=== PATIENT | female | born 1950 | race Caucasian/White ===

== ENCOUNTER 2016-10-21 10:50 | Inpatient (IN) | payer MEDICARE, BC ==
[~2016-10-21] VITALS: Ht 162.6 cm; Wt 80.3 kg
[2016-10-21] VITALS (8 sets, daily range): BP systolic 123–164; BP diastolic 47–72
[~2016-10-21 10:50] MED LIST: ACET-704 PO; ACET1TAB33 PO; ACET500T33 PO; AMLO25PO MC; AMLO5TAB2 PO; ASPI-482 PO; CALC667T PO; CRAN200C2 PO; CRESTOR5 MG PO; DIPH25TA64 PO; FURO40TA4 PO; GABA-586 PO; HYDR-2758 PO; INSU100V8 SQ; LISI40TA PO; METO2.5T PO; POTA20TA12 PO
[2016-10-21] MEDS ORDERED: ASPIRIN CHEWABLE 81 MG TABLET. PO ONE (11:00)
--- NOTE | 2016-10-21 11:13 | EKG ---
[facility] [address] [place] [address] Test Date: 2016-10-21 Test Time: 10:55:26 Pat Name: IDANE CARLSON Department: Room: Gender: F Reuse Technician: SHANTA : 1950 Requested By: SCOTT DEJESUS Order Number: [id number] Reading MD: Lalit Gillis Measurements Intervals [place] Rate: 84 P: 25 ID: [id number] QRS: 14 QRSD: 106 T: 154 QT: 374 QTc: 445 Interpretive Statements SINUS RHYTHM LOW LIMB LEAD VOLTAGE QRS(T) CONTOUR ABNORMALITY CONSISTENT WITH ANTEROSEPTAL INFARCT PROBABLY OLD ST & T ABNORMALITY, CONSIDER HIGH LATERAL ISCHEMIA OR LEFT VENTRICULAR STRAIN INFERIOR ISCHEMIA OR LEFT VENTRICULAR STRAIN ABNORMAL ECG RI6.01 Compared to ECG 08/18/2013 13:59:22 Left-axis deviation no longer present Electronically Signed On 10-21-2016 17:19:23 CDT by Lalit Gillis
--- NOTE | 2016-10-21 11:29 | RAD ---
AP chest radiograph 10/21/2016 Clinical indication: Chest pain. Comparison: 07/03/2010 chest radiograph Findings: Development of moderate bilateral pleural effusions and adjacent patchy opacities, likely atelectasis. No pneumothorax. Partial visualization of lower ACDF hardware. Heart size is obscured by the effusions. Left upper extremity vascular stent. Impression: Development of moderate bilateral pleural effusions and adjacent patchy opacities, likely atelectasis.
[2016-10-21 11:51] LABS: BASO # 0.1 x10^3/uL (0.0-0.2); BASO % 1 % (0-3); EOS % 3 % (0-3); LYMPH # 1.8 x10^3/uL (1.0-4.8); LYMPH % 20 % (24-48); MEAN CORPUSCULAR HEMOGLOBIN 30 pg (25-35); MEAN CORPUSCULAR HGB CONC 33 g/dL (31-37); MEAN CORPUSCULAR VOLUME 92 fL (79-100); MONO % 6 % (0-9); NEUT % 70 % (31-73); PLATELET COUNT 242 x10^3/uL (140-400); RED BLOOD COUNT 2.13 x10^6/uL (3.50-5.40); RED CELL DISTRIBUTION WIDTH 15.3 % (11.5-14.5); WHITE BLOOD COUNT 9.3 x10^3/uL (4.0-11.0)
[2016-10-21 11:58] LABS: HEMATOCRIT 19.6 % (36.0-47.0); HEMOGLOBIN 6.4 g/dL (12.0-15.5)
[2016-10-21 12:04] LABS: CALCIUM 8.8 mg/dL (8.5-10.1); CREATININE 6.7 mg/dL (0.6-1.0); GFR 6.2; POTASSIUM 5.3 mmol/L (3.5-5.1)
[2016-10-21 12:09] LABS: DIRECT BILIRUBIN 0.1 mg/dL (0.0-0.2); TOTAL BILIRUBIN 0.2 mg/dL (0.2-1.0); TOTAL PROTEIN 5.6 g/dL (6.4-8.2)
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
--- NOTE | 2016-10-21 13:19 | ACF ---
Admit Criteria Forms Admit Criteria Forms Admit Criteria Forms CHEST PAIN Clinical Indications for Admission to Inpatient Care (Place 'X' for any and all applicable criteria): Admission is indicated for chest pain and ANY ONE of the following(1)(2)(3)(4)(5 ): [ ]I. Angina with acute coronary syndrome (Also use Myocardial Infarction or Angina guideline) [ ]II. Hemodynamic instability [ ]III. Angina needing acute intervention as indicated by ALL of the following( 11)(12): [ ]a) Unstable angina is present as indicated by angina that is ANY ONE of the following: [ ]i) New onset [ ]ii) Nocturnal [ ]iii) Prolonged at rest [ ]iv) Progressive [ ]b) Angina warrants acute intervention as indicated by ANY ONE of the following: [ ]i) Recurrent angina (e.g, not responding as previously to treatment) [ ]ii) Angina at rest or with low-level activities despite initial medical therapy [ ]iii) New or presumably new ST-segment depression on ECG [ ]iv) Signs or symptoms of heart failure (eg, dyspnea, pulmonary edema) [ ]v) New or worsening mitral regurgitation [ ]vi) Hemodynamic instability [ ]vii) Dangerous arrhythmia (eg, sustained ventricular tachycardia) [ ]viii) History of percutaneous coronary intervention within 6 months [ ]ix) History of coronary artery bypass graft surgery [ ]x) SCOTT risk score of 2 or greater[A] [ ]xi) History of Diabetes(14) [ ]xii) High-risk cardiac ischemia findings on noninvasive testing (e.g, echocardiogram, treadmill testing, nuclear scan) [ ]xiii) Chronic renal insufficiency (ie, estimated GFR less than 60 mL/min/1.732m) [ ]xiv) Left ventricular ejection fraction less than 40% [ X]IV. Evidence of IL (eg, cardiac biomarkers positive, ST-segment elevation on ECG) also use Myocardial Infarction Criteria Form. [ ]V. Pulmonary edema [ ]. Respiratory distress [ ]VII. Chest pain indicative of serious diagnosis other than coronary artery disease (eg, aortic dissection) [ ]VIII. Contraindications and/or Inappropriate clinical situations for Observational Care in patients with Chest Pain, when ANY ONE of the following is required: [ ]a) Patient with risk factor for pulmonary embolism, acute coronary syndrome and myocardial infarction (18) [ ]b) Patient with Pulmonary embolism require an average LOS of 4.3 days, therefore emergency department observation management is inappropriate 18,23 [ ]c) Painful condition/s in the elderly, have the highest rate of recidivism after emergency department observation management (10.8%) 20,21,22 [ ]d) Elevated cardiac biomarker requires intensive and exhaustive care (19) [ ]IX. General contraindications and/or Inappropriate clinical situations for Observational Care in patients with Chest Pain, when ANY ONE of the following is required: [ ]a) Prediction of prolongation of LOS based on ANY ONE of the following may be considered as a contraindication for observational care 2, 3, 4, 5, 6, 7, 8, 9, 10, 11 [ ]i) Age > 65 yrs. [ ]ii) Patient arriving by ambulance [ ]iii) Patient with high acuity [ ]iv) Patient requiring vital sign monitoring [ ]v) Patient on IV medication [ ]b) Systolic blood pressures 180mmHg 3,12 [ ]c) Patient with altered mental status including delirium and other alteration of consciousness, (3) [ ]d) Patient whose discharge disposition will be to a detention home or rehabilitation home should not be managed in Emergency Department Observation Unit. CMS rule requires 3 days hospital stay before such placement. 3,13 [ ]e) Patient with failure to thrive due to broad array of etiologies 3,16,17 [ ]f) Inability to ambulate 3,14 Extended stay beyond goal length of stay may be needed for (1)(28): [ ]a) Specific condition diagnosed after evaluation (eg, pulmonary embolism, aortic dissection) [ ]b) Unstable angina [ ]c) Continued suspicion of acute coronary syndrome with inability to complete needed cardiac evaluation (eg, patient clinically unable to undergo stress testing) [ ]d) Myocardial infarction (Contents from ANGINA and CHEST PAIN clinical indications for admission to inpatient care have been integrated in this form) The original [employer] content created by [employer] has been revised. The portions of the content which have been revised are identified through the use of italic text or in bold, and [email or web address] has neither reviewed nor approved the modified material. All other unmodified content is copyright [employer]. Please see references footnoted in the original [email or web address] edition 2016 WALKER MOTLEY Oct 21, 2016 13:19
[2016-10-21 13:20] LABS: CHOLESTEROL/HDL RATIO 3.7
[2016-10-21 13:28] LABS: INR 1.1 (0.8-1.1); PROTHROMBIN TIME PATIENT 13.7 SEC (11.7-14.0)
[2016-10-21 13:31] LABS: BILIRUBIN,URINE NEGATIVE (NEG); GLUCOSE,URINE 250 mg/dL (NEG); NITRITE,URINE NEGATIVE (NEG); PROTEIN,URINE >=300 mg/dL (NEG-TRACE); UROBILINOGEN,URINE 0.2 mg/dL (0.2 mg/dL)
[2016-10-21 13:51] LABS: BACTERIA,URINE MOD /HPF (0-FEW); RBC,URINE 0 /HPF (0-2); SQUAMOUS EPITHELIAL CELL,UR MOD /LPF; WBC,URINE OCC /HPF (0-4)
[2016-10-21] MEDS ORDERED: hydrALAZINE 20 MG/ML VIAL. IVP PRN ×2 (14:30→14:45)
[2016-10-21] MEDS ORDERED: DOCUSATE SODIUM 100 MG CAPSULE. PO PRN (14:45)
[2016-10-21] MEDS ORDERED: ACETAMINOPHEN 325 MG TABLET. PO PRN (14:45)
[2016-10-21] MEDS ORDERED: ONDANSETRON PF 4 MG/2 ML VIAL. IV PRN ×2 (14:45)
--- NOTE | 2016-10-21 14:55 | PDOC1 ---
History and Physical Date of Admission Date of Admission 10/21/16 Identification/Chief Complaint Chief Complaint sob, chest tightness Problems: Source Source: Chart review, Patient History of Present Illness History of Present Illness 66yo F, with h/o dm but not on meds any more, ESRD on HD TTSat, came to ER FOR SOB and chest pain. She missed her HD last thursday since mother in law , and today. She started to feel sob for 1 week, when she lies down and exertional walking from one room to another room. Current smoker 1ppd, NO HOME o2, with mild cough, not severe. Also feels chest tightness, not really pain, no diaphoresis, no N/V, no radiation. noticed bl leg edema worse recently. said seen card recently got echo, and was told stable but no details. no fever, chills, diarrhea. known anemia, but never know hb was low to todays number 6.4. Past Medical History Cardiovascular: HTN, Valve insufficiency, Other (Carotid artery disease) Pulmonary: No pertinent hx CENTRAL NERVOUS SYSTEM: Other (No pertinent history) GI: No pertinent hx Heme/Onc: Anemia NOS Hepatobiliary: No pertinent hx Psych: Depression Rheumatologic: No pertinent hx Infectious disease: No pertinent hx ENT: Allergic Rhinitis Renal/: Chronic renal failure Endocrine: Diabetes (2) Dermatology: No pertinent hx Past Surgical History Past Surgical History: Arthroscopy (right RTC repair), Cholecystectomy, Tonsillectomy, Hysterectomy, Other (anterior cervical fusion; lumbar decompression; LAV dialysis fistula 06/2015; 06/2016 left subclavian artery [employer] [facility] [facility]/ stent) Family History Family History: Diabetes Social History Smoke: 1 pack per day (>40 pk yr) ALCOHOL: none Drugs: None Current Medications Current Medications Current Medications Medications (Trade) Dose Ordered Sig/Liza Start Time Stop Time Status Last Admin Dose Admin Aspirin (Children'S Aspirin) 324 mg 1X ONCE 10/21/16 11:00 10/21/16 11:01 DC 10/21/16 11:49 324 MG Hydralazine HCl (Apresoline) 10 mg PRN Q4HRS PRN 10/21/16 14:30 Allergies Allergies Allergies Coded Allergies Type Severity Reaction Last Updated Verified ciprofloxacin Allergy Intermediate Rash 01/25/15 Yes morphine Adverse Reaction Severe makes her skin crawl 01/25/15 Yes oxycodone Adverse Reaction Severe makes her skin crawl 01/25/15 Yes adhesive Adverse Reaction Intermediate blisters 01/25/15 Yes ROS Review of System CONSTITUTIONAL: No fever or chills EYES: No recent changes SKIN: No rash or itching CARDIOVASCULAR: No chest pain, syncope, palpitations, or edema RESPIRATORY: No SOB or cough GASTROINTESTINAL: No nausea, vomiting or abdominal pain NEUROLOGICAL: No headaches or weakness ENDOCRINE: No cold or heat intolerance GENITOURINARY: No urgency or frequency of urination MUSCULOSKELETAL: No back pain or joint pain LYMPHATICS: No enlarged lymph nodes PSYCHIATRIC: No anxiety or depression Physical Exam Physical Exam GEN.: No apparent distress. Alert and oriented. HEENT: Head is normocephalic, atraumatic NECK: Supple. LUNGS: bl decreased bs HEART: RRR, S1, S2 present. Peripheral pulses intact ABDOMEN: Soft, nontender. Positive bowel sounds. EXTREMITIES: Without any cyanosis. bl leg 1+ pitting edema NEUROLOGIC: Normal speech, normal tone PSYCHIATRIC: Normal affect, normal mood. SKIN: No ulcerations Vitals Vitals Vital Signs Date Time Temp Pulse Resp B/P (MAP) Pulse Ox O2 Delivery O2 Flow Rate FiO2 10/21/16 13:28 72 20 135/64 (87) 94 Room Air 10/21/16 11:08 98.0 98.0 Labs Labs Laboratory Tests Test 10/21/16 11:40 10/21/16 13:22 White Blood Count 9.3 x10^3/uL (4.0-11.0) Red Blood Count 2.13 x10^6/uL (3.50-5.40) Hemoglobin 6.4 g/dL (12.0-15.5) Hematocrit 19.6 % (36.0-47.0) Mean Corpuscular Volume 92 fL (79-100) Mean Corpuscular Hemoglobin 30 pg (25-35) Mean Corpuscular Hemoglobin Concent 33 g/dL (31-37) Red Cell Distribution Width 15.3 % (11.5-14.5) Platelet Count 242 x10^3/uL (140-400) Neutrophils (%) (Auto) 70 % (31-73) Lymphocytes (%) (Auto) 20 % (24-48) Monocytes (%) (Auto) 6 % (0-9) Eosinophils (%) (Auto) 3 % (0-3) Basophils (%) (Auto) 1 % (0-3) Neutrophils # (Auto) 6.4 x10^3uL (1.8-7.7) Lymphocytes # (Auto) 1.8 x10^3/uL (1.0-4.8) Monocytes # (Auto) 0.6 x10^3/uL (0.0-1.1) Eosinophils # (Auto) 0.3 x10^3/uL (0.0-0.7) Basophils # (Auto) 0.1 x10^3/uL (0.0-0.2) Prothrombin Time 13.7 SEC (11.7-14.0) Prothromb Time International Ratio 1.1 (0.8-1.1) Sodium Level 139 mmol/L (136-145) Potassium Level 5.3 mmol/L (3.5-5.1) Chloride Level 107 mmol/L (98-107) Carbon Dioxide Level 25 mmol/L (21-32) Anion Gap 7 (6-14) Blood Urea Nitrogen 60 mg/dL (7-20) Creatinine 6.7 mg/dL (0.6-1.0) Estimated GFR (Cockcroft-Gault) 6.2 Glucose Level 167 mg/dL (70-99) Calcium Level 8.8 mg/dL (8.5-10.1) Magnesium Level 2.0 mg/dL (1.8-2.4) Total Bilirubin 0.2 mg/dL (0.2-1.0) Direct Bilirubin 0.1 mg/dL (0.0-0.2) Aspartate Amino Transf (AST/SGOT) 11 U/L (15-37) Alanine Aminotransferase (ALT/SGPT) 15 U/L (14-59) Alkaline Phosphatase 123 U/L (46-116) Troponin I Quantitative 0.928 ng/mL (0.000-0.055) NP-Axm-V-Type Natriuretic Peptide 76189 pg/mL (0-124) Total Protein 5.6 g/dL (6.4-8.2) Albumin 2.0 g/dL (3.4-5.0) Triglycerides Level 115 mg/dL (0-150) Cholesterol Level 136 mg/dL (0-200) LDL Cholesterol, Calculated 76 mg/dL (0-100) VLDL Cholesterol, Calculated 23 mg/dL (0-40) Non-HDL Cholesterol Calculated 99 mg/dL (0-129) HDL Cholesterol 37 mg/dL (40-60) Cholesterol/HDL Ratio 3.7 Lipase 114 U/L (73-393) Urine Collection Type Unknown Urine Color Yellow Urine Clarity Hazy Urine pH 7.0 Urine Specific [place] 1.015 Urine Protein >=300 mg/dL (NEG-TRACE) Urine Glucose (UA) 250 mg/dL (NEG) Urine Ketones (Stick) Negative mg/dL (NEG) Urine Blood Trace (NEG) Urine Nitrite Negative (NEG) Urine Bilirubin Negative (NEG) Urine Urobilinogen Dipstick 0.2 mg/dL (0.2 mg/dL) Urine Leukocyte Esterase Negative (NEG) Urine RBC 0 /HPF (0-2) Urine WBC Occ /HPF (0-4) Urine Squamous Epithelial Cells Mod /LPF Urine Bacteria Mod /HPF (0-FEW) Laboratory Tests Test 10/21/16 11:40 10/21/16 13:22 White Blood Count 9.3 x10^3/uL (4.0-11.0) Red Blood Count 2.13 x10^6/uL (3.50-5.40) Hemoglobin 6.4 g/dL (12.0-15.5) Hematocrit 19.6 % (36.0-47.0) Mean Corpuscular Volume 92 fL (79-100) Mean Corpuscular Hemoglobin 30 pg (25-35) Mean Corpuscular Hemoglobin Concent 33 g/dL (31-37) Red Cell Distribution Width 15.3 % (11.5-14.5) Platelet Count 242 x10^3/uL (140-400) Neutrophils (%) (Auto) 70 % (31-73) Lymphocytes (%) (Auto) 20 % (24-48) Monocytes (%) (Auto) 6 % (0-9) Eosinophils (%) (Auto) 3 % (0-3) Basophils (%) (Auto) 1 % (0-3) Neutrophils # (Auto) 6.4 x10^3uL (1.8-7.7) Lymphocytes # (Auto) 1.8 x10^3/uL (1.0-4.8) Monocytes # (Auto) 0.6 x10^3/uL (0.0-1.1) Eosinophils # (Auto) 0.3 x10^3/uL (0.0-0.7) Basophils # (Auto) 0.1 x10^3/uL (0.0-0.2) Prothrombin Time 13.7 SEC (11.7-14.0) Prothromb Time International Ratio 1.1 (0.8-1.1) Sodium Level 139 mmol/L (136-145) Potassium Level 5.3 mmol/L (3.5-5.1) Chloride Level 107 mmol/L (98-107) Carbon Dioxide Level 25 mmol/L (21-32) Anion Gap 7 (6-14) Blood Urea Nitrogen 60 mg/dL (7-20) Creatinine 6.7 mg/dL (0.6-1.0) Estimated GFR (Cockcroft-Gault) 6.2 Glucose Level 167 mg/dL (70-99) Calcium Level 8.8 mg/dL (8.5-10.1) Magnesium Level 2.0 mg/dL (1.8-2.4) Total Bilirubin 0.2 mg/dL (0.2-1.0) Direct Bilirubin 0.1 mg/dL (0.0-0.2) Aspartate Amino Transf (AST/SGOT) 11 U/L (15-37) Alanine Aminotransferase (ALT/SGPT) 15 U/L (14-59) Alkaline Phosphatase 123 U/L (46-116) Troponin I Quantitative 0.928 ng/mL (0.000-0.055) VO-Kym-X-Type Natriuretic Peptide 50297 pg/mL (0-124) Total Protein 5.6 g/dL (6.4-8.2) Albumin 2.0 g/dL (3.4-5.0) Triglycerides Level 115 mg/dL (0-150) Cholesterol Level 136 mg/dL (0-200) LDL Cholesterol, Calculated 76 mg/dL (0-100) VLDL Cholesterol, Calculated 23 mg/dL (0-40) Non-HDL Cholesterol Calculated 99 mg/dL (0-129) HDL Cholesterol 37 mg/dL (40-60) Cholesterol/HDL Ratio 3.7 Lipase 114 U/L (73-393) Urine Collection Type Unknown Urine Color Yellow Urine Clarity Hazy Urine pH 7.0 Urine Specific [place] 1.015 Urine Protein >=300 mg/dL (NEG-TRACE) Urine Glucose (UA) 250 mg/dL (NEG) Urine Ketones (Stick) Negative mg/dL (NEG) Urine Blood Trace (NEG) Urine Nitrite Negative (NEG) Urine Bilirubin Negative (NEG) Urine Urobilinogen Dipstick 0.2 mg/dL (0.2 mg/dL) Urine Leukocyte Esterase Negative (NEG) Urine RBC 0 /HPF (0-2) Urine WBC Occ /HPF (0-4) Urine Squamous Epithelial Cells Mod /LPF Urine Bacteria Mod /HPF (0-FEW) VTE Prophylaxis Ordered VTE Prophylaxis Devices: Yes VTE Pharmacological Prophylaxi: Yes Assessment/Plan Assessment/Plan dyspnea, likely 2/2 acute CHF exacerbation, possible diastolic, also missed HD with possible pulmanory edema normocytic anemia, esrd chest tightness, with pulmanory edema likely elevated troponin with chf, esrd ESRD on hd tts hyperkalemia mild malnutrition dm2, not on meds hld Hx of recent [employer] [facility]/stent to lef subclavian artery tobaccoism plan; card, renal consult will do 2u prbc transfusion today, need hd HD tts cont home meds ssi anemia work up dvt ppx cycle CE TTE per card, need old card records admit >2nights labs tmr SAVANNAH LOPEZ MD Oct 21, 2016 14:55
[2016-10-21 15:00] LABS: % SAT IRON 23 % (15-34); IRON,SERUM 50 ug/dL (50-170)
[2016-10-21] MEDS ORDERED: DEXTROSE 50% 25 GM / 50ML DISP.SYRIN. IV PRN (15:00)
[2016-10-21] MEDS: ASPIRIN ENTERIC COATED 81 MG TABLET.DR. PO SCH (15:00)
[2016-10-21] MEDS ORDERED: POTASSIUM CHLORIDE 20 MEQ TABLET.ER. PO PRN (15:00)
[2016-10-21] MEDS ORDERED: metOLazone 2.5 MG TABLET PO PRN (15:00)
[2016-10-21] MEDS ORDERED: CLOP75TA57 PO (15:24)
[2016-10-21] MEDS: HEPARIN PF for SUB-Q USE 5,000 UNIT/0.5 ML VIAL. SQ SCH ×2 (16:00→22:00)
[2016-10-21] MEDS: INSULIN ASPART 300 UNITS/3 ML INSULN.PEN SQ SCH (17:00)
[2016-10-21] MEDS: CALCIUM ACETATE 667 MG CAPSULE PO SCH (17:00)
--- NOTE | 2016-10-21 17:44 | PHYS DOC ---
Past Medical History Past Medical History: Diabetes-Type II, Hypertension, Renal Failure Alcohol Use: None Drug Use: None Adult General Chief Complaint Chief Complaint: CHEST PAIN HPI HPI 66-year-old female presenting to the emergency department today with chest pain and shortness of breath started this weekend. She reports missing dialysis on Thursday. She has a history of end-stage renal disease. The pain is a dull sensation that is approximately 3 or 4 out of 10. It is nonradiating mild and intermittent. Shortness of breath is worse with exertion and improved with rest. Review of systems is negative for abdominal pain nausea vomiting diaphoresis fevers or chills. All other review of systems is negative unless otherwise noted in history of present illness. ED course: 66-year-old female presenting to the emergency department today with chest pain. Afebrile saturating 92% on room air. Hypertension present which is chronic. EKG obtained which shows sinus rhythm with a regular rate. Mild repolarization in the anterior leads. ST segment with upwards concavity. Does not meet STEMI criteria. Troponin came back as positive at 0.9. I discussed the case with the CABLE [employer]ER for our cardiology group who came to evaluate the patient. The patient received aspirin in the emergency room. I called and discussed the case with Dr. Mora who stated the patient was going to receive dialysis. CBC shows significant anemia. Transfusion ordered. Patient will likely need fecal occult blood testing deferred to admitting provider. Otherwise the patient was then admitted to the cardiovascular care unit for further evaluation workup and care. Review of Systems Review of Systems SEE ABOVE. Current Medications Current Medications Current Medications Medications (Trade) Dose Ordered Sig/Liza Start Time Stop Time Status Last Admin Dose Admin Aspirin (Children'S Aspirin) 324 mg 1X ONCE 10/21/16 11:00 10/21/16 11:01 DC 10/21/16 11:49 324 MG Allergies Allergies Allergies Coded Allergies Type Severity Reaction Last Updated Verified ciprofloxacin Allergy Intermediate Rash 01/25/15 Yes morphine Adverse Reaction Severe makes her skin crawl 01/25/15 Yes oxycodone Adverse Reaction Severe makes her skin crawl 01/25/15 Yes adhesive Adverse Reaction Intermediate blisters 01/25/15 Yes Physical Exam Physical Exam SEE ABOVE Constitutional: Well developed, well nourished, no acute distress, non-toxic appearance. [] HENT: Normocephalic, atraumatic, bilateral external ears normal, oropharynx moist, no oral exudates, nose normal. [] Eyes: PERRLA, EOMI, conjunctiva normal, no discharge. [] Neck: Normal range of motion, no tenderness, supple, no stridor. [] Cardiovascular:Heart rate regular rhythm, no murmur [] Lungs & Thorax: Mild crackles on pulmonary exam. Abdomen: Bowel sounds normal, soft, no tenderness, no masses, no pulsatile masses. [] Skin: Warm, dry, no erythema, no rash. [] Back: No tenderness, no CVA tenderness. [] Extremities: No tenderness, no cyanosis, no clubbing, ROM intact, no edema. [] Neurologic: Alert and oriented X 3, normal motor function, normal sensory function, no focal deficits noted. [] Psychologic: Affect normal, judgement normal, mood normal. [] Current Patient Data Vital Signs Vital Signs Date Time Temp Pulse Resp B/P (MAP) Pulse Ox O2 Delivery O2 Flow Rate FiO2 10/21/16 12:30 72 20 146/63 (90) 93 Room Air 10/21/16 11:08 98.0 98.0 Lab Values Laboratory Tests Test 10/21/16 11:40 White Blood Count 9.3 x10^3/uL (4.0-11.0) Red Blood Count 2.13 x10^6/uL (3.50-5.40) L Hemoglobin 6.4 g/dL (12.0-15.5) *L Hematocrit 19.6 % (36.0-47.0) *L Mean Corpuscular Volume 92 fL (79-100) Mean Corpuscular Hemoglobin 30 pg (25-35) Mean Corpuscular Hemoglobin Concent 33 g/dL (31-37) Red Cell Distribution Width 15.3 % (11.5-14.5) H Platelet Count 242 x10^3/uL (140-400) Neutrophils (%) (Auto) 70 % (31-73) Lymphocytes (%) (Auto) 20 % (24-48) L Monocytes (%) (Auto) 6 % (0-9) Eosinophils (%) (Auto) 3 % (0-3) Basophils (%) (Auto) 1 % (0-3) Neutrophils # (Auto) 6.4 x10^3uL (1.8-7.7) Lymphocytes # (Auto) 1.8 x10^3/uL (1.0-4.8) Monocytes # (Auto) 0.6 x10^3/uL (0.0-1.1) Eosinophils # (Auto) 0.3 x10^3/uL (0.0-0.7) Basophils # (Auto) 0.1 x10^3/uL (0.0-0.2) Prothrombin Time 13.7 SEC (11.7-14.0) Prothrombin Time INR 1.1 (0.8-1.1) Sodium Level 139 mmol/L (136-145) Potassium Level 5.3 mmol/L (3.5-5.1) H Chloride Level 107 mmol/L (98-107) Carbon Dioxide Level 25 mmol/L (21-32) Anion Gap 7 (6-14) Blood Urea Nitrogen 60 mg/dL (7-20) H Creatinine 6.7 mg/dL (0.6-1.0) H Estimated GFR (Cockcroft-Gault) 6.2 Glucose Level 167 mg/dL (70-99) H Calcium Level 8.8 mg/dL (8.5-10.1) Magnesium Level 2.0 mg/dL (1.8-2.4) Iron Level 50 ug/dL (50-170) Total Iron Binding Capacity 218 ug/dL (250-450) L Iron Saturation 23 % (15-34) Total Bilirubin 0.2 mg/dL (0.2-1.0) Direct Bilirubin 0.1 mg/dL (0.0-0.2) Aspartate Amino Transferase (AST) 11 U/L (15-37) L Alanine Aminotransferase (ALT) 15 U/L (14-59) Alkaline Phosphatase 123 U/L (46-116) H Troponin I Quantitative 0.928 ng/mL (0.000-0.055) GH-Spz-T-Type Natriuretic Peptide 79884 pg/mL (0-124) H Total Protein 5.6 g/dL (6.4-8.2) L Albumin 2.0 g/dL (3.4-5.0) L Triglycerides Level 115 mg/dL (0-150) Cholesterol Level 136 mg/dL (0-200) LDL Cholesterol, Calculated 76 mg/dL (0-100) VLDL Cholesterol, Calculated 23 mg/dL (0-40) Non-HDL Cholesterol Calculated 99 mg/dL (0-129) HDL Cholesterol 37 mg/dL (40-60) L Cholesterol/HDL Ratio 3.7 Lipase 114 U/L (73-393) Laboratory Tests 10/21/16 11:40 Laboratory Tests 10/21/16 11:40 EKG EKG [] Radiology/Procedures Radiology/Procedures [] Course & Med Decision Making Course & Med Decision Making Pertinent Labs and Imaging studies reviewed. (See chart for details) [] Dragon Disclaimer Dragon Disclaimer This electronic medical record was generated, in whole or in part, using a voice recognition dictation system. Departure Departure Impression: Primary Impression: Chest pain Additional Impressions: Non-STEMI (non-ST elevated myocardial infarction) CHF exacerbation Volume overload Disposition: 09 ADMITTED INPATIENT Admitting Physician: Daksha Mcmahon Condition: STABLE Referrals: ALESIA ZVAALA NP (PCP) Problem Qualifiers SCOTT DEJESUS MD Oct 21, 2016 17:44
[2016-10-21] MEDS ORDERED: NON FORMULARY ITEM (Cranberry Extract (Cranberry) 200 MG) PO SCH (21:00)
[2016-10-21] MEDS ORDERED: LISINOPRIL 20 MG TABLET PO SCH (21:00)
[2016-10-21] MEDS ORDERED: IV NORMAL SALINE 1000ML BAG 1,000 ML IV PRN ×2 (21:57)
[2016-10-21] MEDS ORDERED: DIALYSIS PATIENT. MC PRN ×2 (22:00)
[2016-10-22] VITALS (7 sets, daily range): BP systolic 124–156; BP diastolic 46–67
[2016-10-22] MEDS: LISINOPRIL 40 MG TABLET. PO SCH (00:21)
[2016-10-22] MEDS: ATORVASTATIN CALCIUM 20 MG TABLET PO SCH ×2 (00:21→21:22)
[2016-10-22 01:21] LABS: BASO # 0.1 x10^3/uL (0.0-0.2); BASO % 1 % (0-3); EOS % 3 % (0-3); HEMATOCRIT 25.9 % (36.0-47.0); HEMOGLOBIN 8.8 g/dL (12.0-15.5); LYMPH # 2.1 x10^3/uL (1.0-4.8); LYMPH % 24 % (24-48); MEAN CORPUSCULAR HEMOGLOBIN 30 pg (25-35); MEAN CORPUSCULAR HGB CONC 34 g/dL (31-37); MEAN CORPUSCULAR VOLUME 88 fL (79-100); MONO % 8 % (0-9); NEUT % 64 % (31-73); PLATELET COUNT 221 x10^3/uL (140-400); RED BLOOD COUNT 2.95 x10^6/uL (3.50-5.40); RED CELL DISTRIBUTION WIDTH 15.7 % (11.5-14.5); WHITE BLOOD COUNT 8.7 x10^3/uL (4.0-11.0)
[2016-10-22 01:33] LABS: CALCIUM 8.3 mg/dL (8.5-10.1); CREATININE 3.8 mg/dL (0.6-1.0); GFR 11.9; POTASSIUM 3.9 mmol/L (3.5-5.1)
[2016-10-22 01:46] LABS: INR 1.1 (0.8-1.1); PROTHROMBIN TIME PATIENT 13.4 SEC (11.7-14.0)
--- NOTE | 2016-10-22 05:06 | EKG ---
[facility] [address] [place] [id number] Test Date: 2016-10-22 Test Time: 04:56:53 Pat Name: DIANE CARLSON Department: Room: 210 1 Gender: F Signals Collection Technician: MAKAYLA : 1950 Requested By: PATRICE HA Order Number: [id number] Reading MD: Lalit Gillis Measurements Intervals [place] Rate: 66 P: 48 IN: 162 QRS: 31 QRSD: 106 T: 159 QT: 414 QTc: 436 Interpretive Statements SINUS RHYTHM LOW LIMB LEAD VOLTAGE QRS(T) CONTOUR ABNORMALITY CONSISTENT WITH ANTEROSEPTAL INFARCT PROBABLY OLD ST & T ABNORMALITY, CONSIDER ANTEROLATERAL ISCHEMIA OR LEFT VENTRICULAR STRAIN INFEROLATERAL ISCHEMIA OR LEFT VENTRICULAR STRAIN ABNORMAL ECG RI6.01 Compared to ECG 10/21/2016 10:55:26 No significant changes Electronically Signed On 10-23-2016 15:41:14 CDT by Lalit Gillis
[2016-10-22] MEDS: HEPARIN PF for SUB-Q USE 5,000 UNIT/0.5 ML VIAL. SQ SCH ×3 (06:00→21:26)
[2016-10-22] MEDS: INSULIN ASPART 300 UNITS/3 ML INSULN.PEN SQ SCH ×3 (08:00→17:00)
[2016-10-22] MEDS: GABAPENTIN 300 MG CAPSULE. PO SCH (10:11)
[2016-10-22] MEDS: ASPIRIN ENTERIC COATED 81 MG TABLET.DR. PO SCH (10:11)
[2016-10-22] MEDS: CLOPIDOGREL BISULFATE 75 MG TABLET PO SCH (10:11)
[2016-10-22] MEDS: CALCIUM ACETATE 667 MG CAPSULE PO SCH ×2 (10:11→17:48)
--- NOTE | 2016-10-22 11:05 | PDOC ---
PROGRESS NOTES Chief Complaint Chief Complaint NSTEMI, demand, dyspnea, likely 2/2 acute CHF exacerbation, possible diastolic, also missed HD with possible pulmanory edema normocytic anemia, esrd anemia of CKD chest tightness, pain elevated troponin with chf, esrd ESRD on hd tts hyperkalemia mild malnutrition dm2, not on meds hld Hx of recent [employer]/stent to lef subclavian artery tobaccoism History of Present Illness History of Present Illness MPI pending, had hot tea this morning on accident, try tomorrow trop 1.4 s/p 2u prbc transfusion, hgb better, goals explained to pt, HD tts per renal cont home meds dvt ppx TTE per card, need old card records Vitals Vitals Vital Signs Date Time Temp Pulse Resp B/P (MAP) Pulse Ox O2 Delivery O2 Flow Rate FiO2 10/22/16 11:00 98.0 64 18 156/57 (90) 97 Room Air 98.0 Physical Exam General: Alert, Oriented X3, Cooperative, mild distress Heart: Regular rate (SR), Normal S1, Normal S2, Other (S4; MARCY/erbs loudest 4/ 6 systolic murmur) Lungs: Clear Abdomen: Soft Extremities: No cyanosis, Other (2-3+ bilateral LE pitting edema) Skin: No breakdown, No significant lesion Labs LABS Laboratory Tests Test 10/21/16 11:40 10/21/16 13:22 10/21/16 17:02 10/21/16 17:50 White Blood Count 9.3 x10^3/uL (4.0-11.0) Red Blood Count 2.13 x10^6/uL (3.50-5.40) Hemoglobin 6.4 g/dL (12.0-15.5) Hematocrit 19.6 % (36.0-47.0) Mean Corpuscular Volume 92 fL (79-100) Mean Corpuscular Hemoglobin 30 pg (25-35) Mean Corpuscular Hemoglobin Concent 33 g/dL (31-37) Red Cell Distribution Width 15.3 % (11.5-14.5) Platelet Count 242 x10^3/uL (140-400) Neutrophils (%) (Auto) 70 % (31-73) Lymphocytes (%) (Auto) 20 % (24-48) Monocytes (%) (Auto) 6 % (0-9) Eosinophils (%) (Auto) 3 % (0-3) Basophils (%) (Auto) 1 % (0-3) Neutrophils # (Auto) 6.4 x10^3uL (1.8-7.7) Lymphocytes # (Auto) 1.8 x10^3/uL (1.0-4.8) Monocytes # (Auto) 0.6 x10^3/uL (0.0-1.1) Eosinophils # (Auto) 0.3 x10^3/uL (0.0-0.7) Basophils # (Auto) 0.1 x10^3/uL (0.0-0.2) Prothrombin Time 13.7 SEC (11.7-14.0) Prothromb Time International Ratio 1.1 (0.8-1.1) Sodium Level 139 mmol/L (136-145) Potassium Level 5.3 mmol/L (3.5-5.1) Chloride Level 107 mmol/L (98-107) Carbon Dioxide Level 25 mmol/L (21-32) Anion Gap 7 (6-14) Blood Urea Nitrogen 60 mg/dL (7-20) Creatinine 6.7 mg/dL (0.6-1.0) Estimated GFR (Cockcroft-Gault) 6.2 Glucose Level 167 mg/dL (70-99) Calcium Level 8.8 mg/dL (8.5-10.1) Magnesium Level 2.0 mg/dL (1.8-2.4) Iron Level 50 ug/dL (50-170) Total Iron Binding Capacity 218 ug/dL (250-450) Iron Saturation 23 % (15-34) Total Bilirubin 0.2 mg/dL (0.2-1.0) Direct Bilirubin 0.1 mg/dL (0.0-0.2) Aspartate Amino Transf (AST/SGOT) 11 U/L (15-37) Alanine Aminotransferase (ALT/SGPT) 15 U/L (14-59) Alkaline Phosphatase 123 U/L (46-116) Troponin I Quantitative 0.928 ng/mL (0.000-0.055) 0.989 ng/mL (0.000-0.055) BK-Aoh-U-Type Natriuretic Peptide 16584 pg/mL (0-124) Total Protein 5.6 g/dL (6.4-8.2) Albumin 2.0 g/dL (3.4-5.0) Triglycerides Level 115 mg/dL (0-150) Cholesterol Level 136 mg/dL (0-200) LDL Cholesterol, Calculated 76 mg/dL (0-100) VLDL Cholesterol, Calculated 23 mg/dL (0-40) Non-HDL Cholesterol Calculated 99 mg/dL (0-129) HDL Cholesterol 37 mg/dL (40-60) Cholesterol/HDL Ratio 3.7 Lipase 114 U/L (73-393) Urine Collection Type Unknown Urine Color Yellow Urine Clarity Hazy Urine pH 7.0 Urine Specific [place] 1.015 Urine Protein >=300 mg/dL (NEG-TRACE) Urine Glucose (UA) 250 mg/dL (NEG) Urine Ketones (Stick) Negative mg/dL (NEG) Urine Blood Trace (NEG) Urine Nitrite Negative (NEG) Urine Bilirubin Negative (NEG) Urine Urobilinogen Dipstick 0.2 mg/dL (0.2 mg/dL) Urine Leukocyte Esterase Negative (NEG) Urine RBC 0 /HPF (0-2) Urine WBC Occ /HPF (0-4) Urine Squamous Epithelial Cells Mod /LPF Urine Bacteria Mod /HPF (0-FEW) Glucose (Fingerstick) 177 mg/dL (70-99) Test 10/22/16 01:10 White Blood Count 8.7 x10^3/uL (4.0-11.0) Red Blood Count 2.95 x10^6/uL (3.50-5.40) Hemoglobin 8.8 g/dL (12.0-15.5) Hematocrit 25.9 % (36.0-47.0) Mean Corpuscular Volume 88 fL (79-100) Mean Corpuscular Hemoglobin 30 pg (25-35) Mean Corpuscular Hemoglobin Concent 34 g/dL (31-37) Red Cell Distribution Width 15.7 % (11.5-14.5) Platelet Count 221 x10^3/uL (140-400) Neutrophils (%) (Auto) 64 % (31-73) Lymphocytes (%) (Auto) 24 % (24-48) Monocytes (%) (Auto) 8 % (0-9) Eosinophils (%) (Auto) 3 % (0-3) Basophils (%) (Auto) 1 % (0-3) Neutrophils # (Auto) 5.6 x10^3uL (1.8-7.7) Lymphocytes # (Auto) 2.1 x10^3/uL (1.0-4.8) Monocytes # (Auto) 0.7 x10^3/uL (0.0-1.1) Eosinophils # (Auto) 0.2 x10^3/uL (0.0-0.7) Basophils # (Auto) 0.1 x10^3/uL (0.0-0.2) Prothrombin Time 13.4 SEC (11.7-14.0) Prothromb Time International Ratio 1.1 (0.8-1.1) Activated Partial Thromboplast Time 35 SEC (24-38) Sodium Level 139 mmol/L (136-145) Potassium Level 3.9 mmol/L (3.5-5.1) Chloride Level 103 mmol/L (98-107) Carbon Dioxide Level 32 mmol/L (21-32) Anion Gap 4 (6-14) Blood Urea Nitrogen 29 mg/dL (7-20) Creatinine 3.8 mg/dL (0.6-1.0) Estimated GFR (Cockcroft-Gault) 11.9 Glucose Level 249 mg/dL (70-99) Calcium Level 8.3 mg/dL (8.5-10.1) Ferritin 272 ng/mL (8-252) Troponin I Quantitative 1.440 ng/mL (0.000-0.055) Review of Systems Review of Systems no n,vd.' Assessment and Plan Assessmemt and Plan Problems Medical Problems: (1) Chest pain Status: Acute (2) CHF exacerbation Status: Acute (3) Non-STEMI (non-ST elevated myocardial infarction) Status: Acute (4) Volume overload Status: Acute Problems: Comment Review of Relevant I have reviewed the following items ashley (where applicable) has been applied. Labs Laboratory Tests Test 10/21/16 11:40 10/21/16 13:22 10/21/16 17:02 10/21/16 17:50 White Blood Count 9.3 x10^3/uL (4.0-11.0) Red Blood Count 2.13 x10^6/uL (3.50-5.40) Hemoglobin 6.4 g/dL (12.0-15.5) Hematocrit 19.6 % (36.0-47.0) Mean Corpuscular Volume 92 fL (79-100) Mean Corpuscular Hemoglobin 30 pg (25-35) Mean Corpuscular Hemoglobin Concent 33 g/dL (31-37) Red Cell Distribution Width 15.3 % (11.5-14.5) Platelet Count 242 x10^3/uL (140-400) Neutrophils (%) (Auto) 70 % (31-73) Lymphocytes (%) (Auto) 20 % (24-48) Monocytes (%) (Auto) 6 % (0-9) Eosinophils (%) (Auto) 3 % (0-3) Basophils (%) (Auto) 1 % (0-3) Neutrophils # (Auto) 6.4 x10^3uL (1.8-7.7) Lymphocytes # (Auto) 1.8 x10^3/uL (1.0-4.8) Monocytes # (Auto) 0.6 x10^3/uL (0.0-1.1) Eosinophils # (Auto) 0.3 x10^3/uL (0.0-0.7) Basophils # (Auto) 0.1 x10^3/uL (0.0-0.2) Prothrombin Time 13.7 SEC (11.7-14.0) Prothromb Time International Ratio 1.1 (0.8-1.1) Sodium Level 139 mmol/L (136-145) Potassium Level 5.3 mmol/L (3.5-5.1) Chloride Level 107 mmol/L (98-107) Carbon Dioxide Level 25 mmol/L (21-32) Anion Gap 7 (6-14) Blood Urea Nitrogen 60 mg/dL (7-20) Creatinine 6.7 mg/dL (0.6-1.0) Estimated GFR (Cockcroft-Gault) 6.2 Glucose Level 167 mg/dL (70-99) Calcium Level 8.8 mg/dL (8.5-10.1) Magnesium Level 2.0 mg/dL (1.8-2.4) Iron Level 50 ug/dL (50-170) Total Iron Binding Capacity 218 ug/dL (250-450) Iron Saturation 23 % (15-34) Total Bilirubin 0.2 mg/dL (0.2-1.0) Direct Bilirubin 0.1 mg/dL (0.0-0.2) Aspartate Amino Transf (AST/SGOT) 11 U/L (15-37) Alanine Aminotransferase (ALT/SGPT) 15 U/L (14-59) Alkaline Phosphatase 123 U/L (46-116) Troponin I Quantitative 0.928 ng/mL (0.000-0.055) 0.989 ng/mL (0.000-0.055) NF-Qrv-T-Type Natriuretic Peptide 13380 pg/mL (0-124) Total Protein 5.6 g/dL (6.4-8.2) Albumin 2.0 g/dL (3.4-5.0) Triglycerides Level 115 mg/dL (0-150) Cholesterol Level 136 mg/dL (0-200) LDL Cholesterol, Calculated 76 mg/dL (0-100) VLDL Cholesterol, Calculated 23 mg/dL (0-40) Non-HDL Cholesterol Calculated 99 mg/dL (0-129) HDL Cholesterol 37 mg/dL (40-60) Cholesterol/HDL Ratio 3.7 Lipase 114 U/L (73-393) Urine Collection Type Unknown Urine Color Yellow Urine Clarity Hazy Urine pH 7.0 Urine Specific [place] 1.015 Urine Protein >=300 mg/dL (NEG-TRACE) Urine Glucose (UA) 250 mg/dL (NEG) Urine Ketones (Stick) Negative mg/dL (NEG) Urine Blood Trace (NEG) Urine Nitrite Negative (NEG) Urine Bilirubin Negative (NEG) Urine Urobilinogen Dipstick 0.2 mg/dL (0.2 mg/dL) Urine Leukocyte Esterase Negative (NEG) Urine RBC 0 /HPF (0-2) Urine WBC Occ /HPF (0-4) Urine Squamous Epithelial Cells Mod /LPF Urine Bacteria Mod /HPF (0-FEW) Glucose (Fingerstick) 177 mg/dL (70-99) Test 10/22/16 01:10 White Blood Count 8.7 x10^3/uL (4.0-11.0) Red Blood Count 2.95 x10^6/uL (3.50-5.40) Hemoglobin 8.8 g/dL (12.0-15.5) Hematocrit 25.9 % (36.0-47.0) Mean Corpuscular Volume 88 fL (79-100) Mean Corpuscular Hemoglobin 30 pg (25-35) Mean Corpuscular Hemoglobin Concent 34 g/dL (31-37) Red Cell Distribution Width 15.7 % (11.5-14.5) Platelet Count 221 x10^3/uL (140-400) Neutrophils (%) (Auto) 64 % (31-73) Lymphocytes (%) (Auto) 24 % (24-48) Monocytes (%) (Auto) 8 % (0-9) Eosinophils (%) (Auto) 3 % (0-3) Basophils (%) (Auto) 1 % (0-3) Neutrophils # (Auto) 5.6 x10^3uL (1.8-7.7) Lymphocytes # (Auto) 2.1 x10^3/uL (1.0-4.8) Monocytes # (Auto) 0.7 x10^3/uL (0.0-1.1) Eosinophils # (Auto) 0.2 x10^3/uL (0.0-0.7) Basophils # (Auto) 0.1 x10^3/uL (0.0-0.2) Prothrombin Time 13.4 SEC (11.7-14.0) Prothromb Time International Ratio 1.1 (0.8-1.1) Activated Partial Thromboplast Time 35 SEC (24-38) Sodium Level 139 mmol/L (136-145) Potassium Level 3.9 mmol/L (3.5-5.1) Chloride Level 103 mmol/L (98-107) Carbon Dioxide Level 32 mmol/L (21-32) Anion Gap 4 (6-14) Blood Urea Nitrogen 29 mg/dL (7-20) Creatinine 3.8 mg/dL (0.6-1.0) Estimated GFR (Cockcroft-Gault) 11.9 Glucose Level 249 mg/dL (70-99) Calcium Level 8.3 mg/dL (8.5-10.1) Ferritin 272 ng/mL (8-252) Troponin I Quantitative 1.440 ng/mL (0.000-0.055) Laboratory Tests Test 10/21/16 11:40 10/21/16 13:22 10/21/16 17:02 10/21/16 17:50 White Blood Count 9.3 x10^3/uL (4.0-11.0) Red Blood Count 2.13 x10^6/uL (3.50-5.40) Hemoglobin 6.4 g/dL (12.0-15.5) Hematocrit 19.6 % (36.0-47.0) Mean Corpuscular Volume 92 fL (79-100) Mean Corpuscular Hemoglobin 30 pg (25-35) Mean Corpuscular Hemoglobin Concent 33 g/dL (31-37) Red Cell Distribution Width 15.3 % (11.5-14.5) Platelet Count 242 x10^3/uL (140-400) Neutrophils (%) (Auto) 70 % (31-73) Lymphocytes (%) (Auto) 20 % (24-48) Monocytes (%) (Auto) 6 % (0-9) Eosinophils (%) (Auto) 3 % (0-3) Basophils (%) (Auto) 1 % (0-3) Neutrophils # (Auto) 6.4 x10^3uL (1.8-7.7) Lymphocytes # (Auto) 1.8 x10^3/uL (1.0-4.8) Monocytes # (Auto) 0.6 x10^3/uL (0.0-1.1) Eosinophils # (Auto) 0.3 x10^3/uL (0.0-0.7) Basophils # (Auto) 0.1 x10^3/uL (0.0-0.2) Prothrombin Time 13.7 SEC (11.7-14.0) Prothromb Time International Ratio 1.1 (0.8-1.1) Sodium Level 139 mmol/L (136-145) Potassium Level 5.3 mmol/L (3.5-5.1) Chloride Level 107 mmol/L (98-107) Carbon Dioxide Level 25 mmol/L (21-32) Anion Gap 7 (6-14) Blood Urea Nitrogen 60 mg/dL (7-20) Creatinine 6.7 mg/dL (0.6-1.0) Estimated GFR (Cockcroft-Gault) 6.2 Glucose Level 167 mg/dL (70-99) Calcium Level 8.8 mg/dL (8.5-10.1) Magnesium Level 2.0 mg/dL (1.8-2.4) Iron Level 50 ug/dL (50-170) Total Iron Binding Capacity 218 ug/dL (250-450) Iron Saturation 23 % (15-34) Total Bilirubin 0.2 mg/dL (0.2-1.0) Direct Bilirubin 0.1 mg/dL (0.0-0.2) Aspartate Amino Transf (AST/SGOT) 11 U/L (15-37) Alanine Aminotransferase (ALT/SGPT) 15 U/L (14-59) Alkaline Phosphatase 123 U/L (46-116) Troponin I Quantitative 0.928 ng/mL (0.000-0.055) 0.989 ng/mL (0.000-0.055) YN-Ucv-K-Type Natriuretic Peptide 32278 pg/mL (0-124) Total Protein 5.6 g/dL (6.4-8.2) Albumin 2.0 g/dL (3.4-5.0) Triglycerides Level 115 mg/dL (0-150) Cholesterol Level 136 mg/dL (0-200) LDL Cholesterol, Calculated 76 mg/dL (0-100) VLDL Cholesterol, Calculated 23 mg/dL (0-40) Non-HDL Cholesterol Calculated 99 mg/dL (0-129) HDL Cholesterol 37 mg/dL (40-60) Cholesterol/HDL Ratio 3.7 Lipase 114 U/L (73-393) Urine Collection Type Unknown Urine Color Yellow Urine Clarity Hazy Urine pH 7.0 Urine Specific [place] 1.015 Urine Protein >=300 mg/dL (NEG-TRACE) Urine Glucose (UA) 250 mg/dL (NEG) Urine Ketones (Stick) Negative mg/dL (NEG) Urine Blood Trace (NEG) Urine Nitrite Negative (NEG) Urine Bilirubin Negative (NEG) Urine Urobilinogen Dipstick 0.2 mg/dL (0.2 mg/dL) Urine Leukocyte Esterase Negative (NEG) Urine RBC 0 /HPF (0-2) Urine WBC Occ /HPF (0-4) Urine Squamous Epithelial Cells Mod /LPF Urine Bacteria Mod /HPF (0-FEW) Glucose (Fingerstick) 177 mg/dL (70-99) Test 10/22/16 01:10 White Blood Count 8.7 x10^3/uL (4.0-11.0) Red Blood Count 2.95 x10^6/uL (3.50-5.40) Hemoglobin 8.8 g/dL (12.0-15.5) Hematocrit 25.9 % (36.0-47.0) Mean Corpuscular Volume 88 fL (79-100) Mean Corpuscular Hemoglobin 30 pg (25-35) Mean Corpuscular Hemoglobin Concent 34 g/dL (31-37) Red Cell Distribution Width 15.7 % (11.5-14.5) Platelet Count 221 x10^3/uL (140-400) Neutrophils (%) (Auto) 64 % (31-73) Lymphocytes (%) (Auto) 24 % (24-48) Monocytes (%) (Auto) 8 % (0-9) Eosinophils (%) (Auto) 3 % (0-3) Basophils (%) (Auto) 1 % (0-3) Neutrophils # (Auto) 5.6 x10^3uL (1.8-7.7) Lymphocytes # (Auto) 2.1 x10^3/uL (1.0-4.8) Monocytes # (Auto) 0.7 x10^3/uL (0.0-1.1) Eosinophils # (Auto) 0.2 x10^3/uL (0.0-0.7) Basophils # (Auto) 0.1 x10^3/uL (0.0-0.2) Prothrombin Time 13.4 SEC (11.7-14.0) Prothromb Time International Ratio 1.1 (0.8-1.1) Activated Partial Thromboplast Time 35 SEC (24-38) Sodium Level 139 mmol/L (136-145) Potassium Level 3.9 mmol/L (3.5-5.1) Chloride Level 103 mmol/L (98-107) Carbon Dioxide Level 32 mmol/L (21-32) Anion Gap 4 (6-14) Blood Urea Nitrogen 29 mg/dL (7-20) Creatinine 3.8 mg/dL (0.6-1.0) Estimated GFR (Cockcroft-Gault) 11.9 Glucose Level 249 mg/dL (70-99) Calcium Level 8.3 mg/dL (8.5-10.1) Ferritin 272 ng/mL (8-252) Troponin I Quantitative 1.440 ng/mL (0.000-0.055) Medications Current Medications Aspirin (Children'S Aspirin) 324 mg 1X ONCE PO Last administered on 10/21/16 11:49; Start 10/21/16 at 11:00; Stop 10/21/16 at 11:01; Status DC Hydralazine HCl (Apresoline) 10 mg PRN Q4HRS PRN IVP ELEVATED BP, SEE COMMENTS ; Start 10/21/16 at 14:30 Ondansetron HCl (Zofran) 4 mg PRN Q8HRS PRN IV NAUSEA/VOMITING; Start 10/21/16 at 14:45; Stop 10/22/16 at 14:44 Acetaminophen (Tylenol) 650 mg PRN Q6HRS PRN PO FEVER; Start 10/21/16 at 14:45 Ondansetron HCl (Zofran) 4 mg PRN Q6HRS PRN IV NAUSEA/VOMITING; Start 10/21/16 at 14:45 Hydralazine HCl (Apresoline) 10 mg PRN Q4HRS PRN IVP ELEVATED BP, SEE COMMENTS ; Start 10/21/16 at 14:45; Stop 10/21/16 at 14:54; Status DC Docusate Sodium (Colace) 100 mg PRN DAILY PRN PO CONSTIPATION; Start 10/21/16 at 14:45 Aspirin (Ecotrin) 81 mg DAILY PO Last administered on 10/22/16 10:11; Start 10/21/16 at 15:00 Lisinopril (Prinivil) 60 mg HS PO ; Start 10/21/16 at 21:00; Status Cancel Metolazone (Zaroxolyn) 2.5 mg WEEKLY PRN PO SEE COMMENTS; Start 10/21/16 at 15: 00 Potassium Chloride (Klor-Con) 20 meq WEEKLY PRN PO SEE COMMENTS; Start 10/21/16 at 15:00 Calcium Acetate (Phoslo) 667 mg BIDWMEALS PO Last administered on 10/22/16 10: 11; Start 10/21/16 at 17:00 Non-Formulary Medication 200 mg HS PO ; Start 10/21/16 at 21:00; Status UNV Gabapentin (Neurontin) 300 mg DAILY PO Last administered on 10/22/16 10:11; Start 10/22/16 at 09:00 Atorvastatin Calcium (Lipitor) 20 mg QHS PO Last administered on 10/22/16 00:21 ; Start 10/21/16 at 21:00 Insulin Aspart (NovoLOG) 0-9 UNITS TIDWMEALS SQ ; Start 10/21/16 at 17:00 Dextrose (Dextrose 50%-Water Syringe) 12.5 gm PRN Q15MIN PRN IV SEE COMMENTS; Start 10/21/16 at 15:00 Heparin Sodium (Porcine) (Heparin Sq) 5,000 unit Q8HRS SQ ; Start 10/21/16 at 16: 00 Clopidogrel Bisulfate (Plavix) 75 mg DAILY PO Last administered on 10/22/16t 10: 11; Start 10/22/16 at 09:00 Lisinopril (Prinivil) 40 mg QTUTHSASU PO Last administered on 10/22/16 00:21; Start 10/21/16 at 16:00 Sodium Chloride 1,000 ml @ 1,000 mls/hr Q1H PRN IV hypotension; Start 10/21/16 at 21:57; Stop 10/22/16 at 03:56; Status DC Sodium Chloride 1,000 ml @ 400 mls/hr Q2H30M PRN IV PATENCY; Start 10/21/16 at 21:57; Stop 10/22/16 at 09:56; Status DC Info (PHARMACY MONITORING -- do not chart) 1 each PRN DAILY PRN MC SEE COMMENTS ; Start 10/21/16 at 22:00 Info (PHARMACY MONITORING -- do not chart) 1 each PRN DAILY PRN MC SEE COMMENTS ; Start 10/21/16 at 22:00 Active Scripts Active Reported Plavix (Clopidogrel Bisulfate) 75 Mg Tablet 75 Mg PO DAILY Calcium Acetate 667 Mg Tablet 667 Mg PO BIDWMEALS last dose was this am next dose is wiith supper Tylenol Extra Strength (Acetaminophen) 500 Mg Tablet 500 Mg PO PRN Q12HRS PRN not given in hospital may resume when needed Metolazone 2.5 Mg Tablet 2.5 Mg PO WEEKLY PRN was not given in the hospital Furosemide 40 Mg Tablet 60 Mg PO PRN PRN not given in hospital may take as instructed by provider Potassium Chloride 20 Meq Tab.er.prt 20 Meq PO WEEKLY PRN was not given in hospital Gabapentin 300 Mg Capsule 300 Mg PO DAILY Cranberry (Cranberry Extract) 200 Mg Capsule 200 Mg PO HS not given in hospital may resume when needed Crestor (Rosuvastatin Calcium) 5 Mg Tablet 5 Mg PO HS was not given in the hospital as requested will resume at home Lisinopril 40 Mg Tablet 60 Mg PO HS last dose was last evening Lantus (Insulin Glargine,Hum.rec.anlog) 100 Unit/1 Ml Vial 50 Unit SQ HS refused to take last night stated she would take her own at home Benadryl Allergy (Diphenhydramine Hcl) 25 Mg Tablet 25 Mg PO PRN not given in the hospital Aspir 81 (Aspirin) 81 Mg Tablet.dr 81 Mg PO DAILY last dose was this am resume in am Vitals/I & O Vital Sign - Last 24 Hours 10/21/16 10/21/16 10/21/16 10/21/16 11:08 11:30 12:00 12:30 Temp 98.0 98.0 Pulse 76 72 70 72 Resp 21 20 20 20 B/P (MAP) 162/70 (100) 154/69 (97) 149/65 (93) 146/63 (90) Pulse Ox 92 94 94 93 O2 Delivery Room Air Room Air Room Air Room Air 10/21/16 10/21/16 10/21/16 10/21/16 13:00 13:26 13:28 14:26 Pulse 68 82 72 72 Resp 20 20 19 B/P (MAP) 158/67 (97) 138/62 (87) 135/64 (87) 158/69 (98) Pulse Ox 94 94 95 O2 Delivery Room Air Room Air Room Air 10/21/16 10/21/16 10/21/16 10/21/16 15:00 15:00 16:16 19:20 Temp 97.9 97.9 98.0 97.9 97.9 98.0 Pulse 69 69 70 Resp 18 18 18 B/P (MAP) 143/47 (79) 143/47 (79) 128/49 (75) Pulse Ox 96 96 95 O2 Delivery Room Air Room Air Room Air Room Air 10/21/16 10/21/16 10/21/16 10/21/16 20:00 20:52 21:06 21:20 Temp 98.0 97.9 98.0 98.0 97.9 98.0 Pulse 70 66 62 Resp 18 16 16 B/P (MAP) 128/49 144/66 123/48 O2 Delivery Room Air 10/21/16 10/21/16 10/21/16 10/22/16 21:25 21:41 21:51 00:00 Temp 98.0 98.0 98.0 98.1 98.0 98.0 98.0 98.1 Pulse 67 62 65 63 Resp 16 18 18 18 B/P (MAP) 130/72 161/62 164/70 124/46 (72) Pulse Ox 96 O2 Delivery Room Air 10/22/16 10/22/16 10/22/16 10/22/16 00:21 02:50 07:00 07:42 Temp 98.2 98.2 98.2 98.2 Pulse 63 72 65 Resp 18 18 B/P (MAP) 124/46 133/49 (77) 151/53 (85) Pulse Ox 96 95 O2 Delivery Room Air Room Air Room Air 10/22/16 11:00 Temp 98.0 98.0 Pulse 64 Resp 18 B/P (MAP) 156/57 (90) Pulse Ox 97 O2 Delivery Room Air Intake and Output 10/21/16 10/21/16 10/22/16 15:00 23:00 07:00 Intake Total 200 ml 660 ml Output Total 0 ml 150 ml Balance 200 ml 510 ml JARED BYRNES MD Oct 22, 2016 11:05
[2016-10-22 11:18] LABS: FOLATE 4.02 ng/ml (3.2-20.0)
--- NOTE | 2016-10-22 13:35 | PDOC ---
CARDIO Progress Notes Date and Time Date of Service 10/22/2016 Time of Evaluation 1030 Subjective Subjective: No Chest Pain, No Palpitations, No Dizziness, Other (still has some mild [place]) Vitals Vitals Vital Signs Date Time Temp Pulse Resp B/P (MAP) Pulse Ox O2 Delivery O2 Flow Rate FiO2 10/22/16 11:00 98.0 64 18 156/57 (90) 97 Room Air 98.0 Weight Weight [ ] Input and Output Intake and Output Intake and Output 10/22/16 07:00 Intake Total 860 ml Output Total 150 ml Balance 710 ml Intake Oral 660 ml Blood Product IV Normal Saline Flush 200 ml Output Urine Total 150 ml Laboratory Labs Laboratory Tests Test 10/21/16 17:02 10/21/16 17:50 10/22/16 01:10 Glucose (Fingerstick) 177 mg/dL (70-99) Troponin I Quantitative 0.989 ng/mL (0.000-0.055) 1.440 ng/mL (0.000-0.055) White Blood Count 8.7 x10^3/uL (4.0-11.0) Red Blood Count 2.95 x10^6/uL (3.50-5.40) Hemoglobin 8.8 g/dL (12.0-15.5) Hematocrit 25.9 % (36.0-47.0) Mean Corpuscular Volume 88 fL (79-100) Mean Corpuscular Hemoglobin 30 pg (25-35) Mean Corpuscular Hemoglobin Concent 34 g/dL (31-37) Red Cell Distribution Width 15.7 % (11.5-14.5) Platelet Count 221 x10^3/uL (140-400) Neutrophils (%) (Auto) 64 % (31-73) Lymphocytes (%) (Auto) 24 % (24-48) Monocytes (%) (Auto) 8 % (0-9) Eosinophils (%) (Auto) 3 % (0-3) Basophils (%) (Auto) 1 % (0-3) Neutrophils # (Auto) 5.6 x10^3uL (1.8-7.7) Lymphocytes # (Auto) 2.1 x10^3/uL (1.0-4.8) Monocytes # (Auto) 0.7 x10^3/uL (0.0-1.1) Eosinophils # (Auto) 0.2 x10^3/uL (0.0-0.7) Basophils # (Auto) 0.1 x10^3/uL (0.0-0.2) Prothrombin Time 13.4 SEC (11.7-14.0) Prothromb Time International Ratio 1.1 (0.8-1.1) Activated Partial Thromboplast Time 35 SEC (24-38) Sodium Level 139 mmol/L (136-145) Potassium Level 3.9 mmol/L (3.5-5.1) Chloride Level 103 mmol/L (98-107) Carbon Dioxide Level 32 mmol/L (21-32) Anion Gap 4 (6-14) Blood Urea Nitrogen 29 mg/dL (7-20) Creatinine 3.8 mg/dL (0.6-1.0) Estimated GFR (Cockcroft-Gault) 11.9 Glucose Level 249 mg/dL (70-99) Calcium Level 8.3 mg/dL (8.5-10.1) Ferritin 272 ng/mL (8-252) Vitamin B12 Level 395 pg/mL (247-911) Serum Folate 4.02 ng/ml (3.2-20.0) Physical Exam HEENT: Neck Supple W Full Motion Chest: Symmetric LUNGS: Other (basilar crackles) Heart: S1S2, RRR (SR), murmurs (4/6 systolic murmur loudest at erbs point) Abdomen: Soft N/T Extremities: No Calf Tenderness, Other (2+ bilateral LE pitting edema) Neurology: alert, oriented, follow commands Assessment Assessment 1. Acute diastolic CHF: likely due to anemia and missed HD 2. Normocytic Anemia: Hgb 6.4. S/P 2 U PRBC now Hgb at 8.8 3. Chest pain: described as nonradiating tightness. Likely from #1 and 2. CP free overnight 3. NSTEMI: Peaked at 1.4, EKG SR no significant changes by comparison. . EF 55% . Likely type 2 4. ESRD 5. HTN: controlled 6. DM2/HLP: diet controlled per pt 7. Valvular insufficiency: mod to severe MR 8. Hx of recent [employer]ICE/stent to lef subclavian artery: thus DAPT. 9. Tobaccoism with likely COPD: >40 pk yr Recommendations 1. Fluid off loading per HD 2. Awaiting records from Dr. Agee with full echo. 3. Continue with secondary prevention 4. Pt had caffeine this am and refusing SL. Discussed with pt and will establish SL in AM and will proceed with MPI 5. Smoking cessation PATRICE HA APRN Oct 22, 2016 13:35
--- NOTE | 2016-10-22 14:03 | PDOC2 ---
CONSULT Date of Consult Date of Consult DATE: 10/22/16 TIME: 14:01 Reason for Consult Reason for Consult: ESRD Referring Physician Referring Physician: DR BYRNES Identification/Chief Complaint Chief Complaint SOB Problems: Source Source: Chart review, Patient History of Present Illness Reason for Visit: as dictated Past Medical History Cardiovascular: HTN, Valve insufficiency, Other (Carotid artery disease) Pulmonary: No pertinent hx CENTRAL NERVOUS SYSTEM: Other (No pertinent history) GI: No pertinent hx Heme/Onc: Anemia NOS Hepatobiliary: No pertinent hx Psych: Depression Musculoskeletal: low back pain, Osteoarthritis, Other (cervical radiculopathy) Rheumatologic: No pertinent hx Infectious disease: No pertinent hx ENT: Allergic Rhinitis Renal/: Chronic renal failure Endocrine: Diabetes (2) Dermatology: No pertinent hx Past Surgical History Past Surgical History: Arthroscopy (right RTC repair), Cholecystectomy, Tonsillectomy, Hysterectomy, Other (anterior cervical fusion; lumbar decompression; LAV dialysis fistula 06/2015; 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) Family History Family History: Diabetes Social History 1 pack per day (>40 pk yr) ALCOHOL: none Drugs: None Lives: with Family Current Problem List Problem List Problems Medical Problems: (1) Chest pain Status: Acute (2) CHF exacerbation Status: Acute (3) Non-STEMI (non-ST elevated myocardial infarction) Status: Acute (4) Volume overload Status: Acute Current Medications Current Medications Current Medications Aspirin (Children'S Aspirin) 324 mg 1X ONCE PO Last administered on 10/21/16t 11:49; Start 10/21/16 at 11:00; Stop 10/21/16 at 11:01; Status DC Hydralazine HCl (Apresoline) 10 mg PRN Q4HRS PRN IVP ELEVATED BP, SEE COMMENTS ; Start 10/21/16 at 14:30 Ondansetron HCl (Zofran) 4 mg PRN Q8HRS PRN IV NAUSEA/VOMITING; Start 10/21/16 at 14:45; Stop 10/22/16 at 14:44 Acetaminophen (Tylenol) 650 mg PRN Q6HRS PRN PO FEVER; Start 10/21/16 at 14:45 Ondansetron HCl (Zofran) 4 mg PRN Q6HRS PRN IV NAUSEA/VOMITING; Start 10/21/16 at 14:45 Hydralazine HCl (Apresoline) 10 mg PRN Q4HRS PRN IVP ELEVATED BP, SEE COMMENTS ; Start 10/21/16 at 14:45; Stop 10/21/16 at 14:54; Status DC Docusate Sodium (Colace) 100 mg PRN DAILY PRN PO CONSTIPATION; Start 10/21/16 at 14:45 Aspirin (Ecotrin) 81 mg DAILY PO Last administered on 10/22/16 10:11; Start 10/21/16 at 15:00 Lisinopril (Prinivil) 60 mg HS PO ; Start 10/21/16 at 21:00; Status Cancel Metolazone (Zaroxolyn) 2.5 mg WEEKLY PRN PO SEE COMMENTS; Start 10/21/16 at 15: 00 Potassium Chloride (Klor-Con) 20 meq WEEKLY PRN PO SEE COMMENTS; Start 10/21/16 at 15:00 Calcium Acetate (Phoslo) 667 mg BIDWMEALS PO Last administered on 10/22/16 10: 11; Start 10/21/16 at 17:00 Non-Formulary Medication 200 mg HS PO ; Start 10/21/16 at 21:00; Status UNV Gabapentin (Neurontin) 300 mg DAILY PO Last administered on 10/22/16 10:11; Start 10/22/16 at 09:00 Atorvastatin Calcium (Lipitor) 20 mg QHS PO Last administered on 10/22/16 00:21 ; Start 10/21/16 at 21:00 Insulin Aspart (NovoLOG) 0-9 UNITS TIDWMEALS SQ ; Start 10/21/16 at 17:00 Dextrose (Dextrose 50%-Water Syringe) 12.5 gm PRN Q15MIN PRN IV SEE COMMENTS; Start 10/21/16 at 15:00 Heparin Sodium (Porcine) (Heparin Sq) 5,000 unit Q8HRS SQ ; Start 10/21/16 at 16: 00 Clopidogrel Bisulfate (Plavix) 75 mg DAILY PO Last administered on 10/22/16 10: 11; Start 10/22/16 at 09:00 Lisinopril (Prinivil) 40 mg QTUTHSASU PO Last administered on 10/22/16 00:21; Start 10/21/16 at 16:00 Sodium Chloride 1,000 ml @ 1,000 mls/hr Q1H PRN IV hypotension; Start 10/21/16 at 21:57; Stop 10/22/16 at 03:56; Status DC Sodium Chloride 1,000 ml @ 400 mls/hr Q2H30M PRN IV PATENCY; Start 10/21/16 at 21:57; Stop 10/22/16 at 09:56; Status DC Info (PHARMACY MONITORING -- do not chart) 1 each PRN DAILY PRN MC SEE COMMENTS ; Start 10/21/16 at 22:00 Info (PHARMACY MONITORING -- do not chart) 1 each PRN DAILY PRN MC SEE COMMENTS ; Start 10/21/16 at 22:00; Stop 10/22/16 at 12:26; Status DC Active Scripts Active Reported Plavix (Clopidogrel Bisulfate) 75 Mg Tablet 75 Mg PO DAILY Calcium Acetate 667 Mg Tablet 667 Mg PO BIDWMEALS last dose was this am next dose is wiith supper Tylenol Extra Strength (Acetaminophen) 500 Mg Tablet 500 Mg PO PRN Q12HRS PRN not given in hospital may resume when needed Metolazone 2.5 Mg Tablet 2.5 Mg PO WEEKLY PRN was not given in the hospital Furosemide 40 Mg Tablet 60 Mg PO PRN PRN not given in hospital may take as instructed by provider Potassium Chloride 20 Meq Tab.er.prt 20 Meq PO WEEKLY PRN was not given in hospital Gabapentin 300 Mg Capsule 300 Mg PO DAILY Cranberry (Cranberry Extract) 200 Mg Capsule 200 Mg PO HS not given in hospital may resume when needed Crestor (Rosuvastatin Calcium) 5 Mg Tablet 5 Mg PO HS was not given in the hospital as requested will resume at home Lisinopril 40 Mg Tablet 60 Mg PO HS last dose was last evening Lantus (Insulin Glargine,Hum.rec.anlog) 100 Unit/1 Ml Vial 50 Unit SQ HS refused to take last night stated she would take her own at home Benadryl Allergy (Diphenhydramine Hcl) 25 Mg Tablet 25 Mg PO PRN not given in the hospital Aspir 81 (Aspirin) 81 Mg Tablet. 81 Mg PO DAILY last dose was this am resume in am Allergies Allergies: Coded Allergies: ciprofloxacin (Verified Allergy, Intermediate, Rash, 01/25/15) morphine (Verified Adverse Reaction, Severe, makes her skin crawl, 01/25/15 ) oxycodone (Verified Adverse Reaction, Severe, makes her skin crawl, ) adhesive (Verified Adverse Reaction, Intermediate, blisters, 01/25/15) "use paper tape" ROS Review of System GEN: no Fevers no Chills EYES: no new Visual Complaints ENT: no EN Drainage no Hearing deficiets CVS: + Orthopnea + CPressure RESP: + SOB + MENDOZA GI: no Nausea no Vomiting : no Dysuria no Urgency HEME: no easy bruising no Palp Ly Nodes NEURO no Focal Weakness no Sz PSYCH: no Suicidal Ideation no Depression SKIN: no Rashes ENDO: no Polyuria or Polydipsia no Hot/Cold Intolerance MU SK: no Arthraigia no Myalgia Physical Exam Physical Exam General Appearance: Awake Alert Oriented x 3 In no Distress Eyes: VIsion Unchanged Conjunctiva Normal EN: No EN Drainage Mucous Memb. moist Neck: no JVD min JVP Supple no Thyromegaly CVS: S1 S2 soft Murmur No Gallop No Rub no Edema Resp: few bsal Rales no Rhonchi no Acc. Muscle use GI: BAS +ve NO Bruit Non Tender Non Distended : no CVA tenderness; no Suprapubic Tenderness SKIN: no Rashes Breast Exam deferred Mu.Sk: Adequate ROM no Muscle Atrophy Heme: Unable to palpate Obvious LAD no Splenomegaly NEURO: Good Strength and Tone Cranial Nerves II - XII grossly intact Psych: no Depressed no Active hallucination Vital Signs Vital Signs Date Time Temp Pulse Resp B/P (MAP) Pulse Ox O2 Delivery O2 Flow Rate FiO2 10/22/16 11:00 98.0 64 18 156/57 (90) 97 Room Air 98.0 Assessment & Plan ESRD: Current FLuid and E-lyte status does not necessitate emergent need for Dialysis. Will re-evaluate for Dialysis in am and continue on TTSat schedule. Fl Overload - Uf with HD; IV lasix as ordered ^K - resolved with HD yest Anemia: Epogen as ordered; Transfuse as needed.? some of this may be dilutional too HTN: Current BP meds reviewed. See orders for changes. NSTEMI - await Cardiology plans. - would consider LHC soon Bone & Mineral: follow phos and alter binder regimen prn ? Non-compliance with HD orderes - pt restricts Uf on OP HD and does not allow to be brought down to pre-assigned Dry weight. Discussed Plan of Care and prognosis etc. at length with family. Labs Labs Laboratory Tests Test 10/21/16 11:40 10/21/16 13:22 10/21/16 17:02 10/21/16 17:50 White Blood Count 9.3 x10^3/uL (4.0-11.0) Red Blood Count 2.13 x10^6/uL (3.50-5.40) Hemoglobin 6.4 g/dL (12.0-15.5) Hematocrit 19.6 % (36.0-47.0) Mean Corpuscular Volume 92 fL (79-100) Mean Corpuscular Hemoglobin 30 pg (25-35) Mean Corpuscular Hemoglobin Concent 33 g/dL (31-37) Red Cell Distribution Width 15.3 % (11.5-14.5) Platelet Count 242 x10^3/uL (140-400) Neutrophils (%) (Auto) 70 % (31-73) Lymphocytes (%) (Auto) 20 % (24-48) Monocytes (%) (Auto) 6 % (0-9) Eosinophils (%) (Auto) 3 % (0-3) Basophils (%) (Auto) 1 % (0-3) Neutrophils # (Auto) 6.4 x10^3uL (1.8-7.7) Lymphocytes # (Auto) 1.8 x10^3/uL (1.0-4.8) Monocytes # (Auto) 0.6 x10^3/uL (0.0-1.1) Eosinophils # (Auto) 0.3 x10^3/uL (0.0-0.7) Basophils # (Auto) 0.1 x10^3/uL (0.0-0.2) Prothrombin Time 13.7 SEC (11.7-14.0) Prothromb Time International Ratio 1.1 (0.8-1.1) Sodium Level 139 mmol/L (136-145) Potassium Level 5.3 mmol/L (3.5-5.1) Chloride Level 107 mmol/L (98-107) Carbon Dioxide Level 25 mmol/L (21-32) Anion Gap 7 (6-14) Blood Urea Nitrogen 60 mg/dL (7-20) Creatinine 6.7 mg/dL (0.6-1.0) Estimated GFR (Cockcroft-Gault) 6.2 Glucose Level 167 mg/dL (70-99) Calcium Level 8.8 mg/dL (8.5-10.1) Magnesium Level 2.0 mg/dL (1.8-2.4) Iron Level 50 ug/dL (50-170) Total Iron Binding Capacity 218 ug/dL (250-450) Iron Saturation 23 % (15-34) Total Bilirubin 0.2 mg/dL (0.2-1.0) Direct Bilirubin 0.1 mg/dL (0.0-0.2) Aspartate Amino Transf (AST/SGOT) 11 U/L (15-37) Alanine Aminotransferase (ALT/SGPT) 15 U/L (14-59) Alkaline Phosphatase 123 U/L (46-116) Troponin I Quantitative 0.928 ng/mL (0.000-0.055) 0.989 ng/mL (0.000-0.055) OA-Gmw-P-Type Natriuretic Peptide 07772 pg/mL (0-124) Total Protein 5.6 g/dL (6.4-8.2) Albumin 2.0 g/dL (3.4-5.0) Triglycerides Level 115 mg/dL (0-150) Cholesterol Level 136 mg/dL (0-200) LDL Cholesterol, Calculated 76 mg/dL (0-100) VLDL Cholesterol, Calculated 23 mg/dL (0-40) Non-HDL Cholesterol Calculated 99 mg/dL (0-129) HDL Cholesterol 37 mg/dL (40-60) Cholesterol/HDL Ratio 3.7 Lipase 114 U/L (73-393) Urine Collection Type Unknown Urine Color Yellow Urine Clarity Hazy Urine pH 7.0 Urine Specific [place] 1.015 Urine Protein >=300 mg/dL (NEG-TRACE) Urine Glucose (UA) 250 mg/dL (NEG) Urine Ketones (Stick) Negative mg/dL (NEG) Urine Blood Trace (NEG) Urine Nitrite Negative (NEG) Urine Bilirubin Negative (NEG) Urine Urobilinogen Dipstick 0.2 mg/dL (0.2 mg/dL) Urine Leukocyte Esterase Negative (NEG) Urine RBC 0 /HPF (0-2) Urine WBC Occ /HPF (0-4) Urine Squamous Epithelial Cells Mod /LPF Urine Bacteria Mod /HPF (0-FEW) Glucose (Fingerstick) 177 mg/dL (70-99) Test 10/22/16 01:10 White Blood Count 8.7 x10^3/uL (4.0-11.0) Red Blood Count 2.95 x10^6/uL (3.50-5.40) Hemoglobin 8.8 g/dL (12.0-15.5) Hematocrit 25.9 % (36.0-47.0) Mean Corpuscular Volume 88 fL (79-100) Mean Corpuscular Hemoglobin 30 pg (25-35) Mean Corpuscular Hemoglobin Concent 34 g/dL (31-37) Red Cell Distribution Width 15.7 % (11.5-14.5) Platelet Count 221 x10^3/uL (140-400) Neutrophils (%) (Auto) 64 % (31-73) Lymphocytes (%) (Auto) 24 % (24-48) Monocytes (%) (Auto) 8 % (0-9) Eosinophils (%) (Auto) 3 % (0-3) Basophils (%) (Auto) 1 % (0-3) Neutrophils # (Auto) 5.6 x10^3uL (1.8-7.7) Lymphocytes # (Auto) 2.1 x10^3/uL (1.0-4.8) Monocytes # (Auto) 0.7 x10^3/uL (0.0-1.1) Eosinophils # (Auto) 0.2 x10^3/uL (0.0-0.7) Basophils # (Auto) 0.1 x10^3/uL (0.0-0.2) Prothrombin Time 13.4 SEC (11.7-14.0) Prothromb Time International Ratio 1.1 (0.8-1.1) Activated Partial Thromboplast Time 35 SEC (24-38) Sodium Level 139 mmol/L (136-145) Potassium Level 3.9 mmol/L (3.5-5.1) Chloride Level 103 mmol/L (98-107) Carbon Dioxide Level 32 mmol/L (21-32) Anion Gap 4 (6-14) Blood Urea Nitrogen 29 mg/dL (7-20) Creatinine 3.8 mg/dL (0.6-1.0) Estimated GFR (Cockcroft-Gault) 11.9 Glucose Level 249 mg/dL (70-99) Calcium Level 8.3 mg/dL (8.5-10.1) Ferritin 272 ng/mL (8-252) Troponin I Quantitative 1.440 ng/mL (0.000-0.055) Vitamin B12 Level 395 pg/mL (247-911) Serum Folate 4.02 ng/ml (3.2-20.0) Laboratory Tests Test 10/21/16 17:02 10/21/16 17:50 10/22/16 01:10 Glucose (Fingerstick) 177 mg/dL (70-99) Troponin I Quantitative 0.989 ng/mL (0.000-0.055) 1.440 ng/mL (0.000-0.055) White Blood Count 8.7 x10^3/uL (4.0-11.0) Red Blood Count 2.95 x10^6/uL (3.50-5.40) Hemoglobin 8.8 g/dL (12.0-15.5) Hematocrit 25.9 % (36.0-47.0) Mean Corpuscular Volume 88 fL (79-100) Mean Corpuscular Hemoglobin 30 pg (25-35) Mean Corpuscular Hemoglobin Concent 34 g/dL (31-37) Red Cell Distribution Width 15.7 % (11.5-14.5) Platelet Count 221 x10^3/uL (140-400) Neutrophils (%) (Auto) 64 % (31-73) Lymphocytes (%) (Auto) 24 % (24-48) Monocytes (%) (Auto) 8 % (0-9) Eosinophils (%) (Auto) 3 % (0-3) Basophils (%) (Auto) 1 % (0-3) Neutrophils # (Auto) 5.6 x10^3uL (1.8-7.7) Lymphocytes # (Auto) 2.1 x10^3/uL (1.0-4.8) Monocytes # (Auto) 0.7 x10^3/uL (0.0-1.1) Eosinophils # (Auto) 0.2 x10^3/uL (0.0-0.7) Basophils # (Auto) 0.1 x10^3/uL (0.0-0.2) Prothrombin Time 13.4 SEC (11.7-14.0) Prothromb Time International Ratio 1.1 (0.8-1.1) Activated Partial Thromboplast Time 35 SEC (24-38) Sodium Level 139 mmol/L (136-145) Potassium Level 3.9 mmol/L (3.5-5.1) Chloride Level 103 mmol/L (98-107) Carbon Dioxide Level 32 mmol/L (21-32) Anion Gap 4 (6-14) Blood Urea Nitrogen 29 mg/dL (7-20) Creatinine 3.8 mg/dL (0.6-1.0) Estimated GFR (Cockcroft-Gault) 11.9 Glucose Level 249 mg/dL (70-99) Calcium Level 8.3 mg/dL (8.5-10.1) Ferritin 272 ng/mL (8-252) Vitamin B12 Level 395 pg/mL (247-911) Serum Folate 4.02 ng/ml (3.2-20.0) AMENA QUARLES MD Oct 22, 2016 14:03
--- NOTE | 2016-10-23 00:33 | CONS ---
DATE OF CONSULTATION: PRIMARY PHYSICIAN: Dr. Mcmahon. REASON FOR CONSULTATION: ESRD, dialysis. HISTORY OF PRESENT ILLNESS: The patient is a 66-year-old female followed by Dr. Mitchell following her ESRD needs. She presented to the ER after missing dialysis on Thursday. She said she has had increasing shortness of breath and some chest tightness. She is known to be diabetic. She missed Thursday since her ifwcid-dg-ofs . She presented to the ER yesterday with potassium of 5.3 and complaints of increasing shortness of breath and chest pain. She was not found to have EKG changes and chest x-ray showed fluid overload and moderate bilateral pleural effusions. In this setting, we proceeded to some emergent dialysis last night. The patient is noted to be very directive in her fluid management. She claims that her dry weight is 74 kilos, but of late, she has been leaving at 77 and 78 kilos because she would only let them remove 0.8 kilos. She does not allow for increased UF because she is afraid of cramping, etc. In this setting, she appears to have gained significant amount of fluid weight and presented to the ER as mentioned above. For rest of the details, please see electronic records. AMENA QUARLES MD DR: SHAWN/williams JOB#: [id number] / [id number]
[2016-10-23 02:40] VITALS: BP 146/61
[2016-10-23] MEDS: HEPARIN PF for SUB-Q USE 5,000 UNIT/0.5 ML VIAL. SQ SCH ×3 (06:00→21:13)
[2016-10-23 07:00] VITALS: BP 151/51
[2016-10-23] MEDS: INSULIN ASPART 300 UNITS/3 ML INSULN.PEN SQ SCH ×3 (08:00→17:00)
[2016-10-23] MEDS ORDERED: REGADENOSON 0.4 MG/5 ML DISP.SYRIN. IV ONE (08:45)
[2016-10-23] MEDS ORDERED: IV NORMAL SALINE 1000ML BAG 1,000 ML IV PRN (09:01)
[2016-10-23] MEDS ORDERED: diphenhydrAMINE 50 MG/ML VIAL IV PRN ×2 (09:15)
[2016-10-23] MEDS ORDERED: DIALYSIS PATIENT. MC PRN (09:15)
[2016-10-23] MEDS: GABAPENTIN 300 MG CAPSULE. PO SCH (10:07)
[2016-10-23] MEDS: ASPIRIN ENTERIC COATED 81 MG TABLET.DR. PO SCH (10:08)
[2016-10-23] MEDS: CALCIUM ACETATE 667 MG CAPSULE PO SCH ×2 (10:08→18:51)
[2016-10-23] MEDS: CLOPIDOGREL BISULFATE 75 MG TABLET PO SCH (10:08)
--- NOTE | 2016-10-23 11:12 | RAD ---
APPROVED REPORT Test Type: Pharmacological Stress Nurse/Tech: Shaina Butler RN Test Indications: chest pain, elevated trop Cardiac History: see ehr Medications: see ehr Medical History: see ehr Resting ECG: SB, BBB Resting Heart Rate: 59 bpm Resting Blood Pressure: 161/57mmHg Pretest Chest Pain: None Nurse/Tech Notes Lungs CTA, S1, S2 Consent: The procedure was explained to the patient in lay terms. Informed consent was witnessed. Oswaldo eout was entered into [employer]. History and Stress Test performed by [facility] Mart[facility]ier[facility]. Details Pharmacologic stress testing was performed using 0.4mg per 5ml of regadenoson given intravenously ove r 7-10 seconds. Stress Symptoms No chest pain or symptoms. POST EXERCISE Reason for Termination: Infusion complete Max HR: 88 bpm Max Blood Pressure: 143/55mmHg Blood Pressure response to exercise: Normal blood pressure response during stress. Chest Pain: No. Arrhythmia: No. ST Change: No. INTERPRETATION Stress EKG Conclusion: Baseline EKG showed sinus rhythm with inferolateral ST depressions. Nondiagnos tic changes at peak stress. No arrhythmias. Imaging Protocol IMAGE PROTOCOL: Rest Tc-99m/stress Tc-99m 1 day Rest: Stress: Viability: Radiopharm.Tc99m [id number] Sestamibi Dose11.3mCi 32mCi Img Date 10/23/2016 10/23/2016 Inj-Img [id number]. 60min. Rest Admin Site:IV - Right ForearmAdministrator:TRI Valdivia, ARRT (R)(N) Stress Admin Site: IV - Right ForearmAdministrator: FLOR Brito STRESS DATA End Diast. Vol.169.0mlAv. Heart Rate71.0bpm End Syst. Vol.80.0mlCO Index BSA0.0L/min Myocardial Xmni807.0gEject. Hzglpjmk14.0% Stress Rates Pk. Fill Rate2.18EDV/secLVtime Pk. Fill 130.19msec Pk. Empty Rate2.63ESV/secLVtime Pk. Xwlmw740.38msec 03/25 Pk. Fill1.29EDV/sec Stress Scores Regional WT1.00Summed WT17.00 Regional WM0.00Summed WM11.00 LV Perfusion Scintigraphic images showed small to moderate reversible defect involving the base to mid inferolater al wall consistent with ischemia. This is associated with transient ischemic dilatation. Wall Motion Normal left ventricle systolic function with ejection fraction calculated at 53%. LV Perf. Quant 17 Seg. SSS6.00 17 Seg. SRS1.00 17 Seg. SDS5.00 Stress Defect Extent (% LAD)0.00Rest Defect Extent (% LAD)0.00Rev. Defect Extent (% LAD)0.00 Stress Defect Extent (% LCX) 23.80Rest Defect Extent (% LCX)0.00Rev. Defect Extent (% LCX)17.50 Stress Defect Extent (% RCA)12.20Rest Defect Extent (% RCA)0.00Rev. Defect Extent (% RCA)8.90 Stress Defect Extent (% EDGAR)11.30Rest Defect Extent (% EDGAR)0.00Rev. Defect Extent (% EDGAR)9.30 Conclusion 1. Regadenoson cardioisotope stress test showed xtqar-dv-eqfztldu amount of inferolateral wall ischem ia associated with transient ischemic dilatation. 2. Normal left ventricular systolic function with ejection fraction calculated at 53%. 3. Consider coronary angiography.
[2016-10-23] MEDS ORDERED: MAGNESIUM SULFATE 2GM 50 ML IV PRN (12:15)
--- NOTE | 2016-10-23 12:16 | PDOC ---
SUBJECTIVE ROS ESRD on her way to Stress test CVS: no Orthopnea, no CP RESP: no SOB, min MENDOZA GI: no Nausea, no Vomiting : no Dysuria, no Urgency OBJECTIVE Vital Signs Vital Signs Date Time Temp Pulse Resp B/P (MAP) Pulse Ox O2 Delivery O2 Flow Rate FiO2 10/23/16 07:00 97.6 66 18 151/51 (84) 92 Room Air 97.6 I & 0 Intake and Output 10/23/16 07:00 Intake Total 1130 ml Balance 1130 ml Intake Oral 1130 ml PHYSICAL EXAM Physical Exam General Appearance: Awake Alert Oriented x 3 In no Distress Eyes: VIsion Unchanged Conjunctiva Normal EN: No EN Drainage Mucous Memb. moist Neck: no JVD min JVP Supple no Thyromegaly CVS: S1 S2 soft Murmur No Gallop No Rub no Edema Resp: few bsal Rales no Rhonchi no Acc. Muscle use GI: BAS +ve NO Bruit Non Tender Non Distended : no CVA tenderness; no Suprapubic Tenderness Assessment & Plan ESRD: Dialysis as below F 180 NR 3.5 Hrs 3 K 2.5 Ca 140 Na 35HC03 Qb 350 + Qd 500+ Heparin 0 Units Uf to dry weight as tolerated May give 25-50 gms of 25% Albumin if needed to maintain Hemodynamic stability Treatment plan reviewed and discussed with night clerk Fl Overload - Uf with HD; IV lasix as ordered; not much UO recorded ^K - resolved with HD - no labs today Anemia: Epogen as ordered; Transfuse as needed.? some of this may be dilutional too HTN: Current BP meds reviewed. See orders for changes. NSTEMI - await stress test results - would consider LHC sooner rather than later Bone & Mineral: follow phos and alter binder regimen prn ? Non-compliance with HD orderes - pt restricts Uf on OP HD and does not allow to be brought down to pre-assigned Dry weight. Discussed Plan of Care and prognosis etc. at length with family. COMMENT/RELEVANT DATA Meds Current Medications Medications (Trade) Dose Ordered Sig/Liza Start Time Stop Time Status Last Admin Dose Admin Acetaminophen (Tylenol) 650 mg PRN Q6HRS PRN 10/21/16 14:45 Aspirin (Children'S Aspirin) 324 mg 1X ONCE 10/21/16 11:00 10/21/16 11:01 DC 10/21/16 11:49 324 MG Aspirin (Ecotrin) 81 mg DAILY 10/21/16 15:00 10/23/16 10:08 81 MG Atorvastatin Calcium (Lipitor) 20 mg QHS 10/21/16 21:00 10/22/16 21:22 20 MG Calcium Acetate (Phoslo) 667 mg BIDWMEALS 10/21/16 17:00 10/23/16 10:08 667 MG Clopidogrel Bisulfate (Plavix) 75 mg DAILY 10/22/16 09:00 10/23/16 10:08 75 MG Dextrose (Dextrose 50%-Water Syringe) 12.5 gm PRN Q15MIN PRN 10/21/16 15:00 Diphenhydramine HCl (Benadryl) 25 mg 1X PRN PRN 10/23/16 09:15 10/24/16 09:14 Docusate Sodium (Colace) 100 mg PRN DAILY PRN 10/21/16 14:45 Gabapentin (Neurontin) 300 mg DAILY 10/22/16 09:00 10/23/16 10:07 300 MG Heparin Sodium (Porcine) (Heparin Sq) 5,000 unit Q8HRS 10/21/16 16:00 10/22/16 21:26 5,000 UNIT Hydralazine HCl (Apresoline) 10 mg PRN Q4HRS PRN 10/21/16 14:45 10/21/16 14:54 DC Info (PHARMACY MONITORING -- do not chart) 1 each PRN DAILY PRN 10/23/16 09:15 Insulin Aspart (NovoLOG) 0-9 UNITS TIDWMEALS 10/21/16 17:00 Lisinopril (Prinivil) 40 mg QTUTHSASU 10/21/16 16:00 10/22/16 00:21 40 MG Metolazone (Zaroxolyn) 2.5 mg WEEKLY PRN 10/21/16 15:00 Non-Formulary Medication 200 mg HS 10/21/16 21:00 UNV Ondansetron HCl (Zofran) 4 mg PRN Q6HRS PRN 10/21/16 14:45 Potassium Chloride (Klor-Con) 20 meq WEEKLY PRN 10/21/16 15:00 10/22/16 15:45 DC Regadenoson (Lexiscan) 0.4 mg 1X ONCE 10/23/16 08:45 10/23/16 08:48 DC 10/23/16 09:35 0.4 MG Sodium Chloride 1,000 ml @ 1,000 mls/hr Q1H PRN 10/23/16 09:01 10/23/16 15:00 Lab Laboratory Tests Test 10/22/16 21:11 10/23/16 08:02 Glucose (Fingerstick) 190 mg/dL (70-99) 122 mg/dL (70-99) AMENA QUARLES MD Oct 23, 2016 12:16
--- NOTE | 2016-10-23 14:34 | PDOC ---
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 tobaccoism History of Present Illness History of Present Illness MPI pending, trop 1.4 s/p 2u prbc transfusion, hgb better, goals explained to pt, HD tts per renal cont home meds stress test concerning, cardiac cath Vitals Vitals Vital Signs Date Time Temp Pulse Resp B/P (MAP) Pulse Ox O2 Delivery O2 Flow Rate FiO2 10/23/16 07:00 97.6 66 18 151/51 (84) 92 Room Air 97.6 Physical Exam General: Alert, Oriented X3, Cooperative, No acute distress Heart: Regular rate (SR), Normal S1, Normal S2, Other (S4; MARCY/erbs loudest 4/ 6 systolic murmur) Lungs: Clear Abdomen: Soft Extremities: No cyanosis, Other (2-3+ bilateral LE pitting edema) Skin: No breakdown, No significant lesion Labs LABS Laboratory Tests Test 10/22/16 21:11 10/23/16 08:02 10/23/16 12:43 Glucose (Fingerstick) 190 mg/dL (70-99) 122 mg/dL (70-99) 182 mg/dL (70-99) Review of Systems Review of Systems no n.v.d feels well Assessment and Plan Assessmemt and Plan CV plans cardiac cath tomorrow HD today, renal following Problems Medical Problems: (1) Chest pain Status: Acute (2) CHF exacerbation Status: Acute (3) Non-STEMI (non-ST elevated myocardial infarction) Status: Acute (4) Volume overload Status: Acute Problems: Comment Review of Relevant I have reviewed the following items ashley (where applicable) has been applied. Labs Laboratory Tests Test 10/21/16 17:02 10/21/16 17:50 10/22/16 01:10 10/22/16 07:16 Glucose (Fingerstick) 177 mg/dL (70-99) 131 mg/dL (70-99) Troponin I Quantitative 0.989 ng/mL (0.000-0.055) 1.440 ng/mL (0.000-0.055) White Blood Count 8.7 x10^3/uL (4.0-11.0) Red Blood Count 2.95 x10^6/uL (3.50-5.40) Hemoglobin 8.8 g/dL (12.0-15.5) Hematocrit 25.9 % (36.0-47.0) Mean Corpuscular Volume 88 fL (79-100) Mean Corpuscular Hemoglobin 30 pg (25-35) Mean Corpuscular Hemoglobin Concent 34 g/dL (31-37) Red Cell Distribution Width 15.7 % (11.5-14.5) Platelet Count 221 x10^3/uL (140-400) Neutrophils (%) (Auto) 64 % (31-73) Lymphocytes (%) (Auto) 24 % (24-48) Monocytes (%) (Auto) 8 % (0-9) Eosinophils (%) (Auto) 3 % (0-3) Basophils (%) (Auto) 1 % (0-3) Neutrophils # (Auto) 5.6 x10^3uL (1.8-7.7) Lymphocytes # (Auto) 2.1 x10^3/uL (1.0-4.8) Monocytes # (Auto) 0.7 x10^3/uL (0.0-1.1) Eosinophils # (Auto) 0.2 x10^3/uL (0.0-0.7) Basophils # (Auto) 0.1 x10^3/uL (0.0-0.2) Prothrombin Time 13.4 SEC (11.7-14.0) Prothromb Time International Ratio 1.1 (0.8-1.1) Activated Partial Thromboplast Time 35 SEC (24-38) Sodium Level 139 mmol/L (136-145) Potassium Level 3.9 mmol/L (3.5-5.1) Chloride Level 103 mmol/L (98-107) Carbon Dioxide Level 32 mmol/L (21-32) Anion Gap 4 (6-14) Blood Urea Nitrogen 29 mg/dL (7-20) Creatinine 3.8 mg/dL (0.6-1.0) Estimated GFR (Cockcroft-Gault) 11.9 Glucose Level 249 mg/dL (70-99) Calcium Level 8.3 mg/dL (8.5-10.1) Ferritin 272 ng/mL (8-252) Vitamin B12 Level 395 pg/mL (247-911) Serum Folate 4.02 ng/ml (3.2-20.0) Test 10/22/16 11:33 10/22/16 21:11 10/23/16 08:02 10/23/16 12:43 Glucose (Fingerstick) 153 mg/dL (70-99) 190 mg/dL (70-99) 122 mg/dL (70-99) 182 mg/dL (70-99) Laboratory Tests Test 10/22/16 21:11 10/23/16 08:02 10/23/16 12:43 Glucose (Fingerstick) 190 mg/dL (70-99) 122 mg/dL (70-99) 182 mg/dL (70-99) Medications Current Medications Aspirin (Children'S Aspirin) 324 mg 1X ONCE PO Last administered on 10/21/16 11:49; Start 10/21/16 at 11:00; Stop 10/21/16 at 11:01; Status DC Hydralazine HCl (Apresoline) 10 mg PRN Q4HRS PRN IVP ELEVATED BP, SEE COMMENTS ; Start 10/21/16 at 14:30 Ondansetron HCl (Zofran) 4 mg PRN Q8HRS PRN IV NAUSEA/VOMITING; Start 10/21/16 at 14:45; Stop 10/22/16 at 14:44; Status DC Acetaminophen (Tylenol) 650 mg PRN Q6HRS PRN PO FEVER; Start 10/21/16 at 14:45 Ondansetron HCl (Zofran) 4 mg PRN Q6HRS PRN IV NAUSEA/VOMITING; Start 10/21/16 at 14:45 Hydralazine HCl (Apresoline) 10 mg PRN Q4HRS PRN IVP ELEVATED BP, SEE COMMENTS ; Start 10/21/16 at 14:45; Stop 10/21/16 at 14:54; Status DC Docusate Sodium (Colace) 100 mg PRN DAILY PRN PO CONSTIPATION; Start 10/21/16 at 14:45 Aspirin (Ecotrin) 81 mg DAILY PO Last administered on 10/23/16 10:08; Start 10/21/16 at 15:00 Lisinopril (Prinivil) 60 mg HS PO ; Start 10/21/16 at 21:00; Status Cancel Metolazone (Zaroxolyn) 2.5 mg WEEKLY PRN PO SEE COMMENTS; Start 10/21/16 at 15: 00 Potassium Chloride (Klor-Con) 20 meq WEEKLY PRN PO SEE COMMENTS; Start 10/21/16 at 15:00; Stop 10/22/16 at 15:45; Status DC Calcium Acetate (Phoslo) 667 mg BIDWMEALS PO Last administered on 10/23/16 10: 08; Start 10/21/16 at 17:00 Non-Formulary Medication 200 mg HS PO ; Start 10/21/16 at 21:00; Status UNV Gabapentin (Neurontin) 300 mg DAILY PO Last administered on 10/23/16 10:07; Start 10/22/16 at 09:00 Atorvastatin Calcium (Lipitor) 20 mg QHS PO Last administered on 10/22/16 21:22 ; Start 10/21/16 at 21:00 Insulin Aspart (NovoLOG) 0-9 UNITS TIDWMEALS SQ ; Start 10/21/16 at 17:00 Dextrose (Dextrose 50%-Water Syringe) 12.5 gm PRN Q15MIN PRN IV SEE COMMENTS; Start 10/21/16 at 15:00 Heparin Sodium (Porcine) (Heparin Sq) 5,000 unit Q8HRS SQ Last administered on 10/22/16 21:26; Start 10/21/16 at 16:00 Clopidogrel Bisulfate (Plavix) 75 mg DAILY PO Last administered on 10/23/16 10: 08; Start 10/22/16 at 09:00 Lisinopril (Prinivil) 40 mg QTUTHSASU PO Last administered on 10/22/16 00:21; Start 10/21/16 at 16:00 Sodium Chloride 1,000 ml @ 1,000 mls/hr Q1H PRN IV hypotension; Start 10/21/16 at 21:57; Stop 10/22/16 at 03:56; Status DC Sodium Chloride 1,000 ml @ 400 mls/hr Q2H30M PRN IV PATENCY; Start 10/21/16 at 21:57; Stop 10/22/16 at 09:56; Status DC Info (PHARMACY MONITORING -- do not chart) 1 each PRN DAILY PRN MC SEE COMMENTS ; Start 10/21/16 at 22:00; Stop 10/23/16 at 09:10; Status DC Info (PHARMACY MONITORING -- do not chart) 1 each PRN DAILY PRN MC SEE COMMENTS ; Start 10/21/16 at 22:00; Stop 10/22/16 at 12:26; Status DC Regadenoson (Lexiscan) 0.4 mg 1X ONCE IV Last administered on 10/23/16t 09:35; Start 10/23/16 at 08:45; Stop 10/23/16 at 08:48; Status DC Sodium Chloride 1,000 ml @ 1,000 mls/hr Q1H PRN IV hypotension; Start 10/23/16 at 09:01; Stop 10/23/16 at 15:00 Diphenhydramine HCl (Benadryl) 25 mg 1X PRN PRN IV ITCHING; Start 10/23/16 at 09 :15; Stop 10/24/16 at 09:14 Diphenhydramine HCl (Benadryl) 25 mg 1X PRN PRN IV ITCHING; Start 10/23/16 at 09 :15; Stop 10/24/16 at 09:14 Info (PHARMACY MONITORING -- do not chart) 1 each PRN DAILY PRN MC SEE COMMENTS ; Start 10/23/16 at 09:15 Magnesium Sulfate/ Dextrose 50 ml @ 25 mls/hr PRN DAILY PRN IV for Mag < 1.7 on am labs; Start 10/23/16 at 12:15 Active Scripts Active Reported Plavix (Clopidogrel Bisulfate) 75 Mg Tablet 75 Mg PO DAILY Calcium Acetate 667 Mg Tablet 667 Mg PO BIDWMEALS last dose was this am next dose is wiith supper Tylenol Extra Strength (Acetaminophen) 500 Mg Tablet 500 Mg PO PRN Q12HRS PRN not given in hospital may resume when needed Metolazone 2.5 Mg Tablet 2.5 Mg PO WEEKLY PRN was not given in the hospital Furosemide 40 Mg Tablet 60 Mg PO PRN PRN not given in hospital may take as instructed by provider Potassium Chloride 20 Meq Tab.er.prt 20 Meq PO WEEKLY PRN was not given in hospital Gabapentin 300 Mg Capsule 300 Mg PO DAILY Cranberry (Cranberry Extract) 200 Mg Capsule 200 Mg PO HS not given in hospital may resume when needed Crestor (Rosuvastatin Calcium) 5 Mg Tablet 5 Mg PO HS was not given in the hospital as requested will resume at home Lisinopril 40 Mg Tablet 60 Mg PO HS last dose was last evening Lantus (Insulin Glargine,Hum.rec.anlog) 100 Unit/1 Ml Vial 50 Unit SQ HS refused to take last night stated she would take her own at home Benadryl Allergy (Diphenhydramine Hcl) 25 Mg Tablet 25 Mg PO PRN not given in the hospital Aspir 81 (Aspirin) 81 Mg Tablet.dr 81 Mg PO DAILY last dose was this am resume in am Vitals/I & O Vital Sign - Last 24 Hours 10/22/16 10/22/16 10/22/16 10/22/16 15:00 19:31 20:00 22:19 Temp 98.1 98.0 98.1 98.1 98.0 98.1 Pulse 70 71 61 Resp 18 20 20 B/P (MAP) 155/48 (83) 151/67 (95) 146/60 (88) Pulse Ox 95 94 94 O2 Delivery Room Air Room Air Room Air Room Air 10/23/16 10/23/16 02:40 07:00 Temp 98.1 97.6 98.1 97.6 Pulse 67 66 Resp 20 18 B/P (MAP) 146/61 (89) 151/51 (84) Pulse Ox 93 92 O2 Delivery Room Air Room Air Intake and Output 10/22/16 10/22/16 10/23/16 15:00 23:00 07:00 Intake Total 240 ml 240 ml 650 ml Balance 240 ml 240 ml 650 ml JARED BYRNES MD Oct 23, 2016 14:34
--- NOTE | 2016-10-23 15:02 | PDOC ---
PATRICE HA SHEETING PULLER 10/23/16 1502: CARDIO Progress Notes Date and Time Date of Service 10/23/2016 Time of Evaluation 1410 Subjective Subjective: No Chest Pain, No shortness of breath, No Palpitations, No Dizziness Vitals Vitals Vital Signs Date Time Temp Pulse Resp B/P (MAP) Pulse Ox O2 Delivery O2 Flow Rate FiO2 10/23/16 07:00 97.6 66 18 151/51 (84) 92 Room Air 97.6 Weight Weight [ ] Input and Output Intake and Output Intake and Output 10/23/16 07:00 Intake Total 1130 ml Balance 1130 ml Intake Oral 1130 ml Laboratory Labs Laboratory Tests Test 10/22/16 21:11 10/23/16 08:02 10/23/16 12:43 Glucose (Fingerstick) 190 mg/dL (70-99) 122 mg/dL (70-99) 182 mg/dL (70-99) Physical Exam HEENT: Neck Supple W Full Motion Chest: Symmetric LUNGS: Other (basilar crackles) Heart: S1S2, RRR (SR), murmurs (4/6 systolic murmur loudest at erbs point) Abdomen: Soft N/T Extremities: No Calf Tenderness, Other (2+ bilateral LE pitting edema) Neurology: alert, oriented, follow commands Assessment Assessment 1. Acute diastolic CHF 2. Normocytic Anemia: post transfusion, Hgb stable. 3. Chest pain: multifactorial with contributing ischemia 4. NSTEMI: EF 55%. Abnormal stress test today 5. ESRD 6. HTN: labile 7. DM2/HLP: diet controlled per pt 8. Valvular insufficiency: mod to severe MR 9. 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 10. Tobaccoism with likely COPD: >40 pk yr Recommendations 1. Fluid off loading per HD 2. LHC tomorrow, risks and benefits discussed and agreeable. 3. Continue with secondary prevention. Add low dose coreg. 4. Smoking cessation 5. CBC in AM CARRIE STINSON MD 10/23/16 1628: CARDIO Progress Notes Assessment Assessment Patient seen and examined. Agree with AUTOMATIC BLOCKER's assessment and plan. Continue fluid removal with hemodialysis per nephrology team for acute on chronic diastolic heart failure. Lexiscan nuclear stress test showed inferolateral wall ischemia with transient ischemic dilatation. Plan for left heart catheterization and possible angioplasty tomorrow. PATRICE HA APRN Oct 23, 2016 15:02 CARRIE STINSON MD Oct 23, 2016 16:28
[2016-10-23] MEDS: LISINOPRIL 40 MG TABLET. PO SCH (18:57)
[2016-10-23] MEDS: CARVEDILOL 3.125 MG TABLET. PO SCH (18:57)
[2016-10-23 19:29] VITALS: BP 137/55
[2016-10-23] MEDS: ATORVASTATIN CALCIUM 20 MG TABLET PO SCH (21:09)
[2016-10-23 23:09] VITALS: BP 139/59
[2016-10-24] VITALS (11 sets, daily range): BP systolic 125–180; BP diastolic 52–73
[2016-10-24 04:38] LABS: BASO % 1 % (0-3); EOS % 3 % (0-3); HEMOGLOBIN 8.3 g/dL (12.0-15.5); LYMPH # 2.4 x10^3/uL (1.0-4.8); LYMPH % 28 % (24-48); MEAN CORPUSCULAR HEMOGLOBIN 29 pg (25-35); MEAN CORPUSCULAR HGB CONC 33 g/dL (31-37); MEAN CORPUSCULAR VOLUME 88 fL (79-100); MONO % 9 % (0-9); NEUT % 59 % (31-73); PLATELET COUNT 200 x10^3/uL (140-400); RED BLOOD COUNT 2.83 x10^6/uL (3.50-5.40); RED CELL DISTRIBUTION WIDTH 15.3 % (11.5-14.5); WHITE BLOOD COUNT 8.7 x10^3/uL (4.0-11.0)
[2016-10-24 05:02] LABS: ALBUMIN 1.9 g/dL (3.4-5.0); CREATININE 3.4 mg/dL (0.6-1.0); GFR 13.6; PHOSPHORUS 3.3 mg/dL (2.6-4.7); POTASSIUM 3.8 mmol/L (3.5-5.1)
[2016-10-24] MEDS: HEPARIN PF for SUB-Q USE 5,000 UNIT/0.5 ML VIAL. SQ SCH ×3 (06:00→21:31)
[2016-10-24] MEDS: INSULIN ASPART 300 UNITS/3 ML INSULN.PEN SQ SCH ×3 (08:00→17:00)
[2016-10-24] MEDS: CALCIUM ACETATE 667 MG CAPSULE PO SCH ×2 (08:00→17:54)
[2016-10-24] MEDS: CARVEDILOL 3.125 MG TABLET. PO SCH ×2 (08:48→17:55)
[2016-10-24] MEDS: CLOPIDOGREL BISULFATE 75 MG TABLET PO SCH (09:00)
[2016-10-24] MEDS: GABAPENTIN 300 MG CAPSULE. PO SCH (10:51)
[2016-10-24] MEDS ORDERED: IOHEXOL 300 MG/ML 100ML VIAL. ONE (10:57)
[2016-10-24] MEDS ORDERED: LIDOCAINE 2% 20 ML VIAL. ONE (10:58)
--- NOTE | 2016-10-24 12:33 | PDOC ---
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 tobaccoism, cessation discussed again History of Present Illness History of Present Illness MPI showed concern for reversible ischemia cardiac cath today, she is very focused on going home trop 1.4 s/p 2u prbc transfusion, HD tts per renal cont home meds stress test concerning, cardiac cath Vitals Vitals Vital Signs Date Time Temp Pulse Resp B/P (MAP) Pulse Ox O2 Delivery O2 Flow Rate FiO2 10/24/16 11:00 97.4 55 19 125/54 (77) 92 Room Air 97.4 Physical Exam General: Alert, Oriented X3, Cooperative, No acute distress Heart: Regular rate (SR), Normal S1, Normal S2, Other (S4; MARCY/erbs loudest 4/ 6 systolic murmur) Lungs: Clear Abdomen: Soft Extremities: No cyanosis, Other (2-3+ bilateral LE pitting edema) Skin: No breakdown, No significant lesion Labs LABS Laboratory Tests Test 10/23/16 12:43 10/23/16 18:50 10/24/16 04:00 10/24/16 08:08 Glucose (Fingerstick) 182 mg/dL (70-99) 121 mg/dL (70-99) 120 mg/dL (70-99) White Blood Count 8.7 x10^3/uL (4.0-11.0) Red Blood Count 2.83 x10^6/uL (3.50-5.40) Hemoglobin 8.3 g/dL (12.0-15.5) Hematocrit 25.0 % (36.0-47.0) Mean Corpuscular Volume 88 fL (79-100) Mean Corpuscular Hemoglobin 29 pg (25-35) Mean Corpuscular Hemoglobin Concent 33 g/dL (31-37) Red Cell Distribution Width 15.3 % (11.5-14.5) Platelet Count 200 x10^3/uL (140-400) Neutrophils (%) (Auto) 59 % (31-73) Lymphocytes (%) (Auto) 28 % (24-48) Monocytes (%) (Auto) 9 % (0-9) Eosinophils (%) (Auto) 3 % (0-3) Basophils (%) (Auto) 1 % (0-3) Neutrophils # (Auto) 5.1 x10^3uL (1.8-7.7) Lymphocytes # (Auto) 2.4 x10^3/uL (1.0-4.8) Monocytes # (Auto) 0.8 x10^3/uL (0.0-1.1) Eosinophils # (Auto) 0.3 x10^3/uL (0.0-0.7) Basophils # (Auto) 0.0 x10^3/uL (0.0-0.2) Sodium Level 141 mmol/L (136-145) Potassium Level 3.8 mmol/L (3.5-5.1) Chloride Level 104 mmol/L (98-107) Carbon Dioxide Level 29 mmol/L (21-32) Anion Gap 8 (6-14) Blood Urea Nitrogen 27 mg/dL (7-20) Creatinine 3.4 mg/dL (0.6-1.0) Estimated GFR (Cockcroft-Gault) 13.6 Glucose Level 130 mg/dL (70-99) Calcium Level 9.0 mg/dL (8.5-10.1) Phosphorus Level 3.3 mg/dL (2.6-4.7) Magnesium Level 1.9 mg/dL (1.8-2.4) Albumin 1.9 g/dL (3.4-5.0) Test 10/24/16 11:37 Glucose (Fingerstick) 122 mg/dL (70-99) Assessment and Plan Assessmemt and Plan Problems Medical Problems: (1) Chest pain Status: Acute (2) CHF exacerbation Status: Acute (3) Non-STEMI (non-ST elevated myocardial infarction) Status: Acute (4) Volume overload Status: Acute Problems: Comment Review of Relevant I have reviewed the following items ashley (where applicable) has been applied. Labs Laboratory Tests Test 10/22/16 21:11 10/23/16 08:02 10/23/16 12:43 10/23/16 18:50 Glucose (Fingerstick) 190 mg/dL (70-99) 122 mg/dL (70-99) 182 mg/dL (70-99) 121 mg/dL (70-99) Test 10/24/16 04:00 10/24/16 08:08 10/24/16 11:37 White Blood Count 8.7 x10^3/uL (4.0-11.0) Red Blood Count 2.83 x10^6/uL (3.50-5.40) Hemoglobin 8.3 g/dL (12.0-15.5) Hematocrit 25.0 % (36.0-47.0) Mean Corpuscular Volume 88 fL (79-100) Mean Corpuscular Hemoglobin 29 pg (25-35) Mean Corpuscular Hemoglobin Concent 33 g/dL (31-37) Red Cell Distribution Width 15.3 % (11.5-14.5) Platelet Count 200 x10^3/uL (140-400) Neutrophils (%) (Auto) 59 % (31-73) Lymphocytes (%) (Auto) 28 % (24-48) Monocytes (%) (Auto) 9 % (0-9) Eosinophils (%) (Auto) 3 % (0-3) Basophils (%) (Auto) 1 % (0-3) Neutrophils # (Auto) 5.1 x10^3uL (1.8-7.7) Lymphocytes # (Auto) 2.4 x10^3/uL (1.0-4.8) Monocytes # (Auto) 0.8 x10^3/uL (0.0-1.1) Eosinophils # (Auto) 0.3 x10^3/uL (0.0-0.7) Basophils # (Auto) 0.0 x10^3/uL (0.0-0.2) Sodium Level 141 mmol/L (136-145) Potassium Level 3.8 mmol/L (3.5-5.1) Chloride Level 104 mmol/L (98-107) Carbon Dioxide Level 29 mmol/L (21-32) Anion Gap 8 (6-14) Blood Urea Nitrogen 27 mg/dL (7-20) Creatinine 3.4 mg/dL (0.6-1.0) Estimated GFR (Cockcroft-Gault) 13.6 Glucose Level 130 mg/dL (70-99) Calcium Level 9.0 mg/dL (8.5-10.1) Phosphorus Level 3.3 mg/dL (2.6-4.7) Magnesium Level 1.9 mg/dL (1.8-2.4) Albumin 1.9 g/dL (3.4-5.0) Glucose (Fingerstick) 120 mg/dL (70-99) 122 mg/dL (70-99) Laboratory Tests Test 10/23/16 12:43 10/23/16 18:50 10/24/16 04:00 10/24/16 08:08 Glucose (Fingerstick) 182 mg/dL (70-99) 121 mg/dL (70-99) 120 mg/dL (70-99) White Blood Count 8.7 x10^3/uL (4.0-11.0) Red Blood Count 2.83 x10^6/uL (3.50-5.40) Hemoglobin 8.3 g/dL (12.0-15.5) Hematocrit 25.0 % (36.0-47.0) Mean Corpuscular Volume 88 fL (79-100) Mean Corpuscular Hemoglobin 29 pg (25-35) Mean Corpuscular Hemoglobin Concent 33 g/dL (31-37) Red Cell Distribution Width 15.3 % (11.5-14.5) Platelet Count 200 x10^3/uL (140-400) Neutrophils (%) (Auto) 59 % (31-73) Lymphocytes (%) (Auto) 28 % (24-48) Monocytes (%) (Auto) 9 % (0-9) Eosinophils (%) (Auto) 3 % (0-3) Basophils (%) (Auto) 1 % (0-3) Neutrophils # (Auto) 5.1 x10^3uL (1.8-7.7) Lymphocytes # (Auto) 2.4 x10^3/uL (1.0-4.8) Monocytes # (Auto) 0.8 x10^3/uL (0.0-1.1) Eosinophils # (Auto) 0.3 x10^3/uL (0.0-0.7) Basophils # (Auto) 0.0 x10^3/uL (0.0-0.2) Sodium Level 141 mmol/L (136-145) Potassium Level 3.8 mmol/L (3.5-5.1) Chloride Level 104 mmol/L (98-107) Carbon Dioxide Level 29 mmol/L (21-32) Anion Gap 8 (6-14) Blood Urea Nitrogen 27 mg/dL (7-20) Creatinine 3.4 mg/dL (0.6-1.0) Estimated GFR (Cockcroft-Gault) 13.6 Glucose Level 130 mg/dL (70-99) Calcium Level 9.0 mg/dL (8.5-10.1) Phosphorus Level 3.3 mg/dL (2.6-4.7) Magnesium Level 1.9 mg/dL (1.8-2.4) Albumin 1.9 g/dL (3.4-5.0) Test 10/24/16 11:37 Glucose (Fingerstick) 122 mg/dL (70-99) Medications Current Medications Aspirin (Children'S Aspirin) 324 mg 1X ONCE PO Last administered on 10/21/16 11:49; Start 10/21/16 at 11:00; Stop 10/21/16 at 11:01; Status DC Hydralazine HCl (Apresoline) 10 mg PRN Q4HRS PRN IVP ELEVATED BP, SEE COMMENTS ; Start 10/21/16 at 14:30 Ondansetron HCl (Zofran) 4 mg PRN Q8HRS PRN IV NAUSEA/VOMITING; Start 10/21/16 at 14:45; Stop 10/22/16 at 14:44; Status DC Acetaminophen (Tylenol) 650 mg PRN Q6HRS PRN PO FEVER; Start 10/21/16 at 14:45 Ondansetron HCl (Zofran) 4 mg PRN Q6HRS PRN IV NAUSEA/VOMITING; Start 10/21/16 at 14:45 Hydralazine HCl (Apresoline) 10 mg PRN Q4HRS PRN IVP ELEVATED BP, SEE COMMENTS ; Start 10/21/16 at 14:45; Stop 10/21/16 at 14:54; Status DC Docusate Sodium (Colace) 100 mg PRN DAILY PRN PO CONSTIPATION; Start 10/21/16 at 14:45 Aspirin (Ecotrin) 81 mg DAILY PO Last administered on 10/23/16 10:08; Start 10/21/16 at 15:00 Lisinopril (Prinivil) 60 mg HS PO ; Start 10/21/16 at 21:00; Status Cancel Metolazone (Zaroxolyn) 2.5 mg WEEKLY PRN PO SEE COMMENTS; Start 10/21/16 at 15: 00 Potassium Chloride (Klor-Con) 20 meq WEEKLY PRN PO SEE COMMENTS; Start 10/21/16 at 15:00; Stop 10/22/16 at 15:45; Status DC Calcium Acetate (Phoslo) 667 mg BIDWMEALS PO Last administered on 10/23/16 18: 51; Start 10/21/16 at 17:00 Non-Formulary Medication 200 mg HS PO ; Start 10/21/16 at 21:00; Status UNV Gabapentin (Neurontin) 300 mg DAILY PO Last administered on 10/24/16 10:51; Start 10/22/16 at 09:00 Atorvastatin Calcium (Lipitor) 20 mg QHS PO Last administered on 10/23/16 21:09 ; Start 10/21/16 at 21:00 Insulin Aspart (NovoLOG) 0-9 UNITS TIDWMEALS SQ ; Start 10/21/16 at 17:00 Dextrose (Dextrose 50%-Water Syringe) 12.5 gm PRN Q15MIN PRN IV SEE COMMENTS; Start 10/21/16 at 15:00 Heparin Sodium (Porcine) (Heparin Sq) 5,000 unit Q8HRS SQ Last administered on 10/23/16 21:13; Start 10/21/16 at 16:00 Clopidogrel Bisulfate (Plavix) 75 mg DAILY PO Last administered on 10/23/16 10: 08; Start 10/22/16 at 09:00 Lisinopril (Prinivil) 40 mg QTUTHSASU PO Last administered on 10/23/16 18:57; Start 10/21/16 at 16:00 Sodium Chloride 1,000 ml @ 1,000 mls/hr Q1H PRN IV hypotension; Start 10/21/16 at 21:57; Stop 10/22/16 at 03:56; Status DC Sodium Chloride 1,000 ml @ 400 mls/hr Q2H30M PRN IV PATENCY; Start 10/21/16 at 21:57; Stop 10/22/16 at 09:56; Status DC Info (PHARMACY MONITORING -- do not chart) 1 each PRN DAILY PRN MC SEE COMMENTS ; Start 10/21/16 at 22:00; Stop 10/23/16 at 09:10; Status DC Info (PHARMACY MONITORING -- do not chart) 1 each PRN DAILY PRN MC SEE COMMENTS ; Start 10/21/16 at 22:00; Stop 10/22/16 at 12:26; Status DC Regadenoson (Lexiscan) 0.4 mg 1X ONCE IV Last administered on 10/23/16 09:35; Start 10/23/16 at 08:45; Stop 10/23/16 at 08:48; Status DC Sodium Chloride 1,000 ml @ 1,000 mls/hr Q1H PRN IV hypotension; Start 10/23/16 at 09:01; Stop 10/23/16 at 15:00; Status DC Diphenhydramine HCl (Benadryl) 25 mg 1X PRN PRN IV ITCHING; Start 10/23/16 at 09 :15; Stop 10/24/16 at 09:14; Status DC Diphenhydramine HCl (Benadryl) 25 mg 1X PRN PRN IV ITCHING; Start 10/23/16 at 09 :15; Stop 10/24/16 at 09:14; Status DC Info (PHARMACY MONITORING -- do not chart) 1 each PRN DAILY PRN MC SEE COMMENTS ; Start 10/23/16 at 09:15 Magnesium Sulfate/ Dextrose 50 ml @ 25 mls/hr PRN DAILY PRN IV for Mag < 1.7 on am labs; Start 10/23/16 at 12:15 Carvedilol (Coreg) 3.125 mg BIDWMEALS PO Last administered on 10/24/16 08:48; Start 10/23/16 at 17:00 Iohexol (Omnipaque 300 Mg/ml) 100 ml STK-MED ONCE .ROUTE ; Start 10/24/16 at 10: 57; Stop 10/24/16 at 10:58; Status DC Heparin Sodium/ Sodium Chloride 1,000 ml @ As Directed STK-MED ONCE .ROUTE ; Start 10/24/16 at 10:57; Stop 10/24/16 at 10:58; Status DC Lidocaine HCl 20 ml STK-MED ONCE .ROUTE ; Start 10/24/16 at 10:58; Stop 10/24/16 at 10:59; Status DC Active Scripts Active Reported Plavix (Clopidogrel Bisulfate) 75 Mg Tablet 75 Mg PO DAILY Calcium Acetate 667 Mg Tablet 667 Mg PO BIDWMEALS last dose was this am next dose is wiith supper Tylenol Extra Strength (Acetaminophen) 500 Mg Tablet 500 Mg PO PRN Q12HRS PRN not given in hospital may resume when needed Metolazone 2.5 Mg Tablet 2.5 Mg PO WEEKLY PRN was not given in the hospital Furosemide 40 Mg Tablet 60 Mg PO PRN PRN not given in hospital may take as instructed by provider Potassium Chloride 20 Meq Tab.er.prt 20 Meq PO WEEKLY PRN was not given in hospital Gabapentin 300 Mg Capsule 300 Mg PO DAILY Cranberry (Cranberry Extract) 200 Mg Capsule 200 Mg PO HS not given in hospital may resume when needed Crestor (Rosuvastatin Calcium) 5 Mg Tablet 5 Mg PO HS was not given in the hospital as requested will resume at home Lisinopril 40 Mg Tablet 60 Mg PO HS last dose was last evening Lantus (Insulin Glargine,Hum.rec.anlog) 100 Unit/1 Ml Vial 50 Unit SQ HS refused to take last night stated she would take her own at home Benadryl Allergy (Diphenhydramine Hcl) 25 Mg Tablet 25 Mg PO PRN not given in the hospital Aspir 81 (Aspirin) 81 Mg Tablet.dr 81 Mg PO DAILY last dose was this am resume in am Vitals/I & O Vital Sign - Last 24 Hours 10/23/16 10/23/16 10/23/16 10/23/16 18:57 18:57 19:29 20:00 Temp 98.1 98.1 Pulse 75 75 63 Resp 18 B/P (MAP) 152/66 152/66 137/55 (82) Pulse Ox 95 O2 Delivery Room Air Room Air 10/23/16 10/24/16 10/24/16 10/24/16 23:09 02:55 07:00 08:00 Temp 98.2 98.3 97.9 98.2 98.3 97.9 Pulse 73 57 56 Resp 18 18 19 B/P (MAP) 139/59 (85) 143/58 (86) 139/58 (85) Pulse Ox 94 95 93 O2 Delivery Room Air Room Air Room Air Room Air 10/24/16 10/24/16 08:48 11:00 Temp 97.4 97.4 Pulse 56 55 Resp 19 B/P (MAP) 139/58 125/54 (77) Pulse Ox 92 O2 Delivery Room Air Intake and Output 10/23/16 10/23/16 10/24/16 15:00 23:00 07:00 Intake Total 250 ml 200 ml Output Total 400 ml Balance 250 ml -200 ml JARED BYRNES MD Oct 24, 2016 12:33
[2016-10-24] MEDS ORDERED: MIDAZOLAM HCL/PF 2 MG/2 ML VIAL. ONE ×2 (16:01→16:17)
[2016-10-24] MEDS ORDERED: fentaNYL PF VIAL 100 MCG/2 ML VIAL ONE ×2 (16:01→16:17)
[2016-10-24] MEDS ORDERED: BIVALIRUDIN 250 MG VIAL. IV ONE ×2 (16:26→16:45)
[2016-10-24] MEDS ORDERED: fentaNYL PF VIAL 100 MCG/2 ML VIAL IV ONE (16:30)
[2016-10-24] MEDS ORDERED: IOHEXOL 300 MG/ML 100ML VIAL. IART ONE (16:30)
[2016-10-24] MEDS ORDERED: LIDOCAINE 2% 20 ML VIAL. IJ ONE (16:30)
[2016-10-24] MEDS ORDERED: MIDAZOLAM HCL/PF 2 MG/2 ML VIAL. IV ONE (16:30)
[2016-10-24] MEDS ORDERED: CONTRAST GIVEN MC PRN (16:30)
[2016-10-24] MEDS ORDERED: CLOPIDOGREL BISULFATE 75 MG TABLET PO ONE (17:00)
--- NOTE | 2016-10-24 17:08 | CARD ---
APPROVED REPORT Procedure(s) performed: 1. Left heart catheterization, selective coronary angiography 2. Successful PCI/bare metal stent placement to the left anterior descending artery INDICATION The indication(s) include : Non-stemi and positive stress test. PROCEDURE NARRATIVE After explaining the risks, benefits and alternative options, informed consent was obtained from meggan ent. Patient was brought to the cardiac Cathode Ray Tube Assembler and her right groin was prepped and draped in the us ual fashion. 20 mL of 2% lidocaine was infiltrated into the skin and subcutaneous tissues for local a nesthesia. Arterial access was obtained in the right common femoral artery and a 6 Jordanian sheath was inserted. 6 Jordanian JL4 and 6 Jordanian JR4 catheters placed to perform selective angiography of the left and right coronary arteries. The following findings were noted. FINDINGS 1. The left main coronary artery arose from the left sinus of Valsalva, gave rise to the left anteri or descending and left circumflex arteries and did not show any significant stenosis. 2. The left anterior descending artery showed a calcified 80% stenosis in the midsegment. The diagon al branch which is a small to medium caliber vessel showed 70% stenosis the proximal segment, 50% phuong nosis in the midsegment and moderate diffuse disease distally. 3. The left circumflex artery showed long 40% stenosis in the proximal segment of the obtuse margina l branch. 4. The right coronary artery was a dominant vessel arising from the right sinus of Valsalva that oscar wed a long 40% stenosis involving the mid and mid to distal segments without any critical discrete le norbert. INTERVENTION The left main coronary artery was engaged with a 6 Jordanian XB 3.5 guide catheter and the stenosis in t he midsegment of the left anterior descending artery was crossed with a 0.014 inch [employer] Management[employer] mónica dewire. This was predilated with a 2.5 x 15 mm trek balloon, treated successfully with a 3.0 x 28 mm MultiLink vision stent and postdilated with a 3.0 x 15 mm noncompliant NC trek balloon. Follow-up ang iography showed resolution of the stenosis with SCOTT-3 distal flow. Due to diffuse distal disease in the diagonal branch, we decided to manage lesions in this vessel medically. Patient tolerated the pro cedure well. Hemostasis was achieved using mync closure device. There were no immediate complications . Conclusion 1. Severe single-vessel coronary artery disease involving left anterior descending artery with moder ate stenoses in other vessels 2. Successful PCI/stent placement to the left anterior descending artery Recommendations 1. Aspirin 325 mg daily for 2-4 weeks and then 81 mg daily 2. Plavix 75 mg daily for atleast four weeks and preferably one year 3. Cardiovascular risk factor modification
[2016-10-24] MEDS: ASPIRIN ENTERIC COATED 81 MG TABLET.DR. PO SCH (17:56)
[2016-10-24] MEDS: ATORVASTATIN CALCIUM 20 MG TABLET PO SCH (21:32)
[2016-10-25 03:00] VITALS: BP 173/75
[2016-10-25] MEDS: HEPARIN PF for SUB-Q USE 5,000 UNIT/0.5 ML VIAL. SQ SCH ×2 (06:00→14:00)
[2016-10-25 07:00] VITALS: BP 152/93
[2016-10-25] MEDS: CARVEDILOL 3.125 MG TABLET. PO SCH (08:00)
[2016-10-25] MEDS: INSULIN ASPART 300 UNITS/3 ML INSULN.PEN SQ SCH ×2 (08:00→12:00)
[2016-10-25] MEDS: CALCIUM ACETATE 667 MG CAPSULE PO SCH (08:00)
[2016-10-25 10:11] LABS: ALBUMIN 1.9 g/dL (3.4-5.0); CALCIUM 8.4 mg/dL (8.5-10.1); CREATININE 4.5 mg/dL (0.6-1.0); GFR 9.8; PHOSPHORUS 4.8 mg/dL (2.6-4.7); POTASSIUM 4.7 mmol/L (3.5-5.1)
[2016-10-25 11:00] VITALS: BP 104/55
--- NOTE | 2016-10-25 11:04 | PDOC ---
CARDIO Progress Notes Date and Time Date of Service 10/25/16 Time of Evaluation 1100 Subjective Subjective: No Chest Pain, No shortness of breath, No Palpitations, No Dizziness Vitals Vitals Vital Signs Date Time Temp Pulse Resp B/P (MAP) Pulse Ox O2 Delivery O2 Flow Rate FiO2 10/25/16 07:00 97.9 91 152/93 (112) 95 Room Air 97.9 10/25/16 03:00 20 10/24/16 16:30 2.0 Weight Weight [ ] Input and Output Intake and Output Intake and Output 10/25/16 07:00 Intake Total 1440 ml Output Total 1425 ml Balance 15 ml Intake Oral 1440 ml Output Urine Total 1425 ml Laboratory Labs Laboratory Tests Test 10/24/16 11:37 10/24/16 20:48 10/25/16 07:37 10/25/16 09:45 Glucose (Fingerstick) 122 mg/dL (70-99) 299 mg/dL (70-99) 129 mg/dL (70-99) Sodium Level 137 mmol/L (136-145) Potassium Level 4.7 mmol/L (3.5-5.1) Chloride Level 102 mmol/L (98-107) Carbon Dioxide Level 30 mmol/L (21-32) Anion Gap 5 (6-14) Blood Urea Nitrogen 34 mg/dL (7-20) Creatinine 4.5 mg/dL (0.6-1.0) Estimated GFR (Cockcroft-Gault) 9.8 Glucose Level 189 mg/dL (70-99) Calcium Level 8.4 mg/dL (8.5-10.1) Phosphorus Level 4.8 mg/dL (2.6-4.7) Magnesium Level 1.9 mg/dL (1.8-2.4) Albumin 1.9 g/dL (3.4-5.0) Physical Exam HEENT: Neck Supple W Full Motion Chest: Symmetric LUNGS: Clear to Auscultation, Other Heart: S1S2, RRR (SR), murmurs (3/6 systolic murmur ) Abdomen: Soft N/T Extremities: No Calf Tenderness, Other (right femorial arteriotomy site soft, clean, and dry. No erythema, ecchymosis, or hematoma present. Neurovascular status intact. ) Neurology: alert, oriented, follow commands Assessment Assessment 1. Acute diastolic CHF; LVEF 55%. now compensated. Continue fluid offloading/ balance via HD as per nephrology. 2. Normocytic Anemia: post transfusion, Hgb stable. 3. CAD; s/p BMS to LAD. No acute events overnight. 4. ESRD on HD 5. HTN: better controlled 6. DM2/HLP: 7. Valvular insufficiency: mod to severe MR. continue medical management 8. Tobaccoism with likely COPD: >40 pk yr Recommendations Continue secondary prevention measures including DAPT with ASA and Plavix. Risk stratification modification Cardiac rehab referral May discharge from a CV standpoint and f/u with primary sweater operator, Dr. Agee in 4 weeks. ESTEPHANIA JACOBO APRN Oct 25, 2016 11:04
[2016-10-25] MEDS ORDERED: IV NORMAL SALINE 1000ML BAG 1,000 ML IV PRN ×2 (11:27)
[2016-10-25] MEDS ORDERED: DIALYSIS PATIENT. MC PRN ×2 (11:30)
[2016-10-25] MEDS ORDERED: LISI40TA PO (14:48)
[2016-10-25] MEDS ORDERED: CARV3.122 PO (14:48)
--- NOTE | 2016-10-25 15:21 | PDOC3 ---
Discharge Summary Visit Information Date of Admission: Oct 21, 2016 Date of Discharge: Oct 25, 2016 Admitting Diagnosis: angina in CAD Final Diagnosis unstable angina, concern for new CAD dyspnea, acute diastolic CHF exacerbation due to missed HD normocytic anemia, esrd anemia of CKD chest tightness, pain elevated troponin with chf, esrd ESRD on hd t,th,s hyperkalemia mild malnutrition, has worsened since admit, dm2, not on meds hld Hx of recent [employer]AND[employer] MAN/stent to lef subclavian artery tobaccoism, Problems Medical Problems: (1) Chest pain Status: Acute (2) CHF exacerbation Status: Acute (3) Non-STEMI (non-ST elevated myocardial infarction) Status: Acute (4) Volume overload Status: Acute Brief Hospital Course Allergies Allergies Coded Allergies Type Severity Reaction Last Updated Verified ciprofloxacin Allergy Intermediate Rash 01/25/15 Yes morphine Adverse Reaction Severe makes her skin crawl 01/25/15 Yes oxycodone Adverse Reaction Severe makes her skin crawl 01/25/15 Yes adhesive Adverse Reaction Intermediate blisters 01/25/15 Yes Vital Signs Vital Signs Date Time Temp Pulse Resp B/P (MAP) Pulse Ox O2 Delivery O2 Flow Rate FiO2 10/25/16 11:00 98.1 90 16 104/55 (71) 92 Nasal Cannula 2.0 98.1 Lab Results Laboratory Tests Test 10/23/16 18:50 10/24/16 04:00 10/24/16 08:08 10/24/16 11:37 Glucose (Fingerstick) 121 mg/dL (70-99) 120 mg/dL (70-99) 122 mg/dL (70-99) White Blood Count 8.7 x10^3/uL (4.0-11.0) Red Blood Count 2.83 x10^6/uL (3.50-5.40) Hemoglobin 8.3 g/dL (12.0-15.5) Hematocrit 25.0 % (36.0-47.0) Mean Corpuscular Volume 88 fL (79-100) Mean Corpuscular Hemoglobin 29 pg (25-35) Mean Corpuscular Hemoglobin Concent 33 g/dL (31-37) Red Cell Distribution Width 15.3 % (11.5-14.5) Platelet Count 200 x10^3/uL (140-400) Neutrophils (%) (Auto) 59 % (31-73) Lymphocytes (%) (Auto) 28 % (24-48) Monocytes (%) (Auto) 9 % (0-9) Eosinophils (%) (Auto) 3 % (0-3) Basophils (%) (Auto) 1 % (0-3) Neutrophils # (Auto) 5.1 x10^3uL (1.8-7.7) Lymphocytes # (Auto) 2.4 x10^3/uL (1.0-4.8) Monocytes # (Auto) 0.8 x10^3/uL (0.0-1.1) Eosinophils # (Auto) 0.3 x10^3/uL (0.0-0.7) Basophils # (Auto) 0.0 x10^3/uL (0.0-0.2) Sodium Level 141 mmol/L (136-145) Potassium Level 3.8 mmol/L (3.5-5.1) Chloride Level 104 mmol/L (98-107) Carbon Dioxide Level 29 mmol/L (21-32) Anion Gap 8 (6-14) Blood Urea Nitrogen 27 mg/dL (7-20) Creatinine 3.4 mg/dL (0.6-1.0) Estimated GFR (Cockcroft-Gault) 13.6 Glucose Level 130 mg/dL (70-99) Calcium Level 9.0 mg/dL (8.5-10.1) Phosphorus Level 3.3 mg/dL (2.6-4.7) Magnesium Level 1.9 mg/dL (1.8-2.4) Albumin 1.9 g/dL (3.4-5.0) Test 10/24/16 20:48 10/25/16 07:37 10/25/16 09:45 Glucose (Fingerstick) 299 mg/dL (70-99) 129 mg/dL (70-99) Sodium Level 137 mmol/L (136-145) Potassium Level 4.7 mmol/L (3.5-5.1) Chloride Level 102 mmol/L (98-107) Carbon Dioxide Level 30 mmol/L (21-32) Anion Gap 5 (6-14) Blood Urea Nitrogen 34 mg/dL (7-20) Creatinine 4.5 mg/dL (0.6-1.0) Estimated GFR (Cockcroft-Gault) 9.8 Glucose Level 189 mg/dL (70-99) Calcium Level 8.4 mg/dL (8.5-10.1) Phosphorus Level 4.8 mg/dL (2.6-4.7) Magnesium Level 1.9 mg/dL (1.8-2.4) Albumin 1.9 g/dL (3.4-5.0) Laboratory Tests Test 10/24/16 20:48 10/25/16 07:37 10/25/16 09:45 Glucose (Fingerstick) 299 mg/dL (70-99) 129 mg/dL (70-99) Sodium Level 137 mmol/L (136-145) Potassium Level 4.7 mmol/L (3.5-5.1) Chloride Level 102 mmol/L (98-107) Carbon Dioxide Level 30 mmol/L (21-32) Anion Gap 5 (6-14) Blood Urea Nitrogen 34 mg/dL (7-20) Creatinine 4.5 mg/dL (0.6-1.0) Estimated GFR (Cockcroft-Gault) 9.8 Glucose Level 189 mg/dL (70-99) Calcium Level 8.4 mg/dL (8.5-10.1) Phosphorus Level 4.8 mg/dL (2.6-4.7) Magnesium Level 1.9 mg/dL (1.8-2.4) Albumin 1.9 g/dL (3.4-5.0) Brief Hospital Course Ms. Glover is a 66 old female admitted for complains of chest pain and SOA. missed dialysis X1, and was due on arrival chest pain, aginal, stress test showed concern for revesrible, CArdiac cath Conclusion from 8.4 1. Severe single-vessel coronary artery disease involving left anterior descending artery with moderate stenoses in other vessels 2. Successful PCI/stent placement to the left anterior descending artery Discharge Information Condition at Discharge: Improved Follow Up: Weeks Disposition/Orders: D/C to Home Scheduled Aspirin (Aspir 81), 81 MG PO DAILY, (Reported) Calcium Acetate (Calcium Acetate), 667 MG PO BIDWMEALS, (Reported) Carvedilol (Carvedilol), 3.125 MG PO BIDWMEALS Clopidogrel Bisulfate (Plavix), 75 MG PO DAILY, (Reported) Cranberry Extract (Cranberry), 200 MG PO HS, (Reported) Gabapentin (Gabapentin), 300 MG PO DAILY, (Reported) Insulin Glargine,Hum.rec.anlog (Lantus), 50 UNIT SQ HS, (Reported) Lisinopril (Lisinopril), 40 MG PO QTUTHSASU Rosuvastatin Calcium (Crestor), 5 MG PO HS, (Reported) Scheduled PRN Acetaminophen (Tylenol Extra Strength), 500 MG PO PRN Q12HRS PRN for PAIN, ( Reported) Diphenhydramine Hcl (Benadryl Allergy), 25 MG PO for ALLERGIES, (Reported) Furosemide (Furosemide), 60 MG PO PRN PRN for SEE COMMENTS, (Reported) Metolazone (Metolazone), 2.5 MG PO WEEKLY PRN for SEE COMMENTS, (Reported) Potassium Chloride (Potassium Chloride), 20 MEQ PO WEEKLY PRN for SEE COMMENTS, (Reported) Discontinued Medications Lisinopril (Lisinopril), 60 MG PO HS, (Reported) Patient Instructions Patient Instructions new medicine coreg, Lisinopril dose changed to 40 mg after HD time < 30min JARED BYRNES MD Oct 25, 2016 15:21
== END 2016-10-25 16:31 | disposition home or self-care (01) | DRG 248 ==
LOC: ER 10:50 → 2 NORTH 12:48
PROVIDERS: ADMIT Internal Medicine; ATTEND Internal Medicine
PROC: 30233N1 Transfusion of Nonautologous Red Blood Cells into Peripheral Vein, Percutaneous Approach (ICD-10-PCS; 2016-10-21)
PROC: 5A1D00Z (ICD-10-PCS; 2016-10-21)
PROC: 02703DZ Dilation of Coronary Artery, One Artery with Intraluminal Device, Percutaneous Approach (ICD-10-PCS; principal; 2016-10-24)
PROC: B2111ZZ Fluoroscopy of Multiple Coronary Arteries using Low Osmolar Contrast (ICD-10-PCS; 2016-10-24)
DX: I21.4 Non-ST elevation (NSTEMI) myocardial infarction (principal); N18.6 End stage renal disease; I50.33 Acute on chronic diastolic (congestive) heart failure; I13.2 Hypertensive heart and chronic kidney disease with heart failure and with stage 5 chronic kidney disease, or end stage renal disease; E44.1 Mild protein-calorie malnutrition; I25.110 Atherosclerotic heart disease of native coronary artery with unstable angina pectoris; E11.22 Type 2 diabetes mellitus with diabetic chronic kidney disease; F17.210 Nicotine dependence, cigarettes, uncomplicated; F32.9 Major depressive disorder, single episode, unspecified; E87.5 Hyperkalemia; D63.1 Anemia in chronic kidney disease; E78.5 Hyperlipidemia, unspecified; I25.10 Atherosclerotic heart disease of native coronary artery without angina pectoris; M19.90 Unspecified osteoarthritis, unspecified site; J44.9 Chronic obstructive pulmonary disease, unspecified; I34.0 Nonrheumatic mitral (valve) insufficiency; Z90.49 Acquired absence of other specified parts of digestive tract; Z83.3 Family history of diabetes mellitus; Z90.710 Acquired absence of both cervix and uterus; Z88.8 Allergy status to other drugs, medicaments and biological substances; Z88.6 Allergy status to analgesic agent; Z95.5 Presence of coronary angioplasty implant and graft; Z99.2 Dependence on renal dialysis; Z71.6 Tobacco abuse counseling; Z91.15 Patient's noncompliance with renal dialysis; Z91.048 Other nonmedicinal substance allergy status
CPT/HCPCS: 36415; 71010; 78452; 80048; 80061; 80069; 80076; 81001; 82607; 82728; 82746; 82962; 83540; 83550; 83690; 83735; 83880; 84484; 85027; 85610; 85730; 86850; 86900; 86901; 86920; 92928; 93005; 93017; 93306; 93454; 96374; 96375; 96376; 99285; 99406; A9500; C1725; C1769; C1771; C1877; C1892; G0269; J0583; J1644; J1815; J2001; J2250; J2785; J3010; P9016; Q9967

== ENCOUNTER 2016-11-11 11:25 | Inpatient (IN) | payer MEDICARE, BC ==
[~2016-11-11] VITALS: Ht 162.6 cm; Wt 78.1 kg
[~2016-11-11 11:25] MED LIST changes: +CARV3.122 PO; +CLOP75TA57 PO
[2016-11-11] MEDS ORDERED: IV NORMAL SALINE 1000ML BAG 1,000 ML IV SCH ×2 (11:40→13:49)
[2016-11-11 11:50] LABS: PCO2 ABG 41 mmHg (35-46); PH ABG 7.28 (7.35-7.45)
[2016-11-11 11:51] LABS: BODY TEMP ABG 97.8 DEG; FIO2 ABG 80; HCO3 ABG 19 mmol/L (21-28); PO2 ABG 156 mmHg (65-108); SAT O2 ABG 98 % (92-99)
[2016-11-11 11:53] LABS: ALLEN TEST positive
[2016-11-11 11:57] LABS: POTASSIUM ISTAT 4.4 mmol/L (3.5-5.0)
[2016-11-11 12:05] LABS: BASO # 0.3 x10^3/uL (0.0-0.2); BASO % 1 % (0-3); EOS % 2 % (0-3); HEMATOCRIT 29.2 % (36.0-47.0); HEMOGLOBIN 9.1 g/dL (12.0-15.5); LYMPH # 4.2 x10^3/uL (1.0-4.8); LYMPH % 19 % (24-48); MEAN CORPUSCULAR HEMOGLOBIN 29 pg (25-35); MEAN CORPUSCULAR HGB CONC 31 g/dL (31-37); MEAN CORPUSCULAR VOLUME 94 fL (79-100); MONO % 6 % (0-9); NEUT % 71 % (31-73); PLATELET COUNT 284 x10^3/uL (140-400); RED BLOOD COUNT 3.11 x10^6/uL (3.50-5.40); RED CELL DISTRIBUTION WIDTH 16.7 % (11.5-14.5); WHITE BLOOD COUNT 22.1 x10^3/uL (4.0-11.0)
[2016-11-11 12:12] LABS: CALCIUM 8.2 mg/dL (8.5-10.1); CREATININE 7.1 mg/dL (0.6-1.0); GFR 5.8; POTASSIUM 4.4 mmol/L (3.5-5.1)
[2016-11-11 12:19] LABS: ALBUMIN 2.4 g/dL (3.4-5.0); ALBUMIN/GLOBULIN RATIO 0.6 (1.0-1.7); TOTAL BILIRUBIN 0.3 mg/dL (0.2-1.0); TOTAL PROTEIN 6.4 g/dL (6.4-8.2)
[2016-11-11] MEDS ORDERED: SERT50TA8 PO (12:30)
[2016-11-11] MEDS ORDERED: CINA30TA2 PO (12:30)
[2016-11-11] MEDS ORDERED: FERR210T PO (12:30)
[2016-11-11] MEDS ORDERED: VIT1TABL71 PO (12:30)
[2016-11-11] MEDS ORDERED: ATOR10TA PO (12:30)
[2016-11-11] MEDS ORDERED: CRAN1CAP11 PO (12:30)
[2016-11-11] MEDS ORDERED: ALPR0.254 PO (12:30)
[2016-11-11] MEDS ORDERED: ACET1TAB30 PO (12:30)
--- NOTE | 2016-11-11 12:30 | RAD ---
Chest x-ray Indication: Shortness of breath, denies chest pain. Technique: Portable AP upright chest film Comparison: Study from 10/21/2016 Findings: Heart is mild enlarged in size. Focal opacities seen within the left lower lung zone. Linear opacity seen within right lower lung zone. Mild prominence of pulmonary vasculature. Previously seen bilateral pleural effusions have significantly decreased in size, currently only trace left pleural effusion remains. No pneumothorax. Left axillary stent graft. Impression: 1. Bibasilar patchy opacities may represent atelectasis or pneumonia. 2. Interval decrease in the size of previously seen bilateral pleural effusions. Currently only trace left pleural effusion remains.
--- NOTE | 2016-11-11 12:34 | PDOC2 ---
PATRICE HA COPPER PLATER 11/11/16 1234: CARDIAC CONSULT DATE OF CONSULT Date of Consult DATE: 11/11/16 TIME: 12:22 REASON FOR CONSULT Reason for Consult: Abnormal EKG REFERRING PHYSICIAN Referring Physician: Kadie SOURCE Source: Chart review, Patient HISTORY OF PRESENT ILLNESS HISTORY OF PRESENT ILLNESS This is a pleasant 66 yo female admitted for SOA and is feeling a little better while on bipap. Apparently she had a mechanical fall on Thursday but no significant injury was noted. Because of that she did missed her dialysis. She is significant for peripheral vascular disease and actually had a stent placed to her LAD on 10/24/2016. Verbalized that she has been taking her BP meds and her plavix and ASA regularly. Unfortunately she continues to smoke tobacco and she has been suspected with COPD with 40 pk yr smoking. She was finally in dialysis today and 30 minutes in the process she became significantly SOA prompting stoppage of HD and admitted in ED with respiratory failure. Denies any CP, palpitations. She has not had any SOA issues till today. Upon admission her BP was noted to be high. PAST MEDICAL HISTORY Past Medical History Cardiovascular: HTN, Valve insufficiency, CAD, Other (Carotid artery disease) Pulmonary: No pertinent hx CENTRAL NERVOUS SYSTEM: Other (No pertinent history) GI: No pertinent hx Heme/Onc: Anemia NOS Hepatobiliary: No pertinent hx Psych: Depression Musculoskeletal: low back pain, Osteoarthritis, Other (cervical radiculopathy) Rheumatologic: No pertinent hx Infectious disease: No pertinent hx ENT: Allergic Rhinitis Renal/: Chronic renal failure (ESRD) Endocrine: Diabetes (2) Dermatology: No pertinent hx PAST SURGICAL HISTORY Past Surgical History Arthroscopy (right RTC repair), Cholecystectomy, Tonsillectomy, Hysterectomy, Other (anterior cervical fusion; lumbar decompression; LAV dialysis fistula 2015; 06/2016 left subclavian artery GAS LEAK INSPECTOR/stent), PCI/BMS/LAD FAMILY HISTORY Family History: Diabetes SOCIAL HISTORY Social History Smoke: 1 pack per day (>40 pk yr) ALCOHOL: none Drugs: None Lives: with Family CURRENT MEDICATIONS CURRENT MEDICATIONS Current Medications Medications (Trade) Dose Ordered Sig/Liza Route PRN Reason Start Time Stop Time Status Last Admin Dose Admin Sodium Chloride 1,000 ml @ 100 mls/hr Q10H IV 11/11/16 11:40 11/11/16 21:39 11/11/16 12:04 ALLERGIES ALLERGIES: Coded Allergies: ciprofloxacin (Verified Allergy, Intermediate, Rash, 01/25/15) morphine (Verified Adverse Reaction, Severe, makes her skin crawl, 01/25/15 ) oxycodone (Verified Adverse Reaction, Severe, makes her skin crawl, ) adhesive (Verified Adverse Reaction, Intermediate, blisters, 01/25/15) "use paper tape" PHYSICAL EXAM General: Alert, Oriented X3, Cooperative, mild distress HEENT: Atraumatic, Mucous membr. moist/pink Lungs: Other (basilar crackles) Heart: Regular rate (SR), Other (4/6 systolic murmur to apex) Extremities: No cyanosis, Other (1+ bilateral LE pitting edema) Skin: No breakdown, No significant lesion Neuro: Normal speech, Sensation intact Psych/Mental Status: Mental status NL, Mood NL MUSCULOSKELETAL: Osteoarthritic changes both hands VITALS VITALS Vital Signs Date Time Temp Pulse Resp B/P (MAP) Pulse Ox O2 Delivery O2 Flow Rate FiO2 11/11/16 12:05 79 20 158/69 (98) 100 BiPAP/CPAP 11/11/16 11:33 97.6 97.6 LABS Lab: Laboratory Tests Test 11/11/16 11:28 11/11/16 11:40 11/11/16 11:45 11/11/16 11:48 White Blood Count 22.1 x10^3/uL (4.0-11.0) Red Blood Count 3.11 x10^6/uL (3.50-5.40) Hemoglobin 9.1 g/dL (12.0-15.5) Hematocrit 29.2 % (36.0-47.0) Mean Corpuscular Volume 94 fL (79-100) Mean Corpuscular Hemoglobin 29 pg (25-35) Mean Corpuscular Hemoglobin Concent 31 g/dL (31-37) Red Cell Distribution Width 16.7 % (11.5-14.5) Platelet Count 284 x10^3/uL (140-400) Neutrophils (%) (Auto) 71 % (31-73) Lymphocytes (%) (Auto) 19 % (24-48) Monocytes (%) (Auto) 6 % (0-9) Eosinophils (%) (Auto) 2 % (0-3) Basophils (%) (Auto) 1 % (0-3) Neutrophils # (Auto) 15.7 x10^3uL (1.8-7.7) Lymphocytes # (Auto) 4.2 x10^3/uL (1.0-4.8) Monocytes # (Auto) 1.4 x10^3/uL (0.0-1.1) Eosinophils # (Auto) 0.5 x10^3/uL (0.0-0.7) Basophils # (Auto) 0.3 x10^3/uL (0.0-0.2) Sodium Level 136 mmol/L (136-145) Potassium Level 4.4 mmol/L (3.5-5.1) Chloride Level 102 mmol/L (98-107) Carbon Dioxide Level 25 mmol/L (21-32) Anion Gap 9 (6-14) 15 mmol/L (6-14) Blood Urea Nitrogen 56 mg/dL (7-20) Creatinine 7.1 mg/dL (0.6-1.0) Estimated GFR (Cockcroft-Gault) 5.8 BUN/Creatinine Ratio 8 (6-20) Glucose Level 228 mg/dL (70-99) 217 mg/dL (70-99) Calcium Level 8.2 mg/dL (8.5-10.1) Total Bilirubin 0.3 mg/dL (0.2-1.0) Aspartate Amino Transf (AST/SGOT) 14 U/L (15-37) Alanine Aminotransferase (ALT/SGPT) 15 U/L (14-59) Alkaline Phosphatase 165 U/L (46-116) Troponin I Quantitative 0.077 ng/mL (0.000-0.055) Total Protein 6.4 g/dL (6.4-8.2) Albumin 2.4 g/dL (3.4-5.0) Albumin/Globulin Ratio 0.6 (1.0-1.7) O2 Saturation 98 % (92-99) Arterial Blood pH 7.28 (7.35-7.45) Arterial Blood pCO2 at Patient Temp 41 mmHg (35-46) Arterial Blood pO2 at Patient Temp 156 mmHg (65-108) Arterial Blood HCO3 19 mmol/L (21-28) Arterial Blood Base Excess -7 mmol/L (-3-3) FiO2 80 Bedside Troponin I 0.11 ng/ml (<0.08) Bedside Hemoglobin 9.2 g/dL (12-15) Bedside Hematocrit 27 % (36-40) Bedside Sodium 136 mmol/L (135-145) Bedside Potassium 4.4 mmol/L (3.5-5.0) Bedside Chloride 103 mmol/L (98-110) Bedside Total CO2 23 mmol/L (23-32) Bedside Blood Urea Nitrogen 55 mg/dL (8-26) Bedside Creatinine 7.6 mg/dL (0.5-1.4) Bedside Ionized Calcium (Jay) 1.04 mmol/L (1.13-1.32) STRESS TEST STRESS TEST Conclusion 1. Regadenoson cardioisotope stress test showed [id number] amount of inferolateral wall ischemia associated with transient ischemic dilatation. 2. Normal left ventricular systolic function with ejection fraction calculated at 53%. 3. Consider coronary angiography. DATE: 10/23/16 1112 HEART CATH HEART CATH Conclusion 1. Severe single-vessel coronary artery disease involving left anterior descending artery with moderate stenoses in other vessels 2. Successful PCI/stent placement to the left anterior descending artery Recommendations 1. Aspirin 325 mg daily for 2-4 weeks and then 81 mg daily 2. Plavix 75 mg daily for at least four weeks and preferably one year 3. Cardiovascular risk factor modification DATE: 10/24/16 1708 ASSESSMENT/PLAN ASSESSMENT/PLAN 1. Acute on chronic diastolic CHF: missed dialysis Sat. Multifactorial as noted below 2. Acute respiratory failure with likely underlying AECOPD and continued tobaccoism: no routine inhalers at home. 3. Possible pneumonia 4. Abnormal EKG: notable peaked symmetrical T wave peaking to septal leads otherwise isoenzymes are normal. doubt ACS. CP free. 5. ESRD: per nephrology 6. Accelerated HTN 7. DM2/HLP: 8. Valvular insufficiency: mod to severe MR. 9. CAD: PCI/BMS to LAD 10/24/2016 Recommendations 1. Bipap 2. Fluid off loading per HD 3. Consult pulmonary 4. Continue secondary prevention measures including DAPT with ASA and Plavix. 5. Pt sees [facility] cardiology and will need f/u with Dr. Agee when discharge. 6. Limited TTE today. 7. Notable for The diagonal branch lesion from previous [facility], Will discuss with primary spinner frame. Problems: CARRIE STINSON MD 11/12/16 1026: CARDIAC CONSULT ALLERGIES ALLERGIES: Coded Allergies: ciprofloxacin (Verified Allergy, Intermediate, Rash, 01/25/15) morphine (Verified Adverse Reaction, Severe, makes her skin crawl, 01/25/15 ) oxycodone (Verified Adverse Reaction, Severe, makes her skin crawl, ) adhesive (Verified Adverse Reaction, Intermediate, blisters, 01/25/15) "use paper tape" ASSESSMENT/PLAN ASSESSMENT/PLAN Patient seen and examined 11/12/16. Agree with GAS LEAK INSPECTOR's assessment and plan. Acute resp failure secondary to combination of acute on chronic diastolic heart failure and acute COPD exacerbation. Continue fluid removal with HD per nephrology team. CAD status appears stable clinically. Continue DAPT. Thank you for your consultation. Problems: PATRICE HA APRN Nov 11, 2016 12:34 CARRIE STINSON MD Nov 12, 2016 10:26
[2016-11-11] MEDS ORDERED: IOHEXOL 300 MG/ML 75 ML VIAL IV ONE (12:45)
--- NOTE | 2016-11-11 12:45 | EKG ---
[facility] [address] [place] [address] Test Date: 2016-11-11 Test Time: 11:29:54 Pat Name: DIANE CARLSON Department: Room: Gender: F Vp Software: : [id number] Requested By: ELLY MALONE Order Number: [id number] Reading MD: Christian Morrison Measurements Intervals [place] Rate: 98 P: 36 WI: 162 QRS: 30 QRSD: 108 T: 156 QT: 332 QTc: 426 Interpretive Statements SINUS RHYTHM IVCD ANTERIOR INFARCT - OLD Electronically Signed On 11-17-2016 14:17:10 CDT by Christian Morrison
[2016-11-11] MEDS ORDERED: CONTRAST GIVEN MC PRN (13:00)
[2016-11-11] MEDS ORDERED: fentaNYL PF VIAL 100 MCG/2 ML VIAL IV PRN (13:30)
[2016-11-11] MEDS ORDERED: MAG HYDROX/ALUMINUM HYD/SIMETH 30 ML ORAL.SUSP PO PRN (13:30)
[2016-11-11] MEDS ORDERED: PROCHLORPERAZINE 25 MG SUPP.RECT. PR PRN (13:30)
[2016-11-11] MEDS ORDERED: NICOTINE 21MG PATCH. TD PRN (13:30)
[2016-11-11] MEDS ORDERED: ACETAMINOPHEN 325 MG TABLET. PO PRN (13:30)
[2016-11-11] MEDS ORDERED: PROCHLORPERAZINE 10 MG/2 ML VIAL. IV PRN (13:30)
[2016-11-11] MEDS ORDERED: HYDROcodone/APAP 5/325MG 1 TAB TABLET PO PRN (13:30)
[2016-11-11] MEDS ORDERED: guaiFENesin DM 200MG/20MG 10 ML SYRUP PO PRN (13:30)
--- NOTE | 2016-11-11 13:37 | PDOC1 ---
History and Physical Date of Admission Date of Admission DATE: 11/11/16 TIME: 13:24 Identification/Chief Complaint Chief Complaint soa, weak Problems: Source Source: Caregiver, Chart review, Patient History of Present Illness History of Present Illness 66 y.o female who has a lot of co morbods, ESRD on HD TTHSAT, CHF, cardiomyiopathy? CAD, AOCD, Rtype 2 DM, cont to smoke, a readmissionafter sepnding 5 days here recently this month for the ff dx: Date of Admission: Oct 21, 2016 Date of Discharge: Oct 25, 2016 Admitting Diagnosis: angina in CAD Final Diagnosis unstable angina, concern for new CAD dyspnea, acute diastolic CHF exacerbation due to missed HD normocytic anemia, esrd anemia of CKD chest tightness, pain elevated troponin with chf, esrd ESRD on hd t,,s hyperkalemia mild malnutrition, has worsened since admit, dm2, not on meds hld Hx of recent [employer]/stent to lef subclavian artery tobaccoism, COmes in bec of SOA, gen weakness and essentially FTT sxs. LAbs show creat 7 but normal K and bicarb, admits to missing HD thursday bec of diarrhea. Looking at last admit, no diarrhea mentioned, Weak, on BIPAP, ABG pH 7.21, Co2 40s, feels much better on bipap, first time ever been on bipap. VS ok, but admitted to ICU with renal, cards and pulmo. Cont to smoke, is ok with SNU - might need some encouraging on pt's part., She lives at home with , walker at times,. CXR no fluid overload, no PNA, WBC 22 (recent steroids? for admission for COPD). EKG unchanged from last one, CXR actually better than last one in the last admit Official read": Impression: 1. Bibasilar patchy opacities may represent atelectasis or pneumonia. 2. Interval decrease in the size of previously seen bilateral pleural effusions. Currently only trace left pleural effusion remains. Mention of some hypoxia on arrival,. did discuss with ER if need to rule out PE given over all clinical picture Past Medical History Cardiovascular: HTN, Valve insufficiency, Other Pulmonary: No pertinent hx CENTRAL NERVOUS SYSTEM: Other GI: No pertinent hx Heme/Onc: Anemia NOS Hepatobiliary: No pertinent hx Psych: Depression Musculoskeletal: low back pain, Osteoarthritis, Other Rheumatologic: No pertinent hx Infectious disease: No pertinent hx Renal/: Chronic renal failure Endocrine: Diabetes Past Surgical History Past Surgical History: Arthroscopy, Cholecystectomy, Tonsillectomy, Hysterectomy, Other Family History Family History: Diabetes Social History Smoke: 1 pack per day ALCOHOL: none Drugs: None Current Medications Current Medications Current Medications Sodium Chloride 1,000 ml @ 100 mls/hr Q10H IV Last administered on 11/11/16t 12:04; Start 11/11/16 at 11:40; Stop 11/11/16 at 21:39 Iohexol (Omnipaque 300 Mg/ml) 75 ml 1X ONCE IV ; Start 11/11/16 at 12:45; Stop 11/11/16 at 12:46; Status DC Info (Do NOT chart on this entry -- for MONITORING) 1 each PRN DAILY PRN MC SEE COMMENTS; Start 11/11/16 at 13:00; Stop 11/13/16 at 12:59 Active Scripts Active Lisinopril 40 Mg Tablet 40 Mg PO QTUTHSASU Carvedilol 3.125 Mg Tablet 3.125 Mg PO BIDWMEALS Reported Sertraline Hcl 50 Mg Tablet 50 Mg PO QHS Sensipar (Cinacalcet Hcl) 30 Mg Tablet 1 Tab PO QHS Alayna-Oneil Rx Tablet (Vit B Cmplx 3/Fa/Vit C/Biotin) 1 Each Tablet 1 Each PO DAILY Cranberry Plus Vitamin C Sftgl (Cranberry Conc/Ascorbic Acid) 1 Each Capsule 1 Each PO DAILY Lipitor (Atorvastatin Calcium) 10 Mg Tablet 1 Tab PO DAILY Coricidin Hbp Tablet (Acetaminophen/Chlorpheniramine) 1 Each Tablet 1 Each PO PRN Ferric Citrate 210 Mg Tablet 210 Mg PO TIDWMEALS Alprazolam 0.25 Mg Tablet 1 Tab PO DAILY PRN Plavix (Clopidogrel Bisulfate) 75 Mg Tablet 75 Mg PO DAILY Calcium Acetate 667 Mg Tablet 2 Tab PO TIDWMEALS last dose was this am next dose is wiith supper Tylenol Extra Strength (Acetaminophen) 500 Mg Tablet 500 Mg PO PRN Q12HRS PRN not given in hospital may resume when needed Metolazone 2.5 Mg Tablet 2.5 Mg PO 3X/WEEK Furosemide 40 Mg Tablet 60 Mg PO PRN PRN not given in hospital may take as instructed by provider Potassium Chloride 20 Meq Tab.er.prt 20 Meq PO WEEKLY PRN was not given in hospital Gabapentin 300 Mg Capsule 300 Mg PO DAILY Crestor (Rosuvastatin Calcium) 5 Mg Tablet 5 Mg PO HS was not given in the hospital as requested will resume at home Lantus (Insulin Glargine,Hum.rec.anlog) 100 Unit/1 Ml Vial 50 Unit SQ HS refused to take last night stated she would take her own at home Benadryl Allergy (Diphenhydramine Hcl) 25 Mg Tablet 25 Mg PO PRN not given in the hospital Aspir 81 (Aspirin) 81 Mg Tablet.dr 81 Mg PO DAILY last dose was this am resume in am Allergies Allergies: Coded Allergies: ciprofloxacin (Verified Allergy, Intermediate, Rash, 01/25/15) morphine (Verified Adverse Reaction, Severe, makes her skin crawl, 01/25/15 ) oxycodone (Verified Adverse Reaction, Severe, makes her skin crawl, ) adhesive (Verified Adverse Reaction, Intermediate, blisters, 01/25/15) "use paper tape" ROS Review of System weak, soa, - essentially too weak to get full ROS Physical Exam General: Alert, Oriented X3, Cooperative, No acute distress HEENT: Atraumatic, PERRLA Lungs: Normal air movement, Other (dec BS, no wheezes, transmitted BS from BIPAP) Heart: S1S2, RRR, no thrills, no rubs, no gallops, no murmurs Cardiovascular: S1, S2 Breasts: Normal, Rt breast nml w/o mass, Lt breast nml w/o mass, Nipples normal Abdomen: Normal bowel sounds, Soft, No tenderness, No hepatosplenomegaly, No masses Rectal Exam: not examined PELVIC: Nml ext genitalia Extremities: No clubbing, No cyanosis, No edema, Normal pulses, No tenderness/ swelling Skin: No rashes, No breakdown, No significant lesion Neuro: Normal gait, Normal speech, Strength at 5/5 X4 ext, Normal tone, Sensation intact, Cranial nerves 3-12 NL, Reflexes 2+ Psych/Mental Status: Mental status NL, Mood NL Vitals Vitals Vital Signs Date Time Temp Pulse Resp B/P (MAP) Pulse Ox O2 Delivery O2 Flow Rate FiO2 11/11/16 12:05 79 20 158/69 (98) 100 BiPAP/CPAP 11/11/16 11:33 97.6 97.6 Labs Labs Laboratory Tests Test 11/11/16 11:28 11/11/16 11:40 11/11/16 11:45 11/11/16 11:48 White Blood Count 22.1 x10^3/uL (4.0-11.0) Red Blood Count 3.11 x10^6/uL (3.50-5.40) Hemoglobin 9.1 g/dL (12.0-15.5) Hematocrit 29.2 % (36.0-47.0) Mean Corpuscular Volume 94 fL (79-100) Mean Corpuscular Hemoglobin 29 pg (25-35) Mean Corpuscular Hemoglobin Concent 31 g/dL (31-37) Red Cell Distribution Width 16.7 % (11.5-14.5) Platelet Count 284 x10^3/uL (140-400) Neutrophils (%) (Auto) 71 % (31-73) Lymphocytes (%) (Auto) 19 % (24-48) Monocytes (%) (Auto) 6 % (0-9) Eosinophils (%) (Auto) 2 % (0-3) Basophils (%) (Auto) 1 % (0-3) Neutrophils # (Auto) 15.7 x10^3uL (1.8-7.7) Lymphocytes # (Auto) 4.2 x10^3/uL (1.0-4.8) Monocytes # (Auto) 1.4 x10^3/uL (0.0-1.1) Eosinophils # (Auto) 0.5 x10^3/uL (0.0-0.7) Basophils # (Auto) 0.3 x10^3/uL (0.0-0.2) Sodium Level 136 mmol/L (136-145) Potassium Level 4.4 mmol/L (3.5-5.1) Chloride Level 102 mmol/L (98-107) Carbon Dioxide Level 25 mmol/L (21-32) Anion Gap 9 (6-14) 15 mmol/L (6-14) Blood Urea Nitrogen 56 mg/dL (7-20) Creatinine 7.1 mg/dL (0.6-1.0) Estimated GFR (Cockcroft-Gault) 5.8 BUN/Creatinine Ratio 8 (6-20) Glucose Level 228 mg/dL (70-99) 217 mg/dL (70-99) Lactic Acid Level 2.2 mmol/L (0.4-2.0) Calcium Level 8.2 mg/dL (8.5-10.1) Total Bilirubin 0.3 mg/dL (0.2-1.0) Aspartate Amino Transf (AST/SGOT) 14 U/L (15-37) Alanine Aminotransferase (ALT/SGPT) 15 U/L (14-59) Alkaline Phosphatase 165 U/L (46-116) Troponin I Quantitative 0.077 ng/mL (0.000-0.055) HE-Fej-W-Type Natriuretic Peptide > 46244 pg/mL (0-124) Total Protein 6.4 g/dL (6.4-8.2) Albumin 2.4 g/dL (3.4-5.0) Albumin/Globulin Ratio 0.6 (1.0-1.7) O2 Saturation 98 % (92-99) Arterial Blood pH 7.28 (7.35-7.45) Arterial Blood pCO2 at Patient Temp 41 mmHg (35-46) Arterial Blood pO2 at Patient Temp 156 mmHg (65-108) Arterial Blood HCO3 19 mmol/L (21-28) Arterial Blood Base Excess -7 mmol/L (-3-3) FiO2 80 Bedside Troponin I 0.11 ng/ml (<0.08) Bedside Hemoglobin 9.2 g/dL (12-15) Bedside Hematocrit 27 % (36-40) Bedside Sodium 136 mmol/L (135-145) Bedside Potassium 4.4 mmol/L (3.5-5.0) Bedside Chloride 103 mmol/L (98-110) Bedside Total CO2 23 mmol/L (23-32) Bedside Blood Urea Nitrogen 55 mg/dL (8-26) Bedside Creatinine 7.6 mg/dL (0.5-1.4) Bedside Ionized Calcium (Jay) 1.04 mmol/L (1.13-1.32) Laboratory Tests Test 11/11/16 11:28 11/11/16 11:40 11/11/16 11:45 11/11/16 11:48 White Blood Count 22.1 x10^3/uL (4.0-11.0) Red Blood Count 3.11 x10^6/uL (3.50-5.40) Hemoglobin 9.1 g/dL (12.0-15.5) Hematocrit 29.2 % (36.0-47.0) Mean Corpuscular Volume 94 fL (79-100) Mean Corpuscular Hemoglobin 29 pg (25-35) Mean Corpuscular Hemoglobin Concent 31 g/dL (31-37) Red Cell Distribution Width 16.7 % (11.5-14.5) Platelet Count 284 x10^3/uL (140-400) Neutrophils (%) (Auto) 71 % (31-73) Lymphocytes (%) (Auto) 19 % (24-48) Monocytes (%) (Auto) 6 % (0-9) Eosinophils (%) (Auto) 2 % (0-3) Basophils (%) (Auto) 1 % (0-3) Neutrophils # (Auto) 15.7 x10^3uL (1.8-7.7) Lymphocytes # (Auto) 4.2 x10^3/uL (1.0-4.8) Monocytes # (Auto) 1.4 x10^3/uL (0.0-1.1) Eosinophils # (Auto) 0.5 x10^3/uL (0.0-0.7) Basophils # (Auto) 0.3 x10^3/uL (0.0-0.2) Sodium Level 136 mmol/L (136-145) Potassium Level 4.4 mmol/L (3.5-5.1) Chloride Level 102 mmol/L (98-107) Carbon Dioxide Level 25 mmol/L (21-32) Anion Gap 9 (6-14) 15 mmol/L (6-14) Blood Urea Nitrogen 56 mg/dL (7-20) Creatinine 7.1 mg/dL (0.6-1.0) Estimated GFR (Cockcroft-Gault) 5.8 BUN/Creatinine Ratio 8 (6-20) Glucose Level 228 mg/dL (70-99) 217 mg/dL (70-99) Lactic Acid Level 2.2 mmol/L (0.4-2.0) Calcium Level 8.2 mg/dL (8.5-10.1) Total Bilirubin 0.3 mg/dL (0.2-1.0) Aspartate Amino Transf (AST/SGOT) 14 U/L (15-37) Alanine Aminotransferase (ALT/SGPT) 15 U/L (14-59) Alkaline Phosphatase 165 U/L (46-116) Troponin I Quantitative 0.077 ng/mL (0.000-0.055) TF-Oce-A-Type Natriuretic Peptide > 55274 pg/mL (0-124) Total Protein 6.4 g/dL (6.4-8.2) Albumin 2.4 g/dL (3.4-5.0) Albumin/Globulin Ratio 0.6 (1.0-1.7) O2 Saturation 98 % (92-99) Arterial Blood pH 7.28 (7.35-7.45) Arterial Blood pCO2 at Patient Temp 41 mmHg (35-46) Arterial Blood pO2 at Patient Temp 156 mmHg (65-108) Arterial Blood HCO3 19 mmol/L (21-28) Arterial Blood Base Excess -7 mmol/L (-3-3) FiO2 80 Bedside Troponin I 0.11 ng/ml (<0.08) Bedside Hemoglobin 9.2 g/dL (12-15) Bedside Hematocrit 27 % (36-40) Bedside Sodium 136 mmol/L (135-145) Bedside Potassium 4.4 mmol/L (3.5-5.0) Bedside Chloride 103 mmol/L (98-110) Bedside Total CO2 23 mmol/L (23-32) Bedside Blood Urea Nitrogen 55 mg/dL (8-26) Bedside Creatinine 7.6 mg/dL (0.5-1.4) Bedside Ionized Calcium (Jay) 1.04 mmol/L (1.13-1.32) VTE Prophylaxis Ordered VTE Prophylaxis Devices: Yes VTE Pharmacological Prophylaxi: Yes Assessment/Plan Assessment/Plan A/P dyspnea, acute diastolic CHF exacerbation due to missed HD normocytic anemia, esrd anemia of CKD chest tightness, pain elevated troponin with chf, esrd ESRD on hd t,th,s hyperkalemia mild malnutrition, has worsened since admit, dm2, not on meds hld Hx of recent [employer]/stent to lef subclavian artery tobaccoism, PLAN: Admit 2 mN Resume home emds Duonebs Cough med SSI high dose ABG evelyn BIPAP prn Consults renal, cards and pulmo Supprtoive care\\ SW for SNU screen - might be agreeable this time, profoundly weak Seen at ER 1 Dw MICHELLE Fine MD Nov 11, 2016 13:37
[2016-11-11] MEDS ORDERED: POTASSIUM CHLORIDE 20 MEQ TABLET.ER. PO PRN (13:45)
[2016-11-11] MEDS ORDERED: ALPRAZolam 0.25 MG TABLET PO PRN (13:45)
[2016-11-11] MEDS ORDERED: ACETAMINOPHEN 500 MG TABLET PO PRN (13:45)
[2016-11-11] MEDS ORDERED: IPRATRPIUM/ALBUTEROL 0.5/2.5MG 3 ML NEBU. NEB ONE (14:00)
[2016-11-11 14:05] LABS: PLT ESTIMATE ADEQUATE (ADEQUATE); POLYCHROMASIA SLIGHT; TOXIC GRANULATION SLIGHT
[2016-11-11 14:13] LABS: CKMB MASS 1.1 ng/mL (0.0-3.6)
--- NOTE | 2016-11-11 14:23 | RAD ---
Exam performed: CT pulmonary radiograph. History: Hypoxia today. Date of service: 11/11/16. Comparison: One view chest from earlier today. Technique: Contiguous helical acquisitions are obtained through the chest during intravenous administration of 75 cc of Omnipaque 300. Sagittal and coronal MIP images are obtained and reviewed. Findings: There is adequate opacification of pulmonary arteries. No filling defects to suggest pulmonary embolism is seen. The remainder intrathoracic great vessels are normal in course and caliber, diffuse atheromatous aortic and coronary calcification seen. The heart size is within limits of normal without pericardial effusion. No dominant mediastinal or hilar adenopathy seen. The central airways patent without endoluminal lesions. Interrogation of lungs demonstrates linear bibasal opacities and small bilateral pleural effusions. Limited evaluation of the upper abdominal structures is unremarkable. Impression: 1. No convincing evidence of pulmonary embolism seen. 2. Linear bibasal opacities likely infiltrates or atelectasis with small bilateral pleural effusions. PQRS Compliance Statement: One or more of the following individualized dose reduction techniques were utilized for this examination: 1. Automated exposure control 2. Adjustment of the mA and/or kV according to patient size 3. Use of iterative reconstruction technique
[2016-11-11] MEDS ORDERED: VANCOMYCIN 1.5 GM in IV NORMAL SALINE 500ML BAG 500 ML IV ONE (14:30)
[2016-11-11] MEDS ORDERED: methylPREDNISolone SOD SUCC PF 125 MG/2 ML VIAL. IV ONE (14:30)
[2016-11-11] MEDS ORDERED: VANCOMYCIN 2 GM in IV NORMAL SALINE 500ML BAG 500 ML IV ONE (14:30)
--- NOTE | 2016-11-11 14:33 | CARD ---
APPROVED REPORT EXAM: LIMITED Two-dimensional echocardiogram. Other Information Quality : Average Rhythm : NSR INDICATION LV Function:Systolic 2D DIMENSIONS Left Atrium(2D)4.0 (1.6-4.0cm)IVSd1.4 (0.7-1.1cm) Aortic Root(2D)2.5 (2.0-3.7cm)LVDd5.1 (3.9-5.9cm) LVOT Diameter2.0 (1.8-2.4cm)PWd1.4 (0.7-1.1cm) LVDs4.1 (2.5-4.0cm)FS (%) 19.7 % SV49.7 mlLVEF(%)40.2 (>50%) LEFT VENTRICLE The left ventricle is normal size. There is normal left ventricular wall thickness. Left ventricle sy stolic function is low normal The Ejection Fraction is 50%. RIGHT VENTRICLE The right ventricle is normal size. The right ventricular systolic function is normal. ATRIA The left atrium size is normal. The right atrium size is normal. GREAT VESSELS The aortic root is normal in size. PERICARDIAL EFFUSION There is no evidence of significant pericardial effusion. Critical Notification Date: 11/11/2016 Time: 13:36 Other Discipline : Giovani iVck APRN Critical Value: Yes <Conclusion> Limited echo to assess LV function. Color flow and doppler not performed. Left ventricle systolic function is low normal The Ejection Fraction is 50%. There is no evidence of significant pericardial effusion.
[2016-11-11] MEDS ORDERED: CEFEPIME HCL 1 GM in IV NORMAL SALINE 50ML 50 ML IV ONE (14:45)
--- NOTE | 2016-11-11 14:45 | ACF ---
Admit Criteria Forms Admit Criteria Forms Admit Criteria Forms RESPIRATORY FAILURE GRG ( Place 'X' for any and all applicable criteria): Hospital admission is needed for appropriate care of the patient because of acute respiratory failure or insufficiency as indicated by 1 or more of the following (1)(2)(3)(4)(5)(6)(7)(8 ): [ X]I. Mechanical ventilation needed (acute invasive or noninvasive) [ ]II. Severe ventilation deficit as indicated by 1 or more of the following ( 9) [ ]a) Uncompensated Respiratory acidosis (pH < 7.35 and PaCO2 > 40 mmHg (5.3 kPa)) [ ]b) Airflow measurements < 25% of predicted (eg, PEFR < 100 L/min) [ ]c) FVC < 15 mL/kg of ideal body weight, or 50% decrease in vital capacity from baseline [ ]III. Noncardiac pulmonary edema not resolving with rapid emergency treatment (8) [ ]IV. Severe respiratory distress as indicated by 1 or more of the following: [ ]a) Severe tachypnea (respiratory rate greater than 30, greater than 45 for 6-month-old, greater than 60 for ) [ ]b) Severe hypoxemia (partial pressure of oxygen less than 50 mm Hg ( 6.7 kPa) on greater than 50% oxygen or partial pressure of oxygen to FIO2 ratio less than 200) [ ]c) Mental status deterioration from respiratory disease [ ]V. Airway obstruction or inadequate protection [A](10)(11) The original [employer] content created by [employer] has been revised. The portions of the content which have been revised are identified through the use of italic text, and [employer] has neither reviewed nor approved the modified material. All other unmodified content is copyright [employer]. Please see references footnoted in the original [employer] edition 2014 WALKER MOTLEY Nov 11, 2016 14:45
[2016-11-11 15:45] VITALS: BP 119/63
[2016-11-11 16:00] VITALS: BP 122/52
--- NOTE | 2016-11-11 16:27 | PHYS DOC ---
Past Medical History Past Medical History: Anemia, Diabetes-Type II, Hypertension, Renal Failure Past Surgical History: Cholecystectomy, Hysterectomy, Tonsillectomy, Other Additional Past Surgical Histo: cardiac cath 10/2016-w/stent placement, back surgery,rotator cuff Additional Information: 1 ppd Alcohol Use: None Drug Use: None Adult General Chief Complaint Chief Complaint: DYSPNEA/RESPIRATOY DISTRESS HPI HPI 66-year-old female with a history of tobacco abuse with COPD, type 2 diabetes, end-stage renal disease on hemodialysis with which she is variably compliant, hemodialysis Thursday and patient skipped this past Thursday, now sent to the emergency department for evaluation of increased shortness of breath and hypoxia which evolved at dialysis. They were unable to do her treatment and she was referred to the emergency department via ambulance for evaluation. Dr. Blancas is patient's terminologist. She had a stent placed in her LAD approximately a month ago by . Patient denies recent fevers or productive cough. Prior to the gradual onset of shortness of breath at dialysis she describes no prodromal illness. Patient denies chest pain. No pleuritic pain. Ears chills sweats or shaking chills Review of Systems Review of Systems Constitutional: Denies fever or chills [] Eyes: Denies change in visual acuity, redness, or eye pain [] HENT: Denies nasal congestion or sore throat [] Respiratory: Denies cough or shortness of breath [] Cardiovascular: No additional information not addressed in HPI [] GI: Denies abdominal pain, nausea, vomiting, bloody stools or diarrhea [] : Denies dysuria or hematuria [] Musculoskeletal: Denies back pain or joint pain [] Integument: Denies rash or skin lesions [] Neurologic: Denies headache, focal weakness or sensory changes [] Endocrine: Denies polyuria or polydipsia [] Current Medications Current Medications Current Medications Medications (Trade) Dose Ordered Sig/Liza Start Time Stop Time Status Last Admin Dose Admin Acetaminophen (Tylenol) 500 mg PRN Q12HRS PRN 11/11/16 13:45 Acetaminophen/ Hydrocodone Bitart (Lortab 5/325) 1 tab PRN Q4HRS PRN 11/11/16 13:30 Al Hydroxide/Mg Hydroxide (Mylanta Plus Xs) 30 ml PRN Q3HRS PRN 11/11/16 13:30 Albuterol/ Ipratropium (Duoneb) 3 ml 1X ONCE 11/11/16 14:00 11/11/16 14:31 DC 11/11/16 14:56 3 ML Alprazolam (Xanax) 0.25 mg DAILY PRN 11/11/16 13:45 Calcium Carbonate/ Glycine (Tums) 500 mg PRN Q3HRS PRN 11/11/16 13:30 Dextrose (Dextrose 50%-Water Syringe) 12.5 gm PRN Q15MIN PRN 11/11/16 13:45 Fentanyl Citrate (Fentanyl 2ml Vial) 50 mcg PRN Q2HR PRN 11/11/16 13:30 Furosemide (Lasix) 60 mg DAILY PRN 11/11/16 13:45 Guaifenesin (Robitussin Dm) 10 ml PRN Q6HRS PRN 11/11/16 13:30 Info (Do NOT chart on this entry -- for MONITORING) 1 each PRN DAILY PRN 11/11/16 13:00 11/13/16 12:59 Iohexol (Omnipaque 300 Mg/ml) 75 ml 1X ONCE 11/11/16 12:45 11/11/16 12:46 DC 11/11/16 12:45 75 ML Nicotine (Nicoderm Cq 21mg) 1 patch PRN DAILY PRN 11/11/16 13:30 Ondansetron HCl (Zofran) 4 mg PRN Q6HRS PRN 11/11/16 13:30 Potassium Chloride (Klor-Con) 20 meq WEEKLY PRN 11/11/16 13:45 Prochlorperazine (Compazine) 25 mg PRN Q12HR PRN 11/11/16 13:30 Prochlorperazine Edisylate (Compazine) 10 mg PRN Q6HRS PRN 11/11/16 13:30 Sodium Chloride 1,000 ml @ 100 mls/hr Q10H 11/11/16 13:49 11/11/16 23:48 Allergies Allergies Allergies Coded Allergies Type Severity Reaction Last Updated Verified ciprofloxacin Allergy Intermediate Rash 01/25/15 Yes morphine Adverse Reaction Severe makes her skin crawl 01/25/15 Yes oxycodone Adverse Reaction Severe makes her skin crawl 11/5/15 Yes adhesive Adverse Reaction Intermediate blisters 01/25/15 Yes Physical Exam Physical Exam Constitutional: Chronically ill and generally weak appearing 66-year-old female in moderate rest for distress on arrival with BiPAP in place HENT: Normocephalic, atraumatic, bilateral external ears normal, oropharynx moist, no oral exudates, nose normal. [] Eyes: PERRLA, EOMI, conjunctiva normal, no discharge. [] Neck: Normal range of motion, no tenderness, supple, no stridor. [] Cardiovascular:Heart rate regular rhythm, no murmur [] Lungs & Thorax: Bilateral breath sounds decreased bilateral lung bases with occasional rhonchi no asymmetry Abdomen: Bowel sounds normal, soft, no tenderness, no masses, no pulsatile masses. [] Skin: Warm, dry, no erythema, no rash. [] Back: No tenderness, no CVA tenderness. [] Extremities: No tenderness, no cyanosis, no clubbing, ROM intact Neurologic: Alert and oriented X 3, normal motor function, normal sensory function, no focal deficits noted. [] Psychologic: Affect normal, judgement normal, only anxious] Current Patient Data Vital Signs Vital Signs Date Time Temp Pulse Resp B/P (MAP) Pulse Ox O2 Delivery O2 Flow Rate FiO2 11/11/16 14:10 98 Nasal Cannula 2.0 11/11/16 14:06 68 20 120/58 (78) 11/11/16 11:33 97.6 97.6 Lab Values Laboratory Tests Test 11/11/16 11:28 11/11/16 11:40 11/11/16 11:45 11/11/16 11:48 White Blood Count 22.1 x10^3/uL (4.0-11.0) H Red Blood Count 3.11 x10^6/uL (3.50-5.40) L Hemoglobin 9.1 g/dL (12.0-15.5) L Hematocrit 29.2 % (36.0-47.0) L Mean Corpuscular Volume 94 fL (79-100) Mean Corpuscular Hemoglobin 29 pg (25-35) Mean Corpuscular Hemoglobin Concent 31 g/dL (31-37) Red Cell Distribution Width 16.7 % (11.5-14.5) H Platelet Count 284 x10^3/uL (140-400) Neutrophils (%) (Auto) 71 % (31-73) Lymphocytes (%) (Auto) 19 % (24-48) L Monocytes (%) (Auto) 6 % (0-9) Eosinophils (%) (Auto) 2 % (0-3) Basophils (%) (Auto) 1 % (0-3) Neutrophils # (Auto) 15.7 x10^3uL (1.8-7.7) H Lymphocytes # (Auto) 4.2 x10^3/uL (1.0-4.8) Monocytes # (Auto) 1.4 x10^3/uL (0.0-1.1) H Eosinophils # (Auto) 0.5 x10^3/uL (0.0-0.7) Basophils # (Auto) 0.3 x10^3/uL (0.0-0.2) H Segmented Neutrophils % 66 % (35-66) Band Neutrophils % 3 % (0-9) Lymphocytes % 25 % (24-48) Monocytes % 5 % (0-10) Myelocytes % 1 % (0-0) H Toxic Granulation Slight Platelet Estimate Adequate (ADEQUATE) Polychromasia Slight Sodium Level 136 mmol/L (136-145) Potassium Level 4.4 mmol/L (3.5-5.1) Chloride Level 102 mmol/L (98-107) Carbon Dioxide Level 25 mmol/L (21-32) Anion Gap 9 (6-14) 15 mmol/L (6-14) H Blood Urea Nitrogen 56 mg/dL (7-20) H Creatinine 7.1 mg/dL (0.6-1.0) H Estimated GFR (Cockcroft-Gault) 5.8 BUN/Creatinine Ratio 8 (6-20) Glucose Level 228 mg/dL (70-99) H 217 mg/dL (70-99) H Lactic Acid Level 2.2 mmol/L (0.4-2.0) H Calcium Level 8.2 mg/dL (8.5-10.1) L Total Bilirubin 0.3 mg/dL (0.2-1.0) Aspartate Amino Transferase (AST) 14 U/L (15-37) L Alanine Aminotransferase (ALT) 15 U/L (14-59) Alkaline Phosphatase 165 U/L (46-116) H Creatine Kinase 57 U/L (26-192) Creatine Kinase MB (Mass) 1.1 ng/mL (0.0-3.6) Creatine Kinase MB Relative Index 1.9 % (0-4) Troponin I Quantitative 0.077 ng/mL (0.000-0.055) XZ-Azg-U-Type Natriuretic Peptide > 57842 pg/mL (0-124) H Total Protein 6.4 g/dL (6.4-8.2) Albumin 2.4 g/dL (3.4-5.0) L Albumin/Globulin Ratio 0.6 (1.0-1.7) L Thyroid Stimulating Hormone (TSH) 7.641 uIU/mL (0.358-3.74) H O2 Saturation 98 % (92-99) Arterial Blood pH 7.28 (7.35-7.45) L Arterial Blood pCO2 at Patient Temp 41 mmHg (35-46) Arterial Blood pO2 at Patient Temp 156 mmHg (65-108) H Arterial Blood HCO3 19 mmol/L (21-28) L Arterial Blood Base Excess -7 mmol/L (-3-3) L FiO2 80 POC Troponin I 0.11 ng/ml (<0.08) POC Hemoglobin 9.2 g/dL (12-15) L POC Hematocrit 27 % (36-40) L POC Sodium 136 mmol/L (135-145) POC Potassium 4.4 mmol/L (3.5-5.0) POC Chloride 103 mmol/L (98-110) POC Total CO2 23 mmol/L (23-32) POC Blood Urea Nitrogen 55 mg/dL (8-26) H POC Creatinine 7.6 mg/dL (0.5-1.4) H POC Ionized Calcium (Jay) 1.04 mmol/L (1.13-1.32) L Laboratory Tests 11/11/16 11:28 Laboratory Tests 11/11/16 11:28 11/11/16 11:48 EKG EKG EKG with normal sinus rhythm at 98 normal axis no STEMI. Q waves anterior nonspecific ST and T-wave findings and repolarization abnormality no sick change prior study [] Radiology/Procedures Radiology/Procedures [] Chest x-ray with chronic changes cephalization congestive changes cannot rule out early infiltrate interpreted by me report reviewed Course & Med Decision Making Course & Med Decision Making Pertinent Labs and Imaging studies reviewed. (See chart for details) Signs and symptoms consistent with suspected fluid overload in a noncompliant dialysis patient who missed her last dialysis session. BiPAP applied with clinical improvement and improved oxygen saturations. Chest x-ray cannot rule out infiltrate. Elevated white blood cell count. Blood cultures drawn and Anaprox initiated for pneumonia coverage. Case discussed with Dr. Blancas patient' s terminologist is aware of her history and will provide stat dialysis in the ICU setting. Case discussed with cardiology service regarding consultation. Patient guarded condition but clinically improving in the emergency department on BiPAP. As unable to rule out PE CT of the chest done. Negative for PE. Case discussed with the hospitalist who is aware of history and findings and agrees with inpatient admission to the ICU for further workup and treatment as needed. Critical care 75 minutes [] Dragon Disclaimer Dragon Disclaimer This electronic medical record was generated, in whole or in part, using a voice recognition dictation system. Departure Departure Impression: Primary Impression: Fluid overload Additional Impressions: Hypoxia SIRS (systemic inflammatory response syndrome) Pneumonia Disposition: 09 ADMITTED INPATIENT Condition: GUARDED Referrals: ALESIA ZAVALA NP (PCP) Problem Qualifiers ELLY MALONE MD Nov 11, 2016 16:27
[2016-11-11 17:00] VITALS: BP 109/54
[2016-11-11] MEDS: INSULIN ASPART 300 UNITS/3 ML INSULN.PEN SQ SCH (17:00)
[2016-11-11] MEDS ORDERED: NON FORMULARY ITEM (Ferric Citrate 210 MG) PO SCH (17:00)
[2016-11-11 18:00] VITALS: BP 96/53
[2016-11-11 18:23] LABS: CALCIUM 8.4 mg/dL (8.5-10.1); CREATININE 3.3 mg/dL (0.6-1.0); POTASSIUM 4.1 mmol/L (3.5-5.1)
[2016-11-11 20:00] VITALS: BP 121/49
[2016-11-11] MEDS: IPRATRPIUM/ALBUTEROL 0.5/2.5MG 3 ML NEBU. NEB SCH (20:00)
[2016-11-11] MEDS: CALCIUM ACETATE 667 MG CAPSULE PO SCH (20:32)
[2016-11-11] MEDS: ATORVASTATIN CALCIUM 10 MG TABLET. PO SCH (20:32)
[2016-11-11] MEDS: SERTRALINE 50 MG TABLET. PO SCH (20:33)
[2016-11-11] MEDS ORDERED: NON FORMULARY ITEM (Rosuvastatin Calcium (Crestor) 5 MG) PO SCH (21:00)
[2016-11-11] MEDS ORDERED: HEPARIN PF for SUB-Q USE 5,000 UNIT/0.5 ML VIAL. SQ SCH (22:00)
[2016-11-11] MEDS: INSULIN DETEMIR 300 UNITS/3 ML INSULN.PEN. SQ SCH (22:04)
[2016-11-11] MEDS: LISINOPRIL 40 MG TABLET. PO SCH (22:06)
[2016-11-11] MEDS: CINACALCET HCL 30 MG TABLET PO SCH (22:06)
[2016-11-11] MEDS: CARVEDILOL 3.125 MG TABLET. PO SCH (22:06)
[2016-11-12] VITALS (29 sets, daily range): BP systolic 82–233; BP diastolic 42–101
[2016-11-12] MEDS ORDERED: ETOMIDATE 20 MG/10 ML VIAL. IV ONE ×2 (01:03→01:15)
[2016-11-12] MEDS ORDERED: ROCURONIUM 100 MG/10 ML VIAL. IV ONE (01:15)
[2016-11-12 01:17] LABS: BASO % 1 % (0-3); EOS % 0 % (0-3); HEMATOCRIT 26.6 % (36.0-47.0); HEMOGLOBIN 8.7 g/dL (12.0-15.5); LYMPH # 1.3 x10^3/uL (1.0-4.8); LYMPH % 12 % (24-48); MEAN CORPUSCULAR HEMOGLOBIN 30 pg (25-35); MEAN CORPUSCULAR HGB CONC 33 g/dL (31-37); MEAN CORPUSCULAR VOLUME 91 fL (79-100); MONO % 2 % (0-9); NEUT % 86 % (31-73); PLATELET COUNT 184 x10^3/uL (140-400); RED BLOOD COUNT 2.91 x10^6/uL (3.50-5.40); RED CELL DISTRIBUTION WIDTH 16.1 % (11.5-14.5); WHITE BLOOD COUNT 10.6 x10^3/uL (4.0-11.0)
[2016-11-12] MEDS ORDERED: PROPOFOL 100 ML IV ONE (01:17)
[2016-11-12] MEDS ORDERED: AMIODARONE 150 MG in IV DEXTROSE 5% 100 ML IV ONE (01:30)
[2016-11-12] MEDS ORDERED: PROPOFOL 100 ML IV PRN (01:30)
[2016-11-12] MEDS ORDERED: MIDAZOLAM PREMIX 100 ML IV PRN (01:30)
[2016-11-12] MEDS ORDERED: ROCURONIUM 50 MG/5 ML VIAL. ONE (01:33)
[2016-11-12] MEDS ORDERED: AMIODARONE 900 MG in IV DEXTROSE 5% 500 ML IV PRN ×5 (01:45→10:30)
[2016-11-12] MEDS ORDERED: HEPARIN for IV BOLUS 10,000 UNIT/10 ML VIAL. IV PRN (01:45)
[2016-11-12] MEDS ORDERED: HEPARIN for IV BOLUS 10,000 UNIT/10 ML VIAL. IV ONE (02:00)
--- NOTE | 2016-11-12 02:12 | RAD ---
EXAM: PORTABLE CHEST 1V HISTORY: et placement; ng placement COMPARISON: None available TECHNIQUE: Portable upright AP view of the chest is obtained. FINDINGS: The distal tip of an ET tube is visualized approximately 3.5 cm above the penny. A nasogastric tube is visualized with the distal tip terminating over the left upper quadrant, presumed in the gastric body. Opacities present within the left lower lung in the region of the lingula. Right lung appears clear. No pleural effusion or pneumothorax is seen. Cardiomediastinal silhouette appears within normal limits of size. Visualized osseous structures and overlying soft tissues demonstrate no acute finding. Vascular stent seen in the left axillary region. IMPRESSION: 1. Distal tip of ET tube 3.5 cm above the penny. Distal tip of NG tube presumed in the gastric body. 2. Left lower lung opacity, may represent infiltrate. Electronically signed by: Yvonne Taylor MD (11/12/2016 2:09 AM) [facility]
[2016-11-12 02:19] LABS: ALBUMIN 2.1 g/dL (3.4-5.0); ALBUMIN/GLOBULIN RATIO 0.6 (1.0-1.7); CALCIUM 8.3 mg/dL (8.5-10.1); GFR 8.7; PHOSPHORUS 4.4 mg/dL (2.6-4.7); POTASSIUM 4.4 mmol/L (3.5-5.1); TOTAL BILIRUBIN 0.3 mg/dL (0.2-1.0); TOTAL PROTEIN 5.7 g/dL (6.4-8.2)
[2016-11-12] MEDS: ANTI-COAG MONITOR BY PHARMACY. MC PRN ×3 (02:33→14:13)
[2016-11-12] MEDS: HEPARIN 25,000UTS/500ML PREMIX 500 ML IV PRN (03:04)
[2016-11-12 03:30] LABS: HCO3 ABG 25 mmol/L (21-28); PCO2 ABG 30 mmHg (35-46); PO2 ABG 101 mmHg (65-108); SAT O2 ABG 98 % (92-99)
[2016-11-12 03:31] LABS: FIO2 ABG 40; PH ABG 7.53 (7.35-7.45)
[2016-11-12 05:16] LABS: BASO % 1 % (0-3); EOS % 0 % (0-3); HEMATOCRIT 21.2 % (36.0-47.0); HEMOGLOBIN 7.1 g/dL (12.0-15.5); LYMPH # 0.9 x10^3/uL (1.0-4.8); LYMPH % 10 % (24-48); MEAN CORPUSCULAR HEMOGLOBIN 30 pg (25-35); MEAN CORPUSCULAR HGB CONC 34 g/dL (31-37); MEAN CORPUSCULAR VOLUME 90 fL (79-100); MONO % 8 % (0-9); NEUT % 81 % (31-73); PLATELET COUNT 144 x10^3/uL (140-400); RED BLOOD COUNT 2.35 x10^6/uL (3.50-5.40); RED CELL DISTRIBUTION WIDTH 15.7 % (11.5-14.5); WHITE BLOOD COUNT 8.7 x10^3/uL (4.0-11.0)
[2016-11-12 05:29] LABS: INR 1.3 (0.8-1.1); PROTHROMBIN TIME PATIENT 15.6 SEC (11.7-14.0)
[2016-11-12 05:57] LABS: CALCIUM 8.4 mg/dL (8.5-10.1); GFR 8.7; POTASSIUM 4.1 mmol/L (3.5-5.1)
--- NOTE | 2016-11-12 06:41 | VNOTE ---
CALL BACK NOTE CALL BACK Responded to overhead CODE BLUE. I [place] physician [place] [facility] [place] to an overhead CODE BLUE in the ICU. Upon entering the room, the patient is alert, and coherent and tachycardic on monitor. Apparently the patient had witnessed cardiac arrest and was in V. fib V. tach and was pulseless for approximately 2 minutes. She received one round of chest compressions per ICU nursing staff. Patient was able to convert to spontaneous circulation without any medications or attempted cardioversions. Initial telemetry strip reviewed which is consistent with torsades. IV amiodarone and magnesium ordered. Patient is more alert and denies chest pain and shortness of breath preceding cardiac arrest. Patient is a dialysis patient and underwent dialysis earlier in the day. Most recent labs reviewed potassium noted to be normal. Patient does have significant history of coronary artery disease with stent placed the past 2 -3 months. Reviewing the patient's chart, the patient had the v fib with which only responded to cardioversion. Patient and was subsequently intubated for stabilization. Case reviewed with Dr. De La Torre. Recommendations are for continued amiodarone and heparinization and to see in the morning. I attempted to contact, Dr Domingo to update the patient of patient's change in status and condition. However, I was unable to get a hold of Chayo and had to return to the emergency department duties to take care of patients. CHARISSA VINCENT DO Nov 12, 2016 06:41
[2016-11-12] MEDS: INSULIN ASPART 300 UNITS/3 ML INSULN.PEN SQ SCH ×3 (08:00→16:20)
[2016-11-12] MEDS: CARVEDILOL 3.125 MG TABLET. PO SCH (08:00)
[2016-11-12] MEDS: IPRATRPIUM/ALBUTEROL 0.5/2.5MG 3 ML NEBU. NEB SCH ×4 (08:05→19:37)
[2016-11-12 08:27] LABS: HCO3 ABG 26 mmol/L (21-28); PCO2 ABG 37 mmHg (35-46); PH ABG 7.46 (7.35-7.45); PO2 ABG 71 mmHg (65-108); SAT O2 ABG 94 % (92-99)
[2016-11-12] MEDS: metOLazone 2.5 MG TABLET PO SCH (08:42)
[2016-11-12 08:57] LABS: FIO2 ABG 40
[2016-11-12] MEDS ORDERED: ASCORBIC ACID PO SCH (09:00)
[2016-11-12] MEDS ORDERED: [UNRECOGNIZED DRUG - OTHER] PO SCH (09:00)
[2016-11-12] MEDS ORDERED: CRANBERRY PO SCH (09:00)
--- NOTE | 2016-11-12 09:14 | PDOC ---
Provider Note Provider Note [id number] acute resp fail abnl cxr ae copd vtach arrest chf see orders. will do sbt if ok w cardiology. VICKEY FLOR MD Nov 12, 2016 09:14
[2016-11-12] MEDS: FOLIC/VIT B COMP W-C (RENAL) TABLET. PO SCH (09:33)
[2016-11-12] MEDS: CALCIUM ACETATE 667 MG CAPSULE PO SCH ×3 (09:34→16:20)
[2016-11-12] MEDS: FUROSEMIDE 40 MG TABLET. PO PRN (09:34)
[2016-11-12] MEDS: ASPIRIN ENTERIC COATED 81 MG TABLET.DR. PO SCH (09:34)
[2016-11-12] MEDS: GABAPENTIN 300 MG CAPSULE. PO SCH (09:34)
[2016-11-12] MEDS: CLOPIDOGREL BISULFATE 75 MG TABLET PO SCH (09:34)
[2016-11-12] MEDS: PANTOPRAZOLE 40 MG TABLET.DR. PO SCH (09:35)
--- NOTE | 2016-11-12 09:50 | PDOC ---
PATRICE [facility] [employer] 11/12/16 0950: CARDIO Progress Notes Date and Time Date of Service 11/12/2016 Time of Evaluation 0940 Subjective Subjective: Other (intubated and sedated) Vitals Vitals Vital Signs Date Time Temp Pulse Resp B/P (MAP) Pulse Ox O2 Delivery O2 Flow Rate FiO2 11/12/16 09:00 43 11 103/47 (65) 100 Ventilator 11/12/16 08:00 98.6 98.6 11/12/16 01:00 2.0 Weight Weight [ ] Input and Output Intake and Output Intake and Output 11/12/16 07:00 Intake Total 20 ml Output Total 550 ml Balance -530 ml Intake Oral 20 ml Output Urine Total 550 ml Laboratory Labs Laboratory Tests Test 11/11/16 11:28 11/11/16 11:40 11/11/16 11:45 11/11/16 11:48 White Blood Count 22.1 x10^3/uL (4.0-11.0) Red Blood Count 3.11 x10^6/uL (3.50-5.40) Hemoglobin 9.1 g/dL (12.0-15.5) Hematocrit 29.2 % (36.0-47.0) Mean Corpuscular Volume 94 fL (79-100) Mean Corpuscular Hemoglobin 29 pg (25-35) Mean Corpuscular Hemoglobin Concent 31 g/dL (31-37) Red Cell Distribution Width 16.7 % (11.5-14.5) Platelet Count 284 x10^3/uL (140-400) Neutrophils (%) (Auto) 71 % (31-73) Lymphocytes (%) (Auto) 19 % (24-48) Monocytes (%) (Auto) 6 % (0-9) Eosinophils (%) (Auto) 2 % (0-3) Basophils (%) (Auto) 1 % (0-3) Neutrophils # (Auto) 15.7 x10^3uL (1.8-7.7) Lymphocytes # (Auto) 4.2 x10^3/uL (1.0-4.8) Monocytes # (Auto) 1.4 x10^3/uL (0.0-1.1) Eosinophils # (Auto) 0.5 x10^3/uL (0.0-0.7) Basophils # (Auto) 0.3 x10^3/uL (0.0-0.2) Segmented Neutrophils % 66 % (35-66) Band Neutrophils % 3 % (0-9) Lymphocytes % 25 % (24-48) Monocytes % 5 % (0-10) Myelocytes % 1 % (0-0) Toxic Granulation Slight Platelet Estimate Adequate (ADEQUATE) Polychromasia Slight Sodium Level 136 mmol/L (136-145) Potassium Level 4.4 mmol/L (3.5-5.1) Chloride Level 102 mmol/L (98-107) Carbon Dioxide Level 25 mmol/L (21-32) Anion Gap 9 (6-14) 15 mmol/L (6-14) Blood Urea Nitrogen 56 mg/dL (7-20) Creatinine 7.1 mg/dL (0.6-1.0) Estimated GFR (Cockcroft-Gault) 5.8 BUN/Creatinine Ratio 8 (6-20) Glucose Level 228 mg/dL (70-99) 217 mg/dL (70-99) Lactic Acid Level 2.2 mmol/L (0.4-2.0) Calcium Level 8.2 mg/dL (8.5-10.1) Total Bilirubin 0.3 mg/dL (0.2-1.0) Aspartate Amino Transf (AST/SGOT) 14 U/L (15-37) Alanine Aminotransferase (ALT/SGPT) 15 U/L (14-59) Alkaline Phosphatase 165 U/L (46-116) Creatine Kinase 57 U/L (26-192) Creatine Kinase MB (Mass) 1.1 ng/mL (0.0-3.6) Creatine Kinase MB Relative Index 1.9 % (0-4) Troponin I Quantitative 0.077 ng/mL (0.000-0.055) TR-Rdw-P-Type Natriuretic Peptide > 75421 pg/mL (0-124) Total Protein 6.4 g/dL (6.4-8.2) Albumin 2.4 g/dL (3.4-5.0) Albumin/Globulin Ratio 0.6 (1.0-1.7) Thyroid Stimulating Hormone (TSH) 7.641 uIU/mL (0.358-3.74) O2 Saturation 98 % (92-99) Arterial Blood pH 7.28 (7.35-7.45) Arterial Blood pCO2 at Patient Temp 41 mmHg (35-46) Arterial Blood pO2 at Patient Temp 156 mmHg (65-108) Arterial Blood HCO3 19 mmol/L (21-28) Arterial Blood Base Excess -7 mmol/L (-3-3) FiO2 80 Bedside Troponin I 0.11 ng/ml (<0.08) Bedside Hemoglobin 9.2 g/dL (12-15) Bedside Hematocrit 27 % (36-40) Bedside Sodium 136 mmol/L (135-145) Bedside Potassium 4.4 mmol/L (3.5-5.0) Bedside Chloride 103 mmol/L (98-110) Bedside Total CO2 23 mmol/L (23-32) Bedside Blood Urea Nitrogen 55 mg/dL (8-26) Bedside Creatinine 7.6 mg/dL (0.5-1.4) Bedside Ionized Calcium (Jay) 1.04 mmol/L (1.13-1.32) Test 11/11/16 16:00 11/11/16 17:49 11/11/16 17:50 11/11/16 22:02 Nasal Screen MRSA (PCR) Negative (Negative) Glucose (Fingerstick) 147 mg/dL (70-99) 296 mg/dL (70-99) Sodium Level 137 mmol/L (136-145) Potassium Level 4.1 mmol/L (3.5-5.1) Chloride Level 99 mmol/L (98-107) Carbon Dioxide Level 29 mmol/L (21-32) Anion Gap 9 (6-14) Blood Urea Nitrogen 25 mg/dL (7-20) Creatinine 3.3 mg/dL (0.6-1.0) Estimated GFR (Cockcroft-Gault) 14.0 Glucose Level 160 mg/dL (70-99) Calcium Level 8.4 mg/dL (8.5-10.1) Test 11/12/16 00:55 11/12/16 00:59 11/12/16 03:04 11/12/16 04:50 Glucose (Fingerstick) 284 mg/dL (70-99) White Blood Count 10.6 x10^3/uL (4.0-11.0) 8.7 x10^3/uL (4.0-11.0) Red Blood Count 2.91 x10^6/uL (3.50-5.40) 2.35 x10^6/uL (3.50-5.40) Hemoglobin 8.7 g/dL (12.0-15.5) 7.1 g/dL (12.0-15.5) Hematocrit 26.6 % (36.0-47.0) 21.2 % (36.0-47.0) Mean Corpuscular Volume 91 fL (79-100) 90 fL (79-100) Mean Corpuscular Hemoglobin 30 pg (25-35) 30 pg (25-35) Mean Corpuscular Hemoglobin Concent 33 g/dL (31-37) 34 g/dL (31-37) Red Cell Distribution Width 16.1 % (11.5-14.5) 15.7 % (11.5-14.5) Platelet Count 184 x10^3/uL (140-400) 144 x10^3/uL (140-400) Neutrophils (%) (Auto) 86 % (31-73) 81 % (31-73) Lymphocytes (%) (Auto) 12 % (24-48) 10 % (24-48) Monocytes (%) (Auto) 2 % (0-9) 8 % (0-9) Eosinophils (%) (Auto) 0 % (0-3) 0 % (0-3) Basophils (%) (Auto) 1 % (0-3) 1 % (0-3) Neutrophils # (Auto) 9.1 x10^3uL (1.8-7.7) 7.1 x10^3uL (1.8-7.7) Lymphocytes # (Auto) 1.3 x10^3/uL (1.0-4.8) 0.9 x10^3/uL (1.0-4.8) Monocytes # (Auto) 0.2 x10^3/uL (0.0-1.1) 0.7 x10^3/uL (0.0-1.1) Eosinophils # (Auto) 0.0 x10^3/uL (0.0-0.7) 0.0 x10^3/uL (0.0-0.7) Basophils # (Auto) 0.0 x10^3/uL (0.0-0.2) 0.0 x10^3/uL (0.0-0.2) Sodium Level 136 mmol/L (136-145) 138 mmol/L (136-145) Potassium Level 4.4 mmol/L (3.5-5.1) 4.1 mmol/L (3.5-5.1) Chloride Level 100 mmol/L (98-107) 102 mmol/L (98-107) Carbon Dioxide Level 27 mmol/L (21-32) 28 mmol/L (21-32) Anion Gap 9 (6-14) 8 (6-14) Blood Urea Nitrogen 33 mg/dL (7-20) 36 mg/dL (7-20) Creatinine 5.0 mg/dL (0.6-1.0) 5.0 mg/dL (0.6-1.0) Estimated GFR (Cockcroft-Gault) 8.7 8.7 BUN/Creatinine Ratio 7 (6-20) Glucose Level 293 mg/dL (70-99) 223 mg/dL (70-99) Calcium Level 8.3 mg/dL (8.5-10.1) 8.4 mg/dL (8.5-10.1) Phosphorus Level 4.4 mg/dL (2.6-4.7) Magnesium Level 2.0 mg/dL (1.8-2.4) Total Bilirubin 0.3 mg/dL (0.2-1.0) Aspartate Amino Transf (AST/SGOT) 16 U/L (15-37) Alanine Aminotransferase (ALT/SGPT) 18 U/L (14-59) Alkaline Phosphatase 140 U/L (46-116) Total Protein 5.7 g/dL (6.4-8.2) Albumin 2.1 g/dL (3.4-5.0) Albumin/Globulin Ratio 0.6 (1.0-1.7) O2 Saturation 98 % (92-99) Arterial Blood pH 7.53 (7.35-7.45) Arterial Blood pCO2 at Patient Temp 30 mmHg (35-46) Arterial Blood pO2 at Patient Temp 101 mmHg (65-108) Arterial Blood HCO3 25 mmol/L (21-28) Arterial Blood Base Excess 2 mmol/L (-3-3) FiO2 40 Prothrombin Time 15.6 SEC (11.7-14.0) Prothromb Time International Ratio 1.3 (0.8-1.1) Lactic Acid Level 2.0 mmol/L (0.4-2.0) Troponin I Quantitative 0.127 ng/mL (0.000-0.055) Test 11/12/16 08:00 11/12/16 08:38 11/12/16 09:05 O2 Saturation 94 % (92-99) Arterial Blood pH 7.46 (7.35-7.45) Arterial Blood pCO2 at Patient Temp 37 mmHg (35-46) Arterial Blood pO2 at Patient Temp 71 mmHg (65-108) Arterial Blood HCO3 26 mmol/L (21-28) Arterial Blood Base Excess 2 mmol/L (-3-3) FiO2 40 Glucose (Fingerstick) 117 mg/dL (70-99) Heparin Anti-Xa Act, Unfractionated 0.24 IU/mL (0.30-0.70) Physical Exam HEENT: Neck Supple W Full Motion Chest: Symmetric LUNGS: Other (basilar crackles; intubated with mechanical ventilation) Heart: S1S2, RRR (SB with PVCs), no rubs Abdomen: Other (soft, OG in place) Extremities: Other (trace LE edema) Neurology: other (sedated) Assessment Assessment 1. S/P cardiac arrest: as an inpt. Per staff no notable symptoms prior to it but noted with cardiac arrest with pulseless Vtach. Approximate to ROSC <2 minutes, amiodarone given, then sinus tach. Pt awake afterwards and then few minutes later converted to polymorphic Vtach appearing to be torsades then cardioverted and amiodarone/Mg given. Mg, K were normal at that time. Amiodarone was then stopped later due to bradycardia. Heparin is infusing and pt is intubated with mechanical ventilator. CTA no PE 2. Sinus bradycardia: 40s with PVC. Presently with sedation 3. HTN: BP stable 4. Acute respiratory failure with likely underlying AECOPD and continued tobaccoism: Hypoxia better with bipap prior to arrest. Now intubated with vent. Per pulmonary 5. CAD: PCI/BMS to LAD 10/24/2016. No evidence of any CP. Isoenzymes were normal upon check with f/u EF of 50% with low normal LV function. 6. ESRD: HD per nephrology 7. Acute on chronic diastolic CHF: previous missed dialysis on Sat. 8. Anemia of chronic disease: No obvious bleed. Hgb 7.1, transfusion pending 9. Valvular insufficiency: mod to severe MR. 10. DM2/HLP Recommendations 1. Continue with heparin drip 2. Recheck EKG and will note QTc. If ok then will start on Amiodarone drip per protocol. 3. Presently troponin at 0.127. Repeat isoenzymes 4. Follow pulmonary recommendations 5. So far no obvious etiology for ventricular arrhythmias, Continue current regimen. Hold BB and will plan for LHC today or tomorrow 6. Will discuss with primary awning maker and installer. Continue with DAPT. 7. If LHC is unremarkable for culprit ischemia then will entertain the possibility of AICD CARRIE STINSON MD 11/12/16 1638: CARDIO Progress Notes Assessment Assessment Patient seen and examined. Agree with DOCTOR OF PHARMACY's assessment and plan. Events overnight relating to cardiac arrest/VT noted Plan for left heart cath once extubated If no ischemia causing lesions, patient will need AICD for secondary prevention PATRICE HA APRN Nov 12, 2016 09:50 CARRIE STINSON MD Nov 12, 2016 16:38
--- NOTE | 2016-11-12 09:56 | CONS ---
DATE OF CONSULTATION: 11/12/2016 I was asked to see this 66-year-old lady for acute respiratory failure. HISTORY OF PRESENT ILLNESS: The patient is currently on the ventilator and is sedated. All of the information was obtained from the chart and nursing staff. She has end-stage renal disease and is on hemodialysis. She had a fall on Thursday and missed her dialysis. She presented with shortness of breath. She was on BiPAP and she felt better. She was monitored in the ICU. Around midnight, she went to V-tach and had cardioversion and was intubated. She is currently intubated and is on the ventilator. She had a stent placed to her LAD on 10/24/2016. PAST MEDICAL HISTORY: COPD, coronary artery disease, carotid artery disease, cholecystectomy, anemia, diabetes mellitus, hypertension, and end-stage renal disease, on hemodialysis. ALLERGIES: ADHESIVE, CIPRO, MORPHINE, OXYCODONE. MEDICATIONS: Currently, she is on cefepime, multivitamin, Neurontin. Zaroxolyn, Plavix, aspirin, Versed drip, insulin, Zoloft, Lipitor, calcium, DuoNeb, lisinopril, Coreg. SOCIAL HISTORY: She continues to smoke. Details are not known. FAMILY HISTORY: Diabetes mellitus. REVIEW OF SYSTEMS: As mentioned as above. I have discussed the patient with RN. Other systems are otherwise negative. PHYSICAL EXAMINATION: GENERAL: This is an overweight lady. VITAL SIGNS: Her O2 saturation is 100%, respiratory rate 12, heart rate 46, blood pressure 104/46, temperature 98.6. HEENT: Normocephalic, atraumatic. Pupils equal, round, reactive to light. She is orally intubated. Nose is clear. NECK: There is no JVD, lymphadenopathy or thyromegaly. CARDIOVASCULAR: Regular rate and rhythm, bradycardic. PMI is nondisplaced. CHEST: Inspection is normal. LUNGS: There are bibasilar crackles, dullness at the bases. ABDOMEN: Soft. Bowel sounds are good. There is no mass. EXTREMITIES: There is no edema. LYMPHATICS: There is no lymphadenopathy. NEUROLOGIC: She is sedated. SKIN: Warm. LABORATORY DATA: I reviewed the following lab data: Chest x-ray shows ET tube is in good position. There is bibasilar infiltrates/atelectasis. ABG: pH 7.46, pCO2 of 37, pO2 of 71, on assist control rate of 12, tidal volume 500, PEEP of 5, FiO2 of 40%. Sodium 138, potassium 4.1, chloride 102, CO2 of 28, glucose 223, BUN 36, creatinine 5. Troponin 0.127. WBC 8.7, hemoglobin 7.1, platelets 144. IMPRESSION: 1. Acute hypoxemic respiratory failure, multifactorial in etiology including acute diastolic congestive heart failure, volume overload, acute exacerbation of chronic obstructive pulmonary disease, ventricular tachycardic versus others. 2. Abnormal chest x-ray. 3. Infiltrates/atelectasis. 4. Acute exacerbation of chronic obstructive pulmonary disease. 5. Acute diastolic congestive heart failure and volume overload. 6. Ventricular tachycardia, questionable etiology. 7. Coronary artery disease status post stent on 10/24/2016. 8. Tobacco habituation. 9. End-stage renal disease, on hemodialysis. 10. Diabetes mellitus. 11. Hypertension. 12. Overweight, ? obstructive sleep apnea-hypopnea syndrome. PLAN AND RECOMMENDATIONS: 1. Titrate FiO2 to keep O2 saturation 94%. 2. Bronchodilator. 3. Add inhaled corticosteroid. 4. Continue ventilatory support. Ventilator setting was reviewed. I will discuss with Cardiology. If it is okay with them, I will do spontaneous breathing trial. 5. Cardiology to address her arrhythmias. 6. Start Protonix for stress ulcer prophylaxis. 7. SCDs for DVT prophylaxis. She has anemia, hold on Lovenox for now. 8. Elevate head of bed. 9. Monitor respiratory status very closely. 10. Hemodialysis per Nephrology. 11. The findings and recommendations were discussed with RN and RT. 12. Sleep study as an outpatient. Thank you very much for allowing me to participate in care of this very nice lady. VICKEY FLOR M.D. : KASSIDY/williams JOB#: [id number] / [id number] PAUL
--- NOTE | 2016-11-12 09:58 | PDOC ---
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 tobaccoism, History of Present Illness History of Present Illness Code blue last night, 3 short runs, never lost consciousness., NOw intubated Labs actually better than on admit Sedated on versed gtt HEparin gtt running per cards PUlmo and cards consulted from the get-go HGb 7,1 - on heparin gtt PLAN: Transfuse 1 pRBC Heparin gtt per cards Follow cards and pulmo recs VEnt bundle SCDs MOnitor the anemia CC 30 Vitals Vitals Vital Signs Date Time Temp Pulse Resp B/P (MAP) Pulse Ox O2 Delivery O2 Flow Rate FiO2 11/12/16 09:00 43 11 103/47 (65) 100 Ventilator 11/12/16 08:00 98.6 98.6 11/12/16 01:00 2.0 Physical Exam General: Alert, Oriented X3, Cooperative, mild distress Heart: Regular rate (SR), Other (4/6 systolic murmur to apex) Lungs: Clear Abdomen: Normal bowel sounds, Soft, No tenderness, No hepatosplenomegaly, No masses Extremities: No cyanosis, Other (1+ bilateral LE pitting edema) Skin: No breakdown, No significant lesion Labs LABS Laboratory Tests Test 11/11/16 11:28 11/11/16 11:40 11/11/16 11:45 11/11/16 11:48 White Blood Count 22.1 x10^3/uL (4.0-11.0) Red Blood Count 3.11 x10^6/uL (3.50-5.40) Hemoglobin 9.1 g/dL (12.0-15.5) Hematocrit 29.2 % (36.0-47.0) Mean Corpuscular Volume 94 fL (79-100) Mean Corpuscular Hemoglobin 29 pg (25-35) Mean Corpuscular Hemoglobin Concent 31 g/dL (31-37) Red Cell Distribution Width 16.7 % (11.5-14.5) Platelet Count 284 x10^3/uL (140-400) Neutrophils (%) (Auto) 71 % (31-73) Lymphocytes (%) (Auto) 19 % (24-48) Monocytes (%) (Auto) 6 % (0-9) Eosinophils (%) (Auto) 2 % (0-3) Basophils (%) (Auto) 1 % (0-3) Neutrophils # (Auto) 15.7 x10^3uL (1.8-7.7) Lymphocytes # (Auto) 4.2 x10^3/uL (1.0-4.8) Monocytes # (Auto) 1.4 x10^3/uL (0.0-1.1) Eosinophils # (Auto) 0.5 x10^3/uL (0.0-0.7) Basophils # (Auto) 0.3 x10^3/uL (0.0-0.2) Segmented Neutrophils % 66 % (35-66) Band Neutrophils % 3 % (0-9) Lymphocytes % 25 % (24-48) Monocytes % 5 % (0-10) Myelocytes % 1 % (0-0) Toxic Granulation Slight Platelet Estimate Adequate (ADEQUATE) Polychromasia Slight Sodium Level 136 mmol/L (136-145) Potassium Level 4.4 mmol/L (3.5-5.1) Chloride Level 102 mmol/L (98-107) Carbon Dioxide Level 25 mmol/L (21-32) Anion Gap 9 (6-14) 15 mmol/L (6-14) Blood Urea Nitrogen 56 mg/dL (7-20) Creatinine 7.1 mg/dL (0.6-1.0) Estimated GFR (Cockcroft-Gault) 5.8 BUN/Creatinine Ratio 8 (6-20) Glucose Level 228 mg/dL (70-99) 217 mg/dL (70-99) Lactic Acid Level 2.2 mmol/L (0.4-2.0) Calcium Level 8.2 mg/dL (8.5-10.1) Total Bilirubin 0.3 mg/dL (0.2-1.0) Aspartate Amino Transf (AST/SGOT) 14 U/L (15-37) Alanine Aminotransferase (ALT/SGPT) 15 U/L (14-59) Alkaline Phosphatase 165 U/L (46-116) Creatine Kinase 57 U/L (26-192) Creatine Kinase MB (Mass) 1.1 ng/mL (0.0-3.6) Creatine Kinase MB Relative Index 1.9 % (0-4) Troponin I Quantitative 0.077 ng/mL (0.000-0.055) LC-Cde-W-Type Natriuretic Peptide > 77999 pg/mL (0-124) Total Protein 6.4 g/dL (6.4-8.2) Albumin 2.4 g/dL (3.4-5.0) Albumin/Globulin Ratio 0.6 (1.0-1.7) Thyroid Stimulating Hormone (TSH) 7.641 uIU/mL (0.358-3.74) O2 Saturation 98 % (92-99) Arterial Blood pH 7.28 (7.35-7.45) Arterial Blood pCO2 at Patient Temp 41 mmHg (35-46) Arterial Blood pO2 at Patient Temp 156 mmHg (65-108) Arterial Blood HCO3 19 mmol/L (21-28) Arterial Blood Base Excess -7 mmol/L (-3-3) FiO2 80 Bedside Troponin I 0.11 ng/ml (<0.08) Bedside Hemoglobin 9.2 g/dL (12-15) Bedside Hematocrit 27 % (36-40) Bedside Sodium 136 mmol/L (135-145) Bedside Potassium 4.4 mmol/L (3.5-5.0) Bedside Chloride 103 mmol/L (98-110) Bedside Total CO2 23 mmol/L (23-32) Bedside Blood Urea Nitrogen 55 mg/dL (8-26) Bedside Creatinine 7.6 mg/dL (0.5-1.4) Bedside Ionized Calcium (Jay) 1.04 mmol/L (1.13-1.32) Test 11/11/16 16:00 11/11/16 17:49 11/11/16 17:50 11/11/16 22:02 Nasal Screen MRSA (PCR) Negative (Negative) Glucose (Fingerstick) 147 mg/dL (70-99) 296 mg/dL (70-99) Sodium Level 137 mmol/L (136-145) Potassium Level 4.1 mmol/L (3.5-5.1) Chloride Level 99 mmol/L (98-107) Carbon Dioxide Level 29 mmol/L (21-32) Anion Gap 9 (6-14) Blood Urea Nitrogen 25 mg/dL (7-20) Creatinine 3.3 mg/dL (0.6-1.0) Estimated GFR (Cockcroft-Gault) 14.0 Glucose Level 160 mg/dL (70-99) Calcium Level 8.4 mg/dL (8.5-10.1) Test 11/12/16 00:55 11/12/16 00:59 11/12/16 03:04 11/12/16 04:50 Glucose (Fingerstick) 284 mg/dL (70-99) White Blood Count 10.6 x10^3/uL (4.0-11.0) 8.7 x10^3/uL (4.0-11.0) Red Blood Count 2.91 x10^6/uL (3.50-5.40) 2.35 x10^6/uL (3.50-5.40) Hemoglobin 8.7 g/dL (12.0-15.5) 7.1 g/dL (12.0-15.5) Hematocrit 26.6 % (36.0-47.0) 21.2 % (36.0-47.0) Mean Corpuscular Volume 91 fL (79-100) 90 fL (79-100) Mean Corpuscular Hemoglobin 30 pg (25-35) 30 pg (25-35) Mean Corpuscular Hemoglobin Concent 33 g/dL (31-37) 34 g/dL (31-37) Red Cell Distribution Width 16.1 % (11.5-14.5) 15.7 % (11.5-14.5) Platelet Count 184 x10^3/uL (140-400) 144 x10^3/uL (140-400) Neutrophils (%) (Auto) 86 % (31-73) 81 % (31-73) Lymphocytes (%) (Auto) 12 % (24-48) 10 % (24-48) Monocytes (%) (Auto) 2 % (0-9) 8 % (0-9) Eosinophils (%) (Auto) 0 % (0-3) 0 % (0-3) Basophils (%) (Auto) 1 % (0-3) 1 % (0-3) Neutrophils # (Auto) 9.1 x10^3uL (1.8-7.7) 7.1 x10^3uL (1.8-7.7) Lymphocytes # (Auto) 1.3 x10^3/uL (1.0-4.8) 0.9 x10^3/uL (1.0-4.8) Monocytes # (Auto) 0.2 x10^3/uL (0.0-1.1) 0.7 x10^3/uL (0.0-1.1) Eosinophils # (Auto) 0.0 x10^3/uL (0.0-0.7) 0.0 x10^3/uL (0.0-0.7) Basophils # (Auto) 0.0 x10^3/uL (0.0-0.2) 0.0 x10^3/uL (0.0-0.2) Sodium Level 136 mmol/L (136-145) 138 mmol/L (136-145) Potassium Level 4.4 mmol/L (3.5-5.1) 4.1 mmol/L (3.5-5.1) Chloride Level 100 mmol/L (98-107) 102 mmol/L (98-107) Carbon Dioxide Level 27 mmol/L (21-32) 28 mmol/L (21-32) Anion Gap 9 (6-14) 8 (6-14) Blood Urea Nitrogen 33 mg/dL (7-20) 36 mg/dL (7-20) Creatinine 5.0 mg/dL (0.6-1.0) 5.0 mg/dL (0.6-1.0) Estimated GFR (Cockcroft-Gault) 8.7 8.7 BUN/Creatinine Ratio 7 (6-20) Glucose Level 293 mg/dL (70-99) 223 mg/dL (70-99) Calcium Level 8.3 mg/dL (8.5-10.1) 8.4 mg/dL (8.5-10.1) Phosphorus Level 4.4 mg/dL (2.6-4.7) Magnesium Level 2.0 mg/dL (1.8-2.4) Total Bilirubin 0.3 mg/dL (0.2-1.0) Aspartate Amino Transf (AST/SGOT) 16 U/L (15-37) Alanine Aminotransferase (ALT/SGPT) 18 U/L (14-59) Alkaline Phosphatase 140 U/L (46-116) Total Protein 5.7 g/dL (6.4-8.2) Albumin 2.1 g/dL (3.4-5.0) Albumin/Globulin Ratio 0.6 (1.0-1.7) O2 Saturation 98 % (92-99) Arterial Blood pH 7.53 (7.35-7.45) Arterial Blood pCO2 at Patient Temp 30 mmHg (35-46) Arterial Blood pO2 at Patient Temp 101 mmHg (65-108) Arterial Blood HCO3 25 mmol/L (21-28) Arterial Blood Base Excess 2 mmol/L (-3-3) FiO2 40 Prothrombin Time 15.6 SEC (11.7-14.0) Prothromb Time International Ratio 1.3 (0.8-1.1) Lactic Acid Level 2.0 mmol/L (0.4-2.0) Troponin I Quantitative 0.127 ng/mL (0.000-0.055) Test 11/12/16 08:00 11/12/16 08:38 11/12/16 09:05 O2 Saturation 94 % (92-99) Arterial Blood pH 7.46 (7.35-7.45) Arterial Blood pCO2 at Patient Temp 37 mmHg (35-46) Arterial Blood pO2 at Patient Temp 71 mmHg (65-108) Arterial Blood HCO3 26 mmol/L (21-28) Arterial Blood Base Excess 2 mmol/L (-3-3) FiO2 40 Glucose (Fingerstick) 117 mg/dL (70-99) Heparin Anti-Xa Act, Unfractionated 0.24 IU/mL (0.30-0.70) Review of Systems Review of Systems intubated, sedated Assessment and Plan Assessmemt and Plan Problems Medical Problems: (1) Fluid overload Status: Acute (2) Hypoxia Status: Acute (3) Pneumonia Status: Acute (4) SIRS (systemic inflammatory response syndrome) Status: Acute Problems: Comment Review of Relevant I have reviewed the following items ashley (where applicable) has been applied. Labs Laboratory Tests Test 11/11/16 11:28 11/11/16 11:40 11/11/16 11:45 11/11/16 11:48 White Blood Count 22.1 x10^3/uL (4.0-11.0) Red Blood Count 3.11 x10^6/uL (3.50-5.40) Hemoglobin 9.1 g/dL (12.0-15.5) Hematocrit 29.2 % (36.0-47.0) Mean Corpuscular Volume 94 fL (79-100) Mean Corpuscular Hemoglobin 29 pg (25-35) Mean Corpuscular Hemoglobin Concent 31 g/dL (31-37) Red Cell Distribution Width 16.7 % (11.5-14.5) Platelet Count 284 x10^3/uL (140-400) Neutrophils (%) (Auto) 71 % (31-73) Lymphocytes (%) (Auto) 19 % (24-48) Monocytes (%) (Auto) 6 % (0-9) Eosinophils (%) (Auto) 2 % (0-3) Basophils (%) (Auto) 1 % (0-3) Neutrophils # (Auto) 15.7 x10^3uL (1.8-7.7) Lymphocytes # (Auto) 4.2 x10^3/uL (1.0-4.8) Monocytes # (Auto) 1.4 x10^3/uL (0.0-1.1) Eosinophils # (Auto) 0.5 x10^3/uL (0.0-0.7) Basophils # (Auto) 0.3 x10^3/uL (0.0-0.2) Segmented Neutrophils % 66 % (35-66) Band Neutrophils % 3 % (0-9) Lymphocytes % 25 % (24-48) Monocytes % 5 % (0-10) Myelocytes % 1 % (0-0) Toxic Granulation Slight Platelet Estimate Adequate (ADEQUATE) Polychromasia Slight Sodium Level 136 mmol/L (136-145) Potassium Level 4.4 mmol/L (3.5-5.1) Chloride Level 102 mmol/L (98-107) Carbon Dioxide Level 25 mmol/L (21-32) Anion Gap 9 (6-14) 15 mmol/L (6-14) Blood Urea Nitrogen 56 mg/dL (7-20) Creatinine 7.1 mg/dL (0.6-1.0) Estimated GFR (Cockcroft-Gault) 5.8 BUN/Creatinine Ratio 8 (6-20) Glucose Level 228 mg/dL (70-99) 217 mg/dL (70-99) Lactic Acid Level 2.2 mmol/L (0.4-2.0) Calcium Level 8.2 mg/dL (8.5-10.1) Total Bilirubin 0.3 mg/dL (0.2-1.0) Aspartate Amino Transf (AST/SGOT) 14 U/L (15-37) Alanine Aminotransferase (ALT/SGPT) 15 U/L (14-59) Alkaline Phosphatase 165 U/L (46-116) Creatine Kinase 57 U/L (26-192) Creatine Kinase MB (Mass) 1.1 ng/mL (0.0-3.6) Creatine Kinase MB Relative Index 1.9 % (0-4) Troponin I Quantitative 0.077 ng/mL (0.000-0.055) PS-Cis-C-Type Natriuretic Peptide > 82741 pg/mL (0-124) Total Protein 6.4 g/dL (6.4-8.2) Albumin 2.4 g/dL (3.4-5.0) Albumin/Globulin Ratio 0.6 (1.0-1.7) Thyroid Stimulating Hormone (TSH) 7.641 uIU/mL (0.358-3.74) O2 Saturation 98 % (92-99) Arterial Blood pH 7.28 (7.35-7.45) Arterial Blood pCO2 at Patient Temp 41 mmHg (35-46) Arterial Blood pO2 at Patient Temp 156 mmHg (65-108) Arterial Blood HCO3 19 mmol/L (21-28) Arterial Blood Base Excess -7 mmol/L (-3-3) FiO2 80 Bedside Troponin I 0.11 ng/ml (<0.08) Bedside Hemoglobin 9.2 g/dL (12-15) Bedside Hematocrit 27 % (36-40) Bedside Sodium 136 mmol/L (135-145) Bedside Potassium 4.4 mmol/L (3.5-5.0) Bedside Chloride 103 mmol/L (98-110) Bedside Total CO2 23 mmol/L (23-32) Bedside Blood Urea Nitrogen 55 mg/dL (8-26) Bedside Creatinine 7.6 mg/dL (0.5-1.4) Bedside Ionized Calcium (Jay) 1.04 mmol/L (1.13-1.32) Test 8/22/17 16:00 11/11/16 17:49 11/11/16 17:50 11/11/16 22:02 Nasal Screen MRSA (PCR) Negative (Negative) Glucose (Fingerstick) 147 mg/dL (70-99) 296 mg/dL (70-99) Sodium Level 137 mmol/L (136-145) Potassium Level 4.1 mmol/L (3.5-5.1) Chloride Level 99 mmol/L (98-107) Carbon Dioxide Level 29 mmol/L (21-32) Anion Gap 9 (6-14) Blood Urea Nitrogen 25 mg/dL (7-20) Creatinine 3.3 mg/dL (0.6-1.0) Estimated GFR (Cockcroft-Gault) 14.0 Glucose Level 160 mg/dL (70-99) Calcium Level 8.4 mg/dL (8.5-10.1) Test 11/12/16 00:55 11/12/16 00:59 11/12/16 03:04 11/12/16 04:50 Glucose (Fingerstick) 284 mg/dL (70-99) White Blood Count 10.6 x10^3/uL (4.0-11.0) 8.7 x10^3/uL (4.0-11.0) Red Blood Count 2.91 x10^6/uL (3.50-5.40) 2.35 x10^6/uL (3.50-5.40) Hemoglobin 8.7 g/dL (12.0-15.5) 7.1 g/dL (12.0-15.5) Hematocrit 26.6 % (36.0-47.0) 21.2 % (36.0-47.0) Mean Corpuscular Volume 91 fL (79-100) 90 fL (79-100) Mean Corpuscular Hemoglobin 30 pg (25-35) 30 pg (25-35) Mean Corpuscular Hemoglobin Concent 33 g/dL (31-37) 34 g/dL (31-37) Red Cell Distribution Width 16.1 % (11.5-14.5) 15.7 % (11.5-14.5) Platelet Count 184 x10^3/uL (140-400) 144 x10^3/uL (140-400) Neutrophils (%) (Auto) 86 % (31-73) 81 % (31-73) Lymphocytes (%) (Auto) 12 % (24-48) 10 % (24-48) Monocytes (%) (Auto) 2 % (0-9) 8 % (0-9) Eosinophils (%) (Auto) 0 % (0-3) 0 % (0-3) Basophils (%) (Auto) 1 % (0-3) 1 % (0-3) Neutrophils # (Auto) 9.1 x10^3uL (1.8-7.7) 7.1 x10^3uL (1.8-7.7) Lymphocytes # (Auto) 1.3 x10^3/uL (1.0-4.8) 0.9 x10^3/uL (1.0-4.8) Monocytes # (Auto) 0.2 x10^3/uL (0.0-1.1) 0.7 x10^3/uL (0.0-1.1) Eosinophils # (Auto) 0.0 x10^3/uL (0.0-0.7) 0.0 x10^3/uL (0.0-0.7) Basophils # (Auto) 0.0 x10^3/uL (0.0-0.2) 0.0 x10^3/uL (0.0-0.2) Sodium Level 136 mmol/L (136-145) 138 mmol/L (136-145) Potassium Level 4.4 mmol/L (3.5-5.1) 4.1 mmol/L (3.5-5.1) Chloride Level 100 mmol/L (98-107) 102 mmol/L (98-107) Carbon Dioxide Level 27 mmol/L (21-32) 28 mmol/L (21-32) Anion Gap 9 (6-14) 8 (6-14) Blood Urea Nitrogen 33 mg/dL (7-20) 36 mg/dL (7-20) Creatinine 5.0 mg/dL (0.6-1.0) 5.0 mg/dL (0.6-1.0) Estimated GFR (Cockcroft-Gault) 8.7 8.7 BUN/Creatinine Ratio 7 (6-20) Glucose Level 293 mg/dL (70-99) 223 mg/dL (70-99) Calcium Level 8.3 mg/dL (8.5-10.1) 8.4 mg/dL (8.5-10.1) Phosphorus Level 4.4 mg/dL (2.6-4.7) Magnesium Level 2.0 mg/dL (1.8-2.4) Total Bilirubin 0.3 mg/dL (0.2-1.0) Aspartate Amino Transf (AST/SGOT) 16 U/L (15-37) Alanine Aminotransferase (ALT/SGPT) 18 U/L (14-59) Alkaline Phosphatase 140 U/L (46-116) Total Protein 5.7 g/dL (6.4-8.2) Albumin 2.1 g/dL (3.4-5.0) Albumin/Globulin Ratio 0.6 (1.0-1.7) O2 Saturation 98 % (92-99) Arterial Blood pH 7.53 (7.35-7.45) Arterial Blood pCO2 at Patient Temp 30 mmHg (35-46) Arterial Blood pO2 at Patient Temp 101 mmHg (65-108) Arterial Blood HCO3 25 mmol/L (21-28) Arterial Blood Base Excess 2 mmol/L (-3-3) FiO2 40 Prothrombin Time 15.6 SEC (11.7-14.0) Prothromb Time International Ratio 1.3 (0.8-1.1) Lactic Acid Level 2.0 mmol/L (0.4-2.0) Troponin I Quantitative 0.127 ng/mL (0.000-0.055) Test 11/12/16 08:00 11/12/16 08:38 11/12/16 09:05 O2 Saturation 94 % (92-99) Arterial Blood pH 7.46 (7.35-7.45) Arterial Blood pCO2 at Patient Temp 37 mmHg (35-46) Arterial Blood pO2 at Patient Temp 71 mmHg (65-108) Arterial Blood HCO3 26 mmol/L (21-28) Arterial Blood Base Excess 2 mmol/L (-3-3) FiO2 40 Glucose (Fingerstick) 117 mg/dL (70-99) Heparin Anti-Xa Act, Unfractionated 0.24 IU/mL (0.30-0.70) Laboratory Tests Test 11/11/16 11:28 11/11/16 11:40 11/11/16 11:45 11/11/16 11:48 White Blood Count 22.1 x10^3/uL (4.0-11.0) Red Blood Count 3.11 x10^6/uL (3.50-5.40) Hemoglobin 9.1 g/dL (12.0-15.5) Hematocrit 29.2 % (36.0-47.0) Mean Corpuscular Volume 94 fL (79-100) Mean Corpuscular Hemoglobin 29 pg (25-35) Mean Corpuscular Hemoglobin Concent 31 g/dL (31-37) Red Cell Distribution Width 16.7 % (11.5-14.5) Platelet Count 284 x10^3/uL (140-400) Neutrophils (%) (Auto) 71 % (31-73) Lymphocytes (%) (Auto) 19 % (24-48) Monocytes (%) (Auto) 6 % (0-9) Eosinophils (%) (Auto) 2 % (0-3) Basophils (%) (Auto) 1 % (0-3) Neutrophils # (Auto) 15.7 x10^3uL (1.8-7.7) Lymphocytes # (Auto) 4.2 x10^3/uL (1.0-4.8) Monocytes # (Auto) 1.4 x10^3/uL (0.0-1.1) Eosinophils # (Auto) 0.5 x10^3/uL (0.0-0.7) Basophils # (Auto) 0.3 x10^3/uL (0.0-0.2) Segmented Neutrophils % 66 % (35-66) Band Neutrophils % 3 % (0-9) Lymphocytes % 25 % (24-48) Monocytes % 5 % (0-10) Myelocytes % 1 % (0-0) Toxic Granulation Slight Platelet Estimate Adequate (ADEQUATE) Polychromasia Slight Sodium Level 136 mmol/L (136-145) Potassium Level 4.4 mmol/L (3.5-5.1) Chloride Level 102 mmol/L (98-107) Carbon Dioxide Level 25 mmol/L (21-32) Anion Gap 9 (6-14) 15 mmol/L (6-14) Blood Urea Nitrogen 56 mg/dL (7-20) Creatinine 7.1 mg/dL (0.6-1.0) Estimated GFR (Cockcroft-Gault) 5.8 BUN/Creatinine Ratio 8 (6-20) Glucose Level 228 mg/dL (70-99) 217 mg/dL (70-99) Lactic Acid Level 2.2 mmol/L (0.4-2.0) Calcium Level 8.2 mg/dL (8.5-10.1) Total Bilirubin 0.3 mg/dL (0.2-1.0) Aspartate Amino Transf (AST/SGOT) 14 U/L (15-37) Alanine Aminotransferase (ALT/SGPT) 15 U/L (14-59) Alkaline Phosphatase 165 U/L (46-116) Creatine Kinase 57 U/L (26-192) Creatine Kinase MB (Mass) 1.1 ng/mL (0.0-3.6) Creatine Kinase MB Relative Index 1.9 % (0-4) Troponin I Quantitative 0.077 ng/mL (0.000-0.055) XK-Qax-U-Type Natriuretic Peptide > 61095 pg/mL (0-124) Total Protein 6.4 g/dL (6.4-8.2) Albumin 2.4 g/dL (3.4-5.0) Albumin/Globulin Ratio 0.6 (1.0-1.7) Thyroid Stimulating Hormone (TSH) 7.641 uIU/mL (0.358-3.74) O2 Saturation 98 % (92-99) Arterial Blood pH 7.28 (7.35-7.45) Arterial Blood pCO2 at Patient Temp 41 mmHg (35-46) Arterial Blood pO2 at Patient Temp 156 mmHg (65-108) Arterial Blood HCO3 19 mmol/L (21-28) Arterial Blood Base Excess -7 mmol/L (-3-3) FiO2 80 Bedside Troponin I 0.11 ng/ml (<0.08) Bedside Hemoglobin 9.2 g/dL (12-15) Bedside Hematocrit 27 % (36-40) Bedside Sodium 136 mmol/L (135-145) Bedside Potassium 4.4 mmol/L (3.5-5.0) Bedside Chloride 103 mmol/L (98-110) Bedside Total CO2 23 mmol/L (23-32) Bedside Blood Urea Nitrogen 55 mg/dL (8-26) Bedside Creatinine 7.6 mg/dL (0.5-1.4) Bedside Ionized Calcium (Jay) 1.04 mmol/L (1.13-1.32) Test 11/11/16 16:00 11/11/16 17:49 11/11/16 17:50 11/11/16 22:02 Nasal Screen MRSA (PCR) Negative (Negative) Glucose (Fingerstick) 147 mg/dL (70-99) 296 mg/dL (70-99) Sodium Level 137 mmol/L (136-145) Potassium Level 4.1 mmol/L (3.5-5.1) Chloride Level 99 mmol/L (98-107) Carbon Dioxide Level 29 mmol/L (21-32) Anion Gap 9 (6-14) Blood Urea Nitrogen 25 mg/dL (7-20) Creatinine 3.3 mg/dL (0.6-1.0) Estimated GFR (Cockcroft-Gault) 14.0 Glucose Level 160 mg/dL (70-99) Calcium Level 8.4 mg/dL (8.5-10.1) Test 11/12/16 00:55 11/12/16 00:59 11/12/16 03:04 11/12/16 04:50 Glucose (Fingerstick) 284 mg/dL (70-99) White Blood Count 10.6 x10^3/uL (4.0-11.0) 8.7 x10^3/uL (4.0-11.0) Red Blood Count 2.91 x10^6/uL (3.50-5.40) 2.35 x10^6/uL (3.50-5.40) Hemoglobin 8.7 g/dL (12.0-15.5) 7.1 g/dL (12.0-15.5) Hematocrit 26.6 % (36.0-47.0) 21.2 % (36.0-47.0) Mean Corpuscular Volume 91 fL (79-100) 90 fL (79-100) Mean Corpuscular Hemoglobin 30 pg (25-35) 30 pg (25-35) Mean Corpuscular Hemoglobin Concent 33 g/dL (31-37) 34 g/dL (31-37) Red Cell Distribution Width 16.1 % (11.5-14.5) 15.7 % (11.5-14.5) Platelet Count 184 x10^3/uL (140-400) 144 x10^3/uL (140-400) Neutrophils (%) (Auto) 86 % (31-73) 81 % (31-73) Lymphocytes (%) (Auto) 12 % (24-48) 10 % (24-48) Monocytes (%) (Auto) 2 % (0-9) 8 % (0-9) Eosinophils (%) (Auto) 0 % (0-3) 0 % (0-3) Basophils (%) (Auto) 1 % (0-3) 1 % (0-3) Neutrophils # (Auto) 9.1 x10^3uL (1.8-7.7) 7.1 x10^3uL (1.8-7.7) Lymphocytes # (Auto) 1.3 x10^3/uL (1.0-4.8) 0.9 x10^3/uL (1.0-4.8) Monocytes # (Auto) 0.2 x10^3/uL (0.0-1.1) 0.7 x10^3/uL (0.0-1.1) Eosinophils # (Auto) 0.0 x10^3/uL (0.0-0.7) 0.0 x10^3/uL (0.0-0.7) Basophils # (Auto) 0.0 x10^3/uL (0.0-0.2) 0.0 x10^3/uL (0.0-0.2) Sodium Level 136 mmol/L (136-145) 138 mmol/L (136-145) Potassium Level 4.4 mmol/L (3.5-5.1) 4.1 mmol/L (3.5-5.1) Chloride Level 100 mmol/L (98-107) 102 mmol/L (98-107) Carbon Dioxide Level 27 mmol/L (21-32) 28 mmol/L (21-32) Anion Gap 9 (6-14) 8 (6-14) Blood Urea Nitrogen 33 mg/dL (7-20) 36 mg/dL (7-20) Creatinine 5.0 mg/dL (0.6-1.0) 5.0 mg/dL (0.6-1.0) Estimated GFR (Cockcroft-Gault) 8.7 8.7 BUN/Creatinine Ratio 7 (6-20) Glucose Level 293 mg/dL (70-99) 223 mg/dL (70-99) Calcium Level 8.3 mg/dL (8.5-10.1) 8.4 mg/dL (8.5-10.1) Phosphorus Level 4.4 mg/dL (2.6-4.7) Magnesium Level 2.0 mg/dL (1.8-2.4) Total Bilirubin 0.3 mg/dL (0.2-1.0) Aspartate Amino Transf (AST/SGOT) 16 U/L (15-37) Alanine Aminotransferase (ALT/SGPT) 18 U/L (14-59) Alkaline Phosphatase 140 U/L (46-116) Total Protein 5.7 g/dL (6.4-8.2) Albumin 2.1 g/dL (3.4-5.0) Albumin/Globulin Ratio 0.6 (1.0-1.7) O2 Saturation 98 % (92-99) Arterial Blood pH 7.53 (7.35-7.45) Arterial Blood pCO2 at Patient Temp 30 mmHg (35-46) Arterial Blood pO2 at Patient Temp 101 mmHg (65-108) Arterial Blood HCO3 25 mmol/L (21-28) Arterial Blood Base Excess 2 mmol/L (-3-3) FiO2 40 Prothrombin Time 15.6 SEC (11.7-14.0) Prothromb Time International Ratio 1.3 (0.8-1.1) Lactic Acid Level 2.0 mmol/L (0.4-2.0) Troponin I Quantitative 0.127 ng/mL (0.000-0.055) Test 11/12/16 08:00 11/12/16 08:38 11/12/16 09:05 O2 Saturation 94 % (92-99) Arterial Blood pH 7.46 (7.35-7.45) Arterial Blood pCO2 at Patient Temp 37 mmHg (35-46) Arterial Blood pO2 at Patient Temp 71 mmHg (65-108) Arterial Blood HCO3 26 mmol/L (21-28) Arterial Blood Base Excess 2 mmol/L (-3-3) FiO2 40 Glucose (Fingerstick) 117 mg/dL (70-99) Heparin Anti-Xa Act, Unfractionated 0.24 IU/mL (0.30-0.70) Medications Current Medications Sodium Chloride 1,000 ml @ 100 mls/hr Q10H IV Last administered on 11/11/16 12:04; Start 11/11/16 at 11:40; Stop 11/11/16 at 21:39; Status DC Iohexol (Omnipaque 300 Mg/ml) 75 ml 1X ONCE IV Last administered on 11/11/16 12:45; Start 11/11/16 at 12:45; Stop 11/11/16 at 12:46; Status DC Info (Do NOT chart on this entry -- for MONITORING) 1 each PRN DAILY PRN MC SEE COMMENTS; Start 11/11/16 at 13:00; Stop 11/13/16 at 12:59 Ondansetron HCl (Zofran) 4 mg PRN Q6HRS PRN IV NAUSEA/VOMITING; Start 11/11/16 at 13:30 Prochlorperazine Edisylate (Compazine) 10 mg PRN Q6HRS PRN IV NAUSEA/VOMITING, 2nd choice; Start 11/11/16 at 13:30 Prochlorperazine (Compazine) 25 mg PRN Q12HR PRN [place] NAUSEA/VOMITING; Start at 13:30 Al Hydroxide/Mg Hydroxide (Mylanta Plus Xs) 30 ml PRN Q3HRS PRN PO HEARTBURN / GAS; Start 11/11/16 at 13:30; Status Cancel Calcium Carbonate/ Glycine (Tums) 500 mg PRN Q3HRS PRN PO UPSET STOMACH; Start 11/11/16 at 13:30 Acetaminophen/ Hydrocodone Bitart (Lortab 5/325) 1 tab PRN Q4HRS PRN PO MILD PAIN; Start 11/11/16 at 13:30 Acetaminophen (Tylenol) 650 mg PRN Q6HRS PRN PO Headaches, Temp > 101.5F; Start 11/11/16 at 13:30 Heparin Sodium (Porcine) (Heparin Sq) 5,000 unit Q8HRS SQ Last administered on 11/11/16 22:05; Start 11/11/16 at 22:00; Stop 11/12/16 at 01:51; Status DC Fentanyl Citrate (Fentanyl 2ml Vial) 50 mcg PRN Q2HR PRN IV pain; Start at 13:30 Albuterol/ Ipratropium (Duoneb) 3 ml RTQID NEB Last administered on 11/12/16 08:05; Start 11/11/16 at 16:00 Nicotine (Nicoderm Cq 21mg) 1 patch PRN DAILY PRN TD SMOKING CESSATION; Start 11/11/16 at 13:30 Guaifenesin (Robitussin Dm) 10 ml PRN Q6HRS PRN PO COUGH; Start 11/11/16 at 13: 30 Acetaminophen (Tylenol) 500 mg PRN Q12HRS PRN PO MILD PAIN, 1st choice; Start 11/11/16 at 13:45 Alprazolam (Xanax) 0.25 mg DAILY PRN PO ANXIETY / AGITATION; Start 11/11/16 at 13:45 Aspirin (Ecotrin) 81 mg DAILYWBKFT PO Last administered on 11/12/16 09:34; Start 11/12/16 at 08:00 Atorvastatin Calcium (Lipitor) 10 mg QHS PO Last administered on 11/11/16 20: 32; Start 11/11/16 at 21:00 Carvedilol (Coreg) 3.125 mg BIDWMEALS PO Last administered on 11/11/16 22:06; Start 11/11/16 at 17:00 Cinacalcet (Sensipar) 30 mg QHS PO Last administered on 11/11/16 22:06; Start 11/11/16 at 21:00 Clopidogrel Bisulfate (Plavix) 75 mg DAILYWBKFT PO Last administered on 09:34; Start 11/12/16 at 08:00 Furosemide (Lasix) 60 mg DAILY PRN PO SEE COMMENTS Last administered on 09:34; Start 11/11/16 at 13:45 Lisinopril (Prinivil) 40 mg QTUTHSASU PO Last administered on 11/11/16 22:06; Start 11/11/16 at 16:00 Metolazone (Zaroxolyn) 2.5 mg 3X/WEEK PO ; Start 11/12/16 at 09:00 Potassium Chloride (Klor-Con) 20 meq WEEKLY PRN PO SEE COMMENTS; Start at 13:45 Sertraline HCl (Zoloft) 50 mg QHS PO Last administered on 11/11/16 20:33; Start 11/11/16 at 21:00 Calcium Acetate (Phoslo) 1,334 mg TIDWMEALS PO Last administered on 11/12/16 09:34; Start 11/11/16 at 17:00 Non-Formulary Medication 1 each DAILY PO ; Start 11/12/16 at 09:00; Status UNV Non-Formulary Medication 210 mg TIDWMEALS PO ; Start 11/11/16 at 17:00; Status UNV Gabapentin (Neurontin) 300 mg DAILY PO Last administered on 11/12/16 09:34; Start 11/12/16 at 09:00 Insulin Detemir (Levemir) 50 units QHS SQ Last administered on 11/11/16 22:04 ; Start 11/11/16 at 21:00 Non-Formulary Medication 5 mg HS PO ; Start 11/11/16 at 21:00; Status UNV Vitamin B Complex/ Vitamin C (Alayna-Oneil) 1 tab DAILY PO Last administered on 09:33; Start 11/12/16 at 09:00 Insulin Aspart (NovoLOG) 0-9 UNITS TIDWMEALS SQ ; Start 11/11/16 at 17:00 Dextrose (Dextrose 50%-Water Syringe) 12.5 gm PRN Q15MIN PRN IV SEE COMMENTS; Start 11/11/16 at 13:45 Sodium Chloride 1,000 ml @ 100 mls/hr Q10H IV Last administered on 11/12/16 06:05; Start 11/11/16 at 13:49; Stop 11/11/16 at 23:48; Status DC Albuterol/ Ipratropium (Duoneb) 3 ml 1X ONCE NEB Last administered on 14:56; Start 11/11/16 at 14:00; Stop 11/11/16 at 14:31; Status DC Methylprednisolone Sodium Succinate (SOLU-Medrol 125MG VIAL) 125 mg 1X ONCE IV Last administered on 11/11/16 14:58; Start 11/11/16 at 14:30; Stop 11/11/16 at 14:32; Status DC Cefepime HCl 1 gm/ Sodium Chloride 50 ml @ 100 mls/hr Q24H IV ; Start 11/12/16 at 14:00 Vancomycin HCl 1.5 gm/Sodium Chloride 500 ml @ 250 mls/hr 1X ONCE IV ; Start 11/11/16 at 14:30; Stop 11/11/16 at 16:29; Status UNV Vancomycin HCl 2 gm/Sodium Chloride 500 ml @ 250 mls/hr ONCE ONCE IV Last administered on 11/11/16t 20:30; Start 11/11/16 at 14:30; Stop 11/11/16 at 16:29 ; Status DC Cefepime HCl 1 gm/ Sodium Chloride 50 ml @ 100 mls/hr ONCE ONCE IV Last administered on 11/11/16 15:01; Start 11/11/16 at 14:45; Stop 11/11/16 at 15:14 ; Status DC Amiodarone HCl 150 mg/Dextrose 103 ml @ 618 mls/hr 1X ONCE IV ; Start at 01:30; Stop 11/12/16 at 01:39; Status DC Amiodarone HCl 900 mg/Dextrose 518 ml @ 0 mls/hr CONT PRN IV SEE I/O RECORD Last administered on 11/12/16 06:07; Start 11/12/16 at 01:45; Stop 11/12/16 at 06:07; Status DC Etomidate (Amidate) 20 mg 1X ONCE IV ; Start 11/12/16 at 01:15; Stop 11/12/16 at 01:16; Status DC Rocuronium [place] (Zemuron) 100 mg 1X ONCE IV ; Start 11/12/16 at 01:15; Stop 11/12/16 at 01:16; Status DC Etomidate (Amidate) 20 mg STK-MED ONCE IV ; Start 11/12/16 at 01:03; Stop at 01:04; Status DC Propofol 100 ml @ As Directed STK-MED ONCE IV ; Start 11/12/16 at 01:17; Stop 11/12/16 at 01:18; Status DC Propofol 100 ml @ 0 mls/hr CONT PRN IV SEE I/O RECORD; Start 11/12/16 at 01:30 Rocuronium [place] (Zemuron) 50 mg STK-MED ONCE .ROUTE ; Start 11/12/16 at 01:33 ; Stop 11/12/16 at 01:34; Status DC Heparin Sodium (Porcine) (Heparin Sodium) 4,000 unit 1X ONCE IV Last administered on 11/12/16 02:56; Start 11/12/16 at 02:00; Stop 11/12/16 at 02:01 ; Status DC Heparin Sodium/ Dextrose 500 ml @ 0 mls/hr CONT PRN IV SEE I/O RECORD Last administered on 11/12/16 03:04; Start 11/12/16 at 01:45 Heparin Sodium (Porcine) (Heparin Sodium) 1,750 unit PRN Q6HRS PRN IV FOR UFH LEVEL LESS THAN 0.2; Start 11/12/16 at 01:45 Info (Anti-Coagulation Monitoring By Pharmacy) 1 each PRN DAILY PRN MC SEE COMMENTS Last administered on 11/12/16 09:22; Start 11/12/16 at 02:00 Pantoprazole Sodium (Protonix) 40 mg DAILYAC PO Last administered on 11/12/16 09:35; Start 11/12/16 at 10:30 Budesonide (Pulmicort) 0.5 mg RTBID NEB ; Start 11/12/16 at 10:30 Active Scripts Active Lisinopril 40 Mg Tablet 40 Mg PO [id number] Carvedilol 3.125 Mg Tablet 3.125 Mg PO BIDWMEALS Reported Sertraline Hcl 50 Mg Tablet 50 Mg PO QHS Sensipar (Cinacalcet Hcl) 30 Mg Tablet 1 Tab PO QHS Alayna-Oneil Rx Tablet (Vit B Cmplx 3/Fa/Vit C/Biotin) 1 Each Tablet 1 Each PO DAILY Cranberry Plus Vitamin C Sftgl (Cranberry Conc/Ascorbic Acid) 1 Each Capsule 1 Each PO DAILY Lipitor (Atorvastatin Calcium) 10 Mg Tablet 1 Tab PO DAILY Coricidin Hbp Tablet (Acetaminophen/Chlorpheniramine) 1 Each Tablet 1 Each PO PRN Ferric Citrate 210 Mg Tablet 210 Mg PO TIDWMEALS Alprazolam 0.25 Mg Tablet 1 Tab PO DAILY PRN Plavix (Clopidogrel Bisulfate) 75 Mg Tablet 75 Mg PO DAILY Calcium Acetate 667 Mg Tablet 2 Tab PO TIDWMEALS last dose was this am next dose is wiith supper Tylenol Extra Strength (Acetaminophen) 500 Mg Tablet 500 Mg PO PRN Q12HRS PRN not given in hospital may resume when needed Metolazone 2.5 Mg Tablet 2.5 Mg PO 3X/WEEK Furosemide 40 Mg Tablet 60 Mg PO PRN PRN not given in hospital may take as instructed by provider Potassium Chloride 20 Meq Tab.er.prt 20 Meq PO WEEKLY PRN was not given in hospital Gabapentin 300 Mg Capsule 300 Mg PO DAILY Crestor (Rosuvastatin Calcium) 5 Mg Tablet 5 Mg PO HS was not given in the hospital as requested will resume at home Lantus (Insulin Glargine,Hum.rec.anlog) 100 Unit/1 Ml Vial 50 Unit SQ HS refused to take last night stated she would take her own at home Benadryl Allergy (Diphenhydramine Hcl) 25 Mg Tablet 25 Mg PO PRN not given in the hospital Aspir 81 (Aspirin) 81 Mg Tablet. 81 Mg PO DAILY last dose was this am resume in am Vitals/I & O Vital Sign - Last 24 Hours 11/11/16 11/11/16 11/11/16 11/11/16 11:33 11:40 11:56 12:05 Temp 97.6 97.6 Pulse 92 79 Resp 28 20 B/P (MAP) 218/95 (136) 158/69 (98) Pulse Ox 100 100 99 100 O2 Delivery BiPAP/CPAP BiPAP/CPAP BiPAP/CPAP BiPAP/CPAP 11/11/16 11/11/16 11/11/16 11/11/16 13:03 13:33 14:06 14:10 Pulse 66 64 68 Resp 20 20 20 B/P (MAP) 122/56 (78) 119/57 (77) 120/58 (78) Pulse Ox 100 100 98 98 O2 Delivery BiPAP/CPAP BiPAP/CPAP Nasal Cannula Nasal Cannula O2 Flow Rate 2.0 2.0 11/11/16 11/11/16 11/11/16 11/11/16 15:01 15:03 15:45 15:45 Temp 98.4 98.4 Pulse 64 64 Resp 20 15 B/P (MAP) 119/58 (78) 119/63 (81) Pulse Ox 97 97 98 O2 Delivery Nasal Cannula Nasal Cannula Nasal Cannula O2 Flow Rate 2.0 2.0 2.0 2.0 11/11/16 11/11/16 11/11/16 11/11/16 16:00 17:00 18:00 20:00 Temp 98.4 99.0 98.4 99.0 Pulse 64 60 63 71 Resp 15 18 20 19 B/P (MAP) 122/52 (75) 109/54 (72) 96/53 (67) 121/49 (73) Pulse Ox 98 94 94 98 O2 Delivery Nasal Cannula Nasal Cannula Nasal Cannula Nasal Cannula O2 Flow Rate 2.0 2.0 2.0 2.0 11/11/16 11/11/16 11/11/16 11/12/16 20:00 22:06 22:06 00:00 Temp 97.9 97.9 Pulse 66 66 62 Resp 19 B/P (MAP) 131/54 131/54 102/49 (66) Pulse Ox 98 O2 Delivery Nasal Cannula Nasal Cannula O2 Flow Rate 2.0 2.0 11/12/16 11/12/16 11/12/16 11/12/16 00:50 01:00 01:25 02:00 Pulse 56 86 50 Resp 15 15 12 B/P (MAP) 156/75 (102) 233/101 (145) 106/50 (68) Pulse Ox 98 96 100 96 O2 Delivery Nasal Cannula Nasal Cannula Ventilator Ventilator O2 Flow Rate 2.0 2.0 11/12/16 11/12/16 11/12/16 11/12/16 02:45 03:00 04:00 04:00 Temp 97.1 97.1 Pulse 48 48 Resp 12 12 B/P (MAP) 101/64 (76) 82/43 (56) Pulse Ox 100 96 96 O2 Delivery Ventilator Ventilator Ventilator Mechanical Ventilator 11/12/16 11/12/16 11/12/16 11/12/16 05:00 05:06 06:00 07:00 Pulse 45 45 43 Resp 12 12 12 B/P (MAP) 101/53 (69) 91/42 (58) 104/48 (66) Pulse Ox 96 100 96 100 O2 Delivery Ventilator Ventilator Ventilator Ventilator 11/12/16 11/12/16 11/12/16 11/12/16 08:00 08:00 08:05 09:00 Temp 98.6 98.6 Pulse 46 43 Resp 12 11 B/P (MAP) 104/46 (65) 103/47 (65) Pulse Ox 100 100 100 O2 Delivery Ventilator Mechanical Ventilator Ventilator Ventilator Intake and Output 11/11/16 11/11/16 11/12/16 15:00 23:00 07:00 Intake Total 20 ml Output Total 0 ml 550 ml Balance 20 ml -550 ml MICHELLE DOWD MD Nov 12, 2016 09:58
--- NOTE | 2016-11-12 10:19 | EKG ---
[facility] [address] [place] [address] Test Date: 2016-11-12 Test Time: 01:02:34 Pat Name: DIANE CARLSON Department: Room: 105 1 Gender: F [employer]: : 1950 Requested By: KAILA VALDOVINOS Order Number: [id number] Reading MD: Christian Morrison Measurements Intervals [place] Rate: 80 P: 49 TX: 158 QRS: 52 QRSD: 112 T: 128 QT: 382 QTc: 444 Interpretive Statements SINUS RHYTHM VENTRICULAR PREMATURE COMPLEX(ES) ATRIAL PREMATURE COMPLEX(ES) IVCD Electronically Signed On 11-17-2016 14:25:02 CDT by Christian Morrison
--- NOTE | 2016-11-12 11:14 | PDOC2 ---
CONSULT Date of Consult Date of Consult DATE: 11/12/16 TIME: 11:10 Reason for Consult Reason for Consult: ESRD AND SOB Referring Physician Referring Physician: NOEMÍ Identification/Chief Complaint Chief Complaint SOB Problems: Source Source: Chart review History of Present Illness Reason for Visit: THIS IS A 66 YR OLD ADMITTED WITH SOB. SHE HAS ESRD AND IS ON OP HD ON TTS. WENT TO HD YESTERDAY AND ABOUT 20 MINUTES IN HAD SEVERE SOB. SHE WAS TAKEN OFF AND BROUGHT HERE. PLACED ON BIBAP FOR VOLUME OVERLOAD AND AECOPD. SHE HAD EMERGENT HD LAST NIGHT BUT STILL HAD RESP ARREST AND IN NOW INTUBATED. CURRENTLY UNDERGOING CARDIOLOGY EVAL. HX NOTABLE FOR NON COMPLIANCE WITH HD AND SHE DID SKIP ON THURSDAY. LABS ARE C/W ESRD Past Medical History Cardiovascular: HTN, Valve insufficiency, Other Pulmonary: No pertinent hx CENTRAL NERVOUS SYSTEM: Other GI: No pertinent hx Heme/Onc: Anemia NOS Hepatobiliary: No pertinent hx Psych: Depression Musculoskeletal: low back pain, Osteoarthritis, Other Rheumatologic: No pertinent hx Infectious disease: No pertinent hx Renal/: Chronic renal failure Endocrine: Diabetes, Hyperparathyroidism Past Surgical History Past Surgical History: Arthroscopy, Cholecystectomy, Tonsillectomy, Hysterectomy, Other Family History Family History: Diabetes Social History 1 pack per day ALCOHOL: none Drugs: None Lives: with Family Current Problem List Problem List Problems Medical Problems: (1) Fluid overload Status: Acute (2) Hypoxia Status: Acute (3) Pneumonia Status: Acute (4) SIRS (systemic inflammatory response syndrome) Status: Acute Current Medications Current Medications Current Medications Sodium Chloride 1,000 ml @ 100 mls/hr Q10H IV Last administered on 11/11/16 12:04; Start 11/11/16 at 11:40; Stop 11/11/16 at 21:39; Status DC Iohexol (Omnipaque 300 Mg/ml) 75 ml 1X ONCE IV Last administered on 11/11/16 12:45; Start 11/11/16 at 12:45; Stop 11/11/16 at 12:46; Status DC Info (Do NOT chart on this entry -- for MONITORING) 1 each PRN DAILY PRN MC SEE COMMENTS; Start 11/11/16 at 13:00; Stop 11/13/16 at 12:59 Ondansetron HCl (Zofran) 4 mg PRN Q6HRS PRN IV NAUSEA/VOMITING; Start 11/11/16 at 13:30 Prochlorperazine Edisylate (Compazine) 10 mg PRN Q6HRS PRN IV NAUSEA/VOMITING, 2nd choice; Start 11/11/16 at 13:30 Prochlorperazine (Compazine) 25 mg PRN Q12HR PRN [place] NAUSEA/VOMITING; Start at 13:30 Al Hydroxide/Mg Hydroxide (Mylanta Plus Xs) 30 ml PRN Q3HRS PRN PO HEARTBURN / GAS; Start 11/11/16 at 13:30; Status Cancel Calcium Carbonate/ Glycine (Tums) 500 mg PRN Q3HRS PRN PO UPSET STOMACH; Start 11/11/16 at 13:30 Acetaminophen/ Hydrocodone Bitart (Lortab 5/325) 1 tab PRN Q4HRS PRN PO MILD PAIN; Start 11/11/16 at 13:30 Acetaminophen (Tylenol) 650 mg PRN Q6HRS PRN PO Headaches, Temp > 101.5F; Start 11/11/16 at 13:30 Heparin Sodium (Porcine) (Heparin Sq) 5,000 unit Q8HRS SQ Last administered on 11/11/16 22:05; Start 11/11/16 at 22:00; Stop 11/12/16 at 01:51; Status DC Fentanyl Citrate (Fentanyl 2ml Vial) 50 mcg PRN Q2HR PRN IV pain; Start at 13:30 Albuterol/ Ipratropium (Duoneb) 3 ml RTQID NEB Last administered on 11/12/16 08:05; Start 11/11/16 at 16:00 Nicotine (Nicoderm Cq 21mg) 1 patch PRN DAILY PRN TD SMOKING CESSATION; Start 11/11/16 at 13:30 Guaifenesin (Robitussin Dm) 10 ml PRN Q6HRS PRN PO COUGH; Start 11/11/16 at 13: 30 Acetaminophen (Tylenol) 500 mg PRN Q12HRS PRN PO MILD PAIN, 1st choice; Start 11/11/16 at 13:45 Alprazolam (Xanax) 0.25 mg DAILY PRN PO ANXIETY / AGITATION; Start 11/11/16 at 13:45 Aspirin (Ecotrin) 81 mg DAILYWBKFT PO Last administered on 11/12/16 09:34; Start 11/12/16 at 08:00 Atorvastatin Calcium (Lipitor) 10 mg QHS PO Last administered on 11/11/16 20: 32; Start 11/11/16 at 21:00 Carvedilol (Coreg) 3.125 mg BIDWMEALS PO Last administered on 11/11/16 22:06; Start 11/11/16 at 17:00; Stop 11/12/16 at 10:41; Status DC Cinacalcet (Sensipar) 30 mg QHS PO Last administered on 11/11/16 22:06; Start 11/11/16 at 21:00 Clopidogrel Bisulfate (Plavix) 75 mg DAILYWBKFT PO Last administered on 09:34; Start 11/12/16 at 08:00 Furosemide (Lasix) 60 mg DAILY PRN PO SEE COMMENTS Last administered on 09:34; Start 11/11/16 at 13:45 Lisinopril (Prinivil) 40 mg QTUTHSASU PO Last administered on 11/11/16 22:06; Start 11/11/16 at 16:00 Metolazone (Zaroxolyn) 2.5 mg 3X/WEEK PO ; Start 11/12/16 at 09:00 Potassium Chloride (Klor-Con) 20 meq WEEKLY PRN PO SEE COMMENTS; Start at 13:45 Sertraline HCl (Zoloft) 50 mg QHS PO Last administered on 11/11/16 20:33; Start 11/11/16 at 21:00 Calcium Acetate (Phoslo) 1,334 mg TIDWMEALS PO Last administered on 11/12/16 09:34; Start 11/11/16 at 17:00 Non-Formulary Medication 1 each DAILY PO ; Start 11/12/16 at 09:00; Status UNV Non-Formulary Medication 210 mg TIDWMEALS PO ; Start 11/11/16 at 17:00; Status UNV Gabapentin (Neurontin) 300 mg DAILY PO Last administered on 11/12/16 09:34; Start 11/12/16 at 09:00 Insulin Detemir (Levemir) 50 units QHS SQ Last administered on 8/22/17at 22:04 ; Start 11/11/16 at 21:00 Non-Formulary Medication 5 mg HS PO ; Start 11/11/16 at 21:00; Status UNV Vitamin B Complex/ Vitamin C (Alayna-Oneil) 1 tab DAILY PO Last administered on 09:33; Start 11/12/16 at 09:00 Insulin Aspart (NovoLOG) 0-9 UNITS TIDWMEALS SQ ; Start 11/11/16 at 17:00 Dextrose (Dextrose 50%-Water Syringe) 12.5 gm PRN Q15MIN PRN IV SEE COMMENTS; Start 11/11/16 at 13:45 Sodium Chloride 1,000 ml @ 100 mls/hr Q10H IV Last administered on 11/12/16 06:05; Start 11/11/16 at 13:49; Stop 11/11/16 at 23:48; Status DC Albuterol/ Ipratropium (Duoneb) 3 ml 1X ONCE NEB Last administered on 14:56; Start 11/11/16 at 14:00; Stop 11/11/16 at 14:31; Status DC Methylprednisolone Sodium Succinate (SOLU-Medrol 125MG VIAL) 125 mg 1X ONCE IV Last administered on 11/11/16 14:58; Start 11/11/16 at 14:30; Stop 11/11/16 at 14:32; Status DC Cefepime HCl 1 gm/ Sodium Chloride 50 ml @ 100 mls/hr Q24H IV ; Start 11/12/16 at 14:00 Vancomycin HCl 1.5 gm/Sodium Chloride 500 ml @ 250 mls/hr 1X ONCE IV ; Start 11/11/16 at 14:30; Stop 11/11/16 at 16:29; Status UNV Vancomycin HCl 2 gm/Sodium Chloride 500 ml @ 250 mls/hr ONCE ONCE IV Last administered on 11/11/16 20:30; Start 11/11/16 at 14:30; Stop 11/11/16 at 16:29 ; Status DC Cefepime HCl 1 gm/ Sodium Chloride 50 ml @ 100 mls/hr ONCE ONCE IV Last administered on 11/11/16 15:01; Start 11/11/16 at 14:45; Stop 11/11/16 at 15:14 ; Status DC Amiodarone HCl 150 mg/Dextrose 103 ml @ 618 mls/hr 1X ONCE IV ; Start at 01:30; Stop 11/12/16 at 01:39; Status DC Amiodarone HCl 900 mg/Dextrose 518 ml @ 0 mls/hr CONT PRN IV SEE I/O RECORD Last administered on 11/12/16 06:07; Start 11/12/16 at 01:45; Stop 11/12/16 at 06:07; Status DC Etomidate (Amidate) 20 mg 1X ONCE IV ; Start 11/12/16 at 01:15; Stop 11/12/16 at 01:16; Status DC Rocuronium [place] (Zemuron) 100 mg 1X ONCE IV ; Start 11/12/16 at 01:15; Stop 11/12/16 at 01:16; Status DC Etomidate (Amidate) 20 mg STK-MED ONCE IV ; Start 11/12/16 at 01:03; Stop at 01:04; Status DC Propofol 100 ml @ As Directed STK-MED ONCE IV ; Start 11/12/16 at 01:17; Stop 11/12/16 at 01:18; Status DC Propofol 100 ml @ 0 mls/hr CONT PRN IV SEE I/O RECORD; Start 11/12/16 at 01:30 Rocuronium [place] (Zemuron) 50 mg STK-MED ONCE .ROUTE ; Start 11/12/16 at 01:33 ; Stop 11/12/16 at 01:34; Status DC Heparin Sodium (Porcine) (Heparin Sodium) 4,000 unit 1X ONCE IV Last administered on 11/12/16 02:56; Start 11/12/16 at 02:00; Stop 11/12/16 at 02:01 ; Status DC Heparin Sodium/ Dextrose 500 ml @ 0 mls/hr CONT PRN IV SEE I/O RECORD Last administered on 11/12/16 03:04; Start 11/12/16 at 01:45 Heparin Sodium (Porcine) (Heparin Sodium) 1,750 unit PRN Q6HRS PRN IV FOR UFH LEVEL LESS THAN 0.2; Start 11/12/16 at 01:45 Info (Anti-Coagulation Monitoring By Pharmacy) 1 each PRN DAILY PRN MC SEE COMMENTS Last administered on 11/12/16 09:22; Start 11/12/16 at 02:00 Pantoprazole Sodium (Protonix) 40 mg DAILYAC PO Last administered on 11/12/16t 09:35; Start 11/12/16 at 10:30 Budesonide (Pulmicort) 0.5 mg RTBID NEB ; Start 11/12/16 at 10:30 Amiodarone HCl 900 mg/Dextrose 518 ml @ 33.33 mls/ hr CONT PRN IV SEE I/O RECORD; Start 11/12/16 at 10:30; Stop 11/12/16 at 16:29 Amiodarone HCl 900 mg/Dextrose 518 ml @ 16.67 mls/ hr CONT PRN IV SEE I/O RECORD; Start 11/12/16 at 10:30; Stop 11/13/16 at 04:29; Status UNV Active Scripts Active Lisinopril 40 Mg Tablet 40 Mg PO QTUTHSASU Carvedilol 3.125 Mg Tablet 3.125 Mg PO BIDWMEALS Reported Sertraline Hcl 50 Mg Tablet 50 Mg PO QHS Sensipar (Cinacalcet Hcl) 30 Mg Tablet 1 Tab PO QHS Alayna-Oneil Rx Tablet (Vit B Cmplx 3/Fa/Vit C/Biotin) 1 Each Tablet 1 Each PO DAILY Cranberry Plus Vitamin C Sftgl (Cranberry Conc/Ascorbic Acid) 1 Each Capsule 1 Each PO DAILY Lipitor (Atorvastatin Calcium) 10 Mg Tablet 1 Tab PO DAILY Coricidin Hbp Tablet (Acetaminophen/Chlorpheniramine) 1 Each Tablet 1 Each PO PRN Ferric Citrate 210 Mg Tablet 210 Mg PO TIDWMEALS Alprazolam 0.25 Mg Tablet 1 Tab PO DAILY PRN Plavix (Clopidogrel Bisulfate) 75 Mg Tablet 75 Mg PO DAILY Calcium Acetate 667 Mg Tablet 2 Tab PO TIDWMEALS last dose was this am next dose is wiith supper Tylenol Extra Strength (Acetaminophen) 500 Mg Tablet 500 Mg PO PRN Q12HRS PRN not given in hospital may resume when needed Metolazone 2.5 Mg Tablet 2.5 Mg PO 3X/WEEK Furosemide 40 Mg Tablet 60 Mg PO PRN PRN not given in hospital may take as instructed by provider Potassium Chloride 20 Meq Tab.er.prt 20 Meq PO WEEKLY PRN was not given in hospital Gabapentin 300 Mg Capsule 300 Mg PO DAILY Crestor (Rosuvastatin Calcium) 5 Mg Tablet 5 Mg PO HS was not given in the hospital as requested will resume at home Lantus (Insulin Glargine,Hum.rec.anlog) 100 Unit/1 Ml Vial 50 Unit SQ HS refused to take last night stated she would take her own at home Benadryl Allergy (Diphenhydramine Hcl) 25 Mg Tablet 25 Mg PO PRN not given in the hospital Aspir 81 (Aspirin) 81 Mg Tablet. 81 Mg PO DAILY last dose was this am resume in am Allergies Allergies: Coded Allergies: ciprofloxacin (Verified Allergy, Intermediate, Rash, 01/25/15) morphine (Verified Adverse Reaction, Severe, makes her skin crawl, 01/25/15 ) oxycodone (Verified Adverse Reaction, Severe, makes her skin crawl, ) adhesive (Verified Adverse Reaction, Intermediate, blisters, 01/25/15) "use paper tape" ROS Review of System UNABLE TO OBTAIN Physical Exam General: No acute distress HEENT: Atraumatic, Mucous membr. moist/pink Lungs: Clear to auscultation Heart: Regular rate Abdomen: Normal bowel sounds, Soft, No tenderness Skin: No breakdown Neuro: Other (SEDATED) Psych/Mental Status: Other (SEDATED) MUSCULOSKELETAL: No deformity, No swelling Vitals VITALS Vital Signs Date Time Temp Pulse Resp B/P (MAP) Pulse Ox O2 Delivery O2 Flow Rate FiO2 11/12/16 11:00 43 11 108/48 (68) 100 Ventilator 11/12/16 08:00 98.6 98.6 11/12/16 01:00 2.0 Labs Labs Laboratory Tests Test 11/11/16 11:28 11/11/16 11:40 11/11/16 11:45 11/11/16 11:48 White Blood Count 22.1 x10^3/uL (4.0-11.0) Red Blood Count 3.11 x10^6/uL (3.50-5.40) Hemoglobin 9.1 g/dL (12.0-15.5) Hematocrit 29.2 % (36.0-47.0) Mean Corpuscular Volume 94 fL (79-100) Mean Corpuscular Hemoglobin 29 pg (25-35) Mean Corpuscular Hemoglobin Concent 31 g/dL (31-37) Red Cell Distribution Width 16.7 % (11.5-14.5) Platelet Count 284 x10^3/uL (140-400) Neutrophils (%) (Auto) 71 % (31-73) Lymphocytes (%) (Auto) 19 % (24-48) Monocytes (%) (Auto) 6 % (0-9) Eosinophils (%) (Auto) 2 % (0-3) Basophils (%) (Auto) 1 % (0-3) Neutrophils # (Auto) 15.7 x10^3uL (1.8-7.7) Lymphocytes # (Auto) 4.2 x10^3/uL (1.0-4.8) Monocytes # (Auto) 1.4 x10^3/uL (0.0-1.1) Eosinophils # (Auto) 0.5 x10^3/uL (0.0-0.7) Basophils # (Auto) 0.3 x10^3/uL (0.0-0.2) Segmented Neutrophils % 66 % (35-66) Band Neutrophils % 3 % (0-9) Lymphocytes % 25 % (24-48) Monocytes % 5 % (0-10) Myelocytes % 1 % (0-0) Toxic Granulation Slight Platelet Estimate Adequate (ADEQUATE) Polychromasia Slight Sodium Level 136 mmol/L (136-145) Potassium Level 4.4 mmol/L (3.5-5.1) Chloride Level 102 mmol/L (98-107) Carbon Dioxide Level 25 mmol/L (21-32) Anion Gap 9 (6-14) 15 mmol/L (6-14) Blood Urea Nitrogen 56 mg/dL (7-20) Creatinine 7.1 mg/dL (0.6-1.0) Estimated GFR (Cockcroft-Gault) 5.8 BUN/Creatinine Ratio 8 (6-20) Glucose Level 228 mg/dL (70-99) 217 mg/dL (70-99) Lactic Acid Level 2.2 mmol/L (0.4-2.0) Calcium Level 8.2 mg/dL (8.5-10.1) Total Bilirubin 0.3 mg/dL (0.2-1.0) Aspartate Amino Transf (AST/SGOT) 14 U/L (15-37) Alanine Aminotransferase (ALT/SGPT) 15 U/L (14-59) Alkaline Phosphatase 165 U/L (46-116) Creatine Kinase 57 U/L (26-192) Creatine Kinase MB (Mass) 1.1 ng/mL (0.0-3.6) Creatine Kinase MB Relative Index 1.9 % (0-4) Troponin I Quantitative 0.077 ng/mL (0.000-0.055) ZG-Fbg-A-Type Natriuretic Peptide > 69352 pg/mL (0-124) Total Protein 6.4 g/dL (6.4-8.2) Albumin 2.4 g/dL (3.4-5.0) Albumin/Globulin Ratio 0.6 (1.0-1.7) Thyroid Stimulating Hormone (TSH) 7.641 uIU/mL (0.358-3.74) O2 Saturation 98 % (92-99) Arterial Blood pH 7.28 (7.35-7.45) Arterial Blood pCO2 at Patient Temp 41 mmHg (35-46) Arterial Blood pO2 at Patient Temp 156 mmHg (65-108) Arterial Blood HCO3 19 mmol/L (21-28) Arterial Blood Base Excess -7 mmol/L (-3-3) FiO2 80 Bedside Troponin I 0.11 ng/ml (<0.08) Bedside Hemoglobin 9.2 g/dL (12-15) Bedside Hematocrit 27 % (36-40) Bedside Sodium 136 mmol/L (135-145) Bedside Potassium 4.4 mmol/L (3.5-5.0) Bedside Chloride 103 mmol/L (98-110) Bedside Total CO2 23 mmol/L (23-32) Bedside Blood Urea Nitrogen 55 mg/dL (8-26) Bedside Creatinine 7.6 mg/dL (0.5-1.4) Bedside Ionized Calcium (Jay) 1.04 mmol/L (1.13-1.32) Test 11/11/16 16:00 11/11/16 17:49 11/11/16 17:50 11/11/16 22:02 Nasal Screen MRSA (PCR) Negative (Negative) Glucose (Fingerstick) 147 mg/dL (70-99) 296 mg/dL (70-99) Sodium Level 137 mmol/L (136-145) Potassium Level 4.1 mmol/L (3.5-5.1) Chloride Level 99 mmol/L (98-107) Carbon Dioxide Level 29 mmol/L (21-32) Anion Gap 9 (6-14) Blood Urea Nitrogen 25 mg/dL (7-20) Creatinine 3.3 mg/dL (0.6-1.0) Estimated GFR (Cockcroft-Gault) 14.0 Glucose Level 160 mg/dL (70-99) Calcium Level 8.4 mg/dL (8.5-10.1) Test 11/12/16 00:55 11/12/16 00:59 11/12/16 03:04 11/12/16 04:50 Glucose (Fingerstick) 284 mg/dL (70-99) White Blood Count 10.6 x10^3/uL (4.0-11.0) 8.7 x10^3/uL (4.0-11.0) Red Blood Count 2.91 x10^6/uL (3.50-5.40) 2.35 x10^6/uL (3.50-5.40) Hemoglobin 8.7 g/dL (12.0-15.5) 7.1 g/dL (12.0-15.5) Hematocrit 26.6 % (36.0-47.0) 21.2 % (36.0-47.0) Mean Corpuscular Volume 91 fL (79-100) 90 fL (79-100) Mean Corpuscular Hemoglobin 30 pg (25-35) 30 pg (25-35) Mean Corpuscular Hemoglobin Concent 33 g/dL (31-37) 34 g/dL (31-37) Red Cell Distribution Width 16.1 % (11.5-14.5) 15.7 % (11.5-14.5) Platelet Count 184 x10^3/uL (140-400) 144 x10^3/uL (140-400) Neutrophils (%) (Auto) 86 % (31-73) 81 % (31-73) Lymphocytes (%) (Auto) 12 % (24-48) 10 % (24-48) Monocytes (%) (Auto) 2 % (0-9) 8 % (0-9) Eosinophils (%) (Auto) 0 % (0-3) 0 % (0-3) Basophils (%) (Auto) 1 % (0-3) 1 % (0-3) Neutrophils # (Auto) 9.1 x10^3uL (1.8-7.7) 7.1 x10^3uL (1.8-7.7) Lymphocytes # (Auto) 1.3 x10^3/uL (1.0-4.8) 0.9 x10^3/uL (1.0-4.8) Monocytes # (Auto) 0.2 x10^3/uL (0.0-1.1) 0.7 x10^3/uL (0.0-1.1) Eosinophils # (Auto) 0.0 x10^3/uL (0.0-0.7) 0.0 x10^3/uL (0.0-0.7) Basophils # (Auto) 0.0 x10^3/uL (0.0-0.2) 0.0 x10^3/uL (0.0-0.2) Sodium Level 136 mmol/L (136-145) 138 mmol/L (136-145) Potassium Level 4.4 mmol/L (3.5-5.1) 4.1 mmol/L (3.5-5.1) Chloride Level 100 mmol/L (98-107) 102 mmol/L (98-107) Carbon Dioxide Level 27 mmol/L (21-32) 28 mmol/L (21-32) Anion Gap 9 (6-14) 8 (6-14) Blood Urea Nitrogen 33 mg/dL (7-20) 36 mg/dL (7-20) Creatinine 5.0 mg/dL (0.6-1.0) 5.0 mg/dL (0.6-1.0) Estimated GFR (Cockcroft-Gault) 8.7 8.7 BUN/Creatinine Ratio 7 (6-20) Glucose Level 293 mg/dL (70-99) 223 mg/dL (70-99) Calcium Level 8.3 mg/dL (8.5-10.1) 8.4 mg/dL (8.5-10.1) Phosphorus Level 4.4 mg/dL (2.6-4.7) Magnesium Level 2.0 mg/dL (1.8-2.4) Total Bilirubin 0.3 mg/dL (0.2-1.0) Aspartate Amino Transf (AST/SGOT) 16 U/L (15-37) Alanine Aminotransferase (ALT/SGPT) 18 U/L (14-59) Alkaline Phosphatase 140 U/L (46-116) Total Protein 5.7 g/dL (6.4-8.2) Albumin 2.1 g/dL (3.4-5.0) Albumin/Globulin Ratio 0.6 (1.0-1.7) O2 Saturation 98 % (92-99) Arterial Blood pH 7.53 (7.35-7.45) Arterial Blood pCO2 at Patient Temp 30 mmHg (35-46) Arterial Blood pO2 at Patient Temp 101 mmHg (65-108) Arterial Blood HCO3 25 mmol/L (21-28) Arterial Blood Base Excess 2 mmol/L (-3-3) FiO2 40 Prothrombin Time 15.6 SEC (11.7-14.0) Prothromb Time International Ratio 1.3 (0.8-1.1) Lactic Acid Level 2.0 mmol/L (0.4-2.0) Troponin I Quantitative 0.127 ng/mL (0.000-0.055) Test 11/12/16 08:00 11/12/16 08:38 11/12/16 09:05 O2 Saturation 94 % (92-99) Arterial Blood pH 7.46 (7.35-7.45) Arterial Blood pCO2 at Patient Temp 37 mmHg (35-46) Arterial Blood pO2 at Patient Temp 71 mmHg (65-108) Arterial Blood HCO3 26 mmol/L (21-28) Arterial Blood Base Excess 2 mmol/L (-3-3) FiO2 40 Glucose (Fingerstick) 117 mg/dL (70-99) Heparin Anti-Xa Act, Unfractionated 0.24 IU/mL (0.30-0.70) Laboratory Tests Test 11/11/16 11:28 11/11/16 11:40 11/11/16 11:45 11/11/16 11:48 White Blood Count 22.1 x10^3/uL (4.0-11.0) Red Blood Count 3.11 x10^6/uL (3.50-5.40) Hemoglobin 9.1 g/dL (12.0-15.5) Hematocrit 29.2 % (36.0-47.0) Mean Corpuscular Volume 94 fL (79-100) Mean Corpuscular Hemoglobin 29 pg (25-35) Mean Corpuscular Hemoglobin Concent 31 g/dL (31-37) Red Cell Distribution Width 16.7 % (11.5-14.5) Platelet Count 284 x10^3/uL (140-400) Neutrophils (%) (Auto) 71 % (31-73) Lymphocytes (%) (Auto) 19 % (24-48) Monocytes (%) (Auto) 6 % (0-9) Eosinophils (%) (Auto) 2 % (0-3) Basophils (%) (Auto) 1 % (0-3) Neutrophils # (Auto) 15.7 x10^3uL (1.8-7.7) Lymphocytes # (Auto) 4.2 x10^3/uL (1.0-4.8) Monocytes # (Auto) 1.4 x10^3/uL (0.0-1.1) Eosinophils # (Auto) 0.5 x10^3/uL (0.0-0.7) Basophils # (Auto) 0.3 x10^3/uL (0.0-0.2) Segmented Neutrophils % 66 % (35-66) Band Neutrophils % 3 % (0-9) Lymphocytes % 25 % (24-48) Monocytes % 5 % (0-10) Myelocytes % 1 % (0-0) Toxic Granulation Slight Platelet Estimate Adequate (ADEQUATE) Polychromasia Slight Sodium Level 136 mmol/L (136-145) Potassium Level 4.4 mmol/L (3.5-5.1) Chloride Level 102 mmol/L (98-107) Carbon Dioxide Level 25 mmol/L (21-32) Anion Gap 9 (6-14) 15 mmol/L (6-14) Blood Urea Nitrogen 56 mg/dL (7-20) Creatinine 7.1 mg/dL (0.6-1.0) Estimated GFR (Cockcroft-Gault) 5.8 BUN/Creatinine Ratio 8 (6-20) Glucose Level 228 mg/dL (70-99) 217 mg/dL (70-99) Lactic Acid Level 2.2 mmol/L (0.4-2.0) Calcium Level 8.2 mg/dL (8.5-10.1) Total Bilirubin 0.3 mg/dL (0.2-1.0) Aspartate Amino Transf (AST/SGOT) 14 U/L (15-37) Alanine Aminotransferase (ALT/SGPT) 15 U/L (14-59) Alkaline Phosphatase 165 U/L (46-116) Creatine Kinase 57 U/L (26-192) Creatine Kinase MB (Mass) 1.1 ng/mL (0.0-3.6) Creatine Kinase MB Relative Index 1.9 % (0-4) Troponin I Quantitative 0.077 ng/mL (0.000-0.055) WW-Hfd-P-Type Natriuretic Peptide > 39547 pg/mL (0-124) Total Protein 6.4 g/dL (6.4-8.2) Albumin 2.4 g/dL (3.4-5.0) Albumin/Globulin Ratio 0.6 (1.0-1.7) Thyroid Stimulating Hormone (TSH) 7.641 uIU/mL (0.358-3.74) O2 Saturation 98 % (92-99) Arterial Blood pH 7.28 (7.35-7.45) Arterial Blood pCO2 at Patient Temp 41 mmHg (35-46) Arterial Blood pO2 at Patient Temp 156 mmHg (65-108) Arterial Blood HCO3 19 mmol/L (21-28) Arterial Blood Base Excess -7 mmol/L (-3-3) FiO2 80 Bedside Troponin I 0.11 ng/ml (<0.08) Bedside Hemoglobin 9.2 g/dL (12-15) Bedside Hematocrit 27 % (36-40) Bedside Sodium 136 mmol/L (135-145) Bedside Potassium 4.4 mmol/L (3.5-5.0) Bedside Chloride 103 mmol/L (98-110) Bedside Total CO2 23 mmol/L (23-32) Bedside Blood Urea Nitrogen 55 mg/dL (8-26) Bedside Creatinine 7.6 mg/dL (0.5-1.4) Bedside Ionized Calcium (Jay) 1.04 mmol/L (1.13-1.32) Test 11/11/16 16:00 11/11/16 17:49 11/11/16 17:50 11/11/16 22:02 Nasal Screen MRSA (PCR) Negative (Negative) Glucose (Fingerstick) 147 mg/dL (70-99) 296 mg/dL (70-99) Sodium Level 137 mmol/L (136-145) Potassium Level 4.1 mmol/L (3.5-5.1) Chloride Level 99 mmol/L (98-107) Carbon Dioxide Level 29 mmol/L (21-32) Anion Gap 9 (6-14) Blood Urea Nitrogen 25 mg/dL (7-20) Creatinine 3.3 mg/dL (0.6-1.0) Estimated GFR (Cockcroft-Gault) 14.0 Glucose Level 160 mg/dL (70-99) Calcium Level 8.4 mg/dL (8.5-10.1) Test 11/12/16 00:55 11/12/16 00:59 11/12/16 03:04 11/12/16 04:50 Glucose (Fingerstick) 284 mg/dL (70-99) White Blood Count 10.6 x10^3/uL (4.0-11.0) 8.7 x10^3/uL (4.0-11.0) Red Blood Count 2.91 x10^6/uL (3.50-5.40) 2.35 x10^6/uL (3.50-5.40) Hemoglobin 8.7 g/dL (12.0-15.5) 7.1 g/dL (12.0-15.5) Hematocrit 26.6 % (36.0-47.0) 21.2 % (36.0-47.0) Mean Corpuscular Volume 91 fL (79-100) 90 fL (79-100) Mean Corpuscular Hemoglobin 30 pg (25-35) 30 pg (25-35) Mean Corpuscular Hemoglobin Concent 33 g/dL (31-37) 34 g/dL (31-37) Red Cell Distribution Width 16.1 % (11.5-14.5) 15.7 % (11.5-14.5) Platelet Count 184 x10^3/uL (140-400) 144 x10^3/uL (140-400) Neutrophils (%) (Auto) 86 % (31-73) 81 % (31-73) Lymphocytes (%) (Auto) 12 % (24-48) 10 % (24-48) Monocytes (%) (Auto) 2 % (0-9) 8 % (0-9) Eosinophils (%) (Auto) 0 % (0-3) 0 % (0-3) Basophils (%) (Auto) 1 % (0-3) 1 % (0-3) Neutrophils # (Auto) 9.1 x10^3uL (1.8-7.7) 7.1 x10^3uL (1.8-7.7) Lymphocytes # (Auto) 1.3 x10^3/uL (1.0-4.8) 0.9 x10^3/uL (1.0-4.8) Monocytes # (Auto) 0.2 x10^3/uL (0.0-1.1) 0.7 x10^3/uL (0.0-1.1) Eosinophils # (Auto) 0.0 x10^3/uL (0.0-0.7) 0.0 x10^3/uL (0.0-0.7) Basophils # (Auto) 0.0 x10^3/uL (0.0-0.2) 0.0 x10^3/uL (0.0-0.2) Sodium Level 136 mmol/L (136-145) 138 mmol/L (136-145) Potassium Level 4.4 mmol/L (3.5-5.1) 4.1 mmol/L (3.5-5.1) Chloride Level 100 mmol/L (98-107) 102 mmol/L (98-107) Carbon Dioxide Level 27 mmol/L (21-32) 28 mmol/L (21-32) Anion Gap 9 (6-14) 8 (6-14) Blood Urea Nitrogen 33 mg/dL (7-20) 36 mg/dL (7-20) Creatinine 5.0 mg/dL (0.6-1.0) 5.0 mg/dL (0.6-1.0) Estimated GFR (Cockcroft-Gault) 8.7 8.7 BUN/Creatinine Ratio 7 (6-20) Glucose Level 293 mg/dL (70-99) 223 mg/dL (70-99) Calcium Level 8.3 mg/dL (8.5-10.1) 8.4 mg/dL (8.5-10.1) Phosphorus Level 4.4 mg/dL (2.6-4.7) Magnesium Level 2.0 mg/dL (1.8-2.4) Total Bilirubin 0.3 mg/dL (0.2-1.0) Aspartate Amino Transf (AST/SGOT) 16 U/L (15-37) Alanine Aminotransferase (ALT/SGPT) 18 U/L (14-59) Alkaline Phosphatase 140 U/L (46-116) Total Protein 5.7 g/dL (6.4-8.2) Albumin 2.1 g/dL (3.4-5.0) Albumin/Globulin Ratio 0.6 (1.0-1.7) O2 Saturation 98 % (92-99) Arterial Blood pH 7.53 (7.35-7.45) Arterial Blood pCO2 at Patient Temp 30 mmHg (35-46) Arterial Blood pO2 at Patient Temp 101 mmHg (65-108) Arterial Blood HCO3 25 mmol/L (21-28) Arterial Blood Base Excess 2 mmol/L (-3-3) FiO2 40 Prothrombin Time 15.6 SEC (11.7-14.0) Prothromb Time International Ratio 1.3 (0.8-1.1) Lactic Acid Level 2.0 mmol/L (0.4-2.0) Troponin I Quantitative 0.127 ng/mL (0.000-0.055) Test 11/12/16 08:00 11/12/16 08:38 11/12/16 09:05 O2 Saturation 94 % (92-99) Arterial Blood pH 7.46 (7.35-7.45) Arterial Blood pCO2 at Patient Temp 37 mmHg (35-46) Arterial Blood pO2 at Patient Temp 71 mmHg (65-108) Arterial Blood HCO3 26 mmol/L (21-28) Arterial Blood Base Excess 2 mmol/L (-3-3) FiO2 40 Glucose (Fingerstick) 117 mg/dL (70-99) Heparin Anti-Xa Act, Unfractionated 0.24 IU/mL (0.30-0.70) Assessment/Plan Assessment/Plan IMP ANEMIA ESRD RESP FAILURE AECOPD HTN DM II NON COMPLIANCE WITH HD TOBACCOISM PLAN HD EMERGENTLY YESTERDAY PULM TX PRBC ARANESP NEXT HD TOMORROW CARDIOLOGY EVAL START SUZY GRIMALDO MD Nov 12, 2016 11:14
[2016-11-12 11:43] LABS: CKMB MASS 1.3 ng/mL (0.0-3.6)
[2016-11-12] MEDS: BUDESONIDE 0.5 MG/2 ML NEBU. NEB SCH ×2 (11:44→19:37)
--- NOTE | 2016-11-12 12:47 | EKG ---
[facility] [address] [place] [id number] Test Date: 2016-11-12 Test Time: 05:40:13 Pat Name: DIANE CARLSON Department: Room: 105 1 Gender: F Stock Checker: MAKAYLA : 1950 Requested By: MICHELLE DOWD Order Number: [id number] Reading MD: Christian Morrison Measurements Intervals [place] Rate: 44 P: 90 [place]: 176 QRS: 48 QRSD: 108 T: 27 QT: 584 QTc: 499 Interpretive Statements SINUS BRADYCARDIA QRS(T) CONTOUR ABNORMALITY CONSISTENT WITH ANTEROSEPTAL INFARCT Electronically Signed On 11-17-2016 14:26:05 CDT by Christian Morrison
[2016-11-12] MEDS ORDERED: hydrALAZINE 20 MG/ML VIAL. IVP PRN (13:15)
[2016-11-12] MEDS: CEFEPIME HCL 1 GM in IV NORMAL SALINE 50ML 50 ML IV SCH (13:45)
[2016-11-12 16:11] LABS: HCO3 ABG 27 mmol/L (21-28); PCO2 ABG 47 mmHg (35-46); PH ABG 7.38 (7.35-7.45); PO2 ABG 160 mmHg (65-108); SAT O2 ABG 99 % (92-99)
[2016-11-12 16:13] LABS: FIO2 ABG 40
[2016-11-12] MEDS ORDERED: DARBEPOETIN ALFA 60 MCG/0.3 ML DISP.SYRIN. SQ SCH (21:00)
[2016-11-12] MEDS: INSULIN DETEMIR 300 UNITS/3 ML INSULN.PEN. SQ SCH (21:00)
[2016-11-12] MEDS: CINACALCET HCL 30 MG TABLET PO SCH (22:13)
[2016-11-12] MEDS: ATORVASTATIN CALCIUM 10 MG TABLET. PO SCH (22:13)
[2016-11-12] MEDS: SERTRALINE 50 MG TABLET. PO SCH (22:14)
[2016-11-13] VITALS (18 sets, daily range): BP systolic 84–138; BP diastolic 39–81
[2016-11-13 01:52] LABS: HEMATOCRIT 28.2 % (36.0-47.0); HEMOGLOBIN 9.2 g/dL (12.0-15.5); RED BLOOD COUNT 3.11 x10^6/uL (3.50-5.40); RED CELL DISTRIBUTION WIDTH 16.4 % (11.5-14.5); WHITE BLOOD COUNT 10.5 x10^3/uL (4.0-11.0)
[2016-11-13] MEDS: HEPARIN 25,000UTS/500ML PREMIX 500 ML IV PRN (04:00)
[2016-11-13 06:17] LABS: BASO # 0.1 x10^3/uL (0.0-0.2); BASO % 1 % (0-3); EOS % 1 % (0-3); HEMATOCRIT 26.5 % (36.0-47.0); HEMOGLOBIN 8.8 g/dL (12.0-15.5); LYMPH # 2.6 x10^3/uL (1.0-4.8); LYMPH % 25 % (24-48); MEAN CORPUSCULAR HEMOGLOBIN 30 pg (25-35); MEAN CORPUSCULAR HGB CONC 33 g/dL (31-37); MEAN CORPUSCULAR VOLUME 90 fL (79-100); MONO % 9 % (0-9); NEUT % 64 % (31-73); PLATELET COUNT 149 x10^3/uL (140-400); RED BLOOD COUNT 2.95 x10^6/uL (3.50-5.40); RED CELL DISTRIBUTION WIDTH 16.6 % (11.5-14.5); WHITE BLOOD COUNT 10.4 x10^3/uL (4.0-11.0)
[2016-11-13 06:34] LABS: CREATININE 5.5 mg/dL (0.6-1.0); GFR 7.8; POTASSIUM 4.4 mmol/L (3.5-5.1)
[2016-11-13] MEDS: IPRATRPIUM/ALBUTEROL 0.5/2.5MG 3 ML NEBU. NEB SCH ×4 (07:55→20:12)
[2016-11-13] MEDS: BUDESONIDE 0.5 MG/2 ML NEBU. NEB SCH ×2 (07:55→20:12)
[2016-11-13] MEDS: INSULIN ASPART 300 UNITS/3 ML INSULN.PEN SQ SCH ×3 (08:00→17:00)
[2016-11-13] MEDS: ANTI-COAG MONITOR BY PHARMACY. MC PRN (08:04)
--- NOTE | 2016-11-13 09:09 | PDOC ---
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 tobaccoism, History of Present Illness History of Present Illness Extubated after 1 day intubation only Looks very good SOme wheezing on inhaled CS - PUlmo on board VS ok BUt trop spike, recent LHC 2 weeks ago Denies CP SBP 120, HR 70s NO choking on liquids HEparin gtt running PLAN: OK to t.o ICU Follow cards and pulmo recs 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 Vitals Vitals Vital Signs Date Time Temp Pulse Resp B/P (MAP) Pulse Ox O2 Delivery O2 Flow Rate FiO2 11/13/16 07:55 99 Nasal Cannula 1.0 11/13/16 07:00 54 15 112/47 (68) 11/13/16 04:00 98.6 98.6 Physical Exam General: No acute distress Heart: Regular rate Lungs: Clear Abdomen: Normal bowel sounds, Soft, No tenderness Extremities: No cyanosis, Other (1+ bilateral LE pitting edema) Skin: No breakdown Labs LABS Laboratory Tests Test 11/12/16 12:13 11/12/16 14:53 11/12/16 16:05 11/12/16 16:17 Glucose (Fingerstick) 104 mg/dL (70-99) 95 mg/dL (70-99) Heparin Anti-Xa Act, Unfractionated 0.22 IU/mL (0.30-0.70) O2 Saturation 99 % (92-99) Arterial Blood pH 7.38 (7.35-7.45) Arterial Blood pCO2 at Patient Temp 47 mmHg (35-46) Arterial Blood pO2 at Patient Temp 160 mmHg (65-108) Arterial Blood HCO3 27 mmol/L (21-28) Arterial Blood Base Excess 1 mmol/L (-3-3) FiO2 40 Test 11/12/16 22:16 11/13/16 01:10 11/13/16 06:05 Glucose (Fingerstick) 79 mg/dL (70-99) White Blood Count 10.5 x10^3/uL (4.0-11.0) 10.4 x10^3/uL (4.0-11.0) Red Blood Count 3.11 x10^6/uL (3.50-5.40) 2.95 x10^6/uL (3.50-5.40) Hemoglobin 9.2 g/dL (12.0-15.5) 8.8 g/dL (12.0-15.5) Hematocrit 28.2 % (36.0-47.0) 26.5 % (36.0-47.0) Mean Corpuscular Volume 91 fL (79-100) 90 fL (79-100) Mean Corpuscular Hemoglobin 30 pg (25-35) 30 pg (25-35) Mean Corpuscular Hemoglobin Concent 33 g/dL (31-37) 33 g/dL (31-37) Red Cell Distribution Width 16.4 % (11.5-14.5) 16.6 % (11.5-14.5) Platelet Count 155 x10^3/uL (140-400) 149 x10^3/uL (140-400) Heparin Anti-Xa Act, Unfractionated 0.18 IU/mL (0.30-0.70) Neutrophils (%) (Auto) 64 % (31-73) Lymphocytes (%) (Auto) 25 % (24-48) Monocytes (%) (Auto) 9 % (0-9) Eosinophils (%) (Auto) 1 % (0-3) Basophils (%) (Auto) 1 % (0-3) Neutrophils # (Auto) 6.7 x10^3uL (1.8-7.7) Lymphocytes # (Auto) 2.6 x10^3/uL (1.0-4.8) Monocytes # (Auto) 0.9 x10^3/uL (0.0-1.1) Eosinophils # (Auto) 0.1 x10^3/uL (0.0-0.7) Basophils # (Auto) 0.1 x10^3/uL (0.0-0.2) Sodium Level 136 mmol/L (136-145) Potassium Level 4.4 mmol/L (3.5-5.1) Chloride Level 100 mmol/L (98-107) Carbon Dioxide Level 25 mmol/L (21-32) Anion Gap 11 (6-14) Blood Urea Nitrogen 41 mg/dL (7-20) Creatinine 5.5 mg/dL (0.6-1.0) Estimated GFR (Cockcroft-Gault) 7.8 Glucose Level 81 mg/dL (70-99) Calcium Level 8.0 mg/dL (8.5-10.1) Review of Systems Review of Systems some coughing but none worse, all else is neg Assessment and Plan Assessmemt and Plan Problems Medical Problems: (1) Fluid overload Status: Acute (2) Hypoxia Status: Acute (3) Pneumonia Status: Acute (4) SIRS (systemic inflammatory response syndrome) Status: Acute Problems: Comment Review of Relevant I have reviewed the following items ashley (where applicable) has been applied. Labs Laboratory Tests Test 11/11/16 11:28 11/11/16 11:40 11/11/16 11:45 11/11/16 11:48 White Blood Count 22.1 x10^3/uL (4.0-11.0) Red Blood Count 3.11 x10^6/uL (3.50-5.40) Hemoglobin 9.1 g/dL (12.0-15.5) Hematocrit 29.2 % (36.0-47.0) Mean Corpuscular Volume 94 fL (79-100) Mean Corpuscular Hemoglobin 29 pg (25-35) Mean Corpuscular Hemoglobin Concent 31 g/dL (31-37) Red Cell Distribution Width 16.7 % (11.5-14.5) Platelet Count 284 x10^3/uL (140-400) Neutrophils (%) (Auto) 71 % (31-73) Lymphocytes (%) (Auto) 19 % (24-48) Monocytes (%) (Auto) 6 % (0-9) Eosinophils (%) (Auto) 2 % (0-3) Basophils (%) (Auto) 1 % (0-3) Neutrophils # (Auto) 15.7 x10^3uL (1.8-7.7) Lymphocytes # (Auto) 4.2 x10^3/uL (1.0-4.8) Monocytes # (Auto) 1.4 x10^3/uL (0.0-1.1) Eosinophils # (Auto) 0.5 x10^3/uL (0.0-0.7) Basophils # (Auto) 0.3 x10^3/uL (0.0-0.2) Segmented Neutrophils % 66 % (35-66) Band Neutrophils % 3 % (0-9) Lymphocytes % 25 % (24-48) Monocytes % 5 % (0-10) Myelocytes % 1 % (0-0) Toxic Granulation Slight Platelet Estimate Adequate (ADEQUATE) Polychromasia Slight Sodium Level 136 mmol/L (136-145) Potassium Level 4.4 mmol/L (3.5-5.1) Chloride Level 102 mmol/L (98-107) Carbon Dioxide Level 25 mmol/L (21-32) Anion Gap 9 (6-14) 15 mmol/L (6-14) Blood Urea Nitrogen 56 mg/dL (7-20) Creatinine 7.1 mg/dL (0.6-1.0) Estimated GFR (Cockcroft-Gault) 5.8 BUN/Creatinine Ratio 8 (6-20) Glucose Level 228 mg/dL (70-99) 217 mg/dL (70-99) Lactic Acid Level 2.2 mmol/L (0.4-2.0) Calcium Level 8.2 mg/dL (8.5-10.1) Total Bilirubin 0.3 mg/dL (0.2-1.0) Aspartate Amino Transf (AST/SGOT) 14 U/L (15-37) Alanine Aminotransferase (ALT/SGPT) 15 U/L (14-59) Alkaline Phosphatase 165 U/L (46-116) Creatine Kinase 57 U/L (26-192) Creatine Kinase MB (Mass) 1.1 ng/mL (0.0-3.6) Creatine Kinase MB Relative Index 1.9 % (0-4) Troponin I Quantitative 0.077 ng/mL (0.000-0.055) RZ-Hzb-X-Type Natriuretic Peptide > 21032 pg/mL (0-124) Total Protein 6.4 g/dL (6.4-8.2) Albumin 2.4 g/dL (3.4-5.0) Albumin/Globulin Ratio 0.6 (1.0-1.7) Thyroid Stimulating Hormone (TSH) 7.641 uIU/mL (0.358-3.74) O2 Saturation 98 % (92-99) Arterial Blood pH 7.28 (7.35-7.45) Arterial Blood pCO2 at Patient Temp 41 mmHg (35-46) Arterial Blood pO2 at Patient Temp 156 mmHg (65-108) Arterial Blood HCO3 19 mmol/L (21-28) Arterial Blood Base Excess -7 mmol/L (-3-3) FiO2 80 Bedside Troponin I 0.11 ng/ml (<0.08) Bedside Hemoglobin 9.2 g/dL (12-15) Bedside Hematocrit 27 % (36-40) Bedside Sodium 136 mmol/L (135-145) Bedside Potassium 4.4 mmol/L (3.5-5.0) Bedside Chloride 103 mmol/L (98-110) Bedside Total CO2 23 mmol/L (23-32) Bedside Blood Urea Nitrogen 55 mg/dL (8-26) Bedside Creatinine 7.6 mg/dL (0.5-1.4) Bedside Ionized Calcium (Jay) 1.04 mmol/L (1.13-1.32) Test 11/11/16 16:00 11/11/16 17:49 11/11/16 17:50 11/11/16 22:02 Nasal Screen MRSA (PCR) Negative (Negative) Glucose (Fingerstick) 147 mg/dL (70-99) 296 mg/dL (70-99) Sodium Level 137 mmol/L (136-145) Potassium Level 4.1 mmol/L (3.5-5.1) Chloride Level 99 mmol/L (98-107) Carbon Dioxide Level 29 mmol/L (21-32) Anion Gap 9 (6-14) Blood Urea Nitrogen 25 mg/dL (7-20) Creatinine 3.3 mg/dL (0.6-1.0) Estimated GFR (Cockcroft-Gault) 14.0 Glucose Level 160 mg/dL (70-99) Calcium Level 8.4 mg/dL (8.5-10.1) Test 11/12/16 00:55 11/12/16 00:59 11/12/16 03:04 11/12/16 04:50 Glucose (Fingerstick) 284 mg/dL (70-99) White Blood Count 10.6 x10^3/uL (4.0-11.0) 8.7 x10^3/uL (4.0-11.0) Red Blood Count 2.91 x10^6/uL (3.50-5.40) 2.35 x10^6/uL (3.50-5.40) Hemoglobin 8.7 g/dL (12.0-15.5) 7.1 g/dL (12.0-15.5) Hematocrit 26.6 % (36.0-47.0) 21.2 % (36.0-47.0) Mean Corpuscular Volume 91 fL (79-100) 90 fL (79-100) Mean Corpuscular Hemoglobin 30 pg (25-35) 30 pg (25-35) Mean Corpuscular Hemoglobin Concent 33 g/dL (31-37) 34 g/dL (31-37) Red Cell Distribution Width 16.1 % (11.5-14.5) 15.7 % (11.5-14.5) Platelet Count 184 x10^3/uL (140-400) 144 x10^3/uL (140-400) Neutrophils (%) (Auto) 86 % (31-73) 81 % (31-73) Lymphocytes (%) (Auto) 12 % (24-48) 10 % (24-48) Monocytes (%) (Auto) 2 % (0-9) 8 % (0-9) Eosinophils (%) (Auto) 0 % (0-3) 0 % (0-3) Basophils (%) (Auto) 1 % (0-3) 1 % (0-3) Neutrophils # (Auto) 9.1 x10^3uL (1.8-7.7) 7.1 x10^3uL (1.8-7.7) Lymphocytes # (Auto) 1.3 x10^3/uL (1.0-4.8) 0.9 x10^3/uL (1.0-4.8) Monocytes # (Auto) 0.2 x10^3/uL (0.0-1.1) 0.7 x10^3/uL (0.0-1.1) Eosinophils # (Auto) 0.0 x10^3/uL (0.0-0.7) 0.0 x10^3/uL (0.0-0.7) Basophils # (Auto) 0.0 x10^3/uL (0.0-0.2) 0.0 x10^3/uL (0.0-0.2) Sodium Level 136 mmol/L (136-145) 138 mmol/L (136-145) Potassium Level 4.4 mmol/L (3.5-5.1) 4.1 mmol/L (3.5-5.1) Chloride Level 100 mmol/L (98-107) 102 mmol/L (98-107) Carbon Dioxide Level 27 mmol/L (21-32) 28 mmol/L (21-32) Anion Gap 9 (6-14) 8 (6-14) Blood Urea Nitrogen 33 mg/dL (7-20) 36 mg/dL (7-20) Creatinine 5.0 mg/dL (0.6-1.0) 5.0 mg/dL (0.6-1.0) Estimated GFR (Cockcroft-Gault) 8.7 8.7 BUN/Creatinine Ratio 7 (6-20) Glucose Level 293 mg/dL (70-99) 223 mg/dL (70-99) Calcium Level 8.3 mg/dL (8.5-10.1) 8.4 mg/dL (8.5-10.1) Phosphorus Level 4.4 mg/dL (2.6-4.7) Magnesium Level 2.0 mg/dL (1.8-2.4) Total Bilirubin 0.3 mg/dL (0.2-1.0) Aspartate Amino Transf (AST/SGOT) 16 U/L (15-37) Alanine Aminotransferase (ALT/SGPT) 18 U/L (14-59) Alkaline Phosphatase 140 U/L (46-116) Total Protein 5.7 g/dL (6.4-8.2) Albumin 2.1 g/dL (3.4-5.0) Albumin/Globulin Ratio 0.6 (1.0-1.7) O2 Saturation 98 % (92-99) Arterial Blood pH 7.53 (7.35-7.45) Arterial Blood pCO2 at Patient Temp 30 mmHg (35-46) Arterial Blood pO2 at Patient Temp 101 mmHg (65-108) Arterial Blood HCO3 25 mmol/L (21-28) Arterial Blood Base Excess 2 mmol/L (-3-3) FiO2 40 Prothrombin Time 15.6 SEC (11.7-14.0) Prothromb Time International Ratio 1.3 (0.8-1.1) Lactic Acid Level 2.0 mmol/L (0.4-2.0) Troponin I Quantitative 0.127 ng/mL (0.000-0.055) Test 11/12/16 08:00 11/12/16 08:38 11/12/16 09:05 11/12/16 12:13 O2 Saturation 94 % (92-99) Arterial Blood pH 7.46 (7.35-7.45) Arterial Blood pCO2 at Patient Temp 37 mmHg (35-46) Arterial Blood pO2 at Patient Temp 71 mmHg (65-108) Arterial Blood HCO3 26 mmol/L (21-28) Arterial Blood Base Excess 2 mmol/L (-3-3) FiO2 40 Glucose (Fingerstick) 117 mg/dL (70-99) 104 mg/dL (70-99) Heparin Anti-Xa Act, Unfractionated 0.24 IU/mL (0.30-0.70) Creatine Kinase 87 U/L (26-192) Creatine Kinase MB (Mass) 1.3 ng/mL (0.0-3.6) Creatine Kinase MB Relative Index 1.5 % (0-4) Troponin I Quantitative 0.117 ng/mL (0.000-0.055) Test 11/12/16 14:53 11/12/16 16:05 11/12/16 16:17 11/12/16 22:16 Heparin Anti-Xa Act, Unfractionated 0.22 IU/mL (0.30-0.70) O2 Saturation 99 % (92-99) Arterial Blood pH 7.38 (7.35-7.45) Arterial Blood pCO2 at Patient Temp 47 mmHg (35-46) Arterial Blood pO2 at Patient Temp 160 mmHg (65-108) Arterial Blood HCO3 27 mmol/L (21-28) Arterial Blood Base Excess 1 mmol/L (-3-3) FiO2 40 Glucose (Fingerstick) 95 mg/dL (70-99) 79 mg/dL (70-99) Test 11/13/16 01:10 11/13/16 06:05 White Blood Count 10.5 x10^3/uL (4.0-11.0) 10.4 x10^3/uL (4.0-11.0) Red Blood Count 3.11 x10^6/uL (3.50-5.40) 2.95 x10^6/uL (3.50-5.40) Hemoglobin 9.2 g/dL (12.0-15.5) 8.8 g/dL (12.0-15.5) Hematocrit 28.2 % (36.0-47.0) 26.5 % (36.0-47.0) Mean Corpuscular Volume 91 fL (79-100) 90 fL (79-100) Mean Corpuscular Hemoglobin 30 pg (25-35) 30 pg (25-35) Mean Corpuscular Hemoglobin Concent 33 g/dL (31-37) 33 g/dL (31-37) Red Cell Distribution Width 16.4 % (11.5-14.5) 16.6 % (11.5-14.5) Platelet Count 155 x10^3/uL (140-400) 149 x10^3/uL (140-400) Heparin Anti-Xa Act, Unfractionated 0.18 IU/mL (0.30-0.70) Neutrophils (%) (Auto) 64 % (31-73) Lymphocytes (%) (Auto) 25 % (24-48) Monocytes (%) (Auto) 9 % (0-9) Eosinophils (%) (Auto) 1 % (0-3) Basophils (%) (Auto) 1 % (0-3) Neutrophils # (Auto) 6.7 x10^3uL (1.8-7.7) Lymphocytes # (Auto) 2.6 x10^3/uL (1.0-4.8) Monocytes # (Auto) 0.9 x10^3/uL (0.0-1.1) Eosinophils # (Auto) 0.1 x10^3/uL (0.0-0.7) Basophils # (Auto) 0.1 x10^3/uL (0.0-0.2) Sodium Level 136 mmol/L (136-145) Potassium Level 4.4 mmol/L (3.5-5.1) Chloride Level 100 mmol/L (98-107) Carbon Dioxide Level 25 mmol/L (21-32) Anion Gap 11 (6-14) Blood Urea Nitrogen 41 mg/dL (7-20) Creatinine 5.5 mg/dL (0.6-1.0) Estimated GFR (Cockcroft-Gault) 7.8 Glucose Level 81 mg/dL (70-99) Calcium Level 8.0 mg/dL (8.5-10.1) Laboratory Tests Test 11/12/16 12:13 11/12/16 14:53 11/12/16 16:05 11/12/16 16:17 Glucose (Fingerstick) 104 mg/dL (70-99) 95 mg/dL (70-99) Heparin Anti-Xa Act, Unfractionated 0.22 IU/mL (0.30-0.70) O2 Saturation 99 % (92-99) Arterial Blood pH 7.38 (7.35-7.45) Arterial Blood pCO2 at Patient Temp 47 mmHg (35-46) Arterial Blood pO2 at Patient Temp 160 mmHg (65-108) Arterial Blood HCO3 27 mmol/L (21-28) Arterial Blood Base Excess 1 mmol/L (-3-3) FiO2 40 Test 11/12/16 22:16 11/13/16 01:10 11/13/16 06:05 Glucose (Fingerstick) 79 mg/dL (70-99) White Blood Count 10.5 x10^3/uL (4.0-11.0) 10.4 x10^3/uL (4.0-11.0) Red Blood Count 3.11 x10^6/uL (3.50-5.40) 2.95 x10^6/uL (3.50-5.40) Hemoglobin 9.2 g/dL (12.0-15.5) 8.8 g/dL (12.0-15.5) Hematocrit 28.2 % (36.0-47.0) 26.5 % (36.0-47.0) Mean Corpuscular Volume 91 fL (79-100) 90 fL (79-100) Mean Corpuscular Hemoglobin 30 pg (25-35) 30 pg (25-35) Mean Corpuscular Hemoglobin Concent 33 g/dL (31-37) 33 g/dL (31-37) Red Cell Distribution Width 16.4 % (11.5-14.5) 16.6 % (11.5-14.5) Platelet Count 155 x10^3/uL (140-400) 149 x10^3/uL (140-400) Heparin Anti-Xa Act, Unfractionated 0.18 IU/mL (0.30-0.70) Neutrophils (%) (Auto) 64 % (31-73) Lymphocytes (%) (Auto) 25 % (24-48) Monocytes (%) (Auto) 9 % (0-9) Eosinophils (%) (Auto) 1 % (0-3) Basophils (%) (Auto) 1 % (0-3) Neutrophils # (Auto) 6.7 x10^3uL (1.8-7.7) Lymphocytes # (Auto) 2.6 x10^3/uL (1.0-4.8) Monocytes # (Auto) 0.9 x10^3/uL (0.0-1.1) Eosinophils # (Auto) 0.1 x10^3/uL (0.0-0.7) Basophils # (Auto) 0.1 x10^3/uL (0.0-0.2) Sodium Level 136 mmol/L (136-145) Potassium Level 4.4 mmol/L (3.5-5.1) Chloride Level 100 mmol/L (98-107) Carbon Dioxide Level 25 mmol/L (21-32) Anion Gap 11 (6-14) Blood Urea Nitrogen 41 mg/dL (7-20) Creatinine 5.5 mg/dL (0.6-1.0) Estimated GFR (Cockcroft-Gault) 7.8 Glucose Level 81 mg/dL (70-99) Calcium Level 8.0 mg/dL (8.5-10.1) Microbiology 11/11/16 Blood Culture - Preliminary, Resulted NO GROWTH AFTER 1 DAY Medications Current Medications Sodium Chloride 1,000 ml @ 100 mls/hr Q10H IV Last administered on 11/11/16 12:04; Start 11/11/16 at 11:40; Stop 11/11/16 at 21:39; Status DC Iohexol (Omnipaque 300 Mg/ml) 75 ml 1X ONCE IV Last administered on 11/11/16 12:45; Start 11/11/16 at 12:45; Stop 11/11/16 at 12:46; Status DC Info (Do NOT chart on this entry -- for MONITORING) 1 each PRN DAILY PRN MC SEE COMMENTS; Start 11/11/16 at 13:00; Stop 11/13/16 at 12:59 Ondansetron HCl (Zofran) 4 mg PRN Q6HRS PRN IV NAUSEA/VOMITING; Start 11/11/16 at 13:30 Prochlorperazine Edisylate (Compazine) 10 mg PRN Q6HRS PRN IV NAUSEA/VOMITING, 2nd choice; Start 11/11/16 at 13:30 Prochlorperazine (Compazine) 25 mg PRN Q12HR PRN IN NAUSEA/VOMITING; Start at 13:30 Al Hydroxide/Mg Hydroxide (Mylanta Plus Xs) 30 ml PRN Q3HRS PRN PO HEARTBURN / GAS; Start 11/11/16 at 13:30; Status Cancel Calcium Carbonate/ Glycine (Tums) 500 mg PRN Q3HRS PRN PO UPSET STOMACH; Start 11/11/16 at 13:30 Acetaminophen/ Hydrocodone Bitart (Lortab 5/325) 1 tab PRN Q4HRS PRN PO MILD PAIN; Start 11/11/16 at 13:30 Acetaminophen (Tylenol) 650 mg PRN Q6HRS PRN PO Headaches, Temp > 101.5F; Start 11/11/16 at 13:30 Heparin Sodium (Porcine) (Heparin Sq) 5,000 unit Q8HRS SQ Last administered on 11/11/16t 22:05; Start 11/11/16 at 22:00; Stop 11/12/16 at 01:51; Status DC Fentanyl Citrate (Fentanyl 2ml Vial) 50 mcg PRN Q2HR PRN IV pain; Start at 13:30 Albuterol/ Ipratropium (Duoneb) 3 ml RTQID NEB Last administered on 11/13/16 07:55; Start 11/11/16 at 16:00 Nicotine (Nicoderm Cq 21mg) 1 patch PRN DAILY PRN TD SMOKING CESSATION; Start 11/11/16 at 13:30 Guaifenesin (Robitussin Dm) 10 ml PRN Q6HRS PRN PO COUGH; Start 11/11/16 at 13: 30 Acetaminophen (Tylenol) 500 mg PRN Q12HRS PRN PO MILD PAIN, 1st choice; Start 11/11/16 at 13:45 Alprazolam (Xanax) 0.25 mg DAILY PRN PO ANXIETY / AGITATION; Start 11/11/16 at 13:45 Aspirin (Ecotrin) 81 mg DAILYWBKFT PO Last administered on 11/12/16 09:34; Start 11/12/16 at 08:00 Atorvastatin Calcium (Lipitor) 10 mg QHS PO Last administered on 11/12/16 22: 13; Start 11/11/16 at 21:00 Carvedilol (Coreg) 3.125 mg BIDWMEALS PO Last administered on 11/11/16 22:06; Start 11/11/16 at 17:00; Stop 11/12/16 at 10:41; Status DC Cinacalcet (Sensipar) 30 mg QHS PO Last administered on 11/12/16 22:13; Start 11/11/16 at 21:00 Clopidogrel Bisulfate (Plavix) 75 mg DAILYWBKFT PO Last administered on 09:34; Start 11/12/16 at 08:00 Furosemide (Lasix) 60 mg DAILY PRN PO SEE COMMENTS Last administered on 09:34; Start 11/11/16 at 13:45 Lisinopril (Prinivil) 40 mg QTUTHSASU PO Last administered on 11/11/16 22:06; Start 11/11/16 at 16:00 Metolazone (Zaroxolyn) 2.5 mg 3X/WEEK PO ; Start 11/12/16 at 09:00 Potassium Chloride (Klor-Con) 20 meq WEEKLY PRN PO SEE COMMENTS; Start at 13:45 Sertraline HCl (Zoloft) 50 mg QHS PO Last administered on 11/12/16 22:14; Start 11/11/16 at 21:00 Calcium Acetate (Phoslo) 1,334 mg TIDWMEALS PO Last administered on 11/12/16 12:15; Start 11/11/16 at 17:00 Non-Formulary Medication 1 each DAILY PO ; Start 11/12/16 at 09:00; Status UNV Non-Formulary Medication 210 mg TIDWMEALS PO ; Start 11/11/16 at 17:00; Status UNV Gabapentin (Neurontin) 300 mg DAILY PO Last administered on 11/12/16 09:34; Start 11/12/16 at 09:00 Insulin Detemir (Levemir) 50 units QHS SQ Last administered on 11/11/16 22:04 ; Start 11/11/16 at 21:00 Non-Formulary Medication 5 mg HS PO ; Start 11/11/16 at 21:00; Status UNV Vitamin B Complex/ Vitamin C (Alayna-Oneil) 1 tab DAILY PO Last administered on 09:33; Start 11/12/16 at 09:00 Insulin Aspart (NovoLOG) 0-9 UNITS TIDWMEALS SQ ; Start 11/11/16 at 17:00 Dextrose (Dextrose 50%-Water Syringe) 12.5 gm PRN Q15MIN PRN IV SEE COMMENTS; Start 11/11/16 at 13:45 Sodium Chloride 1,000 ml @ 100 mls/hr Q10H IV Last administered on 11/12/16 06:05; Start 11/11/16 at 13:49; Stop 11/11/16 at 23:48; Status DC Albuterol/ Ipratropium (Duoneb) 3 ml 1X ONCE NEB Last administered on 14:56; Start 11/11/16 at 14:00; Stop 11/11/16 at 14:31; Status DC Methylprednisolone Sodium Succinate (SOLU-Medrol 125MG VIAL) 125 mg 1X ONCE IV Last administered on 11/11/16 14:58; Start 11/11/16 at 14:30; Stop 11/11/16 at 14:32; Status DC Cefepime HCl 1 gm/ Sodium Chloride 50 ml @ 100 mls/hr Q24H IV Last administered on 11/12/16 13:45; Start 11/12/16 at 14:00 Vancomycin HCl 1.5 gm/Sodium Chloride 500 ml @ 250 mls/hr 1X ONCE IV ; Start 11/11/16 at 14:30; Stop 11/11/16 at 16:29; Status UNV Vancomycin HCl 2 gm/Sodium Chloride 500 ml @ 250 mls/hr ONCE ONCE IV Last administered on 11/11/16 20:30; Start 11/11/16 at 14:30; Stop 11/11/16 at 16:29 ; Status DC Cefepime HCl 1 gm/ Sodium Chloride 50 ml @ 100 mls/hr ONCE ONCE IV Last administered on 11/11/16 15:01; Start 11/11/16 at 14:45; Stop 11/11/16 at 15:14 ; Status DC Amiodarone HCl 150 mg/Dextrose 103 ml @ 618 mls/hr 1X ONCE IV ; Start at 01:30; Stop 11/12/16 at 01:39; Status DC Amiodarone HCl 900 mg/Dextrose 518 ml @ 0 mls/hr CONT PRN IV SEE I/O RECORD Last administered on 11/12/16 06:07; Start 11/12/16 at 01:45; Stop 11/12/16 at 06:07; Status DC Etomidate (Amidate) 20 mg 1X ONCE IV ; Start 11/12/16 at 01:15; Stop 11/12/16 at 01:16; Status DC Rocuronium [place] (Zemuron) 100 mg 1X ONCE IV ; Start 11/12/16 at 01:15; Stop 11/12/16 at 01:16; Status DC Etomidate (Amidate) 20 mg STK-MED ONCE IV ; Start 11/12/16 at 01:03; Stop at 01:04; Status DC Propofol 100 ml @ As Directed STK-MED ONCE IV ; Start 11/12/16 at 01:17; Stop 11/12/16 at 01:18; Status DC Propofol 100 ml @ 0 mls/hr CONT PRN IV SEE I/O RECORD; Start 11/12/16 at 01:30 Rocuronium [place] (Zemuron) 50 mg STK-MED ONCE .ROUTE ; Start 11/12/16 at 01:33 ; Stop 11/12/16 at 01:34; Status DC Heparin Sodium (Porcine) (Heparin Sodium) 4,000 unit 1X ONCE IV Last administered on 11/12/16 02:56; Start 11/12/16 at 02:00; Stop 11/12/16 at 02:01 ; Status DC Heparin Sodium/ Dextrose 500 ml @ 0 mls/hr CONT PRN IV SEE I/O RECORD Last administered on 11/13/16 04:00; Start 11/12/16 at 01:45 Heparin Sodium (Porcine) (Heparin Sodium) 1,750 unit PRN Q6HRS PRN IV FOR UFH LEVEL LESS THAN 0.2 Last administered on 11/13/16 03:17; Start 11/12/16 at 01: 45 Info (Anti-Coagulation Monitoring By Pharmacy) 1 each PRN DAILY PRN MC SEE COMMENTS Last administered on 11/13/16 08:04; Start 11/12/16 at 02:00 Pantoprazole Sodium (Protonix) 40 mg DAILYAC PO Last administered on 11/12/16 09:35; Start 11/12/16 at 10:30 Budesonide (Pulmicort) 0.5 mg RTBID NEB Last administered on 11/13/16 07:55; Start 11/12/16 at 10:30 Amiodarone HCl 900 mg/Dextrose 518 ml @ 33.33 mls/ hr CONT PRN IV SEE I/O RECORD Last administered on 11/12/16 13:45; Start 11/12/16 at 10:30; Stop 11/12 at 16:29; Status DC Amiodarone HCl 900 mg/Dextrose 518 ml @ 16.67 mls/ hr CONT PRN IV SEE I/O RECORD; Start 11/12/16 at 10:30; Stop 11/13/16 at 04:29; Status UNV Darbepoetin [place] (Aranesp) 60 mcg WEEKLYHS SQ Last administered on 11/12/16 22 :14; Start 11/12/16 at 21:00 Hydralazine HCl (Apresoline) 10 mg PRN Q4HRS PRN IVP ELEVATED BP, SEE COMMENTS ; Start 11/12/16 at 13:15 Amiodarone HCl (Cordarone) 150 mg STK-MED ONCE .ROUTE ; Start 11/13/16 at 21:00 ; Stop 11/13/16 at 21:01; Status DC Magnesium Sulfate/ Dextrose (Magnesium Sulfate PREMIX 1GM) 1 gm STK-MED ONCE IV ; Start 11/13/16 at 21:00; Stop 11/13/16 at 21:01; Status DC Active Scripts Active Lisinopril 40 Mg Tablet 40 Mg PO [id number] Carvedilol 3.125 Mg Tablet 3.125 Mg PO BIDWMEALS Reported Sertraline Hcl 50 Mg Tablet 50 Mg PO QHS Sensipar (Cinacalcet Hcl) 30 Mg Tablet 1 Tab PO QHS Alayna-Oneil Rx Tablet (Vit B Cmplx 3/Fa/Vit C/Biotin) 1 Each Tablet 1 Each PO DAILY Cranberry Plus Vitamin C Sftgl (Cranberry Conc/Ascorbic Acid) 1 Each Capsule 1 Each PO DAILY Lipitor (Atorvastatin Calcium) 10 Mg Tablet 1 Tab PO DAILY Coricidin Hbp Tablet (Acetaminophen/Chlorpheniramine) 1 Each Tablet 1 Each PO PRN Ferric Citrate 210 Mg Tablet 210 Mg PO TIDWMEALS Alprazolam 0.25 Mg Tablet 1 Tab PO DAILY PRN Plavix (Clopidogrel Bisulfate) 75 Mg Tablet 75 Mg PO DAILY Calcium Acetate 667 Mg Tablet 2 Tab PO TIDWMEALS last dose was this am next dose is wiith supper Tylenol Extra Strength (Acetaminophen) 500 Mg Tablet 500 Mg PO PRN Q12HRS PRN not given in hospital may resume when needed Metolazone 2.5 Mg Tablet 2.5 Mg PO 3X/WEEK Furosemide 40 Mg Tablet 60 Mg PO PRN PRN not given in hospital may take as instructed by provider Potassium Chloride 20 Meq Tab.er.prt 20 Meq PO WEEKLY PRN was not given in hospital Gabapentin 300 Mg Capsule 300 Mg PO DAILY Crestor (Rosuvastatin Calcium) 5 Mg Tablet 5 Mg PO HS was not given in the hospital as requested will resume at home Lantus (Insulin Glargine,Hum.rec.anlog) 100 Unit/1 Ml Vial 50 Unit SQ HS refused to take last night stated she would take her own at home Benadryl Allergy (Diphenhydramine Hcl) 25 Mg Tablet 25 Mg PO PRN not given in the hospital Aspir 81 (Aspirin) 81 Mg Tablet. 81 Mg PO DAILY last dose was this am resume in am Vitals/I & O Vital Sign - Last 24 Hours 11/12/16 11/12/16 11/12/16 11/12/16 10:00 10:10 11:00 11:39 Temp 98.9 98.9 Pulse 43 43 44 Resp 12 11 11 B/P (MAP) 108/46 (66) 108/48 (68) 120/58 Pulse Ox 100 100 100 O2 Delivery Ventilator Ventilator Ventilator 11/12/16 11/12/16 11/12/16 11/12/16 11:45 11:56 12:00 12:00 Temp 97.8 97.8 97.8 97.8 Pulse 48 43 Resp 12 12 B/P (MAP) 109/48 120/58 (78) Pulse Ox 100 100 O2 Delivery Ventilator Ventilator Mechanical Ventilator 11/12/16 11/12/16 11/12/16 11/12/16 12:15 12:30 13:00 13:50 Temp 97.6 97.6 97.6 97.6 Pulse 43 42 47 Resp 11 12 12 B/P (MAP) 120/57 112/59 121/57 (78) Pulse Ox 100 100 O2 Delivery Ventilator Ventilator 11/12/16 11/12/16 11/12/16 11/12/16 14:00 15:00 15:27 15:35 Pulse 42 51 Resp 12 11 B/P (MAP) 119/48 (71) 153/70 (97) Pulse Ox 100 100 100 O2 Delivery Ventilator Ventilator Ventilator Ventilator 11/12/16 11/12/16 11/12/16 11/12/16 16:00 16:00 17:00 18:00 Temp 98.5 98.5 Pulse 54 50 50 Resp 16 10 16 B/P (MAP) 150/80 (103) 132/50 (77) 113/50 (71) Pulse Ox 100 100 100 O2 Delivery Ventilator Mechanical Ventilator Nasal Cannula Nasal Cannula O2 Flow Rate 1.0 1.0 11/12/16 11/12/16 11/12/16 11/12/16 19:00 19:37 19:39 20:00 Pulse 50 Resp 16 B/P (MAP) 113/50 (71) Pulse Ox 100 99 99 O2 Delivery Nasal Cannula Nasal Cannula Nasal Cannula O2 Flow Rate 1.0 2.0 1.0 1.0 11/12/16 11/12/16 11/12/16 11/12/16 20:00 21:00 22:00 23:00 Temp 97.9 97.9 Pulse 50 49 51 53 Resp 15 14 8 16 B/P (MAP) 116/47 (70) 120/50 (73) 135/54 (81) 133/57 (82) Pulse Ox 100 100 100 100 O2 Delivery Nasal Cannula Nasal Cannula Nasal Cannula Nasal Cannula O2 Flow Rate 1.0 1.0 1.0 1.0 11/13/16 11/13/16 11/13/16 8/24/17 00:00 00:00 01:00 02:00 Temp 98.2 98.2 Pulse 53 50 50 Resp 16 19 12 B/P (MAP) 109/47 (67) 122/49 (73) 107/63 (78) Pulse Ox 98 100 100 O2 Delivery Nasal Cannula Nasal Cannula Nasal Cannula Nasal Cannula O2 Flow Rate 1.0 1.0 1.0 1.0 11/13/16 11/13/16 11/13/16 11/13/16 03:00 04:00 04:00 05:00 Temp 98.6 98.6 Pulse 50 65 64 Resp 12 13 13 B/P (MAP) 97/45 (62) 84/39 (54) 106/42 (63) Pulse Ox 100 100 100 O2 Delivery Nasal Cannula Nasal Cannula Nasal Cannula Nasal Cannula O2 Flow Rate 1.0 1.0 1.0 1.0 11/13/16 11/13/16 11/13/16 06:00 07:00 07:55 Pulse 56 54 Resp 15 15 B/P (MAP) 115/53 (73) 112/47 (68) Pulse Ox 100 97 99 O2 Delivery Nasal Cannula Nasal Cannula Nasal Cannula O2 Flow Rate 1.0 1.0 1.0 Intake and Output 11/12/16 11/12/16 11/13/16 15:00 23:00 07:00 Intake Total 650 ml 600 ml 339 ml Output Total 118 ml 320 ml 150 ml Balance 532 ml 280 ml 189 ml MICHELLE DOWD MD Nov 13, 2016 09:09
[2016-11-13] MEDS: ASPIRIN ENTERIC COATED 81 MG TABLET.DR. PO SCH (09:22)
[2016-11-13] MEDS: CLOPIDOGREL BISULFATE 75 MG TABLET PO SCH (09:22)
[2016-11-13] MEDS: GABAPENTIN 300 MG CAPSULE. PO SCH (09:22)
[2016-11-13] MEDS: FOLIC/VIT B COMP W-C (RENAL) TABLET. PO SCH (09:22)
[2016-11-13] MEDS: CALCIUM ACETATE 667 MG CAPSULE PO SCH ×3 (09:22→21:20)
[2016-11-13] MEDS: PANTOPRAZOLE 40 MG TABLET.DR. PO SCH (09:22)
--- NOTE | 2016-11-13 09:48 | PDOC ---
Provider Note Provider Note 11/13/2016 0910 Pt is doing well, extubated and passed swallow study. Denies any significant discomfort no SOA. Discussed events with pt and treatment plan. C to rue out any ischemic etiology of her cardiac arrest and ventricular arrhythmias. C explained, risks and benefits, and agreeable to proceed. Will now convert amiodarone to PO. [facility] scheduled around 11 AM. PATRICE HA APRN Nov 13, 2016 09:48
[2016-11-13] MEDS: DEXTROSE 50% 25 GM / 50ML DISP.SYRIN. IV PRN (10:28)
--- NOTE | 2016-11-13 10:29 | PDOC ---
PULMONARY PROGRESS NOTES Subjective extubated, 11/12, has chest wall pain, has cough, sputum, no sob Vitals Vital Signs Date Time Temp Pulse Resp B/P (MAP) Pulse Ox O2 Delivery O2 Flow Rate FiO2 11/13/16 07:55 99 Nasal Cannula 1.0 11/13/16 07:00 54 15 112/47 (68) 11/13/16 04:00 98.6 98.6 Comments ros as mentioned as above other sys otherwise neg ROS: No Nausea, No Abdominal Pain General: Alert, Oriented X4 HEENT: Other (nc at perrl. shallow oropharynx. nose clear. neck, no lap, no thyromegaly) Lungs: Crackles Cardiovascular: S1, S2 Abdomen: Soft, Non-tender Neuro Exam: Alert, Oriented Extremities: No Edema Skin: Warm Labs Laboratory Tests Test 11/11/16 11:28 11/11/16 11:40 11/11/16 11:45 11/11/16 11:48 White Blood Count 22.1 x10^3/uL (4.0-11.0) Red Blood Count 3.11 x10^6/uL (3.50-5.40) Hemoglobin 9.1 g/dL (12.0-15.5) Hematocrit 29.2 % (36.0-47.0) Mean Corpuscular Volume 94 fL (79-100) Mean Corpuscular Hemoglobin 29 pg (25-35) Mean Corpuscular Hemoglobin Concent 31 g/dL (31-37) Red Cell Distribution Width 16.7 % (11.5-14.5) Platelet Count 284 x10^3/uL (140-400) Neutrophils (%) (Auto) 71 % (31-73) Lymphocytes (%) (Auto) 19 % (24-48) Monocytes (%) (Auto) 6 % (0-9) Eosinophils (%) (Auto) 2 % (0-3) Basophils (%) (Auto) 1 % (0-3) Neutrophils # (Auto) 15.7 x10^3uL (1.8-7.7) Lymphocytes # (Auto) 4.2 x10^3/uL (1.0-4.8) Monocytes # (Auto) 1.4 x10^3/uL (0.0-1.1) Eosinophils # (Auto) 0.5 x10^3/uL (0.0-0.7) Basophils # (Auto) 0.3 x10^3/uL (0.0-0.2) Segmented Neutrophils % 66 % (35-66) Band Neutrophils % 3 % (0-9) Lymphocytes % 25 % (24-48) Monocytes % 5 % (0-10) Myelocytes % 1 % (0-0) Toxic Granulation Slight Platelet Estimate Adequate (ADEQUATE) Polychromasia Slight Sodium Level 136 mmol/L (136-145) Potassium Level 4.4 mmol/L (3.5-5.1) Chloride Level 102 mmol/L (98-107) Carbon Dioxide Level 25 mmol/L (21-32) Anion Gap 9 (6-14) 15 mmol/L (6-14) Blood Urea Nitrogen 56 mg/dL (7-20) Creatinine 7.1 mg/dL (0.6-1.0) Estimated GFR (Cockcroft-Gault) 5.8 BUN/Creatinine Ratio 8 (6-20) Glucose Level 228 mg/dL (70-99) 217 mg/dL (70-99) Lactic Acid Level 2.2 mmol/L (0.4-2.0) Calcium Level 8.2 mg/dL (8.5-10.1) Total Bilirubin 0.3 mg/dL (0.2-1.0) Aspartate Amino Transf (AST/SGOT) 14 U/L (15-37) Alanine Aminotransferase (ALT/SGPT) 15 U/L (14-59) Alkaline Phosphatase 165 U/L (46-116) Creatine Kinase 57 U/L (26-192) Creatine Kinase MB (Mass) 1.1 ng/mL (0.0-3.6) Creatine Kinase MB Relative Index 1.9 % (0-4) Troponin I Quantitative 0.077 ng/mL (0.000-0.055) GJ-Bac-R-Type Natriuretic Peptide > 79564 pg/mL (0-124) Total Protein 6.4 g/dL (6.4-8.2) Albumin 2.4 g/dL (3.4-5.0) Albumin/Globulin Ratio 0.6 (1.0-1.7) Thyroid Stimulating Hormone (TSH) 7.641 uIU/mL (0.358-3.74) O2 Saturation 98 % (92-99) Arterial Blood pH 7.28 (7.35-7.45) Arterial Blood pCO2 at Patient Temp 41 mmHg (35-46) Arterial Blood pO2 at Patient Temp 156 mmHg (65-108) Arterial Blood HCO3 19 mmol/L (21-28) Arterial Blood Base Excess -7 mmol/L (-3-3) FiO2 80 Bedside Troponin I 0.11 ng/ml (<0.08) Bedside Hemoglobin 9.2 g/dL (12-15) Bedside Hematocrit 27 % (36-40) Bedside Sodium 136 mmol/L (135-145) Bedside Potassium 4.4 mmol/L (3.5-5.0) Bedside Chloride 103 mmol/L (98-110) Bedside Total CO2 23 mmol/L (23-32) Bedside Blood Urea Nitrogen 55 mg/dL (8-26) Bedside Creatinine 7.6 mg/dL (0.5-1.4) Bedside Ionized Calcium (Jay) 1.04 mmol/L (1.13-1.32) Test 11/11/16 16:00 11/11/16 17:49 11/11/16 17:50 11/11/16 22:02 Nasal Screen MRSA (PCR) Negative (Negative) Glucose (Fingerstick) 147 mg/dL (70-99) 296 mg/dL (70-99) Sodium Level 137 mmol/L (136-145) Potassium Level 4.1 mmol/L (3.5-5.1) Chloride Level 99 mmol/L (98-107) Carbon Dioxide Level 29 mmol/L (21-32) Anion Gap 9 (6-14) Blood Urea Nitrogen 25 mg/dL (7-20) Creatinine 3.3 mg/dL (0.6-1.0) Estimated GFR (Cockcroft-Gault) 14.0 Glucose Level 160 mg/dL (70-99) Calcium Level 8.4 mg/dL (8.5-10.1) Test 11/12/16 00:55 11/12/16 00:59 11/12/16 03:04 11/12/16 04:50 Glucose (Fingerstick) 284 mg/dL (70-99) White Blood Count 10.6 x10^3/uL (4.0-11.0) 8.7 x10^3/uL (4.0-11.0) Red Blood Count 2.91 x10^6/uL (3.50-5.40) 2.35 x10^6/uL (3.50-5.40) Hemoglobin 8.7 g/dL (12.0-15.5) 7.1 g/dL (12.0-15.5) Hematocrit 26.6 % (36.0-47.0) 21.2 % (36.0-47.0) Mean Corpuscular Volume 91 fL (79-100) 90 fL (79-100) Mean Corpuscular Hemoglobin 30 pg (25-35) 30 pg (25-35) Mean Corpuscular Hemoglobin Concent 33 g/dL (31-37) 34 g/dL (31-37) Red Cell Distribution Width 16.1 % (11.5-14.5) 15.7 % (11.5-14.5) Platelet Count 184 x10^3/uL (140-400) 144 x10^3/uL (140-400) Neutrophils (%) (Auto) 86 % (31-73) 81 % (31-73) Lymphocytes (%) (Auto) 12 % (24-48) 10 % (24-48) Monocytes (%) (Auto) 2 % (0-9) 8 % (0-9) Eosinophils (%) (Auto) 0 % (0-3) 0 % (0-3) Basophils (%) (Auto) 1 % (0-3) 1 % (0-3) Neutrophils # (Auto) 9.1 x10^3uL (1.8-7.7) 7.1 x10^3uL (1.8-7.7) Lymphocytes # (Auto) 1.3 x10^3/uL (1.0-4.8) 0.9 x10^3/uL (1.0-4.8) Monocytes # (Auto) 0.2 x10^3/uL (0.0-1.1) 0.7 x10^3/uL (0.0-1.1) Eosinophils # (Auto) 0.0 x10^3/uL (0.0-0.7) 0.0 x10^3/uL (0.0-0.7) Basophils # (Auto) 0.0 x10^3/uL (0.0-0.2) 0.0 x10^3/uL (0.0-0.2) Sodium Level 136 mmol/L (136-145) 138 mmol/L (136-145) Potassium Level 4.4 mmol/L (3.5-5.1) 4.1 mmol/L (3.5-5.1) Chloride Level 100 mmol/L (98-107) 102 mmol/L (98-107) Carbon Dioxide Level 27 mmol/L (21-32) 28 mmol/L (21-32) Anion Gap 9 (6-14) 8 (6-14) Blood Urea Nitrogen 33 mg/dL (7-20) 36 mg/dL (7-20) Creatinine 5.0 mg/dL (0.6-1.0) 5.0 mg/dL (0.6-1.0) Estimated GFR (Cockcroft-Gault) 8.7 8.7 BUN/Creatinine Ratio 7 (6-20) Glucose Level 293 mg/dL (70-99) 223 mg/dL (70-99) Calcium Level 8.3 mg/dL (8.5-10.1) 8.4 mg/dL (8.5-10.1) Phosphorus Level 4.4 mg/dL (2.6-4.7) Magnesium Level 2.0 mg/dL (1.8-2.4) Total Bilirubin 0.3 mg/dL (0.2-1.0) Aspartate Amino Transf (AST/SGOT) 16 U/L (15-37) Alanine Aminotransferase (ALT/SGPT) 18 U/L (14-59) Alkaline Phosphatase 140 U/L (46-116) Total Protein 5.7 g/dL (6.4-8.2) Albumin 2.1 g/dL (3.4-5.0) Albumin/Globulin Ratio 0.6 (1.0-1.7) O2 Saturation 98 % (92-99) Arterial Blood pH 7.53 (7.35-7.45) Arterial Blood pCO2 at Patient Temp 30 mmHg (35-46) Arterial Blood pO2 at Patient Temp 101 mmHg (65-108) Arterial Blood HCO3 25 mmol/L (21-28) Arterial Blood Base Excess 2 mmol/L (-3-3) FiO2 40 Prothrombin Time 15.6 SEC (11.7-14.0) Prothromb Time International Ratio 1.3 (0.8-1.1) Lactic Acid Level 2.0 mmol/L (0.4-2.0) Troponin I Quantitative 0.127 ng/mL (0.000-0.055) Test 11/12/16 08:00 11/12/16 08:38 11/12/16 09:05 11/12/16 12:13 O2 Saturation 94 % (92-99) Arterial Blood pH 7.46 (7.35-7.45) Arterial Blood pCO2 at Patient Temp 37 mmHg (35-46) Arterial Blood pO2 at Patient Temp 71 mmHg (65-108) Arterial Blood HCO3 26 mmol/L (21-28) Arterial Blood Base Excess 2 mmol/L (-3-3) FiO2 40 Glucose (Fingerstick) 117 mg/dL (70-99) 104 mg/dL (70-99) Heparin Anti-Xa Act, Unfractionated 0.24 IU/mL (0.30-0.70) Creatine Kinase 87 U/L (26-192) Creatine Kinase MB (Mass) 1.3 ng/mL (0.0-3.6) Creatine Kinase MB Relative Index 1.5 % (0-4) Troponin I Quantitative 0.117 ng/mL (0.000-0.055) Test 11/12/16 14:53 11/12/16 16:05 11/12/16 16:17 11/12/16 22:16 Heparin Anti-Xa Act, Unfractionated 0.22 IU/mL (0.30-0.70) O2 Saturation 99 % (92-99) Arterial Blood pH 7.38 (7.35-7.45) Arterial Blood pCO2 at Patient Temp 47 mmHg (35-46) Arterial Blood pO2 at Patient Temp 160 mmHg (65-108) Arterial Blood HCO3 27 mmol/L (21-28) Arterial Blood Base Excess 1 mmol/L (-3-3) FiO2 40 Glucose (Fingerstick) 95 mg/dL (70-99) 79 mg/dL (70-99) Test 11/13/16 01:10 11/13/16 06:05 11/13/16 09:10 White Blood Count 10.5 x10^3/uL (4.0-11.0) 10.4 x10^3/uL (4.0-11.0) Red Blood Count 3.11 x10^6/uL (3.50-5.40) 2.95 x10^6/uL (3.50-5.40) Hemoglobin 9.2 g/dL (12.0-15.5) 8.8 g/dL (12.0-15.5) Hematocrit 28.2 % (36.0-47.0) 26.5 % (36.0-47.0) Mean Corpuscular Volume 91 fL (79-100) 90 fL (79-100) Mean Corpuscular Hemoglobin 30 pg (25-35) 30 pg (25-35) Mean Corpuscular Hemoglobin Concent 33 g/dL (31-37) 33 g/dL (31-37) Red Cell Distribution Width 16.4 % (11.5-14.5) 16.6 % (11.5-14.5) Platelet Count 155 x10^3/uL (140-400) 149 x10^3/uL (140-400) Heparin Anti-Xa Act, Unfractionated 0.18 IU/mL (0.30-0.70) 0.52 IU/mL (0.30-0.70) Neutrophils (%) (Auto) 64 % (31-73) Lymphocytes (%) (Auto) 25 % (24-48) Monocytes (%) (Auto) 9 % (0-9) Eosinophils (%) (Auto) 1 % (0-3) Basophils (%) (Auto) 1 % (0-3) Neutrophils # (Auto) 6.7 x10^3uL (1.8-7.7) Lymphocytes # (Auto) 2.6 x10^3/uL (1.0-4.8) Monocytes # (Auto) 0.9 x10^3/uL (0.0-1.1) Eosinophils # (Auto) 0.1 x10^3/uL (0.0-0.7) Basophils # (Auto) 0.1 x10^3/uL (0.0-0.2) Sodium Level 136 mmol/L (136-145) Potassium Level 4.4 mmol/L (3.5-5.1) Chloride Level 100 mmol/L (98-107) Carbon Dioxide Level 25 mmol/L (21-32) Anion Gap 11 (6-14) Blood Urea Nitrogen 41 mg/dL (7-20) Creatinine 5.5 mg/dL (0.6-1.0) Estimated GFR (Cockcroft-Gault) 7.8 Glucose Level 81 mg/dL (70-99) Calcium Level 8.0 mg/dL (8.5-10.1) Laboratory Tests Test 11/12/16 12:13 11/12/16 14:53 11/12/16 16:05 11/12/16 16:17 Glucose (Fingerstick) 104 mg/dL (70-99) 95 mg/dL (70-99) Heparin Anti-Xa Act, Unfractionated 0.22 IU/mL (0.30-0.70) O2 Saturation 99 % (92-99) Arterial Blood pH 7.38 (7.35-7.45) Arterial Blood pCO2 at Patient Temp 47 mmHg (35-46) Arterial Blood pO2 at Patient Temp 160 mmHg (65-108) Arterial Blood HCO3 27 mmol/L (21-28) Arterial Blood Base Excess 1 mmol/L (-3-3) FiO2 40 Test 11/12/16 22:16 11/13/16 01:10 11/13/16 06:05 11/13/16 09:10 Glucose (Fingerstick) 79 mg/dL (70-99) White Blood Count 10.5 x10^3/uL (4.0-11.0) 10.4 x10^3/uL (4.0-11.0) Red Blood Count 3.11 x10^6/uL (3.50-5.40) 2.95 x10^6/uL (3.50-5.40) Hemoglobin 9.2 g/dL (12.0-15.5) 8.8 g/dL (12.0-15.5) Hematocrit 28.2 % (36.0-47.0) 26.5 % (36.0-47.0) Mean Corpuscular Volume 91 fL (79-100) 90 fL (79-100) Mean Corpuscular Hemoglobin 30 pg (25-35) 30 pg (25-35) Mean Corpuscular Hemoglobin Concent 33 g/dL (31-37) 33 g/dL (31-37) Red Cell Distribution Width 16.4 % (11.5-14.5) 16.6 % (11.5-14.5) Platelet Count 155 x10^3/uL (140-400) 149 x10^3/uL (140-400) Heparin Anti-Xa Act, Unfractionated 0.18 IU/mL (0.30-0.70) 0.52 IU/mL (0.30-0.70) Neutrophils (%) (Auto) 64 % (31-73) Lymphocytes (%) (Auto) 25 % (24-48) Monocytes (%) (Auto) 9 % (0-9) Eosinophils (%) (Auto) 1 % (0-3) Basophils (%) (Auto) 1 % (0-3) Neutrophils # (Auto) 6.7 x10^3uL (1.8-7.7) Lymphocytes # (Auto) 2.6 x10^3/uL (1.0-4.8) Monocytes # (Auto) 0.9 x10^3/uL (0.0-1.1) Eosinophils # (Auto) 0.1 x10^3/uL (0.0-0.7) Basophils # (Auto) 0.1 x10^3/uL (0.0-0.2) Sodium Level 136 mmol/L (136-145) Potassium Level 4.4 mmol/L (3.5-5.1) Chloride Level 100 mmol/L (98-107) Carbon Dioxide Level 25 mmol/L (21-32) Anion Gap 11 (6-14) Blood Urea Nitrogen 41 mg/dL (7-20) Creatinine 5.5 mg/dL (0.6-1.0) Estimated GFR (Cockcroft-Gault) 7.8 Glucose Level 81 mg/dL (70-99) Calcium Level 8.0 mg/dL (8.5-10.1) Medications Active Scripts Medications Dose Route/Sig Max Daily Dose Days Date Category Dose Instructions Sertraline Hcl 50 Mg Tablet 50 Mg PO QHS 11/11/16 Reported Sensipar (Cinacalcet Hcl) 30 Mg Tablet 1 Tab PO QHS 11/11/16 Reported Alayna-Oneil Rx Tablet (Vit B Cmplx 3/Fa/Vit C/Biotin) 1 Each Tablet 1 Each PO DAILY 11/11/16 Reported Cranberry Plus Vitamin C Sftgl (Cranberry Conc/Ascorbic Acid) 1 Each Capsule 1 Each PO DAILY 11/11/16 Reported Lipitor (Atorvastatin Calcium) 10 Mg Tablet 1 Tab PO DAILY 11/11/16 Reported Coricidin Hbp Tablet (Acetaminophen/Chlorpheniramine) 1 Each Tablet 1 Each PO PRN 11/11/16 Reported Ferric Citrate 210 Mg Tablet 210 Mg PO TIDWMEALS 11/11/16 Reported Alprazolam 0.25 Mg Tablet 1 Tab PO DAILY PRN 11/11/16 Reported Lisinopril 40 Mg Tablet 40 Mg PO QTUTHSASU 10/25/16 Rx Carvedilol 3.125 Mg Tablet 3.125 Mg PO BIDWMEALS 10/25/16 Rx Plavix (Clopidogrel Bisulfate) 75 Mg Tablet 75 Mg PO DAILY 10/21/16 Reported Calcium Acetate 667 Mg Tablet 2 Tab PO TIDWMEALS 02/22/15 Reported last dose was this am next dose is wiith supper Tylenol Extra Strength (Acetaminophen) 500 Mg Tablet 500 Mg PO PRN Q12HRS PRN 02/22/15 Reported not given in hospital may resume when needed Metolazone 2.5 Mg Tablet 2.5 Mg PO 3X/WEEK 10/02/14 Reported Furosemide 40 Mg Tablet 60 Mg PO PRN PRN 10/02/14 Reported not given in hospital may take as instructed by provider Potassium Chloride 20 Meq Tab.er.prt 20 Meq PO WEEKLY PRN 10/02/14 Reported was not given in hospital Gabapentin 300 Mg Capsule 300 Mg PO DAILY 10/02/14 Reported Crestor (Rosuvastatin Calcium) 5 Mg Tablet 5 Mg PO HS 08/18/13 Reported was not given in the hospital as requested will resume at home Lantus (Insulin Glargine,Hum.rec.anlog) 100 Unit/1 Ml Vial 50 Unit SQ HS 05/31/13 Reported refused to take last night stated she would take her own at home Benadryl Allergy (Diphenhydramine Hcl) 25 Mg Tablet 25 Mg PO PRN 05/31/13 Reported not given in the hospital Aspir 81 (Aspirin) 81 Mg Tablet. 81 Mg PO DAILY 05/31/13 Reported last dose was this am resume in am Comments cxr reviewed, l atelectasis ? infilt Impression . IMPRESSION: 1. Acute hypoxemic respiratory failure, multifactorial in etiology including acute diastolic congestive heart failure, volume overload, acute exacerbation of chronic obstructive pulmonary disease, ventricular tachycardic versus others. 2. Abnormal chest x-ray. 3. Infiltrates/atelectasis. 4. Acute exacerbation of chronic obstructive pulmonary disease. 5. Acute diastolic congestive heart failure and volume overload. 6. Ventricular tachycardia, questionable etiology. 7. Coronary artery disease status post stent on 10/24/2016. 8. Tobacco habituation. 9. End-stage renal disease, on hemodialysis. 10. Diabetes mellitus. 11. Hypertension. 12. Overweight, questionable obstructive sleep apnea-hypopnea syndrome. 13. snoring, eds, obesity, ? alejandro Plan . PLAN AND RECOMMENDATIONS: 1. Titrate FiO2 to keep O2 saturation 94%. 2. Bronchodilator. 3. inhaled corticosteroid. 4. c today 5. amio 6. Protonix for stress ulcer prophylaxis. 7. SCDs for DVT prophylaxis. She has anemia, hold on Lovenox for now. 8. Elevate head of bed. 9. Monitor respiratory status very closely. 10. Hemodialysis per Nephrology. 11. The findings and recommendations were discussed with RN and RT. 12. Sleep study as an outpatient. discussed w rn pt VICKEY FLOR MD Nov 13, 2016 10:29
--- NOTE | 2016-11-13 10:48 | PDOC ---
Renal-Progress Notes Subjective Notes Notes NONE, FEELING BETTER History of Present Illness Hx of present illness STABLE Vitals Vitals Vital Signs Date Time Temp Pulse Resp B/P (MAP) Pulse Ox O2 Delivery O2 Flow Rate FiO2 11/13/16 07:55 99 Nasal Cannula 1.0 11/13/16 07:00 54 15 112/47 (68) 11/13/16 04:00 98.6 98.6 Weight Weight [ ] I.O. Intake and Output Intake and Output 11/13/16 07:00 Intake Total 1589 ml Output Total 588 ml Balance 1001 ml IV Total 389 ml Blood Product 550 ml Blood Product IV Normal Saline Flush 650 ml Other 0 ml Output Urine Total 588 ml Labs Labs Laboratory Tests Test 11/12/16 12:13 11/12/16 14:53 11/12/16 16:05 11/12/16 16:17 Glucose (Fingerstick) 104 mg/dL (70-99) 95 mg/dL (70-99) Heparin Anti-Xa Act, Unfractionated 0.22 IU/mL (0.30-0.70) O2 Saturation 99 % (92-99) Arterial Blood pH 7.38 (7.35-7.45) Arterial Blood pCO2 at Patient Temp 47 mmHg (35-46) Arterial Blood pO2 at Patient Temp 160 mmHg (65-108) Arterial Blood HCO3 27 mmol/L (21-28) Arterial Blood Base Excess 1 mmol/L (-3-3) FiO2 40 Test 11/12/16 22:16 11/13/16 01:10 11/13/16 06:05 11/13/16 09:10 Glucose (Fingerstick) 79 mg/dL (70-99) White Blood Count 10.5 x10^3/uL (4.0-11.0) 10.4 x10^3/uL (4.0-11.0) Red Blood Count 3.11 x10^6/uL (3.50-5.40) 2.95 x10^6/uL (3.50-5.40) Hemoglobin 9.2 g/dL (12.0-15.5) 8.8 g/dL (12.0-15.5) Hematocrit 28.2 % (36.0-47.0) 26.5 % (36.0-47.0) Mean Corpuscular Volume 91 fL (79-100) 90 fL (79-100) Mean Corpuscular Hemoglobin 30 pg (25-35) 30 pg (25-35) Mean Corpuscular Hemoglobin Concent 33 g/dL (31-37) 33 g/dL (31-37) Red Cell Distribution Width 16.4 % (11.5-14.5) 16.6 % (11.5-14.5) Platelet Count 155 x10^3/uL (140-400) 149 x10^3/uL (140-400) Heparin Anti-Xa Act, Unfractionated 0.18 IU/mL (0.30-0.70) 0.52 IU/mL (0.30-0.70) Neutrophils (%) (Auto) 64 % (31-73) Lymphocytes (%) (Auto) 25 % (24-48) Monocytes (%) (Auto) 9 % (0-9) Eosinophils (%) (Auto) 1 % (0-3) Basophils (%) (Auto) 1 % (0-3) Neutrophils # (Auto) 6.7 x10^3uL (1.8-7.7) Lymphocytes # (Auto) 2.6 x10^3/uL (1.0-4.8) Monocytes # (Auto) 0.9 x10^3/uL (0.0-1.1) Eosinophils # (Auto) 0.1 x10^3/uL (0.0-0.7) Basophils # (Auto) 0.1 x10^3/uL (0.0-0.2) Sodium Level 136 mmol/L (136-145) Potassium Level 4.4 mmol/L (3.5-5.1) Chloride Level 100 mmol/L (98-107) Carbon Dioxide Level 25 mmol/L (21-32) Anion Gap 11 (6-14) Blood Urea Nitrogen 41 mg/dL (7-20) Creatinine 5.5 mg/dL (0.6-1.0) Estimated GFR (Cockcroft-Gault) 7.8 Glucose Level 81 mg/dL (70-99) Calcium Level 8.0 mg/dL (8.5-10.1) Test 11/13/16 09:27 11/13/16 10:24 Glucose (Fingerstick) 74 mg/dL (70-99) 78 mg/dL (70-99) Micro Micro Microbiology 11/11/16 Blood Culture - Preliminary, Resulted NO GROWTH AFTER 1 DAY Review of Systems Constitutional: yes: weakness, alert, oriented Ears/Nose/Throat: Yes: no symptom reported Pulmonary: Yes no symptom reported Gastrointestional: Yes: no symptom reported Musculoskeletal: Yes: no symptom reported Psychiatric/Neurological: Yes: no symptom reported Physical Exam General Appearance: no apparent distress Skin: warm Respiratory: bilateral CTA Heart: S1S2 Abdomen: soft, bowel sounds present Genitourinary: bladder flat Neurology: alert, oriented, other (sedated) Musculoskeletal: low back pain, Other Assessment Assessment IMP RESP FAILURE S/P EXTUBATION ANEMIA ESRD CAD PLAN LHC TODAY HD TODAY UF TO SUZY JOHNSON MD Nov 13, 2016 10:48
[2016-11-13] MEDS ORDERED: IOHEXOL 300 MG/ML 100ML VIAL. ONE (10:55)
[2016-11-13] MEDS ORDERED: LIDOCAINE 2% 20 ML VIAL. ONE (10:55)
--- NOTE | 2016-11-13 11:14 | PDOC ---
MODERATE SEDATION ASSESSMENT RISKS/ALTERNATIVES Risks/Alternatives Risks and alternatives of this type of sedation and procedure discussed with: RISK/ALTERNATIVES: Patient H & P ON CHART H & P H & P on chart and reviewed for co-morbid conditions and appropriate labs. H&P ON CHART: Yes STATUS PREG STATUS ASSESSED: N/A MEDS/ALLERGIES REVIEWED Meds/Allergies Reviewed Medications and Allergies including time and route of recently administered narcotics and sedatives. MEDS/ALLERGIES REVIEWED: Yes ASA RATING ASA RATING: III AIRWAY ASSESSMENT Airway Assessment Airway patency, oral function limitations, presence of caps, crowns, dentures, partials, and ability to extend neck assessed. AIRWAY ASSESSMENT: Yes MALLAMPATI SCORE MALLAMPATI SCORE: II PRE-SEDATION ASSESSMENT PRE-SEDATION ASSESSMENT: Yes MARIAM HILL MD Nov 13, 2016 11:14
[2016-11-13] MEDS ORDERED: fentaNYL PF VIAL 100 MCG/2 ML VIAL ONE (11:17)
[2016-11-13] MEDS ORDERED: MIDAZOLAM HCL/PF 2 MG/2 ML VIAL. ONE ×2 (11:17→11:29)
[2016-11-13] MEDS ORDERED: fentaNYL PF VIAL 100 MCG/2 ML VIAL IV ONE (11:30)
[2016-11-13] MEDS ORDERED: LIDOCAINE 2% 20 ML VIAL. IJ ONE (11:30)
[2016-11-13] MEDS ORDERED: IOHEXOL 300 MG/ML 100ML VIAL. IART ONE (11:30)
[2016-11-13] MEDS ORDERED: MIDAZOLAM HCL/PF 2 MG/2 ML VIAL. IV ONE (11:30)
[2016-11-13] MEDS: CEFEPIME HCL 1 GM in IV NORMAL SALINE 50ML 50 ML IV SCH (12:58)
[2016-11-13] MEDS: AMIODARONE HCL 200 MG TABLET. PO SCH (12:58)
--- NOTE | 2016-11-13 13:10 | CARD ---
APPROVED REPORT Procedure(s) performed: Left Heart Catheterization, Coronary angiography 40Minutes of Moderate Sedation HISTORY The patient is a 66 year-old female with a history of : previous CHF, previous PCI (The PCI date was ). INDICATION The indication(s) include : arrhythmia. CASE TECHNIQUE During this case, Fluoroscopy and low osmolar contrast were used for imaging. PROCEDURE NARRATIVE The patient was brought electively to the cardiac catheterization lab. A timeout was performed confi rming the patient's name, date of , procedure, and site of procedure. All necessary personnel w ere wearing the appropriate protective equipment and radiation monitor devices. After explaining the risks and benefits of the procedure and alternatives, informed consent was obtained. (See nursing no eliezer for medications administered). The right groin was sterilely prepped and draped in the usual fas hion. The right groin was infiltrated with 10 mL of 2% lidocaine for subcutaneous anesthesia. A 6F sheath was inserted into the right femoral artery with minor difficulty due to calcification and sergey re PAD. Right and left coronary angiography was performed using a 6Fr JR4 and JL4 catheter. Left ve ntricular end diastolic pressure was obtained with a pigtail catheter and pullback was performed. Al l catheter exchanges and advancements were performed over a guidewire. At case completion the right femoral sheath was removed hemostasis was achieved with manual compression. HEMODYNAMICS: LVEDP 26 mm Hg No gradient on LV to aortic pullback. CORONARY ANGIOGRAPHY: LM is a large caliber vessel with normal angiographic appearance. LAD is a large caliber vessel with a proximal 30% stenosis, patent stent, followed by mild diffuse ir regularities of up to 30%. D1 is a small caliber vessel jailed by previous LAD stent with an ostial/proximal 80% stenosis. LCx is a small caliber non-dominant vessel with mild diffuse disease of up to 50%. OM1 is a small caliber vessel with proximal to mid 70% stenosis. RCA is a small caliber dominant vessel with heavy calcification, ostial 50% stenosis, mid 50% stenosi s and diffuse irregularities of up to 30% elsewhere. *Overall, no significant changes from prior catheterization. Conclusion 1. Three vessel coronary artery disease with patent LAD stent. 2. No significant changes compared to prior cath 2 weeks ago. Recommendations ICD tomorrow for secondary prevention of SCD. Consider evaluation in the future for PAD based on significant disease in the RCFA on limited imaging today.
[2016-11-13] MEDS ORDERED: IV NORMAL SALINE 1000ML BAG 1,000 ML IV PRN (15:38)
[2016-11-13] MEDS ORDERED: DIALYSIS PATIENT. MC PRN ×2 (15:45)
[2016-11-13] MEDS: LISINOPRIL 40 MG TABLET. PO SCH (16:00)
[2016-11-13] MEDS ORDERED: AMIODARONE 150 MG/3 ML VIAL ONE (21:00)
[2016-11-13] MEDS ORDERED: MAGNESIUM SULFATE PREMIX 1 GM/100 ML BAG. IV ONE (21:00)
[2016-11-13] MEDS: ATORVASTATIN CALCIUM 10 MG TABLET. PO SCH (21:20)
[2016-11-13] MEDS: SERTRALINE 50 MG TABLET. PO SCH (21:20)
[2016-11-13] MEDS: CINACALCET HCL 30 MG TABLET PO SCH (21:20)
[2016-11-13] MEDS: INSULIN DETEMIR 300 UNITS/3 ML INSULN.PEN. SQ SCH (21:21)
[2016-11-14] VITALS (8 sets, daily range): BP systolic 115–160; BP diastolic 46–66
[2016-11-14 03:31] LABS: HEMATOCRIT 25.2 % (36.0-47.0); HEMOGLOBIN 8.3 g/dL (12.0-15.5); RED BLOOD COUNT 2.82 x10^6/uL (3.50-5.40); RED CELL DISTRIBUTION WIDTH 16.6 % (11.5-14.5); WHITE BLOOD COUNT 7.6 x10^3/uL (4.0-11.0)
[2016-11-14 03:42] LABS: CALCIUM 8.3 mg/dL (8.5-10.1); CREATININE 3.7 mg/dL (0.6-1.0); GFR 12.3; POTASSIUM 4.4 mmol/L (3.5-5.1)
[2016-11-14] MEDS ORDERED: ONDANSETRON PF 4 MG/2 ML VIAL. IV PRN (07:00)
[2016-11-14] MEDS ORDERED: IV RINGERS,LACTATED 1000ML 1,000 ML IV SCH (07:00)
[2016-11-14] MEDS ORDERED: LIDOCAINE 1% 1 ML SYRINGE. ID PRN (07:00)
[2016-11-14] MEDS ORDERED: fentaNYL PF VIAL 100 MCG/2 ML VIAL IV PRN ×2 (07:00)
[2016-11-14] MEDS ORDERED: PROCHLORPERAZINE 10 MG/2 ML VIAL. IV PRN (07:00)
[2016-11-14] MEDS: BUDESONIDE 0.5 MG/2 ML NEBU. NEB SCH ×2 (07:54→19:52)
[2016-11-14] MEDS: IPRATRPIUM/ALBUTEROL 0.5/2.5MG 3 ML NEBU. NEB SCH ×4 (07:54→19:52)
[2016-11-14] MEDS: CALCIUM ACETATE 667 MG CAPSULE PO SCH ×3 (08:00→19:30)
[2016-11-14] MEDS: INSULIN ASPART 300 UNITS/3 ML INSULN.PEN SQ SCH ×3 (08:00→17:00)
[2016-11-14] MEDS: metOLazone 2.5 MG TABLET PO SCH (09:00)
--- NOTE | 2016-11-14 09:02 | PDOC ---
PULMONARY PROGRESS NOTES Subjective extubated on 11/12, has chest wall pain, better, has cough, sputum, no sob, has had nsvtach Vitals Vital Signs Date Time Temp Pulse Resp B/P (MAP) Pulse Ox O2 Delivery O2 Flow Rate FiO2 11/14/16 07:55 98 Room Air 11/14/16 05:35 64 15 132/52 (78) 2.0 11/14/16 04:00 98.7 98.7 Comments ros as mentioned as above other sys otherwise neg ROS: No Nausea, No Abdominal Pain General: Alert, Oriented X4 HEENT: Other (nc at perrl. shallow oropharynx. nose clear. neck, no lap, no thyromegaly) Lungs: Clear Cardiovascular: S1, S2 Abdomen: Soft, Non-tender Neuro Exam: Alert, Oriented Extremities: No Edema Skin: Warm Labs Laboratory Tests Test 11/12/16 09:05 11/12/16 12:13 11/12/16 14:53 11/12/16 16:05 Heparin Anti-Xa Act, Unfractionated 0.24 IU/mL (0.30-0.70) 0.22 IU/mL (0.30-0.70) Creatine Kinase 87 U/L (26-192) Creatine Kinase MB (Mass) 1.3 ng/mL (0.0-3.6) Creatine Kinase MB Relative Index 1.5 % (0-4) Troponin I Quantitative 0.117 ng/mL (0.000-0.055) Glucose (Fingerstick) 104 mg/dL (70-99) O2 Saturation 99 % (92-99) Arterial Blood pH 7.38 (7.35-7.45) Arterial Blood pCO2 at Patient Temp 47 mmHg (35-46) Arterial Blood pO2 at Patient Temp 160 mmHg (65-108) Arterial Blood HCO3 27 mmol/L (21-28) Arterial Blood Base Excess 1 mmol/L (-3-3) FiO2 40 Test 11/12/16 16:17 11/12/16 22:16 11/13/16 01:10 11/13/16 06:05 Glucose (Fingerstick) 95 mg/dL (70-99) 79 mg/dL (70-99) White Blood Count 10.5 x10^3/uL (4.0-11.0) 10.4 x10^3/uL (4.0-11.0) Red Blood Count 3.11 x10^6/uL (3.50-5.40) 2.95 x10^6/uL (3.50-5.40) Hemoglobin 9.2 g/dL (12.0-15.5) 8.8 g/dL (12.0-15.5) Hematocrit 28.2 % (36.0-47.0) 26.5 % (36.0-47.0) Mean Corpuscular Volume 91 fL (79-100) 90 fL (79-100) Mean Corpuscular Hemoglobin 30 pg (25-35) 30 pg (25-35) Mean Corpuscular Hemoglobin Concent 33 g/dL (31-37) 33 g/dL (31-37) Red Cell Distribution Width 16.4 % (11.5-14.5) 16.6 % (11.5-14.5) Platelet Count 155 x10^3/uL (140-400) 149 x10^3/uL (140-400) Heparin Anti-Xa Act, Unfractionated 0.18 IU/mL (0.30-0.70) Neutrophils (%) (Auto) 64 % (31-73) Lymphocytes (%) (Auto) 25 % (24-48) Monocytes (%) (Auto) 9 % (0-9) Eosinophils (%) (Auto) 1 % (0-3) Basophils (%) (Auto) 1 % (0-3) Neutrophils # (Auto) 6.7 x10^3uL (1.8-7.7) Lymphocytes # (Auto) 2.6 x10^3/uL (1.0-4.8) Monocytes # (Auto) 0.9 x10^3/uL (0.0-1.1) Eosinophils # (Auto) 0.1 x10^3/uL (0.0-0.7) Basophils # (Auto) 0.1 x10^3/uL (0.0-0.2) Sodium Level 136 mmol/L (136-145) Potassium Level 4.4 mmol/L (3.5-5.1) Chloride Level 100 mmol/L (98-107) Carbon Dioxide Level 25 mmol/L (21-32) Anion Gap 11 (6-14) Blood Urea Nitrogen 41 mg/dL (7-20) Creatinine 5.5 mg/dL (0.6-1.0) Estimated GFR (Cockcroft-Gault) 7.8 Glucose Level 81 mg/dL (70-99) Calcium Level 8.0 mg/dL (8.5-10.1) Test 11/13/16 09:10 11/13/16 09:27 11/13/16 10:24 11/13/16 10:59 Heparin Anti-Xa Act, Unfractionated 0.52 IU/mL (0.30-0.70) Glucose (Fingerstick) 74 mg/dL (70-99) 78 mg/dL (70-99) 124 mg/dL (70-99) Test 11/13/16 17:34 11/13/16 21:07 11/14/16 03:10 Glucose (Fingerstick) 127 mg/dL (70-99) 196 mg/dL (70-99) White Blood Count 7.6 x10^3/uL (4.0-11.0) Red Blood Count 2.82 x10^6/uL (3.50-5.40) Hemoglobin 8.3 g/dL (12.0-15.5) Hematocrit 25.2 % (36.0-47.0) Mean Corpuscular Volume 89 fL (79-100) Mean Corpuscular Hemoglobin 29 pg (25-35) Mean Corpuscular Hemoglobin Concent 33 g/dL (31-37) Red Cell Distribution Width 16.6 % (11.5-14.5) Platelet Count 142 x10^3/uL (140-400) Sodium Level 139 mmol/L (136-145) Potassium Level 4.4 mmol/L (3.5-5.1) Chloride Level 102 mmol/L (98-107) Carbon Dioxide Level 30 mmol/L (21-32) Anion Gap 7 (6-14) Blood Urea Nitrogen 23 mg/dL (7-20) Creatinine 3.7 mg/dL (0.6-1.0) Estimated GFR (Cockcroft-Gault) 12.3 Glucose Level 166 mg/dL (70-99) Calcium Level 8.3 mg/dL (8.5-10.1) Magnesium Level 2.0 mg/dL (1.8-2.4) Laboratory Tests Test 11/13/16 09:10 11/13/16 09:27 11/13/16 10:24 11/13/16 10:59 Heparin Anti-Xa Act, Unfractionated 0.52 IU/mL (0.30-0.70) Glucose (Fingerstick) 74 mg/dL (70-99) 78 mg/dL (70-99) 124 mg/dL (70-99) Test 11/13/16 17:34 11/13/16 21:07 11/14/16 03:10 Glucose (Fingerstick) 127 mg/dL (70-99) 196 mg/dL (70-99) White Blood Count 7.6 x10^3/uL (4.0-11.0) Red Blood Count 2.82 x10^6/uL (3.50-5.40) Hemoglobin 8.3 g/dL (12.0-15.5) Hematocrit 25.2 % (36.0-47.0) Mean Corpuscular Volume 89 fL (79-100) Mean Corpuscular Hemoglobin 29 pg (25-35) Mean Corpuscular Hemoglobin Concent 33 g/dL (31-37) Red Cell Distribution Width 16.6 % (11.5-14.5) Platelet Count 142 x10^3/uL (140-400) Sodium Level 139 mmol/L (136-145) Potassium Level 4.4 mmol/L (3.5-5.1) Chloride Level 102 mmol/L (98-107) Carbon Dioxide Level 30 mmol/L (21-32) Anion Gap 7 (6-14) Blood Urea Nitrogen 23 mg/dL (7-20) Creatinine 3.7 mg/dL (0.6-1.0) Estimated GFR (Cockcroft-Gault) 12.3 Glucose Level 166 mg/dL (70-99) Calcium Level 8.3 mg/dL (8.5-10.1) Magnesium Level 2.0 mg/dL (1.8-2.4) Medications Active Scripts Medications Dose Route/Sig Max Daily Dose Days Date Category Dose Instructions Sertraline Hcl 50 Mg Tablet 50 Mg PO QHS 11/11/16 Reported Sensipar (Cinacalcet Hcl) 30 Mg Tablet 1 Tab PO QHS 11/11/16 Reported Alayna-Oneil Rx Tablet (Vit B Cmplx 3/Fa/Vit C/Biotin) 1 Each Tablet 1 Each PO DAILY 11/11/16 Reported Cranberry Plus Vitamin C Sftgl (Cranberry Conc/Ascorbic Acid) 1 Each Capsule 1 Each PO DAILY 11/11/16 Reported Lipitor (Atorvastatin Calcium) 10 Mg Tablet 1 Tab PO DAILY 11/11/16 Reported Coricidin Hbp Tablet (Acetaminophen/Chlorpheniramine) 1 Each Tablet 1 Each PO PRN 11/11/16 Reported Ferric Citrate 210 Mg Tablet 210 Mg PO TIDWMEALS 11/11/16 Reported Alprazolam 0.25 Mg Tablet 1 Tab PO DAILY PRN 11/11/16 Reported Lisinopril 40 Mg Tablet 40 Mg PO QTUTHSASU 10/25/16 Rx Carvedilol 3.125 Mg Tablet 3.125 Mg PO BIDWMEALS 10/25/16 Rx Plavix (Clopidogrel Bisulfate) 75 Mg Tablet 75 Mg PO DAILY 10/21/16 Reported Calcium Acetate 667 Mg Tablet 2 Tab PO TIDWMEALS 02/22/15 Reported last dose was this am next dose is wiith supper Tylenol Extra Strength (Acetaminophen) 500 Mg Tablet 500 Mg PO PRN Q12HRS PRN 02/22/15 Reported not given in hospital may resume when needed Metolazone 2.5 Mg Tablet 2.5 Mg PO 3X/WEEK 10/02/14 Reported Furosemide 40 Mg Tablet 60 Mg PO PRN PRN 10/02/14 Reported not given in hospital may take as instructed by provider Potassium Chloride 20 Meq Tab.er.prt 20 Meq PO WEEKLY PRN 10/02/14 Reported was not given in hospital Gabapentin 300 Mg Capsule 300 Mg PO DAILY 10/02/14 Reported Crestor (Rosuvastatin Calcium) 5 Mg Tablet 5 Mg PO HS 08/18/13 Reported was not given in the hospital as requested will resume at home Lantus (Insulin Glargine,Hum.rec.anlog) 100 Unit/1 Ml Vial 50 Unit SQ HS 05/31/13 Reported refused to take last night stated she would take her own at home Benadryl Allergy (Diphenhydramine Hcl) 25 Mg Tablet 25 Mg PO PRN 05/31/13 Reported not given in the hospital Aspir 81 (Aspirin) 81 Mg Tablet.dr 81 Mg PO DAILY 05/31/13 Reported last dose was this am resume in am Comments cxr reviewed, l atelectasis ? infilt Impression . IMPRESSION: 1. Acute hypoxemic respiratory failure, multifactorial in etiology including acute diastolic congestive heart failure, volume overload, acute exacerbation of chronic obstructive pulmonary disease, ventricular tachycardic versus others. 2. Abnormal chest x-ray. 3. Infiltrates/atelectasis. 4. Acute exacerbation of chronic obstructive pulmonary disease. 5. Acute diastolic congestive heart failure and volume overload. 6. Ventricular tachycardia, questionable etiology. 7. Coronary artery disease status post stent on 10/24/2016. 8. Tobacco habituation. 9. End-stage renal disease, on hemodialysis. 10. Diabetes mellitus. 11. Hypertension. 12. Overweight, questionable obstructive sleep apnea-hypopnea syndrome. 13. snoring, eds, obesity, ? alejandro 14. nsvtach,, aicd today Plan . PLAN AND RECOMMENDATIONS: 1. Titrate FiO2 to keep O2 saturation 94%. 2. Bronchodilator. 3. inhaled corticosteroid. 4. aicd today 5. amio 6. Protonix for stress ulcer prophylaxis. 7. SCDs for DVT prophylaxis. start Lovenox when ok w cardiology. 8. Elevate head of bed. 9. Monitor respiratory status very closely. 10. Hemodialysis per Nephrology. 11. The findings and recommendations were discussed with RN and RT. 12. Sleep study as an outpatient. alejandro the importance of diagnosis and tx were discussed discussed w tal pt VICKEY FLOR MD Nov 14, 2016 09:02
--- NOTE | 2016-11-14 09:03 | PDOC ---
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 tobaccoism, NON SUSTAINED VTACH History of Present Illness History of Present Illness HAd another episode of non sustained vtach yesterday She feels lightheaded prior to the event and almost loses consciousness Low EF, now planned for AICD today\ Seen in ICU today, no sxs VS so far ok PLAn: AICD later REst CPM HD per renal (creat 3.7) Vitals Vitals Vital Signs Date Time Temp Pulse Resp B/P (MAP) Pulse Ox O2 Delivery O2 Flow Rate FiO2 11/14/16 07:55 98 Room Air 11/14/16 05:35 64 15 132/52 (78) 2.0 11/14/16 04:00 98.7 98.7 Physical Exam General: Alert, Oriented X3, Cooperative, No acute distress Heart: Regular rate Lungs: Crackles Abdomen: Normal bowel sounds, Soft, No tenderness Extremities: No cyanosis, Other (1+ bilateral LE pitting edema) Skin: No breakdown Labs LABS Laboratory Tests Test 11/13/16 09:10 11/13/16 09:27 11/13/16 10:24 11/13/16 10:59 Heparin Anti-Xa Act, Unfractionated 0.52 IU/mL (0.30-0.70) Glucose (Fingerstick) 74 mg/dL (70-99) 78 mg/dL (70-99) 124 mg/dL (70-99) Test 11/13/16 17:34 11/13/16 21:07 11/14/16 03:10 Glucose (Fingerstick) 127 mg/dL (70-99) 196 mg/dL (70-99) White Blood Count 7.6 x10^3/uL (4.0-11.0) Red Blood Count 2.82 x10^6/uL (3.50-5.40) Hemoglobin 8.3 g/dL (12.0-15.5) Hematocrit 25.2 % (36.0-47.0) Mean Corpuscular Volume 89 fL (79-100) Mean Corpuscular Hemoglobin 29 pg (25-35) Mean Corpuscular Hemoglobin Concent 33 g/dL (31-37) Red Cell Distribution Width 16.6 % (11.5-14.5) Platelet Count 142 x10^3/uL (140-400) Sodium Level 139 mmol/L (136-145) Potassium Level 4.4 mmol/L (3.5-5.1) Chloride Level 102 mmol/L (98-107) Carbon Dioxide Level 30 mmol/L (21-32) Anion Gap 7 (6-14) Blood Urea Nitrogen 23 mg/dL (7-20) Creatinine 3.7 mg/dL (0.6-1.0) Estimated GFR (Cockcroft-Gault) 12.3 Glucose Level 166 mg/dL (70-99) Calcium Level 8.3 mg/dL (8.5-10.1) Magnesium Level 2.0 mg/dL (1.8-2.4) Review of Systems Review of Systems denies 14 pt currently Assessment and Plan Assessmemt and Plan Problems Medical Problems: (1) Fluid overload Status: Acute (2) Hypoxia Status: Acute (3) Pneumonia Status: Acute (4) SIRS (systemic inflammatory response syndrome) Status: Acute Problems: Comment Review of Relevant I have reviewed the following items ashley (where applicable) has been applied. Labs Laboratory Tests Test 11/12/16 09:05 11/12/16 12:13 11/12/16 14:53 11/12/16 16:05 Heparin Anti-Xa Act, Unfractionated 0.24 IU/mL (0.30-0.70) 0.22 IU/mL (0.30-0.70) Creatine Kinase 87 U/L (26-192) Creatine Kinase MB (Mass) 1.3 ng/mL (0.0-3.6) Creatine Kinase MB Relative Index 1.5 % (0-4) Troponin I Quantitative 0.117 ng/mL (0.000-0.055) Glucose (Fingerstick) 104 mg/dL (70-99) O2 Saturation 99 % (92-99) Arterial Blood pH 7.38 (7.35-7.45) Arterial Blood pCO2 at Patient Temp 47 mmHg (35-46) Arterial Blood pO2 at Patient Temp 160 mmHg (65-108) Arterial Blood HCO3 27 mmol/L (21-28) Arterial Blood Base Excess 1 mmol/L (-3-3) FiO2 40 Test 11/12/16 16:17 11/12/16 22:16 11/13/16 01:10 11/13/16 06:05 Glucose (Fingerstick) 95 mg/dL (70-99) 79 mg/dL (70-99) White Blood Count 10.5 x10^3/uL (4.0-11.0) 10.4 x10^3/uL (4.0-11.0) Red Blood Count 3.11 x10^6/uL (3.50-5.40) 2.95 x10^6/uL (3.50-5.40) Hemoglobin 9.2 g/dL (12.0-15.5) 8.8 g/dL (12.0-15.5) Hematocrit 28.2 % (36.0-47.0) 26.5 % (36.0-47.0) Mean Corpuscular Volume 91 fL (79-100) 90 fL (79-100) Mean Corpuscular Hemoglobin 30 pg (25-35) 30 pg (25-35) Mean Corpuscular Hemoglobin Concent 33 g/dL (31-37) 33 g/dL (31-37) Red Cell Distribution Width 16.4 % (11.5-14.5) 16.6 % (11.5-14.5) Platelet Count 155 x10^3/uL (140-400) 149 x10^3/uL (140-400) Heparin Anti-Xa Act, Unfractionated 0.18 IU/mL (0.30-0.70) Neutrophils (%) (Auto) 64 % (31-73) Lymphocytes (%) (Auto) 25 % (24-48) Monocytes (%) (Auto) 9 % (0-9) Eosinophils (%) (Auto) 1 % (0-3) Basophils (%) (Auto) 1 % (0-3) Neutrophils # (Auto) 6.7 x10^3uL (1.8-7.7) Lymphocytes # (Auto) 2.6 x10^3/uL (1.0-4.8) Monocytes # (Auto) 0.9 x10^3/uL (0.0-1.1) Eosinophils # (Auto) 0.1 x10^3/uL (0.0-0.7) Basophils # (Auto) 0.1 x10^3/uL (0.0-0.2) Sodium Level 136 mmol/L (136-145) Potassium Level 4.4 mmol/L (3.5-5.1) Chloride Level 100 mmol/L (98-107) Carbon Dioxide Level 25 mmol/L (21-32) Anion Gap 11 (6-14) Blood Urea Nitrogen 41 mg/dL (7-20) Creatinine 5.5 mg/dL (0.6-1.0) Estimated GFR (Cockcroft-Gault) 7.8 Glucose Level 81 mg/dL (70-99) Calcium Level 8.0 mg/dL (8.5-10.1) Test 11/13/16 09:10 11/13/16 09:27 11/13/16 10:24 11/13/16 10:59 Heparin Anti-Xa Act, Unfractionated 0.52 IU/mL (0.30-0.70) Glucose (Fingerstick) 74 mg/dL (70-99) 78 mg/dL (70-99) 124 mg/dL (70-99) Test 11/13/16 17:34 11/13/16 21:07 11/14/16 03:10 Glucose (Fingerstick) 127 mg/dL (70-99) 196 mg/dL (70-99) White Blood Count 7.6 x10^3/uL (4.0-11.0) Red Blood Count 2.82 x10^6/uL (3.50-5.40) Hemoglobin 8.3 g/dL (12.0-15.5) Hematocrit 25.2 % (36.0-47.0) Mean Corpuscular Volume 89 fL (79-100) Mean Corpuscular Hemoglobin 29 pg (25-35) Mean Corpuscular Hemoglobin Concent 33 g/dL (31-37) Red Cell Distribution Width 16.6 % (11.5-14.5) Platelet Count 142 x10^3/uL (140-400) Sodium Level 139 mmol/L (136-145) Potassium Level 4.4 mmol/L (3.5-5.1) Chloride Level 102 mmol/L (98-107) Carbon Dioxide Level 30 mmol/L (21-32) Anion Gap 7 (6-14) Blood Urea Nitrogen 23 mg/dL (7-20) Creatinine 3.7 mg/dL (0.6-1.0) Estimated GFR (Cockcroft-Gault) 12.3 Glucose Level 166 mg/dL (70-99) Calcium Level 8.3 mg/dL (8.5-10.1) Magnesium Level 2.0 mg/dL (1.8-2.4) Laboratory Tests Test 11/13/16 09:10 11/13/16 09:27 11/13/16 10:24 11/13/16 10:59 Heparin Anti-Xa Act, Unfractionated 0.52 IU/mL (0.30-0.70) Glucose (Fingerstick) 74 mg/dL (70-99) 78 mg/dL (70-99) 124 mg/dL (70-99) Test 11/13/16 17:34 11/13/16 21:07 11/14/16 03:10 Glucose (Fingerstick) 127 mg/dL (70-99) 196 mg/dL (70-99) White Blood Count 7.6 x10^3/uL (4.0-11.0) Red Blood Count 2.82 x10^6/uL (3.50-5.40) Hemoglobin 8.3 g/dL (12.0-15.5) Hematocrit 25.2 % (36.0-47.0) Mean Corpuscular Volume 89 fL (79-100) Mean Corpuscular Hemoglobin 29 pg (25-35) Mean Corpuscular Hemoglobin Concent 33 g/dL (31-37) Red Cell Distribution Width 16.6 % (11.5-14.5) Platelet Count 142 x10^3/uL (140-400) Sodium Level 139 mmol/L (136-145) Potassium Level 4.4 mmol/L (3.5-5.1) Chloride Level 102 mmol/L (98-107) Carbon Dioxide Level 30 mmol/L (21-32) Anion Gap 7 (6-14) Blood Urea Nitrogen 23 mg/dL (7-20) Creatinine 3.7 mg/dL (0.6-1.0) Estimated GFR (Cockcroft-Gault) 12.3 Glucose Level 166 mg/dL (70-99) Calcium Level 8.3 mg/dL (8.5-10.1) Magnesium Level 2.0 mg/dL (1.8-2.4) Microbiology 11/11/16 Blood Culture - Preliminary, Resulted NO GROWTH AFTER 2 DAYS Medications Current Medications Sodium Chloride 1,000 ml @ 100 mls/hr Q10H IV Last administered on 11/11/16 12:04; Start 11/11/16 at 11:40; Stop 11/11/16 at 21:39; Status DC Iohexol (Omnipaque 300 Mg/ml) 75 ml 1X ONCE IV Last administered on 11/11/16 12:45; Start 11/11/16 at 12:45; Stop 11/11/16 at 12:46; Status DC Info (Do NOT chart on this entry -- for MONITORING) 1 each PRN DAILY PRN MC SEE COMMENTS; Start 11/11/16 at 13:00; Stop 11/13/16 at 12:59; Status DC Ondansetron HCl (Zofran) 4 mg PRN Q6HRS PRN IV NAUSEA/VOMITING; Start 11/11/16 at 13:30 Prochlorperazine Edisylate (Compazine) 10 mg PRN Q6HRS PRN IV NAUSEA/VOMITING, 2nd choice; Start 11/11/16 at 13:30 Prochlorperazine (Compazine) 25 mg PRN Q12HR PRN TN NAUSEA/VOMITING; Start at 13:30 Al Hydroxide/Mg Hydroxide (Mylanta Plus Xs) 30 ml PRN Q3HRS PRN PO HEARTBURN / GAS; Start 11/11/16 at 13:30; Status Cancel Calcium Carbonate/ Glycine (Tums) 500 mg PRN Q3HRS PRN PO UPSET STOMACH; Start 11/11/16 at 13:30 Acetaminophen/ Hydrocodone Bitart (Lortab 5/325) 1 tab PRN Q4HRS PRN PO MILD PAIN; Start 11/11/16 at 13:30 Acetaminophen (Tylenol) 650 mg PRN Q6HRS PRN PO Headaches, Temp > 101.5F; Start 11/11/16 at 13:30 Heparin Sodium (Porcine) (Heparin Sq) 5,000 unit Q8HRS SQ Last administered on 11/11/16 22:05; Start 11/11/16 at 22:00; Stop 11/12/16 at 01:51; Status DC Fentanyl Citrate (Fentanyl 2ml Vial) 50 mcg PRN Q2HR PRN IV pain; Start at 13:30 Albuterol/ Ipratropium (Duoneb) 3 ml RTQID NEB Last administered on 11/14/16 07:54; Start 11/11/16 at 16:00 Nicotine (Nicoderm Cq 21mg) 1 patch PRN DAILY PRN TD SMOKING CESSATION; Start 11/11/16 at 13:30 Guaifenesin (Robitussin Dm) 10 ml PRN Q6HRS PRN PO COUGH; Start 11/11/16 at 13: 30 Acetaminophen (Tylenol) 500 mg PRN Q12HRS PRN PO MILD PAIN, 1st choice; Start 11/11/16 at 13:45 Alprazolam (Xanax) 0.25 mg DAILY PRN PO ANXIETY / AGITATION; Start 11/11/16 at 13:45 Aspirin (Ecotrin) 81 mg DAILYWBKFT PO Last administered on 11/13/16 09:22; Start 11/12/16 at 08:00 Atorvastatin Calcium (Lipitor) 10 mg QHS PO Last administered on 11/13/16 21: 20; Start 11/11/16 at 21:00 Carvedilol (Coreg) 3.125 mg BIDWMEALS PO Last administered on 11/11/16 22:06; Start 11/11/16 at 17:00; Stop 11/12/16 at 10:41; Status DC Cinacalcet (Sensipar) 30 mg QHS PO Last administered on 11/13/16 21:20; Start 11/11/16 at 21:00 Clopidogrel Bisulfate (Plavix) 75 mg DAILYWBKFT PO Last administered on 09:22; Start 11/12/16 at 08:00 Furosemide (Lasix) 60 mg DAILY PRN PO SEE COMMENTS Last administered on 09:34; Start 11/11/16 at 13:45 Lisinopril (Prinivil) 40 mg QTUTHSASU PO Last administered on 11/11/16 22:06; Start 11/11/16 at 16:00 Metolazone (Zaroxolyn) 2.5 mg 3X/WEEK PO ; Start 11/12/16 at 09:00 Potassium Chloride (Klor-Con) 20 meq WEEKLY PRN PO SEE COMMENTS; Start at 13:45 Sertraline HCl (Zoloft) 50 mg QHS PO Last administered on 11/13/16 21:20; Start 11/11/16 at 21:00 Calcium Acetate (Phoslo) 1,334 mg TIDWMEALS PO Last administered on 11/13/16 21:20; Start 11/11/16 at 17:00 Non-Formulary Medication 1 each DAILY PO ; Start 11/12/16 at 09:00; Status UNV Non-Formulary Medication 210 mg TIDWMEALS PO ; Start 11/11/16 at 17:00; Status UNV Gabapentin (Neurontin) 300 mg DAILY PO Last administered on 11/13/16 09:22; Start 11/12/16 at 09:00 Insulin Detemir (Levemir) 50 units QHS SQ Last administered on 11/13/16 21:21 ; Start 11/11/16 at 21:00 Non-Formulary Medication 5 mg HS PO ; Start 11/11/16 at 21:00; Status UNV Vitamin B Complex/ Vitamin C (Alayna-Oneil) 1 tab DAILY PO Last administered on 09:22; Start 11/12/16 at 09:00 Insulin Aspart (NovoLOG) 0-9 UNITS TIDWMEALS SQ ; Start 11/11/16 at 17:00 Dextrose (Dextrose 50%-Water Syringe) 12.5 gm PRN Q15MIN PRN IV SEE COMMENTS Last administered on 11/13/16 10:28; Start 11/11/16 at 13:45 Sodium Chloride 1,000 ml @ 100 mls/hr Q10H IV Last administered on 11/12/16 06:05; Start 11/11/16 at 13:49; Stop 11/11/16 at 23:48; Status DC Albuterol/ Ipratropium (Duoneb) 3 ml 1X ONCE NEB Last administered on 14:56; Start 11/11/16 at 14:00; Stop 11/11/16 at 14:31; Status DC Methylprednisolone Sodium Succinate (SOLU-Medrol 125MG VIAL) 125 mg 1X ONCE IV Last administered on 11/11/16 14:58; Start 11/11/16 at 14:30; Stop 11/11/16 at 14:32; Status DC Cefepime HCl 1 gm/ Sodium Chloride 50 ml @ 100 mls/hr Q24H IV Last administered on 11/13/16 12:58; Start 11/12/16 at 14:00 Vancomycin HCl 1.5 gm/Sodium Chloride 500 ml @ 250 mls/hr 1X ONCE IV ; Start 11/11/16 at 14:30; Stop 11/11/16 at 16:29; Status UNV Vancomycin HCl 2 gm/Sodium Chloride 500 ml @ 250 mls/hr ONCE ONCE IV Last administered on 11/11/16 20:30; Start 11/11/16 at 14:30; Stop 11/11/16 at 16:29 ; Status DC Cefepime HCl 1 gm/ Sodium Chloride 50 ml @ 100 mls/hr ONCE ONCE IV Last administered on 11/11/16 15:01; Start 11/11/16 at 14:45; Stop 11/11/16 at 15:14 ; Status DC Amiodarone HCl 150 mg/Dextrose 103 ml @ 618 mls/hr 1X ONCE IV ; Start at 01:30; Stop 11/12/16 at 01:39; Status DC Amiodarone HCl 900 mg/Dextrose 518 ml @ 0 mls/hr CONT PRN IV SEE I/O RECORD Last administered on 11/12/16 06:07; Start 11/12/16 at 01:45; Stop 11/12/16 at 06:07; Status DC Etomidate (Amidate) 20 mg 1X ONCE IV ; Start 11/12/16 at 01:15; Stop 11/12/16 at 01:16; Status DC Rocuronium Worden (Zemuron) 100 mg 1X ONCE IV ; Start 11/12/16 at 01:15; Stop 11/12/16 at 01:16; Status DC Etomidate (Amidate) 20 mg STK-MED ONCE IV ; Start 11/12/16 at 01:03; Stop at 01:04; Status DC Propofol 100 ml @ As Directed STK-MED ONCE IV ; Start 11/12/16 at 01:17; Stop 11/12/16 at 01:18; Status DC Propofol 100 ml @ 0 mls/hr CONT PRN IV SEE I/O RECORD; Start 11/12/16 at 01:30 ; Stop 11/13/16 at 09:06; Status DC Rocuronium Worden (Zemuron) 50 mg STK-MED ONCE .ROUTE ; Start 11/12/16 at 01:33 ; Stop 11/12/16 at 01:34; Status DC Heparin Sodium (Porcine) (Heparin Sodium) 4,000 unit 1X ONCE IV Last administered on 11/12/16 02:56; Start 11/12/16 at 02:00; Stop 11/12/16 at 02:01 ; Status DC Heparin Sodium/ Dextrose 500 ml @ 0 mls/hr CONT PRN IV SEE I/O RECORD Last administered on 11/13/16 04:00; Start 11/12/16 at 01:45 Heparin Sodium (Porcine) (Heparin Sodium) 1,750 unit PRN Q6HRS PRN IV FOR UFH LEVEL LESS THAN 0.2 Last administered on 11/13/16 03:17; Start 11/12/16 at 01: 45 Info (Anti-Coagulation Monitoring By Pharmacy) 1 each PRN DAILY PRN MC SEE COMMENTS Last administered on 11/13/16 08:04; Start 11/12/16 at 02:00 Pantoprazole Sodium (Protonix) 40 mg DAILYAC PO Last administered on 11/13/16 09:22; Start 11/12/16 at 10:30 Budesonide (Pulmicort) 0.5 mg RTBID NEB Last administered on 11/14/16 07:54; Start 11/12/16 at 10:30 Amiodarone HCl 900 mg/Dextrose 518 ml @ 33.33 mls/ hr CONT PRN IV SEE I/O RECORD Last administered on 11/12/16 13:45; Start 11/12/16 at 10:30; Stop 11/12 at 16:29; Status DC Amiodarone HCl 900 mg/Dextrose 518 ml @ 16.67 mls/ hr CONT PRN IV SEE I/O RECORD; Start 11/12/16 at 10:30; Stop 11/13/16 at 04:29; Status UNV Darbepoetin Jaskaran (Aranesp) 60 mcg WEEKLYHS SQ Last administered on 11/12/16 22 :14; Start 11/12/16 at 21:00 Hydralazine HCl (Apresoline) 10 mg PRN Q4HRS PRN IVP ELEVATED BP, SEE COMMENTS ; Start 11/12/16 at 13:15 Amiodarone HCl (Cordarone) 150 mg STK-MED ONCE .ROUTE ; Start 11/13/16 at 21:00 ; Stop 11/13/16 at 21:01; Status DC Magnesium Sulfate/ Dextrose (Magnesium Sulfate PREMIX 1GM) 1 gm STK-MED ONCE IV ; Start 11/13/16 at 21:00; Stop 11/13/16 at 21:01; Status DC Amiodarone HCl (Cordarone) 200 mg DAILY PO Last administered on 11/13/16 12:58 ; Start 11/13/16 at 10:00 Iohexol (Omnipaque 300 Mg/ml) 100 ml STK-MED ONCE .ROUTE ; Start 11/13/16 at 10: 55; Stop 11/13/16 at 10:56; Status DC Heparin Sodium/ Sodium Chloride 1,000 ml @ As Directed STK-MED ONCE .ROUTE ; Start 11/13/16 at 10:55; Stop 11/13/16 at 10:56; Status DC Lidocaine HCl 20 ml STK-MED ONCE .ROUTE ; Start 11/13/16 at 10:55; Stop at 10:56; Status DC Fentanyl Citrate (Fentanyl 2ml Vial) 100 mcg STK-MED ONCE .ROUTE ; Start at 11:17; Stop 11/13/16 at 11:18; Status DC Midazolam HCl (Versed) 2 mg STK-MED ONCE .ROUTE ; Start 11/13/16 at 11:17; Stop 11/13/16 at 11:18; Status DC Heparin Sodium/ Sodium Chloride 1,000 unit 1X ONCE IART Last administered on 11:59; Start 11/13/16 at 11:30; Stop 11/13/16 at 11:31; Status DC Midazolam HCl (Versed) 2 mg 1X ONCE IV Last administered on 11/13/16 11:59; Start 11/13/16 at 11:30; Stop 11/13/16 at 11:31; Status DC Fentanyl Citrate (Fentanyl 2ml Vial) 100 mcg 1X ONCE IV Last administered on 12:00; Start 11/13/16 at 11:30; Stop 11/13/16 at 11:31; Status DC Iohexol (Omnipaque 300 Mg/ml) 100 ml 1X ONCE IART Last administered on 12:00; Start 11/13/16 at 11:30; Stop 11/13/16 at 11:31; Status DC Lidocaine HCl 20 ml 1X ONCE IJ Last administered on 11/13/16 11:58; Start at 11:30; Stop 11/13/16 at 11:31; Status DC Midazolam HCl (Versed) 2 mg STK-MED ONCE .ROUTE ; Start 11/13/16 at 11:29; Stop 11/13/16 at 11:30; Status DC Ondansetron HCl (Zofran) 4 mg PRN Q6HRS PRN IV NAUSEA/VOMITING; Start 11/14/16 at 07:00; Stop 11/15/16 at 06:59 Fentanyl Citrate (Fentanyl 2ml Vial) 25 mcg PRN Q5MIN PRN IV MILD PAIN; Start 11/14/16 at 07:00; Stop 11/15/16 at 06:59 Fentanyl Citrate (Fentanyl 2ml Vial) 50 mcg PRN Q5MIN PRN IV MODERATE PAIN; Start 11/14/16 at 07:00; Stop 11/15/16 at 06:59 Ringer's Solution 1,000 ml @ 30 mls/hr Q24H IV ; Start 11/14/16 at 07:00; Stop 11/14/16 at 18:59 Lidocaine HCl 2 ml PRN 1X PRN ID PRIOR TO IV START; Start 11/14/16 at 07:00; Stop 11/15/16 at 06:59 Prochlorperazine Edisylate (Compazine) 5 mg PACU PRN PRN IV NAUSEA, MRX1; Start 11/14/16 at 07:00; Stop 11/15/16 at 06:59 Sodium Chloride 1,000 ml @ 1,000 mls/hr Q1H PRN IV hypotension; Start 11/13/16 at 15:38; Stop 11/13/16 at 21:37; Status DC Info (PHARMACY MONITORING -- do not chart) 1 each PRN DAILY PRN MC SEE COMMENTS ; Start 11/13/16 at 15:45 Info (PHARMACY MONITORING -- do not chart) 1 each PRN DAILY PRN MC SEE COMMENTS ; Start 11/13/16 at 15:45; Status UNV Cefazolin Sodium 1 gm/Sodium Chloride 50 ml @ 100 mls/hr 1X ONCE IV ; Start at 06:00; Stop 11/14/16 at 06:29; Status DC Metoprolol Tartrate (Lopressor) 25 mg BID PO ; Start 11/14/16 at 09:30 Active Scripts Active Lisinopril 40 Mg Tablet 40 Mg PO QTUTHSASU Carvedilol 3.125 Mg Tablet 3.125 Mg PO BIDWMEALS Reported Sertraline Hcl 50 Mg Tablet 50 Mg PO QHS Sensipar (Cinacalcet Hcl) 30 Mg Tablet 1 Tab PO QHS Alayna-Oneil Rx Tablet (Vit B Cmplx 3/Fa/Vit C/Biotin) 1 Each Tablet 1 Each PO DAILY Cranberry Plus Vitamin C Sftgl (Cranberry Conc/Ascorbic Acid) 1 Each Capsule 1 Each PO DAILY Lipitor (Atorvastatin Calcium) 10 Mg Tablet 1 Tab PO DAILY Coricidin Hbp Tablet (Acetaminophen/Chlorpheniramine) 1 Each Tablet 1 Each PO PRN Ferric Citrate 210 Mg Tablet 210 Mg PO TIDWMEALS Alprazolam 0.25 Mg Tablet 1 Tab PO DAILY PRN Plavix (Clopidogrel Bisulfate) 75 Mg Tablet 75 Mg PO DAILY Calcium Acetate 667 Mg Tablet 2 Tab PO TIDWMEALS last dose was this am next dose is wiith supper Tylenol Extra Strength (Acetaminophen) 500 Mg Tablet 500 Mg PO PRN Q12HRS PRN not given in hospital may resume when needed Metolazone 2.5 Mg Tablet 2.5 Mg PO 3X/WEEK Furosemide 40 Mg Tablet 60 Mg PO PRN PRN not given in hospital may take as instructed by provider Potassium Chloride 20 Meq Tab.er.prt 20 Meq PO WEEKLY PRN was not given in hospital Gabapentin 300 Mg Capsule 300 Mg PO DAILY Crestor (Rosuvastatin Calcium) 5 Mg Tablet 5 Mg PO HS was not given in the hospital as requested will resume at home Lantus (Insulin Glargine,Hum.rec.anlog) 100 Unit/1 Ml Vial 50 Unit SQ HS refused to take last night stated she would take her own at home Benadryl Allergy (Diphenhydramine Hcl) 25 Mg Tablet 25 Mg PO PRN not given in the hospital Aspir 81 (Aspirin) 81 Mg Tablet.dr 81 Mg PO DAILY last dose was this am resume in am Vitals/I & O Vital Sign - Last 24 Hours 11/13/16 11/13/16 11/13/16 11/13/16 10:00 11:00 12:00 12:00 Pulse 51 52 Resp 12 16 14 B/P (MAP) 112/47 (68) Pulse Ox 97 97 92 O2 Delivery Nasal Cannula Nasal Cannula Room Air Nasal Cannula O2 Flow Rate 1.0 1.0 1.0 11/13/16 11/13/16 11/13/16 11/13/16 12:20 12:58 13:00 14:00 Temp 98.2 98.2 Pulse 57 60 55 Resp 18 14 B/P (MAP) 127/57 118/81 (93) 99/43 (61) Pulse Ox 96 98 98 O2 Delivery Nasal Cannula Nasal Cannula Nasal Cannula O2 Flow Rate 2.0 1.0 1.0 11/13/16 11/13/16 11/13/16 11/13/16 15:00 15:50 16:00 16:00 Pulse 59 59 Resp 13 B/P (MAP) 98/44 (62) 93/44 Pulse Ox 99 99 O2 Delivery Nasal Cannula Nasal Cannula Nasal Cannula O2 Flow Rate 1.0 2.0 1.0 11/13/16 11/13/16 11/13/16 11/13/16 16:00 17:00 18:00 20:00 Temp 98.6 98.6 Pulse 59 56 58 59 Resp 20 18 18 15 B/P (MAP) 93/44 (60) 116/56 (76) 129/55 (79) 138/64 (88) Pulse Ox 100 100 100 100 O2 Delivery Nasal Cannula Nasal Cannula Nasal Cannula Room Air O2 Flow Rate 1.0 1.0 1.0 11/13/16 11/13/16 11/13/16 11/14/16 20:00 20:13 20:13 00:00 Temp 99.3 99.3 Pulse 65 Resp 15 B/P (MAP) 133/46 (75) Pulse Ox 100 O2 Delivery Nasal Cannula Room Air Room Air Room Air O2 Flow Rate 1.0 11/14/16 11/14/16 11/14/16 11/14/16 02:00 02:20 04:00 05:35 Temp 98.7 98.7 Pulse 64 64 64 64 Resp 15 15 15 B/P (MAP) 115/46 (69) 132/52 (78) Pulse Ox 85 98 98 98 O2 Delivery Room Air Nasal Cannula Nasal Cannula Nasal Cannula O2 Flow Rate 2.0 2.0 2.0 11/14/16 07:55 Pulse Ox 98 O2 Delivery Room Air Intake and Output 11/13/16 11/13/16 11/14/16 15:00 23:00 07:00 Intake Total 450 ml 100 ml 300 ml Output Total 370 ml 65 ml 225 ml Balance 80 ml 35 ml 75 ml MICHELLE DOWD MD Nov 14, 2016 09:03
[2016-11-14] MEDS: FOLIC/VIT B COMP W-C (RENAL) TABLET. PO SCH (09:17)
[2016-11-14] MEDS: CLOPIDOGREL BISULFATE 75 MG TABLET PO SCH (09:18)
[2016-11-14] MEDS: GABAPENTIN 300 MG CAPSULE. PO SCH (09:18)
[2016-11-14] MEDS: PANTOPRAZOLE 40 MG TABLET.DR. PO SCH (09:18)
[2016-11-14] MEDS: ASPIRIN ENTERIC COATED 81 MG TABLET.DR. PO SCH (09:18)
[2016-11-14] MEDS: AMIODARONE HCL 200 MG TABLET. PO SCH (09:18)
[2016-11-14] MEDS: DEXTROSE 50% 25 GM / 50ML DISP.SYRIN. IV PRN (09:25)
[2016-11-14] MEDS: METOPROLOL TART IMMED RELEASE 25 MG TABLET. PO SCH ×2 (09:44→21:19)
[2016-11-14] MEDS: ANTI-COAG MONITOR BY PHARMACY. MC PRN ×2 (11:05→11:07)
--- NOTE | 2016-11-14 11:29 | PDOC ---
Renal-Progress Notes Subjective Notes Notes FEELING BETTER History of Present Illness Hx of present illness STABLE Vitals Vitals Vital Signs Date Time Temp Pulse Resp B/P (MAP) Pulse Ox O2 Delivery O2 Flow Rate FiO2 11/14/16 09:44 62 128/53 11/14/16 08:00 Nasal Cannula 1.0 11/14/16 08:00 99.0 15 99 99.0 Weight Weight [ ] I.O. Intake and Output Intake and Output 11/14/16 07:00 Intake Total 850 ml Output Total 660 ml Balance 190 ml Intake Oral 500 ml IV Total 50 ml Other 300 ml Output Urine Total 660 ml # Voids 1 Labs Labs Laboratory Tests Test 11/13/16 17:34 11/13/16 21:07 11/14/16 03:10 Glucose (Fingerstick) 127 mg/dL (70-99) 196 mg/dL (70-99) White Blood Count 7.6 x10^3/uL (4.0-11.0) Red Blood Count 2.82 x10^6/uL (3.50-5.40) Hemoglobin 8.3 g/dL (12.0-15.5) Hematocrit 25.2 % (36.0-47.0) Mean Corpuscular Volume 89 fL (79-100) Mean Corpuscular Hemoglobin 29 pg (25-35) Mean Corpuscular Hemoglobin Concent 33 g/dL (31-37) Red Cell Distribution Width 16.6 % (11.5-14.5) Platelet Count 142 x10^3/uL (140-400) Sodium Level 139 mmol/L (136-145) Potassium Level 4.4 mmol/L (3.5-5.1) Chloride Level 102 mmol/L (98-107) Carbon Dioxide Level 30 mmol/L (21-32) Anion Gap 7 (6-14) Blood Urea Nitrogen 23 mg/dL (7-20) Creatinine 3.7 mg/dL (0.6-1.0) Estimated GFR (Cockcroft-Gault) 12.3 Glucose Level 166 mg/dL (70-99) Calcium Level 8.3 mg/dL (8.5-10.1) Magnesium Level 2.0 mg/dL (1.8-2.4) Micro Micro Microbiology 11/11/16 Blood Culture - Preliminary, Resulted NO GROWTH AFTER 2 DAYS Review of Systems Constitutional: yes: weakness, alert, oriented Ears/Nose/Throat: Yes: no symptom reported Pulmonary: Yes no symptom reported Gastrointestional: Yes: no symptom reported Musculoskeletal: Yes: no symptom reported Psychiatric/Neurological: Yes: no symptom reported Physical Exam General Appearance: no apparent distress Skin: warm Respiratory: bilateral CTA Heart: S1S2 Abdomen: soft, bowel sounds present Genitourinary: bladder flat Neurology: alert, oriented, other (sedated) Musculoskeletal: low back pain, Other Assessment Assessment IMP RESP FAILURE S/P EXTUBATION ANEMIA ESRD CAD TACHYARRHYTHMIAS PLAN HD TOMORROW AICD PENDING SUZY HOWARD MD Nov 14, 2016 11:29
[2016-11-14] MEDS: CEFEPIME HCL 1 GM in IV NORMAL SALINE 50ML 50 ML IV SCH (14:00)
[2016-11-14] MEDS ORDERED: LIDOCAINE 1% Multi-Dose 20 ML VIAL. ONE (14:54)
[2016-11-14] MEDS ORDERED: fentaNYL PF VIAL 250 MCG/5 ML VIAL ONE (14:55)
[2016-11-14] MEDS ORDERED: MIDAZOLAM HCL/PF 5 MG/5 ML VIAL. ONE (14:55)
[2016-11-14] MEDS ORDERED: LIDOCAINE 2% 20 ML VIAL. ONE (14:57)
[2016-11-14] MEDS ORDERED: BACITRACIN 50,000 UNIT in IV NORMAL SALINE 250ML 250 ML IRR ONE (15:00)
[2016-11-14] MEDS ORDERED: LIDOCAINE 2% 20 ML VIAL. IJ ONE (15:30)
[2016-11-14] MEDS ORDERED: MIDAZOLAM HCL/PF 5 MG/5 ML VIAL. IV ONE (15:30)
[2016-11-14] MEDS ORDERED: fentaNYL PF VIAL 100 MCG/2 ML VIAL IV ONE (15:30)
--- NOTE | 2016-11-14 16:04 | PDOC ---
MODERATE SEDATION ASSESSMENT RISKS/ALTERNATIVES Risks/Alternatives Risks and alternatives of this type of sedation and procedure discussed with: RISK/ALTERNATIVES: Patient H & P ON CHART H & P H & P on chart and reviewed for co-morbid conditions and appropriate labs. H&P ON CHART: Yes STATUS PREG STATUS ASSESSED: N/A MEDS/ALLERGIES REVIEWED Meds/Allergies Reviewed Medications and Allergies including time and route of recently administered narcotics and sedatives. MEDS/ALLERGIES REVIEWED: Yes ASA RATING ASA RATING: II AIRWAY ASSESSMENT Airway Assessment Airway patency, oral function limitations, presence of caps, crowns, dentures, partials, and ability to extend neck assessed. AIRWAY ASSESSMENT: Yes MALLAMPATI SCORE MALLAMPATI SCORE: II PRE-SEDATION ASSESSMENT PRE-SEDATION ASSESSMENT: Yes CARRIE STINSON MD Nov 14, 2016 16:04
--- NOTE | 2016-11-14 16:21 | CARD ---
APPROVED REPORT EXAM Successful implantation of Biotronik dual-chamber automatic implantable cardioverter defibrillator [facility] defibrillation threshold measurement of the time of implantation INDICATIONS Secondary prevention of sudden cardiac in a patient with ventricular tachycardia and cardiac ar rest PROCEDURE After explaining the risks, benefits, and alternative options, informed consent was obtained from the patient. The patient was brought to the cardiac catheterization lab and the left chest and shoulder were prepp ed and draped in the usual fashion. 30 mL of 2% lidocaine was infiltrated into the skin and subcutaneous tissues for local anesthesia. An incision was made over the left infraclavicular fossa and using blunt dissection and cautery a pocke t was created. Venous access was obtained in the left subclavian vein and 10.5 and 7 Azeri sheaths w ere inserted. A Biotronik bipolar active fixation right ventricular lead model Protego, serial #[id number] was advanc ed under fluoroscopy guidance and the tip was positioned in the right ventricular apex. Following thi s, a Biotronik bipolar active fixation right atrial lead model Solia, serial #[id number] was positioned in the right atrial appendage under fluoroscopy guidance. The leads were secured into place and yaz ched to a Biotronik dual-chamber AICD generator model Iperia 7 DR-T DF4 Pro MRI, serial #[id number]. This was placed in the pocket was subsequently closed in 3 layers. Hemostasis was secured. Ventricular fibrillation was then induced to check the defibrillation threshold. Patient successfully converted to sinus rhythm with 15 J shock therapy. At the end of procedure, the right ventricular le ad showed a sensing amplitude of 11.7 mV, impedance of 506 ohms and threshold of 0.9 V. The right atr ial lead showed a sensing amplitude of 2.1 mV, impedance of 436 ohms and a threshold of 1.2 v. Patien t tolerated the procedure well. There were no immediate complications. CONCLUSION Successful implantation of Biotronik dual-chamber automatic implantable cardioverter defibrillator f or secondary prevention of sudden cardiac in a patient with ventricular tachycardia/fibrillatio n and Cardec arrest. Defibrillation thresholds were measured at the time of implantation.
--- NOTE | 2016-11-14 17:30 | RAD ---
Chest x-ray Indication: Post pacemaker placement Technique: Portable AP upright chest Comparison: Previous study from 11/12/2016 Findings: Interval placement of left chest wall pacemaker with its leads projecting over the heart. Small bilateral pleural effusions noted with passive atelectasis of the adjacent lung parenchyma. No pneumothorax. Visualized bony thorax within normal limits. Impression: Small bilateral pleural effusions with passive atelectasis of the adjacent lung parenchyma. No pneumothorax.
[2016-11-14] MEDS: INSULIN DETEMIR 300 UNITS/3 ML INSULN.PEN. SQ SCH (21:00)
[2016-11-14] MEDS: SERTRALINE 50 MG TABLET. PO SCH (21:19)
[2016-11-14] MEDS: ATORVASTATIN CALCIUM 10 MG TABLET. PO SCH (21:19)
[2016-11-14] MEDS: CINACALCET HCL 30 MG TABLET PO SCH (21:19)
[2016-11-14] MEDS ORDERED: MAGNESIUM SULFATE 2GM 50 ML IV ONE (22:30)
[2016-11-15] VITALS: BP 133/56
[2016-11-15] MEDS ORDERED: AMIODARONE 150 MG in IV DEXTROSE 5% 100 ML IV ONE (01:00)
[2016-11-15] MEDS ORDERED: AMIODARONE 900 MG in IV DEXTROSE 5% 500 ML IV PRN (01:15)
[2016-11-15 03:29] LABS: CALCIUM 8.3 mg/dL (8.5-10.1); CREATININE 4.6 mg/dL (0.6-1.0); GFR 9.6; POTASSIUM 4.7 mmol/L (3.5-5.1)
[2016-11-15 04:00] VITALS: BP 132/82
[2016-11-15 08:00] VITALS: BP 122/48
[2016-11-15] MEDS: IPRATRPIUM/ALBUTEROL 0.5/2.5MG 3 ML NEBU. NEB SCH ×4 (08:00→19:40)
[2016-11-15] MEDS: BUDESONIDE 0.5 MG/2 ML NEBU. NEB SCH ×2 (08:00→19:40)
[2016-11-15] MEDS: CLOPIDOGREL BISULFATE 75 MG TABLET PO SCH (08:27)
[2016-11-15] MEDS: GABAPENTIN 300 MG CAPSULE. PO SCH (08:27)
[2016-11-15] MEDS: CALCIUM ACETATE 667 MG CAPSULE PO SCH ×3 (08:27→16:24)
[2016-11-15] MEDS: METOPROLOL TART IMMED RELEASE 25 MG TABLET. PO SCH ×2 (08:28→21:22)
[2016-11-15] MEDS: PANTOPRAZOLE 40 MG TABLET.DR. PO SCH (08:28)
[2016-11-15] MEDS: FOLIC/VIT B COMP W-C (RENAL) TABLET. PO SCH (08:28)
[2016-11-15] MEDS ORDERED: DEXTROSE 50% 25 GM / 50ML DISP.SYRIN. IV PRN (08:30)
[2016-11-15] MEDS: ASPIRIN ENTERIC COATED 81 MG TABLET.DR. PO SCH (08:31)
--- NOTE | 2016-11-15 08:47 | RAD ---
Single view chest History:post pacemaker An AP view of the chest is submitted. Comparison: 11/14/2016. Findings: There is again dual lead left electronic cardiac device. There are persistent small bilateral pleural effusions with adjacent airspace opacity, not significantly changed. No pneumothorax is identified. Pericardial cardiac silhouette is stable. There is again fusion hardware of the inferior cervical spine. There is widening of the right acromioclavicular joint. Impression: Findings are unchanged, small bilateral pleural effusions with adjacent airspace opacity.
[2016-11-15] MEDS ORDERED: IV NORMAL SALINE 1000ML BAG 1,000 ML IV PRN (08:59)
[2016-11-15] MEDS: AMIODARONE HCL 200 MG TABLET. PO SCH (09:00)
[2016-11-15] MEDS ORDERED: DIALYSIS PATIENT. MC PRN ×2 (09:00)
--- NOTE | 2016-11-15 09:37 | PDOC ---
PROGRESS NOTES Chief Complaint Chief Complaint Acute respiratory failure s/p non sustained Vtach now on IPPV (11/11/16) s/p EXTUBATION (11/12) - dyspnea, acute diastolic CHF exacerbation due to missed HD normocytic anemia, esrd anemia of CKD chest tightness, pain elevated troponin with chf, esrd ESRD on hd t,,s hyperkalemia mild malnutrition, has worsened since admit, dm2, not on meds hld Hx of recent [employer]/stent to lef subclavian artery tobaccoism, NON SUSTAINED VTACH/[facility] (11/14) History of Present Illness History of Present Illness s/p AICD (11/14) Went to [place] last night Needed mag IV - mag this AM is 2.7 Amio gtt running Seen in [facility] left shoulder site of pacer Hypoglycemic 2x past few days - claims not taking levemir 50 x 3 yrs now PLAN: Dw cards AMio gtt ,per cards LOcal pain control site AICD HD per renal Looking good otherwise dc levemir 50 qhs Hgba1c is < 5 Vitals Vitals Vital Signs Date Time Temp Pulse Resp B/P (MAP) Pulse Ox O2 Delivery O2 Flow Rate FiO2 11/15/16 08:28 60 122/48 11/15/16 08:01 Room Air 11/15/16 04:00 98.6 15 100 98.6 11/14/16 20:00 2.0 Physical Exam General: Alert, Oriented X3, Cooperative, No acute distress Heart: Regular rate Lungs: Clear Abdomen: Normal bowel sounds, Soft, No tenderness Extremities: No cyanosis, Other (1+ bilateral LE pitting edema) Skin: No breakdown Labs LABS Laboratory Tests Test 11/14/16 09:46 11/14/16 18:46 11/14/16 19:32 11/14/16 19:49 Glucose (Fingerstick) 157 mg/dL (70-99) 52 mg/dL (70-99) 60 mg/dL (70-99) 60 mg/dL (70-99) Test 11/14/16 20:15 11/15/16 03:00 11/15/16 08:24 Glucose (Fingerstick) 83 mg/dL (70-99) 195 mg/dL (70-99) Sodium Level 139 mmol/L (136-145) Potassium Level 4.7 mmol/L (3.5-5.1) Chloride Level 103 mmol/L (98-107) Carbon Dioxide Level 29 mmol/L (21-32) Anion Gap 7 (6-14) Blood Urea Nitrogen 30 mg/dL (7-20) Creatinine 4.6 mg/dL (0.6-1.0) Estimated GFR (Cockcroft-Gault) 9.6 Glucose Level 205 mg/dL (70-99) Calcium Level 8.3 mg/dL (8.5-10.1) Magnesium Level 2.7 mg/dL (1.8-2.4) Review of Systems Review of Systems left shoulder pain, all else is neg Assessment and Plan Assessmemt and Plan Problems Medical Problems: (1) Fluid overload Status: Acute (2) Hypoxia Status: Acute (3) Pneumonia Status: Acute (4) SIRS (systemic inflammatory response syndrome) Status: Acute Problems: Comment Review of Relevant I have reviewed the following items ashley (where applicable) has been applied. Labs Laboratory Tests Test 11/13/16 10:24 11/13/16 10:59 11/13/16 17:34 11/13/16 21:07 Glucose (Fingerstick) 78 mg/dL (70-99) 124 mg/dL (70-99) 127 mg/dL (70-99) 196 mg/dL (70-99) Test 11/14/16 03:10 11/14/16 09:22 11/14/16 09:46 11/14/16 18:46 White Blood Count 7.6 x10^3/uL (4.0-11.0) Red Blood Count 2.82 x10^6/uL (3.50-5.40) Hemoglobin 8.3 g/dL (12.0-15.5) Hematocrit 25.2 % (36.0-47.0) Mean Corpuscular Volume 89 fL (79-100) Mean Corpuscular Hemoglobin 29 pg (25-35) Mean Corpuscular Hemoglobin Concent 33 g/dL (31-37) Red Cell Distribution Width 16.6 % (11.5-14.5) Platelet Count 142 x10^3/uL (140-400) Sodium Level 139 mmol/L (136-145) Potassium Level 4.4 mmol/L (3.5-5.1) Chloride Level 102 mmol/L (98-107) Carbon Dioxide Level 30 mmol/L (21-32) Anion Gap 7 (6-14) Blood Urea Nitrogen 23 mg/dL (7-20) Creatinine 3.7 mg/dL (0.6-1.0) Estimated GFR (Cockcroft-Gault) 12.3 Glucose Level 166 mg/dL (70-99) Calcium Level 8.3 mg/dL (8.5-10.1) Magnesium Level 2.0 mg/dL (1.8-2.4) Glucose (Fingerstick) 56 mg/dL (70-99) 157 mg/dL (70-99) 52 mg/dL (70-99) Test 11/14/16 19:32 11/14/16 19:49 11/14/16 20:15 11/15/16 03:00 Glucose (Fingerstick) 60 mg/dL (70-99) 60 mg/dL (70-99) 83 mg/dL (70-99) Sodium Level 139 mmol/L (136-145) Potassium Level 4.7 mmol/L (3.5-5.1) Chloride Level 103 mmol/L (98-107) Carbon Dioxide Level 29 mmol/L (21-32) Anion Gap 7 (6-14) Blood Urea Nitrogen 30 mg/dL (7-20) Creatinine 4.6 mg/dL (0.6-1.0) Estimated GFR (Cockcroft-Gault) 9.6 Glucose Level 205 mg/dL (70-99) Calcium Level 8.3 mg/dL (8.5-10.1) Magnesium Level 2.7 mg/dL (1.8-2.4) Test 11/15/16 08:24 Glucose (Fingerstick) 195 mg/dL (70-99) Laboratory Tests Test 11/14/16 09:46 11/14/16 18:46 11/14/16 19:32 11/14/16 19:49 Glucose (Fingerstick) 157 mg/dL (70-99) 52 mg/dL (70-99) 60 mg/dL (70-99) 60 mg/dL (70-99) Test 11/14/16 20:15 11/15/16 03:00 11/15/16 08:24 Glucose (Fingerstick) 83 mg/dL (70-99) 195 mg/dL (70-99) Sodium Level 139 mmol/L (136-145) Potassium Level 4.7 mmol/L (3.5-5.1) Chloride Level 103 mmol/L (98-107) Carbon Dioxide Level 29 mmol/L (21-32) Anion Gap 7 (6-14) Blood Urea Nitrogen 30 mg/dL (7-20) Creatinine 4.6 mg/dL (0.6-1.0) Estimated GFR (Cockcroft-Gault) 9.6 Glucose Level 205 mg/dL (70-99) Calcium Level 8.3 mg/dL (8.5-10.1) Magnesium Level 2.7 mg/dL (1.8-2.4) Microbiology 11/11/16 Blood Culture - Preliminary, Resulted NO GROWTH AFTER 3 DAYS Medications Current Medications Sodium Chloride 1,000 ml @ 100 mls/hr Q10H IV Last administered on 11/11/16 12:04; Start 11/11/16 at 11:40; Stop 11/11/16 at 21:39; Status DC Iohexol (Omnipaque 300 Mg/ml) 75 ml 1X ONCE IV Last administered on 11/11/16 12:45; Start 11/11/16 at 12:45; Stop 11/11/16 at 12:46; Status DC Info (Do NOT chart on this entry -- for MONITORING) 1 each PRN DAILY PRN MC SEE COMMENTS; Start 11/11/16 at 13:00; Stop 11/13/16 at 12:59; Status DC Ondansetron HCl (Zofran) 4 mg PRN Q6HRS PRN IV NAUSEA/VOMITING; Start 11/11/16 at 13:30 Prochlorperazine Edisylate (Compazine) 10 mg PRN Q6HRS PRN IV NAUSEA/VOMITING, 2nd choice; Start 11/11/16 at 13:30 Prochlorperazine (Compazine) 25 mg PRN Q12HR PRN GA NAUSEA/VOMITING; Start at 13:30 Al Hydroxide/Mg Hydroxide (Mylanta Plus Xs) 30 ml PRN Q3HRS PRN PO HEARTBURN / GAS; Start 11/11/16 at 13:30; Status Cancel Calcium Carbonate/ Glycine (Tums) 500 mg PRN Q3HRS PRN PO UPSET STOMACH; Start 11/11/16 at 13:30 Acetaminophen/ Hydrocodone Bitart (Lortab 5/325) 1 tab PRN Q4HRS PRN PO MILD PAIN; Start 11/11/16 at 13:30 Acetaminophen (Tylenol) 650 mg PRN Q6HRS PRN PO Headaches, Temp > 101.5F; Start 11/11/16 at 13:30 Heparin Sodium (Porcine) (Heparin Sq) 5,000 unit Q8HRS SQ Last administered on 11/11/16 22:05; Start 11/11/16 at 22:00; Stop 11/12/16 at 01:51; Status DC Fentanyl Citrate (Fentanyl 2ml Vial) 50 mcg PRN Q2HR PRN IV pain; Start at 13:30 Albuterol/ Ipratropium (Duoneb) 3 ml RTQID NEB Last administered on 11/15/16 08:00; Start 11/11/16 at 16:00 Nicotine (Nicoderm Cq 21mg) 1 patch PRN DAILY PRN TD SMOKING CESSATION; Start 11/11/16 at 13:30 Guaifenesin (Robitussin Dm) 10 ml PRN Q6HRS PRN PO COUGH; Start 11/11/16 at 13: 30 Acetaminophen (Tylenol) 500 mg PRN Q12HRS PRN PO MILD PAIN, 1st choice; Start 11/11/16 at 13:45 Alprazolam (Xanax) 0.25 mg DAILY PRN PO ANXIETY / AGITATION; Start 11/11/16 at 13:45 Aspirin (Ecotrin) 81 mg DAILYWBKFT PO Last administered on 11/15/16 08:31; Start 11/12/16 at 08:00 Atorvastatin Calcium (Lipitor) 10 mg QHS PO Last administered on 11/14/16 21: 19; Start 11/11/16 at 21:00 Carvedilol (Coreg) 3.125 mg BIDWMEALS PO Last administered on 11/11/16 22:06; Start 11/11/16 at 17:00; Stop 11/12/16 at 10:41; Status DC Cinacalcet (Sensipar) 30 mg QHS PO Last administered on 11/14/16 21:19; Start 11/11/16 at 21:00 Clopidogrel Bisulfate (Plavix) 75 mg DAILYWBKFT PO Last administered on 08:27; Start 11/12/16 at 08:00 Furosemide (Lasix) 60 mg DAILY PRN PO SEE COMMENTS Last administered on 09:34; Start 11/11/16 at 13:45 Lisinopril (Prinivil) 40 mg QTUTHSASU PO Last administered on 11/11/16 22:06; Start 11/11/16 at 16:00 Metolazone (Zaroxolyn) 2.5 mg 3X/WEEK PO ; Start 11/12/16 at 09:00 Potassium Chloride (Klor-Con) 20 meq WEEKLY PRN PO SEE COMMENTS; Start at 13:45 Sertraline HCl (Zoloft) 50 mg QHS PO Last administered on 11/14/16 21:19; Start 11/11/16 at 21:00 Calcium Acetate (Phoslo) 1,334 mg TIDWMEALS PO Last administered on 11/15/16 08:27; Start 11/11/16 at 17:00 Non-Formulary Medication 1 each DAILY PO ; Start 11/12/16 at 09:00; Status UNV Non-Formulary Medication 210 mg TIDWMEALS PO ; Start 11/11/16 at 17:00; Status UNV Gabapentin (Neurontin) 300 mg DAILY PO Last administered on 11/15/16 08:27; Start 11/12/16 at 09:00 Insulin Detemir (Levemir) 50 units QHS SQ Last administered on 11/13/16 21:21 ; Start 11/11/16 at 21:00; Stop 11/15/16 at 08:30; Status DC Non-Formulary Medication 5 mg HS PO ; Start 11/11/16 at 21:00; Status UNV Vitamin B Complex/ Vitamin C (Alayna-Oneil) 1 tab DAILY PO Last administered on 08:28; Start 11/12/16 at 09:00 Insulin Aspart (NovoLOG) 0-9 UNITS TIDWMEALS SQ ; Start 11/11/16 at 17:00; Stop 11/15/16 at 08:30; Status DC Dextrose (Dextrose 50%-Water Syringe) 12.5 gm PRN Q15MIN PRN IV SEE COMMENTS Last administered on 11/14/16 09:25; Start 11/11/16 at 13:45 Sodium Chloride 1,000 ml @ 100 mls/hr Q10H IV Last administered on 11/12/16 06:05; Start 11/11/16 at 13:49; Stop 11/11/16 at 23:48; Status DC Albuterol/ Ipratropium (Duoneb) 3 ml 1X ONCE NEB Last administered on 14:56; Start 11/11/16 at 14:00; Stop 11/11/16 at 14:31; Status DC Methylprednisolone Sodium Succinate (SOLU-Medrol 125MG VIAL) 125 mg 1X ONCE IV Last administered on 11/11/16 14:58; Start 11/11/16 at 14:30; Stop 11/11/16 at 14:32; Status DC Cefepime HCl 1 gm/ Sodium Chloride 50 ml @ 100 mls/hr Q24H IV Last administered on 11/13/16 12:58; Start 11/12/16 at 14:00 Vancomycin HCl 1.5 gm/Sodium Chloride 500 ml @ 250 mls/hr 1X ONCE IV ; Start 11/11/16 at 14:30; Stop 11/11/16 at 16:29; Status UNV Vancomycin HCl 2 gm/Sodium Chloride 500 ml @ 250 mls/hr ONCE ONCE IV Last administered on 11/11/16 20:30; Start 11/11/16 at 14:30; Stop 11/11/16 at 16:29 ; Status DC Cefepime HCl 1 gm/ Sodium Chloride 50 ml @ 100 mls/hr ONCE ONCE IV Last administered on 11/11/16 15:01; Start 11/11/16 at 14:45; Stop 11/11/16 at 15:14 ; Status DC Amiodarone HCl 150 mg/Dextrose 103 ml @ 618 mls/hr 1X ONCE IV ; Start at 01:30; Stop 11/12/16 at 01:39; Status DC Amiodarone HCl 900 mg/Dextrose 518 ml @ 0 mls/hr CONT PRN IV SEE I/O RECORD Last administered on 11/12/16 06:07; Start 11/12/16 at 01:45; Stop 11/12/16 at 06:07; Status DC Etomidate (Amidate) 20 mg 1X ONCE IV ; Start 11/12/16 at 01:15; Stop 11/12/16 at 01:16; Status DC Rocuronium Denison (Zemuron) 100 mg 1X ONCE IV ; Start 11/12/16 at 01:15; Stop 11/12/16 at 01:16; Status DC Etomidate (Amidate) 20 mg STK-MED ONCE IV ; Start 11/12/16 at 01:03; Stop at 01:04; Status DC Propofol 100 ml @ As Directed STK-MED ONCE IV ; Start 11/12/16 at 01:17; Stop 11/12/16 at 01:18; Status DC Propofol 100 ml @ 0 mls/hr CONT PRN IV SEE I/O RECORD; Start 11/12/16 at 01:30 ; Stop 11/13/16 at 09:06; Status DC Rocuronium Denison (Zemuron) 50 mg STK-MED ONCE .ROUTE ; Start 11/12/16 at 01:33 ; Stop 11/12/16 at 01:34; Status DC Heparin Sodium (Porcine) (Heparin Sodium) 4,000 unit 1X ONCE IV Last administered on 11/12/16 02:56; Start 11/12/16 at 02:00; Stop 11/12/16 at 02:01 ; Status DC Heparin Sodium/ Dextrose 500 ml @ 0 mls/hr CONT PRN IV SEE I/O RECORD Last administered on 11/13/16 04:00; Start 11/12/16 at 01:45 Heparin Sodium (Porcine) (Heparin Sodium) 1,750 unit PRN Q6HRS PRN IV FOR UFH LEVEL LESS THAN 0.2 Last administered on 11/13/16 03:17; Start 11/12/16 at 01: 45 Info (Anti-Coagulation Monitoring By Pharmacy) 1 each PRN DAILY PRN MC SEE COMMENTS Last administered on 11/14/16 11:07; Start 11/12/16 at 02:00 Pantoprazole Sodium (Protonix) 40 mg DAILYAC PO Last administered on 11/15/16 08:28; Start 11/12/16 at 10:30 Budesonide (Pulmicort) 0.5 mg RTBID NEB Last administered on 11/15/16 08:00; Start 11/12/16 at 10:30 Amiodarone HCl 900 mg/Dextrose 518 ml @ 33.33 mls/ hr CONT PRN IV SEE I/O RECORD Last administered on 11/12/16 13:45; Start 11/12/16 at 10:30; Stop 11/12 at 16:29; Status DC Amiodarone HCl 900 mg/Dextrose 518 ml @ 16.67 mls/ hr CONT PRN IV SEE I/O RECORD; Start 11/12/16 at 10:30; Stop 11/13/16 at 04:29; Status UNV Darbepoetin Jaskaran (Aranesp) 60 mcg WEEKLYHS SQ Last administered on 11/12/16 22 :14; Start 11/12/16 at 21:00 Hydralazine HCl (Apresoline) 10 mg PRN Q4HRS PRN IVP ELEVATED BP, SEE COMMENTS ; Start 11/12/16 at 13:15 Amiodarone HCl (Cordarone) 150 mg STK-MED ONCE .ROUTE ; Start 11/13/16 at 21:00 ; Stop 11/13/16 at 21:01; Status DC Magnesium Sulfate/ Dextrose (Magnesium Sulfate PREMIX 1GM) 1 gm STK-MED ONCE IV ; Start 11/13/16 at 21:00; Stop 11/13/16 at 21:01; Status DC Amiodarone HCl (Cordarone) 200 mg DAILY PO Last administered on 11/14/16 09:18 ; Start 11/13/16 at 10:00 Iohexol (Omnipaque 300 Mg/ml) 100 ml STK-MED ONCE .ROUTE ; Start 11/13/16 at 10: 55; Stop 11/13/16 at 10:56; Status DC Heparin Sodium/ Sodium Chloride 1,000 ml @ As Directed STK-MED ONCE .ROUTE ; Start 11/13/16 at 10:55; Stop 11/13/16 at 10:56; Status DC Lidocaine HCl 20 ml STK-MED ONCE .ROUTE ; Start 11/13/16 at 10:55; Stop at 10:56; Status DC Fentanyl Citrate (Fentanyl 2ml Vial) 100 mcg STK-MED ONCE .ROUTE ; Start at 11:17; Stop 11/13/16 at 11:18; Status DC Midazolam HCl (Versed) 2 mg STK-MED ONCE .ROUTE ; Start 11/13/16 at 11:17; Stop 11/13/16 at 11:18; Status DC Heparin Sodium/ Sodium Chloride 1,000 unit 1X ONCE IART Last administered on 11:59; Start 11/13/16 at 11:30; Stop 11/13/16 at 11:31; Status DC Midazolam HCl (Versed) 2 mg 1X ONCE IV Last administered on 11/13/16 11:59; Start 11/13/16 at 11:30; Stop 11/13/16 at 11:31; Status DC Fentanyl Citrate (Fentanyl 2ml Vial) 100 mcg 1X ONCE IV Last administered on 12:00; Start 11/13/16 at 11:30; Stop 11/13/16 at 11:31; Status DC Iohexol (Omnipaque 300 Mg/ml) 100 ml 1X ONCE IART Last administered on 12:00; Start 11/13/16 at 11:30; Stop 11/13/16 at 11:31; Status DC Lidocaine HCl 20 ml 1X ONCE IJ Last administered on 11/13/16 11:58; Start at 11:30; Stop 11/13/16 at 11:31; Status DC Midazolam HCl (Versed) 2 mg STK-MED ONCE .ROUTE ; Start 11/13/16 at 11:29; Stop 11/13/16 at 11:30; Status DC Ondansetron HCl (Zofran) 4 mg PRN Q6HRS PRN IV NAUSEA/VOMITING; Start 11/14/16 at 07:00; Stop 11/15/16 at 06:59; Status DC Fentanyl Citrate (Fentanyl 2ml Vial) 25 mcg PRN Q5MIN PRN IV MILD PAIN; Start 11/14/16 at 07:00; Stop 11/15/16 at 06:59; Status DC Fentanyl Citrate (Fentanyl 2ml Vial) 50 mcg PRN Q5MIN PRN IV MODERATE PAIN; Start 11/14/16 at 07:00; Stop 11/15/16 at 06:59; Status DC Ringer's Solution 1,000 ml @ 30 mls/hr Q24H IV ; Start 11/14/16 at 07:00; Stop 11/14/16 at 18:59; Status DC Lidocaine HCl 2 ml PRN 1X PRN ID PRIOR TO IV START; Start 11/14/16 at 07:00; Stop 11/15/16 at 06:59; Status DC Prochlorperazine Edisylate (Compazine) 5 mg PACU PRN PRN IV NAUSEA, MRX1; Start 11/14/16 at 07:00; Stop 11/15/16 at 06:59; Status DC Sodium Chloride 1,000 ml @ 1,000 mls/hr Q1H PRN IV hypotension; Start 11/13/16 at 15:38; Stop 11/13/16 at 21:37; Status DC Info (PHARMACY MONITORING -- do not chart) 1 each PRN DAILY PRN MC SEE COMMENTS ; Start 11/13/16 at 15:45 Info (PHARMACY MONITORING -- do not chart) 1 each PRN DAILY PRN MC SEE COMMENTS ; Start 11/13/16 at 15:45; Status UNV Cefazolin Sodium 1 gm/Sodium Chloride 50 ml @ 100 mls/hr 1X ONCE IV Last administered on 11/14/16 15:56; Start 11/14/16 at 06:00; Stop 11/14/16 at 06:29 ; Status DC Metoprolol Tartrate (Lopressor) 25 mg BID PO Last administered on 11/15/16 08: 28; Start 11/14/16 at 09:30 Bacitracin 02158 unit/Sodium Chloride 250 ml @ 250 mls/hr 1X ONCE IRR Last administered on 11/14/16 15:40; Start 11/14/16 at 15:00; Stop 11/14/16 at 15:59 ; Status DC Lidocaine HCl 20 ml STK-MED ONCE .ROUTE ; Start 11/14/16 at 14:54; Stop at 14:55; Status DC Fentanyl Citrate (Fentanyl 5ml Vial) 250 mcg STK-MED ONCE .ROUTE ; Start at 14:55; Stop 11/14/16 at 14:56; Status DC Midazolam HCl (Versed) 5 mg STK-MED ONCE .ROUTE ; Start 11/14/16 at 14:55; Stop 11/14/16 at 14:56; Status DC Lidocaine HCl 20 ml STK-MED ONCE .ROUTE ; Start 11/14/16 at 14:57; Stop at 14:58; Status DC Midazolam HCl (Versed) 5 mg 1X ONCE IV Last administered on 11/14/16 15:59; Start 11/14/16 at 15:30; Stop 11/14/16 at 15:31; Status DC Fentanyl Citrate (Fentanyl 2ml Vial) 100 mcg 1X ONCE IV Last administered on 15:30; Start 11/14/16 at 15:30; Stop 11/14/16 at 15:31; Status DC Lidocaine HCl 20 ml 1X ONCE IJ Last administered on 11/14/16 15:58; Start at 15:30; Stop 11/14/16 at 15:31; Status DC Cefazolin Sodium 1 gm/Sodium Chloride 50 ml @ 100 mls/hr 1X ONCE IV ; Start at 16:15; Stop 11/14/16 at 16:44; Status UNV Magnesium Sulfate/ Dextrose 50 ml @ 25 mls/hr 1X ONCE IV Last administered on 11/14/16 22:30; Start 11/14/16 at 22:30; Stop 11/15/16 at 00:29; Status DC Amiodarone HCl 150 mg/Dextrose 103 ml @ 618 mls/hr 1X ONCE IV Last administered on 11/15/16 01:13; Start 11/15/16 at 01:00; Stop 11/15/16 at 01:09 ; Status DC Amiodarone HCl 900 mg/Dextrose 518 ml @ 0 mls/hr CONT PRN IV SEE I/O RECORD Last administered on 11/15/16 01:20; Start 11/15/16 at 01:15; Stop 11/15/16 at 01:20; Status DC Insulin Aspart (NovoLOG) 0-7 UNITS TIDWMEALS SQ ; Start 11/15/16 at 12:00 Dextrose (Dextrose 50%-Water Syringe) 12.5 gm PRN Q15MIN PRN IV SEE COMMENTS; Start 11/15/16 at 08:30 Sodium Chloride 1,000 ml @ 1,000 mls/hr Q1H PRN IV hypotension; Start 11/15/16 at 08:59; Stop 11/15/16 at 14:58 Info (PHARMACY MONITORING -- do not chart) 1 each PRN DAILY PRN MC SEE COMMENTS ; Start 11/15/16 at 09:00; Status UNV Info (PHARMACY MONITORING -- do not chart) 1 each PRN DAILY PRN MC SEE COMMENTS ; Start 11/15/16 at 09:00; Status UNV Active Scripts Active Lisinopril 40 Mg Tablet 40 Mg PO QTUTHSASU Carvedilol 3.125 Mg Tablet 3.125 Mg PO BIDWMEALS Reported Sertraline Hcl 50 Mg Tablet 50 Mg PO QHS Sensipar (Cinacalcet Hcl) 30 Mg Tablet 1 Tab PO QHS Alayna-Oneil Rx Tablet (Vit B Cmplx 3/Fa/Vit C/Biotin) 1 Each Tablet 1 Each PO DAILY Cranberry Plus Vitamin C Sftgl (Cranberry Conc/Ascorbic Acid) 1 Each Capsule 1 Each PO DAILY Lipitor (Atorvastatin Calcium) 10 Mg Tablet 1 Tab PO DAILY Coricidin Hbp Tablet (Acetaminophen/Chlorpheniramine) 1 Each Tablet 1 Each PO PRN Ferric Citrate 210 Mg Tablet 210 Mg PO TIDWMEALS Alprazolam 0.25 Mg Tablet 1 Tab PO DAILY PRN Plavix (Clopidogrel Bisulfate) 75 Mg Tablet 75 Mg PO DAILY Calcium Acetate 667 Mg Tablet 2 Tab PO TIDWMEALS last dose was this am next dose is wiith supper Tylenol Extra Strength (Acetaminophen) 500 Mg Tablet 500 Mg PO PRN Q12HRS PRN not given in hospital may resume when needed Metolazone 2.5 Mg Tablet 2.5 Mg PO 3X/WEEK Furosemide 40 Mg Tablet 60 Mg PO PRN PRN not given in hospital may take as instructed by provider Potassium Chloride 20 Meq Tab.er.prt 20 Meq PO WEEKLY PRN was not given in hospital Gabapentin 300 Mg Capsule 300 Mg PO DAILY Crestor (Rosuvastatin Calcium) 5 Mg Tablet 5 Mg PO HS was not given in the hospital as requested will resume at home Lantus (Insulin Glargine,Hum.rec.anlog) 100 Unit/1 Ml Vial 50 Unit SQ HS refused to take last night stated she would take her own at home Benadryl Allergy (Diphenhydramine Hcl) 25 Mg Tablet 25 Mg PO PRN not given in the hospital Aspir 81 (Aspirin) 81 Mg Tablet. 81 Mg PO DAILY last dose was this am resume in am Vitals/I & O Vital Sign - Last 24 Hours 8/11/14/16 11/14/16 11/14/16 09:44 11:53 12:00 15:30 Temp 98.9 98.9 Pulse 62 54 Resp 17 B/P (MAP) 128/53 141/66 (91) Pulse Ox 100 100 95 O2 Delivery Room Air Nasal Cannula Room Air O2 Flow Rate 1.0 3.0 11/14/16 11/14/16 11/14/16 11/14/16 16:00 16:04 19:32 20:00 Temp 98.9 98.3 98.9 98.3 Pulse 62 60 60 Resp 22 14 14 B/P (MAP) 131/62 (85) 139/55 (83) Pulse Ox 100 97 93 100 O2 Delivery Room Air Nasal Cannula Nasal Cannula Room Air O2 Flow Rate 3.0 3.0 11/14/16 11/14/16 11/15/16 11/15/16 20:00 21:19 00:00 01:13 Pulse 60 60 60 Resp 13 B/P (MAP) 128/56 133/56 (81) 118/44 Pulse Ox 100 O2 Delivery Nasal Cannula Room Air O2 Flow Rate 2.0 11/15/16 11/15/16 11/15/16 04:00 08:01 08:28 Temp 98.6 98.6 Pulse 64 60 Resp 15 B/P (MAP) 132/82 (99) 122/48 Pulse Ox 100 O2 Delivery Room Air Room Air Intake and Output 11/14/16 11/14/16 11/15/16 15:00 23:00 07:00 Intake Total 900 ml Output Total 0 ml Balance 0 ml 900 ml MICHELLE DOWD MD Nov 15, 2016 09:37
--- NOTE | 2016-11-15 11:16 | PDOC ---
PROGRESS NOTES Subjective Subjective The patient is alert. Objective Objective Vital Signs Date Time Temp Pulse Resp B/P (MAP) Pulse Ox O2 Delivery O2 Flow Rate FiO2 11/15/16 08:28 60 122/48 11/15/16 08:01 Room Air 11/15/16 08:00 2.0 11/15/16 04:00 98.6 15 100 98.6 Intake and Output 11/15/16 07:00 Intake Total 900 ml Output Total 0 ml Balance 900 ml Intake Oral 900 ml Output Urine Total 0 ml # Voids 1 Physical Exam Abdomen: Normal bowel sounds Heart: Regular rate General: mild distress Lungs: Clear to auscultation Assessment Assessment Problems Medical Problems: (1) Fluid overload Status: Acute (2) Hypoxia Status: Acute (3) Pneumonia Status: Acute (4) SIRS (systemic inflammatory response syndrome) Status: Acute 1. S/P cardiac arrest: as an inpt. AICD placed yesterday. Six episodes of VT, VF overnight. Mg given. Continue amiodarone. Add mexilitine 2. Sinus bradycardia: AICD 3. HTN: BP stable 4. 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 Followed by pulmonary. 5. CAD: PCI/BMS to LAD 10/24/2016. No evidence of any CP. Isoenzymes were normal upon check with f/u EF of 50% with low normal LV function.Recheck of cath as above. 6. ESRD: HD per nephrology 7. Acute on chronic diastolic CHF: improved. 8. Anemia of chronic disease: No obvious bleed. Hgb 7.1, transfusion pending 9. Valvular insufficiency: mod to severe MR. 10. DM2/HLP Comment Review of Relevant I have reviewed the following items ashley (where applicable) has been applied. Labs Laboratory Tests Test 11/13/16 17:34 11/13/16 21:07 11/14/16 03:10 11/14/16 09:22 Glucose (Fingerstick) 127 mg/dL (70-99) 196 mg/dL (70-99) 56 mg/dL (70-99) White Blood Count 7.6 x10^3/uL (4.0-11.0) Red Blood Count 2.82 x10^6/uL (3.50-5.40) Hemoglobin 8.3 g/dL (12.0-15.5) Hematocrit 25.2 % (36.0-47.0) Mean Corpuscular Volume 89 fL (79-100) Mean Corpuscular Hemoglobin 29 pg (25-35) Mean Corpuscular Hemoglobin Concent 33 g/dL (31-37) Red Cell Distribution Width 16.6 % (11.5-14.5) Platelet Count 142 x10^3/uL (140-400) Sodium Level 139 mmol/L (136-145) Potassium Level 4.4 mmol/L (3.5-5.1) Chloride Level 102 mmol/L (98-107) Carbon Dioxide Level 30 mmol/L (21-32) Anion Gap 7 (6-14) Blood Urea Nitrogen 23 mg/dL (7-20) Creatinine 3.7 mg/dL (0.6-1.0) Estimated GFR (Cockcroft-Gault) 12.3 Glucose Level 166 mg/dL (70-99) Calcium Level 8.3 mg/dL (8.5-10.1) Magnesium Level 2.0 mg/dL (1.8-2.4) Test 11/14/16 09:46 11/14/16 18:46 11/14/16 19:32 11/14/16 19:49 Glucose (Fingerstick) 157 mg/dL (70-99) 52 mg/dL (70-99) 60 mg/dL (70-99) 60 mg/dL (70-99) Test 11/14/16 20:15 11/15/16 03:00 11/15/16 08:24 Glucose (Fingerstick) 83 mg/dL (70-99) 195 mg/dL (70-99) Sodium Level 139 mmol/L (136-145) Potassium Level 4.7 mmol/L (3.5-5.1) Chloride Level 103 mmol/L (98-107) Carbon Dioxide Level 29 mmol/L (21-32) Anion Gap 7 (6-14) Blood Urea Nitrogen 30 mg/dL (7-20) Creatinine 4.6 mg/dL (0.6-1.0) Estimated GFR (Cockcroft-Gault) 9.6 Glucose Level 205 mg/dL (70-99) Calcium Level 8.3 mg/dL (8.5-10.1) Magnesium Level 2.7 mg/dL (1.8-2.4) Laboratory Tests Test 11/14/16 18:46 11/14/16 19:32 11/14/16 19:49 11/14/16 20:15 Glucose (Fingerstick) 52 mg/dL (70-99) 60 mg/dL (70-99) 60 mg/dL (70-99) 83 mg/dL (70-99) Test 11/15/16 03:00 11/15/16 08:24 Sodium Level 139 mmol/L (136-145) Potassium Level 4.7 mmol/L (3.5-5.1) Chloride Level 103 mmol/L (98-107) Carbon Dioxide Level 29 mmol/L (21-32) Anion Gap 7 (6-14) Blood Urea Nitrogen 30 mg/dL (7-20) Creatinine 4.6 mg/dL (0.6-1.0) Estimated GFR (Cockcroft-Gault) 9.6 Glucose Level 205 mg/dL (70-99) Calcium Level 8.3 mg/dL (8.5-10.1) Magnesium Level 2.7 mg/dL (1.8-2.4) Glucose (Fingerstick) 195 mg/dL (70-99) Microbiology 11/11/16 Blood Culture - Preliminary, Resulted NO GROWTH AFTER 3 DAYS Medications Current Medications Sodium Chloride 1,000 ml @ 100 mls/hr Q10H IV Last administered on 11/11/16 12:04; Start 11/11/16 at 11:40; Stop 11/11/16 at 21:39; Status DC Iohexol (Omnipaque 300 Mg/ml) 75 ml 1X ONCE IV Last administered on 11/11/16 12:45; Start 11/11/16 at 12:45; Stop 11/11/16 at 12:46; Status DC Info (Do NOT chart on this entry -- for MONITORING) 1 each PRN DAILY PRN MC SEE COMMENTS; Start 11/11/16 at 13:00; Stop 11/13/16 at 12:59; Status DC Ondansetron HCl (Zofran) 4 mg PRN Q6HRS PRN IV NAUSEA/VOMITING; Start 11/11/16 at 13:30 Prochlorperazine Edisylate (Compazine) 10 mg PRN Q6HRS PRN IV NAUSEA/VOMITING, 2nd choice; Start 11/11/16 at 13:30 Prochlorperazine (Compazine) 25 mg PRN Q12HR PRN HI NAUSEA/VOMITING; Start at 13:30 Al Hydroxide/Mg Hydroxide (Mylanta Plus Xs) 30 ml PRN Q3HRS PRN PO HEARTBURN / GAS; Start 11/11/16 at 13:30; Status Cancel Calcium Carbonate/ Glycine (Tums) 500 mg PRN Q3HRS PRN PO UPSET STOMACH; Start 11/11/16 at 13:30 Acetaminophen/ Hydrocodone Bitart (Lortab 5/325) 1 tab PRN Q4HRS PRN PO MILD PAIN; Start 11/11/16 at 13:30 Acetaminophen (Tylenol) 650 mg PRN Q6HRS PRN PO Headaches, Temp > 101.5F; Start 11/11/16 at 13:30 Heparin Sodium (Porcine) (Heparin Sq) 5,000 unit Q8HRS SQ Last administered on 11/11/16 22:05; Start 11/11/16 at 22:00; Stop 11/12/16 at 01:51; Status DC Fentanyl Citrate (Fentanyl 2ml Vial) 50 mcg PRN Q2HR PRN IV pain; Start at 13:30 Albuterol/ Ipratropium (Duoneb) 3 ml RTQID NEB Last administered on 11/15/16 08:00; Start 11/11/16 at 16:00 Nicotine (Nicoderm Cq 21mg) 1 patch PRN DAILY PRN TD SMOKING CESSATION; Start 11/11/16 at 13:30 Guaifenesin (Robitussin Dm) 10 ml PRN Q6HRS PRN PO COUGH; Start 11/11/16 at 13: 30 Acetaminophen (Tylenol) 500 mg PRN Q12HRS PRN PO MILD PAIN, 1st choice; Start 11/11/16 at 13:45 Alprazolam (Xanax) 0.25 mg DAILY PRN PO ANXIETY / AGITATION; Start 11/11/16 at 13:45 Aspirin (Ecotrin) 81 mg DAILYWBKFT PO Last administered on 11/15/16 08:31; Start 11/12/16 at 08:00 Atorvastatin Calcium (Lipitor) 10 mg QHS PO Last administered on 11/14/16 21: 19; Start 11/11/16 at 21:00 Carvedilol (Coreg) 3.125 mg BIDWMEALS PO Last administered on 11/11/16 22:06; Start 11/11/16 at 17:00; Stop 11/12/16 at 10:41; Status DC Cinacalcet (Sensipar) 30 mg QHS PO Last administered on 11/14/16 21:19; Start 11/11/16 at 21:00 Clopidogrel Bisulfate (Plavix) 75 mg DAILYWBKFT PO Last administered on 08:27; Start 11/12/16 at 08:00 Furosemide (Lasix) 60 mg DAILY PRN PO SEE COMMENTS Last administered on 09:34; Start 11/11/16 at 13:45 Lisinopril (Prinivil) 40 mg QTUTHSASU PO Last administered on 11/11/16 22:06; Start 11/11/16 at 16:00 Metolazone (Zaroxolyn) 2.5 mg 3X/WEEK PO ; Start 11/12/16 at 09:00 Potassium Chloride (Klor-Con) 20 meq WEEKLY PRN PO SEE COMMENTS; Start at 13:45 Sertraline HCl (Zoloft) 50 mg QHS PO Last administered on 11/14/16 21:19; Start 11/11/16 at 21:00 Calcium Acetate (Phoslo) 1,334 mg TIDWMEALS PO Last administered on 11/15/16 08:27; Start 11/11/16 at 17:00 Non-Formulary Medication 1 each DAILY PO ; Start 11/12/16 at 09:00; Status UNV Non-Formulary Medication 210 mg TIDWMEALS PO ; Start 11/11/16 at 17:00; Status UNV Gabapentin (Neurontin) 300 mg DAILY PO Last administered on 11/15/16 08:27; Start 11/12/16 at 09:00 Insulin Detemir (Levemir) 50 units QHS SQ Last administered on 11/13/16 21:21 ; Start 11/11/16 at 21:00; Stop 11/15/16 at 08:30; Status DC Non-Formulary Medication 5 mg HS PO ; Start 11/11/16 at 21:00; Status UNV Vitamin B Complex/ Vitamin C (Alayna-Oneil) 1 tab DAILY PO Last administered on 08:28; Start 11/12/16 at 09:00 Insulin Aspart (NovoLOG) 0-9 UNITS TIDWMEALS SQ ; Start 11/11/16 at 17:00; Stop 11/15/16 at 08:30; Status DC Dextrose (Dextrose 50%-Water Syringe) 12.5 gm PRN Q15MIN PRN IV SEE COMMENTS Last administered on 11/14/16 09:25; Start 11/11/16 at 13:45; Stop 11/15/16 at 09:54; Status DC Sodium Chloride 1,000 ml @ 100 mls/hr Q10H IV Last administered on 11/12/16 06:05; Start 11/11/16 at 13:49; Stop 11/11/16 at 23:48; Status DC Albuterol/ Ipratropium (Duoneb) 3 ml 1X ONCE NEB Last administered on 14:56; Start 11/11/16 at 14:00; Stop 11/11/16 at 14:31; Status DC Methylprednisolone Sodium Succinate (SOLU-Medrol 125MG VIAL) 125 mg 1X ONCE IV Last administered on 11/11/16 14:58; Start 11/11/16 at 14:30; Stop 11/11/16 at 14:32; Status DC Cefepime HCl 1 gm/ Sodium Chloride 50 ml @ 100 mls/hr Q24H IV Last administered on 11/13/16 12:58; Start 11/12/16 at 14:00 Vancomycin HCl 1.5 gm/Sodium Chloride 500 ml @ 250 mls/hr 1X ONCE IV ; Start 11/11/16 at 14:30; Stop 11/11/16 at 16:29; Status UNV Vancomycin HCl 2 gm/Sodium Chloride 500 ml @ 250 mls/hr ONCE ONCE IV Last administered on 11/11/16 20:30; Start 11/11/16 at 14:30; Stop 11/11/16 at 16:29 ; Status DC Cefepime HCl 1 gm/ Sodium Chloride 50 ml @ 100 mls/hr ONCE ONCE IV Last administered on 11/11/16 15:01; Start 11/11/16 at 14:45; Stop 11/11/16 at 15:14 ; Status DC Amiodarone HCl 150 mg/Dextrose 103 ml @ 618 mls/hr 1X ONCE IV ; Start at 01:30; Stop 11/12/16 at 01:39; Status DC Amiodarone HCl 900 mg/Dextrose 518 ml @ 0 mls/hr CONT PRN IV SEE I/O RECORD Last administered on 11/12/16 06:07; Start 11/12/16 at 01:45; Stop 11/12/16 at 06:07; Status DC Etomidate (Amidate) 20 mg 1X ONCE IV ; Start 11/12/16 at 01:15; Stop 11/12/16 at 01:16; Status DC Rocuronium [place] (Zemuron) 100 mg 1X ONCE IV ; Start 11/12/16 at 01:15; Stop 11/12/16 at 01:16; Status DC Etomidate (Amidate) 20 mg STK-MED ONCE IV ; Start 11/12/16 at 01:03; Stop at 01:04; Status DC Propofol 100 ml @ As Directed STK-MED ONCE IV ; Start 11/12/16 at 01:17; Stop 11/12/16 at 01:18; Status DC Propofol 100 ml @ 0 mls/hr CONT PRN IV SEE I/O RECORD; Start 11/12/16 at 01:30 ; Stop 11/13/16 at 09:06; Status DC Rocuronium [place] (Zemuron) 50 mg STK-MED ONCE .ROUTE ; Start 11/12/16 at 01:33 ; Stop 11/12/16 at 01:34; Status DC Heparin Sodium (Porcine) (Heparin Sodium) 4,000 unit 1X ONCE IV Last administered on 11/12/16 02:56; Start 11/12/16 at 02:00; Stop 11/12/16 at 02:01 ; Status DC Heparin Sodium/ Dextrose 500 ml @ 0 mls/hr CONT PRN IV SEE I/O RECORD Last administered on 11/13/16 04:00; Start 11/12/16 at 01:45; Stop 11/15/16 at 09:59 ; Status DC Heparin Sodium (Porcine) (Heparin Sodium) 1,750 unit PRN Q6HRS PRN IV FOR UFH LEVEL LESS THAN 0.2 Last administered on 11/13/16 03:17; Start 11/12/16 at 01: 45; Stop 11/15/16 at 09:59; Status DC Info (Anti-Coagulation Monitoring By Pharmacy) 1 each PRN DAILY PRN MC SEE COMMENTS Last administered on 11/14/16 11:07; Start 11/12/16 at 02:00; Stop at 10:03; Status DC Pantoprazole Sodium (Protonix) 40 mg DAILYAC PO Last administered on 11/15/16 08:28; Start 11/12/16 at 10:30 Budesonide (Pulmicort) 0.5 mg RTBID NEB Last administered on 11/15/16 08:00; Start 11/12/16 at 10:30 Amiodarone HCl 900 mg/Dextrose 518 ml @ 33.33 mls/ hr CONT PRN IV SEE I/O RECORD Last administered on 11/12/16 13:45; Start 11/12/16 at 10:30; Stop 11/12 at 16:29; Status DC Amiodarone HCl 900 mg/Dextrose 518 ml @ 16.67 mls/ hr CONT PRN IV SEE I/O RECORD; Start 11/12/16 at 10:30; Stop 11/13/16 at 04:29; Status UNV Darbepoetin [place] (Aranesp) 60 mcg WEEKLYHS SQ Last administered on 11/12/16 22 :14; Start 11/12/16 at 21:00 Hydralazine HCl (Apresoline) 10 mg PRN Q4HRS PRN IVP ELEVATED BP, SEE COMMENTS ; Start 11/12/16 at 13:15 Amiodarone HCl (Cordarone) 150 mg STK-MED ONCE .ROUTE ; Start 11/13/16 at 21:00 ; Stop 11/13/16 at 21:01; Status DC Magnesium Sulfate/ Dextrose (Magnesium Sulfate PREMIX 1GM) 1 gm STK-MED ONCE IV ; Start 11/13/16 at 21:00; Stop 11/13/16 at 21:01; Status DC Amiodarone HCl (Cordarone) 200 mg DAILY PO Last administered on 11/14/16 09:18 ; Start 11/13/16 at 10:00 Iohexol (Omnipaque 300 Mg/ml) 100 ml STK-MED ONCE .ROUTE ; Start 11/13/16 at 10: 55; Stop 11/13/16 at 10:56; Status DC Heparin Sodium/ Sodium Chloride 1,000 ml @ As Directed STK-MED ONCE .ROUTE ; Start 11/13/16 at 10:55; Stop 11/13/16 at 10:56; Status DC Lidocaine HCl 20 ml STK-MED ONCE .ROUTE ; Start 11/13/16 at 10:55; Stop at 10:56; Status DC Fentanyl Citrate (Fentanyl 2ml Vial) 100 mcg STK-MED ONCE .ROUTE ; Start at 11:17; Stop 11/13/16 at 11:18; Status DC Midazolam HCl (Versed) 2 mg STK-MED ONCE .ROUTE ; Start 11/13/16 at 11:17; Stop 11/13/16 at 11:18; Status DC Heparin Sodium/ Sodium Chloride 1,000 unit 1X ONCE IART Last administered on 11:59; Start 11/13/16 at 11:30; Stop 11/13/16 at 11:31; Status DC Midazolam HCl (Versed) 2 mg 1X ONCE IV Last administered on 11/13/16 11:59; Start 11/13/16 at 11:30; Stop 11/13/16 at 11:31; Status DC Fentanyl Citrate (Fentanyl 2ml Vial) 100 mcg 1X ONCE IV Last administered on 12:00; Start 11/13/16 at 11:30; Stop 11/13/16 at 11:31; Status DC Iohexol (Omnipaque 300 Mg/ml) 100 ml 1X ONCE IART Last administered on 12:00; Start 11/13/16 at 11:30; Stop 11/13/16 at 11:31; Status DC Lidocaine HCl 20 ml 1X ONCE IJ Last administered on 11/13/16 11:58; Start at 11:30; Stop 11/13/16 at 11:31; Status DC Midazolam HCl (Versed) 2 mg STK-MED ONCE .ROUTE ; Start 11/13/16 at 11:29; Stop 11/13/16 at 11:30; Status DC Ondansetron HCl (Zofran) 4 mg PRN Q6HRS PRN IV NAUSEA/VOMITING; Start 11/14/16 at 07:00; Stop 11/15/16 at 06:59; Status DC Fentanyl Citrate (Fentanyl 2ml Vial) 25 mcg PRN Q5MIN PRN IV MILD PAIN; Start 11/14/16 at 07:00; Stop 11/15/16 at 06:59; Status DC Fentanyl Citrate (Fentanyl 2ml Vial) 50 mcg PRN Q5MIN PRN IV MODERATE PAIN; Start 11/14/16 at 07:00; Stop 11/15/16 at 06:59; Status DC Ringer's Solution 1,000 ml @ 30 mls/hr Q24H IV ; Start 11/14/16 at 07:00; Stop 11/14/16 at 18:59; Status DC Lidocaine HCl 2 ml PRN 1X PRN ID PRIOR TO IV START; Start 11/14/16 at 07:00; Stop 11/15/16 at 06:59; Status DC Prochlorperazine Edisylate (Compazine) 5 mg PACU PRN PRN IV NAUSEA, MRX1; Start 11/14/16 at 07:00; Stop 11/15/16 at 06:59; Status DC Sodium Chloride 1,000 ml @ 1,000 mls/hr Q1H PRN IV hypotension; Start 11/13/16 at 15:38; Stop 11/13/16 at 21:37; Status DC Info (PHARMACY MONITORING -- do not chart) 1 each PRN DAILY PRN MC SEE COMMENTS ; Start 11/13/16 at 15:45 Info (PHARMACY MONITORING -- do not chart) 1 each PRN DAILY PRN MC SEE COMMENTS ; Start 11/13/16 at 15:45; Status UNV Cefazolin Sodium 1 gm/Sodium Chloride 50 ml @ 100 mls/hr 1X ONCE IV Last administered on 11/14/16 15:56; Start 11/14/16 at 06:00; Stop 11/14/16 at 06:29 ; Status DC Metoprolol Tartrate (Lopressor) 25 mg BID PO Last administered on 11/15/16 08: 28; Start 11/14/16 at 09:30 Bacitracin 13926 unit/Sodium Chloride 250 ml @ 250 mls/hr 1X ONCE IRR Last administered on 11/14/16 15:40; Start 11/14/16 at 15:00; Stop 11/14/16 at 15:59 ; Status DC Lidocaine HCl 20 ml STK-MED ONCE .ROUTE ; Start 11/14/16 at 14:54; Stop at 14:55; Status DC Fentanyl Citrate (Fentanyl 5ml Vial) 250 mcg STK-MED ONCE .ROUTE ; Start at 14:55; Stop 11/14/16 at 14:56; Status DC Midazolam HCl (Versed) 5 mg STK-MED ONCE .ROUTE ; Start 11/14/16 at 14:55; Stop 11/14/16 at 14:56; Status DC Lidocaine HCl 20 ml STK-MED ONCE .ROUTE ; Start 11/14/16 at 14:57; Stop at 14:58; Status DC Midazolam HCl (Versed) 5 mg 1X ONCE IV Last administered on 11/14/16 15:59; Start 11/14/16 at 15:30; Stop 11/14/16 at 15:31; Status DC Fentanyl Citrate (Fentanyl 2ml Vial) 100 mcg 1X ONCE IV Last administered on 15:30; Start 11/14/16 at 15:30; Stop 11/14/16 at 15:31; Status DC Lidocaine HCl 20 ml 1X ONCE IJ Last administered on 11/14/16 15:58; Start at 15:30; Stop 11/14/16 at 15:31; Status DC Cefazolin Sodium 1 gm/Sodium Chloride 50 ml @ 100 mls/hr 1X ONCE IV ; Start at 16:15; Stop 11/14/16 at 16:44; Status UNV Magnesium Sulfate/ Dextrose 50 ml @ 25 mls/hr 1X ONCE IV Last administered on 11/14/16 22:30; Start 11/14/16 at 22:30; Stop 11/15/16 at 00:29; Status DC Amiodarone HCl 150 mg/Dextrose 103 ml @ 618 mls/hr 1X ONCE IV Last administered on 11/15/16 01:13; Start 11/15/16 at 01:00; Stop 11/15/16 at 01:09 ; Status DC Amiodarone HCl 900 mg/Dextrose 518 ml @ 0 mls/hr CONT PRN IV SEE I/O RECORD Last administered on 11/15/16t 01:20; Start 11/15/16 at 01:15; Stop 11/15/16 at 01:20; Status DC Insulin Aspart (NovoLOG) 0-7 UNITS TIDWMEALS SQ ; Start 11/15/16 at 12:00 Dextrose (Dextrose 50%-Water Syringe) 12.5 gm PRN Q15MIN PRN IV SEE COMMENTS; Start 11/15/16 at 08:30 Sodium Chloride 1,000 ml @ 1,000 mls/hr Q1H PRN IV hypotension; Start 11/15/16 at 08:59; Stop 11/15/16 at 14:58 Info (PHARMACY MONITORING -- do not chart) 1 each PRN DAILY PRN MC SEE COMMENTS ; Start 11/15/16 at 09:00; Status UNV Info (PHARMACY MONITORING -- do not chart) 1 each PRN DAILY PRN MC SEE COMMENTS ; Start 11/15/16 at 09:00; Status UNV Heparin Sodium (Porcine) (Heparin Sq) 5,000 unit Q8HRS SQ ; Start 11/15/16 at 14 :00 Active Scripts Active Lisinopril 40 Mg Tablet 40 Mg PO QTUTHSASU Carvedilol 3.125 Mg Tablet 3.125 Mg PO BIDWMEALS Reported Sertraline Hcl 50 Mg Tablet 50 Mg PO QHS Sensipar (Cinacalcet Hcl) 30 Mg Tablet 1 Tab PO QHS Alayna-Oneil Rx Tablet (Vit B Cmplx 3/Fa/Vit C/Biotin) 1 Each Tablet 1 Each PO DAILY Cranberry Plus Vitamin C Sftgl (Cranberry Conc/Ascorbic Acid) 1 Each Capsule 1 Each PO DAILY Lipitor (Atorvastatin Calcium) 10 Mg Tablet 1 Tab PO DAILY Coricidin Hbp Tablet (Acetaminophen/Chlorpheniramine) 1 Each Tablet 1 Each PO PRN Ferric Citrate 210 Mg Tablet 210 Mg PO TIDWMEALS Alprazolam 0.25 Mg Tablet 1 Tab PO DAILY PRN Plavix (Clopidogrel Bisulfate) 75 Mg Tablet 75 Mg PO DAILY Calcium Acetate 667 Mg Tablet 2 Tab PO TIDWMEALS last dose was this am next dose is wiith supper Tylenol Extra Strength (Acetaminophen) 500 Mg Tablet 500 Mg PO PRN Q12HRS PRN not given in hospital may resume when needed Metolazone 2.5 Mg Tablet 2.5 Mg PO 3X/WEEK Furosemide 40 Mg Tablet 60 Mg PO PRN PRN not given in hospital may take as instructed by provider Potassium Chloride 20 Meq Tab.er.prt 20 Meq PO WEEKLY PRN was not given in hospital Gabapentin 300 Mg Capsule 300 Mg PO DAILY Crestor (Rosuvastatin Calcium) 5 Mg Tablet 5 Mg PO HS was not given in the hospital as requested will resume at home Lantus (Insulin Glargine,Hum.rec.anlog) 100 Unit/1 Ml Vial 50 Unit SQ HS refused to take last night stated she would take her own at home Benadryl Allergy (Diphenhydramine Hcl) 25 Mg Tablet 25 Mg PO PRN not given in the hospital Aspir 81 (Aspirin) 81 Mg Tablet.dr 81 Mg PO DAILY last dose was this am resume in am Vitals/I & O Vital Sign - Last 24 Hours 11/14/16 11/14/16 11/14/16 11/14/16 11:53 12:00 15:30 16:00 Temp 98.9 98.9 98.9 98.9 Pulse 54 62 Resp 22 17 22 B/P (MAP) 141/66 (91) 131/62 (85) Pulse Ox 100 100 95 100 O2 Delivery Room Air Nasal Cannula Room Air Room Air O2 Flow Rate 1.0 3.0 11/14/16 11/14/16 11/14/16 11/14/16 16:04 19:32 20:00 20:00 Temp 98.3 98.3 Pulse 60 60 Resp 14 14 B/P (MAP) 139/55 (83) Pulse Ox 97 93 100 O2 Delivery Nasal Cannula Nasal Cannula Room Air Nasal Cannula O2 Flow Rate 3.0 3.0 2.0 11/14/16 11/15/16 11/15/16 11/15/16 21:19 00:00 01:13 04:00 Temp 98.6 98.6 Pulse 60 60 60 64 Resp 13 15 B/P (MAP) 128/56 133/56 (81) 118/44 132/82 (99) Pulse Ox 100 100 O2 Delivery Room Air Room Air 11/15/16 11/15/16 11/15/16 08:00 08:01 08:28 Pulse 60 B/P (MAP) 122/48 O2 Delivery Nasal Cannula Room Air O2 Flow Rate 2.0 Intake and Output 11/14/16 11/14/16 11/15/16 15:00 23:00 07:00 Intake Total 900 ml Output Total 0 ml Balance 0 ml 900 ml KAILA VALDOVINOS MD Nov 15, 2016 11:16
--- NOTE | 2016-11-15 11:33 | PDOC ---
PULMONARY PROGRESS NOTES Subjective on hd, extubated on 11/12, aicd, 08/14, has had nsvtach, aicd fired mutiple times , on amio iv now. has chest wall pain, better, has cough, sputum, no sob, is tired Vitals Vital Signs Date Time Temp Pulse Resp B/P (MAP) Pulse Ox O2 Delivery O2 Flow Rate FiO2 11/15/16 08:28 60 122/48 11/15/16 08:01 Room Air 11/15/16 08:00 2.0 11/15/16 04:00 98.6 15 100 98.6 Comments ros as mentioned as above other sys otherwise neg ROS: No Nausea, No Abdominal Pain General: Alert, Oriented X4 HEENT: Other (nc at perrl. shallow oropharynx. nose clear. neck, no lap, no thyromegaly) Lungs: Clear Cardiovascular: S1, S2 Abdomen: Soft, Non-tender Neuro Exam: Alert, Oriented Extremities: No Edema Skin: Warm Labs Laboratory Tests Test 11/13/16 17:34 11/13/16 21:07 11/14/16 03:10 11/14/16 09:22 Glucose (Fingerstick) 127 mg/dL (70-99) 196 mg/dL (70-99) 56 mg/dL (70-99) White Blood Count 7.6 x10^3/uL (4.0-11.0) Red Blood Count 2.82 x10^6/uL (3.50-5.40) Hemoglobin 8.3 g/dL (12.0-15.5) Hematocrit 25.2 % (36.0-47.0) Mean Corpuscular Volume 89 fL (79-100) Mean Corpuscular Hemoglobin 29 pg (25-35) Mean Corpuscular Hemoglobin Concent 33 g/dL (31-37) Red Cell Distribution Width 16.6 % (11.5-14.5) Platelet Count 142 x10^3/uL (140-400) Sodium Level 139 mmol/L (136-145) Potassium Level 4.4 mmol/L (3.5-5.1) Chloride Level 102 mmol/L (98-107) Carbon Dioxide Level 30 mmol/L (21-32) Anion Gap 7 (6-14) Blood Urea Nitrogen 23 mg/dL (7-20) Creatinine 3.7 mg/dL (0.6-1.0) Estimated GFR (Cockcroft-Gault) 12.3 Glucose Level 166 mg/dL (70-99) Calcium Level 8.3 mg/dL (8.5-10.1) Magnesium Level 2.0 mg/dL (1.8-2.4) Test 11/14/16 09:46 11/14/16 18:46 11/14/16 19:32 11/14/16 19:49 Glucose (Fingerstick) 157 mg/dL (70-99) 52 mg/dL (70-99) 60 mg/dL (70-99) 60 mg/dL (70-99) Test 11/14/16 20:15 11/15/16 03:00 11/15/16 08:24 Glucose (Fingerstick) 83 mg/dL (70-99) 195 mg/dL (70-99) Sodium Level 139 mmol/L (136-145) Potassium Level 4.7 mmol/L (3.5-5.1) Chloride Level 103 mmol/L (98-107) Carbon Dioxide Level 29 mmol/L (21-32) Anion Gap 7 (6-14) Blood Urea Nitrogen 30 mg/dL (7-20) Creatinine 4.6 mg/dL (0.6-1.0) Estimated GFR (Cockcroft-Gault) 9.6 Glucose Level 205 mg/dL (70-99) Calcium Level 8.3 mg/dL (8.5-10.1) Magnesium Level 2.7 mg/dL (1.8-2.4) Laboratory Tests Test 11/14/16 18:46 11/14/16 19:32 11/14/16 19:49 11/14/16 20:15 Glucose (Fingerstick) 52 mg/dL (70-99) 60 mg/dL (70-99) 60 mg/dL (70-99) 83 mg/dL (70-99) Test 11/15/16 03:00 11/15/16 08:24 Sodium Level 139 mmol/L (136-145) Potassium Level 4.7 mmol/L (3.5-5.1) Chloride Level 103 mmol/L (98-107) Carbon Dioxide Level 29 mmol/L (21-32) Anion Gap 7 (6-14) Blood Urea Nitrogen 30 mg/dL (7-20) Creatinine 4.6 mg/dL (0.6-1.0) Estimated GFR (Cockcroft-Gault) 9.6 Glucose Level 205 mg/dL (70-99) Calcium Level 8.3 mg/dL (8.5-10.1) Magnesium Level 2.7 mg/dL (1.8-2.4) Glucose (Fingerstick) 195 mg/dL (70-99) Medications Active Scripts Medications Dose Route/Sig Max Daily Dose Days Date Category Dose Instructions Sertraline Hcl 50 Mg Tablet 50 Mg PO QHS 11/11/16 Reported Sensipar (Cinacalcet Hcl) 30 Mg Tablet 1 Tab PO QHS 11/11/16 Reported Alayna-Oneil Rx Tablet (Vit B Cmplx 3/Fa/Vit C/Biotin) 1 Each Tablet 1 Each PO DAILY 11/11/16 Reported Cranberry Plus Vitamin C Sftgl (Cranberry Conc/Ascorbic Acid) 1 Each Capsule 1 Each PO DAILY 11/11/16 Reported Lipitor (Atorvastatin Calcium) 10 Mg Tablet 1 Tab PO DAILY 11/11/16 Reported Coricidin Hbp Tablet (Acetaminophen/Chlorpheniramine) 1 Each Tablet 1 Each PO PRN 11/11/16 Reported Ferric Citrate 210 Mg Tablet 210 Mg PO TIDWMEALS 11/11/16 Reported Alprazolam 0.25 Mg Tablet 1 Tab PO DAILY PRN 11/11/16 Reported Lisinopril 40 Mg Tablet 40 Mg PO QTUTHSASU 10/25/16 Rx Carvedilol 3.125 Mg Tablet 3.125 Mg PO BIDWMEALS 10/25/16 Rx Plavix (Clopidogrel Bisulfate) 75 Mg Tablet 75 Mg PO DAILY 10/21/16 Reported Calcium Acetate 667 Mg Tablet 2 Tab PO TIDWMEALS 02/22/15 Reported last dose was this am next dose is wiith supper Tylenol Extra Strength (Acetaminophen) 500 Mg Tablet 500 Mg PO PRN Q12HRS PRN 02/22/15 Reported not given in hospital may resume when needed Metolazone 2.5 Mg Tablet 2.5 Mg PO 3X/WEEK 10/02/14 Reported Furosemide 40 Mg Tablet 60 Mg PO PRN PRN 10/02/14 Reported not given in hospital may take as instructed by provider Potassium Chloride 20 Meq Tab.er.prt 20 Meq PO WEEKLY PRN 7/13/15 Reported was not given in hospital Gabapentin 300 Mg Capsule 300 Mg PO DAILY 10/02/14 Reported Crestor (Rosuvastatin Calcium) 5 Mg Tablet 5 Mg PO HS 08/18/13 Reported was not given in the hospital as requested will resume at home Lantus (Insulin Glargine,Hum.rec.anlog) 100 Unit/1 Ml Vial 50 Unit SQ HS 05/31/13 Reported refused to take last night stated she would take her own at home Benadryl Allergy (Diphenhydramine Hcl) 25 Mg Tablet 25 Mg PO PRN 05/31/13 Reported not given in the hospital Aspir 81 (Aspirin) 81 Mg Tablet.dr 81 Mg PO DAILY 05/31/13 Reported last dose was this am resume in am Comments cxr reviewed, Findings are unchanged, small bilateral pleural effusions with adjacent airspace opacity. Impression . IMPRESSION: 1. Acute hypoxemic respiratory failure, multifactorial in etiology including acute diastolic congestive heart failure, volume overload, acute exacerbation of chronic obstructive pulmonary disease, ventricular tachycardic versus others. 2. Abnormal chest x-ray. 3. Infiltrates/atelectasis. 4. Acute exacerbation of chronic obstructive pulmonary disease. 5. Acute diastolic congestive heart failure and volume overload. 6. Ventricular tachycardia, questionable etiology. 7. Coronary artery disease status post stent on 10/24/2016. 8. Tobacco habituation. 9. End-stage renal disease, on hemodialysis. 10. Diabetes mellitus. 11. Hypertension. 12. Overweight, questionable obstructive sleep apnea-hypopnea syndrome. 13. snoring, eds, obesity, ? alejandro 14. nsvtach,, aicd Plan . PLAN AND RECOMMENDATIONS: 1. Titrate FiO2 to keep O2 saturation 94%. 2. Bronchodilator. 3. inhaled corticosteroid. 4. aicd, on iv amio 5. amio 6. Protonix for stress ulcer prophylaxis. 7. SCDs for DVT prophylaxis. start Lovenox when ok w cardiology. 8. Elevate head of bed. 9. Monitor respiratory status very closely. 10. Hemodialysis per Nephrology. 11. The findings and recommendations were discussed with RN and RT. 12. Sleep study as an outpatient. alejandro the importance of diagnosis and tx were discussed 13. quit smoking for ever discussed w rn pt VICKEY FLOR MD Nov 15, 2016 11:33
[2016-11-15 12:00] VITALS: BP 135/54
[2016-11-15] MEDS: INSULIN ASPART 300 UNITS/3 ML INSULN.PEN SQ SCH ×2 (12:00→16:31)
[2016-11-15] MEDS: CEFEPIME HCL 1 GM in IV NORMAL SALINE 50ML 50 ML IV SCH (13:53)
[2016-11-15] MEDS ORDERED: MEXILETINE 150 MG CAPSULE PO SCH (14:00)
[2016-11-15] MEDS: LISINOPRIL 40 MG TABLET. PO SCH (15:43)
[2016-11-15] MEDS: HEPARIN PF for SUB-Q USE 5,000 UNIT/0.5 ML VIAL. SQ SCH ×2 (15:44→21:23)
[2016-11-15 16:00] VITALS: BP 115/46
[2016-11-15] MEDS: MEXILETINE HCL 200 MG CAPSULE PO SCH ×2 (16:22→21:22)
[2016-11-15] MEDS: CALCIUM CARBONATE 500 MG TAB.CHEW PO PRN ×2 (16:37→19:51)
[2016-11-15] MEDS ORDERED: AMIODARONE 450 MG in IV DEXTROSE 5% 250 ML IV PRN (19:45)
[2016-11-15 20:00] VITALS: BP 154/53
[2016-11-15] MEDS: ATORVASTATIN CALCIUM 10 MG TABLET. PO SCH (21:21)
[2016-11-15] MEDS: CINACALCET HCL 30 MG TABLET PO SCH (21:22)
[2016-11-15] MEDS: SERTRALINE 50 MG TABLET. PO SCH (21:24)
[2016-11-15] MEDS: ONDANSETRON PF 4 MG/2 ML VIAL. IV PRN (22:13)
[2016-11-15] MEDS: HYDROcodone/APAP 10/325 1 TAB TABLET PO PRN (23:05)
[2016-11-16] VITALS (7 sets, daily range): BP systolic 101–164; BP diastolic 55–69
[2016-11-16] MEDS: HEPARIN PF for SUB-Q USE 5,000 UNIT/0.5 ML VIAL. SQ SCH ×3 (06:13→21:16)
[2016-11-16] MEDS: MEXILETINE HCL 200 MG CAPSULE PO SCH ×3 (06:13→20:58)
[2016-11-16] MEDS: CALCIUM CARBONATE 500 MG TAB.CHEW PO PRN ×2 (06:16→10:48)
[2016-11-16 06:17] LABS: CALCIUM 8.8 mg/dL (8.5-10.1); GFR 11.2; MAGNESIUM 2.4 mg/dL (1.8-2.4)
[2016-11-16] MEDS: CLOPIDOGREL BISULFATE 75 MG TABLET PO SCH (07:48)
[2016-11-16] MEDS: ASPIRIN ENTERIC COATED 81 MG TABLET.DR. PO SCH (07:48)
[2016-11-16] MEDS: PANTOPRAZOLE 40 MG TABLET.DR. PO SCH (07:49)
[2016-11-16] MEDS: HYDROcodone/APAP 10/325 1 TAB TABLET PO PRN ×3 (07:49→21:00)
[2016-11-16] MEDS: IPRATRPIUM/ALBUTEROL 0.5/2.5MG 3 ML NEBU. NEB SCH (08:07)
[2016-11-16] MEDS: BUDESONIDE 0.5 MG/2 ML NEBU. NEB SCH ×2 (08:07→19:22)
[2016-11-16] MEDS: GABAPENTIN 300 MG CAPSULE. PO SCH (09:18)
[2016-11-16] MEDS: METOPROLOL TART IMMED RELEASE 25 MG TABLET. PO SCH ×2 (09:19→20:59)
[2016-11-16] MEDS: CALCIUM ACETATE 667 MG CAPSULE PO SCH ×3 (09:19→17:00)
[2016-11-16] MEDS: FOLIC/VIT B COMP W-C (RENAL) TABLET. PO SCH (09:19)
--- NOTE | 2016-11-16 10:16 | PDOC ---
PROGRESS NOTES Chief Complaint Chief Complaint Acute respiratory failure s/p non sustained Vtach now on IPPV (11/11/16) s/p EXTUBATION (11/12) - dyspnea, acute diastolic CHF exacerbation due to missed HD normocytic anemia, esrd anemia of CKD chest tightness, pain elevated troponin with chf, esrd ESRD on hd t,,s hyperkalemia mild malnutrition, has worsened since admit, dm2, not on meds hld Hx of recent [employer]/stent to lef subclavian artery tobaccoism, NON SUSTAINED [facility] (11/14) History of Present Illness History of Present Illness s/p AICD (11/14) Went to [facility] Thursday Had AICD firing again thursday night AICD to be checked again second time today (thursday) AICd did fire thursday - woke her up from sleep On amio gtt OTherwsie, breathing ok, eating well, doing very well. BAck to SNU on dc PLAN: Dw cards AMio gtt ,per cards LOcal pain control site AICD HD per renal Looking good otherwise AICD to be check again today seen in ICU Vitals Vitals Vital Signs Date Time Temp Pulse Resp B/P (MAP) Pulse Ox O2 Delivery O2 Flow Rate FiO2 11/16/16 09:19 60 158/68 11/16/16 08:09 89 Room Air 11/16/16 07:49 18 11/16/16 04:00 98.1 2.0 98.1 Physical Exam General: mild distress Heart: Regular rate Lungs: Clear Abdomen: Normal bowel sounds Extremities: No cyanosis, Other (1+ bilateral LE pitting edema) Skin: No breakdown Labs LABS Laboratory Tests Test 11/15/16 12:00 11/15/16 16:28 11/16/16 04:00 Glucose (Fingerstick) 154 mg/dL (70-99) 253 mg/dL (70-99) Sodium Level 136 mmol/L (136-145) Potassium Level 5.0 mmol/L (3.5-5.1) Chloride Level 101 mmol/L (98-107) Carbon Dioxide Level 33 mmol/L (21-32) Anion Gap 2 (6-14) Blood Urea Nitrogen 21 mg/dL (7-20) Creatinine 4.0 mg/dL (0.6-1.0) Estimated GFR (Cockcroft-Gault) 11.2 Glucose Level 182 mg/dL (70-99) Calcium Level 8.8 mg/dL (8.5-10.1) Magnesium Level 2.4 mg/dL (1.8-2.4) Review of Systems Review of Systems denies 14 pt, pain when aicd fires Assessment and Plan Assessmemt and Plan Problems Medical Problems: (1) Fluid overload Status: Acute (2) Hypoxia Status: Acute (3) Pneumonia Status: Acute (4) SIRS (systemic inflammatory response syndrome) Status: Acute Problems: Comment Review of Relevant I have reviewed the following items ashley (where applicable) has been applied. Labs Laboratory Tests Test 11/14/16 18:46 11/14/16 19:32 11/14/16 19:49 11/14/16 20:15 Glucose (Fingerstick) 52 mg/dL (70-99) 60 mg/dL (70-99) 60 mg/dL (70-99) 83 mg/dL (70-99) Test 11/15/16 03:00 11/15/16 08:24 11/15/16 12:00 11/15/16 16:28 Sodium Level 139 mmol/L (136-145) Potassium Level 4.7 mmol/L (3.5-5.1) Chloride Level 103 mmol/L (98-107) Carbon Dioxide Level 29 mmol/L (21-32) Anion Gap 7 (6-14) Blood Urea Nitrogen 30 mg/dL (7-20) Creatinine 4.6 mg/dL (0.6-1.0) Estimated GFR (Cockcroft-Gault) 9.6 Glucose Level 205 mg/dL (70-99) Calcium Level 8.3 mg/dL (8.5-10.1) Magnesium Level 2.7 mg/dL (1.8-2.4) Glucose (Fingerstick) 195 mg/dL (70-99) 154 mg/dL (70-99) 253 mg/dL (70-99) Test 11/16/16 04:00 Sodium Level 136 mmol/L (136-145) Potassium Level 5.0 mmol/L (3.5-5.1) Chloride Level 101 mmol/L (98-107) Carbon Dioxide Level 33 mmol/L (21-32) Anion Gap 2 (6-14) Blood Urea Nitrogen 21 mg/dL (7-20) Creatinine 4.0 mg/dL (0.6-1.0) Estimated GFR (Cockcroft-Gault) 11.2 Glucose Level 182 mg/dL (70-99) Calcium Level 8.8 mg/dL (8.5-10.1) Magnesium Level 2.4 mg/dL (1.8-2.4) Laboratory Tests Test 11/15/16 12:00 11/15/16 16:28 11/16/16 04:00 Glucose (Fingerstick) 154 mg/dL (70-99) 253 mg/dL (70-99) Sodium Level 136 mmol/L (136-145) Potassium Level 5.0 mmol/L (3.5-5.1) Chloride Level 101 mmol/L (98-107) Carbon Dioxide Level 33 mmol/L (21-32) Anion Gap 2 (6-14) Blood Urea Nitrogen 21 mg/dL (7-20) Creatinine 4.0 mg/dL (0.6-1.0) Estimated GFR (Cockcroft-Gault) 11.2 Glucose Level 182 mg/dL (70-99) Calcium Level 8.8 mg/dL (8.5-10.1) Magnesium Level 2.4 mg/dL (1.8-2.4) Microbiology 11/11/16 Blood Culture - Preliminary, Resulted NO GROWTH AFTER 4 DAYS Medications Current Medications Sodium Chloride 1,000 ml @ 100 mls/hr Q10H IV Last administered on 11/11/16 12:04; Start 11/11/16 at 11:40; Stop 11/11/16 at 21:39; Status DC Iohexol (Omnipaque 300 Mg/ml) 75 ml 1X ONCE IV Last administered on 11/11/16 12:45; Start 11/11/16 at 12:45; Stop 11/11/16 at 12:46; Status DC Info (Do NOT chart on this entry -- for MONITORING) 1 each PRN DAILY PRN MC SEE COMMENTS; Start 11/11/16 at 13:00; Stop 11/13/16 at 12:59; Status DC Ondansetron HCl (Zofran) 4 mg PRN Q6HRS PRN IV NAUSEA/VOMITING Last administered on 11/15/16 22:13; Start 11/11/16 at 13:30 Prochlorperazine Edisylate (Compazine) 10 mg PRN Q6HRS PRN IV NAUSEA/VOMITING, 2nd choice; Start 11/11/16 at 13:30 Prochlorperazine (Compazine) 25 mg PRN Q12HR PRN SD NAUSEA/VOMITING; Start at 13:30 Al Hydroxide/Mg Hydroxide (Mylanta Plus Xs) 30 ml PRN Q3HRS PRN PO HEARTBURN / GAS; Start 11/11/16 at 13:30; Status Cancel Calcium Carbonate/ Glycine (Tums) 500 mg PRN Q3HRS PRN PO UPSET STOMACH Last administered on 11/16/16 06:16; Start 11/11/16 at 13:30 Acetaminophen/ Hydrocodone Bitart (Lortab 5/325) 1 tab PRN Q4HRS PRN PO MILD PAIN Last administered on 11/15/16 13:59; Start 11/11/16 at 13:30; Stop at 19:10; Status DC Acetaminophen (Tylenol) 650 mg PRN Q6HRS PRN PO Headaches, Temp > 101.5F; Start 11/11/16 at 13:30 Heparin Sodium (Porcine) (Heparin Sq) 5,000 unit Q8HRS SQ Last administered on 11/11/16 22:05; Start 11/11/16 at 22:00; Stop 11/12/16 at 01:51; Status DC Fentanyl Citrate (Fentanyl 2ml Vial) 50 mcg PRN Q2HR PRN IV pain; Start at 13:30 Albuterol/ Ipratropium (Duoneb) 3 ml RTQID NEB Last administered on 11/16/16 08:07; Start 11/11/16 at 16:00 Nicotine (Nicoderm Cq 21mg) 1 patch PRN DAILY PRN TD SMOKING CESSATION; Start 11/11/16 at 13:30 Guaifenesin (Robitussin Dm) 10 ml PRN Q6HRS PRN PO COUGH; Start 11/11/16 at 13: 30 Acetaminophen (Tylenol) 500 mg PRN Q12HRS PRN PO MILD PAIN, 1st choice; Start 11/11/16 at 13:45 Alprazolam (Xanax) 0.25 mg DAILY PRN PO ANXIETY / AGITATION Last administered on 11/15/16 13:58; Start 11/11/16 at 13:45 Aspirin (Ecotrin) 81 mg DAILYWBKFT PO Last administered on 11/16/16 07:48; Start 11/12/16 at 08:00 Atorvastatin Calcium (Lipitor) 10 mg QHS PO Last administered on 11/15/16 21: 21; Start 11/11/16 at 21:00 Carvedilol (Coreg) 3.125 mg BIDWMEALS PO Last administered on 11/11/16 22:06; Start 11/11/16 at 17:00; Stop 11/12/16 at 10:41; Status DC Cinacalcet (Sensipar) 30 mg QHS PO Last administered on 11/15/16 21:22; Start 11/11/16 at 21:00 Clopidogrel Bisulfate (Plavix) 75 mg DAILYWBKFT PO Last administered on 07:48; Start 11/12/16 at 08:00 Furosemide (Lasix) 60 mg DAILY PRN PO SEE COMMENTS Last administered on 09:34; Start 11/11/16 at 13:45 Lisinopril (Prinivil) 40 mg QTUTHSASU PO Last administered on 11/15/16 15:43; Start 11/11/16 at 16:00 Metolazone (Zaroxolyn) 2.5 mg 3X/WEEK PO ; Start 11/12/16 at 09:00 Potassium Chloride (Klor-Con) 20 meq WEEKLY PRN PO SEE COMMENTS; Start at 13:45 Sertraline HCl (Zoloft) 50 mg QHS PO Last administered on 11/15/16 21:24; Start 11/11/16 at 21:00 Calcium Acetate (Phoslo) 1,334 mg TIDWMEALS PO Last administered on 11/16/16 09:19; Start 11/11/16 at 17:00 Non-Formulary Medication 1 each DAILY PO ; Start 11/12/16 at 09:00; Status UNV Non-Formulary Medication 210 mg TIDWMEALS PO ; Start 11/11/16 at 17:00; Status UNV Gabapentin (Neurontin) 300 mg DAILY PO Last administered on 11/16/16 09:18; Start 11/12/16 at 09:00 Insulin Detemir (Levemir) 50 units QHS SQ Last administered on 11/13/16 21:21 ; Start 11/11/16 at 21:00; Stop 11/15/16 at 08:30; Status DC Non-Formulary Medication 5 mg HS PO ; Start 11/11/16 at 21:00; Status UNV Vitamin B Complex/ Vitamin C (Alayna-Oneil) 1 tab DAILY PO Last administered on 09:19; Start 11/12/16 at 09:00 Insulin Aspart (NovoLOG) 0-9 UNITS TIDWMEALS SQ ; Start 11/11/16 at 17:00; Stop 11/15/16 at 08:30; Status DC Dextrose (Dextrose 50%-Water Syringe) 12.5 gm PRN Q15MIN PRN IV SEE COMMENTS Last administered on 11/14/16 09:25; Start 11/11/16 at 13:45; Stop 11/15/16 at 09:54; Status DC Sodium Chloride 1,000 ml @ 100 mls/hr Q10H IV Last administered on 11/12/16 06:05; Start 11/11/16 at 13:49; Stop 11/11/16 at 23:48; Status DC Albuterol/ Ipratropium (Duoneb) 3 ml 1X ONCE NEB Last administered on 14:56; Start 11/11/16 at 14:00; Stop 11/11/16 at 14:31; Status DC Methylprednisolone Sodium Succinate (SOLU-Medrol 125MG VIAL) 125 mg 1X ONCE IV Last administered on 11/11/16 14:58; Start 11/11/16 at 14:30; Stop 11/11/16 at 14:32; Status DC Cefepime HCl 1 gm/ Sodium Chloride 50 ml @ 100 mls/hr Q24H IV Last administered on 11/15/16 13:53; Start 11/12/16 at 14:00 Vancomycin HCl 1.5 gm/Sodium Chloride 500 ml @ 250 mls/hr 1X ONCE IV ; Start 11/11/16 at 14:30; Stop 11/11/16 at 16:29; Status UNV Vancomycin HCl 2 gm/Sodium Chloride 500 ml @ 250 mls/hr ONCE ONCE IV Last administered on 11/11/16 20:30; Start 11/11/16 at 14:30; Stop 11/11/16 at 16:29 ; Status DC Cefepime HCl 1 gm/ Sodium Chloride 50 ml @ 100 mls/hr ONCE ONCE IV Last administered on 11/11/16 15:01; Start 11/11/16 at 14:45; Stop 11/11/16 at 15:14 ; Status DC Amiodarone HCl 150 mg/Dextrose 103 ml @ 618 mls/hr 1X ONCE IV ; Start at 01:30; Stop 11/12/16 at 01:39; Status DC Amiodarone HCl 900 mg/Dextrose 518 ml @ 0 mls/hr CONT PRN IV SEE I/O RECORD Last administered on 11/12/16 06:07; Start 11/12/16 at 01:45; Stop 11/12/16 at 06:07; Status DC Etomidate (Amidate) 20 mg 1X ONCE IV ; Start 11/12/16 at 01:15; Stop 11/12/16 at 01:16; Status DC Rocuronium Beccaria (Zemuron) 100 mg 1X ONCE IV ; Start 11/12/16 at 01:15; Stop 11/12/16 at 01:16; Status DC Etomidate (Amidate) 20 mg STK-MED ONCE IV ; Start 11/12/16 at 01:03; Stop at 01:04; Status DC Propofol 100 ml @ As Directed STK-MED ONCE IV ; Start 11/12/16 at 01:17; Stop 11/12/16 at 01:18; Status DC Propofol 100 ml @ 0 mls/hr CONT PRN IV SEE I/O RECORD; Start 11/12/16 at 01:30 ; Stop 11/13/16 at 09:06; Status DC Rocuronium Beccaria (Zemuron) 50 mg STK-MED ONCE .ROUTE ; Start 11/12/16 at 01:33 ; Stop 11/12/16 at 01:34; Status DC Heparin Sodium (Porcine) (Heparin Sodium) 4,000 unit 1X ONCE IV Last administered on 11/12/16 02:56; Start 11/12/16 at 02:00; Stop 11/12/16 at 02:01 ; Status DC Heparin Sodium/ Dextrose 500 ml @ 0 mls/hr CONT PRN IV SEE I/O RECORD Last administered on 11/13/16 04:00; Start 11/12/16 at 01:45; Stop 11/15/16 at 09:59 ; Status DC Heparin Sodium (Porcine) (Heparin Sodium) 1,750 unit PRN Q6HRS PRN IV FOR UFH LEVEL LESS THAN 0.2 Last administered on 11/13/16 03:17; Start 11/12/16 at 01: 45; Stop 11/15/16 at 09:59; Status DC Info (Anti-Coagulation Monitoring By Pharmacy) 1 each PRN DAILY PRN MC SEE COMMENTS Last administered on 11/14/16 11:07; Start 11/12/16 at 02:00; Stop at 10:03; Status DC Pantoprazole Sodium (Protonix) 40 mg DAILYAC PO Last administered on 11/16/16 07:49; Start 11/12/16 at 10:30 Budesonide (Pulmicort) 0.5 mg RTBID NEB Last administered on 11/16/16 08:07; Start 11/12/16 at 10:30 Amiodarone HCl 900 mg/Dextrose 518 ml @ 33.33 mls/ hr CONT PRN IV SEE I/O RECORD Last administered on 11/12/16 13:45; Start 11/12/16 at 10:30; Stop 11/12 at 16:29; Status DC Amiodarone HCl 900 mg/Dextrose 518 ml @ 16.67 mls/ hr CONT PRN IV SEE I/O RECORD; Start 11/12/16 at 10:30; Stop 11/13/16 at 04:29; Status UNV Darbepoetin Jaskaran (Aranesp) 60 mcg WEEKLYHS SQ Last administered on 11/12/16 22 :14; Start 11/12/16 at 21:00 Hydralazine HCl (Apresoline) 10 mg PRN Q4HRS PRN IVP ELEVATED BP, SEE COMMENTS ; Start 11/12/16 at 13:15 Amiodarone HCl (Cordarone) 150 mg STK-MED ONCE .ROUTE ; Start 11/13/16 at 21:00 ; Stop 11/13/16 at 21:01; Status DC Magnesium Sulfate/ Dextrose (Magnesium Sulfate PREMIX 1GM) 1 gm STK-MED ONCE IV ; Start 11/13/16 at 21:00; Stop 11/13/16 at 21:01; Status DC Amiodarone HCl (Cordarone) 200 mg DAILY PO Last administered on 11/14/16 09:18 ; Start 11/13/16 at 10:00 Iohexol (Omnipaque 300 Mg/ml) 100 ml STK-MED ONCE .ROUTE ; Start 11/13/16 at 10: 55; Stop 11/13/16 at 10:56; Status DC Heparin Sodium/ Sodium Chloride 1,000 ml @ As Directed STK-MED ONCE .ROUTE ; Start 11/13/16 at 10:55; Stop 11/13/16 at 10:56; Status DC Lidocaine HCl 20 ml STK-MED ONCE .ROUTE ; Start 11/13/16 at 10:55; Stop at 10:56; Status DC Fentanyl Citrate (Fentanyl 2ml Vial) 100 mcg STK-MED ONCE .ROUTE ; Start at 11:17; Stop 11/13/16 at 11:18; Status DC Midazolam HCl (Versed) 2 mg STK-MED ONCE .ROUTE ; Start 11/13/16 at 11:17; Stop 11/13/16 at 11:18; Status DC Heparin Sodium/ Sodium Chloride 1,000 unit 1X ONCE IART Last administered on 11:59; Start 11/13/16 at 11:30; Stop 11/13/16 at 11:31; Status DC Midazolam HCl (Versed) 2 mg 1X ONCE IV Last administered on 11/13/16 11:59; Start 11/13/16 at 11:30; Stop 11/13/16 at 11:31; Status DC Fentanyl Citrate (Fentanyl 2ml Vial) 100 mcg 1X ONCE IV Last administered on 12:00; Start 11/13/16 at 11:30; Stop 11/13/16 at 11:31; Status DC Iohexol (Omnipaque 300 Mg/ml) 100 ml 1X ONCE IART Last administered on 12:00; Start 11/13/16 at 11:30; Stop 11/13/16 at 11:31; Status DC Lidocaine HCl 20 ml 1X ONCE IJ Last administered on 8/24/17at 11:58; Start at 11:30; Stop 11/13/16 at 11:31; Status DC Midazolam HCl (Versed) 2 mg STK-MED ONCE .ROUTE ; Start 11/13/16 at 11:29; Stop 11/13/16 at 11:30; Status DC Ondansetron HCl (Zofran) 4 mg PRN Q6HRS PRN IV NAUSEA/VOMITING; Start 11/14/16 at 07:00; Stop 11/15/16 at 06:59; Status DC Fentanyl Citrate (Fentanyl 2ml Vial) 25 mcg PRN Q5MIN PRN IV MILD PAIN; Start 11/14/16 at 07:00; Stop 11/15/16 at 06:59; Status DC Fentanyl Citrate (Fentanyl 2ml Vial) 50 mcg PRN Q5MIN PRN IV MODERATE PAIN; Start 11/14/16 at 07:00; Stop 11/15/16 at 06:59; Status DC Ringer's Solution 1,000 ml @ 30 mls/hr Q24H IV ; Start 11/14/16 at 07:00; Stop 11/14/16 at 18:59; Status DC Lidocaine HCl 2 ml PRN 1X PRN ID PRIOR TO IV START; Start 11/14/16 at 07:00; Stop 11/15/16 at 06:59; Status DC Prochlorperazine Edisylate (Compazine) 5 mg PACU PRN PRN IV NAUSEA, MRX1; Start 11/14/16 at 07:00; Stop 11/15/16 at 06:59; Status DC Sodium Chloride 1,000 ml @ 1,000 mls/hr Q1H PRN IV hypotension; Start 11/13/16 at 15:38; Stop 11/13/16 at 21:37; Status DC Info (PHARMACY MONITORING -- do not chart) 1 each PRN DAILY PRN MC SEE COMMENTS ; Start 11/13/16 at 15:45 Info (PHARMACY MONITORING -- do not chart) 1 each PRN DAILY PRN MC SEE COMMENTS ; Start 11/13/16 at 15:45; Status UNV Cefazolin Sodium 1 gm/Sodium Chloride 50 ml @ 100 mls/hr 1X ONCE IV Last administered on 11/14/16t 15:56; Start 11/14/16 at 06:00; Stop 11/14/16 at 06:29 ; Status DC Metoprolol Tartrate (Lopressor) 25 mg BID PO Last administered on 11/16/16 09: 19; Start 11/14/16 at 09:30 Bacitracin 90892 unit/Sodium Chloride 250 ml @ 250 mls/hr 1X ONCE IRR Last administered on 11/14/16 15:40; Start 11/14/16 at 15:00; Stop 11/14/16 at 15:59 ; Status DC Lidocaine HCl 20 ml STK-MED ONCE .ROUTE ; Start 11/14/16 at 14:54; Stop at 14:55; Status DC Fentanyl Citrate (Fentanyl 5ml Vial) 250 mcg STK-MED ONCE .ROUTE ; Start at 14:55; Stop 11/14/16 at 14:56; Status DC Midazolam HCl (Versed) 5 mg STK-MED ONCE .ROUTE ; Start 11/14/16 at 14:55; Stop 11/14/16 at 14:56; Status DC Lidocaine HCl 20 ml STK-MED ONCE .ROUTE ; Start 11/14/16 at 14:57; Stop at 14:58; Status DC Midazolam HCl (Versed) 5 mg 1X ONCE IV Last administered on 11/14/16 15:59; Start 11/14/16 at 15:30; Stop 11/14/16 at 15:31; Status DC Fentanyl Citrate (Fentanyl 2ml Vial) 100 mcg 1X ONCE IV Last administered on 15:30; Start 11/14/16 at 15:30; Stop 11/14/16 at 15:31; Status DC Lidocaine HCl 20 ml 1X ONCE IJ Last administered on 11/14/16 15:58; Start at 15:30; Stop 11/14/16 at 15:31; Status DC Cefazolin Sodium 1 gm/Sodium Chloride 50 ml @ 100 mls/hr 1X ONCE IV ; Start at 16:15; Stop 11/14/16 at 16:44; Status UNV Magnesium Sulfate/ Dextrose 50 ml @ 25 mls/hr 1X ONCE IV Last administered on 11/14/16 22:30; Start 11/14/16 at 22:30; Stop 11/15/16 at 00:29; Status DC Amiodarone HCl 150 mg/Dextrose 103 ml @ 618 mls/hr 1X ONCE IV Last administered on 11/15/16 01:13; Start 11/15/16 at 01:00; Stop 11/15/16 at 01:09 ; Status DC Amiodarone HCl 900 mg/Dextrose 518 ml @ 0 mls/hr CONT PRN IV SEE I/O RECORD Last administered on 11/15/16 01:20; Start 11/15/16 at 01:15; Stop 11/15/16 at 01:20; Status DC Insulin Aspart (NovoLOG) 0-7 UNITS TIDWMEALS SQ Last administered on 11/15/16 16:31; Start 11/15/16 at 12:00 Dextrose (Dextrose 50%-Water Syringe) 12.5 gm PRN Q15MIN PRN IV SEE COMMENTS; Start 11/15/16 at 08:30 Sodium Chloride 1,000 ml @ 1,000 mls/hr Q1H PRN IV hypotension; Start 11/15/16 at 08:59; Stop 11/15/16 at 14:58; Status DC Info (PHARMACY MONITORING -- do not chart) 1 each PRN DAILY PRN MC SEE COMMENTS ; Start 11/15/16 at 09:00; Status UNV Info (PHARMACY MONITORING -- do not chart) 1 each PRN DAILY PRN MC SEE COMMENTS ; Start 11/15/16 at 09:00; Status UNV Heparin Sodium (Porcine) (Heparin Sq) 5,000 unit Q8HRS SQ Last administered on 11/16/16 06:13; Start 11/15/16 at 14:00 Mexiletine HCl (Mexitil) 150 mg Q8HRS PO ; Start 11/15/16 at 14:00; Stop at 15:59; Status DC Mexiletine HCl (Mexitil) 200 mg Q8HRS PO Last administered on 11/16/16 06:13; Start 11/15/16 at 16:00 Acetaminophen/ Hydrocodone Bitart (Lortab 10/325) 1 tab PRN Q4HRS PRN PO PAIN Last administered on 11/16/16 07:49; Start 11/15/16 at 19:15 Amiodarone HCl 450 mg/Dextrose 259 ml @ 17.26 mls/ hr CONT PRN IV SEE I/O RECORD Last administered on 11/16/16t 01:04; Start 11/15/16 at 19:45 Active Scripts Active Lisinopril 40 Mg Tablet 40 Mg PO [id number] Carvedilol 3.125 Mg Tablet 3.125 Mg PO BIDWMEALS Reported Sertraline Hcl 50 Mg Tablet 50 Mg PO QHS Sensipar (Cinacalcet Hcl) 30 Mg Tablet 1 Tab PO QHS Alayna-Oneil Rx Tablet (Vit B Cmplx 3/Fa/Vit C/Biotin) 1 Each Tablet 1 Each PO DAILY Cranberry Plus Vitamin C Sftgl (Cranberry Conc/Ascorbic Acid) 1 Each Capsule 1 Each PO DAILY Coricidin Hbp Tablet (Acetaminophen/Chlorpheniramine) 1 Each Tablet 1 Each PO PRN Alprazolam 0.25 Mg Tablet 1 Tab PO DAILY PRN Plavix (Clopidogrel Bisulfate) 75 Mg Tablet 75 Mg PO DAILY Calcium Acetate 667 Mg Tablet 2 Tab PO TIDWMEALS last dose was this am next dose is wiith supper Tylenol Extra Strength (Acetaminophen) 500 Mg Tablet 500 Mg PO PRN Q12HRS PRN not given in hospital may resume when needed Metolazone 2.5 Mg Tablet 2.5 Mg PO 3X/WEEK PRN Furosemide 40 Mg Tablet 60 Mg PO PRN PRN not given in hospital may take as instructed by provider Gabapentin 300 Mg Capsule 300 Mg PO DAILY Benadryl Allergy (Diphenhydramine Hcl) 25 Mg Tablet 25 Mg PO PRN not given in the hospital Aspir 81 (Aspirin) 81 Mg Tablet.dr 81 Mg PO DAILY last dose was this am resume in am Vitals/I & O Vital Sign - Last 24 Hours 11/15/16 11/15/16 11/15/16 11/15/16 11:40 12:00 15:43 16:00 Temp 98.9 98.8 98.9 98.8 Pulse 60 60 60 Resp 18 20 B/P (MAP) 135/54 (81) 115/46 115/46 (69) Pulse Ox 95 O2 Delivery Room Air Room Air Room Air 11/15/16 11/15/16 11/15/16 11/15/16 19:43 20:00 20:00 21:22 Temp 98.7 98.7 Pulse 60 60 Resp 12 B/P (MAP) 154/53 (86) 154/53 Pulse Ox 98 98 O2 Delivery Room Air Nasal Cannula Nasal Cannula O2 Flow Rate 2.0 2.0 11/15/16 11/16/16 11/16/16 11/16/16 23:05 00:00 00:05 04:00 Temp 98.6 98.1 98.6 98.1 Pulse 60 60 Resp 11 14 15 12 B/P (MAP) 164/69 (100) 134/55 (81) Pulse Ox 99 99 98 O2 Delivery Nasal Cannula Nasal Cannula Nasal Cannula Nasal Cannula O2 Flow Rate 2.0 2.0 2.0 2.0 11/16/16 11/16/16 11/16/16 07:49 08:09 09:19 Pulse 60 Resp 18 B/P (MAP) 158/68 Pulse Ox 89 O2 Delivery Room Air Room Air Intake and Output 11/15/16 11/15/16 11/16/16 15:00 23:00 07:00 Intake Total 750 ml 530 ml Output Total 150 ml 350 ml Balance 600 ml 180 ml MICHLELE DOWD MD Nov 16, 2016 10:16
[2016-11-16] MEDS: ONDANSETRON PF 4 MG/2 ML VIAL. IV PRN ×2 (10:31→17:48)
--- NOTE | 2016-11-16 11:24 | PDOC ---
PULMONARY PROGRESS NOTES Subjective extubated on 11/12, aicd, 08/14, has had nsvtach, aicd fired at 3 ma, on amio. has chest wall pain, better, has cough, sputum, no sob, is tired Vitals Vital Signs Date Time Temp Pulse Resp B/P (MAP) Pulse Ox O2 Delivery O2 Flow Rate FiO2 11/16/16 09:19 60 158/68 11/16/16 08:09 89 Room Air 11/16/16 08:00 18 11/16/16 08:00 98.3 98.3 11/16/16 04:00 2.0 Comments ros as mentioned as above other sys otherwise neg ROS: No Nausea, No Abdominal Pain General: Alert, Oriented X4 HEENT: Other (nc at perrl. shallow oropharynx. nose clear. neck, no lap, no thyromegaly) Lungs: Clear Cardiovascular: S1, S2 Abdomen: Soft, Non-tender Neuro Exam: Alert, Oriented Extremities: No Edema Skin: Warm Labs Laboratory Tests Test 11/14/16 18:46 11/14/16 19:32 11/14/16 19:49 11/14/16 20:15 Glucose (Fingerstick) 52 mg/dL (70-99) 60 mg/dL (70-99) 60 mg/dL (70-99) 83 mg/dL (70-99) Test 11/15/16 03:00 11/15/16 08:24 11/15/16 12:00 11/15/16 16:28 Sodium Level 139 mmol/L (136-145) Potassium Level 4.7 mmol/L (3.5-5.1) Chloride Level 103 mmol/L (98-107) Carbon Dioxide Level 29 mmol/L (21-32) Anion Gap 7 (6-14) Blood Urea Nitrogen 30 mg/dL (7-20) Creatinine 4.6 mg/dL (0.6-1.0) Estimated GFR (Cockcroft-Gault) 9.6 Glucose Level 205 mg/dL (70-99) Calcium Level 8.3 mg/dL (8.5-10.1) Magnesium Level 2.7 mg/dL (1.8-2.4) Glucose (Fingerstick) 195 mg/dL (70-99) 154 mg/dL (70-99) 253 mg/dL (70-99) Test 11/16/16 04:00 Sodium Level 136 mmol/L (136-145) Potassium Level 5.0 mmol/L (3.5-5.1) Chloride Level 101 mmol/L (98-107) Carbon Dioxide Level 33 mmol/L (21-32) Anion Gap 2 (6-14) Blood Urea Nitrogen 21 mg/dL (7-20) Creatinine 4.0 mg/dL (0.6-1.0) Estimated GFR (Cockcroft-Gault) 11.2 Glucose Level 182 mg/dL (70-99) Calcium Level 8.8 mg/dL (8.5-10.1) Magnesium Level 2.4 mg/dL (1.8-2.4) Laboratory Tests Test 11/15/16 12:00 11/15/16 16:28 11/16/16 04:00 Glucose (Fingerstick) 154 mg/dL (70-99) 253 mg/dL (70-99) Sodium Level 136 mmol/L (136-145) Potassium Level 5.0 mmol/L (3.5-5.1) Chloride Level 101 mmol/L (98-107) Carbon Dioxide Level 33 mmol/L (21-32) Anion Gap 2 (6-14) Blood Urea Nitrogen 21 mg/dL (7-20) Creatinine 4.0 mg/dL (0.6-1.0) Estimated GFR (Cockcroft-Gault) 11.2 Glucose Level 182 mg/dL (70-99) Calcium Level 8.8 mg/dL (8.5-10.1) Magnesium Level 2.4 mg/dL (1.8-2.4) Medications Active Scripts Medications Dose Route/Sig Max Daily Dose Days Date Category Dose Instructions Sertraline Hcl 50 Mg Tablet 50 Mg PO QHS 11/11/16 Reported Sensipar (Cinacalcet Hcl) 30 Mg Tablet 1 Tab PO QHS 11/11/16 Reported Alayna-Oneil Rx Tablet (Vit B Cmplx 3/Fa/Vit C/Biotin) 1 Each Tablet 1 Each PO DAILY 11/11/16 Reported Cranberry Plus Vitamin C Sftgl (Cranberry Conc/Ascorbic Acid) 1 Each Capsule 1 Each PO DAILY 11/11/16 Reported Lipitor (Atorvastatin Calcium) 10 Mg Tablet 1 Tab PO DAILY 11/11/16 Reported Coricidin Hbp Tablet (Acetaminophen/Chlorpheniramine) 1 Each Tablet 1 Each PO PRN 11/11/16 Reported Ferric Citrate 210 Mg Tablet 210 Mg PO TIDWMEALS 11/11/16 Reported Alprazolam 0.25 Mg Tablet 1 Tab PO DAILY PRN 11/11/16 Reported Lisinopril 40 Mg Tablet 40 Mg PO QTUTHSASU 10/25/16 Rx Carvedilol 3.125 Mg Tablet 3.125 Mg PO BIDWMEALS 10/25/16 Rx Plavix (Clopidogrel Bisulfate) 75 Mg Tablet 75 Mg PO DAILY 10/21/16 Reported Calcium Acetate 667 Mg Tablet 2 Tab PO TIDWMEALS 02/22/15 Reported last dose was this am next dose is wiith supper Tylenol Extra Strength (Acetaminophen) 500 Mg Tablet 500 Mg PO PRN Q12HRS PRN 02/22/15 Reported not given in hospital may resume when needed Metolazone 2.5 Mg Tablet 2.5 Mg PO 3X/WEEK 10/02/14 Reported Furosemide 40 Mg Tablet 60 Mg PO PRN PRN 10/02/14 Reported not given in hospital may take as instructed by provider Potassium Chloride 20 Meq Tab.er.prt 20 Meq PO WEEKLY PRN 10/02/14 Reported was not given in hospital Gabapentin 300 Mg Capsule 300 Mg PO DAILY 10/02/14 Reported Crestor (Rosuvastatin Calcium) 5 Mg Tablet 5 Mg PO HS 08/18/13 Reported was not given in the hospital as requested will resume at home Lantus (Insulin Glargine,Hum.rec.anlog) 100 Unit/1 Ml Vial 50 Unit SQ HS 05/31/13 Reported refused to take last night stated she would take her own at home Benadryl Allergy (Diphenhydramine Hcl) 25 Mg Tablet 25 Mg PO PRN 05/31/13 Reported not given in the hospital Aspir 81 (Aspirin) 81 Mg Tablet.dr 81 Mg PO DAILY 05/31/13 Reported last dose was this am resume in am Comments cxr reviewed, Findings are unchanged, small bilateral pleural effusions with adjacent airspace opacity. Impression . IMPRESSION: 1. Acute hypoxemic respiratory failure, multifactorial in etiology including acute diastolic congestive heart failure, volume overload, acute exacerbation of chronic obstructive pulmonary disease, ventricular tachycardic versus others. 2. Abnormal chest x-ray. 3. Infiltrates/atelectasis. 4. Acute exacerbation of chronic obstructive pulmonary disease. 5. Acute diastolic congestive heart failure and volume overload. 6. Ventricular tachycardia, questionable etiology. 7. Coronary artery disease status post stent on 10/24/2016. 8. Tobacco habituation. 9. End-stage renal disease, on hemodialysis. 10. Diabetes mellitus. 11. Hypertension. 12. Overweight, questionable obstructive sleep apnea-hypopnea syndrome. 13. snoring, eds, obesity, ? alejandro 14. nsvtach,, aicd Plan . PLAN AND RECOMMENDATIONS: 1. Titrate FiO2 to keep O2 saturation 94%. 2. Bronchodilator will change to atrovent only, avoid alb. 3. inhaled corticosteroid. 4. aicd, on iv amio 5. amio 6. Protonix for stress ulcer prophylaxis. 7. SCDs for DVT prophylaxis. start Lovenox when ok w cardiology. 8. Elevate head of bed. 9. Monitor respiratory status very closely. 10. Hemodialysis per Nephrology. 11. The findings and recommendations were discussed with RN and RT. 12. Sleep study as an outpatient. alejandro the importance of diagnosis and tx were discussed 13. quit smoking for ever discussed w rn pt VICKEY FLOR MD Nov 16, 2016 11:24
[2016-11-16] MEDS: INSULIN ASPART 300 UNITS/3 ML INSULN.PEN SQ SCH ×3 (12:00→17:54)
[2016-11-16] MEDS: IPRATROPIUM BROMIDE 0.5 MG/2.5 ML NEBU. NEB SCH ×3 (12:09→19:22)
--- NOTE | 2016-11-16 13:37 | PDOC ---
PROGRESS NOTES Subjective Subjective The patient is feeling better. Objective Objective Vital Signs Date Time Temp Pulse Resp B/P (MAP) Pulse Ox O2 Delivery O2 Flow Rate FiO2 11/16/16 12:11 Room Air 11/16/16 09:19 60 158/68 11/16/16 08:09 89 11/16/16 08:00 18 11/16/16 08:00 98.3 98.3 11/16/16 04:00 2.0 Intake and Output 11/16/16 07:00 Intake Total 1280 ml Output Total 500 ml Balance 780 ml Intake Oral 1080 ml IV Total 200 ml Output Urine Total 500 ml Physical Exam Abdomen: Normal bowel sounds Heart: Regular rate General: mild distress Lungs: Clear to auscultation Assessment Assessment Problems Medical Problems: (1) Fluid overload Status: Acute (2) Hypoxia Status: Acute (3) Pneumonia Status: Acute (4) SIRS (systemic inflammatory response syndrome) Status: Acute 1. S/P cardiac arrest: as an inpt. AICD placed. On amio and mexiletine started yesterday. Rhythm improved. Continue present treatment. 2. Sinus bradycardia: AICD 3. HTN: BP stable 4. 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 Followed by pulmonary. 5. CAD: PCI/BMS to LAD 10/24/2016. No evidence of any CP. Isoenzymes were normal upon check with f/u EF of 50% with low normal LV function.Recheck of cath as above. 6. ESRD: HD per nephrology 7. Acute on chronic diastolic CHF: improved. 8. Anemia of chronic disease: No obvious bleed. 9. Valvular insufficiency: mod to severe MR. 10. DM2/HLP Comment Review of Relevant I have reviewed the following items ashley (where applicable) has been applied. Labs Laboratory Tests Test 11/14/16 18:46 11/14/16 19:32 11/14/16 19:49 11/14/16 20:15 Glucose (Fingerstick) 52 mg/dL (70-99) 60 mg/dL (70-99) 60 mg/dL (70-99) 83 mg/dL (70-99) Test 11/15/16 03:00 11/15/16 08:24 11/15/16 12:00 11/15/16 16:28 Sodium Level 139 mmol/L (136-145) Potassium Level 4.7 mmol/L (3.5-5.1) Chloride Level 103 mmol/L (98-107) Carbon Dioxide Level 29 mmol/L (21-32) Anion Gap 7 (6-14) Blood Urea Nitrogen 30 mg/dL (7-20) Creatinine 4.6 mg/dL (0.6-1.0) Estimated GFR (Cockcroft-Gault) 9.6 Glucose Level 205 mg/dL (70-99) Calcium Level 8.3 mg/dL (8.5-10.1) Magnesium Level 2.7 mg/dL (1.8-2.4) Glucose (Fingerstick) 195 mg/dL (70-99) 154 mg/dL (70-99) 253 mg/dL (70-99) Test 11/16/16 04:00 Sodium Level 136 mmol/L (136-145) Potassium Level 5.0 mmol/L (3.5-5.1) Chloride Level 101 mmol/L (98-107) Carbon Dioxide Level 33 mmol/L (21-32) Anion Gap 2 (6-14) Blood Urea Nitrogen 21 mg/dL (7-20) Creatinine 4.0 mg/dL (0.6-1.0) Estimated GFR (Cockcroft-Gault) 11.2 Glucose Level 182 mg/dL (70-99) Calcium Level 8.8 mg/dL (8.5-10.1) Magnesium Level 2.4 mg/dL (1.8-2.4) Laboratory Tests Test 11/15/16 16:28 11/16/16 04:00 Glucose (Fingerstick) 253 mg/dL (70-99) Sodium Level 136 mmol/L (136-145) Potassium Level 5.0 mmol/L (3.5-5.1) Chloride Level 101 mmol/L (98-107) Carbon Dioxide Level 33 mmol/L (21-32) Anion Gap 2 (6-14) Blood Urea Nitrogen 21 mg/dL (7-20) Creatinine 4.0 mg/dL (0.6-1.0) Estimated GFR (Cockcroft-Gault) 11.2 Glucose Level 182 mg/dL (70-99) Calcium Level 8.8 mg/dL (8.5-10.1) Magnesium Level 2.4 mg/dL (1.8-2.4) Microbiology 11/11/16 Blood Culture - Preliminary, Resulted NO GROWTH AFTER 4 DAYS Medications Current Medications Sodium Chloride 1,000 ml @ 100 mls/hr Q10H IV Last administered on 11/11/16 12:04; Start 11/11/16 at 11:40; Stop 11/11/16 at 21:39; Status DC Iohexol (Omnipaque 300 Mg/ml) 75 ml 1X ONCE IV Last administered on 11/11/16 12:45; Start 11/11/16 at 12:45; Stop 11/11/16 at 12:46; Status DC Info (Do NOT chart on this entry -- for MONITORING) 1 each PRN DAILY PRN MC SEE COMMENTS; Start 11/11/16 at 13:00; Stop 11/13/16 at 12:59; Status DC Ondansetron HCl (Zofran) 4 mg PRN Q6HRS PRN IV NAUSEA/VOMITING Last administered on 11/16/16 10:31; Start 11/11/16 at 13:30 Prochlorperazine Edisylate (Compazine) 10 mg PRN Q6HRS PRN IV NAUSEA/VOMITING, 2nd choice; Start 11/11/16 at 13:30 Prochlorperazine (Compazine) 25 mg PRN Q12HR PRN [place] NAUSEA/VOMITING; Start at 13:30 Al Hydroxide/Mg Hydroxide (Mylanta Plus Xs) 30 ml PRN Q3HRS PRN PO HEARTBURN / GAS; Start 11/11/16 at 13:30; Status Cancel Calcium Carbonate/ Glycine (Tums) 500 mg PRN Q3HRS PRN PO UPSET STOMACH Last administered on 11/16/16 10:48; Start 11/11/16 at 13:30 Acetaminophen/ Hydrocodone Bitart (Lortab 5/325) 1 tab PRN Q4HRS PRN PO MILD PAIN Last administered on 11/15/16 13:59; Start 11/11/16 at 13:30; Stop at 19:10; Status DC Acetaminophen (Tylenol) 650 mg PRN Q6HRS PRN PO Headaches, Temp > 101.5F; Start 11/11/16 at 13:30 Heparin Sodium (Porcine) (Heparin Sq) 5,000 unit Q8HRS SQ Last administered on 11/11/16 22:05; Start 11/11/16 at 22:00; Stop 11/12/16 at 01:51; Status DC Fentanyl Citrate (Fentanyl 2ml Vial) 50 mcg PRN Q2HR PRN IV pain; Start at 13:30 Albuterol/ Ipratropium (Duoneb) 3 ml RTQID NEB Last administered on 11/16/16 08:07; Start 11/11/16 at 16:00; Stop 11/16/16 at 11:25; Status DC Nicotine (Nicoderm Cq 21mg) 1 patch PRN DAILY PRN TD SMOKING CESSATION; Start 11/11/16 at 13:30 Guaifenesin (Robitussin Dm) 10 ml PRN Q6HRS PRN PO COUGH; Start 11/11/16 at 13: 30 Acetaminophen (Tylenol) 500 mg PRN Q12HRS PRN PO MILD PAIN, 1st choice; Start 11/11/16 at 13:45 Alprazolam (Xanax) 0.25 mg DAILY PRN PO ANXIETY / AGITATION Last administered on 11/15/16 13:58; Start 11/11/16 at 13:45 Aspirin (Ecotrin) 81 mg DAILYWBKFT PO Last administered on 11/16/16 07:48; Start 11/12/16 at 08:00 Atorvastatin Calcium (Lipitor) 10 mg QHS PO Last administered on 11/15/16 21: 21; Start 11/11/16 at 21:00 Carvedilol (Coreg) 3.125 mg BIDWMEALS PO Last administered on 11/11/16 22:06; Start 11/11/16 at 17:00; Stop 11/12/16 at 10:41; Status DC Cinacalcet (Sensipar) 30 mg QHS PO Last administered on 11/15/16 21:22; Start 11/11/16 at 21:00 Clopidogrel Bisulfate (Plavix) 75 mg DAILYWBKFT PO Last administered on 07:48; Start 11/12/16 at 08:00 Furosemide (Lasix) 60 mg DAILY PRN PO SEE COMMENTS Last administered on 09:34; Start 11/11/16 at 13:45 Lisinopril (Prinivil) 40 mg QTUTHSASU PO Last administered on 11/15/16 15:43; Start 11/11/16 at 16:00 Metolazone (Zaroxolyn) 2.5 mg 3X/WEEK PO ; Start 11/12/16 at 09:00 Potassium Chloride (Klor-Con) 20 meq WEEKLY PRN PO SEE COMMENTS; Start at 13:45 Sertraline HCl (Zoloft) 50 mg QHS PO Last administered on 11/15/16 21:24; Start 11/11/16 at 21:00 Calcium Acetate (Phoslo) 1,334 mg TIDWMEALS PO Last administered on 11/16/16 13:07; Start 11/11/16 at 17:00 Non-Formulary Medication 1 each DAILY PO ; Start 11/12/16 at 09:00; Status UNV Non-Formulary Medication 210 mg TIDWMEALS PO ; Start 11/11/16 at 17:00; Status UNV Gabapentin (Neurontin) 300 mg DAILY PO Last administered on 11/16/16 09:18; Start 11/12/16 at 09:00 Insulin Detemir (Levemir) 50 units QHS SQ Last administered on 11/13/16 21:21 ; Start 11/11/16 at 21:00; Stop 11/15/16 at 08:30; Status DC Non-Formulary Medication 5 mg HS PO ; Start 11/11/16 at 21:00; Status UNV Vitamin B Complex/ Vitamin C (Alayna-Oneil) 1 tab DAILY PO Last administered on 09:19; Start 11/12/16 at 09:00 Insulin Aspart (NovoLOG) 0-9 UNITS TIDWMEALS SQ ; Start 11/11/16 at 17:00; Stop 11/15/16 at 08:30; Status DC Dextrose (Dextrose 50%-Water Syringe) 12.5 gm PRN Q15MIN PRN IV SEE COMMENTS Last administered on 11/14/16 09:25; Start 11/11/16 at 13:45; Stop 11/15/16 at 09:54; Status DC Sodium Chloride 1,000 ml @ 100 mls/hr Q10H IV Last administered on 11/12/16 06:05; Start 11/11/16 at 13:49; Stop 11/11/16 at 23:48; Status DC Albuterol/ Ipratropium (Duoneb) 3 ml 1X ONCE NEB Last administered on 14:56; Start 11/11/16 at 14:00; Stop 11/11/16 at 14:31; Status DC Methylprednisolone Sodium Succinate (SOLU-Medrol 125MG VIAL) 125 mg 1X ONCE IV Last administered on 11/11/16 14:58; Start 11/11/16 at 14:30; Stop 11/11/16 at 14:32; Status DC Cefepime HCl 1 gm/ Sodium Chloride 50 ml @ 100 mls/hr Q24H IV Last administered on 11/15/16 13:53; Start 11/12/16 at 14:00 Vancomycin HCl 1.5 gm/Sodium Chloride 500 ml @ 250 mls/hr 1X ONCE IV ; Start 11/11/16 at 14:30; Stop 11/11/16 at 16:29; Status UNV Vancomycin HCl 2 gm/Sodium Chloride 500 ml @ 250 mls/hr ONCE ONCE IV Last administered on 11/11/16 20:30; Start 11/11/16 at 14:30; Stop 11/11/16 at 16:29 ; Status DC Cefepime HCl 1 gm/ Sodium Chloride 50 ml @ 100 mls/hr ONCE ONCE IV Last administered on 11/11/16 15:01; Start 11/11/16 at 14:45; Stop 11/11/16 at 15:14 ; Status DC Amiodarone HCl 150 mg/Dextrose 103 ml @ 618 mls/hr 1X ONCE IV ; Start at 01:30; Stop 11/12/16 at 01:39; Status DC Amiodarone HCl 900 mg/Dextrose 518 ml @ 0 mls/hr CONT PRN IV SEE I/O RECORD Last administered on 11/12/16 06:07; Start 11/12/16 at 01:45; Stop 11/12/16 at 06:07; Status DC Etomidate (Amidate) 20 mg 1X ONCE IV ; Start 11/12/16 at 01:15; Stop 11/12/16 at 01:16; Status DC Rocuronium [place] (Zemuron) 100 mg 1X ONCE IV ; Start 11/12/16 at 01:15; Stop 11/12/16 at 01:16; Status DC Etomidate (Amidate) 20 mg STK-MED ONCE IV ; Start 11/12/16 at 01:03; Stop at 01:04; Status DC Propofol 100 ml @ As Directed STK-MED ONCE IV ; Start 11/12/16 at 01:17; Stop 11/12/16 at 01:18; Status DC Propofol 100 ml @ 0 mls/hr CONT PRN IV SEE I/O RECORD; Start 11/12/16 at 01:30 ; Stop 11/13/16 at 09:06; Status DC Rocuronium [place] (Zemuron) 50 mg STK-MED ONCE .ROUTE ; Start 11/12/16 at 01:33 ; Stop 11/12/16 at 01:34; Status DC Heparin Sodium (Porcine) (Heparin Sodium) 4,000 unit 1X ONCE IV Last administered on 11/12/16 02:56; Start 11/12/16 at 02:00; Stop 11/12/16 at 02:01 ; Status DC Heparin Sodium/ Dextrose 500 ml @ 0 mls/hr CONT PRN IV SEE I/O RECORD Last administered on 11/13/16 04:00; Start 11/12/16 at 01:45; Stop 11/15/16 at 09:59 ; Status DC Heparin Sodium (Porcine) (Heparin Sodium) 1,750 unit PRN Q6HRS PRN IV FOR UFH LEVEL LESS THAN 0.2 Last administered on 11/13/16 03:17; Start 11/12/16 at 01: 45; Stop 11/15/16 at 09:59; Status DC Info (Anti-Coagulation Monitoring By Pharmacy) 1 each PRN DAILY PRN MC SEE COMMENTS Last administered on 11/14/16 11:07; Start 11/12/16 at 02:00; Stop at 10:03; Status DC Pantoprazole Sodium (Protonix) 40 mg DAILYAC PO Last administered on 11/16/16 07:49; Start 11/12/16 at 10:30 Budesonide (Pulmicort) 0.5 mg RTBID NEB Last administered on 11/16/16 08:07; Start 11/12/16 at 10:30 Amiodarone HCl 900 mg/Dextrose 518 ml @ 33.33 mls/ hr CONT PRN IV SEE I/O RECORD Last administered on 11/12/16 13:45; Start 11/12/16 at 10:30; Stop 11/12 at 16:29; Status DC Amiodarone HCl 900 mg/Dextrose 518 ml @ 16.67 mls/ hr CONT PRN IV SEE I/O RECORD; Start 11/12/16 at 10:30; Stop 11/13/16 at 04:29; Status UNV Darbepoetin [place] (Aranesp) 60 mcg WEEKLYHS SQ Last administered on 11/12/16 22 :14; Start 11/12/16 at 21:00 Hydralazine HCl (Apresoline) 10 mg PRN Q4HRS PRN IVP ELEVATED BP, SEE COMMENTS ; Start 11/12/16 at 13:15 Amiodarone HCl (Cordarone) 150 mg STK-MED ONCE .ROUTE ; Start 11/13/16 at 21:00 ; Stop 11/13/16 at 21:01; Status DC Magnesium Sulfate/ Dextrose (Magnesium Sulfate PREMIX 1GM) 1 gm STK-MED ONCE IV ; Start 11/13/16 at 21:00; Stop 11/13/16 at 21:01; Status DC Amiodarone HCl (Cordarone) 200 mg DAILY PO Last administered on 11/14/16 09:18 ; Start 11/13/16 at 10:00 Iohexol (Omnipaque 300 Mg/ml) 100 ml STK-MED ONCE .ROUTE ; Start 11/13/16 at 10: 55; Stop 11/13/16 at 10:56; Status DC Heparin Sodium/ Sodium Chloride 1,000 ml @ As Directed STK-MED ONCE .ROUTE ; Start 11/13/16 at 10:55; Stop 11/13/16 at 10:56; Status DC Lidocaine HCl 20 ml STK-MED ONCE .ROUTE ; Start 11/13/16 at 10:55; Stop at 10:56; Status DC Fentanyl Citrate (Fentanyl 2ml Vial) 100 mcg STK-MED ONCE .ROUTE ; Start at 11:17; Stop 11/13/16 at 11:18; Status DC Midazolam HCl (Versed) 2 mg STK-MED ONCE .ROUTE ; Start 11/13/16 at 11:17; Stop 11/13/16 at 11:18; Status DC Heparin Sodium/ Sodium Chloride 1,000 unit 1X ONCE IART Last administered on 11:59; Start 11/13/16 at 11:30; Stop 11/13/16 at 11:31; Status DC Midazolam HCl (Versed) 2 mg 1X ONCE IV Last administered on 11/13/16 11:59; Start 11/13/16 at 11:30; Stop 11/13/16 at 11:31; Status DC Fentanyl Citrate (Fentanyl 2ml Vial) 100 mcg 1X ONCE IV Last administered on 12:00; Start 11/13/16 at 11:30; Stop 11/13/16 at 11:31; Status DC Iohexol (Omnipaque 300 Mg/ml) 100 ml 1X ONCE IART Last administered on 12:00; Start 11/13/16 at 11:30; Stop 11/13/16 at 11:31; Status DC Lidocaine HCl 20 ml 1X ONCE IJ Last administered on 11/13/16 11:58; Start at 11:30; Stop 11/13/16 at 11:31; Status DC Midazolam HCl (Versed) 2 mg STK-MED ONCE .ROUTE ; Start 11/13/16 at 11:29; Stop 11/13/16 at 11:30; Status DC Ondansetron HCl (Zofran) 4 mg PRN Q6HRS PRN IV NAUSEA/VOMITING; Start 11/14/16 at 07:00; Stop 11/15/16 at 06:59; Status DC Fentanyl Citrate (Fentanyl 2ml Vial) 25 mcg PRN Q5MIN PRN IV MILD PAIN; Start 11/14/16 at 07:00; Stop 11/15/16 at 06:59; Status DC Fentanyl Citrate (Fentanyl 2ml Vial) 50 mcg PRN Q5MIN PRN IV MODERATE PAIN; Start 11/14/16 at 07:00; Stop 11/15/16 at 06:59; Status DC Ringer's Solution 1,000 ml @ 30 mls/hr Q24H IV ; Start 11/14/16 at 07:00; Stop 11/14/16 at 18:59; Status DC Lidocaine HCl 2 ml PRN 1X PRN ID PRIOR TO IV START; Start 11/14/16 at 07:00; Stop 11/15/16 at 06:59; Status DC Prochlorperazine Edisylate (Compazine) 5 mg PACU PRN PRN IV NAUSEA, MRX1; Start 11/14/16 at 07:00; Stop 11/15/16 at 06:59; Status DC Sodium Chloride 1,000 ml @ 1,000 mls/hr Q1H PRN IV hypotension; Start 11/13/16 at 15:38; Stop 11/13/16 at 21:37; Status DC Info (PHARMACY MONITORING -- do not chart) 1 each PRN DAILY PRN MC SEE COMMENTS ; Start 11/13/16 at 15:45 Info (PHARMACY MONITORING -- do not chart) 1 each PRN DAILY PRN MC SEE COMMENTS ; Start 11/13/16 at 15:45; Status UNV Cefazolin Sodium 1 gm/Sodium Chloride 50 ml @ 100 mls/hr 1X ONCE IV Last administered on 11/14/16 15:56; Start 11/14/16 at 06:00; Stop 11/14/16 at 06:29 ; Status DC Metoprolol Tartrate (Lopressor) 25 mg BID PO Last administered on 11/16/16 09: 19; Start 11/14/16 at 09:30 Bacitracin 43155 unit/Sodium Chloride 250 ml @ 250 mls/hr 1X ONCE IRR Last administered on 11/14/16 15:40; Start 11/14/16 at 15:00; Stop 11/14/16 at 15:59 ; Status DC Lidocaine HCl 20 ml STK-MED ONCE .ROUTE ; Start 11/14/16 at 14:54; Stop at 14:55; Status DC Fentanyl Citrate (Fentanyl 5ml Vial) 250 mcg STK-MED ONCE .ROUTE ; Start at 14:55; Stop 11/14/16 at 14:56; Status DC Midazolam HCl (Versed) 5 mg STK-MED ONCE .ROUTE ; Start 11/14/16 at 14:55; Stop 11/14/16 at 14:56; Status DC Lidocaine HCl 20 ml STK-MED ONCE .ROUTE ; Start 11/14/16 at 14:57; Stop at 14:58; Status DC Midazolam HCl (Versed) 5 mg 1X ONCE IV Last administered on 11/14/16 15:59; Start 11/14/16 at 15:30; Stop 11/14/16 at 15:31; Status DC Fentanyl Citrate (Fentanyl 2ml Vial) 100 mcg 1X ONCE IV Last administered on 15:30; Start 11/14/16 at 15:30; Stop 11/14/16 at 15:31; Status DC Lidocaine HCl 20 ml 1X ONCE IJ Last administered on 11/14/16 15:58; Start at 15:30; Stop 11/14/16 at 15:31; Status DC Cefazolin Sodium 1 gm/Sodium Chloride 50 ml @ 100 mls/hr 1X ONCE IV ; Start at 16:15; Stop 11/14/16 at 16:44; Status UNV Magnesium Sulfate/ Dextrose 50 ml @ 25 mls/hr 1X ONCE IV Last administered on 11/14/16 22:30; Start 11/14/16 at 22:30; Stop 11/15/16 at 00:29; Status DC Amiodarone HCl 150 mg/Dextrose 103 ml @ 618 mls/hr 1X ONCE IV Last administered on 11/15/16 01:13; Start 11/15/16 at 01:00; Stop 11/15/16 at 01:09 ; Status DC Amiodarone HCl 900 mg/Dextrose 518 ml @ 0 mls/hr CONT PRN IV SEE I/O RECORD Last administered on 11/15/16 01:20; Start 11/15/16 at 01:15; Stop 11/15/16 at 01:20; Status DC Insulin Aspart (NovoLOG) 0-7 UNITS TIDWMEALS SQ Last administered on 11/16/16 12:00; Start 11/15/16 at 12:00 Dextrose (Dextrose 50%-Water Syringe) 12.5 gm PRN Q15MIN PRN IV SEE COMMENTS; Start 11/15/16 at 08:30 Sodium Chloride 1,000 ml @ 1,000 mls/hr Q1H PRN IV hypotension; Start 11/15/16 at 08:59; Stop 11/15/16 at 14:58; Status DC Info (PHARMACY MONITORING -- do not chart) 1 each PRN DAILY PRN MC SEE COMMENTS ; Start 11/15/16 at 09:00; Status UNV Info (PHARMACY MONITORING -- do not chart) 1 each PRN DAILY PRN MC SEE COMMENTS ; Start 11/15/16 at 09:00; Status UNV Heparin Sodium (Porcine) (Heparin Sq) 5,000 unit Q8HRS SQ Last administered on 11/16/16 06:13; Start 11/15/16 at 14:00 Mexiletine HCl (Mexitil) 150 mg Q8HRS PO ; Start 11/15/16 at 14:00; Stop at 15:59; Status DC Mexiletine HCl (Mexitil) 200 mg Q8HRS PO Last administered on 11/16/16 06:13; Start 11/15/16 at 16:00 Acetaminophen/ Hydrocodone Bitart (Lortab 10/325) 1 tab PRN Q4HRS PRN PO PAIN Last administered on 11/16/16 07:49; Start 11/15/16 at 19:15 Amiodarone HCl 450 mg/Dextrose 259 ml @ 17.26 mls/ hr CONT PRN IV SEE I/O RECORD Last administered on 11/16/16 01:04; Start 11/15/16 at 19:45 Ipratropium [place] (Atrovent) 0.5 mg RTQID NEB Last administered on 11/16/16 12:09; Start 11/16/16 at 12:00 Active Scripts Active Lisinopril 40 Mg Tablet 40 Mg PO QTUTHSASU Carvedilol 3.125 Mg Tablet 3.125 Mg PO BIDWMEALS Reported Sertraline Hcl 50 Mg Tablet 50 Mg PO QHS Sensipar (Cinacalcet Hcl) 30 Mg Tablet 1 Tab PO QHS Alayna-Oneil Rx Tablet (Vit B Cmplx 3/Fa/Vit C/Biotin) 1 Each Tablet 1 Each PO DAILY Cranberry Plus Vitamin C Sftgl (Cranberry Conc/Ascorbic Acid) 1 Each Capsule 1 Each PO DAILY Coricidin Hbp Tablet (Acetaminophen/Chlorpheniramine) 1 Each Tablet 1 Each PO PRN Alprazolam 0.25 Mg Tablet 1 Tab PO DAILY PRN Plavix (Clopidogrel Bisulfate) 75 Mg Tablet 75 Mg PO DAILY Calcium Acetate 667 Mg Tablet 2 Tab PO TIDWMEALS last dose was this am next dose is wiith supper Tylenol Extra Strength (Acetaminophen) 500 Mg Tablet 500 Mg PO PRN Q12HRS PRN not given in hospital may resume when needed Metolazone 2.5 Mg Tablet 2.5 Mg PO 3X/WEEK PRN Furosemide 40 Mg Tablet 60 Mg PO PRN PRN not given in hospital may take as instructed by provider Gabapentin 300 Mg Capsule 300 Mg PO DAILY Benadryl Allergy (Diphenhydramine Hcl) 25 Mg Tablet 25 Mg PO PRN not given in the hospital Aspir 81 (Aspirin) 81 Mg Tablet.dr 81 Mg PO DAILY last dose was this am resume in am Vitals/I & O Vital Sign - Last 24 Hours 11/15/16 11/15/16 11/15/16 11/15/16 15:43 16:00 19:43 20:00 Temp 98.8 98.7 98.8 98.7 Pulse 60 60 60 Resp 20 12 B/P (MAP) 115/46 115/46 (69) 154/53 (86) Pulse Ox 95 98 98 O2 Delivery Room Air Room Air Nasal Cannula O2 Flow Rate 2.0 11/15/16 11/15/16 11/15/16 11/16/16 20:00 21:22 23:05 00:00 Temp 98.6 98.6 Pulse 60 60 Resp 11 14 B/P (MAP) 154/53 164/69 (100) Pulse Ox 99 99 O2 Delivery Nasal Cannula Nasal Cannula Nasal Cannula O2 Flow Rate 2.0 2.0 2.0 11/16/16 11/16/16 11/16/16 11/16/16 00:05 04:00 07:49 08:00 Temp 98.1 98.3 98.1 98.3 Pulse 60 Resp 15 12 18 B/P (MAP) 134/55 (81) Pulse Ox 98 O2 Delivery Nasal Cannula Nasal Cannula Room Air O2 Flow Rate 2.0 2.0 11/16/16 11/16/16 11/16/16 11/16/16 08:00 08:09 09:19 12:11 Pulse 60 60 Resp 18 B/P (MAP) 158/68 (98) 158/68 Pulse Ox 93 89 O2 Delivery Room Air Room Air Room Air Intake and Output 11/15/16 11/15/16 11/16/16 15:00 23:00 07:00 Intake Total 750 ml 530 ml Output Total 150 ml 350 ml Balance 600 ml 180 ml KAILA VALDOVINOS MD Nov 16, 2016 13:36
[2016-11-16] MEDS: LISINOPRIL 40 MG TABLET. PO SCH (16:00)
[2016-11-16] MEDS: AMIODARONE HCL 200 MG TABLET. PO SCH (16:53)
[2016-11-16] MEDS: CEFEPIME HCL 1 GM in IV NORMAL SALINE 50ML 50 ML IV SCH (16:54)
[2016-11-16] MEDS: CINACALCET HCL 30 MG TABLET PO SCH (20:58)
[2016-11-16] MEDS: ATORVASTATIN CALCIUM 10 MG TABLET. PO SCH (20:58)
[2016-11-16] MEDS: SERTRALINE 50 MG TABLET. PO SCH (20:58)
--- NOTE | 2016-11-16 23:46 | PDOC4 ---
PROCEDURE Procedure RENAL DIALYSIS/ BERNIE DOS : 11/15/16 HD done UF 1-2 kg F 180/ HCO3 3K QB 450 Qd 600 Well tolerated. AMARIS GIBBS MD Nov 16, 2016 23:46
--- NOTE | 2016-11-16 23:47 | PDOC ---
Provider Note Provider Note RENAL F/U : BERNIE S : Doing OK No new issues. O : VSS Afberile BP low stable Alert No distress Neck : Supple Lungs : Non labored CVS : RRR Abd : Soft, no masses Ext : Trace edema Labs and meds reviewed. A/P: ESRD HYPOTENSION PVD ARRHYTHMIAS s/p PPM and AICD Labs stable BP better HD Thursday AMARIS GIBBS MD Nov 16, 2016 23:47
[2016-11-17] MEDS: MEXILETINE HCL 200 MG CAPSULE PO SCH ×3 (05:21→22:19)
[2016-11-17] MEDS: HEPARIN PF for SUB-Q USE 5,000 UNIT/0.5 ML VIAL. SQ SCH ×3 (05:25→22:27)
[2016-11-17 05:28] VITALS: BP 141/57
[2016-11-17 06:31] LABS: BASO # 0.1 x10^3/uL (0.0-0.2); BASO % 1 % (0-3); EOS % 4 % (0-3); HEMATOCRIT 27.3 % (36.0-47.0); HEMOGLOBIN 8.8 g/dL (12.0-15.5); LYMPH # 2.2 x10^3/uL (1.0-4.8); LYMPH % 22 % (24-48); MEAN CORPUSCULAR HEMOGLOBIN 30 pg (25-35); MEAN CORPUSCULAR HGB CONC 32 g/dL (31-37); MEAN CORPUSCULAR VOLUME 92 fL (79-100); MONO % 9 % (0-9); NEUT % 64 % (31-73); PLATELET COUNT 154 x10^3/uL (140-400); RED BLOOD COUNT 2.98 x10^6/uL (3.50-5.40); RED CELL DISTRIBUTION WIDTH 16.3 % (11.5-14.5); WHITE BLOOD COUNT 9.8 x10^3/uL (4.0-11.0)
[2016-11-17 06:44] LABS: CREATININE 5.1 mg/dL (0.6-1.0); GFR 8.5; MAGNESIUM 2.4 mg/dL (1.8-2.4); POTASSIUM 5.4 mmol/L (3.5-5.1)
[2016-11-17] MEDS: IPRATROPIUM BROMIDE 0.5 MG/2.5 ML NEBU. NEB SCH ×4 (07:19→19:35)
[2016-11-17] MEDS: BUDESONIDE 0.5 MG/2 ML NEBU. NEB SCH ×2 (07:19→19:35)
[2016-11-17 07:53] VITALS: BP 119/52
[2016-11-17] MEDS: ONDANSETRON PF 4 MG/2 ML VIAL. IV PRN (08:24)
--- NOTE | 2016-11-17 09:07 | PDOC ---
PULMONARY PROGRESS NOTES Subjective extubated on 11/12, no increase soa Vitals Vital Signs Date Time Temp Pulse Resp B/P (MAP) Pulse Ox O2 Delivery O2 Flow Rate FiO2 11/17/16 08:00 Nasal Cannula 1.0 11/17/16 07:53 98.1 63 18 119/52 (74) 96 98.1 ROS: No Nausea, No Chest Pain, No Abdominal Pain, No Increase Cough General: Alert HEENT: Other (nc at perrl. shallow oropharynx. nose clear. neck, no lap, no thyromegaly) Lungs: Clear Cardiovascular: S1, S2 Abdomen: Soft, Non-tender Neuro Exam: Alert, Oriented Extremities: No Edema Skin: Warm Labs Laboratory Tests Test 11/15/16 12:00 11/15/16 16:28 11/16/16 04:00 11/16/16 13:05 Glucose (Fingerstick) 154 mg/dL (70-99) 253 mg/dL (70-99) 165 mg/dL (70-99) Sodium Level 136 mmol/L (136-145) Potassium Level 5.0 mmol/L (3.5-5.1) Chloride Level 101 mmol/L (98-107) Carbon Dioxide Level 33 mmol/L (21-32) Anion Gap 2 (6-14) Blood Urea Nitrogen 21 mg/dL (7-20) Creatinine 4.0 mg/dL (0.6-1.0) Estimated GFR (Cockcroft-Gault) 11.2 Glucose Level 182 mg/dL (70-99) Calcium Level 8.8 mg/dL (8.5-10.1) Magnesium Level 2.4 mg/dL (1.8-2.4) Test 11/16/16 16:49 11/17/16 06:20 11/17/16 07:33 Glucose (Fingerstick) 187 mg/dL (70-99) 164 mg/dL (70-99) White Blood Count 9.8 x10^3/uL (4.0-11.0) Red Blood Count 2.98 x10^6/uL (3.50-5.40) Hemoglobin 8.8 g/dL (12.0-15.5) Hematocrit 27.3 % (36.0-47.0) Mean Corpuscular Volume 92 fL (79-100) Mean Corpuscular Hemoglobin 30 pg (25-35) Mean Corpuscular Hemoglobin Concent 32 g/dL (31-37) Red Cell Distribution Width 16.3 % (11.5-14.5) Platelet Count 154 x10^3/uL (140-400) Neutrophils (%) (Auto) 64 % (31-73) Lymphocytes (%) (Auto) 22 % (24-48) Monocytes (%) (Auto) 9 % (0-9) Eosinophils (%) (Auto) 4 % (0-3) Basophils (%) (Auto) 1 % (0-3) Neutrophils # (Auto) 6.2 x10^3uL (1.8-7.7) Lymphocytes # (Auto) 2.2 x10^3/uL (1.0-4.8) Monocytes # (Auto) 0.8 x10^3/uL (0.0-1.1) Eosinophils # (Auto) 0.4 x10^3/uL (0.0-0.7) Basophils # (Auto) 0.1 x10^3/uL (0.0-0.2) Sodium Level 138 mmol/L (136-145) Potassium Level 5.4 mmol/L (3.5-5.1) Chloride Level 103 mmol/L (98-107) Carbon Dioxide Level 31 mmol/L (21-32) Anion Gap 4 (6-14) Blood Urea Nitrogen 28 mg/dL (7-20) Creatinine 5.1 mg/dL (0.6-1.0) Estimated GFR (Cockcroft-Gault) 8.5 Glucose Level 137 mg/dL (70-99) Calcium Level 9.0 mg/dL (8.5-10.1) Magnesium Level 2.4 mg/dL (1.8-2.4) Laboratory Tests Test 11/16/16 13:05 11/16/16 16:49 11/17/16 06:20 11/17/16 07:33 Glucose (Fingerstick) 165 mg/dL (70-99) 187 mg/dL (70-99) 164 mg/dL (70-99) White Blood Count 9.8 x10^3/uL (4.0-11.0) Red Blood Count 2.98 x10^6/uL (3.50-5.40) Hemoglobin 8.8 g/dL (12.0-15.5) Hematocrit 27.3 % (36.0-47.0) Mean Corpuscular Volume 92 fL (79-100) Mean Corpuscular Hemoglobin 30 pg (25-35) Mean Corpuscular Hemoglobin Concent 32 g/dL (31-37) Red Cell Distribution Width 16.3 % (11.5-14.5) Platelet Count 154 x10^3/uL (140-400) Neutrophils (%) (Auto) 64 % (31-73) Lymphocytes (%) (Auto) 22 % (24-48) Monocytes (%) (Auto) 9 % (0-9) Eosinophils (%) (Auto) 4 % (0-3) Basophils (%) (Auto) 1 % (0-3) Neutrophils # (Auto) 6.2 x10^3uL (1.8-7.7) Lymphocytes # (Auto) 2.2 x10^3/uL (1.0-4.8) Monocytes # (Auto) 0.8 x10^3/uL (0.0-1.1) Eosinophils # (Auto) 0.4 x10^3/uL (0.0-0.7) Basophils # (Auto) 0.1 x10^3/uL (0.0-0.2) Sodium Level 138 mmol/L (136-145) Potassium Level 5.4 mmol/L (3.5-5.1) Chloride Level 103 mmol/L (98-107) Carbon Dioxide Level 31 mmol/L (21-32) Anion Gap 4 (6-14) Blood Urea Nitrogen 28 mg/dL (7-20) Creatinine 5.1 mg/dL (0.6-1.0) Estimated GFR (Cockcroft-Gault) 8.5 Glucose Level 137 mg/dL (70-99) Calcium Level 9.0 mg/dL (8.5-10.1) Magnesium Level 2.4 mg/dL (1.8-2.4) Medications Active Scripts Medications Dose Route/Sig Max Daily Dose Days Date Category Dose Instructions Sertraline Hcl 50 Mg Tablet 50 Mg PO QHS 11/11/16 Reported Sensipar (Cinacalcet Hcl) 30 Mg Tablet 1 Tab PO QHS 11/11/16 Reported Alayna-Oneil Rx Tablet (Vit B Cmplx 3/Fa/Vit C/Biotin) 1 Each Tablet 1 Each PO DAILY 11/11/16 Reported Cranberry Plus Vitamin C Sftgl (Cranberry Conc/Ascorbic Acid) 1 Each Capsule 1 Each PO DAILY 11/11/16 Reported Lipitor (Atorvastatin Calcium) 10 Mg Tablet 1 Tab PO DAILY 11/11/16 Reported Coricidin Hbp Tablet (Acetaminophen/Chlorpheniramine) 1 Each Tablet 1 Each PO PRN 11/11/16 Reported Ferric Citrate 210 Mg Tablet 210 Mg PO TIDWMEALS 11/11/16 Reported Alprazolam 0.25 Mg Tablet 1 Tab PO DAILY PRN 11/11/16 Reported Lisinopril 40 Mg Tablet 40 Mg PO QTUTHSASU 10/25/16 Rx Carvedilol 3.125 Mg Tablet 3.125 Mg PO BIDWMEALS 10/25/16 Rx Plavix (Clopidogrel Bisulfate) 75 Mg Tablet 75 Mg PO DAILY 10/21/16 Reported Calcium Acetate 667 Mg Tablet 2 Tab PO TIDWMEALS 02/22/15 Reported last dose was this am next dose is wiith supper Tylenol Extra Strength (Acetaminophen) 500 Mg Tablet 500 Mg PO PRN Q12HRS PRN 02/22/15 Reported not given in hospital may resume when needed Metolazone 2.5 Mg Tablet 2.5 Mg PO 3X/WEEK 10/02/14 Reported Furosemide 40 Mg Tablet 60 Mg PO PRN PRN 10/02/14 Reported not given in hospital may take as instructed by provider Potassium Chloride 20 Meq Tab.er.prt 20 Meq PO WEEKLY PRN 10/02/14 Reported was not given in hospital Gabapentin 300 Mg Capsule 300 Mg PO DAILY 10/02/14 Reported Crestor (Rosuvastatin Calcium) 5 Mg Tablet 5 Mg PO HS 08/18/13 Reported was not given in the hospital as requested will resume at home Lantus (Insulin Glargine,Hum.rec.anlog) 100 Unit/1 Ml Vial 50 Unit SQ HS 05/31/13 Reported refused to take last night stated she would take her own at home Benadryl Allergy (Diphenhydramine Hcl) 25 Mg Tablet 25 Mg PO PRN 05/31/13 Reported not given in the hospital Aspir 81 (Aspirin) 81 Mg Tablet.dr 81 Mg PO DAILY 05/31/13 Reported last dose was this am resume in am Comments cxr reviewed, Findings are unchanged, small bilateral pleural effusions with adjacent airspace opacity. Impression . IMPRESSION: 1. Acute hypoxemic respiratory failure, multifactorial 2. Abnormal chest x-ray, acute CHF 3. Infiltrates/atelectasis. 4. Acute exacerbation of chronic obstructive pulmonary disease. 5. Acute diastolic congestive heart failure and volume overload. 6. Ventricular tachycardia, 7. Coronary artery disease status post stent on 10/24/2016. 8. Tobacco habituation. 9. End-stage renal disease, on hemodialysis. 10. Diabetes mellitus. 11. Hypertension. 12. Overweight, questionable obstructive sleep apnea-hypopnea syndrome. 13. snoring, eds, obesity, ? alejandro 14. NSVT S/P AICD Plan . 6 min walk home soon d/c smoking d/w SHEELA Arias MD Nov 17, 2016 09:07
[2016-11-17] MEDS: PANTOPRAZOLE 40 MG TABLET.DR. PO SCH (09:36)
[2016-11-17] MEDS: CALCIUM ACETATE 667 MG CAPSULE PO SCH ×3 (09:37→17:48)
[2016-11-17] MEDS: FOLIC/VIT B COMP W-C (RENAL) TABLET. PO SCH (09:37)
[2016-11-17] MEDS: AMIODARONE HCL 200 MG TABLET. PO SCH (09:38)
[2016-11-17] MEDS: HYDROcodone/APAP 10/325 1 TAB TABLET PO PRN (09:38)
[2016-11-17] MEDS: CLOPIDOGREL BISULFATE 75 MG TABLET PO SCH (09:39)
[2016-11-17] MEDS: ASPIRIN ENTERIC COATED 81 MG TABLET.DR. PO SCH (09:39)
[2016-11-17] MEDS: GABAPENTIN 300 MG CAPSULE. PO SCH (09:39)
[2016-11-17] MEDS: metOLazone 2.5 MG TABLET PO SCH (09:39)
[2016-11-17] MEDS: METOPROLOL TART IMMED RELEASE 25 MG TABLET. PO SCH ×2 (09:40→20:30)
[2016-11-17] MEDS: INSULIN ASPART 300 UNITS/3 ML INSULN.PEN SQ SCH ×3 (09:41→17:20)
[2016-11-17 10:42] VITALS: BP 95/55
--- NOTE | 2016-11-17 11:06 | PDOC ---
PATRICE HA METALLURGICAL TECHNICIAN 11/17/16 1106: CARDIO Progress Notes Date and Time Date of Service 11/17/2016 Time of Evaluation 1040 Subjective Subjective: No Chest Pain, No shortness of breath, No Palpitations Vitals Vitals Vital Signs Date Time Temp Pulse Resp B/P (MAP) Pulse Ox O2 Delivery O2 Flow Rate FiO2 11/17/16 10:43 Room Air 11/17/16 10:42 97.7 65 20 95/55 (68) 94 97.7 11/17/16 08:00 1.0 Weight Weight [ ] Input and Output Intake and Output Intake and Output 11/17/16 07:00 Intake Total 450 ml Output Total 400 ml Balance 50 ml Intake Oral 450 ml Output Urine Total 400 ml Laboratory Labs Laboratory Tests Test 11/16/16 13:05 11/16/16 16:49 11/17/16 06:20 11/17/16 07:33 Glucose (Fingerstick) 165 mg/dL (70-99) 187 mg/dL (70-99) 164 mg/dL (70-99) White Blood Count 9.8 x10^3/uL (4.0-11.0) Red Blood Count 2.98 x10^6/uL (3.50-5.40) Hemoglobin 8.8 g/dL (12.0-15.5) Hematocrit 27.3 % (36.0-47.0) Mean Corpuscular Volume 92 fL (79-100) Mean Corpuscular Hemoglobin 30 pg (25-35) Mean Corpuscular Hemoglobin Concent 32 g/dL (31-37) Red Cell Distribution Width 16.3 % (11.5-14.5) Platelet Count 154 x10^3/uL (140-400) Neutrophils (%) (Auto) 64 % (31-73) Lymphocytes (%) (Auto) 22 % (24-48) Monocytes (%) (Auto) 9 % (0-9) Eosinophils (%) (Auto) 4 % (0-3) Basophils (%) (Auto) 1 % (0-3) Neutrophils # (Auto) 6.2 x10^3uL (1.8-7.7) Lymphocytes # (Auto) 2.2 x10^3/uL (1.0-4.8) Monocytes # (Auto) 0.8 x10^3/uL (0.0-1.1) Eosinophils # (Auto) 0.4 x10^3/uL (0.0-0.7) Basophils # (Auto) 0.1 x10^3/uL (0.0-0.2) Sodium Level 138 mmol/L (136-145) Potassium Level 5.4 mmol/L (3.5-5.1) Chloride Level 103 mmol/L (98-107) Carbon Dioxide Level 31 mmol/L (21-32) Anion Gap 4 (6-14) Blood Urea Nitrogen 28 mg/dL (7-20) Creatinine 5.1 mg/dL (0.6-1.0) Estimated GFR (Cockcroft-Gault) 8.5 Glucose Level 137 mg/dL (70-99) Calcium Level 9.0 mg/dL (8.5-10.1) Magnesium Level 2.4 mg/dL (1.8-2.4) Microbiology Micro Microbiology 11/11/16 Blood Culture - Final, Complete NO GROWTH AFTER 5 DAYS Review of Systems Constitutional: yes: weakness, alert, oriented Ears/Nose/Throat: Yes: no symptom reported Pulmonary: Yes no symptom reported Gastrointestional: Yes: no symptom reported Musculoskeletal: Yes: no symptom reported Psychiatric/Neurological: Yes: no symptom reported Physical Exam HEENT: Neck Supple W Full Motion Chest: Symmetric LUNGS: Clear to Auscultation Heart: S1S2, RRR (Intermittent atrial pacing and V pacing. ), no rubs Abdomen: Soft N/T Extremities: Other (trace LE edema) Neurology: alert, oriented, follow commands Other Exams left chest incision site D/I with steristrips Assessment Assessment 1. S/P cardiac arrest: V-fib/Vtach, no ischemic culprit per [facility], S/P AICD for SCD prevention. Persistent NSVT 2. HTN: controlled 4. Acute on chronic respiratory failure/DOPE: compensated 5. CAD: PCI/BMS to LAD 10/24/2016. prior EF of 50% with low normal LV function 6. ESRD: HD per nephrology 7. Acute on chronic diastolic CHF: compensated 8. Anemia of chronic disease 9. Valvular insufficiency: mod to severe MR. 10. DM2/HLP Recommendations 1. Mexiletine, amiodarone, metoprolol. K 5.4 Mg 2.4 Repeat EKG. 2. Continue with DAPT and secondary prevention measures. 3. Fluid off loading per HD 4. Closely monitor LFTs 5. Discussed with [employer] rep, multiple treatment delivery Thursday, interrogated and programming adjustment made. Will arrange for EP appointment 6. Will continue to monitor device remotely. Follow up in office in 2 weeks CARRIE STINSON MD 11/18/16 0925: CARDIO Progress Notes Assessment Assessment Patient seen and examined 11/17/16. Agree with MANAGER POWER's assessment and plan. Telemetry showed few episodes of nonsustained ventricular tachycardia - improve since mexiletine was started. CAD status stable. Continue current medical regimen. Follow-up with our office in 2-4 weeks. We will consider EP referral for possible VT ablation as an outpatient. PATRICE HA APRN Nov 17, 2016 11:06 CARRIE STINSON MD Nov 18, 2016 09:25
--- NOTE | 2016-11-17 11:07 | EKG ---
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
--- NOTE | 2016-11-17 11:16 | EKG ---
[facility] [address] [place] [address] Test Date: 2016-11-17 Test Time: 10:58:53 Pat Name: DIANE CARLSON Department: Room: 201 1 Gender: F Senior Product Designer: CATHY : 1950 Requested By: PATRICE HA Order Number: [id number] Reading MD: Christian Morrison Measurements Intervals [place] Rate: 62 P: ID: QRS: -61 QRSD: 196 T: 78 QT: 514 QTc: 524 Interpretive Statements V-PACED Electronically Signed On 11-17-2016 12:07:10 CDT by Christian Morrison
--- NOTE | 2016-11-17 12:00 | PDOC ---
PROGRESS NOTES Chief Complaint Chief Complaint Acute hypoxic respiratory failure ASSESSMENT AND PLAN: 1. CHF: acute diastolic. extubated 11/12 2. Vtach: nonsustained, recurrent with Torsades: on IPPV (11/11/16), s/p AICID 11/14. off amio gtt. on mexitil. recurrent Vtach episodes, incl today. await cardiology input 3. ESRD: fluid overload 2/2 noncompliance. on HD // 4. Elevated troponin: 2/2 CHF, ESRD. no acute CAD 5. Hyperkalemia: remains borderline. renal diet. monitor 6. Anemia: 2/2 ESRD. on EPO, iron as per nephrology 7. Bronchitis: remains on cefepime. switch to levaquin 250 post HD in AM. cont mucolytics, nebs 7. DM2: well controlled on current regimen 8. HLD: 9. PVD: recent SENIOR ABAP DEVELOPER/stent to L subclavian artery 10. Hypoalbuminemia: multifactorial, with acute worsening 2/2 acute inflammation; also ESRD 11. Dispo: TO [facility] in AM (post HD) History of Present Illness History of Present Illness "wet" cough, occas productive. no F/C, no pain Vitals Vitals Vital Signs Date Time Temp Pulse Resp B/P (MAP) Pulse Ox O2 Delivery O2 Flow Rate FiO2 11/17/16 11:12 84 Room Air 11/17/16 10:42 97.7 65 20 95/55 (68) 97.7 11/17/16 08:00 1.0 Physical Exam General: Alert, Oriented X3, Cooperative, No acute distress Heart: Regular rate Lungs: Clear, Wheezing Abdomen: Normal bowel sounds Extremities: No cyanosis, Other (1+ bilateral LE pitting edema) Skin: No breakdown Labs LABS Laboratory Tests Test 11/16/16 13:05 11/16/16 16:49 11/17/16 06:20 11/17/16 07:33 Glucose (Fingerstick) 165 mg/dL (70-99) 187 mg/dL (70-99) 164 mg/dL (70-99) White Blood Count 9.8 x10^3/uL (4.0-11.0) Red Blood Count 2.98 x10^6/uL (3.50-5.40) Hemoglobin 8.8 g/dL (12.0-15.5) Hematocrit 27.3 % (36.0-47.0) Mean Corpuscular Volume 92 fL (79-100) Mean Corpuscular Hemoglobin 30 pg (25-35) Mean Corpuscular Hemoglobin Concent 32 g/dL (31-37) Red Cell Distribution Width 16.3 % (11.5-14.5) Platelet Count 154 x10^3/uL (140-400) Neutrophils (%) (Auto) 64 % (31-73) Lymphocytes (%) (Auto) 22 % (24-48) Monocytes (%) (Auto) 9 % (0-9) Eosinophils (%) (Auto) 4 % (0-3) Basophils (%) (Auto) 1 % (0-3) Neutrophils # (Auto) 6.2 x10^3uL (1.8-7.7) Lymphocytes # (Auto) 2.2 x10^3/uL (1.0-4.8) Monocytes # (Auto) 0.8 x10^3/uL (0.0-1.1) Eosinophils # (Auto) 0.4 x10^3/uL (0.0-0.7) Basophils # (Auto) 0.1 x10^3/uL (0.0-0.2) Sodium Level 138 mmol/L (136-145) Potassium Level 5.4 mmol/L (3.5-5.1) Chloride Level 103 mmol/L (98-107) Carbon Dioxide Level 31 mmol/L (21-32) Anion Gap 4 (6-14) Blood Urea Nitrogen 28 mg/dL (7-20) Creatinine 5.1 mg/dL (0.6-1.0) Estimated GFR (Cockcroft-Gault) 8.5 Glucose Level 137 mg/dL (70-99) Calcium Level 9.0 mg/dL (8.5-10.1) Magnesium Level 2.4 mg/dL (1.8-2.4) LEONILA SEPULVEDA MD Nov 17, 2016 12:00
[2016-11-17 12:45] LABS: DIRECT BILIRUBIN 0.1 mg/dL (0.0-0.2); TOTAL BILIRUBIN 0.2 mg/dL (0.2-1.0); TOTAL PROTEIN 5.5 g/dL (6.4-8.2)
[2016-11-17] MEDS ORDERED: MAGNESIUM SULFATE 2GM 50 ML IV PRN (13:45)
[2016-11-17] MEDS: CEFEPIME HCL 1 GM in IV NORMAL SALINE 50ML 50 ML IV SCH (13:53)
--- NOTE | 2016-11-17 13:55 | PDOC ---
SUBJECTIVE ROS ESRD DOing much better now. Declined HD for ^ed K CVS: no Orthopnea, no CP RESP: no SOB, no MENDOZA - Wet Cough GI: no Nausea, no Vomiting : no Dysuria, no Urgency OBJECTIVE Vital Signs Vital Signs Date Time Temp Pulse Resp B/P (MAP) Pulse Ox O2 Delivery O2 Flow Rate FiO2 11/17/16 11:12 84 Room Air 11/17/16 10:42 97.7 65 20 95/55 (68) 97.7 11/17/16 08:00 1.0 I & 0 Intake and Output 11/17/16 07:00 Intake Total 450 ml Output Total 400 ml Balance 50 ml Intake Oral 450 ml Output Urine Total 400 ml PHYSICAL EXAM Physical Exam GEN: Awake, Oriented x 2-3 , In no distress EYES: Vision Unchanged, Conjunctiva Normal EN: No EN Drainage, Mucous Membranes moist NECK: no JVD, m in JVP, Supple, no Thyromegaly CVS: S1S2, + Murmur, No Gallop, No Rub,no Edema RESP: no Rales, no Rhonchi,no Acc. Muscle Use GI: BS + ve, NO Bruit, Non Tender, Non Distended : no CVA tenderness, no Suprapubic Tenderness DIAGNOSIS/ASSESSMENT Assessment & Plan ESRD: ^ed K noted - offerred Pt HD " I Dont like dialysis" and declined ^ed K - pt declined X-tra Hd today non-compliance with HD - discussed with pt if she wishes to stop and go with Hospice instead; she refused that. Compliance with HD and diet re-emphasized NSVT - cardiology aware, pt not aware or symptomatic ANEMIA; Aranap as ordered, Transfuse with next HD as needed HTN: Current BP meds as reviewed. See orders for changes. BONE & MINERAL: follow hpos and alter binder regimen as needed Low Alb - check Pre-alb fluid overload - suspect due to non-compliance with HD - now resolved Discussed Plan of Care with pt at bedside at length Problems: COMMENT/RELEVANT DATA Meds Current Medications Medications (Trade) Dose Ordered Sig/Liza Start Time Stop Time Status Last Admin Dose Admin Acetaminophen (Tylenol) 500 mg PRN Q12HRS PRN 11/11/16 13:45 Acetaminophen/ Hydrocodone Bitart (Lortab 10/325) 1 tab PRN Q4HRS PRN 11/15/16 19:15 11/17/16 09:38 1 TAB Acetaminophen/ Hydrocodone Bitart (Lortab 5/325) 1 tab PRN Q4HRS PRN 11/11/16 13:30 11/15/16 19:10 DC 11/15/16 13:59 1 TAB Al Hydroxide/Mg Hydroxide (Mylanta Plus Xs) 30 ml PRN Q3HRS PRN 11/11/16 13:30 Cancel Albuterol/ Ipratropium (Duoneb) 3 ml 1X ONCE 11/11/16 14:00 11/11/16 14:31 DC 11/11/16 14:56 3 ML Alprazolam (Xanax) 0.25 mg DAILY PRN 11/11/16 13:45 11/15/16 13:58 0.25 MG Amiodarone HCl (Cordarone) 200 mg DAILY 11/13/16 10:00 11/17/16 09:38 200 MG Amiodarone HCl 150 mg/Dextrose 103 ml @ 618 mls/hr 1X ONCE 11/15/16 01:00 11/15/16 01:09 DC 11/15/16 01:13 618 MLS/HR Amiodarone HCl 450 mg/Dextrose 259 ml @ 17.26 mls/ hr CONT PRN 11/15/16 19:45 11/16/16 01:04 17.26 MLS/HR Amiodarone HCl 900 mg/Dextrose 518 ml @ 0 mls/hr CONT PRN 11/15/16 01:15 11/15/16 01:20 DC 11/15/16 01:20 34.53 MLS/HR Aspirin (Ecotrin) 81 mg DAILYWBKFT 11/12/16 08:00 11/17/16 09:39 81 MG Atorvastatin Calcium (Lipitor) 10 mg QHS 11/11/16 21:00 11/16/16 20:58 10 MG Bacitracin 02150 unit/Sodium Chloride 250 ml @ 250 mls/hr 1X ONCE 11/14/16 15:00 11/14/16 15:59 DC 11/14/16 15:40 250 MLS/HR Budesonide (Pulmicort) 0.5 mg RTBID 11/12/16 10:30 11/17/16 07:19 0.5 MG Calcium Acetate (Phoslo) 1,334 mg TIDWMEALS 11/11/16 17:00 11/16/16 17:00 1,334 MG Calcium Carbonate/ Glycine (Tums) 500 mg PRN Q3HRS PRN 11/11/16 13:30 11/16/16 10:48 500 MG Carvedilol (Coreg) 3.125 mg BIDWMEALS 11/11/16 17:00 11/12/16 10:41 DC 11/11/16 22:06 3.125 MG Cefazolin Sodium 1 gm/Sodium Chloride 50 ml @ 100 mls/hr 1X ONCE 11/14/16 16:15 11/14/16 16:44 UNV Cefepime HCl 1 gm/ Sodium Chloride 50 ml @ 100 mls/hr ONCE ONCE 11/11/16 14:45 11/11/16 15:14 DC 11/11/16 15:01 100 MLS/HR Cinacalcet (Sensipar) 30 mg QHS 11/11/16 21:00 11/16/16 20:58 30 MG Clopidogrel Bisulfate (Plavix) 75 mg DAILYWBKFT 11/12/16 08:00 11/17/16 09:39 75 MG Darbepoetin Jaskaran (Aranesp) 60 mcg WEEKLYHS 11/12/16 21:00 11/12/16 22:14 60 MCG Dextrose (Dextrose 50%-Water Syringe) 12.5 gm PRN Q15MIN PRN 11/15/16 08:30 Etomidate (Amidate) 20 mg STK-MED ONCE 11/12/16 01:03 11/12/16 01:04 DC Fentanyl Citrate (Fentanyl 2ml Vial) 100 mcg 1X ONCE 11/14/16 15:30 11/14/16 15:31 DC 11/14/16 15:30 100 MCG Fentanyl Citrate (Fentanyl 5ml Vial) 250 mcg STK-MED ONCE 11/14/16 14:55 11/14/16 14:56 DC Furosemide (Lasix) 60 mg DAILY PRN 11/11/16 13:45 11/12/16 09:34 60 MG Gabapentin (Neurontin) 300 mg DAILY 11/12/16 09:00 11/17/16 09:39 300 MG Guaifenesin (Robitussin Dm) 10 ml PRN Q6HRS PRN 11/11/16 13:30 Heparin Sodium (Porcine) (Heparin Sodium) 1,750 unit PRN Q6HRS PRN 11/12/16 01:45 11/15/16 09:59 DC 11/13/16 03:17 1,750 UNIT Heparin Sodium (Porcine) (Heparin Sq) 5,000 unit Q8HRS 11/15/16 14:00 11/17/16 05:25 5,000 UNIT Heparin Sodium/ Dextrose 500 ml @ 0 mls/hr CONT PRN 11/12/16 01:45 11/15/16 09:59 DC 11/13/16 04:00 26.889 MLS/HR Heparin Sodium/ Sodium Chloride 1,000 unit 1X ONCE 11/13/16 11:30 11/13/16 11:31 DC 11/13/16 11:59 1,000 UNIT Hydralazine HCl (Apresoline) 10 mg PRN Q4HRS PRN 11/12/16 13:15 Info (Anti-Coagulation Monitoring By Pharmacy) 1 each PRN DAILY PRN 11/12/16 02:00 11/15/16 10:03 DC 11/14/16 11:07 1 EACH Info (Do NOT chart on this entry -- for MONITORING) 1 each PRN DAILY PRN 11/11/16 13:00 11/13/16 12:59 DC Info (PHARMACY MONITORING -- do not chart) 1 each PRN DAILY PRN 11/15/16 09:00 UNV Insulin Aspart (NovoLOG) 0-7 UNITS TIDWMEALS 11/15/16 12:00 11/16/16 17:54 3 UNITS Insulin Detemir (Levemir) 50 units QHS 11/11/16 21:00 11/15/16 08:30 DC 11/13/16 21:21 50 UNITS Iohexol (Omnipaque 300 Mg/ml) 100 ml 1X ONCE 11/13/16 11:30 11/13/16 11:31 DC 11/13/16 12:00 92 ML Ipratropium [place] (Atrovent) 0.5 mg RTQID 11/16/16 12:00 11/17/16 11:11 0.5 MG Lidocaine HCl 20 ml 1X ONCE 11/14/16 15:30 11/14/16 15:31 DC 11/14/16 15:58 30 ML Lisinopril (Prinivil) 40 mg QTUTHSASU 11/11/16 16:00 11/15/16 15:43 40 MG Magnesium Sulfate/ Dextrose 50 ml @ 25 mls/hr 1X ONCE 11/14/16 22:30 11/15/16 00:29 DC 11/14/16 22:30 25 MLS/HR Magnesium Sulfate/ Dextrose (Magnesium Sulfate PREMIX 1GM) 1 gm STK-MED ONCE 11/13/16 21:00 11/13/16 21:01 DC Methylprednisolone Sodium Succinate (SOLU-Medrol 125MG VIAL) 125 mg 1X ONCE 11/11/16 14:30 11/11/16 14:32 DC 11/11/16 14:58 125 MG Metolazone (Zaroxolyn) 2.5 mg 3X/WEEK 11/12/16 09:00 11/17/16 09:39 2.5 MG Metoprolol Tartrate (Lopressor) 25 mg BID 11/14/16 09:30 11/17/16 09:40 25 MG Mexiletine HCl (Mexitil) 200 mg Q8HRS 11/15/16 16:00 11/17/16 05:21 200 MG Midazolam HCl (Versed) 5 mg 1X ONCE 11/14/16 15:30 11/14/16 15:31 DC 11/14/16 15:59 3 MG Nicotine (Nicoderm Cq 21mg) 1 patch PRN DAILY PRN 11/11/16 13:30 Non-Formulary Medication 5 mg HS 11/11/16 21:00 UNV Ondansetron HCl (Zofran) 4 mg PRN Q6HRS PRN 11/14/16 07:00 11/15/16 06:59 DC Pantoprazole Sodium (Protonix) 40 mg DAILYAC 11/12/16 10:30 11/17/16 09:36 40 MG Potassium Chloride (Klor-Con) 20 meq WEEKLY PRN 11/11/16 13:45 Prochlorperazine (Compazine) 25 mg PRN Q12HR PRN 11/11/16 13:30 Prochlorperazine Edisylate (Compazine) 5 mg PACU PRN PRN 11/14/16 07:00 11/15/16 06:59 DC Propofol 100 ml @ 0 mls/hr CONT PRN 11/12/16 01:30 11/13/16 09:06 DC Ringer's Solution 1,000 ml @ 30 mls/hr Q24H 11/14/16 07:00 11/14/16 18:59 DC Rocuronium [place] (Zemuron) 50 mg STK-MED ONCE 11/12/16 01:33 11/12/16 01:34 DC Sertraline HCl (Zoloft) 50 mg QHS 11/11/16 21:00 11/16/16 20:58 50 MG Sodium Chloride 1,000 ml @ 1,000 mls/hr Q1H PRN 11/15/16 08:59 11/15/16 14:58 DC Vancomycin HCl 1.5 gm/Sodium Chloride 500 ml @ 250 mls/hr 1X ONCE 11/11/16 14:30 11/11/16 16:29 UNV Vancomycin HCl 2 gm/Sodium Chloride 500 ml @ 250 mls/hr ONCE ONCE 11/11/16 14:30 11/11/16 16:29 DC 11/11/16 20:30 250 MLS/HR Vitamin B Complex/ Vitamin C (Alayna-Oneil) 1 tab DAILY 11/12/16 09:00 11/17/16 09:37 1 TAB Lab Laboratory Tests Test 11/16/16 16:49 11/17/16 06:20 11/17/16 07:33 11/17/16 11:35 Glucose (Fingerstick) 187 mg/dL (70-99) 164 mg/dL (70-99) 158 mg/dL (70-99) White Blood Count 9.8 x10^3/uL (4.0-11.0) Red Blood Count 2.98 x10^6/uL (3.50-5.40) Hemoglobin 8.8 g/dL (12.0-15.5) Hematocrit 27.3 % (36.0-47.0) Mean Corpuscular Volume 92 fL (79-100) Mean Corpuscular Hemoglobin 30 pg (25-35) Mean Corpuscular Hemoglobin Concent 32 g/dL (31-37) Red Cell Distribution Width 16.3 % (11.5-14.5) Platelet Count 154 x10^3/uL (140-400) Neutrophils (%) (Auto) 64 % (31-73) Lymphocytes (%) (Auto) 22 % (24-48) Monocytes (%) (Auto) 9 % (0-9) Eosinophils (%) (Auto) 4 % (0-3) Basophils (%) (Auto) 1 % (0-3) Neutrophils # (Auto) 6.2 x10^3uL (1.8-7.7) Lymphocytes # (Auto) 2.2 x10^3/uL (1.0-4.8) Monocytes # (Auto) 0.8 x10^3/uL (0.0-1.1) Eosinophils # (Auto) 0.4 x10^3/uL (0.0-0.7) Basophils # (Auto) 0.1 x10^3/uL (0.0-0.2) Sodium Level 138 mmol/L (136-145) Potassium Level 5.4 mmol/L (3.5-5.1) Chloride Level 103 mmol/L (98-107) Carbon Dioxide Level 31 mmol/L (21-32) Anion Gap 4 (6-14) Blood Urea Nitrogen 28 mg/dL (7-20) Creatinine 5.1 mg/dL (0.6-1.0) Estimated GFR (Cockcroft-Gault) 8.5 Glucose Level 137 mg/dL (70-99) Calcium Level 9.0 mg/dL (8.5-10.1) Magnesium Level 2.4 mg/dL (1.8-2.4) Total Bilirubin 0.2 mg/dL (0.2-1.0) Direct Bilirubin 0.1 mg/dL (0.0-0.2) Aspartate Amino Transf (AST/SGOT) 14 U/L (15-37) Alanine Aminotransferase (ALT/SGPT) 13 U/L (14-59) Alkaline Phosphatase 107 U/L (46-116) Total Protein 5.5 g/dL (6.4-8.2) Albumin 2.0 g/dL (3.4-5.0) AMENA QUARLES MD Nov 17, 2016 13:54
[2016-11-17] MEDS ORDERED: SODIUM POLYSTYRENE SULFONATE 15 GM/60 ML ORAL.SUSP. PO ONE (14:30)
[2016-11-17] MEDS ORDERED: IV NORMAL SALINE 500ML BAG 500 ML IV ONE (14:30)
[2016-11-17 14:40] VITALS: BP 84/42
[2016-11-17 19:10] VITALS: BP 86/38
[2016-11-17] MEDS: ATORVASTATIN CALCIUM 10 MG TABLET. PO SCH (20:28)
[2016-11-17] MEDS: CINACALCET HCL 30 MG TABLET PO SCH (20:29)
[2016-11-17] MEDS: SERTRALINE 50 MG TABLET. PO SCH (20:29)
[2016-11-17 23:00] VITALS: BP 86/56
[2016-11-18 03:15] VITALS: BP 81/44
[2016-11-18 03:57] LABS: BASO # 0.1 x10^3/uL (0.0-0.2); BASO % 1 % (0-3); EOS % 3 % (0-3); HEMATOCRIT 25.6 % (36.0-47.0); HEMOGLOBIN 8.2 g/dL (12.0-15.5); LYMPH # 1.4 x10^3/uL (1.0-4.8); LYMPH % 16 % (24-48); MEAN CORPUSCULAR HEMOGLOBIN 29 pg (25-35); MEAN CORPUSCULAR HGB CONC 32 g/dL (31-37); MEAN CORPUSCULAR VOLUME 91 fL (79-100); MONO % 10 % (0-9); NEUT % 71 % (31-73); PLATELET COUNT 161 x10^3/uL (140-400); RED BLOOD COUNT 2.81 x10^6/uL (3.50-5.40); WHITE BLOOD COUNT 9.1 x10^3/uL (4.0-11.0)
[2016-11-18 04:13] LABS: ALBUMIN 1.9 g/dL (3.4-5.0); CALCIUM 7.8 mg/dL (8.5-10.1); CREATININE 5.9 mg/dL (0.6-1.0); GFR 7.2; MAGNESIUM 2.4 mg/dL (1.8-2.4); PHOSPHORUS 4.1 mg/dL (2.6-4.7); POTASSIUM 5.3 mmol/L (3.5-5.1)
[2016-11-18] MEDS: HEPARIN PF for SUB-Q USE 5,000 UNIT/0.5 ML VIAL. SQ SCH ×3 (04:47→22:37)
[2016-11-18] MEDS: MEXILETINE HCL 200 MG CAPSULE PO SCH ×3 (04:48→22:34)
[2016-11-18 07:00] VITALS: BP 103/44
[2016-11-18] MEDS: IPRATROPIUM BROMIDE 0.5 MG/2.5 ML NEBU. NEB SCH ×4 (07:20→19:43)
[2016-11-18] MEDS: BUDESONIDE 0.5 MG/2 ML NEBU. NEB SCH ×2 (07:25→19:43)
[2016-11-18] MEDS: INSULIN ASPART 300 UNITS/3 ML INSULN.PEN SQ SCH ×3 (08:00→17:00)
[2016-11-18] MEDS: CALCIUM ACETATE 667 MG CAPSULE PO SCH ×3 (08:00→17:00)
[2016-11-18] MEDS: LISINOPRIL 10 MG TABLET PO SCH (09:00)
[2016-11-18] MEDS: METOPROLOL TART IMMED RELEASE 25 MG TABLET. PO SCH ×2 (09:00→20:12)
--- NOTE | 2016-11-18 09:57 | PDOC ---
PULMONARY PROGRESS NOTES Subjective extubated on 11/12, no increase soa Vitals Vital Signs Date Time Temp Pulse Resp B/P (MAP) Pulse Ox O2 Delivery O2 Flow Rate FiO2 11/18/16 08:00 Nasal Cannula 1.0 11/18/16 07:20 98 11/18/16 07:00 57 18 103/44 (63) 11/18/16 03:15 98.3 98.3 ROS: No Nausea, No Chest Pain, No Abdominal Pain, No Increase Cough General: Alert HEENT: Other (nc at perrl. shallow oropharynx. nose clear. neck, no lap, no thyromegaly) Lungs: Clear, Wheezing Cardiovascular: S1, S2 Abdomen: Soft, Non-tender Neuro Exam: Alert, Oriented Extremities: No Edema Skin: Warm Labs Laboratory Tests Test 11/16/16 13:05 11/16/16 16:49 11/17/16 06:20 11/17/16 07:33 Glucose (Fingerstick) 165 mg/dL (70-99) 187 mg/dL (70-99) 164 mg/dL (70-99) White Blood Count 9.8 x10^3/uL (4.0-11.0) Red Blood Count 2.98 x10^6/uL (3.50-5.40) Hemoglobin 8.8 g/dL (12.0-15.5) Hematocrit 27.3 % (36.0-47.0) Mean Corpuscular Volume 92 fL (79-100) Mean Corpuscular Hemoglobin 30 pg (25-35) Mean Corpuscular Hemoglobin Concent 32 g/dL (31-37) Red Cell Distribution Width 16.3 % (11.5-14.5) Platelet Count 154 x10^3/uL (140-400) Neutrophils (%) (Auto) 64 % (31-73) Lymphocytes (%) (Auto) 22 % (24-48) Monocytes (%) (Auto) 9 % (0-9) Eosinophils (%) (Auto) 4 % (0-3) Basophils (%) (Auto) 1 % (0-3) Neutrophils # (Auto) 6.2 x10^3uL (1.8-7.7) Lymphocytes # (Auto) 2.2 x10^3/uL (1.0-4.8) Monocytes # (Auto) 0.8 x10^3/uL (0.0-1.1) Eosinophils # (Auto) 0.4 x10^3/uL (0.0-0.7) Basophils # (Auto) 0.1 x10^3/uL (0.0-0.2) Sodium Level 138 mmol/L (136-145) Potassium Level 5.4 mmol/L (3.5-5.1) Chloride Level 103 mmol/L (98-107) Carbon Dioxide Level 31 mmol/L (21-32) Anion Gap 4 (6-14) Blood Urea Nitrogen 28 mg/dL (7-20) Creatinine 5.1 mg/dL (0.6-1.0) Estimated GFR (Cockcroft-Gault) 8.5 Glucose Level 137 mg/dL (70-99) Calcium Level 9.0 mg/dL (8.5-10.1) Magnesium Level 2.4 mg/dL (1.8-2.4) Total Bilirubin 0.2 mg/dL (0.2-1.0) Direct Bilirubin 0.1 mg/dL (0.0-0.2) Aspartate Amino Transf (AST/SGOT) 14 U/L (15-37) Alanine Aminotransferase (ALT/SGPT) 13 U/L (14-59) Alkaline Phosphatase 107 U/L (46-116) Total Protein 5.5 g/dL (6.4-8.2) Albumin 2.0 g/dL (3.4-5.0) Test 11/17/16 11:35 11/17/16 17:06 11/17/16 20:26 11/18/16 03:14 Glucose (Fingerstick) 158 mg/dL (70-99) 148 mg/dL (70-99) 215 mg/dL (70-99) White Blood Count 9.1 x10^3/uL (4.0-11.0) Red Blood Count 2.81 x10^6/uL (3.50-5.40) Hemoglobin 8.2 g/dL (12.0-15.5) Hematocrit 25.6 % (36.0-47.0) Mean Corpuscular Volume 91 fL (79-100) Mean Corpuscular Hemoglobin 29 pg (25-35) Mean Corpuscular Hemoglobin Concent 32 g/dL (31-37) Red Cell Distribution Width 16.0 % (11.5-14.5) Platelet Count 161 x10^3/uL (140-400) Neutrophils (%) (Auto) 71 % (31-73) Lymphocytes (%) (Auto) 16 % (24-48) Monocytes (%) (Auto) 10 % (0-9) Eosinophils (%) (Auto) 3 % (0-3) Basophils (%) (Auto) 1 % (0-3) Neutrophils # (Auto) 6.4 x10^3uL (1.8-7.7) Lymphocytes # (Auto) 1.4 x10^3/uL (1.0-4.8) Monocytes # (Auto) 0.9 x10^3/uL (0.0-1.1) Eosinophils # (Auto) 0.3 x10^3/uL (0.0-0.7) Basophils # (Auto) 0.1 x10^3/uL (0.0-0.2) Sodium Level 135 mmol/L (136-145) Potassium Level 5.3 mmol/L (3.5-5.1) Chloride Level 101 mmol/L (98-107) Carbon Dioxide Level 31 mmol/L (21-32) Anion Gap 3 (6-14) Blood Urea Nitrogen 33 mg/dL (7-20) Creatinine 5.9 mg/dL (0.6-1.0) Estimated GFR (Cockcroft-Gault) 7.2 Glucose Level 138 mg/dL (70-99) Calcium Level 7.8 mg/dL (8.5-10.1) Phosphorus Level 4.1 mg/dL (2.6-4.7) Magnesium Level 2.4 mg/dL (1.8-2.4) Albumin 1.9 g/dL (3.4-5.0) Test 11/18/16 07:53 Glucose (Fingerstick) 143 mg/dL (70-99) Laboratory Tests Test 11/17/16 11:35 11/17/16 17:06 11/17/16 20:26 11/18/16 03:14 Glucose (Fingerstick) 158 mg/dL (70-99) 148 mg/dL (70-99) 215 mg/dL (70-99) White Blood Count 9.1 x10^3/uL (4.0-11.0) Red Blood Count 2.81 x10^6/uL (3.50-5.40) Hemoglobin 8.2 g/dL (12.0-15.5) Hematocrit 25.6 % (36.0-47.0) Mean Corpuscular Volume 91 fL (79-100) Mean Corpuscular Hemoglobin 29 pg (25-35) Mean Corpuscular Hemoglobin Concent 32 g/dL (31-37) Red Cell Distribution Width 16.0 % (11.5-14.5) Platelet Count 161 x10^3/uL (140-400) Neutrophils (%) (Auto) 71 % (31-73) Lymphocytes (%) (Auto) 16 % (24-48) Monocytes (%) (Auto) 10 % (0-9) Eosinophils (%) (Auto) 3 % (0-3) Basophils (%) (Auto) 1 % (0-3) Neutrophils # (Auto) 6.4 x10^3uL (1.8-7.7) Lymphocytes # (Auto) 1.4 x10^3/uL (1.0-4.8) Monocytes # (Auto) 0.9 x10^3/uL (0.0-1.1) Eosinophils # (Auto) 0.3 x10^3/uL (0.0-0.7) Basophils # (Auto) 0.1 x10^3/uL (0.0-0.2) Sodium Level 135 mmol/L (136-145) Potassium Level 5.3 mmol/L (3.5-5.1) Chloride Level 101 mmol/L (98-107) Carbon Dioxide Level 31 mmol/L (21-32) Anion Gap 3 (6-14) Blood Urea Nitrogen 33 mg/dL (7-20) Creatinine 5.9 mg/dL (0.6-1.0) Estimated GFR (Cockcroft-Gault) 7.2 Glucose Level 138 mg/dL (70-99) Calcium Level 7.8 mg/dL (8.5-10.1) Phosphorus Level 4.1 mg/dL (2.6-4.7) Magnesium Level 2.4 mg/dL (1.8-2.4) Albumin 1.9 g/dL (3.4-5.0) Test 11/18/16 07:53 Glucose (Fingerstick) 143 mg/dL (70-99) Medications Active Scripts Medications Dose Route/Sig Max Daily Dose Days Date Category Dose Instructions Sertraline Hcl 50 Mg Tablet 50 Mg PO QHS 11/11/16 Reported Sensipar (Cinacalcet Hcl) 30 Mg Tablet 1 Tab PO QHS 11/11/16 Reported Alayna-Oneil Rx Tablet (Vit B Cmplx 3/Fa/Vit C/Biotin) 1 Each Tablet 1 Each PO DAILY 11/11/16 Reported Cranberry Plus Vitamin C Sftgl (Cranberry Conc/Ascorbic Acid) 1 Each Capsule 1 Each PO DAILY 11/11/16 Reported Lipitor (Atorvastatin Calcium) 10 Mg Tablet 1 Tab PO DAILY 11/11/16 Reported Coricidin Hbp Tablet (Acetaminophen/Chlorpheniramine) 1 Each Tablet 1 Each PO PRN 11/11/16 Reported Ferric Citrate 210 Mg Tablet 210 Mg PO TIDWMEALS 11/11/16 Reported Alprazolam 0.25 Mg Tablet 1 Tab PO DAILY PRN 11/11/16 Reported Lisinopril 40 Mg Tablet 40 Mg PO QTUTHSASU 10/25/16 Rx Carvedilol 3.125 Mg Tablet 3.125 Mg PO BIDWMEALS 10/25/16 Rx Plavix (Clopidogrel Bisulfate) 75 Mg Tablet 75 Mg PO DAILY 10/21/16 Reported Calcium Acetate 667 Mg Tablet 2 Tab PO TIDWMEALS 02/22/15 Reported last dose was this am next dose is wiith supper Tylenol Extra Strength (Acetaminophen) 500 Mg Tablet 500 Mg PO PRN Q12HRS PRN 02/22/15 Reported not given in hospital may resume when needed Metolazone 2.5 Mg Tablet 2.5 Mg PO 3X/WEEK 10/02/14 Reported Furosemide 40 Mg Tablet 60 Mg PO PRN PRN 10/02/14 Reported not given in hospital may take as instructed by provider Potassium Chloride 20 Meq Tab.er.prt 20 Meq PO WEEKLY PRN 10/02/14 Reported was not given in hospital Gabapentin 300 Mg Capsule 300 Mg PO DAILY 10/02/14 Reported Crestor (Rosuvastatin Calcium) 5 Mg Tablet 5 Mg PO HS 08/18/13 Reported was not given in the hospital as requested will resume at home Lantus (Insulin Glargine,Hum.rec.anlog) 100 Unit/1 Ml Vial 50 Unit SQ HS 05/31/13 Reported refused to take last night stated she would take her own at home Benadryl Allergy (Diphenhydramine Hcl) 25 Mg Tablet 25 Mg PO PRN 05/31/13 Reported not given in the hospital Aspir 81 (Aspirin) 81 Mg Tablet.dr 81 Mg PO DAILY 05/31/13 Reported last dose was this am resume in am Comments cxr reviewed, Findings are unchanged, small bilateral pleural effusions with adjacent airspace opacity. Impression . IMPRESSION: 1. Acute hypoxemic respiratory failure, multifactorial 2. Abnormal chest x-ray, acute CHF 3. Infiltrates/atelectasis. 4. Acute exacerbation of chronic obstructive pulmonary disease. 5. Acute diastolic congestive heart failure and volume overload. 6. Ventricular tachycardia, 7. Coronary artery disease status post stent on 10/24/2016. 8. Tobacco habituation. 9. End-stage renal disease, on hemodialysis. 10. Diabetes mellitus. 11. Hypertension. 12. Overweight, questionable obstructive sleep apnea-hypopnea syndrome. 13. snoring, eds, obesity, ? alejandro 14. NSVT S/P AICD Plan . 6 min [address] Transfer of d/c ok by [facility] d/c smoking follow up in office SHEELA GÓMEZ MD Nov 18, 2016 09:57
[2016-11-18 11:00] VITALS: BP 143/112
[2016-11-18] MEDS: ASPIRIN ENTERIC COATED 81 MG TABLET.DR. PO SCH (12:59)
[2016-11-18] MEDS: FOLIC/VIT B COMP W-C (RENAL) TABLET. PO SCH (12:59)
[2016-11-18] MEDS: GABAPENTIN 300 MG CAPSULE. PO SCH (12:59)
[2016-11-18] MEDS: CLOPIDOGREL BISULFATE 75 MG TABLET PO SCH (12:59)
[2016-11-18] MEDS: AMIODARONE HCL 200 MG TABLET. PO SCH (12:59)
[2016-11-18] MEDS: PANTOPRAZOLE 40 MG TABLET.DR. PO SCH (12:59)
--- NOTE | 2016-11-18 15:24 | PDOC ---
PROGRESS NOTES Chief Complaint Chief Complaint Acute hypoxic respiratory failure ASSESSMENT AND PLAN: 1. CHF: acute diastolic. extubated 11/12 2. Vtach: nonsustained, recurrent with Torsades: on IPPV (11/11/16), s/p AICID 11/14. off amio gtt. on mexitil, amio PO. ok to d/c home per cards 3. ESRD: fluid overload 2/2 noncompliance. on HD //; receiving HD today 4. Elevated troponin: 2/2 CHF, ESRD. no acute CAD 5. Hyperkalemia: remains borderline. renal diet. monitor 6. Anemia: 2/2 ESRD. on EPO, iron as per nephrology 7. Bronchitis: remains on cefepime. switch to levaquin 250 post HD in AM. cont mucolytics, nebs 7. DM2: well controlled on current regimen 8. HLD: on statin 9. PVD: recent DATA QUALITY CONSULT[employer]/stent to L subclavian artery 10. Hypoalbuminemia: multifactorial, with acute worsening 2/2 acute inflammation; also ESRD 11. Dispo: TO SNU in AM History of Present Illness History of Present Illness sleeping, difficult to wake. no c/o Vitals Vitals Vital Signs Date Time Temp Pulse Resp B/P (MAP) Pulse Ox O2 Delivery O2 Flow Rate FiO2 11/18/16 12:59 62 110/55 11/18/16 12:33 96 Room Air 11/18/16 11:00 98.9 18 98.9 11/18/16 08:00 1.0 Physical Exam General: No acute distress, Other (sleeping) Heart: Regular rate Lungs: Clear, Wheezing Abdomen: Normal bowel sounds, Soft Extremities: Other (1+ bilateral LE pitting edema) Skin: No rashes Labs LABS Laboratory Tests Test 11/17/16 17:06 11/17/16 20:26 11/18/16 03:14 11/18/16 07:53 Glucose (Fingerstick) 148 mg/dL (70-99) 215 mg/dL (70-99) 143 mg/dL (70-99) White Blood Count 9.1 x10^3/uL (4.0-11.0) Red Blood Count 2.81 x10^6/uL (3.50-5.40) Hemoglobin 8.2 g/dL (12.0-15.5) Hematocrit 25.6 % (36.0-47.0) Mean Corpuscular Volume 91 fL (79-100) Mean Corpuscular Hemoglobin 29 pg (25-35) Mean Corpuscular Hemoglobin Concent 32 g/dL (31-37) Red Cell Distribution Width 16.0 % (11.5-14.5) Platelet Count 161 x10^3/uL (140-400) Neutrophils (%) (Auto) 71 % (31-73) Lymphocytes (%) (Auto) 16 % (24-48) Monocytes (%) (Auto) 10 % (0-9) Eosinophils (%) (Auto) 3 % (0-3) Basophils (%) (Auto) 1 % (0-3) Neutrophils # (Auto) 6.4 x10^3uL (1.8-7.7) Lymphocytes # (Auto) 1.4 x10^3/uL (1.0-4.8) Monocytes # (Auto) 0.9 x10^3/uL (0.0-1.1) Eosinophils # (Auto) 0.3 x10^3/uL (0.0-0.7) Basophils # (Auto) 0.1 x10^3/uL (0.0-0.2) Sodium Level 135 mmol/L (136-145) Potassium Level 5.3 mmol/L (3.5-5.1) Chloride Level 101 mmol/L (98-107) Carbon Dioxide Level 31 mmol/L (21-32) Anion Gap 3 (6-14) Blood Urea Nitrogen 33 mg/dL (7-20) Creatinine 5.9 mg/dL (0.6-1.0) Estimated GFR (Cockcroft-Gault) 7.2 Glucose Level 138 mg/dL (70-99) Calcium Level 7.8 mg/dL (8.5-10.1) Phosphorus Level 4.1 mg/dL (2.6-4.7) Magnesium Level 2.4 mg/dL (1.8-2.4) Albumin 1.9 g/dL (3.4-5.0) Test 11/18/16 11:52 Glucose (Fingerstick) 146 mg/dL (70-99) LEONILA SEPULVEDA MD Nov 18, 2016 15:24
--- NOTE | 2016-11-18 15:35 | PDOC ---
Dialysis Progress Note Dialysis Note Dialysis Note Seen on Hemodialysis, tolerating treatment Okay for now Vitals on Hemodialysis: 174/139 60 afeb General Appearance: Awake: Alert Oriented x 3 Neck: No JVD or JVP Chest: CTA [place] Heart: S1 S2 Abdomen - Soft NTND Extremities - No Edema ESRD : Dialysis as below F 180 NR 3.5 Hrs 2 K 2.5 Ca 140 Na 35 HC03 Qb 350 + Qd 500+ Heparin 0 Units Uf 3-4 Kgs or to dry weight as tolerated May give 25-50 gms of 25% Albumin if needed to maintain Hemodynamic stability Treatment plan reviewed and discussed with sanitation inspector Vitals Vital Signs Vital Signs Date Time Temp Pulse Resp B/P (MAP) Pulse Ox O2 Delivery O2 Flow Rate FiO2 11/18/16 12:59 62 110/55 11/18/16 12:33 96 Room Air 11/18/16 11:00 98.9 18 98.9 11/18/16 08:00 1.0 Labs Last Labs Laboratory Tests Test 11/16/16 16:49 11/17/16 06:20 11/17/16 07:33 11/17/16 11:35 Glucose (Fingerstick) 187 mg/dL (70-99) 164 mg/dL (70-99) 158 mg/dL (70-99) White Blood Count 9.8 x10^3/uL (4.0-11.0) Red Blood Count 2.98 x10^6/uL (3.50-5.40) Hemoglobin 8.8 g/dL (12.0-15.5) Hematocrit 27.3 % (36.0-47.0) Mean Corpuscular Volume 92 fL (79-100) Mean Corpuscular Hemoglobin 30 pg (25-35) Mean Corpuscular Hemoglobin Concent 32 g/dL (31-37) Red Cell Distribution Width 16.3 % (11.5-14.5) Platelet Count 154 x10^3/uL (140-400) Neutrophils (%) (Auto) 64 % (31-73) Lymphocytes (%) (Auto) 22 % (24-48) Monocytes (%) (Auto) 9 % (0-9) Eosinophils (%) (Auto) 4 % (0-3) Basophils (%) (Auto) 1 % (0-3) Neutrophils # (Auto) 6.2 x10^3uL (1.8-7.7) Lymphocytes # (Auto) 2.2 x10^3/uL (1.0-4.8) Monocytes # (Auto) 0.8 x10^3/uL (0.0-1.1) Eosinophils # (Auto) 0.4 x10^3/uL (0.0-0.7) Basophils # (Auto) 0.1 x10^3/uL (0.0-0.2) Sodium Level 138 mmol/L (136-145) Potassium Level 5.4 mmol/L (3.5-5.1) Chloride Level 103 mmol/L (98-107) Carbon Dioxide Level 31 mmol/L (21-32) Anion Gap 4 (6-14) Blood Urea Nitrogen 28 mg/dL (7-20) Creatinine 5.1 mg/dL (0.6-1.0) Estimated GFR (Cockcroft-Gault) 8.5 Glucose Level 137 mg/dL (70-99) Calcium Level 9.0 mg/dL (8.5-10.1) Magnesium Level 2.4 mg/dL (1.8-2.4) Total Bilirubin 0.2 mg/dL (0.2-1.0) Direct Bilirubin 0.1 mg/dL (0.0-0.2) Aspartate Amino Transf (AST/SGOT) 14 U/L (15-37) Alanine Aminotransferase (ALT/SGPT) 13 U/L (14-59) Alkaline Phosphatase 107 U/L (46-116) Total Protein 5.5 g/dL (6.4-8.2) Albumin 2.0 g/dL (3.4-5.0) Test 11/17/16 17:06 11/17/16 20:26 11/18/16 03:14 11/18/16 07:53 Glucose (Fingerstick) 148 mg/dL (70-99) 215 mg/dL (70-99) 143 mg/dL (70-99) White Blood Count 9.1 x10^3/uL (4.0-11.0) Red Blood Count 2.81 x10^6/uL (3.50-5.40) Hemoglobin 8.2 g/dL (12.0-15.5) Hematocrit 25.6 % (36.0-47.0) Mean Corpuscular Volume 91 fL (79-100) Mean Corpuscular Hemoglobin 29 pg (25-35) Mean Corpuscular Hemoglobin Concent 32 g/dL (31-37) Red Cell Distribution Width 16.0 % (11.5-14.5) Platelet Count 161 x10^3/uL (140-400) Neutrophils (%) (Auto) 71 % (31-73) Lymphocytes (%) (Auto) 16 % (24-48) Monocytes (%) (Auto) 10 % (0-9) Eosinophils (%) (Auto) 3 % (0-3) Basophils (%) (Auto) 1 % (0-3) Neutrophils # (Auto) 6.4 x10^3uL (1.8-7.7) Lymphocytes # (Auto) 1.4 x10^3/uL (1.0-4.8) Monocytes # (Auto) 0.9 x10^3/uL (0.0-1.1) Eosinophils # (Auto) 0.3 x10^3/uL (0.0-0.7) Basophils # (Auto) 0.1 x10^3/uL (0.0-0.2) Sodium Level 135 mmol/L (136-145) Potassium Level 5.3 mmol/L (3.5-5.1) Chloride Level 101 mmol/L (98-107) Carbon Dioxide Level 31 mmol/L (21-32) Anion Gap 3 (6-14) Blood Urea Nitrogen 33 mg/dL (7-20) Creatinine 5.9 mg/dL (0.6-1.0) Estimated GFR (Cockcroft-Gault) 7.2 Glucose Level 138 mg/dL (70-99) Calcium Level 7.8 mg/dL (8.5-10.1) Phosphorus Level 4.1 mg/dL (2.6-4.7) Magnesium Level 2.4 mg/dL (1.8-2.4) Albumin 1.9 g/dL (3.4-5.0) Test 11/18/16 11:52 Glucose (Fingerstick) 146 mg/dL (70-99) Laboratory Tests Test 11/17/16 17:06 11/17/16 20:26 11/18/16 03:14 11/18/16 07:53 Glucose (Fingerstick) 148 mg/dL (70-99) 215 mg/dL (70-99) 143 mg/dL (70-99) White Blood Count 9.1 x10^3/uL (4.0-11.0) Red Blood Count 2.81 x10^6/uL (3.50-5.40) Hemoglobin 8.2 g/dL (12.0-15.5) Hematocrit 25.6 % (36.0-47.0) Mean Corpuscular Volume 91 fL (79-100) Mean Corpuscular Hemoglobin 29 pg (25-35) Mean Corpuscular Hemoglobin Concent 32 g/dL (31-37) Red Cell Distribution Width 16.0 % (11.5-14.5) Platelet Count 161 x10^3/uL (140-400) Neutrophils (%) (Auto) 71 % (31-73) Lymphocytes (%) (Auto) 16 % (24-48) Monocytes (%) (Auto) 10 % (0-9) Eosinophils (%) (Auto) 3 % (0-3) Basophils (%) (Auto) 1 % (0-3) Neutrophils # (Auto) 6.4 x10^3uL (1.8-7.7) Lymphocytes # (Auto) 1.4 x10^3/uL (1.0-4.8) Monocytes # (Auto) 0.9 x10^3/uL (0.0-1.1) Eosinophils # (Auto) 0.3 x10^3/uL (0.0-0.7) Basophils # (Auto) 0.1 x10^3/uL (0.0-0.2) Sodium Level 135 mmol/L (136-145) Potassium Level 5.3 mmol/L (3.5-5.1) Chloride Level 101 mmol/L (98-107) Carbon Dioxide Level 31 mmol/L (21-32) Anion Gap 3 (6-14) Blood Urea Nitrogen 33 mg/dL (7-20) Creatinine 5.9 mg/dL (0.6-1.0) Estimated GFR (Cockcroft-Gault) 7.2 Glucose Level 138 mg/dL (70-99) Calcium Level 7.8 mg/dL (8.5-10.1) Phosphorus Level 4.1 mg/dL (2.6-4.7) Magnesium Level 2.4 mg/dL (1.8-2.4) Albumin 1.9 g/dL (3.4-5.0) Test 11/18/16 11:52 Glucose (Fingerstick) 146 mg/dL (70-99) Assessment Assessment Problems Medical Problems: (1) Fluid overload Status: Acute (2) Hypoxia Status: Acute (3) Pneumonia Status: Acute (4) SIRS (systemic inflammatory response syndrome) Status: Acute Problems: Plan Plan of Care Problems Medical Problems: (1) Fluid overload Status: Acute (2) Hypoxia Status: Acute (3) Pneumonia Status: Acute (4) SIRS (systemic inflammatory response syndrome) Status: Acute AMENA QUARLES MD Nov 18, 2016 15:35
[2016-11-18] MEDS ORDERED: IV NORMAL SALINE 1000ML BAG 1,000 ML IV PRN ×2 (16:36)
[2016-11-18] MEDS ORDERED: DIALYSIS PATIENT. MC PRN ×2 (16:45)
[2016-11-18 19:30] VITALS: BP 155/59
[2016-11-18] MEDS: CEFEPIME HCL 1 GM in IV NORMAL SALINE 50ML 50 ML IV SCH (20:11)
[2016-11-18] MEDS: CINACALCET HCL 30 MG TABLET PO SCH (20:12)
[2016-11-18] MEDS: SERTRALINE 50 MG TABLET. PO SCH (20:12)
[2016-11-18] MEDS: ATORVASTATIN CALCIUM 10 MG TABLET. PO SCH (20:12)
[2016-11-18 22:40] VITALS: BP 143/58
[2016-11-19] MEDS: HEPARIN PF for SUB-Q USE 5,000 UNIT/0.5 ML VIAL. SQ SCH (06:14)
[2016-11-19] MEDS: MEXILETINE HCL 200 MG CAPSULE PO SCH (06:15)
[2016-11-19 07:00] VITALS: BP 157/67
[2016-11-19 07:14] LABS: ALBUMIN 1.9 g/dL (3.4-5.0); CREATININE 4.1 mg/dL (0.6-1.0); GFR 10.9; PHOSPHORUS 2.9 mg/dL (2.6-4.7); POTASSIUM 4.3 mmol/L (3.5-5.1)
[2016-11-19] MEDS: IPRATROPIUM BROMIDE 0.5 MG/2.5 ML NEBU. NEB SCH ×2 (07:23→11:24)
[2016-11-19] MEDS: BUDESONIDE 0.5 MG/2 ML NEBU. NEB SCH (07:23)
[2016-11-19] MEDS: INSULIN ASPART 300 UNITS/3 ML INSULN.PEN SQ SCH ×2 (08:00→12:00)
--- NOTE | 2016-11-19 08:57 | PDOC ---
PULMONARY PROGRESS NOTES Subjective extubated on 11/12, no increase soa Vitals Vital Signs Date Time Temp Pulse Resp B/P (MAP) Pulse Ox O2 Delivery O2 Flow Rate FiO2 11/19/16 07:41 Nasal Cannula 1.0 11/19/16 07:23 94 11/19/16 07:00 98.1 61 17 157/67 (97) 98.1 ROS: No Nausea, No Chest Pain, No Abdominal Pain, No Increase Cough General: Alert HEENT: Other (nc at perrl. shallow oropharynx. nose clear. neck, no lap, no thyromegaly) Lungs: Clear, Wheezing Cardiovascular: S1, S2 Abdomen: Soft, Non-tender Neuro Exam: Alert, Oriented Extremities: No Edema Skin: Warm Labs Laboratory Tests Test 11/17/16 11:35 11/17/16 17:06 11/17/16 20:26 11/18/16 03:14 Glucose (Fingerstick) 158 mg/dL (70-99) 148 mg/dL (70-99) 215 mg/dL (70-99) White Blood Count 9.1 x10^3/uL (4.0-11.0) Red Blood Count 2.81 x10^6/uL (3.50-5.40) Hemoglobin 8.2 g/dL (12.0-15.5) Hematocrit 25.6 % (36.0-47.0) Mean Corpuscular Volume 91 fL (79-100) Mean Corpuscular Hemoglobin 29 pg (25-35) Mean Corpuscular Hemoglobin Concent 32 g/dL (31-37) Red Cell Distribution Width 16.0 % (11.5-14.5) Platelet Count 161 x10^3/uL (140-400) Neutrophils (%) (Auto) 71 % (31-73) Lymphocytes (%) (Auto) 16 % (24-48) Monocytes (%) (Auto) 10 % (0-9) Eosinophils (%) (Auto) 3 % (0-3) Basophils (%) (Auto) 1 % (0-3) Neutrophils # (Auto) 6.4 x10^3uL (1.8-7.7) Lymphocytes # (Auto) 1.4 x10^3/uL (1.0-4.8) Monocytes # (Auto) 0.9 x10^3/uL (0.0-1.1) Eosinophils # (Auto) 0.3 x10^3/uL (0.0-0.7) Basophils # (Auto) 0.1 x10^3/uL (0.0-0.2) Sodium Level 135 mmol/L (136-145) Potassium Level 5.3 mmol/L (3.5-5.1) Chloride Level 101 mmol/L (98-107) Carbon Dioxide Level 31 mmol/L (21-32) Anion Gap 3 (6-14) Blood Urea Nitrogen 33 mg/dL (7-20) Creatinine 5.9 mg/dL (0.6-1.0) Estimated GFR (Cockcroft-Gault) 7.2 Glucose Level 138 mg/dL (70-99) Calcium Level 7.8 mg/dL (8.5-10.1) Phosphorus Level 4.1 mg/dL (2.6-4.7) Magnesium Level 2.4 mg/dL (1.8-2.4) Albumin 1.9 g/dL (3.4-5.0) Test 11/18/16 07:53 11/18/16 11:52 11/18/16 20:58 11/19/16 05:15 Glucose (Fingerstick) 143 mg/dL (70-99) 146 mg/dL (70-99) 121 mg/dL (70-99) Sodium Level 139 mmol/L (136-145) Potassium Level 4.3 mmol/L (3.5-5.1) Chloride Level 101 mmol/L (98-107) Carbon Dioxide Level 33 mmol/L (21-32) Anion Gap 5 (6-14) Blood Urea Nitrogen 18 mg/dL (7-20) Creatinine 4.1 mg/dL (0.6-1.0) Estimated GFR (Cockcroft-Gault) 10.9 Glucose Level 105 mg/dL (70-99) Calcium Level 8.0 mg/dL (8.5-10.1) Phosphorus Level 2.9 mg/dL (2.6-4.7) Magnesium Level 2.1 mg/dL (1.8-2.4) Albumin 1.9 g/dL (3.4-5.0) Test 11/19/16 07:17 Glucose (Fingerstick) 121 mg/dL (70-99) Laboratory Tests Test 11/18/16 11:52 11/18/16 20:58 11/19/16 05:15 11/19/16 07:17 Glucose (Fingerstick) 146 mg/dL (70-99) 121 mg/dL (70-99) 121 mg/dL (70-99) Sodium Level 139 mmol/L (136-145) Potassium Level 4.3 mmol/L (3.5-5.1) Chloride Level 101 mmol/L (98-107) Carbon Dioxide Level 33 mmol/L (21-32) Anion Gap 5 (6-14) Blood Urea Nitrogen 18 mg/dL (7-20) Creatinine 4.1 mg/dL (0.6-1.0) Estimated GFR (Cockcroft-Gault) 10.9 Glucose Level 105 mg/dL (70-99) Calcium Level 8.0 mg/dL (8.5-10.1) Phosphorus Level 2.9 mg/dL (2.6-4.7) Magnesium Level 2.1 mg/dL (1.8-2.4) Albumin 1.9 g/dL (3.4-5.0) Medications Active Scripts Medications Dose Route/Sig Max Daily Dose Days Date Category Dose Instructions Sertraline Hcl 50 Mg Tablet 50 Mg PO QHS 11/11/16 Reported Sensipar (Cinacalcet Hcl) 30 Mg Tablet 1 Tab PO QHS 11/11/16 Reported Alayna-Oneil Rx Tablet (Vit B Cmplx 3/Fa/Vit C/Biotin) 1 Each Tablet 1 Each PO DAILY 11/11/16 Reported Cranberry Plus Vitamin C Sftgl (Cranberry Conc/Ascorbic Acid) 1 Each Capsule 1 Each PO DAILY 11/11/16 Reported Lipitor (Atorvastatin Calcium) 10 Mg Tablet 1 Tab PO DAILY 11/11/16 Reported Coricidin Hbp Tablet (Acetaminophen/Chlorpheniramine) 1 Each Tablet 1 Each PO PRN 11/11/16 Reported Ferric Citrate 210 Mg Tablet 210 Mg PO TIDWMEALS 11/11/16 Reported Alprazolam 0.25 Mg Tablet 1 Tab PO DAILY PRN 11/11/16 Reported Lisinopril 40 Mg Tablet 40 Mg PO QTUTHSASU 10/25/16 Rx Carvedilol 3.125 Mg Tablet 3.125 Mg PO BIDWMEALS 10/25/16 Rx Plavix (Clopidogrel Bisulfate) 75 Mg Tablet 75 Mg PO DAILY 10/21/16 Reported Calcium Acetate 667 Mg Tablet 2 Tab PO TIDWMEALS 02/22/15 Reported last dose was this am next dose is wiith supper Tylenol Extra Strength (Acetaminophen) 500 Mg Tablet 500 Mg PO PRN Q12HRS PRN 02/22/15 Reported not given in hospital may resume when needed Metolazone 2.5 Mg Tablet 2.5 Mg PO 3X/WEEK 10/02/14 Reported Furosemide 40 Mg Tablet 60 Mg PO PRN PRN 10/02/14 Reported not given in hospital may take as instructed by provider Potassium Chloride 20 Meq Tab.er.prt 20 Meq PO WEEKLY PRN 10/02/14 Reported was not given in hospital Gabapentin 300 Mg Capsule 300 Mg PO DAILY 10/02/14 Reported Crestor (Rosuvastatin Calcium) 5 Mg Tablet 5 Mg PO HS 08/18/13 Reported was not given in the hospital as requested will resume at home Lantus (Insulin Glargine,Hum.rec.anlog) 100 Unit/1 Ml Vial 50 Unit SQ HS 05/31/13 Reported refused to take last night stated she would take her own at home Benadryl Allergy (Diphenhydramine Hcl) 25 Mg Tablet 25 Mg PO PRN 05/31/13 Reported not given in the hospital Aspir 81 (Aspirin) 81 Mg Tablet.dr 81 Mg PO DAILY 05/31/13 Reported last dose was this am resume in am Comments cxr reviewed, Findings are unchanged, small bilateral pleural effusions with adjacent airspace opacity. Impression . IMPRESSION: 1. Acute hypoxemic respiratory failure, multifactorial 2. Abnormal chest x-ray, acute CHF 3. Infiltrates/atelectasis. 4. Acute exacerbation of chronic obstructive pulmonary disease. 5. Acute diastolic congestive heart failure and volume overload. 6. Ventricular tachycardia, 7. Coronary artery disease status post stent on 10/24/2016. 8. Tobacco habituation. 9. End-stage renal disease, on hemodialysis. 10. Diabetes mellitus. 11. Hypertension. 12. Overweight, questionable obstructive sleep apnea-hypopnea syndrome. 13. snoring, eds, obesity, ? alejandro 14. NSVT S/P AICD Plan . 6 min walk Transfer of d/c ok by ok d/c smoking follow up in office SHEELA GÓMEZ MD Nov 19, 2016 08:57
[2016-11-19] MEDS: metOLazone 2.5 MG TABLET PO SCH (09:00)
[2016-11-19] MEDS: GABAPENTIN 300 MG CAPSULE. PO SCH (09:48)
[2016-11-19] MEDS: PANTOPRAZOLE 40 MG TABLET.DR. PO SCH (09:48)
[2016-11-19] MEDS: CALCIUM ACETATE 667 MG CAPSULE PO SCH ×2 (09:48→12:00)
[2016-11-19] MEDS: FOLIC/VIT B COMP W-C (RENAL) TABLET. PO SCH (09:48)
[2016-11-19] MEDS: FUROSEMIDE 40 MG TABLET. PO PRN (09:48)
[2016-11-19] MEDS: ASPIRIN ENTERIC COATED 81 MG TABLET.DR. PO SCH (09:48)
[2016-11-19] MEDS: CLOPIDOGREL BISULFATE 75 MG TABLET PO SCH (09:48)
[2016-11-19] MEDS: AMIODARONE HCL 200 MG TABLET. PO SCH (09:49)
[2016-11-19] MEDS: METOPROLOL TART IMMED RELEASE 25 MG TABLET. PO SCH (09:49)
[2016-11-19] MEDS: LISINOPRIL 10 MG TABLET PO SCH (09:50)
[2016-11-19 11:00] VITALS: BP 157/67
--- NOTE | 2016-11-20 22:45 | DS ---
DATE OF DISCHARGE: 11/19/2016 CHIEF COMPLAINT: Acute hypoxic respiratory failure. HOSPITAL COURSE: The patient is a 66-year-old woman with past medical history of end-stage renal disease, cardiomyopathy, CAD, who presented to the Emergency Room with shortness of breath and generalized weakness. She actually was admitted and required intubation due to severe shortness of breath. She was found to be in acute diastolic heart failure for which she received additional hemodialysis with ultrafiltrations. She was able to be extubated the following day after admit. For V tach, which was thought to be nonsustained, however, with torsades, an AICD was placed on 11/14/2016. She was initially kept on IV amiodarone, which later was changed to p.o. as well as Mexitil. Both medications were continued after discharge. She did have mild troponin leak, which was attributed to CHF as well as end-stage renal disease without an acute component of CAD. Breathing issues were also attributed to acute bronchitis for which she initially was started on cefepime, which was later switched to Levaquin p.o. Mucolytic and nebulizers were continued as well with good improvement in her respiratory function. Because of generalized weakness and failure to thrive at home, she was deemed appropriate by OT and PT for SNF placement. PHYSICAL EXAMINATION: VITAL SIGNS: Show blood pressure of 110/55, heart rate of 62, respiratory rate at 18. She is afebrile. GENERAL: This is an ill-appearing 66-year-old woman, alert and oriented, in no acute distress. LUNGS: Fairly clear. HEART: Regular rate and rhythm. ABDOMEN: Has positive bowel sounds, soft, nontender. EXTREMITIES: Show 1+ pitting edema in bilateral lower extremity. DISCHARGE DISPOSITION: To SNF. DISCHARGE CONDITION: Improved. DISCHARGE MEDICATIONS: Please refer to MAR. DISCHARGE INSTRUCTIONS: The patient will receive OT and PT at rehab. She will return to her primary care physician after discharge to home. LEONILA SEPULVEDA MD DR: SIENA/nts JOB#: [id number] / [id number] [facility] Pina [facility]
== END 2016-11-19 13:50 | DRG 242 ==
LOC: ER 11:25 → 1 WEST ICU 14:24 → 2 NORTH 11-16 15:26
PROVIDERS: ADMIT Internal Medicine; ATTEND Internal Medicine
PROC: 5A1D60Z (ICD-10-PCS; 2016-11-12)
PROC: 30233N1 Transfusion of Nonautologous Red Blood Cells into Peripheral Vein, Percutaneous Approach (ICD-10-PCS; 2016-11-12)
PROC: 5A1935Z Respiratory Ventilation, Less than 24 Consecutive Hours (ICD-10-PCS; principal; 2016-11-13)
PROC: 0BH17EZ Insertion of Endotracheal Airway into Trachea, Via Natural or Artificial Opening (ICD-10-PCS; 2016-11-13)
PROC: 4A023N7 Measurement of Cardiac Sampling and Pressure, Left Heart, Percutaneous Approach (ICD-10-PCS; 2016-11-13)
PROC: B2111ZZ Fluoroscopy of Multiple Coronary Arteries using Low Osmolar Contrast (ICD-10-PCS; 2016-11-13)
PROC: 0JH606Z Insertion of Pacemaker, Dual Chamber into Chest Subcutaneous Tissue and Fascia, Open Approach (ICD-10-PCS; 2016-11-14)
PROC: 02HK3JZ Insertion of Pacemaker Lead into Right Ventricle, Percutaneous Approach (ICD-10-PCS; 2016-11-14)
PROC: 02H63JZ Insertion of Pacemaker Lead into Right Atrium, Percutaneous Approach (ICD-10-PCS; 2016-11-14)
PROC: 5A2204Z Restoration of Cardiac Rhythm, Single (ICD-10-PCS; 2016-11-14)
DX: I50.33 Acute on chronic diastolic (congestive) heart failure (principal); J96.01 Acute respiratory failure with hypoxia; I49.01 Ventricular fibrillation; N18.6 End stage renal disease; I95.9 Hypotension, unspecified; I47.2 Ventricular tachycardia; J44.0 Chronic obstructive pulmonary disease with (acute) lower respiratory infection; I42.9 Cardiomyopathy, unspecified; R65.10 Systemic inflammatory response syndrome (SIRS) of non-infectious origin without acute organ dysfunction; I46.9 Cardiac arrest, cause unspecified; J96.21 Acute and chronic respiratory failure with hypoxia; I13.2 Hypertensive heart and chronic kidney disease with heart failure and with stage 5 chronic kidney disease, or end stage renal disease; J44.1 Chronic obstructive pulmonary disease with (acute) exacerbation; E44.1 Mild protein-calorie malnutrition; I25.110 Atherosclerotic heart disease of native coronary artery with unstable angina pectoris; E11.22 Type 2 diabetes mellitus with diabetic chronic kidney disease; W18.30XA Fall on same level, unspecified, initial encounter; D63.1 Anemia in chronic kidney disease; E66.3 Overweight; E78.5 Hyperlipidemia, unspecified; Z91.048 Other nonmedicinal substance allergy status; E87.5 Hyperkalemia; F17.210 Nicotine dependence, cigarettes, uncomplicated; I49.3 Ventricular premature depolarization; I73.9 Peripheral vascular disease, unspecified; F32.9 Major depressive disorder, single episode, unspecified; J30.9 Allergic rhinitis, unspecified; M54.12 Radiculopathy, cervical region; M54.5 Low back pain; J20.9 Acute bronchitis, unspecified; R62.7 Adult failure to thrive; R74.8 Abnormal levels of other serum enzymes; Z83.3 Family history of diabetes mellitus; Z90.710 Acquired absence of both cervix and uterus; Z91.15 Patient's noncompliance with renal dialysis; Z91.19 Patient's noncompliance with other medical treatment and regimen; Z95.5 Presence of coronary angioplasty implant and graft; Z95.810 Presence of automatic (implantable) cardiac defibrillator; Z99.2 Dependence on renal dialysis; Z90.49 Acquired absence of other specified parts of digestive tract; Z88.8 Allergy status to other drugs, medicaments and biological substances; Z71.6 Tobacco abuse counseling
CPT/HCPCS: 33230; 36415; 36600; 71010; 71275; 80047; 80048; 80053; 80069; 80076; 82553; 82805; 82962; 83605; 83735; 83880; 84100; 84443; 84484; 85007; 85025; 85027; 85520; 85610; 86850; 86900; 86901; 86920; 87040; 87641; 93005; 93308; 93458; 93641; 94002; 94003; 94250; 94620; 94640; 94660; 94760; 94799; 96361; 96365; 96375; 99152; 99153; C1721; C1769; C1892; C1895; C1898; J0282; J0690; J0692; J0881; J1644; J1815; J2250; J2405; J2930; J3010; J3370; J3475; J3490; J7030; J7040; J7042; J7050; J7060; J7620; J7626; J7644; P9016; Q9967; 97116; 97530; 97535; 99285-25; J2001

== ENCOUNTER 2016-12-11 03:25 | Inpatient (IN) | payer MEDICARE, BC ==
[2016-12-11] VITALS (13 sets, daily range): BP systolic 103–179; BP diastolic 38–79
[~2016-12-11] VITALS: Ht 162.6 cm; Wt 71.4 kg
[~2016-12-11 03:25] MED LIST changes: +ACET1TAB30 PO; +ALPR0.254 PO; +ATOR10TA PO; +CINA30TA2 PO; +CRAN1CAP11 PO; +FERR210T PO; +SERT50TA8 PO; +VIT1TABL71 PO
[2016-12-11 03:42] LABS: BASO # 0.2 x10^3/uL (0.0-0.2); BASO % 1 % (0-3); EOS % 2 % (0-3); HEMATOCRIT 30.4 % (36.0-47.0); HEMOGLOBIN 9.6 g/dL (12.0-15.5); LYMPH # 3.4 x10^3/uL (1.0-4.8); LYMPH % 25 % (24-48); MEAN CORPUSCULAR HEMOGLOBIN 29 pg (25-35); MEAN CORPUSCULAR HGB CONC 32 g/dL (31-37); MEAN CORPUSCULAR VOLUME 93 fL (79-100); MONO % 6 % (0-9); NEUT % 66 % (31-73); PLATELET COUNT 306 x10^3/uL (140-400); RED BLOOD COUNT 3.28 x10^6/uL (3.50-5.40); RED CELL DISTRIBUTION WIDTH 17.2 % (11.5-14.5); WHITE BLOOD COUNT 13.4 x10^3/uL (4.0-11.0)
[2016-12-11] MEDS ORDERED: IPRATRPIUM/ALBUTEROL 0.5/2.5MG 3 ML NEBU. NEB ONE (03:45)
[2016-12-11 03:46] LABS: POTASSIUM ISTAT 3.6 mmol/L (3.5-5.0)
--- NOTE | 2016-12-11 03:53 | PHYS DOC ---
Past Medical History Past Medical History: Anemia, Diabetes-Type II, Hypertension, Renal Failure Additional Past Medical Histor: dialysis Past Surgical History: Cholecystectomy, Hysterectomy, Tonsillectomy, Other Additional Past Surgical Histo: cardiac cath 10/2016-w/stent placement, back surgery,rotator cuff Alcohol Use: None Drug Use: None Adult General Chief Complaint Chief Complaint: SHORTNESS OF BREATH HPI HPI 66-year-old female with a history of end-stage renal disease and CHF presenting to the emergency Department with hypoxia and respiratory distress. She presents by EMS today after having worsening shortness of breath. Patient is placed on facemask. Location lungs. Duration intermittent. Improved with oxygen administration. Review of systems is negative for abdominal pain nausea vomiting. Positive for chest pain and shortness of breath. All other review of systems is negative unless otherwise noted in history of present illness. ED course: 66-year-old female presenting with chest pain shortness of breath and acute respiratory distress. Triage vital signs show the patient to be hypoxic on room air. She is placed on BiPAP upon presentation. DuoNeb ordered. Chest x-ray blood work and EKG obtained. EKG shows left bundle branch block pattern. Modified [place] within the reference range of normal repolarization. Chest x-ray reviewed. Patient was then admitted to our ICU for further evaluation workup and care. Cardiology and pulmonology placed. I discussed the case with Dr. Mora. Patient's symptomatology improved significantly after positive pressure ventilation initiated. I did order 40 mg Lasix IV because the patient does still make urine. Elmore placed for strict I&O monitoring. Review of Systems Review of Systems SEE ABOVE. Current Medications Current Medications Current Medications Medications (Trade) Dose Ordered Sig/Liza Start Time Stop Time Status Last Admin Dose Admin Albuterol/ Ipratropium (Duoneb) 3 ml 1X ONCE 12/11/16 03:45 12/11/16 03:46 DC 12/11/16 03:40 3 ML Furosemide (Lasix) 40 mg 1X ONCE 12/11/16 04:00 12/11/16 04:02 DC 12/11/16 04:01 40 MG Ondansetron HCl (Zofran) 4 mg PRN Q8HRS PRN 12/11/16 04:00 12/12/16 03:59 Allergies Allergies Allergies Coded Allergies Type Severity Reaction Last Updated Verified ciprofloxacin Allergy Intermediate Rash 01/25/15 Yes morphine Adverse Reaction Severe makes her skin crawl 01/25/15 Yes oxycodone Adverse Reaction Severe makes her skin crawl 01/25/15 Yes adhesive Adverse Reaction Intermediate blisters 01/25/15 Yes Physical Exam Physical Exam SEE ABOVE Constitutional: Well developed, well nourished, pt in resp distress. HENT: Normocephalic, atraumatic, bilateral external ears normal, oropharynx moist, no oral exudates, nose normal. Eyes: PERRLA, EOMI, conjunctiva normal, no discharge. [] Neck: Normal range of motion, no tenderness, supple, no stridor. [] Cardiovascular:Heart rate regular rhythm, no murmur Lungs & Thorax: crackles bilaterally. Abdomen: Bowel sounds normal, soft, no tenderness, no masses, no pulsatile masses. [] Skin: Warm, dry, no erythema, no rash. Back: No tenderness, no CVA tenderness. [] Extremities: No tenderness, no cyanosis, no clubbing, ROM intact, no edema. Neurologic: Alert and oriented X 3, normal motor function, normal sensory function, no focal deficits noted. Psychologic: Affect normal, judgement normal, mood normal. [] Current Patient Data Vital Signs Vital Signs Date Time Temp Pulse Resp B/P (MAP) Pulse Ox O2 Delivery O2 Flow Rate FiO2 12/11/16 04:03 97 12/11/16 03:50 BiPAP/CPAP 12/11/16 03:33 97.4 113 36 226/111 (149) 6.0 97.4 Lab Values Laboratory Tests Test 12/11/16 03:33 12/11/16 03:38 12/11/16 03:41 White Blood Count 13.4 x10^3/uL (4.0-11.0) H Red Blood Count 3.28 x10^6/uL (3.50-5.40) L Hemoglobin 9.6 g/dL (12.0-15.5) L Hematocrit 30.4 % (36.0-47.0) L Mean Corpuscular Volume 93 fL (79-100) Mean Corpuscular Hemoglobin 29 pg (25-35) Mean Corpuscular Hemoglobin Concent 32 g/dL (31-37) Red Cell Distribution Width 17.2 % (11.5-14.5) H Platelet Count 306 x10^3/uL (140-400) Neutrophils (%) (Auto) 66 % (31-73) Lymphocytes (%) (Auto) 25 % (24-48) Monocytes (%) (Auto) 6 % (0-9) Eosinophils (%) (Auto) 2 % (0-3) Basophils (%) (Auto) 1 % (0-3) Neutrophils # (Auto) 8.8 x10^3uL (1.8-7.7) H Lymphocytes # (Auto) 3.4 x10^3/uL (1.0-4.8) Monocytes # (Auto) 0.8 x10^3/uL (0.0-1.1) Eosinophils # (Auto) 0.2 x10^3/uL (0.0-0.7) Basophils # (Auto) 0.2 x10^3/uL (0.0-0.2) Sodium Level 144 mmol/L (136-145) Potassium Level 3.6 mmol/L (3.5-5.1) Chloride Level 104 mmol/L (98-107) Carbon Dioxide Level 28 mmol/L (21-32) Anion Gap 12 (6-14) 16 mmol/L (6-14) H Blood Urea Nitrogen 34 mg/dL (7-20) H Creatinine 5.7 mg/dL (0.6-1.0) H Estimated GFR (Cockcroft-Gault) 7.5 Glucose Level 255 mg/dL (70-99) H 241 mg/dL (70-99) H Lactic Acid Level 2.9 mmol/L (0.4-2.0) H Calcium Level 9.1 mg/dL (8.5-10.1) Total Bilirubin 0.2 mg/dL (0.2-1.0) Direct Bilirubin 0.1 mg/dL (0.0-0.2) Aspartate Amino Transferase (AST) 19 U/L (15-37) Alanine Aminotransferase (ALT) 19 U/L (14-59) Alkaline Phosphatase 207 U/L (46-116) H Troponin I Quantitative 0.187 ng/mL (0.000-0.055) HY-Flk-D-Type Natriuretic Peptide > 40388 pg/mL (0-124) H Total Protein 7.1 g/dL (6.4-8.2) Albumin 3.1 g/dL (3.4-5.0) L Lipase 153 U/L (73-393) POC Troponin I 0.11 ng/ml (<0.08) POC Hemoglobin 10.2 g/dL (12-15) L POC Hematocrit 30 % (36-40) L POC Sodium 141 mmol/L (135-145) POC Potassium 3.6 mmol/L (3.5-5.0) POC Chloride 104 mmol/L (98-110) POC Total CO2 25 mmol/L (23-32) POC Blood Urea Nitrogen 30 mg/dL (8-26) H POC Creatinine 5.5 mg/dL (0.5-1.4) H POC Ionized Calcium (Jay) 1.10 mmol/L (1.13-1.32) L Laboratory Tests 12/11/16 03:33 Laboratory Tests 12/11/16 03:33 12/11/16 03:41 EKG EKG [] Radiology/Procedures Radiology/Procedures [] Course & Med Decision Making Course & Med Decision Making Pertinent Labs and Imaging studies reviewed. (See chart for details) [] Dragon Disclaimer Dragon Disclaimer This electronic medical record was generated, in whole or in part, using a voice recognition dictation system. Departure Departure Impression: Primary Impression: Acute respiratory failure with hypoxia Additional Impressions: Pulmonary edema, acute Volume overload Disposition: ADMITTED INPATIENT Admitting Physician: Vera Ruiz Condition: IMPROVED Referrals: ALESIA ZAVALA DOBIE MAN (PCP) Critical Care Time Critical care time was [34] minutes exclusive of procedures. Time was spent evaluating the patient, ordering the administration of ventilation of oxygen., Discussing with the admitting provider and consulting provider, reviewing EKG, reviewing chest x-ray, and documenting. Problem Qualifiers SCOTT DEJESUS MD Dec 11, 2016 03:53
[2016-12-11] MEDS ORDERED: ONDANSETRON PF 4 MG/2 ML VIAL. IV PRN (04:00)
[2016-12-11] MEDS ORDERED: FUROSEMIDE 40 MG/4 ML VIAL. IVP ONE (04:00)
[2016-12-11 04:03] LABS: ALBUMIN 3.1 g/dL (3.4-5.0); CALCIUM 9.1 mg/dL (8.5-10.1); CREATININE 5.7 mg/dL (0.6-1.0); DIRECT BILIRUBIN 0.1 mg/dL (0.0-0.2); GFR 7.5; POTASSIUM 3.6 mmol/L (3.5-5.1); TOTAL BILIRUBIN 0.2 mg/dL (0.2-1.0); TOTAL PROTEIN 7.1 g/dL (6.4-8.2)
--- NOTE | 2016-12-11 06:17 | EKG ---
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
--- NOTE | 2016-12-11 07:33 | RAD ---
Indication shortness of air. A single view of the chest was obtained. Comparison is made to an examination 11/15/2016. Heart size is unchanged. There are bilateral patchy pulmonary infiltrates suggesting congestive heart failure. There are probable small pleural effusions. A definite consolidated pneumonia is not seen. There is no pneumothorax. Defibrillating and bipolar cardiac pacing device is noted. IMPRESSION: Pulmonary infiltrates suggesting congestive heart failure. Small bilateral pleural effusions
--- NOTE | 2016-12-11 09:18 | PDOC2 ---
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 Pt was at [facility] till Thursday when she left AMA due to "It feels like I'm in nursing home". She was seen in our office on 12/03/2016 before she left AMA. Apparently when she left the senior care some of her medications did not get restarted and per her description the mexilitine, amiodarone, and metoprolol as well as lisinopril were included to the medications she did not get restarted. She had dialysis Thursday in which she told me that her BP was ok at that time. Last night she developed progressive SOA and noted that her legs were more swollen. Denies any wheezing. She was also noted with COPD from her last admission with likely JOSE ALFREDO but she does not have any inhaler coverage. Repeatedly denies restarting tobacco. Denies any palpitations or sensation that she has been shocked by her AICD and no CP. Upon admission to ED she was noted to be hypoxic and improved significant after bipap and presently on O2 via NC with SOA much better while having dialysis. Her BP was significantly uncontrolled as well which also has improved. PAST MEDICAL HISTORY Past Medical History Cardiovascular: HTN, Valve insufficiency, CAD, Carotid artery disease, cardiac arrest/Vtach, CHF, subclavian artery stenosis, moderate to severe MR Pulmonary: Respiratory failure, COPD CENTRAL NERVOUS SYSTEM: Other (No pertinent history) GI: No pertinent hx Heme/Onc: Anemia NOS Hepatobiliary: No pertinent hx Psych: Depression Musculoskeletal: low back pain, Osteoarthritis, Other (cervical radiculopathy) Rheumatologic: No pertinent hx Infectious disease: No pertinent hx ENT: Allergic Rhinitis Renal/: Chronic renal failure (ESRD) Endocrine: Diabetes (2) Dermatology: No pertinent hx PAST SURGICAL HISTORY Past Surgical History AICD, Arthroscopy (right RTC repair), Cholecystectomy, Tonsillectomy, Hysterectomy, Other (anterior cervical fusion; lumbar decompression; LAV dialysis fistula 06/2015; 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), PCI/BMS to LAD 10/24/2016 and repeat LHC 11/13/2016, FAMILY HISTORY Family History: Diabetes SOCIAL HISTORY Social History Smoke: 1 pack per day (>40 pk yr) quit a month ago ALCOHOL: none Drugs: None Lives: with Family CURRENT MEDICATIONS CURRENT MEDICATIONS Current Medications Medications (Trade) Dose Ordered Sig/Liza Route PRN Reason Start Time Stop Time Status Last Admin Dose Admin Albuterol/ Ipratropium (Duoneb) 3 ml 1X ONCE NEB 12/11/16 03:45 12/11/16 03:46 DC 12/11/16 03:40 Furosemide (Lasix) 40 mg 1X ONCE IVP 12/11/16 04:00 12/11/16 04:02 DC 12/11/16 04:01 ALLERGIES ALLERGIES: Coded Allergies: ciprofloxacin (Verified Allergy, Intermediate, Rash, 01/25/15) morphine (Verified Adverse Reaction, Severe, makes her skin crawl, 01/25/15 ) oxycodone (Verified Adverse Reaction, Severe, makes her skin crawl, ) adhesive (Verified Adverse Reaction, Intermediate, blisters, 01/25/15) "use paper tape" ROS Review of System 14 point ROS evaluated with pertinent positives noted per HPI PHYSICAL EXAM General: Alert, Oriented X3, Cooperative, No acute distress HEENT: Atraumatic, Mucous membr. moist/pink Lungs: Other (basilar crackles) Heart: Regular rate (SR), Normal S1, Normal S2, Other (4/6 systolic murmur to LLS border; S4) Extremities: No cyanosis, Other (2-3+ bilateral LE pitting edema) Skin: No breakdown, No significant lesion Neuro: Normal speech, Sensation intact Psych/Mental Status: Mood NL MUSCULOSKELETAL: Osteoarthritic changes both hands VITALS VITALS Vital Signs Date Time Temp Pulse Resp B/P (MAP) Pulse Ox O2 Delivery O2 Flow Rate FiO2 12/11/16 08:00 98.7 74 19 151/70 (97) 93 Nasal Cannula 2.0 98.7 LABS Lab: Laboratory Tests Test 12/11/16 03:33 12/11/16 03:38 12/11/16 03:41 12/11/16 07:25 White Blood Count 13.4 x10^3/uL (4.0-11.0) Red Blood Count 3.28 x10^6/uL (3.50-5.40) Hemoglobin 9.6 g/dL (12.0-15.5) Hematocrit 30.4 % (36.0-47.0) Mean Corpuscular Volume 93 fL (79-100) Mean Corpuscular Hemoglobin 29 pg (25-35) Mean Corpuscular Hemoglobin Concent 32 g/dL (31-37) Red Cell Distribution Width 17.2 % (11.5-14.5) Platelet Count 306 x10^3/uL (140-400) Neutrophils (%) (Auto) 66 % (31-73) Lymphocytes (%) (Auto) 25 % (24-48) Monocytes (%) (Auto) 6 % (0-9) Eosinophils (%) (Auto) 2 % (0-3) Basophils (%) (Auto) 1 % (0-3) Neutrophils # (Auto) 8.8 x10^3uL (1.8-7.7) Lymphocytes # (Auto) 3.4 x10^3/uL (1.0-4.8) Monocytes # (Auto) 0.8 x10^3/uL (0.0-1.1) Eosinophils # (Auto) 0.2 x10^3/uL (0.0-0.7) Basophils # (Auto) 0.2 x10^3/uL (0.0-0.2) Sodium Level 144 mmol/L (136-145) Potassium Level 3.6 mmol/L (3.5-5.1) Chloride Level 104 mmol/L (98-107) Carbon Dioxide Level 28 mmol/L (21-32) Anion Gap 12 (6-14) 16 mmol/L (6-14) Blood Urea Nitrogen 34 mg/dL (7-20) Creatinine 5.7 mg/dL (0.6-1.0) Estimated GFR (Cockcroft-Gault) 7.5 Glucose Level 255 mg/dL (70-99) 241 mg/dL (70-99) Lactic Acid Level 2.9 mmol/L (0.4-2.0) 1.8 mmol/L (0.4-2.0) Calcium Level 9.1 mg/dL (8.5-10.1) Total Bilirubin 0.2 mg/dL (0.2-1.0) Direct Bilirubin 0.1 mg/dL (0.0-0.2) Aspartate Amino Transf (AST/SGOT) 19 U/L (15-37) Alanine Aminotransferase (ALT/SGPT) 19 U/L (14-59) Alkaline Phosphatase 207 U/L (46-116) Troponin I Quantitative 0.187 ng/mL (0.000-0.055) AL-Vdz-C-Type Natriuretic Peptide > 49385 pg/mL (0-124) Total Protein 7.1 g/dL (6.4-8.2) Albumin 3.1 g/dL (3.4-5.0) Lipase 153 U/L (73-393) Bedside Troponin I 0.11 ng/ml (<0.08) Bedside Hemoglobin 10.2 g/dL (12-15) Bedside Hematocrit 30 % (36-40) Bedside Sodium 141 mmol/L (135-145) Bedside Potassium 3.6 mmol/L (3.5-5.0) Bedside Chloride 104 mmol/L (98-110) Bedside Total CO2 25 mmol/L (23-32) Bedside Blood Urea Nitrogen 30 mg/dL (8-26) Bedside Creatinine 5.5 mg/dL (0.5-1.4) Bedside Ionized Calcium (Jay) 1.10 mmol/L (1.13-1.32) ECHOCARDIOGRAM ECHOCARDIOGRAM <Conclusion> Limited echo to assess LV function. Color flow and doppler not performed. Left ventricle systolic function is low normal The Ejection Fraction is 50%. There is no evidence of significant pericardial effusion. DATE: 11/11/16 1432 HEART CATH HEART CATH CONCLUSION Successful implantation of Biotronik dual-chamber automatic implantable cardioverter defibrillator for secondary prevention of sudden cardiac in a patient with ventricular tachycardia/fibrillation and Cardec arrest. Defibrillation thresholds were measured at the time of implantation. DATE: 11/14/16 1621 Conclusion 1. Three vessel coronary artery disease with patent LAD stent. 2. No significant changes compared to prior cath 2 weeks ago. Recommendations ICD tomorrow for secondary prevention of SCD. Consider evaluation in the future for PAD based on significant disease in the RCFA on limited imaging today. DATE: 11/13/16 1309 Conclusion 1. Severe single-vessel coronary artery disease involving left anterior descending artery with moderate stenoses in other vessels 2. Successful PCI/stent placement to the left anterior descending artery Recommendations 1. Aspirin 325 mg daily for 2-4 weeks and then 81 mg daily 2. Plavix 75 mg daily for atleast four weeks and preferably one year 3. Cardiovascular risk factor modification DATE: 10/24/16 1708 ASSESSMENT/PLAN ASSESSMENT/PLAN 1. Acute on chronic systolic/diastolic CHF: Improving. Suspect mainly due to uncontrolled HTN with missed meds 2. Acute respiratory failure with underlying COPD and possible JOSE ALFREDO: improved with bipap now on NC. 3. ESRD 4. Malignant HTN: labile 5. Hx of recent cardiac arrest/Vtach: prompting AICD (biotronik). 6. CAD: S/P PCI/BMS to LAD: 10/24 with subsequent LHC on 11/13/2016 with patent stent and no other further significant lesions. Stable 7. Elevated troponin: minimal, demand mediated with culprits above, CP free. No significant changes to EKG 7. DM2/HLP 8. Mod to severe MR: last noted 10/21/2016. ISREAL would be considered at a later date for further evaluation. 9. PAD: RCFA stenosis with no claudication symptoms. w/u at a later date. 10. Noncompliance: left AMA last Thursday at [facility] and some meds did not get restarted. Recommendations 1. Bipap per pulmonary. Fluid off loading per HD 2. No changes to AICD. Device interrogation revealed no significant arrhythmias since 11/21/2016 and thoracic impedance has not shown any significant fluctuations. 3. Continue secondary prevention measures including DAPT with 81 mg ECASA and Plavix. Defer ACEi or ARB to nephrology. 4. QTc 449, continue amiodarone and mexiletine 5. Optimize BP control 6. Discussed treatment compliance Problems: CARRIE STINSON MD 12/12/16 0742: CARDIAC CONSULT ALLERGIES ALLERGIES: Coded Allergies: ciprofloxacin (Verified Allergy, Intermediate, Rash, 01/25/15) morphine (Verified Adverse Reaction, Severe, makes her skin crawl, 01/25/15 ) oxycodone (Verified Adverse Reaction, Severe, makes her skin crawl, ) adhesive (Verified Adverse Reaction, Intermediate, blisters, 01/25/15) "use paper tape" ASSESSMENT/PLAN ASSESSMENT/PLAN Patient seen and examined 12/11/16. Agree with JANITOR HELPER's assessment and plan. Acute on chronic diastolic heart failure precipitated by malignant hypertension that is most probably secondary to noncompliance. Continue fluid removal with hemodialysis per nephrology team. Blood pressure better controlled since admission. No further ICD shock therapies. CAD status clinically stable. Continue current medications including amiodarone and mexiletine. Plan for outpatient referral to EP for possible VT/VF ablation. Thank you for your consultation. Problems: PATRICE HA APRN Dec 11, 2016 09:18 CARRIE STINSON MD Dec 12, 2016 07:42
--- NOTE | 2016-12-11 09:39 | PDOC2 ---
CONSULT Date of Consult Date of Consult DATE: 12/11/16 TIME: 09:29 Reason for Consult Reason for Consult: ESRD, Hypoxia and Fl Overload Referring Physician Referring Physician: Dr valenzuela Identification/Chief Complaint Chief Complaint SOB Problems: Source Source: Chart review, Patient History of Present Illness Reason for Visit: as dictated Past Medical History Cardiovascular: HTN, Valve insufficiency, Other Pulmonary: No pertinent hx CENTRAL NERVOUS SYSTEM: Other GI: No pertinent hx Heme/Onc: Anemia NOS Hepatobiliary: No pertinent hx Psych: Depression Musculoskeletal: low back pain, Other Rheumatologic: No pertinent hx Infectious disease: No pertinent hx Renal/: Chronic renal failure Endocrine: Diabetes, Hyperparathyroidism Past Surgical History Past Surgical History: Arthroscopy, Cholecystectomy, Tonsillectomy, Hysterectomy, Other Family History Family History: Diabetes Social History Quit ALCOHOL: none Drugs: None Lives: with Family Current Problem List Problem List Problems Medical Problems: (1) Pulmonary edema, acute Status: Acute (2) Volume overload Status: Acute Current Medications Current Medications Current Medications Albuterol/ Ipratropium (Duoneb) 3 ml 1X ONCE NEB Last administered on 03:40; Start 12/11/16 at 03:45; Stop 12/11/16 at 03:46; Status DC Furosemide (Lasix) 40 mg 1X ONCE IVP Last administered on 12/11/16 04:01; Start 12/11/16 at 04:00; Stop 12/11/16 at 04:02; Status DC Ondansetron HCl (Zofran) 4 mg PRN Q8HRS PRN IV NAUSEA/VOMITING; Start 12/11/16 at 04:00; Stop 12/12/16 at 03:59 Active Scripts Active Lisinopril 40 Mg Tablet 40 Mg PO QTUTHSASU Carvedilol 3.125 Mg Tablet 3.125 Mg PO BIDWMEALS Reported Sertraline Hcl 50 Mg Tablet 50 Mg PO QHS Sensipar (Cinacalcet Hcl) 30 Mg Tablet 1 Tab PO QHS Alayna-Oneil Rx Tablet (Vit B Cmplx 3/Fa/Vit C/Biotin) 1 Each Tablet 1 Each PO DAILY Cranberry Plus Vitamin C Sftgl (Cranberry Conc/Ascorbic Acid) 1 Each Capsule 1 Each PO DAILY Coricidin Hbp Tablet (Acetaminophen/Chlorpheniramine) 1 Each Tablet 1 Each PO PRN Alprazolam 0.25 Mg Tablet 1 Tab PO DAILY PRN Plavix (Clopidogrel Bisulfate) 75 Mg Tablet 75 Mg PO DAILY Calcium Acetate 667 Mg Tablet 2 Tab PO TIDWMEALS last dose was this am next dose is wiith supper Tylenol Extra Strength (Acetaminophen) 500 Mg Tablet 500 Mg PO PRN Q12HRS PRN not given in hospital may resume when needed Metolazone 2.5 Mg Tablet 2.5 Mg PO 3X/WEEK PRN Furosemide 40 Mg Tablet 60 Mg PO PRN PRN not given in hospital may take as instructed by provider Gabapentin 300 Mg Capsule 300 Mg PO DAILY Benadryl Allergy (Diphenhydramine Hcl) 25 Mg Tablet 25 Mg PO PRN not given in the hospital Aspir 81 (Aspirin) 81 Mg Tablet.dr 81 Mg PO DAILY last dose was this am resume in am Allergies Allergies: Coded Allergies: ciprofloxacin (Verified Allergy, Intermediate, Rash, 01/25/15) morphine (Verified Adverse Reaction, Severe, makes her skin crawl, 01/25/15 ) oxycodone (Verified Adverse Reaction, Severe, makes her skin crawl, ) adhesive (Verified Adverse Reaction, Intermediate, blisters, 01/25/15) "use paper tape" ROS Review of System GEN: no Fevers no Chills EYES: no new Visual Complaints ENT: no EN Drainage no Hearing deficiets CVS: + Orthopnea ? CP RESP: + SOB + MENDOZA GI: no Nausea no Vomiting : no Dysuria no Urgency HEME: no easy bruising no Palp Ly Nodes NEURO no Focal Weakness no Sz PSYCH: no Suicidal Ideation no Depression SKIN: no Rashes ENDO: no Polyuria or Polydipsia no Hot/Cold Intolerance MU SK: occ Arthraigia no Myalgia Physical Exam Physical Exam General Appearance: Awake Alert Oriented x 3 In min resp Distress (was on BiPAP) Eyes: VIsion Unchanged Conjunctiva Normal EN: No EN Drainage Mucous Memb. moist Neck: no JVD min JVP Supple no Thyromegaly CVS: S1 S2 + Murmur No Gallop No Rub +2 Edema Resp: few bsal kirk Rales no Rhonchi no Acc. Muscle use GI: BS +ve NO Bruit Non Tender Non Distended : no CVA tenderness; no Suprapubic Tenderness SKIN: no Rashes Breast Exam deferred Mu.Sk: Adequate ROM no Muscle Atrophy Heme: Unable to palpate Obvious LAD no Splenomegaly NEURO: Good Strength and Tone Cranial Nerves II - XII grossly intact Psych: no Depressed no Active hallucination Vital Signs Vital Signs Date Time Temp Pulse Resp B/P (MAP) Pulse Ox O2 Delivery O2 Flow Rate FiO2 12/11/16 08:00 98.7 74 19 151/70 (97) 93 Nasal Cannula 2.0 98.7 Assessment & Plan ESRD.Seen onHD: [facility] well: Vitals ON HD: 156/74 65 afeb Dialysis as below F 180 NR 3.0 Hrs 4 K 2.5 Ca 140 Na 35 HC03 Qb 350 + Qd 500+ Heparin 0 Units Uf 3-4 Kgs or to dry weight as tolerated May give 25-50 gms of 25% Albumin if needed to maintain Hemodynamic stability Treatment plan reviewed and discussed with test engineer Fluid overload - Suspect due to VHDz as outlined in Cardio building operator note; Non- compliance with PO fluids may be playing arole too. Pt has been educated re same. Resp Distress POA - now off of BiPAP and on NCO2 even priro to starting HD. Anemia: Epogen as ordered. Transfuse with next HD as needed. HTN: Current BP meds reviewed. See orders for changes. Bone & Mineral: follow phos and alter binder regimen basedon Trend and PO intkae VHDz - await Cardiology plan for same. Discussed Plan of Care and prognosis etc. at length with pt Labs Labs Laboratory Tests Test 12/11/16 03:33 12/11/16 03:38 12/11/16 03:41 12/11/16 07:25 White Blood Count 13.4 x10^3/uL (4.0-11.0) Red Blood Count 3.28 x10^6/uL (3.50-5.40) Hemoglobin 9.6 g/dL (12.0-15.5) Hematocrit 30.4 % (36.0-47.0) Mean Corpuscular Volume 93 fL (79-100) Mean Corpuscular Hemoglobin 29 pg (25-35) Mean Corpuscular Hemoglobin Concent 32 g/dL (31-37) Red Cell Distribution Width 17.2 % (11.5-14.5) Platelet Count 306 x10^3/uL (140-400) Neutrophils (%) (Auto) 66 % (31-73) Lymphocytes (%) (Auto) 25 % (24-48) Monocytes (%) (Auto) 6 % (0-9) Eosinophils (%) (Auto) 2 % (0-3) Basophils (%) (Auto) 1 % (0-3) Neutrophils # (Auto) 8.8 x10^3uL (1.8-7.7) Lymphocytes # (Auto) 3.4 x10^3/uL (1.0-4.8) Monocytes # (Auto) 0.8 x10^3/uL (0.0-1.1) Eosinophils # (Auto) 0.2 x10^3/uL (0.0-0.7) Basophils # (Auto) 0.2 x10^3/uL (0.0-0.2) Sodium Level 144 mmol/L (136-145) Potassium Level 3.6 mmol/L (3.5-5.1) Chloride Level 104 mmol/L (98-107) Carbon Dioxide Level 28 mmol/L (21-32) Anion Gap 12 (6-14) 16 mmol/L (6-14) Blood Urea Nitrogen 34 mg/dL (7-20) Creatinine 5.7 mg/dL (0.6-1.0) Estimated GFR (Cockcroft-Gault) 7.5 Glucose Level 255 mg/dL (70-99) 241 mg/dL (70-99) Lactic Acid Level 2.9 mmol/L (0.4-2.0) 1.8 mmol/L (0.4-2.0) Calcium Level 9.1 mg/dL (8.5-10.1) Total Bilirubin 0.2 mg/dL (0.2-1.0) Direct Bilirubin 0.1 mg/dL (0.0-0.2) Aspartate Amino Transf (AST/SGOT) 19 U/L (15-37) Alanine Aminotransferase (ALT/SGPT) 19 U/L (14-59) Alkaline Phosphatase 207 U/L (46-116) Troponin I Quantitative 0.187 ng/mL (0.000-0.055) UW-Ual-D-Type Natriuretic Peptide > 37422 pg/mL (0-124) Total Protein 7.1 g/dL (6.4-8.2) Albumin 3.1 g/dL (3.4-5.0) Lipase 153 U/L (73-393) Bedside Troponin I 0.11 ng/ml (<0.08) Bedside Hemoglobin 10.2 g/dL (12-15) Bedside Hematocrit 30 % (36-40) Bedside Sodium 141 mmol/L (135-145) Bedside Potassium 3.6 mmol/L (3.5-5.0) Bedside Chloride 104 mmol/L (98-110) Bedside Total CO2 25 mmol/L (23-32) Bedside Blood Urea Nitrogen 30 mg/dL (8-26) Bedside Creatinine 5.5 mg/dL (0.5-1.4) Bedside Ionized Calcium (Jay) 1.10 mmol/L (1.13-1.32) Laboratory Tests Test 12/11/16 03:33 12/11/16 03:38 12/11/16 03:41 12/11/16 07:25 White Blood Count 13.4 x10^3/uL (4.0-11.0) Red Blood Count 3.28 x10^6/uL (3.50-5.40) Hemoglobin 9.6 g/dL (12.0-15.5) Hematocrit 30.4 % (36.0-47.0) Mean Corpuscular Volume 93 fL (79-100) Mean Corpuscular Hemoglobin 29 pg (25-35) Mean Corpuscular Hemoglobin Concent 32 g/dL (31-37) Red Cell Distribution Width 17.2 % (11.5-14.5) Platelet Count 306 x10^3/uL (140-400) Neutrophils (%) (Auto) 66 % (31-73) Lymphocytes (%) (Auto) 25 % (24-48) Monocytes (%) (Auto) 6 % (0-9) Eosinophils (%) (Auto) 2 % (0-3) Basophils (%) (Auto) 1 % (0-3) Neutrophils # (Auto) 8.8 x10^3uL (1.8-7.7) Lymphocytes # (Auto) 3.4 x10^3/uL (1.0-4.8) Monocytes # (Auto) 0.8 x10^3/uL (0.0-1.1) Eosinophils # (Auto) 0.2 x10^3/uL (0.0-0.7) Basophils # (Auto) 0.2 x10^3/uL (0.0-0.2) Sodium Level 144 mmol/L (136-145) Potassium Level 3.6 mmol/L (3.5-5.1) Chloride Level 104 mmol/L (98-107) Carbon Dioxide Level 28 mmol/L (21-32) Anion Gap 12 (6-14) 16 mmol/L (6-14) Blood Urea Nitrogen 34 mg/dL (7-20) Creatinine 5.7 mg/dL (0.6-1.0) Estimated GFR (Cockcroft-Gault) 7.5 Glucose Level 255 mg/dL (70-99) 241 mg/dL (70-99) Lactic Acid Level 2.9 mmol/L (0.4-2.0) 1.8 mmol/L (0.4-2.0) Calcium Level 9.1 mg/dL (8.5-10.1) Total Bilirubin 0.2 mg/dL (0.2-1.0) Direct Bilirubin 0.1 mg/dL (0.0-0.2) Aspartate Amino Transf (AST/SGOT) 19 U/L (15-37) Alanine Aminotransferase (ALT/SGPT) 19 U/L (14-59) Alkaline Phosphatase 207 U/L (46-116) Troponin I Quantitative 0.187 ng/mL (0.000-0.055) QN-Agv-I-Type Natriuretic Peptide > 00841 pg/mL (0-124) Total Protein 7.1 g/dL (6.4-8.2) Albumin 3.1 g/dL (3.4-5.0) Lipase 153 U/L (73-393) Bedside Troponin I 0.11 ng/ml (<0.08) Bedside Hemoglobin 10.2 g/dL (12-15) Bedside Hematocrit 30 % (36-40) Bedside Sodium 141 mmol/L (135-145) Bedside Potassium 3.6 mmol/L (3.5-5.0) Bedside Chloride 104 mmol/L (98-110) Bedside Total CO2 25 mmol/L (23-32) Bedside Blood Urea Nitrogen 30 mg/dL (8-26) Bedside Creatinine 5.5 mg/dL (0.5-1.4) Bedside Ionized Calcium (Jay) 1.10 mmol/L (1.13-1.32) AMENA QUARLES MD Dec 11, 2016 09:39
[2016-12-11] MEDS ORDERED: ACETAMINOPHEN 500 MG TABLET PO PRN (09:45)
[2016-12-11] MEDS ORDERED: ALPRAZolam 0.25 MG TABLET PO PRN (09:45)
--- NOTE | 2016-12-11 10:27 | CONS ---
DATE OF CONSULTATION: 12/11/2016 PRIMARY PHYSICIAN: Dr. Ruiz. REASON FOR CONSULTATION: Fluid overload. CONSULTING PHYSICIAN: Also includes Dr. Jones in the ER. HISTORY OF PRESENT ILLNESS: The patient is a pleasant 66-year-old female with known history of ESRD. She recently had an AICD placed for V-tach cardiac arrest. She is under the care of Dr. Knight at this time. She was here previously a fluid overload also. She is now fluid status optimized, however, was transferred to [facility] and left AMA. She does remain on some amount of oral Lasix. She has become more compliant with fluid removal on dialysis; however, her p.o. intake still remains somewhat of a challenge. In this setting, she presented to the ER with significant shortness of breath and chest x-ray revealed significant pulmonary edema. She was brought via EMS. She was placed on BiPAP upon presentation. I was called by Dr. Jones for urgent dialysis. She was much better after BiPAP and was felt to require ICU stay, though. Her blood pressures were 226/111 and those have been better controlled now at 151/70. For rest of the details, please see electronic records. The patient was set up for urgent dialysis and is currently on. AMENA QUARLES MD DR: SHAWN/williams JOB#: [id number] / [id number]
[2016-12-11] MEDS ORDERED: DEXTROSE 50% 25 GM / 50ML DISP.SYRIN. IV PRN ×2 (10:30)
[2016-12-11] MEDS ORDERED: hydrALAZINE 10 MG TABLET PO PRN (10:30)
[2016-12-11] MEDS ORDERED: DIALYSIS PATIENT. MC PRN (10:45)
[2016-12-11] MEDS ORDERED: 0.9 % SODIUM CHLORIDE 10 ML DISP.SYRIN. IV PRN ×2 (10:45)
[2016-12-11] MEDS ORDERED: IV NORMAL SALINE 1000ML BAG 1,000 ML IV PRN ×2 (10:45)
[2016-12-11] MEDS ORDERED: LABETALOL 20 MG/4 ML DISP.SYRIN. IVP PRN (10:45)
[2016-12-11] MEDS: METOPROLOL TART IMMED RELEASE 25 MG TABLET. PO SCH ×2 (11:00→21:39)
[2016-12-11] MEDS: INSULIN ASPART 300 UNITS/3 ML INSULN.PEN SQ SCH ×2 (12:00→17:00)
[2016-12-11] MEDS: IPRATRPIUM/ALBUTEROL 0.5/2.5MG 3 ML NEBU. NEB SCH ×2 (12:02→15:27)
--- NOTE | 2016-12-11 12:50 | CONS ---
DATE OF CONSULTATION: 12/11/2016 ATTENDING PHYSICIAN: Dr. Ruiz. REASON FOR CONSULTATION: Hypoxic respiratory failure, abnormal chest x-ray, congestive heart failure. HISTORY OF PRESENT ILLNESS: The patient is a 66-year-old female who has been a smoker for 40 years. She is now on home oxygen. The patient was at [facility] till Thursday and then she left [place]. The patient was seen in the office in November 2012 by Cardiology and the patient missed out on some of the medication, which was supposed to be started post-discharge from [facility]. They included mexiletine, amiodarone and metoprolol as well as lisinopril. The patient states that she has been having regular dialysis and has not missed any dialysis sessions and blood pressure was stable. Last night, she developed progressive shortness of breath. She also has been having progressive lower extremity edema. There was no significant cough or purulent sputum production. No wheezing, no chest pain. She did smoke for 40 years before quitting a month ago. She states she does not have any history of sleep apnea. The patient's chest x-ray was consistent with diffuse interstitial infiltrates and pleural effusion compatible with congestive heart failure. This was a worsening chest x-ray compared to October film. The patient is currently being dialyzed and 4 kilo weight has been planned to be taken off. She was initially placed on BiPAP last night and has been now able to tolerate cannula. I have been asked to see her for further evaluation. No ABGs were drawn on admission; however, she was initially placed on 6 liters of nasal cannula with 93% saturations. Now, she is, is down to 2 liters with 98% saturation. PAST MEDICAL HISTORY: Significant for history of hypertension, history of cardiac catheterization in October with 3-vessel disease and a patent LAD stent. History of cardiac arrest, history of V-tach, CHF, probably diastolic, last EF was more than 55%, history of subclavian artery stenosis and moderate to severe MR. History of osteoarthritis. History of COPD, unknown FEV1, history of end-stage renal disease, on hemodialysis. PAST SURGICAL HISTORY: Including AICD, arthroscopy, cholecystectomy, tonsillectomy, hysterectomy and many others as listed in the H and P. FAMILY HISTORY: Diabetes. SOCIAL HISTORY: Smoker 1 pack per day for 40 years, quit a month ago. No history of alcohol use. ALLERGIES: CIPRO, MORPHINE AND OXYCODONE. MEDICATIONS: All reviewed as listed in the MRAD. REVIEW OF SYSTEMS: Twelve-point systems obtained, pertinent positives discussed in history of present illness, otherwise noncontributory. All systems that were negative were reviewed as well. PHYSICAL EXAMINATION: GENERAL: She is awake, following command. No obvious respiratory distress. VITAL SIGNS: Blood pressure is now better 145 systolic, pulse ox 98% on 2 liters, afebrile. HEENT: Sclerae nonicteric. NECK: Supple. LUNGS: With diminished breath sounds at both the bases. No wheezes. CARDIOVASCULAR: Regular rate. ABDOMEN: Soft, nontender. EXTREMITIES: With bilateral 2+ pitting edema. LABORATORY DATA: Reviewed. Her sodium 144, BUN 34, creatinine 5.7. ProBNP is more than 35,000. Albumin 3.1. White cell count 13.4, hemoglobin 9.6 and platelets are 306. IMPRESSION: 1. Acute hypoxic respiratory failure due to acute congestive heart failure. 2. Abnormal chest x-ray with diffuse interstitial infiltrates and pleural effusion consistent with congestive heart failure. 3. Hypertensive urgency contributing to acute diastolic congestive heart failure. The patient also has [id number] mitral regurgitation, another risk factor for recurrent congestive heart failure. 4. Underlying chronic obstructive pulmonary disease with 40 years of tobacco use. 5. No significant history of obstructive sleep apnea. 6. Lower extremity edema secondary to congestive heart failure. RECOMMENDATIONS: 1. Continue with present dialysis with ultrafiltration. 2. Follow chest x-ray post dialysis. 3. Continue oxygen via nasal cannula and use BiPAP p.r.n. 4. Bronchodilators as scheduled. 5. Smoking cessation counseling provided and she plans to stay away from cigarettes. 6. Improve nutritional status. 7. Follow cardiology recommendations regarding the severity of mitral regurgitation and also optimization of blood pressure in future. 8. Discussed with RN and dialysis staff. We will follow along with you. Critical care time 35 minutes. SINAN JOHNSON MD DR: NASH/williams JOB#: [id number] / [id number]
[2016-12-11] MEDS ORDERED: ALBUMIN HUMAN 25% 200 ML IV ONE (13:00)
[2016-12-11] MEDS: FOLIC/VIT B COMP W-C (RENAL) TABLET. PO SCH (13:33)
[2016-12-11] MEDS: ASPIRIN ENTERIC COATED 81 MG TABLET.DR. PO SCH (13:33)
[2016-12-11] MEDS: CALCIUM ACETATE 667 MG CAPSULE PO SCH ×2 (13:34→17:32)
[2016-12-11] MEDS: GABAPENTIN 300 MG CAPSULE. PO SCH (13:34)
[2016-12-11] MEDS: CLOPIDOGREL BISULFATE 75 MG TABLET PO SCH (13:34)
[2016-12-11] MEDS ORDERED: FUROSEMIDE 40 MG TABLET. PO SCH (14:00)
--- NOTE | 2016-12-11 14:49 | HP ---
ADMIT DATE: 12/11/2016 CHIEF COMPLAINT: Shortness of breath. HISTORY OF PRESENT ILLNESS: The patient is a pleasant 66-year-old female well known to our service. We just discharged her a week or 2 ago. She has multiple comorbidities. She is actually on dialysis for end-stage renal disease among other things. Basically, she presented with shortness of breath. While in the ER, she is noted to have hypertensive emergency with pressures in the 200s. She also has severe vascular congestion on her chest x-ray and possible pneumonia. She also has COPD. Basically, there remained the patient with multifactorial issues. Please see below. We are going to be consulting several specials. PAST MEDICAL HISTORY: COPD, diabetes, hypertension and renal failure, she is on dialysis. PAST SURGICAL HISTORY: Cholecystectomy, hysterectomy, tonsillectomy, cardiac catheterization, cardiac stents, back surgery, rotator cuff surgery. ALLERGIES: CIPRO, ADHESIVE, MORPHINE and OXYCODONE. FAMILY HISTORY: Coronary artery disease. SOCIAL HISTORY: She quit smoking, no drinking or drugs. MEDICATIONS: Reviewed. REVIEW OF SYSTEMS: GENERAL: No history of weight change, weakness or fevers. SKIN: No bruising, hair changes or rashes. EYES: No blurred, double or loss of vision. NOSE AND THROAT: No history of nosebleeds, hoarseness or sore throat. HEART: No history of palpitations, chest pain or shortness of breath on exertion. LUNGS: She complains of shortness of breath. GASTROINTESTINAL: Denies changes in appetite, nausea, vomiting, diarrhea or constipation. GENITOURINARY: No history of frequency, urgency, hesitancy or nocturia. NEUROLOGIC: Denies history of numbness, tingling, tremor or weakness. PSYCHIATRIC: No history of panic, anxiety or depression. ENDOCRINE: No history of heat or cold intolerance, polyuria or polydipsia. EXTREMITIES: Denies muscle weakness, joint pain, pain on walking or stiffness. PHYSICAL EXAMINATION: VITAL SIGNS: Temperature afebrile, pulse 80, respirations 14, blood pressure has been ranging from 226/90 to down as low as 103/52. GENERAL: She is alert, cooperative, on dialysis in the ICU. HEART: Normal S1, S2. LUNGS: Slight crackles, diminished on the right. ABDOMEN: Positive bowel sounds. EXTREMITIES: 1+ edema. SKIN: No rashes. PSYCHIATRIC: She is stable. VASCULAR: Good capillary refill. ENDOCRINE: No thyromegaly. LYMPHATICS: No cervical nodes. HEMATOPOIETIC: No bruising. LABORATORY DATA: White count 13, hemoglobin 9, platelets 306. Electrolytes: Sodium 141, potassium 3.6, chloride 104, bicarbonate 25, BUN 30, creatinine 5.5, glucose 241. Troponin is high at 3.65, but I suspect that is from her renal disease. BNP is greater than 35,000. ASSESSMENT AND PLAN: Volume overload with acute on chronic systolic and diastolic heart failure, hypertensive emergency, chronic renal failure, leukocytosis, anemia, anion gap metabolic acidosis and elevated troponin. The patient has been admitted to the ICU. We will consult Cardiology, Nephrology, and Pulmonary. She is going to be dialyzed today. She is currently on dialysis. Frequent labs, continue home medicines, DuoNebs, oxygen. We will consider antibiotics if necessary. PIPELINE SYSTEMS OPERATOR PROGNOSIS: Guarded. DAVID BARLOW DO DR: CHUCK/williams JOB#: [id number] / [id number]
[2016-12-11] MEDS ORDERED: HEPARIN 25,000UTS/500ML PREMIX 500 ML IV PRN (17:45)
[2016-12-11] MEDS: HEPARIN for IV BOLUS 10,000 UNIT/10 ML VIAL. IV PRN (17:55)
[2016-12-11] MEDS ORDERED: SERTRALINE 50 MG TABLET. PO SCH (21:00)
[2016-12-11] MEDS ORDERED: ATORVASTATIN CALCIUM 10 MG TABLET. PO SCH (21:00)
[2016-12-12] MEDS: HEPARIN for IV BOLUS 10,000 UNIT/10 ML VIAL. IV PRN (01:27)
[2016-12-12 03:45] VITALS: BP 133/58
[2016-12-12] MEDS ORDERED: ALBUTEROL SULFATE 2.5 MG/3 ML NEBU. NEB PRN (07:00)
[2016-12-12 07:26] VITALS: BP 147/72
[2016-12-12 07:57] LABS: BASO # 0.1 x10^3/uL (0.0-0.2); BASO % 1 % (0-3); EOS % 3 % (0-3); HEMATOCRIT 22.3 % (36.0-47.0); HEMOGLOBIN 7.3 g/dL (12.0-15.5); LYMPH # 1.9 x10^3/uL (1.0-4.8); LYMPH % 26 % (24-48); MEAN CORPUSCULAR HEMOGLOBIN 30 pg (25-35); MEAN CORPUSCULAR HGB CONC 33 g/dL (31-37); MEAN CORPUSCULAR VOLUME 92 fL (79-100); MONO % 8 % (0-9); NEUT % 62 % (31-73); PLATELET COUNT 182 x10^3/uL (140-400); RED BLOOD COUNT 2.42 x10^6/uL (3.50-5.40); RED CELL DISTRIBUTION WIDTH 16.9 % (11.5-14.5); WHITE BLOOD COUNT 7.5 x10^3/uL (4.0-11.0)
[2016-12-12] MEDS: CALCIUM ACETATE 667 MG CAPSULE PO SCH ×2 (08:00→12:38)
[2016-12-12] MEDS: INSULIN ASPART 300 UNITS/3 ML INSULN.PEN SQ SCH ×2 (08:00→12:00)
[2016-12-12 08:11] LABS: CALCIUM 8.4 mg/dL (8.5-10.1); CREATININE 4.2 mg/dL (0.6-1.0); GFR 10.6; POTASSIUM 3.9 mmol/L (3.5-5.1)
[2016-12-12] MEDS ORDERED: ASCORBIC ACID PO SCH (09:00)
[2016-12-12] MEDS ORDERED: CRANBERRY PO SCH (09:00)
[2016-12-12] MEDS ORDERED: AMIODARONE HCL 200 MG TABLET. PO SCH (09:00)
[2016-12-12] MEDS ORDERED: ANTI-COAG MONITOR BY PHARMACY. MC PRN (09:00)
[2016-12-12] MEDS ORDERED: [UNRECOGNIZED DRUG - OTHER] PO SCH (09:00)
--- NOTE | 2016-12-12 09:17 | EKG ---
[facility] [address] [place] [address] Test Date: 2016-12-12 Test Time: 09:14:53 Pat Name: DIANE CARLSON Department: Room: 252 1 Gender: F Tele Marketing Executive: JH : 1950 Requested By: PATRICE HA Order Number: [id number] Reading MD: Measurements Intervals [place] Rate: 60 P: 0 RI: 140 QRS: 7 QRSD: 108 T: 174 QT: 430 QTc: 434 Interpretive Statements SINUS RHYTHM QRS(T) CONTOUR ABNORMALITY CONSISTENT WITH ANTEROSEPTAL INFARCT AGE UNDETERMINED ST & T ABNORMALITY, CONSIDER ANTEROLATERAL ISCHEMIA OR LEFT VENTRICULAR STRAIN T ABNORMALITY IN INFEROLATERAL LEADS ABNORMAL ECG RI6.01 Compared to ECG 11/17/2016 10:58:53 Myocardial infarct finding now present Possible ischemia now present T-wave abnormality now present Ventricular-paced complex(es) or rhythm no longer present
--- NOTE | 2016-12-12 09:30 | PDOC ---
PATRICE HA [employer] 12/12/16 0930: CARDIO Progress Notes Date and Time Date of Service 12/12/2016 Time of Evaluation 0900 Subjective Subjective: No Chest Pain, No shortness of breath, No Palpitations, No Dizziness Vitals Vitals Vital Signs Date Time Temp Pulse Resp B/P (MAP) Pulse Ox O2 Delivery O2 Flow Rate FiO2 12/12/16 08:04 Room Air 12/12/16 07:26 98.4 60 20 147/72 (97) 97 2.0 98.4 Weight Weight [ ] Input and Output Intake and Output Intake and Output 12/13/16 07:00 Intake Total 0 ml Balance 0 ml Intake Oral 0 ml Laboratory Labs Laboratory Tests Test 12/11/16 09:50 12/11/16 11:59 12/11/16 15:50 12/11/16 16:55 Troponin I Quantitative 3.656 ng/mL (0.000-0.055) 5.236 ng/mL (0.000-0.055) Glucose (Fingerstick) 101 mg/dL (70-99) 155 mg/dL (70-99) Test 12/11/16 20:43 12/12/16 00:30 12/12/16 07:29 12/12/16 07:45 Glucose (Fingerstick) 199 mg/dL (70-99) 121 mg/dL (70-99) Heparin Anti-Xa Act, Unfractionated 0.13 IU/mL (0.30-0.70) 0.27 IU/mL (0.30-0.70) White Blood Count 7.5 x10^3/uL (4.0-11.0) Red Blood Count 2.42 x10^6/uL (3.50-5.40) Hemoglobin 7.3 g/dL (12.0-15.5) Hematocrit 22.3 % (36.0-47.0) Mean Corpuscular Volume 92 fL (79-100) Mean Corpuscular Hemoglobin 30 pg (25-35) Mean Corpuscular Hemoglobin Concent 33 g/dL (31-37) Red Cell Distribution Width 16.9 % (11.5-14.5) Platelet Count 182 x10^3/uL (140-400) Neutrophils (%) (Auto) 62 % (31-73) Lymphocytes (%) (Auto) 26 % (24-48) Monocytes (%) (Auto) 8 % (0-9) Eosinophils (%) (Auto) 3 % (0-3) Basophils (%) (Auto) 1 % (0-3) Neutrophils # (Auto) 4.7 x10^3uL (1.8-7.7) Lymphocytes # (Auto) 1.9 x10^3/uL (1.0-4.8) Monocytes # (Auto) 0.6 x10^3/uL (0.0-1.1) Eosinophils # (Auto) 0.2 x10^3/uL (0.0-0.7) Basophils # (Auto) 0.1 x10^3/uL (0.0-0.2) Sodium Level 142 mmol/L (136-145) Potassium Level 3.9 mmol/L (3.5-5.1) Chloride Level 105 mmol/L (98-107) Carbon Dioxide Level 31 mmol/L (21-32) Anion Gap 6 (6-14) Blood Urea Nitrogen 21 mg/dL (7-20) Creatinine 4.2 mg/dL (0.6-1.0) Estimated GFR (Cockcroft-Gault) 10.6 Glucose Level 126 mg/dL (70-99) Calcium Level 8.4 mg/dL (8.5-10.1) Physical Exam HEENT: Neck Supple W Full Motion Chest: Symmetric LUNGS: Other (faint basilar crackles) Heart: S1S2, RRR (SR with no significant ectopeis overnight), murmurs (4-5/6 systolic apical murmur ) Abdomen: Soft N/T Extremities: No Calf Tenderness, Other (1+ RLE pitting edema and trace to LLE) Neurology: alert, oriented, follow commands Assessment Assessment 1. Acute on chronic systolic/diastolic CHF: mainly due to uncontrolled HTN. compensated 2. Acute respiratory failure with underlying COPD and possible JOSE ALFREDO: better. Pulmonary following 3. Anemia: Hgb from 9.6 to 7.3 post HD and with heparin start. Previous hospitalization with Hgb 6.4 with blood transfusion, No GI eval at that time. 4. ESRD 5. Malignant HTN: improved 6. NSTEMI: Type 2 with multiple culprits above with diffuse coronary disease. No cardiac symptoms Troponin peaked at 5 7. Hx of recent cardiac arrest/Vtach: S/P AICD (biotronik). No significant arrhythmia and device setting and function WNL. 8. CAD: S/P PCI/BMS to LAD: 10/24 with subsequent LHC on 11/13/2016 with patent stent and no other further significant lesions. 9. DM2/HLP 10. Mod to severe MR: last noted 10/21/2016. 11. PAD: RCFA stenosis with no claudication symptoms. w/u at a later date. 12. Noncompliance: left AMA last Thursday at [facility] and some meds did not get restarted. Recommendations 1. Discussed with primary blogs manager. Stop heparin. No obvious bleed. GI consult today. Repeat EKG and troponin and check isoenzymes. 2. Continue secondary prevention measures including DAPT with 81 mg ECASA and Plavix. Will await GI for any temporary changes to antiplatelets. 4. Continue amiodarone and mexiletine and metoprolol. Defer ACEi or ARB to nephrology. 5. Optimize BP control 6. Reinforced treatment compliance 7. ISREAL would be considered at a later date for further evaluation. 8. Fluid off loading per HD CARRIE STINSON MD 12/12/16 1648: CARDIO Progress Notes Assessment Assessment Patient seen and examined. Agree with MDS NURSE's assessment and plan. No episodes of VT/VF and telemetry Patient presented the chest pain-free Blood pressure better controlled Continue current medications including amiodarone and mexiletine Agree with GI consultation for anemia We will plan for outpatient ISREAL for further evaluating mitral regurgitation Plan for outpatient EP referral for possible ablation therapy PATRICE HA APRN Dec 12, 2016 09:30 CARRIE STINSON MD Dec 12, 2016 16:48
[2016-12-12] MEDS: GABAPENTIN 300 MG CAPSULE. PO SCH (09:53)
[2016-12-12] MEDS: FOLIC/VIT B COMP W-C (RENAL) TABLET. PO SCH (09:53)
[2016-12-12] MEDS: ASPIRIN ENTERIC COATED 81 MG TABLET.DR. PO SCH (09:54)
[2016-12-12] MEDS: CLOPIDOGREL BISULFATE 75 MG TABLET PO SCH (09:54)
[2016-12-12] MEDS: METOPROLOL TART IMMED RELEASE 25 MG TABLET. PO SCH (09:54)
--- NOTE | 2016-12-12 09:56 | PDOC ---
SUBJECTIVE ROS ESRD Doing much better this am CVS: no Orthopnea, no CP RESP: no SOB, ? MENDOZA (not ambulated yet) GI: no Nausea, no Vomiting : no Dysuria, no Urgency OBJECTIVE Vital Signs Vital Signs Date Time Temp Pulse Resp B/P (MAP) Pulse Ox O2 Delivery O2 Flow Rate FiO2 12/12/16 08:04 Room Air 12/12/16 07:26 98.4 60 20 147/72 (97) 97 2.0 98.4 I & 0 Intake and Output 12/13/16 07:00 Intake Total 0 ml Balance 0 ml Intake Oral 0 ml PHYSICAL EXAM Physical Exam General Appearance: Awake Alert Oriented x 3 In min resp Distress (was on BiPAP) Eyes: VIsion Unchanged Conjunctiva Normal EN: No EN Drainage Mucous Memb. moist Neck: no JVD min JVP Supple no Thyromegaly CVS: S1 S2 + Murmur No Gallop No Rub +2 Edema Resp: few bsal LL Rales no Rhonchi no Acc. Muscle use GI: BS +ve NO Bruit Non Tender Non Distended : no CVA tenderness; no Suprapubic Tenderness DIAGNOSIS/ASSESSMENT Assessment & Plan ESRD: Current fluid and E-lyte status does not necessitate emergent need for dialysis. Will re-evaluate for dialysis in the am and continue on TSTAt schedule. Fluid overload - Suspect due to VHDz as outlined in Cardio director market intelligence note; Non- compliance with PO fluids may be playing a role too. Pt has been educated re same. Resp Distress - resolved and remains on RA currently Anemia: Epogen as ordered. Transfuse with next HD as needed. Unclear etio of drop. May need eval for blood loss while on Heparin - D/w Cardiology HTN: Current BP meds reviewed. See orders for changes. restart Home regimen Bone & Mineral: follow phos and alter binder regimen basedon Trend and PO intkae VHDz - await Cardiology plan for same. OK to restart RAAS BLockade per cardiology Discussed Plan of Care and prognosis etc. at length with pt - offerred her extra HD today for Uf - she would rather go tomorrow so will increase PO lasix. Problems: COMMENT/RELEVANT DATA Meds Current Medications Medications (Trade) Dose Ordered Sig/Liza Start Time Stop Time Status Last Admin Dose Admin Acetaminophen (Tylenol) 500 mg PRN Q12HRS PRN 12/11/16 09:45 Albumin Human 200 ml @ 200 mls/hr 1X ONCE 12/11/16 13:00 12/11/16 13:59 DC 12/11/16 13:34 200 MLS/HR Albuterol Sulfate (Ventolin Neb Soln) 2.5 mg PRN QID PRN 12/12/16 07:00 Albuterol/ Ipratropium (Duoneb) 3 ml RTQID 12/11/16 12:30 12/11/16 16:21 DC 12/11/16 15:27 3 ML Alprazolam (Xanax) 0.25 mg PRN DAILY PRN 12/11/16 09:45 Amiodarone HCl (Cordarone) 200 mg DAILY 12/12/16 09:00 Aspirin (Ecotrin) 81 mg DAILY 12/11/16 11:00 12/11/16 13:33 81 MG Atorvastatin Calcium (Lipitor) 10 mg QHS 12/11/16 21:00 12/11/16 21:39 10 MG Calcium Acetate (Phoslo) 1,334 mg TIDWMEALS 12/11/16 12:00 12/11/16 17:32 1,334 MG Clopidogrel Bisulfate (Plavix) 75 mg DAILY 12/11/16 11:00 12/11/16 13:34 75 MG Dextrose (Dextrose 50%-Water Syringe) 12.5 gm PRN Q15MIN PRN 12/11/16 10:30 UNV Furosemide (Lasix) 80 mg BID92 12/11/16 14:00 12/11/16 13:34 80 MG Gabapentin (Neurontin) 300 mg DAILY 12/11/16 11:00 12/11/16 13:34 300 MG Heparin Sodium (Porcine) (Heparin Sodium) 900 unit PRN Q6HRS PRN 12/11/16 17:45 12/12/16 09:01 DC 12/12/16 01:27 900 UNIT Heparin Sodium/ Dextrose 500 ml @ 0 mls/hr CONT PRN 12/11/16 17:45 12/12/16 09:01 DC 12/11/16 17:56 0 MLS/HR Hydralazine HCl (Apresoline) 10 mg PRN Q4HRS PRN 12/11/16 10:30 Info (Anti-Coagulation Monitoring By Pharmacy) 1 each PRN DAILY PRN 12/12/16 09:00 12/12/16 08:55 1 EACH Info (PHARMACY MONITORING -- do not chart) 1 each PRN DAILY PRN 12/11/16 10:45 Insulin Aspart (NovoLOG) 0-5 UNITS TIDWMEALS 12/11/16 12:00 Labetalol HCl (Normodyne) 20 mg PRN Q2HR PRN 12/11/16 10:45 Metoprolol Tartrate (Lopressor) 25 mg BID 12/11/16 11:00 12/11/16 21:39 25 MG Mexiletine HCl (Mexitil) 200 mg Q8HRS 12/12/16 14:00 Non-Formulary Medication 1 each DAILY 12/12/16 09:00 UNV Ondansetron HCl (Zofran) 4 mg PRN Q8HRS PRN 12/11/16 04:00 12/12/16 03:59 DC Sertraline HCl (Zoloft) 50 mg QHS 12/11/16 21:00 12/11/16 21:40 50 MG Sodium Chloride 1,000 ml @ 400 mls/hr Q2H30M PRN 12/11/16 10:45 12/11/16 22:44 DC Sodium Chloride (Normal Saline Flush) 10 ml 1X PRN PRN 12/11/16 10:45 12/12/16 10:44 Vitamin B Complex/ Vitamin C (Alayna-Oneil) 1 tab DAILY 12/11/16 11:00 12/11/16 13:33 1 TAB Lab Laboratory Tests Test 12/11/16 09:50 12/11/16 11:59 12/11/16 15:50 12/11/16 16:55 Troponin I Quantitative 3.656 ng/mL (0.000-0.055) 5.236 ng/mL (0.000-0.055) Glucose (Fingerstick) 101 mg/dL (70-99) 155 mg/dL (70-99) Test 12/11/16 20:43 12/12/16 00:30 12/12/16 07:29 12/12/16 07:45 Glucose (Fingerstick) 199 mg/dL (70-99) 121 mg/dL (70-99) Heparin Anti-Xa Act, Unfractionated 0.13 IU/mL (0.30-0.70) 0.27 IU/mL (0.30-0.70) White Blood Count 7.5 x10^3/uL (4.0-11.0) Red Blood Count 2.42 x10^6/uL (3.50-5.40) Hemoglobin 7.3 g/dL (12.0-15.5) Hematocrit 22.3 % (36.0-47.0) Mean Corpuscular Volume 92 fL (79-100) Mean Corpuscular Hemoglobin 30 pg (25-35) Mean Corpuscular Hemoglobin Concent 33 g/dL (31-37) Red Cell Distribution Width 16.9 % (11.5-14.5) Platelet Count 182 x10^3/uL (140-400) Neutrophils (%) (Auto) 62 % (31-73) Lymphocytes (%) (Auto) 26 % (24-48) Monocytes (%) (Auto) 8 % (0-9) Eosinophils (%) (Auto) 3 % (0-3) Basophils (%) (Auto) 1 % (0-3) Neutrophils # (Auto) 4.7 x10^3uL (1.8-7.7) Lymphocytes # (Auto) 1.9 x10^3/uL (1.0-4.8) Monocytes # (Auto) 0.6 x10^3/uL (0.0-1.1) Eosinophils # (Auto) 0.2 x10^3/uL (0.0-0.7) Basophils # (Auto) 0.1 x10^3/uL (0.0-0.2) Sodium Level 142 mmol/L (136-145) Potassium Level 3.9 mmol/L (3.5-5.1) Chloride Level 105 mmol/L (98-107) Carbon Dioxide Level 31 mmol/L (21-32) Anion Gap 6 (6-14) Blood Urea Nitrogen 21 mg/dL (7-20) Creatinine 4.2 mg/dL (0.6-1.0) Estimated GFR (Cockcroft-Gault) 10.6 Glucose Level 126 mg/dL (70-99) Calcium Level 8.4 mg/dL (8.5-10.1) Troponin I Quantitative 3.543 ng/mL (0.000-0.055) AMENA QUARLES MD Dec 12, 2016 09:56
[2016-12-12 10:22] LABS: CKMB MASS 2.2 ng/mL (0.0-3.6)
--- NOTE | 2016-12-12 10:53 | PDOC ---
PULMONARY PROGRESS NOTES Subjective feels much better Vitals Vital Signs Date Time Temp Pulse Resp B/P (MAP) Pulse Ox O2 Delivery O2 Flow Rate FiO2 12/12/16 09:55 60 147/72 12/12/16 08:04 Room Air 12/12/16 07:26 98.4 20 97 2.0 98.4 General: Alert, No acute distress HEENT: Other Lungs: Other (decrease bs) Cardiovascular: S1, S2 Abdomen: Soft, Non-tender Neuro Exam: Alert Extremities: Other (trace edema) Labs Laboratory Tests Test 12/11/16 03:33 12/11/16 03:38 12/11/16 03:41 12/11/16 05:00 White Blood Count 13.4 x10^3/uL (4.0-11.0) Red Blood Count 3.28 x10^6/uL (3.50-5.40) Hemoglobin 9.6 g/dL (12.0-15.5) Hematocrit 30.4 % (36.0-47.0) Mean Corpuscular Volume 93 fL (79-100) Mean Corpuscular Hemoglobin 29 pg (25-35) Mean Corpuscular Hemoglobin Concent 32 g/dL (31-37) Red Cell Distribution Width 17.2 % (11.5-14.5) Platelet Count 306 x10^3/uL (140-400) Neutrophils (%) (Auto) 66 % (31-73) Lymphocytes (%) (Auto) 25 % (24-48) Monocytes (%) (Auto) 6 % (0-9) Eosinophils (%) (Auto) 2 % (0-3) Basophils (%) (Auto) 1 % (0-3) Neutrophils # (Auto) 8.8 x10^3uL (1.8-7.7) Lymphocytes # (Auto) 3.4 x10^3/uL (1.0-4.8) Monocytes # (Auto) 0.8 x10^3/uL (0.0-1.1) Eosinophils # (Auto) 0.2 x10^3/uL (0.0-0.7) Basophils # (Auto) 0.2 x10^3/uL (0.0-0.2) Sodium Level 144 mmol/L (136-145) Potassium Level 3.6 mmol/L (3.5-5.1) Chloride Level 104 mmol/L (98-107) Carbon Dioxide Level 28 mmol/L (21-32) Anion Gap 12 (6-14) 16 mmol/L (6-14) Blood Urea Nitrogen 34 mg/dL (7-20) Creatinine 5.7 mg/dL (0.6-1.0) Estimated GFR (Cockcroft-Gault) 7.5 Glucose Level 255 mg/dL (70-99) 241 mg/dL (70-99) Lactic Acid Level 2.9 mmol/L (0.4-2.0) Calcium Level 9.1 mg/dL (8.5-10.1) Total Bilirubin 0.2 mg/dL (0.2-1.0) Direct Bilirubin 0.1 mg/dL (0.0-0.2) Aspartate Amino Transf (AST/SGOT) 19 U/L (15-37) Alanine Aminotransferase (ALT/SGPT) 19 U/L (14-59) Alkaline Phosphatase 207 U/L (46-116) Troponin I Quantitative 0.187 ng/mL (0.000-0.055) FD-Tbl-S-Type Natriuretic Peptide > 29615 pg/mL (0-124) Total Protein 7.1 g/dL (6.4-8.2) Albumin 3.1 g/dL (3.4-5.0) Lipase 153 U/L (73-393) Bedside Troponin I 0.11 ng/ml (<0.08) Bedside Hemoglobin 10.2 g/dL (12-15) Bedside Hematocrit 30 % (36-40) Bedside Sodium 141 mmol/L (135-145) Bedside Potassium 3.6 mmol/L (3.5-5.0) Bedside Chloride 104 mmol/L (98-110) Bedside Total CO2 25 mmol/L (23-32) Bedside Blood Urea Nitrogen 30 mg/dL (8-26) Bedside Creatinine 5.5 mg/dL (0.5-1.4) Bedside Ionized Calcium (Jay) 1.10 mmol/L (1.13-1.32) Nasal Screen MRSA (PCR) Negative (Negative) Test 12/11/16 07:25 12/11/16 09:50 12/11/16 11:59 12/11/16 15:50 Lactic Acid Level 1.8 mmol/L (0.4-2.0) Troponin I Quantitative 3.656 ng/mL (0.000-0.055) 5.236 ng/mL (0.000-0.055) Glucose (Fingerstick) 101 mg/dL (70-99) Test 12/11/16 16:55 12/11/16 20:43 12/12/16 00:30 12/12/16 07:29 Glucose (Fingerstick) 155 mg/dL (70-99) 199 mg/dL (70-99) 121 mg/dL (70-99) Heparin Anti-Xa Act, Unfractionated 0.13 IU/mL (0.30-0.70) Test 12/12/16 07:45 White Blood Count 7.5 x10^3/uL (4.0-11.0) Red Blood Count 2.42 x10^6/uL (3.50-5.40) Hemoglobin 7.3 g/dL (12.0-15.5) Hematocrit 22.3 % (36.0-47.0) Mean Corpuscular Volume 92 fL (79-100) Mean Corpuscular Hemoglobin 30 pg (25-35) Mean Corpuscular Hemoglobin Concent 33 g/dL (31-37) Red Cell Distribution Width 16.9 % (11.5-14.5) Platelet Count 182 x10^3/uL (140-400) Neutrophils (%) (Auto) 62 % (31-73) Lymphocytes (%) (Auto) 26 % (24-48) Monocytes (%) (Auto) 8 % (0-9) Eosinophils (%) (Auto) 3 % (0-3) Basophils (%) (Auto) 1 % (0-3) Neutrophils # (Auto) 4.7 x10^3uL (1.8-7.7) Lymphocytes # (Auto) 1.9 x10^3/uL (1.0-4.8) Monocytes # (Auto) 0.6 x10^3/uL (0.0-1.1) Eosinophils # (Auto) 0.2 x10^3/uL (0.0-0.7) Basophils # (Auto) 0.1 x10^3/uL (0.0-0.2) Heparin Anti-Xa Act, Unfractionated 0.27 IU/mL (0.30-0.70) Sodium Level 142 mmol/L (136-145) Potassium Level 3.9 mmol/L (3.5-5.1) Chloride Level 105 mmol/L (98-107) Carbon Dioxide Level 31 mmol/L (21-32) Anion Gap 6 (6-14) Blood Urea Nitrogen 21 mg/dL (7-20) Creatinine 4.2 mg/dL (0.6-1.0) Estimated GFR (Cockcroft-Gault) 10.6 Glucose Level 126 mg/dL (70-99) Calcium Level 8.4 mg/dL (8.5-10.1) Creatine Kinase 82 U/L (26-192) Creatine Kinase MB (Mass) 2.2 ng/mL (0.0-3.6) Creatine Kinase MB Relative Index 2.7 % (0-4) Troponin I Quantitative 3.543 ng/mL (0.000-0.055) Laboratory Tests Test 12/11/16 11:59 12/11/16 15:50 12/11/16 16:55 12/11/16 20:43 Glucose (Fingerstick) 101 mg/dL (70-99) 155 mg/dL (70-99) 199 mg/dL (70-99) Troponin I Quantitative 5.236 ng/mL (0.000-0.055) Test 12/12/16 00:30 12/12/16 07:29 12/12/16 07:45 Heparin Anti-Xa Act, Unfractionated 0.13 IU/mL (0.30-0.70) 0.27 IU/mL (0.30-0.70) Glucose (Fingerstick) 121 mg/dL (70-99) White Blood Count 7.5 x10^3/uL (4.0-11.0) Red Blood Count 2.42 x10^6/uL (3.50-5.40) Hemoglobin 7.3 g/dL (12.0-15.5) Hematocrit 22.3 % (36.0-47.0) Mean Corpuscular Volume 92 fL (79-100) Mean Corpuscular Hemoglobin 30 pg (25-35) Mean Corpuscular Hemoglobin Concent 33 g/dL (31-37) Red Cell Distribution Width 16.9 % (11.5-14.5) Platelet Count 182 x10^3/uL (140-400) Neutrophils (%) (Auto) 62 % (31-73) Lymphocytes (%) (Auto) 26 % (24-48) Monocytes (%) (Auto) 8 % (0-9) Eosinophils (%) (Auto) 3 % (0-3) Basophils (%) (Auto) 1 % (0-3) Neutrophils # (Auto) 4.7 x10^3uL (1.8-7.7) Lymphocytes # (Auto) 1.9 x10^3/uL (1.0-4.8) Monocytes # (Auto) 0.6 x10^3/uL (0.0-1.1) Eosinophils # (Auto) 0.2 x10^3/uL (0.0-0.7) Basophils # (Auto) 0.1 x10^3/uL (0.0-0.2) Sodium Level 142 mmol/L (136-145) Potassium Level 3.9 mmol/L (3.5-5.1) Chloride Level 105 mmol/L (98-107) Carbon Dioxide Level 31 mmol/L (21-32) Anion Gap 6 (6-14) Blood Urea Nitrogen 21 mg/dL (7-20) Creatinine 4.2 mg/dL (0.6-1.0) Estimated GFR (Cockcroft-Gault) 10.6 Glucose Level 126 mg/dL (70-99) Calcium Level 8.4 mg/dL (8.5-10.1) Creatine Kinase 82 U/L (26-192) Creatine Kinase MB (Mass) 2.2 ng/mL (0.0-3.6) Creatine Kinase MB Relative Index 2.7 % (0-4) Troponin I Quantitative 3.543 ng/mL (0.000-0.055) Medications Active Scripts Medications Dose Route/Sig Max Daily Dose Days Date Category Dose Instructions Sertraline Hcl 50 Mg Tablet 50 Mg PO QHS 11/11/16 Reported Sensipar (Cinacalcet Hcl) 30 Mg Tablet 1 Tab PO QHS 11/11/16 Reported Alayna-Oneil Rx Tablet (Vit B Cmplx 3/Fa/Vit C/Biotin) 1 Each Tablet 1 Each PO DAILY 11/11/16 Reported Cranberry Plus Vitamin C Sftgl (Cranberry Conc/Ascorbic Acid) 1 Each Capsule 1 Each PO DAILY 11/11/16 Reported Coricidin Hbp Tablet (Acetaminophen/Chlorpheniramine) 1 Each Tablet 1 Each PO PRN 11/11/16 Reported Alprazolam 0.25 Mg Tablet 1 Tab PO DAILY PRN 11/11/16 Reported Lisinopril 40 Mg Tablet 40 Mg PO [id number] 10/25/16 Rx Carvedilol 3.125 Mg Tablet 3.125 Mg PO BIDWMEALS 10/25/16 Rx Plavix (Clopidogrel Bisulfate) 75 Mg Tablet 75 Mg PO DAILY 10/21/16 Reported Calcium Acetate 667 Mg Tablet 2 Tab PO TIDWMEALS 02/22/15 Reported last dose was this am next dose is wiith supper Tylenol Extra Strength (Acetaminophen) 500 Mg Tablet 500 Mg PO PRN Q12HRS PRN 02/22/15 Reported not given in hospital may resume when needed Metolazone 2.5 Mg Tablet 2.5 Mg PO 3X/WEEK PRN 10/02/14 Reported Furosemide 40 Mg Tablet 60 Mg PO PRN PRN 10/02/14 Reported not given in hospital may take as instructed by provider Gabapentin 300 Mg Capsule 300 Mg PO DAILY 10/02/14 Reported Benadryl Allergy (Diphenhydramine Hcl) 25 Mg Tablet 25 Mg PO PRN 05/31/13 Reported not given in the hospital Aspir 81 (Aspirin) 81 Mg Tablet.dr 81 Mg PO DAILY 05/31/13 Reported last dose was this am resume in am Impression . 1. Acute hypoxic respiratory failure due to acute congestive heart failure. 2. Abnormal chest x-ray with diffuse interstitial infiltrates and pleural effusion consistent with congestive heart failure. 3. Hypertensive urgency contributing to acute diastolic congestive heart failure. The patient also has [id number] mitral regurgitation, another risk factor for recurrent congestive heart failure. 4. Underlying chronic obstructive pulmonary disease with 40 years of tobacco use. 5. No significant history of obstructive sleep apnea. 6. Lower extremity edema secondary to congestive heart failure. Plan . 1. Continue with present dialysis with ultrafiltration. 2. Follow chest x-ray post dialysis. 3. Continue oxygen via nasal cannula 4. Bronchodilators as scheduled. 5. Smoking cessation counseling provided and she plans to stay away from cigarettes. 6. Improve nutritional status. 7. Follow cardiology recommendations regarding the severity of mitral regurgitation and also optimization of blood pressure in future. 8. Discussed with SINAN MCCLENDON MD Dec 12, 2016 10:53
--- NOTE | 2016-12-12 11:11 | PDOC2 ---
GI CONSULT Reason For Consult: Anemia HPI: HPI: 66 y/o female who we were asked to see for anemia. Admitted w/ CHF and elevated troponin, well-known to cardiology w/ ongoing workup. Extensive PMH as below, significant for subclavian and LAD stents placed this summer (August and October respectively). She has been on Plavix and ASA since 08/2016. Additional h/o ESRD on HD w/ anemia "for at least 6 months and maybe longer," receives weekly iron infusions at dialysis. Was transfused once last admission , Hgb seemed to average in the 8s then. Yesterday when readmitted, Hgb was 9.6 , then dropped to 7.3 after dialysis. Today, BUN is 21 w/ Cr 4.2. Iron/sat were WNL in 10/2016 w/ elevated TIBC. B12 and folate levels were also normal. Was on Heparin yesterday which has been stopped. Denies obvious bleeding including hematochezia and melena. Has no GI complaints. Did have heartburn upon starting a new medication last admission, improved w/ Pepcid at PP which she did not continue after leaving AMA; heartburn has not recurred. No dysphagia/odynophagia. No n/v or abd pain. Lifelong h/o irregular bowel habits (one stool weekly followed by a day of diarrhea, also sometimes has regularly formed stools); this is unchanged. Since started dialysis in 05/2015 has lost a significant amount of weight. Generally eats once daily at home which is not a new habit. Tolerates all meals here. No NSAID use, no previous liver or pancreatic issues. S/p cholecystectomy. No previous EGD or colonoscopy; she's not really interested in any GI workup because she feels it' s not necessary. PMH: PMH: HTN, CAD, cardiac arrest, CHF, subclavian artery stenosis, mitral regurg, COPD, anemia, depression, cervical radiculopathy, OA, allergic rhinitis, ESRD on HD, DM (last A1c reportedly 5.8), AICD, right rotator cuff repair, cholecystectomy, tonsillectomy, partial hysterectomy, cervical fusion, lumbar decompression, left AV dialysis fistula, left subclavian artery stent, LAD stent, renal biopsy FH: Family History: No pertinent hx (denies GI cancers and liver disease) Social History: Smoke: Quit ALCOHOL: rare Drugs: None ROS: GEN: Denies fevers, chills, sweats HEENT: Denies blurred vision, sore throat CV: Denies chest pain RESP: +SOA - better GI: Per HPI : Denies hematuria, dysuria ENDO: +weight loss NEURO: Denies confusion, dizziness MSK: Denies weakness, joint pain/swelling SKIN: Denies jaundice, pruritus Vitals: Vitals: Vital Signs Date Time Temp Pulse Resp B/P (MAP) Pulse Ox O2 Delivery O2 Flow Rate FiO2 12/12/16 09:55 60 147/72 12/12/16 08:04 Room Air 12/12/16 07:26 98.4 20 97 2.0 98.4 Labs: Labs: Laboratory Tests Test 12/11/16 11:59 12/11/16 15:50 12/11/16 16:55 12/11/16 20:43 Glucose (Fingerstick) 101 mg/dL (70-99) 155 mg/dL (70-99) 199 mg/dL (70-99) Troponin I Quantitative 5.236 ng/mL (0.000-0.055) Test 12/12/16 00:30 12/12/16 07:29 12/12/16 07:45 Heparin Anti-Xa Act, Unfractionated 0.13 IU/mL (0.30-0.70) 0.27 IU/mL (0.30-0.70) Glucose (Fingerstick) 121 mg/dL (70-99) White Blood Count 7.5 x10^3/uL (4.0-11.0) Red Blood Count 2.42 x10^6/uL (3.50-5.40) Hemoglobin 7.3 g/dL (12.0-15.5) Hematocrit 22.3 % (36.0-47.0) Mean Corpuscular Volume 92 fL (79-100) Mean Corpuscular Hemoglobin 30 pg (25-35) Mean Corpuscular Hemoglobin Concent 33 g/dL (31-37) Red Cell Distribution Width 16.9 % (11.5-14.5) Platelet Count 182 x10^3/uL (140-400) Neutrophils (%) (Auto) 62 % (31-73) Lymphocytes (%) (Auto) 26 % (24-48) Monocytes (%) (Auto) 8 % (0-9) Eosinophils (%) (Auto) 3 % (0-3) Basophils (%) (Auto) 1 % (0-3) Neutrophils # (Auto) 4.7 x10^3uL (1.8-7.7) Lymphocytes # (Auto) 1.9 x10^3/uL (1.0-4.8) Monocytes # (Auto) 0.6 x10^3/uL (0.0-1.1) Eosinophils # (Auto) 0.2 x10^3/uL (0.0-0.7) Basophils # (Auto) 0.1 x10^3/uL (0.0-0.2) Sodium Level 142 mmol/L (136-145) Potassium Level 3.9 mmol/L (3.5-5.1) Chloride Level 105 mmol/L (98-107) Carbon Dioxide Level 31 mmol/L (21-32) Anion Gap 6 (6-14) Blood Urea Nitrogen 21 mg/dL (7-20) Creatinine 4.2 mg/dL (0.6-1.0) Estimated GFR (Cockcroft-Gault) 10.6 Glucose Level 126 mg/dL (70-99) Calcium Level 8.4 mg/dL (8.5-10.1) Creatine Kinase 82 U/L (26-192) Creatine Kinase MB (Mass) 2.2 ng/mL (0.0-3.6) Creatine Kinase MB Relative Index 2.7 % (0-4) Troponin I Quantitative 3.543 ng/mL (0.000-0.055) Allergies: Coded Allergies: ciprofloxacin (Verified Allergy, Intermediate, Rash, 01/25/15) morphine (Verified Adverse Reaction, Severe, makes her skin crawl, 01/25/15 ) oxycodone (Verified Adverse Reaction, Severe, makes her skin crawl, ) adhesive (Verified Adverse Reaction, Intermediate, blisters, 01/25/15) "use paper tape" Medications: Current Medications Medications (Trade) Dose Ordered Sig/Liza Route PRN Reason Start Time Stop Time Status Last Admin Dose Admin Aspirin (Ecotrin) 81 mg DAILY PO 12/11/16 11:00 12/12/16 09:54 Clopidogrel Bisulfate (Plavix) 75 mg DAILY PO 12/11/16 11:00 12/12/16 09:54 Furosemide (Lasix) 80 mg BID92 PO 12/11/16 14:00 12/12/16 09:52 DC 12/11/16 13:34 Sertraline HCl (Zoloft) 50 mg QHS PO 12/11/16 21:00 12/11/16 21:40 Calcium Acetate (Phoslo) 1,334 mg TIDWMEALS PO 12/11/16 12:00 12/11/16 17:32 Gabapentin (Neurontin) 300 mg DAILY PO 12/11/16 11:00 12/12/16 09:53 Vitamin B Complex/ Vitamin C (Alayna-Noeil) 1 tab DAILY PO 12/11/16 11:00 12/12/16 09:53 Atorvastatin Calcium (Lipitor) 10 mg QHS PO 12/11/16 21:00 12/11/16 21:39 Metoprolol Tartrate (Lopressor) 25 mg BID PO 12/11/16 11:00 12/12/16 09:54 Albumin Human 200 ml @ 200 mls/hr 1X ONCE IV 12/11/16 13:00 12/11/16 13:59 DC 12/11/16 13:34 Albuterol/ Ipratropium (Duoneb) 3 ml RTQID NEB 12/11/16 12:30 12/11/16 16:21 DC 12/11/16 15:27 Heparin Sodium/ Dextrose 500 ml @ 0 mls/hr CONT PRN IV SEE I/O RECORD 12/11/16 17:45 12/12/16 09:01 DC 12/11/16 17:56 Heparin Sodium (Porcine) (Heparin Sodium) 900 unit PRN Q6HRS PRN IV FOR UFH LEVEL LESS THAN 0.2 12/11/16 17:45 12/12/16 09:01 DC 12/12/16 01:27 Info (Anti-Coagulation Monitoring By Pharmacy) 1 each PRN DAILY PRN MC SEE COMMENTS 12/12/16 09:00 12/12/16 08:55 Amiodarone HCl (Cordarone) 200 mg DAILY PO 12/12/16 09:00 12/12/16 09:55 Imaging: Imaging: CXR 12/11/16 IMPRESSION: Pulmonary infiltrates suggesting congestive heart failure. Small bilateral pleural effusions. MPI 10/23/16 Conclusion 1. Regadenoson cardioisotope stress test showed [id number] amount of inferolateral wall ischemia associated with transient ischemic dilatation. 2. Normal left ventricular systolic function with ejection fraction calculated at 53%. 3. Consider coronary angiography. Coronary Arteriogram 10/24/16 Conclusion 1. Severe single-vessel coronary artery disease involving left anterior descending artery with moderate stenoses in other vessels. 2. Successful PCI/stent placement to the left anterior descending artery. Recommendations 1. Aspirin 325 mg daily for 2-4 weeks and then 81 mg daily. 2. Plavix 75 mg daily for at least four weeks and preferably one year. 3. Cardiovascular risk factor modification. PE: GEN: NAD, sitting up in bed HEENT: Atraumatic, PERRL LUNGS: clear anteriorly HEART: +murmur, RRR ABD: NABS, S/ND/NT EXTREMITY: No edema SKIN: No rashes, no jaundice NEURO/PSYCH: A & O 3 A/P: A/P: Anemia -history of this during the past year, received iron infusions weekly during HD -denies overt bleeding -Hgb from 9.6 to 7.3 after dialysis CHF, CAD, MR, elevated troponin -stents to subclavian and LAD, on Plavix and ASA since 08/2016, holding Heparin ESRD on HD Heartburn - resolved -was on Pepcid briefly last month Irregular bowel habits -lifelong history, unchanged Weight loss -since starting HD in 05/2016 CRC screen -no previous colonoscopy -- Will review w/ Dr. Clark; however, she's not interested in GI workup at this time. ?stop Plavix w/ stent placed >4 weeks ago THOMAS DANG Dec 12, 2016 11:11
[2016-12-12 11:39] VITALS: BP 132/60
[2016-12-12] MEDS ORDERED: ATOR10TA60 PO (12:13)
[2016-12-12] MEDS ORDERED: AMIO200T2 PO (12:13)
--- NOTE | 2016-12-12 12:17 | PDOC3 ---
Discharge Summary [facility] Date of Admission: Dec 11, 2016 Discharge Date: Dec 12, 2016 Admitting Diagnosis 1. Acute on chronic systolic/diastolic CHF, with uncontrolled HTN, pulmanory edema 2. Acute respiratory failure with underlying COPD and possible JOSE ALFREDO 3. Anemia, chronic likely, cannot rule out GIB tho 4. ESRD on HD ttsat 5. Malignant HTN 6. elevated to troponin wo chest pain, 2/2 CHF, esrd LIKELY 7. Hx of recent cardiac arrest/Vtach: S/P AICD (biotronik). 8. CAD: S/P PCI/BMS to LAD: 10/24 with subsequent LHC on 11/13/2016 with patent stent 9. DM2/HLP 10. Mod to severe MR: last noted 10/21/2016. 11. PAD: RCFA stenosis with no claudication symptoms. w/u at a later date. 12. Noncompliance: Problems: Final Diagnosis CONSULTS renal gi pulm card Brief Hospital Course Ms. Glover is a 66 old F, with multiple commobidities including stystolic and diastolic CHF, AICD, ESRD on HD tts, LEFT AMA last week at , came for sob. was admitted in ICU overnight with 1 h bipap. sob better with HD. lasix added as tid pt was found high troponin, ckmb ok tho, on heparin overnight, no chest pain, recent Cath in 10/2016 with 1 bare metal stent at LAD , on asa and plavix. however, also was found Hb 7.3 from 9 after HD, no active bleeding. refused to work with GI now. pt insist to go home today. Sob much better, leg edema better. dc home, recommend go to see gi, and PCP next week to repeat CBC and may need anemia work up. dc time 35min. GENERAL: She is alert, cooperative, on dialysis in the ICU. HEART: Normal S1, S2. LUNGS: bl lungs basilar crackles ABDOMEN: Positive bowel sounds. EXTREMITIES: bl leg 1+ edema. SKIN: No rashes. PSYCHIATRIC: She is stable. VASCULAR: Good capillary refill. ENDOCRINE: No thyromegaly. LYMPHATICS: No cervical nodes. HEMATOPOIETIC: No bruising. Patient History: Patient reports no known family medical history. Problems: Disposition home CONDITION AT DISCHARGE: Improved Diet cardiac, renal Scheduled Amiodarone Hcl (Amiodarone Hcl), 200 MG PO DAILY Aspirin (Aspir 81), 81 MG PO DAILY, (Reported) Atorvastatin Calcium (Atorvastatin Calcium), 10 MG PO QHS Calcium Acetate (Calcium Acetate), 2 TAB PO TIDWMEALS, (Reported) Carvedilol (Carvedilol), 3.125 MG PO BIDWMEALS Cinacalcet Hcl (Sensipar), 1 TAB PO QHS, (Reported) Clopidogrel Bisulfate (Plavix), 75 MG PO DAILY, (Reported) Cranberry Conc/Ascorbic Acid (Cranberry Plus Vitamin C Sftgl), 1 EACH PO DAILY, (Reported) Gabapentin (Gabapentin), 300 MG PO DAILY, (Reported) Sertraline Hcl (Sertraline Hcl), 50 MG PO QHS, (Reported) Vit B Cmplx 3/Fa/Vit C/Biotin (Alayna-Oneil Rx Tablet), 1 EACH PO DAILY, (Reported) Scheduled PRN Acetaminophen (Tylenol Extra Strength), 500 MG PO PRN Q12HRS PRN for PAIN, ( Reported) Acetaminophen/Chlorpheniramine (Coricidin Hbp Tablet), 1 EACH PO for CONGESTION, (Reported) Alprazolam (Alprazolam), 1 TAB PO DAILY PRN for ANXIETY / AGITATION, (Reported) Diphenhydramine Hcl (Benadryl Allergy), 25 MG PO for ALLERGIES, (Reported) Discontinued Medications Furosemide (Furosemide), 60 MG PO PRN PRN for SEE COMMENTS, (Reported) Lisinopril (Lisinopril), 40 MG PO QTUTHSASU Metolazone (Metolazone), 2.5 MG PO 3X/WEEK PRN for edema, (Reported) Follow Up card next week SAVANNAH LOPEZ MD Dec 12, 2016 12:17
[2016-12-12] MEDS ORDERED: MEXILETINE HCL 200 MG CAPSULE PO SCH (14:00)
[2016-12-12] MEDS ORDERED: FUROSEMIDE 40 MG TABLET. PO SCH (14:00)
[2016-12-12] MEDS ORDERED: MEXI200C PO (14:16)
[2016-12-12] MEDS ORDERED: DARBEPOETIN ALFA 60 MCG/0.3 ML DISP.SYRIN. SQ SCH (21:00)
== END 2016-12-12 14:45 | disposition home or self-care (01) | DRG 280 ==
LOC: ER 03:25 → 1 WEST ICU 03:47 → 2 SOUTH 14:27
PROVIDERS: ADMIT Internal Medicine; ATTEND Internal Medicine
PROC: 5A09357 Assistance with Respiratory Ventilation, Less than 24 Consecutive Hours, Continuous Positive Airway Pressure (ICD-10-PCS; principal; 2016-12-11)
PROC: 4B02XTZ Measurement of Cardiac Defibrillator, External Approach (ICD-10-PCS; 2016-12-11)
DX: I13.2 Hypertensive heart and chronic kidney disease with heart failure and with stage 5 chronic kidney disease, or end stage renal disease (principal); J96.01 Acute respiratory failure with hypoxia; I21.4 Non-ST elevation (NSTEMI) myocardial infarction; I47.2 Ventricular tachycardia; N18.6 End stage renal disease; I50.43 Acute on chronic combined systolic (congestive) and diastolic (congestive) heart failure; I16.1 Hypertensive emergency; D64.9 Anemia, unspecified; E11.22 Type 2 diabetes mellitus with diabetic chronic kidney disease; D72.829 Elevated white blood cell count, unspecified; E78.5 Hyperlipidemia, unspecified; F17.210 Nicotine dependence, cigarettes, uncomplicated; F32.9 Major depressive disorder, single episode, unspecified; I16.0 Hypertensive urgency; I25.10 Atherosclerotic heart disease of native coronary artery without angina pectoris; J44.9 Chronic obstructive pulmonary disease, unspecified; M54.12 Radiculopathy, cervical region; Z82.49 Family history of ischemic heart disease and other diseases of the circulatory system; Z83.3 Family history of diabetes mellitus; Z90.49 Acquired absence of other specified parts of digestive tract; Z90.710 Acquired absence of both cervix and uterus; Z91.19 Patient's noncompliance with other medical treatment and regimen; Z95.5 Presence of coronary angioplasty implant and graft; Z95.810 Presence of automatic (implantable) cardiac defibrillator; Z99.2 Dependence on renal dialysis; Z99.81 Dependence on supplemental oxygen; E21.3 Hyperparathyroidism, unspecified; M19.90 Unspecified osteoarthritis, unspecified site; Z88.1 Allergy status to other antibiotic agents; Z88.5 Allergy status to narcotic agent; Z88.8 Allergy status to other drugs, medicaments and biological substances; Z91.041 Radiographic dye allergy status; E11.51 Type 2 diabetes mellitus with diabetic peripheral angiopathy without gangrene; I70.201 Unspecified atherosclerosis of native arteries of extremities, right leg
CPT/HCPCS: 36415; 71010; 80047; 80048; 80076; 82553; 82962; 83605; 83690; 83880; 84484; 85025; 85520; 87641; 93005; 94250; 94640; 94660; 94760; J1644; J1815; J1940; J7620; P9046; 99291-25

== ENCOUNTER 2016-12-14 12:44 | Inpatient (IN) | payer MEDICARE, BC ==
[2016-12-14] VITALS (8 sets, daily range): BP systolic 133–167; BP diastolic 58–77
[~2016-12-14] VITALS: Ht 162.6 cm; Wt 71.8 kg
[~2016-12-14 12:44] MED LIST changes: +AMIO200T2 PO; +ATOR10TA60 PO; +MEXI200C PO
--- NOTE | 2016-12-14 13:20 | EKG ---
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
[2016-12-14] MEDS ORDERED: AMIODARONE 150 MG/3 ML VIAL ONE (13:22)
[2016-12-14] MEDS ORDERED: AMIODARONE 900 MG in IV DEXTROSE 5% 500 ML IV PRN (13:30)
[2016-12-14] MEDS ORDERED: AMIODARONE 150 MG in IV DEXTROSE 5% 100 ML IV ONE (13:30)
[2016-12-14 13:31] LABS: BASO % 1 % (0-3); EOS % 4 % (0-3); HEMATOCRIT 23.1 % (36.0-47.0); HEMOGLOBIN 7.3 g/dL (12.0-15.5); LYMPH # 1.4 x10^3/uL (1.0-4.8); LYMPH % 24 % (24-48); MEAN CORPUSCULAR HEMOGLOBIN 30 pg (25-35); MEAN CORPUSCULAR HGB CONC 32 g/dL (31-37); MEAN CORPUSCULAR VOLUME 95 fL (79-100); MONO % 8 % (0-9); NEUT % 64 % (31-73); PLATELET COUNT 166 x10^3/uL (140-400); RED BLOOD COUNT 2.43 x10^6/uL (3.50-5.40); RED CELL DISTRIBUTION WIDTH 17.5 % (11.5-14.5); WHITE BLOOD COUNT 5.9 x10^3/uL (4.0-11.0)
[2016-12-14 13:36] LABS: ANION GAP 12 (6-14); BLOOD UREA NITROGEN 24 mg/dL (7-20); CARBON DIOXIDE 27 mmol/L (21-32); CHLORIDE 104 mmol/L (98-107); CREATININE 4.1 mg/dL (0.6-1.0); GFR 10.9; GLUCOSE 225 mg/dL (70-99); POTASSIUM 4.2 mmol/L (3.5-5.1); SODIUM 143 mmol/L (136-145)
[2016-12-14 13:42] LABS: ALBUMIN 2.6 g/dL (3.4-5.0); ALK PHOS 126 U/L (46-116); ALT (SGPT) 16 U/L (14-59); AST (SGOT) 17 U/L (15-37); DIRECT BILIRUBIN < 0.1 mg/dL (0.0-0.2); MAGNESIUM 1.8 mg/dL (1.8-2.4); TOTAL BILIRUBIN 0.2 mg/dL (0.2-1.0); TOTAL PROTEIN 5.4 g/dL (6.4-8.2)
[2016-12-14 13:50] LABS: CKMB MASS 1.3 ng/mL (0.0-3.6)
--- NOTE | 2016-12-14 14:31 | PHYS DOC ---
Past Medical History Past Medical History: Anemia, Diabetes-Type II, Hypertension, Renal Failure Additional Past Medical Histor: dialysis Past Surgical History: Cholecystectomy, Hysterectomy, Tonsillectomy, Other Additional Past Surgical Histo: cardiac cath 10/2016-w/stent placement, back surgery,rotator cuff Alcohol Use: None Drug Use: None Adult General Chief Complaint Chief Complaint: AICD FIRED OR SHOCKED HPI HPI Patient is a 66 year old female brought from home by EMS because her implanted defibrillator fired. Patient states she got her defibrillator about a month or 2 ago after she coded. It has not fired until today. She was having some episodes of dizzy/lightheadedness prior to the defibrillator firing. Patient denies chest pain. Patient had not been taking her amiodarone as prescribed, she had been out of it for a while, but then took a dose last night and another dose this morning. She was hospitalized just about 3 days ago for fluid overload, she had dialysis and was discharged. Patient is a dialysis patient. 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 Review of Systems Review of Systems Constitutional: Denies fever or chills [] Eyes: Denies change in visual acuity, redness, or eye pain [] HENT: Denies nasal congestion or sore throat [] Respiratory: Denies cough or shortness of breath [] Cardiovascular: Denies chest pain GI: Denies abdominal pain, nausea, vomiting : Denies dysuria or hematuria [] Musculoskeletal: Denies back pain or joint pain [] Integument: Denies rash or skin lesions [] Neurologic: Denies headache, focal weakness or sensory changes [] Current Medications Current Medications Current Medications Medications (Trade) Dose Ordered Sig/Liza Start Time Stop Time Status Last Admin Dose Admin Amiodarone HCl (Cordarone) 150 mg STK-MED ONCE 12/14/16 13:22 12/14/16 13:23 DC Amiodarone HCl 150 mg/Dextrose 103 ml @ 618 mls/hr 1X ONCE 12/14/16 13:30 12/14/16 13:39 DC 12/14/16 13:35 618 MLS/HR Amiodarone HCl 900 mg/Dextrose 518 ml @ 0 mls/hr CONT PRN 12/14/16 13:30 12/14/16 13:52 DC 12/14/16 13:50 16.5 MLS/HR Allergies Allergies Allergies Coded Allergies Type Severity Reaction Last Updated Verified ciprofloxacin Allergy Intermediate Rash 01/25/15 Yes morphine Adverse Reaction Severe makes her skin crawl 01/25/15 Yes oxycodone Adverse Reaction Severe makes her skin crawl 01/25/15 Yes adhesive Adverse Reaction Intermediate blisters 01/25/15 Yes Physical Exam Physical Exam Constitutional: Well developed, well nourished, no acute distress, non-toxic appearance. Alert, mentating normally, warm and dry. HENT: Normocephalic, atraumatic, bilateral external ears normal, nose normal. [] Eyes: conjunctiva normal, no discharge. [] Neck: Normal range of motion, no stridor. [] Cardiovascular:Heart rate regular rhythm, no murmur [] Lungs & Thorax: Bilateral breath sounds clear to auscultation [] Skin: Warm, dry, no erythema, no rash. [] Extremities: No tenderness, no cyanosis, no clubbing, ROM intact, no edema. [] Neurologic: Alert and oriented X 3, normal motor function, normal sensory function, no focal deficits noted. [] Current Patient Data Vital Signs Vital Signs Date Time Temp Pulse Resp B/P (MAP) Pulse Ox O2 Delivery O2 Flow Rate FiO2 12/14/16 14:00 60 17 149/65 (93) 97 Room Air 12/14/16 12:49 98.5 98.5 Lab Values Laboratory Tests Test 12/14/16 12:58 White Blood Count 5.9 x10^3/uL (4.0-11.0) Red Blood Count 2.43 x10^6/uL (3.50-5.40) L Hemoglobin 7.3 g/dL (12.0-15.5) L Hematocrit 23.1 % (36.0-47.0) L Mean Corpuscular Volume 95 fL (79-100) Mean Corpuscular Hemoglobin 30 pg (25-35) Mean Corpuscular Hemoglobin Concent 32 g/dL (31-37) Red Cell Distribution Width 17.5 % (11.5-14.5) H Platelet Count 166 x10^3/uL (140-400) Neutrophils (%) (Auto) 64 % (31-73) Lymphocytes (%) (Auto) 24 % (24-48) Monocytes (%) (Auto) 8 % (0-9) Eosinophils (%) (Auto) 4 % (0-3) H Basophils (%) (Auto) 1 % (0-3) Neutrophils # (Auto) 3.8 x10^3uL (1.8-7.7) Lymphocytes # (Auto) 1.4 x10^3/uL (1.0-4.8) Monocytes # (Auto) 0.5 x10^3/uL (0.0-1.1) Eosinophils # (Auto) 0.2 x10^3/uL (0.0-0.7) Basophils # (Auto) 0.0 x10^3/uL (0.0-0.2) Sodium Level 143 mmol/L (136-145) Potassium Level 4.2 mmol/L (3.5-5.1) Chloride Level 104 mmol/L (98-107) Carbon Dioxide Level 27 mmol/L (21-32) Anion Gap 12 (6-14) Blood Urea Nitrogen 24 mg/dL (7-20) H Creatinine 4.1 mg/dL (0.6-1.0) H Estimated GFR (Cockcroft-Gault) 10.9 Glucose Level 225 mg/dL (70-99) H Calcium Level 8.0 mg/dL (8.5-10.1) L Magnesium Level 1.8 mg/dL (1.8-2.4) Total Bilirubin 0.2 mg/dL (0.2-1.0) Direct Bilirubin < 0.1 mg/dL (0.0-0.2) Aspartate Amino Transferase (AST) 17 U/L (15-37) Alanine Aminotransferase (ALT) 16 U/L (14-59) Alkaline Phosphatase 126 U/L (46-116) H Creatine Kinase 82 U/L (26-192) Creatine Kinase MB (Mass) 1.3 ng/mL (0.0-3.6) Creatine Kinase MB Relative Index 1.6 % (0-4) Troponin I Quantitative 0.864 ng/mL (0.000-0.055) Total Protein 5.4 g/dL (6.4-8.2) L Albumin 2.6 g/dL (3.4-5.0) L Laboratory Tests 12/14/16 12:58 Laboratory Tests 12/14/16 12:58 EKG EKG 12-lead EKG read by me. Sinus rhythm. Heart rate 60. Widened QRS. There are minimal ST and T wave changes laterally that may be ischemic. No ST elevation. No STEMI. 1248[] Radiology/Procedures Radiology/Procedures [] Course & Med Decision Making Course & Med Decision Making Pertinent Labs and Imaging studies reviewed. (See chart for details) 66-year-old female with a history of V. tach and coding, got a defibrillator recently, presents after her defibrillator fired. The patient was placed on a restaurant host and was noted to have short and medium length runs of V. tach which were symptomatic but the patient remained alert and without chest pain. Her V. tach episodes were self-limited and she did not have her defibrillator fire. After I obtained the history that she recently has not been taking her amiodarone as prescribed, I ordered an amiodarone bolus and infusion. Patient remained stable in the emergency department but did continue to have episodes of nonsustained V. tach. She reported one time that she felt her defibrillator fire, however, looking at the rhythm strip we did not see any V. tach prior to that time frame. No ED staff were in the room when that happened. I discussed the case with Dr. Knight who is familiar with the patient. The defibrillator interrogation person came in and interrogated the device and discussed the results with him as well. He agreed with the amiodarone bolus and infusion and also asked me to make sure that the patient is ordered to have her mexiletine, which I did. I discussed the case with Dr. Mcmahon, [facility] medicine. She will admit the patient. I wrote bridge orders. We will send the patient to the ICU because she is on an amiodarone drip and having recurrent episodes of nonsustained V. tach. Critical care time 60 minutes including bedside evaluation and multiple re- evaluations, interpretation of rhythm strips and multiple episodes of V. tach, writing orders for amiodarone bolus and infusion, discussion with admitting doctor and spike machine heater, documentation. [] Dragon Disclaimer Dragon Disclaimer This electronic medical record was generated, in whole or in part, using a voice recognition dictation system. Departure Departure Impression: Primary Impression: Ventricular tachycardia Disposition: 09 ADMITTED INPATIENT Admitting Physician: Daksha Mcmahon Condition: GUARDED Referrals: ALESIA ZAVALA SEO ASSISTANT (PCP) MICHAEL CUNNINGHAM MD Dec 14, 2016 14:31
[2016-12-14] MEDS ORDERED: MEXILETINE HCL 200 MG CAPSULE PO SCH (15:00)
[2016-12-14] MEDS ORDERED: hydrALAZINE 20 MG/ML VIAL. IVP PRN (16:00)
[2016-12-14] MEDS ORDERED: DOCUSATE SODIUM 100 MG CAPSULE. PO PRN (16:00)
[2016-12-14] MEDS ORDERED: ACETAMINOPHEN 325 MG TABLET. PO PRN (16:00)
[2016-12-14] MEDS ORDERED: ALPRAZolam 0.25 MG TABLET PO PRN (16:00)
[2016-12-14] MEDS ORDERED: DEXTROSE 50% 25 GM / 50ML DISP.SYRIN. IV PRN (16:15)
[2016-12-14] MEDS: HEPARIN PF for SUB-Q USE 5,000 UNIT/0.5 ML VIAL. SQ SCH ×2 (16:15→20:48)
--- NOTE | 2016-12-14 16:15 | PDOC1 ---
History and Physical Date of Admission Date of Admission 12/14/16 Identification/Chief Complaint Chief Complaint ICD spikes, lightheaded Problems: Source Source: Chart review, Patient History of Present Illness History of Present Illness Ms. Glover is a 66 old F, with multiple commobidities including stystolic and diastolic CHF, AICD, ESRD on HD tts, LEFT AMA last week at , was just dced here 2 days ago for sob on 1h bipap only, came to ER toDAY for ICD spikes. during last admission, pt was added lasix tid, recent Cath in 10/2016 with 1 bare metal stent at LAD , on asa and plavix, was found Hb 7.3 from 9 after HD, no active bleeding. refused to work with GI now. She is supposed to take amiodarone bid, mexiletine tid since Thursday dced home, didnot take them till Sat night. She felt some lightheaded since Sat night, no chest pain. Today, she felt ICD spikes, which usually caused headache feels like"someone hit the back of the head" , no chest pain, no sob, 2 times for her today about 11 am and 12pm and then came to ER. in ER, ICD/PPM integregated and was told find but had 3 times shock 1am, 11am and noon time. When i was talking to her in at about 4pm, she felt it again, and i noticed tele has 4-5 VT, then back to sinus at 60s HR. otherwise feels ok, no fever, chills, N/V. got HD on Sat. Past Medical History Cardiovascular: HTN, Valve insufficiency, Other Pulmonary: No pertinent hx CENTRAL NERVOUS SYSTEM: Other GI: No pertinent hx Heme/Onc: Anemia NOS Hepatobiliary: No pertinent hx Psych: Depression Rheumatologic: No pertinent hx Infectious disease: No pertinent hx Renal/: Chronic renal failure Endocrine: Diabetes, Hyperparathyroidism Past Surgical History Past Surgical History: Arthroscopy, Cholecystectomy, Tonsillectomy, Hysterectomy, Other Family History Family History: Diabetes Social History Smoke: <1 pack per day ALCOHOL: rare Drugs: None Current Problem List Problem List Problems Medical Problems: (1) Ventricular tachycardia Status: Acute Current Medications Current Medications Current Medications Medications (Trade) Dose Ordered Sig/Liza Start Time Stop Time Status Last Admin Dose Admin Amiodarone HCl (Cordarone) 150 mg STK-MED ONCE 12/14/16 13:22 12/14/16 13:23 DC Amiodarone HCl 150 mg/Dextrose 103 ml @ 618 mls/hr 1X ONCE 12/14/16 13:30 12/14/16 13:39 DC 12/14/16 13:35 618 MLS/HR Amiodarone HCl 900 mg/Dextrose 518 ml @ 0 mls/hr CONT PRN 12/14/16 13:30 12/14/16 13:52 DC 12/14/16 13:50 16.5 MLS/HR Mexiletine HCl (Mexitil) 200 mg Q8HRS 12/14/16 15:00 Allergies Allergies Allergies Coded Allergies Type Severity Reaction Last Updated Verified ciprofloxacin Allergy Intermediate Rash 01/25/15 Yes morphine Adverse Reaction Severe makes her skin crawl 01/25/15 Yes oxycodone Adverse Reaction Severe makes her skin crawl 01/25/15 Yes adhesive Adverse Reaction Intermediate blisters 01/25/15 Yes ROS Review of System CONSTITUTIONAL: No fever or chills EYES: No recent changes SKIN: No rash or itching CARDIOVASCULAR: No chest pain, syncope, palpitations, or edema RESPIRATORY: No SOB or cough GASTROINTESTINAL: No nausea, vomiting or abdominal pain NEUROLOGICAL: No headaches or weakness ENDOCRINE: No cold or heat intolerance GENITOURINARY: No urgency or frequency of urination MUSCULOSKELETAL: No back pain or joint pain LYMPHATICS: No enlarged lymph nodes PSYCHIATRIC: No anxiety or depression Physical Exam Physical Exam GEN.: No apparent distress. Alert and oriented. HEENT: Head is normocephalic, atraumatic NECK: Supple. LUNGS: Clear to auscultation. HEART: RRR, S1, S2 present. Peripheral pulses intact ABDOMEN: Soft, nontender. Positive bowel sounds. EXTREMITIES: Without any cyanosis. bl leg 1+edema NEUROLOGIC: Normal speech, normal tone PSYCHIATRIC: Normal affect, normal mood. SKIN: No ulcerations Vitals Vitals Vital Signs Date Time Temp Pulse Resp B/P (MAP) Pulse Ox O2 Delivery O2 Flow Rate FiO2 12/14/16 13:35 63 146/66 12/14/16 12:49 98.5 18 99 Room Air 98.5 Labs Labs Laboratory Tests Test 12/14/16 12:58 White Blood Count 5.9 x10^3/uL (4.0-11.0) Red Blood Count 2.43 x10^6/uL (3.50-5.40) Hemoglobin 7.3 g/dL (12.0-15.5) Hematocrit 23.1 % (36.0-47.0) Mean Corpuscular Volume 95 fL (79-100) Mean Corpuscular Hemoglobin 30 pg (25-35) Mean Corpuscular Hemoglobin Concent 32 g/dL (31-37) Red Cell Distribution Width 17.5 % (11.5-14.5) Platelet Count 166 x10^3/uL (140-400) Neutrophils (%) (Auto) 64 % (31-73) Lymphocytes (%) (Auto) 24 % (24-48) Monocytes (%) (Auto) 8 % (0-9) Eosinophils (%) (Auto) 4 % (0-3) Basophils (%) (Auto) 1 % (0-3) Neutrophils # (Auto) 3.8 x10^3uL (1.8-7.7) Lymphocytes # (Auto) 1.4 x10^3/uL (1.0-4.8) Monocytes # (Auto) 0.5 x10^3/uL (0.0-1.1) Eosinophils # (Auto) 0.2 x10^3/uL (0.0-0.7) Basophils # (Auto) 0.0 x10^3/uL (0.0-0.2) Sodium Level 143 mmol/L (136-145) Potassium Level 4.2 mmol/L (3.5-5.1) Chloride Level 104 mmol/L (98-107) Carbon Dioxide Level 27 mmol/L (21-32) Anion Gap 12 (6-14) Blood Urea Nitrogen 24 mg/dL (7-20) Creatinine 4.1 mg/dL (0.6-1.0) Estimated GFR (Cockcroft-Gault) 10.9 Glucose Level 225 mg/dL (70-99) Calcium Level 8.0 mg/dL (8.5-10.1) Magnesium Level 1.8 mg/dL (1.8-2.4) Total Bilirubin 0.2 mg/dL (0.2-1.0) Direct Bilirubin < 0.1 mg/dL (0.0-0.2) Aspartate Amino Transf (AST/SGOT) 17 U/L (15-37) Alanine Aminotransferase (ALT/SGPT) 16 U/L (14-59) Alkaline Phosphatase 126 U/L (46-116) Creatine Kinase 82 U/L (26-192) Creatine Kinase MB (Mass) 1.3 ng/mL (0.0-3.6) Creatine Kinase MB Relative Index 1.6 % (0-4) Troponin I Quantitative 0.864 ng/mL (0.000-0.055) Total Protein 5.4 g/dL (6.4-8.2) Albumin 2.6 g/dL (3.4-5.0) Laboratory Tests Test 12/14/16 12:58 White Blood Count 5.9 x10^3/uL (4.0-11.0) Red Blood Count 2.43 x10^6/uL (3.50-5.40) Hemoglobin 7.3 g/dL (12.0-15.5) Hematocrit 23.1 % (36.0-47.0) Mean Corpuscular Volume 95 fL (79-100) Mean Corpuscular Hemoglobin 30 pg (25-35) Mean Corpuscular Hemoglobin Concent 32 g/dL (31-37) Red Cell Distribution Width 17.5 % (11.5-14.5) Platelet Count 166 x10^3/uL (140-400) Neutrophils (%) (Auto) 64 % (31-73) Lymphocytes (%) (Auto) 24 % (24-48) Monocytes (%) (Auto) 8 % (0-9) Eosinophils (%) (Auto) 4 % (0-3) Basophils (%) (Auto) 1 % (0-3) Neutrophils # (Auto) 3.8 x10^3uL (1.8-7.7) Lymphocytes # (Auto) 1.4 x10^3/uL (1.0-4.8) Monocytes # (Auto) 0.5 x10^3/uL (0.0-1.1) Eosinophils # (Auto) 0.2 x10^3/uL (0.0-0.7) Basophils # (Auto) 0.0 x10^3/uL (0.0-0.2) Sodium Level 143 mmol/L (136-145) Potassium Level 4.2 mmol/L (3.5-5.1) Chloride Level 104 mmol/L (98-107) Carbon Dioxide Level 27 mmol/L (21-32) Anion Gap 12 (6-14) Blood Urea Nitrogen 24 mg/dL (7-20) Creatinine 4.1 mg/dL (0.6-1.0) Estimated GFR (Cockcroft-Gault) 10.9 Glucose Level 225 mg/dL (70-99) Calcium Level 8.0 mg/dL (8.5-10.1) Magnesium Level 1.8 mg/dL (1.8-2.4) Total Bilirubin 0.2 mg/dL (0.2-1.0) Direct Bilirubin < 0.1 mg/dL (0.0-0.2) Aspartate Amino Transf (AST/SGOT) 17 U/L (15-37) Alanine Aminotransferase (ALT/SGPT) 16 U/L (14-59) Alkaline Phosphatase 126 U/L (46-116) Creatine Kinase 82 U/L (26-192) Creatine Kinase MB (Mass) 1.3 ng/mL (0.0-3.6) Creatine Kinase MB Relative Index 1.6 % (0-4) Troponin I Quantitative 0.864 ng/mL (0.000-0.055) Total Protein 5.4 g/dL (6.4-8.2) Albumin 2.6 g/dL (3.4-5.0) VTE Prophylaxis Ordered VTE Prophylaxis Devices: Yes VTE Pharmacological Prophylaxi: Yes Assessment/Plan Assessment/Plan ICD spikes with VT, non sustained chronic systolic/diastolic CHF, with uncontrolled HTN, pulmanory edema recent Acute respiratory failure with underlying COPD and possible JOSE ALFREDO normacytic Anemia, chronic likely, ESRD, CHF, cannot rule out GIB tho ESRD on HD ttsat HTN Hx of recent cardiac arrest/Vtach: S/P AICD/PPM (biotronik). h/o CAD: S/P PCI/BMS to LAD: 10/24 with subsequent LHC on 11/13/2016 with patent stent DM2/HLP Mod to severe MR: last noted 10/21/2016. PAD: RCFA stenosis with no claudication symptoms. w/u at a later date. Noncompliance, signed AMA from PP recently elevated troponin with ESRD mild malnutrition, low albumin with ESRD plan: card consult on amiodarone drip in ER, hold po cont mexitil tid cont other home meds cont HD, renal consult ICU care check hba1c, SSI anemia work up, pt not want GI at this time point labs daily dvt ppx SAVANNAH LOPEZ MD Dec 14, 2016 16:15
[2016-12-14] MEDS: MEXILETINE HCL 200 MG CAPSULE PO SCH ×2 (16:30→20:48)
[2016-12-14] MEDS ORDERED: MAGNESIUM SULFATE 2GM 50 ML IV ONE (17:00)
[2016-12-14] MEDS: CARVEDILOL 3.125 MG TABLET. PO SCH (17:10)
[2016-12-14] MEDS: CALCIUM ACETATE 667 MG CAPSULE PO SCH (17:11)
[2016-12-14] MEDS: INSULIN ASPART 300 UNITS/3 ML INSULN.PEN SQ SCH (17:48)
[2016-12-14] MEDS: ATORVASTATIN CALCIUM 10 MG TABLET. PO SCH (20:47)
[2016-12-14] MEDS: CINACALCET HCL 30 MG TABLET PO SCH (20:48)
[2016-12-14] MEDS: SERTRALINE 50 MG TABLET. PO SCH (20:48)
[2016-12-14] MEDS: GABAPENTIN 300 MG CAPSULE. PO SCH (21:00)
[2016-12-14 23:03] LABS: HEMATOCRIT 21.9 % (36.0-47.0); HEMOGLOBIN 7.1 g/dL (12.0-15.5); RED BLOOD COUNT 2.38 x10^6/uL (3.50-5.40); RED CELL DISTRIBUTION WIDTH 16.6 % (11.5-14.5); WHITE BLOOD COUNT 6.9 x10^3/uL (4.0-11.0)
[2016-12-14 23:17] LABS: CALCIUM 8.4 mg/dL (8.5-10.1); CREATININE 4.2 mg/dL (0.6-1.0); GFR 10.6; POTASSIUM 3.7 mmol/L (3.5-5.1)
[2016-12-14 23:23] LABS: ALBUMIN 2.5 g/dL (3.4-5.0); ALBUMIN/GLOBULIN RATIO 0.8 (1.0-1.7); MAGNESIUM 2.2 mg/dL (1.8-2.4); TOTAL BILIRUBIN 0.2 mg/dL (0.2-1.0); TOTAL PROTEIN 5.6 g/dL (6.4-8.2)
[2016-12-15] VITALS (30 sets, daily range): BP systolic 108–169; BP diastolic 49–81
[2016-12-15] MEDS: METOPROLOL TARTRATE 5 MG/5 ML VIAL. IVP SCH ×4 (00:17→18:40)
[2016-12-15] MEDS: ONDANSETRON PF 4 MG/2 ML VIAL. IV PRN ×3 (03:49→15:02)
[2016-12-15] MEDS ORDERED: LIDOCAINE 2GM/500ML PREMIX 500 ML IV PRN (04:15)
[2016-12-15] MEDS ORDERED: fentaNYL PF VIAL 100 MCG/2 ML VIAL IV PRN ×2 (04:30→04:45)
[2016-12-15 04:31] LABS: BASO # 0.1 x10^3/uL (0.0-0.2); BASO % 2 % (0-3); EOS % 4 % (0-3); HEMOGLOBIN 7.4 g/dL (12.0-15.5); LYMPH % 27 % (24-48); MEAN CORPUSCULAR HEMOGLOBIN 30 pg (25-35); MEAN CORPUSCULAR HGB CONC 32 g/dL (31-37); MEAN CORPUSCULAR VOLUME 93 fL (79-100); MONO % 8 % (0-9); NEUT % 59 % (31-73); PLATELET COUNT 198 x10^3/uL (140-400); RED BLOOD COUNT 2.48 x10^6/uL (3.50-5.40); RED CELL DISTRIBUTION WIDTH 16.9 % (11.5-14.5); WHITE BLOOD COUNT 7.3 x10^3/uL (4.0-11.0)
[2016-12-15 04:49] LABS: CALCIUM 8.2 mg/dL (8.5-10.1); CREATININE 4.5 mg/dL (0.6-1.0); GFR 9.8; POTASSIUM 4.1 mmol/L (3.5-5.1)
[2016-12-15 04:51] LABS: % SAT IRON 21 % (15-34); IRON,SERUM 55 ug/dL (50-170)
[2016-12-15] MEDS: MEXILETINE HCL 200 MG CAPSULE PO SCH ×3 (05:12→21:51)
[2016-12-15] MEDS: HEPARIN PF for SUB-Q USE 5,000 UNIT/0.5 ML VIAL. SQ SCH ×3 (05:13→22:00)
[2016-12-15] MEDS ORDERED: HYDROcodone/APAP 10/325 1 TAB TABLET PO PRN (05:30)
--- NOTE | 2016-12-15 07:44 | PDOC ---
PROGRESS NOTES Chief Complaint Chief Complaint ICD spikes with VT, non sustained chronic severe diastolic CHF, EF 55%, with uncontrolled HTN, pulmanory edema recent Acute respiratory failure with underlying COPD and possible JOSE ALFREDO normacytic Anemia, chronic likely, ESRD, CHF, cannot rule out GIB tho ESRD on HD ttsat HTN Hx of recent cardiac arrest/Vtach: S/P AICD/PPM (biotronik). h/o CAD: S/P PCI/BMS to LAD: 10/24 with subsequent LHC on 11/13/2016 with patent stent DM2/HLP Mod to severe MR: last noted 10/21/2016. PAD: RCFA stenosis with no claudication symptoms. w/u at a later date. Noncompliance, signed AMA from PP recently elevated troponin with ESRD mild malnutrition, low albumin with ESRD severe MR plan: card consulted on amiodarone drip in ER, hold po. lidocaine drip added cont mexitil tid cont other home meds cont HD, renal consult ICU care check hba1c, SSI anemia work up, pt not want GI at this time point Hb low at 7s , stable , no active bleeding, will get 1u PRBC transfusion today labs daily dvt ppx allergy to morphine, but ok to take lortab History of Present Illness History of Present Illness ROS: no fever, chills, sob or chest pain multiple times of VT last night, sustained, lidocaine drip added with lightheaded and nausea Vitals Vitals Vital Signs Date Time Temp Pulse Resp B/P (MAP) Pulse Ox O2 Delivery O2 Flow Rate FiO2 12/15/16 06:42 18 100 Nasal Cannula 2.0 12/15/16 06:00 60 133/63 (86) 12/15/16 04:00 98.6 98.6 Physical Exam General: Alert, Oriented X3, Cooperative Heart: Regular rate, Normal S1, Normal S2 Lungs: Clear, Other Abdomen: Normal bowel sounds, Soft Extremities: No clubbing, No cyanosis, Other (bl leg 1+ edema) Skin: No rashes Labs LABS Laboratory Tests Test 12/14/16 12:58 12/14/16 16:10 12/14/16 16:31 12/14/16 19:10 White Blood Count 5.9 x10^3/uL (4.0-11.0) Red Blood Count 2.43 x10^6/uL (3.50-5.40) Hemoglobin 7.3 g/dL (12.0-15.5) Hematocrit 23.1 % (36.0-47.0) Mean Corpuscular Volume 95 fL (79-100) Mean Corpuscular Hemoglobin 30 pg (25-35) Mean Corpuscular Hemoglobin Concent 32 g/dL (31-37) Red Cell Distribution Width 17.5 % (11.5-14.5) Platelet Count 166 x10^3/uL (140-400) Neutrophils (%) (Auto) 64 % (31-73) Lymphocytes (%) (Auto) 24 % (24-48) Monocytes (%) (Auto) 8 % (0-9) Eosinophils (%) (Auto) 4 % (0-3) Basophils (%) (Auto) 1 % (0-3) Neutrophils # (Auto) 3.8 x10^3uL (1.8-7.7) Lymphocytes # (Auto) 1.4 x10^3/uL (1.0-4.8) Monocytes # (Auto) 0.5 x10^3/uL (0.0-1.1) Eosinophils # (Auto) 0.2 x10^3/uL (0.0-0.7) Basophils # (Auto) 0.0 x10^3/uL (0.0-0.2) Sodium Level 143 mmol/L (136-145) Potassium Level 4.2 mmol/L (3.5-5.1) Chloride Level 104 mmol/L (98-107) Carbon Dioxide Level 27 mmol/L (21-32) Anion Gap 12 (6-14) Blood Urea Nitrogen 24 mg/dL (7-20) Creatinine 4.1 mg/dL (0.6-1.0) Estimated GFR (Cockcroft-Gault) 10.9 Glucose Level 225 mg/dL (70-99) Calcium Level 8.0 mg/dL (8.5-10.1) Magnesium Level 1.8 mg/dL (1.8-2.4) Total Bilirubin 0.2 mg/dL (0.2-1.0) Direct Bilirubin < 0.1 mg/dL (0.0-0.2) Aspartate Amino Transf (AST/SGOT) 17 U/L (15-37) Alanine Aminotransferase (ALT/SGPT) 16 U/L (14-59) Alkaline Phosphatase 126 U/L (46-116) Creatine Kinase 82 U/L (26-192) Creatine Kinase MB (Mass) 1.3 ng/mL (0.0-3.6) Creatine Kinase MB Relative Index 1.6 % (0-4) Troponin I Quantitative 0.864 ng/mL (0.000-0.055) 0.955 ng/mL (0.000-0.055) 0.960 ng/mL (0.000-0.055) Total Protein 5.4 g/dL (6.4-8.2) Albumin 2.6 g/dL (3.4-5.0) Glucose (Fingerstick) 160 mg/dL (70-99) Test 12/14/16 22:55 12/15/16 04:10 White Blood Count 6.9 x10^3/uL (4.0-11.0) 7.3 x10^3/uL (4.0-11.0) Red Blood Count 2.38 x10^6/uL (3.50-5.40) 2.48 x10^6/uL (3.50-5.40) Hemoglobin 7.1 g/dL (12.0-15.5) 7.4 g/dL (12.0-15.5) Hematocrit 21.9 % (36.0-47.0) 23.0 % (36.0-47.0) Mean Corpuscular Volume 92 fL (79-100) 93 fL (79-100) Mean Corpuscular Hemoglobin 30 pg (25-35) 30 pg (25-35) Mean Corpuscular Hemoglobin Concent 33 g/dL (31-37) 32 g/dL (31-37) Red Cell Distribution Width 16.6 % (11.5-14.5) 16.9 % (11.5-14.5) Platelet Count 172 x10^3/uL (140-400) 198 x10^3/uL (140-400) Sodium Level 142 mmol/L (136-145) 141 mmol/L (136-145) Potassium Level 3.7 mmol/L (3.5-5.1) 4.1 mmol/L (3.5-5.1) Chloride Level 106 mmol/L (98-107) 105 mmol/L (98-107) Carbon Dioxide Level 29 mmol/L (21-32) 28 mmol/L (21-32) Anion Gap 7 (6-14) 8 (6-14) Blood Urea Nitrogen 27 mg/dL (7-20) 27 mg/dL (7-20) Creatinine 4.2 mg/dL (0.6-1.0) 4.5 mg/dL (0.6-1.0) Estimated GFR (Cockcroft-Gault) 10.6 9.8 BUN/Creatinine Ratio 6 (6-20) Glucose Level 119 mg/dL (70-99) 160 mg/dL (70-99) Calcium Level 8.4 mg/dL (8.5-10.1) 8.2 mg/dL (8.5-10.1) Magnesium Level 2.2 mg/dL (1.8-2.4) Total Bilirubin 0.2 mg/dL (0.2-1.0) Aspartate Amino Transf (AST/SGOT) 17 U/L (15-37) Alanine Aminotransferase (ALT/SGPT) 15 U/L (14-59) Alkaline Phosphatase 114 U/L (46-116) Total Protein 5.6 g/dL (6.4-8.2) Albumin 2.5 g/dL (3.4-5.0) Albumin/Globulin Ratio 0.8 (1.0-1.7) Neutrophils (%) (Auto) 59 % (31-73) Lymphocytes (%) (Auto) 27 % (24-48) Monocytes (%) (Auto) 8 % (0-9) Eosinophils (%) (Auto) 4 % (0-3) Basophils (%) (Auto) 2 % (0-3) Neutrophils # (Auto) 4.3 x10^3uL (1.8-7.7) Lymphocytes # (Auto) 2.0 x10^3/uL (1.0-4.8) Monocytes # (Auto) 0.6 x10^3/uL (0.0-1.1) Eosinophils # (Auto) 0.3 x10^3/uL (0.0-0.7) Basophils # (Auto) 0.1 x10^3/uL (0.0-0.2) Iron Level 55 ug/dL (50-170) Total Iron Binding Capacity 264 ug/dL (250-450) Iron Saturation 21 % (15-34) Ferritin 194 ng/mL (8-252) Assessment and Plan Assessmemt and Plan Problems Medical Problems: (1) Ventricular tachycardia Status: Acute Problems: Comment Review of Relevant I have reviewed the following items ashley (where applicable) has been applied. Labs Laboratory Tests Test 12/14/16 12:58 12/14/16 16:10 12/14/16 16:31 12/14/16 19:10 White Blood Count 5.9 x10^3/uL (4.0-11.0) Red Blood Count 2.43 x10^6/uL (3.50-5.40) Hemoglobin 7.3 g/dL (12.0-15.5) Hematocrit 23.1 % (36.0-47.0) Mean Corpuscular Volume 95 fL (79-100) Mean Corpuscular Hemoglobin 30 pg (25-35) Mean Corpuscular Hemoglobin Concent 32 g/dL (31-37) Red Cell Distribution Width 17.5 % (11.5-14.5) Platelet Count 166 x10^3/uL (140-400) Neutrophils (%) (Auto) 64 % (31-73) Lymphocytes (%) (Auto) 24 % (24-48) Monocytes (%) (Auto) 8 % (0-9) Eosinophils (%) (Auto) 4 % (0-3) Basophils (%) (Auto) 1 % (0-3) Neutrophils # (Auto) 3.8 x10^3uL (1.8-7.7) Lymphocytes # (Auto) 1.4 x10^3/uL (1.0-4.8) Monocytes # (Auto) 0.5 x10^3/uL (0.0-1.1) Eosinophils # (Auto) 0.2 x10^3/uL (0.0-0.7) Basophils # (Auto) 0.0 x10^3/uL (0.0-0.2) Sodium Level 143 mmol/L (136-145) Potassium Level 4.2 mmol/L (3.5-5.1) Chloride Level 104 mmol/L (98-107) Carbon Dioxide Level 27 mmol/L (21-32) Anion Gap 12 (6-14) Blood Urea Nitrogen 24 mg/dL (7-20) Creatinine 4.1 mg/dL (0.6-1.0) Estimated GFR (Cockcroft-Gault) 10.9 Glucose Level 225 mg/dL (70-99) Calcium Level 8.0 mg/dL (8.5-10.1) Magnesium Level 1.8 mg/dL (1.8-2.4) Total Bilirubin 0.2 mg/dL (0.2-1.0) Direct Bilirubin < 0.1 mg/dL (0.0-0.2) Aspartate Amino Transf (AST/SGOT) 17 U/L (15-37) Alanine Aminotransferase (ALT/SGPT) 16 U/L (14-59) Alkaline Phosphatase 126 U/L (46-116) Creatine Kinase 82 U/L (26-192) Creatine Kinase MB (Mass) 1.3 ng/mL (0.0-3.6) Creatine Kinase MB Relative Index 1.6 % (0-4) Troponin I Quantitative 0.864 ng/mL (0.000-0.055) 0.955 ng/mL (0.000-0.055) 0.960 ng/mL (0.000-0.055) Total Protein 5.4 g/dL (6.4-8.2) Albumin 2.6 g/dL (3.4-5.0) Glucose (Fingerstick) 160 mg/dL (70-99) Test 12/14/16 22:55 12/15/16 04:10 White Blood Count 6.9 x10^3/uL (4.0-11.0) 7.3 x10^3/uL (4.0-11.0) Red Blood Count 2.38 x10^6/uL (3.50-5.40) 2.48 x10^6/uL (3.50-5.40) Hemoglobin 7.1 g/dL (12.0-15.5) 7.4 g/dL (12.0-15.5) Hematocrit 21.9 % (36.0-47.0) 23.0 % (36.0-47.0) Mean Corpuscular Volume 92 fL (79-100) 93 fL (79-100) Mean Corpuscular Hemoglobin 30 pg (25-35) 30 pg (25-35) Mean Corpuscular Hemoglobin Concent 33 g/dL (31-37) 32 g/dL (31-37) Red Cell Distribution Width 16.6 % (11.5-14.5) 16.9 % (11.5-14.5) Platelet Count 172 x10^3/uL (140-400) 198 x10^3/uL (140-400) Sodium Level 142 mmol/L (136-145) 141 mmol/L (136-145) Potassium Level 3.7 mmol/L (3.5-5.1) 4.1 mmol/L (3.5-5.1) Chloride Level 106 mmol/L (98-107) 105 mmol/L (98-107) Carbon Dioxide Level 29 mmol/L (21-32) 28 mmol/L (21-32) Anion Gap 7 (6-14) 8 (6-14) Blood Urea Nitrogen 27 mg/dL (7-20) 27 mg/dL (7-20) Creatinine 4.2 mg/dL (0.6-1.0) 4.5 mg/dL (0.6-1.0) Estimated GFR (Cockcroft-Gault) 10.6 9.8 BUN/Creatinine Ratio 6 (6-20) Glucose Level 119 mg/dL (70-99) 160 mg/dL (70-99) Calcium Level 8.4 mg/dL (8.5-10.1) 8.2 mg/dL (8.5-10.1) Magnesium Level 2.2 mg/dL (1.8-2.4) Total Bilirubin 0.2 mg/dL (0.2-1.0) Aspartate Amino Transf (AST/SGOT) 17 U/L (15-37) Alanine Aminotransferase (ALT/SGPT) 15 U/L (14-59) Alkaline Phosphatase 114 U/L (46-116) Total Protein 5.6 g/dL (6.4-8.2) Albumin 2.5 g/dL (3.4-5.0) Albumin/Globulin Ratio 0.8 (1.0-1.7) Neutrophils (%) (Auto) 59 % (31-73) Lymphocytes (%) (Auto) 27 % (24-48) Monocytes (%) (Auto) 8 % (0-9) Eosinophils (%) (Auto) 4 % (0-3) Basophils (%) (Auto) 2 % (0-3) Neutrophils # (Auto) 4.3 x10^3uL (1.8-7.7) Lymphocytes # (Auto) 2.0 x10^3/uL (1.0-4.8) Monocytes # (Auto) 0.6 x10^3/uL (0.0-1.1) Eosinophils # (Auto) 0.3 x10^3/uL (0.0-0.7) Basophils # (Auto) 0.1 x10^3/uL (0.0-0.2) Iron Level 55 ug/dL (50-170) Total Iron Binding Capacity 264 ug/dL (250-450) Iron Saturation 21 % (15-34) Ferritin 194 ng/mL (8-252) Laboratory Tests Test 12/14/16 12:58 12/14/16 16:10 12/14/16 16:31 12/14/16 19:10 White Blood Count 5.9 x10^3/uL (4.0-11.0) Red Blood Count 2.43 x10^6/uL (3.50-5.40) Hemoglobin 7.3 g/dL (12.0-15.5) Hematocrit 23.1 % (36.0-47.0) Mean Corpuscular Volume 95 fL (79-100) Mean Corpuscular Hemoglobin 30 pg (25-35) Mean Corpuscular Hemoglobin Concent 32 g/dL (31-37) Red Cell Distribution Width 17.5 % (11.5-14.5) Platelet Count 166 x10^3/uL (140-400) Neutrophils (%) (Auto) 64 % (31-73) Lymphocytes (%) (Auto) 24 % (24-48) Monocytes (%) (Auto) 8 % (0-9) Eosinophils (%) (Auto) 4 % (0-3) Basophils (%) (Auto) 1 % (0-3) Neutrophils # (Auto) 3.8 x10^3uL (1.8-7.7) Lymphocytes # (Auto) 1.4 x10^3/uL (1.0-4.8) Monocytes # (Auto) 0.5 x10^3/uL (0.0-1.1) Eosinophils # (Auto) 0.2 x10^3/uL (0.0-0.7) Basophils # (Auto) 0.0 x10^3/uL (0.0-0.2) Sodium Level 143 mmol/L (136-145) Potassium Level 4.2 mmol/L (3.5-5.1) Chloride Level 104 mmol/L (98-107) Carbon Dioxide Level 27 mmol/L (21-32) Anion Gap 12 (6-14) Blood Urea Nitrogen 24 mg/dL (7-20) Creatinine 4.1 mg/dL (0.6-1.0) Estimated GFR (Cockcroft-Gault) 10.9 Glucose Level 225 mg/dL (70-99) Calcium Level 8.0 mg/dL (8.5-10.1) Magnesium Level 1.8 mg/dL (1.8-2.4) Total Bilirubin 0.2 mg/dL (0.2-1.0) Direct Bilirubin < 0.1 mg/dL (0.0-0.2) Aspartate Amino Transf (AST/SGOT) 17 U/L (15-37) Alanine Aminotransferase (ALT/SGPT) 16 U/L (14-59) Alkaline Phosphatase 126 U/L (46-116) Creatine Kinase 82 U/L (26-192) Creatine Kinase MB (Mass) 1.3 ng/mL (0.0-3.6) Creatine Kinase MB Relative Index 1.6 % (0-4) Troponin I Quantitative 0.864 ng/mL (0.000-0.055) 0.955 ng/mL (0.000-0.055) 0.960 ng/mL (0.000-0.055) Total Protein 5.4 g/dL (6.4-8.2) Albumin 2.6 g/dL (3.4-5.0) Glucose (Fingerstick) 160 mg/dL (70-99) Test 12/14/16 22:55 12/15/16 04:10 White Blood Count 6.9 x10^3/uL (4.0-11.0) 7.3 x10^3/uL (4.0-11.0) Red Blood Count 2.38 x10^6/uL (3.50-5.40) 2.48 x10^6/uL (3.50-5.40) Hemoglobin 7.1 g/dL (12.0-15.5) 7.4 g/dL (12.0-15.5) Hematocrit 21.9 % (36.0-47.0) 23.0 % (36.0-47.0) Mean Corpuscular Volume 92 fL (79-100) 93 fL (79-100) Mean Corpuscular Hemoglobin 30 pg (25-35) 30 pg (25-35) Mean Corpuscular Hemoglobin Concent 33 g/dL (31-37) 32 g/dL (31-37) Red Cell Distribution Width 16.6 % (11.5-14.5) 16.9 % (11.5-14.5) Platelet Count 172 x10^3/uL (140-400) 198 x10^3/uL (140-400) Sodium Level 142 mmol/L (136-145) 141 mmol/L (136-145) Potassium Level 3.7 mmol/L (3.5-5.1) 4.1 mmol/L (3.5-5.1) Chloride Level 106 mmol/L (98-107) 105 mmol/L (98-107) Carbon Dioxide Level 29 mmol/L (21-32) 28 mmol/L (21-32) Anion Gap 7 (6-14) 8 (6-14) Blood Urea Nitrogen 27 mg/dL (7-20) 27 mg/dL (7-20) Creatinine 4.2 mg/dL (0.6-1.0) 4.5 mg/dL (0.6-1.0) Estimated GFR (Cockcroft-Gault) 10.6 9.8 BUN/Creatinine Ratio 6 (6-20) Glucose Level 119 mg/dL (70-99) 160 mg/dL (70-99) Calcium Level 8.4 mg/dL (8.5-10.1) 8.2 mg/dL (8.5-10.1) Magnesium Level 2.2 mg/dL (1.8-2.4) Total Bilirubin 0.2 mg/dL (0.2-1.0) Aspartate Amino Transf (AST/SGOT) 17 U/L (15-37) Alanine Aminotransferase (ALT/SGPT) 15 U/L (14-59) Alkaline Phosphatase 114 U/L (46-116) Total Protein 5.6 g/dL (6.4-8.2) Albumin 2.5 g/dL (3.4-5.0) Albumin/Globulin Ratio 0.8 (1.0-1.7) Neutrophils (%) (Auto) 59 % (31-73) Lymphocytes (%) (Auto) 27 % (24-48) Monocytes (%) (Auto) 8 % (0-9) Eosinophils (%) (Auto) 4 % (0-3) Basophils (%) (Auto) 2 % (0-3) Neutrophils # (Auto) 4.3 x10^3uL (1.8-7.7) Lymphocytes # (Auto) 2.0 x10^3/uL (1.0-4.8) Monocytes # (Auto) 0.6 x10^3/uL (0.0-1.1) Eosinophils # (Auto) 0.3 x10^3/uL (0.0-0.7) Basophils # (Auto) 0.1 x10^3/uL (0.0-0.2) Iron Level 55 ug/dL (50-170) Total Iron Binding Capacity 264 ug/dL (250-450) Iron Saturation 21 % (15-34) Ferritin 194 ng/mL (8-252) Medications Current Medications Amiodarone HCl 150 mg/Dextrose 103 ml @ 618 mls/hr 1X ONCE IV Last administered on 12/14/16 13:35; Start 12/14/16 at 13:30; Stop 12/14/16 at 13:39 ; Status DC Amiodarone HCl 900 mg/Dextrose 518 ml @ 0 mls/hr CONT PRN IV SEE I/O RECORD Last administered on 12/14/16 13:50; Start 12/14/16 at 13:30; Stop 12/14/16 at 13:52; Status DC Amiodarone HCl (Cordarone) 150 mg STK-MED ONCE .ROUTE ; Start 12/14/16 at 13:22 ; Stop 12/14/16 at 13:23; Status DC Mexiletine HCl (Mexitil) 200 mg Q8HRS PO ; Start 12/14/16 at 15:00; Status Cancel Magnesium Sulfate/ Dextrose 50 ml @ 25 mls/hr 1X ONCE IV Last administered on 12/14/16 17:15; Start 12/14/16 at 17:00; Stop 12/14/16 at 18:59; Status DC Alprazolam (Xanax) 0.25 mg PRN DAILY PRN PO ANXIETY / AGITATION Last administered on 12/14/16 20:48; Start 12/14/16 at 16:00 Aspirin (Ecotrin) 81 mg DAILY PO ; Start 12/15/16 at 09:00 Atorvastatin Calcium (Lipitor) 10 mg QHS PO Last administered on 12/14/16 20: 47; Start 12/14/16 at 21:00 Carvedilol (Coreg) 3.125 mg BIDWMEALS PO Last administered on 12/14/16 17:10; Start 12/14/16 at 17:00 Cinacalcet (Sensipar) 30 mg QHS PO Last administered on 12/14/16 20:48; Start 12/14/16 at 21:00 Clopidogrel Bisulfate (Plavix) 75 mg DAILY PO ; Start 12/15/16 at 09:00 Mexiletine HCl (Mexitil) 200 mg Q8HRS PO Last administered on 12/15/16 05:12; Start 12/14/16 at 16:30 Sertraline HCl (Zoloft) 50 mg QHS PO Last administered on 12/14/16 20:48; Start 12/14/16 at 21:00 Calcium Acetate (Phoslo) 1,334 mg TIDWMEALS PO Last administered on 12/14/16 17:11; Start 12/14/16 at 17:00 Gabapentin (Neurontin) 300 mg DAILY PO ; Start 12/15/16 at 09:00; Stop 12/15/16 at 09:00; Status DC Vitamin B Complex/ Vitamin C (Alayna-Oneil) 1 tab DAILY PO ; Start 12/15/16 at 09: 00 Acetaminophen (Tylenol) 650 mg PRN Q6HRS PRN PO FEVER; Start 12/14/16 at 16:00 Ondansetron HCl (Zofran) 4 mg PRN Q6HRS PRN IV NAUSEA/VOMITING Last administered on 12/15/16 03:49; Start 9/24/17 at 16:00 Hydralazine HCl (Apresoline) 10 mg PRN Q4HRS PRN IVP ELEVATED BP, SEE COMMENTS ; Start 12/14/16 at 16:00 Docusate Sodium (Colace) 100 mg PRN DAILY PRN PO CONSTIPATION; Start 12/14/16 at 16:00 Heparin Sodium (Porcine) (Heparin Sq) 5,000 unit Q8HRS SQ Last administered on 12/15/16 05:13; Start 12/14/16 at 16:15 Insulin Aspart (NovoLOG) 0-9 UNITS TIDWMEALS SQ Last administered on 12/14/16 17:48; Start 12/14/16 at 17:00 Dextrose (Dextrose 50%-Water Syringe) 12.5 gm PRN Q15MIN PRN IV SEE COMMENTS; Start 12/14/16 at 16:15 Gabapentin (Neurontin) 300 mg QHS PO Last administered on 12/14/16 21:00; Start 12/14/16 at 21:00 Metoprolol Tartrate (Lopressor) 10 mg Q6HRS IVP Last administered on 12/15/16 05:11; Start 12/15/16 at 00:15 Lidocaine HCl/ Dextrose 500 ml @ 0 mls/hr CONT PRN IV SEE I/O RECORD Last administered on 12/15/16 04:09; Start 12/15/16 at 04:15 Lorazepam (Ativan) Give to reduce excitibi... PRN Q4HRS PRN IV ANXIETY / AGITATION; Start 12/15/16 at 04:30 Fentanyl Citrate (Fentanyl 2ml Vial) 25 mcg PRN Q2HR PRN IV PAIN; Start at 04:30 Fentanyl Citrate (Fentanyl 2ml Vial) 50 mcg PRN Q2HR PRN IV PAIN; Start at 04:45 Acetaminophen/ Hydrocodone Bitart (Lortab 10/325) 1 tab PRN Q6HRS PRN PO PAIN Last administered on 12/15/16 05:42; Start 12/15/16 at 05:30 Active Scripts Active Mexiletine Hcl 200 Mg Capsule 200 Mg PO Q8HRS 30 Days Atorvastatin Calcium 10 Mg Tablet 10 Mg PO QHS 30 Days Amiodarone Hcl 200 Mg Tablet 200 Mg PO DAILY 30 Days Carvedilol 3.125 Mg Tablet 3.125 Mg PO BIDWMEALS Reported Sertraline Hcl 50 Mg Tablet 50 Mg PO QHS Sensipar (Cinacalcet Hcl) 30 Mg Tablet 1 Tab PO QHS Alayna-Oneil Rx Tablet (Vit B Cmplx 3/Fa/Vit C/Biotin) 1 Each Tablet 1 Each PO DAILY Cranberry Plus Vitamin C Sftgl (Cranberry Conc/Ascorbic Acid) 1 Each Capsule 1 Each PO DAILY Coricidin Hbp Tablet (Acetaminophen/Chlorpheniramine) 1 Each Tablet 1 Each PO PRN Alprazolam 0.25 Mg Tablet 1 Tab PO DAILY PRN Plavix (Clopidogrel Bisulfate) 75 Mg Tablet 75 Mg PO DAILY Calcium Acetate 667 Mg Tablet 2 Tab PO TIDWMEALS last dose was this am next dose is wiith supper Tylenol Extra Strength (Acetaminophen) 500 Mg Tablet 500 Mg PO PRN Q12HRS PRN not given in hospital may resume when needed Gabapentin 300 Mg Capsule 300 Mg PO DAILY Benadryl Allergy (Diphenhydramine Hcl) 25 Mg Tablet 25 Mg PO PRN not given in the hospital Aspir 81 (Aspirin) 81 Mg Tablet.dr 81 Mg PO DAILY last dose was this am resume in am Vitals/I & O Vital Sign - Last 24 Hours 12/14/16 12/14/16 12/14/16 12/14/16 12:49 13:00 13:30 13:35 Temp 98.5 98.5 Pulse 61 61 64 63 Resp 18 10 B/P (MAP) 188/77 (114) 196/68 (110) 159/74 (102) 146/66 Pulse Ox 99 O2 Delivery Room Air Room Air Room Air 12/14/16 12/14/16 12/14/16 12/14/16 14:00 14:30 15:00 15:30 Pulse 60 60 60 62 Resp 17 9 13 11 B/P (MAP) 149/65 (93) 128/59 (82) 162/72 (102) 165/70 (101) Pulse Ox 97 98 92 94 O2 Delivery Room Air Room Air Room Air Room Air 12/14/16 12/14/16 12/14/16 12/14/16 16:00 16:30 17:00 17:10 Temp 98.6 98.6 Pulse 60 60 60 61 Resp 20 15 14 B/P (MAP) 135/62 (86) 141/63 (89) 167/69 (101) 141/63 Pulse Ox 96 96 97 O2 Delivery Room Air Room Air Room Air 12/14/16 12/14/16 12/14/16 12/14/16 18:00 20:00 20:00 21:00 Temp 98.9 98.9 Pulse 60 Resp 17 18 18 B/P (MAP) 167/77 (107) 142/59 (86) 133/77 (95) Pulse Ox 100 95 96 O2 Delivery Room Air Room Air Room Air Room Air 12/14/16 12/14/16 12/14/16 12/15/16 22:00 23:00 23:59 00:00 Temp 98.2 98.2 Pulse 60 60 Resp 16 16 16 B/P (MAP) 140/58 (85) 150/71 (97) 143/70 (94) Pulse Ox 99 99 95 O2 Delivery Room Air Room Air Room Air Room Air 12/15/16 12/15/16 12/15/16 12/15/16 00:17 01:00 02:00 03:00 Pulse 63 60 65 60 Resp 16 16 16 B/P (MAP) 143/61 153/68 (96) 148/61 (90) 151/60 (90) Pulse Ox 97 100 100 O2 Delivery Room Air Nasal Cannula Nasal Cannula O2 Flow Rate 2.0 2.0 12/15/16 12/15/16 12/15/16 12/15/16 04:00 04:00 05:00 05:11 Temp 98.6 98.6 Pulse 66 60 66 Resp 18 18 B/P (MAP) 162/80 (107) 149/74 (99) 162/80 Pulse Ox 100 100 O2 Delivery Room Air Nasal Cannula Nasal Cannula O2 Flow Rate 2.0 2.0 12/15/16 12/15/16 12/15/16 05:42 06:00 06:42 Pulse 60 Resp 16 18 18 B/P (MAP) 133/63 (86) Pulse Ox 100 100 100 O2 Delivery Nasal Cannula Nasal Cannula Nasal Cannula O2 Flow Rate 2.0 2.0 2.0 SAVANNAH LOPEZ MD Dec 15, 2016 07:44
[2016-12-15] MEDS: FERROUS SULFATE 325 MG TABLET. PO SCH (08:00)
[2016-12-15] MEDS: INSULIN ASPART 300 UNITS/3 ML INSULN.PEN SQ SCH ×3 (08:00→17:00)
[2016-12-15] MEDS: CALCIUM ACETATE 667 MG CAPSULE PO SCH ×3 (08:00→17:00)
[2016-12-15 08:41] LABS: FOLATE 18.19 ng/ml (3.2-20.0)
[2016-12-15] MEDS: CARVEDILOL 3.125 MG TABLET. PO SCH ×2 (08:52→18:41)
[2016-12-15] MEDS: CLOPIDOGREL BISULFATE 75 MG TABLET PO SCH (08:52)
[2016-12-15] MEDS: ASPIRIN ENTERIC COATED 81 MG TABLET.DR. PO SCH (08:53)
[2016-12-15] MEDS: FOLIC/VIT B COMP W-C (RENAL) TABLET. PO SCH (08:53)
[2016-12-15] MEDS ORDERED: GABAPENTIN 300 MG CAPSULE. PO SCH (09:00)
--- NOTE | 2016-12-15 11:25 | PDOC2 ---
CONSULT Date of Consult Date of Consult DATE: 12/15/16 TIME: 11:19 Reason for Consult Reason for Consult: ESRD Referring Physician Referring Physician: JOHN Identification/Chief Complaint Chief Complaint THIS IS A 66 YR OLD WHOSE AICD FIRED. SHE IS UNDERGOING CARDIOLOGY EVALUATION NOW. SHE HAS ESRD AND IS ON TTS SCHEDULE. SHE WENT TO HER [place] ON SAT AND IT WAS UNEVENTFUL. SHE IS USUALLY NON COMPLIANT. SHE WAS RECENTLY DISCHARGED FROM THE HOSPITAL AND WAS SENT TO AND SHE LEFT THERE AMA A FEW DAYS AGO. SHE DID NOT TAKE HER NEW MEDS FOR HER ARRHYTHMIA AFTER LEAVING AMA. SHE IS NOTED TO HAVE V TACH AND NOW IN THE ICU. SHE IS ANEMIC AND LABS ARE OTHERWISE C/W ESRD Problems: Source Source: Chart review, Patient History of Present Illness Reason for Visit: ABOVE Past Medical History Cardiovascular: HTN, Valve insufficiency, Other Pulmonary: COPD CENTRAL NERVOUS SYSTEM: Other GI: No pertinent hx Heme/Onc: Anemia NOS Hepatobiliary: No pertinent hx Psych: Depression Musculoskeletal: low back pain, Other Rheumatologic: No pertinent hx Infectious disease: No pertinent hx Renal/: Chronic renal failure Endocrine: Diabetes, Hyperparathyroidism Past Surgical History Past Surgical History: Arthroscopy, Cholecystectomy, Tonsillectomy, Hysterectomy, Other Family History Family History: Diabetes Social History <1 pack per day ALCOHOL: rare Drugs: None Lives: with Family Current Problem List Problem List Problems Medical Problems: (1) Ventricular tachycardia Status: Acute Current Medications Current Medications Current Medications Amiodarone HCl 150 mg/Dextrose 103 ml @ 618 mls/hr 1X ONCE IV Last administered on 12/14/16t 13:35; Start 12/14/16 at 13:30; Stop 12/14/16 at 13:39 ; Status DC Amiodarone HCl 900 mg/Dextrose 518 ml @ 0 mls/hr CONT PRN IV SEE I/O RECORD Last administered on 12/14/16t 13:50; Start 12/14/16 at 13:30; Stop 12/14/16 at 13:52; Status DC Amiodarone HCl (Cordarone) 150 mg STK-MED ONCE .ROUTE ; Start 12/14/16 at 13:22 ; Stop 12/14/16 at 13:23; Status DC Mexiletine HCl (Mexitil) 200 mg Q8HRS PO ; Start 12/14/16 at 15:00; Status Cancel Magnesium Sulfate/ Dextrose 50 ml @ 25 mls/hr 1X ONCE IV Last administered on 12/14/16 17:15; Start 12/14/16 at 17:00; Stop 12/14/16 at 18:59; Status DC Alprazolam (Xanax) 0.25 mg PRN DAILY PRN PO ANXIETY / AGITATION Last administered on 12/14/16 20:48; Start 12/14/16 at 16:00 Aspirin (Ecotrin) 81 mg DAILY PO Last administered on 12/15/16 08:53; Start at 09:00 Atorvastatin Calcium (Lipitor) 10 mg QHS PO Last administered on 12/14/16 20: 47; Start 12/14/16 at 21:00 Carvedilol (Coreg) 3.125 mg BIDWMEALS PO Last administered on 12/15/16 08:52; Start 12/14/16 at 17:00 Cinacalcet (Sensipar) 30 mg QHS PO Last administered on 12/14/16 20:48; Start 12/14/16 at 21:00 Clopidogrel Bisulfate (Plavix) 75 mg DAILY PO Last administered on 12/15/16 08 :52; Start 12/15/16 at 09:00 Mexiletine HCl (Mexitil) 200 mg Q8HRS PO Last administered on 12/15/16 05:12; Start 12/14/16 at 16:30 Sertraline HCl (Zoloft) 50 mg QHS PO Last administered on 12/14/16 20:48; Start 12/14/16 at 21:00 Calcium Acetate (Phoslo) 1,334 mg TIDWMEALS PO Last administered on 12/14/16 17:11; Start 12/14/16 at 17:00 Gabapentin (Neurontin) 300 mg DAILY PO ; Start 12/15/16 at 09:00; Stop 12/15/16 at 09:00; Status DC Vitamin B Complex/ Vitamin C (Alayna-Oneil) 1 tab DAILY PO ; Start 12/15/16 at 09: 00 Acetaminophen (Tylenol) 650 mg PRN Q6HRS PRN PO FEVER; Start 12/14/16 at 16:00 Ondansetron HCl (Zofran) 4 mg PRN Q6HRS PRN IV NAUSEA/VOMITING Last administered on 12/15/16 08:53; Start 12/14/16 at 16:00 Hydralazine HCl (Apresoline) 10 mg PRN Q4HRS PRN IVP ELEVATED BP, SEE COMMENTS ; Start 12/14/16 at 16:00 Docusate Sodium (Colace) 100 mg PRN DAILY PRN PO CONSTIPATION; Start 12/14/16 at 16:00 Heparin Sodium (Porcine) (Heparin Sq) 5,000 unit Q8HRS SQ Last administered on 12/15/16 05:13; Start 12/14/16 at 16:15 Insulin Aspart (NovoLOG) 0-9 UNITS TIDWMEALS SQ Last administered on 12/14/16 17:48; Start 12/14/16 at 17:00 Dextrose (Dextrose 50%-Water Syringe) 12.5 gm PRN Q15MIN PRN IV SEE COMMENTS; Start 12/14/16 at 16:15 Gabapentin (Neurontin) 300 mg QHS PO Last administered on 12/14/16 21:00; Start 12/14/16 at 21:00 Metoprolol Tartrate (Lopressor) 10 mg Q6HRS IVP Last administered on 12/15/16 05:11; Start 12/15/16 at 00:15 Lidocaine HCl/ Dextrose 500 ml @ 0 mls/hr CONT PRN IV SEE I/O RECORD Last administered on 12/15/16 04:09; Start 12/15/16 at 04:15 Lorazepam (Ativan) Give to reduce excitibi... PRN Q4HRS PRN IV ANXIETY / AGITATION; Start 12/15/16 at 04:30 Fentanyl Citrate (Fentanyl 2ml Vial) 25 mcg PRN Q2HR PRN IV PAIN; Start at 04:30 Fentanyl Citrate (Fentanyl 2ml Vial) 50 mcg PRN Q2HR PRN IV PAIN; Start at 04:45 Acetaminophen/ Hydrocodone Bitart (Lortab 10/325) 1 tab PRN Q6HRS PRN PO PAIN Last administered on 12/15/16 05:42; Start 12/15/16 at 05:30 Ferrous Sulfate (Feosol) 325 mg DAILYWBKFT PO ; Start 12/15/16 at 08:00 Active Scripts Active Mexiletine Hcl 200 Mg Capsule 200 Mg PO Q8HRS 30 Days Atorvastatin Calcium 10 Mg Tablet 10 Mg PO QHS 30 Days Amiodarone Hcl 200 Mg Tablet 200 Mg PO DAILY 30 Days Carvedilol 3.125 Mg Tablet 3.125 Mg PO BIDWMEALS Reported Sertraline Hcl 50 Mg Tablet 50 Mg PO QHS Sensipar (Cinacalcet Hcl) 30 Mg Tablet 1 Tab PO QHS Alayna-Oneil Rx Tablet (Vit B Cmplx 3/Fa/Vit C/Biotin) 1 Each Tablet 1 Each PO DAILY Cranberry Plus Vitamin C Sftgl (Cranberry Conc/Ascorbic Acid) 1 Each Capsule 1 Each PO DAILY Coricidin Hbp Tablet (Acetaminophen/Chlorpheniramine) 1 Each Tablet 1 Each PO PRN Alprazolam 0.25 Mg Tablet 1 Tab PO DAILY PRN Plavix (Clopidogrel Bisulfate) 75 Mg Tablet 75 Mg PO DAILY Calcium Acetate 667 Mg Tablet 2 Tab PO TIDWMEALS last dose was this am next dose is wiith supper Tylenol Extra Strength (Acetaminophen) 500 Mg Tablet 500 Mg PO PRN Q12HRS PRN not given in hospital may resume when needed Gabapentin 300 Mg Capsule 300 Mg PO DAILY Benadryl Allergy (Diphenhydramine Hcl) 25 Mg Tablet 25 Mg PO PRN not given in the hospital Aspir 81 (Aspirin) 81 Mg Tablet.dr 81 Mg PO DAILY last dose was this am resume in am Allergies Allergies: Coded Allergies: ciprofloxacin (Verified Allergy, Intermediate, Rash, 01/25/15) morphine (Verified Adverse Reaction, Severe, makes her skin crawl, 01/25/15 ) oxycodone (Verified Adverse Reaction, Severe, makes her skin crawl, ) adhesive (Verified Adverse Reaction, Intermediate, blisters, 01/25/15) "use paper tape" ROS General: YES: Fatigue, Malaise PSYCHOLOGICAL ROS: YES: Anxiety Eyes: Yes Decreased vision HEENT: YES: [place]acaches Respiratory: YES: Cough, SOB with excertion Gastrointestinal: Yes Constipation Genitourinary: YES Other (ANURIA) Musculoskeletal: Yes Muscular Weakness Neurological: Yes Weakness Skin: Yes Dry Skin Physical Exam General: Alert, Oriented X3, Cooperative, No acute distress HEENT: Atraumatic, PERRLA Lungs: Clear to auscultation Heart: Regular rate Abdomen: Normal bowel sounds, Soft, No tenderness Extremities: No clubbing, Other (AV ACCESS WITH A GOOD THRILL AND BRUIT.) Neuro: Normal speech, Cranial nerves 3-12 NL Psych/Mental Status: Mental status NL, Mood NL MUSCULOSKELETAL: No deformity, No swelling Vitals VITALS Vital Signs Date Time Temp Pulse Resp B/P (MAP) Pulse Ox O2 Delivery O2 Flow Rate FiO2 12/15/16 11:00 60 12 109/59 (76) 100 Nasal Cannula 2.0 12/15/16 09:36 98.0 98.0 Labs Labs Laboratory Tests Test 12/14/16 12:58 12/14/16 16:10 12/14/16 16:31 12/14/16 19:10 White Blood Count 5.9 x10^3/uL (4.0-11.0) Red Blood Count 2.43 x10^6/uL (3.50-5.40) Hemoglobin 7.3 g/dL (12.0-15.5) Hematocrit 23.1 % (36.0-47.0) Mean Corpuscular Volume 95 fL (79-100) Mean Corpuscular Hemoglobin 30 pg (25-35) Mean Corpuscular Hemoglobin Concent 32 g/dL (31-37) Red Cell Distribution Width 17.5 % (11.5-14.5) Platelet Count 166 x10^3/uL (140-400) Neutrophils (%) (Auto) 64 % (31-73) Lymphocytes (%) (Auto) 24 % (24-48) Monocytes (%) (Auto) 8 % (0-9) Eosinophils (%) (Auto) 4 % (0-3) Basophils (%) (Auto) 1 % (0-3) Neutrophils # (Auto) 3.8 x10^3uL (1.8-7.7) Lymphocytes # (Auto) 1.4 x10^3/uL (1.0-4.8) Monocytes # (Auto) 0.5 x10^3/uL (0.0-1.1) Eosinophils # (Auto) 0.2 x10^3/uL (0.0-0.7) Basophils # (Auto) 0.0 x10^3/uL (0.0-0.2) Sodium Level 143 mmol/L (136-145) Potassium Level 4.2 mmol/L (3.5-5.1) Chloride Level 104 mmol/L (98-107) Carbon Dioxide Level 27 mmol/L (21-32) Anion Gap 12 (6-14) Blood Urea Nitrogen 24 mg/dL (7-20) Creatinine 4.1 mg/dL (0.6-1.0) Estimated GFR (Cockcroft-Gault) 10.9 Glucose Level 225 mg/dL (70-99) Calcium Level 8.0 mg/dL (8.5-10.1) Magnesium Level 1.8 mg/dL (1.8-2.4) Total Bilirubin 0.2 mg/dL (0.2-1.0) Direct Bilirubin < 0.1 mg/dL (0.0-0.2) Aspartate Amino Transf (AST/SGOT) 17 U/L (15-37) Alanine Aminotransferase (ALT/SGPT) 16 U/L (14-59) Alkaline Phosphatase 126 U/L (46-116) Creatine Kinase 82 U/L (26-192) Creatine Kinase MB (Mass) 1.3 ng/mL (0.0-3.6) Creatine Kinase MB Relative Index 1.6 % (0-4) Troponin I Quantitative 0.864 ng/mL (0.000-0.055) 0.955 ng/mL (0.000-0.055) 0.960 ng/mL (0.000-0.055) Total Protein 5.4 g/dL (6.4-8.2) Albumin 2.6 g/dL (3.4-5.0) Glucose (Fingerstick) 160 mg/dL (70-99) Test 12/14/16 22:55 12/15/16 04:10 White Blood Count 6.9 x10^3/uL (4.0-11.0) 7.3 x10^3/uL (4.0-11.0) Red Blood Count 2.38 x10^6/uL (3.50-5.40) 2.48 x10^6/uL (3.50-5.40) Hemoglobin 7.1 g/dL (12.0-15.5) 7.4 g/dL (12.0-15.5) Hematocrit 21.9 % (36.0-47.0) 23.0 % (36.0-47.0) Mean Corpuscular Volume 92 fL (79-100) 93 fL (79-100) Mean Corpuscular Hemoglobin 30 pg (25-35) 30 pg (25-35) Mean Corpuscular Hemoglobin Concent 33 g/dL (31-37) 32 g/dL (31-37) Red Cell Distribution Width 16.6 % (11.5-14.5) 16.9 % (11.5-14.5) Platelet Count 172 x10^3/uL (140-400) 198 x10^3/uL (140-400) Sodium Level 142 mmol/L (136-145) 141 mmol/L (136-145) Potassium Level 3.7 mmol/L (3.5-5.1) 4.1 mmol/L (3.5-5.1) Chloride Level 106 mmol/L (98-107) 105 mmol/L (98-107) Carbon Dioxide Level 29 mmol/L (21-32) 28 mmol/L (21-32) Anion Gap 7 (6-14) 8 (6-14) Blood Urea Nitrogen 27 mg/dL (7-20) 27 mg/dL (7-20) Creatinine 4.2 mg/dL (0.6-1.0) 4.5 mg/dL (0.6-1.0) Estimated GFR (Cockcroft-Gault) 10.6 9.8 BUN/Creatinine Ratio 6 (6-20) Glucose Level 119 mg/dL (70-99) 160 mg/dL (70-99) Calcium Level 8.4 mg/dL (8.5-10.1) 8.2 mg/dL (8.5-10.1) Magnesium Level 2.2 mg/dL (1.8-2.4) Total Bilirubin 0.2 mg/dL (0.2-1.0) Aspartate Amino Transf (AST/SGOT) 17 U/L (15-37) Alanine Aminotransferase (ALT/SGPT) 15 U/L (14-59) Alkaline Phosphatase 114 U/L (46-116) Total Protein 5.6 g/dL (6.4-8.2) Albumin 2.5 g/dL (3.4-5.0) Albumin/Globulin Ratio 0.8 (1.0-1.7) Neutrophils (%) (Auto) 59 % (31-73) Lymphocytes (%) (Auto) 27 % (24-48) Monocytes (%) (Auto) 8 % (0-9) Eosinophils (%) (Auto) 4 % (0-3) Basophils (%) (Auto) 2 % (0-3) Neutrophils # (Auto) 4.3 x10^3uL (1.8-7.7) Lymphocytes # (Auto) 2.0 x10^3/uL (1.0-4.8) Monocytes # (Auto) 0.6 x10^3/uL (0.0-1.1) Eosinophils # (Auto) 0.3 x10^3/uL (0.0-0.7) Basophils # (Auto) 0.1 x10^3/uL (0.0-0.2) Iron Level 55 ug/dL (50-170) Total Iron Binding Capacity 264 ug/dL (250-450) Iron Saturation 21 % (15-34) Ferritin 194 ng/mL (8-252) Vitamin B12 Level 455 pg/mL (247-911) Serum Folate 18.19 ng/ml (3.2-20.0) Laboratory Tests Test 12/14/16 12:58 12/14/16 16:10 12/14/16 16:31 12/14/16 19:10 White Blood Count 5.9 x10^3/uL (4.0-11.0) Red Blood Count 2.43 x10^6/uL (3.50-5.40) Hemoglobin 7.3 g/dL (12.0-15.5) Hematocrit 23.1 % (36.0-47.0) Mean Corpuscular Volume 95 fL (79-100) Mean Corpuscular Hemoglobin 30 pg (25-35) Mean Corpuscular Hemoglobin Concent 32 g/dL (31-37) Red Cell Distribution Width 17.5 % (11.5-14.5) Platelet Count 166 x10^3/uL (140-400) Neutrophils (%) (Auto) 64 % (31-73) Lymphocytes (%) (Auto) 24 % (24-48) Monocytes (%) (Auto) 8 % (0-9) Eosinophils (%) (Auto) 4 % (0-3) Basophils (%) (Auto) 1 % (0-3) Neutrophils # (Auto) 3.8 x10^3uL (1.8-7.7) Lymphocytes # (Auto) 1.4 x10^3/uL (1.0-4.8) Monocytes # (Auto) 0.5 x10^3/uL (0.0-1.1) Eosinophils # (Auto) 0.2 x10^3/uL (0.0-0.7) Basophils # (Auto) 0.0 x10^3/uL (0.0-0.2) Sodium Level 143 mmol/L (136-145) Potassium Level 4.2 mmol/L (3.5-5.1) Chloride Level 104 mmol/L (98-107) Carbon Dioxide Level 27 mmol/L (21-32) Anion Gap 12 (6-14) Blood Urea Nitrogen 24 mg/dL (7-20) Creatinine 4.1 mg/dL (0.6-1.0) Estimated GFR (Cockcroft-Gault) 10.9 Glucose Level 225 mg/dL (70-99) Calcium Level 8.0 mg/dL (8.5-10.1) Magnesium Level 1.8 mg/dL (1.8-2.4) Total Bilirubin 0.2 mg/dL (0.2-1.0) Direct Bilirubin < 0.1 mg/dL (0.0-0.2) Aspartate Amino Transf (AST/SGOT) 17 U/L (15-37) Alanine Aminotransferase (ALT/SGPT) 16 U/L (14-59) Alkaline Phosphatase 126 U/L (46-116) Creatine Kinase 82 U/L (26-192) Creatine Kinase MB (Mass) 1.3 ng/mL (0.0-3.6) Creatine Kinase MB Relative Index 1.6 % (0-4) Troponin I Quantitative 0.864 ng/mL (0.000-0.055) 0.955 ng/mL (0.000-0.055) 0.960 ng/mL (0.000-0.055) Total Protein 5.4 g/dL (6.4-8.2) Albumin 2.6 g/dL (3.4-5.0) Glucose (Fingerstick) 160 mg/dL (70-99) Test 12/14/16 22:55 12/15/16 04:10 White Blood Count 6.9 x10^3/uL (4.0-11.0) 7.3 x10^3/uL (4.0-11.0) Red Blood Count 2.38 x10^6/uL (3.50-5.40) 2.48 x10^6/uL (3.50-5.40) Hemoglobin 7.1 g/dL (12.0-15.5) 7.4 g/dL (12.0-15.5) Hematocrit 21.9 % (36.0-47.0) 23.0 % (36.0-47.0) Mean Corpuscular Volume 92 fL (79-100) 93 fL (79-100) Mean Corpuscular Hemoglobin 30 pg (25-35) 30 pg (25-35) Mean Corpuscular Hemoglobin Concent 33 g/dL (31-37) 32 g/dL (31-37) Red Cell Distribution Width 16.6 % (11.5-14.5) 16.9 % (11.5-14.5) Platelet Count 172 x10^3/uL (140-400) 198 x10^3/uL (140-400) Sodium Level 142 mmol/L (136-145) 141 mmol/L (136-145) Potassium Level 3.7 mmol/L (3.5-5.1) 4.1 mmol/L (3.5-5.1) Chloride Level 106 mmol/L (98-107) 105 mmol/L (98-107) Carbon Dioxide Level 29 mmol/L (21-32) 28 mmol/L (21-32) Anion Gap 7 (6-14) 8 (6-14) Blood Urea Nitrogen 27 mg/dL (7-20) 27 mg/dL (7-20) Creatinine 4.2 mg/dL (0.6-1.0) 4.5 mg/dL (0.6-1.0) Estimated GFR (Cockcroft-Gault) 10.6 9.8 BUN/Creatinine Ratio 6 (6-20) Glucose Level 119 mg/dL (70-99) 160 mg/dL (70-99) Calcium Level 8.4 mg/dL (8.5-10.1) 8.2 mg/dL (8.5-10.1) Magnesium Level 2.2 mg/dL (1.8-2.4) Total Bilirubin 0.2 mg/dL (0.2-1.0) Aspartate Amino Transf (AST/SGOT) 17 U/L (15-37) Alanine Aminotransferase (ALT/SGPT) 15 U/L (14-59) Alkaline Phosphatase 114 U/L (46-116) Total Protein 5.6 g/dL (6.4-8.2) Albumin 2.5 g/dL (3.4-5.0) Albumin/Globulin Ratio 0.8 (1.0-1.7) Neutrophils (%) (Auto) 59 % (31-73) Lymphocytes (%) (Auto) 27 % (24-48) Monocytes (%) (Auto) 8 % (0-9) Eosinophils (%) (Auto) 4 % (0-3) Basophils (%) (Auto) 2 % (0-3) Neutrophils # (Auto) 4.3 x10^3uL (1.8-7.7) Lymphocytes # (Auto) 2.0 x10^3/uL (1.0-4.8) Monocytes # (Auto) 0.6 x10^3/uL (0.0-1.1) Eosinophils # (Auto) 0.3 x10^3/uL (0.0-0.7) Basophils # (Auto) 0.1 x10^3/uL (0.0-0.2) Iron Level 55 ug/dL (50-170) Total Iron Binding Capacity 264 ug/dL (250-450) Iron Saturation 21 % (15-34) Ferritin 194 ng/mL (8-252) Vitamin B12 Level 455 pg/mL (247-911) Serum Folate 18.19 ng/ml (3.2-20.0) Assessment/Plan Assessment/Plan IMP V TACH ANEMIA ESRD COPD HTN PAD CHRONIC CHF NON COMPLIANCE PLAN HD [facility] EV[facility] HEART CATH ENC COMPLIANCE SUZY HOWARD MD Dec 15, 2016 11:24
[2016-12-15] MEDS ORDERED: LIDOCAINE 2% 20 ML VIAL. ONE (15:28)
[2016-12-15] MEDS ORDERED: IODIXANOL 320 MG/ML 100 ML VIAL. ONE (15:29)
[2016-12-15] MEDS ORDERED: PROCHLORPERAZINE 10 MG/2 ML VIAL. IV PRN (15:30)
[2016-12-15] MEDS ORDERED: PROCHLORPERAZINE 10 MG/2 ML VIAL. ONE (15:31)
[2016-12-15] MEDS ORDERED: MIDAZOLAM HCL/PF 2 MG/2 ML VIAL. ONE (15:53)
[2016-12-15] MEDS ORDERED: fentaNYL PF VIAL 250 MCG/5 ML VIAL ONE (15:54)
--- NOTE | 2016-12-15 15:57 | PDOC ---
MODERATE SEDATION ASSESSMENT RISKS/ALTERNATIVES Risks/Alternatives Risks and alternatives of this type of sedation and procedure discussed with: RISK/ALTERNATIVES: Patient H & P ON CHART H & P H & P on chart and reviewed for co-morbid conditions and appropriate labs. H&P ON CHART: Yes STATUS PREG STATUS ASSESSED: N/A MEDS/ALLERGIES REVIEWED Meds/Allergies Reviewed Medications and Allergies including time and route of recently administered narcotics and sedatives. MEDS/ALLERGIES REVIEWED: Yes ASA RATING ASA RATING: II AIRWAY ASSESSMENT Airway Assessment Airway patency, oral function limitations, presence of caps, crowns, dentures, partials, and ability to extend neck assessed. AIRWAY ASSESSMENT: Yes MALLAMPATI SCORE MALLAMPATI SCORE: II PRE-SEDATION ASSESSMENT PRE-SEDATION ASSESSMENT: Yes CARRIE STINSON MD Dec 15, 2016 15:57
[2016-12-15] MEDS ORDERED: BIVALIRUDIN 250 MG VIAL. IV ONE ×2 (16:22→16:45)
[2016-12-15] MEDS ORDERED: MIDAZOLAM HCL/PF 2 MG/2 ML VIAL. IV ONE (16:45)
[2016-12-15] MEDS ORDERED: LIDOCAINE 2% 20 ML VIAL. IJ ONE (16:45)
[2016-12-15] MEDS ORDERED: fentaNYL PF VIAL 250 MCG/5 ML VIAL IV ONE (16:45)
[2016-12-15] MEDS ORDERED: IODIXANOL 320 MG/ML 100 ML VIAL. IART ONE (16:45)
[2016-12-15] MEDS ORDERED: CONTRAST GIVEN MC PRN (16:45)
[2016-12-15] MEDS ORDERED: NITROGLYCERIN 200 MCG/2 ML SYRINGE FOR CATH/VASC LAB. ONE (17:00)
[2016-12-15] MEDS ORDERED: NITROGLYCERIN 200 MCG/2 ML SYRINGE FOR CATH/VASC LAB. IART ONE (17:30)
[2016-12-15] MEDS ORDERED: AMIODARONE 150 MG in IV DEXTROSE 5% 100 ML IV PRN (17:45)
[2016-12-15] MEDS ORDERED: ACETAMINOPHEN 325 MG TABLET. PO PRN (17:45)
[2016-12-15] MEDS ORDERED: NITROGLYCERIN SUBLINGUAL 0.4 MG BOTTLE OF 25. SL PRN (17:45)
--- NOTE | 2016-12-15 18:08 | CARD ---
APPROVED REPORT Procedure(s) performed: 1. Left heart catheterization and selective coronary angiography 2. Instant wave free ratio (IFR) to left anterior desceindng artery 3. Successful complex PCI/stents placement to the right coronary artery 4. Successful PCI/stent placement to the left anterior descending artery Moderate sedation: 121 minutes INDICATION The indication(s) include : Unstable angina, ventricular tachycardia, cardiac arrest. PROCEDURE NARRATIVE After explaining the risks, benefits and alternative options, informed consent was obtained from meggan ent. Patient was brought to the cardiac Iridologist and her left groin was prepped and draped in the usu al fashion. 20 mL of 2% lidocaine was infiltrated into the skin and subcutaneous tissues for local an esthesia. Arterial access was obtained in the left common femoral artery and a 6 Burmese sheath was in serted. 6 Burmese JL4 diagnostic catheter and 6 Burmese JR4 guide catheter with side holes were used to perform selective angiography of the left and right coronary arteries. LVEDP and transaortic gradien ts were measured. Left ventriculography was not performed due to renal insufficiency and contrast eri d used for intervention. Since patient was found to have angiographically borderline significant sten osis involving the left anterior descending artery, a decision was made to perform Instant wave free ratio (IFR) to assess the physiologic significance. The left main coronary artery was engaged with a 6 Burmese a.l. 0.75 guide catheter and the stenoses in the proximal and mid segments were crossed wit h a [place] Verrata PressureWire. IFR measurement was made that came back physiologically significant at 0.79. FINDINGS 1. Hemodynamics: Left ventricular end-diastolic pressure 24 mmHg. No pullback gradient across the a ortic valve. 2. Coronary angiography: a. The left main coronary artery arose from the left sinus of Valsalva, gave rise to the left anteri or descending and left circumflex arteries and did not show any significant stenosis. b. The left anterior descending artery showed 60-70% stenosis in the proximal segment and 70% in-phuong nt restenosis in the midsegment. These lesions were found to be physiologically significant based on IFR measurement of 0.79. c. The left circumflex artery showed 40-50% stenosis in the proximal segment of obtuse marginal bran ch. d. The right coronary artery was a dominant vessel arising from the right sinus of Valsalva that oscar wed a long and heavily calcified 70% stenosis involving the ostial, proximal, mid and mid to distal s egments. INTERVENTION The right coronary artery was engaged with a 6 Burmese JR4 guide catheter with sideholes. The long les ion in the ostial, proximal, mid and mid to distal segments was crossed with a 0.[address] guidewire. These lesions were predilated with a 2.5 x 30 mm trek balloon. Initial attempts to adv ance stents was unsuccessful secondary to heavy calcification. A 6 Burmese guide liner inner catheter was then advanced to the midsegment of the right coronary artery for extra backup support. Subsequent ly, these lesions were treated with overlapping 2.5 x 28 mm, 2.5 x 28 mm, 2.75 x 23 mm, 3.0 x 28 mm a nd 3.0 x 12 mm MultiLink vision stent. Follow-up angiography showed resolution of the stenoses to 0% with SCOTT-3 distal flow. Following this, the left main cornea artery was engaged with a 6 Burmese AL 0.75 guide catheter and IF R measurement was made as stated above using [place] Verrata PressureWire on the left anterior descen ding artery stenoses. These were found to be physiologically significant at 0.79. The in-stent resten osis in the left anterior descending artery was dilated with a 3.25 x 15 mm noncompliant NC trek ball oon. The proximal segment stenosis was treated successfully with a 3.0 x 12 mm MultiLink vision stent . Follow-up angiography showed resolution of both these stenoses to 0% with significant improvement i n IFR as well. Patient tolerated the procedure well. Hemostasis in the left groin was achieved using mynx closure device. There were no immediate complications. Conclusion 1. Two-vessel coronary artery disease as described above 2. Successful complex PCI/stents placement to the right coronary artery and successful PCI/stents pl acement to the left anterior descending artery Recommendations 1. Aspirin 325 mg daily 2. Plavix 75 mg daily 3. If patient continues to have ventricular tachycardia episodes despite the revascularization, cons ider referral to EP services for ablation therapy.
[2016-12-15] MEDS: AMIODARONE HCL 200 MG TABLET. PO SCH (18:40)
[2016-12-15] MEDS ORDERED: DARBEPOETIN ALFA 60 MCG/0.3 ML DISP.SYRIN. SQ SCH (21:00)
[2016-12-15] MEDS: CINACALCET HCL 30 MG TABLET PO SCH (21:50)
[2016-12-15] MEDS: ATORVASTATIN CALCIUM 10 MG TABLET. PO SCH (21:51)
[2016-12-15] MEDS: GABAPENTIN 300 MG CAPSULE. PO SCH (21:51)
[2016-12-15] MEDS: SERTRALINE 50 MG TABLET. PO SCH (21:51)
[2016-12-16] VITALS (14 sets, daily range): BP systolic 96–158; BP diastolic 52–73
[2016-12-16] MEDS: METOPROLOL TARTRATE 5 MG/5 ML VIAL. IVP SCH ×3 (00:16→12:00)
[2016-12-16] MEDS: MEXILETINE HCL 200 MG CAPSULE PO SCH (05:18)
[2016-12-16] MEDS: HEPARIN PF for SUB-Q USE 5,000 UNIT/0.5 ML VIAL. SQ SCH ×3 (05:19→21:22)
[2016-12-16 05:59] LABS: BASO # 0.1 x10^3/uL (0.0-0.2); BASO % 2 % (0-3); EOS % 2 % (0-3); HEMATOCRIT 25.4 % (36.0-47.0); HEMOGLOBIN 8.5 g/dL (12.0-15.5); LYMPH # 1.3 x10^3/uL (1.0-4.8); LYMPH % 17 % (24-48); MEAN CORPUSCULAR HEMOGLOBIN 31 pg (25-35); MEAN CORPUSCULAR HGB CONC 34 g/dL (31-37); MEAN CORPUSCULAR VOLUME 91 fL (79-100); MONO % 8 % (0-9); NEUT % 72 % (31-73); PLATELET COUNT 166 x10^3/uL (140-400); RED CELL DISTRIBUTION WIDTH 16.5 % (11.5-14.5); WHITE BLOOD COUNT 7.5 x10^3/uL (4.0-11.0)
[2016-12-16 06:13] LABS: CALCIUM 7.6 mg/dL (8.5-10.1); CREATININE 5.3 mg/dL (0.6-1.0); GFR 8.1; POTASSIUM 4.6 mmol/L (3.5-5.1)
[2016-12-16] MEDS: INSULIN ASPART 300 UNITS/3 ML INSULN.PEN SQ SCH ×3 (08:00→17:00)
[2016-12-16] MEDS: CALCIUM ACETATE 667 MG CAPSULE PO SCH ×3 (08:07→17:24)
[2016-12-16] MEDS: FOLIC/VIT B COMP W-C (RENAL) TABLET. PO SCH (08:07)
[2016-12-16] MEDS: CLOPIDOGREL BISULFATE 75 MG TABLET PO SCH (08:07)
[2016-12-16] MEDS: ASPIRIN ENTERIC COATED 81 MG TABLET.DR. PO SCH (08:07)
[2016-12-16] MEDS: CARVEDILOL 3.125 MG TABLET. PO SCH ×2 (08:08→17:24)
[2016-12-16] MEDS: FERROUS SULFATE 325 MG TABLET. PO SCH (08:08)
[2016-12-16] MEDS: AMIODARONE HCL 200 MG TABLET. PO SCH (08:09)
--- NOTE | 2016-12-16 11:34 | PDOC ---
PROGRESS NOTES Chief Complaint Chief Complaint ICD spikes with VT, non sustained chronic severe diastolic CHF, EF 55%, with uncontrolled HTN, pulmonary edema recent Acute respiratory failure with underlying COPD and possible JOSE ALFREDO normacytic Anemia, chronic likely, ESRD, CHF, cannot rule out GIB tho ESRD on HD ttsat HTN Hx of recent cardiac arrest/Vtach: S/P AICD/PPM (biotronik). h/o CAD: S/P PCI/BMS to LAD: 10/24 with subsequent LHC on 11/13/2016 with patent stent DM2/HLP Mod to severe MR: last noted 10/21/2016. PAD: RCFA stenosis with no claudication symptoms. w/u at a later date. Noncompliance, signed AMA from recently elevated troponin with ESRD mild malnutrition, low albumin with ESRD severe MR CAD with PCI 6 stents via [facility] (12/15) plan: card consulted on amiodarone drip in ER, hold po. lidocaine drip added cont mexitil tid cont other home meds cont HD, renal consult ICU care check hba1c, SSI anemia work up, pt not want GI at this time point Hb low at 7s , stable , no active bleeding, will get 1u PRBC transfusion today labs daily dvt ppx allergy to morphine, but ok to take lortab History of Present Illness History of Present Illness Asleep, did not awaken HAd 6 stents placed yesterday via C yesterday Went A[place] from [place] and did not take her cardiac meds x 2 days Known non compliance Wants reg diet when she has known cardiac and renal issues PALN: Ok to t/o CVC CPM Vitals Vitals Vital Signs Date Time Temp Pulse Resp B/P (MAP) Pulse Ox O2 Delivery O2 Flow Rate FiO2 12/16/16 11:00 60 10 119/58 (78) 98 Nasal Cannula 2.0 12/16/16 08:00 98.1 98.1 Physical Exam General: Alert, Oriented X3, Cooperative, No acute distress Heart: Regular rate Lungs: Clear, Other Abdomen: Normal bowel sounds, Soft, No tenderness Extremities: No clubbing, Other (AV ACCESS WITH A GOOD THRILL AND BRUIT.) Skin: No rashes Labs LABS Laboratory Tests Test 12/15/16 11:36 12/16/16 05:15 12/16/16 05:25 12/16/16 08:06 Glucose (Fingerstick) 166 mg/dL (70-99) 122 mg/dL (70-99) Sodium Level 139 mmol/L (136-145) Potassium Level 4.6 mmol/L (3.5-5.1) Chloride Level 103 mmol/L (98-107) Carbon Dioxide Level 28 mmol/L (21-32) Anion Gap 8 (6-14) Blood Urea Nitrogen 32 mg/dL (7-20) Creatinine 5.3 mg/dL (0.6-1.0) Estimated GFR (Cockcroft-Gault) 8.1 Glucose Level 112 mg/dL (70-99) Calcium Level 7.6 mg/dL (8.5-10.1) White Blood Count 7.5 x10^3/uL (4.0-11.0) Red Blood Count 2.80 x10^6/uL (3.50-5.40) Hemoglobin 8.5 g/dL (12.0-15.5) Hematocrit 25.4 % (36.0-47.0) Mean Corpuscular Volume 91 fL (79-100) Mean Corpuscular Hemoglobin 31 pg (25-35) Mean Corpuscular Hemoglobin Concent 34 g/dL (31-37) Red Cell Distribution Width 16.5 % (11.5-14.5) Platelet Count 166 x10^3/uL (140-400) Neutrophils (%) (Auto) 72 % (31-73) Lymphocytes (%) (Auto) 17 % (24-48) Monocytes (%) (Auto) 8 % (0-9) Eosinophils (%) (Auto) 2 % (0-3) Basophils (%) (Auto) 2 % (0-3) Neutrophils # (Auto) 5.4 x10^3uL (1.8-7.7) Lymphocytes # (Auto) 1.3 x10^3/uL (1.0-4.8) Monocytes # (Auto) 0.6 x10^3/uL (0.0-1.1) Eosinophils # (Auto) 0.1 x10^3/uL (0.0-0.7) Basophils # (Auto) 0.1 x10^3/uL (0.0-0.2) Review of Systems Review of Systems asleep Assessment and Plan Assessmemt and Plan Problems Medical Problems: (1) Ventricular tachycardia Status: Acute Problems: Comment Review of Relevant I have reviewed the following items ashley (where applicable) has been applied. Labs Laboratory Tests Test 12/14/16 12:58 12/14/16 16:10 12/14/16 16:31 12/14/16 19:10 White Blood Count 5.9 x10^3/uL (4.0-11.0) Red Blood Count 2.43 x10^6/uL (3.50-5.40) Hemoglobin 7.3 g/dL (12.0-15.5) Hematocrit 23.1 % (36.0-47.0) Mean Corpuscular Volume 95 fL (79-100) Mean Corpuscular Hemoglobin 30 pg (25-35) Mean Corpuscular Hemoglobin Concent 32 g/dL (31-37) Red Cell Distribution Width 17.5 % (11.5-14.5) Platelet Count 166 x10^3/uL (140-400) Neutrophils (%) (Auto) 64 % (31-73) Lymphocytes (%) (Auto) 24 % (24-48) Monocytes (%) (Auto) 8 % (0-9) Eosinophils (%) (Auto) 4 % (0-3) Basophils (%) (Auto) 1 % (0-3) Neutrophils # (Auto) 3.8 x10^3uL (1.8-7.7) Lymphocytes # (Auto) 1.4 x10^3/uL (1.0-4.8) Monocytes # (Auto) 0.5 x10^3/uL (0.0-1.1) Eosinophils # (Auto) 0.2 x10^3/uL (0.0-0.7) Basophils # (Auto) 0.0 x10^3/uL (0.0-0.2) Sodium Level 143 mmol/L (136-145) Potassium Level 4.2 mmol/L (3.5-5.1) Chloride Level 104 mmol/L (98-107) Carbon Dioxide Level 27 mmol/L (21-32) Anion Gap 12 (6-14) Blood Urea Nitrogen 24 mg/dL (7-20) Creatinine 4.1 mg/dL (0.6-1.0) Estimated GFR (Cockcroft-Gault) 10.9 Glucose Level 225 mg/dL (70-99) Calcium Level 8.0 mg/dL (8.5-10.1) Magnesium Level 1.8 mg/dL (1.8-2.4) Total Bilirubin 0.2 mg/dL (0.2-1.0) Direct Bilirubin < 0.1 mg/dL (0.0-0.2) Aspartate Amino Transf (AST/SGOT) 17 U/L (15-37) Alanine Aminotransferase (ALT/SGPT) 16 U/L (14-59) Alkaline Phosphatase 126 U/L (46-116) Creatine Kinase 82 U/L (26-192) Creatine Kinase MB (Mass) 1.3 ng/mL (0.0-3.6) Creatine Kinase MB Relative Index 1.6 % (0-4) Troponin I Quantitative 0.864 ng/mL (0.000-0.055) 0.955 ng/mL (0.000-0.055) 0.960 ng/mL (0.000-0.055) Total Protein 5.4 g/dL (6.4-8.2) Albumin 2.6 g/dL (3.4-5.0) Glucose (Fingerstick) 160 mg/dL (70-99) Test 12/14/16 22:55 12/15/16 04:10 12/15/16 11:36 12/16/16 05:15 White Blood Count 6.9 x10^3/uL (4.0-11.0) 7.3 x10^3/uL (4.0-11.0) Red Blood Count 2.38 x10^6/uL (3.50-5.40) 2.48 x10^6/uL (3.50-5.40) Hemoglobin 7.1 g/dL (12.0-15.5) 7.4 g/dL (12.0-15.5) Hematocrit 21.9 % (36.0-47.0) 23.0 % (36.0-47.0) Mean Corpuscular Volume 92 fL (79-100) 93 fL (79-100) Mean Corpuscular Hemoglobin 30 pg (25-35) 30 pg (25-35) Mean Corpuscular Hemoglobin Concent 33 g/dL (31-37) 32 g/dL (31-37) Red Cell Distribution Width 16.6 % (11.5-14.5) 16.9 % (11.5-14.5) Platelet Count 172 x10^3/uL (140-400) 198 x10^3/uL (140-400) Sodium Level 142 mmol/L (136-145) 141 mmol/L (136-145) 139 mmol/L (136-145) Potassium Level 3.7 mmol/L (3.5-5.1) 4.1 mmol/L (3.5-5.1) 4.6 mmol/L (3.5-5.1) Chloride Level 106 mmol/L (98-107) 105 mmol/L (98-107) 103 mmol/L (98-107) Carbon Dioxide Level 29 mmol/L (21-32) 28 mmol/L (21-32) 28 mmol/L (21-32) Anion Gap 7 (6-14) 8 (6-14) 8 (6-14) Blood Urea Nitrogen 27 mg/dL (7-20) 27 mg/dL (7-20) 32 mg/dL (7-20) Creatinine 4.2 mg/dL (0.6-1.0) 4.5 mg/dL (0.6-1.0) 5.3 mg/dL (0.6-1.0) Estimated GFR (Cockcroft-Gault) 10.6 9.8 8.1 BUN/Creatinine Ratio 6 (6-20) Glucose Level 119 mg/dL (70-99) 160 mg/dL (70-99) 112 mg/dL (70-99) Calcium Level 8.4 mg/dL (8.5-10.1) 8.2 mg/dL (8.5-10.1) 7.6 mg/dL (8.5-10.1) Magnesium Level 2.2 mg/dL (1.8-2.4) Total Bilirubin 0.2 mg/dL (0.2-1.0) Aspartate Amino Transf (AST/SGOT) 17 U/L (15-37) Alanine Aminotransferase (ALT/SGPT) 15 U/L (14-59) Alkaline Phosphatase 114 U/L (46-116) Total Protein 5.6 g/dL (6.4-8.2) Albumin 2.5 g/dL (3.4-5.0) Albumin/Globulin Ratio 0.8 (1.0-1.7) Neutrophils (%) (Auto) 59 % (31-73) Lymphocytes (%) (Auto) 27 % (24-48) Monocytes (%) (Auto) 8 % (0-9) Eosinophils (%) (Auto) 4 % (0-3) Basophils (%) (Auto) 2 % (0-3) Neutrophils # (Auto) 4.3 x10^3uL (1.8-7.7) Lymphocytes # (Auto) 2.0 x10^3/uL (1.0-4.8) Monocytes # (Auto) 0.6 x10^3/uL (0.0-1.1) Eosinophils # (Auto) 0.3 x10^3/uL (0.0-0.7) Basophils # (Auto) 0.1 x10^3/uL (0.0-0.2) Hemoglobin A1c 5.3 % (4.8-5.6) Iron Level 55 ug/dL (50-170) Total Iron Binding Capacity 264 ug/dL (250-450) Iron Saturation 21 % (15-34) Ferritin 194 ng/mL (8-252) Vitamin B12 Level 455 pg/mL (247-911) Serum Folate 18.19 ng/ml (3.2-20.0) Glucose (Fingerstick) 166 mg/dL (70-99) Test 12/16/16 05:25 12/16/16 08:06 White Blood Count 7.5 x10^3/uL (4.0-11.0) Red Blood Count 2.80 x10^6/uL (3.50-5.40) Hemoglobin 8.5 g/dL (12.0-15.5) Hematocrit 25.4 % (36.0-47.0) Mean Corpuscular Volume 91 fL (79-100) Mean Corpuscular Hemoglobin 31 pg (25-35) Mean Corpuscular Hemoglobin Concent 34 g/dL (31-37) Red Cell Distribution Width 16.5 % (11.5-14.5) Platelet Count 166 x10^3/uL (140-400) Neutrophils (%) (Auto) 72 % (31-73) Lymphocytes (%) (Auto) 17 % (24-48) Monocytes (%) (Auto) 8 % (0-9) Eosinophils (%) (Auto) 2 % (0-3) Basophils (%) (Auto) 2 % (0-3) Neutrophils # (Auto) 5.4 x10^3uL (1.8-7.7) Lymphocytes # (Auto) 1.3 x10^3/uL (1.0-4.8) Monocytes # (Auto) 0.6 x10^3/uL (0.0-1.1) Eosinophils # (Auto) 0.1 x10^3/uL (0.0-0.7) Basophils # (Auto) 0.1 x10^3/uL (0.0-0.2) Glucose (Fingerstick) 122 mg/dL (70-99) Laboratory Tests Test 12/15/16 11:36 12/16/16 05:15 12/16/16 05:25 12/16/16 08:06 Glucose (Fingerstick) 166 mg/dL (70-99) 122 mg/dL (70-99) Sodium Level 139 mmol/L (136-145) Potassium Level 4.6 mmol/L (3.5-5.1) Chloride Level 103 mmol/L (98-107) Carbon Dioxide Level 28 mmol/L (21-32) Anion Gap 8 (6-14) Blood Urea Nitrogen 32 mg/dL (7-20) Creatinine 5.3 mg/dL (0.6-1.0) Estimated GFR (Cockcroft-Gault) 8.1 Glucose Level 112 mg/dL (70-99) Calcium Level 7.6 mg/dL (8.5-10.1) White Blood Count 7.5 x10^3/uL (4.0-11.0) Red Blood Count 2.80 x10^6/uL (3.50-5.40) Hemoglobin 8.5 g/dL (12.0-15.5) Hematocrit 25.4 % (36.0-47.0) Mean Corpuscular Volume 91 fL (79-100) Mean Corpuscular Hemoglobin 31 pg (25-35) Mean Corpuscular Hemoglobin Concent 34 g/dL (31-37) Red Cell Distribution Width 16.5 % (11.5-14.5) Platelet Count 166 x10^3/uL (140-400) Neutrophils (%) (Auto) 72 % (31-73) Lymphocytes (%) (Auto) 17 % (24-48) Monocytes (%) (Auto) 8 % (0-9) Eosinophils (%) (Auto) 2 % (0-3) Basophils (%) (Auto) 2 % (0-3) Neutrophils # (Auto) 5.4 x10^3uL (1.8-7.7) Lymphocytes # (Auto) 1.3 x10^3/uL (1.0-4.8) Monocytes # (Auto) 0.6 x10^3/uL (0.0-1.1) Eosinophils # (Auto) 0.1 x10^3/uL (0.0-0.7) Basophils # (Auto) 0.1 x10^3/uL (0.0-0.2) Medications Current Medications Amiodarone HCl 150 mg/Dextrose 103 ml @ 618 mls/hr 1X ONCE IV Last administered on 12/14/16 13:35; Start 12/14/16 at 13:30; Stop 12/14/16 at 13:39 ; Status DC Amiodarone HCl 900 mg/Dextrose 518 ml @ 0 mls/hr CONT PRN IV SEE I/O RECORD Last administered on 12/14/16 13:50; Start 12/14/16 at 13:30; Stop 12/14/16 at 13:52; Status DC Amiodarone HCl (Cordarone) 150 mg STK-MED ONCE .ROUTE ; Start 12/14/16 at 13:22 ; Stop 12/14/16 at 13:23; Status DC Mexiletine HCl (Mexitil) 200 mg Q8HRS PO ; Start 12/14/16 at 15:00; Status Cancel Magnesium Sulfate/ Dextrose 50 ml @ 25 mls/hr 1X ONCE IV Last administered on 12/14/16 17:15; Start 12/14/16 at 17:00; Stop 12/14/16 at 18:59; Status DC Alprazolam (Xanax) 0.25 mg PRN DAILY PRN PO ANXIETY / AGITATION Last administered on 12/14/16 20:48; Start 12/14/16 at 16:00 Aspirin (Ecotrin) 81 mg DAILY PO Last administered on 12/16/16 08:07; Start at 09:00 Atorvastatin Calcium (Lipitor) 10 mg QHS PO Last administered on 12/15/16 21: 51; Start 12/14/16 at 21:00 Carvedilol (Coreg) 3.125 mg BIDWMEALS PO Last administered on 12/16/16 08:08; Start 12/14/16 at 17:00 Cinacalcet (Sensipar) 30 mg QHS PO Last administered on 12/15/16 21:50; Start 12/14/16 at 21:00 Clopidogrel Bisulfate (Plavix) 75 mg DAILY PO Last administered on 12/16/16 08 :07; Start 12/15/16 at 09:00 Mexiletine HCl (Mexitil) 200 mg Q8HRS PO Last administered on 12/16/16 05:18; Start 12/14/16 at 16:30; Stop 12/16/16 at 08:00; Status DC Sertraline HCl (Zoloft) 50 mg QHS PO Last administered on 12/15/16 21:51; Start 12/14/16 at 21:00 Calcium Acetate (Phoslo) 1,334 mg TIDWMEALS PO Last administered on 12/16/16 08:07; Start 12/14/16 at 17:00 Gabapentin (Neurontin) 300 mg DAILY PO ; Start 12/15/16 at 09:00; Stop 12/15/16 at 09:00; Status DC Vitamin B Complex/ Vitamin C (Alayna-Oneil) 1 tab DAILY PO Last administered on 08:07; Start 12/15/16 at 09:00 Acetaminophen (Tylenol) 650 mg PRN Q6HRS PRN PO FEVER; Start 12/14/16 at 16:00 Ondansetron HCl (Zofran) 4 mg PRN Q6HRS PRN IV NAUSEA/VOMITING Last administered on 12/15/16 15:02; Start 12/14/16 at 16:00 Hydralazine HCl (Apresoline) 10 mg PRN Q4HRS PRN IVP ELEVATED BP, SEE COMMENTS ; Start 12/14/16 at 16:00 Docusate Sodium (Colace) 100 mg PRN DAILY PRN PO CONSTIPATION; Start 12/14/16 at 16:00 Heparin Sodium (Porcine) (Heparin Sq) 5,000 unit Q8HRS SQ Last administered on 12/16/16 05:19; Start 12/14/16 at 16:15 Insulin Aspart (NovoLOG) 0-9 UNITS TIDWMEALS SQ Last administered on 12/14/16 17:48; Start 12/14/16 at 17:00 Dextrose (Dextrose 50%-Water Syringe) 12.5 gm PRN Q15MIN PRN IV SEE COMMENTS; Start 12/14/16 at 16:15 Gabapentin (Neurontin) 300 mg QHS PO Last administered on 12/15/16 21:51; Start 12/14/16 at 21:00 Metoprolol Tartrate (Lopressor) 10 mg Q6HRS IVP Last administered on 12/16/16 05:18; Start 12/15/16 at 00:15 Lidocaine HCl/ Dextrose 500 ml @ 0 mls/hr CONT PRN IV SEE I/O RECORD Last administered on 12/15/16 04:09; Start 12/15/16 at 04:15; Stop 12/15/16 at 17:49 ; Status DC Lorazepam (Ativan) Give to reduce excitibi... PRN Q4HRS PRN IV ANXIETY / AGITATION; Start 12/15/16 at 04:30 Fentanyl Citrate (Fentanyl 2ml Vial) 25 mcg PRN Q2HR PRN IV PAIN; Start at 04:30 Fentanyl Citrate (Fentanyl 2ml Vial) 50 mcg PRN Q2HR PRN IV PAIN; Start at 04:45 Acetaminophen/ Hydrocodone Bitart (Lortab 10/325) 1 tab PRN Q6HRS PRN PO PAIN Last administered on 12/15/16 05:42; Start 12/15/16 at 05:30 Ferrous Sulfate (Feosol) 325 mg DAILYWBKFT PO Last administered on 12/16/16 08 :08; Start 12/15/16 at 08:00 Darbepoetin Jaskaran (Aranesp) 60 mcg WEEKLYHS SQ Last administered on 12/15/16 21 :51; Start 12/15/16 at 21:00 Lidocaine HCl 20 ml STK-MED ONCE .ROUTE ; Start 12/15/16 at 15:28; Stop at 15:29; Status DC Heparin Sodium/ Sodium Chloride 500 ml @ As Directed STK-MED ONCE .ROUTE ; Start 12/15/16 at 15:29; Stop 12/15/16 at 15:30; Status DC Iodixanol (Visipaque 320) 100 ml STK-MED ONCE .ROUTE ; Start 12/15/16 at 15:29; Stop 12/15/16 at 15:30; Status DC Prochlorperazine Edisylate (Compazine) 10 mg PRN Q6HRS PRN IV NAUSEA/VOMITING; Start 12/15/16 at 15:30 Prochlorperazine Edisylate (Compazine) 10 mg STK-MED ONCE .ROUTE ; Start at 15:31; Stop 12/15/16 at 15:32; Status DC Midazolam HCl (Versed) 2 mg STK-MED ONCE .ROUTE ; Start 12/15/16 at 15:53; Stop 12/15/16 at 15:54; Status DC Fentanyl Citrate (Fentanyl 5ml Vial) 250 mcg STK-MED ONCE .ROUTE ; Start at 15:54; Stop 12/15/16 at 15:55; Status DC Bivalirudin (Angiomax) 250 mg STK-MED ONCE IV ; Start 12/15/16 at 16:22; Stop at 16:23; Status DC Heparin Sodium/ Sodium Chloride 1,000 unit 1X ONCE IART Last administered on 17:35; Start 12/15/16 at 16:45; Stop 12/15/16 at 16:46; Status DC Midazolam HCl (Versed) 2 mg 1X ONCE IV Last administered on 12/15/16 17:36; Start 12/15/16 at 16:45; Stop 12/15/16 at 16:46; Status DC Fentanyl Citrate (Fentanyl 5ml Vial) 50 mcg 1X ONCE IV Last administered on 17:36; Start 12/15/16 at 16:45; Stop 12/15/16 at 16:46; Status DC Iodixanol (Visipaque 320) 100 ml 1X ONCE IART Last administered on 12/15/16 17:34; Start 12/15/16 at 16:45; Stop 12/15/16 at 16:46; Status DC Bivalirudin (Angiomax) 250 mg 1X ONCE IV Last administered on 12/15/16 17:35 ; Start 12/15/16 at 16:45; Stop 12/15/16 at 16:46; Status DC Lidocaine HCl 18 ml 1X ONCE IJ Last administered on 12/15/16 17:35; Start at 16:45; Stop 12/15/16 at 16:46; Status DC Info (Do NOT chart on this entry -- for MONITORING) 1 each PRN DAILY PRN MC SEE COMMENTS; Start 12/15/16 at 16:45; Stop 12/17/16 at 16:44 Nitroglycerin (Nitroglycerin) 200 mcg STK-MED ONCE .ROUTE ; Start 12/15/16 at 17 :00; Stop 12/15/16 at 17:01; Status DC Nitroglycerin (Nitroglycerin) 200 mcg 1X ONCE IART Last administered on 17:35; Start 12/15/16 at 17:30; Stop 12/15/16 at 17:31; Status DC Acetaminophen (Tylenol) 650 mg PRN Q6HRS PRN PO MILD PAIN / TEMP; Start at 17:45; Status UNV Nitroglycerin (Nitrostat) 0.4 mg PRN Q5MIN PRN SL CHEST PAIN; Start 12/15/16 at 17:45 Amiodarone HCl 150 mg/Dextrose 103 ml @ 10 mls/min 1X PRN PRN IV FOR VENTRICULAR TACHYCARDIA; Start 12/15/16 at 17:45 Amiodarone HCl (Cordarone) 200 mg DAILY PO Last administered on 12/16/16 08:09 ; Start 12/15/16 at 18:00 Active Scripts Active Mexiletine Hcl 200 Mg Capsule 200 Mg PO Q8HRS 30 Days Atorvastatin Calcium 10 Mg Tablet 10 Mg PO QHS 30 Days Amiodarone Hcl 200 Mg Tablet 200 Mg PO DAILY 30 Days Carvedilol 3.125 Mg Tablet 3.125 Mg PO BIDWMEALS Reported Sertraline Hcl 50 Mg Tablet 50 Mg PO QHS Sensipar (Cinacalcet Hcl) 30 Mg Tablet 1 Tab PO QHS Alayna-Oneil Rx Tablet (Vit B Cmplx 3/Fa/Vit C/Biotin) 1 Each Tablet 1 Each PO DAILY Cranberry Plus Vitamin C Sftgl (Cranberry Conc/Ascorbic Acid) 1 Each Capsule 1 Each PO DAILY Coricidin Hbp Tablet (Acetaminophen/Chlorpheniramine) 1 Each Tablet 1 Each PO PRN Alprazolam 0.25 Mg Tablet 1 Tab PO DAILY PRN Plavix (Clopidogrel Bisulfate) 75 Mg Tablet 75 Mg PO DAILY Calcium Acetate 667 Mg Tablet 2 Tab PO TIDWMEALS last dose was this am next dose is wiith supper Tylenol Extra Strength (Acetaminophen) 500 Mg Tablet 500 Mg PO PRN Q12HRS PRN not given in hospital may resume when needed Gabapentin 300 Mg Capsule 300 Mg PO DAILY Benadryl Allergy (Diphenhydramine Hcl) 25 Mg Tablet 25 Mg PO PRN not given in the hospital Aspir 81 (Aspirin) 81 Mg Tablet.dr 81 Mg PO DAILY last dose was this am resume in am Vitals/I & O Vital Sign - Last 24 Hours 12/15/16 12/15/16 12/15/16 12/15/16 12:00 12:00 12:25 13:00 Temp 98.0 98.0 Pulse 60 60 60 Resp 16 8 B/P (MAP) 150/68 (95) 157/69 153/70 (97) Pulse Ox 98 100 O2 Delivery Nasal Cannula Nasal Cannula Nasal Cannula O2 Flow Rate 2.0 2.0 2.0 12/15/16 12/15/16 12/15/16 12/15/16 14:00 15:00 17:36 17:59 Pulse 60 60 60 Resp 17 16 12 14 B/P (MAP) 138/61 (86) 147/71 (96) Pulse Ox 93 94 99 99 O2 Delivery Nasal Cannula Nasal Cannula Nasal Cannula Nasal Cannula O2 Flow Rate 2.0 2.0 3.0 3.0 12/15/16 12/15/16 12/15/16 12/15/16 18:00 18:15 18:30 18:40 Temp 97.7 97.7 Pulse 60 60 60 60 Resp 14 16 18 B/P (MAP) 121/70 (87) 163/81 (108) 131/49 (76) 131/49 Pulse Ox 98 99 98 O2 Delivery Nasal Cannula Nasal Cannula Nasal Cannula O2 Flow Rate 2.0 2.0 2.0 12/15/16 12/15/16 12/15/16 12/15/16 18:40 18:41 19:00 20:00 Temp 98.0 98.0 Pulse 60 60 60 60 Resp 12 13 B/P (MAP) 131/49 131/49 157/73 (101) 144/62 (89) Pulse Ox 100 100 O2 Delivery Nasal Cannula Nasal Cannula O2 Flow Rate 2.0 2.0 12/15/16 12/15/16 12/15/16 12/15/16 20:00 21:00 22:00 23:00 Pulse 60 60 70 Resp 12 15 14 B/P (MAP) 134/60 (84) 162/70 (100) 141/68 (92) Pulse Ox 100 100 100 O2 Delivery Nasal Cannula Nasal Cannula Nasal Cannula Nasal Cannula O2 Flow Rate 2.0 2.0 2.0 2.0 12/15/16 12/16/16 12/16/16 12/16/16 23:59 00:00 00:16 01:00 Temp 97.8 97.8 Pulse 60 60 60 Resp 10 15 B/P (MAP) 140/66 (90) 140/67 141/63 (89) Pulse Ox 100 98 O2 Delivery Nasal Cannula Nasal Cannula Nasal Cannula O2 Flow Rate 2.0 2.0 2.0 12/16/16 12/16/16 12/16/16 12/16/16 02:00 03:00 03:59 04:00 Temp 98.0 98.0 Pulse 60 60 60 Resp 10 13 13 B/P (MAP) 136/69 (91) 119/66 (83) 130/61 (84) Pulse Ox 99 100 100 O2 Delivery Nasal Cannula Nasal Cannula Nasal Cannula Nasal Cannula O2 Flow Rate 2.0 2.0 2.0 2.0 12/16/16 12/16/16 12/16/16 12/16/16 05:00 05:18 06:00 07:00 Pulse 60 60 63 60 Resp 15 12 6 B/P (MAP) 127/61 (83) 127/61 142/60 (87) 144/61 (88) Pulse Ox 96 100 100 O2 Delivery Nasal Cannula Nasal Cannula Nasal Cannula O2 Flow Rate 2.0 2.0 2.0 12/16/16 12/16/16 12/16/16 12/16/16 08:00 08:00 08:08 08:09 Temp 98.1 98.1 Pulse 60 60 60 Resp 8 B/P (MAP) 129/61 (83) 144/61 144/61 Pulse Ox 97 O2 Delivery Nasal Cannula Nasal Cannula O2 Flow Rate 2.0 2.0 12/16/16 12/16/16 12/16/16 09:00 10:00 11:00 Pulse 60 60 60 Resp 9 7 10 B/P (MAP) 139/67 (91) 96/52 (67) 119/58 (78) Pulse Ox 96 97 98 O2 Delivery Nasal Cannula Nasal Cannula Nasal Cannula O2 Flow Rate 2.0 2.0 2.0 Intake and Output 12/16/16 12/16/16 12/17/16 15:00 23:00 07:00 Intake Total 250 ml Balance 250 ml MICHELLE DOWD MD Dec 16, 2016 11:34
--- NOTE | 2016-12-16 12:02 | PDOC ---
Renal-Progress Notes Subjective Notes Notes FEELING BETTER History of Present Illness Hx of present illness STABLE Vitals Vitals Vital Signs Date Time Temp Pulse Resp B/P (MAP) Pulse Ox O2 Delivery O2 Flow Rate FiO2 12/16/16 11:00 60 10 119/58 (78) 98 Nasal Cannula 2.0 12/16/16 08:00 98.1 98.1 Weight Weight [ ] I.O. Intake and Output Intake and Output 12/17/16 07:00 Intake Total 250 ml Balance 250 ml Intake Oral 250 ml Labs Labs Laboratory Tests Test 12/16/16 05:15 12/16/16 05:25 12/16/16 08:06 Sodium Level 139 mmol/L (136-145) Potassium Level 4.6 mmol/L (3.5-5.1) Chloride Level 103 mmol/L (98-107) Carbon Dioxide Level 28 mmol/L (21-32) Anion Gap 8 (6-14) Blood Urea Nitrogen 32 mg/dL (7-20) Creatinine 5.3 mg/dL (0.6-1.0) Estimated GFR (Cockcroft-Gault) 8.1 Glucose Level 112 mg/dL (70-99) Calcium Level 7.6 mg/dL (8.5-10.1) White Blood Count 7.5 x10^3/uL (4.0-11.0) Red Blood Count 2.80 x10^6/uL (3.50-5.40) Hemoglobin 8.5 g/dL (12.0-15.5) Hematocrit 25.4 % (36.0-47.0) Mean Corpuscular Volume 91 fL (79-100) Mean Corpuscular Hemoglobin 31 pg (25-35) Mean Corpuscular Hemoglobin Concent 34 g/dL (31-37) Red Cell Distribution Width 16.5 % (11.5-14.5) Platelet Count 166 x10^3/uL (140-400) Neutrophils (%) (Auto) 72 % (31-73) Lymphocytes (%) (Auto) 17 % (24-48) Monocytes (%) (Auto) 8 % (0-9) Eosinophils (%) (Auto) 2 % (0-3) Basophils (%) (Auto) 2 % (0-3) Neutrophils # (Auto) 5.4 x10^3uL (1.8-7.7) Lymphocytes # (Auto) 1.3 x10^3/uL (1.0-4.8) Monocytes # (Auto) 0.6 x10^3/uL (0.0-1.1) Eosinophils # (Auto) 0.1 x10^3/uL (0.0-0.7) Basophils # (Auto) 0.1 x10^3/uL (0.0-0.2) Glucose (Fingerstick) 122 mg/dL (70-99) Review of Systems Constitutional: yes: weakness, alert, oriented Ears/Nose/Throat: Yes: no symptom reported Eyes: Yes: no symptom reported Cardiovascular: Yes no symptom reported, Yes palpitations Genitourinary: Yes: no symptom reported Musculoskeletal: Yes: no symptom reported Skin: Yes no symptom reported Psychiatric/Neurological: Yes: no symptom reported Endocrine: Yes: no symptom reported Physical Exam General Appearance: no apparent distress Skin: warm Respiratory: bilateral CTA Heart: S1S2, RRR Abdomen: soft Genitourinary: bladder flat Extremities: pulses present Neurology: alert, oriented Musculoskeletal: Other Assessment Assessment IMP CAD S/P PTCA AND STENT ANEMIA ESRD NON COMPLIANCE V TACH HTN PLAN HD TODAY UF TO DW ENC COMPLIANCE SUZY HOWARD MD Dec 16, 2016 12:02
[2016-12-16] MEDS ORDERED: IV NORMAL SALINE 1000ML BAG 1,000 ML IV PRN (14:40)
[2016-12-16] MEDS ORDERED: DIALYSIS PATIENT. MC PRN ×2 (14:45)
--- NOTE | 2016-12-16 16:42 | PDOC ---
ESTEPHANIA JACOBO [employer] 12/16/16 1642: CARDIO Progress Notes Date and Time Date of Service 12/16/16 Time of Evaluation 1015 Subjective Subjective: No Chest Pain, No shortness of breath, No Palpitations Vitals Vitals Vital Signs Date Time Temp Pulse Resp B/P (MAP) Pulse Ox O2 Delivery O2 Flow Rate FiO2 12/16/16 15:00 98.5 60 6 145/59 (87) 98 Nasal Cannula 2.0 98.5 Weight Weight [ ] Input and Output Intake and Output Intake and Output 12/17/16 07:00 Intake Total 550 ml Balance 550 ml Intake Oral 550 ml Laboratory Labs Laboratory Tests Test 12/16/16 05:15 12/16/16 05:25 12/16/16 08:06 12/16/16 12:21 Sodium Level 139 mmol/L (136-145) Potassium Level 4.6 mmol/L (3.5-5.1) Chloride Level 103 mmol/L (98-107) Carbon Dioxide Level 28 mmol/L (21-32) Anion Gap 8 (6-14) Blood Urea Nitrogen 32 mg/dL (7-20) Creatinine 5.3 mg/dL (0.6-1.0) Estimated GFR (Cockcroft-Gault) 8.1 Glucose Level 112 mg/dL (70-99) Calcium Level 7.6 mg/dL (8.5-10.1) White Blood Count 7.5 x10^3/uL (4.0-11.0) Red Blood Count 2.80 x10^6/uL (3.50-5.40) Hemoglobin 8.5 g/dL (12.0-15.5) Hematocrit 25.4 % (36.0-47.0) Mean Corpuscular Volume 91 fL (79-100) Mean Corpuscular Hemoglobin 31 pg (25-35) Mean Corpuscular Hemoglobin Concent 34 g/dL (31-37) Red Cell Distribution Width 16.5 % (11.5-14.5) Platelet Count 166 x10^3/uL (140-400) Neutrophils (%) (Auto) 72 % (31-73) Lymphocytes (%) (Auto) 17 % (24-48) Monocytes (%) (Auto) 8 % (0-9) Eosinophils (%) (Auto) 2 % (0-3) Basophils (%) (Auto) 2 % (0-3) Neutrophils # (Auto) 5.4 x10^3uL (1.8-7.7) Lymphocytes # (Auto) 1.3 x10^3/uL (1.0-4.8) Monocytes # (Auto) 0.6 x10^3/uL (0.0-1.1) Eosinophils # (Auto) 0.1 x10^3/uL (0.0-0.7) Basophils # (Auto) 0.1 x10^3/uL (0.0-0.2) Glucose (Fingerstick) 122 mg/dL (70-99) 156 mg/dL (70-99) Review of Systems Constitutional: yes: weakness, alert, oriented Ears/Nose/Throat: Yes: no symptom reported Eyes: Yes: no symptom reported Cardiovascular: Yes no symptom reported, Yes palpitations Genitourinary: Yes: no symptom reported Musculoskeletal: Yes: no symptom reported Skin: Yes no symptom reported Psychiatric/Neurological: Yes: no symptom reported Endocrine: Yes: no symptom reported Physical Exam HEENT: Neck Supple W Full Motion Chest: Symmetric LUNGS: Clear to Auscultation Heart: S1S2, RRR, murmurs (3/6 systolic murmur ) Abdomen: Soft N/T Extremities: No Edema, Other (right femoral arteriotomy site soft, clean, and dry. No erythema, ecchymosis, or hematoma present. Neurovascular status intact. ) Neurology: alert, oriented, follow commands Assessment Assessment 1. NSTEMI; troponin peak 0.966 2. CAD; S/p previous PCI/BMS to LAD. Cardiac cath yesterday revealed two- vessel disease. S/p successful PCI/stents to the RCA and LAD. 3. Chronic diastolic HF; LVEF 50%. compensated. Continue fluid offloading/ management via HD as per nephrology 4. ESRD on HD. 5. Hypertension; well-controlled 6. Hx of recent cardiac arrest/Vtach: S/P AICD (Biotronik). recent interrogation with normal device function 7. Hyperlipidemia; statin therapy 8. Diabetes; as per IMHLP Recommendations Continue secondary prevention measures including DAPT with ASA and Plavix Cardiac rehab referral Discontinue Mexiletine as patient has not had any further significant arrhythmias. continue Amiodarone. Consider EP referral if recurrent VT despite revascularization. Supportive care. CARRIE STINSON MD 12/16/16 1728: CARDIO Progress Notes Assessment Assessment Patient seen and examined. Agree with ACCESS CONTROL OFFICER's assessment and plan. s/p PCI/stents to RCA and LAD, stable Telemetry showed one episode of nonsustained ventricular tachycardia Off lidocaine and mexiletine. Continue amiodarone. If she has further episodes of VT/VF, we will consider EP referral for outpatient therapy. ESTEPHANIA JACOBO APRN Dec 16, 2016 16:42 CARRIE STINSON MD Dec 16, 2016 17:28
[2016-12-16] MEDS ORDERED: MAGNESIUM SULFATE 2GM 50 ML IV ONE (17:30)
[2016-12-16] MEDS ORDERED: AMIODARONE 900 MG in IV DEXTROSE 5% 500 ML IV PRN (19:15)
[2016-12-16] MEDS ORDERED: AMIODARONE 75 MG in IV DEXTROSE 5% 100 ML IV ONE (19:30)
[2016-12-16] MEDS: GABAPENTIN 300 MG CAPSULE. PO SCH (21:21)
[2016-12-16] MEDS: ATORVASTATIN CALCIUM 10 MG TABLET. PO SCH (21:21)
[2016-12-16] MEDS: SERTRALINE 50 MG TABLET. PO SCH (21:21)
[2016-12-16] MEDS: CINACALCET HCL 30 MG TABLET PO SCH (21:21)
[2016-12-17] VITALS: BP 157/68
[2016-12-17 04:00] VITALS: BP 123/52
[2016-12-17] MEDS: HEPARIN PF for SUB-Q USE 5,000 UNIT/0.5 ML VIAL. SQ SCH ×3 (05:48→22:25)
[2016-12-17 08:00] VITALS: BP 103/73
[2016-12-17] MEDS: INSULIN ASPART 300 UNITS/3 ML INSULN.PEN SQ SCH ×3 (08:00→17:01)
[2016-12-17 08:38] LABS: BASO # 0.1 x10^3/uL (0.0-0.2); BASO % 1 % (0-3); EOS % 2 % (0-3); HEMATOCRIT 23.7 % (36.0-47.0); HEMOGLOBIN 7.8 g/dL (12.0-15.5); LYMPH # 1.4 x10^3/uL (1.0-4.8); LYMPH % 21 % (24-48); MEAN CORPUSCULAR HEMOGLOBIN 30 pg (25-35); MEAN CORPUSCULAR HGB CONC 33 g/dL (31-37); MEAN CORPUSCULAR VOLUME 92 fL (79-100); MONO % 10 % (0-9); NEUT % 67 % (31-73); PLATELET COUNT 144 x10^3/uL (140-400); RED BLOOD COUNT 2.58 x10^6/uL (3.50-5.40); RED CELL DISTRIBUTION WIDTH 16.3 % (11.5-14.5); WHITE BLOOD COUNT 6.6 x10^3/uL (4.0-11.0)
[2016-12-17] MEDS: FERROUS SULFATE 325 MG TABLET. PO SCH (08:43)
[2016-12-17] MEDS: ASPIRIN ENTERIC COATED 81 MG TABLET.DR. PO SCH (08:43)
[2016-12-17] MEDS: CALCIUM ACETATE 667 MG CAPSULE PO SCH ×3 (08:43→17:03)
[2016-12-17] MEDS: CARVEDILOL 3.125 MG TABLET. PO SCH ×2 (08:43→17:04)
[2016-12-17] MEDS: CLOPIDOGREL BISULFATE 75 MG TABLET PO SCH (08:43)
[2016-12-17] MEDS: AMIODARONE HCL 200 MG TABLET. PO SCH (08:44)
[2016-12-17] MEDS: FOLIC/VIT B COMP W-C (RENAL) TABLET. PO SCH (08:47)
[2016-12-17 08:57] LABS: ALBUMIN 2.3 g/dL (3.4-5.0); ALBUMIN/GLOBULIN RATIO 0.8 (1.0-1.7); CALCIUM 7.6 mg/dL (8.5-10.1); CREATININE 3.8 mg/dL (0.6-1.0); GFR 11.9; MAGNESIUM 2.5 mg/dL (1.8-2.4); POTASSIUM 4.1 mmol/L (3.5-5.1); TOTAL BILIRUBIN 0.2 mg/dL (0.2-1.0); TOTAL PROTEIN 5.3 g/dL (6.4-8.2)
--- NOTE | 2016-12-17 09:30 | PDOC ---
PROGRESS NOTES Chief Complaint Chief Complaint ICD spikes with VT, non sustained chronic severe diastolic CHF, EF 55%, with uncontrolled HTN, pulmonary edema recent Acute respiratory failure with underlying COPD and possible JOSE ALFREDO normacytic Anemia, chronic likely, ESRD, CHF, cannot rule out GIB tho ESRD on HD ttsat HTN Hx of recent cardiac arrest/Vtach: S/P AICD/PPM (biotronik). h/o CAD: S/P PCI/BMS to LAD: 10/24 with subsequent LHC on 11/13/2016 with patent stent DM2/HLP Mod to severe MR: last noted 10/21/2016. PAD: RCFA stenosis with no claudication symptoms. w/u at a later date. Noncompliance, signed AMA from PP recently elevated troponin with ESRD mild malnutrition, low albumin with ESRD severe MR CAD with PCI 6 stents via C (12/15) plan: card consulted on amiodarone drip in ER, hold po. lidocaine drip added cont mexitil tid cont other home meds cont HD, renal consult ICU care check hba1c, SSI anemia work up, pt not want GI at this time point Hb low at 7s , stable , no active bleeding, will get 1u PRBC transfusion today labs daily dvt ppx allergy to morphine, but ok to take lortab History of Present Illness History of Present Illness wENT INTO VTACH AGAIN LAST NIGHT, SYMPTOMATIC, lightheaded Needed to start amio gtt again in ICU Cards now thinking of transfer to higher level of care with EP capabilities Plan AMio gtt Per cards Dw CArds, GEOSPATIAL SYSTEMS INTEGRATOR Alon and pt herself Discussed also re compliance, She wont go back to any SNU - (home with if no transfer) Vitals Vitals Vital Signs Date Time Temp Pulse Resp B/P (MAP) Pulse Ox O2 Delivery O2 Flow Rate FiO2 12/17/16 08:43 60 163/73 12/17/16 04:00 98.6 6 100 Nasal Cannula 2.0 98.6 Physical Exam General: Alert, Oriented X3, Cooperative, No acute distress Heart: Regular rate Lungs: Clear, Other Abdomen: Normal bowel sounds, Soft, No tenderness Extremities: No clubbing, Other (AV ACCESS WITH A GOOD THRILL AND BRUIT.) Skin: No rashes Labs LABS Laboratory Tests Test 12/16/16 12:21 12/16/16 16:30 12/16/16 17:22 12/17/16 07:45 Glucose (Fingerstick) 156 mg/dL (70-99) 100 mg/dL (70-99) Magnesium Level 1.9 mg/dL (1.8-2.4) 2.5 mg/dL (1.8-2.4) White Blood Count 6.6 x10^3/uL (4.0-11.0) Red Blood Count 2.58 x10^6/uL (3.50-5.40) Hemoglobin 7.8 g/dL (12.0-15.5) Hematocrit 23.7 % (36.0-47.0) Mean Corpuscular Volume 92 fL (79-100) Mean Corpuscular Hemoglobin 30 pg (25-35) Mean Corpuscular Hemoglobin Concent 33 g/dL (31-37) Red Cell Distribution Width 16.3 % (11.5-14.5) Platelet Count 144 x10^3/uL (140-400) Neutrophils (%) (Auto) 67 % (31-73) Lymphocytes (%) (Auto) 21 % (24-48) Monocytes (%) (Auto) 10 % (0-9) Eosinophils (%) (Auto) 2 % (0-3) Basophils (%) (Auto) 1 % (0-3) Neutrophils # (Auto) 4.4 x10^3uL (1.8-7.7) Lymphocytes # (Auto) 1.4 x10^3/uL (1.0-4.8) Monocytes # (Auto) 0.6 x10^3/uL (0.0-1.1) Eosinophils # (Auto) 0.2 x10^3/uL (0.0-0.7) Basophils # (Auto) 0.1 x10^3/uL (0.0-0.2) Sodium Level 137 mmol/L (136-145) Potassium Level 4.1 mmol/L (3.5-5.1) Chloride Level 100 mmol/L (98-107) Carbon Dioxide Level 31 mmol/L (21-32) Anion Gap 6 (6-14) Blood Urea Nitrogen 18 mg/dL (7-20) Creatinine 3.8 mg/dL (0.6-1.0) Estimated GFR (Cockcroft-Gault) 11.9 BUN/Creatinine Ratio 5 (6-20) Glucose Level 118 mg/dL (70-99) Calcium Level 7.6 mg/dL (8.5-10.1) Total Bilirubin 0.2 mg/dL (0.2-1.0) Aspartate Amino Transf (AST/SGOT) 21 U/L (15-37) Alanine Aminotransferase (ALT/SGPT) 18 U/L (14-59) Alkaline Phosphatase 118 U/L (46-116) Total Protein 5.3 g/dL (6.4-8.2) Albumin 2.3 g/dL (3.4-5.0) Albumin/Globulin Ratio 0.8 (1.0-1.7) Test 12/17/16 08:41 Glucose (Fingerstick) 112 mg/dL (70-99) Review of Systems Review of Systems currently denies anything - lighheaded when vtach happens Assessment and Plan Assessmemt and Plan Problems Medical Problems: (1) Ventricular tachycardia Status: Acute Problems: Comment Review of Relevant I have reviewed the following items ashley (where applicable) has been applied. Labs Laboratory Tests Test 12/15/16 11:36 12/16/16 05:15 12/16/16 05:25 12/16/16 08:06 Glucose (Fingerstick) 166 mg/dL (70-99) 122 mg/dL (70-99) Sodium Level 139 mmol/L (136-145) Potassium Level 4.6 mmol/L (3.5-5.1) Chloride Level 103 mmol/L (98-107) Carbon Dioxide Level 28 mmol/L (21-32) Anion Gap 8 (6-14) Blood Urea Nitrogen 32 mg/dL (7-20) Creatinine 5.3 mg/dL (0.6-1.0) Estimated GFR (Cockcroft-Gault) 8.1 Glucose Level 112 mg/dL (70-99) Calcium Level 7.6 mg/dL (8.5-10.1) White Blood Count 7.5 x10^3/uL (4.0-11.0) Red Blood Count 2.80 x10^6/uL (3.50-5.40) Hemoglobin 8.5 g/dL (12.0-15.5) Hematocrit 25.4 % (36.0-47.0) Mean Corpuscular Volume 91 fL (79-100) Mean Corpuscular Hemoglobin 31 pg (25-35) Mean Corpuscular Hemoglobin Concent 34 g/dL (31-37) Red Cell Distribution Width 16.5 % (11.5-14.5) Platelet Count 166 x10^3/uL (140-400) Neutrophils (%) (Auto) 72 % (31-73) Lymphocytes (%) (Auto) 17 % (24-48) Monocytes (%) (Auto) 8 % (0-9) Eosinophils (%) (Auto) 2 % (0-3) Basophils (%) (Auto) 2 % (0-3) Neutrophils # (Auto) 5.4 x10^3uL (1.8-7.7) Lymphocytes # (Auto) 1.3 x10^3/uL (1.0-4.8) Monocytes # (Auto) 0.6 x10^3/uL (0.0-1.1) Eosinophils # (Auto) 0.1 x10^3/uL (0.0-0.7) Basophils # (Auto) 0.1 x10^3/uL (0.0-0.2) Test 12/16/16 12:21 12/16/16 16:30 12/16/16 17:22 12/17/16 07:45 Glucose (Fingerstick) 156 mg/dL (70-99) 100 mg/dL (70-99) Magnesium Level 1.9 mg/dL (1.8-2.4) 2.5 mg/dL (1.8-2.4) White Blood Count 6.6 x10^3/uL (4.0-11.0) Red Blood Count 2.58 x10^6/uL (3.50-5.40) Hemoglobin 7.8 g/dL (12.0-15.5) Hematocrit 23.7 % (36.0-47.0) Mean Corpuscular Volume 92 fL (79-100) Mean Corpuscular Hemoglobin 30 pg (25-35) Mean Corpuscular Hemoglobin Concent 33 g/dL (31-37) Red Cell Distribution Width 16.3 % (11.5-14.5) Platelet Count 144 x10^3/uL (140-400) Neutrophils (%) (Auto) 67 % (31-73) Lymphocytes (%) (Auto) 21 % (24-48) Monocytes (%) (Auto) 10 % (0-9) Eosinophils (%) (Auto) 2 % (0-3) Basophils (%) (Auto) 1 % (0-3) Neutrophils # (Auto) 4.4 x10^3uL (1.8-7.7) Lymphocytes # (Auto) 1.4 x10^3/uL (1.0-4.8) Monocytes # (Auto) 0.6 x10^3/uL (0.0-1.1) Eosinophils # (Auto) 0.2 x10^3/uL (0.0-0.7) Basophils # (Auto) 0.1 x10^3/uL (0.0-0.2) Sodium Level 137 mmol/L (136-145) Potassium Level 4.1 mmol/L (3.5-5.1) Chloride Level 100 mmol/L (98-107) Carbon Dioxide Level 31 mmol/L (21-32) Anion Gap 6 (6-14) Blood Urea Nitrogen 18 mg/dL (7-20) Creatinine 3.8 mg/dL (0.6-1.0) Estimated GFR (Cockcroft-Gault) 11.9 BUN/Creatinine Ratio 5 (6-20) Glucose Level 118 mg/dL (70-99) Calcium Level 7.6 mg/dL (8.5-10.1) Total Bilirubin 0.2 mg/dL (0.2-1.0) Aspartate Amino Transf (AST/SGOT) 21 U/L (15-37) Alanine Aminotransferase (ALT/SGPT) 18 U/L (14-59) Alkaline Phosphatase 118 U/L (46-116) Total Protein 5.3 g/dL (6.4-8.2) Albumin 2.3 g/dL (3.4-5.0) Albumin/Globulin Ratio 0.8 (1.0-1.7) Test 12/17/16 08:41 Glucose (Fingerstick) 112 mg/dL (70-99) Laboratory Tests Test 12/16/16 12:21 12/16/16 16:30 12/16/16 17:22 12/17/16 07:45 Glucose (Fingerstick) 156 mg/dL (70-99) 100 mg/dL (70-99) Magnesium Level 1.9 mg/dL (1.8-2.4) 2.5 mg/dL (1.8-2.4) White Blood Count 6.6 x10^3/uL (4.0-11.0) Red Blood Count 2.58 x10^6/uL (3.50-5.40) Hemoglobin 7.8 g/dL (12.0-15.5) Hematocrit 23.7 % (36.0-47.0) Mean Corpuscular Volume 92 fL (79-100) Mean Corpuscular Hemoglobin 30 pg (25-35) Mean Corpuscular Hemoglobin Concent 33 g/dL (31-37) Red Cell Distribution Width 16.3 % (11.5-14.5) Platelet Count 144 x10^3/uL (140-400) Neutrophils (%) (Auto) 67 % (31-73) Lymphocytes (%) (Auto) 21 % (24-48) Monocytes (%) (Auto) 10 % (0-9) Eosinophils (%) (Auto) 2 % (0-3) Basophils (%) (Auto) 1 % (0-3) Neutrophils # (Auto) 4.4 x10^3uL (1.8-7.7) Lymphocytes # (Auto) 1.4 x10^3/uL (1.0-4.8) Monocytes # (Auto) 0.6 x10^3/uL (0.0-1.1) Eosinophils # (Auto) 0.2 x10^3/uL (0.0-0.7) Basophils # (Auto) 0.1 x10^3/uL (0.0-0.2) Sodium Level 137 mmol/L (136-145) Potassium Level 4.1 mmol/L (3.5-5.1) Chloride Level 100 mmol/L (98-107) Carbon Dioxide Level 31 mmol/L (21-32) Anion Gap 6 (6-14) Blood Urea Nitrogen 18 mg/dL (7-20) Creatinine 3.8 mg/dL (0.6-1.0) Estimated GFR (Cockcroft-Gault) 11.9 BUN/Creatinine Ratio 5 (6-20) Glucose Level 118 mg/dL (70-99) Calcium Level 7.6 mg/dL (8.5-10.1) Total Bilirubin 0.2 mg/dL (0.2-1.0) Aspartate Amino Transf (AST/SGOT) 21 U/L (15-37) Alanine Aminotransferase (ALT/SGPT) 18 U/L (14-59) Alkaline Phosphatase 118 U/L (46-116) Total Protein 5.3 g/dL (6.4-8.2) Albumin 2.3 g/dL (3.4-5.0) Albumin/Globulin Ratio 0.8 (1.0-1.7) Test 12/17/16 08:41 Glucose (Fingerstick) 112 mg/dL (70-99) Medications Current Medications Amiodarone HCl 150 mg/Dextrose 103 ml @ 618 mls/hr 1X ONCE IV Last administered on 12/14/16 13:35; Start 12/14/16 at 13:30; Stop 12/14/16 at 13:39 ; Status DC Amiodarone HCl 900 mg/Dextrose 518 ml @ 0 mls/hr CONT PRN IV SEE I/O RECORD Last administered on 12/14/16 13:50; Start 12/14/16 at 13:30; Stop 12/14/16 at 13:52; Status DC Amiodarone HCl (Cordarone) 150 mg STK-MED ONCE .ROUTE ; Start 12/14/16 at 13:22 ; Stop 12/14/16 at 13:23; Status DC Mexiletine HCl (Mexitil) 200 mg Q8HRS PO ; Start 12/14/16 at 15:00; Status Cancel Magnesium Sulfate/ Dextrose 50 ml @ 25 mls/hr 1X ONCE IV Last administered on 12/14/16 17:15; Start 12/14/16 at 17:00; Stop 12/14/16 at 18:59; Status DC Alprazolam (Xanax) 0.25 mg PRN DAILY PRN PO ANXIETY / AGITATION Last administered on 12/14/16 20:48; Start 12/14/16 at 16:00 Aspirin (Ecotrin) 81 mg DAILY PO Last administered on 12/17/16 08:43; Start at 09:00 Atorvastatin Calcium (Lipitor) 10 mg QHS PO Last administered on 12/16/16 21: 21; Start 12/14/16 at 21:00 Carvedilol (Coreg) 3.125 mg BIDWMEALS PO Last administered on 12/17/16 08:43; Start 12/14/16 at 17:00 Cinacalcet (Sensipar) 30 mg QHS PO Last administered on 12/16/16 21:21; Start 12/14/16 at 21:00 Clopidogrel Bisulfate (Plavix) 75 mg DAILY PO Last administered on 12/17/16 08 :43; Start 12/15/16 at 09:00 Mexiletine HCl (Mexitil) 200 mg Q8HRS PO Last administered on 12/16/16 05:18; Start 12/14/16 at 16:30; Stop 12/16/16 at 08:00; Status DC Sertraline HCl (Zoloft) 50 mg QHS PO Last administered on 12/16/16 21:21; Start 12/14/16 at 21:00 Calcium Acetate (Phoslo) 1,334 mg TIDWMEALS PO Last administered on 12/17/16 08:43; Start 12/14/16 at 17:00 Gabapentin (Neurontin) 300 mg DAILY PO ; Start 12/15/16 at 09:00; Stop 12/15/16 at 09:00; Status DC Vitamin B Complex/ Vitamin C (Alayna-Oneil) 1 tab DAILY PO Last administered on 08:47; Start 12/15/16 at 09:00 Acetaminophen (Tylenol) 650 mg PRN Q6HRS PRN PO FEVER; Start 12/14/16 at 16:00 Ondansetron HCl (Zofran) 4 mg PRN Q6HRS PRN IV NAUSEA/VOMITING Last administered on 12/15/16 15:02; Start 12/14/16 at 16:00 Hydralazine HCl (Apresoline) 10 mg PRN Q4HRS PRN IVP ELEVATED BP, SEE COMMENTS ; Start 12/14/16 at 16:00 Docusate Sodium (Colace) 100 mg PRN DAILY PRN PO CONSTIPATION; Start 12/14/16 at 16:00 Heparin Sodium (Porcine) (Heparin Sq) 5,000 unit Q8HRS SQ Last administered on 12/17/16 05:48; Start 12/14/16 at 16:15 Insulin Aspart (NovoLOG) 0-9 UNITS TIDWMEALS SQ Last administered on 12/16/16 12:23; Start 12/14/16 at 17:00 Dextrose (Dextrose 50%-Water Syringe) 12.5 gm PRN Q15MIN PRN IV SEE COMMENTS; Start 12/14/16 at 16:15 Gabapentin (Neurontin) 300 mg QHS PO Last administered on 12/16/16 21:21; Start 12/14/16 at 21:00 Metoprolol Tartrate (Lopressor) 10 mg Q6HRS IVP Last administered on 12/16/16 05:18; Start 12/15/16 at 00:15; Stop 12/16/16 at 16:41; Status DC Lidocaine HCl/ Dextrose 500 ml @ 0 mls/hr CONT PRN IV SEE I/O RECORD Last administered on 12/15/16 04:09; Start 12/15/16 at 04:15; Stop 12/15/16 at 17:49 ; Status DC Lorazepam (Ativan) Give to reduce excitibi... PRN Q4HRS PRN IV ANXIETY / AGITATION; Start 12/15/16 at 04:30 Fentanyl Citrate (Fentanyl 2ml Vial) 25 mcg PRN Q2HR PRN IV PAIN; Start at 04:30 Fentanyl Citrate (Fentanyl 2ml Vial) 50 mcg PRN Q2HR PRN IV PAIN; Start at 04:45 Acetaminophen/ Hydrocodone Bitart (Lortab 10/325) 1 tab PRN Q6HRS PRN PO PAIN Last administered on 12/15/16 05:42; Start 12/15/16 at 05:30 Ferrous Sulfate (Feosol) 325 mg DAILYWBKFT PO Last administered on 12/17/16 08 :43; Start 12/15/16 at 08:00 Darbepoetin Jaskaran (Aranesp) 60 mcg WEEKLYHS SQ Last administered on 12/15/16 21 :51; Start 12/15/16 at 21:00 Lidocaine HCl 20 ml STK-MED ONCE .ROUTE ; Start 12/15/16 at 15:28; Stop at 15:29; Status DC Heparin Sodium/ Sodium Chloride 500 ml @ As Directed STK-MED ONCE .ROUTE ; Start 12/15/16 at 15:29; Stop 12/15/16 at 15:30; Status DC Iodixanol (Visipaque 320) 100 ml STK-MED ONCE .ROUTE ; Start 12/15/16 at 15:29; Stop 12/15/16 at 15:30; Status DC Prochlorperazine Edisylate (Compazine) 10 mg PRN Q6HRS PRN IV NAUSEA/VOMITING; Start 12/15/16 at 15:30 Prochlorperazine Edisylate (Compazine) 10 mg STK-MED ONCE .ROUTE ; Start at 15:31; Stop 12/15/16 at 15:32; Status DC Midazolam HCl (Versed) 2 mg STK-MED ONCE .ROUTE ; Start 12/15/16 at 15:53; Stop 12/15/16 at 15:54; Status DC Fentanyl Citrate (Fentanyl 5ml Vial) 250 mcg STK-MED ONCE .ROUTE ; Start at 15:54; Stop 12/15/16 at 15:55; Status DC Bivalirudin (Angiomax) 250 mg STK-MED ONCE IV ; Start 12/15/16 at 16:22; Stop at 16:23; Status DC Heparin Sodium/ Sodium Chloride 1,000 unit 1X ONCE IART Last administered on 17:35; Start 12/15/16 at 16:45; Stop 12/15/16 at 16:46; Status DC Midazolam HCl (Versed) 2 mg 1X ONCE IV Last administered on 12/15/16 17:36; Start 12/15/16 at 16:45; Stop 12/15/16 at 16:46; Status DC Fentanyl Citrate (Fentanyl 5ml Vial) 50 mcg 1X ONCE IV Last administered on 17:36; Start 12/15/16 at 16:45; Stop 12/15/16 at 16:46; Status DC Iodixanol (Visipaque 320) 100 ml 1X ONCE IART Last administered on 12/15/16 17:34; Start 12/15/16 at 16:45; Stop 12/15/16 at 16:46; Status DC Bivalirudin (Angiomax) 250 mg 1X ONCE IV Last administered on 12/15/16 17:35 ; Start 12/15/16 at 16:45; Stop 12/15/16 at 16:46; Status DC Lidocaine HCl 18 ml 1X ONCE IJ Last administered on 12/15/16 17:35; Start at 16:45; Stop 12/15/16 at 16:46; Status DC Info (Do NOT chart on this entry -- for MONITORING) 1 each PRN DAILY PRN MC SEE COMMENTS; Start 12/15/16 at 16:45; Stop 12/17/16 at 16:44 Nitroglycerin (Nitroglycerin) 200 mcg STK-MED ONCE .ROUTE ; Start 12/15/16 at 17 :00; Stop 12/15/16 at 17:01; Status DC Nitroglycerin (Nitroglycerin) 200 mcg 1X ONCE IART Last administered on 17:35; Start 12/15/16 at 17:30; Stop 12/15/16 at 17:31; Status DC Acetaminophen (Tylenol) 650 mg PRN Q6HRS PRN PO MILD PAIN / TEMP; Start at 17:45; Status UNV Nitroglycerin (Nitrostat) 0.4 mg PRN Q5MIN PRN SL CHEST PAIN; Start 12/15/16 at 17:45 Amiodarone HCl 150 mg/Dextrose 103 ml @ 10 mls/min 1X PRN PRN IV FOR VENTRICULAR TACHYCARDIA; Start 12/15/16 at 17:45 Amiodarone HCl (Cordarone) 200 mg DAILY PO Last administered on 12/16/16 08:09 ; Start 12/15/16 at 18:00 Sodium Chloride 1,000 ml @ 1,000 mls/hr Q1H PRN IV hypotension; Start 12/16/16 at 14:40; Stop 12/16/16 at 20:39; Status DC Info (PHARMACY MONITORING -- do not chart) 1 each PRN DAILY PRN MC SEE COMMENTS ; Start 12/16/16 at 14:45; Status UNV Info (PHARMACY MONITORING -- do not chart) 1 each PRN DAILY PRN MC SEE COMMENTS ; Start 12/16/16 at 14:45 Magnesium Sulfate/ Dextrose 50 ml @ 25 mls/hr 1X ONCE IV Last administered on 12/16/16 17:29; Start 12/16/16 at 17:30; Stop 12/16/16 at 19:29; Status DC Amiodarone HCl 75 mg/Dextrose 101.5 ml @ 618 mls/hr 1X ONCE IV Last administered on 12/16/16 19:35; Start 12/16/16 at 19:30; Stop 12/16/16 at 19:39 ; Status DC Amiodarone HCl 900 mg/Dextrose 518 ml @ 0 mls/hr CONT PRN IV SEE I/O RECORD Last administered on 12/16/16 19:45; Start 12/16/16 at 19:15; Stop 12/16/16 at 23:00; Status DC Active Scripts Active Mexiletine Hcl 200 Mg Capsule 200 Mg PO Q8HRS 30 Days Atorvastatin Calcium 10 Mg Tablet 10 Mg PO QHS 30 Days Amiodarone Hcl 200 Mg Tablet 200 Mg PO DAILY 30 Days Carvedilol 3.125 Mg Tablet 3.125 Mg PO BIDWMEALS Reported Sertraline Hcl 50 Mg Tablet 50 Mg PO QHS Sensipar (Cinacalcet Hcl) 30 Mg Tablet 1 Tab PO QHS Alayna-Oneil Rx Tablet (Vit B Cmplx 3/Fa/Vit C/Biotin) 1 Each Tablet 1 Each PO DAILY Cranberry Plus Vitamin C Sftgl (Cranberry Conc/Ascorbic Acid) 1 Each Capsule 1 Each PO DAILY Coricidin Hbp Tablet (Acetaminophen/Chlorpheniramine) 1 Each Tablet 1 Each PO PRN Alprazolam 0.25 Mg Tablet 1 Tab PO DAILY PRN Plavix (Clopidogrel Bisulfate) 75 Mg Tablet 75 Mg PO DAILY Calcium Acetate 667 Mg Tablet 2 Tab PO TIDWMEALS last dose was this am next dose is wiith supper Tylenol Extra Strength (Acetaminophen) 500 Mg Tablet 500 Mg PO PRN Q12HRS PRN not given in hospital may resume when needed Gabapentin 300 Mg Capsule 300 Mg PO DAILY Benadryl Allergy (Diphenhydramine Hcl) 25 Mg Tablet 25 Mg PO PRN not given in the hospital Aspir 81 (Aspirin) 81 Mg Tablet.dr 81 Mg PO DAILY last dose was this am resume in am Vitals/I & O Vital Sign - Last 24 Hours 12/16/16 12/16/16 12/16/16 12/16/16 10:00 11:00 15:00 17:24 Temp 98.5 98.5 Pulse 60 60 60 60 Resp 7 10 6 B/P (MAP) 96/52 (67) 119/58 (78) 145/59 (87) 177/64 Pulse Ox 97 98 98 O2 Delivery Nasal Cannula Nasal Cannula Nasal Cannula O2 Flow Rate 2.0 2.0 2.0 12/16/16 12/16/16 12/16/16 12/17/16 19:35 20:00 20:00 00:00 Temp 98.6 98.4 98.6 98.4 Pulse 60 60 60 Resp 14 14 B/P (MAP) 158/73 158/73 (101) 157/68 (97) Pulse Ox 100 100 O2 Delivery Nasal Cannula Nasal Cannula Nasal Cannula O2 Flow Rate 2.0 2.0 2.0 12/17/16 12/17/16 04:00 08:43 Temp 98.6 98.6 Pulse 60 60 Resp 6 B/P (MAP) 123/52 (75) 163/73 Pulse Ox 100 O2 Delivery Nasal Cannula O2 Flow Rate 2.0 MICHELLE DOWD MD Dec 17, 2016 09:30
[2016-12-17 12:00] VITALS: BP 132/57
--- NOTE | 2016-12-17 12:06 | PDOC ---
Renal-Progress Notes Subjective Notes Notes FEELS WELL History of Present Illness Hx of present illness MORE VTACH OVER NIGHT Vitals Vitals Vital Signs Date Time Temp Pulse Resp B/P (MAP) Pulse Ox O2 Delivery O2 Flow Rate FiO2 12/17/16 08:43 60 163/73 12/17/16 08:00 98.2 9 99 Nasal Cannula 2.0 98.2 Weight Weight [ ] I.O. Intake and Output Intake and Output 12/18/16 07:00 Intake Total 220 ml Balance 220 ml Intake Oral 220 ml Labs Labs Laboratory Tests Test 12/16/16 12:21 12/16/16 16:30 12/16/16 17:22 12/17/16 07:45 Glucose (Fingerstick) 156 mg/dL (70-99) 100 mg/dL (70-99) Magnesium Level 1.9 mg/dL (1.8-2.4) 2.5 mg/dL (1.8-2.4) White Blood Count 6.6 x10^3/uL (4.0-11.0) Red Blood Count 2.58 x10^6/uL (3.50-5.40) Hemoglobin 7.8 g/dL (12.0-15.5) Hematocrit 23.7 % (36.0-47.0) Mean Corpuscular Volume 92 fL (79-100) Mean Corpuscular Hemoglobin 30 pg (25-35) Mean Corpuscular Hemoglobin Concent 33 g/dL (31-37) Red Cell Distribution Width 16.3 % (11.5-14.5) Platelet Count 144 x10^3/uL (140-400) Neutrophils (%) (Auto) 67 % (31-73) Lymphocytes (%) (Auto) 21 % (24-48) Monocytes (%) (Auto) 10 % (0-9) Eosinophils (%) (Auto) 2 % (0-3) Basophils (%) (Auto) 1 % (0-3) Neutrophils # (Auto) 4.4 x10^3uL (1.8-7.7) Lymphocytes # (Auto) 1.4 x10^3/uL (1.0-4.8) Monocytes # (Auto) 0.6 x10^3/uL (0.0-1.1) Eosinophils # (Auto) 0.2 x10^3/uL (0.0-0.7) Basophils # (Auto) 0.1 x10^3/uL (0.0-0.2) Sodium Level 137 mmol/L (136-145) Potassium Level 4.1 mmol/L (3.5-5.1) Chloride Level 100 mmol/L (98-107) Carbon Dioxide Level 31 mmol/L (21-32) Anion Gap 6 (6-14) Blood Urea Nitrogen 18 mg/dL (7-20) Creatinine 3.8 mg/dL (0.6-1.0) Estimated GFR (Cockcroft-Gault) 11.9 BUN/Creatinine Ratio 5 (6-20) Glucose Level 118 mg/dL (70-99) Calcium Level 7.6 mg/dL (8.5-10.1) Total Bilirubin 0.2 mg/dL (0.2-1.0) Aspartate Amino Transf (AST/SGOT) 21 U/L (15-37) Alanine Aminotransferase (ALT/SGPT) 18 U/L (14-59) Alkaline Phosphatase 118 U/L (46-116) Total Protein 5.3 g/dL (6.4-8.2) Albumin 2.3 g/dL (3.4-5.0) Albumin/Globulin Ratio 0.8 (1.0-1.7) Test 12/17/16 08:41 Glucose (Fingerstick) 112 mg/dL (70-99) Review of Systems Constitutional: yes: weakness, alert, oriented Ears/Nose/Throat: Yes: no symptom reported Eyes: Yes: no symptom reported Cardiovascular: Yes no symptom reported, Yes palpitations Genitourinary: Yes: no symptom reported Musculoskeletal: Yes: no symptom reported Skin: Yes no symptom reported Psychiatric/Neurological: Yes: no symptom reported Endocrine: Yes: no symptom reported Physical Exam General Appearance: no apparent distress Skin: warm Respiratory: bilateral CTA Heart: S1S2, RRR Abdomen: soft Genitourinary: bladder flat Extremities: pulses present Neurology: alert, oriented, follow commands Musculoskeletal: Other Assessment Assessment IMP CAD S/P PTCA AND STENT ANEMIA ESRD NON COMPLIANCE V TACH HTN PLAN HD TOMORROW ON AMIODARONE GTT NOW ENC COMPLIANCE SUZY HOWARD MD Dec 17, 2016 12:06
--- NOTE | 2016-12-17 14:18 | PDOC ---
CARDIO Progress Notes Date and Time Date of Service 12/17/16 Time of Evaluation 1050 Subjective Subjective: No Chest Pain, No shortness of breath, No Palpitations, Other ( device shocked yesterday evening) Vitals Vitals Vital Signs Date Time Temp Pulse Resp B/P (MAP) Pulse Ox O2 Delivery O2 Flow Rate FiO2 12/17/16 12:00 98.2 60 22 132/57 (82) 98 Room Air 98.2 12/17/16 08:00 2.0 Weight Weight [ ] Input and Output Intake and Output Intake and Output 12/18/16 07:00 Intake Total 320 ml Balance 320 ml Intake Oral 320 ml Laboratory Labs Laboratory Tests Test 12/16/16 16:30 12/16/16 17:22 12/17/16 07:45 12/17/16 08:41 Magnesium Level 1.9 mg/dL (1.8-2.4) 2.5 mg/dL (1.8-2.4) Glucose (Fingerstick) 100 mg/dL (70-99) 112 mg/dL (70-99) White Blood Count 6.6 x10^3/uL (4.0-11.0) Red Blood Count 2.58 x10^6/uL (3.50-5.40) Hemoglobin 7.8 g/dL (12.0-15.5) Hematocrit 23.7 % (36.0-47.0) Mean Corpuscular Volume 92 fL (79-100) Mean Corpuscular Hemoglobin 30 pg (25-35) Mean Corpuscular Hemoglobin Concent 33 g/dL (31-37) Red Cell Distribution Width 16.3 % (11.5-14.5) Platelet Count 144 x10^3/uL (140-400) Neutrophils (%) (Auto) 67 % (31-73) Lymphocytes (%) (Auto) 21 % (24-48) Monocytes (%) (Auto) 10 % (0-9) Eosinophils (%) (Auto) 2 % (0-3) Basophils (%) (Auto) 1 % (0-3) Neutrophils # (Auto) 4.4 x10^3uL (1.8-7.7) Lymphocytes # (Auto) 1.4 x10^3/uL (1.0-4.8) Monocytes # (Auto) 0.6 x10^3/uL (0.0-1.1) Eosinophils # (Auto) 0.2 x10^3/uL (0.0-0.7) Basophils # (Auto) 0.1 x10^3/uL (0.0-0.2) Sodium Level 137 mmol/L (136-145) Potassium Level 4.1 mmol/L (3.5-5.1) Chloride Level 100 mmol/L (98-107) Carbon Dioxide Level 31 mmol/L (21-32) Anion Gap 6 (6-14) Blood Urea Nitrogen 18 mg/dL (7-20) Creatinine 3.8 mg/dL (0.6-1.0) Estimated GFR (Cockcroft-Gault) 11.9 BUN/Creatinine Ratio 5 (6-20) Glucose Level 118 mg/dL (70-99) Calcium Level 7.6 mg/dL (8.5-10.1) Total Bilirubin 0.2 mg/dL (0.2-1.0) Aspartate Amino Transf (AST/SGOT) 21 U/L (15-37) Alanine Aminotransferase (ALT/SGPT) 18 U/L (14-59) Alkaline Phosphatase 118 U/L (46-116) Total Protein 5.3 g/dL (6.4-8.2) Albumin 2.3 g/dL (3.4-5.0) Albumin/Globulin Ratio 0.8 (1.0-1.7) Test 12/17/16 12:02 Glucose (Fingerstick) 161 mg/dL (70-99) Review of Systems Constitutional: yes: weakness, alert, oriented Ears/Nose/Throat: Yes: no symptom reported Eyes: Yes: no symptom reported Cardiovascular: Yes no symptom reported, Yes palpitations Genitourinary: Yes: no symptom reported Musculoskeletal: Yes: no symptom reported Skin: Yes no symptom reported Psychiatric/Neurological: Yes: no symptom reported Endocrine: Yes: no symptom reported Physical Exam HEENT: Neck Supple W Full Motion Chest: Symmetric LUNGS: Clear to Auscultation Heart: S1S2, RRR, murmurs (3/6 systolic murmur ) Abdomen: Soft N/T Extremities: No Edema, Other Neurology: alert, oriented, follow commands Assessment Assessment 1. Hx of recent cardiac arrest/VT s/p AICD (Biotronik); patient continue to have multiple episode of v-tach despite revascularization. Device interrogated; since cardiac cath Thursday, patient has had 5 recorded episodes of VT with 1 therapeutic shock, and 2 ATP. Shock was delivered at 1853 yesterday evening. IV Amiodarone initiated- continue overnight. Convert to 400mg BID orally tomorrow. Will resume Mexiletine and refer patient to EP. If patient continues to have episodes of VT despite aggressive medical therapy, could consider transfer to for expedited EP evaluation. Will continue to monitor. 2. CAD; S/p previous PCI/BMS to LAD. Cardiac cath yesterday revealed two- vessel disease. S/p successful PCI/stents to the RCA and LAD. Continue secondary prevention measures including DAPT with ASA and Plavix 3. Chronic diastolic HF; LVEF 50%. compensated. Continue fluid offloading/ management via HD as per nephrology 4. ESRD on HD. 5. Hypertension; well-controlled 6. Hyperlipidemia; statin therapy 7. Diabetes; as per [facility] ESTEPHANIA JACOBO APRN Dec 17, 2016 14:18
[2016-12-17] MEDS: AMIODARONE 450 MG in IV DEXTROSE 5% 250 ML IV PRN (14:29)
[2016-12-17] MEDS: MEXILETINE HCL 200 MG CAPSULE PO SCH ×2 (14:29→21:07)
[2016-12-17 16:00] VITALS: BP 171/85
[2016-12-17] MEDS ORDERED: diphenhydrAMINE HCL 25 MG CAPSULE PO PRN (17:15)
[2016-12-17 20:00] VITALS: BP 167/83
[2016-12-17] MEDS ORDERED: FAMOTIDINE 20 MG TABLET. PO SCH (21:00)
[2016-12-17] MEDS: CINACALCET HCL 30 MG TABLET PO SCH (21:07)
[2016-12-17] MEDS: SERTRALINE 50 MG TABLET. PO SCH (21:07)
[2016-12-17] MEDS: ATORVASTATIN CALCIUM 10 MG TABLET. PO SCH (21:08)
[2016-12-17] MEDS: GABAPENTIN 300 MG CAPSULE. PO SCH (21:08)
[2016-12-18] VITALS: BP 141/65
[2016-12-18 04:00] VITALS: BP 160/72
[2016-12-18] MEDS: ONDANSETRON PF 4 MG/2 ML VIAL. IV PRN (04:28)
[2016-12-18] MEDS: HEPARIN PF for SUB-Q USE 5,000 UNIT/0.5 ML VIAL. SQ SCH ×2 (06:26→15:11)
[2016-12-18] MEDS: MEXILETINE HCL 200 MG CAPSULE PO SCH ×2 (06:26→15:09)
[2016-12-18 07:49] LABS: HEMATOCRIT 23.2 % (36.0-47.0); HEMOGLOBIN 7.8 g/dL (12.0-15.5); RED BLOOD COUNT 2.56 x10^6/uL (3.50-5.40); RED CELL DISTRIBUTION WIDTH 16.1 % (11.5-14.5); WHITE BLOOD COUNT 6.2 x10^3/uL (4.0-11.0)
[2016-12-18 07:54] LABS: CALCIUM 7.8 mg/dL (8.5-10.1); CREATININE 4.6 mg/dL (0.6-1.0); GFR 9.6; POTASSIUM 4.4 mmol/L (3.5-5.1)
[2016-12-18 08:00] VITALS: BP 173/86
[2016-12-18] MEDS: INSULIN ASPART 300 UNITS/3 ML INSULN.PEN SQ SCH ×2 (08:00→12:00)
[2016-12-18] MEDS: ASPIRIN ENTERIC COATED 81 MG TABLET.DR. PO SCH (08:14)
[2016-12-18] MEDS: CALCIUM ACETATE 667 MG CAPSULE PO SCH ×2 (08:14→12:25)
[2016-12-18] MEDS: FOLIC/VIT B COMP W-C (RENAL) TABLET. PO SCH (08:14)
[2016-12-18] MEDS: FERROUS SULFATE 325 MG TABLET. PO SCH (08:14)
[2016-12-18] MEDS: CLOPIDOGREL BISULFATE 75 MG TABLET PO SCH (08:14)
[2016-12-18] MEDS: AMIODARONE HCL 200 MG TABLET. PO SCH (08:15)
[2016-12-18] MEDS: CARVEDILOL 3.125 MG TABLET. PO SCH (08:15)
--- NOTE | 2016-12-18 08:56 | PDOC ---
PROGRESS NOTES Chief Complaint Chief Complaint ICD spikes with VT, non sustained chronic severe diastolic CHF, EF 55%, with uncontrolled HTN, pulmonary edema recent Acute respiratory failure with underlying COPD and possible JOSE ALFREDO normacytic Anemia, chronic likely, ESRD, CHF, cannot rule out GIB tho ESRD on HD ttsat HTN Hx of recent cardiac arrest/Vtach: S/P AICD/PPM (biotronik). h/o CAD: S/P PCI/BMS to LAD: 10/24 with subsequent LHC on 11/13/2016 with patent stent DM2/HLP Mod to severe MR: last noted 10/21/2016. PAD: RCFA stenosis with no claudication symptoms. w/u at a later date. Noncompliance, signed AMA from PP recently elevated troponin with ESRD mild malnutrition, low albumin with ESRD severe MR CAD with PCI 6 stents via LHC (12/15) History of Present Illness History of Present Illness Arrhythmias persist I was told a good 30 sec pause WITH LOC tHIS TIME, before her defibrillar shocked her last night NOW this am, hesitant to have hD YESTERDAY ENTRY: wENT INTO VTACH AGAIN LAST NIGHT, SYMPTOMATIC, lightheaded Needed to start amio gtt again in ICU Cards now thinking of transfer to higher level of care with EP capabilities Plan Needs to be transferred to higher level with EP and ablation capabilities, I have readied the dc MED list since yesterday PLs let me know if this proceeds today, will await cards rounds Discussed also re compliance, She wont go back to any SNU - (home with if no transfer) Vitals Vitals Vital Signs Date Time Temp Pulse Resp B/P (MAP) Pulse Ox O2 Delivery O2 Flow Rate FiO2 12/18/16 08:15 60 170/77 12/18/16 04:00 98.2 13 100 Room Air 98.2 12/17/16 08:00 2.0 Physical Exam General: Alert, Oriented X3, Cooperative, No acute distress Heart: Regular rate Lungs: Clear, Other Abdomen: Normal bowel sounds, Soft, No tenderness Extremities: No clubbing, Other (AV ACCESS WITH A GOOD THRILL AND BRUIT.) Skin: No rashes Labs LABS Laboratory Tests Test 12/17/16 12:02 12/17/16 16:59 12/18/16 07:35 Glucose (Fingerstick) 161 mg/dL (70-99) 217 mg/dL (70-99) White Blood Count 6.2 x10^3/uL (4.0-11.0) Red Blood Count 2.56 x10^6/uL (3.50-5.40) Hemoglobin 7.8 g/dL (12.0-15.5) Hematocrit 23.2 % (36.0-47.0) Mean Corpuscular Volume 91 fL (79-100) Mean Corpuscular Hemoglobin 31 pg (25-35) Mean Corpuscular Hemoglobin Concent 34 g/dL (31-37) Red Cell Distribution Width 16.1 % (11.5-14.5) Platelet Count 146 x10^3/uL (140-400) Sodium Level 136 mmol/L (136-145) Potassium Level 4.4 mmol/L (3.5-5.1) Chloride Level 99 mmol/L (98-107) Carbon Dioxide Level 31 mmol/L (21-32) Anion Gap 6 (6-14) Blood Urea Nitrogen 24 mg/dL (7-20) Creatinine 4.6 mg/dL (0.6-1.0) Estimated GFR (Cockcroft-Gault) 9.6 Glucose Level 142 mg/dL (70-99) Calcium Level 7.8 mg/dL (8.5-10.1) Review of Systems Review of Systems none this AM Assessment and Plan Assessmemt and Plan Problems Medical Problems: (1) Ventricular tachycardia Status: Acute Problems: Comment Review of Relevant I have reviewed the following items ashley (where applicable) has been applied. Labs Laboratory Tests Test 12/16/16 12:21 12/16/16 16:30 12/16/16 17:22 12/17/16 07:45 Glucose (Fingerstick) 156 mg/dL (70-99) 100 mg/dL (70-99) Magnesium Level 1.9 mg/dL (1.8-2.4) 2.5 mg/dL (1.8-2.4) White Blood Count 6.6 x10^3/uL (4.0-11.0) Red Blood Count 2.58 x10^6/uL (3.50-5.40) Hemoglobin 7.8 g/dL (12.0-15.5) Hematocrit 23.7 % (36.0-47.0) Mean Corpuscular Volume 92 fL (79-100) Mean Corpuscular Hemoglobin 30 pg (25-35) Mean Corpuscular Hemoglobin Concent 33 g/dL (31-37) Red Cell Distribution Width 16.3 % (11.5-14.5) Platelet Count 144 x10^3/uL (140-400) Neutrophils (%) (Auto) 67 % (31-73) Lymphocytes (%) (Auto) 21 % (24-48) Monocytes (%) (Auto) 10 % (0-9) Eosinophils (%) (Auto) 2 % (0-3) Basophils (%) (Auto) 1 % (0-3) Neutrophils # (Auto) 4.4 x10^3uL (1.8-7.7) Lymphocytes # (Auto) 1.4 x10^3/uL (1.0-4.8) Monocytes # (Auto) 0.6 x10^3/uL (0.0-1.1) Eosinophils # (Auto) 0.2 x10^3/uL (0.0-0.7) Basophils # (Auto) 0.1 x10^3/uL (0.0-0.2) Sodium Level 137 mmol/L (136-145) Potassium Level 4.1 mmol/L (3.5-5.1) Chloride Level 100 mmol/L (98-107) Carbon Dioxide Level 31 mmol/L (21-32) Anion Gap 6 (6-14) Blood Urea Nitrogen 18 mg/dL (7-20) Creatinine 3.8 mg/dL (0.6-1.0) Estimated GFR (Cockcroft-Gault) 11.9 BUN/Creatinine Ratio 5 (6-20) Glucose Level 118 mg/dL (70-99) Calcium Level 7.6 mg/dL (8.5-10.1) Total Bilirubin 0.2 mg/dL (0.2-1.0) Aspartate Amino Transf (AST/SGOT) 21 U/L (15-37) Alanine Aminotransferase (ALT/SGPT) 18 U/L (14-59) Alkaline Phosphatase 118 U/L (46-116) Total Protein 5.3 g/dL (6.4-8.2) Albumin 2.3 g/dL (3.4-5.0) Albumin/Globulin Ratio 0.8 (1.0-1.7) Test 9/27/17 08:41 12/17/16 12:02 12/17/16 16:59 12/18/16 07:35 Glucose (Fingerstick) 112 mg/dL (70-99) 161 mg/dL (70-99) 217 mg/dL (70-99) White Blood Count 6.2 x10^3/uL (4.0-11.0) Red Blood Count 2.56 x10^6/uL (3.50-5.40) Hemoglobin 7.8 g/dL (12.0-15.5) Hematocrit 23.2 % (36.0-47.0) Mean Corpuscular Volume 91 fL (79-100) Mean Corpuscular Hemoglobin 31 pg (25-35) Mean Corpuscular Hemoglobin Concent 34 g/dL (31-37) Red Cell Distribution Width 16.1 % (11.5-14.5) Platelet Count 146 x10^3/uL (140-400) Sodium Level 136 mmol/L (136-145) Potassium Level 4.4 mmol/L (3.5-5.1) Chloride Level 99 mmol/L (98-107) Carbon Dioxide Level 31 mmol/L (21-32) Anion Gap 6 (6-14) Blood Urea Nitrogen 24 mg/dL (7-20) Creatinine 4.6 mg/dL (0.6-1.0) Estimated GFR (Cockcroft-Gault) 9.6 Glucose Level 142 mg/dL (70-99) Calcium Level 7.8 mg/dL (8.5-10.1) Laboratory Tests Test 12/17/16 12:02 12/17/16 16:59 12/18/16 07:35 Glucose (Fingerstick) 161 mg/dL (70-99) 217 mg/dL (70-99) White Blood Count 6.2 x10^3/uL (4.0-11.0) Red Blood Count 2.56 x10^6/uL (3.50-5.40) Hemoglobin 7.8 g/dL (12.0-15.5) Hematocrit 23.2 % (36.0-47.0) Mean Corpuscular Volume 91 fL (79-100) Mean Corpuscular Hemoglobin 31 pg (25-35) Mean Corpuscular Hemoglobin Concent 34 g/dL (31-37) Red Cell Distribution Width 16.1 % (11.5-14.5) Platelet Count 146 x10^3/uL (140-400) Sodium Level 136 mmol/L (136-145) Potassium Level 4.4 mmol/L (3.5-5.1) Chloride Level 99 mmol/L (98-107) Carbon Dioxide Level 31 mmol/L (21-32) Anion Gap 6 (6-14) Blood Urea Nitrogen 24 mg/dL (7-20) Creatinine 4.6 mg/dL (0.6-1.0) Estimated GFR (Cockcroft-Gault) 9.6 Glucose Level 142 mg/dL (70-99) Calcium Level 7.8 mg/dL (8.5-10.1) Medications Current Medications Amiodarone HCl 150 mg/Dextrose 103 ml @ 618 mls/hr 1X ONCE IV Last administered on 12/14/16 13:35; Start 12/14/16 at 13:30; Stop 12/14/16 at 13:39 ; Status DC Amiodarone HCl 900 mg/Dextrose 518 ml @ 0 mls/hr CONT PRN IV SEE I/O RECORD Last administered on 12/14/16 13:50; Start 12/14/16 at 13:30; Stop 12/14/16 at 13:52; Status DC Amiodarone HCl (Cordarone) 150 mg STK-MED ONCE .ROUTE ; Start 12/14/16 at 13:22 ; Stop 12/14/16 at 13:23; Status DC Mexiletine HCl (Mexitil) 200 mg Q8HRS PO ; Start 12/14/16 at 15:00; Status Cancel Magnesium Sulfate/ Dextrose 50 ml @ 25 mls/hr 1X ONCE IV Last administered on 12/14/16 17:15; Start 12/14/16 at 17:00; Stop 12/14/16 at 18:59; Status DC Alprazolam (Xanax) 0.25 mg PRN DAILY PRN PO ANXIETY / AGITATION Last administered on 12/14/16 20:48; Start 12/14/16 at 16:00 Aspirin (Ecotrin) 81 mg DAILY PO Last administered on 12/18/16 08:14; Start at 09:00 Atorvastatin Calcium (Lipitor) 10 mg QHS PO Last administered on 12/17/16 21: 08; Start 12/14/16 at 21:00 Carvedilol (Coreg) 3.125 mg BIDWMEALS PO Last administered on 12/18/16 08:15; Start 12/14/16 at 17:00 Cinacalcet (Sensipar) 30 mg QHS PO Last administered on 12/17/16 21:07; Start 12/14/16 at 21:00 Clopidogrel Bisulfate (Plavix) 75 mg DAILY PO Last administered on 12/18/16 08 :14; Start 12/15/16 at 09:00 Mexiletine HCl (Mexitil) 200 mg Q8HRS PO Last administered on 12/16/16 05:18; Start 12/14/16 at 16:30; Stop 12/16/16 at 08:00; Status DC Sertraline HCl (Zoloft) 50 mg QHS PO Last administered on 12/17/16 21:07; Start 12/14/16 at 21:00 Calcium Acetate (Phoslo) 1,334 mg TIDWMEALS PO Last administered on 12/18/16 08:14; Start 12/14/16 at 17:00 Gabapentin (Neurontin) 300 mg DAILY PO ; Start 12/15/16 at 09:00; Stop 12/15/16 at 09:00; Status DC Vitamin B Complex/ Vitamin C (Alayna-Oneil) 1 tab DAILY PO Last administered on 08:14; Start 12/15/16 at 09:00 Acetaminophen (Tylenol) 650 mg PRN Q6HRS PRN PO FEVER; Start 12/14/16 at 16:00 Ondansetron HCl (Zofran) 4 mg PRN Q6HRS PRN IV NAUSEA/VOMITING Last administered on 12/18/16 04:28; Start 12/14/16 at 16:00 Hydralazine HCl (Apresoline) 10 mg PRN Q4HRS PRN IVP ELEVATED BP, SEE COMMENTS ; Start 12/14/16 at 16:00 Docusate Sodium (Colace) 100 mg PRN DAILY PRN PO CONSTIPATION; Start 12/14/16 at 16:00 Heparin Sodium (Porcine) (Heparin Sq) 5,000 unit Q8HRS SQ Last administered on 12/18/16 06:26; Start 12/14/16 at 16:15 Insulin Aspart (NovoLOG) 0-9 UNITS TIDWMEALS SQ Last administered on 12/17/16 17:01; Start 12/14/16 at 17:00 Dextrose (Dextrose 50%-Water Syringe) 12.5 gm PRN Q15MIN PRN IV SEE COMMENTS; Start 12/14/16 at 16:15 Gabapentin (Neurontin) 300 mg QHS PO Last administered on 12/17/16 21:08; Start 12/14/16 at 21:00 Metoprolol Tartrate (Lopressor) 10 mg Q6HRS IVP Last administered on 12/16/16 05:18; Start 12/15/16 at 00:15; Stop 12/16/16 at 16:41; Status DC Lidocaine HCl/ Dextrose 500 ml @ 0 mls/hr CONT PRN IV SEE I/O RECORD Last administered on 12/15/16 04:09; Start 12/15/16 at 04:15; Stop 12/15/16 at 17:49 ; Status DC Lorazepam (Ativan) Give to reduce excitibi... PRN Q4HRS PRN IV ANXIETY / AGITATION; Start 12/15/16 at 04:30 Fentanyl Citrate (Fentanyl 2ml Vial) 25 mcg PRN Q2HR PRN IV PAIN; Start at 04:30 Fentanyl Citrate (Fentanyl 2ml Vial) 50 mcg PRN Q2HR PRN IV PAIN; Start at 04:45 Acetaminophen/ Hydrocodone Bitart (Lortab 10/325) 1 tab PRN Q6HRS PRN PO PAIN Last administered on 12/15/16 05:42; Start 12/15/16 at 05:30 Ferrous Sulfate (Feosol) 325 mg DAILYWBKFT PO Last administered on 12/18/16 08 :14; Start 12/15/16 at 08:00 Darbepoetin Jaskaran (Aranesp) 60 mcg WEEKLYHS SQ Last administered on 12/15/16 21 :51; Start 12/15/16 at 21:00 Lidocaine HCl 20 ml STK-MED ONCE .ROUTE ; Start 12/15/16 at 15:28; Stop at 15:29; Status DC Heparin Sodium/ Sodium Chloride 500 ml @ As Directed STK-MED ONCE .ROUTE ; Start 12/15/16 at 15:29; Stop 12/15/16 at 15:30; Status DC Iodixanol (Visipaque 320) 100 ml STK-MED ONCE .ROUTE ; Start 12/15/16 at 15:29; Stop 12/15/16 at 15:30; Status DC Prochlorperazine Edisylate (Compazine) 10 mg PRN Q6HRS PRN IV NAUSEA/VOMITING; Start 12/15/16 at 15:30 Prochlorperazine Edisylate (Compazine) 10 mg STK-MED ONCE .ROUTE ; Start at 15:31; Stop 12/15/16 at 15:32; Status DC Midazolam HCl (Versed) 2 mg STK-MED ONCE .ROUTE ; Start 12/15/16 at 15:53; Stop 12/15/16 at 15:54; Status DC Fentanyl Citrate (Fentanyl 5ml Vial) 250 mcg STK-MED ONCE .ROUTE ; Start at 15:54; Stop 12/15/16 at 15:55; Status DC Bivalirudin (Angiomax) 250 mg STK-MED ONCE IV ; Start 12/15/16 at 16:22; Stop at 16:23; Status DC Heparin Sodium/ Sodium Chloride 1,000 unit 1X ONCE IART Last administered on 17:35; Start 12/15/16 at 16:45; Stop 12/15/16 at 16:46; Status DC Midazolam HCl (Versed) 2 mg 1X ONCE IV Last administered on 12/15/16 17:36; Start 12/15/16 at 16:45; Stop 12/15/16 at 16:46; Status DC Fentanyl Citrate (Fentanyl 5ml Vial) 50 mcg 1X ONCE IV Last administered on 17:36; Start 12/15/16 at 16:45; Stop 12/15/16 at 16:46; Status DC Iodixanol (Visipaque 320) 100 ml 1X ONCE IART Last administered on 12/15/16 17:34; Start 12/15/16 at 16:45; Stop 12/15/16 at 16:46; Status DC Bivalirudin (Angiomax) 250 mg 1X ONCE IV Last administered on 12/15/16 17:35 ; Start 12/15/16 at 16:45; Stop 12/15/16 at 16:46; Status DC Lidocaine HCl 18 ml 1X ONCE IJ Last administered on 12/15/16 17:35; Start at 16:45; Stop 12/15/16 at 16:46; Status DC Info (Do NOT chart on this entry -- for MONITORING) 1 each PRN DAILY PRN MC SEE COMMENTS; Start 12/15/16 at 16:45; Stop 12/17/16 at 16:44; Status DC Nitroglycerin (Nitroglycerin) 200 mcg STK-MED ONCE .ROUTE ; Start 12/15/16 at 17 :00; Stop 12/15/16 at 17:01; Status DC Nitroglycerin (Nitroglycerin) 200 mcg 1X ONCE IART Last administered on 17:35; Start 12/15/16 at 17:30; Stop 12/15/16 at 17:31; Status DC Acetaminophen (Tylenol) 650 mg PRN Q6HRS PRN PO MILD PAIN / TEMP; Start at 17:45; Status UNV Nitroglycerin (Nitrostat) 0.4 mg PRN Q5MIN PRN SL CHEST PAIN; Start 12/15/16 at 17:45 Amiodarone HCl 150 mg/Dextrose 103 ml @ 10 mls/min 1X PRN PRN IV FOR VENTRICULAR TACHYCARDIA; Start 12/15/16 at 17:45 Amiodarone HCl (Cordarone) 200 mg DAILY PO Last administered on 12/18/16 08:15 ; Start 12/15/16 at 18:00 Sodium Chloride 1,000 ml @ 1,000 mls/hr Q1H PRN IV hypotension; Start 12/16/16 at 14:40; Stop 12/16/16 at 20:39; Status DC Info (PHARMACY MONITORING -- do not chart) 1 each PRN DAILY PRN MC SEE COMMENTS ; Start 12/16/16 at 14:45; Status UNV Info (PHARMACY MONITORING -- do not chart) 1 each PRN DAILY PRN MC SEE COMMENTS ; Start 12/16/16 at 14:45 Magnesium Sulfate/ Dextrose 50 ml @ 25 mls/hr 1X ONCE IV Last administered on 12/16/16 17:29; Start 12/16/16 at 17:30; Stop 12/16/16 at 19:29; Status DC Amiodarone HCl 75 mg/Dextrose 101.5 ml @ 618 mls/hr 1X ONCE IV Last administered on 12/16/16 19:35; Start 12/16/16 at 19:30; Stop 12/16/16 at 19:39 ; Status DC Amiodarone HCl 900 mg/Dextrose 518 ml @ 0 mls/hr CONT PRN IV SEE I/O RECORD Last administered on 12/16/16 19:45; Start 12/16/16 at 19:15; Stop 12/16/16 at 23:00; Status DC Amiodarone HCl 450 mg/Dextrose 259 ml @ 17.26 mls/ hr CONT PRN IV SEE I/O RECORD Last administered on 12/17/16 14:29; Start 12/17/16 at 11:00 Mexiletine HCl (Mexitil) 200 mg Q8HRS PO Last administered on 12/18/16 06:26; Start 12/17/16 at 15:00 Famotidine (Pepcid) 20 mg QHS PO Last administered on 12/17/16 21:07; Start at 21:00 Diphenhydramine HCl (Benadryl) 25 mg PRN Q6HRS PRN PO ITCHING Last administered on 12/17/16 21:07; Start 12/17/16 at 17:15 Active Scripts Active Mexiletine Hcl 200 Mg Capsule 200 Mg PO Q8HRS 30 Days Atorvastatin Calcium 10 Mg Tablet 10 Mg PO QHS 30 Days Amiodarone Hcl 200 Mg Tablet 200 Mg PO DAILY 30 Days Carvedilol 3.125 Mg Tablet 3.125 Mg PO BIDWMEALS Reported Sertraline Hcl 50 Mg Tablet 50 Mg PO QHS Sensipar (Cinacalcet Hcl) 30 Mg Tablet 1 Tab PO QHS Alayna-Oneil Rx Tablet (Vit B Cmplx 3/Fa/Vit C/Biotin) 1 Each Tablet 1 Each PO DAILY Cranberry Plus Vitamin C Sftgl (Cranberry Conc/Ascorbic Acid) 1 Each Capsule 1 Each PO DAILY Coricidin Hbp Tablet (Acetaminophen/Chlorpheniramine) 1 Each Tablet 1 Each PO PRN Alprazolam 0.25 Mg Tablet 1 Tab PO DAILY PRN Plavix (Clopidogrel Bisulfate) 75 Mg Tablet 75 Mg PO DAILY Calcium Acetate 667 Mg Tablet 2 Tab PO TIDWMEALS last dose was this am next dose is wiith supper Tylenol Extra Strength (Acetaminophen) 500 Mg Tablet 500 Mg PO PRN Q12HRS PRN not given in hospital may resume when needed Gabapentin 300 Mg Capsule 300 Mg PO DAILY Benadryl Allergy (Diphenhydramine Hcl) 25 Mg Tablet 25 Mg PO PRN not given in the hospital Aspir 81 (Aspirin) 81 Mg Tablet.dr 81 Mg PO DAILY last dose was this am resume in am Vitals/I & O Vital Sign - Last 24 Hours 12/17/16 12/17/16 12/17/16 12/17/16 12:00 16:00 17:04 20:00 Temp 98.2 98.2 97.8 98.2 98.2 97.8 Pulse 60 60 60 60 Resp 22 20 11 B/P (MAP) 132/57 (82) 171/85 (113) 171/85 167/83 (111) Pulse Ox 98 98 98 O2 Delivery Room Air Room Air Room Air 12/17/16 12/18/16 12/18/16 12/18/16 20:00 00:00 04:00 08:15 Temp 98.0 98.2 98.0 98.2 Pulse 60 60 60 Resp 15 13 B/P (MAP) 141/65 (90) 160/72 (101) 170/77 Pulse Ox 98 100 O2 Delivery Room Air Room Air Room Air 12/18/16 08:15 Pulse 60 B/P (MAP) 170/77 MICHELLE DOWD MD Dec 18, 2016 08:56
[2016-12-18] MEDS ORDERED: IV NORMAL SALINE 1000ML BAG 1,000 ML IV PRN ×2 (10:26)
[2016-12-18] MEDS ORDERED: DIALYSIS PATIENT. MC PRN (10:30)
[2016-12-18] MEDS ORDERED: diphenhydrAMINE 50 MG/ML VIAL IV PRN ×2 (10:30)
[2016-12-18] MEDS ORDERED: LABETALOL 20 MG/4 ML DISP.SYRIN. IVP PRN (10:30)
--- NOTE | 2016-12-18 11:25 | PDOC ---
Renal-Progress Notes Subjective Notes Notes NO NEW COMPLAINTS History of Present Illness Hx of present illness STABLE Vitals Vitals Vital Signs Date Time Temp Pulse Resp B/P (MAP) Pulse Ox O2 Delivery O2 Flow Rate FiO2 12/18/16 08:15 60 170/77 12/18/16 04:00 98.2 13 100 Room Air 98.2 12/17/16 08:00 2.0 Weight Weight [ ] Labs Labs Laboratory Tests Test 12/17/16 12:02 12/17/16 16:59 12/18/16 07:35 Glucose (Fingerstick) 161 mg/dL (70-99) 217 mg/dL (70-99) White Blood Count 6.2 x10^3/uL (4.0-11.0) Red Blood Count 2.56 x10^6/uL (3.50-5.40) Hemoglobin 7.8 g/dL (12.0-15.5) Hematocrit 23.2 % (36.0-47.0) Mean Corpuscular Volume 91 fL (79-100) Mean Corpuscular Hemoglobin 31 pg (25-35) Mean Corpuscular Hemoglobin Concent 34 g/dL (31-37) Red Cell Distribution Width 16.1 % (11.5-14.5) Platelet Count 146 x10^3/uL (140-400) Sodium Level 136 mmol/L (136-145) Potassium Level 4.4 mmol/L (3.5-5.1) Chloride Level 99 mmol/L (98-107) Carbon Dioxide Level 31 mmol/L (21-32) Anion Gap 6 (6-14) Blood Urea Nitrogen 24 mg/dL (7-20) Creatinine 4.6 mg/dL (0.6-1.0) Estimated GFR (Cockcroft-Gault) 9.6 Glucose Level 142 mg/dL (70-99) Calcium Level 7.8 mg/dL (8.5-10.1) Review of Systems Constitutional: yes: weakness, alert, oriented Ears/Nose/Throat: Yes: no symptom reported Eyes: Yes: no symptom reported Cardiovascular: Yes no symptom reported, Yes palpitations Genitourinary: Yes: no symptom reported Musculoskeletal: Yes: no symptom reported Skin: Yes no symptom reported Psychiatric/Neurological: Yes: no symptom reported Endocrine: Yes: no symptom reported Physical Exam General Appearance: no apparent distress Skin: warm Respiratory: bilateral CTA Heart: S1S2, RRR Abdomen: soft Genitourinary: bladder flat Extremities: pulses present Neurology: alert, oriented, follow commands Musculoskeletal: Other Assessment Assessment IMP CAD S/P PTCA AND STENT ANEMIA ESRD NON COMPLIANCE V TACH HTN-POORLY CONTROLLED PLAN HD TODAY INCREASE COREG ENC COMPLIANCE SUZY HOWARD MD Dec 18, 2016 11:25
[2016-12-18 12:00] VITALS: BP 154/66
[2016-12-18] MEDS: AMIODARONE 450 MG in IV DEXTROSE 5% 250 ML IV PRN (12:17)
--- NOTE | 2016-12-18 14:24 | PDOC ---
CARDIO Progress Notes Date and Time Date of Service 12/18/16 Time of Evaluation 1020 Subjective Subjective: No Chest Pain, No shortness of breath, No Palpitations, Other (had episode of sustained v-tach this morning with therapeutic shock) Vitals Vitals Vital Signs Date Time Temp Pulse Resp B/P (MAP) Pulse Ox O2 Delivery O2 Flow Rate FiO2 12/18/16 12:00 99.1 60 18 154/66 (95) 100 Room Air 99.1 12/17/16 08:00 2.0 Weight Weight [ ] Input and Output Intake and Output Intake and Output 12/19/16 07:00 Output Total 300 ml Balance -300 ml Output Urine Total 300 ml Laboratory Labs Laboratory Tests Test 12/17/16 16:59 12/18/16 07:35 12/18/16 12:22 Glucose (Fingerstick) 217 mg/dL (70-99) 130 mg/dL (70-99) White Blood Count 6.2 x10^3/uL (4.0-11.0) Red Blood Count 2.56 x10^6/uL (3.50-5.40) Hemoglobin 7.8 g/dL (12.0-15.5) Hematocrit 23.2 % (36.0-47.0) Mean Corpuscular Volume 91 fL (79-100) Mean Corpuscular Hemoglobin 31 pg (25-35) Mean Corpuscular Hemoglobin Concent 34 g/dL (31-37) Red Cell Distribution Width 16.1 % (11.5-14.5) Platelet Count 146 x10^3/uL (140-400) Sodium Level 136 mmol/L (136-145) Potassium Level 4.4 mmol/L (3.5-5.1) Chloride Level 99 mmol/L (98-107) Carbon Dioxide Level 31 mmol/L (21-32) Anion Gap 6 (6-14) Blood Urea Nitrogen 24 mg/dL (7-20) Creatinine 4.6 mg/dL (0.6-1.0) Estimated GFR (Cockcroft-Gault) 9.6 Glucose Level 142 mg/dL (70-99) Calcium Level 7.8 mg/dL (8.5-10.1) Review of Systems Constitutional: yes: weakness, alert, oriented Ears/Nose/Throat: Yes: no symptom reported Eyes: Yes: no symptom reported Cardiovascular: Yes no symptom reported, Yes palpitations Genitourinary: Yes: no symptom reported Musculoskeletal: Yes: no symptom reported Skin: Yes no symptom reported Psychiatric/Neurological: Yes: no symptom reported Endocrine: Yes: no symptom reported Physical Exam HEENT: Neck Supple W Full Motion Chest: Symmetric LUNGS: Clear to Auscultation Heart: S1S2, RRR, murmurs (3/6 systolic murmur ) Abdomen: Soft N/T Extremities: No Edema, Other Neurology: alert, oriented, follow commands Assessment Assessment 1. Hx of recent cardiac arrest/VT s/p AICD (Biotronik); patient continue to have multiple episode of v-tach despite revascularization. Early this morning, had episode of sustained VT; became unresponsive with therapeutic shock was delivered, which converted her to a normal sinus rhythm. Given that patient continues to have significant arrhythmias/VT despite resumption of Mexiletine and IV Amiodarone, will arrange transfer to for expedited EP evaluation. 2. CAD; S/p previous PCI/BMS to LAD. Cardiac cath yesterday revealed two- vessel disease. S/p successful PCI/stents to the RCA and LAD. Continue secondary prevention measures including DAPT with ASA and Plavix 3. Chronic diastolic HF; LVEF 50%. compensated. Continue fluid offloading/ management via HD as per nephrology 4. ESRD on HD. 5. Hypertension; well-controlled 6. Hyperlipidemia; statin therapy 7. Diabetes; as per ESTEPHANIA KNIGHT APRN Dec 18, 2016 14:24
[2016-12-18 16:00] VITALS: BP 163/71
[2016-12-18] MEDS ORDERED: CARVEDILOL 12.5 MG TABLET. PO SCH (17:00)
--- NOTE | 2016-12-19 17:56 | PDOC3 ---
Discharge Summary Visit Information Date of Admission: Dec 14, 2016 Date of Discharge: Dec 18, 2016 Admitting Diagnosis Comment: Chief Complaint ICD spikes with VT, non sustained chronic severe diastolic CHF, EF 55%, with uncontrolled HTN, pulmonary edema recent Acute respiratory failure with underlying COPD and possible JOSE ALFREDO normacytic Anemia, chronic likely, ESRD, CHF, cannot rule out GIB tho ESRD on HD ttsat HTN Hx of recent cardiac arrest/Vtach: S/P AICD/PPM (biotronik). h/o CAD: S/P PCI/BMS to LAD: 10/24 with subsequent LHC on 11/13/2016 with patent stent DM2/HLP Mod to severe MR: last noted 10/21/2016. PAD: RCFA stenosis with no claudication symptoms. w/u at a later date. Noncompliance, signed AMA from PP recently elevated troponin with ESRD mild malnutrition, low albumin with ESRD severe MR CAD with PCI 6 stents via LHC (12/15) Final Diagnosis Problems Medical Problems: (1) Ventricular tachycardia Status: Acute Brief Hospital Course Allergies Allergies Coded Allergies Type Severity Reaction Last Updated Verified ciprofloxacin Allergy Intermediate Rash 01/25/15 Yes morphine Adverse Reaction Severe makes her skin crawl 01/25/15 Yes oxycodone Adverse Reaction Severe makes her skin crawl 01/25/15 Yes adhesive Adverse Reaction Intermediate blisters 01/25/15 Yes Vital Signs Vital Signs Date Time Temp Pulse Resp B/P (MAP) Pulse Ox O2 Delivery O2 Flow Rate FiO2 12/18/16 16:00 98.9 60 20 163/71 (101) 98 Room Air 98.9 Lab Results Laboratory Tests Test 12/18/16 07:35 12/18/16 12:22 White Blood Count 6.2 x10^3/uL (4.0-11.0) Red Blood Count 2.56 x10^6/uL (3.50-5.40) Hemoglobin 7.8 g/dL (12.0-15.5) Hematocrit 23.2 % (36.0-47.0) Mean Corpuscular Volume 91 fL (79-100) Mean Corpuscular Hemoglobin 31 pg (25-35) Mean Corpuscular Hemoglobin Concent 34 g/dL (31-37) Red Cell Distribution Width 16.1 % (11.5-14.5) Platelet Count 146 x10^3/uL (140-400) Sodium Level 136 mmol/L (136-145) Potassium Level 4.4 mmol/L (3.5-5.1) Chloride Level 99 mmol/L (98-107) Carbon Dioxide Level 31 mmol/L (21-32) Anion Gap 6 (6-14) Blood Urea Nitrogen 24 mg/dL (7-20) Creatinine 4.6 mg/dL (0.6-1.0) Estimated GFR (Cockcroft-Gault) 9.6 Glucose Level 142 mg/dL (70-99) Calcium Level 7.8 mg/dL (8.5-10.1) Glucose (Fingerstick) 130 mg/dL (70-99) Brief Hospital Course Ms. Glover is a 66 old female who was a readmission, BAsically she was here in [facility] ICU for arrhthymia, quite a prolonged stay bec of hard to control rate, persistent needing amio gtt etc, She also has ESRD on HD, She was dcd to [facility] as she was weak, BUt she only stayed there few days and went AMA and says she did not get any RX, So she went home with no RX for rate control agents and in 2 days back in hospital in ICU with several runs of vtach that she gets shocked by her indwelling AICd/pacer that cards placed last admit bec of persistent arrhthymia. Despite gtts and conservative mx she would syncopize at ICU (with her defibrillator going off), hence transferred to with EP capabilities. Seen and examined,. 2 notes. Paperwork done, [facility] arranged for transfer Discharge Information Condition at Discharge: Stable Disposition/Orders: D/C to Another Facility Scheduled Amiodarone Hcl (Amiodarone Hcl), 200 MG PO DAILY Aspirin (Aspir 81), 81 MG PO DAILY, (Reported) Atorvastatin Calcium (Atorvastatin Calcium), 10 MG PO QHS Calcium Acetate (Calcium Acetate), 2 TAB PO TIDWMEALS, (Reported) Carvedilol (Carvedilol), 3.125 MG PO BIDWMEALS Cinacalcet Hcl (Sensipar), 1 TAB PO QHS, (Reported) Clopidogrel Bisulfate (Plavix), 75 MG PO DAILY, (Reported) Cranberry Conc/Ascorbic Acid (Cranberry Plus Vitamin C Sftgl), 1 EACH PO DAILY, (Reported) Gabapentin (Gabapentin), 300 MG PO DAILY, (Reported) Mexiletine Hcl (Mexiletine Hcl), 200 MG PO Q8HRS Sertraline Hcl (Sertraline Hcl), 50 MG PO QHS, (Reported) Vit B Cmplx 3/Fa/Vit C/Biotin (Alayna-Oneil Rx Tablet), 1 EACH PO DAILY, (Reported) Scheduled PRN Acetaminophen (Tylenol Extra Strength), 500 MG PO PRN Q12HRS PRN for PAIN, ( Reported) Acetaminophen/Chlorpheniramine (Coricidin Hbp Tablet), 1 EACH PO for CONGESTION, (Reported) Alprazolam (Alprazolam), 1 TAB PO DAILY PRN for ANXIETY / AGITATION, (Reported) Diphenhydramine Hcl (Benadryl Allergy), 25 MG PO for ALLERGIES, (Reported) Discontinued Medications Furosemide (Furosemide), 60 MG PO PRN PRN for SEE COMMENTS, (Reported) Lisinopril (Lisinopril), 40 MG PO QTUTHSASU Metolazone (Metolazone), 2.5 MG PO 3X/WEEK PRN for edema, (Reported) MICHELLE DOWD MD Dec 19, 2016 17:56
== END 2016-12-18 16:35 | disposition short-term general hospital (02) | DRG 248 ==
LOC: ER 12:44 → 1 WEST ICU 14:20
PROVIDERS: ADMIT Internal Medicine; ATTEND Internal Medicine
PROC: 5A1D60Z (ICD-10-PCS; 2016-12-14)
PROC: 02713GZ Dilation of Coronary Artery, Two Arteries with Four or More Intraluminal Devices, Percutaneous Approach (ICD-10-PCS; principal; 2016-12-15)
PROC: 4A023N7 Measurement of Cardiac Sampling and Pressure, Left Heart, Percutaneous Approach (ICD-10-PCS; 2016-12-15)
PROC: B2111ZZ Fluoroscopy of Multiple Coronary Arteries using Low Osmolar Contrast (ICD-10-PCS; 2016-12-15)
PROC: 4A033BC Measurement of Arterial Pressure, Coronary, Percutaneous Approach (ICD-10-PCS; 2016-12-15)
PROC: 30233N1 Transfusion of Nonautologous Red Blood Cells into Peripheral Vein, Percutaneous Approach (ICD-10-PCS; 2016-12-15)
DX: T82.855A Stenosis of coronary artery stent, initial encounter (principal); I21.4 Non-ST elevation (NSTEMI) myocardial infarction; I47.2 Ventricular tachycardia; I13.2 Hypertensive heart and chronic kidney disease with heart failure and with stage 5 chronic kidney disease, or end stage renal disease; N18.6 End stage renal disease; I50.42 Chronic combined systolic (congestive) and diastolic (congestive) heart failure; E44.1 Mild protein-calorie malnutrition; J44.9 Chronic obstructive pulmonary disease, unspecified; D64.9 Anemia, unspecified; I25.10 Atherosclerotic heart disease of native coronary artery without angina pectoris; E78.5 Hyperlipidemia, unspecified; I34.0 Nonrheumatic mitral (valve) insufficiency; E11.22 Type 2 diabetes mellitus with diabetic chronic kidney disease; E11.51 Type 2 diabetes mellitus with diabetic peripheral angiopathy without gangrene; F17.210 Nicotine dependence, cigarettes, uncomplicated; Y83.8 Other surgical procedures as the cause of abnormal reaction of the patient, or of later complication, without mention of misadventure at the time of the procedure; I70.201 Unspecified atherosclerosis of native arteries of extremities, right leg; F32.9 Major depressive disorder, single episode, unspecified; E21.3 Hyperparathyroidism, unspecified; Z83.3 Family history of diabetes mellitus; Z86.74 Personal history of sudden cardiac arrest; Z91.19 Patient's noncompliance with other medical treatment and regimen; Z68.27 Body mass index [BMI] 27.0-27.9, adult; Z90.710 Acquired absence of both cervix and uterus; Z99.2 Dependence on renal dialysis; Z90.49 Acquired absence of other specified parts of digestive tract
CPT/HCPCS: 36415; 80048; 80053; 80076; 82553; 82607; 82728; 82746; 82962; 83036; 83540; 83550; 83735; 84484; 85025; 85027; 86850; 86900; 86901; 86920; 92928; 93005; 93458; 93571; 99152; 99153; C1725; C1769; C1771; C1877; C1887; C1892; G0269; J0282; J0583; J0881; J1644; J1815; J2250; J2405; J3010; J3490; J7060; P9016; Q0163; 99291-25; J2001

== ENCOUNTER 2017-01-06 08:42 | Inpatient (IN) | payer MEDICARE, BC ==
[~2017-01-06] VITALS: Ht 162.6 cm; Wt 77.1 kg
[2017-01-06] MEDS ORDERED: IV NORMAL SALINE 1000ML BAG 1,000 ML IV SCH (08:55)
[2017-01-06] MEDS ORDERED: fentaNYL PF VIAL 100 MCG/2 ML VIAL IV PRN ×2 (09:00→09:30)
[2017-01-06] MEDS ORDERED: methylPREDNISolone SOD SUCC PF 125 MG/2 ML VIAL. IV ONE (09:00)
[2017-01-06] MEDS ORDERED: ASPIRIN CHEWABLE 81 MG TABLET. PO ONE (09:00)
[2017-01-06] MEDS ORDERED: 0.9 % SODIUM CHLORIDE 10 ML DISP.SYRIN. IV PRN (09:00)
[2017-01-06] MEDS ORDERED: IPRATRPIUM/ALBUTEROL 0.5/2.5MG 3 ML NEBU. NEB ONE (09:00)
--- NOTE | 2017-01-06 09:14 | PHYS DOC ---
Past Medical History Past Medical History: Anemia, Diabetes-Type II, Hypertension, Renal Failure Additional Past Medical Histor: dialysis Past Surgical History: Cholecystectomy, Hysterectomy, Tonsillectomy, Other Additional Past Surgical Histo: cardiac cath 10/2016-w/stent placement, back surgery,rotator cuff Alcohol Use: None Drug Use: None Adult General Chief Complaint Chief Complaint: SHORTNESS OF BREATH HPI HPI This patient is a pleasant 66-year-old female with a history of hypertension, anemia, diabetes type 2, end-stage renal disease requiring dialysis Thursday who presents with increasing shortness of breath. There is a question was to have COPD and congestive heart or in the past with her fluid overload's last month she was seen in our emergency department for respiratory distress and was eventually diagnosed with ventricular tachycardia requiring direct intervention in the placement of an AICD. Patient was seen and stabilized in her hospital system and then transferred to for other further studies. Since that time she's been home resting comfortably on Thursday she began experiencing UTI symptoms and followed up with her local urgent care family practice doctor and was placed on 250 mg of amoxicillin twice daily for the last 3 days. She has noted earlier this morning increasing shortness of breath with exertion difficulty laying down flat. She's had a mild nonproductive cough without fevers, chills or abdominal pain. She's had no nausea, vomiting, diarrhea but has had mild chest discomfort lasting a few moments with exertion. The pain does not radiate to her jaw, back or arms. She denies any trauma other than what she sustained while undergoing studies at [facility]. She denies any swelling in her lower legs since new but it is chronic. Her dry weight after dialysis is 79.2 kg. Patient's medications include Plavix and aspirin. She denies any major changes to her medications other than the addition of amoxicillin 3 days ago. Review of Systems Review of Systems Constitutional: Denies fever or chills [] Eyes: Denies change in visual acuity, redness, or eye pain [] HENT: Patient has had some mild nasal congestion without sore throat. Respiratory: Patient does have a nonproductive cough with increasing shortness breath Cardiovascular: No additional information not addressed in HPI [] GI: Denies abdominal pain, nausea, vomiting, bloody stools or diarrhea [] : Patient did have some dysuria urgency and frequency several days ago. Musculoskeletal: Denies back pain or joint pain [] Integument: Denies rash or skin lesions [] Neurologic: Denies headache, focal weakness or sensory changes [] Current Medications Current Medications Current Medications Medications (Trade) Dose Ordered Sig/Liza Start Time Stop Time Status Last Admin Dose Admin Albuterol/ Ipratropium (Duoneb) 3 ml 1X ONCE 01/06/17 09:00 01/06/17 09:03 DC 01/06/17 09:16 3 ML Aspirin (Children'S Aspirin) 324 mg 1X ONCE 01/06/17 09:00 01/06/17 09:03 DC 01/06/17 09:17 324 MG Calcium Gluconate (Calcium Gluconate) 1,000 mg 1X ONCE 01/06/17 09:30 01/06/17 09:31 DC 01/06/17 09:21 1,000 MG Dextrose 500 ml @ 0 mls/hr 1X ONCE 01/06/17 09:30 01/06/17 09:31 DC 01/06/17 10:24 500 MLS/HR Fentanyl Citrate (Fentanyl 2ml Vial) 50 mcg PRN Q2HR PRN 01/06/17 09:30 01/07/17 09:29 Furosemide (Lasix) 80 mg 1X ONCE 01/06/17 09:30 01/06/17 09:31 DC 01/06/17 10:10 80 MG Insulin Human Regular (NovoLIN R VIAL) 10 unit 1X ONCE 01/06/17 09:30 01/06/17 09:31 DC 01/06/17 10:20 10 UNIT Lorazepam (Ativan) 1 mg 1X ONCE 01/06/17 09:00 01/06/17 09:03 DC 01/06/17 09:20 1 MG Methylprednisolone Sodium Succinate (SOLU-Medrol 125MG VIAL) 125 mg 1X ONCE 01/06/17 09:00 01/06/17 09:03 DC 01/06/17 09:19 125 MG Ondansetron HCl (Zofran) 4 mg PRN Q8HRS PRN 01/06/17 09:30 01/07/17 09:29 Sodium Chloride (Normal Saline Flush) 10 ml QSHIFT PRN 01/06/17 09:00 Allergies Allergies Allergies Coded Allergies Type Severity Reaction Last Updated Verified ciprofloxacin Allergy Intermediate Rash 01/25/15 Yes morphine Adverse Reaction Severe makes her skin crawl 01/25/15 Yes oxycodone Adverse Reaction Severe makes her skin crawl 01/25/15 Yes adhesive Adverse Reaction Intermediate blisters 01/25/15 Yes Physical Exam Physical Exam Vital signs recorded on the chart upon arrival patient noted to be mildly tachypnea not hypoxic not febrile but very hypertensive. Constitutional: Well developed, well nourished, patient is in some respiratory distress with no obvious retractions or accessory muscle use. HENT: Normocephalic, atraumatic, bilateral external ears normal, oropharynx very dry no oral exudates, nose normal. [] Eyes: PERRLA, EOMI, conjunctiva normal, no discharge. [] Neck: Normal range of motion, no tenderness, supple, no stridor. [] Cardiovascular: Irregularly irregular rhythm with no gallops or rubs. Patient has marked chest wall ecchymoses and bruising from prior procedures. She is a well-healing AICD pacemaker placed in the left upper chest wall Lungs & Thorax: Decreased breath sounds bilaterally with slight wheeze throughout all lung gómez no rhonchi crackles or rales the bases. Abdomen: Bowel sounds normal, soft, no tenderness, no masses, no pulsatile masses. [] Skin: Warm, dry, no erythema, no rash. [] Back: No tenderness, no CVA tenderness. [] Extremities: No tenderness, no cyanosis, CLUBBING noted of the fingertips. ROM intact, she has marked edema of the lower extremities +2 pitting edema Neurologic: Alert and oriented X 3, normal motor function, normal sensory function, no focal deficits noted. [] Psychologic: Affect normal, judgement normal, mood normal. [] Current Patient Data Vital Signs Vital Signs Date Time Temp Pulse Resp B/P (MAP) Pulse Ox O2 Delivery O2 Flow Rate FiO2 01/06/17 09:21 95 Room Air 01/06/17 09:20 16 01/06/17 09:19 82 197/84 (121) 01/06/17 08:51 98.6 98.6 Lab Values Laboratory Tests Test 01/06/17 09:00 01/06/17 09:17 White Blood Count 8.5 x10^3/uL (4.0-11.0) Red Blood Count 2.75 x10^6/uL (3.50-5.40) L Hemoglobin 8.5 g/dL (12.0-15.5) L Hematocrit 26.3 % (36.0-47.0) L Mean Corpuscular Volume 96 fL (79-100) Mean Corpuscular Hemoglobin 31 pg (25-35) Mean Corpuscular Hemoglobin Concent 32 g/dL (31-37) Red Cell Distribution Width 16.7 % (11.5-14.5) H Platelet Count 175 x10^3/uL (140-400) Neutrophils (%) (Auto) 76 % (31-73) H Lymphocytes (%) (Auto) 15 % (24-48) L Monocytes (%) (Auto) 6 % (0-9) Eosinophils (%) (Auto) 2 % (0-3) Basophils (%) (Auto) 1 % (0-3) Neutrophils # (Auto) 6.4 x10^3uL (1.8-7.7) Lymphocytes # (Auto) 1.3 x10^3/uL (1.0-4.8) Monocytes # (Auto) 0.5 x10^3/uL (0.0-1.1) Eosinophils # (Auto) 0.2 x10^3/uL (0.0-0.7) Basophils # (Auto) 0.1 x10^3/uL (0.0-0.2) Sodium Level 138 mmol/L (136-145) Potassium Level 7.1 mmol/L (3.5-5.1) *H Chloride Level 104 mmol/L (98-107) Carbon Dioxide Level 25 mmol/L (21-32) Anion Gap 9 (6-14) 18 mmol/L (6-14) H Blood Urea Nitrogen 68 mg/dL (7-20) H Creatinine 7.9 mg/dL (0.6-1.0) H Estimated GFR (Cockcroft-Gault) 5.1 BUN/Creatinine Ratio 9 (6-20) Glucose Level 213 mg/dL (70-99) H 201 mg/dL (70-99) H Lactic Acid Level 1.6 mmol/L (0.4-2.0) Calcium Level 7.9 mg/dL (8.5-10.1) L Magnesium Level 2.3 mg/dL (1.8-2.4) Total Bilirubin 0.3 mg/dL (0.2-1.0) Aspartate Amino Transferase (AST) 29 U/L (15-37) Alanine Aminotransferase (ALT) 26 U/L (14-59) Alkaline Phosphatase 134 U/L (46-116) H Creatine Kinase 73 U/L (26-192) Creatine Kinase MB (Mass) 0.7 ng/mL (0.0-3.6) Creatine Kinase MB Relative Index % (0-4) Troponin I Quantitative 0.017 ng/mL (0.000-0.055) GY-Hsj-C-Type Natriuretic Peptide > 87979 pg/mL (0-124) H Total Protein 6.5 g/dL (6.4-8.2) Albumin 2.9 g/dL (3.4-5.0) L Albumin/Globulin Ratio 0.8 (1.0-1.7) L Lipase 170 U/L (73-393) Thyroid Stimulating Hormone (TSH) 5.647 uIU/mL (0.358-3.74) H POC Hemoglobin 9.2 g/dL (12-15) L POC Hematocrit 27 % (36-40) L POC Sodium 137 mmol/L (135-145) POC Potassium 7.0 mmol/L (3.5-5.0) H POC Chloride 105 mmol/L (98-110) POC Total CO2 22 mmol/L (23-32) L POC Blood Urea Nitrogen 71 mg/dL (8-26) H POC Creatinine 8.0 mg/dL (0.5-1.4) H POC Ionized Calcium (Jay) 1.02 mmol/L (1.13-1.32) L Laboratory Tests 01/06/17 09:00 Laboratory Tests 01/06/17 09:00 01/06/17 09:17 EKG EKG []Recent EKG timed 8:55 AM 01/06/2017 demonstrates irregularly irregular rhythm with no obvious pacer spikes that is captured patient is a very wide almost sinusoidal QRS complexes with flattened P waves and very weak T waves very concerning for possible severe hyperkalemia. Patient's QRS width is 238. EKG read by me there is marked significant increase in QRS width in comparison with prior EKG from 12/14/2016 Radiology/Procedures Radiology/Procedures [] Course & Med Decision Making Course & Med Decision Making Pertinent Labs and Imaging studies reviewed. (See chart for details) On arrival patient being evaluated for shortness of breath. At approximately 8: 55 AM patient's EKG demonstrated a concerning widening QRS complex given her recent history of dialysis requiring I also sent Thursday and Thursday it is been recognized or suspected that this QRS width is likely secondary to hyperkalemia. Patient was immediately given a bolus of fluids and calcium gluconate IV thousand milligrams over 3-5 minutes in order to treat this hyperkalemia. We'll verify my suspicions with an i-STAT at the bedside. Patient will have other therapy is initiated for hyperkalemia to include albuterol, insulin and glucose, more calcium gluconate if necessary and fluids and Lasix. I'm is now 9:05 AM []Patient tells me that their symptoms given during CC are improved. I discussed the elevated potassium level of 7.0 to start on i-STAT upon return at approximately 9:17 AM Time is now 9:20 AM I have initiated and additional treatments for continued to include 10 it's of regular insulin, 500 mL's of 10% dextrose, she is already receiving and getting albuterol and Atrovent nebs she is getting a liter of fluids and she is gotten calcium gluconate ready. I repeated an EKG in 15 minutes to ensure that the QRS is narrowing. Engineer Process note: Internal medicine service 9:20 AM Engineer Process called at of the service 9:24 am Consult called back at Discussed the case I presented and they agreed with admission. Time of acceptance 9:25 am Engineer Process note: Nephrology building services coordinator called at of the service: Initially at 9:22 AM Consult called back at 9:24 AM: Dr. Mora Discussed the case I presented and they agreed with admission. I asked specifically to arrange emergent dialysis Differential diagnosis: Acute myocardial ischemia, heart failure, cardiac tamponade, bronchospasm, pulmonary embolism, pneumothorax, pulmonary infection i.e. bronchitis or pneumonia, upper airway obstruction, anaphylaxis, aspiration , psychogenic, pulmonary contusion, toxidrome, pneumomediastinum, noncardiogenic pulmonary edema or ARDS, COPD, tuberculosis, cystic fibrosis, asthma, high altitude pulmonary edema, valvular dysfunction, cardiac dysrhythmia , stroke, neuromuscular diseases like myasthenia gravis gravis, ALS, Guillain- Smith syndrome, metabolic acidosis to include diabetic ketoacidosis, sepsis, and obstructive disorders like massive obesity was considered upon arrival but immediately recognize an EKG is abnormal and her history of COPD fluid overload CHF and possible pneumonia I aggressively treated her with appropriate medication to remove and reduce her potassium levels. Her recent history of ventricular tachycardia patient is potentially very sick to be admitted to the ICU. Critical Care: The high probability of sudden, clinically significant deterioration in the patient's condition required the highest level of my preparedness to intervene urgently. The services I provided to this patient were to treat and/or prevent clinically significant deterioration. Services included the following: chart data review, reviewing nursing notes and/or old charts, documentation time, audit consultant collaboration regarding findings and treatment options, medication orders and management, direct patient care, vital sign assessments and ordering, interpreting and reviewing diagnostic studies/ lab tests. Aggregate critical care time includes only time during which I was engaged in work directly related to the patient's care, as described above, whether at the bedside or elsewhere in the Emergency Department. It did not include time spent performing other reported procedures or the services of nurses or physician assistants. Critical Care Time: 45 minutes Dragon Disclaimer Dragon Disclaimer This electronic medical record was generated, in whole or in part, using a voice recognition dictation system. Departure Departure Impression: Primary Impression: Hyperkalemia Additional Impressions: Abnormal EKG Dyspnea Hypertension Chronic renal failure Disposition: ADMITTED INPATIENT Admitting Physician: Vera Ruiz Condition: GUARDED Referrals: ALESIA ZAVALA YARN EXAMINER SKEINS (PCP) Problem Qualifiers MARY WOLF MD Jan 06, 2017 09:14
[2017-01-06 09:22] LABS: BASO # 0.1 x10^3/uL (0.0-0.2); BASO % 1 % (0-3); EOS % 2 % (0-3); HEMATOCRIT 26.3 % (36.0-47.0); HEMOGLOBIN 8.5 g/dL (12.0-15.5); LYMPH # 1.3 x10^3/uL (1.0-4.8); LYMPH % 15 % (24-48); MEAN CORPUSCULAR HEMOGLOBIN 31 pg (25-35); MEAN CORPUSCULAR HGB CONC 32 g/dL (31-37); MEAN CORPUSCULAR VOLUME 96 fL (79-100); MONO % 6 % (0-9); NEUT % 76 % (31-73); PLATELET COUNT 175 x10^3/uL (140-400); RED BLOOD COUNT 2.75 x10^6/uL (3.50-5.40); RED CELL DISTRIBUTION WIDTH 16.7 % (11.5-14.5); WHITE BLOOD COUNT 8.5 x10^3/uL (4.0-11.0)
[2017-01-06] MEDS ORDERED: IV DEXTROSE 10% 500 ML IV ONE (09:30)
[2017-01-06] MEDS ORDERED: INSULIN REGULAR 100 UNIT/ML 10ML VIAL. IV ONE (09:30)
[2017-01-06] MEDS ORDERED: ONDANSETRON PF 4 MG/2 ML VIAL. IV PRN (09:30)
[2017-01-06] MEDS ORDERED: CALCIUM GLUCONATE 100 MG/ML VIAL for DOSE IN MG. IV ONE (09:30)
[2017-01-06] MEDS ORDERED: FUROSEMIDE 40 MG/4 ML VIAL. IVP ONE (09:30)
[2017-01-06 09:39] LABS: MAGNESIUM 2.3 mg/dL (1.8-2.4)
[2017-01-06 09:55] LABS: ALBUMIN 2.9 g/dL (3.4-5.0); ALBUMIN/GLOBULIN RATIO 0.8 (1.0-1.7); CALCIUM 7.9 mg/dL (8.5-10.1); CREATININE 7.9 mg/dL (0.6-1.0); GFR 5.1; TOTAL BILIRUBIN 0.3 mg/dL (0.2-1.0); TOTAL PROTEIN 6.5 g/dL (6.4-8.2)
--- NOTE | 2017-01-06 09:56 | RAD ---
Indication shortness of breath. A single view of the chest was obtained and is compared to an examination 12/11/2016. Heart size is unchanged. There are patchy pulmonary infiltrates suggesting moderate pulmonary vascular congestion. The degree of failure is not as pronounced however as on the previous exam. There may be tiny pleural effusions. There is no consolidated pneumonia. Defibrillating and cardiac pacing device is noted. IMPRESSION: Patchy infiltrates suggesting mild congestive heart failure not as pronounced as on the previous exam
[2017-01-06 09:57] LABS: CKMB MASS 0.7 ng/mL (0.0-3.6); CREATINE KINASE 73 U/L (26-192)
[2017-01-06 09:58] LABS: POTASSIUM 7.1 mmol/L (3.5-5.1)
--- NOTE | 2017-01-06 10:24 | EKG ---
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
[2017-01-06 10:53] LABS: BILIRUBIN,URINE NEGATIVE (NEG); GLUCOSE,URINE 250 mg/dL (NEG); NITRITE,URINE NEGATIVE (NEG); PROTEIN,URINE >=300 mg/dL (NEG-TRACE); UROBILINOGEN,URINE 0.2 mg/dL (0.2 mg/dL)
[2017-01-06 11:01] LABS: BACTERIA,URINE FEW /HPF (0-FEW); SQUAMOUS EPITHELIAL CELL,UR MOD /LPF
[2017-01-06 11:29] VITALS: BP 137/62
--- NOTE | 2017-01-06 11:31 | PDOC2 ---
CONSULT Date of Consult Date of Consult DATE: 01/06/17 TIME: 11:22 Reason for Consult Reason for Consult: ESRD, SOB and ^ed K Referring Physician Referring Physician: OVIDIO Identification/Chief Complaint Chief Complaint SOB Problems: Source Source: Chart review, Patient History of Present Illness Reason for Visit: as dictated Past Medical History Cardiovascular: HTN, Valve insufficiency, Other Pulmonary: COPD CENTRAL NERVOUS SYSTEM: Other GI: No pertinent hx Heme/Onc: Anemia NOS Hepatobiliary: No pertinent hx Psych: Depression Musculoskeletal: Other Rheumatologic: No pertinent hx Infectious disease: No pertinent hx Renal/: Chronic renal failure Endocrine: Diabetes, Hyperparathyroidism Past Surgical History Past Surgical History: Arthroscopy, Cholecystectomy, Tonsillectomy, Hysterectomy, Other Family History Family History: Diabetes Social History ALCOHOL: rare Drugs: None Lives: with Family Current Problem List Problem List Problems Medical Problems: (1) Abnormal EKG Status: Acute (2) Chronic renal failure Status: Acute (3) Dyspnea Status: Acute (4) Hyperkalemia Status: Acute (5) Hypertension Status: Acute Current Medications Current Medications Current Medications Aspirin (Children'S Aspirin) 324 mg 1X ONCE PO Last administered on 09:17; Start 01/06/17 at 09:00; Stop 01/06/17 at 09:03; Status DC Fentanyl Citrate (Fentanyl 2ml Vial) 50 mcg PRN Q15MIN PRN IV PAIN GREATER THAN 3/10 Last administered on 01/06/17 09:20; Start 01/06/17 at 09:00; Stop 01/07/17 at 08:59 Sodium Chloride 1,000 ml @ 1,000 mls/hr Q1H IV Last administered on 09:18; Start 01/06/17 at 08:55; Stop 01/06/17 at 09:54; Status DC Sodium Chloride (Normal Saline Flush) 10 ml QSHIFT PRN IV AFTER MEDS AND BLOOD DRAWS; Start 01/06/17 at 09:00 Albuterol/ Ipratropium (Duoneb) 3 ml 1X ONCE NEB Last administered on 09:16; Start 01/06/17 at 09:00; Stop 01/06/17 at 09:03; Status DC Lorazepam (Ativan) 1 mg 1X ONCE IV Last administered on 01/06/17 09:20; Start 01/06/17 at 09:00; Stop 01/06/17 at 09:03; Status DC Methylprednisolone Sodium Succinate (SOLU-Medrol 125MG VIAL) 125 mg 1X ONCE IV Last administered on 01/06/17 09:19; Start 01/06/17 at 09:00; Stop at 09:03; Status DC Calcium Gluconate (Calcium Gluconate) 1,000 mg 1X ONCE IV Last administered on 01/06/17 09:21; Start 01/06/17 at 09:30; Stop 01/06/17 at 09:31; Status DC Furosemide (Lasix) 80 mg 1X ONCE IVP Last administered on 01/06/17 10:10; Start 01/06/17 at 09:30; Stop 01/06/17 at 09:31; Status DC Insulin Human Regular (NovoLIN R VIAL) 10 unit 1X ONCE IV Last administered on 01/06/17 10:20; Start 01/06/17 at 09:30; Stop 01/06/17 at 09:31; Status DC Dextrose 500 ml @ 0 mls/hr 1X ONCE IV Last administered on 01/06/17 10:24; Start 01/06/17 at 09:30; Stop 01/06/17 at 09:31; Status DC Ondansetron HCl (Zofran) 4 mg PRN Q8HRS PRN IV NAUSEA/VOMITING; Start at 09:30; Stop 01/07/17 at 09:29 Fentanyl Citrate (Fentanyl 2ml Vial) 50 mcg PRN Q2HR PRN IV PAIN; Start at 09:30; Stop 01/07/17 at 09:29 Albuterol/ Ipratropium (Duoneb) 3 ml RTQID NEB ; Start 01/06/17 at 12:00; Stop 01/07/17 at 11:59 Active Scripts Active Mexiletine Hcl 200 Mg Capsule 200 Mg PO Q8HRS 30 Days Atorvastatin Calcium 10 Mg Tablet 10 Mg PO QHS 30 Days Amiodarone Hcl 200 Mg Tablet 200 Mg PO DAILY 30 Days Carvedilol 3.125 Mg Tablet 3.125 Mg PO BIDWMEALS Reported Sertraline Hcl 50 Mg Tablet 50 Mg PO QHS Sensipar (Cinacalcet Hcl) 30 Mg Tablet 1 Tab PO QHS Alayna-Oneil Rx Tablet (Vit B Cmplx 3/Fa/Vit C/Biotin) 1 Each Tablet 1 Each PO DAILY Cranberry Plus Vitamin C Sftgl (Cranberry Conc/Ascorbic Acid) 1 Each Capsule 1 Each PO DAILY Coricidin Hbp Tablet (Acetaminophen/Chlorpheniramine) 1 Each Tablet 1 Each PO PRN Alprazolam 0.25 Mg Tablet 1 Tab PO DAILY PRN Plavix (Clopidogrel Bisulfate) 75 Mg Tablet 75 Mg PO DAILY Calcium Acetate 667 Mg Tablet 2 Tab PO TIDWMEALS last dose was this am next dose is wiith supper Tylenol Extra Strength (Acetaminophen) 500 Mg Tablet 500 Mg PO PRN Q12HRS PRN not given in hospital may resume when needed Gabapentin 300 Mg Capsule 300 Mg PO DAILY Benadryl Allergy (Diphenhydramine Hcl) 25 Mg Tablet 25 Mg PO PRN not given in the hospital Aspir 81 (Aspirin) 81 Mg Tablet.dr 81 Mg PO DAILY last dose was this am resume in am Allergies Allergies: Coded Allergies: ciprofloxacin (Verified Allergy, Intermediate, Rash, 01/25/15) morphine (Verified Adverse Reaction, Severe, makes her skin crawl, 01/25/15 ) oxycodone (Verified Adverse Reaction, Severe, makes her skin crawl, ) adhesive (Verified Adverse Reaction, Intermediate, blisters, 01/25/15) "use paper tape" ROS Review of System GEN: no Fevers no Chills EYES: no Visual Complaints ENT: no EN Drainage no Hearing deficiets CVS: min Orthopnea no CP RESP: + SOB + MENDOZA GI: no Nausea no Vomiting : no Dysuria no Urgency HEME: no easy bruising no Palp Ly Nodes NEURO no Focal Weakness no Sz PSYCH: no Suicidal Ideation no Depression SKIN: n Rashes ENDO: elva Polyuria or Polydipsia no Hot/Cold Intolerance MU SK: no Arthraigia no Myalgia Physical Exam Physical Exam General Appearance: Awake Alert Oriented x 3 In min resp Distress Eyes: VIsion Unchanged Conjunctiva Normal EN: No EN Drainage Mucous Memb. mnoist Neck: no JVD min JVP Supple no Thyromegaly CVS: S1 S2 + Murmur No Gallop No Rub +1 Edema Resp: rare basal Rales no Rhonchi min Acc. Muscle use GI: BAS +ve NO Bruit Non Tender Non Distended : no CVA tenderness; no Suprapubic Tenderness SKIN: no visible Rashes Breast Exam deferred Mu.Sk: Adequate ROM no Muscle Atrophy Heme: Unable to palpate Obvious LAD no palp Splenomegaly NEURO: Good Strength and Tone Cranial Nerves II - XII grossly intact Psych: min Depressed no Active hallucination Vital Signs Vital Signs Date Time Temp Pulse Resp B/P (MAP) Pulse Ox O2 Delivery O2 Flow Rate FiO2 01/06/17 10:53 64 20 137/65 (89) 96 Nasal Cannula 2.0 01/06/17 08:51 98.6 98.6 Assessment & Plan ESRD: Emergent HD as ordered; Dialysis as below F 180 NR 3.5 Hrs 1 K for 1 hr then 2K for rest 2.5 Ca 140 Na 40 HC03 Qb 350 + Qd 500+ Heparin 0 Units Uf 2-3 Kgs or to dry weight as tolerated May give 25-50 gms of 25% Albumin if needed to maintain Hemodynamic stability Treatment plan reviewed and 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 Restart Epogen; Transfuse with next HD as needed. HTN: Current BP meds reviewed. See orders for changes. Bone & Mineral: follow Phos and alter binder regimen as needed Discussed Plan of Care and prognosis etc. at length with family. Labs Labs Laboratory Tests Test 01/06/17 09:00 01/06/17 09:17 01/06/17 10:41 White Blood Count 8.5 x10^3/uL (4.0-11.0) Red Blood Count 2.75 x10^6/uL (3.50-5.40) Hemoglobin 8.5 g/dL (12.0-15.5) Hematocrit 26.3 % (36.0-47.0) Mean Corpuscular Volume 96 fL (79-100) Mean Corpuscular Hemoglobin 31 pg (25-35) Mean Corpuscular Hemoglobin Concent 32 g/dL (31-37) Red Cell Distribution Width 16.7 % (11.5-14.5) Platelet Count 175 x10^3/uL (140-400) Neutrophils (%) (Auto) 76 % (31-73) Lymphocytes (%) (Auto) 15 % (24-48) Monocytes (%) (Auto) 6 % (0-9) Eosinophils (%) (Auto) 2 % (0-3) Basophils (%) (Auto) 1 % (0-3) Neutrophils # (Auto) 6.4 x10^3uL (1.8-7.7) Lymphocytes # (Auto) 1.3 x10^3/uL (1.0-4.8) Monocytes # (Auto) 0.5 x10^3/uL (0.0-1.1) Eosinophils # (Auto) 0.2 x10^3/uL (0.0-0.7) Basophils # (Auto) 0.1 x10^3/uL (0.0-0.2) Sodium Level 138 mmol/L (136-145) Potassium Level 7.1 mmol/L (3.5-5.1) Chloride Level 104 mmol/L (98-107) Carbon Dioxide Level 25 mmol/L (21-32) Anion Gap 9 (6-14) 18 mmol/L (6-14) Blood Urea Nitrogen 68 mg/dL (7-20) Creatinine 7.9 mg/dL (0.6-1.0) Estimated GFR (Cockcroft-Gault) 5.1 BUN/Creatinine Ratio 9 (6-20) Glucose Level 213 mg/dL (70-99) 201 mg/dL (70-99) Lactic Acid Level 1.6 mmol/L (0.4-2.0) Calcium Level 7.9 mg/dL (8.5-10.1) Magnesium Level 2.3 mg/dL (1.8-2.4) Total Bilirubin 0.3 mg/dL (0.2-1.0) Aspartate Amino Transf (AST/SGOT) 29 U/L (15-37) Alanine Aminotransferase (ALT/SGPT) 26 U/L (14-59) Alkaline Phosphatase 134 U/L (46-116) Creatine Kinase 73 U/L (26-192) Creatine Kinase MB (Mass) 0.7 ng/mL (0.0-3.6) Creatine Kinase MB Relative Index % (0-4) Troponin I Quantitative 0.017 ng/mL (0.000-0.055) OD-Wyr-A-Type Natriuretic Peptide > 18655 pg/mL (0-124) Total Protein 6.5 g/dL (6.4-8.2) Albumin 2.9 g/dL (3.4-5.0) Albumin/Globulin Ratio 0.8 (1.0-1.7) Lipase 170 U/L (73-393) Thyroid Stimulating Hormone (TSH) 5.647 uIU/mL (0.358-3.74) Bedside Hemoglobin 9.2 g/dL (12-15) Bedside Hematocrit 27 % (36-40) Bedside Sodium 137 mmol/L (135-145) Bedside Potassium 7.0 mmol/L (3.5-5.0) Bedside Chloride 105 mmol/L (98-110) Bedside Total CO2 22 mmol/L (23-32) Bedside Blood Urea Nitrogen 71 mg/dL (8-26) Bedside Creatinine 8.0 mg/dL (0.5-1.4) Bedside Ionized Calcium (Jay) 1.02 mmol/L (1.13-1.32) Urine Collection Type Void Urine Color Yellow Urine Clarity Clear Urine pH 7.0 Urine Specific [place] 1.015 Urine Protein >=300 mg/dL (NEG-TRACE) Urine Glucose (UA) 250 mg/dL (NEG) Urine Ketones (Stick) Negative mg/dL (NEG) Urine Blood Trace (NEG) Urine Nitrite Negative (NEG) Urine Bilirubin Negative (NEG) Urine Urobilinogen Dipstick 0.2 mg/dL (0.2 mg/dL) Urine Leukocyte Esterase Negative (NEG) Urine RBC 1-2 /HPF (0-2) Urine WBC 1-4 /HPF (0-4) Urine Squamous Epithelial Cells Mod /LPF Urine Bacteria Few /HPF (0-FEW) Laboratory Tests Test 01/06/17 09:00 01/06/17 09:17 01/06/17 10:41 White Blood Count 8.5 x10^3/uL (4.0-11.0) Red Blood Count 2.75 x10^6/uL (3.50-5.40) Hemoglobin 8.5 g/dL (12.0-15.5) Hematocrit 26.3 % (36.0-47.0) Mean Corpuscular Volume 96 fL (79-100) Mean Corpuscular Hemoglobin 31 pg (25-35) Mean Corpuscular Hemoglobin Concent 32 g/dL (31-37) Red Cell Distribution Width 16.7 % (11.5-14.5) Platelet Count 175 x10^3/uL (140-400) Neutrophils (%) (Auto) 76 % (31-73) Lymphocytes (%) (Auto) 15 % (24-48) Monocytes (%) (Auto) 6 % (0-9) Eosinophils (%) (Auto) 2 % (0-3) Basophils (%) (Auto) 1 % (0-3) Neutrophils # (Auto) 6.4 x10^3uL (1.8-7.7) Lymphocytes # (Auto) 1.3 x10^3/uL (1.0-4.8) Monocytes # (Auto) 0.5 x10^3/uL (0.0-1.1) Eosinophils # (Auto) 0.2 x10^3/uL (0.0-0.7) Basophils # (Auto) 0.1 x10^3/uL (0.0-0.2) Sodium Level 138 mmol/L (136-145) Potassium Level 7.1 mmol/L (3.5-5.1) Chloride Level 104 mmol/L (98-107) Carbon Dioxide Level 25 mmol/L (21-32) Anion Gap 9 (6-14) 18 mmol/L (6-14) Blood Urea Nitrogen 68 mg/dL (7-20) Creatinine 7.9 mg/dL (0.6-1.0) Estimated GFR (Cockcroft-Gault) 5.1 BUN/Creatinine Ratio 9 (6-20) Glucose Level 213 mg/dL (70-99) 201 mg/dL (70-99) Lactic Acid Level 1.6 mmol/L (0.4-2.0) Calcium Level 7.9 mg/dL (8.5-10.1) Magnesium Level 2.3 mg/dL (1.8-2.4) Total Bilirubin 0.3 mg/dL (0.2-1.0) Aspartate Amino Transf (AST/SGOT) 29 U/L (15-37) Alanine Aminotransferase (ALT/SGPT) 26 U/L (14-59) Alkaline Phosphatase 134 U/L (46-116) Creatine Kinase 73 U/L (26-192) Creatine Kinase MB (Mass) 0.7 ng/mL (0.0-3.6) Creatine Kinase MB Relative Index % (0-4) Troponin I Quantitative 0.017 ng/mL (0.000-0.055) CI-Maf-P-Type Natriuretic Peptide > 93112 pg/mL (0-124) Total Protein 6.5 g/dL (6.4-8.2) Albumin 2.9 g/dL (3.4-5.0) Albumin/Globulin Ratio 0.8 (1.0-1.7) Lipase 170 U/L (73-393) Thyroid Stimulating Hormone (TSH) 5.647 uIU/mL (0.358-3.74) Bedside Hemoglobin 9.2 g/dL (12-15) Bedside Hematocrit 27 % (36-40) Bedside Sodium 137 mmol/L (135-145) Bedside Potassium 7.0 mmol/L (3.5-5.0) Bedside Chloride 105 mmol/L (98-110) Bedside Total CO2 22 mmol/L (23-32) Bedside Blood Urea Nitrogen 71 mg/dL (8-26) Bedside Creatinine 8.0 mg/dL (0.5-1.4) Bedside Ionized Calcium (Jay) 1.02 mmol/L (1.13-1.32) Urine Collection Type Void Urine Color Yellow Urine Clarity Clear Urine pH 7.0 Urine Specific [place] 1.015 Urine Protein >=300 mg/dL (NEG-TRACE) Urine Glucose (UA) 250 mg/dL (NEG) Urine Ketones (Stick) Negative mg/dL (NEG) Urine Blood Trace (NEG) Urine Nitrite Negative (NEG) Urine Bilirubin Negative (NEG) Urine Urobilinogen Dipstick 0.2 mg/dL (0.2 mg/dL) Urine Leukocyte Esterase Negative (NEG) Urine RBC 1-2 /HPF (0-2) Urine WBC 1-4 /HPF (0-4) Urine Squamous Epithelial Cells Mod /LPF Urine Bacteria Few /HPF (0-FEW) Images Images ECHo from 10/2016: The left ventricular systolic function is normal. The Ejection Fraction is 55%. Moderate to severe mitral regurgitation. Mild tricuspid regurgitation. There is no evidence of significant pericardial effusion. AMENA QUARLES MD Jan 06, 2017 11:31
[2017-01-06] MEDS ORDERED: IV NORMAL SALINE 1000ML BAG 1,000 ML IV PRN ×2 (12:06)
[2017-01-06] MEDS ORDERED: DIALYSIS PATIENT. MC PRN ×2 (12:15)
[2017-01-06] MEDS ORDERED: ALBUMIN HUMAN 25% 200 ML IV PRN (12:15)
[2017-01-06] MEDS: IPRATRPIUM/ALBUTEROL 0.5/2.5MG 3 ML NEBU. NEB SCH ×3 (12:34→19:44)
--- NOTE | 2017-01-06 12:49 | EKG ---
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
--- NOTE | 2017-01-06 13:26 | CONS ---
DATE OF CONSULTATION: REASON FOR CONSULTATION: Hyperkalemia and ESRD, shortness of breath. HISTORY OF PRESENT ILLNESS: The patient is a 66-year-old female with history of hypertension, type 2 diabetes, ESRD, on dialysis. She was noted to have issues with moderately severe mitral regurg, frequent pulmonary edema in the past. She presented here with increasing shortness of breath. She usually dialyzes Tuesdays, , Saturdays and did not go to dialysis for this reason. She apparently recently was admitted to the hospital and required AICD placement for VTs. She does not know why her potassium is still high. She denies dietary indiscretion at this time. She does have somewhat of a cough. She thinks she cannot lay flat, but is lying flat with supplemental oxygen. Her sats in the ER were 95% on room air. She claims she is not able to ambulate well. I was called by the ER physician for potassium of 7.1. She is currently getting a dextrose drip and has received temporizing measures as reviewed in the electronic records and as discussed with us. We were called for emergent dialysis, and this has been arranged. She is noted to have bicarb of 22 and a gap of 18. Lactic acid was 1.6. For rest of details, see electronic records. AMENA QUARLES MD DR: SHAWN/williams JOB#: [id number] / [id number]
--- NOTE | 2017-01-06 15:42 | HP ---
ADMIT DATE: 01/06/2017 CHIEF COMPLAINT: Mental status change and weakness. HISTORY OF PRESENT ILLNESS: The patient is a pleasant elderly female, well known to our service. She is on dialysis. She is not supposed to be taking any potassium containing products but apparently her potassium is elevated today, quite high at 7.5. She got severe EKG changes. Her states she has been eating a lot of bananas lately. I suspect that might be playing a role . I have discussed the case with ER physician. We are going to admit the patient with emergent dialysis. PAST MEDICAL HISTORY: End-stage renal disease, on dialysis; diabetes; hypertension. ALLERGIES: None. FAMILY HISTORY: Diabetes. SOCIAL HISTORY: She does not drink, smoke or take drugs. She is . MEDICATIONS: Reviewed. REVIEW OF SYSTEMS: GENERAL: No history of weight change, weakness or fevers. SKIN: No bruising, hair changes or rashes. EYES: No blurred, double or loss of vision. NOSE AND THROAT: No history of nosebleeds, hoarseness or sore throat. HEART: No history of palpitations, chest pain or shortness of breath on exertion. LUNGS: Denies cough, hemoptysis, wheezing or shortness of breath. GASTROINTESTINAL: Denies changes in appetite, nausea, vomiting, diarrhea or constipation. GENITOURINARY: No history of frequency, urgency, hesitancy or nocturia. NEUROLOGIC: Denies history of numbness, tingling, tremor. She complains of weakness. PSYCHIATRIC: No history of panic, anxiety or depression. ENDOCRINE: No history of heat or cold intolerance, polyuria or polydipsia. EXTREMITIES: Denies muscle weakness, joint pain, pain on walking or stiffness. PHYSICAL EXAMINATION: VITAL SIGNS: Temperature afebrile, pulse 92, respirations 18, blood pressure 202/130. GENERAL: She is very weak. She is awake and will say hi, but then falls back to sleep. She appears to be slightly jaundiced. HEART: Normal S1, S2. LUNGS: Clear. ABDOMEN: Soft. EXTREMITIES: 1+ edema. SKIN: Seems a little jaundiced. ENDOCRINE: No thyromegaly. LYMPHATICS: No cervical nodes. HEMATOPOIETIC: No bruising. ASSESSMENT AND PLAN: Critical hyperkalemia with EKG changes. We have given the patient IV calcium, a DuoNeb treatment, IV insulin, given her IV Lasix. Admitted to the ICU, consult Nephrology. She should get emergent dialysis. PROGNOSIS: Guarded. Total time 32 minutes. DAVID BARLOW DO DR: CHUCK/williams JOB#: [id number] / [id number]
[2017-01-06 19:00] VITALS: BP 117/43
[2017-01-06 23:05] VITALS: BP 123/56
[2017-01-07 03:05] VITALS: BP 171/54
[2017-01-07 07:00] VITALS: BP 147/53
[2017-01-07] MEDS: IPRATRPIUM/ALBUTEROL 0.5/2.5MG 3 ML NEBU. NEB SCH ×2 (07:41→11:13)
[2017-01-07 07:52] LABS: ALBUMIN 2.7 g/dL (3.4-5.0); ALBUMIN/GLOBULIN RATIO 0.8 (1.0-1.7); CALCIUM 8.2 mg/dL (8.5-10.1); CREATININE 4.8 mg/dL (0.6-1.0); GFR 9.1; POTASSIUM 5.2 mmol/L (3.5-5.1); TOTAL BILIRUBIN 0.3 mg/dL (0.2-1.0)
[2017-01-07 11:00] VITALS: BP 149/39
--- NOTE | 2017-01-07 12:08 | PDOC ---
SUBJECTIVE ROS ESRD Doign and feeling much better CVS: no Orthopnea, no CP RESP: no SOB, no MENDOZA - still coughing GI: no Nausea, no Vomiting : no Dysuria, no Urgency OBJECTIVE Vital Signs Vital Signs Date Time Temp Pulse Resp B/P (MAP) Pulse Ox O2 Delivery O2 Flow Rate FiO2 01/07/17 11:14 Room Air 01/07/17 11:00 98.6 61 16 149/39 (75) 98 98.6 01/06/17 23:05 2.0 PHYSICAL EXAM Physical Exam General Appearance: Awake Alert Oriented x 3 In min resp Distress Eyes: VIsion Unchanged Conjunctiva Normal EN: No EN Drainage Mucous Memb. mnoist Neck: no JVD min JVP Supple no Thyromegaly CVS: S1 S2 + Murmur No Gallop No Rub +1 Edema Resp: rare basal Rales no Rhonchi min Acc. Muscle use GI: BAS +ve NO Bruit Non Tender Non Distended : no CVA tenderness; no Suprapubic Tenderness DIAGNOSIS/ASSESSMENT Assessment & Plan ESRD: Current fluid and E-lyte status does not necessitate emergent need for dialysis. Will re-evaluate for dialysis in the am and continue on TTSat schedule. Pt now admits that she missed Sat HD due to visiting Urgent Care for ? UTI ^ed K - better after HD Yest. She missed Sat HD and ate banana/ potato with Roast over the weekend. she does not want to do xtra HD today so will use Kayexalate SOB -CHF on CXR - pt is known to have mod to Sev MR on ECHO - this does not leave her much room for error law when BPs go up. We discussed BP management, timing of pills, home BP monitoring and Fluid restrtiction - she voiced understanding of same. Cardiology to see today Anemia: somewhat better after hemoconcentration. Restarted Epogen; Transfuse with next HD as needed. HypoAlbuminemia - Encourage PO Protine - frequent Hospitalization may have contributed HTN: Current BP meds reviewed. See orders for changes. Pt tells me that her Concession Worker at would like her to be on FRANCA-i Bone & Mineral: follow Phos and alter binder regimen as needed Compliance with HD was re-emphsized Discussed Plan of Care and prognosis etc. at length with family. Problems: COMMENT/RELEVANT DATA Meds Current Medications Medications (Trade) Dose Ordered Sig/Liza Start Time Stop Time Status Last Admin Dose Admin Albumin Human 200 ml @ 200 mls/hr 1X PRN PRN 01/06/17 12:15 01/06/17 18:14 DC Albuterol/ Ipratropium (Duoneb) 3 ml RTQID 01/06/17 12:00 01/07/17 11:59 01/07/17 11:13 3 ML Aspirin (Children'S Aspirin) 324 mg 1X ONCE 01/06/17 09:00 01/06/17 09:03 DC 01/06/17 09:17 324 MG Calcium Gluconate (Calcium Gluconate) 1,000 mg 1X ONCE 01/06/17 09:30 01/06/17 09:31 DC 01/06/17 09:21 1,000 MG Dextrose 500 ml @ 0 mls/hr 1X ONCE 01/06/17 09:30 01/06/17 09:31 DC 01/06/17 10:24 500 MLS/HR Fentanyl Citrate (Fentanyl 2ml Vial) 50 mcg PRN Q2HR PRN 01/06/17 09:30 01/07/17 09:29 DC Furosemide (Lasix) 80 mg 1X ONCE 01/06/17 09:30 01/06/17 09:31 DC 01/06/17 10:10 80 MG Info (PHARMACY MONITORING -- do not chart) 1 each PRN DAILY PRN 01/06/17 12:15 Cancel Insulin Human Regular (NovoLIN R VIAL) 10 unit 1X ONCE 01/06/17 09:30 01/06/17 09:31 DC 01/06/17 10:20 10 UNIT Lorazepam (Ativan) 1 mg 1X ONCE 01/06/17 09:00 01/06/17 09:03 DC 01/06/17 09:20 1 MG Methylprednisolone Sodium Succinate (SOLU-Medrol 125MG VIAL) 125 mg 1X ONCE 01/06/17 09:00 01/06/17 09:03 DC 01/06/17 09:19 125 MG Ondansetron HCl (Zofran) 4 mg PRN Q8HRS PRN 01/06/17 09:30 01/07/17 09:29 DC Sodium Chloride 1,000 ml @ 400 mls/hr Q2H30M PRN 01/06/17 12:06 01/07/17 00:05 DC Sodium Chloride (Normal Saline Flush) 10 ml QSHIFT PRN 01/06/17 09:00 Lab Laboratory Tests Test 01/07/17 06:40 Sodium Level 139 mmol/L (136-145) Potassium Level 5.2 mmol/L (3.5-5.1) Chloride Level 101 mmol/L (98-107) Carbon Dioxide Level 28 mmol/L (21-32) Anion Gap 10 (6-14) Blood Urea Nitrogen 45 mg/dL (7-20) Creatinine 4.8 mg/dL (0.6-1.0) Estimated GFR (Cockcroft-Gault) 9.1 BUN/Creatinine Ratio 9 (6-20) Glucose Level 246 mg/dL (70-99) Calcium Level 8.2 mg/dL (8.5-10.1) Total Bilirubin 0.3 mg/dL (0.2-1.0) Aspartate Amino Transf (AST/SGOT) 17 U/L (15-37) Alanine Aminotransferase (ALT/SGPT) 20 U/L (14-59) Alkaline Phosphatase 123 U/L (46-116) Total Protein 6.0 g/dL (6.4-8.2) Albumin 2.7 g/dL (3.4-5.0) Albumin/Globulin Ratio 0.8 (1.0-1.7) AMENA QUARLES MD Jan 07, 2017 12:08
[2017-01-07] MEDS ORDERED: SODIUM POLYSTYRENE SULFONATE 15 GM/60 ML ORAL.SUSP. PO ONE (12:30)
--- NOTE | 2017-01-07 12:41 | EKG ---
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
--- NOTE | 2017-01-07 13:31 | PDOC3 ---
Discharge Summary Visit Information Date of Admission: Jan 06, 2017 Date of Discharge: Jan 07, 2017 Admitting Diagnosis: hyperkalemia Final Diagnosis Critical hyperkalemia with EKG changes. dyspnea htn, poor control w./ chronic diastolic CHF moderate malnutrition was POA Problems Medical Problems: (1) Abnormal EKG Status: Acute (2) Chronic renal failure Status: Acute (3) Dyspnea Status: Acute (4) Hyperkalemia Status: Acute (5) Hypertension Status: Acute Brief Hospital Course Allergies Allergies Coded Allergies Type Severity Reaction Last Updated Verified ciprofloxacin Allergy Intermediate Rash 01/25/15 Yes morphine Adverse Reaction Severe makes her skin crawl 01/25/15 Yes oxycodone Adverse Reaction Severe makes her skin crawl 01/25/15 Yes adhesive Adverse Reaction Intermediate blisters 01/25/15 Yes Vital Signs Vital Signs Date Time Temp Pulse Resp B/P (MAP) Pulse Ox O2 Delivery O2 Flow Rate FiO2 01/07/17 11:14 Room Air 01/07/17 11:00 98.6 61 16 149/39 (75) 98 98.6 01/06/17 23:05 2.0 Lab Results Laboratory Tests Test 01/06/17 09:00 01/06/17 09:17 01/06/17 10:41 01/07/17 06:40 White Blood Count 8.5 x10^3/uL (4.0-11.0) Red Blood Count 2.75 x10^6/uL (3.50-5.40) Hemoglobin 8.5 g/dL (12.0-15.5) Hematocrit 26.3 % (36.0-47.0) Mean Corpuscular Volume 96 fL (79-100) Mean Corpuscular Hemoglobin 31 pg (25-35) Mean Corpuscular Hemoglobin Concent 32 g/dL (31-37) Red Cell Distribution Width 16.7 % (11.5-14.5) Platelet Count 175 x10^3/uL (140-400) Neutrophils (%) (Auto) 76 % (31-73) Lymphocytes (%) (Auto) 15 % (24-48) Monocytes (%) (Auto) 6 % (0-9) Eosinophils (%) (Auto) 2 % (0-3) Basophils (%) (Auto) 1 % (0-3) Neutrophils # (Auto) 6.4 x10^3uL (1.8-7.7) Lymphocytes # (Auto) 1.3 x10^3/uL (1.0-4.8) Monocytes # (Auto) 0.5 x10^3/uL (0.0-1.1) Eosinophils # (Auto) 0.2 x10^3/uL (0.0-0.7) Basophils # (Auto) 0.1 x10^3/uL (0.0-0.2) Sodium Level 138 mmol/L (136-145) 139 mmol/L (136-145) Potassium Level 7.1 mmol/L (3.5-5.1) 5.2 mmol/L (3.5-5.1) Chloride Level 104 mmol/L (98-107) 101 mmol/L (98-107) Carbon Dioxide Level 25 mmol/L (21-32) 28 mmol/L (21-32) Anion Gap 9 (6-14) 18 mmol/L (6-14) 10 (6-14) Blood Urea Nitrogen 68 mg/dL (7-20) 45 mg/dL (7-20) Creatinine 7.9 mg/dL (0.6-1.0) 4.8 mg/dL (0.6-1.0) Estimated GFR (Cockcroft-Gault) 5.1 9.1 BUN/Creatinine Ratio 9 (6-20) 9 (6-20) Glucose Level 213 mg/dL (70-99) 201 mg/dL (70-99) 246 mg/dL (70-99) Lactic Acid Level 1.6 mmol/L (0.4-2.0) Calcium Level 7.9 mg/dL (8.5-10.1) 8.2 mg/dL (8.5-10.1) Magnesium Level 2.3 mg/dL (1.8-2.4) Total Bilirubin 0.3 mg/dL (0.2-1.0) 0.3 mg/dL (0.2-1.0) Aspartate Amino Transf (AST/SGOT) 29 U/L (15-37) 17 U/L (15-37) Alanine Aminotransferase (ALT/SGPT) 26 U/L (14-59) 20 U/L (14-59) Alkaline Phosphatase 134 U/L (46-116) 123 U/L (46-116) Creatine Kinase 73 U/L (26-192) Creatine Kinase MB (Mass) 0.7 ng/mL (0.0-3.6) Creatine Kinase MB Relative Index % (0-4) Troponin I Quantitative 0.017 ng/mL (0.000-0.055) QI-Ghi-Y-Type Natriuretic Peptide > 64691 pg/mL (0-124) Total Protein 6.5 g/dL (6.4-8.2) 6.0 g/dL (6.4-8.2) Albumin 2.9 g/dL (3.4-5.0) 2.7 g/dL (3.4-5.0) Albumin/Globulin Ratio 0.8 (1.0-1.7) 0.8 (1.0-1.7) Lipase 170 U/L (73-393) Thyroid Stimulating Hormone (TSH) 5.647 uIU/mL (0.358-3.74) Bedside Hemoglobin 9.2 g/dL (12-15) Bedside Hematocrit 27 % (36-40) Bedside Sodium 137 mmol/L (135-145) Bedside Potassium 7.0 mmol/L (3.5-5.0) Bedside Chloride 105 mmol/L (98-110) Bedside Total CO2 22 mmol/L (23-32) Bedside Blood Urea Nitrogen 71 mg/dL (8-26) Bedside Creatinine 8.0 mg/dL (0.5-1.4) Bedside Ionized Calcium (Jay) 1.02 mmol/L (1.13-1.32) Urine Collection Type Void Urine Color Yellow Urine Clarity Clear Urine pH 7.0 Urine Specific [place] 1.015 Urine Protein >=300 mg/dL (NEG-TRACE) Urine Glucose (UA) 250 mg/dL (NEG) Urine Ketones (Stick) Negative mg/dL (NEG) Urine Blood Trace (NEG) Urine Nitrite Negative (NEG) Urine Bilirubin Negative (NEG) Urine Urobilinogen Dipstick 0.2 mg/dL (0.2 mg/dL) Urine Leukocyte Esterase Negative (NEG) Urine RBC 1-2 /HPF (0-2) Urine WBC 1-4 /HPF (0-4) Urine Squamous Epithelial Cells Mod /LPF Urine Bacteria Few /HPF (0-FEW) Laboratory Tests Test 01/07/17 06:40 Sodium Level 139 mmol/L (136-145) Potassium Level 5.2 mmol/L (3.5-5.1) Chloride Level 101 mmol/L (98-107) Carbon Dioxide Level 28 mmol/L (21-32) Anion Gap 10 (6-14) Blood Urea Nitrogen 45 mg/dL (7-20) Creatinine 4.8 mg/dL (0.6-1.0) Estimated GFR (Cockcroft-Gault) 9.1 BUN/Creatinine Ratio 9 (6-20) Glucose Level 246 mg/dL (70-99) Calcium Level 8.2 mg/dL (8.5-10.1) Total Bilirubin 0.3 mg/dL (0.2-1.0) Aspartate Amino Transf (AST/SGOT) 17 U/L (15-37) Alanine Aminotransferase (ALT/SGPT) 20 U/L (14-59) Alkaline Phosphatase 123 U/L (46-116) Total Protein 6.0 g/dL (6.4-8.2) Albumin 2.7 g/dL (3.4-5.0) Albumin/Globulin Ratio 0.8 (1.0-1.7) Brief Hospital Course Ms. Glover is a 66 old female, ESRD, admit with hyperkalemia, EKG change, weakness, We have given the patient IV calcium, a DuoNeb treatment, IV insulin, and IV Lasix. HD on 01/07, potassium from 7.1 to 5.2, then PO kayexalate, will f.u at HD tomorrow. . Discharge Information Condition at Discharge: Improved Follow Up: Weeks Disposition/Orders: D/C to Home Scheduled Amiodarone Hcl (Amiodarone Hcl), 200 MG PO DAILY Aspirin (Aspir 81), 81 MG PO DAILY, (Reported) Atorvastatin Calcium (Atorvastatin Calcium), 10 MG PO QHS Calcium Acetate (Calcium Acetate), 2 TAB PO TIDWMEALS, (Reported) Carvedilol (Carvedilol), 3.125 MG PO BIDWMEALS Cinacalcet Hcl (Sensipar), 1 TAB PO QHS, (Reported) Clopidogrel Bisulfate (Plavix), 75 MG PO DAILY, (Reported) Cranberry Conc/Ascorbic Acid (Cranberry Plus Vitamin C Sftgl), 1 EACH PO DAILY, (Reported) Gabapentin (Gabapentin), 300 MG PO DAILY, (Reported) Mexiletine Hcl (Mexiletine Hcl), 200 MG PO Q8HRS Sertraline Hcl (Sertraline Hcl), 50 MG PO QHS, (Reported) Vit B Cmplx 3/Fa/Vit C/Biotin (Alayna-Oneil Rx Tablet), 1 EACH PO DAILY, (Reported) Scheduled PRN Acetaminophen (Tylenol Extra Strength), 500 MG PO PRN Q12HRS PRN for PAIN, ( Reported) Acetaminophen/Chlorpheniramine (Coricidin Hbp Tablet), 1 EACH PO for CONGESTION, (Reported) Alprazolam (Alprazolam), 1 TAB PO DAILY PRN for ANXIETY / AGITATION, (Reported) Diphenhydramine Hcl (Benadryl Allergy), 25 MG PO for ALLERGIES, (Reported) Patient Instructions Patient Instructions > 30 min face to face JARED BYRNES MD Jan 07, 2017 13:31
[2017-01-07] MEDS ORDERED: LISI-338 PO (13:33)
== END 2017-01-07 14:47 | disposition home or self-care (01) | DRG 640 ==
LOC: ER 08:42 → 6 SOUTH 09:36
PROVIDERS: ADMIT Internal Medicine; ATTEND Internal Medicine
DX: E87.5 Hyperkalemia (principal); N18.6 End stage renal disease; I13.2 Hypertensive heart and chronic kidney disease with heart failure and with stage 5 chronic kidney disease, or end stage renal disease; I47.2 Ventricular tachycardia; E44.0 Moderate protein-calorie malnutrition; I50.32 Chronic diastolic (congestive) heart failure; E11.22 Type 2 diabetes mellitus with diabetic chronic kidney disease; Z68.29 Body mass index [BMI] 29.0-29.9, adult; J44.9 Chronic obstructive pulmonary disease, unspecified; Z83.3 Family history of diabetes mellitus; Z90.710 Acquired absence of both cervix and uterus; Z95.810 Presence of automatic (implantable) cardiac defibrillator; Z99.2 Dependence on renal dialysis; E21.3 Hyperparathyroidism, unspecified; F32.9 Major depressive disorder, single episode, unspecified; Z90.49 Acquired absence of other specified parts of digestive tract; Z88.1 Allergy status to other antibiotic agents; Z88.5 Allergy status to narcotic agent; Z88.8 Allergy status to other drugs, medicaments and biological substances; D64.9 Anemia, unspecified; E88.09 Other disorders of plasma-protein metabolism, not elsewhere classified
CPT/HCPCS: 36415; 71010; 80047; 80053; 81001; 82553; 83605; 83690; 83735; 83880; 84443; 84484; 85025; 87040; 93005; 94250; 94640; 94760; 96361; 96374; 96375; J0610; J1815; J1940; J2060; J2930; J3010; J7030; J7620; 99291-25

== ENCOUNTER 2017-05-07 09:53 | Emergency (ER) | payer MEDICARE, BC ==
[2017-05-07 12:02] LABS: ADD MAN DIFF? NO
[2017-05-07 12:06] LABS: BASO # 0.1 x10^3/uL (0.0-0.2); BASO % 2 % (0-3); EOS # 0.8 x10^3/uL (0.0-0.7); EOS % 10 % (0-3); HEMATOCRIT 34.2 % (36.0-47.0); HEMOGLOBIN 11.3 g/dL (12.0-15.5); LYMPH # 1.5 x10^3/uL (1.0-4.8); LYMPH % 19 % (24-48); MEAN CORPUSCULAR HEMOGLOBIN 30 pg (25-35); MEAN CORPUSCULAR HGB CONC 33 g/dL (31-37); MEAN CORPUSCULAR VOLUME 91 fL (79-100); MONO # 0.7 x10^3/uL (0.0-1.1); MONO % 9 % (0-9); NEUT # 4.8 x10^3uL (1.8-7.7); NEUT % 60 % (31-73); PLATELET COUNT 176 x10^3/uL (140-400); RED BLOOD COUNT 3.75 x10^6/uL (3.50-5.40)
[2017-05-07 12:21] LABS: ANION GAP 16 (6-14); BLOOD UREA NITROGEN 80 mg/dL (7-20); CALCIUM 7.9 mg/dL (8.5-10.1); CARBON DIOXIDE 18 mmol/L (21-32); CHLORIDE 109 mmol/L (98-107); CREATININE 10.5 mg/dL (0.6-1.0); GFR 3.7; GLUCOSE 96 mg/dL (70-99); POTASSIUM 5.3 mmol/L (3.5-5.1); SODIUM 143 mmol/L (136-145)
[2017-05-07 12:26] LABS: ALBUMIN 2.5 g/dL (3.4-5.0); ALK PHOS 113 U/L (46-116); ALT (SGPT) 10 U/L (14-59); AST (SGOT) 15 U/L (15-37); DIRECT BILIRUBIN 0.1 mg/dL (0.0-0.2); MAGNESIUM 2.2 mg/dL (1.8-2.4); TOTAL BILIRUBIN 0.3 mg/dL (0.2-1.0); TOTAL PROTEIN 5.8 g/dL (6.4-8.2)
[2017-05-07 12:31] LABS: TROPONINI 0.349 ng/mL (0.000-0.055)
[2017-05-07 12:33] LABS: THYROID STIM HORMONE (TSH) 8.336 uIU/mL (0.358-3.74)
[2017-05-07 12:49] LABS: CKMB INDEX 4.1 % (0-4); CKMB MASS 4.1 ng/mL (0.0-3.6); CREATINE KINASE 99 U/L (26-192)
[2017-05-07 12:50] LABS: NT-PRO BNP > 35000 pg/mL (0-124)
== END 2017-05-07 14:10 | disposition left against medical advice (07) ==
LOC: ER 09:53
DX: I12.0 Hypertensive chronic kidney disease with stage 5 chronic kidney disease or end stage renal disease (principal); N18.6 End stage renal disease; E87.2 Acidosis; E11.22 Type 2 diabetes mellitus with diabetic chronic kidney disease; R79.89 Other specified abnormal findings of blood chemistry; Z99.2 Dependence on renal dialysis; Z90.710 Acquired absence of both cervix and uterus; Z90.49 Acquired absence of other specified parts of digestive tract; Z88.5 Allergy status to narcotic agent; Z88.1 Allergy status to other antibiotic agents; Z88.8 Allergy status to other drugs, medicaments and biological substances
CPT/HCPCS: 36415; 80048; 80076; 82553; 83735; 83880; 84443; 84484; 85025; 93005; 99285-25

== ENCOUNTER 2017-05-08 09:24 | Day surgery (SDC) | payer MEDICARE, BC ==
[2017-05-08] MEDS: IV NORMAL SALINE 1000ML BAG 1,000 ML IV ×2 (10:00)
[2017-05-08 10:19] LABS: POC GLUCOSE 117 mg/dL (70-99)
[2017-05-08] MEDS ORDERED: LIDOCAINE 1% PF 2 ML VIAL. ×2 (10:24)
[2017-05-08] MEDS ORDERED: LIDOCAINE 2% TOPICAL JELLY 5GM TUBE. TP ×2 (10:24)
[2017-05-08] MEDS ORDERED: LIDOCAINE 2% VISCOUS 15 ML SOLUTION. ×2 (10:24)
[2017-05-08] MEDS ORDERED: BENZOCAINE ONE 20% MUCOSAL SPRAY. ×2 (10:25)
[2017-05-08] MEDS ORDERED: LIDOCAINE 2% PF Vial for OR 5 ML VIAL. ×2 (11:06)
[2017-05-08] MEDS ORDERED: PROPOFOL 20 ML IV ×2 (11:06)
[2017-05-08] MEDS: LIDOCAINE 2% TOPICAL JELLY 5GM TUBE. TP ×2 (11:12)
[2017-05-08] MEDS: BENZOCAINE ONE 20% MUCOSAL SPRAY. MM ×2 (11:12)
[2017-05-08] MEDS: LIDOCAINE 2% VISCOUS 15 ML SOLUTION. SWSW ×2 (11:13)
== END 2017-05-08 12:27 | disposition home or self-care (01) ==
LOC: SURG 09:24
DX: I08.1 Rheumatic disorders of both mitral and tricuspid valves (principal); Z79.899 Other long term (current) drug therapy; Z88.6 Allergy status to analgesic agent; Z88.1 Allergy status to other antibiotic agents; Z91.048 Other nonmedicinal substance allergy status
CPT/HCPCS: 82962; 93312; 93320; 93325; 99152; 99153; J2704

== ENCOUNTER 2017-06-08 15:12 | Emergency (ER) | payer MEDICARE, BC ==
[2017-06-08 16:12] LABS: ADD MAN DIFF? NO
[2017-06-08] MEDS: ONDANSETRON PF 4 MG/2 ML VIAL. IV (16:12)
[2017-06-08 16:13] LABS: BASO # 0.2 x10^3/uL (0.0-0.2); BASO % 2 % (0-3); EOS # 0.1 x10^3/uL (0.0-0.7); EOS % 1 % (0-3); HEMATOCRIT 28.3 % (36.0-47.0); HEMOGLOBIN 9.1 g/dL (12.0-15.5); LYMPH # 1.6 x10^3/uL (1.0-4.8); LYMPH % 15 % (24-48); MEAN CORPUSCULAR HEMOGLOBIN 29 pg (25-35); MEAN CORPUSCULAR HGB CONC 32 g/dL (31-37); MEAN CORPUSCULAR VOLUME 90 fL (79-100); MONO # 0.6 x10^3/uL (0.0-1.1); MONO % 6 % (0-9); NEUT # 7.8 x10^3uL (1.8-7.7); NEUT % 76 % (31-73); PLATELET COUNT 243 x10^3/uL (140-400); RED BLOOD COUNT 3.13 x10^6/uL (3.50-5.40); RED CELL DISTRIBUTION WIDTH 18.2 % (11.5-14.5); WHITE BLOOD COUNT 10.3 x10^3/uL (4.0-11.0)
[2017-06-08] MEDS: IV NORMAL SALINE 1000ML BAG 1,000 ML IV (16:13)
[2017-06-08] MEDS: fentaNYL PF VIAL 100 MCG/2 ML VIAL IV ×2 (16:13→18:07)
[2017-06-08 17:47] LABS: ANION GAP 12 (6-14); BLOOD UREA NITROGEN 47 mg/dL (7-20); BUN/CREATININE RATIO 7 (6-20); CALCIUM 8.6 mg/dL (8.5-10.1); CARBON DIOXIDE 24 mmol/L (21-32); CHLORIDE 104 mmol/L (98-107); CREATININE 6.9 mg/dL (0.6-1.0); GLUCOSE 145 mg/dL (70-99); POTASSIUM 5.2 mmol/L (3.5-5.1); SODIUM 140 mmol/L (136-145)
[2017-06-08 17:54] LABS: ALBUMIN 2.1 g/dL (3.4-5.0); ALBUMIN/GLOBULIN RATIO 0.5 (1.0-1.7); ALK PHOS 114 U/L (46-116); ALT (SGPT) 25 U/L (14-59); AST (SGOT) 35 U/L (15-37); TOTAL BILIRUBIN 0.4 mg/dL (0.2-1.0); TOTAL PROTEIN 6.1 g/dL (6.4-8.2)
[2017-06-08 17:55] LABS: TROPONINI < 0.017 ng/mL (0.000-0.055)
[2017-06-08 18:00] LABS: CKMB INDEX 4.8 % (0-4); CKMB MASS 1.5 ng/mL (0.0-3.6); CREATINE KINASE 31 U/L (26-192)
[2017-06-08 18:31] LABS: NT-PRO BNP > 35000 pg/mL (0-124)
== END 2017-06-08 19:20 | disposition home or self-care (01) ==
LOC: ER 15:12
DX: R07.89 Other chest pain (principal); E11.22 Type 2 diabetes mellitus with diabetic chronic kidney disease; I12.0 Hypertensive chronic kidney disease with stage 5 chronic kidney disease or end stage renal disease; N18.6 End stage renal disease; Z99.2 Dependence on renal dialysis; Z95.0 Presence of cardiac pacemaker; Z90.710 Acquired absence of both cervix and uterus; Z90.49 Acquired absence of other specified parts of digestive tract; Z95.5 Presence of coronary angioplasty implant and graft; Z88.1 Allergy status to other antibiotic agents; Z88.5 Allergy status to narcotic agent; Z88.8 Allergy status to other drugs, medicaments and biological substances
CPT/HCPCS: 36415; 71045; 80053; 82553; 83735; 83880; 84484; 85025; 93005; 96361; 96374; 96375; 96376; 99285-25; J2405; J3010; J7030

== ENCOUNTER 2018-01-11 14:43 | Emergency (ER) | payer MEDICARE, BC ==
[~2018-01-11] VITALS: Ht 162.6 cm; Wt 76.2 kg
[~2018-01-11 14:43] MED LIST changes: -AMIO200T2 PO; +AMIO200T4 PO; -AMLO5TAB2 PO; +AMLO5TAB7 PO; +BACI28.43 TP; +FENT1PAT15 TD; +HYDR-971 PO; +LISI-130 PO; +LISI-338 PO; -LISI40TA PO
--- NOTE | 2018-01-11 15:42 | PHYS DOC ---
Past Medical History Past Medical History: Anemia, Diabetes-Type II, Hypertension, Pneumonia, Renal Failure, Other Additional Past Medical Histor: dialysis Past Surgical History: Cholecystectomy, Hysterectomy, Pacemaker, Tonsillectomy , Other Additional Past Surgical Histo: cardiac cath 10/2016-w/stent placement, back surgery,rotator cuff Alcohol Use: None Drug Use: None Adult General Chief Complaint Chief Complaint: MECHANICAL FALL HPI HPI 67-year-old female presents for evaluation of coccygeal pain. She reports on of last week, she slipped on the wood floors at home and fell onto her buttocks. She was released the day before from rehabilitation for a wound on her lower right leg. She denies hitting her head or loss of consciousness. She has hydrocodone 10 mg at home but has not taken it for 2 days. This was prescribed to her for the pain in her leg wound. Review of Systems Review of Systems Constitutional: Denies fever or chills [] Eyes: Denies change in visual acuity, redness, or eye pain [] Respiratory: Denies cough or shortness of breath [] Cardiovascular: No additional information not addressed in HPI [] GI: Denies abdominal pain, nausea, vomiting, bloody stools or diarrhea [] : Denies dysuria or hematuria [] Neurologic: Denies headache, focal weakness or sensory changes [] All other systems were reviewed and found to be within normal limits, except as documented in this note. Current Medications Current Medications Current Medications Medications (Trade) Dose Ordered Sig/Liza Start Time Stop Time Status Last Admin Dose Admin Acetaminophen/ Hydrocodone Bitart (Lortab 10/325) 1 tab 1X ONCE 01/11/18 15:45 01/11/18 15:46 DC 01/11/18 15:57 1 TAB Allergies Allergies Allergies Coded Allergies Type Severity Reaction Last Updated Verified ciprofloxacin Allergy Intermediate Rash 05/08/17 Yes morphine Adverse Reaction Severe makes her skin crawl 05/08/17 Yes oxycodone Adverse Reaction Severe makes her skin crawl 05/08/17 Yes adhesive Adverse Reaction Intermediate blisters 05/08/17 Yes Physical Exam Physical Exam Constitutional: Well developed, well nourished, no acute distress, non-toxic appearance. [] HENT: Normocephalic, atraumatic, bilateral external ears normal, oropharynx moist, no oral exudates, nose normal. [] Eyes: PERRLA, EOMI, conjunctiva normal, no discharge. [] Neck: Normal range of motion, no tenderness, supple, no stridor. [] Cardiovascular:Heart rate regular rhythm, no murmur [] Lungs & Thorax: Bilateral breath sounds clear to auscultation [] Abdomen: Bowel sounds normal, soft, no tenderness, no masses, no pulsatile masses. [] Skin: Warm, dry, no erythema, no rash. [] Back: No tenderness, no CVA tenderness. [] Extremities: No tenderness, no cyanosis, no clubbing, ROM intact, no edema. [] Neurologic: Alert and oriented X 3, normal motor function, normal sensory function, no focal deficits noted. [] Psychologic: Affect normal, judgement normal, mood normal. [] Current Patient Data Vital Signs Vital Signs Date Time Temp Pulse Resp B/P (MAP) Pulse Ox O2 Delivery O2 Flow Rate FiO2 01/11/18 17:00 60 14 94 01/11/18 15:00 98.6 191/83 (119) Room Air 98.6 EKG EKG [] Radiology/Procedures Radiology/Procedures [PROCEDURE: SACRUM & COCCYX 3V Sacrococcygeal spine, 3 views, 01/11/2018: HISTORY: Fall, pain The bony structures are demineralized. No fracture is identified. The presacral soft tissues are unremarkable. Extensive arterial calcifications are noted. IMPRESSION: 1. Demineralization. 2. No acute bony abnormality is detected. Electronically signed by: Glen Amaya MD (01/11/2018 4:05 PM) [facility]] Course & Med Decision Making Course & Med Decision Making Pertinent Labs and Imaging studies reviewed. (See chart for details) [] Dragon Disclaimer Dragon Disclaimer This electronic medical record was generated, in whole or in part, using a voice recognition dictation system. Departure Departure Impression: Primary Impression: Coccygeal contusion Disposition: 01 HOME, SELF-CARE Condition: STABLE Referrals: ALESIA ZAVALA FUR MIXER (PCP) Patient Instructions: Tailbone Injury, Socy-ae-Ipdx Additional Instructions: Continue taking the prescription for hydrocodone you have at home for pain control. You may need to use pillows to sit on or you may buy a doughnut to sit on for your tailbone pain. This can be bought at most pharmacy locations. RUTHANN BROWNING APRN Jan 11, 2018 15:42
[2018-01-11] MEDS ORDERED: HYDROcodone/APAP 10/325 1 TAB TABLET PO ONE (15:45)
--- NOTE | 2018-01-11 16:08 | RAD ---
Sacrococcygeal spine, 3 views, 01/11/2018: HISTORY: Fall, pain The bony structures are demineralized. No fracture is identified. The presacral soft tissues are unremarkable. Extensive arterial calcifications are noted. IMPRESSION: 1. Demineralization. 2. No acute bony abnormality is detected. Electronically signed by: Glen Amaya MD (01/11/2018 4:05 PM) [facility]
[2018-01-11 17:00] VITALS: BP 178/74
== END 2018-01-11 17:47 | disposition home or self-care (01) ==
LOC: ER 14:43
DX: S30.0XXA Contusion of lower back and pelvis, initial encounter (principal); I12.9 Hypertensive chronic kidney disease with stage 1 through stage 4 chronic kidney disease, or unspecified chronic kidney disease; E11.22 Type 2 diabetes mellitus with diabetic chronic kidney disease; N18.9 Chronic kidney disease, unspecified; Z90.49 Acquired absence of other specified parts of digestive tract; Z90.710 Acquired absence of both cervix and uterus; Z95.0 Presence of cardiac pacemaker; Z90.89 Acquired absence of other organs; Z88.1 Allergy status to other antibiotic agents; Z88.5 Allergy status to narcotic agent; Z91.048 Other nonmedicinal substance allergy status; W01.0XXA Fall on same level from slipping, tripping and stumbling without subsequent striking against object, initial encounter; Y93.89 Activity, other specified; Y92.89 Other specified places as the place of occurrence of the external cause; Y99.8 Other external cause status
CPT/HCPCS: 72220; 99284

== ENCOUNTER 2018-01-15 11:39 | Inpatient (IN) | payer MEDICARE, BC ==
[~2018-01-15] VITALS: Ht 162.6 cm; Wt 71.7 kg
--- NOTE | 2018-01-15 13:13 | EKG ---
[facility] [address] [place] [address] Test Date: 2018-01-15 Test Time: 12:57:21 Pat Name: DIANE CARLSON Department: Room: Gender: F [employer]cher Aircraft: : [id number] Requested By: SCOTT DEJESUS Order Number: [id number] Reading MD: Christian Morrison MD Measurements Intervals [place] Rate: 71 P: 39 [place]: 186 QRS: 27 QRSD: 118 T: 149 QT: 402 QTc: 442 Interpretive Statements SINUS RHYTHM LOW LIMB LEAD VOLTAGE QRS(T) CONTOUR ABNORMALITY CONSISTENT WITH ANTEROSEPTAL INFARCT PROBABLY OLD ST & T ABNORMALITY, CONSIDER ANTEROLATERAL ISCHEMIA OR LEFT VENTRICULAR STRAIN T ABNORMALITY IN INFEROLATERAL LEADS ABNORMAL ECG Electronically Signed On 01-18-2018 11:25:50 CDT by Christian Morrison MD
--- NOTE | 2018-01-15 13:30 | PHYS DOC ---
Past Medical History Past Medical History: Anemia, Diabetes-Type II, Hypertension, Pneumonia, Renal Failure, Other Additional Past Medical Histor: dialysis Past Surgical History: Cholecystectomy, Hysterectomy, Pacemaker, Tonsillectomy , Other Additional Past Surgical Histo: cardiac cath 10/2016-w/stent placement, back surgery,rotator cuff Alcohol Use: None Drug Use: None Adult General Chief Complaint Chief Complaint: WEAKNESS/GENERALIZED HPI HPI 67-year-old female presenting to the emergency department today with generalized weakness over the past 2-3 weeks. She has been struggling to deal with a right lower extremity wound for many months. She was recently discharged from [facility] the [facility] about 2 weeks ago and since then has been unable to function at home because of generalized weakness. She is having difficulty standing up from the sitting position. Her is trying to help her but has difficulty helping her. She has pain in her sacrum from a fall which had neck strain a few days ago which was negative. Otherwise she denies any pain. She is supposed to get dialysis 3 times a week. Last dialysis was at least 2 weeks ago. Review of systems is negative for chest pain shortness of breath cough fevers chills. All other review of systems is negative unless otherwise noted in history of present illness. ED course: 67-year-old female presenting with generalized weakness. She is afebrile with a normal heart rate on arrival. She is well-appearing breathing comfortably with elevated blood pressure here in the emergency department. On examination her lungs are clear bilaterally. Her abdomen is soft and nontender. She is nontoxic. EKG obtained and reviewed by myself shows sinus rhythm area QRS is mildly prolonged. Mild ST depression in V4 V5 and V6. Repolarization abnormality . Blood work shows elevated potassium. CO2 mildly low. Creatinine elevated. Troponin mildly elevated. Urine is not suggestive of infection though contaminated with squamous epithelial cells. CBC shows normal white blood cell count. Hemoglobin mildly low. The patient was given treatment for hyperkalemia in the emergency department. I spoke with nephrology Dr. Blancas who agrees to dialyze the patient. The patient was then admitted to Dr. Engle for further evaluation treatment and care. Review of Systems Review of Systems SEE ABOVE. Current Medications Current Medications Current Medications Medications (Trade) Dose Ordered Sig/Liza Start Time Stop Time Status Last Admin Dose Admin Albuterol Sulfate (Ventolin Neb Soln) 10 mg 1X ONCE 01/15/18 14:15 01/15/18 14:16 DC 01/15/18 14:15 10 MG Calcium Gluconate (Calcium Gluconate) 1,000 mg 1X ONCE 01/15/18 14:15 01/15/18 14:16 DC 01/15/18 14:17 1,000 MG Dextrose (Dextrose 50%-Water Syringe) 25 gm 1X ONCE 01/15/18 14:15 01/15/18 14:16 DC 01/15/18 14:19 25 GM Insulin Human Regular (HumuLIN R VIAL) 10 unit 1X ONCE 01/15/18 14:15 01/15/18 14:16 DC 01/15/18 14:18 10 UNIT Sodium Bicarbonate (Sodium Bicarb Adult 8.4% Syr) 50 meq 1X ONCE 01/15/18 14:15 01/15/18 14:16 DC 01/15/18 14:17 50 MEQ Allergies Allergies Allergies Coded Allergies Type Severity Reaction Last Updated Verified ciprofloxacin Allergy Intermediate Rash 05/08/17 Yes morphine Adverse Reaction Severe makes her skin crawl 05/08/17 Yes oxycodone Adverse Reaction Severe makes her skin crawl 05/08/17 Yes adhesive Adverse Reaction Intermediate blisters 05/08/17 Yes Physical Exam Physical Exam SEE ABOVE Constitutional: Well developed, well nourished, no acute distress, non-toxic appearance. HENT: Normocephalic, atraumatic, bilateral external ears normal, oropharynx moist, no oral exudates, nose normal. [] Eyes: PERRLA, EOMI, conjunctiva normal, no discharge. Neck: Normal range of motion, no tenderness, supple, no stridor. [] Cardiovascular:Heart rate regular rhythm, no murmur Lungs & Thorax: Bilateral breath sounds clear to auscultation [] Abdomen: Bowel sounds normal, soft, no tenderness, no masses, no pulsatile masses. Skin: Warm, dry, no erythema, no rash. [] Back: No tenderness, no CVA tenderness. Extremities: Pt has a chronic wound on the left lower leg. otherwise, no tenderness, no cyanosis, no clubbing, ROM intact, no edema Neurologic: Alert and oriented X 3, normal motor function, normal sensory function, no focal deficits noted. Psychologic: Affect normal, judgement normal, mood normal. [] Current Patient Data Vital Signs Vital Signs Date Time Temp Pulse Resp B/P (MAP) Pulse Ox O2 Delivery O2 Flow Rate FiO2 01/15/18 14:30 77 10 96 01/15/18 11:52 98.1 192/93 (126) Room Air 98.1 Lab Values Laboratory Tests Test 01/15/18 13:28 White Blood Count 6.8 x10^3/uL (4.0-11.0) Red Blood Count 3.82 x10^6/uL (3.50-5.40) Hemoglobin 11.2 g/dL (12.0-15.5) L Hematocrit 34.2 % (36.0-47.0) L Mean Corpuscular Volume 90 fL (79-100) Mean Corpuscular Hemoglobin 29 pg (25-35) Mean Corpuscular Hemoglobin Concent 33 g/dL (31-37) Red Cell Distribution Width 16.7 % (11.5-14.5) H Platelet Count 234 x10^3/uL (140-400) Neutrophils (%) (Auto) 87 % (31-73) H Lymphocytes (%) (Auto) 7 % (24-48) L Monocytes (%) (Auto) 5 % (0-9) Eosinophils (%) (Auto) 0 % (0-3) Basophils (%) (Auto) 0 % (0-3) Neutrophils # (Auto) 6.0 x10^3uL (1.8-7.7) Lymphocytes # (Auto) 0.5 x10^3/uL (1.0-4.8) L Monocytes # (Auto) 0.3 x10^3/uL (0.0-1.1) Eosinophils # (Auto) 0.0 x10^3/uL (0.0-0.7) Basophils # (Auto) 0.0 x10^3/uL (0.0-0.2) Segmented Neutrophils % 91 % (35-66) H Lymphocytes % 5 % (24-48) L Monocytes % 4 % (0-10) Platelet Estimate Adequate (ADEQUATE) Erythrocyte Sedimentation Rate 14 (0-25) Sodium Level 138 mmol/L (136-145) Potassium Level 7.4 mmol/L (3.5-5.1) *H Chloride Level 102 mmol/L (98-107) Carbon Dioxide Level 18 mmol/L (21-32) L Anion Gap 18 (6-14) H Blood Urea Nitrogen 122 mg/dL (7-20) H Creatinine 11.1 mg/dL (0.6-1.0) H Estimated GFR (Cockcroft-Gault) 3.4 Glucose Level 279 mg/dL (70-99) H Calcium Level 9.4 mg/dL (8.5-10.1) Total Bilirubin 0.4 mg/dL (0.2-1.0) Direct Bilirubin 0.2 mg/dL (0.0-0.2) Aspartate Amino Transferase (AST) 31 U/L (15-37) Alanine Aminotransferase (ALT) 40 U/L (14-59) Alkaline Phosphatase 147 U/L (46-116) H Troponin I Quantitative 0.118 ng/mL (0.000-0.055) Total Protein 6.2 g/dL (6.4-8.2) L Albumin 2.8 g/dL (3.4-5.0) L Lipase 88 U/L (73-393) Laboratory Tests 01/15/18 13:28 Laboratory Tests 01/15/18 13:28 EKG EKG [] Radiology/Procedures Radiology/Procedures [] Course & Med Decision Making Course & Med Decision Making Pertinent Labs and Imaging studies reviewed. (See chart for details) [] Dragon Disclaimer Dragon Disclaimer This electronic medical record was generated, in whole or in part, using a voice recognition dictation system. Departure Departure Impression: Primary Impression: Hyperkalemia Additional Impression: End stage renal disease Disposition: ADMITTED INPATIENT Admitting Physician: Thais Engle Condition: STABLE Referrals: ALESIA ZAVALA TRICHOLOGIST (PCP) Problem Qualifiers SCOTT DEJESUS MD Jan 15, 2018 13:30
[2018-01-15 13:39] LABS: BASO % 0 % (0-3); EOS % 0 % (0-3); HEMATOCRIT 34.2 % (36.0-47.0); HEMOGLOBIN 11.2 g/dL (12.0-15.5); LYMPH # 0.5 x10^3/uL (1.0-4.8); LYMPH % 7 % (24-48); MEAN CORPUSCULAR HEMOGLOBIN 29 pg (25-35); MEAN CORPUSCULAR HGB CONC 33 g/dL (31-37); MEAN CORPUSCULAR VOLUME 90 fL (79-100); MONO # 0.3 x10^3/uL (0.0-1.1); MONO % 5 % (0-9); NEUT % 87 % (31-73); PLATELET COUNT 234 x10^3/uL (140-400); RED BLOOD COUNT 3.82 x10^6/uL (3.50-5.40); RED CELL DISTRIBUTION WIDTH 16.7 % (11.5-14.5); WHITE BLOOD COUNT 6.8 x10^3/uL (4.0-11.0)
[2018-01-15 13:53] LABS: ALBUMIN 2.8 g/dL (3.4-5.0); CALCIUM 9.4 mg/dL (8.5-10.1); CREATININE 11.1 mg/dL (0.6-1.0); DIRECT BILIRUBIN 0.2 mg/dL (0.0-0.2); GFR 3.4; TOTAL BILIRUBIN 0.4 mg/dL (0.2-1.0); TOTAL PROTEIN 6.2 g/dL (6.4-8.2)
[2018-01-15] MEDS ORDERED: DEXTROSE 50% 25 GM / 50ML DISP.SYRIN. IV ONE (14:15)
[2018-01-15] MEDS ORDERED: SODIUM BICARB ADULT 8.4% 50 MEQ/50 ML DISP.SYRIN. IV ONE (14:15)
[2018-01-15] MEDS ORDERED: INSULIN REGULAR 100 UNIT/ML 3ML VIAL. IV ONE (14:15)
[2018-01-15] MEDS ORDERED: CALCIUM GLUCONATE 1,000 MG/10 ML VIAL. IVP ONE (14:15)
[2018-01-15] MEDS ORDERED: ALBUTEROL SULFATE 2.5 MG/3 ML NEBU. CONT NEB ONE (14:15)
[2018-01-15 14:26] LABS: % LYMPHS 5 % (24-48); % MONOS 4 % (0-10); % SEGS 91 % (35-66); PLT ESTIMATE ADEQUATE (ADEQUATE)
[2018-01-15] MEDS ORDERED: CALCIUM CARBONATE 500 MG TAB.CHEW PO PRN (14:45)
[2018-01-15] MEDS ORDERED: MAGNESIUM HYDROXIDE 2,400 MG/30 ML ORAL.SUSP. PO PRN (14:45)
[2018-01-15] MEDS ORDERED: diphenhydrAMINE HCL 25 MG CAPSULE PO PRN (14:45)
[2018-01-15] MEDS ORDERED: fentaNYL PF VIAL 100 MCG/2 ML VIAL IV PRN (14:45)
[2018-01-15] MEDS ORDERED: ALPRAZolam 0.25 MG TABLET PO PRN (14:45)
[2018-01-15] MEDS ORDERED: PROCHLORPERAZINE 10 MG/2 ML VIAL. IV PRN (14:45)
[2018-01-15] MEDS ORDERED: SODIUM POLYSTYRENE SULFONATE 15 GM/60 ML ORAL.SUSP. PO ONE (14:45)
[2018-01-15] MEDS ORDERED: BISACODYL 10 MG SUPP.RECT. PR PRN (14:45)
[2018-01-15] MEDS ORDERED: ONDANSETRON PF 4 MG/2 ML VIAL. IV PRN (14:45)
[2018-01-15] MEDS ORDERED: ACETAMINOPHEN 325 MG TABLET. PO PRN (14:45)
[2018-01-15] MEDS ORDERED: PROCHLORPERAZINE 25 MG SUPP.RECT. PR PRN (14:45)
--- NOTE | 2018-01-15 14:59 | PDOC1 ---
History and Physical Date of Admission Date of Admission DATE: 01/15/18 TIME: 14:48 Identification/Chief Complaint Chief Complaint feeling weak and unwell after missing HD x 3 weeks Source Source: Caregiver, Chart review, Patient History of Present Illness History of Present Illness Patient is known to me from past admissions related to the heart essentially arrhythmia, needing frequency ablation from [facility], defibrillator pacer etc. After her heart issues she ended up needing to be on dialysis and has been on dialysis for only just a few months this year. She has noncompliance issues. Looking at her, she has lost a significant amount of weight since I last saw her. She comes in because of the above chief complaint after missing dialysis for 3 weeks. She has no particular reason as to why she missed dialysis. She is very weak and takes at least 2 people including myself to boost her up in her bed. She has acute on chronic right heel wound which was recently I and D by vascular surgery Dr. Darling at [facility]. She tries to take care of her wound, there is some pus and whitish drainage coming out of it. It is circular and appears to have been recently I and D/d. Her usually takes care of her and drives her to dialysis if they can. She is supposed to be on medications which I'm unsure if she is taking. Labs are remarkable for a creatinine of 11 and a potassium of 7.4 with no EKG changes. Hemoglobin 11. Vital signs reviewed, blood pressure on the high side. SHe is currently getting temporizing measures for the hyperkalemia. We'll admit to telemetry, address the hyperkalemia, will need stat dialysis or at least renal to be called about this. I also will consult wound care, she wishes to follow with our [facility] wound clinic. Hemoglobin or WBC is normal with no sedimentation rate. I held off antibiotics for now or will consider pending ESR and wound care eval. Would not hurt to give some abx I guess Seen at ER, discussed with PIE [employer]KER MACHINE at bedside Patient is a full code. I think her overall poor medical issues is taking a toll on her and causes her to be depressed and not to be compliant with some things, ie dialysis sessions. Past Medical History Cardiovascular: CAD, HTN, Valve insufficiency, Other Pulmonary: COPD CENTRAL NERVOUS SYSTEM: Other Heme/Onc: Anemia NOS Psych: Depression Musculoskeletal: Other Renal/: Chronic renal failure, Other Endocrine: Diabetes, Hyperparathyroidism Past Surgical History Past Surgical History: Arthroscopy, Cholecystectomy, Tonsillectomy, Hysterectomy, Other Family History Family History: Diabetes, Hypertension Social History Smoke: No ALCOHOL: rare Drugs: None Current Medications Current Medications Current Medications Sodium Bicarbonate (Sodium Bicarb Adult 8.4% Syr) 50 meq 1X ONCE IV Last administered on 01/15/18at 14:17; Start 01/15/18 at 14:15; Stop 01/15/18 at 14 :16; Status DC Calcium Gluconate (Calcium Gluconate) 1,000 mg 1X ONCE IVP Last administered on 01/15/18at 14:17; Start 01/15/18 at 14:15; Stop 01/15/18 at 14:16; Status DC Albuterol Sulfate (Ventolin Neb Soln) 10 mg 1X ONCE CONT NEB ; Start 01/15/18 at 14:15; Stop 01/15/18 at 14:16; Status DC Insulin Human Regular (HumuLIN R VIAL) 10 unit 1X ONCE IV Last administered on 01/15/18at 14:18; Start 01/15/18 at 14:15; Stop 01/15/18 at 14:16; Status DC Dextrose (Dextrose 50%-Water Syringe) 25 gm 1X ONCE IV Last administered on at 14:19; Start 01/15/18 at 14:15; Stop 01/15/18 at 14:16; Status DC Ondansetron HCl (Zofran) 4 mg PRN Q6HRS PRN IV NAUSEA/VOMITING; Start at 14:45; Status UNV Prochlorperazine Edisylate (Compazine) 10 mg PRN Q6HRS PRN IV NAUSEA/VOMITING; Start 01/15/18 at 14:45; Status UNV Prochlorperazine (Compazine) 25 mg PRN Q12HR PRN NM NAUSEA/VOMITING; Start at 14:45; Status UNV Calcium Carbonate/ Glycine (Tums) 500 mg PRN Q3HRS PRN PO UPSET STOMACH; Start 01/15/18 at 14:45; Status UNV Acetaminophen (Tylenol) 650 mg PRN Q6HRS PRN PO Headaches, Temp > 101.5F; Start 01/15/18 at 14:45; Status UNV Magnesium Hydroxide (Milk Of Magnesia) 2,400 mg PRN Q12HR PRN PO CONSTIPATION; Start 01/15/18 at 14:45; Status UNV Bisacodyl (Dulcolax Supp) 10 mg PRN DAILY PRN NM CONSTIPATION; Start 01/15/18 at 14:45; Status UNV Enoxaparin Sodium (Lovenox 40mg Syringe) 40 mg Q24H SQ ; Start 01/15/18 at 14: 45; Status UNV Fentanyl Citrate (Fentanyl 2ml Vial) 50 mcg PRN Q2HR PRN IV PAIN; Start at 14:45; Status UNV Tramadol HCl (Ultram) 50 mg PRN Q6HRS PRN PO PAIN; Start 01/15/18 at 14:45; Status UNV Sodium Polystyrene Sulfonate (Kayexalate) 15 gm 1X ONCE PO ; Start 01/15/18 at 14:45; Stop 01/15/18 at 14:46; Status UNV Ondansetron HCl (Zofran) 4 mg PRN Q8HRS PRN IV NAUSEA/VOMITING; Start at 14:45; Stop 01/16/18 at 14:44; Status UNV Alprazolam (Xanax) 0.25 mg DAILY PRN PO ANXIETY / AGITATION; Start 01/15/18 at 14:45; Status UNV Aspirin (Ecotrin) 81 mg QHS PO ; Start 01/15/18 at 21:00; Status UNV Atorvastatin Calcium (Lipitor) 10 mg QHS PO ; Start 01/15/18 at 21:00; Status UNV Carvedilol (Coreg) 3.125 mg BIDWMEALS PO ; Start 01/15/18 at 17:00; Status UNV Cinacalcet (Sensipar) 30 mg QHS PO ; Start 01/15/18 at 21:00; Status UNV Clopidogrel Bisulfate (Plavix) 75 mg QHS PO ; Start 01/15/18 at 21:00; Status UNV Fentanyl (Duragesic 25mcg/ Hr Patch) 1 patch Q3DAYS TD ; Start 01/18/18 at 09: 00; Status UNV Acetaminophen/ Hydrocodone Bitart (Lortab 5/325) 1 tab QID PRN PO PAIN; Start 01/15/18 at 14:45; Status UNV Sertraline HCl (Zoloft) 50 mg QHS PO ; Start 01/15/18 at 21:00; Status UNV Non-Formulary Medication (Bacitracin ) 1 patricio BID TP ; Start 01/15/18 at 21:00; Status UNV Non-Formulary Medication (Calcium Acetate ) 2 tab TIDWMEALS PO ; Start at 17:00; Status UNV Non-Formulary Medication (Cranberry Conc/ Ascorbic Acid (Cranberry Plus Vitamin C Sftgl)) 1 each QHS PO ; Start 01/15/18 at 21:00; Status UNV Non-Formulary Medication (Gabapentin ) 300 mg QHS PO ; Start 01/15/18 at 21:00 ; Status UNV Non-Formulary Medication (Vit B Cmplx 3/ Fa/Vit C/Biotin (Alayna-Oneil Rx Tablet)) 1 each DAILY PO ; Start 01/16/18 at 09:00; Status UNV Diphenhydramine HCl (Benadryl) 25 mg PRN Q6HRS PRN PO ITCHING; Start 01/15/18 at 14:45; Status UNV Active Scripts Active Bacitracin 28.4 Gm Oint...g. 1 Patricio TP BID 14 Days FENTANYL 25mcg/hr (Fentanyl) 1 Each Patch.td72 1 Patch TD Q3DAYS 30 Days Hydrocodone-Apap 5-325 (Hydrocodone Bit/Acetaminophen) 1 Each Tablet 1 Tab PO PRN Q4-6HRS PRN Atorvastatin Calcium 10 Mg Tablet 10 Mg PO QHS 30 Days Carvedilol 3.125 Mg Tablet 3.125 Mg PO BIDWMEALS Reported Sertraline Hcl 50 Mg Tablet 50 Mg PO QHS Sensipar (Cinacalcet Hcl) 30 Mg Tablet 1 Tab PO QHS Alayna-Oneil Rx Tablet (Vit B Cmplx 3/Fa/Vit C/Biotin) 1 Each Tablet 1 Each PO DAILY Cranberry Plus Vitamin C Sftgl (Cranberry Conc/Ascorbic Acid) 1 Each Capsule 1 Each PO QHS Coricidin Hbp Tablet (Acetaminophen/Chlorpheniramine) 1 Each Tablet 1 Each PO PRN Alprazolam 0.25 Mg Tablet 1 Tab PO DAILY PRN Plavix (Clopidogrel Bisulfate) 75 Mg Tablet 75 Mg PO QHS Calcium Acetate 667 Mg Tablet 2 Tab PO TIDWMEALS Tylenol Extra Strength (Acetaminophen) 500 Mg Tablet 500 Mg PO PRN Q12HRS PRN Gabapentin 300 Mg Capsule 300 Mg PO QHS Benadryl Allergy (Diphenhydramine Hcl) 25 Mg Tablet 25 Mg PO PRN not given in the hospital Aspir 81 (Aspirin) 81 Mg Tablet.dr 81 Mg PO QHS Allergies Allergies: Coded Allergies: ciprofloxacin (Verified Allergy, Intermediate, Rash, 05/08/17) morphine (Verified Adverse Reaction, Severe, makes her skin crawl, 05/08/17 ) oxycodone (Verified Adverse Reaction, Severe, makes her skin crawl, ) adhesive (Verified Adverse Reaction, Intermediate, blisters, 05/08/17) "use paper tape" ROS Review of System POS for: depressed, right leg pain from the wound, chronic back pain, SOA, weak , fatigability, no CP, no abd issues Weak appetite, poor PO< weight loss Physical Exam General: Oriented X3, Cooperative, No acute distress, Other (very weak and cachectic looking/ill-looking) HEENT: Atraumatic, PERRLA Lungs: Clear to auscultation, Normal air movement, Other (diminished, no crackles or wheezing-has a pacer/defibrillator on the left chest) Heart: S1S2, RRR, no thrills, no rubs, no gallops, no murmurs, murmurs, no jug vein distention Breasts: Normal, Rt breast nml w/o mass, Lt breast nml w/o mass, Nipples normal Abdomen: Normal bowel sounds, Soft, No tenderness, No hepatosplenomegaly, No masses Rectal Exam: not examined PELVIC: Nml ext genitalia Extremities: Other (left AV fistula with good bruit and palpable pulses distally) Skin: Other (senile skin turgor, minimal subcutaneous tissue, multiple bruising from being on OAC or antiplatelets) Neuro: Normal gait, Normal speech, Strength at 5/5 X4 ext, Normal tone, Sensation intact, Cranial nerves 3-12 NL, Reflexes 2+ Psych/Mental Status: Mental status NL, Mood NL Vitals Vitals Vital Signs Date Time Temp Pulse Resp B/P (MAP) Pulse Ox O2 Delivery O2 Flow Rate FiO2 01/15/18 11:52 98.1 70 14 192/93 (126) 98 Room Air 98.1 Labs Labs Laboratory Tests Test 01/15/18 13:28 White Blood Count 6.8 x10^3/uL (4.0-11.0) Red Blood Count 3.82 x10^6/uL (3.50-5.40) Hemoglobin 11.2 g/dL (12.0-15.5) Hematocrit 34.2 % (36.0-47.0) Mean Corpuscular Volume 90 fL (79-100) Mean Corpuscular Hemoglobin 29 pg (25-35) Mean Corpuscular Hemoglobin Concent 33 g/dL (31-37) Red Cell Distribution Width 16.7 % (11.5-14.5) Platelet Count 234 x10^3/uL (140-400) Neutrophils (%) (Auto) 87 % (31-73) Lymphocytes (%) (Auto) 7 % (24-48) Monocytes (%) (Auto) 5 % (0-9) Eosinophils (%) (Auto) 0 % (0-3) Basophils (%) (Auto) 0 % (0-3) Neutrophils # (Auto) 6.0 x10^3uL (1.8-7.7) Lymphocytes # (Auto) 0.5 x10^3/uL (1.0-4.8) Monocytes # (Auto) 0.3 x10^3/uL (0.0-1.1) Eosinophils # (Auto) 0.0 x10^3/uL (0.0-0.7) Basophils # (Auto) 0.0 x10^3/uL (0.0-0.2) Segmented Neutrophils % 91 % (35-66) Lymphocytes % 5 % (24-48) Monocytes % 4 % (0-10) Platelet Estimate Adequate (ADEQUATE) Sodium Level 138 mmol/L (136-145) Potassium Level 7.4 mmol/L (3.5-5.1) Chloride Level 102 mmol/L (98-107) Carbon Dioxide Level 18 mmol/L (21-32) Anion Gap 18 (6-14) Blood Urea Nitrogen 122 mg/dL (7-20) Creatinine 11.1 mg/dL (0.6-1.0) Estimated GFR (Cockcroft-Gault) 3.4 Glucose Level 279 mg/dL (70-99) Calcium Level 9.4 mg/dL (8.5-10.1) Total Bilirubin 0.4 mg/dL (0.2-1.0) Direct Bilirubin 0.2 mg/dL (0.0-0.2) Aspartate Amino Transf (AST/SGOT) 31 U/L (15-37) Alanine Aminotransferase (ALT/SGPT) 40 U/L (14-59) Alkaline Phosphatase 147 U/L (46-116) Troponin I Quantitative 0.118 ng/mL (0.000-0.055) Total Protein 6.2 g/dL (6.4-8.2) Albumin 2.8 g/dL (3.4-5.0) Lipase 88 U/L (73-393) Laboratory Tests Test 01/15/18 13:28 White Blood Count 6.8 x10^3/uL (4.0-11.0) Red Blood Count 3.82 x10^6/uL (3.50-5.40) Hemoglobin 11.2 g/dL (12.0-15.5) Hematocrit 34.2 % (36.0-47.0) Mean Corpuscular Volume 90 fL (79-100) Mean Corpuscular Hemoglobin 29 pg (25-35) Mean Corpuscular Hemoglobin Concent 33 g/dL (31-37) Red Cell Distribution Width 16.7 % (11.5-14.5) Platelet Count 234 x10^3/uL (140-400) Neutrophils (%) (Auto) 87 % (31-73) Lymphocytes (%) (Auto) 7 % (24-48) Monocytes (%) (Auto) 5 % (0-9) Eosinophils (%) (Auto) 0 % (0-3) Basophils (%) (Auto) 0 % (0-3) Neutrophils # (Auto) 6.0 x10^3uL (1.8-7.7) Lymphocytes # (Auto) 0.5 x10^3/uL (1.0-4.8) Monocytes # (Auto) 0.3 x10^3/uL (0.0-1.1) Eosinophils # (Auto) 0.0 x10^3/uL (0.0-0.7) Basophils # (Auto) 0.0 x10^3/uL (0.0-0.2) Segmented Neutrophils % 91 % (35-66) Lymphocytes % 5 % (24-48) Monocytes % 4 % (0-10) Platelet Estimate Adequate (ADEQUATE) Sodium Level 138 mmol/L (136-145) Potassium Level 7.4 mmol/L (3.5-5.1) Chloride Level 102 mmol/L (98-107) Carbon Dioxide Level 18 mmol/L (21-32) Anion Gap 18 (6-14) Blood Urea Nitrogen 122 mg/dL (7-20) Creatinine 11.1 mg/dL (0.6-1.0) Estimated GFR (Cockcroft-Gault) 3.4 Glucose Level 279 mg/dL (70-99) Calcium Level 9.4 mg/dL (8.5-10.1) Total Bilirubin 0.4 mg/dL (0.2-1.0) Direct Bilirubin 0.2 mg/dL (0.0-0.2) Aspartate Amino Transf (AST/SGOT) 31 U/L (15-37) Alanine Aminotransferase (ALT/SGPT) 40 U/L (14-59) Alkaline Phosphatase 147 U/L (46-116) Troponin I Quantitative 0.118 ng/mL (0.000-0.055) Total Protein 6.2 g/dL (6.4-8.2) Albumin 2.8 g/dL (3.4-5.0) Lipase 88 U/L (73-393) VTE Prophylaxis Ordered VTE Prophylaxis Devices: Yes VTE Pharmacological Prophylaxi: Yes Assessment/Plan Assessment/Plan 1. HYPERKALEMIA, critical, ESRD on HD MWF - missed three weeks worth sec to multiple factors namely, noncompliance, generalized weakness, difficulty ambulation, and all likelihood depression. 2. chronic diastolic CHF: 3. COPD with continued tobaccoism 4. Left leg cellulitis recent I and D by kieran leos at [facility] 5. Hx of VT/cardiac arrest: s/p VT ablation 11/2016. 6. CAD: multiple stents in 2017 7. AICD insitu: 8. Known PAD: 9. DM2/HLP 10. HTN: mild labile PLAN: Admit 2 midnights Hook to telemetry Stat temporizing measures for hyperkalemia Add Kayexalate 15 g 1 PO Repeat potassium sometime in the afternoon Urgent call to renal Continue home meds DVT prophylaxis with SCDs if able - above the wound and also Lovenox 30 SQ qD Nutrition consult Start trial of Megace to increase appetite Would recommend nutritional supplements Wound care consult Silver sulfadiazine etc. to the wound Check a sedimentation rate I did start empiric Zosyn Check blood cultures before Zosyn I did hold off infectious disease but did consult vas surgery as follow-up- recent I and D at [facility] by Dr Darling So far not smoking anymore Social work for SNU/rehabilitation she just got out of healthcare resort, she is very weak, 2 person maximum assist , with minimal resources at home Prognosis is guarded to poor. We'll consider trial of SSRI actually, she is depressed for multiple medical reasons Seen in emergency room, discussed with ER staff MICHELLE DOWD MD Jan 15, 2018 14:59
[2018-01-15] MEDS ORDERED: LABETALOL 20 MG/4 ML DISP.SYRIN. IVP PRN (15:00)
[2018-01-15] MEDS ORDERED: ENOXAPARIN 40 MG/0.4 ML SYRINGE. SQ SCH (15:00)
[2018-01-15] MEDS ORDERED: PIP/TAZO PER PHARMACY MC PRN (15:00)
[2018-01-15] MEDS ORDERED: silver sulfADIAZINE 1% CREAM 25GM TUBE. TP ONE (15:00)
[2018-01-15] MEDS ORDERED: IV NORMAL SALINE 1000ML BAG 1,000 ML IV PRN ×2 (15:32)
[2018-01-15] MEDS: HYDROcodone/APAP 5/325MG 1 TAB TABLET PO PRN (15:34)
[2018-01-15] MEDS ORDERED: DIALYSIS PATIENT. MC PRN (15:45)
[2018-01-15] MEDS ORDERED: ALBUMIN HUMAN 25% 200 ML IV PRN (15:45)
[2018-01-15 16:10] LABS: BILIRUBIN,URINE NEGATIVE (NEG); CLARITY,URINE CLEAR; COLOR,URINE YELLOW; NITRITE,URINE NEGATIVE (NEG); PH,URINE 5.5; PROTEIN,URINE >=300 mg/dL (NEG-TRACE); UROBILINOGEN,URINE 0.2 mg/dL (0.2 mg/dL)
[2018-01-15 16:15] LABS: BACTERIA,URINE MANY /HPF (0-FEW); RBC,URINE OCC /HPF (0-2); SQUAMOUS EPITHELIAL CELL,UR MANY /LPF
[2018-01-15 16:16] LABS: YEAST,URINE PRESENT /HPF
[2018-01-15] MEDS ORDERED: PIPERACILLIN/TAZOBACTAM 2.25 GM in IV NORMAL SALINE 50ML 50 ML IV ONE (17:00)
[2018-01-15] MEDS: CALCIUM ACETATE 667 MG CAPSULE PO SCH (17:00)
[2018-01-15] MEDS ORDERED: [UNRECOGNIZED DRUG - OTHER] PO SCH (21:00)
[2018-01-15] MEDS ORDERED: ASCORBIC ACID PO SCH (21:00)
[2018-01-15] MEDS ORDERED: CRANBERRY PO SCH (21:00)
[2018-01-15] MEDS: PIPERACILLIN/TAZOBACTAM 2.25 GM in IV NORMAL SALINE 50ML 50 ML IV SCH (22:13)
[2018-01-15] MEDS: fentaNYL 25MCG/HR PATCH 1 PATCH PATCH.TD72 TD SCH (22:30)
[2018-01-15] MEDS: MEGESTROL 20 MG TABLET. PO SCH (22:35)
[2018-01-15] MEDS: CARVEDILOL 3.125 MG TABLET. PO SCH (22:35)
[2018-01-15] MEDS: CINACALCET HCL 30 MG TABLET PO SCH (22:36)
[2018-01-15] MEDS: ASPIRIN ENTERIC COATED 81 MG TABLET.DR. PO SCH (22:36)
[2018-01-15] MEDS: ATORVASTATIN CALCIUM 10 MG TABLET. PO SCH (22:36)
[2018-01-15] MEDS: GABAPENTIN 300 MG CAPSULE. PO SCH (22:36)
[2018-01-15] MEDS: SERTRALINE 50 MG TABLET. PO SCH (22:36)
[2018-01-15] MEDS: CLOPIDOGREL BISULFATE 75 MG TABLET PO SCH (22:36)
[2018-01-15] MEDS: BACITRACIN TOPICAL OINT 14GM TUBE. TP SCH (22:40)
[2018-01-15] MEDS: HEPARIN for SUB-Q USE 5,000 UNIT/ML VIAL. SQ SCH (22:40)
[2018-01-15 23:00] VITALS: BP 117/76
[2018-01-16 03:00] VITALS: BP 152/68
[2018-01-16] MEDS: ONDANSETRON PF 4 MG/2 ML VIAL. IV PRN (05:45)
[2018-01-16] MEDS: HYDROcodone/APAP 5/325MG 1 TAB TABLET PO PRN ×2 (05:46→17:36)
[2018-01-16] MEDS: PIPERACILLIN/TAZOBACTAM 2.25 GM in IV NORMAL SALINE 50ML 50 ML IV SCH ×3 (05:54→22:00)
[2018-01-16] MEDS: HEPARIN for SUB-Q USE 5,000 UNIT/ML VIAL. SQ SCH ×3 (05:57→22:00)
[2018-01-16 07:00] VITALS: BP 147/63
[2018-01-16] MEDS ORDERED: IV NORMAL SALINE 1000ML BAG 1,000 ML IV PRN ×2 (07:23)
[2018-01-16 07:29] LABS: BASO % 0 % (0-3); EOS # 0.1 x10^3/uL (0.0-0.7); EOS % 1 % (0-3); HEMATOCRIT 29.6 % (36.0-47.0); LYMPH # 1.3 x10^3/uL (1.0-4.8); LYMPH % 15 % (24-48); MEAN CORPUSCULAR HEMOGLOBIN 30 pg (25-35); MEAN CORPUSCULAR HGB CONC 34 g/dL (31-37); MEAN CORPUSCULAR VOLUME 88 fL (79-100); MONO # 0.6 x10^3/uL (0.0-1.1); MONO % 7 % (0-9); NEUT # 6.8 x10^3uL (1.8-7.7); NEUT % 77 % (31-73); PLATELET COUNT 174 x10^3/uL (140-400); RED BLOOD COUNT 3.35 x10^6/uL (3.50-5.40); RED CELL DISTRIBUTION WIDTH 16.7 % (11.5-14.5); WHITE BLOOD COUNT 8.8 x10^3/uL (4.0-11.0)
[2018-01-16] MEDS ORDERED: DIALYSIS PATIENT. MC PRN ×2 (07:30)
[2018-01-16] MEDS ORDERED: LIDOCAINE 1% PF 2 ML VIAL. INJ ONE (07:30)
[2018-01-16] MEDS ORDERED: 0.9 % SODIUM CHLORIDE 10 ML DISP.SYRIN. IV PRN ×2 (07:30)
[2018-01-16] MEDS ORDERED: ALBUMIN HUMAN 25% 200 ML IV PRN (07:30)
[2018-01-16 07:43] LABS: CALCIUM 8.7 mg/dL (8.5-10.1); CREATININE 7.5 mg/dL (0.6-1.0); GFR 5.4; POTASSIUM 4.9 mmol/L (3.5-5.1)
[2018-01-16] MEDS: CARVEDILOL 3.125 MG TABLET. PO SCH ×2 (08:00→17:37)
[2018-01-16] MEDS: CALCIUM ACETATE 667 MG CAPSULE PO SCH ×3 (08:00→17:37)
[2018-01-16] MEDS: BACITRACIN TOPICAL OINT 14GM TUBE. TP SCH ×2 (09:00→21:00)
[2018-01-16] MEDS: FOLIC/VIT B COMP W-C (RENAL) TABLET. PO SCH (09:00)
[2018-01-16] MEDS: MEGESTROL 20 MG TABLET. PO SCH (09:00)
--- NOTE | 2018-01-16 10:20 | PDOC2 ---
CONSULT Date of Consult Date of Consult DATE: 01/16/18 TIME: 10:08 Reason for Consult Reason for Consult: ESRD Source Source: Chart review, Patient History of Present Illness Reason for Visit: Patient is 67 yo female with multiple hospitalizations - related to arrhythmias , needing frequency ablation from [facility], defibrillator pacer etc. After her heart issues she ended up needing to be on dialysis and has been on dialysis for only just a few months this year. She has noncompliance issues. She has lost significant amount of weight . She is hospitalized as she missed dialysis for 3 weeks. She has no particular reason as to why she missed dialysis. She is very weak .. She has acute on chronic right heel wound which was recently I and D by vascular surgery Dr. Darling at [facility]. She tries to take care of her wound, there is some pus and whitish drainage coming out of it. Her usually takes care of her and drives her to dialysis if they can. Not sure if complaint with medications. She was Hospitalized last night with potassium of 7.4 with no EKG changes. She was Dialyzed last night . Past Medical History Cardiovascular: CAD, HTN, Valve insufficiency, Other Pulmonary: COPD CENTRAL NERVOUS SYSTEM: Other Heme/Onc: Anemia NOS Psych: Depression Musculoskeletal: Other Renal/: Chronic renal failure, Other Endocrine: Diabetes, Hyperparathyroidism Past Surgical History Past Surgical History: Arthroscopy, Cholecystectomy, Tonsillectomy, Hysterectomy, Other Family History Family History: Diabetes, Hypertension Social History No ALCOHOL: rare Drugs: None Lives: with Family Current Problem List Problem List Problems Medical Problems: (1) End stage renal disease Status: Acute (2) Hyperkalemia Status: Acute Current Medications Current Medications Current Medications Sodium Bicarbonate (Sodium Bicarb Adult 8.4% Syr) 50 meq 1X ONCE IV Last administered on 01/15/18at 14:17; Start 01/15/18 at 14:15; Stop 01/15/18 at 14 :16; Status DC Calcium Gluconate (Calcium Gluconate) 1,000 mg 1X ONCE IVP Last administered on 01/15/18at 14:17; Start 01/15/18 at 14:15; Stop 01/15/18 at 14:16; Status DC Albuterol Sulfate (Ventolin Neb Soln) 10 mg 1X ONCE CONT NEB Last administered on 01/15/18at 14:15; Start 01/15/18 at 14:15; Stop 01/15/18 at 14 :16; Status DC Insulin Human Regular (HumuLIN R VIAL) 10 unit 1X ONCE IV Last administered on 01/15/18at 14:18; Start 01/15/18 at 14:15; Stop 01/15/18 at 14:16; Status DC Dextrose (Dextrose 50%-Water Syringe) 25 gm 1X ONCE IV Last administered on at 14:19; Start 01/15/18 at 14:15; Stop 01/15/18 at 14:16; Status DC Ondansetron HCl (Zofran) 4 mg PRN Q6HRS PRN IV NAUSEA/VOMITING Last administered on 01/16/18at 05:45; Start 01/15/18 at 14:45 Prochlorperazine Edisylate (Compazine) 10 mg PRN Q6HRS PRN IV NAUSEA/VOMITING; Start 01/15/18 at 14:45 Prochlorperazine (Compazine) 25 mg PRN Q12HR PRN TX NAUSEA/VOMITING; Start at 14:45 Calcium Carbonate/ Glycine (Tums) 500 mg PRN Q3HRS PRN PO UPSET STOMACH; Start 01/15/18 at 14:45 Acetaminophen (Tylenol) 650 mg PRN Q6HRS PRN PO Headaches, Temp > 101.5F; Start 01/15/18 at 14:45 Magnesium Hydroxide (Milk Of Magnesia) 2,400 mg PRN Q12HR PRN PO CONSTIPATION; Start 01/15/18 at 14:45 Bisacodyl (Dulcolax Supp) 10 mg PRN DAILY PRN TX CONSTIPATION; Start 01/15/18 at 14:45 Enoxaparin Sodium (Lovenox 40mg Syringe) 40 mg Q24H SQ ; Start 01/15/18 at 15: 00; Status UNV Fentanyl Citrate (Fentanyl 2ml Vial) 50 mcg PRN Q2HR PRN IV PAIN Last administered on 01/16/18at 09:03; Start 01/15/18 at 14:45 Tramadol HCl (Ultram) 50 mg PRN Q6HRS PRN PO MILD PAIN; Start 01/15/18 at 14: 45 Sodium Polystyrene Sulfonate (Kayexalate) 15 gm 1X ONCE PO ; Start 01/15/18 at 14:45; Stop 01/15/18 at 15:05; Status DC Ondansetron HCl (Zofran) 4 mg PRN Q8HRS PRN IV NAUSEA/VOMITING; Start at 14:45; Stop 01/16/18 at 14:44 Alprazolam (Xanax) 0.25 mg PRN DAILY PRN PO ANXIETY / AGITATION; Start at 14:45 Aspirin (Ecotrin) 81 mg QHS PO Last administered on 01/15/18at 22:36; Start at 21:00 Atorvastatin Calcium (Lipitor) 10 mg QHS PO Last administered on 01/15/18at 22: 36; Start 01/15/18 at 21:00 Carvedilol (Coreg) 3.125 mg BIDWMEALS PO Last administered on 01/15/18at 22:35 ; Start 01/15/18 at 17:00 Cinacalcet (Sensipar) 30 mg QHS PO Last administered on 01/15/18at 22:36; Start 01/15/18 at 21:00 Clopidogrel Bisulfate (Plavix) 75 mg QHS PO Last administered on 01/15/18at 22: 36; Start 01/15/18 at 21:00 Fentanyl (Duragesic 25mcg/ Hr Patch) 1 patch Q3DAYS TD Last administered on at 22:30; Start 01/15/18 at 15:00 Acetaminophen/ Hydrocodone Bitart (Lortab 5/325) 1 tab PRN QID PRN PO MODERATE PAIN Last administered on 01/16/18at 05:46; Start 01/15/18 at 14:45 Sertraline HCl (Zoloft) 50 mg QHS PO Last administered on 01/15/18at 22:36; Start 01/15/18 at 21:00 Bacitracin 1 patricio BID TP ; Start 01/15/18 at 21:00 Calcium Acetate (Phoslo) 1,334 mg TIDWMEALS PO ; Start 01/15/18 at 17:00 Non-Formulary Medication (Cranberry Conc/ Ascorbic Acid (Cranberry Plus Vitamin C Sftgl)) 1 each QHS PO ; Start 01/15/18 at 21:00; Stop 01/15/18 at 21:00; Status DC Gabapentin (Neurontin) 300 mg QHS PO Last administered on 01/15/18at 22:36; Start 01/15/18 at 21:00 Vitamin B Complex/ Vitamin C (Alayna-Oneil) 1 tab DAILY PO ; Start 01/16/18 at 09: 00 Diphenhydramine HCl (Benadryl) 25 mg PRN Q6HRS PRN PO ITCHING; Start 01/15/18 at 14:45 Piperacillin Sod/ Tazobactam Sod (Zosyn Per Pharmacy) 1 each PRN DAILY PRN MC SEE COMMENTS; Start 01/15/18 at 15:00 Megestrol Acetate (Megace) 20 mg DAILY PO Last administered on 01/15/18at 22:35 ; Start 01/15/18 at 17:00 Silver Sulfadiazine (Silvadene) 1 patricio 1X ONCE TP ; Start 01/15/18 at 15:00; Stop 01/15/18 at 15:13; Status DC Labetalol HCl (Normodyne Iv Push) 10 mg PRN Q2HR PRN IVP HYPERTENSION, SEE COMMENTS; Start 01/15/18 at 15:00 Sodium Chloride 1,000 ml @ 1,000 mls/hr Q1H PRN IV hypotension; Start at 15:32; Stop 01/15/18 at 21:31; Status DC Albumin Human 200 ml @ 200 mls/hr 1X PRN PRN IV Hypotension; Start 01/15/18 at 15:45; Stop 01/15/18 at 21:44; Status DC Sodium Chloride 1,000 ml @ 400 mls/hr Q2H30M PRN IV PATENCY; Start 01/15/18 at 15:32; Stop 01/16/18 at 03:31; Status DC Info (PHARMACY MONITORING -- do not chart) 1 each PRN DAILY PRN MC SEE COMMENTS ; Start 01/15/18 at 15:45; Stop 01/16/18 at 07:35; Status DC Piperacillin Sod/ Tazobactam Sod 2.25 gm/Sodium Chloride 50 ml @ 100 mls/hr Q8HRS IV Last administered on 01/16/18at 05:54; Start 01/15/18 at 22:00 Heparin Sodium (Porcine) (Heparin Sodium) 5,000 unit Q8HRS SQ ; Start 01/15/18 at 22:00 Piperacillin Sod/ Tazobactam Sod 2.25 gm/Sodium Chloride 50 ml @ 100 mls/hr 1X ONCE IV ; Start 01/15/18 at 17:00; Stop 01/15/18 at 17:29; Status DC Sodium Chloride 1,000 ml @ 1,000 mls/hr Q1H PRN IV hypotension; Start at 07:23; Stop 01/16/18 at 13:22 Albumin Human 200 ml @ 200 mls/hr 1X PRN PRN IV Hypotension; Start 01/16/18 at 07:30; Stop 01/16/18 at 13:29 Sodium Chloride (Normal Saline Flush) 10 ml 1X PRN PRN IV AP catheter pack; Start 01/16/18 at 07:30; Stop 01/17/18 at 07:29 Sodium Chloride (Normal Saline Flush) 10 ml 1X PRN PRN IV [employer] catheter pack; Start 01/16/18 at 07:30; Stop 01/17/18 at 07:29 Sodium Chloride 1,000 ml @ 400 mls/hr Q2H30M PRN IV PATENCY; Start 01/16/18 at 07:23; Stop 01/16/18 at 19:22 Info (PHARMACY MONITORING -- do not chart) 1 each PRN DAILY PRN MC SEE COMMENTS ; Start 01/16/18 at 07:30 Info (PHARMACY MONITORING -- do not chart) 1 each PRN DAILY PRN MC SEE COMMENTS ; Start 01/16/18 at 07:30; Status UNV Lidocaine HCl (Xylocaine-Mpf 1% 2ml Vial) 2 ml 1X ONCE INJ ; Start 01/16/18 at 07:30; Stop 01/16/18 at 07:35; Status DC Active Scripts Active Bacitracin 28.4 Gm Oint...g. 1 Patricio TP BID 14 Days FENTANYL 25mcg/hr (Fentanyl) 1 Each Patch.td72 1 Patch TD Q3DAYS 30 Days Hydrocodone-Apap 5-325 (Hydrocodone Bit/Acetaminophen) 1 Each Tablet 1 Tab PO PRN Q4-6HRS PRN Atorvastatin Calcium 10 Mg Tablet 10 Mg PO QHS 30 Days Carvedilol 3.125 Mg Tablet 3.125 Mg PO BIDWMEALS Reported Sertraline Hcl 50 Mg Tablet 50 Mg PO QHS Sensipar (Cinacalcet Hcl) 30 Mg Tablet 1 Tab PO QHS Alayna-Oneil Rx Tablet (Vit B Cmplx 3/Fa/Vit C/Biotin) 1 Each Tablet 1 Each PO DAILY Cranberry Plus Vitamin C Sftgl (Cranberry Conc/Ascorbic Acid) 1 Each Capsule 1 Each PO QHS Coricidin Hbp Tablet (Acetaminophen/Chlorpheniramine) 1 Each Tablet 1 Each PO PRN Alprazolam 0.25 Mg Tablet 1 Tab PO DAILY PRN Plavix (Clopidogrel Bisulfate) 75 Mg Tablet 75 Mg PO QHS Calcium Acetate 667 Mg Tablet 2 Tab PO TIDWMEALS Tylenol Extra Strength (Acetaminophen) 500 Mg Tablet 500 Mg PO PRN Q12HRS PRN Gabapentin 300 Mg Capsule 300 Mg PO QHS Benadryl Allergy (Diphenhydramine Hcl) 25 Mg Tablet 25 Mg PO PRN not given in the hospital Aspir 81 (Aspirin) 81 Mg Tablet.dr 81 Mg PO QHS Allergies Allergies: Coded Allergies: ciprofloxacin (Verified Allergy, Intermediate, Rash, 05/08/17) morphine (Verified Adverse Reaction, Severe, makes her skin crawl, 05/08/17 ) oxycodone (Verified Adverse Reaction, Severe, makes her skin crawl, ) adhesive (Verified Adverse Reaction, Intermediate, blisters, 05/08/17) "use paper tape" ROS Review of System As per HPI Physical Exam Physical Exam General: No acute distress, cachectic HEENT: OM moist Neck No JVD Lungs: Clear to auscultation, Non labored breathing Heart: S1S2, RRR,has a pacer/defibrillator on the left chest Abdomen: Normal bowel sounds, Soft, Extremities: left AV fistula with good bruit and thrill , No LE edema Skin: multiple bruising Neuro: grossly Normal - No [place], No C VA or SP tenderness Vital Signs Vital Signs Date Time Temp Pulse Resp B/P (MAP) Pulse Ox O2 Delivery O2 Flow Rate FiO2 01/16/18 09:03 Room Air 01/16/18 07:00 98.0 60 16 147/63 (91) 90 98.0 Assessment & Plan ESRD- Non complaint with HD Last dialysis prior to hospitalization for 3 weeks back Dialyzed last night for Hyperkalemia Dialysis again today as Ordered , JERARDO change attendant Hyperkalemia- K of 7.9 last night Dialyzed last night K normal today Hx of VT/cardiac arrest: s/p VT ablation 11/2016. CAD: multiple stents in 2017 AICD insitu: Multiple hospitalization at various Hospitals, including [facility] Left leg cellulitis recent I and D by vasc sx at [facility] On Abx as per primary Anemia- Aranaesp as per protocol Discussed with soap tender Labs Labs Laboratory Tests Test 01/15/18 13:28 01/15/18 15:50 01/16/18 06:25 01/16/18 06:35 White Blood Count 6.8 x10^3/uL (4.0-11.0) 8.8 x10^3/uL (4.0-11.0) Red Blood Count 3.82 x10^6/uL (3.50-5.40) 3.35 x10^6/uL (3.50-5.40) Hemoglobin 11.2 g/dL (12.0-15.5) 10.0 g/dL (12.0-15.5) Hematocrit 34.2 % (36.0-47.0) 29.6 % (36.0-47.0) Mean Corpuscular Volume 90 fL (79-100) 88 fL (79-100) Mean Corpuscular Hemoglobin 29 pg (25-35) 30 pg (25-35) Mean Corpuscular Hemoglobin Concent 33 g/dL (31-37) 34 g/dL (31-37) Red Cell Distribution Width 16.7 % (11.5-14.5) 16.7 % (11.5-14.5) Platelet Count 234 x10^3/uL (140-400) 174 x10^3/uL (140-400) Neutrophils (%) (Auto) 87 % (31-73) 77 % (31-73) Lymphocytes (%) (Auto) 7 % (24-48) 15 % (24-48) Monocytes (%) (Auto) 5 % (0-9) 7 % (0-9) Eosinophils (%) (Auto) 0 % (0-3) 1 % (0-3) Basophils (%) (Auto) 0 % (0-3) 0 % (0-3) Neutrophils # (Auto) 6.0 x10^3uL (1.8-7.7) 6.8 x10^3uL (1.8-7.7) Lymphocytes # (Auto) 0.5 x10^3/uL (1.0-4.8) 1.3 x10^3/uL (1.0-4.8) Monocytes # (Auto) 0.3 x10^3/uL (0.0-1.1) 0.6 x10^3/uL (0.0-1.1) Eosinophils # (Auto) 0.0 x10^3/uL (0.0-0.7) 0.1 x10^3/uL (0.0-0.7) Basophils # (Auto) 0.0 x10^3/uL (0.0-0.2) 0.0 x10^3/uL (0.0-0.2) Segmented Neutrophils % 91 % (35-66) Lymphocytes % 5 % (24-48) Monocytes % 4 % (0-10) Platelet Estimate Adequate (ADEQUATE) Erythrocyte Sedimentation Rate 14 (0-25) Sodium Level 138 mmol/L (136-145) 139 mmol/L (136-145) Potassium Level 7.4 mmol/L (3.5-5.1) 4.9 mmol/L (3.5-5.1) Chloride Level 102 mmol/L (98-107) 99 mmol/L (98-107) Carbon Dioxide Level 18 mmol/L (21-32) 27 mmol/L (21-32) Anion Gap 18 (6-14) 13 (6-14) Blood Urea Nitrogen 122 mg/dL (7-20) 70 mg/dL (7-20) Creatinine 11.1 mg/dL (0.6-1.0) 7.5 mg/dL (0.6-1.0) Estimated GFR (Cockcroft-Gault) 3.4 5.4 Glucose Level 279 mg/dL (70-99) 110 mg/dL (70-99) Calcium Level 9.4 mg/dL (8.5-10.1) 8.7 mg/dL (8.5-10.1) Total Bilirubin 0.4 mg/dL (0.2-1.0) Direct Bilirubin 0.2 mg/dL (0.0-0.2) Aspartate Amino Transf (AST/SGOT) 31 U/L (15-37) Alanine Aminotransferase (ALT/SGPT) 40 U/L (14-59) Alkaline Phosphatase 147 U/L (46-116) Troponin I Quantitative 0.118 ng/mL (0.000-0.055) Total Protein 6.2 g/dL (6.4-8.2) Albumin 2.8 g/dL (3.4-5.0) Lipase 88 U/L (73-393) Urine Collection Type Unknown Urine Color Yellow Urine Clarity Clear Urine pH 5.5 Urine Specific [place] 1.025 Urine Protein >=300 mg/dL (NEG-TRACE) Urine Glucose (UA) 500 mg/dL (NEG) Urine Ketones (Stick) Negative mg/dL (NEG) Urine Blood Trace (NEG) Urine Nitrite Negative (NEG) Urine Bilirubin Negative (NEG) Urine Urobilinogen Dipstick 0.2 mg/dL (0.2 mg/dL) Urine Leukocyte Esterase Negative (NEG) Urine RBC Occ /HPF (0-2) Urine WBC 5-10 /HPF (0-4) Urine Squamous Epithelial Cells Many /LPF Urine Bacteria Many /HPF (0-FEW) Urine Yeast Present /HPF Laboratory Tests Test 01/15/18 13:28 01/15/18 15:50 01/16/18 06:25 01/16/18 06:35 White Blood Count 6.8 x10^3/uL (4.0-11.0) 8.8 x10^3/uL (4.0-11.0) Red Blood Count 3.82 x10^6/uL (3.50-5.40) 3.35 x10^6/uL (3.50-5.40) Hemoglobin 11.2 g/dL (12.0-15.5) 10.0 g/dL (12.0-15.5) Hematocrit 34.2 % (36.0-47.0) 29.6 % (36.0-47.0) Mean Corpuscular Volume 90 fL (79-100) 88 fL (79-100) Mean Corpuscular Hemoglobin 29 pg (25-35) 30 pg (25-35) Mean Corpuscular Hemoglobin Concent 33 g/dL (31-37) 34 g/dL (31-37) Red Cell Distribution Width 16.7 % (11.5-14.5) 16.7 % (11.5-14.5) Platelet Count 234 x10^3/uL (140-400) 174 x10^3/uL (140-400) Neutrophils (%) (Auto) 87 % (31-73) 77 % (31-73) Lymphocytes (%) (Auto) 7 % (24-48) 15 % (24-48) Monocytes (%) (Auto) 5 % (0-9) 7 % (0-9) Eosinophils (%) (Auto) 0 % (0-3) 1 % (0-3) Basophils (%) (Auto) 0 % (0-3) 0 % (0-3) Neutrophils # (Auto) 6.0 x10^3uL (1.8-7.7) 6.8 x10^3uL (1.8-7.7) Lymphocytes # (Auto) 0.5 x10^3/uL (1.0-4.8) 1.3 x10^3/uL (1.0-4.8) Monocytes # (Auto) 0.3 x10^3/uL (0.0-1.1) 0.6 x10^3/uL (0.0-1.1) Eosinophils # (Auto) 0.0 x10^3/uL (0.0-0.7) 0.1 x10^3/uL (0.0-0.7) Basophils # (Auto) 0.0 x10^3/uL (0.0-0.2) 0.0 x10^3/uL (0.0-0.2) Segmented Neutrophils % 91 % (35-66) Lymphocytes % 5 % (24-48) Monocytes % 4 % (0-10) Platelet Estimate Adequate (ADEQUATE) Erythrocyte Sedimentation Rate 14 (0-25) Sodium Level 138 mmol/L (136-145) 139 mmol/L (136-145) Potassium Level 7.4 mmol/L (3.5-5.1) 4.9 mmol/L (3.5-5.1) Chloride Level 102 mmol/L (98-107) 99 mmol/L (98-107) Carbon Dioxide Level 18 mmol/L (21-32) 27 mmol/L (21-32) Anion Gap 18 (6-14) 13 (6-14) Blood Urea Nitrogen 122 mg/dL (7-20) 70 mg/dL (7-20) Creatinine 11.1 mg/dL (0.6-1.0) 7.5 mg/dL (0.6-1.0) Estimated GFR (Cockcroft-Gault) 3.4 5.4 Glucose Level 279 mg/dL (70-99) 110 mg/dL (70-99) Calcium Level 9.4 mg/dL (8.5-10.1) 8.7 mg/dL (8.5-10.1) Total Bilirubin 0.4 mg/dL (0.2-1.0) Direct Bilirubin 0.2 mg/dL (0.0-0.2) Aspartate Amino Transf (AST/SGOT) 31 U/L (15-37) Alanine Aminotransferase (ALT/SGPT) 40 U/L (14-59) Alkaline Phosphatase 147 U/L (46-116) Troponin I Quantitative 0.118 ng/mL (0.000-0.055) Total Protein 6.2 g/dL (6.4-8.2) Albumin 2.8 g/dL (3.4-5.0) Lipase 88 U/L (73-393) Urine Collection Type Unknown Urine Color Yellow Urine Clarity Clear Urine pH 5.5 Urine Specific [place] 1.025 Urine Protein >=300 mg/dL (NEG-TRACE) Urine Glucose (UA) 500 mg/dL (NEG) Urine Ketones (Stick) Negative mg/dL (NEG) Urine Blood Trace (NEG) Urine Nitrite Negative (NEG) Urine Bilirubin Negative (NEG) Urine Urobilinogen Dipstick 0.2 mg/dL (0.2 mg/dL) Urine Leukocyte Esterase Negative (NEG) Urine RBC Occ /HPF (0-2) Urine WBC 5-10 /HPF (0-4) Urine Squamous Epithelial Cells Many /LPF Urine Bacteria Many /HPF (0-FEW) Urine Yeast Present /HPF Review All relevant outside records, renal labs, imaging studies, telemetry/EKG's were reviewed. JULIET DAVEY MD Jan 16, 2018 10:20
--- NOTE | 2018-01-16 11:34 | PDOC ---
PROGRESS NOTES Chief Complaint Chief Complaint 1. HYPERKALEMIA, critical, ESRD on HD MWF - missed three weeks worth sec to multiple factors namely, noncompliance, generalized weakness, difficulty ambulation, and all likelihood depression. 2. chronic diastolic CHF: 3. COPD with continued tobaccoism 4. Left leg cellulitis recent I and D by vasc sx at [facility] 5. Hx of VT/cardiac arrest: s/p VT ablation 11/2016. 6. CAD: multiple stents in 2017 7. AICD insitu: 8. Known PAD: 9. DM2/HLP 10. HTN: mild labile History of Present Illness History of Present Illness She is seen in dialysis Looks and feels better Had stat dialysis last night and now undergoing dialysis again Creatinine down to 7.5 from 11 She thinks her baseline creatinine is around 4 to 5 Potassium better 4.9 from 7 She is already on antidepressants Plan: Dialysis per renal PT OT Wound care for that right heel wound Vasc surgery consulted-known to them, recent I&D at [facility] We'll be here over the weekend Has an indwelling pacer/defibrillator for severe cardiomyopathy with history of arrhythmia status post radiofrequency ablation at [facility] FULL CODE VEry weak Vitals Vitals Vital Signs Date Time Temp Pulse Resp B/P (MAP) Pulse Ox O2 Delivery O2 Flow Rate FiO2 01/16/18 09:33 Room Air 01/16/18 07:00 98.0 60 16 147/63 (91) 90 98.0 Physical Exam General: Alert, Oriented X3, Cooperative, No acute distress, Other (very weak and cachectic looking/ill-looking) Heart: Regular rate, Normal S1, No murmurs Lungs: Clear, Other Abdomen: Normal bowel sounds, Soft, No tenderness, No hepatosplenomegaly, No masses Extremities: No clubbing, No cyanosis, No edema, Other (left AV fistula with good bruit and palpable pulses distally) Skin: No rashes, No breakdown, No significant lesion, Other (senile skin turgor , minimal subcutaneous tissue, multiple bruising from being on OAC or antiplatelets) Labs LABS Laboratory Tests Test 01/15/18 13:28 01/15/18 15:50 01/16/18 06:25 01/16/18 06:35 White Blood Count 6.8 x10^3/uL (4.0-11.0) 8.8 x10^3/uL (4.0-11.0) Red Blood Count 3.82 x10^6/uL (3.50-5.40) 3.35 x10^6/uL (3.50-5.40) Hemoglobin 11.2 g/dL (12.0-15.5) 10.0 g/dL (12.0-15.5) Hematocrit 34.2 % (36.0-47.0) 29.6 % (36.0-47.0) Mean Corpuscular Volume 90 fL (79-100) 88 fL (79-100) Mean Corpuscular Hemoglobin 29 pg (25-35) 30 pg (25-35) Mean Corpuscular Hemoglobin Concent 33 g/dL (31-37) 34 g/dL (31-37) Red Cell Distribution Width 16.7 % (11.5-14.5) 16.7 % (11.5-14.5) Platelet Count 234 x10^3/uL (140-400) 174 x10^3/uL (140-400) Neutrophils (%) (Auto) 87 % (31-73) 77 % (31-73) Lymphocytes (%) (Auto) 7 % (24-48) 15 % (24-48) Monocytes (%) (Auto) 5 % (0-9) 7 % (0-9) Eosinophils (%) (Auto) 0 % (0-3) 1 % (0-3) Basophils (%) (Auto) 0 % (0-3) 0 % (0-3) Neutrophils # (Auto) 6.0 x10^3uL (1.8-7.7) 6.8 x10^3uL (1.8-7.7) Lymphocytes # (Auto) 0.5 x10^3/uL (1.0-4.8) 1.3 x10^3/uL (1.0-4.8) Monocytes # (Auto) 0.3 x10^3/uL (0.0-1.1) 0.6 x10^3/uL (0.0-1.1) Eosinophils # (Auto) 0.0 x10^3/uL (0.0-0.7) 0.1 x10^3/uL (0.0-0.7) Basophils # (Auto) 0.0 x10^3/uL (0.0-0.2) 0.0 x10^3/uL (0.0-0.2) Segmented Neutrophils % 91 % (35-66) Lymphocytes % 5 % (24-48) Monocytes % 4 % (0-10) Platelet Estimate Adequate (ADEQUATE) Erythrocyte Sedimentation Rate 14 (0-25) Sodium Level 138 mmol/L (136-145) 139 mmol/L (136-145) Potassium Level 7.4 mmol/L (3.5-5.1) 4.9 mmol/L (3.5-5.1) Chloride Level 102 mmol/L (98-107) 99 mmol/L (98-107) Carbon Dioxide Level 18 mmol/L (21-32) 27 mmol/L (21-32) Anion Gap 18 (6-14) 13 (6-14) Blood Urea Nitrogen 122 mg/dL (7-20) 70 mg/dL (7-20) Creatinine 11.1 mg/dL (0.6-1.0) 7.5 mg/dL (0.6-1.0) Estimated GFR (Cockcroft-Gault) 3.4 5.4 Glucose Level 279 mg/dL (70-99) 110 mg/dL (70-99) Calcium Level 9.4 mg/dL (8.5-10.1) 8.7 mg/dL (8.5-10.1) Total Bilirubin 0.4 mg/dL (0.2-1.0) Direct Bilirubin 0.2 mg/dL (0.0-0.2) Aspartate Amino Transf (AST/SGOT) 31 U/L (15-37) Alanine Aminotransferase (ALT/SGPT) 40 U/L (14-59) Alkaline Phosphatase 147 U/L (46-116) Troponin I Quantitative 0.118 ng/mL (0.000-0.055) Total Protein 6.2 g/dL (6.4-8.2) Albumin 2.8 g/dL (3.4-5.0) Lipase 88 U/L (73-393) Urine Collection Type Unknown Urine Color Yellow Urine Clarity Clear Urine pH 5.5 Urine Specific [place] 1.025 Urine Protein >=300 mg/dL (NEG-TRACE) Urine Glucose (UA) 500 mg/dL (NEG) Urine Ketones (Stick) Negative mg/dL (NEG) Urine Blood Trace (NEG) Urine Nitrite Negative (NEG) Urine Bilirubin Negative (NEG) Urine Urobilinogen Dipstick 0.2 mg/dL (0.2 mg/dL) Urine Leukocyte Esterase Negative (NEG) Urine RBC Occ /HPF (0-2) Urine WBC 5-10 /HPF (0-4) Urine Squamous Epithelial Cells Many /LPF Urine Bacteria Many /HPF (0-FEW) Urine Yeast Present /HPF Review of Systems Review of Systems A 14 point ROS was completed with the following noted as positive: Other systems reviewed and negative. \CONSTITUTIONAL: No fever or chills EYES: No recent changes SKIN: No rash or itching CARDIOVASCULAR: No chest pain, syncope, palpitations, or edema RESPIRATORY: No SOB or cough GASTROINTESTINAL: No nausea, vomiting or abdominal pain NEUROLOGICAL: No headaches or weakness ENDOCRINE: No cold or heat intolerance GENITOURINARY: No urgency or frequency of urination MUSCULOSKELETAL: No back pain or joint pain LYMPHATICS: No enlarged lymph nodes PSYCHIATRIC: No anxiety or depression Assessment and Plan Assessmemt and Plan Problems Medical Problems: (1) End stage renal disease Status: Acute (2) Hyperkalemia Status: Acute Comment Review of Relevant I have reviewed the following items ashley (where applicable) has been applied. Labs Laboratory Tests Test 01/15/18 13:28 01/15/18 15:50 01/16/18 06:25 01/16/18 06:35 White Blood Count 6.8 x10^3/uL (4.0-11.0) 8.8 x10^3/uL (4.0-11.0) Red Blood Count 3.82 x10^6/uL (3.50-5.40) 3.35 x10^6/uL (3.50-5.40) Hemoglobin 11.2 g/dL (12.0-15.5) 10.0 g/dL (12.0-15.5) Hematocrit 34.2 % (36.0-47.0) 29.6 % (36.0-47.0) Mean Corpuscular Volume 90 fL (79-100) 88 fL (79-100) Mean Corpuscular Hemoglobin 29 pg (25-35) 30 pg (25-35) Mean Corpuscular Hemoglobin Concent 33 g/dL (31-37) 34 g/dL (31-37) Red Cell Distribution Width 16.7 % (11.5-14.5) 16.7 % (11.5-14.5) Platelet Count 234 x10^3/uL (140-400) 174 x10^3/uL (140-400) Neutrophils (%) (Auto) 87 % (31-73) 77 % (31-73) Lymphocytes (%) (Auto) 7 % (24-48) 15 % (24-48) Monocytes (%) (Auto) 5 % (0-9) 7 % (0-9) Eosinophils (%) (Auto) 0 % (0-3) 1 % (0-3) Basophils (%) (Auto) 0 % (0-3) 0 % (0-3) Neutrophils # (Auto) 6.0 x10^3uL (1.8-7.7) 6.8 x10^3uL (1.8-7.7) Lymphocytes # (Auto) 0.5 x10^3/uL (1.0-4.8) 1.3 x10^3/uL (1.0-4.8) Monocytes # (Auto) 0.3 x10^3/uL (0.0-1.1) 0.6 x10^3/uL (0.0-1.1) Eosinophils # (Auto) 0.0 x10^3/uL (0.0-0.7) 0.1 x10^3/uL (0.0-0.7) Basophils # (Auto) 0.0 x10^3/uL (0.0-0.2) 0.0 x10^3/uL (0.0-0.2) Segmented Neutrophils % 91 % (35-66) Lymphocytes % 5 % (24-48) Monocytes % 4 % (0-10) Platelet Estimate Adequate (ADEQUATE) Erythrocyte Sedimentation Rate 14 (0-25) Sodium Level 138 mmol/L (136-145) 139 mmol/L (136-145) Potassium Level 7.4 mmol/L (3.5-5.1) 4.9 mmol/L (3.5-5.1) Chloride Level 102 mmol/L (98-107) 99 mmol/L (98-107) Carbon Dioxide Level 18 mmol/L (21-32) 27 mmol/L (21-32) Anion Gap 18 (6-14) 13 (6-14) Blood Urea Nitrogen 122 mg/dL (7-20) 70 mg/dL (7-20) Creatinine 11.1 mg/dL (0.6-1.0) 7.5 mg/dL (0.6-1.0) Estimated GFR (Cockcroft-Gault) 3.4 5.4 Glucose Level 279 mg/dL (70-99) 110 mg/dL (70-99) Calcium Level 9.4 mg/dL (8.5-10.1) 8.7 mg/dL (8.5-10.1) Total Bilirubin 0.4 mg/dL (0.2-1.0) Direct Bilirubin 0.2 mg/dL (0.0-0.2) Aspartate Amino Transf (AST/SGOT) 31 U/L (15-37) Alanine Aminotransferase (ALT/SGPT) 40 U/L (14-59) Alkaline Phosphatase 147 U/L (46-116) Troponin I Quantitative 0.118 ng/mL (0.000-0.055) Total Protein 6.2 g/dL (6.4-8.2) Albumin 2.8 g/dL (3.4-5.0) Lipase 88 U/L (73-393) Urine Collection Type Unknown Urine Color Yellow Urine Clarity Clear Urine pH 5.5 Urine Specific [place] 1.025 Urine Protein >=300 mg/dL (NEG-TRACE) Urine Glucose (UA) 500 mg/dL (NEG) Urine Ketones (Stick) Negative mg/dL (NEG) Urine Blood Trace (NEG) Urine Nitrite Negative (NEG) Urine Bilirubin Negative (NEG) Urine Urobilinogen Dipstick 0.2 mg/dL (0.2 mg/dL) Urine Leukocyte Esterase Negative (NEG) Urine RBC Occ /HPF (0-2) Urine WBC 5-10 /HPF (0-4) Urine Squamous Epithelial Cells Many /LPF Urine Bacteria Many /HPF (0-FEW) Urine Yeast Present /HPF Laboratory Tests Test 01/15/18 13:28 01/15/18 15:50 01/16/18 06:25 01/16/18 06:35 White Blood Count 6.8 x10^3/uL (4.0-11.0) 8.8 x10^3/uL (4.0-11.0) Red Blood Count 3.82 x10^6/uL (3.50-5.40) 3.35 x10^6/uL (3.50-5.40) Hemoglobin 11.2 g/dL (12.0-15.5) 10.0 g/dL (12.0-15.5) Hematocrit 34.2 % (36.0-47.0) 29.6 % (36.0-47.0) Mean Corpuscular Volume 90 fL (79-100) 88 fL (79-100) Mean Corpuscular Hemoglobin 29 pg (25-35) 30 pg (25-35) Mean Corpuscular Hemoglobin Concent 33 g/dL (31-37) 34 g/dL (31-37) Red Cell Distribution Width 16.7 % (11.5-14.5) 16.7 % (11.5-14.5) Platelet Count 234 x10^3/uL (140-400) 174 x10^3/uL (140-400) Neutrophils (%) (Auto) 87 % (31-73) 77 % (31-73) Lymphocytes (%) (Auto) 7 % (24-48) 15 % (24-48) Monocytes (%) (Auto) 5 % (0-9) 7 % (0-9) Eosinophils (%) (Auto) 0 % (0-3) 1 % (0-3) Basophils (%) (Auto) 0 % (0-3) 0 % (0-3) Neutrophils # (Auto) 6.0 x10^3uL (1.8-7.7) 6.8 x10^3uL (1.8-7.7) Lymphocytes # (Auto) 0.5 x10^3/uL (1.0-4.8) 1.3 x10^3/uL (1.0-4.8) Monocytes # (Auto) 0.3 x10^3/uL (0.0-1.1) 0.6 x10^3/uL (0.0-1.1) Eosinophils # (Auto) 0.0 x10^3/uL (0.0-0.7) 0.1 x10^3/uL (0.0-0.7) Basophils # (Auto) 0.0 x10^3/uL (0.0-0.2) 0.0 x10^3/uL (0.0-0.2) Segmented Neutrophils % 91 % (35-66) Lymphocytes % 5 % (24-48) Monocytes % 4 % (0-10) Platelet Estimate Adequate (ADEQUATE) Erythrocyte Sedimentation Rate 14 (0-25) Sodium Level 138 mmol/L (136-145) 139 mmol/L (136-145) Potassium Level 7.4 mmol/L (3.5-5.1) 4.9 mmol/L (3.5-5.1) Chloride Level 102 mmol/L (98-107) 99 mmol/L (98-107) Carbon Dioxide Level 18 mmol/L (21-32) 27 mmol/L (21-32) Anion Gap 18 (6-14) 13 (6-14) Blood Urea Nitrogen 122 mg/dL (7-20) 70 mg/dL (7-20) Creatinine 11.1 mg/dL (0.6-1.0) 7.5 mg/dL (0.6-1.0) Estimated GFR (Cockcroft-Gault) 3.4 5.4 Glucose Level 279 mg/dL (70-99) 110 mg/dL (70-99) Calcium Level 9.4 mg/dL (8.5-10.1) 8.7 mg/dL (8.5-10.1) Total Bilirubin 0.4 mg/dL (0.2-1.0) Direct Bilirubin 0.2 mg/dL (0.0-0.2) Aspartate Amino Transf (AST/SGOT) 31 U/L (15-37) Alanine Aminotransferase (ALT/SGPT) 40 U/L (14-59) Alkaline Phosphatase 147 U/L (46-116) Troponin I Quantitative 0.118 ng/mL (0.000-0.055) Total Protein 6.2 g/dL (6.4-8.2) Albumin 2.8 g/dL (3.4-5.0) Lipase 88 U/L (73-393) Urine Collection Type Unknown Urine Color Yellow Urine Clarity Clear Urine pH 5.5 Urine Specific [place] 1.025 Urine Protein >=300 mg/dL (NEG-TRACE) Urine Glucose (UA) 500 mg/dL (NEG) Urine Ketones (Stick) Negative mg/dL (NEG) Urine Blood Trace (NEG) Urine Nitrite Negative (NEG) Urine Bilirubin Negative (NEG) Urine Urobilinogen Dipstick 0.2 mg/dL (0.2 mg/dL) Urine Leukocyte Esterase Negative (NEG) Urine RBC Occ /HPF (0-2) Urine WBC 5-10 /HPF (0-4) Urine Squamous Epithelial Cells Many /LPF Urine Bacteria Many /HPF (0-FEW) Urine Yeast Present /HPF Medications Current Medications Sodium Bicarbonate (Sodium Bicarb Adult 8.4% Syr) 50 meq 1X ONCE IV Last administered on 01/15/18at 14:17; Start 01/15/18 at 14:15; Stop 01/15/18 at 14 :16; Status DC Calcium Gluconate (Calcium Gluconate) 1,000 mg 1X ONCE IVP Last administered on 01/15/18at 14:17; Start 01/15/18 at 14:15; Stop 01/15/18 at 14:16; Status DC Albuterol Sulfate (Ventolin Neb Soln) 10 mg 1X ONCE CONT NEB Last administered on 01/15/18at 14:15; Start 01/15/18 at 14:15; Stop 01/15/18 at 14 :16; Status DC Insulin Human Regular (HumuLIN R VIAL) 10 unit 1X ONCE IV Last administered on 01/15/18at 14:18; Start 01/15/18 at 14:15; Stop 01/15/18 at 14:16; Status DC Dextrose (Dextrose 50%-Water Syringe) 25 gm 1X ONCE IV Last administered on at 14:19; Start 01/15/18 at 14:15; Stop 01/15/18 at 14:16; Status DC Ondansetron HCl (Zofran) 4 mg PRN Q6HRS PRN IV NAUSEA/VOMITING Last administered on 01/16/18at 05:45; Start 01/15/18 at 14:45 Prochlorperazine Edisylate (Compazine) 10 mg PRN Q6HRS PRN IV NAUSEA/VOMITING; Start 01/15/18 at 14:45 Prochlorperazine (Compazine) 25 mg PRN Q12HR PRN OR NAUSEA/VOMITING; Start at 14:45 Calcium Carbonate/ Glycine (Tums) 500 mg PRN Q3HRS PRN PO UPSET STOMACH; Start 01/15/18 at 14:45 Acetaminophen (Tylenol) 650 mg PRN Q6HRS PRN PO Headaches, Temp > 101.5F; Start 01/15/18 at 14:45 Magnesium Hydroxide (Milk Of Magnesia) 2,400 mg PRN Q12HR PRN PO CONSTIPATION; Start 01/15/18 at 14:45 Bisacodyl (Dulcolax Supp) 10 mg PRN DAILY PRN OR CONSTIPATION; Start 01/15/18 at 14:45 Enoxaparin Sodium (Lovenox 40mg Syringe) 40 mg Q24H SQ ; Start 01/15/18 at 15: 00; Status UNV Fentanyl Citrate (Fentanyl 2ml Vial) 50 mcg PRN Q2HR PRN IV PAIN Last administered on 01/16/18at 09:03; Start 01/15/18 at 14:45 Tramadol HCl (Ultram) 50 mg PRN Q6HRS PRN PO MILD PAIN; Start 01/15/18 at 14: 45 Sodium Polystyrene Sulfonate (Kayexalate) 15 gm 1X ONCE PO ; Start 01/15/18 at 14:45; Stop 01/15/18 at 15:05; Status DC Ondansetron HCl (Zofran) 4 mg PRN Q8HRS PRN IV NAUSEA/VOMITING; Start at 14:45; Stop 01/16/18 at 14:44 Alprazolam (Xanax) 0.25 mg PRN DAILY PRN PO ANXIETY / AGITATION; Start at 14:45 Aspirin (Ecotrin) 81 mg QHS PO Last administered on 01/15/18at 22:36; Start at 21:00 Atorvastatin Calcium (Lipitor) 10 mg QHS PO Last administered on 01/15/18at 22: 36; Start 01/15/18 at 21:00 Carvedilol (Coreg) 3.125 mg BIDWMEALS PO Last administered on 01/15/18at 22:35 ; Start 01/15/18 at 17:00 Cinacalcet (Sensipar) 30 mg QHS PO Last administered on 01/15/18at 22:36; Start 01/15/18 at 21:00 Clopidogrel Bisulfate (Plavix) 75 mg QHS PO Last administered on 01/15/18at 22: 36; Start 01/15/18 at 21:00 Fentanyl (Duragesic 25mcg/ Hr Patch) 1 patch Q3DAYS TD Last administered on at 22:30; Start 01/15/18 at 15:00 Acetaminophen/ Hydrocodone Bitart (Lortab 5/325) 1 tab PRN QID PRN PO MODERATE PAIN Last administered on 01/16/18at 05:46; Start 01/15/18 at 14:45 Sertraline HCl (Zoloft) 50 mg QHS PO Last administered on 01/15/18at 22:36; Start 01/15/18 at 21:00 Bacitracin 1 patricio BID TP ; Start 01/15/18 at 21:00 Calcium Acetate (Phoslo) 1,334 mg TIDWMEALS PO ; Start 01/15/18 at 17:00 Non-Formulary Medication (Cranberry Conc/ Ascorbic Acid (Cranberry Plus Vitamin C Sftgl)) 1 each QHS PO ; Start 01/15/18 at 21:00; Stop 01/15/18 at 21:00; Status DC Gabapentin (Neurontin) 300 mg QHS PO Last administered on 01/15/18at 22:36; Start 01/15/18 at 21:00 Vitamin B Complex/ Vitamin C (Alayna-Oneil) 1 tab DAILY PO ; Start 01/16/18 at 09: 00 Diphenhydramine HCl (Benadryl) 25 mg PRN Q6HRS PRN PO ITCHING; Start 01/15/18 at 14:45 Piperacillin Sod/ Tazobactam Sod (Zosyn Per Pharmacy) 1 each PRN DAILY PRN MC SEE COMMENTS; Start 01/15/18 at 15:00 Megestrol Acetate (Megace) 20 mg DAILY PO Last administered on 01/15/18at 22:35 ; Start 01/15/18 at 17:00 Silver Sulfadiazine (Silvadene) 1 patricio 1X ONCE TP ; Start 01/15/18 at 15:00; Stop 01/15/18 at 15:13; Status DC Labetalol HCl (Normodyne Iv Push) 10 mg PRN Q2HR PRN IVP HYPERTENSION, SEE COMMENTS; Start 01/15/18 at 15:00 Sodium Chloride 1,000 ml @ 1,000 mls/hr Q1H PRN IV hypotension; Start at 15:32; Stop 01/15/18 at 21:31; Status DC Albumin Human 200 ml @ 200 mls/hr 1X PRN PRN IV Hypotension; Start 01/15/18 at 15:45; Stop 01/15/18 at 21:44; Status DC Sodium Chloride 1,000 ml @ 400 mls/hr Q2H30M PRN IV PATENCY; Start 01/15/18 at 15:32; Stop 01/16/18 at 03:31; Status DC Info (PHARMACY MONITORING -- do not chart) 1 each PRN DAILY PRN MC SEE COMMENTS ; Start 01/15/18 at 15:45; Stop 01/16/18 at 07:35; Status DC Piperacillin Sod/ Tazobactam Sod 2.25 gm/Sodium Chloride 50 ml @ 100 mls/hr Q8HRS IV Last administered on 01/16/18at 05:54; Start 01/15/18 at 22:00 Heparin Sodium (Porcine) (Heparin Sodium) 5,000 unit Q8HRS SQ ; Start 01/15/18 at 22:00 Piperacillin Sod/ Tazobactam Sod 2.25 gm/Sodium Chloride 50 ml @ 100 mls/hr 1X ONCE IV ; Start 01/15/18 at 17:00; Stop 01/15/18 at 17:29; Status DC Sodium Chloride 1,000 ml @ 1,000 mls/hr Q1H PRN IV hypotension; Start at 07:23; Stop 01/16/18 at 13:22 Albumin Human 200 ml @ 200 mls/hr 1X PRN PRN IV Hypotension; Start 01/16/18 at 07:30; Stop 01/16/18 at 13:29 Sodium Chloride (Normal Saline Flush) 10 ml 1X PRN PRN IV AP catheter pack; Start 01/16/18 at 07:30; Stop 01/17/18 at 07:29 Sodium Chloride (Normal Saline Flush) 10 ml 1X PRN PRN IV NURSE INFECTION CONTROL catheter pack; Start 01/16/18 at 07:30; Stop 01/17/18 at 07:29 Sodium Chloride 1,000 ml @ 400 mls/hr Q2H30M PRN IV PATENCY; Start 01/16/18 at 07:23; Stop 01/16/18 at 19:22 Info (PHARMACY MONITORING -- do not chart) 1 each PRN DAILY PRN MC SEE COMMENTS ; Start 01/16/18 at 07:30 Info (PHARMACY MONITORING -- do not chart) 1 each PRN DAILY PRN MC SEE COMMENTS ; Start 01/16/18 at 07:30; Status UNV Lidocaine HCl (Xylocaine-Mpf 1% 2ml Vial) 2 ml 1X ONCE INJ ; Start 01/16/18 at 07:30; Stop 01/16/18 at 07:35; Status DC Lactobacillus Rhamnosus (Culturelle) 1 cap BID PO ; Start 01/16/18 at 21:00 Active Scripts Active Bacitracin 28.4 Gm Oint...g. 1 Patricio TP BID 14 Days FENTANYL 25mcg/hr (Fentanyl) 1 Each Patch.td72 1 Patch TD Q3DAYS 30 Days Hydrocodone-Apap 5-325 (Hydrocodone Bit/Acetaminophen) 1 Each Tablet 1 Tab PO PRN Q4-6HRS PRN Atorvastatin Calcium 10 Mg Tablet 10 Mg PO QHS 30 Days Carvedilol 3.125 Mg Tablet 3.125 Mg PO BIDWMEALS Reported Sertraline Hcl 50 Mg Tablet 50 Mg PO QHS Sensipar (Cinacalcet Hcl) 30 Mg Tablet 1 Tab PO QHS Alayna-Oneil Rx Tablet (Vit B Cmplx 3/Fa/Vit C/Biotin) 1 Each Tablet 1 Each PO DAILY Cranberry Plus Vitamin C Sftgl (Cranberry Conc/Ascorbic Acid) 1 Each Capsule 1 Each PO QHS Coricidin Hbp Tablet (Acetaminophen/Chlorpheniramine) 1 Each Tablet 1 Each PO PRN Alprazolam 0.25 Mg Tablet 1 Tab PO DAILY PRN Plavix (Clopidogrel Bisulfate) 75 Mg Tablet 75 Mg PO QHS Calcium Acetate 667 Mg Tablet 2 Tab PO TIDWMEALS Tylenol Extra Strength (Acetaminophen) 500 Mg Tablet 500 Mg PO PRN Q12HRS PRN Gabapentin 300 Mg Capsule 300 Mg PO QHS Benadryl Allergy (Diphenhydramine Hcl) 25 Mg Tablet 25 Mg PO PRN not given in the hospital Aspir 81 (Aspirin) 81 Mg Tablet.dr 81 Mg PO QHS Vitals/I & O Vital Sign - Last 24 Hours 10/26/01/15/18 01/15/18 01/15/18 11:45 11:52 12:15 12:45 Temp 98.1 98.1 Pulse 72 70 70 71 Resp 12 14 11 12 B/P (MAP) 192/93 (126) Pulse Ox 97 98 98 97 O2 Delivery Room Air 01/15/18 01/15/18 01/15/18 01/15/18 13:10 13:30 14:00 14:30 Pulse 70 71 72 77 Resp 12 13 13 10 Pulse Ox 97 97 95 96 01/15/18 01/15/18 01/15/18 01/15/18 15:30 15:34 20:20 22:30 Pulse 72 Resp 10 16 Pulse Ox 100 97 O2 Delivery Room Air Room Air Room Air 01/15/18 01/15/18 01/16/18 01/16/18 22:35 23:00 02:30 03:00 Temp 97.9 98.2 97.9 98.2 Pulse 73 77 64 Resp 18 17 B/P (MAP) 171/81 117/76 (90) 152/68 (96) Pulse Ox 97 98 O2 Delivery Room Air Room Air Room Air 01/16/18 01/16/18 01/16/18 01/16/18 05:46 06:46 07:00 09:03 Temp 98.0 98.0 Pulse 60 Resp 16 B/P (MAP) 147/63 (91) Pulse Ox 90 O2 Delivery Room Air Room Air Room Air Room Air 01/16/18 09:33 O2 Delivery Room Air Intake and Output 01/15/18 01/15/18 01/16/18 15:00 23:00 07:00 Output Total 0 ml Balance 0 ml MICHELLE DOWD MD Jan 16, 2018 11:34
--- NOTE | 2018-01-16 15:15 | PDOC ---
Provider Note Provider Note (please see full dictation) 67 yo female with ESRD on dialysis and a chronic right medial lower leg ulcer. She was recently debrided by Dr. Darling at [facility]. Would continue local wound care. Will review previous [facility] and office records. At present, would continue daily dressing changes with either mupirocin or silvadene. She should keep previously scheduled follow up with Dr. Darling. RONALD CASSIDY MD Jan 16, 2018 15:15
[2018-01-16 15:58] VITALS: BP 157/63
[2018-01-16 19:00] VITALS: BP 140/50
[2018-01-16] MEDS: GABAPENTIN 300 MG CAPSULE. PO SCH (20:24)
[2018-01-16] MEDS: CINACALCET HCL 30 MG TABLET PO SCH (20:24)
[2018-01-16] MEDS: traMADol 50 MG TABLET PO PRN (20:24)
[2018-01-16] MEDS: CLOPIDOGREL BISULFATE 75 MG TABLET PO SCH (20:24)
[2018-01-16] MEDS: ATORVASTATIN CALCIUM 10 MG TABLET. PO SCH (20:24)
[2018-01-16] MEDS: LACTOBACILLUS RHAMNOSUS GG 1 CAPSULE. PO SCH (20:24)
[2018-01-16] MEDS: SERTRALINE 50 MG TABLET. PO SCH (20:24)
[2018-01-16] MEDS: ASPIRIN ENTERIC COATED 81 MG TABLET.DR. PO SCH (20:24)
[2018-01-16 22:35] VITALS: BP 161/63
[2018-01-17 03:00] VITALS: BP 148/46
[2018-01-17 03:50] LABS: BASO % 0 % (0-3); EOS # 0.2 x10^3/uL (0.0-0.7); EOS % 2 % (0-3); HEMATOCRIT 30.2 % (36.0-47.0); HEMOGLOBIN 10.2 g/dL (12.0-15.5); LYMPH # 1.4 x10^3/uL (1.0-4.8); LYMPH % 17 % (24-48); MEAN CORPUSCULAR HEMOGLOBIN 30 pg (25-35); MEAN CORPUSCULAR HGB CONC 34 g/dL (31-37); MEAN CORPUSCULAR VOLUME 89 fL (79-100); MONO # 0.7 x10^3/uL (0.0-1.1); MONO % 8 % (0-9); NEUT # 6.3 x10^3uL (1.8-7.7); NEUT % 73 % (31-73); PLATELET COUNT 160 x10^3/uL (140-400); RED CELL DISTRIBUTION WIDTH 16.6 % (11.5-14.5); WHITE BLOOD COUNT 8.7 x10^3/uL (4.0-11.0)
[2018-01-17 04:10] LABS: CALCIUM 7.7 mg/dL (8.5-10.1); CREATININE 4.9 mg/dL (0.6-1.0); GFR 8.9; POTASSIUM 3.9 mmol/L (3.5-5.1)
--- NOTE | 2018-01-17 04:54 | CONS ---
DATE OF CONSULTATION: 01/16/2018 CHIEF COMPLAINT: Medial lower leg ulcer. HISTORY OF PRESENT ILLNESS: The patient is a 67-year-old female with chronic kidney disease, on hemodialysis, who was recently admitted after a fall. She states that she tripped and landed on her tailbone. She has a long history of lower extremity ulcer. She was recently debrided at [facility] by Dr. Darling a few weeks ago. She was in [facility], but more recently transitioned back home. She is on hemodialysis via a left arm arteriovenous fistula. PAST MEDICAL HISTORY: 1. Chronic kidney disease, on hemodialysis. 2. Coronary artery disease. 3. Hypertension. 4. Valvular heart disease. 5. COPD. 6. Diabetes. 7. Hyperparathyroidism. PAST SURGICAL HISTORY: 1. Cholecystectomy. 2. Tonsillectomy. 3. Hysterectomy. 4. Recent cardiac ablation. 5. Left arm arteriovenous fistula construction. 6. Right leg debridement. FAMILY HISTORY: Significant for diabetes and hypertension in her close relatives. SOCIAL HISTORY: She denies any smoking or alcohol use. CURRENT MEDICATIONS: Please see detailed medication administration record. This was reviewed. ALLERGIES: ADHESIVE TAPE, CIPRO, MORPHINE, and OXYCODONE. REVIEW OF SYSTEMS: She has some generalized weakness. She denies any fevers or chills. She denies any chest pain or shortness of breath at this time. No nausea, vomiting, diarrhea, constipation, hematochezia, melena or other GI symptoms. She had some generalized weakness that led to her recent fall. She notes poor appetite. PHYSICAL EXAMINATION: GENERAL: This is a chronically ill-appearing, thin female in no acute distress. VITAL SIGNS: Temperature 98.0, pulse 60, blood pressure 147/63, respirations 16. NECK: Supple, no lymphadenopathy. CARDIOVASCULAR: Regular rhythm. ABDOMEN: Soft, nontender, nondistended. No palpable masses. EXTREMITIES: She has a palpable thrill in her left arm arteriovenous fistula. There is a dressing over the majority of the fistula. She has no areas of skin breakdown on either hand. She has a cylindrical deep ulcer on the medial aspect of the right distal lower leg. This extends down to the muscle. There is minimal granulation tissue. No surrounding erythema at this time. LABORATORY DATA: Significant for white blood cells 8.8, hemoglobin 10.0, platelet count of 174. Sodium 139, potassium 4.9, BUN 70, creatinine 7.5. Glucose 110. IMPRESSION: 1. Right medial lower leg ulcer. 2. Chronic kidney disease, on hemodialysis. RECOMMENDATION: 1. Continued local wound care. 2. We will review recent imaging records from [facility], as well as office records from Dr. Darling. 3. She is to follow up with Dr. Darling as previously scheduled. 4. We will need to find other recommendations if anything from imaging at [facility] would recommend any intervention. RONALD CASSIDY MD DR: NATHALIE/williams JOB#: [id number] / [id number]
[2018-01-17] MEDS: HEPARIN for SUB-Q USE 5,000 UNIT/ML VIAL. SQ SCH ×3 (05:15→21:35)
[2018-01-17] MEDS: PIPERACILLIN/TAZOBACTAM 2.25 GM in IV NORMAL SALINE 50ML 50 ML IV SCH ×3 (06:02→21:31)
[2018-01-17] MEDS: HYDROcodone/APAP 5/325MG 1 TAB TABLET PO PRN (06:06)
[2018-01-17 07:00] VITALS: BP 149/54
[2018-01-17] MEDS: MEGESTROL 20 MG TABLET. PO SCH (08:22)
[2018-01-17] MEDS: traMADol 50 MG TABLET PO PRN (08:22)
[2018-01-17] MEDS: LACTOBACILLUS RHAMNOSUS GG 1 CAPSULE. PO SCH ×2 (08:22→21:30)
[2018-01-17] MEDS: FOLIC/VIT B COMP W-C (RENAL) TABLET. PO SCH (08:23)
[2018-01-17] MEDS: CALCIUM ACETATE 667 MG CAPSULE PO SCH ×4 (08:23→18:12)
[2018-01-17] MEDS: CARVEDILOL 3.125 MG TABLET. PO SCH ×2 (08:23→18:12)
[2018-01-17] MEDS: BACITRACIN TOPICAL OINT 14GM TUBE. TP SCH ×2 (09:00→21:31)
[2018-01-17] MEDS: ONDANSETRON PF 4 MG/2 ML VIAL. IV PRN (09:38)
--- NOTE | 2018-01-17 10:09 | PDOC ---
SURGICAL PROGRESS NOTE Subjective She is more comfortable. She still has significant bottom pain. Denies any new leg pain. Vital Signs Vital Signs Date Time Temp Pulse Resp B/P (MAP) Pulse Ox O2 Delivery O2 Flow Rate FiO2 01/17/18 09:34 Room Air 01/17/18 08:23 58 149/54 01/17/18 08:22 2.0 01/17/18 07:00 98.6 12 91 98.6 I&O Intake and Output 01/17/18 07:00 Intake Total 440 ml Output Total 400 ml Balance 40 ml Intake Oral 440 ml Output Urine Total 400 ml General: No acute distress Lungs: Normal air movement Heart: Regular rate Abdomen: Soft, No tenderness Extremities: Other (right lower leg wound as described yesterday, dressing intact, left arm AVF with thrill) Problem List Problems Medical Problems: (1) End stage renal disease Status: Acute (2) Hyperkalemia Status: Acute Assessment/Plan Severe peripheral artery disease with right leg wound ESRD Recent fall She will need a Wound Vac replaced to the medial right lower leg wound. Will need to go home or to next facility with a I Wound Vac as well. She will [facility] (she requests to transition to [facility] wound care ) as well as an appt with Dr. Darling in about 3-4 weeks. She has known peripheral artery disease, but is not a good candidate for right leg bypass at this time due to previous complications and overall poor healing potential. She had severe problems with healing after last interventions. RONALD CASSIDY MD Jan 17, 2018 10:09
[2018-01-17 11:00] VITALS: BP 127/48
--- NOTE | 2018-01-17 11:10 | PDOC ---
PROGRESS NOTES Chief Complaint Chief Complaint 1. HYPERKALEMIA, critical, ESRD on HD MWF - missed three weeks worth sec to multiple factors namely, noncompliance, generalized weakness, difficulty ambulation, and all likelihood depression. 2. chronic diastolic CHF: 3. COPD with continued tobaccoism 4. Left leg cellulitis recent I and D by vasluis leos at [facility] - NEED FOR WOUND VAC NOW 5. Hx of VT/cardiac arrest: s/p VT ablation 11/2016. 6. CAD: multiple stents in 2016 7. AICD insitu: 8. Known PAD: 9. DM2/HLP 10. HTN: mild labile History of Present Illness History of Present Illness SHe got 2 sessions of dialysis in 2 consecutive days after missing 3 weeks of dialysis just because of depression and very weak at home Recently discharged from rehabilitation, takes care of her at home Long chronic history of heart problems including arrhythmia, short cardiac arrest, radioablation for an arrhythmia at [facility] has been on HD maybe 3 mos significant amount of weight loss since i last saw her PO intake can be poor Now planned for wound VAC on that heel wound by vascular surgery-recent I&D at [facility] by Dr Carver Plan: Social work screen for LTAC Will need a wound VAC hence I have consulted [facility] wound care Dialysis per renal-her days are TTHSAT High fall risk, overall prognosis is poor given multiple health problems, depression, noncompliance seemingly from depression secondary to her medical issues Already on antidepressants Vitals Vitals Vital Signs Date Time Temp Pulse Resp B/P (MAP) Pulse Ox O2 Delivery O2 Flow Rate FiO2 01/17/18 09:34 Room Air 01/17/18 08:23 58 149/54 01/17/18 08:22 2.0 01/17/18 07:00 98.6 12 91 98.6 Physical Exam General: Cooperative, No acute distress Heart: Regular rate, Normal S1, Normal S2 Lungs: Clear, Other Abdomen: Normal bowel sounds, Soft, No tenderness Extremities: No clubbing, No cyanosis, Other (right lower leg wound as described yesterday, dressing intact, left arm AVF with thrill) Skin: No significant lesion, Other (senile skin turgor, minimal subcutaneous tissue, multiple bruising from being on OAC or antiplatelets) Labs LABS Laboratory Tests Test 01/17/18 03:05 White Blood Count 8.7 x10^3/uL (4.0-11.0) Red Blood Count 3.40 x10^6/uL (3.50-5.40) Hemoglobin 10.2 g/dL (12.0-15.5) Hematocrit 30.2 % (36.0-47.0) Mean Corpuscular Volume 89 fL (79-100) Mean Corpuscular Hemoglobin 30 pg (25-35) Mean Corpuscular Hemoglobin Concent 34 g/dL (31-37) Red Cell Distribution Width 16.6 % (11.5-14.5) Platelet Count 160 x10^3/uL (140-400) Neutrophils (%) (Auto) 73 % (31-73) Lymphocytes (%) (Auto) 17 % (24-48) Monocytes (%) (Auto) 8 % (0-9) Eosinophils (%) (Auto) 2 % (0-3) Basophils (%) (Auto) 0 % (0-3) Neutrophils # (Auto) 6.3 x10^3uL (1.8-7.7) Lymphocytes # (Auto) 1.4 x10^3/uL (1.0-4.8) Monocytes # (Auto) 0.7 x10^3/uL (0.0-1.1) Eosinophils # (Auto) 0.2 x10^3/uL (0.0-0.7) Basophils # (Auto) 0.0 x10^3/uL (0.0-0.2) Sodium Level 141 mmol/L (136-145) Potassium Level 3.9 mmol/L (3.5-5.1) Chloride Level 101 mmol/L (98-107) Carbon Dioxide Level 31 mmol/L (21-32) Anion Gap 9 (6-14) Blood Urea Nitrogen 36 mg/dL (7-20) Creatinine 4.9 mg/dL (0.6-1.0) Estimated GFR (Cockcroft-Gault) 8.9 Glucose Level 84 mg/dL (70-99) Calcium Level 7.7 mg/dL (8.5-10.1) Review of Systems Review of Systems Pos for Weak, no increase in SOA, poor appetite, depressed, the rest of ROS 14 point negative Assessment and Plan Assessmemt and Plan Problems Medical Problems: (1) End stage renal disease Status: Acute (2) Hyperkalemia Status: Acute Comment Review of Relevant I have reviewed the following items ashley (where applicable) has been applied. Labs Laboratory Tests Test 01/15/18 13:28 01/15/18 15:50 01/16/18 06:25 01/16/18 06:35 White Blood Count 6.8 x10^3/uL (4.0-11.0) 8.8 x10^3/uL (4.0-11.0) Red Blood Count 3.82 x10^6/uL (3.50-5.40) 3.35 x10^6/uL (3.50-5.40) Hemoglobin 11.2 g/dL (12.0-15.5) 10.0 g/dL (12.0-15.5) Hematocrit 34.2 % (36.0-47.0) 29.6 % (36.0-47.0) Mean Corpuscular Volume 90 fL (79-100) 88 fL (79-100) Mean Corpuscular Hemoglobin 29 pg (25-35) 30 pg (25-35) Mean Corpuscular Hemoglobin Concent 33 g/dL (31-37) 34 g/dL (31-37) Red Cell Distribution Width 16.7 % (11.5-14.5) 16.7 % (11.5-14.5) Platelet Count 234 x10^3/uL (140-400) 174 x10^3/uL (140-400) Neutrophils (%) (Auto) 87 % (31-73) 77 % (31-73) Lymphocytes (%) (Auto) 7 % (24-48) 15 % (24-48) Monocytes (%) (Auto) 5 % (0-9) 7 % (0-9) Eosinophils (%) (Auto) 0 % (0-3) 1 % (0-3) Basophils (%) (Auto) 0 % (0-3) 0 % (0-3) Neutrophils # (Auto) 6.0 x10^3uL (1.8-7.7) 6.8 x10^3uL (1.8-7.7) Lymphocytes # (Auto) 0.5 x10^3/uL (1.0-4.8) 1.3 x10^3/uL (1.0-4.8) Monocytes # (Auto) 0.3 x10^3/uL (0.0-1.1) 0.6 x10^3/uL (0.0-1.1) Eosinophils # (Auto) 0.0 x10^3/uL (0.0-0.7) 0.1 x10^3/uL (0.0-0.7) Basophils # (Auto) 0.0 x10^3/uL (0.0-0.2) 0.0 x10^3/uL (0.0-0.2) Segmented Neutrophils % 91 % (35-66) Lymphocytes % 5 % (24-48) Monocytes % 4 % (0-10) Platelet Estimate Adequate (ADEQUATE) Erythrocyte Sedimentation Rate 14 (0-25) Sodium Level 138 mmol/L (136-145) 139 mmol/L (136-145) Potassium Level 7.4 mmol/L (3.5-5.1) 4.9 mmol/L (3.5-5.1) Chloride Level 102 mmol/L (98-107) 99 mmol/L (98-107) Carbon Dioxide Level 18 mmol/L (21-32) 27 mmol/L (21-32) Anion Gap 18 (6-14) 13 (6-14) Blood Urea Nitrogen 122 mg/dL (7-20) 70 mg/dL (7-20) Creatinine 11.1 mg/dL (0.6-1.0) 7.5 mg/dL (0.6-1.0) Estimated GFR (Cockcroft-Gault) 3.4 5.4 Glucose Level 279 mg/dL (70-99) 110 mg/dL (70-99) Calcium Level 9.4 mg/dL (8.5-10.1) 8.7 mg/dL (8.5-10.1) Total Bilirubin 0.4 mg/dL (0.2-1.0) Direct Bilirubin 0.2 mg/dL (0.0-0.2) Aspartate Amino Transf (AST/SGOT) 31 U/L (15-37) Alanine Aminotransferase (ALT/SGPT) 40 U/L (14-59) Alkaline Phosphatase 147 U/L (46-116) Troponin I Quantitative 0.118 ng/mL (0.000-0.055) Total Protein 6.2 g/dL (6.4-8.2) Albumin 2.8 g/dL (3.4-5.0) Lipase 88 U/L (73-393) Urine Collection Type Unknown Urine Color Yellow Urine Clarity Clear Urine pH 5.5 Urine Specific [place] 1.025 Urine Protein >=300 mg/dL (NEG-TRACE) Urine Glucose (UA) 500 mg/dL (NEG) Urine Ketones (Stick) Negative mg/dL (NEG) Urine Blood Trace (NEG) Urine Nitrite Negative (NEG) Urine Bilirubin Negative (NEG) Urine Urobilinogen Dipstick 0.2 mg/dL (0.2 mg/dL) Urine Leukocyte Esterase Negative (NEG) Urine RBC Occ /HPF (0-2) Urine WBC 5-10 /HPF (0-4) Urine Squamous Epithelial Cells Many /LPF Urine Bacteria Many /HPF (0-FEW) Urine Yeast Present /HPF Test 01/17/18 03:05 White Blood Count 8.7 x10^3/uL (4.0-11.0) Red Blood Count 3.40 x10^6/uL (3.50-5.40) Hemoglobin 10.2 g/dL (12.0-15.5) Hematocrit 30.2 % (36.0-47.0) Mean Corpuscular Volume 89 fL (79-100) Mean Corpuscular Hemoglobin 30 pg (25-35) Mean Corpuscular Hemoglobin Concent 34 g/dL (31-37) Red Cell Distribution Width 16.6 % (11.5-14.5) Platelet Count 160 x10^3/uL (140-400) Neutrophils (%) (Auto) 73 % (31-73) Lymphocytes (%) (Auto) 17 % (24-48) Monocytes (%) (Auto) 8 % (0-9) Eosinophils (%) (Auto) 2 % (0-3) Basophils (%) (Auto) 0 % (0-3) Neutrophils # (Auto) 6.3 x10^3uL (1.8-7.7) Lymphocytes # (Auto) 1.4 x10^3/uL (1.0-4.8) Monocytes # (Auto) 0.7 x10^3/uL (0.0-1.1) Eosinophils # (Auto) 0.2 x10^3/uL (0.0-0.7) Basophils # (Auto) 0.0 x10^3/uL (0.0-0.2) Sodium Level 141 mmol/L (136-145) Potassium Level 3.9 mmol/L (3.5-5.1) Chloride Level 101 mmol/L (98-107) Carbon Dioxide Level 31 mmol/L (21-32) Anion Gap 9 (6-14) Blood Urea Nitrogen 36 mg/dL (7-20) Creatinine 4.9 mg/dL (0.6-1.0) Estimated GFR (Cockcroft-Gault) 8.9 Glucose Level 84 mg/dL (70-99) Calcium Level 7.7 mg/dL (8.5-10.1) Laboratory Tests Test 01/17/18 03:05 White Blood Count 8.7 x10^3/uL (4.0-11.0) Red Blood Count 3.40 x10^6/uL (3.50-5.40) Hemoglobin 10.2 g/dL (12.0-15.5) Hematocrit 30.2 % (36.0-47.0) Mean Corpuscular Volume 89 fL (79-100) Mean Corpuscular Hemoglobin 30 pg (25-35) Mean Corpuscular Hemoglobin Concent 34 g/dL (31-37) Red Cell Distribution Width 16.6 % (11.5-14.5) Platelet Count 160 x10^3/uL (140-400) Neutrophils (%) (Auto) 73 % (31-73) Lymphocytes (%) (Auto) 17 % (24-48) Monocytes (%) (Auto) 8 % (0-9) Eosinophils (%) (Auto) 2 % (0-3) Basophils (%) (Auto) 0 % (0-3) Neutrophils # (Auto) 6.3 x10^3uL (1.8-7.7) Lymphocytes # (Auto) 1.4 x10^3/uL (1.0-4.8) Monocytes # (Auto) 0.7 x10^3/uL (0.0-1.1) Eosinophils # (Auto) 0.2 x10^3/uL (0.0-0.7) Basophils # (Auto) 0.0 x10^3/uL (0.0-0.2) Sodium Level 141 mmol/L (136-145) Potassium Level 3.9 mmol/L (3.5-5.1) Chloride Level 101 mmol/L (98-107) Carbon Dioxide Level 31 mmol/L (21-32) Anion Gap 9 (6-14) Blood Urea Nitrogen 36 mg/dL (7-20) Creatinine 4.9 mg/dL (0.6-1.0) Estimated GFR (Cockcroft-Gault) 8.9 Glucose Level 84 mg/dL (70-99) Calcium Level 7.7 mg/dL (8.5-10.1) Medications Current Medications Sodium Bicarbonate (Sodium Bicarb Adult 8.4% Syr) 50 meq 1X ONCE IV Last administered on 01/15/18at 14:17; Start 01/15/18 at 14:15; Stop 01/15/18 at 14 :16; Status DC Calcium Gluconate (Calcium Gluconate) 1,000 mg 1X ONCE IVP Last administered on 01/15/18at 14:17; Start 01/15/18 at 14:15; Stop 01/15/18 at 14:16; Status DC Albuterol Sulfate (Ventolin Neb Soln) 10 mg 1X ONCE CONT NEB Last administered on 01/15/18at 14:15; Start 01/15/18 at 14:15; Stop 01/15/18 at 14 :16; Status DC Insulin Human Regular (HumuLIN R VIAL) 10 unit 1X ONCE IV Last administered on 01/15/18at 14:18; Start 01/15/18 at 14:15; Stop 01/15/18 at 14:16; Status DC Dextrose (Dextrose 50%-Water Syringe) 25 gm 1X ONCE IV Last administered on at 14:19; Start 01/15/18 at 14:15; Stop 01/15/18 at 14:16; Status DC Ondansetron HCl (Zofran) 4 mg PRN Q6HRS PRN IV NAUSEA/VOMITING Last administered on 01/16/18at 05:45; Start 01/15/18 at 14:45 Prochlorperazine Edisylate (Compazine) 10 mg PRN Q6HRS PRN IV NAUSEA/VOMITING; Start 01/15/18 at 14:45 Prochlorperazine (Compazine) 25 mg PRN Q12HR PRN DC NAUSEA/VOMITING; Start at 14:45 Calcium Carbonate/ Glycine (Tums) 500 mg PRN Q3HRS PRN PO UPSET STOMACH; Start 01/15/18 at 14:45 Acetaminophen (Tylenol) 650 mg PRN Q6HRS PRN PO Headaches, Temp > 101.5F; Start 01/15/18 at 14:45 Magnesium Hydroxide (Milk Of Magnesia) 2,400 mg PRN Q12HR PRN PO CONSTIPATION; Start 01/15/18 at 14:45 Bisacodyl (Dulcolax Supp) 10 mg PRN DAILY PRN DC CONSTIPATION; Start 01/15/18 at 14:45 Enoxaparin Sodium (Lovenox 40mg Syringe) 40 mg Q24H SQ ; Start 01/15/18 at 15: 00; Status UNV Fentanyl Citrate (Fentanyl 2ml Vial) 50 mcg PRN Q2HR PRN IV PAIN Last administered on 01/16/18at 09:03; Start 01/15/18 at 14:45 Tramadol HCl (Ultram) 50 mg PRN Q6HRS PRN PO MILD PAIN Last administered on at 08:22; Start 01/15/18 at 14:45 Sodium Polystyrene Sulfonate (Kayexalate) 15 gm 1X ONCE PO ; Start 01/15/18 at 14:45; Stop 01/15/18 at 15:05; Status DC Ondansetron HCl (Zofran) 4 mg PRN Q8HRS PRN IV NAUSEA/VOMITING; Start at 14:45; Stop 01/16/18 at 14:44; Status DC Alprazolam (Xanax) 0.25 mg PRN DAILY PRN PO ANXIETY / AGITATION; Start at 14:45 Aspirin (Ecotrin) 81 mg QHS PO Last administered on 01/16/18at 20:24; Start at 21:00 Atorvastatin Calcium (Lipitor) 10 mg QHS PO Last administered on 01/16/18at 20: 24; Start 01/15/18 at 21:00 Carvedilol (Coreg) 3.125 mg BIDWMEALS PO Last administered on 01/17/18at 08:23 ; Start 01/15/18 at 17:00 Cinacalcet (Sensipar) 30 mg QHS PO Last administered on 01/16/18 20:24; Start 01/15/18 at 21:00 Clopidogrel Bisulfate (Plavix) 75 mg QHS PO Last administered on 01/16/18 20: 24; Start 01/15/18 at 21:00 Fentanyl (Duragesic 25mcg/ Hr Patch) 1 patch Q3DAYS TD Last administered on at 22:30; Start 01/15/18 at 15:00 Acetaminophen/ Hydrocodone Bitart (Lortab 5/325) 1 tab PRN QID PRN PO MODERATE PAIN Last administered on 01/17/18 06:06; Start 01/15/18 at 14:45 Sertraline HCl (Zoloft) 50 mg QHS PO Last administered on 01/16/18 20:24; Start 01/15/18 at 21:00 Bacitracin 1 patricio BID TP Last administered on 01/17/18at 09:00; Start 01/15/18 at 21:00 Calcium Acetate (Phoslo) 1,334 mg TIDWMEALS PO Last administered on 01/17/18at 08:23; Start 01/15/18 at 17:00 Non-Formulary Medication (Cranberry Conc/ Ascorbic Acid (Cranberry Plus Vitamin C Sftgl)) 1 each QHS PO ; Start 01/15/18 at 21:00; Stop 01/15/18 at 21:00; Status DC Gabapentin (Neurontin) 300 mg QHS PO Last administered on 01/16/18at 20:24; Start 01/15/18 at 21:00 Vitamin B Complex/ Vitamin C (Alayna-Oneil) 1 tab DAILY PO Last administered on at 08:23; Start 01/16/18 at 09:00 Diphenhydramine HCl (Benadryl) 25 mg PRN Q6HRS PRN PO ITCHING; Start 01/15/18 at 14:45 Piperacillin Sod/ Tazobactam Sod (Zosyn Per Pharmacy) 1 each PRN DAILY PRN MC SEE COMMENTS; Start 01/15/18 at 15:00 Megestrol Acetate (Megace) 20 mg DAILY PO Last administered on 01/17/18at 08:22 ; Start 01/15/18 at 17:00 Silver Sulfadiazine (Silvadene) 1 patricio 1X ONCE TP ; Start 01/15/18 at 15:00; Stop 01/15/18 at 15:13; Status DC Labetalol HCl (Normodyne Iv Push) 10 mg PRN Q2HR PRN IVP HYPERTENSION, SEE COMMENTS; Start 01/15/18 at 15:00 Sodium Chloride 1,000 ml @ 1,000 mls/hr Q1H PRN IV hypotension; Start at 15:32; Stop 01/15/18 at 21:31; Status DC Albumin Human 200 ml @ 200 mls/hr 1X PRN PRN IV Hypotension; Start 01/15/18 at 15:45; Stop 01/15/18 at 21:44; Status DC Sodium Chloride 1,000 ml @ 400 mls/hr Q2H30M PRN IV PATENCY; Start 01/15/18 at 15:32; Stop 01/16/18 at 03:31; Status DC Info (PHARMACY MONITORING -- do not chart) 1 each PRN DAILY PRN MC SEE COMMENTS ; Start 01/15/18 at 15:45; Stop 01/16/18 at 07:35; Status DC Piperacillin Sod/ Tazobactam Sod 2.25 gm/Sodium Chloride 50 ml @ 100 mls/hr Q8HRS IV Last administered on 01/17/18at 06:02; Start 01/15/18 at 22:00 Heparin Sodium (Porcine) (Heparin Sodium) 5,000 unit Q8HRS SQ ; Start 01/15/18 at 22:00 Piperacillin Sod/ Tazobactam Sod 2.25 gm/Sodium Chloride 50 ml @ 100 mls/hr 1X ONCE IV ; Start 01/15/18 at 17:00; Stop 01/15/18 at 17:29; Status DC Sodium Chloride 1,000 ml @ 1,000 mls/hr Q1H PRN IV hypotension; Start at 07:23; Stop 01/16/18 at 13:22; Status DC Albumin Human 200 ml @ 200 mls/hr 1X PRN PRN IV Hypotension; Start 01/16/18 at 07:30; Stop 01/16/18 at 13:29; Status DC Sodium Chloride (Normal Saline Flush) 10 ml 1X PRN PRN IV AP catheter pack; Start 01/16/18 at 07:30; Stop 01/17/18 at 07:29; Status DC Sodium Chloride (Normal Saline Flush) 10 ml 1X PRN PRN IV HEAD BOOKKEEPER catheter pack; Start 01/16/18 at 07:30; Stop 01/17/18 at 07:29; Status DC Sodium Chloride 1,000 ml @ 400 mls/hr Q2H30M PRN IV PATENCY; Start 01/16/18 at 07:23; Stop 01/16/18 at 19:22; Status DC Info (PHARMACY MONITORING -- do not chart) 1 each PRN DAILY PRN MC SEE COMMENTS ; Start 01/16/18 at 07:30 Info (PHARMACY MONITORING -- do not chart) 1 each PRN DAILY PRN MC SEE COMMENTS ; Start 01/16/18 at 07:30; Status UNV Lidocaine HCl (Xylocaine-Mpf 1% 2ml Vial) 2 ml 1X ONCE INJ ; Start 01/16/18 at 07:30; Stop 01/16/18 at 07:35; Status DC Lactobacillus Rhamnosus (Culturelle) 1 cap BID PO Last administered on at 08:22; Start 01/16/18 at 21:00 Active Scripts Active Bacitracin 28.4 Gm Oint...g. 1 Patricio TP BID 14 Days FENTANYL 25mcg/hr (Fentanyl) 1 Each Patch.td72 1 Patch TD Q3DAYS 30 Days Hydrocodone-Apap 5-325 (Hydrocodone Bit/Acetaminophen) 1 Each Tablet 1 Tab PO PRN Q4-6HRS PRN Atorvastatin Calcium 10 Mg Tablet 10 Mg PO QHS 30 Days Carvedilol 3.125 Mg Tablet 3.125 Mg PO BIDWMEALS Reported Sertraline Hcl 50 Mg Tablet 50 Mg PO QHS Sensipar (Cinacalcet Hcl) 30 Mg Tablet 1 Tab PO QHS Alayna-Oneil Rx Tablet (Vit B Cmplx 3/Fa/Vit C/Biotin) 1 Each Tablet 1 Each PO DAILY Cranberry Plus Vitamin C Sftgl (Cranberry Conc/Ascorbic Acid) 1 Each Capsule 1 Each PO QHS Coricidin Hbp Tablet (Acetaminophen/Chlorpheniramine) 1 Each Tablet 1 Each PO PRN Alprazolam 0.25 Mg Tablet 1 Tab PO DAILY PRN Plavix (Clopidogrel Bisulfate) 75 Mg Tablet 75 Mg PO QHS Calcium Acetate 667 Mg Tablet 2 Tab PO TIDWMEALS Tylenol Extra Strength (Acetaminophen) 500 Mg Tablet 500 Mg PO PRN Q12HRS PRN Gabapentin 300 Mg Capsule 300 Mg PO QHS Benadryl Allergy (Diphenhydramine Hcl) 25 Mg Tablet 25 Mg PO PRN not given in the hospital Aspir 81 (Aspirin) 81 Mg Tablet.dr 81 Mg PO QHS Vitals/I & O Vital Sign - Last 24 Hours 01/16/18 01/16/18 01/16/18 01/16/18 15:58 17:36 17:37 19:00 Temp 97.0 99.6 97.0 99.6 Pulse 63 63 61 Resp 16 17 B/P (MAP) 157/63 (94) 157/63 140/50 (80) Pulse Ox 98 86 O2 Delivery Room Air Room Air Room Air 01/16/18 01/16/18 01/17/18 01/17/18 20:00 22:35 03:00 07:00 Temp 99.0 98.1 98.6 99.0 98.1 98.6 Pulse 59 60 58 Resp 18 18 12 B/P (MAP) 161/63 (95) 148/46 (80) 149/54 (85) Pulse Ox 98 95 91 O2 Delivery Room Air Room Air Room Air Nasal Cannula O2 Flow Rate 2.0 01/17/18 01/17/18 01/17/18 01/17/18 07:08 08:00 08:22 08:23 Pulse 58 B/P (MAP) 149/54 O2 Delivery Nasal Cannula Nasal Cannula Nasal Cannula O2 Flow Rate 2.0 2.0 2.0 01/17/18 09:34 O2 Delivery Room Air Intake and Output 01/16/18 01/16/18 01/17/18 15:00 23:00 07:00 Intake Total 240 ml 200 ml Output Total 400 ml 0 ml Balance -160 ml 200 ml MICHELLE DOWD MD Jan 17, 2018 11:10
[2018-01-17 15:00] VITALS: BP 130/55
[2018-01-17 19:00] VITALS: BP 158/49
[2018-01-17] MEDS: ASPIRIN ENTERIC COATED 81 MG TABLET.DR. PO SCH (21:30)
[2018-01-17] MEDS: SERTRALINE 50 MG TABLET. PO SCH (21:30)
[2018-01-17] MEDS: ATORVASTATIN CALCIUM 10 MG TABLET. PO SCH (21:30)
[2018-01-17] MEDS: GABAPENTIN 300 MG CAPSULE. PO SCH (21:30)
[2018-01-17] MEDS: CLOPIDOGREL BISULFATE 75 MG TABLET PO SCH (21:30)
[2018-01-17] MEDS: CINACALCET HCL 30 MG TABLET PO SCH (21:30)
[2018-01-17 23:00] VITALS: BP 113/53
[2018-01-18 03:00] VITALS: BP 147/57
[2018-01-18 04:32] LABS: BASO % 0 % (0-3); EOS # 0.4 x10^3/uL (0.0-0.7); EOS % 4 % (0-3); HEMATOCRIT 30.1 % (36.0-47.0); HEMOGLOBIN 10.1 g/dL (12.0-15.5); LYMPH # 1.7 x10^3/uL (1.0-4.8); LYMPH % 18 % (24-48); MEAN CORPUSCULAR HEMOGLOBIN 30 pg (25-35); MEAN CORPUSCULAR HGB CONC 34 g/dL (31-37); MEAN CORPUSCULAR VOLUME 89 fL (79-100); MONO # 0.8 x10^3/uL (0.0-1.1); MONO % 9 % (0-9); NEUT # 6.4 x10^3uL (1.8-7.7); NEUT % 69 % (31-73); PLATELET COUNT 151 x10^3/uL (140-400); RED BLOOD COUNT 3.39 x10^6/uL (3.50-5.40); RED CELL DISTRIBUTION WIDTH 16.7 % (11.5-14.5); WHITE BLOOD COUNT 9.3 x10^3/uL (4.0-11.0)
[2018-01-18 04:57] LABS: CALCIUM 7.5 mg/dL (8.5-10.1); CREATININE 5.5 mg/dL (0.6-1.0); GFR 7.8; POTASSIUM 4.1 mmol/L (3.5-5.1)
[2018-01-18] MEDS: HYDROcodone/APAP 5/325MG 1 TAB TABLET PO PRN ×2 (05:37→17:19)
[2018-01-18] MEDS: PIPERACILLIN/TAZOBACTAM 2.25 GM in IV NORMAL SALINE 50ML 50 ML IV SCH ×2 (05:37→13:15)
[2018-01-18] MEDS: ONDANSETRON PF 4 MG/2 ML VIAL. IV PRN (05:42)
[2018-01-18] MEDS: HEPARIN for SUB-Q USE 5,000 UNIT/ML VIAL. SQ SCH ×2 (05:42→13:19)
[2018-01-18 07:00] VITALS: BP 146/51
[2018-01-18] MEDS: LACTOBACILLUS RHAMNOSUS GG 1 CAPSULE. PO SCH (08:20)
[2018-01-18] MEDS: FOLIC/VIT B COMP W-C (RENAL) TABLET. PO SCH (08:21)
[2018-01-18] MEDS: CALCIUM ACETATE 667 MG CAPSULE PO SCH ×3 (08:21→17:08)
[2018-01-18] MEDS: CARVEDILOL 3.125 MG TABLET. PO SCH ×2 (08:21→17:07)
[2018-01-18] MEDS: fentaNYL 25MCG/HR PATCH 1 PATCH PATCH.TD72 TD SCH (08:22)
[2018-01-18] MEDS: BACITRACIN TOPICAL OINT 14GM TUBE. TP SCH (08:25)
--- NOTE | 2018-01-18 10:52 | PDOC ---
SUBJECTIVE ROS pt reports feeling better . States her HD days are TTS OBJECTIVE Vital Signs Vital Signs Date Time Temp Pulse Resp B/P (MAP) Pulse Ox O2 Delivery O2 Flow Rate FiO2 01/18/18 09:50 Nasal Cannula 2.0 01/18/18 08:22 93 01/18/18 08:21 60 146/51 01/18/18 07:00 98.3 18 98.3 I & 0 Intake and Output 01/18/18 07:00 Intake Total 725 ml Output Total 0 ml Balance 725 ml Intake Oral 725 ml Output Urine Total 0 ml # Voids 3 # Bowel Movements 1 PHYSICAL EXAM Physical Exam General: No acute distress HEENT: OM moist , On O2 by NC Neck No JVD Lungs: Clear to auscultation, Non labored breathing Heart: S1S2, RRR,has a pacer/defibrillator on the left chest Abdomen: Normal bowel sounds, Soft, Extremities: left AV fistula with good bruit and thrill , No LE edema Skin: multiple bruising Neuro: grossly Normal - No Elmore, No C VA or SP tenderness DIAGNOSIS/ASSESSMENT Assessment & Plan ESRD- Non complaint with HD Last dialysis prior to hospitalization for 3 weeks back Dialyzed x 2 since admission Currently No Indication for HD, will Dialyze tomorrow as per he TTS schedule Hyperkalemia- On admission - K of 7.9 Dialyzed x2 K normal today Hx of VT/cardiac arrest: s/p VT ablation 11/2016. CAD: multiple stents in 2017 AICD insitu: Multiple hospitalization at various Hospitals, including [facility] Left leg cellulitis recent I and D by vasc sx at [facility] On Abx as per primary Anemia- Aranesp as per protocol Discussed with Pt COMMENT/RELEVANT DATA Meds Current Medications Medications (Trade) Dose Ordered Sig/Liza Start Time Stop Time Status Last Admin Dose Admin Acetaminophen (Tylenol) 650 mg PRN Q6HRS PRN 01/15/18 14:45 Acetaminophen/ Hydrocodone Bitart (Lortab 5/325) 1 tab PRN QID PRN 01/15/18 14:45 01/18/18 05:37 1 TAB Albumin Human 200 ml @ 200 mls/hr 1X PRN PRN 01/16/18 07:30 01/16/18 13:29 DC Albuterol Sulfate (Ventolin Neb Soln) 10 mg 1X ONCE 01/15/18 14:15 01/15/18 14:16 DC 01/15/18 14:15 10 MG Alprazolam (Xanax) 0.25 mg PRN DAILY PRN 01/15/18 14:45 Aspirin (Ecotrin) 81 mg QHS 01/15/18 21:00 01/17/18 21:30 81 MG Atorvastatin Calcium (Lipitor) 10 mg QHS 01/15/18 21:00 01/17/18 21:30 10 MG Bacitracin 1 osbaldo BID 01/15/18 21:00 01/17/18 21:31 1 OSBALDO Bisacodyl (Dulcolax Supp) 10 mg PRN DAILY PRN 01/15/18 14:45 Calcium Acetate (Phoslo) 1,334 mg TIDWMEALS 01/15/18 17:00 01/18/18 08:21 1,334 MG Calcium Carbonate/ Glycine (Tums) 500 mg PRN Q3HRS PRN 01/15/18 14:45 Calcium Gluconate (Calcium Gluconate) 1,000 mg 1X ONCE 01/15/18 14:15 01/15/18 14:16 DC 01/15/18 14:17 1,000 MG Carvedilol (Coreg) 3.125 mg BIDWMEALS 01/15/18 17:00 01/18/18 08:21 3.125 MG Cinacalcet (Sensipar) 30 mg QHS 01/15/18 21:00 01/17/18 21:30 30 MG Clopidogrel Bisulfate (Plavix) 75 mg QHS 01/15/18 21:00 01/17/18 21:30 75 MG Dextrose (Dextrose 50%-Water Syringe) 25 gm 1X ONCE 01/15/18 14:15 01/15/18 14:16 DC 01/15/18 14:19 25 GM Diphenhydramine HCl (Benadryl) 25 mg PRN Q6HRS PRN 01/15/18 14:45 Enoxaparin Sodium (Lovenox 40mg Syringe) 40 mg Q24H 01/15/18 15:00 UNV Fentanyl (Duragesic 25mcg/ Hr Patch) 1 patch Q3DAYS 01/15/18 15:00 01/18/18 08:22 1 PATCH Fentanyl Citrate (Fentanyl 2ml Vial) 50 mcg PRN Q2HR PRN 01/15/18 14:45 01/16/18 09:03 50 MCG Gabapentin (Neurontin) 300 mg QHS 01/15/18 21:00 01/17/18 21:30 300 MG Heparin Sodium (Porcine) (Heparin Sodium) 5,000 unit Q8HRS 01/15/18 22:00 Info (PHARMACY MONITORING -- do not chart) 1 each PRN DAILY PRN 01/16/18 07:30 UNV Insulin Human Regular (HumuLIN R VIAL) 10 unit 1X ONCE 01/15/18 14:15 01/15/18 14:16 DC 01/15/18 14:18 10 UNIT Labetalol HCl (Normodyne Iv Push) 10 mg PRN Q2HR PRN 01/15/18 15:00 Lactobacillus Rhamnosus (Culturelle) 1 cap BID 01/16/18 21:00 01/18/18 08:20 1 CAP Lidocaine HCl (Xylocaine-Mpf 1% 2ml Vial) 2 ml 1X ONCE 01/16/18 07:30 01/16/18 07:35 DC Magnesium Hydroxide (Milk Of Magnesia) 2,400 mg PRN Q12HR PRN 01/15/18 14:45 Megestrol Acetate (Megace) 20 mg DAILY 01/15/18 17:00 01/17/18 08:22 20 MG Non-Formulary Medication (Cranberry Conc/ Ascorbic Acid (Cranberry Plus Vitamin C Sftgl)) 1 each QHS 01/15/18 21:00 01/15/18 21:00 DC Ondansetron HCl (Zofran) 4 mg PRN Q8HRS PRN 01/15/18 14:45 01/16/18 14:44 DC Piperacillin Sod/ Tazobactam Sod (Zosyn Per Pharmacy) 1 each PRN DAILY PRN 01/15/18 15:00 Piperacillin Sod/ Tazobactam Sod 2.25 gm/Sodium Chloride 50 ml @ 100 mls/hr 1X ONCE 01/15/18 17:00 01/15/18 17:29 DC Prochlorperazine (Compazine) 25 mg PRN Q12HR PRN 01/15/18 14:45 Prochlorperazine Edisylate (Compazine) 10 mg PRN Q6HRS PRN 01/15/18 14:45 Sertraline HCl (Zoloft) 50 mg QHS 01/15/18 21:00 01/17/18 21:30 50 MG Silver Sulfadiazine (Silvadene) 1 osbaldo 1X ONCE 01/15/18 15:00 01/15/18 15:13 DC Sodium Polystyrene Sulfonate (Kayexalate) 15 gm 1X ONCE 01/15/18 14:45 01/15/18 15:05 DC Sodium Bicarbonate (Sodium Bicarb Adult 8.4% Syr) 50 meq 1X ONCE 01/15/18 14:15 01/15/18 14:16 DC 01/15/18 14:17 50 MEQ Sodium Chloride 1,000 ml @ 400 mls/hr Q2H30M PRN 01/16/18 07:23 01/16/18 19:22 DC Sodium Chloride (Normal Saline Flush) 10 ml 1X PRN PRN 01/16/18 07:30 01/17/18 07:29 DC Tramadol HCl (Ultram) 50 mg PRN Q6HRS PRN 01/15/18 14:45 01/17/18 08:22 50 MG Vitamin B Complex/ Vitamin C (Alayna-Oneil) 1 tab DAILY 01/16/18 09:00 01/18/18 08:21 1 TAB Lab Laboratory Tests Test 01/18/18 04:00 White Blood Count 9.3 x10^3/uL (4.0-11.0) Red Blood Count 3.39 x10^6/uL (3.50-5.40) Hemoglobin 10.1 g/dL (12.0-15.5) Hematocrit 30.1 % (36.0-47.0) Mean Corpuscular Volume 89 fL (79-100) Mean Corpuscular Hemoglobin 30 pg (25-35) Mean Corpuscular Hemoglobin Concent 34 g/dL (31-37) Red Cell Distribution Width 16.7 % (11.5-14.5) Platelet Count 151 x10^3/uL (140-400) Neutrophils (%) (Auto) 69 % (31-73) Lymphocytes (%) (Auto) 18 % (24-48) Monocytes (%) (Auto) 9 % (0-9) Eosinophils (%) (Auto) 4 % (0-3) Basophils (%) (Auto) 0 % (0-3) Neutrophils # (Auto) 6.4 x10^3uL (1.8-7.7) Lymphocytes # (Auto) 1.7 x10^3/uL (1.0-4.8) Monocytes # (Auto) 0.8 x10^3/uL (0.0-1.1) Eosinophils # (Auto) 0.4 x10^3/uL (0.0-0.7) Basophils # (Auto) 0.0 x10^3/uL (0.0-0.2) Erythrocyte Sedimentation Rate 20 (0-25) Sodium Level 140 mmol/L (136-145) Potassium Level 4.1 mmol/L (3.5-5.1) Chloride Level 101 mmol/L (98-107) Carbon Dioxide Level 30 mmol/L (21-32) Anion Gap 9 (6-14) Blood Urea Nitrogen 41 mg/dL (7-20) Creatinine 5.5 mg/dL (0.6-1.0) Estimated GFR (Cockcroft-Gault) 7.8 Glucose Level 77 mg/dL (70-99) Calcium Level 7.5 mg/dL (8.5-10.1) Results All relevant outside records, renal labs, imaging studies, telemetry/EKG's were reviewed. JULIET DAVEY MD Jan 18, 2018 10:52
[2018-01-18 11:00] VITALS: BP 130/58
[2018-01-18] MEDS: MEGESTROL 20 MG TABLET. PO SCH (11:36)
[2018-01-18] MEDS ORDERED: LACT1CAP19 PO (11:54)
[2018-01-18] MEDS ORDERED: POLY17PO29 PO (11:54)
[2018-01-18] MEDS ORDERED: PIPE2.255 MC (11:54)
[2018-01-18] MEDS ORDERED: HEPA50003 SQ (11:54)
--- NOTE | 2018-01-18 11:55 | DISCH ---
DISCHARGE DISCHARGE INFORMATION: DISCHARGE DATE: Jan 18, 2018 FINAL DIAGNOSIS Problems Medical Problems: (1) End stage renal disease Status: Acute (2) Hyperkalemia Status: Acute CONDITION ON DISCHARGE: Stable CODE STATUS: Code Status: Full LTAC: ADMIT TO LTAC: Yes POST DISCHARGE ORDERS: ACTIVITY ORDERS: Resume previous activity, Activity as tolerated WEIGHT BEARING STATUS: As tolerated BATHING ORDERS: Shower-keep dressing dry WOUND/INCISION CARE: Ice to area for comfort CHECKS AFTER DISCHARGE: CHECKS AFTER DISCHARGE: Check blood press - daily, Check blood sugar, ac/hs, Weigh Yourself Daily FOLLOW-UP: PHYSICIAN FOLLOW-UP: vasc surg, Renal, consults TREATMENT/EQUIPMENT ORDERS: ADAPTIVE EQUIPMENT NEEDED: None INFUSION EQUIPMENT NEEDED: PICC Line (IV abx) Physical Therapy For: Evalulation/Treatment Occupational Therapy For: Evaluation/Treatment DISCHARGE MEDICATIONS: Home Meds Active Scripts Bacitracin (Bacitracin) 28.4 Gm Oint...g., 1 IRENE TP BID for 14 Days, #1 MISC Prov:TURNER ELISE MD 08/23/17 Fentanyl (FENTANYL 25mcg/hr) 1 Each Patch.td72, 1 PATCH TD Q3DAYS for 30 Days, # 4 PATCH Prov:TURNER ELISE MD 08/23/17 Hydrocodone Bit/Acetaminophen (HYDROCODONE-APAP 5-325 ) 1 Each Tablet, 1 TAB PO PRN Q4-6HRS PRN for PAIN, #30 TAB Prov:JARED BYRNES MD 06/03/17 Atorvastatin Calcium (ATORVASTATIN CALCIUM) 10 Mg Tablet, 10 MG PO QHS for 30 Days, #30 TAB Prov:SAVANNAH LOPEZ MD 12/12/16 Carvedilol (CARVEDILOL) 3.125 Mg Tablet, 3.125 MG PO BIDWMEALS, #60 TAB 2 Refills Prov:JARED BYRNES MD 10/25/16 Reported Medications Sertraline Hcl (SERTRALINE HCL) 50 Mg Tablet, 50 MG PO QHS for ANTI-DEPRESSANT, TAB 0 Refills 11/11/16 Cinacalcet Hcl (SENSIPAR) 30 Mg Tablet, 1 TAB PO QHS, #30 TAB 11 Refills 11/11/16 Vit B Cmplx 3/Fa/Vit C/Biotin (YOJANA-MARKO RX TABLET) 1 Each Tablet, 1 EACH PO DAILY, TAB 11/11/16 Cranberry Conc/Ascorbic Acid (CRANBERRY PLUS VITAMIN C SFTGL) 1 Each Capsule, 1 EACH PO QHS, CAP 11/11/16 Acetaminophen/Chlorpheniramine (CORICIDIN HBP TABLET) 1 Each Tablet, 1 EACH PO PRN for CONGESTION, TAB 11/11/16 Alprazolam (ALPRAZOLAM) 0.25 Mg Tablet, 1 TAB PO DAILY PRN for ANXIETY / AGITATION, #30 TAB 11/11/16 Clopidogrel Bisulfate (PLAVIX) 75 Mg Tablet, 75 MG PO QHS for TO PREVENT BLOOD CLOTS, #30 TAB 0 Refills 10/21/16 Calcium Acetate (CALCIUM ACETATE) 667 Mg Tablet, 2 TAB PO TIDWMEALS for digestive 02/22/15 Acetaminophen (TYLENOL EXTRA STRENGTH) 500 Mg Tablet, 500 MG PO PRN Q12HRS PRN for PAIN 02/22/15 Gabapentin (GABAPENTIN) 300 Mg Capsule, 300 MG PO QHS, CAP 10/02/14 Diphenhydramine Hcl (BENADRYL ALLERGY) 25 Mg Tablet, 25 MG PO PRN for ALLERGIES not given in the hospital 05/31/13 Aspirin (ASPIR 81) 81 Mg Tablet., 81 MG PO QHS for blood thinner 05/31/13 JARED BYRNES MD Jan 18, 2018 11:55
[2018-01-18 15:00] VITALS: BP 173/64
--- NOTE | 2018-01-18 15:48 | PDOC2 ---
ESTEPHANIA JACOBO PATHOLOGY LABORATORY AIDE 01/18/18 1548: CARDIAC CONSULT DATE OF CONSULT Date of Consult DATE: 01/18/18 TIME: 15:41 REASON FOR CONSULT Reason for Consult: V-tach REFERRING PHYSICIAN Referring Physician: Dr. Poole SOURCE Source: Chart review, Patient HISTORY OF PRESENT ILLNESS HISTORY OF PRESENT ILLNESS This is a 67 yo female who presented with complaints of generalized weakness. Has chronic RLE wound and has required multiple admission to both and [facility] recently. Had recnet I and D of wound by Dr. Darling at [facility]. Has since been extremely weak. Had fall 3 days ago. C/o pain in her sacral region. Denies any chest pain, palpitations, dizziness, diaphoresis, SOA, or nausea/vomiting. Had episode of probable v-tach on monitor, which prompted this consult. PAST MEDICAL HISTORY Past Medical History Cardiovascular: HTN, Valve insufficiency, CAD, Carotid artery disease, cardiac arrest/Vtach, CHF, subclavian artery stenosis, moderate to severe MR, PAD Pulmonary: Respiratory failure, COPD CENTRAL NERVOUS SYSTEM: Other (No pertinent history) GI: No pertinent hx Heme/Onc: Anemia NOS Hepatobiliary: No pertinent hx Psych: Depression Musculoskeletal: low back pain, Osteoarthritis, Other (cervical radiculopathy) Rheumatologic: No pertinent hx Infectious disease: No pertinent hx ENT: Allergic Rhinitis Renal/: Chronic renal failure (ESRD) Endocrine: Diabetes (2) Dermatology: No pertinent hx PAST SURGICAL HISTORY Past Surgical History AICD, Arthroscopy (right RTC repair), Cholecystectomy, Tonsillectomy, Hysterectomy, Other (anterior cervical fusion; lumbar decompression; LAV dialysis fistula 06/2015; 06/2016 left subclavian artery [employer]/stent), PCI/BMS to LAD 10/24/2016 and repeat LHC 11/13/2016, 11/2016 VT ablation, recent LA ASV graft revision, RLE wound I and D with Dr. Darling at [facility]) FAMILY HISTORY Family History: Diabetes SOCIAL HISTORY Social History Smoke: <1 pack per day (>40 pk yr) quit a month ago ALCOHOL: none Drugs: None Lives: with Family ALLERGIES ALLERGIES: Coded Allergies: ciprofloxacin (Verified Allergy, Intermediate, Rash, 05/08/17) morphine (Verified Adverse Reaction, Severe, makes her skin crawl, 05/08/17 ) oxycodone (Verified Adverse Reaction, Severe, makes her skin crawl, ) adhesive (Verified Adverse Reaction, Intermediate, blisters, 05/08/17) "use paper tape" ROS Review of System 14 point ROS conducted with pertinent positives noted above in HPI. PHYSICAL EXAM General: Alert, Oriented X3, Cooperative, No acute distress HEENT: Atraumatic, Mucous membr. moist/pink Lungs: Clear to auscultation Heart: Regular rate, Normal S1, Normal S2, Other (2/6 systolic murmur ) Abdomen: Soft, No tenderness Extremities: Other (trace bilateral LE edema ) Skin: Other (RLE wound- drsg intact) Neuro: Normal speech, Sensation intact Psych/Mental Status: Mental status NL, Mood NL MUSCULOSKELETAL: Osteoarthritic changes both hands VITALS VITALS Vital Signs Date Time Temp Pulse Resp B/P (MAP) Pulse Ox O2 Delivery O2 Flow Rate FiO2 01/18/18 15:00 98.0 60 18 173/64 (100) 80 2L 98.0 01/18/18 12:30 2.0 LABS Lab: Laboratory Tests Test 01/18/18 04:00 White Blood Count 9.3 x10^3/uL (4.0-11.0) Red Blood Count 3.39 x10^6/uL (3.50-5.40) Hemoglobin 10.1 g/dL (12.0-15.5) Hematocrit 30.1 % (36.0-47.0) Mean Corpuscular Volume 89 fL (79-100) Mean Corpuscular Hemoglobin 30 pg (25-35) Mean Corpuscular Hemoglobin Concent 34 g/dL (31-37) Red Cell Distribution Width 16.7 % (11.5-14.5) Platelet Count 151 x10^3/uL (140-400) Neutrophils (%) (Auto) 69 % (31-73) Lymphocytes (%) (Auto) 18 % (24-48) Monocytes (%) (Auto) 9 % (0-9) Eosinophils (%) (Auto) 4 % (0-3) Basophils (%) (Auto) 0 % (0-3) Neutrophils # (Auto) 6.4 x10^3uL (1.8-7.7) Lymphocytes # (Auto) 1.7 x10^3/uL (1.0-4.8) Monocytes # (Auto) 0.8 x10^3/uL (0.0-1.1) Eosinophils # (Auto) 0.4 x10^3/uL (0.0-0.7) Basophils # (Auto) 0.0 x10^3/uL (0.0-0.2) Erythrocyte Sedimentation Rate 20 (0-25) Sodium Level 140 mmol/L (136-145) Potassium Level 4.1 mmol/L (3.5-5.1) Chloride Level 101 mmol/L (98-107) Carbon Dioxide Level 30 mmol/L (21-32) Anion Gap 9 (6-14) Blood Urea Nitrogen 41 mg/dL (7-20) Creatinine 5.5 mg/dL (0.6-1.0) Estimated GFR (Cockcroft-Gault) 7.8 Glucose Level 77 mg/dL (70-99) Calcium Level 7.5 mg/dL (8.5-10.1) ECHOCARDIOGRAM ECHOCARDIOGRAM ECHOCARDIOGRAM <Conclusion> The left ventricular systolic function is normal. The ejection fraction is estimated at 50-55%. There is normal LV segmental wall motion. Pacer lead noted right atrium and right ventricle. Mild to moderate mitral regurgitation. Mild tricuspid regurgitation. There is no evidence of significant pericardial effusion. DATE: 05/08/17 1542 STRESS TEST STRESS TEST Conclusion 1. Regadenoson cardioisotope stress test showed [id number] amount of inferolateral wall ischemia associated with transient ischemic dilatation. 2. Normal left ventricular systolic function with ejection fraction calculated at 53%. 3. Consider coronary angiography. DATE: 10/23/16 1112 HEART CATH HEART CATH <Conclusion> Patent stent in the LAD with mild to moderate residual disease in the remaining parts of the vessel. Moderately small left circumflex vessel with moderate disease as outlined above. Right coronary artery with stenting from the ostium to the bifurcation. Diffuse disease including several areas of moderate restenosis as outlined above. DATE: 05/22/17 1843 ASSESSMENT/PLAN ASSESSMENT/PLAN 1. Ventricular arrhythmia; one episode on telemetry concerning for non- sustained v-tach. Otherwise, is maintaining SR. 2. Chronic diastolic CHF; clinically compensated. Recent EF and WM normal. 3. Hx of VT/cardiac arrest: s/p VT ablation 11/2016 at [facility]. Pt has been off mexilitine and amiodarone. 4. AICD in situ; ([place]ron[place]) 5. ESRD with hyperkalemia (resolved); on HD. Noncompliant 6. CAD: multiple stents in 2017 highlighted above. Oct and Nov 7. Severe PAD with chronic RLE wound. Vascular surgery following 8. Left leg cellulitis recent I and D. on antibiotic therapy 9. DM2/HLP 10. HTN: mild labile 11. COPD with continued tobaccoism Recommendations Device interrogation Check Mg; replace as warranted. Continue secondary prevention measures. Supportive care from a CV standpoint. CARRIE STINSON MD 01/19/18 1703: CARDIAC CONSULT ASSESSMENT/PLAN ASSESSMENT/PLAN Patient seen and examined 01/18/18. Agree with REMANUFACTURING TECHNICIAN's assessment and plan. Episode of nonsustained ventricular tachycardia on telemetry noted. Check magnesium level. Agree with device interrogation to assess arrhythmia burden Chronic diastolic heart failure well compensated CAD status clinically stable. Continue current medical regimen. Thank you for your consultation. ESTEPHANIA JACOBO APRN Jan 18, 2018 15:48 CARRIE STINSON MD Jan 19, 2018 17:03
[2018-01-18 17:07] VITALS: BP 173/64
[2018-01-18] MEDS ORDERED: ONDANSETRON ODT 4 MG TAB.RAPDIS. PO ONE (17:15)
[2018-01-19 11:01] LABS: POTASSIUM 7.4 mmol/L (3.5-5.1)
== END 2018-01-18 17:15 | DRG 640 ==
LOC: ER 11:39 → 5 SOUTH 14:39
PROVIDERS: ADMIT Internal Medicine; ATTEND Internal Medicine
PROC: 5A1D70Z Performance of Urinary Filtration, Intermittent, Less than 6 Hours Per Day (ICD-10-PCS; 2018-01-15)
PROC: 5A1D70Z Performance of Urinary Filtration, Intermittent, Less than 6 Hours Per Day (ICD-10-PCS; principal; 2018-01-16)
PROC: 4B02XTZ Measurement of Cardiac Defibrillator, External Approach (ICD-10-PCS; 2018-01-18)
DX: E87.5 Hyperkalemia (principal); N18.6 End stage renal disease; I13.2 Hypertensive heart and chronic kidney disease with heart failure and with stage 5 chronic kidney disease, or end stage renal disease; I50.32 Chronic diastolic (congestive) heart failure; L97.909 Non-pressure chronic ulcer of unspecified part of unspecified lower leg with unspecified severity; I47.2 Ventricular tachycardia; L03.116 Cellulitis of left lower limb; I42.9 Cardiomyopathy, unspecified; I25.10 Atherosclerotic heart disease of native coronary artery without angina pectoris; J44.9 Chronic obstructive pulmonary disease, unspecified; F32.9 Major depressive disorder, single episode, unspecified; E21.3 Hyperparathyroidism, unspecified; E11.22 Type 2 diabetes mellitus with diabetic chronic kidney disease; E11.51 Type 2 diabetes mellitus with diabetic peripheral angiopathy without gangrene; E78.5 Hyperlipidemia, unspecified; E11.622 Type 2 diabetes mellitus with other skin ulcer; F17.200 Nicotine dependence, unspecified, uncomplicated; D64.9 Anemia, unspecified; M19.042 Primary osteoarthritis, left hand; M19.041 Primary osteoarthritis, right hand; W01.0XXA Fall on same level from slipping, tripping and stumbling without subsequent striking against object, initial encounter; Y93.89 Activity, other specified; Y92.89 Other specified places as the place of occurrence of the external cause; Y99.8 Other external cause status; Z91.15 Patient's noncompliance with renal dialysis; Z86.74 Personal history of sudden cardiac arrest; Z90.710 Acquired absence of both cervix and uterus; Z99.2 Dependence on renal dialysis; Z87.01 Personal history of pneumonia (recurrent); Z88.5 Allergy status to narcotic agent; Z88.8 Allergy status to other drugs, medicaments and biological substances; Z91.048 Other nonmedicinal substance allergy status; Z91.19 Patient's noncompliance with other medical treatment and regimen; Z83.3 Family history of diabetes mellitus; Z82.49 Family history of ischemic heart disease and other diseases of the circulatory system; Z95.810 Presence of automatic (implantable) cardiac defibrillator
CPT/HCPCS: 36415; 72220; 80048; 80076; 81001; 83690; 83735; 84484; 85007; 85025; 85651; 87086; 87186; 93005; 94644; 96374; 96375; J0610; J1815; J2405; J2543; J3010; J7042; J7613; Q0162; 99285-25

== ENCOUNTER 2018-02-18 00:01 | Emergency (ER) | payer MEDICARE, BC ==
[~2018-02-18] VITALS: Ht 162.6 cm; Wt 66.7 kg
[~2018-02-18 00:01] MED LIST changes: +CARV3.1210 PO; -CARV3.122 PO; +HEPA50003 SQ; -HYDR-2758 PO; +HYDR-2761 PO; +HYDR-3135 PO; +HYDR-3164 PO; -HYDR-971 PO; +LACT1CAP19 PO; +PIPE2.255 MC; +POLY17PO28 PO; +POLY17PO29 PO
--- NOTE | 2018-02-18 00:26 | PHYS DOC ---
Past Medical History Past Medical History: Anemia, CAD, Diabetes-Type II, Hypertension, Pneumonia, Renal Failure, Other Additional Past Medical Histor: dialysis Past Surgical History: Cholecystectomy, Hysterectomy, Pacemaker, Tonsillectomy , Other Additional Past Surgical Histo: cardiac cath 10/2016-w/stent placement, back surgery,rotator cuff Smoking: Cigarettes Alcohol Use: None Drug Use: None Adult General Chief Complaint Chief Complaint: CHEST PAIN HPI HPI 68-year-old female presents via EMS with report of right-sided chest pain which started approximately one hour prior to arrival. Patient does report some radiation up to her neck and into her jaw. Patient does have significant cardiac risk factors including high blood pressure, diabetes, smoking, and known CAD. Patient does have a history of prior stents. Denies increased leg swelling or calf tenderness. Patient does have chronic wound to right leg which is currently being treated with wound VAC. Denies fever or chills. Denies known trauma. Patient also with past medical history of end-stage renal disease on hemodialysis on Tuesdays, , and Saturdays. Patient reports she has been not feeling well and therefore missed her Thursday appointment for dialysis. Per [facility] review, patient with recent cardiac catheterization by Dr. Knight : Due to the patient's recurrent noncompliance with missing dialysis sessions and also not taking adequate medical therapy it was felt that further intervention on the right coronary artery would be risky. Due to the lack of any significant chest pain and EKG changes it was elected to be treated medically with anticoagulation and antiplatelet therapy in light of the patient's severe noncompliance history. Conclusion 1. Elevated left ventricular filling pressure consistent with acute on chronic diastolic heart failure 2. Severe three-vessel coronary artery disease with patent stents in the LAD and severe diffuse ISR of the RCA stents. Recommendations Consider hospice evaluation due to the patient's recurrent noncompliance. If she does show some future compliance with medical therapy and treatments could then consider laser atherectomy of her ISR of the RCA and PCI at that time. Review of Systems Review of Systems Constitutional: Denies fever or chills [] Eyes: Denies change in visual acuity, redness, or eye pain [] HENT: Denies nasal congestion or sore throat [] Respiratory: Denies cough or shortness of breath [] Cardiovascular: Reports chest pain; denies palpitations GI: Denies abdominal pain, diarrhea or vomiting; reports some nausea : Denies dysuria or hematuria [] Musculoskeletal: Denies back pain or joint pain [] Integument: Denies rash or skin lesions [] Neurologic: Denies headache, focal weakness or sensory changes [] Complete systems were reviewed and found to be within normal limits, except as documented in this note. Current Medications Current Medications Current Medications Medications (Trade) Dose Ordered Sig/Liza Start Time Stop Time Status Last Admin Dose Admin Fentanyl Citrate (Fentanyl 2ml Vial) 50 mcg 1X ONCE 02/18/18 00:30 02/18/18 00:31 DC 02/18/18 00:38 50 MCG Ondansetron HCl (Zofran Odt) 4 mg 1X ONCE 02/18/18 00:30 02/18/18 00:31 DC 02/18/18 00:37 4 MG Allergies Allergies Allergies Coded Allergies Type Severity Reaction Last Updated Verified ciprofloxacin Allergy Intermediate Rash 05/08/17 Yes morphine Adverse Reaction Severe makes her skin crawl 05/08/17 Yes oxycodone Adverse Reaction Severe makes her skin crawl 05/08/17 Yes adhesive Adverse Reaction Intermediate blisters 05/08/17 Yes Physical Exam Physical Exam Constitutional: Well developed, well nourished, no acute distress, appears uncomfortable, pale HENT: Normocephalic, atraumatic, oropharynx moist Eyes: EOMI, conjunctiva normal, no discharge. [] Neck: Normal range of motion, no tenderness, supple, no meningeal signs[] Cardiovascular: Heart rate regular rhythm, no murmur [] Lungs & Thorax: Bilateral breath sounds clear to auscultation [] Abdomen: Soft, no tenderness Skin: Warm, dry, no erythema, pale Extremities: Right lower leg with intact wound vac, ROM intact Neurologic: Alert and oriented X 3, no focal deficits noted. [] Psychologic: Affect normal, judgement normal, mood normal. [] Current Patient Data Vital Signs Vital Signs Date Time Temp Pulse Resp B/P (MAP) Pulse Ox O2 Delivery O2 Flow Rate FiO2 02/18/18 01:13 80 20 120/54 (76) 95 Room Air 02/18/18 00:13 99.0 02/18/18 00:01 98.6 98.6 Lab Values Laboratory Tests Test 02/18/18 00:50 White Blood Count 8.1 x10^3/uL (4.0-11.0) Red Blood Count 2.65 x10^6/uL (3.50-5.40) L Hemoglobin 7.9 g/dL (12.0-15.5) L Hematocrit 23.6 % (36.0-47.0) L Mean Corpuscular Volume 89 fL (79-100) Mean Corpuscular Hemoglobin 30 pg (25-35) Mean Corpuscular Hemoglobin Concent 34 g/dL (31-37) Red Cell Distribution Width 17.3 % (11.5-14.5) H Platelet Count 151 x10^3/uL (140-400) Neutrophils (%) (Auto) 61 % (31-73) Lymphocytes (%) (Auto) 27 % (24-48) Monocytes (%) (Auto) 9 % (0-9) Eosinophils (%) (Auto) 0 % (0-3) Basophils (%) (Auto) 3 % (0-3) Neutrophils # (Auto) 4.9 x10^3uL (1.8-7.7) Lymphocytes # (Auto) 2.2 x10^3/uL (1.0-4.8) Monocytes # (Auto) 0.7 x10^3/uL (0.0-1.1) Eosinophils # (Auto) 0.0 x10^3/uL (0.0-0.7) Basophils # (Auto) 0.2 x10^3/uL (0.0-0.2) Prothrombin Time 14.8 SEC (11.7-14.0) H Prothrombin Time INR 1.2 (0.8-1.1) H PTT 37 SEC (24-38) Sodium Level 139 mmol/L (136-145) Potassium Level 4.8 mmol/L (3.5-5.1) Chloride Level 101 mmol/L (98-107) Carbon Dioxide Level 24 mmol/L (21-32) Anion Gap 14 (6-14) Blood Urea Nitrogen 39 mg/dL (7-20) H Creatinine 6.8 mg/dL (0.6-1.0) H Estimated GFR (Cockcroft-Gault) 6.1 BUN/Creatinine Ratio 6 (6-20) Glucose Level 146 mg/dL (70-99) H Calcium Level 7.8 mg/dL (8.5-10.1) L Magnesium Level 2.0 mg/dL (1.8-2.4) Total Bilirubin 0.2 mg/dL (0.2-1.0) Aspartate Amino Transferase (AST) 23 U/L (15-37) Alanine Aminotransferase (ALT) 22 U/L (14-59) Alkaline Phosphatase 190 U/L (46-116) H Creatine Kinase 75 U/L (26-192) Creatine Kinase MB (Mass) 3.2 ng/mL (0.0-3.6) Creatine Kinase MB Relative Index 4.3 % (0-4) H Troponin I Quantitative 1.062 ng/mL (0.000-0.055) Total Protein 5.7 g/dL (6.4-8.2) L Albumin 2.1 g/dL (3.4-5.0) L Albumin/Globulin Ratio 0.6 (1.0-1.7) L Lipase 65 U/L (73-393) L Laboratory Tests 02/18/18 00:50 Laboratory Tests 02/18/18 00:50 EKG EKG @0007 SInus tachycardia 108bpm, wide QRS at 116ms, NO ST elevation, t wave inversion I and aVL, Q wave in III, ST depression in V4, compared to prior EKG from 02/11/[address] depression in V4 not evident, otherwise no significant change from prior. Radiology/Procedures Radiology/Procedures CXR AP (preliminary interpretation by ED physician): NO acute process. Prior hilar prominence noted. Course & Med Decision Making Course & Med Decision Making Pertinent Labs and Imaging studies reviewed. (See chart for details) Patient with significant cardiac risk factors presents with report of right- sided chest pain with radiation up to neck and into the jaw. Aspirin given by EMS. Pain addressed. EKG with some single-lead ST depression in V4. Labs obtained and posted to chart. Troponin greater than 1. Patient was noted to have troponin greater than 20 on 02/12/2018. Cannot exclude elevated troponin today secondary to decreasing troponin from 02/12/2018. Chest x-ray without focal abnormality in comparison to prior. Patient offered admission for further evaluation and recheck of laboratory data. Patient requesting to go home. Patient advised of risks of leaving AGAINST MEDICAL ADVICE which include permanent disability and/or . Patient willing to except these risks. Cardiology referral provided. Discussed findings and plan with patient and family, who acknowledge understanding and agreement. Dragon Disclaimer Dragon Disclaimer This electronic medical record was generated, in whole or in part, using a voice recognition dictation system. Departure Departure Impression: Primary Impression: Chest pain Additional Impressions: ESRD (end stage renal disease) on dialysis Elevated troponin Left against medical advice Disposition: AGAINST MEDICAL ADVICE Condition: GUARDED Referrals: UNKNOWN PCP NAME (PCP) CARRIE KNIGHT MD Patient Instructions: Cardiac-Specific Troponin I and T, Chest Pain ( Nonspecific), [id number], Discharge Against Medical Advice Critical Care Time Critical care time was 30 minutes which includes time at bedside, spent in discussion of patient's care with specialists and/or family members, with interpretation of laboratory and/or radiological studies and is exclusive of procedures. Problem Qualifiers Primary Impression: Chest pain Chest pain type: unspecified Qualified Codes: R07.9 - Chest pain, unspecified ELLY VASQUEZ DO Feb 18, 2018 00:26
[2018-02-18] MEDS ORDERED: fentaNYL PF VIAL 100 MCG/2 ML VIAL IV ONE (00:30)
[2018-02-18] MEDS ORDERED: ONDANSETRON ODT 4 MG TAB.RAPDIS. PO ONE (00:30)
[2018-02-18 00:58] LABS: BASO # 0.2 x10^3/uL (0.0-0.2); BASO % 3 % (0-3); EOS % 0 % (0-3); HEMATOCRIT 23.6 % (36.0-47.0); HEMOGLOBIN 7.9 g/dL (12.0-15.5); LYMPH # 2.2 x10^3/uL (1.0-4.8); LYMPH % 27 % (24-48); MEAN CORPUSCULAR HEMOGLOBIN 30 pg (25-35); MEAN CORPUSCULAR HGB CONC 34 g/dL (31-37); MEAN CORPUSCULAR VOLUME 89 fL (79-100); MONO # 0.7 x10^3/uL (0.0-1.1); MONO % 9 % (0-9); NEUT # 4.9 x10^3uL (1.8-7.7); NEUT % 61 % (31-73); PLATELET COUNT 151 x10^3/uL (140-400); RED BLOOD COUNT 2.65 x10^6/uL (3.50-5.40); RED CELL DISTRIBUTION WIDTH 17.3 % (11.5-14.5); WHITE BLOOD COUNT 8.1 x10^3/uL (4.0-11.0)
[2018-02-18 01:13] VITALS: BP 120/54
[2018-02-18 01:23] LABS: CALCIUM 7.8 mg/dL (8.5-10.1); CREATININE 6.8 mg/dL (0.6-1.0); GFR 6.1; POTASSIUM 4.8 mmol/L (3.5-5.1); PROTHROMBIN TIME PATIENT 14.8 SEC (11.7-14.0)
[2018-02-18 01:28] LABS: ALBUMIN 2.1 g/dL (3.4-5.0); ALBUMIN/GLOBULIN RATIO 0.6 (1.0-1.7); TOTAL BILIRUBIN 0.2 mg/dL (0.2-1.0); TOTAL PROTEIN 5.7 g/dL (6.4-8.2)
--- NOTE | 2018-02-18 05:20 | RAD ---
AP portable chest radiograph 02/17/2018 Clinical History: Chest pain and shortness of breath. An AP erect portable digital radiograph of the chest was obtained. Comparison study is dated 02/11/2018. The patient is rotated to the right. A pacemaker/defibrillator is unchanged in position. Stents overlie the left axilla, unchanged. The cardiac silhouette is mildly enlarged. The thoracic aorta is tortuous. Atherosclerotic calcification of the thoracic aorta is seen. Anterior plate and bone screws overlies the lower cervical spine. Mild congestive changes are seen involving both lungs. No area of consolidation is seen. There is a minimal right pleural effusion. No pneumothorax is noted. The osseous structures are unchanged. Impression: Mild congestive changes are seen involving both lungs. Electronically signed by: Marshall Ngo MD (02/18/2018 5:16 AM) [facility]
--- NOTE | 2018-02-18 06:45 | EKG ---
[facility] [address] [place] [address] Test Date: 2018-02-18 Test Time: 00:07:14 Pat Name: DIANE CARLSON Department: Room: Gender: F Cost Recorder: : [id number] Requested By: ELLY VASQUEZ Order Number: [id number] Reading MD: Christian Morrison MD Measurements Intervals Bern Rate: 108 P: -130 IA: 108 QRS: 24 QRSD: 116 T: 157 QT: 362 QTc: 489 Interpretive Statements SINUS TACHYCARDIA LBBB CONSIDER INFERIOR ISCHEMIA Electronically Signed On 02-22-2018 8:22:53 [employer] by Christian Morrison MD
== END 2018-02-18 02:00 | disposition left against medical advice (07) ==
LOC: ER 00:01
DX: R07.89 Other chest pain (principal); E11.22 Type 2 diabetes mellitus with diabetic chronic kidney disease; I12.0 Hypertensive chronic kidney disease with stage 5 chronic kidney disease or end stage renal disease; N18.6 End stage renal disease; Z99.2 Dependence on renal dialysis; I25.10 Atherosclerotic heart disease of native coronary artery without angina pectoris; F17.210 Nicotine dependence, cigarettes, uncomplicated; Z95.0 Presence of cardiac pacemaker; Z90.49 Acquired absence of other specified parts of digestive tract; Z90.710 Acquired absence of both cervix and uterus; Z95.5 Presence of coronary angioplasty implant and graft; Z88.1 Allergy status to other antibiotic agents; Z88.5 Allergy status to narcotic agent; Z88.8 Allergy status to other drugs, medicaments and biological substances
CPT/HCPCS: 36415; 71045; 80053; 82553; 83690; 83735; 84484; 85025; 85610; 85730; 93005; 96374; 99284; J3010; Q0162

== ENCOUNTER 2018-02-25 17:54 | Inpatient (IN) | payer MEDICARE, BC ==
[~2018-02-25] VITALS: Ht 162.6 cm; Wt 75.3 kg
[~2018-02-25 17:54] MED LIST changes: -GABA-586 PO; +GABA300C18 PO
[2018-02-25 18:28] LABS: BASO # 0.1 x10^3/uL (0.0-0.2); BASO % 1 % (0-3); EOS % 0 % (0-3); HEMATOCRIT 26.5 % (36.0-47.0); HEMOGLOBIN 8.2 g/dL (12.0-15.5); LYMPH # 1.2 x10^3/uL (1.0-4.8); LYMPH % 7 % (24-48); MEAN CORPUSCULAR HEMOGLOBIN 30 pg (25-35); MEAN CORPUSCULAR HGB CONC 31 g/dL (31-37); MEAN CORPUSCULAR VOLUME 96 fL (79-100); MONO % 6 % (0-9); NEUT # 14.2 x10^3uL (1.8-7.7); NEUT % 86 % (31-73); PLATELET COUNT 307 x10^3/uL (140-400); RED BLOOD COUNT 2.76 x10^6/uL (3.50-5.40); WHITE BLOOD COUNT 16.5 x10^3/uL (4.0-11.0)
[2018-02-25 18:43] LABS: ALBUMIN 2.2 g/dL (3.4-5.0); ALBUMIN/GLOBULIN RATIO 0.6 (1.0-1.7); CALCIUM 9.3 mg/dL (8.5-10.1); CREATININE 9.6 mg/dL (0.6-1.0); GFR 4.1; TOTAL BILIRUBIN 0.4 mg/dL (0.2-1.0); TOTAL PROTEIN 5.8 g/dL (6.4-8.2)
[2018-02-25 18:44] LABS: % BANDS 2 % (0-9); % LYMPHS 5 % (24-48); % MONOS 4 % (0-10); % SEGS 89 % (35-66)
[2018-02-25 18:45] LABS: PLT ESTIMATE ADEQUATE (ADEQUATE)
[2018-02-25 18:48] LABS: ANISOCYTOSIS MOD; POLYCHROMASIA MOD; POTASSIUM 6.7 mmol/L (3.5-5.1); SCHISTOCYTES FEW; TOXIC GRANULATION SLIGHT
--- NOTE | 2018-02-25 18:56 | PHYS DOC ---
Past Medical History Past Medical History: Anemia, CAD, Diabetes-Type II, Hypertension, Pneumonia, Renal Failure, Other Additional Past Medical Histor: dialysis Past Surgical History: Cholecystectomy, Hysterectomy, Pacemaker, Tonsillectomy , Other Additional Past Surgical Histo: cardiac cath 10/2016-w/stent placement, back surgery,rotator cuff Alcohol Use: None Drug Use: None Adult General Chief Complaint Chief Complaint: FATIGUE HPI HPI 68-year-old female who is chronically ill, medically noncompliant on hemodialysis presents with generalized weakness and fatigue. She states she has not had dialysis in over a week. She's been in the hospital recently secondary to a wound on her lower extremity. She is currently being treated with a wound VAC for that. She denies any chest pain. She has had some shortness of breath with any exertion. No nausea or vomiting. She denies any melena or hematemesis.[ ] Review of Systems Review of Systems Constitutional: Denies fever or chills [] Eyes: Denies change in visual acuity, redness, or eye pain [] HENT: Denies nasal congestion or sore throat [] Respiratory: Denies cough or shortness of breath [] Cardiovascular: No additional information not addressed in HPI [] GI: Denies abdominal pain, nausea, vomiting, bloody stools or diarrhea [] : Denies dysuria or hematuria [] Musculoskeletal: Denies back pain or joint pain [] Integument: Left lower extremity erythematous with wound VAC in place[] Neurologic: Denies headache, focal weakness or sensory changes [] Endocrine: Denies polyuria or polydipsia [] All other systems were reviewed and found to be within normal limits, except as documented in this note. Allergies Allergies Allergies Coded Allergies Type Severity Reaction Last Updated Verified ciprofloxacin Allergy Intermediate Rash 05/08/17 Yes morphine Adverse Reaction Severe makes her skin crawl 05/08/17 Yes oxycodone Adverse Reaction Severe makes her skin crawl 05/08/17 Yes adhesive Adverse Reaction Intermediate blisters 05/08/17 Yes Physical Exam Physical Exam Constitutional: Chronically ill appearing[] HENT: Normocephalic, atraumatic, bilateral external ears normal, oropharynx moist, no oral exudates, nose normal. [] Eyes: PERRLA, EOMI, conjunctiva normal, no discharge. [] Neck: Normal range of motion, no tenderness, supple, no stridor. [] Cardiovascular:Heart rate regular rhythm, no murmur [] Lungs & Thorax: Bibasilar rales[] Abdomen: Bowel sounds normal, soft, no tenderness, no masses, no pulsatile masses. [] Skin: Warm, dry, no erythema, no rash. [] Back: No tenderness, no CVA tenderness. [] Extremities: Erythematous area on the left lower extremity with a wound VAC in place. [] Neurologic: Alert and oriented X 3, normal motor function, normal sensory function, no focal deficits noted. [] Psychologic: Affect normal, judgement normal, mood normal. [] Current Patient Data Vital Signs Vital Signs Date Time Temp Pulse Resp B/P (MAP) Pulse Ox O2 Delivery O2 Flow Rate FiO2 02/25/18 18:00 99.1 73 20 121/84 (96) 99 Nasal Cannula 2.0 99.1 Lab Values Laboratory Tests Test 02/25/18 18:05 White Blood Count 16.5 x10^3/uL (4.0-11.0) H Red Blood Count 2.76 x10^6/uL (3.50-5.40) L Hemoglobin 8.2 g/dL (12.0-15.5) L Hematocrit 26.5 % (36.0-47.0) L Mean Corpuscular Volume 96 fL (79-100) Mean Corpuscular Hemoglobin 30 pg (25-35) Mean Corpuscular Hemoglobin Concent 31 g/dL (31-37) Red Cell Distribution Width 19.0 % (11.5-14.5) H Platelet Count 307 x10^3/uL (140-400) Neutrophils (%) (Auto) 86 % (31-73) H Lymphocytes (%) (Auto) 7 % (24-48) L Monocytes (%) (Auto) 6 % (0-9) Eosinophils (%) (Auto) 0 % (0-3) Basophils (%) (Auto) 1 % (0-3) Neutrophils # (Auto) 14.2 x10^3uL (1.8-7.7) H Lymphocytes # (Auto) 1.2 x10^3/uL (1.0-4.8) Monocytes # (Auto) 1.0 x10^3/uL (0.0-1.1) Eosinophils # (Auto) 0.0 x10^3/uL (0.0-0.7) Basophils # (Auto) 0.1 x10^3/uL (0.0-0.2) Segmented Neutrophils % 89 % (35-66) H Band Neutrophils % 2 % (0-9) Lymphocytes % 5 % (24-48) L Monocytes % 4 % (0-10) Toxic Granulation Slight Platelet Estimate Adequate (ADEQUATE) Polychromasia Mod Anisocytosis Mod Schistocytes Few Sodium Level 136 mmol/L (136-145) Potassium Level 6.7 mmol/L (3.5-5.1) *H Chloride Level 98 mmol/L (98-107) Carbon Dioxide Level 21 mmol/L (21-32) Anion Gap 17 (6-14) H Blood Urea Nitrogen 65 mg/dL (7-20) H Creatinine 9.6 mg/dL (0.6-1.0) H Estimated GFR (Cockcroft-Gault) 4.1 BUN/Creatinine Ratio 7 (6-20) Glucose Level 110 mg/dL (70-99) H Calcium Level 9.3 mg/dL (8.5-10.1) Total Bilirubin 0.4 mg/dL (0.2-1.0) Aspartate Amino Transferase (AST) 91 U/L (15-37) H Alanine Aminotransferase (ALT) 52 U/L (14-59) Alkaline Phosphatase 151 U/L (46-116) H OZ-Frs-I-Type Natriuretic Peptide > 73635 pg/mL (0-124) H Total Protein 5.8 g/dL (6.4-8.2) L Albumin 2.2 g/dL (3.4-5.0) L Albumin/Globulin Ratio 0.6 (1.0-1.7) L Laboratory Tests 02/25/18 18:05 Laboratory Tests 02/25/18 18:05 EKG EKG [] Interpretation Time: EKG: Sinus rhythm rate of 74 left bundle branch block Radiology/Procedures Radiology/Procedures [] Course & Med Decision Making Course & Med Decision Making Pertinent Labs and Imaging studies reviewed. (See chart for details) [ED course: Evaluation reveals a 68-year-old female who is likely suffering the effects of medical noncompliance and missed dialysis treatments. She is generally weak. She has a potassium of 6.7. She was treated with calcium gluconate, hour long albuterol nebulized treatment, sodium bicarbonate, an amp of D50 and 10 units of insulin IV. We will admit the patient for hemodialysis. CRITICAL CARE: Time spent was 35 minutes. This includes medical management, evaluation, reevaluation, discussion with consultants and family. Critical Care does NOT include time spent on separately billed procedures. ] Dragon Disclaimer Dragon Disclaimer This electronic medical record was generated, in whole or in part, using a voice recognition dictation system. Departure Departure Impression: Primary Impression: ESRD needing dialysis Additional Impressions: Hyperkalemia Generalized weakness Anemia Disposition: ADMITTED INPATIENT Condition: CRITICAL Referrals: UNKNOWN PCP NAME (PCP) Problem Qualifiers Additional Impressions: Anemia Anemia type: due to chronic kidney disease Chronic kidney disease stage: on chronic dialysis Qualified Codes: N18.6 - End stage renal disease; D63.1 - Anemia in chronic kidney disease; Z99.2 - Dependence on renal dialysis RJ CHANG DO Feb 25, 2018 18:56
[2018-02-25] MEDS ORDERED: DEXTROSE 50% 25 GM / 50ML DISP.SYRIN. IV ONE (19:00)
[2018-02-25] MEDS ORDERED: SODIUM BICARB ADULT 8.4% 50 MEQ/50 ML DISP.SYRIN. IV ONE (19:00)
[2018-02-25] MEDS ORDERED: CALCIUM GLUCONATE 1,000 MG/10 ML VIAL. IVP ONE (19:00)
[2018-02-25] MEDS ORDERED: INSULIN REGULAR 100 UNIT/ML 3ML VIAL. IV ONE (19:00)
[2018-02-25] MEDS ORDERED: ALBUTEROL SULFATE 2.5 MG/3 ML NEBU. CONT NEB ONE (19:00)
--- NOTE | 2018-02-25 19:01 | PDOC1 ---
History and Physical Date of Admission Date of Admission DATE: 02/25/18 TIME: 19:00 Identification/Chief Complaint Chief Complaint SEEN IN ER , noncompliant on hemodialysis presents with generalized weakness and fatigue, she has not had dialysis in over a week. in the hospital recently secondary to a wound on her lower extremity. She is currently being treated with a wound VAC generalized weakness and fatigue. She states she has not had dialysis in over a week. still smoking AMA Source Source: Patient Past Medical History Past Medical History Past Medical History: Anemia, CAD, Diabetes-Type II, Hypertension, Pneumonia, Renal Failure, Other Additional Past Medical Histor: dialysis Past Surgical History: Cholecystectomy, Hysterectomy, Pacemaker, Tonsillectomy , Other Additional Past Surgical Histo: cardiac cath 10/2016-w/stent placement, back surgery,rotator cuff Alcohol Use: None Drug Use: None family hx htn, diabetes Cardiovascular: CAD, HTN, Hyperlipidemia, Valve insufficiency, Other Pulmonary: COPD CENTRAL NERVOUS SYSTEM: Other Heme/Onc: Anemia NOS Psych: Depression Musculoskeletal: Other Rheumatologic: No pertinent hx Infectious disease: Other Renal/: Chronic renal insuff, Chronic renal failure, Other Endocrine: Diabetes, Hyperparathyroidism Dermatology: Eczema Past Surgical History Past Surgical History: Arthroscopy, Cholecystectomy, Tonsillectomy, Hysterectomy, Other Family History Family History: Diabetes, Hypertension Social History Smoke: <1 pack per day ALCOHOL: rare Drugs: None Current Problem List Problem List Problems Medical Problems: (1) Anemia Status: Acute (2) Generalized weakness Status: Acute (3) Hyperkalemia Status: Acute Current Medications Current Medications Current Medications Sodium Bicarbonate (Sodium Bicarb Adult 8.4% Syr) 50 meq 1X ONCE IV ; Start at 19:00; Stop 02/25/18 at 19:01 Calcium Gluconate (Calcium Gluconate) 1,000 mg 1X ONCE IVP ; Start 02/25/18 at 19:00; Stop 02/25/18 at 19:01 Dextrose (Dextrose 50%-Water Syringe) 25 gm 1X ONCE IV ; Start 02/25/18 at 19: 00; Stop 02/25/18 at 19:01 Insulin Human Regular (HumuLIN R VIAL) 10 unit 1X ONCE IV ; Start 02/25/18 at 19:00; Stop 02/25/18 at 19:01 Albuterol Sulfate (Ventolin Neb Soln) 10 mg 1X ONCE CONT NEB ; Start 02/25/18 at 19:00; Stop 02/25/18 at 19:01 Active Scripts Active FENTANYL 25mcg/hr (Fentanyl) 1 Each Patch.td72 1 Patch TD Q3DAYS 30 Days Atorvastatin Calcium 10 Mg Tablet 10 Mg PO QHS 30 Days Carvedilol 3.125 Mg Tablet 3.125 Mg PO BIDWMEALS Reported [place] 10-325 Tablet (Acetaminophen/Hydrocodone Bitart) 1 Each Tablet 1 Tab PO Q4 -6HRS Polyethylene Glycol 3350 17 Gm Powd.pack 17 Gm PO PRN DAILY PRN Sertraline Hcl 50 Mg Tablet 50 Mg PO QHS Sensipar (Cinacalcet Hcl) 30 Mg Tablet 1 Tab PO QHS Alayna-Oneil Rx Tablet (Vit B Cmplx 3/Fa/Vit C/Biotin) 1 Each Tablet 1 Each PO DAILY Cranberry Plus Vitamin C Sftgl (Cranberry Conc/Ascorbic Acid) 1 Each Capsule 1 Each PO QHS Alprazolam 0.25 Mg Tablet 1 Tab PO DAILY PRN Plavix (Clopidogrel Bisulfate) 75 Mg Tablet 75 Mg PO QHS Calcium Acetate 667 Mg Tablet 2 Tab PO TIDWMEALS Tylenol Extra Strength (Acetaminophen) 500 Mg Tablet 500 Mg PO PRN Q12HRS PRN Gabapentin 300 Mg Capsule 300 Mg PO QHS Benadryl Allergy (Diphenhydramine Hcl) 25 Mg Tablet 25 Mg PO PRN not given in the hospital Aspir 81 (Aspirin) 81 Mg Tablet.dr 81 Mg PO QHS Allergies Allergies: Coded Allergies: ciprofloxacin (Verified Allergy, Intermediate, Rash, 05/08/17) morphine (Verified Adverse Reaction, Severe, makes her skin crawl, 05/08/17 ) oxycodone (Verified Adverse Reaction, Severe, makes her skin crawl, ) adhesive (Verified Adverse Reaction, Intermediate, blisters, 05/08/17) "use paper tape" ROS Review of System Review of Systems Review of Systems Constitutional: Denies fever or chills [] Eyes: Denies change in visual acuity, redness, or eye pain [] HENT: Denies nasal congestion or sore throat [] Respiratory: Denies cough or shortness of breath [] Cardiovascular: No additional information not addressed in HPI [] GI: Denies abdominal pain, nausea, vomiting, bloody stools or diarrhea [] : Denies dysuria or hematuria [] Musculoskeletal: Denies back pain or joint pain [] Integument: Left lower extremity erythematous with wound VAC in place[] Neurologic: Denies headache, focal weakness or sensory changes [] Endocrine: Denies polyuria or polydipsia [] 14 PT systems were reviewed and found to be within normal limits, except as documented Eyes: No Blurry vision, No Decreased vision, No Double vision, No Dry eyes, No Excessive tearing, No Eye Pain, No Itchy Eyes, No Loss of vision, No Photophobia , No Scotomata, No Uses contacts, No Uses glasses, No Other HEENT: YES: [place] Respiratory: YES: Cough Musculoskeletal: Yes Gait Disturbance, Yes Joint Stiffness, Yes Joint Swelling Neurological: Yes Gait Disturbance Physical Exam Physical Exam Physical Exam Physical Exam Constitutional: Chronically ill appearing[] HENT: Normocephalic, atraumatic, bilateral external ears normal, oropharynx moist, no oral exudates, nose normal. [] Eyes: PERRLA, EOMI, conjunctiva normal, no discharge. [] Neck: Normal range of motion, no tenderness, supple, no stridor. [] Cardiovascular:Heart rate regular rhythm, no murmur [] Lungs & Thorax: Bibasilar rales[] Abdomen: Bowel sounds normal, soft, no tenderness, no masses, no pulsatile masses. [] Skin:LEFT LOWER ANKLE rash. [] Back: No tenderness, no CVA tenderness. [] Extremities: Erythematous area on the left lower extremity with wound VAC in place. [] Neurologic: Alert and oriented X 3, normal motor function, normal sensory function, no focal deficits noted. [] Psychologic: Affect normal, judgement POOR , mood normal. [] Alert and oriented. HEENT: Head is normocephalic, atraumatic NECK: Supple. LUNGS: Clear to auscultation. HEART: RRR, S1, S2 present. Peripheral pulses non palpable in legs, 1+ radial, 3/6 systolic flow murmur. ABDOMEN: Soft, nontender. Positive bowel sounds. EXTREMITIES: Without any cyanosis. Prior PAD interventions noted. RLE wound vac in place. NEUROLOGIC: Normal speech, normal tone PSYCHIATRIC: Appears depressed. General: Alert, Oriented X3 HEENT: PERRLA Lungs: Clear to auscultation Heart: RRR, no thrills Breasts: Not examined Abdomen: Normal bowel sounds, Soft Rectal Exam: not examined PELVIC: Examination not indicated Extremities: No cyanosis Neuro: Normal speech, Cranial nerves 3-12 NL Vitals Vitals Vital Signs Date Time Temp Pulse Resp B/P (MAP) Pulse Ox O2 Delivery O2 Flow Rate FiO2 02/25/18 18:00 99.1 73 20 121/84 (96) 99 Nasal Cannula 2.0 99.1 Labs Labs Laboratory Tests Test 02/25/18 18:05 White Blood Count 16.5 x10^3/uL (4.0-11.0) Red Blood Count 2.76 x10^6/uL (3.50-5.40) Hemoglobin 8.2 g/dL (12.0-15.5) Hematocrit 26.5 % (36.0-47.0) Mean Corpuscular Volume 96 fL (79-100) Mean Corpuscular Hemoglobin 30 pg (25-35) Mean Corpuscular Hemoglobin Concent 31 g/dL (31-37) Red Cell Distribution Width 19.0 % (11.5-14.5) Platelet Count 307 x10^3/uL (140-400) Neutrophils (%) (Auto) 86 % (31-73) Lymphocytes (%) (Auto) 7 % (24-48) Monocytes (%) (Auto) 6 % (0-9) Eosinophils (%) (Auto) 0 % (0-3) Basophils (%) (Auto) 1 % (0-3) Neutrophils # (Auto) 14.2 x10^3uL (1.8-7.7) Lymphocytes # (Auto) 1.2 x10^3/uL (1.0-4.8) Monocytes # (Auto) 1.0 x10^3/uL (0.0-1.1) Eosinophils # (Auto) 0.0 x10^3/uL (0.0-0.7) Basophils # (Auto) 0.1 x10^3/uL (0.0-0.2) Segmented Neutrophils % 89 % (35-66) Band Neutrophils % 2 % (0-9) Lymphocytes % 5 % (24-48) Monocytes % 4 % (0-10) Toxic Granulation Slight Platelet Estimate Adequate (ADEQUATE) Polychromasia Mod Anisocytosis Mod Schistocytes Few Sodium Level 136 mmol/L (136-145) Potassium Level 6.7 mmol/L (3.5-5.1) Chloride Level 98 mmol/L (98-107) Carbon Dioxide Level 21 mmol/L (21-32) Anion Gap 17 (6-14) Blood Urea Nitrogen 65 mg/dL (7-20) Creatinine 9.6 mg/dL (0.6-1.0) Estimated GFR (Cockcroft-Gault) 4.1 BUN/Creatinine Ratio 7 (6-20) Glucose Level 110 mg/dL (70-99) Calcium Level 9.3 mg/dL (8.5-10.1) Total Bilirubin 0.4 mg/dL (0.2-1.0) Aspartate Amino Transf (AST/SGOT) 91 U/L (15-37) Alanine Aminotransferase (ALT/SGPT) 52 U/L (14-59) Alkaline Phosphatase 151 U/L (46-116) JF-Ifd-R-Type Natriuretic Peptide > 29530 pg/mL (0-124) Total Protein 5.8 g/dL (6.4-8.2) Albumin 2.2 g/dL (3.4-5.0) Albumin/Globulin Ratio 0.6 (1.0-1.7) Laboratory Tests Test 02/25/18 18:05 White Blood Count 16.5 x10^3/uL (4.0-11.0) Red Blood Count 2.76 x10^6/uL (3.50-5.40) Hemoglobin 8.2 g/dL (12.0-15.5) Hematocrit 26.5 % (36.0-47.0) Mean Corpuscular Volume 96 fL (79-100) Mean Corpuscular Hemoglobin 30 pg (25-35) Mean Corpuscular Hemoglobin Concent 31 g/dL (31-37) Red Cell Distribution Width 19.0 % (11.5-14.5) Platelet Count 307 x10^3/uL (140-400) Neutrophils (%) (Auto) 86 % (31-73) Lymphocytes (%) (Auto) 7 % (24-48) Monocytes (%) (Auto) 6 % (0-9) Eosinophils (%) (Auto) 0 % (0-3) Basophils (%) (Auto) 1 % (0-3) Neutrophils # (Auto) 14.2 x10^3uL (1.8-7.7) Lymphocytes # (Auto) 1.2 x10^3/uL (1.0-4.8) Monocytes # (Auto) 1.0 x10^3/uL (0.0-1.1) Eosinophils # (Auto) 0.0 x10^3/uL (0.0-0.7) Basophils # (Auto) 0.1 x10^3/uL (0.0-0.2) Segmented Neutrophils % 89 % (35-66) Band Neutrophils % 2 % (0-9) Lymphocytes % 5 % (24-48) Monocytes % 4 % (0-10) Toxic Granulation Slight Platelet Estimate Adequate (ADEQUATE) Polychromasia Mod Anisocytosis Mod Schistocytes Few Sodium Level 136 mmol/L (136-145) Potassium Level 6.7 mmol/L (3.5-5.1) Chloride Level 98 mmol/L (98-107) Carbon Dioxide Level 21 mmol/L (21-32) Anion Gap 17 (6-14) Blood Urea Nitrogen 65 mg/dL (7-20) Creatinine 9.6 mg/dL (0.6-1.0) Estimated GFR (Cockcroft-Gault) 4.1 BUN/Creatinine Ratio 7 (6-20) Glucose Level 110 mg/dL (70-99) Calcium Level 9.3 mg/dL (8.5-10.1) Total Bilirubin 0.4 mg/dL (0.2-1.0) Aspartate Amino Transf (AST/SGOT) 91 U/L (15-37) Alanine Aminotransferase (ALT/SGPT) 52 U/L (14-59) Alkaline Phosphatase 151 U/L (46-116) CT-Ipg-J-Type Natriuretic Peptide > 23817 pg/mL (0-124) Total Protein 5.8 g/dL (6.4-8.2) Albumin 2.2 g/dL (3.4-5.0) Albumin/Globulin Ratio 0.6 (1.0-1.7) Images Images History: Shortness of breath, weakness COMPARISON: 02/18/2018 TECHNIQUE: Single portable radiograph of the chest FINDINGS: Low lung volumes and technique accentuates heart size and pulmonary vascularity. Bibasilar lung airspace opacities likely atelectasis or infiltrates, right greater than left. Minimal prominent appearing bilateral interstitial lung markings. IMPRESSION: 1. Mild congestive changes. 2. Bibasilar lung airspace opacities likely atelectasis or infiltrates. Follow-up to resolution. Electronically signed by: Jamie Webb MD (02/25/2018 7:10 PM) [facility] VTE Prophylaxis Ordered VTE Prophylaxis Devices: Yes VTE Pharmacological Prophylaxi: Yes Assessment/Plan Assessment/Plan Impression: ESRD needing dialysis tonight Hyperkalemia Generalized weakness Anemia NONCOMPLIANCE Tobacco abuse disorder fluid overload severe protein-caloric malnutrition DIABETES HTN ADMITTED Condition: CRITICAL consult nephrology tonight wound care consult home meds cardiac monitoring iv dextrose, insulin hold narcotics ACCUCHECKS 38 min cc time ROLAND ELLIOTT MD Feb 25, 2018 19:01
--- NOTE | 2018-02-25 19:13 | RAD ---
EXAM: CHEST 1 VIEW History: Shortness of breath, weakness COMPARISON: 02/18/2018 TECHNIQUE: Single portable radiograph of the chest FINDINGS: Low lung volumes and technique accentuates heart size and pulmonary vascularity. Bibasilar lung airspace opacities likely atelectasis or infiltrates, right greater than left. Minimal prominent appearing bilateral interstitial lung markings. IMPRESSION: 1. Mild congestive changes. 2. Bibasilar lung airspace opacities likely atelectasis or infiltrates. Follow-up to resolution. Electronically signed by: Jamie Webb MD (02/25/2018 7:10 PM) [facility]
[2018-02-25] MEDS ORDERED: ONDANSETRON PF 4 MG/2 ML VIAL. IV PRN (21:00)
[2018-02-25 23:15] VITALS: BP 99/49
[2018-02-25 23:30] VITALS: BP 96/49
[2018-02-25 23:45] VITALS: BP 96/50
[2018-02-26] VITALS: BP 98/51
[2018-02-26 03:50] VITALS: BP 107/82
--- NOTE | 2018-02-26 06:26 | EKG ---
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
[2018-02-26] MEDS ORDERED: POLYETHYLENE GLYCOL 3350 17 GM PACKET. PO PRN (09:00)
--- NOTE | 2018-02-26 11:26 | PDOC ---
PROGRESS NOTES History of Present Illness History of Present Illness Assessment/Plan Assessment/Plan Impression: ESRD needing dialysis emergentlu Hyperkalemia Generalized weakness Anemia NONCOMPLIANCE Tobacco abuse disorder fluid overload severe protein-caloric malnutrition DIABETES HTN ADMITTED consult nephrology wound care consult home meds cardiac monitoring iv dextrose, insulin hold narcotics ACCUCHECKS error not my pt today Vitals Vitals Vital Signs Date Time Temp Pulse Resp B/P (MAP) Pulse Ox O2 Delivery O2 Flow Rate FiO2 02/26/18 08:00 Nasal Cannula 2.0 02/26/18 03:50 98.8 62 11 107/82 (90) 95 98.8 Physical Exam General: Alert, Oriented X3, Cooperative, mild distress Heart: Regular rate Lungs: Clear, Other Abdomen: Normal bowel sounds, Soft Extremities: No cyanosis Labs LABS Laboratory Tests Test 02/25/18 18:05 White Blood Count 16.5 x10^3/uL (4.0-11.0) Red Blood Count 2.76 x10^6/uL (3.50-5.40) Hemoglobin 8.2 g/dL (12.0-15.5) Hematocrit 26.5 % (36.0-47.0) Mean Corpuscular Volume 96 fL (79-100) Mean Corpuscular Hemoglobin 30 pg (25-35) Mean Corpuscular Hemoglobin Concent 31 g/dL (31-37) Red Cell Distribution Width 19.0 % (11.5-14.5) Platelet Count 307 x10^3/uL (140-400) Neutrophils (%) (Auto) 86 % (31-73) Lymphocytes (%) (Auto) 7 % (24-48) Monocytes (%) (Auto) 6 % (0-9) Eosinophils (%) (Auto) 0 % (0-3) Basophils (%) (Auto) 1 % (0-3) Neutrophils # (Auto) 14.2 x10^3uL (1.8-7.7) Lymphocytes # (Auto) 1.2 x10^3/uL (1.0-4.8) Monocytes # (Auto) 1.0 x10^3/uL (0.0-1.1) Eosinophils # (Auto) 0.0 x10^3/uL (0.0-0.7) Basophils # (Auto) 0.1 x10^3/uL (0.0-0.2) Segmented Neutrophils % 89 % (35-66) Band Neutrophils % 2 % (0-9) Lymphocytes % 5 % (24-48) Monocytes % 4 % (0-10) Toxic Granulation Slight Platelet Estimate Adequate (ADEQUATE) Polychromasia Mod Anisocytosis Mod Schistocytes Few Sodium Level 136 mmol/L (136-145) Potassium Level 6.7 mmol/L (3.5-5.1) Chloride Level 98 mmol/L (98-107) Carbon Dioxide Level 21 mmol/L (21-32) Anion Gap 17 (6-14) Blood Urea Nitrogen 65 mg/dL (7-20) Creatinine 9.6 mg/dL (0.6-1.0) Estimated GFR (Cockcroft-Gault) 4.1 BUN/Creatinine Ratio 7 (6-20) Glucose Level 110 mg/dL (70-99) Calcium Level 9.3 mg/dL (8.5-10.1) Total Bilirubin 0.4 mg/dL (0.2-1.0) Aspartate Amino Transf (AST/SGOT) 91 U/L (15-37) Alanine Aminotransferase (ALT/SGPT) 52 U/L (14-59) Alkaline Phosphatase 151 U/L (46-116) QA-Iyu-V-Type Natriuretic Peptide > 41003 pg/mL (0-124) Total Protein 5.8 g/dL (6.4-8.2) Albumin 2.2 g/dL (3.4-5.0) Albumin/Globulin Ratio 0.6 (1.0-1.7) Assessment and Plan Assessmemt and Plan Problems Medical Problems: (1) Anemia Status: Acute (2) Generalized weakness Status: Acute (3) Hyperkalemia Status: Acute Comment Review of Relevant I have reviewed the following items ashley (where applicable) has been applied. Labs Laboratory Tests Test 02/25/18 18:05 White Blood Count 16.5 x10^3/uL (4.0-11.0) Red Blood Count 2.76 x10^6/uL (3.50-5.40) Hemoglobin 8.2 g/dL (12.0-15.5) Hematocrit 26.5 % (36.0-47.0) Mean Corpuscular Volume 96 fL (79-100) Mean Corpuscular Hemoglobin 30 pg (25-35) Mean Corpuscular Hemoglobin Concent 31 g/dL (31-37) Red Cell Distribution Width 19.0 % (11.5-14.5) Platelet Count 307 x10^3/uL (140-400) Neutrophils (%) (Auto) 86 % (31-73) Lymphocytes (%) (Auto) 7 % (24-48) Monocytes (%) (Auto) 6 % (0-9) Eosinophils (%) (Auto) 0 % (0-3) Basophils (%) (Auto) 1 % (0-3) Neutrophils # (Auto) 14.2 x10^3uL (1.8-7.7) Lymphocytes # (Auto) 1.2 x10^3/uL (1.0-4.8) Monocytes # (Auto) 1.0 x10^3/uL (0.0-1.1) Eosinophils # (Auto) 0.0 x10^3/uL (0.0-0.7) Basophils # (Auto) 0.1 x10^3/uL (0.0-0.2) Segmented Neutrophils % 89 % (35-66) Band Neutrophils % 2 % (0-9) Lymphocytes % 5 % (24-48) Monocytes % 4 % (0-10) Toxic Granulation Slight Platelet Estimate Adequate (ADEQUATE) Polychromasia Mod Anisocytosis Mod Schistocytes Few Sodium Level 136 mmol/L (136-145) Potassium Level 6.7 mmol/L (3.5-5.1) Chloride Level 98 mmol/L (98-107) Carbon Dioxide Level 21 mmol/L (21-32) Anion Gap 17 (6-14) Blood Urea Nitrogen 65 mg/dL (7-20) Creatinine 9.6 mg/dL (0.6-1.0) Estimated GFR (Cockcroft-Gault) 4.1 BUN/Creatinine Ratio 7 (6-20) Glucose Level 110 mg/dL (70-99) Calcium Level 9.3 mg/dL (8.5-10.1) Total Bilirubin 0.4 mg/dL (0.2-1.0) Aspartate Amino Transf (AST/SGOT) 91 U/L (15-37) Alanine Aminotransferase (ALT/SGPT) 52 U/L (14-59) Alkaline Phosphatase 151 U/L (46-116) PD-Mds-F-Type Natriuretic Peptide > 50094 pg/mL (0-124) Total Protein 5.8 g/dL (6.4-8.2) Albumin 2.2 g/dL (3.4-5.0) Albumin/Globulin Ratio 0.6 (1.0-1.7) Laboratory Tests Test 02/25/18 18:05 White Blood Count 16.5 x10^3/uL (4.0-11.0) Red Blood Count 2.76 x10^6/uL (3.50-5.40) Hemoglobin 8.2 g/dL (12.0-15.5) Hematocrit 26.5 % (36.0-47.0) Mean Corpuscular Volume 96 fL (79-100) Mean Corpuscular Hemoglobin 30 pg (25-35) Mean Corpuscular Hemoglobin Concent 31 g/dL (31-37) Red Cell Distribution Width 19.0 % (11.5-14.5) Platelet Count 307 x10^3/uL (140-400) Neutrophils (%) (Auto) 86 % (31-73) Lymphocytes (%) (Auto) 7 % (24-48) Monocytes (%) (Auto) 6 % (0-9) Eosinophils (%) (Auto) 0 % (0-3) Basophils (%) (Auto) 1 % (0-3) Neutrophils # (Auto) 14.2 x10^3uL (1.8-7.7) Lymphocytes # (Auto) 1.2 x10^3/uL (1.0-4.8) Monocytes # (Auto) 1.0 x10^3/uL (0.0-1.1) Eosinophils # (Auto) 0.0 x10^3/uL (0.0-0.7) Basophils # (Auto) 0.1 x10^3/uL (0.0-0.2) Segmented Neutrophils % 89 % (35-66) Band Neutrophils % 2 % (0-9) Lymphocytes % 5 % (24-48) Monocytes % 4 % (0-10) Toxic Granulation Slight Platelet Estimate Adequate (ADEQUATE) Polychromasia Mod Anisocytosis Mod Schistocytes Few Sodium Level 136 mmol/L (136-145) Potassium Level 6.7 mmol/L (3.5-5.1) Chloride Level 98 mmol/L (98-107) Carbon Dioxide Level 21 mmol/L (21-32) Anion Gap 17 (6-14) Blood Urea Nitrogen 65 mg/dL (7-20) Creatinine 9.6 mg/dL (0.6-1.0) Estimated GFR (Cockcroft-Gault) 4.1 BUN/Creatinine Ratio 7 (6-20) Glucose Level 110 mg/dL (70-99) Calcium Level 9.3 mg/dL (8.5-10.1) Total Bilirubin 0.4 mg/dL (0.2-1.0) Aspartate Amino Transf (AST/SGOT) 91 U/L (15-37) Alanine Aminotransferase (ALT/SGPT) 52 U/L (14-59) Alkaline Phosphatase 151 U/L (46-116) IB-Fcq-R-Type Natriuretic Peptide > 08988 pg/mL (0-124) Total Protein 5.8 g/dL (6.4-8.2) Albumin 2.2 g/dL (3.4-5.0) Albumin/Globulin Ratio 0.6 (1.0-1.7) Medications Current Medications Sodium Bicarbonate (Sodium Bicarb Adult 8.4% Syr) 50 meq 1X ONCE IV Last administered on 02/25/18at 19:16; Start 02/25/18 at 19:00; Stop 02/25/18 at 19:01 ; Status DC Calcium Gluconate (Calcium Gluconate) 1,000 mg 1X ONCE IVP Last administered on 02/25/18at 19:07; Start 02/25/18 at 19:00; Stop 02/25/18 at 19:01; Status DC Dextrose (Dextrose 50%-Water Syringe) 25 gm 1X ONCE IV Last administered on at 19:14; Start 02/25/18 at 19:00; Stop 02/25/18 at 19:01; Status DC Insulin Human Regular (HumuLIN R VIAL) 10 unit 1X ONCE IV Last administered on 02/25/18at 19:13; Start 02/25/18 at 19:00; Stop 02/25/18 at 19:01; Status DC Albuterol Sulfate (Ventolin Neb Soln) 10 mg 1X ONCE CONT NEB ; Start 02/25/18 at 19:00; Stop 02/25/18 at 19:01; Status DC Ondansetron HCl (Zofran) 4 mg PRN Q8HRS PRN IV NAUSEA/VOMITING; Start 02/25/18 at 21:00; Stop 02/26/18 at 20:59 Aspirin (Ecotrin) 81 mg QHS PO ; Start 02/26/18 at 21:00 Carvedilol (Coreg) 3.125 mg BIDWMEALS PO ; Start 02/26/18 at 08:00 Cinacalcet (Sensipar) 30 mg QHS PO ; Start 02/26/18 at 21:00 Clopidogrel Bisulfate (Plavix) 75 mg QHS PO ; Start 02/26/18 at 21:00 Polyethylene Glycol (miraLAX PACKET) 17 gm PRN DAILY PRN PO CONSTIPATION 1ST CHOICE; Start 02/26/18 at 09:00 Vitamin B Complex/ Vitamin C (Alayna-Oneil) 1 tab DAILY PO ; Start 02/26/18 at 09: 00 Active Scripts Active FENTANYL 25mcg/hr (Fentanyl) 1 Each Patch.td72 1 Patch TD Q3DAYS 30 Days Atorvastatin Calcium 10 Mg Tablet 10 Mg PO QHS 30 Days Carvedilol (Carvedilol) 3.125 Mg Tablet 3.125 Mg PO BIDWMEALS Reported [place] 10-325 Tablet (Acetaminophen/Hydrocodone Bitart) 1 Each Tablet 1 Tab PO Q4 -6HRS Polyethylene Glycol 3350 17 Gm Powd.pack 17 Gm PO PRN DAILY PRN Sertraline Hcl 50 Mg Tablet 50 Mg PO QHS Sensipar (Cinacalcet Hcl) 30 Mg Tablet 1 Tab PO QHS Alayna-Oneil Rx Tablet (Vit B Cmplx 3/Fa/Vit C/Biotin) 1 Each Tablet 1 Each PO DAILY Cranberry Plus Vitamin C Sftgl (Cranberry Conc/Ascorbic Acid) 1 Each Capsule 1 Each PO QHS Alprazolam 0.25 Mg Tablet 1 Tab PO DAILY PRN Plavix (Clopidogrel Bisulfate) 75 Mg Tablet 75 Mg PO QHS Calcium Acetate 667 Mg Tablet 2 Tab PO TIDWMEALS Tylenol Extra Strength (Acetaminophen) 500 Mg Tablet 500 Mg PO PRN Q12HRS PRN Gabapentin (Gabapentin) 300 Mg Capsule 300 Mg PO QHS Benadryl Allergy (Diphenhydramine Hcl) 25 Mg Tablet 25 Mg PO PRN not given in the hospital Aspir 81 (Aspirin) 81 Mg Tablet.dr 81 Mg PO QHS Vitals/I & O Vital Sign - Last 24 Hours 02/25/18 02/25/18 02/25/18 02/25/18 18:00 19:00 20:00 20:30 Temp 99.1 99.1 Pulse 73 76 77 72 Resp 20 20 14 16 B/P (MAP) 121/84 (96) 138/63 (88) 128/60 (82) 121/57 (78) Pulse Ox 99 100 98 100 O2 Delivery Nasal Cannula Nasal Cannula Nasal Cannula Nasal Cannula O2 Flow Rate 2.0 2.0 2.0 2.0 02/25/18 02/25/18 02/25/18 02/25/18 21:30 22:30 23:00 23:15 Temp 100.7 100.7 Pulse 73 73 72 68 Resp 18 18 18 14 B/P (MAP) 123/58 (79) 117/64 (81) 112/57 (75) 99/49 (66) Pulse Ox 97 100 100 100 O2 Delivery Nasal Cannula Nasal Cannula Nasal Cannula Nasal Cannula O2 Flow Rate 2.0 2.0 2.0 2.0 02/25/18 02/25/18 02/25/18 02/26/18 23:30 23:30 23:45 00:00 Pulse 66 68 66 Resp 12 13 12 B/P (MAP) 96/49 (65) 96/50 (65) 98/51 (67) Pulse Ox 100 100 91 O2 Delivery Nasal Cannula Nasal Cannula Nasal Cannula Nasal Cannula O2 Flow Rate 2.0 2.0 2.0 2.0 02/26/18 02/26/18 03:50 08:00 Temp 98.8 98.8 Pulse 62 Resp 11 B/P (MAP) 107/82 (90) Pulse Ox 95 O2 Delivery Nasal Cannula Nasal Cannula O2 Flow Rate 2.0 2.0 Intake and Output 02/25/18 02/25/18 02/26/18 15:00 23:00 07:00 Output Total 0 ml Balance 0 ml ROLAND ELLIOTT MD Feb 26, 2018 11:26
--- NOTE | 2018-02-26 11:49 | PDOC ---
PROGRESS NOTES Chief Complaint Chief Complaint ESRD needing dialysis emergently Hyperkalemia Generalized weakness Anemia NONCOMPLIANCE Tobacco abuse disorder fluid overload severe protein-caloric malnutrition DIABETES HTN History of Present Illness History of Present Illness Pt seen and examined VSS Seems depressed Vitals Vitals Vital Signs Date Time Temp Pulse Resp B/P (MAP) Pulse Ox O2 Delivery O2 Flow Rate FiO2 02/26/18 08:00 Nasal Cannula 2.0 02/26/18 03:50 98.8 62 11 107/82 (90) 95 98.8 Physical Exam General: Alert, Oriented X3, Cooperative, mild distress Heart: Regular rate, Normal S1, Normal S2 Lungs: Clear, Other Abdomen: Normal bowel sounds, Soft Extremities: No clubbing, No cyanosis Labs LABS Laboratory Tests Test 02/25/18 18:05 02/26/18 11:34 White Blood Count 16.5 x10^3/uL (4.0-11.0) Red Blood Count 2.76 x10^6/uL (3.50-5.40) Hemoglobin 8.2 g/dL (12.0-15.5) Hematocrit 26.5 % (36.0-47.0) Mean Corpuscular Volume 96 fL (79-100) Mean Corpuscular Hemoglobin 30 pg (25-35) Mean Corpuscular Hemoglobin Concent 31 g/dL (31-37) Red Cell Distribution Width 19.0 % (11.5-14.5) Platelet Count 307 x10^3/uL (140-400) Neutrophils (%) (Auto) 86 % (31-73) Lymphocytes (%) (Auto) 7 % (24-48) Monocytes (%) (Auto) 6 % (0-9) Eosinophils (%) (Auto) 0 % (0-3) Basophils (%) (Auto) 1 % (0-3) Neutrophils # (Auto) 14.2 x10^3uL (1.8-7.7) Lymphocytes # (Auto) 1.2 x10^3/uL (1.0-4.8) Monocytes # (Auto) 1.0 x10^3/uL (0.0-1.1) Eosinophils # (Auto) 0.0 x10^3/uL (0.0-0.7) Basophils # (Auto) 0.1 x10^3/uL (0.0-0.2) Segmented Neutrophils % 89 % (35-66) Band Neutrophils % 2 % (0-9) Lymphocytes % 5 % (24-48) Monocytes % 4 % (0-10) Toxic Granulation Slight Platelet Estimate Adequate (ADEQUATE) Polychromasia Mod Anisocytosis Mod Schistocytes Few Sodium Level 136 mmol/L (136-145) Potassium Level 6.7 mmol/L (3.5-5.1) Chloride Level 98 mmol/L (98-107) Carbon Dioxide Level 21 mmol/L (21-32) Anion Gap 17 (6-14) Blood Urea Nitrogen 65 mg/dL (7-20) Creatinine 9.6 mg/dL (0.6-1.0) Estimated GFR (Cockcroft-Gault) 4.1 BUN/Creatinine Ratio 7 (6-20) Glucose Level 110 mg/dL (70-99) Calcium Level 9.3 mg/dL (8.5-10.1) Total Bilirubin 0.4 mg/dL (0.2-1.0) Aspartate Amino Transf (AST/SGOT) 91 U/L (15-37) Alanine Aminotransferase (ALT/SGPT) 52 U/L (14-59) Alkaline Phosphatase 151 U/L (46-116) DT-Nqd-E-Type Natriuretic Peptide > 46590 pg/mL (0-124) Total Protein 5.8 g/dL (6.4-8.2) Albumin 2.2 g/dL (3.4-5.0) Albumin/Globulin Ratio 0.6 (1.0-1.7) Glucose (Fingerstick) 66 mg/dL (70-99) Review of Systems Review of Systems co weakness co depression Assessment and Plan Assessmemt and Plan Problems Medical Problems: (1) Anemia Status: Acute (2) Generalized weakness Status: Acute (3) Hyperkalemia Status: Acute ESRD needing dialysis Hyperkalemia Generalized weakness Anemia NONCOMPLIANCE Tobacco abuse disorder fluid overload severe protein-caloric malnutrition DIABETES HTN Plan Dialysis daily foe now if Neph agrees wound care consult home meds cardiac monitoring iv dextrose, insulin hold narcotics ACCUCHECKS Comment Review of Relevant I have reviewed the following items ashley (where applicable) has been applied. Labs Laboratory Tests Test 02/25/18 18:05 02/26/18 11:34 White Blood Count 16.5 x10^3/uL (4.0-11.0) Red Blood Count 2.76 x10^6/uL (3.50-5.40) Hemoglobin 8.2 g/dL (12.0-15.5) Hematocrit 26.5 % (36.0-47.0) Mean Corpuscular Volume 96 fL (79-100) Mean Corpuscular Hemoglobin 30 pg (25-35) Mean Corpuscular Hemoglobin Concent 31 g/dL (31-37) Red Cell Distribution Width 19.0 % (11.5-14.5) Platelet Count 307 x10^3/uL (140-400) Neutrophils (%) (Auto) 86 % (31-73) Lymphocytes (%) (Auto) 7 % (24-48) Monocytes (%) (Auto) 6 % (0-9) Eosinophils (%) (Auto) 0 % (0-3) Basophils (%) (Auto) 1 % (0-3) Neutrophils # (Auto) 14.2 x10^3uL (1.8-7.7) Lymphocytes # (Auto) 1.2 x10^3/uL (1.0-4.8) Monocytes # (Auto) 1.0 x10^3/uL (0.0-1.1) Eosinophils # (Auto) 0.0 x10^3/uL (0.0-0.7) Basophils # (Auto) 0.1 x10^3/uL (0.0-0.2) Segmented Neutrophils % 89 % (35-66) Band Neutrophils % 2 % (0-9) Lymphocytes % 5 % (24-48) Monocytes % 4 % (0-10) Toxic Granulation Slight Platelet Estimate Adequate (ADEQUATE) Polychromasia Mod Anisocytosis Mod Schistocytes Few Sodium Level 136 mmol/L (136-145) Potassium Level 6.7 mmol/L (3.5-5.1) Chloride Level 98 mmol/L (98-107) Carbon Dioxide Level 21 mmol/L (21-32) Anion Gap 17 (6-14) Blood Urea Nitrogen 65 mg/dL (7-20) Creatinine 9.6 mg/dL (0.6-1.0) Estimated GFR (Cockcroft-Gault) 4.1 BUN/Creatinine Ratio 7 (6-20) Glucose Level 110 mg/dL (70-99) Calcium Level 9.3 mg/dL (8.5-10.1) Total Bilirubin 0.4 mg/dL (0.2-1.0) Aspartate Amino Transf (AST/SGOT) 91 U/L (15-37) Alanine Aminotransferase (ALT/SGPT) 52 U/L (14-59) Alkaline Phosphatase 151 U/L (46-116) GP-Zsh-L-Type Natriuretic Peptide > 15317 pg/mL (0-124) Total Protein 5.8 g/dL (6.4-8.2) Albumin 2.2 g/dL (3.4-5.0) Albumin/Globulin Ratio 0.6 (1.0-1.7) Glucose (Fingerstick) 66 mg/dL (70-99) Laboratory Tests Test 02/25/18 18:05 02/26/18 11:34 White Blood Count 16.5 x10^3/uL (4.0-11.0) Red Blood Count 2.76 x10^6/uL (3.50-5.40) Hemoglobin 8.2 g/dL (12.0-15.5) Hematocrit 26.5 % (36.0-47.0) Mean Corpuscular Volume 96 fL (79-100) Mean Corpuscular Hemoglobin 30 pg (25-35) Mean Corpuscular Hemoglobin Concent 31 g/dL (31-37) Red Cell Distribution Width 19.0 % (11.5-14.5) Platelet Count 307 x10^3/uL (140-400) Neutrophils (%) (Auto) 86 % (31-73) Lymphocytes (%) (Auto) 7 % (24-48) Monocytes (%) (Auto) 6 % (0-9) Eosinophils (%) (Auto) 0 % (0-3) Basophils (%) (Auto) 1 % (0-3) Neutrophils # (Auto) 14.2 x10^3uL (1.8-7.7) Lymphocytes # (Auto) 1.2 x10^3/uL (1.0-4.8) Monocytes # (Auto) 1.0 x10^3/uL (0.0-1.1) Eosinophils # (Auto) 0.0 x10^3/uL (0.0-0.7) Basophils # (Auto) 0.1 x10^3/uL (0.0-0.2) Segmented Neutrophils % 89 % (35-66) Band Neutrophils % 2 % (0-9) Lymphocytes % 5 % (24-48) Monocytes % 4 % (0-10) Toxic Granulation Slight Platelet Estimate Adequate (ADEQUATE) Polychromasia Mod Anisocytosis Mod Schistocytes Few Sodium Level 136 mmol/L (136-145) Potassium Level 6.7 mmol/L (3.5-5.1) Chloride Level 98 mmol/L (98-107) Carbon Dioxide Level 21 mmol/L (21-32) Anion Gap 17 (6-14) Blood Urea Nitrogen 65 mg/dL (7-20) Creatinine 9.6 mg/dL (0.6-1.0) Estimated GFR (Cockcroft-Gault) 4.1 BUN/Creatinine Ratio 7 (6-20) Glucose Level 110 mg/dL (70-99) Calcium Level 9.3 mg/dL (8.5-10.1) Total Bilirubin 0.4 mg/dL (0.2-1.0) Aspartate Amino Transf (AST/SGOT) 91 U/L (15-37) Alanine Aminotransferase (ALT/SGPT) 52 U/L (14-59) Alkaline Phosphatase 151 U/L (46-116) OC-Utp-Y-Type Natriuretic Peptide > 69476 pg/mL (0-124) Total Protein 5.8 g/dL (6.4-8.2) Albumin 2.2 g/dL (3.4-5.0) Albumin/Globulin Ratio 0.6 (1.0-1.7) Glucose (Fingerstick) 66 mg/dL (70-99) Medications Current Medications Sodium Bicarbonate (Sodium Bicarb Adult 8.4% Syr) 50 meq 1X ONCE IV Last administered on 02/25/18at 19:16; Start 02/25/18 at 19:00; Stop 02/25/18 at 19:01 ; Status DC Calcium Gluconate (Calcium Gluconate) 1,000 mg 1X ONCE IVP Last administered on 02/25/18at 19:07; Start 02/25/18 at 19:00; Stop 02/25/18 at 19:01; Status DC Dextrose (Dextrose 50%-Water Syringe) 25 gm 1X ONCE IV Last administered on at 19:14; Start 02/25/18 at 19:00; Stop 02/25/18 at 19:01; Status DC Insulin Human Regular (HumuLIN R VIAL) 10 unit 1X ONCE IV Last administered on 02/25/18at 19:13; Start 02/25/18 at 19:00; Stop 02/25/18 at 19:01; Status DC Albuterol Sulfate (Ventolin Neb Soln) 10 mg 1X ONCE CONT NEB ; Start 02/25/18 at 19:00; Stop 02/25/18 at 19:01; Status DC Ondansetron HCl (Zofran) 4 mg PRN Q8HRS PRN IV NAUSEA/VOMITING; Start 02/25/18 at 21:00; Stop 02/26/18 at 20:59 Aspirin (Ecotrin) 81 mg QHS PO ; Start 02/26/18 at 21:00 Carvedilol (Coreg) 3.125 mg BIDWMEALS PO ; Start 02/26/18 at 08:00 Cinacalcet (Sensipar) 30 mg QHS PO ; Start 02/26/18 at 21:00 Clopidogrel Bisulfate (Plavix) 75 mg QHS PO ; Start 02/26/18 at 21:00 Polyethylene Glycol (miraLAX PACKET) 17 gm PRN DAILY PRN PO CONSTIPATION 1ST CHOICE; Start 02/26/18 at 09:00 Vitamin B Complex/ Vitamin C (Alayna-Oneil) 1 tab DAILY PO ; Start 02/26/18 at 09: 00 Active Scripts Active FENTANYL 25mcg/hr (Fentanyl) 1 Each Patch.td72 1 Patch TD Q3DAYS 30 Days Atorvastatin Calcium 10 Mg Tablet 10 Mg PO QHS 30 Days Carvedilol (Carvedilol) 3.125 Mg Tablet 3.125 Mg PO BIDWMEALS Reported [place] 10-325 Tablet (Acetaminophen/Hydrocodone Bitart) 1 Each Tablet 1 Tab PO Q4 -6HRS Polyethylene Glycol 3350 17 Gm Powd.pack 17 Gm PO PRN DAILY PRN Sertraline Hcl 50 Mg Tablet 50 Mg PO QHS Sensipar (Cinacalcet Hcl) 30 Mg Tablet 1 Tab PO QHS Alayna-Oneil Rx Tablet (Vit B Cmplx 3/Fa/Vit C/Biotin) 1 Each Tablet 1 Each PO DAILY Cranberry Plus Vitamin C Sftgl (Cranberry Conc/Ascorbic Acid) 1 Each Capsule 1 Each PO QHS Alprazolam 0.25 Mg Tablet 1 Tab PO DAILY PRN Plavix (Clopidogrel Bisulfate) 75 Mg Tablet 75 Mg PO QHS Calcium Acetate 667 Mg Tablet 2 Tab PO TIDWMEALS Tylenol Extra Strength (Acetaminophen) 500 Mg Tablet 500 Mg PO PRN Q12HRS PRN Gabapentin (Gabapentin) 300 Mg Capsule 300 Mg PO QHS Benadryl Allergy (Diphenhydramine Hcl) 25 Mg Tablet 25 Mg PO PRN not given in the hospital Aspir 81 (Aspirin) 81 Mg Tablet.dr 81 Mg PO QHS Vitals/I & O Vital Sign - Last 24 Hours 02/25/18 02/25/18 02/25/18 02/25/18 18:00 19:00 20:00 20:30 Temp 99.1 99.1 Pulse 73 76 77 72 Resp 20 20 14 16 B/P (MAP) 121/84 (96) 138/63 (88) 128/60 (82) 121/57 (78) Pulse Ox 99 100 98 100 O2 Delivery Nasal Cannula Nasal Cannula Nasal Cannula Nasal Cannula O2 Flow Rate 2.0 2.0 2.0 2.0 02/25/18 02/25/18 02/25/18 02/25/18 21:30 22:30 23:00 23:15 Temp 100.7 100.7 Pulse 73 73 72 68 Resp 18 18 18 14 B/P (MAP) 123/58 (79) 117/64 (81) 112/57 (75) 99/49 (66) Pulse Ox 97 100 100 100 O2 Delivery Nasal Cannula Nasal Cannula Nasal Cannula Nasal Cannula O2 Flow Rate 2.0 2.0 2.0 2.0 02/25/18 02/25/18 02/25/18 02/26/18 23:30 23:30 23:45 00:00 Pulse 66 68 66 Resp 12 13 12 B/P (MAP) 96/49 (65) 96/50 (65) 98/51 (67) Pulse Ox 100 100 91 O2 Delivery Nasal Cannula Nasal Cannula Nasal Cannula Nasal Cannula O2 Flow Rate 2.0 2.0 2.0 2.0 02/26/18 02/26/18 03:50 08:00 Temp 98.8 98.8 Pulse 62 Resp 11 B/P (MAP) 107/82 (90) Pulse Ox 95 O2 Delivery Nasal Cannula Nasal Cannula O2 Flow Rate 2.0 2.0 Intake and Output 02/25/18 02/25/18 02/26/18 15:00 23:00 07:00 Output Total 0 ml Balance 0 ml DAVID BARLOW III DO Feb 26, 2018 11:49
[2018-02-26 12:18] VITALS: BP 123/34
[2018-02-26] MEDS: FOLIC/VIT B COMP W-C (RENAL) TABLET. PO SCH (12:43)
[2018-02-26] MEDS: CARVEDILOL 3.125 MG TABLET. PO SCH ×2 (12:43→21:05)
[2018-02-26] MEDS ORDERED: IV NORMAL SALINE 1000ML BAG 1,000 ML IV PRN ×2 (13:42)
[2018-02-26] MEDS ORDERED: DIALYSIS PATIENT. MC PRN (13:45)
[2018-02-26] MEDS ORDERED: LIDOCAINE 2% PF 2ML VIAL. ID STA (14:46)
--- NOTE | 2018-02-26 15:16 | PDOC2 ---
PALLIATIVE CARE Palliative Care Note Palliative Care Patient awakens easily. Consult requested by Dr. Hoover to address "patient refusing dialysis" PhysicianElsa RN -nursing supv. and Mykel LANEdrapery maker staff have discussed in detail with the patient the importance of dialysis and following schedule for treatment. Confirmed with patient that she is wanting to continue with dialysis. Informed that if patient no longer wants to do dialysis , support for comfort care is available. Patient states she understands that if she wants to live than she has to do dialysis. Code Status: DNR/DNI. Does not want to sign outside the hospital form now. Wants more clarification about intubation. KINJAL ROBBINS Feb 26, 2018 15:16
[2018-02-26 15:19] LABS: BASO # 0.1 x10^3/uL (0.0-0.2); BASO % 1 % (0-3); EOS % 0 % (0-3); HEMATOCRIT 21.2 % (36.0-47.0); HEMOGLOBIN 7.1 g/dL (12.0-15.5); LYMPH # 0.7 x10^3/uL (1.0-4.8); LYMPH % 10 % (24-48); MEAN CORPUSCULAR HEMOGLOBIN 31 pg (25-35); MEAN CORPUSCULAR HGB CONC 34 g/dL (31-37); MEAN CORPUSCULAR VOLUME 93 fL (79-100); MONO # 0.5 x10^3/uL (0.0-1.1); MONO % 6 % (0-9); NEUT # 6.4 x10^3uL (1.8-7.7); NEUT % 83 % (31-73); PLATELET COUNT 238 x10^3/uL (140-400); RED BLOOD COUNT 2.29 x10^6/uL (3.50-5.40); WHITE BLOOD COUNT 7.8 x10^3/uL (4.0-11.0)
[2018-02-26 15:29] LABS: CALCIUM 8.6 mg/dL (8.5-10.1); CREATININE 8.5 mg/dL (0.6-1.0); GFR 4.7; POTASSIUM 5.9 mmol/L (3.5-5.1)
--- NOTE | 2018-02-26 16:36 | PDOC2 ---
CONSULT Date of Consult Date of Consult DATE: 02/26/18 TIME: 16:30 Reason for Consult Reason for Consult: ESRD, non compliance Source Source: Chart review, Patient History of Present Illness Reason for Visit: Pt is 68 yo CF , multiple Hospitalizations , ESRD , noncompliant on hemodialysis presents with generalized weakness and fatigue, she has not had dialysis in over a week. in the hospital recently secondary to a wound on her lower extremity. She is currently being treated with a wound VAC She states she has not had dialysis in over a week. still smoking . No N/V. No CP/SOB. reports last HD was Probably Thursday, Not sure Past Medical History Cardiovascular: CAD, HTN, Hyperlipidemia, Valve insufficiency, Other Pulmonary: COPD CENTRAL NERVOUS SYSTEM: Other Heme/Onc: Anemia NOS Psych: Depression Musculoskeletal: Other Rheumatologic: No pertinent hx Infectious disease: Other Renal/: Chronic renal insuff, Chronic renal failure, Other Endocrine: Diabetes, Hyperparathyroidism Dermatology: Eczema Past Surgical History Past Surgical History: Arthroscopy, Cholecystectomy, Tonsillectomy, Hysterectomy, Other Family History Family History: Diabetes, Hypertension Social History <1 pack per day ALCOHOL: rare Drugs: None Lives: with Family Current Problem List Problem List Problems Medical Problems: (1) Anemia Status: Acute (2) Generalized weakness Status: Acute (3) Hyperkalemia Status: Acute Current Medications Current Medications Current Medications Sodium Bicarbonate (Sodium Bicarb Adult 8.4% Syr) 50 meq 1X ONCE IV Last administered on 02/25/18at 19:16; Start 02/25/18 at 19:00; Stop 02/25/18 at 19:01 ; Status DC Calcium Gluconate (Calcium Gluconate) 1,000 mg 1X ONCE IVP Last administered on 02/25/18at 19:07; Start 02/25/18 at 19:00; Stop 02/25/18 at 19:01; Status DC Dextrose (Dextrose 50%-Water Syringe) 25 gm 1X ONCE IV Last administered on at 19:14; Start 02/25/18 at 19:00; Stop 02/25/18 at 19:01; Status DC Insulin Human Regular (HumuLIN R VIAL) 10 unit 1X ONCE IV Last administered on 02/25/18at 19:13; Start 02/25/18 at 19:00; Stop 02/25/18 at 19:01; Status DC Albuterol Sulfate (Ventolin Neb Soln) 10 mg 1X ONCE CONT NEB ; Start 02/25/18 at 19:00; Stop 02/25/18 at 19:01; Status DC Ondansetron HCl (Zofran) 4 mg PRN Q8HRS PRN IV NAUSEA/VOMITING; Start 02/25/18 at 21:00; Stop 02/26/18 at 20:59 Aspirin (Ecotrin) 81 mg QHS PO ; Start 02/26/18 at 21:00 Carvedilol (Coreg) 3.125 mg BIDWMEALS PO Last administered on 02/26/18at 12:43; Start 02/26/18 at 08:00 Cinacalcet (Sensipar) 30 mg QHS PO ; Start 02/26/18 at 21:00 Clopidogrel Bisulfate (Plavix) 75 mg QHS PO ; Start 02/26/18 at 21:00 Polyethylene Glycol (miraLAX PACKET) 17 gm PRN DAILY PRN PO CONSTIPATION 1ST CHOICE; Start 02/26/18 at 09:00 Vitamin B Complex/ Vitamin C (Alayna-Oneil) 1 tab DAILY PO Last administered on at 12:43; Start 02/26/18 at 09:00 Sodium Chloride 1,000 ml @ 1,000 mls/hr Q1H PRN IV hypotension; Start 02/26/18 at 13:42; Stop 02/26/18 at 19:41 Sodium Chloride 1,000 ml @ 400 mls/hr Q2H30M PRN IV PATENCY; Start 02/26/18 at 13:42; Stop 02/27/18 at 01:41 Info (PHARMACY MONITORING -- do not chart) 1 each PRN DAILY PRN MC SEE COMMENTS ; Start 02/26/18 at 13:45 Lidocaine HCl (Xylocaine-Mpf 2% Vial) 0.5 ml 1X STAT ID Last administered on 02/26/18at 14:58; Start 02/26/18 at 14:46; Stop 02/26/18 at 14:50; Status DC Active Scripts Active FENTANYL 25mcg/hr (Fentanyl) 1 Each Patch.td72 1 Patch TD Q3DAYS 30 Days Atorvastatin Calcium 10 Mg Tablet 10 Mg PO QHS 30 Days Carvedilol (Carvedilol) 3.125 Mg Tablet 3.125 Mg PO BIDWMEALS Reported [place] 10-325 Tablet (Acetaminophen/Hydrocodone Bitart) 1 Each Tablet 1 Tab PO Q4 -6HRS Polyethylene Glycol 3350 17 Gm Powd.pack 17 Gm PO PRN DAILY PRN Sertraline Hcl 50 Mg Tablet 50 Mg PO QHS Sensipar (Cinacalcet Hcl) 30 Mg Tablet 1 Tab PO QHS Alayna-Oneil Rx Tablet (Vit B Cmplx 3/Fa/Vit C/Biotin) 1 Each Tablet 1 Each PO DAILY Cranberry Plus Vitamin C Sftgl (Cranberry Conc/Ascorbic Acid) 1 Each Capsule 1 Each PO QHS Alprazolam 0.25 Mg Tablet 1 Tab PO DAILY PRN Plavix (Clopidogrel Bisulfate) 75 Mg Tablet 75 Mg PO QHS Calcium Acetate 667 Mg Tablet 2 Tab PO TIDWMEALS Tylenol Extra Strength (Acetaminophen) 500 Mg Tablet 500 Mg PO PRN Q12HRS PRN Gabapentin (Gabapentin) 300 Mg Capsule 300 Mg PO QHS Benadryl Allergy (Diphenhydramine Hcl) 25 Mg Tablet 25 Mg PO PRN not given in the hospital Aspir 81 (Aspirin) 81 Mg Tablet.dr 81 Mg PO QHS Allergies Allergies: Coded Allergies: ciprofloxacin (Verified Allergy, Intermediate, Rash, 05/08/17) morphine (Verified Adverse Reaction, Severe, makes her skin crawl, 05/08/17 ) oxycodone (Verified Adverse Reaction, Severe, makes her skin crawl, ) adhesive (Verified Adverse Reaction, Intermediate, blisters, 05/08/17) "use paper tape" ROS Review of System As per HPI Physical Exam Physical Exam General: Alert, Oriented X3 HEENT: PERRLA Lungs: Clear to auscultation Heart: RRR, no thrills Abdomen: Normal bowel sounds, Soft Extremities: No edema Neuro: Normal speech, Cranial nerves 3-12 NL Gu no ascencio Vital Signs Vital Signs Date Time Temp Pulse Resp B/P (MAP) Pulse Ox O2 Delivery O2 Flow Rate FiO2 02/26/18 12:43 62 123/34 02/26/18 12:18 98.1 20 94 Room Air 98.1 02/26/18 08:00 2.0 Assessment & Plan ESRD - TTS- Dr. Blancas Last HD ? 1 week back Chronic Non Compliance She has agreed to Cooperate and wants to Continue with Dialysis Seen on HD, tolerating well , Continue as Ordered Hyperkalemia- Recd Kayexalate HD today Generalized weakness/Fatigue Anemia- Aranesp as Ordered Labs Labs Laboratory Tests Test 02/25/18 18:05 02/26/18 00:01 02/26/18 11:34 02/26/18 15:00 White Blood Count 16.5 x10^3/uL (4.0-11.0) 7.8 x10^3/uL (4.0-11.0) Red Blood Count 2.76 x10^6/uL (3.50-5.40) 2.29 x10^6/uL (3.50-5.40) Hemoglobin 8.2 g/dL (12.0-15.5) 7.1 g/dL (12.0-15.5) Hematocrit 26.5 % (36.0-47.0) 21.2 % (36.0-47.0) Mean Corpuscular Volume 96 fL (79-100) 93 fL (79-100) Mean Corpuscular Hemoglobin 30 pg (25-35) 31 pg (25-35) Mean Corpuscular Hemoglobin Concent 31 g/dL (31-37) 34 g/dL (31-37) Red Cell Distribution Width 19.0 % (11.5-14.5) 19.0 % (11.5-14.5) Platelet Count 307 x10^3/uL (140-400) 238 x10^3/uL (140-400) Neutrophils (%) (Auto) 86 % (31-73) 83 % (31-73) Lymphocytes (%) (Auto) 7 % (24-48) 10 % (24-48) Monocytes (%) (Auto) 6 % (0-9) 6 % (0-9) Eosinophils (%) (Auto) 0 % (0-3) 0 % (0-3) Basophils (%) (Auto) 1 % (0-3) 1 % (0-3) Neutrophils # (Auto) 14.2 x10^3uL (1.8-7.7) 6.4 x10^3uL (1.8-7.7) Lymphocytes # (Auto) 1.2 x10^3/uL (1.0-4.8) 0.7 x10^3/uL (1.0-4.8) Monocytes # (Auto) 1.0 x10^3/uL (0.0-1.1) 0.5 x10^3/uL (0.0-1.1) Eosinophils # (Auto) 0.0 x10^3/uL (0.0-0.7) 0.0 x10^3/uL (0.0-0.7) Basophils # (Auto) 0.1 x10^3/uL (0.0-0.2) 0.1 x10^3/uL (0.0-0.2) Segmented Neutrophils % 89 % (35-66) Band Neutrophils % 2 % (0-9) Lymphocytes % 5 % (24-48) Monocytes % 4 % (0-10) Toxic Granulation Slight Platelet Estimate Adequate (ADEQUATE) Polychromasia Mod Anisocytosis Mod Schistocytes Few Sodium Level 136 mmol/L (136-145) 136 mmol/L (136-145) Potassium Level 6.7 mmol/L (3.5-5.1) 5.9 mmol/L (3.5-5.1) Chloride Level 98 mmol/L (98-107) 100 mmol/L (98-107) Carbon Dioxide Level 21 mmol/L (21-32) 23 mmol/L (21-32) Anion Gap 17 (6-14) 13 (6-14) Blood Urea Nitrogen 65 mg/dL (7-20) 59 mg/dL (7-20) Creatinine 9.6 mg/dL (0.6-1.0) 8.5 mg/dL (0.6-1.0) Estimated GFR (Cockcroft-Gault) 4.1 4.7 BUN/Creatinine Ratio 7 (6-20) Glucose Level 110 mg/dL (70-99) 99 mg/dL (70-99) Calcium Level 9.3 mg/dL (8.5-10.1) 8.6 mg/dL (8.5-10.1) Total Bilirubin 0.4 mg/dL (0.2-1.0) Aspartate Amino Transf (AST/SGOT) 91 U/L (15-37) Alanine Aminotransferase (ALT/SGPT) 52 U/L (14-59) Alkaline Phosphatase 151 U/L (46-116) UH-Cfa-N-Type Natriuretic Peptide > 09274 pg/mL (0-124) Total Protein 5.8 g/dL (6.4-8.2) Albumin 2.2 g/dL (3.4-5.0) Albumin/Globulin Ratio 0.6 (1.0-1.7) Nasal Screen MRSA (PCR) Negative (Negative) Glucose (Fingerstick) 66 mg/dL (70-99) Laboratory Tests Test 02/25/18 18:05 02/26/18 00:01 02/26/18 11:34 02/26/18 15:00 White Blood Count 16.5 x10^3/uL (4.0-11.0) 7.8 x10^3/uL (4.0-11.0) Red Blood Count 2.76 x10^6/uL (3.50-5.40) 2.29 x10^6/uL (3.50-5.40) Hemoglobin 8.2 g/dL (12.0-15.5) 7.1 g/dL (12.0-15.5) Hematocrit 26.5 % (36.0-47.0) 21.2 % (36.0-47.0) Mean Corpuscular Volume 96 fL (79-100) 93 fL (79-100) Mean Corpuscular Hemoglobin 30 pg (25-35) 31 pg (25-35) Mean Corpuscular Hemoglobin Concent 31 g/dL (31-37) 34 g/dL (31-37) Red Cell Distribution Width 19.0 % (11.5-14.5) 19.0 % (11.5-14.5) Platelet Count 307 x10^3/uL (140-400) 238 x10^3/uL (140-400) Neutrophils (%) (Auto) 86 % (31-73) 83 % (31-73) Lymphocytes (%) (Auto) 7 % (24-48) 10 % (24-48) Monocytes (%) (Auto) 6 % (0-9) 6 % (0-9) Eosinophils (%) (Auto) 0 % (0-3) 0 % (0-3) Basophils (%) (Auto) 1 % (0-3) 1 % (0-3) Neutrophils # (Auto) 14.2 x10^3uL (1.8-7.7) 6.4 x10^3uL (1.8-7.7) Lymphocytes # (Auto) 1.2 x10^3/uL (1.0-4.8) 0.7 x10^3/uL (1.0-4.8) Monocytes # (Auto) 1.0 x10^3/uL (0.0-1.1) 0.5 x10^3/uL (0.0-1.1) Eosinophils # (Auto) 0.0 x10^3/uL (0.0-0.7) 0.0 x10^3/uL (0.0-0.7) Basophils # (Auto) 0.1 x10^3/uL (0.0-0.2) 0.1 x10^3/uL (0.0-0.2) Segmented Neutrophils % 89 % (35-66) Band Neutrophils % 2 % (0-9) Lymphocytes % 5 % (24-48) Monocytes % 4 % (0-10) Toxic Granulation Slight Platelet Estimate Adequate (ADEQUATE) Polychromasia Mod Anisocytosis Mod Schistocytes Few Sodium Level 136 mmol/L (136-145) 136 mmol/L (136-145) Potassium Level 6.7 mmol/L (3.5-5.1) 5.9 mmol/L (3.5-5.1) Chloride Level 98 mmol/L (98-107) 100 mmol/L (98-107) Carbon Dioxide Level 21 mmol/L (21-32) 23 mmol/L (21-32) Anion Gap 17 (6-14) 13 (6-14) Blood Urea Nitrogen 65 mg/dL (7-20) 59 mg/dL (7-20) Creatinine 9.6 mg/dL (0.6-1.0) 8.5 mg/dL (0.6-1.0) Estimated GFR (Cockcroft-Gault) 4.1 4.7 BUN/Creatinine Ratio 7 (6-20) Glucose Level 110 mg/dL (70-99) 99 mg/dL (70-99) Calcium Level 9.3 mg/dL (8.5-10.1) 8.6 mg/dL (8.5-10.1) Total Bilirubin 0.4 mg/dL (0.2-1.0) Aspartate Amino Transf (AST/SGOT) 91 U/L (15-37) Alanine Aminotransferase (ALT/SGPT) 52 U/L (14-59) Alkaline Phosphatase 151 U/L (46-116) SF-Doh-G-Type Natriuretic Peptide > 33269 pg/mL (0-124) Total Protein 5.8 g/dL (6.4-8.2) Albumin 2.2 g/dL (3.4-5.0) Albumin/Globulin Ratio 0.6 (1.0-1.7) Nasal Screen MRSA (PCR) Negative (Negative) Glucose (Fingerstick) 66 mg/dL (70-99) Review All relevant outside records, renal labs, imaging studies, telemetry/EKG's were reviewed. JULIET DAVEY MD Feb 26, 2018 16:36
[2018-02-26 19:00] VITALS: BP 137/50
[2018-02-26] MEDS: CINACALCET HCL 30 MG TABLET PO SCH (21:05)
[2018-02-26] MEDS: ASPIRIN ENTERIC COATED 81 MG TABLET.DR. PO SCH (21:05)
[2018-02-26] MEDS: traMADol 50 MG TABLET PO PRN (21:05)
[2018-02-26] MEDS: CLOPIDOGREL BISULFATE 75 MG TABLET PO SCH (21:05)
[2018-02-26 23:00] VITALS: BP 103/38
[2018-02-27 03:13] VITALS: BP 90/40
[2018-02-27 07:38] LABS: BASO # 0.1 x10^3/uL (0.0-0.2); BASO % 1 % (0-3); EOS # 0.1 x10^3/uL (0.0-0.7); EOS % 1 % (0-3); HEMATOCRIT 22.7 % (36.0-47.0); HEMOGLOBIN 7.4 g/dL (12.0-15.5); LYMPH # 1.3 x10^3/uL (1.0-4.8); LYMPH % 16 % (24-48); MEAN CORPUSCULAR HEMOGLOBIN 31 pg (25-35); MEAN CORPUSCULAR HGB CONC 32 g/dL (31-37); MEAN CORPUSCULAR VOLUME 95 fL (79-100); MONO # 0.7 x10^3/uL (0.0-1.1); MONO % 9 % (0-9); NEUT % 74 % (31-73); PLATELET COUNT 194 x10^3/uL (140-400); RED CELL DISTRIBUTION WIDTH 20.9 % (11.5-14.5); WHITE BLOOD COUNT 8.1 x10^3/uL (4.0-11.0)
[2018-02-27 08:00] VITALS: BP 98/38
[2018-02-27] MEDS: CARVEDILOL 3.125 MG TABLET. PO SCH ×2 (08:00→16:22)
[2018-02-27 08:06] LABS: CALCIUM 8.1 mg/dL (8.5-10.1); CREATININE 6.7 mg/dL (0.6-1.0); GFR 6.2; MAGNESIUM 1.9 mg/dL (1.8-2.4); PHOSPHORUS 6.5 mg/dL (2.6-4.7); POTASSIUM 4.7 mmol/L (3.5-5.1)
--- NOTE | 2018-02-27 08:14 | PDOC2 ---
CONSULT Date of Consult Date of Consult DATE: 02/27/18 TIME: 08:13 Reason for Consult Reason for Consult: NSVT Referring Physician Referring Physician: Dr. Mcmahon Identification/Chief Complaint Chief Complaint Generalized fatigue Source Source: Chart review, Patient History of Present Illness Reason for Visit: 68-year-old female with history of coronary artery disease, ventricular tachycardia s/p ablation and AICD implantation and end-stage renal disease on hemodialysis presented with generalized fatigue and weakness. She apparently missed hemodialysis for one week. She complained of mild shortness of breath with exertion but denied any chest pain as such. She also denied any palpitations or syncope. Past Medical History Cardiovascular: CAD, HTN, Hyperlipidemia, Valve insufficiency, Other Pulmonary: COPD CENTRAL NERVOUS SYSTEM: Other Heme/Onc: Anemia NOS Psych: Depression Musculoskeletal: Other Rheumatologic: No pertinent hx Infectious disease: Other Renal/: Chronic renal insuff, Chronic renal failure, Other Endocrine: Diabetes, Hyperparathyroidism Dermatology: Eczema Past Surgical History Past Surgical History: Arthroscopy, Cholecystectomy, Tonsillectomy, Hysterectomy, Other Family History Family History: Diabetes, Hypertension Social History <1 pack per day ALCOHOL: rare Drugs: None Lives: with Family Current Problem List Problem List Problems Medical Problems: (1) Anemia Status: Acute (2) Generalized weakness Status: Acute (3) Hyperkalemia Status: Acute Current Medications Current Medications Current Medications Sodium Bicarbonate (Sodium Bicarb Adult 8.4% Syr) 50 meq 1X ONCE IV Last administered on 02/25/18at 19:16; Start 02/25/18 at 19:00; Stop 02/25/18 at 19:01 ; Status DC Calcium Gluconate (Calcium Gluconate) 1,000 mg 1X ONCE IVP Last administered on 02/25/18at 19:07; Start 02/25/18 at 19:00; Stop 02/25/18 at 19:01; Status DC Dextrose (Dextrose 50%-Water Syringe) 25 gm 1X ONCE IV Last administered on at 19:14; Start 02/25/18 at 19:00; Stop 02/25/18 at 19:01; Status DC Insulin Human Regular (HumuLIN R VIAL) 10 unit 1X ONCE IV Last administered on 02/25/18at 19:13; Start 02/25/18 at 19:00; Stop 02/25/18 at 19:01; Status DC Albuterol Sulfate (Ventolin Neb Soln) 10 mg 1X ONCE CONT NEB ; Start 02/25/18 at 19:00; Stop 02/25/18 at 19:01; Status DC Ondansetron HCl (Zofran) 4 mg PRN Q8HRS PRN IV NAUSEA/VOMITING; Start 02/25/18 at 21:00; Stop 02/26/18 at 20:59; Status DC Aspirin (Ecotrin) 81 mg QHS PO Last administered on 02/26/18at 21:05; Start 02/26/18 at 21:00 Carvedilol (Coreg) 3.125 mg BIDWMEALS PO Last administered on 02/26/18at 21:05; Start 02/26/18 at 08:00 Cinacalcet (Sensipar) 30 mg QHS PO Last administered on 02/26/18at 21:05; Start 02/26/18 at 21:00 Clopidogrel Bisulfate (Plavix) 75 mg QHS PO Last administered on 02/26/18at 21: 05; Start 02/26/18 at 21:00 Polyethylene Glycol (miraLAX PACKET) 17 gm PRN DAILY PRN PO CONSTIPATION 1ST CHOICE; Start 02/26/18 at 09:00 Vitamin B Complex/ Vitamin C (Alayna-Oneil) 1 tab DAILY PO Last administered on at 12:43; Start 02/26/18 at 09:00 Sodium Chloride 1,000 ml @ 1,000 mls/hr Q1H PRN IV hypotension; Start 02/26/18 at 13:42; Stop 02/26/18 at 19:41; Status DC Sodium Chloride 1,000 ml @ 400 mls/hr Q2H30M PRN IV PATENCY; Start 02/26/18 at 13:42; Stop 02/27/18 at 01:42; Status DC Info (PHARMACY MONITORING -- do not chart) 1 each PRN DAILY PRN MC SEE COMMENTS ; Start 02/26/18 at 13:45 Lidocaine HCl (Xylocaine-Mpf 2% Vial) 0.5 ml 1X STAT ID Last administered on 02/26/18at 14:58; Start 02/26/18 at 14:46; Stop 02/26/18 at 14:50; Status DC Tramadol HCl (Ultram) 50 mg PRN Q6HRS PRN PO PAIN Last administered on at 21:05; Start 02/26/18 at 20:00 Active Scripts Active FENTANYL 25mcg/hr (Fentanyl) 1 Each Patch.td72 1 Patch TD Q3DAYS 30 Days Atorvastatin Calcium 10 Mg Tablet 10 Mg PO QHS 30 Days Carvedilol (Carvedilol) 3.125 Mg Tablet 3.125 Mg PO BIDWMEALS Reported Bailey 10-325 Tablet (Acetaminophen/Hydrocodone Bitart) 1 Each Tablet 1 Tab PO Q4 -6HRS Polyethylene Glycol 3350 17 Gm Powd.pack 17 Gm PO PRN DAILY PRN Sertraline Hcl 50 Mg Tablet 50 Mg PO QHS Sensipar (Cinacalcet Hcl) 30 Mg Tablet 1 Tab PO QHS Alayna-Oneil Rx Tablet (Vit B Cmplx 3/Fa/Vit C/Biotin) 1 Each Tablet 1 Each PO DAILY Cranberry Plus Vitamin C Sftgl (Cranberry Conc/Ascorbic Acid) 1 Each Capsule 1 Each PO QHS Alprazolam 0.25 Mg Tablet 1 Tab PO DAILY PRN Plavix (Clopidogrel Bisulfate) 75 Mg Tablet 75 Mg PO QHS Calcium Acetate 667 Mg Tablet 2 Tab PO TIDWMEALS Tylenol Extra Strength (Acetaminophen) 500 Mg Tablet 500 Mg PO PRN Q12HRS PRN Gabapentin (Gabapentin) 300 Mg Capsule 300 Mg PO QHS Benadryl Allergy (Diphenhydramine Hcl) 25 Mg Tablet 25 Mg PO PRN not given in the hospital Aspir 81 (Aspirin) 81 Mg Tablet.dr 81 Mg PO QHS Allergies Allergies: Coded Allergies: ciprofloxacin (Verified Allergy, Intermediate, Rash, 05/08/17) morphine (Verified Adverse Reaction, Severe, makes her skin crawl, 05/08/17 ) oxycodone (Verified Adverse Reaction, Severe, makes her skin crawl, ) adhesive (Verified Adverse Reaction, Intermediate, blisters, 05/08/17) "use paper tape" ROS General: YES: Fatigue, Malaise PSYCHOLOGICAL ROS: No: Hallucinations Eyes: No Loss of vision HEENT: No: Epistaxis Respiratory: YES: Shortness of breath; No: Cough Cardiovascular: No Chest Pain Gastrointestinal: No Vomiting, No Diarrhea Neurological: No Seizures Physical Exam General: Alert, Oriented X3 HEENT: Atraumatic, PERRLA Lungs: Clear to auscultation Heart: Regular rate Abdomen: Soft, No tenderness Extremities: Other (right ankle wound bandaged) Psych/Mental Status: Mood NL Vitals VITALS Vital Signs Date Time Temp Pulse Resp B/P (MAP) Pulse Ox O2 Delivery O2 Flow Rate FiO2 02/27/18 03:13 98.5 61 20 90/40 (57) 100 Nasal Cannula 98.5 02/26/18 20:55 2.0 Labs Labs Laboratory Tests Test 02/25/18 18:05 02/26/18 00:01 02/26/18 11:34 02/26/18 15:00 White Blood Count 16.5 x10^3/uL (4.0-11.0) 7.8 x10^3/uL (4.0-11.0) Red Blood Count 2.76 x10^6/uL (3.50-5.40) 2.29 x10^6/uL (3.50-5.40) Hemoglobin 8.2 g/dL (12.0-15.5) 7.1 g/dL (12.0-15.5) Hematocrit 26.5 % (36.0-47.0) 21.2 % (36.0-47.0) Mean Corpuscular Volume 96 fL (79-100) 93 fL (79-100) Mean Corpuscular Hemoglobin 30 pg (25-35) 31 pg (25-35) Mean Corpuscular Hemoglobin Concent 31 g/dL (31-37) 34 g/dL (31-37) Red Cell Distribution Width 19.0 % (11.5-14.5) 19.0 % (11.5-14.5) Platelet Count 307 x10^3/uL (140-400) 238 x10^3/uL (140-400) Neutrophils (%) (Auto) 86 % (31-73) 83 % (31-73) Lymphocytes (%) (Auto) 7 % (24-48) 10 % (24-48) Monocytes (%) (Auto) 6 % (0-9) 6 % (0-9) Eosinophils (%) (Auto) 0 % (0-3) 0 % (0-3) Basophils (%) (Auto) 1 % (0-3) 1 % (0-3) Neutrophils # (Auto) 14.2 x10^3uL (1.8-7.7) 6.4 x10^3uL (1.8-7.7) Lymphocytes # (Auto) 1.2 x10^3/uL (1.0-4.8) 0.7 x10^3/uL (1.0-4.8) Monocytes # (Auto) 1.0 x10^3/uL (0.0-1.1) 0.5 x10^3/uL (0.0-1.1) Eosinophils # (Auto) 0.0 x10^3/uL (0.0-0.7) 0.0 x10^3/uL (0.0-0.7) Basophils # (Auto) 0.1 x10^3/uL (0.0-0.2) 0.1 x10^3/uL (0.0-0.2) Segmented Neutrophils % 89 % (35-66) Band Neutrophils % 2 % (0-9) Lymphocytes % 5 % (24-48) Monocytes % 4 % (0-10) Toxic Granulation Slight Platelet Estimate Adequate (ADEQUATE) Polychromasia Mod Anisocytosis Mod Schistocytes Few Sodium Level 136 mmol/L (136-145) 136 mmol/L (136-145) Potassium Level 6.7 mmol/L (3.5-5.1) 5.9 mmol/L (3.5-5.1) Chloride Level 98 mmol/L (98-107) 100 mmol/L (98-107) Carbon Dioxide Level 21 mmol/L (21-32) 23 mmol/L (21-32) Anion Gap 17 (6-14) 13 (6-14) Blood Urea Nitrogen 65 mg/dL (7-20) 59 mg/dL (7-20) Creatinine 9.6 mg/dL (0.6-1.0) 8.5 mg/dL (0.6-1.0) Estimated GFR (Cockcroft-Gault) 4.1 4.7 BUN/Creatinine Ratio 7 (6-20) Glucose Level 110 mg/dL (70-99) 99 mg/dL (70-99) Calcium Level 9.3 mg/dL (8.5-10.1) 8.6 mg/dL (8.5-10.1) Total Bilirubin 0.4 mg/dL (0.2-1.0) Aspartate Amino Transf (AST/SGOT) 91 U/L (15-37) Alanine Aminotransferase (ALT/SGPT) 52 U/L (14-59) Alkaline Phosphatase 151 U/L (46-116) ON-Kdb-Q-Type Natriuretic Peptide > 19082 pg/mL (0-124) Total Protein 5.8 g/dL (6.4-8.2) Albumin 2.2 g/dL (3.4-5.0) Albumin/Globulin Ratio 0.6 (1.0-1.7) Nasal Screen MRSA (PCR) Negative (Negative) Glucose (Fingerstick) 66 mg/dL (70-99) Test 02/26/18 20:41 02/27/18 06:50 02/27/18 07:20 Glucose (Fingerstick) 125 mg/dL (70-99) 87 mg/dL (70-99) White Blood Count 8.1 x10^3/uL (4.0-11.0) Red Blood Count 2.40 x10^6/uL (3.50-5.40) Hemoglobin 7.4 g/dL (12.0-15.5) Hematocrit 22.7 % (36.0-47.0) Mean Corpuscular Volume 95 fL (79-100) Mean Corpuscular Hemoglobin 31 pg (25-35) Mean Corpuscular Hemoglobin Concent 32 g/dL (31-37) Red Cell Distribution Width 20.9 % (11.5-14.5) Platelet Count 194 x10^3/uL (140-400) Neutrophils (%) (Auto) 74 % (31-73) Lymphocytes (%) (Auto) 16 % (24-48) Monocytes (%) (Auto) 9 % (0-9) Eosinophils (%) (Auto) 1 % (0-3) Basophils (%) (Auto) 1 % (0-3) Neutrophils # (Auto) 6.0 x10^3uL (1.8-7.7) Lymphocytes # (Auto) 1.3 x10^3/uL (1.0-4.8) Monocytes # (Auto) 0.7 x10^3/uL (0.0-1.1) Eosinophils # (Auto) 0.1 x10^3/uL (0.0-0.7) Basophils # (Auto) 0.1 x10^3/uL (0.0-0.2) Laboratory Tests Test 02/26/18 11:34 02/26/18 15:00 02/26/18 20:41 02/27/18 06:50 Glucose (Fingerstick) 66 mg/dL (70-99) 125 mg/dL (70-99) White Blood Count 7.8 x10^3/uL (4.0-11.0) 8.1 x10^3/uL (4.0-11.0) Red Blood Count 2.29 x10^6/uL (3.50-5.40) 2.40 x10^6/uL (3.50-5.40) Hemoglobin 7.1 g/dL (12.0-15.5) 7.4 g/dL (12.0-15.5) Hematocrit 21.2 % (36.0-47.0) 22.7 % (36.0-47.0) Mean Corpuscular Volume 93 fL (79-100) 95 fL (79-100) Mean Corpuscular Hemoglobin 31 pg (25-35) 31 pg (25-35) Mean Corpuscular Hemoglobin Concent 34 g/dL (31-37) 32 g/dL (31-37) Red Cell Distribution Width 19.0 % (11.5-14.5) 20.9 % (11.5-14.5) Platelet Count 238 x10^3/uL (140-400) 194 x10^3/uL (140-400) Neutrophils (%) (Auto) 83 % (31-73) 74 % (31-73) Lymphocytes (%) (Auto) 10 % (24-48) 16 % (24-48) Monocytes (%) (Auto) 6 % (0-9) 9 % (0-9) Eosinophils (%) (Auto) 0 % (0-3) 1 % (0-3) Basophils (%) (Auto) 1 % (0-3) 1 % (0-3) Neutrophils # (Auto) 6.4 x10^3uL (1.8-7.7) 6.0 x10^3uL (1.8-7.7) Lymphocytes # (Auto) 0.7 x10^3/uL (1.0-4.8) 1.3 x10^3/uL (1.0-4.8) Monocytes # (Auto) 0.5 x10^3/uL (0.0-1.1) 0.7 x10^3/uL (0.0-1.1) Eosinophils # (Auto) 0.0 x10^3/uL (0.0-0.7) 0.1 x10^3/uL (0.0-0.7) Basophils # (Auto) 0.1 x10^3/uL (0.0-0.2) 0.1 x10^3/uL (0.0-0.2) Sodium Level 136 mmol/L (136-145) Potassium Level 5.9 mmol/L (3.5-5.1) Chloride Level 100 mmol/L (98-107) Carbon Dioxide Level 23 mmol/L (21-32) Anion Gap 13 (6-14) Blood Urea Nitrogen 59 mg/dL (7-20) Creatinine 8.5 mg/dL (0.6-1.0) Estimated GFR (Cockcroft-Gault) 4.7 Glucose Level 99 mg/dL (70-99) Calcium Level 8.6 mg/dL (8.5-10.1) Test 02/27/18 07:20 Glucose (Fingerstick) 87 mg/dL (70-99) Assessment/Plan Assessment/Plan 1. End-stage renal disease with missed dialysis presenting with hyperkalemia. Continue hemodialysis per nephrology team. 2. Mild acute on chronic diastolic heart failure probably from missed HD. Recent 2-D echo showed LVEF 50-55%. Continue fluid removal with dialysis. 3. Non-STEMI most of the type 2/demand ischemia in a patient with known history of Coronary artery disease. Recent cardiac catheterization 02/14/18 showed patent stent in LAD, 60% in-stent restenosis in the RCA and diffuse disease involving a small-caliber LCx, managed medically. 4. Nonsustained ventricular tachycardia noted on telemetry appears to be secondary to spontaneous threshold checks by the device itself. Patient has AICD placed in the past for recurrent ventricular tachycardia and actually had undergone ablation therapy as well. Recent device check showed normal function. No further cardiac workup is indicated at this time. 5. PAD with nonhealing wound right ankle being followed by vascular surgery. Possible consideration for right BKA. 6. Hypertension: Controlled 7. Hyperlipidemia: Statins Overall guarded prognosis. Palliative care team consulted. Thank you for your consultation. CARRIE STINSON MD Feb 27, 2018 08:13
[2018-02-27] MEDS ORDERED: IV NORMAL SALINE 1000ML BAG 1,000 ML IV PRN ×2 (08:41)
[2018-02-27] MEDS ORDERED: DIALYSIS PATIENT. MC PRN ×2 (08:45)
[2018-02-27] MEDS ORDERED: LIDOCAINE 2% PF Vial for OR 5 ML VIAL. IJ ONE (09:00)
[2018-02-27] MEDS ORDERED: LIDOCAINE 2% PF 2ML VIAL. INJ ONE (09:00)
[2018-02-27] MEDS: traMADol 50 MG TABLET PO PRN (09:07)
[2018-02-27] MEDS: FOLIC/VIT B COMP W-C (RENAL) TABLET. PO SCH (09:07)
[2018-02-27] MEDS ORDERED: ACETAMINOPHEN 325 MG TABLET. PO PRN (09:15)
[2018-02-27] MEDS ORDERED: VANCOMYCIN 2 GM in IV NORMAL SALINE 500ML BAG 500 ML IV ONE (09:15)
[2018-02-27] MEDS ORDERED: DOCUSATE SODIUM 100 MG CAPSULE. PO PRN (09:15)
[2018-02-27] MEDS ORDERED: HYDROcodone/APAP 10/325 1 TAB TABLET PO PRN (09:30)
[2018-02-27] MEDS: HYDROcodone/APAP 10/325 1 TAB TABLET PO PRN ×2 (09:41→21:19)
--- NOTE | 2018-02-27 11:01 | PDOC2 ---
CONSULT Date of Consult Date of Consult DATE: 02/27/18 TIME: 10:53 Reason for Consult Reason for Consult: Right lower extremity wound History of Present Illness Reason for Visit: This is a pleasant 68-year-old female who is well known to our service who had a right lower extremity debridement by . This is demonstrating poor wound healing and associated cellulitis. We were asked to see the patient in regards to this. Apparently the patient has been markedly noncompliant with her healthcare including missing dialysis appointments. Patient was receiving negative pressure VAC therapy to the wound but this is been discontinued due to the associated cellulitis and evidence of poor wound healing. The patient states that she underwent a procedure with a left femoral puncture but cannot recall what that was related to. He did have a heart catheter last month. This puncture site could be related to that. Past Medical History Cardiovascular: CAD, HTN, Hyperlipidemia, Valve insufficiency, Other Pulmonary: COPD CENTRAL NERVOUS SYSTEM: Other Heme/Onc: Anemia NOS Psych: Depression Musculoskeletal: Other Rheumatologic: No pertinent hx Infectious disease: Other Renal/: Chronic renal insuff, Chronic renal failure, Other Endocrine: Diabetes, Hyperparathyroidism Dermatology: Eczema Past Surgical History Past Surgical History: Arthroscopy, Cholecystectomy, Tonsillectomy, Hysterectomy, Other Family History Family History: Diabetes, Hypertension Social History <1 pack per day ALCOHOL: rare Drugs: None Lives: with Family Current Problem List Problem List Problems Medical Problems: (1) Anemia Status: Acute (2) Generalized weakness Status: Acute (3) Hyperkalemia Status: Acute Current Medications Current Medications Current Medications Sodium Bicarbonate (Sodium Bicarb Adult 8.4% Syr) 50 meq 1X ONCE IV Last administered on 02/25/18at 19:16; Start 02/25/18 at 19:00; Stop 02/25/18 at 19:01 ; Status DC Calcium Gluconate (Calcium Gluconate) 1,000 mg 1X ONCE IVP Last administered on 02/25/18at 19:07; Start 02/25/18 at 19:00; Stop 02/25/18 at 19:01; Status DC Dextrose (Dextrose 50%-Water Syringe) 25 gm 1X ONCE IV Last administered on at 19:14; Start 02/25/18 at 19:00; Stop 02/25/18 at 19:01; Status DC Insulin Human Regular (HumuLIN R VIAL) 10 unit 1X ONCE IV Last administered on 02/25/18at 19:13; Start 02/25/18 at 19:00; Stop 02/25/18 at 19:01; Status DC Albuterol Sulfate (Ventolin Neb Soln) 10 mg 1X ONCE CONT NEB ; Start 02/25/18 at 19:00; Stop 02/25/18 at 19:01; Status DC Ondansetron HCl (Zofran) 4 mg PRN Q8HRS PRN IV NAUSEA/VOMITING; Start 02/25/18 at 21:00; Stop 02/26/18 at 20:59; Status DC Aspirin (Ecotrin) 81 mg QHS PO Last administered on 02/26/18at 21:05; Start 02/26/18 at 21:00 Carvedilol (Coreg) 3.125 mg BIDWMEALS PO Last administered on 02/26/18at 21:05; Start 02/26/18 at 08:00 Cinacalcet (Sensipar) 30 mg QHS PO Last administered on 02/26/18at 21:05; Start 02/26/18 at 21:00 Clopidogrel Bisulfate (Plavix) 75 mg QHS PO Last administered on 02/26/18at 21: 05; Start 02/26/18 at 21:00 Polyethylene Glycol (miraLAX PACKET) 17 gm PRN DAILY PRN PO CONSTIPATION 1ST CHOICE; Start 02/26/18 at 09:00 Vitamin B Complex/ Vitamin C (Alayna-Oneil) 1 tab DAILY PO Last administered on at 09:07; Start 02/26/18 at 09:00 Sodium Chloride 1,000 ml @ 1,000 mls/hr Q1H PRN IV hypotension; Start 02/26/18 at 13:42; Stop 02/26/18 at 19:41; Status DC Sodium Chloride 1,000 ml @ 400 mls/hr Q2H30M PRN IV PATENCY; Start 02/26/18 at 13:42; Stop 02/27/18 at 01:42; Status DC Info (PHARMACY MONITORING -- do not chart) 1 each PRN DAILY PRN MC SEE COMMENTS ; Start 02/26/18 at 13:45 Lidocaine HCl (Xylocaine-Mpf 2% Vial) 0.5 ml 1X STAT ID Last administered on 02/26/18at 14:58; Start 02/26/18 at 14:46; Stop 02/26/18 at 14:50; Status DC Tramadol HCl (Ultram) 50 mg PRN Q6HRS PRN PO PAIN Last administered on at 09:07; Start 02/26/18 at 20:00 Sodium Chloride 1,000 ml @ 1,000 mls/hr Q1H PRN IV hypotension; Start 02/27/18 at 08:41; Stop 02/27/18 at 14:40 Sodium Chloride 1,000 ml @ 400 mls/hr Q2H30M PRN IV PATENCY; Start 02/27/18 at 08:41; Stop 02/27/18 at 20:40 Info (PHARMACY MONITORING -- do not chart) 1 each PRN DAILY PRN MC SEE COMMENTS ; Start 02/27/18 at 08:45; Status UNV Info (PHARMACY MONITORING -- do not chart) 1 each PRN DAILY PRN MC SEE COMMENTS ; Start 02/27/18 at 08:45 Lidocaine HCl (Xylocaine-Mpf 2% Vial) 2 ml 1X ONCE INJ ; Start 02/27/18 at 09: 00; Stop 02/27/18 at 09:01; Status DC Lidocaine HCl (Lidocaine Pf 2% Vial) 5 ml 1X ONCE IJ ; Start 02/27/18 at 09:00 ; Stop 02/27/18 at 09:01; Status DC Alprazolam (Xanax) 0.25 mg PRN DAILY PRN PO ANXIETY / AGITATION; Start at 09:15 Atorvastatin Calcium (Lipitor) 10 mg QHS PO ; Start 02/27/18 at 21:00 Gabapentin (Neurontin) 300 mg QHS PO ; Start 02/27/18 at 21:00 Sertraline HCl (Zoloft) 50 mg QHS PO ; Start 02/27/18 at 21:00 Acetaminophen/ Hydrocodone Bitart (Lortab 10/325) 1 tab PRN Q6HRS PRN PO PAIN; Start 02/27/18 at 09:30; Stop 02/27/18 at 09:30; Status DC Vancomycin HCl 2 gm/Sodium Chloride 500 ml @ 250 mls/hr 1X ONCE IV ; Start at 09:15; Stop 02/27/18 at 11:14; Status UNV Vancomycin HCl (Vanco Per Pharmacy) 1 each PRN DAILY PRN MC SEE COMMENTS; Start 02/27/18 at 09:15 Acetaminophen (Tylenol) 650 mg PRN Q6HRS PRN PO FEVER; Start 02/27/18 at 09:15 Ondansetron HCl (Zofran) 4 mg PRN Q6HRS PRN IV NAUSEA/VOMITING; Start 02/27/18 at 09:15 Docusate Sodium (Colace) 100 mg PRN DAILY PRN PO CONSTIPATION; Start 02/27/18 at 09:15 Heparin Sodium (Porcine) (Heparin Sodium) 5,000 unit Q8HRS SQ ; Start 02/27/18 at 14:00 Acetaminophen/ Hydrocodone Bitart (Lortab 10/325) 1 tab PRN Q6HRS PRN PO PAIN Last administered on 02/27/18at 09:41; Start 02/27/18 at 09:30 Vancomycin HCl 1.75 gm/Sodium Chloride 500 ml @ 250 mls/hr 1X ONCE IV ; Start 02/27/18 at 12:00; Stop 02/27/18 at 13:59 Active Scripts Active FENTANYL 25mcg/hr (Fentanyl) 1 Each Patch.td72 1 Patch TD Q3DAYS 30 Days Atorvastatin Calcium 10 Mg Tablet 10 Mg PO QHS 30 Days Carvedilol (Carvedilol) 3.125 Mg Tablet 3.125 Mg PO BIDWMEALS Reported [place] 10-325 Tablet (Acetaminophen/Hydrocodone Bitart) 1 Each Tablet 1 Tab PO Q4 -6HRS Polyethylene Glycol 3350 17 Gm Powd.pack 17 Gm PO PRN DAILY PRN Sertraline Hcl 50 Mg Tablet 50 Mg PO QHS Sensipar (Cinacalcet Hcl) 30 Mg Tablet 1 Tab PO QHS Alanya-Oneil Rx Tablet (Vit B Cmplx 3/Fa/Vit C/Biotin) 1 Each Tablet 1 Each PO DAILY Cranberry Plus Vitamin C Sftgl (Cranberry Conc/Ascorbic Acid) 1 Each Capsule 1 Each PO QHS Alprazolam 0.25 Mg Tablet 1 Tab PO DAILY PRN Plavix (Clopidogrel Bisulfate) 75 Mg Tablet 75 Mg PO QHS Calcium Acetate 667 Mg Tablet 2 Tab PO TIDWMEALS Tylenol Extra Strength (Acetaminophen) 500 Mg Tablet 500 Mg PO PRN Q12HRS PRN Gabapentin (Gabapentin) 300 Mg Capsule 300 Mg PO QHS Benadryl Allergy (Diphenhydramine Hcl) 25 Mg Tablet 25 Mg PO PRN not given in the hospital Aspir 81 (Aspirin) 81 Mg Tablet. 81 Mg PO QHS Allergies Allergies: Coded Allergies: ciprofloxacin (Verified Allergy, Intermediate, Rash, 05/08/17) morphine (Verified Adverse Reaction, Severe, makes her skin crawl, 05/08/17 ) oxycodone (Verified Adverse Reaction, Severe, makes her skin crawl, ) adhesive (Verified Adverse Reaction, Intermediate, blisters, 05/08/17) "use paper tape" ROS Skin: Yes Other (right lower extremity wound) Physical Exam General: Alert, Oriented X3, Cooperative, No acute distress HEENT: Atraumatic, PERRLA, EOMI Lungs: Clear to auscultation, Normal air movement Heart: Regular rate, Normal S1, Normal S2, No murmurs Abdomen: Normal bowel sounds, Soft, No tenderness Extremities: Other (right lower extremity wound is located medially above the malleolus and has associated cellulitis and fibrinous debris occupying approximately 20% of the wound, the wound bed does not appear healthy and there is no significant elevated of granulation tissue, I was unable to locate any Doppler signals within the foot. She does have palpable femoral pulses bilaterally) Neuro: Strength at 5/5 X4 ext, Normal tone, Sensation intact, Cranial nerves 3- 12 NL Psych/Mental Status: Mental status NL, Mood NL Vitals VITALS Vital Signs Date Time Temp Pulse Resp B/P (MAP) Pulse Ox O2 Delivery O2 Flow Rate FiO2 02/27/18 10:07 Room Air 02/27/18 08:00 97.9 60 16 98/38 (58) 94 97.9 02/26/18 20:55 2.0 Labs Labs Laboratory Tests Test 02/25/18 18:05 02/26/18 00:01 02/26/18 11:34 02/26/18 15:00 White Blood Count 16.5 x10^3/uL (4.0-11.0) 7.8 x10^3/uL (4.0-11.0) Red Blood Count 2.76 x10^6/uL (3.50-5.40) 2.29 x10^6/uL (3.50-5.40) Hemoglobin 8.2 g/dL (12.0-15.5) 7.1 g/dL (12.0-15.5) Hematocrit 26.5 % (36.0-47.0) 21.2 % (36.0-47.0) Mean Corpuscular Volume 96 fL (79-100) 93 fL (79-100) Mean Corpuscular Hemoglobin 30 pg (25-35) 31 pg (25-35) Mean Corpuscular Hemoglobin Concent 31 g/dL (31-37) 34 g/dL (31-37) Red Cell Distribution Width 19.0 % (11.5-14.5) 19.0 % (11.5-14.5) Platelet Count 307 x10^3/uL (140-400) 238 x10^3/uL (140-400) Neutrophils (%) (Auto) 86 % (31-73) 83 % (31-73) Lymphocytes (%) (Auto) 7 % (24-48) 10 % (24-48) Monocytes (%) (Auto) 6 % (0-9) 6 % (0-9) Eosinophils (%) (Auto) 0 % (0-3) 0 % (0-3) Basophils (%) (Auto) 1 % (0-3) 1 % (0-3) Neutrophils # (Auto) 14.2 x10^3uL (1.8-7.7) 6.4 x10^3uL (1.8-7.7) Lymphocytes # (Auto) 1.2 x10^3/uL (1.0-4.8) 0.7 x10^3/uL (1.0-4.8) Monocytes # (Auto) 1.0 x10^3/uL (0.0-1.1) 0.5 x10^3/uL (0.0-1.1) Eosinophils # (Auto) 0.0 x10^3/uL (0.0-0.7) 0.0 x10^3/uL (0.0-0.7) Basophils # (Auto) 0.1 x10^3/uL (0.0-0.2) 0.1 x10^3/uL (0.0-0.2) Segmented Neutrophils % 89 % (35-66) Band Neutrophils % 2 % (0-9) Lymphocytes % 5 % (24-48) Monocytes % 4 % (0-10) Toxic Granulation Slight Platelet Estimate Adequate (ADEQUATE) Polychromasia Mod Anisocytosis Mod Schistocytes Few Sodium Level 136 mmol/L (136-145) 136 mmol/L (136-145) Potassium Level 6.7 mmol/L (3.5-5.1) 5.9 mmol/L (3.5-5.1) Chloride Level 98 mmol/L (98-107) 100 mmol/L (98-107) Carbon Dioxide Level 21 mmol/L (21-32) 23 mmol/L (21-32) Anion Gap 17 (6-14) 13 (6-14) Blood Urea Nitrogen 65 mg/dL (7-20) 59 mg/dL (7-20) Creatinine 9.6 mg/dL (0.6-1.0) 8.5 mg/dL (0.6-1.0) Estimated GFR (Cockcroft-Gault) 4.1 4.7 BUN/Creatinine Ratio 7 (6-20) Glucose Level 110 mg/dL (70-99) 99 mg/dL (70-99) Calcium Level 9.3 mg/dL (8.5-10.1) 8.6 mg/dL (8.5-10.1) Total Bilirubin 0.4 mg/dL (0.2-1.0) Aspartate Amino Transf (AST/SGOT) 91 U/L (15-37) Alanine Aminotransferase (ALT/SGPT) 52 U/L (14-59) Alkaline Phosphatase 151 U/L (46-116) CG-[id number]-Type Natriuretic Peptide > 12394 pg/mL (0-124) Total Protein 5.8 g/dL (6.4-8.2) Albumin 2.2 g/dL (3.4-5.0) Albumin/Globulin Ratio 0.6 (1.0-1.7) Nasal Screen MRSA (PCR) Negative (Negative) Glucose (Fingerstick) 66 mg/dL (70-99) Test 02/26/18 20:41 02/27/18 06:50 02/27/18 07:20 Glucose (Fingerstick) 125 mg/dL (70-99) 87 mg/dL (70-99) White Blood Count 8.1 x10^3/uL (4.0-11.0) Red Blood Count 2.40 x10^6/uL (3.50-5.40) Hemoglobin 7.4 g/dL (12.0-15.5) Hematocrit 22.7 % (36.0-47.0) Mean Corpuscular Volume 95 fL (79-100) Mean Corpuscular Hemoglobin 31 pg (25-35) Mean Corpuscular Hemoglobin Concent 32 g/dL (31-37) Red Cell Distribution Width 20.9 % (11.5-14.5) Platelet Count 194 x10^3/uL (140-400) Neutrophils (%) (Auto) 74 % (31-73) Lymphocytes (%) (Auto) 16 % (24-48) Monocytes (%) (Auto) 9 % (0-9) Eosinophils (%) (Auto) 1 % (0-3) Basophils (%) (Auto) 1 % (0-3) Neutrophils # (Auto) 6.0 x10^3uL (1.8-7.7) Lymphocytes # (Auto) 1.3 x10^3/uL (1.0-4.8) Monocytes # (Auto) 0.7 x10^3/uL (0.0-1.1) Eosinophils # (Auto) 0.1 x10^3/uL (0.0-0.7) Basophils # (Auto) 0.1 x10^3/uL (0.0-0.2) Sodium Level 138 mmol/L (136-145) Potassium Level 4.7 mmol/L (3.5-5.1) Chloride Level 101 mmol/L (98-107) Carbon Dioxide Level 26 mmol/L (21-32) Anion Gap 11 (6-14) Blood Urea Nitrogen 40 mg/dL (7-20) Creatinine 6.7 mg/dL (0.6-1.0) Estimated GFR (Cockcroft-Gault) 6.2 Glucose Level 98 mg/dL (70-99) Calcium Level 8.1 mg/dL (8.5-10.1) Phosphorus Level 6.5 mg/dL (2.6-4.7) Magnesium Level 1.9 mg/dL (1.8-2.4) Laboratory Tests Test 02/26/18 11:34 02/26/18 15:00 02/26/18 20:41 02/27/18 06:50 Glucose (Fingerstick) 66 mg/dL (70-99) 125 mg/dL (70-99) White Blood Count 7.8 x10^3/uL (4.0-11.0) 8.1 x10^3/uL (4.0-11.0) Red Blood Count 2.29 x10^6/uL (3.50-5.40) 2.40 x10^6/uL (3.50-5.40) Hemoglobin 7.1 g/dL (12.0-15.5) 7.4 g/dL (12.0-15.5) Hematocrit 21.2 % (36.0-47.0) 22.7 % (36.0-47.0) Mean Corpuscular Volume 93 fL (79-100) 95 fL (79-100) Mean Corpuscular Hemoglobin 31 pg (25-35) 31 pg (25-35) Mean Corpuscular Hemoglobin Concent 34 g/dL (31-37) 32 g/dL (31-37) Red Cell Distribution Width 19.0 % (11.5-14.5) 20.9 % (11.5-14.5) Platelet Count 238 x10^3/uL (140-400) 194 x10^3/uL (140-400) Neutrophils (%) (Auto) 83 % (31-73) 74 % (31-73) Lymphocytes (%) (Auto) 10 % (24-48) 16 % (24-48) Monocytes (%) (Auto) 6 % (0-9) 9 % (0-9) Eosinophils (%) (Auto) 0 % (0-3) 1 % (0-3) Basophils (%) (Auto) 1 % (0-3) 1 % (0-3) Neutrophils # (Auto) 6.4 x10^3uL (1.8-7.7) 6.0 x10^3uL (1.8-7.7) Lymphocytes # (Auto) 0.7 x10^3/uL (1.0-4.8) 1.3 x10^3/uL (1.0-4.8) Monocytes # (Auto) 0.5 x10^3/uL (0.0-1.1) 0.7 x10^3/uL (0.0-1.1) Eosinophils # (Auto) 0.0 x10^3/uL (0.0-0.7) 0.1 x10^3/uL (0.0-0.7) Basophils # (Auto) 0.1 x10^3/uL (0.0-0.2) 0.1 x10^3/uL (0.0-0.2) Sodium Level 136 mmol/L (136-145) 138 mmol/L (136-145) Potassium Level 5.9 mmol/L (3.5-5.1) 4.7 mmol/L (3.5-5.1) Chloride Level 100 mmol/L (98-107) 101 mmol/L (98-107) Carbon Dioxide Level 23 mmol/L (21-32) 26 mmol/L (21-32) Anion Gap 13 (6-14) 11 (6-14) Blood Urea Nitrogen 59 mg/dL (7-20) 40 mg/dL (7-20) Creatinine 8.5 mg/dL (0.6-1.0) 6.7 mg/dL (0.6-1.0) Estimated GFR (Cockcroft-Gault) 4.7 6.2 Glucose Level 99 mg/dL (70-99) 98 mg/dL (70-99) Calcium Level 8.6 mg/dL (8.5-10.1) 8.1 mg/dL (8.5-10.1) Phosphorus Level 6.5 mg/dL (2.6-4.7) Magnesium Level 1.9 mg/dL (1.8-2.4) Test 02/27/18 07:20 Glucose (Fingerstick) 87 mg/dL (70-99) Assessment/Plan Assessment/Plan Atherosclerosis with ulceration of the right lower extremity--I 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 There are conversations within the medical record regarding her noncompliance and transitioning to a palliative or hospice type care. If the patient is going to participate in her medical therapy, and full aggressive therapy is going to be pursued, then a right lower extremity angiogram will be necessary to evaluate any reconstruction options. This with the patient this morning that if she does not have any reconstruction options, and amputation would be necessary as I do not think this wound will go on to heal. I will defer ordering angiography until we know how aggressive to pursue her care. All questions were answered to the patient's satisfaction this morning. GILMA LONG DO Feb 27, 2018 11:01
--- NOTE | 2018-02-27 11:49 | PDOC ---
PROGRESS NOTES Chief Complaint Chief Complaint ESRD on HD ttsat, needing dialysis emergently rt leg unhealing wound s/p wound vac, worse now Hyperkalemia rt hand weakness, need to rule out stroke Generalized weakness Anemia chronic, with ESRD NONCOMPLIANCE, REFUse HD SOMETIMES Tobacco abuse disorder fluid overload severe protein-caloric malnutrition DIABETES HTN PPMICD PAD plan: get vascular since they saw pt before and said pt not a good candidate for sx months ago. may need angiogram, defer to vascular id consult add vanco for now, wound c+ gram + cocci cont some home meds, bp lower side, on coreg low dose on asa, lipitor., will get MRI To rule out stroke, neuro consult resume pain meds, add lortab 10mg q6h prn, cont tramadol. hold fentanyl patch fu with renal, need HD, pt want HD for now PTOT dvt ppx History of Present Illness History of Present Illness ROS: no fever, chills, sob or chest pain c/o rt hand weakness, cannot hold glass, strength 4/5, left side 5/5 c/o rt leg worsening ulcer, had wound vac for 1month, off for 2ds. but wound clinic and her pain doc didnot tell her that till ERP i open the dressing , the ulcer looks bad, with erythema around, and yellow , foul smell discharge at ulcer, obvious infected. agree HD for now refuse hospice as per PAT note takes lortab 10mg q4h at home , c/o rt leg pain Vitals Vitals Vital Signs Date Time Temp Pulse Resp B/P (MAP) Pulse Ox O2 Delivery O2 Flow Rate FiO2 02/27/18 10:07 Room Air 02/27/18 08:00 97.9 60 16 98/38 (58) 94 97.9 02/26/18 20:55 2.0 Physical Exam Physical Exam rt hand weakness, strength 4/5, left side 5/5 rt leg worsening ulcer r looks bad, with erythema around, and yellow ,foul smell discharge at ulcer, obvious infected. General: Alert, Oriented X3, Cooperative, No acute distress Heart: Regular rate, Normal S1, Normal S2, No murmurs Lungs: Clear, Other Abdomen: Normal bowel sounds, Soft, No tenderness Extremities: Other (right lower extremity wound is located medially above the malleolus and has associated cellulitis and fibrinous debris occupying approximately 20% of the wound, the wound bed does not appear healthy and there is no significant elevated of granulation tissue, I was unable to locate any Doppler signals within the foot. She does have palpable femoral pulses bilaterally) Labs LABS Laboratory Tests Test 02/26/18 15:00 02/26/18 20:41 02/27/18 06:50 02/27/18 07:20 White Blood Count 7.8 x10^3/uL (4.0-11.0) 8.1 x10^3/uL (4.0-11.0) Red Blood Count 2.29 x10^6/uL (3.50-5.40) 2.40 x10^6/uL (3.50-5.40) Hemoglobin 7.1 g/dL (12.0-15.5) 7.4 g/dL (12.0-15.5) Hematocrit 21.2 % (36.0-47.0) 22.7 % (36.0-47.0) Mean Corpuscular Volume 93 fL (79-100) 95 fL (79-100) Mean Corpuscular Hemoglobin 31 pg (25-35) 31 pg (25-35) Mean Corpuscular Hemoglobin Concent 34 g/dL (31-37) 32 g/dL (31-37) Red Cell Distribution Width 19.0 % (11.5-14.5) 20.9 % (11.5-14.5) Platelet Count 238 x10^3/uL (140-400) 194 x10^3/uL (140-400) Neutrophils (%) (Auto) 83 % (31-73) 74 % (31-73) Lymphocytes (%) (Auto) 10 % (24-48) 16 % (24-48) Monocytes (%) (Auto) 6 % (0-9) 9 % (0-9) Eosinophils (%) (Auto) 0 % (0-3) 1 % (0-3) Basophils (%) (Auto) 1 % (0-3) 1 % (0-3) Neutrophils # (Auto) 6.4 x10^3uL (1.8-7.7) 6.0 x10^3uL (1.8-7.7) Lymphocytes # (Auto) 0.7 x10^3/uL (1.0-4.8) 1.3 x10^3/uL (1.0-4.8) Monocytes # (Auto) 0.5 x10^3/uL (0.0-1.1) 0.7 x10^3/uL (0.0-1.1) Eosinophils # (Auto) 0.0 x10^3/uL (0.0-0.7) 0.1 x10^3/uL (0.0-0.7) Basophils # (Auto) 0.1 x10^3/uL (0.0-0.2) 0.1 x10^3/uL (0.0-0.2) Sodium Level 136 mmol/L (136-145) 138 mmol/L (136-145) Potassium Level 5.9 mmol/L (3.5-5.1) 4.7 mmol/L (3.5-5.1) Chloride Level 100 mmol/L (98-107) 101 mmol/L (98-107) Carbon Dioxide Level 23 mmol/L (21-32) 26 mmol/L (21-32) Anion Gap 13 (6-14) 11 (6-14) Blood Urea Nitrogen 59 mg/dL (7-20) 40 mg/dL (7-20) Creatinine 8.5 mg/dL (0.6-1.0) 6.7 mg/dL (0.6-1.0) Estimated GFR (Cockcroft-Gault) 4.7 6.2 Glucose Level 99 mg/dL (70-99) 98 mg/dL (70-99) Calcium Level 8.6 mg/dL (8.5-10.1) 8.1 mg/dL (8.5-10.1) Glucose (Fingerstick) 125 mg/dL (70-99) 87 mg/dL (70-99) Phosphorus Level 6.5 mg/dL (2.6-4.7) Magnesium Level 1.9 mg/dL (1.8-2.4) Assessment and Plan Assessmemt and Plan Problems Medical Problems: (1) Anemia Status: Acute (2) Generalized weakness Status: Acute (3) Hyperkalemia Status: Acute Comment Review of Relevant I have reviewed the following items ashley (where applicable) has been applied. Labs Laboratory Tests Test 02/25/18 18:05 02/26/18 00:01 02/26/18 11:34 02/26/18 15:00 White Blood Count 16.5 x10^3/uL (4.0-11.0) 7.8 x10^3/uL (4.0-11.0) Red Blood Count 2.76 x10^6/uL (3.50-5.40) 2.29 x10^6/uL (3.50-5.40) Hemoglobin 8.2 g/dL (12.0-15.5) 7.1 g/dL (12.0-15.5) Hematocrit 26.5 % (36.0-47.0) 21.2 % (36.0-47.0) Mean Corpuscular Volume 96 fL (79-100) 93 fL (79-100) Mean Corpuscular Hemoglobin 30 pg (25-35) 31 pg (25-35) Mean Corpuscular Hemoglobin Concent 31 g/dL (31-37) 34 g/dL (31-37) Red Cell Distribution Width 19.0 % (11.5-14.5) 19.0 % (11.5-14.5) Platelet Count 307 x10^3/uL (140-400) 238 x10^3/uL (140-400) Neutrophils (%) (Auto) 86 % (31-73) 83 % (31-73) Lymphocytes (%) (Auto) 7 % (24-48) 10 % (24-48) Monocytes (%) (Auto) 6 % (0-9) 6 % (0-9) Eosinophils (%) (Auto) 0 % (0-3) 0 % (0-3) Basophils (%) (Auto) 1 % (0-3) 1 % (0-3) Neutrophils # (Auto) 14.2 x10^3uL (1.8-7.7) 6.4 x10^3uL (1.8-7.7) Lymphocytes # (Auto) 1.2 x10^3/uL (1.0-4.8) 0.7 x10^3/uL (1.0-4.8) Monocytes # (Auto) 1.0 x10^3/uL (0.0-1.1) 0.5 x10^3/uL (0.0-1.1) Eosinophils # (Auto) 0.0 x10^3/uL (0.0-0.7) 0.0 x10^3/uL (0.0-0.7) Basophils # (Auto) 0.1 x10^3/uL (0.0-0.2) 0.1 x10^3/uL (0.0-0.2) Segmented Neutrophils % 89 % (35-66) Band Neutrophils % 2 % (0-9) Lymphocytes % 5 % (24-48) Monocytes % 4 % (0-10) Toxic Granulation Slight Platelet Estimate Adequate (ADEQUATE) Polychromasia Mod Anisocytosis Mod Schistocytes Few Sodium Level 136 mmol/L (136-145) 136 mmol/L (136-145) Potassium Level 6.7 mmol/L (3.5-5.1) 5.9 mmol/L (3.5-5.1) Chloride Level 98 mmol/L (98-107) 100 mmol/L (98-107) Carbon Dioxide Level 21 mmol/L (21-32) 23 mmol/L (21-32) Anion Gap 17 (6-14) 13 (6-14) Blood Urea Nitrogen 65 mg/dL (7-20) 59 mg/dL (7-20) Creatinine 9.6 mg/dL (0.6-1.0) 8.5 mg/dL (0.6-1.0) Estimated GFR (Cockcroft-Gault) 4.1 4.7 BUN/Creatinine Ratio 7 (6-20) Glucose Level 110 mg/dL (70-99) 99 mg/dL (70-99) Calcium Level 9.3 mg/dL (8.5-10.1) 8.6 mg/dL (8.5-10.1) Total Bilirubin 0.4 mg/dL (0.2-1.0) Aspartate Amino Transf (AST/SGOT) 91 U/L (15-37) Alanine Aminotransferase (ALT/SGPT) 52 U/L (14-59) Alkaline Phosphatase 151 U/L (46-116) RW-Gnx-O-Type Natriuretic Peptide > 69704 pg/mL (0-124) Total Protein 5.8 g/dL (6.4-8.2) Albumin 2.2 g/dL (3.4-5.0) Albumin/Globulin Ratio 0.6 (1.0-1.7) Nasal Screen MRSA (PCR) Negative (Negative) Glucose (Fingerstick) 66 mg/dL (70-99) Test 02/26/18 20:41 02/27/18 06:50 02/27/18 07:20 Glucose (Fingerstick) 125 mg/dL (70-99) 87 mg/dL (70-99) White Blood Count 8.1 x10^3/uL (4.0-11.0) Red Blood Count 2.40 x10^6/uL (3.50-5.40) Hemoglobin 7.4 g/dL (12.0-15.5) Hematocrit 22.7 % (36.0-47.0) Mean Corpuscular Volume 95 fL (79-100) Mean Corpuscular Hemoglobin 31 pg (25-35) Mean Corpuscular Hemoglobin Concent 32 g/dL (31-37) Red Cell Distribution Width 20.9 % (11.5-14.5) Platelet Count 194 x10^3/uL (140-400) Neutrophils (%) (Auto) 74 % (31-73) Lymphocytes (%) (Auto) 16 % (24-48) Monocytes (%) (Auto) 9 % (0-9) Eosinophils (%) (Auto) 1 % (0-3) Basophils (%) (Auto) 1 % (0-3) Neutrophils # (Auto) 6.0 x10^3uL (1.8-7.7) Lymphocytes # (Auto) 1.3 x10^3/uL (1.0-4.8) Monocytes # (Auto) 0.7 x10^3/uL (0.0-1.1) Eosinophils # (Auto) 0.1 x10^3/uL (0.0-0.7) Basophils # (Auto) 0.1 x10^3/uL (0.0-0.2) Sodium Level 138 mmol/L (136-145) Potassium Level 4.7 mmol/L (3.5-5.1) Chloride Level 101 mmol/L (98-107) Carbon Dioxide Level 26 mmol/L (21-32) Anion Gap 11 (6-14) Blood Urea Nitrogen 40 mg/dL (7-20) Creatinine 6.7 mg/dL (0.6-1.0) Estimated GFR (Cockcroft-Gault) 6.2 Glucose Level 98 mg/dL (70-99) Calcium Level 8.1 mg/dL (8.5-10.1) Phosphorus Level 6.5 mg/dL (2.6-4.7) Magnesium Level 1.9 mg/dL (1.8-2.4) Laboratory Tests Test 02/26/18 15:00 02/26/18 20:41 02/27/18 06:50 02/27/18 07:20 White Blood Count 7.8 x10^3/uL (4.0-11.0) 8.1 x10^3/uL (4.0-11.0) Red Blood Count 2.29 x10^6/uL (3.50-5.40) 2.40 x10^6/uL (3.50-5.40) Hemoglobin 7.1 g/dL (12.0-15.5) 7.4 g/dL (12.0-15.5) Hematocrit 21.2 % (36.0-47.0) 22.7 % (36.0-47.0) Mean Corpuscular Volume 93 fL (79-100) 95 fL (79-100) Mean Corpuscular Hemoglobin 31 pg (25-35) 31 pg (25-35) Mean Corpuscular Hemoglobin Concent 34 g/dL (31-37) 32 g/dL (31-37) Red Cell Distribution Width 19.0 % (11.5-14.5) 20.9 % (11.5-14.5) Platelet Count 238 x10^3/uL (140-400) 194 x10^3/uL (140-400) Neutrophils (%) (Auto) 83 % (31-73) 74 % (31-73) Lymphocytes (%) (Auto) 10 % (24-48) 16 % (24-48) Monocytes (%) (Auto) 6 % (0-9) 9 % (0-9) Eosinophils (%) (Auto) 0 % (0-3) 1 % (0-3) Basophils (%) (Auto) 1 % (0-3) 1 % (0-3) Neutrophils # (Auto) 6.4 x10^3uL (1.8-7.7) 6.0 x10^3uL (1.8-7.7) Lymphocytes # (Auto) 0.7 x10^3/uL (1.0-4.8) 1.3 x10^3/uL (1.0-4.8) Monocytes # (Auto) 0.5 x10^3/uL (0.0-1.1) 0.7 x10^3/uL (0.0-1.1) Eosinophils # (Auto) 0.0 x10^3/uL (0.0-0.7) 0.1 x10^3/uL (0.0-0.7) Basophils # (Auto) 0.1 x10^3/uL (0.0-0.2) 0.1 x10^3/uL (0.0-0.2) Sodium Level 136 mmol/L (136-145) 138 mmol/L (136-145) Potassium Level 5.9 mmol/L (3.5-5.1) 4.7 mmol/L (3.5-5.1) Chloride Level 100 mmol/L (98-107) 101 mmol/L (98-107) Carbon Dioxide Level 23 mmol/L (21-32) 26 mmol/L (21-32) Anion Gap 13 (6-14) 11 (6-14) Blood Urea Nitrogen 59 mg/dL (7-20) 40 mg/dL (7-20) Creatinine 8.5 mg/dL (0.6-1.0) 6.7 mg/dL (0.6-1.0) Estimated GFR (Cockcroft-Gault) 4.7 6.2 Glucose Level 99 mg/dL (70-99) 98 mg/dL (70-99) Calcium Level 8.6 mg/dL (8.5-10.1) 8.1 mg/dL (8.5-10.1) Glucose (Fingerstick) 125 mg/dL (70-99) 87 mg/dL (70-99) Phosphorus Level 6.5 mg/dL (2.6-4.7) Magnesium Level 1.9 mg/dL (1.8-2.4) Microbiology 02/26/18 Anaerobic/Aerobic Culture, Resulted Pending 02/26/18 Anaerobic Culture Result 1 (LUZ), Resulted Pending 02/26/18 Aerobic Culture, Resulted Pending 02/26/18 Aerobic Culture Result 1 (LUZ), Resulted Pending 02/26/18 Gram Stain - Final, Resulted 02/26/18 Gram Stain Result 1 (LUZ) - Final, Resulted 02/26/18 Gram Stain Result 2 (LUZ) - Final, Resulted Medications Current Medications Sodium Bicarbonate (Sodium Bicarb Adult 8.4% Syr) 50 meq 1X ONCE IV Last administered on 02/25/18at 19:16; Start 02/25/18 at 19:00; Stop 02/25/18 at 19:01 ; Status DC Calcium Gluconate (Calcium Gluconate) 1,000 mg 1X ONCE IVP Last administered on 02/25/18at 19:07; Start 02/25/18 at 19:00; Stop 02/25/18 at 19:01; Status DC Dextrose (Dextrose 50%-Water Syringe) 25 gm 1X ONCE IV Last administered on at 19:14; Start 02/25/18 at 19:00; Stop 02/25/18 at 19:01; Status DC Insulin Human Regular (HumuLIN R VIAL) 10 unit 1X ONCE IV Last administered on 02/25/18at 19:13; Start 02/25/18 at 19:00; Stop 02/25/18 at 19:01; Status DC Albuterol Sulfate (Ventolin Neb Soln) 10 mg 1X ONCE CONT NEB ; Start 02/25/18 at 19:00; Stop 02/25/18 at 19:01; Status DC Ondansetron HCl (Zofran) 4 mg PRN Q8HRS PRN IV NAUSEA/VOMITING; Start 02/25/18 at 21:00; Stop 02/26/18 at 20:59; Status DC Aspirin (Ecotrin) 81 mg QHS PO Last administered on 02/26/18at 21:05; Start 02/26/18 at 21:00 Carvedilol (Coreg) 3.125 mg BIDWMEALS PO Last administered on 02/26/18at 21:05; Start 02/26/18 at 08:00 Cinacalcet (Sensipar) 30 mg QHS PO Last administered on 02/26/18at 21:05; Start 02/26/18 at 21:00 Clopidogrel Bisulfate (Plavix) 75 mg QHS PO Last administered on 02/26/18at 21: 05; Start 02/26/18 at 21:00 Polyethylene Glycol (miraLAX PACKET) 17 gm PRN DAILY PRN PO CONSTIPATION 1ST CHOICE; Start 02/26/18 at 09:00 Vitamin B Complex/ Vitamin C (Alayna-Oneil) 1 tab DAILY PO Last administered on at 09:07; Start 02/26/18 at 09:00 Sodium Chloride 1,000 ml @ 1,000 mls/hr Q1H PRN IV hypotension; Start 02/26/18 at 13:42; Stop 02/26/18 at 19:41; Status DC Sodium Chloride 1,000 ml @ 400 mls/hr Q2H30M PRN IV PATENCY; Start 02/26/18 at 13:42; Stop 02/27/18 at 01:42; Status DC Info (PHARMACY MONITORING -- do not chart) 1 each PRN DAILY PRN MC SEE COMMENTS ; Start 02/26/18 at 13:45 Lidocaine HCl (Xylocaine-Mpf 2% Vial) 0.5 ml 1X STAT ID Last administered on 02/26/18at 14:58; Start 02/26/18 at 14:46; Stop 02/26/18 at 14:50; Status DC Tramadol HCl (Ultram) 50 mg PRN Q6HRS PRN PO PAIN Last administered on at 09:07; Start 02/26/18 at 20:00 Sodium Chloride 1,000 ml @ 1,000 mls/hr Q1H PRN IV hypotension; Start 02/27/18 at 08:41; Stop 02/27/18 at 14:40 Sodium Chloride 1,000 ml @ 400 mls/hr Q2H30M PRN IV PATENCY; Start 02/27/18 at 08:41; Stop 02/27/18 at 20:40 Info (PHARMACY MONITORING -- do not chart) 1 each PRN DAILY PRN MC SEE COMMENTS ; Start 02/27/18 at 08:45; Status UNV Info (PHARMACY MONITORING -- do not chart) 1 each PRN DAILY PRN MC SEE COMMENTS ; Start 02/27/18 at 08:45 Lidocaine HCl (Xylocaine-Mpf 2% Vial) 2 ml 1X ONCE INJ ; Start 02/27/18 at 09: 00; Stop 02/27/18 at 09:01; Status DC Lidocaine HCl (Lidocaine Pf 2% Vial) 5 ml 1X ONCE IJ Last administered on 02/27at 09:00; Start 02/27/18 at 09:00; Stop 02/27/18 at 09:01; Status DC Alprazolam (Xanax) 0.25 mg PRN DAILY PRN PO ANXIETY / AGITATION; Start at 09:15 Atorvastatin Calcium (Lipitor) 10 mg QHS PO ; Start 02/27/18 at 21:00 Gabapentin (Neurontin) 300 mg QHS PO ; Start 02/27/18 at 21:00 Sertraline HCl (Zoloft) 50 mg QHS PO ; Start 02/27/18 at 21:00 Acetaminophen/ Hydrocodone Bitart (Lortab 10/325) 1 tab PRN Q6HRS PRN PO PAIN; Start 02/27/18 at 09:30; Stop 02/27/18 at 09:30; Status DC Vancomycin HCl 2 gm/Sodium Chloride 500 ml @ 250 mls/hr 1X ONCE IV ; Start at 09:15; Stop 02/27/18 at 11:14; Status UNV Vancomycin HCl (Vanco Per Pharmacy) 1 each PRN DAILY PRN MC SEE COMMENTS; Start 02/27/18 at 09:15 Acetaminophen (Tylenol) 650 mg PRN Q6HRS PRN PO FEVER; Start 02/27/18 at 09:15 Ondansetron HCl (Zofran) 4 mg PRN Q6HRS PRN IV NAUSEA/VOMITING; Start 02/27/18 at 09:15 Docusate Sodium (Colace) 100 mg PRN DAILY PRN PO CONSTIPATION; Start 02/27/18 at 09:15 Heparin Sodium (Porcine) (Heparin Sodium) 5,000 unit Q8HRS SQ ; Start 02/27/18 at 14:00 Acetaminophen/ Hydrocodone Bitart (Lortab 10/325) 1 tab PRN Q6HRS PRN PO PAIN Last administered on 02/27/18at 09:41; Start 02/27/18 at 09:30 Vancomycin HCl 1.75 gm/Sodium Chloride 500 ml @ 250 mls/hr 1X ONCE IV ; Start 02/27/18 at 12:00; Stop 02/27/18 at 13:59 Active Scripts Active FENTANYL 25mcg/hr (Fentanyl) 1 Each Patch.td72 1 Patch TD Q3DAYS 30 Days Atorvastatin Calcium 10 Mg Tablet 10 Mg PO QHS 30 Days Carvedilol (Carvedilol) 3.125 Mg Tablet 3.125 Mg PO BIDWMEALS Reported [place] 10-325 Tablet (Acetaminophen/Hydrocodone Bitart) 1 Each Tablet 1 Tab PO Q4 -6HRS Polyethylene Glycol 3350 17 Gm Powd.pack 17 Gm PO PRN DAILY PRN Sertraline Hcl 50 Mg Tablet 50 Mg PO QHS Sensipar (Cinacalcet Hcl) 30 Mg Tablet 1 Tab PO QHS Alayna-Oneil Rx Tablet (Vit B Cmplx 3/Fa/Vit C/Biotin) 1 Each Tablet 1 Each PO DAILY Cranberry Plus Vitamin C Sftgl (Cranberry Conc/Ascorbic Acid) 1 Each Capsule 1 Each PO QHS Alprazolam 0.25 Mg Tablet 1 Tab PO DAILY PRN Plavix (Clopidogrel Bisulfate) 75 Mg Tablet 75 Mg PO QHS Calcium Acetate 667 Mg Tablet 2 Tab PO TIDWMEALS Tylenol Extra Strength (Acetaminophen) 500 Mg Tablet 500 Mg PO PRN Q12HRS PRN Gabapentin (Gabapentin) 300 Mg Capsule 300 Mg PO QHS Benadryl Allergy (Diphenhydramine Hcl) 25 Mg Tablet 25 Mg PO PRN not given in the hospital Aspir 81 (Aspirin) 81 Mg Tablet.dr 81 Mg PO QHS Vitals/I & O Vital Sign - Last 24 Hours 02/26/18 02/26/18 02/26/18 02/26/18 12:18 12:43 19:00 20:55 Temp 98.1 98.3 98.1 98.3 Pulse 62 62 78 Resp 20 20 B/P (MAP) 123/34 (63) 123/34 137/50 (79) Pulse Ox 94 100 O2 Delivery Room Air Nasal Cannula Nasal Cannula O2 Flow Rate 2.0 02/26/18 02/26/18 02/26/18 02/26/18 21:05 21:05 22:05 23:00 Temp 98.3 98.3 Pulse 78 68 Resp 20 20 20 B/P (MAP) 137/50 103/38 (59) Pulse Ox 95 O2 Delivery Room Air Nasal Cannula 02/27/18 02/27/18 02/27/18 02/27/18 03:13 08:00 08:00 09:07 Temp 98.5 97.9 98.5 97.9 Pulse 61 60 Resp 20 16 B/P (MAP) 90/40 (57) 98/38 (58) Pulse Ox 100 94 O2 Delivery Nasal Cannula Room Air Nasal Cannula Room Air 02/27/18 02/27/18 09:41 10:07 O2 Delivery Room Air Room Air Intake and Output 02/26/18 02/26/18 02/27/18 15:00 23:00 07:00 Output Total 50 ml 0 ml Balance -50 ml 0 ml SAVANNAH LOPEZ MD Feb 27, 2018 11:49
--- NOTE | 2018-02-27 11:53 | PDOC ---
Dialysis Progress Note Dialysis Note Dialysis Note Seen on Hemodialysis, tolerating treatment Well for now Vitals on Hemodialysis: 95/50 64 afebrile General Appearance: Asleep on dialysis, did not awaken Neck: No JVD or JVP Chest: CTA [place] Heart: S1 S2 Abdomen - Soft NTND Extremities - No Edema ESRD: Dialysis as below F 180 NR 3 Hrs 3 K 2.5 Ca 140 Na 35 HC03 Qb 350 + Qd 500+ Heparin 0 Units Uf 1-2 Kgs or to dry weight as tolerated May give 25-50 gms of 25% Albumin if needed to maintain Hemodynamic stability Treatment plan reviewed and discussed with rn medical inpatient services Vitals Vital Signs Vital Signs Date Time Temp Pulse Resp B/P (MAP) Pulse Ox O2 Delivery O2 Flow Rate FiO2 02/27/18 10:07 Room Air 02/27/18 08:00 97.9 60 16 98/38 (58) 94 97.9 02/26/18 20:55 2.0 Labs Last Labs Laboratory Tests Test 02/25/18 18:05 02/26/18 00:01 02/26/18 11:34 02/26/18 15:00 White Blood Count 16.5 x10^3/uL (4.0-11.0) 7.8 x10^3/uL (4.0-11.0) Red Blood Count 2.76 x10^6/uL (3.50-5.40) 2.29 x10^6/uL (3.50-5.40) Hemoglobin 8.2 g/dL (12.0-15.5) 7.1 g/dL (12.0-15.5) Hematocrit 26.5 % (36.0-47.0) 21.2 % (36.0-47.0) Mean Corpuscular Volume 96 fL (79-100) 93 fL (79-100) Mean Corpuscular Hemoglobin 30 pg (25-35) 31 pg (25-35) Mean Corpuscular Hemoglobin Concent 31 g/dL (31-37) 34 g/dL (31-37) Red Cell Distribution Width 19.0 % (11.5-14.5) 19.0 % (11.5-14.5) Platelet Count 307 x10^3/uL (140-400) 238 x10^3/uL (140-400) Neutrophils (%) (Auto) 86 % (31-73) 83 % (31-73) Lymphocytes (%) (Auto) 7 % (24-48) 10 % (24-48) Monocytes (%) (Auto) 6 % (0-9) 6 % (0-9) Eosinophils (%) (Auto) 0 % (0-3) 0 % (0-3) Basophils (%) (Auto) 1 % (0-3) 1 % (0-3) Neutrophils # (Auto) 14.2 x10^3uL (1.8-7.7) 6.4 x10^3uL (1.8-7.7) Lymphocytes # (Auto) 1.2 x10^3/uL (1.0-4.8) 0.7 x10^3/uL (1.0-4.8) Monocytes # (Auto) 1.0 x10^3/uL (0.0-1.1) 0.5 x10^3/uL (0.0-1.1) Eosinophils # (Auto) 0.0 x10^3/uL (0.0-0.7) 0.0 x10^3/uL (0.0-0.7) Basophils # (Auto) 0.1 x10^3/uL (0.0-0.2) 0.1 x10^3/uL (0.0-0.2) Segmented Neutrophils % 89 % (35-66) Band Neutrophils % 2 % (0-9) Lymphocytes % 5 % (24-48) Monocytes % 4 % (0-10) Toxic Granulation Slight Platelet Estimate Adequate (ADEQUATE) Polychromasia Mod Anisocytosis Mod Schistocytes Few Sodium Level 136 mmol/L (136-145) 136 mmol/L (136-145) Potassium Level 6.7 mmol/L (3.5-5.1) 5.9 mmol/L (3.5-5.1) Chloride Level 98 mmol/L (98-107) 100 mmol/L (98-107) Carbon Dioxide Level 21 mmol/L (21-32) 23 mmol/L (21-32) Anion Gap 17 (6-14) 13 (6-14) Blood Urea Nitrogen 65 mg/dL (7-20) 59 mg/dL (7-20) Creatinine 9.6 mg/dL (0.6-1.0) 8.5 mg/dL (0.6-1.0) Estimated GFR (Cockcroft-Gault) 4.1 4.7 BUN/Creatinine Ratio 7 (6-20) Glucose Level 110 mg/dL (70-99) 99 mg/dL (70-99) Calcium Level 9.3 mg/dL (8.5-10.1) 8.6 mg/dL (8.5-10.1) Total Bilirubin 0.4 mg/dL (0.2-1.0) Aspartate Amino Transf (AST/SGOT) 91 U/L (15-37) Alanine Aminotransferase (ALT/SGPT) 52 U/L (14-59) Alkaline Phosphatase 151 U/L (46-116) VF-Enx-T-Type Natriuretic Peptide > 60523 pg/mL (0-124) Total Protein 5.8 g/dL (6.4-8.2) Albumin 2.2 g/dL (3.4-5.0) Albumin/Globulin Ratio 0.6 (1.0-1.7) Nasal Screen MRSA (PCR) Negative (Negative) Glucose (Fingerstick) 66 mg/dL (70-99) Test 02/26/18 20:41 02/27/18 06:50 02/27/18 07:20 02/27/18 11:42 Glucose (Fingerstick) 125 mg/dL (70-99) 87 mg/dL (70-99) 106 mg/dL (70-99) White Blood Count 8.1 x10^3/uL (4.0-11.0) Red Blood Count 2.40 x10^6/uL (3.50-5.40) Hemoglobin 7.4 g/dL (12.0-15.5) Hematocrit 22.7 % (36.0-47.0) Mean Corpuscular Volume 95 fL (79-100) Mean Corpuscular Hemoglobin 31 pg (25-35) Mean Corpuscular Hemoglobin Concent 32 g/dL (31-37) Red Cell Distribution Width 20.9 % (11.5-14.5) Platelet Count 194 x10^3/uL (140-400) Neutrophils (%) (Auto) 74 % (31-73) Lymphocytes (%) (Auto) 16 % (24-48) Monocytes (%) (Auto) 9 % (0-9) Eosinophils (%) (Auto) 1 % (0-3) Basophils (%) (Auto) 1 % (0-3) Neutrophils # (Auto) 6.0 x10^3uL (1.8-7.7) Lymphocytes # (Auto) 1.3 x10^3/uL (1.0-4.8) Monocytes # (Auto) 0.7 x10^3/uL (0.0-1.1) Eosinophils # (Auto) 0.1 x10^3/uL (0.0-0.7) Basophils # (Auto) 0.1 x10^3/uL (0.0-0.2) Sodium Level 138 mmol/L (136-145) Potassium Level 4.7 mmol/L (3.5-5.1) Chloride Level 101 mmol/L (98-107) Carbon Dioxide Level 26 mmol/L (21-32) Anion Gap 11 (6-14) Blood Urea Nitrogen 40 mg/dL (7-20) Creatinine 6.7 mg/dL (0.6-1.0) Estimated GFR (Cockcroft-Gault) 6.2 Glucose Level 98 mg/dL (70-99) Calcium Level 8.1 mg/dL (8.5-10.1) Phosphorus Level 6.5 mg/dL (2.6-4.7) Magnesium Level 1.9 mg/dL (1.8-2.4) Laboratory Tests Test 02/26/18 15:00 02/26/18 20:41 02/27/18 06:50 02/27/18 07:20 White Blood Count 7.8 x10^3/uL (4.0-11.0) 8.1 x10^3/uL (4.0-11.0) Red Blood Count 2.29 x10^6/uL (3.50-5.40) 2.40 x10^6/uL (3.50-5.40) Hemoglobin 7.1 g/dL (12.0-15.5) 7.4 g/dL (12.0-15.5) Hematocrit 21.2 % (36.0-47.0) 22.7 % (36.0-47.0) Mean Corpuscular Volume 93 fL (79-100) 95 fL (79-100) Mean Corpuscular Hemoglobin 31 pg (25-35) 31 pg (25-35) Mean Corpuscular Hemoglobin Concent 34 g/dL (31-37) 32 g/dL (31-37) Red Cell Distribution Width 19.0 % (11.5-14.5) 20.9 % (11.5-14.5) Platelet Count 238 x10^3/uL (140-400) 194 x10^3/uL (140-400) Neutrophils (%) (Auto) 83 % (31-73) 74 % (31-73) Lymphocytes (%) (Auto) 10 % (24-48) 16 % (24-48) Monocytes (%) (Auto) 6 % (0-9) 9 % (0-9) Eosinophils (%) (Auto) 0 % (0-3) 1 % (0-3) Basophils (%) (Auto) 1 % (0-3) 1 % (0-3) Neutrophils # (Auto) 6.4 x10^3uL (1.8-7.7) 6.0 x10^3uL (1.8-7.7) Lymphocytes # (Auto) 0.7 x10^3/uL (1.0-4.8) 1.3 x10^3/uL (1.0-4.8) Monocytes # (Auto) 0.5 x10^3/uL (0.0-1.1) 0.7 x10^3/uL (0.0-1.1) Eosinophils # (Auto) 0.0 x10^3/uL (0.0-0.7) 0.1 x10^3/uL (0.0-0.7) Basophils # (Auto) 0.1 x10^3/uL (0.0-0.2) 0.1 x10^3/uL (0.0-0.2) Sodium Level 136 mmol/L (136-145) 138 mmol/L (136-145) Potassium Level 5.9 mmol/L (3.5-5.1) 4.7 mmol/L (3.5-5.1) Chloride Level 100 mmol/L (98-107) 101 mmol/L (98-107) Carbon Dioxide Level 23 mmol/L (21-32) 26 mmol/L (21-32) Anion Gap 13 (6-14) 11 (6-14) Blood Urea Nitrogen 59 mg/dL (7-20) 40 mg/dL (7-20) Creatinine 8.5 mg/dL (0.6-1.0) 6.7 mg/dL (0.6-1.0) Estimated GFR (Cockcroft-Gault) 4.7 6.2 Glucose Level 99 mg/dL (70-99) 98 mg/dL (70-99) Calcium Level 8.6 mg/dL (8.5-10.1) 8.1 mg/dL (8.5-10.1) Glucose (Fingerstick) 125 mg/dL (70-99) 87 mg/dL (70-99) Phosphorus Level 6.5 mg/dL (2.6-4.7) Magnesium Level 1.9 mg/dL (1.8-2.4) Test 02/27/18 11:42 Glucose (Fingerstick) 106 mg/dL (70-99) Assessment Assessment Problems Medical Problems: (1) Anemia Status: Acute (2) Generalized weakness Status: Acute (3) Hyperkalemia Status: Acute Plan Plan of Care Problems Medical Problems: (1) Anemia Status: Acute (2) Generalized weakness Status: Acute (3) Hyperkalemia Status: Acute AMENA QUARLES MD Feb 27, 2018 11:53
[2018-02-27] MEDS: VANCOMYCIN 1.75 GM in IV NORMAL SALINE 500ML BAG 500 ML IV ONE ×2 (12:00→18:40)
--- NOTE | 2018-02-27 12:11 | PDOC ---
Infectious Disease Note Vital Sign Vital Signs Vital Signs Date Time Temp Pulse Resp B/P (MAP) Pulse Ox O2 Delivery O2 Flow Rate FiO2 02/27/18 10:07 Room Air 02/27/18 08:00 97.9 60 16 98/38 (58) 94 97.9 02/26/18 20:55 2.0 Physical Exam PHYSICAL EXAM rt hand weakness, strength 4/5, left side 5/5 rt leg worsening ulcer r looks bad, with erythema around, and yellow ,foul smell discharge at ulcer, obvious infected. Labs Lab Laboratory Tests Test 02/26/18 15:00 02/26/18 20:41 02/27/18 06:50 02/27/18 07:20 White Blood Count 7.8 x10^3/uL (4.0-11.0) 8.1 x10^3/uL (4.0-11.0) Red Blood Count 2.29 x10^6/uL (3.50-5.40) 2.40 x10^6/uL (3.50-5.40) Hemoglobin 7.1 g/dL (12.0-15.5) 7.4 g/dL (12.0-15.5) Hematocrit 21.2 % (36.0-47.0) 22.7 % (36.0-47.0) Mean Corpuscular Volume 93 fL (79-100) 95 fL (79-100) Mean Corpuscular Hemoglobin 31 pg (25-35) 31 pg (25-35) Mean Corpuscular Hemoglobin Concent 34 g/dL (31-37) 32 g/dL (31-37) Red Cell Distribution Width 19.0 % (11.5-14.5) 20.9 % (11.5-14.5) Platelet Count 238 x10^3/uL (140-400) 194 x10^3/uL (140-400) Neutrophils (%) (Auto) 83 % (31-73) 74 % (31-73) Lymphocytes (%) (Auto) 10 % (24-48) 16 % (24-48) Monocytes (%) (Auto) 6 % (0-9) 9 % (0-9) Eosinophils (%) (Auto) 0 % (0-3) 1 % (0-3) Basophils (%) (Auto) 1 % (0-3) 1 % (0-3) Neutrophils # (Auto) 6.4 x10^3uL (1.8-7.7) 6.0 x10^3uL (1.8-7.7) Lymphocytes # (Auto) 0.7 x10^3/uL (1.0-4.8) 1.3 x10^3/uL (1.0-4.8) Monocytes # (Auto) 0.5 x10^3/uL (0.0-1.1) 0.7 x10^3/uL (0.0-1.1) Eosinophils # (Auto) 0.0 x10^3/uL (0.0-0.7) 0.1 x10^3/uL (0.0-0.7) Basophils # (Auto) 0.1 x10^3/uL (0.0-0.2) 0.1 x10^3/uL (0.0-0.2) Sodium Level 136 mmol/L (136-145) 138 mmol/L (136-145) Potassium Level 5.9 mmol/L (3.5-5.1) 4.7 mmol/L (3.5-5.1) Chloride Level 100 mmol/L (98-107) 101 mmol/L (98-107) Carbon Dioxide Level 23 mmol/L (21-32) 26 mmol/L (21-32) Anion Gap 13 (6-14) 11 (6-14) Blood Urea Nitrogen 59 mg/dL (7-20) 40 mg/dL (7-20) Creatinine 8.5 mg/dL (0.6-1.0) 6.7 mg/dL (0.6-1.0) Estimated GFR (Cockcroft-Gault) 4.7 6.2 Glucose Level 99 mg/dL (70-99) 98 mg/dL (70-99) Calcium Level 8.6 mg/dL (8.5-10.1) 8.1 mg/dL (8.5-10.1) Glucose (Fingerstick) 125 mg/dL (70-99) 87 mg/dL (70-99) Phosphorus Level 6.5 mg/dL (2.6-4.7) Magnesium Level 1.9 mg/dL (1.8-2.4) Test 02/27/18 11:42 Glucose (Fingerstick) 106 mg/dL (70-99) Micro GRAM STAIN RES 2 Final Comment Many gram positive cocci. Objective Assessment Nonhealing right ankle wound with cellulitis. GPC Necrotic ulcer right lateral ankle DM PVD CKD on HD AICD in place Run V-tach Tobaccoism Plan Plan of Care Continue vancomycin and Zosyn Monitor labs/temp f/u cultures Local wound care Smoking cessation May need BKA. vascular following D/w RN Thank you Attending Co-Sign The patient was seen and interviewed as well as examined at the bedside. The chart was reviewed. The case was discussed. Agree with the plan of care. add zosyn likely will need BKA TAMMY GAYTAN APRN Feb 27, 2018 12:11 YAZ QUARLES MD Feb 27, 2018 14:45
[2018-02-27] MEDS: HEPARIN for SUB-Q USE 5,000 UNIT/ML VIAL. SQ SCH ×2 (14:00→21:22)
[2018-02-27] MEDS: PIPERACILLIN/TAZOBACTAM 2.25 GM in IV NORMAL SALINE 50ML 50 ML IV SCH ×3 (15:00→21:20)
[2018-02-27 16:00] VITALS: BP 117/45
[2018-02-27] MEDS: VANCOMYCIN PER PHARMACY MC PRN (16:00)
--- NOTE | 2018-02-27 17:07 | PDOC2 ---
NEUROLOGY CONSULT Date of Admission Date of Admission DATE: 02/27/18 TIME: 16:56 Reason for Consult Reason for Consult: IMPRESSION: Generalized weakness, multi factorial. Fatigue. Not compliant with dialysis. Hyperkalemia. Renal failure on dialysis. DM HTN. HLD. CAD. Right LE wound. Obesity. RECOMMENDATIONS/PLAN: Treat medical diseases. HCT. Lab: see orders. Wound care. HISTORY OF THE PRESENT ILLNESS: 68-y-old female with above medical diseases and non compliant for dialysis was hospitalized for further evaluation and treatment. Neurology was requested for consultation for generalized weakness, but no focalized sensory or motor deficits. Past Medical History Anemia, CAD, Diabetes-Type II, Hypertension, Pneumonia, Renal Failure on dialysis. Cardiovascular: CAD, HTN, Hyperlipidemia, Valve insufficiency. Pulmonary: COPD CENTRAL NERVOUS SYSTEM: Other Heme/Onc: Anemia NOS Psych: Depression Musculoskeletal: Other Rheumatologic: No pertinent hx Infectious disease: Other Renal/: Chronic renal insuff, Chronic renal failure, Other Endocrine: Diabetes, Hyperparathyroidism Dermatology: Eczema Past Surgical History Cholecystectomy, Hysterectomy, Pacemaker, Tonsillectomy, cardiac cath 10/2016-w/ stent placement, back surgery,rotator cuff, arthroscopy, Cholecystectomy, Tonsillectomy, Hysterectomy. Family History Diabetes, Hypertension ALLERGY: Coded Allergies: ciprofloxacin (Verified Allergy, Intermediate, Rash, 05/08/17) morphine (Verified Adverse Reaction, Severe, makes her skin crawl, 05/08/17 ) oxycodone (Verified Adverse Reaction, Severe, makes her skin crawl, ) adhesive (Verified Adverse Reaction, Intermediate, blisters, 05/08/17) " use paper tape" MEDICATIONS: Refer to [facility] SOCIAL HISTORY: Denies drinking, and illicit drug use. She smokes 1 pack of cigarettes a day for many years. REVIEW OF SYSTEMS: Constitutional: No cachexia. Head: No traumatic brain or head injury. Skin: No edema, or rash. Ear: No infection. Eyes: No vision loss or color blindness. Nose: No bleeding or purulent discharges. Hearing: No hearing decrease. Neck: No injury. Breast: No history of cancer, masses,or discharges. Cardiac: CAD, HTN, HLD. Pulmonary: No COPD. GI: No GI ulcer, GI bleeding. Urinary/genital: Renal failure on dialysis. Endocrinologic: Diabetes Mellitus. Skeletomuscular: Generalized weakness. Neurological: see HP. Psychiatric: Denies drug use/abuse. Otherwise, not [id number] review of systems. PHYSICAL EXAMINATION: General appearance is in chronic distress. HEENT: Normocephalic and nontraumatic. Eyes, nose, ears, and throat are unremarkable. Neck is supple. No lymphadenopathy. No crepitus. Cardiovascular: S1, S2, regular rate and rhythm. Pulmonary: Clear to auscultation bilaterally. Abdomen: Bowel sounds are positive. Extremities: Right LE wound. No restriction of range of motion NEUROLOGICAL EXAMINATION: Alert Oriented to time, place and person. PERRL. EOMI. CN: no focal findings. Muscle tone: within normal. Muscle strength: 4+ DTR: 1-2 Plantar reflex: Flexor response bilaterally Gait: not examined in bed. Sensory exam: no abnormal findings. No cerebellar signs elicited. Current Medications Current Medications Current Medications Sodium Bicarbonate (Sodium Bicarb Adult 8.4% Syr) 50 meq 1X ONCE IV Last administered on 02/25/18at 19:16; Start 02/25/18 at 19:00; Stop 02/25/18 at 19:01 ; Status DC Calcium Gluconate (Calcium Gluconate) 1,000 mg 1X ONCE IVP Last administered on 02/25/18at 19:07; Start 02/25/18 at 19:00; Stop 02/25/18 at 19:01; Status DC Dextrose (Dextrose 50%-Water Syringe) 25 gm 1X ONCE IV Last administered on at 19:14; Start 02/25/18 at 19:00; Stop 02/25/18 at 19:01; Status DC Insulin Human Regular (HumuLIN R VIAL) 10 unit 1X ONCE IV Last administered on 02/25/18at 19:13; Start 02/25/18 at 19:00; Stop 02/25/18 at 19:01; Status DC Albuterol Sulfate (Ventolin Neb Soln) 10 mg 1X ONCE CONT NEB ; Start 02/25/18 at 19:00; Stop 02/25/18 at 19:01; Status DC Ondansetron HCl (Zofran) 4 mg PRN Q8HRS PRN IV NAUSEA/VOMITING; Start 02/25/18 at 21:00; Stop 02/26/18 at 20:59; Status DC Aspirin (Ecotrin) 81 mg QHS PO Last administered on 02/26/18at 21:05; Start 02/26/18 at 21:00 Carvedilol (Coreg) 3.125 mg BIDWMEALS PO Last administered on 02/26/18at 21:05; Start 02/26/18 at 08:00 Cinacalcet (Sensipar) 30 mg QHS PO Last administered on 02/26/18at 21:05; Start 02/26/18 at 21:00 Clopidogrel Bisulfate (Plavix) 75 mg QHS PO Last administered on 02/26/18at 21: 05; Start 02/26/18 at 21:00 Polyethylene Glycol (miraLAX PACKET) 17 gm PRN DAILY PRN PO CONSTIPATION 1ST CHOICE; Start 02/26/18 at 09:00 Vitamin B Complex/ Vitamin C (Alayna-Oneil) 1 tab DAILY PO Last administered on at 09:07; Start 02/26/18 at 09:00 Sodium Chloride 1,000 ml @ 1,000 mls/hr Q1H PRN IV hypotension; Start 02/26/18 at 13:42; Stop 02/26/18 at 19:41; Status DC Sodium Chloride 1,000 ml @ 400 mls/hr Q2H30M PRN IV PATENCY; Start 02/26/18 at 13:42; Stop 02/27/18 at 01:42; Status DC Info (PHARMACY MONITORING -- do not chart) 1 each PRN DAILY PRN MC SEE COMMENTS ; Start 02/26/18 at 13:45; Stop 02/27/18 at 15:54; Status DC Lidocaine HCl (Xylocaine-Mpf 2% Vial) 0.5 ml 1X STAT ID Last administered on 02/26/18at 14:58; Start 02/26/18 at 14:46; Stop 02/26/18 at 14:50; Status DC Tramadol HCl (Ultram) 50 mg PRN Q6HRS PRN PO PAIN Last administered on at 09:07; Start 02/26/18 at 20:00 Sodium Chloride 1,000 ml @ 1,000 mls/hr Q1H PRN IV hypotension; Start 02/27/18 at 08:41; Stop 02/27/18 at 14:40; Status DC Sodium Chloride 1,000 ml @ 400 mls/hr Q2H30M PRN IV PATENCY; Start 02/27/18 at 08:41; Stop 02/27/18 at 20:40 Info (PHARMACY MONITORING -- do not chart) 1 each PRN DAILY PRN MC SEE COMMENTS ; Start 02/27/18 at 08:45; Status UNV Info (PHARMACY MONITORING -- do not chart) 1 each PRN DAILY PRN MC SEE COMMENTS ; Start 02/27/18 at 08:45 Lidocaine HCl (Xylocaine-Mpf 2% Vial) 2 ml 1X ONCE INJ ; Start 02/27/18 at 09: 00; Stop 02/27/18 at 09:01; Status DC Lidocaine HCl (Lidocaine Pf 2% Vial) 5 ml 1X ONCE IJ Last administered on 02/27at 09:00; Start 02/27/18 at 09:00; Stop 02/27/18 at 09:01; Status DC Alprazolam (Xanax) 0.25 mg PRN DAILY PRN PO ANXIETY / AGITATION; Start at 09:15 Atorvastatin Calcium (Lipitor) 10 mg QHS PO ; Start 02/27/18 at 21:00 Gabapentin (Neurontin) 300 mg QHS PO ; Start 02/27/18 at 21:00 Sertraline HCl (Zoloft) 50 mg QHS PO ; Start 02/27/18 at 21:00 Acetaminophen/ Hydrocodone Bitart (Lortab 10/325) 1 tab PRN Q6HRS PRN PO PAIN; Start 02/27/18 at 09:30; Stop 02/27/18 at 09:30; Status DC Vancomycin HCl 2 gm/Sodium Chloride 500 ml @ 250 mls/hr 1X ONCE IV ; Start at 09:15; Stop 02/27/18 at 11:14; Status UNV Vancomycin HCl (Vanco Per Pharmacy) 1 each PRN DAILY PRN MC SEE COMMENTS Last administered on 02/27/18at 16:00; Start 02/27/18 at 09:15 Acetaminophen (Tylenol) 650 mg PRN Q6HRS PRN PO FEVER; Start 02/27/18 at 09:15 Ondansetron HCl (Zofran) 4 mg PRN Q6HRS PRN IV NAUSEA/VOMITING; Start 02/27/18 at 09:15 Docusate Sodium (Colace) 100 mg PRN DAILY PRN PO CONSTIPATION; Start 02/27/18 at 09:15 Heparin Sodium (Porcine) (Heparin Sodium) 5,000 unit Q8HRS SQ ; Start 02/27/18 at 14:00 Acetaminophen/ Hydrocodone Bitart (Lortab 10/325) 1 tab PRN Q6HRS PRN PO PAIN Last administered on 02/27/18at 09:41; Start 02/27/18 at 09:30 Vancomycin HCl 1.75 gm/Sodium Chloride 500 ml @ 250 mls/hr 1X ONCE IV ; Start 02/27/18 at 12:00; Stop 02/27/18 at 13:59; Status DC Piperacillin Sod/ Tazobactam Sod 2.25 gm/Sodium Chloride 50 ml @ 100 mls/hr Q8HRS IV ; Start 02/27/18 at 15:00 Active Scripts Active FENTANYL 25mcg/hr (Fentanyl) 1 Each Patch.td72 1 Patch TD Q3DAYS 30 Days Atorvastatin Calcium 10 Mg Tablet 10 Mg PO QHS 30 Days Carvedilol (Carvedilol) 3.125 Mg Tablet 3.125 Mg PO BIDWMEALS Reported Strang 10-325 Tablet (Acetaminophen/Hydrocodone Bitart) 1 Each Tablet 1 Tab PO Q4 -6HRS Polyethylene Glycol 3350 17 Gm Powd.pack 17 Gm PO PRN DAILY PRN Sertraline Hcl 50 Mg Tablet 50 Mg PO QHS Sensipar (Cinacalcet Hcl) 30 Mg Tablet 1 Tab PO QHS Alayna-Oneil Rx Tablet (Vit B Cmplx 3/Fa/Vit C/Biotin) 1 Each Tablet 1 Each PO DAILY Cranberry Plus Vitamin C Sftgl (Cranberry Conc/Ascorbic Acid) 1 Each Capsule 1 Each PO QHS Alprazolam 0.25 Mg Tablet 1 Tab PO DAILY PRN Plavix (Clopidogrel Bisulfate) 75 Mg Tablet 75 Mg PO QHS Calcium Acetate 667 Mg Tablet 2 Tab PO TIDWMEALS Tylenol Extra Strength (Acetaminophen) 500 Mg Tablet 500 Mg PO PRN Q12HRS PRN Gabapentin (Gabapentin) 300 Mg Capsule 300 Mg PO QHS Benadryl Allergy (Diphenhydramine Hcl) 25 Mg Tablet 25 Mg PO PRN not given in the hospital Aspir 81 (Aspirin) 81 Mg Tablet. 81 Mg PO QHS Allergies Allergies: Allergies Coded Allergies Type Severity Reaction Last Updated Verified ciprofloxacin Allergy Intermediate Rash 05/08/17 Yes morphine Adverse Reaction Severe makes her skin crawl 05/08/17 Yes oxycodone Adverse Reaction Severe makes her skin crawl 05/08/17 Yes adhesive Adverse Reaction Intermediate blisters 05/08/17 Yes ROS Review of System The patient denies any associated fevers, chills, headache, ear pain, rhinorrhea , sore throat, stiff neck, productive cough, chest pain, shortness of breath, back or flank pain, abdominal pain, nausea, vomiting, diarrhea, constipation, dysuria, rash, numbness, weakness, tingling, incontinence, difficulty ambulating, or diaphoresis. Physical Exam Physical Exam General: Well developed, well nourished, no acute distress, well appearing HEENT: Pupils equally round and reactive to light, EOMI, no discharge, normal conjunctiva Neck: Supple, no nuchal rigidity, no JVD, trachea midline, no tenderness Cardiac: RRR, no murmurs, no gallops, no rubs Chest/Lungs: CTAB, no wheeze, no rhonchi, no crackles Abdomen: soft, non-distended, no guarding, no peritoneal signs, non-tender Back: No tenderness Extremities: no edema, pulses intact, non-tender,capillary refill <3 sec bilateral upper and lower extremities, Neuro: Alert and oriented x 4, no focal deficits, normal speech Vitals Vitals: Vital Signs Date Time Temp Pulse Resp B/P (MAP) Pulse Ox O2 Delivery O2 Flow Rate FiO2 02/27/18 10:07 Room Air 02/27/18 08:00 97.9 60 16 98/38 (58) 94 97.9 02/26/18 20:55 2.0 Labs Labs Laboratory Tests Test 02/25/18 18:05 02/26/18 00:01 02/26/18 11:34 02/26/18 15:00 White Blood Count 16.5 x10^3/uL (4.0-11.0) 7.8 x10^3/uL (4.0-11.0) Red Blood Count 2.76 x10^6/uL (3.50-5.40) 2.29 x10^6/uL (3.50-5.40) Hemoglobin 8.2 g/dL (12.0-15.5) 7.1 g/dL (12.0-15.5) Hematocrit 26.5 % (36.0-47.0) 21.2 % (36.0-47.0) Mean Corpuscular Volume 96 fL (79-100) 93 fL (79-100) Mean Corpuscular Hemoglobin 30 pg (25-35) 31 pg (25-35) Mean Corpuscular Hemoglobin Concent 31 g/dL (31-37) 34 g/dL (31-37) Red Cell Distribution Width 19.0 % (11.5-14.5) 19.0 % (11.5-14.5) Platelet Count 307 x10^3/uL (140-400) 238 x10^3/uL (140-400) Neutrophils (%) (Auto) 86 % (31-73) 83 % (31-73) Lymphocytes (%) (Auto) 7 % (24-48) 10 % (24-48) Monocytes (%) (Auto) 6 % (0-9) 6 % (0-9) Eosinophils (%) (Auto) 0 % (0-3) 0 % (0-3) Basophils (%) (Auto) 1 % (0-3) 1 % (0-3) Neutrophils # (Auto) 14.2 x10^3uL (1.8-7.7) 6.4 x10^3uL (1.8-7.7) Lymphocytes # (Auto) 1.2 x10^3/uL (1.0-4.8) 0.7 x10^3/uL (1.0-4.8) Monocytes # (Auto) 1.0 x10^3/uL (0.0-1.1) 0.5 x10^3/uL (0.0-1.1) Eosinophils # (Auto) 0.0 x10^3/uL (0.0-0.7) 0.0 x10^3/uL (0.0-0.7) Basophils # (Auto) 0.1 x10^3/uL (0.0-0.2) 0.1 x10^3/uL (0.0-0.2) Segmented Neutrophils % 89 % (35-66) Band Neutrophils % 2 % (0-9) Lymphocytes % 5 % (24-48) Monocytes % 4 % (0-10) Toxic Granulation Slight Platelet Estimate Adequate (ADEQUATE) Polychromasia Mod Anisocytosis Mod Schistocytes Few Sodium Level 136 mmol/L (136-145) 136 mmol/L (136-145) Potassium Level 6.7 mmol/L (3.5-5.1) 5.9 mmol/L (3.5-5.1) Chloride Level 98 mmol/L (98-107) 100 mmol/L (98-107) Carbon Dioxide Level 21 mmol/L (21-32) 23 mmol/L (21-32) Anion Gap 17 (6-14) 13 (6-14) Blood Urea Nitrogen 65 mg/dL (7-20) 59 mg/dL (7-20) Creatinine 9.6 mg/dL (0.6-1.0) 8.5 mg/dL (0.6-1.0) Estimated GFR (Cockcroft-Gault) 4.1 4.7 BUN/Creatinine Ratio 7 (6-20) Glucose Level 110 mg/dL (70-99) 99 mg/dL (70-99) Calcium Level 9.3 mg/dL (8.5-10.1) 8.6 mg/dL (8.5-10.1) Total Bilirubin 0.4 mg/dL (0.2-1.0) Aspartate Amino Transf (AST/SGOT) 91 U/L (15-37) Alanine Aminotransferase (ALT/SGPT) 52 U/L (14-59) Alkaline Phosphatase 151 U/L (46-116) TP-Nfc-N-Type Natriuretic Peptide > 28159 pg/mL (0-124) Total Protein 5.8 g/dL (6.4-8.2) Albumin 2.2 g/dL (3.4-5.0) Albumin/Globulin Ratio 0.6 (1.0-1.7) Nasal Screen MRSA (PCR) Negative (Negative) Glucose (Fingerstick) 66 mg/dL (70-99) Test 02/26/18 20:41 02/27/18 06:50 02/27/18 07:20 02/27/18 11:42 Glucose (Fingerstick) 125 mg/dL (70-99) 87 mg/dL (70-99) 106 mg/dL (70-99) White Blood Count 8.1 x10^3/uL (4.0-11.0) Red Blood Count 2.40 x10^6/uL (3.50-5.40) Hemoglobin 7.4 g/dL (12.0-15.5) Hematocrit 22.7 % (36.0-47.0) Mean Corpuscular Volume 95 fL (79-100) Mean Corpuscular Hemoglobin 31 pg (25-35) Mean Corpuscular Hemoglobin Concent 32 g/dL (31-37) Red Cell Distribution Width 20.9 % (11.5-14.5) Platelet Count 194 x10^3/uL (140-400) Neutrophils (%) (Auto) 74 % (31-73) Lymphocytes (%) (Auto) 16 % (24-48) Monocytes (%) (Auto) 9 % (0-9) Eosinophils (%) (Auto) 1 % (0-3) Basophils (%) (Auto) 1 % (0-3) Neutrophils # (Auto) 6.0 x10^3uL (1.8-7.7) Lymphocytes # (Auto) 1.3 x10^3/uL (1.0-4.8) Monocytes # (Auto) 0.7 x10^3/uL (0.0-1.1) Eosinophils # (Auto) 0.1 x10^3/uL (0.0-0.7) Basophils # (Auto) 0.1 x10^3/uL (0.0-0.2) Sodium Level 138 mmol/L (136-145) Potassium Level 4.7 mmol/L (3.5-5.1) Chloride Level 101 mmol/L (98-107) Carbon Dioxide Level 26 mmol/L (21-32) Anion Gap 11 (6-14) Blood Urea Nitrogen 40 mg/dL (7-20) Creatinine 6.7 mg/dL (0.6-1.0) Estimated GFR (Cockcroft-Gault) 6.2 Glucose Level 98 mg/dL (70-99) Calcium Level 8.1 mg/dL (8.5-10.1) Phosphorus Level 6.5 mg/dL (2.6-4.7) Magnesium Level 1.9 mg/dL (1.8-2.4) Creatine Kinase 42 U/L (26-192) Thyroid Stimulating Hormone (TSH) 8.917 uIU/mL (0.358-3.74) Test 02/27/18 16:38 Glucose (Fingerstick) 74 mg/dL (70-99) Laboratory Tests Test 02/26/18 20:41 02/27/18 06:50 02/27/18 07:20 02/27/18 11:42 Glucose (Fingerstick) 125 mg/dL (70-99) 87 mg/dL (70-99) 106 mg/dL (70-99) White Blood Count 8.1 x10^3/uL (4.0-11.0) Red Blood Count 2.40 x10^6/uL (3.50-5.40) Hemoglobin 7.4 g/dL (12.0-15.5) Hematocrit 22.7 % (36.0-47.0) Mean Corpuscular Volume 95 fL (79-100) Mean Corpuscular Hemoglobin 31 pg (25-35) Mean Corpuscular Hemoglobin Concent 32 g/dL (31-37) Red Cell Distribution Width 20.9 % (11.5-14.5) Platelet Count 194 x10^3/uL (140-400) Neutrophils (%) (Auto) 74 % (31-73) Lymphocytes (%) (Auto) 16 % (24-48) Monocytes (%) (Auto) 9 % (0-9) Eosinophils (%) (Auto) 1 % (0-3) Basophils (%) (Auto) 1 % (0-3) Neutrophils # (Auto) 6.0 x10^3uL (1.8-7.7) Lymphocytes # (Auto) 1.3 x10^3/uL (1.0-4.8) Monocytes # (Auto) 0.7 x10^3/uL (0.0-1.1) Eosinophils # (Auto) 0.1 x10^3/uL (0.0-0.7) Basophils # (Auto) 0.1 x10^3/uL (0.0-0.2) Sodium Level 138 mmol/L (136-145) Potassium Level 4.7 mmol/L (3.5-5.1) Chloride Level 101 mmol/L (98-107) Carbon Dioxide Level 26 mmol/L (21-32) Anion Gap 11 (6-14) Blood Urea Nitrogen 40 mg/dL (7-20) Creatinine 6.7 mg/dL (0.6-1.0) Estimated GFR (Cockcroft-Gault) 6.2 Glucose Level 98 mg/dL (70-99) Calcium Level 8.1 mg/dL (8.5-10.1) Phosphorus Level 6.5 mg/dL (2.6-4.7) Magnesium Level 1.9 mg/dL (1.8-2.4) Creatine Kinase 42 U/L (26-192) Thyroid Stimulating Hormone (TSH) 8.917 uIU/mL (0.358-3.74) Test 02/27/18 16:38 Glucose (Fingerstick) 74 mg/dL (70-99) LORENE PERDOMO MD Feb 27, 2018 17:07
[2018-02-27 19:00] VITALS: BP 134/54
[2018-02-27] MEDS: ASPIRIN ENTERIC COATED 81 MG TABLET.DR. PO SCH (21:19)
[2018-02-27] MEDS: GABAPENTIN 300 MG CAPSULE. PO SCH (21:19)
[2018-02-27] MEDS: SERTRALINE 50 MG TABLET. PO SCH (21:19)
[2018-02-27] MEDS: CLOPIDOGREL BISULFATE 75 MG TABLET PO SCH (21:19)
[2018-02-27] MEDS: ATORVASTATIN CALCIUM 10 MG TABLET. PO SCH (21:19)
[2018-02-27] MEDS: CINACALCET HCL 30 MG TABLET PO SCH (21:19)
[2018-02-27 23:00] VITALS: BP 96/54
--- NOTE | 2018-02-27 23:29 | CONS ---
DATE OF CONSULTATION: 02/27/2018 This is Tony Vaughan, nurse practitioner, dictating for Vish Mora M.D., Infectious Disease. REFERRING PHYSICIAN: Karen Mcmahon M.D. REASON FOR CONSULTATION: Right leg ulcer. HISTORY OF PRESENT ILLNESS: This patient is a 68-year-old female with a past medical history of chronic kidney disease, on hemodialysis; peripheral arterial disease and diabetes mellitus type 2; who [facility] for a nonhealing right lower extremity ulcer that has become infected. Gram-positive cocci seen on Gram stain. Identification and susceptibilities are pending. She is currently on vancomycin and Zosyn. The patient denies fevers, chills, sweats or body aches. The patient complains of ongoing leg pain. She denies fevers, chills, sweats or body aches. She was seen by Dr. Riddle earlier today. Angiography is under consideration, pending goals of care. Denies nausea, vomiting or diarrhea. Denies cough, short of air or chest discomfort. Denies headache, nasal/sinus congestion or sore throat. She had a run of [place] earlier. PAST MEDICAL HISTORY: Diabetes mellitus type 2; peripheral neuropathy; heart murmur; peripheral vascular disease; coronary artery disease; congestive heart failure; hypercholesterolemia; hypertension; chronic obstructive pulmonary disease; end-stage renal disease, on hemodialysis; degenerative disk disease and history of E. coli urinary tract infection, intermittent sensitivity to cefuroxime. PAST SURGICAL HISTORY: Cataract extraction, coronary stent placement, pacemaker/AICD, hysterectomy, cholecystectomy, right rotator cuff repair, right fifth toe surgery, ganglion cyst removed and AV fistula. SOCIAL HISTORY: The patient lives at home. She drinks alcohol socially. She has smoked 1 pack per day for 40 years. FAMILY HISTORY: Noncontributory. ALLERGIES: ADHESIVE, CIPROFLOXACIN causes "go crazy," MORPHINE and OXYCODONE. REVIEW OF SYSTEMS: As per HPI, otherwise all other review of systems are negative. PHYSICAL EXAMINATION: VITAL SIGNS: Temperature is 97.9, blood pressure 98/38, heart rate 60, respiratory rate 16, pulse oximetry 94% on room air and BMI 31. HEENT: Pupils equally round. Normal conjunctivae. Oral cavity: Pharynx pink and moist. NECK: Supple. LUNGS: Clear to auscultation. HEART: S1 and S2. AICD. ABDOMEN: Soft and nontender. Bowel sounds present. EXTREMITIES: Unremarkable except right lower extremity 1+ edema. She has deep ulcer, medial right lower extremity with foul odor and necrotic tissue. She has a smaller necrotic ulcer lateral ankle as well. Dorsalis pedis pulses difficult to palpate. SKIN: Warm without rash. NEUROLOGICAL: Alert and oriented x 3. LABORATORY DATA: WBC 8.1; hemoglobin 7.5 and platelets 194,000. Electrolytes are unremarkable. Creatinine 6.7, BUN 40 and glucose 98. Total bilirubin 0.4, AST 91 and ALT 52. BNP greater than 35,000. Albumin 2.2. MRSA screen negative. Culture from leg wound shows gram-positive cocci on Gram stain so far. RADIOLOGICAL DATA: Chest x-ray shows mild congestive changes and bibasilar lung airspace opacities, likely atelectasis or infiltrate. IMPRESSION: 1. Nonhealing right ankle wound with cellulitis. 2. Necrotic ulcer, right lateral ankle. 3. Diabetes mellitus type 2. 4. Peripheral vascular disease. 5. Chronic kidney disease, on hemodialysis. 6. Run of ventricular tachycardia. 7. Tobaccoism. PLAN: Continue the vancomycin and Zosyn. Monitor laboratory values and temperature. We will follow blood culture results. Local wound care. Smoking cessation discussed. The patient may need a BKA. Vascular is following. Thank you, Dr. Mcmahon for asking us to participate in this patient's care. Should you have further questions or concerns, please call. The patient seen and examined and plan of care implemented by Dr. Vish Mora. VISH MORA MD DR: HAWK/williams JOB#: [id number] / [id number]
[2018-02-28 03:00] VITALS: BP 104/52
[2018-02-28] MEDS: HEPARIN for SUB-Q USE 5,000 UNIT/ML VIAL. SQ SCH ×3 (06:00→22:54)
[2018-02-28] MEDS: PIPERACILLIN/TAZOBACTAM 2.25 GM in IV NORMAL SALINE 50ML 50 ML IV SCH ×3 (06:15→22:55)
[2018-02-28] MEDS: HYDROcodone/APAP 10/325 1 TAB TABLET PO PRN ×2 (06:15→18:11)
[2018-02-28 07:00] VITALS: BP 106/41
[2018-02-28] MEDS: CARVEDILOL 3.125 MG TABLET. PO SCH ×2 (08:00→16:55)
[2018-02-28] MEDS: traMADol 50 MG TABLET PO PRN ×2 (09:04→22:55)
[2018-02-28] MEDS: FOLIC/VIT B COMP W-C (RENAL) TABLET. PO SCH (09:04)
[2018-02-28] MEDS: LACTOBACILLUS RHAMNOSUS GG 1 CAPSULE. PO SCH ×2 (09:04→22:54)
[2018-02-28 09:50] LABS: BASO # 0.1 x10^3/uL (0.0-0.2); BASO % 1 % (0-3); EOS # 0.1 x10^3/uL (0.0-0.7); EOS % 1 % (0-3); HEMATOCRIT 22.5 % (36.0-47.0); HEMOGLOBIN 7.5 g/dL (12.0-15.5); LYMPH # 1.1 x10^3/uL (1.0-4.8); LYMPH % 13 % (24-48); MEAN CORPUSCULAR HEMOGLOBIN 31 pg (25-35); MEAN CORPUSCULAR HGB CONC 33 g/dL (31-37); MEAN CORPUSCULAR VOLUME 94 fL (79-100); MONO # 0.7 x10^3/uL (0.0-1.1); MONO % 9 % (0-9); NEUT # 6.4 x10^3uL (1.8-7.7); NEUT % 77 % (31-73); PLATELET COUNT 205 x10^3/uL (140-400); RED CELL DISTRIBUTION WIDTH 22.1 % (11.5-14.5); WHITE BLOOD COUNT 8.4 x10^3/uL (4.0-11.0)
[2018-02-28 10:00] LABS: CALCIUM 7.6 mg/dL (8.5-10.1); CREATININE 4.2 mg/dL (0.6-1.0); GFR 10.6; POTASSIUM 4.2 mmol/L (3.5-5.1)
--- NOTE | 2018-02-28 10:48 | PDOC ---
Infectious Disease Note Subjective Subjective Feeling alright No F/C/S/pain/N/V/D/SOA ROS ROS per HPI Vital Sign Vital Signs Vital Signs Date Time Temp Pulse Resp B/P (MAP) Pulse Ox O2 Delivery O2 Flow Rate FiO2 02/28/18 10:04 Room Air 02/28/18 07:00 98.6 69 18 106/41 (62) 94 98.6 Physical Exam PHYSICAL EXAM GENERAL: Sitting in the chair, tired appearance, NAD HEENT: Pupils equally round. Normal conjunctivae. Oral cavity pink and moist. NECK: Supple. LUNGS: Clear to auscultation. HEART: S1 and S2. AICD. ABDOMEN: Soft and nontender. Bowel sounds present. EXTREMITIES: Unremarkable except right lower extremity 1+ edema. Large deep ulcer, medial right lower extremity with foul odor and necrotic tissue. Also has a smaller necrotic ulcer lateral ankle as well. DP pulse difficult to palpate. SKIN: Warm without rash. LUE-AV fistula NEUROLOGICAL: Alert and oriented x 3. Labs Lab Laboratory Tests Test 02/27/18 11:42 02/27/18 16:38 02/28/18 09:23 Glucose (Fingerstick) 106 mg/dL (70-99) 74 mg/dL (70-99) White Blood Count 8.4 x10^3/uL (4.0-11.0) Red Blood Count 2.40 x10^6/uL (3.50-5.40) Hemoglobin 7.5 g/dL (12.0-15.5) Hematocrit 22.5 % (36.0-47.0) Mean Corpuscular Volume 94 fL (79-100) Mean Corpuscular Hemoglobin 31 pg (25-35) Mean Corpuscular Hemoglobin Concent 33 g/dL (31-37) Red Cell Distribution Width 22.1 % (11.5-14.5) Platelet Count 205 x10^3/uL (140-400) Neutrophils (%) (Auto) 77 % (31-73) Lymphocytes (%) (Auto) 13 % (24-48) Monocytes (%) (Auto) 9 % (0-9) Eosinophils (%) (Auto) 1 % (0-3) Basophils (%) (Auto) 1 % (0-3) Neutrophils # (Auto) 6.4 x10^3uL (1.8-7.7) Lymphocytes # (Auto) 1.1 x10^3/uL (1.0-4.8) Monocytes # (Auto) 0.7 x10^3/uL (0.0-1.1) Eosinophils # (Auto) 0.1 x10^3/uL (0.0-0.7) Basophils # (Auto) 0.1 x10^3/uL (0.0-0.2) Sodium Level 141 mmol/L (136-145) Potassium Level 4.2 mmol/L (3.5-5.1) Chloride Level 102 mmol/L (98-107) Carbon Dioxide Level 30 mmol/L (21-32) Anion Gap 9 (6-14) Blood Urea Nitrogen 19 mg/dL (7-20) Creatinine 4.2 mg/dL (0.6-1.0) Estimated GFR (Cockcroft-Gault) 10.6 Glucose Level 122 mg/dL (70-99) Calcium Level 7.6 mg/dL (8.5-10.1) Micro GRAM STAIN RES 2 Final Comment Many gram positive cocci. Objective Assessment Nonhealing right ankle wound with cellulitis. GPC Necrotic ulcer right lateral ankle DM PVD CKD on HD AICD in place Run V-tach Tobaccoism Plan Plan of Care Continue vancomycin and Zosyn Monitor labs/temp f/u cultures Local wound care Smoking cessation May need BKA. vascular following Attending Co-Sign The patient was seen and interviewed as well as examined at the bedside. The chart was reviewed. The case was discussed. Agree with the plan of care. TAMMY GAYTAN APRN Feb 28, 2018 10:48 YAZ QUARLES MD Feb 28, 2018 13:39
--- NOTE | 2018-02-28 10:58 | PDOC ---
PROGRESS NOTES Chief Complaint Chief Complaint ESRD on HD ttsat, needing dialysis emergently rt leg unhealing wound s/p wound vac, worse now Hyperkalemia rt hand weakness, need to rule out stroke Generalized weakness Anemia chronic, with ESRD NONCOMPLIANCE, REFUse HD SOMETIMES Tobacco abuse disorder fluid overload severe protein-caloric malnutrition DIABETES HTN PPMICD PAD Atherosclerosis with ulceration of the right lower extremity--the patient would like to proceed with medical therapy and attempted limb salvage. pain medication overuse, leading to excess seadation and memory loss plan: vascular , good candidate for sx months ago.angiogram, defer to vascular id consult add vanco for now, wound c+ gram + cocci cont some home meds, bp lower side, on coreg low dose on asa, lipitor., will get MRI To rule out stroke, neuro consult resume pain meds, add lortab 10mg q6h prn, cont tramadol. hold fentanyl patch fu with renal, need HD, agrees wit dialysis plan for now PTOT dvt ppx History of Present Illness History of Present Illness ROS: no fever, chills, sob or chest pain c/o rt hand weakness, cannot hold glass, strength 4/5, left side 5/5 c/o rt leg worsening ulcer, had wound vac for 1month, off for 2ds. but wound clinic and her pain doc didnot tell her that till ERP i open the dressing , the ulcer looks bad, with erythema around, and yellow , foul smell discharge at ulcer, obvious infected. agree HD for now refuse hospice as per PAT note takes lortab 10mg q4h at home , c/o rt leg pain agrees she takes too much lortab, wants to taper and try other means of pain relief Vitals Vitals Vital Signs Date Time Temp Pulse Resp B/P (MAP) Pulse Ox O2 Delivery O2 Flow Rate FiO2 02/28/18 10:04 Room Air 02/28/18 07:00 98.6 69 18 106/41 (62) 94 98.6 Physical Exam Physical Exam GENERAL: Sitting in the chair, tired appearance, NAD HEENT: Pupils equally round. Normal conjunctivae. Oral cavity pink and moist. NECK: Supple. LUNGS: Clear to auscultation. HEART: S1 and S2. AICD. ABDOMEN: Soft and nontender. Bowel sounds present. EXTREMITIES: Unremarkable except right lower extremity 1+ edema. Large deep ulcer, medial right lower extremity with foul odor and necrotic tissue. Also has a smaller necrotic ulcer lateral ankle as well. DP pulse difficult to palpate. SKIN: Warm without rash. LUE-AV fistula NEUROLOGICAL: Alert and oriented x 3. General: Alert, Oriented X3, Cooperative, mild distress Heart: Regular rate, Normal S1, Normal S2 Lungs: Clear, Other Abdomen: Normal bowel sounds, Soft, No tenderness Extremities: No cyanosis, Other (right ankle wound bandaged deep soft tissue infection) Labs LABS Laboratory Tests Test 02/27/18 11:42 02/27/18 16:38 02/28/18 09:23 Glucose (Fingerstick) 106 mg/dL (70-99) 74 mg/dL (70-99) White Blood Count 8.4 x10^3/uL (4.0-11.0) Red Blood Count 2.40 x10^6/uL (3.50-5.40) Hemoglobin 7.5 g/dL (12.0-15.5) Hematocrit 22.5 % (36.0-47.0) Mean Corpuscular Volume 94 fL (79-100) Mean Corpuscular Hemoglobin 31 pg (25-35) Mean Corpuscular Hemoglobin Concent 33 g/dL (31-37) Red Cell Distribution Width 22.1 % (11.5-14.5) Platelet Count 205 x10^3/uL (140-400) Neutrophils (%) (Auto) 77 % (31-73) Lymphocytes (%) (Auto) 13 % (24-48) Monocytes (%) (Auto) 9 % (0-9) Eosinophils (%) (Auto) 1 % (0-3) Basophils (%) (Auto) 1 % (0-3) Neutrophils # (Auto) 6.4 x10^3uL (1.8-7.7) Lymphocytes # (Auto) 1.1 x10^3/uL (1.0-4.8) Monocytes # (Auto) 0.7 x10^3/uL (0.0-1.1) Eosinophils # (Auto) 0.1 x10^3/uL (0.0-0.7) Basophils # (Auto) 0.1 x10^3/uL (0.0-0.2) Sodium Level 141 mmol/L (136-145) Potassium Level 4.2 mmol/L (3.5-5.1) Chloride Level 102 mmol/L (98-107) Carbon Dioxide Level 30 mmol/L (21-32) Anion Gap 9 (6-14) Blood Urea Nitrogen 19 mg/dL (7-20) Creatinine 4.2 mg/dL (0.6-1.0) Estimated GFR (Cockcroft-Gault) 10.6 Glucose Level 122 mg/dL (70-99) Calcium Level 7.6 mg/dL (8.5-10.1) Assessment and Plan Assessmemt and Plan Problems Medical Problems: (1) Anemia Status: Acute (2) Generalized weakness Status: Acute (3) Hyperkalemia Status: Acute Comment Review of Relevant I have reviewed the following items ashley (where applicable) has been applied. Labs Laboratory Tests Test 02/26/18 11:34 02/26/18 15:00 02/26/18 20:41 02/27/18 06:50 Glucose (Fingerstick) 66 mg/dL (70-99) 125 mg/dL (70-99) White Blood Count 7.8 x10^3/uL (4.0-11.0) 8.1 x10^3/uL (4.0-11.0) Red Blood Count 2.29 x10^6/uL (3.50-5.40) 2.40 x10^6/uL (3.50-5.40) Hemoglobin 7.1 g/dL (12.0-15.5) 7.4 g/dL (12.0-15.5) Hematocrit 21.2 % (36.0-47.0) 22.7 % (36.0-47.0) Mean Corpuscular Volume 93 fL (79-100) 95 fL (79-100) Mean Corpuscular Hemoglobin 31 pg (25-35) 31 pg (25-35) Mean Corpuscular Hemoglobin Concent 34 g/dL (31-37) 32 g/dL (31-37) Red Cell Distribution Width 19.0 % (11.5-14.5) 20.9 % (11.5-14.5) Platelet Count 238 x10^3/uL (140-400) 194 x10^3/uL (140-400) Neutrophils (%) (Auto) 83 % (31-73) 74 % (31-73) Lymphocytes (%) (Auto) 10 % (24-48) 16 % (24-48) Monocytes (%) (Auto) 6 % (0-9) 9 % (0-9) Eosinophils (%) (Auto) 0 % (0-3) 1 % (0-3) Basophils (%) (Auto) 1 % (0-3) 1 % (0-3) Neutrophils # (Auto) 6.4 x10^3uL (1.8-7.7) 6.0 x10^3uL (1.8-7.7) Lymphocytes # (Auto) 0.7 x10^3/uL (1.0-4.8) 1.3 x10^3/uL (1.0-4.8) Monocytes # (Auto) 0.5 x10^3/uL (0.0-1.1) 0.7 x10^3/uL (0.0-1.1) Eosinophils # (Auto) 0.0 x10^3/uL (0.0-0.7) 0.1 x10^3/uL (0.0-0.7) Basophils # (Auto) 0.1 x10^3/uL (0.0-0.2) 0.1 x10^3/uL (0.0-0.2) Sodium Level 136 mmol/L (136-145) 138 mmol/L (136-145) Potassium Level 5.9 mmol/L (3.5-5.1) 4.7 mmol/L (3.5-5.1) Chloride Level 100 mmol/L (98-107) 101 mmol/L (98-107) Carbon Dioxide Level 23 mmol/L (21-32) 26 mmol/L (21-32) Anion Gap 13 (6-14) 11 (6-14) Blood Urea Nitrogen 59 mg/dL (7-20) 40 mg/dL (7-20) Creatinine 8.5 mg/dL (0.6-1.0) 6.7 mg/dL (0.6-1.0) Estimated GFR (Cockcroft-Gault) 4.7 6.2 Glucose Level 99 mg/dL (70-99) 98 mg/dL (70-99) Calcium Level 8.6 mg/dL (8.5-10.1) 8.1 mg/dL (8.5-10.1) Phosphorus Level 6.5 mg/dL (2.6-4.7) Magnesium Level 1.9 mg/dL (1.8-2.4) Creatine Kinase 42 U/L (26-192) Thyroid Stimulating Hormone (TSH) 8.917 uIU/mL (0.358-3.74) Test 02/27/18 07:20 02/27/18 11:42 02/27/18 16:38 02/28/18 09:23 Glucose (Fingerstick) 87 mg/dL (70-99) 106 mg/dL (70-99) 74 mg/dL (70-99) White Blood Count 8.4 x10^3/uL (4.0-11.0) Red Blood Count 2.40 x10^6/uL (3.50-5.40) Hemoglobin 7.5 g/dL (12.0-15.5) Hematocrit 22.5 % (36.0-47.0) Mean Corpuscular Volume 94 fL (79-100) Mean Corpuscular Hemoglobin 31 pg (25-35) Mean Corpuscular Hemoglobin Concent 33 g/dL (31-37) Red Cell Distribution Width 22.1 % (11.5-14.5) Platelet Count 205 x10^3/uL (140-400) Neutrophils (%) (Auto) 77 % (31-73) Lymphocytes (%) (Auto) 13 % (24-48) Monocytes (%) (Auto) 9 % (0-9) Eosinophils (%) (Auto) 1 % (0-3) Basophils (%) (Auto) 1 % (0-3) Neutrophils # (Auto) 6.4 x10^3uL (1.8-7.7) Lymphocytes # (Auto) 1.1 x10^3/uL (1.0-4.8) Monocytes # (Auto) 0.7 x10^3/uL (0.0-1.1) Eosinophils # (Auto) 0.1 x10^3/uL (0.0-0.7) Basophils # (Auto) 0.1 x10^3/uL (0.0-0.2) Sodium Level 141 mmol/L (136-145) Potassium Level 4.2 mmol/L (3.5-5.1) Chloride Level 102 mmol/L (98-107) Carbon Dioxide Level 30 mmol/L (21-32) Anion Gap 9 (6-14) Blood Urea Nitrogen 19 mg/dL (7-20) Creatinine 4.2 mg/dL (0.6-1.0) Estimated GFR (Cockcroft-Gault) 10.6 Glucose Level 122 mg/dL (70-99) Calcium Level 7.6 mg/dL (8.5-10.1) Laboratory Tests Test 02/27/18 11:42 02/27/18 16:38 02/28/18 09:23 Glucose (Fingerstick) 106 mg/dL (70-99) 74 mg/dL (70-99) White Blood Count 8.4 x10^3/uL (4.0-11.0) Red Blood Count 2.40 x10^6/uL (3.50-5.40) Hemoglobin 7.5 g/dL (12.0-15.5) Hematocrit 22.5 % (36.0-47.0) Mean Corpuscular Volume 94 fL (79-100) Mean Corpuscular Hemoglobin 31 pg (25-35) Mean Corpuscular Hemoglobin Concent 33 g/dL (31-37) Red Cell Distribution Width 22.1 % (11.5-14.5) Platelet Count 205 x10^3/uL (140-400) Neutrophils (%) (Auto) 77 % (31-73) Lymphocytes (%) (Auto) 13 % (24-48) Monocytes (%) (Auto) 9 % (0-9) Eosinophils (%) (Auto) 1 % (0-3) Basophils (%) (Auto) 1 % (0-3) Neutrophils # (Auto) 6.4 x10^3uL (1.8-7.7) Lymphocytes # (Auto) 1.1 x10^3/uL (1.0-4.8) Monocytes # (Auto) 0.7 x10^3/uL (0.0-1.1) Eosinophils # (Auto) 0.1 x10^3/uL (0.0-0.7) Basophils # (Auto) 0.1 x10^3/uL (0.0-0.2) Sodium Level 141 mmol/L (136-145) Potassium Level 4.2 mmol/L (3.5-5.1) Chloride Level 102 mmol/L (98-107) Carbon Dioxide Level 30 mmol/L (21-32) Anion Gap 9 (6-14) Blood Urea Nitrogen 19 mg/dL (7-20) Creatinine 4.2 mg/dL (0.6-1.0) Estimated GFR (Cockcroft-Gault) 10.6 Glucose Level 122 mg/dL (70-99) Calcium Level 7.6 mg/dL (8.5-10.1) Microbiology 02/26/18 Anaerobic/Aerobic Culture, Resulted Pending 02/26/18 Anaerobic Culture Result 1 (LUZ), Resulted Pending 02/26/18 Aerobic Culture, Resulted Pending 02/26/18 Aerobic Culture Result 1 (LUZ), Resulted Pending 02/26/18 Gram Stain - Final, Resulted 02/26/18 Gram Stain Result 1 (LUZ) - Final, Resulted 02/26/18 Gram Stain Result 2 (LUZ) - Final, Resulted Medications Current Medications Sodium Bicarbonate (Sodium Bicarb Adult 8.4% Syr) 50 meq 1X ONCE IV Last administered on 02/25/18at 19:16; Start 02/25/18 at 19:00; Stop 02/25/18 at 19:01 ; Status DC Calcium Gluconate (Calcium Gluconate) 1,000 mg 1X ONCE IVP Last administered on 02/25/18at 19:07; Start 02/25/18 at 19:00; Stop 02/25/18 at 19:01; Status DC Dextrose (Dextrose 50%-Water Syringe) 25 gm 1X ONCE IV Last administered on at 19:14; Start 02/25/18 at 19:00; Stop 02/25/18 at 19:01; Status DC Insulin Human Regular (HumuLIN R VIAL) 10 unit 1X ONCE IV Last administered on 02/25/18at 19:13; Start 02/25/18 at 19:00; Stop 02/25/18 at 19:01; Status DC Albuterol Sulfate (Ventolin Neb Soln) 10 mg 1X ONCE CONT NEB ; Start 02/25/18 at 19:00; Stop 02/25/18 at 19:01; Status DC Ondansetron HCl (Zofran) 4 mg PRN Q8HRS PRN IV NAUSEA/VOMITING; Start 02/25/18 at 21:00; Stop 02/26/18 at 20:59; Status DC Aspirin (Ecotrin) 81 mg QHS PO Last administered on 02/27/18at 21:19; Start 02/26/18 at 21:00 Carvedilol (Coreg) 3.125 mg BIDWMEALS PO Last administered on 02/26/18at 21:05; Start 02/26/18 at 08:00 Cinacalcet (Sensipar) 30 mg QHS PO Last administered on 02/27/18 21:19; Start 02/26/18 at 21:00 Clopidogrel Bisulfate (Plavix) 75 mg QHS PO Last administered on 02/27/18 21: 19; Start 02/26/18 at 21:00 Polyethylene Glycol (miraLAX PACKET) 17 gm PRN DAILY PRN PO CONSTIPATION 1ST CHOICE; Start 02/26/18 at 09:00 Vitamin B Complex/ Vitamin C (Alayna-Oneil) 1 tab DAILY PO Last administered on at 09:04; Start 02/26/18 at 09:00 Sodium Chloride 1,000 ml @ 1,000 mls/hr Q1H PRN IV hypotension; Start 02/26/18 at 13:42; Stop 02/26/18 at 19:41; Status DC Sodium Chloride 1,000 ml @ 400 mls/hr Q2H30M PRN IV PATENCY; Start 02/26/18 at 13:42; Stop 02/27/18 at 01:42; Status DC Info (PHARMACY MONITORING -- do not chart) 1 each PRN DAILY PRN MC SEE COMMENTS ; Start 02/26/18 at 13:45; Stop 02/27/18 at 15:54; Status DC Lidocaine HCl (Xylocaine-Mpf 2% Vial) 0.5 ml 1X STAT ID Last administered on 02/26/18at 14:58; Start 02/26/18 at 14:46; Stop 02/26/18 at 14:50; Status DC Tramadol HCl (Ultram) 50 mg PRN Q6HRS PRN PO PAIN Last administered on 09:04; Start 02/26/18 at 20:00 Sodium Chloride 1,000 ml @ 1,000 mls/hr Q1H PRN IV hypotension; Start 02/27/18 at 08:41; Stop 02/27/18 at 14:40; Status DC Sodium Chloride 1,000 ml @ 400 mls/hr Q2H30M PRN IV PATENCY; Start 02/27/18 at 08:41; Stop 02/27/18 at 20:40; Status DC Info (PHARMACY MONITORING -- do not chart) 1 each PRN DAILY PRN MC SEE COMMENTS ; Start 02/27/18 at 08:45; Status UNV Info (PHARMACY MONITORING -- do not chart) 1 each PRN DAILY PRN MC SEE COMMENTS ; Start 02/27/18 at 08:45 Lidocaine HCl (Xylocaine-Mpf 2% Vial) 2 ml 1X ONCE INJ ; Start 02/27/18 at 09: 00; Stop 02/27/18 at 09:01; Status DC Lidocaine HCl (Lidocaine Pf 2% Vial) 5 ml 1X ONCE IJ Last administered on 02/27at 09:00; Start 02/27/18 at 09:00; Stop 02/27/18 at 09:01; Status DC Alprazolam (Xanax) 0.25 mg PRN DAILY PRN PO ANXIETY / AGITATION; Start at 09:15 Atorvastatin Calcium (Lipitor) 10 mg QHS PO Last administered on 02/27/18at 21: 19; Start 02/27/18 at 21:00 Gabapentin (Neurontin) 300 mg QHS PO Last administered on 02/27/18at 21:19; Start 02/27/18 at 21:00 Sertraline HCl (Zoloft) 50 mg QHS PO Last administered on 02/27/18at 21:19; Start 02/27/18 at 21:00 Acetaminophen/ Hydrocodone Bitart (Lortab 10/325) 1 tab PRN Q6HRS PRN PO PAIN; Start 02/27/18 at 09:30; Stop 02/27/18 at 09:30; Status DC Vancomycin HCl 2 gm/Sodium Chloride 500 ml @ 250 mls/hr 1X ONCE IV ; Start at 09:15; Stop 02/27/18 at 11:14; Status UNV Vancomycin HCl (Vanco Per Pharmacy) 1 each PRN DAILY PRN MC SEE COMMENTS Last administered on 02/27/18at 16:00; Start 02/27/18 at 09:15 Acetaminophen (Tylenol) 650 mg PRN Q6HRS PRN PO FEVER; Start 02/27/18 at 09:15 Ondansetron HCl (Zofran) 4 mg PRN Q6HRS PRN IV NAUSEA/VOMITING; Start 02/27/18 at 09:15 Docusate Sodium (Colace) 100 mg PRN DAILY PRN PO CONSTIPATION; Start 02/27/18 at 09:15 Heparin Sodium (Porcine) (Heparin Sodium) 5,000 unit Q8HRS SQ ; Start 02/27/18 at 14:00 Acetaminophen/ Hydrocodone Bitart (Lortab 10/325) 1 tab PRN Q6HRS PRN PO PAIN Last administered on 02/28/18at 06:15; Start 02/27/18 at 09:30 Vancomycin HCl 1.75 gm/Sodium Chloride 500 ml @ 250 mls/hr 1X ONCE IV Last administered on 02/27/18at 18:40; Start 02/27/18 at 12:00; Stop 02/27/18 at 13:59 ; Status DC Piperacillin Sod/ Tazobactam Sod 2.25 gm/Sodium Chloride 50 ml @ 100 mls/hr Q8HRS IV Last administered on 02/28/18at 06:15; Start 02/27/18 at 15:00 Lactobacillus Rhamnosus (Culturelle) 1 cap BID PO Last administered on at 09:04; Start 02/28/18 at 09:00 Active Scripts Active FENTANYL 25mcg/hr (Fentanyl) 1 Each Patch.td72 1 Patch TD Q3DAYS 30 Days Atorvastatin Calcium 10 Mg Tablet 10 Mg PO QHS 30 Days Carvedilol (Carvedilol) 3.125 Mg Tablet 3.125 Mg PO BIDWMEALS Reported [place] 10-325 Tablet (Acetaminophen/Hydrocodone Bitart) 1 Each Tablet 1 Tab PO Q4 -6HRS Polyethylene Glycol 3350 17 Gm Powd.pack 17 Gm PO PRN DAILY PRN Sertraline Hcl 50 Mg Tablet 50 Mg PO QHS Sensipar (Cinacalcet Hcl) 30 Mg Tablet 1 Tab PO QHS Alayna-Oneil Rx Tablet (Vit B Cmplx 3/Fa/Vit C/Biotin) 1 Each Tablet 1 Each PO DAILY Cranberry Plus Vitamin C Sftgl (Cranberry Conc/Ascorbic Acid) 1 Each Capsule 1 Each PO QHS Alprazolam 0.25 Mg Tablet 1 Tab PO DAILY PRN Plavix (Clopidogrel Bisulfate) 75 Mg Tablet 75 Mg PO QHS Calcium Acetate 667 Mg Tablet 2 Tab PO TIDWMEALS Tylenol Extra Strength (Acetaminophen) 500 Mg Tablet 500 Mg PO PRN Q12HRS PRN Gabapentin (Gabapentin) 300 Mg Capsule 300 Mg PO QHS Benadryl Allergy (Diphenhydramine Hcl) 25 Mg Tablet 25 Mg PO PRN not given in the hospital Aspir 81 (Aspirin) 81 Mg Tablet.dr 81 Mg PO QHS Vitals/I & O Vital Sign - Last 24 Hours 02/27/18 02/27/18 02/27/18 02/27/18 16:00 19:00 19:34 21:19 Temp 97.6 98.0 97.6 98.0 Pulse 64 68 Resp 16 18 B/P (MAP) 117/45 (69) 134/54 (80) Pulse Ox 92 93 92 O2 Delivery Nasal Cannula Room Air Room Air Room Air 02/27/18 02/27/18 02/28/18 02/28/18 22:22 23:00 03:00 06:15 Temp 97.8 98.2 97.8 98.2 Pulse 67 89 Resp 16 18 B/P (MAP) 96/54 (68) 104/52 (69) Pulse Ox 92 93 95 95 O2 Delivery Room Air Room Air Room Air 02/28/18 02/28/18 02/28/18 02/28/18 07:00 07:15 07:49 09:04 Temp 98.6 98.6 Pulse 69 Resp 18 B/P (MAP) 106/41 (62) Pulse Ox 94 O2 Delivery Room Air Room Air Room Air Room Air 02/28/18 10:04 O2 Delivery Room Air Intake and Output 02/27/18 02/27/18 02/28/18 15:00 23:00 07:00 Intake Total 240 ml 420 ml 120 ml Output Total 1 ml Balance 240 ml 419 ml 120 ml ROLAND ELLIOTT MD Feb 28, 2018 10:58
--- NOTE | 2018-02-28 11:02 | PDOC ---
SURGICAL PROGRESS NOTE Subjective Patient was seen and examined at the bedside this morning and is doing well. There were no acute events overnight. Vital Signs Vital Signs Date Time Temp Pulse Resp B/P (MAP) Pulse Ox O2 Delivery O2 Flow Rate FiO2 02/28/18 10:04 Room Air 02/28/18 07:00 98.6 69 18 106/41 (62) 94 98.6 I&O Intake and Output 02/28/18 07:00 Intake Total 780 ml Output Total 1 ml Balance 779 ml Intake Oral 780 ml Output Urine Total 1 ml # Bowel Movements 1 General: Alert, Oriented X3, Cooperative, No acute distress Abdomen: Soft, No tenderness Extremities: Other (right lower extremity wound is unchanged from yesterday's exam with mild surrounding reactive erythema) Labs Laboratory Tests Test 02/26/18 11:34 02/26/18 15:00 02/26/18 20:41 02/27/18 06:50 Glucose (Fingerstick) 66 mg/dL (70-99) 125 mg/dL (70-99) White Blood Count 7.8 x10^3/uL (4.0-11.0) 8.1 x10^3/uL (4.0-11.0) Red Blood Count 2.29 x10^6/uL (3.50-5.40) 2.40 x10^6/uL (3.50-5.40) Hemoglobin 7.1 g/dL (12.0-15.5) 7.4 g/dL (12.0-15.5) Hematocrit 21.2 % (36.0-47.0) 22.7 % (36.0-47.0) Mean Corpuscular Volume 93 fL (79-100) 95 fL (79-100) Mean Corpuscular Hemoglobin 31 pg (25-35) 31 pg (25-35) Mean Corpuscular Hemoglobin Concent 34 g/dL (31-37) 32 g/dL (31-37) Red Cell Distribution Width 19.0 % (11.5-14.5) 20.9 % (11.5-14.5) Platelet Count 238 x10^3/uL (140-400) 194 x10^3/uL (140-400) Neutrophils (%) (Auto) 83 % (31-73) 74 % (31-73) Lymphocytes (%) (Auto) 10 % (24-48) 16 % (24-48) Monocytes (%) (Auto) 6 % (0-9) 9 % (0-9) Eosinophils (%) (Auto) 0 % (0-3) 1 % (0-3) Basophils (%) (Auto) 1 % (0-3) 1 % (0-3) Neutrophils # (Auto) 6.4 x10^3uL (1.8-7.7) 6.0 x10^3uL (1.8-7.7) Lymphocytes # (Auto) 0.7 x10^3/uL (1.0-4.8) 1.3 x10^3/uL (1.0-4.8) Monocytes # (Auto) 0.5 x10^3/uL (0.0-1.1) 0.7 x10^3/uL (0.0-1.1) Eosinophils # (Auto) 0.0 x10^3/uL (0.0-0.7) 0.1 x10^3/uL (0.0-0.7) Basophils # (Auto) 0.1 x10^3/uL (0.0-0.2) 0.1 x10^3/uL (0.0-0.2) Sodium Level 136 mmol/L (136-145) 138 mmol/L (136-145) Potassium Level 5.9 mmol/L (3.5-5.1) 4.7 mmol/L (3.5-5.1) Chloride Level 100 mmol/L (98-107) 101 mmol/L (98-107) Carbon Dioxide Level 23 mmol/L (21-32) 26 mmol/L (21-32) Anion Gap 13 (6-14) 11 (6-14) Blood Urea Nitrogen 59 mg/dL (7-20) 40 mg/dL (7-20) Creatinine 8.5 mg/dL (0.6-1.0) 6.7 mg/dL (0.6-1.0) Estimated GFR (Cockcroft-Gault) 4.7 6.2 Glucose Level 99 mg/dL (70-99) 98 mg/dL (70-99) Calcium Level 8.6 mg/dL (8.5-10.1) 8.1 mg/dL (8.5-10.1) Phosphorus Level 6.5 mg/dL (2.6-4.7) Magnesium Level 1.9 mg/dL (1.8-2.4) Creatine Kinase 42 U/L (26-192) Thyroid Stimulating Hormone (TSH) 8.917 uIU/mL (0.358-3.74) Test 02/27/18 07:20 02/27/18 11:42 02/27/18 16:38 02/28/18 09:23 Glucose (Fingerstick) 87 mg/dL (70-99) 106 mg/dL (70-99) 74 mg/dL (70-99) White Blood Count 8.4 x10^3/uL (4.0-11.0) Red Blood Count 2.40 x10^6/uL (3.50-5.40) Hemoglobin 7.5 g/dL (12.0-15.5) Hematocrit 22.5 % (36.0-47.0) Mean Corpuscular Volume 94 fL (79-100) Mean Corpuscular Hemoglobin 31 pg (25-35) Mean Corpuscular Hemoglobin Concent 33 g/dL (31-37) Red Cell Distribution Width 22.1 % (11.5-14.5) Platelet Count 205 x10^3/uL (140-400) Neutrophils (%) (Auto) 77 % (31-73) Lymphocytes (%) (Auto) 13 % (24-48) Monocytes (%) (Auto) 9 % (0-9) Eosinophils (%) (Auto) 1 % (0-3) Basophils (%) (Auto) 1 % (0-3) Neutrophils # (Auto) 6.4 x10^3uL (1.8-7.7) Lymphocytes # (Auto) 1.1 x10^3/uL (1.0-4.8) Monocytes # (Auto) 0.7 x10^3/uL (0.0-1.1) Eosinophils # (Auto) 0.1 x10^3/uL (0.0-0.7) Basophils # (Auto) 0.1 x10^3/uL (0.0-0.2) Sodium Level 141 mmol/L (136-145) Potassium Level 4.2 mmol/L (3.5-5.1) Chloride Level 102 mmol/L (98-107) Carbon Dioxide Level 30 mmol/L (21-32) Anion Gap 9 (6-14) Blood Urea Nitrogen 19 mg/dL (7-20) Creatinine 4.2 mg/dL (0.6-1.0) Estimated GFR (Cockcroft-Gault) 10.6 Glucose Level 122 mg/dL (70-99) Calcium Level 7.6 mg/dL (8.5-10.1) Laboratory Tests Test 02/27/18 11:42 02/27/18 16:38 02/28/18 09:23 Glucose (Fingerstick) 106 mg/dL (70-99) 74 mg/dL (70-99) White Blood Count 8.4 x10^3/uL (4.0-11.0) Red Blood Count 2.40 x10^6/uL (3.50-5.40) Hemoglobin 7.5 g/dL (12.0-15.5) Hematocrit 22.5 % (36.0-47.0) Mean Corpuscular Volume 94 fL (79-100) Mean Corpuscular Hemoglobin 31 pg (25-35) Mean Corpuscular Hemoglobin Concent 33 g/dL (31-37) Red Cell Distribution Width 22.1 % (11.5-14.5) Platelet Count 205 x10^3/uL (140-400) Neutrophils (%) (Auto) 77 % (31-73) Lymphocytes (%) (Auto) 13 % (24-48) Monocytes (%) (Auto) 9 % (0-9) Eosinophils (%) (Auto) 1 % (0-3) Basophils (%) (Auto) 1 % (0-3) Neutrophils # (Auto) 6.4 x10^3uL (1.8-7.7) Lymphocytes # (Auto) 1.1 x10^3/uL (1.0-4.8) Monocytes # (Auto) 0.7 x10^3/uL (0.0-1.1) Eosinophils # (Auto) 0.1 x10^3/uL (0.0-0.7) Basophils # (Auto) 0.1 x10^3/uL (0.0-0.2) Sodium Level 141 mmol/L (136-145) Potassium Level 4.2 mmol/L (3.5-5.1) Chloride Level 102 mmol/L (98-107) Carbon Dioxide Level 30 mmol/L (21-32) Anion Gap 9 (6-14) Blood Urea Nitrogen 19 mg/dL (7-20) Creatinine 4.2 mg/dL (0.6-1.0) Estimated GFR (Cockcroft-Gault) 10.6 Glucose Level 122 mg/dL (70-99) Calcium Level 7.6 mg/dL (8.5-10.1) Problem List Problems Medical Problems: (1) Anemia Status: Acute (2) Generalized weakness Status: Acute (3) Hyperkalemia Status: Acute Assessment/Plan Atherosclerosis with ulceration of the right lower extremity--the patient would like to proceed with medical therapy and attempted limb salvage. I have ordered an angiogram of the right lower extremity tomorrow. We'll make the patient nothing by mouth after midnight tonight for procedure. We will evaluate if the patient has any reconstruction options or if percutaneous intervention is successful. All questions were answered to her satisfaction regarding the plan. The patient understands that if she does not participate in her health care and does not quit smoking, she is at markedly increased risk of limb loss. GILMA LONG DO Feb 28, 2018 11:02
[2018-02-28 11:25] LABS: FREE T4 0.54 ng/dL (0.76-1.46)
--- NOTE | 2018-02-28 13:03 | RAD ---
CT head without contrast PQRS statement: CT scans at this facility use dose reduction including either automated exposure control, iterative reconstructions, and /or weight based radiation dosing via mA and kV modification when appropriate to reduce radiation dose to as low as reasonably achievable. HISTORY: Weakness. TECHNIQUE: [address] imaging skull base to vertex. COMPARISON: CT head May 24, 2017. FINDINGS: 1 cm cyst or chronic lacunar infarct of the inferior right basal ganglia, stable. There is a chronic right posterior temporal lobe and inferior parietal lobe infarct with mild encephalomalacia and white matter hypoattenuation similar to the prior exam. Mild generalized brain atrophy. No new infarct since the prior study evident. No intracranial hemorrhage, mass or hydrocephalus. Orbits, mastoids, paranasal sinuses and bones are unremarkable. IMPRESSION: No acute intracranial CT abnormality. Stable exam as described above Electronically signed by: Daniel Castro MD (02/28/2018 12:59 PM) [facility]
--- NOTE | 2018-02-28 13:11 | PDOC ---
PROGRESS NOTES Subjective Subjective Patient feeling better after hemodialysis. Denied any chest pain. Objective Objective Vital Signs Date Time Temp Pulse Resp B/P (MAP) Pulse Ox O2 Delivery O2 Flow Rate FiO2 02/28/18 10:04 Room Air 02/28/18 07:00 98.6 69 18 106/41 (62) 94 98.6 Intake and Output 02/28/18 07:00 Intake Total 780 ml Output Total 1 ml Balance 779 ml Intake Oral 780 ml Output Urine Total 1 ml # Bowel Movements 1 Physical Exam Abdomen: Soft, No tenderness Heart: Regular rate Extremities: Other (right lower extremity wound is unchanged from yesterday's exam with mild surrounding reactive erythema) General: Alert, Oriented X3, Cooperative, No acute distress HEENT: Atraumatic, PERRLA Lungs: Clear to auscultation MUSCULOSKELETAL: Osteoarthritic changes both hands Neuro: Strength at 5/5 X4 ext, Normal tone, Sensation intact, Cranial nerves 3- 12 NL Psych/Mental Status: Mood NL Assessment Assessment 1. End-stage renal disease with missed dialysis presenting with hyperkalemia. Continue hemodialysis per nephrology team. 2. Mild acute on chronic diastolic heart failure probably from missed HD. Recent 2-D echo showed LVEF 50-55%. Continue fluid removal with dialysis. 3. Non-STEMI most of the type 2/demand ischemia in a patient with known history of Coronary artery disease. Recent cardiac catheterization 02/14/18 showed patent stent in LAD, 60% in-stent restenosis in the RCA and diffuse disease involving a small-caliber LCx, managed medically. 4. Ventricular tachycardia s/p ablation therapy and AICD implantation. Recent device check showed normal function. 5. PAD with nonhealing wound right ankle being followed by vascular surgery. 6. Hypertension: Controlled 7. Hyperlipidemia: Statins Plan Plan of Care Problems Medical Problems: (1) Anemia Status: Acute (2) Generalized weakness Status: Acute (3) Hyperkalemia Status: Acute Comment Review of Relevant I have reviewed the following items ashley (where applicable) has been applied. Labs Laboratory Tests Test 02/27/18 16:38 02/28/18 09:23 Glucose (Fingerstick) 74 mg/dL (70-99) White Blood Count 8.4 x10^3/uL (4.0-11.0) Red Blood Count 2.40 x10^6/uL (3.50-5.40) Hemoglobin 7.5 g/dL (12.0-15.5) Hematocrit 22.5 % (36.0-47.0) Mean Corpuscular Volume 94 fL (79-100) Mean Corpuscular Hemoglobin 31 pg (25-35) Mean Corpuscular Hemoglobin Concent 33 g/dL (31-37) Red Cell Distribution Width 22.1 % (11.5-14.5) Platelet Count 205 x10^3/uL (140-400) Neutrophils (%) (Auto) 77 % (31-73) Lymphocytes (%) (Auto) 13 % (24-48) Monocytes (%) (Auto) 9 % (0-9) Eosinophils (%) (Auto) 1 % (0-3) Basophils (%) (Auto) 1 % (0-3) Neutrophils # (Auto) 6.4 x10^3uL (1.8-7.7) Lymphocytes # (Auto) 1.1 x10^3/uL (1.0-4.8) Monocytes # (Auto) 0.7 x10^3/uL (0.0-1.1) Eosinophils # (Auto) 0.1 x10^3/uL (0.0-0.7) Basophils # (Auto) 0.1 x10^3/uL (0.0-0.2) Sodium Level 141 mmol/L (136-145) Potassium Level 4.2 mmol/L (3.5-5.1) Chloride Level 102 mmol/L (98-107) Carbon Dioxide Level 30 mmol/L (21-32) Anion Gap 9 (6-14) Blood Urea Nitrogen 19 mg/dL (7-20) Creatinine 4.2 mg/dL (0.6-1.0) Estimated GFR (Cockcroft-Gault) 10.6 Glucose Level 122 mg/dL (70-99) Calcium Level 7.6 mg/dL (8.5-10.1) Free Thyroxine 0.54 ng/dL (0.76-1.46) Free Triiodothyronine (T3) pg/mL 0.99 pg/mL (2.18-3.98) Microbiology 02/26/18 Anaerobic/Aerobic Culture, Resulted Pending 02/26/18 Anaerobic Culture Result 1 (LUZ), Resulted Pending 02/26/18 Aerobic Culture, Resulted Pending 02/26/18 Aerobic Culture Result 1 (LUZ), Resulted Pending 02/26/18 Gram Stain - Final, Resulted 02/26/18 Gram Stain Result 1 (LUZ) - Final, Resulted 02/26/18 Gram Stain Result 2 (LUZ) - Final, Resulted Medications Current Medications Atorvastatin Calcium (Lipitor) 10 mg QHS PO Last administered on 02/27/18at 21: 19; Start 02/27/18 at 21:00 Gabapentin (Neurontin) 300 mg QHS PO Last administered on 02/27/18at 21:19; Start 02/27/18 at 21:00 Heparin Sodium (Porcine) (Heparin Sodium) 5,000 unit Q8HRS SQ ; Start 02/27/18 at 14:00 Lactobacillus Rhamnosus (Culturelle) 1 cap BID PO Last administered on at 09:04; Start 02/28/18 at 09:00 Piperacillin Sod/ Tazobactam Sod 2.25 gm/Sodium Chloride 50 ml @ 100 mls/hr Q8HRS IV Last administered on 02/28/18at 06:15; Start 02/27/18 at 15:00 Sertraline HCl (Zoloft) 50 mg QHS PO Last administered on 02/27/18at 21:19; Start 02/27/18 at 21:00 Vitals/I & O Vital Sign - Last 24 Hours 02/27/18 02/27/18 02/27/18 02/27/18 16:00 19:00 19:34 21:19 Temp 97.6 98.0 97.6 98.0 Pulse 64 68 Resp 16 18 B/P (MAP) 117/45 (69) 134/54 (80) Pulse Ox 92 93 92 O2 Delivery Nasal Cannula Room Air Room Air Room Air 02/27/18 02/27/18 02/28/18 02/28/18 22:22 23:00 03:00 06:15 Temp 97.8 98.2 97.8 98.2 Pulse 67 89 Resp 16 18 B/P (MAP) 96/54 (68) 104/52 (69) Pulse Ox 92 93 95 95 O2 Delivery Room Air Room Air Room Air 02/28/18 02/28/18 02/28/18 02/28/18 07:00 07:15 07:49 09:04 Temp 98.6 98.6 Pulse 69 Resp 18 B/P (MAP) 106/41 (62) Pulse Ox 94 O2 Delivery Room Air Room Air Room Air Room Air 02/28/18 10:04 O2 Delivery Room Air Intake and Output 02/27/18 02/27/18 02/28/18 15:00 23:00 07:00 Intake Total 240 ml 420 ml 120 ml Output Total 1 ml Balance 240 ml 419 ml 120 ml CARRIE STINSON MD Feb 28, 2018 13:11
--- NOTE | 2018-02-28 14:23 | PDOC ---
PROGRESS NOTES Assessment Assessment Generalized weakness, multi-factorial. Fatigue. Not compliant with dialysis. Hyperkalemia. Renal failure on dialysis. DM HTN. HLD. CAD. Right LE wound. Obesity. RECOMMENDATIONS/PLAN: Treat medical diseases. Treat hypothyroidism per medical team. Wound care. FU with PCP. HISTORY OF THE PRESENT ILLNESS: 68-y-old female with above medical diseases and non compliant for dialysis was hospitalized for further evaluation and treatment. Neurology was requested for consultation for generalized weakness, but no focalized sensory or motor deficits. Past Medical History Anemia, CAD, Diabetes-Type II, Hypertension, Pneumonia, Renal Failure on dialysis. Cardiovascular: CAD, HTN, Hyperlipidemia, Valve insufficiency. Pulmonary: COPD CENTRAL NERVOUS SYSTEM: Other Heme/Onc: Anemia NOS Psych: Depression Musculoskeletal: Other Rheumatologic: No pertinent hx Infectious disease: Other Renal/: Chronic renal insuff, Chronic renal failure, Other Endocrine: Diabetes, Hyperparathyroidism Dermatology: Eczema Past Surgical History Cholecystectomy, Hysterectomy, Pacemaker, Tonsillectomy, cardiac cath 10/2016-w/ stent placement, back surgery,rotator cuff, arthroscopy, Cholecystectomy, Tonsillectomy, Hysterectomy. Family History Diabetes, Hypertension ALLERGY: Coded Allergies: ciprofloxacin (Verified Allergy, Intermediate, Rash, 05/08/17) morphine (Verified Adverse Reaction, Severe, makes her skin crawl, 05/08/17 ) oxycodone (Verified Adverse Reaction, Severe, makes her skin crawl, ) adhesive (Verified Adverse Reaction, Intermediate, blisters, 05/08/17) " use paper tape" MEDICATIONS: Refer to MAR SOCIAL HISTORY: Denies drinking, and illicit drug use. She smokes 1 pack of cigarettes a day for many years. REVIEW OF SYSTEMS: Constitutional: No cachexia. Head: No traumatic brain or head injury. Skin: No edema, or rash. Ear: No infection. Eyes: No vision loss or color blindness. Nose: No bleeding or purulent discharges. Hearing: No hearing decrease. Neck: No injury. Breast: No history of cancer, masses,or discharges. Cardiac: CAD, HTN, HLD. Pulmonary: No COPD. GI: No GI ulcer, GI bleeding. Urinary/genital: Renal failure on dialysis. Endocrinologic: Diabetes Mellitus. Skeletomuscular: Generalized weakness. Neurological: see HP. Psychiatric: Denies drug use/abuse. Otherwise, not -hkbvg review of systems. PHYSICAL EXAMINATION: General appearance is in chronic distress. HEENT: Normocephalic and nontraumatic. Eyes, nose, ears, and throat are unremarkable. Neck is supple. No lymphadenopathy. No crepitus. Cardiovascular: S1, S2, regular rate and rhythm. Pulmonary: Clear to auscultation bilaterally. Abdomen: Bowel sounds are positive. Extremities: Right LE wound. No restriction of range of motion NEUROLOGICAL EXAMINATION: Alert Oriented to time, place and person. PERRL. EOMI. CN: no focal findings. Muscle tone: within normal. Muscle strength: 4+ DTR: 1-2 Plantar reflex: Flexor response bilaterally Gait: not examined in bed. Sensory exam: no abnormal findings. No cerebellar signs elicited. Objective Objective Vital Signs Date Time Temp Pulse Resp B/P (MAP) Pulse Ox O2 Delivery O2 Flow Rate FiO2 02/28/18 10:04 Room Air 02/28/18 07:00 98.6 69 18 106/41 (62) 94 98.6 Intake and Output 02/28/18 07:00 Intake Total 780 ml Output Total 1 ml Balance 779 ml Intake Oral 780 ml Output Urine Total 1 ml # Bowel Movements 1 Vitals Signs Vitals VS - Last 72 Hours, by Label Date Time Temp Pulse Resp B/P (MAP) Pulse Ox O2 Delivery O2 Flow Rate FiO2 02/28/18 10:04 Room Air 02/28/18 09:04 Room Air 02/28/18 07:49 Room Air 02/28/18 07:15 Room Air 02/28/18 07:00 98.6 69 18 106/41 (62) 94 Room Air 98.6 02/28/18 06:15 95 Room Air 02/28/18 03:00 98.2 89 18 104/52 (69) 95 Room Air 98.2 02/27/18 23:00 97.8 67 16 96/54 (68) 93 Room Air 97.8 02/27/18 22:22 92 02/27/18 21:19 92 Room Air 02/27/18 19:34 Room Air 02/27/18 19:00 98.0 68 18 134/54 (80) 93 Room Air 98.0 02/27/18 16:00 97.6 64 16 117/45 (69) 92 Nasal Cannula 97.6 02/27/18 09:41 Room Air 02/27/18 09:07 Room Air 12/8/18 08:00 97.9 60 16 98/38 (58) 94 Nasal Cannula 97.9 02/27/18 08:00 Room Air Laboratory Laboratory Laboratory Tests Test 02/27/18 16:38 02/28/18 09:23 Glucose (Fingerstick) 74 mg/dL (70-99) White Blood Count 8.4 x10^3/uL (4.0-11.0) Red Blood Count 2.40 x10^6/uL (3.50-5.40) Hemoglobin 7.5 g/dL (12.0-15.5) Hematocrit 22.5 % (36.0-47.0) Mean Corpuscular Volume 94 fL (79-100) Mean Corpuscular Hemoglobin 31 pg (25-35) Mean Corpuscular Hemoglobin Concent 33 g/dL (31-37) Red Cell Distribution Width 22.1 % (11.5-14.5) Platelet Count 205 x10^3/uL (140-400) Neutrophils (%) (Auto) 77 % (31-73) Lymphocytes (%) (Auto) 13 % (24-48) Monocytes (%) (Auto) 9 % (0-9) Eosinophils (%) (Auto) 1 % (0-3) Basophils (%) (Auto) 1 % (0-3) Neutrophils # (Auto) 6.4 x10^3uL (1.8-7.7) Lymphocytes # (Auto) 1.1 x10^3/uL (1.0-4.8) Monocytes # (Auto) 0.7 x10^3/uL (0.0-1.1) Eosinophils # (Auto) 0.1 x10^3/uL (0.0-0.7) Basophils # (Auto) 0.1 x10^3/uL (0.0-0.2) Sodium Level 141 mmol/L (136-145) Potassium Level 4.2 mmol/L (3.5-5.1) Chloride Level 102 mmol/L (98-107) Carbon Dioxide Level 30 mmol/L (21-32) Anion Gap 9 (6-14) Blood Urea Nitrogen 19 mg/dL (7-20) Creatinine 4.2 mg/dL (0.6-1.0) Estimated GFR (Cockcroft-Gault) 10.6 Glucose Level 122 mg/dL (70-99) Calcium Level 7.6 mg/dL (8.5-10.1) Free Thyroxine 0.54 ng/dL (0.76-1.46) Free Triiodothyronine (T3) pg/mL 0.99 pg/mL (2.18-3.98) Microbiology 02/26/18 Anaerobic/Aerobic Culture, Resulted Pending 02/26/18 Anaerobic Culture Result 1 (LUZ), Resulted Pending 02/26/18 Aerobic Culture, Resulted Pending 02/26/18 Aerobic Culture Result 1 (LUZ), Resulted Pending 02/26/18 Gram Stain - Final, Resulted 02/26/18 Gram Stain Result 1 (LUZ) - Final, Resulted 02/26/18 Gram Stain Result 2 (LUZ) - Final, Resulted Medication Medications Current Medications Atorvastatin Calcium (Lipitor) 10 mg QHS PO Last administered on 02/27/18at 21: 19; Start 02/27/18 at 21:00 Gabapentin (Neurontin) 300 mg QHS PO Last administered on 02/27/18at 21:19; Start 02/27/18 at 21:00 Lactobacillus Rhamnosus (Culturelle) 1 cap BID PO Last administered on 09:04; Start 02/28/18 at 09:00 Piperacillin Sod/ Tazobactam Sod 2.25 gm/Sodium Chloride 50 ml @ 100 mls/hr Q8HRS IV Last administered on 02/28/18at 13:56; Start 02/27/18 at 15:00 Sertraline HCl (Zoloft) 50 mg QHS PO Last administered on 02/27/18at 21:19; Start 02/27/18 at 21:00 Comment Review of Relevant I have reviewed the following items ashley (where applicable) has been applied. LORENE PERDOMO MD Feb 28, 2018 14:23
[2018-02-28 15:00] VITALS: BP 108/48
[2018-02-28] MEDS: VANCOMYCIN PER PHARMACY MC PRN (15:13)
[2018-02-28] MEDS: LEVOTHYROXINE 88 MCG TABLET PO SCH (15:31)
[2018-02-28] MEDS: ONDANSETRON PF 4 MG/2 ML VIAL. IV PRN (18:04)
[2018-02-28 19:45] VITALS: BP 84/33
[2018-02-28 20:34] VITALS: BP 104/49
[2018-02-28] MEDS: ATORVASTATIN CALCIUM 10 MG TABLET. PO SCH (22:54)
[2018-02-28] MEDS: GABAPENTIN 300 MG CAPSULE. PO SCH (22:54)
[2018-02-28] MEDS: CLOPIDOGREL BISULFATE 75 MG TABLET PO SCH (22:54)
[2018-02-28] MEDS: ASPIRIN ENTERIC COATED 81 MG TABLET.DR. PO SCH (22:54)
[2018-02-28] MEDS: SERTRALINE 50 MG TABLET. PO SCH (22:54)
[2018-02-28] MEDS: CINACALCET HCL 30 MG TABLET PO SCH (22:54)
[2018-02-28 23:32] VITALS: BP 111/57
[2018-03-01] MEDS: HYDROcodone/APAP 10/325 1 TAB TABLET PO PRN ×4 (00:12→21:59)
[2018-03-01 03:31] VITALS: BP 103/39
[2018-03-01] MEDS ORDERED: VANCOMYCIN RANDOM LEVEL. MC ONE (05:00)
[2018-03-01] MEDS: HEPARIN for SUB-Q USE 5,000 UNIT/ML VIAL. SQ SCH ×3 (05:09→22:00)
[2018-03-01] MEDS: LEVOTHYROXINE 88 MCG TABLET PO SCH (05:09)
[2018-03-01] MEDS: PIPERACILLIN/TAZOBACTAM 2.25 GM in IV NORMAL SALINE 50ML 50 ML IV SCH ×3 (05:15→15:01)
[2018-03-01] MEDS: ONDANSETRON PF 4 MG/2 ML VIAL. IV PRN ×2 (05:15→11:57)
[2018-03-01] MEDS: traMADol 50 MG TABLET PO PRN ×3 (05:16→17:50)
[2018-03-01 07:00] VITALS: BP 114/50
--- NOTE | 2018-03-01 07:41 | PDOC ---
PROGRESS NOTES Chief Complaint Chief Complaint ESRD on HD TuThSa rt leg unhealing wound s/p wound vac Hyperkalemia rt hand weakness, need to rule out stroke Generalized weakness Anemia chronic, with ESRD NONCOMPLIANCE, REFUSES HD SOMETIMES Tobacco abuse disorder fluid overload severe protein-caloric malnutrition DIABETES HTN PPMICD PAD Atherosclerosis with ulceration of the right lower extremity--the patient would like to proceed with medical therapy and attempted limb salvage. pain medication overuse, leading to excess sedation and memory loss plan: vascular , good candidate for sx months ago.angiogram, defer to vascular id consult added vanco for now, wound c+ gram + cocci cont some home meds, bp lower side, on coreg low dose on asa, lipitor., will get MRI To rule out stroke, neuro consult resume pain meds, add lortab 10mg q6h prn, cont tramadol. hold fentanyl patch fu with renal, need HD, agrees wit dialysis plan for now PTOT dvt ppx History of Present Illness History of Present Illness ROS: no fever, chills, sob or chest pain c/o rt hand weakness, cannot hold glass, strength 4/5, left side 5/5 RLE Ulcer looks bad, with erythema around, and yellow ,foul smell discharge at ulcer, obviously infected. agree HD for now takes lortab 10mg q4h at home , c/o rt leg pain - agrees she takes too much lortab, wants to taper and try other means of pain relief She wants to eat an nepalese muffing, oatmeal and coffee this morning and would like to talk to vascular surgery. Not eating well otherwise, refused supplements in the past. T3 and T4 returned low, stated on 88mcg synthroid Vitals Vitals Vital Signs Date Time Temp Pulse Resp B/P (MAP) Pulse Ox O2 Delivery O2 Flow Rate FiO2 03/01/18 07:25 Room Air 03/01/18 06:18 97 03/01/18 03:31 97.4 69 19 103/39 (60) 97.4 Physical Exam Physical Exam GENERAL: Sitting in the chair, tired appearance, NAD HEENT: Pupils equally round. Normal conjunctivae. Oral cavity pink and moist. NECK: Supple. LUNGS: Clear to auscultation. HEART: S1 and S2. AICD. ABDOMEN: Soft and nontender. Bowel sounds present. EXTREMITIES: Unremarkable except right lower extremity 1+ edema. Large deep ulcer, medial right lower extremity with foul odor and necrotic tissue. Also has a smaller necrotic ulcer lateral ankle as well. DP pulse difficult to palpate. SKIN: Warm without rash. LUE-AV fistula NEUROLOGICAL: Alert and oriented x 3. General: Alert, Oriented X3, Cooperative, mild distress Heart: Regular rate, Normal S1, Normal S2 Lungs: Clear, Other Abdomen: Normal bowel sounds, Soft, No tenderness Extremities: No cyanosis, Other (right ankle wound bandaged deep soft tissue infection) Labs LABS Laboratory Tests Test 02/28/18 09:23 White Blood Count 8.4 x10^3/uL (4.0-11.0) Red Blood Count 2.40 x10^6/uL (3.50-5.40) Hemoglobin 7.5 g/dL (12.0-15.5) Hematocrit 22.5 % (36.0-47.0) Mean Corpuscular Volume 94 fL (79-100) Mean Corpuscular Hemoglobin 31 pg (25-35) Mean Corpuscular Hemoglobin Concent 33 g/dL (31-37) Red Cell Distribution Width 22.1 % (11.5-14.5) Platelet Count 205 x10^3/uL (140-400) Neutrophils (%) (Auto) 77 % (31-73) Lymphocytes (%) (Auto) 13 % (24-48) Monocytes (%) (Auto) 9 % (0-9) Eosinophils (%) (Auto) 1 % (0-3) Basophils (%) (Auto) 1 % (0-3) Neutrophils # (Auto) 6.4 x10^3uL (1.8-7.7) Lymphocytes # (Auto) 1.1 x10^3/uL (1.0-4.8) Monocytes # (Auto) 0.7 x10^3/uL (0.0-1.1) Eosinophils # (Auto) 0.1 x10^3/uL (0.0-0.7) Basophils # (Auto) 0.1 x10^3/uL (0.0-0.2) Sodium Level 141 mmol/L (136-145) Potassium Level 4.2 mmol/L (3.5-5.1) Chloride Level 102 mmol/L (98-107) Carbon Dioxide Level 30 mmol/L (21-32) Anion Gap 9 (6-14) Blood Urea Nitrogen 19 mg/dL (7-20) Creatinine 4.2 mg/dL (0.6-1.0) Estimated GFR (Cockcroft-Gault) 10.6 Glucose Level 122 mg/dL (70-99) Calcium Level 7.6 mg/dL (8.5-10.1) Free Thyroxine 0.54 ng/dL (0.76-1.46) Free Triiodothyronine (T3) pg/mL 0.99 pg/mL (2.18-3.98) Assessment and Plan Assessmemt and Plan Problems Medical Problems: (1) Anemia Status: Acute (2) Generalized weakness Status: Acute (3) Hyperkalemia Status: Acute Comment Review of Relevant I have reviewed the following items ashley (where applicable) has been applied. Labs Laboratory Tests Test 02/27/18 11:42 02/27/18 16:38 02/28/18 09:23 Glucose (Fingerstick) 106 mg/dL (70-99) 74 mg/dL (70-99) White Blood Count 8.4 x10^3/uL (4.0-11.0) Red Blood Count 2.40 x10^6/uL (3.50-5.40) Hemoglobin 7.5 g/dL (12.0-15.5) Hematocrit 22.5 % (36.0-47.0) Mean Corpuscular Volume 94 fL (79-100) Mean Corpuscular Hemoglobin 31 pg (25-35) Mean Corpuscular Hemoglobin Concent 33 g/dL (31-37) Red Cell Distribution Width 22.1 % (11.5-14.5) Platelet Count 205 x10^3/uL (140-400) Neutrophils (%) (Auto) 77 % (31-73) Lymphocytes (%) (Auto) 13 % (24-48) Monocytes (%) (Auto) 9 % (0-9) Eosinophils (%) (Auto) 1 % (0-3) Basophils (%) (Auto) 1 % (0-3) Neutrophils # (Auto) 6.4 x10^3uL (1.8-7.7) Lymphocytes # (Auto) 1.1 x10^3/uL (1.0-4.8) Monocytes # (Auto) 0.7 x10^3/uL (0.0-1.1) Eosinophils # (Auto) 0.1 x10^3/uL (0.0-0.7) Basophils # (Auto) 0.1 x10^3/uL (0.0-0.2) Sodium Level 141 mmol/L (136-145) Potassium Level 4.2 mmol/L (3.5-5.1) Chloride Level 102 mmol/L (98-107) Carbon Dioxide Level 30 mmol/L (21-32) Anion Gap 9 (6-14) Blood Urea Nitrogen 19 mg/dL (7-20) Creatinine 4.2 mg/dL (0.6-1.0) Estimated GFR (Cockcroft-Gault) 10.6 Glucose Level 122 mg/dL (70-99) Calcium Level 7.6 mg/dL (8.5-10.1) Free Thyroxine 0.54 ng/dL (0.76-1.46) Free Triiodothyronine (T3) pg/mL 0.99 pg/mL (2.18-3.98) Laboratory Tests Test 02/28/18 09:23 White Blood Count 8.4 x10^3/uL (4.0-11.0) Red Blood Count 2.40 x10^6/uL (3.50-5.40) Hemoglobin 7.5 g/dL (12.0-15.5) Hematocrit 22.5 % (36.0-47.0) Mean Corpuscular Volume 94 fL (79-100) Mean Corpuscular Hemoglobin 31 pg (25-35) Mean Corpuscular Hemoglobin Concent 33 g/dL (31-37) Red Cell Distribution Width 22.1 % (11.5-14.5) Platelet Count 205 x10^3/uL (140-400) Neutrophils (%) (Auto) 77 % (31-73) Lymphocytes (%) (Auto) 13 % (24-48) Monocytes (%) (Auto) 9 % (0-9) Eosinophils (%) (Auto) 1 % (0-3) Basophils (%) (Auto) 1 % (0-3) Neutrophils # (Auto) 6.4 x10^3uL (1.8-7.7) Lymphocytes # (Auto) 1.1 x10^3/uL (1.0-4.8) Monocytes # (Auto) 0.7 x10^3/uL (0.0-1.1) Eosinophils # (Auto) 0.1 x10^3/uL (0.0-0.7) Basophils # (Auto) 0.1 x10^3/uL (0.0-0.2) Sodium Level 141 mmol/L (136-145) Potassium Level 4.2 mmol/L (3.5-5.1) Chloride Level 102 mmol/L (98-107) Carbon Dioxide Level 30 mmol/L (21-32) Anion Gap 9 (6-14) Blood Urea Nitrogen 19 mg/dL (7-20) Creatinine 4.2 mg/dL (0.6-1.0) Estimated GFR (Cockcroft-Gault) 10.6 Glucose Level 122 mg/dL (70-99) Calcium Level 7.6 mg/dL (8.5-10.1) Free Thyroxine 0.54 ng/dL (0.76-1.46) Free Triiodothyronine (T3) pg/mL 0.99 pg/mL (2.18-3.98) Microbiology 02/26/18 Anaerobic/Aerobic Culture, Resulted Pending 02/26/18 Anaerobic Culture Result 1 (LUZ), Resulted Pending 02/26/18 Aerobic Culture - Preliminary, Resulted 02/26/18 Aerobic Culture Result 1 (LUZ) - Preliminary, Resulted 02/26/18 Aerobic Culture Result 2 (LUZ) - Preliminary, Resulted 02/26/18 Aerobic Culture Result 3 (LUZ) - Preliminary, Resulted 02/26/18 Gram Stain - Final, Resulted 02/26/18 Gram Stain Result 1 (LUZ) - Final, Resulted 02/26/18 Gram Stain Result 2 (LUZ) - Final, Resulted Medications Current Medications Sodium Bicarbonate (Sodium Bicarb Adult 8.4% Syr) 50 meq 1X ONCE IV Last administered on 02/25/18at 19:16; Start 02/25/18 at 19:00; Stop 02/25/18 at 19:01 ; Status DC Calcium Gluconate (Calcium Gluconate) 1,000 mg 1X ONCE IVP Last administered on 02/25/18at 19:07; Start 02/25/18 at 19:00; Stop 02/25/18 at 19:01; Status DC Dextrose (Dextrose 50%-Water Syringe) 25 gm 1X ONCE IV Last administered on at 19:14; Start 02/25/18 at 19:00; Stop 02/25/18 at 19:01; Status DC Insulin Human Regular (HumuLIN R VIAL) 10 unit 1X ONCE IV Last administered on 02/25/18at 19:13; Start 02/25/18 at 19:00; Stop 02/25/18 at 19:01; Status DC Albuterol Sulfate (Ventolin Neb Soln) 10 mg 1X ONCE CONT NEB ; Start 02/25/18 at 19:00; Stop 02/25/18 at 19:01; Status DC Ondansetron HCl (Zofran) 4 mg PRN Q8HRS PRN IV NAUSEA/VOMITING; Start 02/25/18 at 21:00; Stop 02/26/18 at 20:59; Status DC Aspirin (Ecotrin) 81 mg QHS PO Last administered on 02/28/18at 22:54; Start 02/26/18 at 21:00 Carvedilol (Coreg) 3.125 mg BIDWMEALS PO Last administered on 02/26/18at 21:05; Start 02/26/18 at 08:00 Cinacalcet (Sensipar) 30 mg QHS PO Last administered on 02/28/18at 22:54; Start 02/26/18 at 21:00 Clopidogrel Bisulfate (Plavix) 75 mg QHS PO Last administered on 02/28/18at 22: 54; Start 02/26/18 at 21:00 Polyethylene Glycol (miraLAX PACKET) 17 gm PRN DAILY PRN PO CONSTIPATION 1ST CHOICE; Start 02/26/18 at 09:00 Vitamin B Complex/ Vitamin C (Alayna-Oneil) 1 tab DAILY PO Last administered on at 09:04; Start 02/26/18 at 09:00 Sodium Chloride 1,000 ml @ 1,000 mls/hr Q1H PRN IV hypotension; Start 02/26/18 at 13:42; Stop 02/26/18 at 19:41; Status DC Sodium Chloride 1,000 ml @ 400 mls/hr Q2H30M PRN IV PATENCY; Start 02/26/18 at 13:42; Stop 02/27/18 at 01:42; Status DC Info (PHARMACY MONITORING -- do not chart) 1 each PRN DAILY PRN MC SEE COMMENTS ; Start 02/26/18 at 13:45; Stop 02/27/18 at 15:54; Status DC Lidocaine HCl (Xylocaine-Mpf 2% Vial) 0.5 ml 1X STAT ID Last administered on 02/26/18at 14:58; Start 02/26/18 at 14:46; Stop 02/26/18 at 14:50; Status DC Tramadol HCl (Ultram) 50 mg PRN Q6HRS PRN PO PAIN Last administered on at 05:16; Start 02/26/18 at 20:00 Sodium Chloride 1,000 ml @ 1,000 mls/hr Q1H PRN IV hypotension; Start 02/27/18 at 08:41; Stop 02/27/18 at 14:40; Status DC Sodium Chloride 1,000 ml @ 400 mls/hr Q2H30M PRN IV PATENCY; Start 02/27/18 at 08:41; Stop 02/27/18 at 20:40; Status DC Info (PHARMACY MONITORING -- do not chart) 1 each PRN DAILY PRN MC SEE COMMENTS ; Start 02/27/18 at 08:45; Status UNV Info (PHARMACY MONITORING -- do not chart) 1 each PRN DAILY PRN MC SEE COMMENTS ; Start 02/27/18 at 08:45 Lidocaine HCl (Xylocaine-Mpf 2% Vial) 2 ml 1X ONCE INJ ; Start 02/27/18 at 09: 00; Stop 02/27/18 at 09:01; Status DC Lidocaine HCl (Lidocaine Pf 2% Vial) 5 ml 1X ONCE IJ Last administered on 02/27at 09:00; Start 02/27/18 at 09:00; Stop 02/27/18 at 09:01; Status DC Alprazolam (Xanax) 0.25 mg PRN DAILY PRN PO ANXIETY / AGITATION; Start at 09:15 Atorvastatin Calcium (Lipitor) 10 mg QHS PO Last administered on 02/28/18at 22: 54; Start 02/27/18 at 21:00 Gabapentin (Neurontin) 300 mg QHS PO Last administered on 02/28/18at 22:54; Start 02/27/18 at 21:00 Sertraline HCl (Zoloft) 50 mg QHS PO Last administered on 02/28/18at 22:54; Start 02/27/18 at 21:00 Acetaminophen/ Hydrocodone Bitart (Lortab 10/325) 1 tab PRN Q6HRS PRN PO PAIN; Start 02/27/18 at 09:30; Stop 02/27/18 at 09:30; Status DC Vancomycin HCl 2 gm/Sodium Chloride 500 ml @ 250 mls/hr 1X ONCE IV ; Start at 09:15; Stop 02/27/18 at 11:14; Status UNV Vancomycin HCl (Vanco Per Pharmacy) 1 each PRN DAILY PRN MC SEE COMMENTS Last administered on 02/28/18at 15:13; Start 02/27/18 at 09:15 Acetaminophen (Tylenol) 650 mg PRN Q6HRS PRN PO FEVER; Start 02/27/18 at 09:15 Ondansetron HCl (Zofran) 4 mg PRN Q6HRS PRN IV NAUSEA/VOMITING Last administered on 03/01/18at 05:15; Start 02/27/18 at 09:15 Docusate Sodium (Colace) 100 mg PRN DAILY PRN PO CONSTIPATION; Start 02/27/18 at 09:15 Heparin Sodium (Porcine) (Heparin Sodium) 5,000 unit Q8HRS SQ ; Start 02/27/18 at 14:00 Acetaminophen/ Hydrocodone Bitart (Lortab 10/325) 1 tab PRN Q6HRS PRN PO PAIN Last administered on 03/01/18at 06:18; Start 02/27/18 at 09:30 Vancomycin HCl 1.75 gm/Sodium Chloride 500 ml @ 250 mls/hr 1X ONCE IV Last administered on 02/27/18at 18:40; Start 02/27/18 at 12:00; Stop 02/27/18 at 13:59 ; Status DC Piperacillin Sod/ Tazobactam Sod 2.25 gm/Sodium Chloride 50 ml @ 100 mls/hr Q8HRS IV Last administered on 03/01/18at 05:15; Start 02/27/18 at 15:00 Lactobacillus Rhamnosus (Culturelle) 1 cap BID PO Last administered on at 22:54; Start 02/28/18 at 09:00 Levothyroxine Sodium (Synthroid) 88 mcg DAILY06 PO Last administered on at 15:31; Start 02/28/18 at 14:30 Vancomycin HCl (Vancomycin Random Level) 1 each 1X ONCE MC ; Start 03/01/18 at 05:00; Stop 03/01/18 at 05:01; Status DC Active Scripts Active FENTANYL 25mcg/hr (Fentanyl) 1 Each Patch.td72 1 Patch TD Q3DAYS 30 Days Atorvastatin Calcium 10 Mg Tablet 10 Mg PO QHS 30 Days Carvedilol (Carvedilol) 3.125 Mg Tablet 3.125 Mg PO BIDWMEALS Reported [place] 10-325 Tablet (Acetaminophen/Hydrocodone Bitart) 1 Each Tablet 1 Tab PO Q4 -6HRS Polyethylene Glycol 3350 17 Gm Powd.pack 17 Gm PO PRN DAILY PRN Sertraline Hcl 50 Mg Tablet 50 Mg PO QHS Sensipar (Cinacalcet Hcl) 30 Mg Tablet 1 Tab PO QHS Alayna-Oneil Rx Tablet (Vit B Cmplx 3/Fa/Vit C/Biotin) 1 Each Tablet 1 Each PO DAILY Cranberry Plus Vitamin C Sftgl (Cranberry Conc/Ascorbic Acid) 1 Each Capsule 1 Each PO QHS Alprazolam 0.25 Mg Tablet 1 Tab PO DAILY PRN Plavix (Clopidogrel Bisulfate) 75 Mg Tablet 75 Mg PO QHS Calcium Acetate 667 Mg Tablet 2 Tab PO TIDWMEALS Tylenol Extra Strength (Acetaminophen) 500 Mg Tablet 500 Mg PO PRN Q12HRS PRN Gabapentin (Gabapentin) 300 Mg Capsule 300 Mg PO QHS Benadryl Allergy (Diphenhydramine Hcl) 25 Mg Tablet 25 Mg PO PRN not given in the hospital Aspir 81 (Aspirin) 81 Mg Tablet.dr 81 Mg PO QHS Vitals/I & O Vital Sign - Last 24 Hours 02/28/18 02/28/18 02/28/18 02/28/18 07:49 09:04 15:00 18:11 Temp 98.4 98.4 Pulse 61 Resp 18 B/P (MAP) 108/48 (68) Pulse Ox 100 O2 Delivery Room Air Room Air Room Air Room Air 02/28/18 02/28/18 02/28/18 02/28/18 19:45 19:47 20:34 22:55 Temp 97.8 97.8 Pulse 61 61 Resp 18 B/P (MAP) 84/33 (50) 104/49 (67) Pulse Ox 97 97 O2 Delivery Room Air Room Air Room Air 02/28/18 03/01/18 03/01/18 03/01/18 23:32 00:12 03:31 05:16 Temp 97.7 97.4 97.7 97.4 Pulse 68 69 Resp 18 19 B/P (MAP) 111/57 (75) 103/39 (60) Pulse Ox 100 100 97 97 O2 Delivery Room Air Room Air Room Air Room Air 03/01/18 03/01/18 03/01/18 06:18 06:18 07:25 Pulse Ox 97 97 O2 Delivery Room Air Room Air Room Air Intake and Output 02/28/18 02/28/18 03/01/18 15:00 23:00 07:00 Intake Total 60 ml 120 ml 240 ml Output Total 250 ml Balance 60 ml 120 ml -10 ml SHARRON SMITH MD Mar 01, 2018 07:41
[2018-03-01 08:17] LABS: BASO # 0.1 x10^3/uL (0.0-0.2); BASO % 1 % (0-3); EOS # 0.1 x10^3/uL (0.0-0.7); EOS % 2 % (0-3); HEMATOCRIT 24.7 % (36.0-47.0); HEMOGLOBIN 8.2 g/dL (12.0-15.5); LYMPH # 1.7 x10^3/uL (1.0-4.8); LYMPH % 25 % (24-48); MEAN CORPUSCULAR HEMOGLOBIN 31 pg (25-35); MEAN CORPUSCULAR HGB CONC 33 g/dL (31-37); MEAN CORPUSCULAR VOLUME 94 fL (79-100); MONO # 0.7 x10^3/uL (0.0-1.1); MONO % 11 % (0-9); NEUT # 4.2 x10^3uL (1.8-7.7); NEUT % 61 % (31-73); PLATELET COUNT 217 x10^3/uL (140-400); RED BLOOD COUNT 2.62 x10^6/uL (3.50-5.40); RED CELL DISTRIBUTION WIDTH 21.4 % (11.5-14.5); WHITE BLOOD COUNT 6.9 x10^3/uL (4.0-11.0)
[2018-03-01 08:35] LABS: CALCIUM 7.6 mg/dL (8.5-10.1); CREATININE 4.9 mg/dL (0.6-1.0); GFR 8.8; POTASSIUM 4.2 mmol/L (3.5-5.1)
[2018-03-01] MEDS: FOLIC/VIT B COMP W-C (RENAL) TABLET. PO SCH (09:00)
[2018-03-01] MEDS: LACTOBACILLUS RHAMNOSUS GG 1 CAPSULE. PO SCH ×2 (09:00→21:59)
[2018-03-01 09:26] LABS: PROTHROMBIN TIME PATIENT 14.1 SEC (11.7-14.0)
[2018-03-01] MEDS: CARVEDILOL 3.125 MG TABLET. PO SCH ×2 (09:51→17:47)
[2018-03-01 11:00] VITALS: BP 99/43
--- NOTE | 2018-03-01 11:55 | PDOC ---
Infectious Disease Note Subjective: Subjective Feeling alright No F/C/S/pain/N/V/D/SOA ROS: ROS Negative except for above. Vital Signs: Vital Signs Vital Signs Date Time Temp Pulse Resp B/P (MAP) Pulse Ox O2 Delivery O2 Flow Rate FiO2 03/01/18 11:00 97.5 61 14 99/43 (61) 97 Room Air 97.5 Physical Exam: PHYSICAL EXAM GENERAL: Sitting in the chair, tired appearance, NAD HEENT: Pupils equally round. Normal conjunctivae. Oral cavity pink and moist. NECK: Supple. LUNGS: Clear to auscultation. HEART: S1 and S2. AICD. ABDOMEN: Soft and nontender. Bowel sounds present. EXTREMITIES: Unremarkable except right lower extremity 1+ edema. Large deep ulcer, medial right lower extremity with foul odor and necrotic tissue. Also has a smaller necrotic ulcer lateral ankle as well. DP pulse difficult to palpate. SKIN: Warm without rash. LUE-AV fistula NEUROLOGICAL: Alert and oriented x 3. Medications: Inpatient Meds: Current Medications Medications (Trade) Dose Ordered Sig/Liza Start Time Stop Time Status Last Admin Dose Admin Acetaminophen (Tylenol) 650 mg PRN Q6HRS PRN 02/27/18 09:15 Acetaminophen/ Hydrocodone Bitart (Lortab 10/325) 1 tab PRN Q6HRS PRN 02/27/18 09:30 03/01/18 06:18 1 TAB Albuterol Sulfate (Ventolin Neb Soln) 10 mg 1X ONCE 02/25/18 19:00 02/25/18 19:01 DC Alprazolam (Xanax) 0.25 mg PRN DAILY PRN 02/27/18 09:15 Aspirin (Ecotrin) 81 mg QHS 02/26/18 21:00 02/28/18 22:54 81 MG Atorvastatin Calcium (Lipitor) 10 mg QHS 02/27/18 21:00 02/28/18 22:54 10 MG Calcium Gluconate (Calcium Gluconate) 1,000 mg 1X ONCE 02/25/18 19:00 02/25/18 19:01 DC 02/25/18 19:07 1,000 MG Carvedilol (Coreg) 3.125 mg BIDWMEALS 02/26/18 08:00 03/01/18 09:51 3.125 MG Cinacalcet (Sensipar) 30 mg QHS 02/26/18 21:00 02/28/18 22:54 30 MG Clopidogrel Bisulfate (Plavix) 75 mg QHS 02/26/18 21:00 02/28/18 22:54 75 MG Dextrose (Dextrose 50%-Water Syringe) 25 gm 1X ONCE 02/25/18 19:00 02/25/18 19:01 DC 02/25/18 19:14 25 GM Docusate Sodium (Colace) 100 mg PRN DAILY PRN 02/27/18 09:15 Gabapentin (Neurontin) 300 mg QHS 02/27/18 21:00 02/28/18 22:54 300 MG Heparin Sodium (Porcine) (Heparin Sodium) 5,000 unit Q8HRS 02/27/18 14:00 Info (PHARMACY MONITORING -- do not chart) 1 each PRN DAILY PRN 02/27/18 08:45 Insulin Human Regular (HumuLIN R VIAL) 10 unit 1X ONCE 02/25/18 19:00 02/25/18 19:01 DC 02/25/18 19:13 10 UNIT Lactobacillus Rhamnosus (Culturelle) 1 cap BID 02/28/18 09:00 02/28/18 22:54 1 CAP Levothyroxine Sodium (Synthroid) 88 mcg DAILY06 02/28/18 14:30 02/28/18 15:31 88 MCG Lidocaine HCl (Lidocaine Pf 2% Vial) 5 ml 1X ONCE 02/27/18 09:00 02/27/18 09:01 DC 02/27/18 09:00 5 ML Lidocaine HCl (Xylocaine-Mpf 2% Vial) 2 ml 1X ONCE 02/27/18 09:00 02/27/18 09:01 DC Ondansetron HCl (Zofran) 4 mg PRN Q6HRS PRN 02/27/18 09:15 03/01/18 05:15 4 MG Piperacillin Sod/ Tazobactam Sod 2.25 gm/Sodium Chloride 50 ml @ 100 mls/hr Q8HRS 02/27/18 15:00 03/01/18 05:15 100 MLS/HR Polyethylene Glycol (miraLAX PACKET) 17 gm PRN DAILY PRN 02/26/18 09:00 Sertraline HCl (Zoloft) 50 mg QHS 12/8/18 21:00 02/28/18 22:54 50 MG Sodium Bicarbonate (Sodium Bicarb Adult 8.4% Syr) 50 meq 1X ONCE 02/25/18 19:00 02/25/18 19:01 DC 02/25/18 19:16 50 MEQ Sodium Chloride 1,000 ml @ 400 mls/hr Q2H30M PRN 02/27/18 08:41 02/27/18 20:40 DC Tramadol HCl (Ultram) 50 mg PRN Q6HRS PRN 02/26/18 20:00 03/01/18 05:16 50 MG Vancomycin HCl (Vanco Per Pharmacy) 1 each PRN DAILY PRN 02/27/18 09:15 02/28/18 15:13 1 EACH Vancomycin HCl (Vancomycin Random Level) 1 each 1X ONCE 03/01/18 05:00 03/01/18 05:01 DC Vancomycin HCl 1.75 gm/Sodium Chloride 500 ml @ 250 mls/hr 1X ONCE 02/27/18 12:00 02/27/18 13:59 DC 02/27/18 18:40 250 MLS/HR Vancomycin HCl 2 gm/Sodium Chloride 500 ml @ 250 mls/hr 1X ONCE 02/27/18 09:15 02/27/18 11:14 UNV Vitamin B Complex/ Vitamin C (Alayna-Oneil) 1 tab DAILY 02/26/18 09:00 02/28/18 09:04 1 TAB Labs: Lab Laboratory Tests Test 03/01/18 07:42 White Blood Count 6.9 x10^3/uL (4.0-11.0) Red Blood Count 2.62 x10^6/uL (3.50-5.40) Hemoglobin 8.2 g/dL (12.0-15.5) Hematocrit 24.7 % (36.0-47.0) Mean Corpuscular Volume 94 fL (79-100) Mean Corpuscular Hemoglobin 31 pg (25-35) Mean Corpuscular Hemoglobin Concent 33 g/dL (31-37) Red Cell Distribution Width 21.4 % (11.5-14.5) Platelet Count 217 x10^3/uL (140-400) Neutrophils (%) (Auto) 61 % (31-73) Lymphocytes (%) (Auto) 25 % (24-48) Monocytes (%) (Auto) 11 % (0-9) Eosinophils (%) (Auto) 2 % (0-3) Basophils (%) (Auto) 1 % (0-3) Neutrophils # (Auto) 4.2 x10^3uL (1.8-7.7) Lymphocytes # (Auto) 1.7 x10^3/uL (1.0-4.8) Monocytes # (Auto) 0.7 x10^3/uL (0.0-1.1) Eosinophils # (Auto) 0.1 x10^3/uL (0.0-0.7) Basophils # (Auto) 0.1 x10^3/uL (0.0-0.2) Prothrombin Time 14.1 SEC (11.7-14.0) Prothromb Time International Ratio 1.1 (0.8-1.1) Activated Partial Thromboplast Time 38 SEC (24-38) Sodium Level 140 mmol/L (136-145) Potassium Level 4.2 mmol/L (3.5-5.1) Chloride Level 102 mmol/L (98-107) Carbon Dioxide Level 29 mmol/L (21-32) Anion Gap 9 (6-14) Blood Urea Nitrogen 22 mg/dL (7-20) Creatinine 4.9 mg/dL (0.6-1.0) Estimated GFR (Cockcroft-Gault) 8.8 Glucose Level 81 mg/dL (70-99) Calcium Level 7.6 mg/dL (8.5-10.1) Random Vancomycin Level 18.3 mcg/mL Micro RUN DATE: 02/28/18 PAGE 1 RUN TIME: 1710 [facility] [address] [place] [address] Saleem Walsh M.D., Airplane Tester PATIENT: DIANE CARLSON ACCT: [id number] LOC: [address] [place] [address] U : [id number] AGE/SX: 68/F ROOM: [facility] REG : 02/25/[address]: ROLAND ELLIOTT MD : 1950 BED: 1 DIS : STATUS: ADM IN TLOC: SPEC #: [id number] AMADO: 02/26/18 STATUS: RES REQ #: [id number] RECD: 02/26/[address] [facility] [address]: ROLAND ELLIOTT MD SOURCE: LEG ENTR: 02/26/18 [facility] [address]: JULIET DAVEY MD SPDESC: WOUND UNKNOWN PCP NAME ORDERED: PETER/AEROB/GS Procedure Result ANAEROBIC-AEROBIC CULTURE PENDING ANAEROBIC RES 1 PENDING AEROBIC CULT Preliminary Preliminary report AEROBIC RES 1 Preliminary Staphylococcus aureus 4+ AEROBIC RES 2 Preliminary Streptococcus species 4+ AEROBIC RES 3 Preliminary Comment Beta hemolytic Streptococcus, group B 4+ Penicillin and ampicillin are drugs of choice for treatment of beta-hemolytic streptococcal infections. Susceptibility testing of penicillins and other beta-lactam agents approved by the FDA for treatment of beta-hemolytic streptococcal infections need not be performed routinely because nonsusceptible isolates are extremely rare in any beta-hemolytic streptococcus and have not been reported for Streptococcus pyogenes (group A). (CLSI) GRAM STAIN Final Final report CONTINUED ON NEXT PAGE RUN DATE: 02/28/18 PAGE 2 RUN TIME: 2876 [facility] [address] [place] [address] Saleem Walsh M.D., Airplane Tester SPEC: [id number] PATIENT: DIANE CARLSON [id number] ( Continued) Procedure Result GRAM STAIN RES 1 Final Comment No white blood cells seen. GRAM STAIN RES 2 Final Comment Many gram positive cocci. Performed at: - [facility] [address] [facility] [address], [place], [place] [id number] Storage Engineer: MANUEL Stark MD, Phone: [phone] Objective: Assessment: Nonhealing right ankle wound with cellulitis. Staph aureus and Grp B strep Necrotic ulcer right lateral ankle DM PVD CKD on HD AICD in place Run V-tach Tobaccoism allergy to cipro Plan: Plan of Care Continue vancomycin and Zosyn f/u LUZ of Staph aureus,will modify treatment per cult data Monitor labs/temp f/u cultures Local wound care Smoking cessation vascular following JUNIOR QUARLES MD Mar 01, 2018 11:55
--- NOTE | 2018-03-01 12:35 | PDOC ---
PROGRESS NOTES Assessment Problems Medical Problems: (1) Anemia Status: Acute (2) Generalized weakness Status: Acute (3) Hyperkalemia Status: Acute Generalized weakness, multi-factorial. Renal failure on dialysis. DM Right LE wound. Obesity. Plan Treat medical diseases. Treat hypothyroidism per medical team. Wound care. FU with PCP. Subjective no complaints, feels better Objective Vital Signs Date Time Temp Pulse Resp B/P (MAP) Pulse Ox O2 Delivery O2 Flow Rate FiO2 03/01/18 11:56 Room Air 03/01/18 11:00 97.5 61 14 99/43 (61) 97 97.5 Intake and Output 03/01/18 07:00 Intake Total 420 ml Output Total 250 ml Balance 170 ml Intake Oral 420 ml Output Urine Total 250 ml # Voids 1 PHYSICAL EXAM Alert. Oriented to time, place and person. PERRL. EOMI. CN: no focal findings. Muscle tone: normal. Muscle strength: 4+/5 DTR: 1+ Plantar reflex: flexor Gait: not examined in bed. Sensory exam: no abnormal findings. No cerebellar signs elicited. Review of Relevant I have reviewed the following items ashley (where applicable) has been applied. Labs Laboratory Tests Test 02/27/18 16:38 02/28/18 09:23 03/01/18 07:42 Glucose (Fingerstick) 74 mg/dL (70-99) White Blood Count 8.4 x10^3/uL (4.0-11.0) 6.9 x10^3/uL (4.0-11.0) Red Blood Count 2.40 x10^6/uL (3.50-5.40) 2.62 x10^6/uL (3.50-5.40) Hemoglobin 7.5 g/dL (12.0-15.5) 8.2 g/dL (12.0-15.5) Hematocrit 22.5 % (36.0-47.0) 24.7 % (36.0-47.0) Mean Corpuscular Volume 94 fL (79-100) 94 fL (79-100) Mean Corpuscular Hemoglobin 31 pg (25-35) 31 pg (25-35) Mean Corpuscular Hemoglobin Concent 33 g/dL (31-37) 33 g/dL (31-37) Red Cell Distribution Width 22.1 % (11.5-14.5) 21.4 % (11.5-14.5) Platelet Count 205 x10^3/uL (140-400) 217 x10^3/uL (140-400) Neutrophils (%) (Auto) 77 % (31-73) 61 % (31-73) Lymphocytes (%) (Auto) 13 % (24-48) 25 % (24-48) Monocytes (%) (Auto) 9 % (0-9) 11 % (0-9) Eosinophils (%) (Auto) 1 % (0-3) 2 % (0-3) Basophils (%) (Auto) 1 % (0-3) 1 % (0-3) Neutrophils # (Auto) 6.4 x10^3uL (1.8-7.7) 4.2 x10^3uL (1.8-7.7) Lymphocytes # (Auto) 1.1 x10^3/uL (1.0-4.8) 1.7 x10^3/uL (1.0-4.8) Monocytes # (Auto) 0.7 x10^3/uL (0.0-1.1) 0.7 x10^3/uL (0.0-1.1) Eosinophils # (Auto) 0.1 x10^3/uL (0.0-0.7) 0.1 x10^3/uL (0.0-0.7) Basophils # (Auto) 0.1 x10^3/uL (0.0-0.2) 0.1 x10^3/uL (0.0-0.2) Sodium Level 141 mmol/L (136-145) 140 mmol/L (136-145) Potassium Level 4.2 mmol/L (3.5-5.1) 4.2 mmol/L (3.5-5.1) Chloride Level 102 mmol/L (98-107) 102 mmol/L (98-107) Carbon Dioxide Level 30 mmol/L (21-32) 29 mmol/L (21-32) Anion Gap 9 (6-14) 9 (6-14) Blood Urea Nitrogen 19 mg/dL (7-20) 22 mg/dL (7-20) Creatinine 4.2 mg/dL (0.6-1.0) 4.9 mg/dL (0.6-1.0) Estimated GFR (Cockcroft-Gault) 10.6 8.8 Glucose Level 122 mg/dL (70-99) 81 mg/dL (70-99) Calcium Level 7.6 mg/dL (8.5-10.1) 7.6 mg/dL (8.5-10.1) Free Thyroxine 0.54 ng/dL (0.76-1.46) Free Triiodothyronine (T3) pg/mL 0.99 pg/mL (2.18-3.98) Prothrombin Time 14.1 SEC (11.7-14.0) Prothromb Time International Ratio 1.1 (0.8-1.1) Activated Partial Thromboplast Time 38 SEC (24-38) Random Vancomycin Level 18.3 mcg/mL Laboratory Tests Test 03/01/18 07:42 White Blood Count 6.9 x10^3/uL (4.0-11.0) Red Blood Count 2.62 x10^6/uL (3.50-5.40) Hemoglobin 8.2 g/dL (12.0-15.5) Hematocrit 24.7 % (36.0-47.0) Mean Corpuscular Volume 94 fL (79-100) Mean Corpuscular Hemoglobin 31 pg (25-35) Mean Corpuscular Hemoglobin Concent 33 g/dL (31-37) Red Cell Distribution Width 21.4 % (11.5-14.5) Platelet Count 217 x10^3/uL (140-400) Neutrophils (%) (Auto) 61 % (31-73) Lymphocytes (%) (Auto) 25 % (24-48) Monocytes (%) (Auto) 11 % (0-9) Eosinophils (%) (Auto) 2 % (0-3) Basophils (%) (Auto) 1 % (0-3) Neutrophils # (Auto) 4.2 x10^3uL (1.8-7.7) Lymphocytes # (Auto) 1.7 x10^3/uL (1.0-4.8) Monocytes # (Auto) 0.7 x10^3/uL (0.0-1.1) Eosinophils # (Auto) 0.1 x10^3/uL (0.0-0.7) Basophils # (Auto) 0.1 x10^3/uL (0.0-0.2) Prothrombin Time 14.1 SEC (11.7-14.0) Prothromb Time International Ratio 1.1 (0.8-1.1) Activated Partial Thromboplast Time 38 SEC (24-38) Sodium Level 140 mmol/L (136-145) Potassium Level 4.2 mmol/L (3.5-5.1) Chloride Level 102 mmol/L (98-107) Carbon Dioxide Level 29 mmol/L (21-32) Anion Gap 9 (6-14) Blood Urea Nitrogen 22 mg/dL (7-20) Creatinine 4.9 mg/dL (0.6-1.0) Estimated GFR (Cockcroft-Gault) 8.8 Glucose Level 81 mg/dL (70-99) Calcium Level 7.6 mg/dL (8.5-10.1) Random Vancomycin Level 18.3 mcg/mL Microbiology 02/26/18 Anaerobic/Aerobic Culture, Resulted Pending 02/26/18 Anaerobic Culture Result 1 (LUZ), Resulted Pending 02/26/18 Aerobic Culture - Preliminary, Resulted 02/26/18 Aerobic Culture Result 1 (LUZ) - Preliminary, Resulted 02/26/18 Aerobic Culture Result 2 (LUZ) - Preliminary, Resulted 02/26/18 Aerobic Culture Result 3 (LUZ) - Preliminary, Resulted 02/26/18 Gram Stain - Final, Resulted 02/26/18 Gram Stain Result 1 (LUZ) - Final, Resulted 02/26/18 Gram Stain Result 2 (LUZ) - Final, Resulted Medications Current Medications Sodium Bicarbonate (Sodium Bicarb Adult 8.4% Syr) 50 meq 1X ONCE IV Last administered on 02/25/18at 19:16; Start 02/25/18 at 19:00; Stop 02/25/18 at 19:01 ; Status DC Calcium Gluconate (Calcium Gluconate) 1,000 mg 1X ONCE IVP Last administered on 02/25/18at 19:07; Start 02/25/18 at 19:00; Stop 02/25/18 at 19:01; Status DC Dextrose (Dextrose 50%-Water Syringe) 25 gm 1X ONCE IV Last administered on at 19:14; Start 02/25/18 at 19:00; Stop 02/25/18 at 19:01; Status DC Insulin Human Regular (HumuLIN R VIAL) 10 unit 1X ONCE IV Last administered on 02/25/18at 19:13; Start 02/25/18 at 19:00; Stop 02/25/18 at 19:01; Status DC Albuterol Sulfate (Ventolin Neb Soln) 10 mg 1X ONCE CONT NEB ; Start 02/25/18 at 19:00; Stop 02/25/18 at 19:01; Status DC Ondansetron HCl (Zofran) 4 mg PRN Q8HRS PRN IV NAUSEA/VOMITING; Start 02/25/18 at 21:00; Stop 02/26/18 at 20:59; Status DC Aspirin (Ecotrin) 81 mg QHS PO Last administered on 02/28/18at 22:54; Start 02/26/18 at 21:00 Carvedilol (Coreg) 3.125 mg BIDWMEALS PO Last administered on 03/01/18at 09:51 ; Start 02/26/18 at 08:00 Cinacalcet (Sensipar) 30 mg QHS PO Last administered on 02/28/18at 22:54; Start 02/26/18 at 21:00 Clopidogrel Bisulfate (Plavix) 75 mg QHS PO Last administered on 02/28/18at 22: 54; Start 02/26/18 at 21:00 Polyethylene Glycol (miraLAX PACKET) 17 gm PRN DAILY PRN PO CONSTIPATION 1ST CHOICE; Start 02/26/18 at 09:00 Vitamin B Complex/ Vitamin C (Alayna-Oneil) 1 tab DAILY PO Last administered on at 09:04; Start 02/26/18 at 09:00 Sodium Chloride 1,000 ml @ 1,000 mls/hr Q1H PRN IV hypotension; Start 02/26/18 at 13:42; Stop 02/26/18 at 19:41; Status DC Sodium Chloride 1,000 ml @ 400 mls/hr Q2H30M PRN IV PATENCY; Start 02/26/18 at 13:42; Stop 02/27/18 at 01:42; Status DC Info (PHARMACY MONITORING -- do not chart) 1 each PRN DAILY PRN MC SEE COMMENTS ; Start 02/26/18 at 13:45; Stop 02/27/18 at 15:54; Status DC Lidocaine HCl (Xylocaine-Mpf 2% Vial) 0.5 ml 1X STAT ID Last administered on 02/26/18at 14:58; Start 02/26/18 at 14:46; Stop 02/26/18 at 14:50; Status DC Tramadol HCl (Ultram) 50 mg PRN Q6HRS PRN PO PAIN Last administered on at 11:56; Start 02/26/18 at 20:00 Sodium Chloride 1,000 ml @ 1,000 mls/hr Q1H PRN IV hypotension; Start 02/27/18 at 08:41; Stop 02/27/18 at 14:40; Status DC Sodium Chloride 1,000 ml @ 400 mls/hr Q2H30M PRN IV PATENCY; Start 02/27/18 at 08:41; Stop 02/27/18 at 20:40; Status DC Info (PHARMACY MONITORING -- do not chart) 1 each PRN DAILY PRN MC SEE COMMENTS ; Start 02/27/18 at 08:45; Status UNV Info (PHARMACY MONITORING -- do not chart) 1 each PRN DAILY PRN MC SEE COMMENTS ; Start 02/27/18 at 08:45 Lidocaine HCl (Xylocaine-Mpf 2% Vial) 2 ml 1X ONCE INJ ; Start 02/27/18 at 09: 00; Stop 02/27/18 at 09:01; Status DC Lidocaine HCl (Lidocaine Pf 2% Vial) 5 ml 1X ONCE IJ Last administered on 02/27at 09:00; Start 02/27/18 at 09:00; Stop 02/27/18 at 09:01; Status DC Alprazolam (Xanax) 0.25 mg PRN DAILY PRN PO ANXIETY / AGITATION; Start at 09:15 Atorvastatin Calcium (Lipitor) 10 mg QHS PO Last administered on 02/28/18at 22: 54; Start 02/27/18 at 21:00 Gabapentin (Neurontin) 300 mg QHS PO Last administered on 02/28/18at 22:54; Start 02/27/18 at 21:00 Sertraline HCl (Zoloft) 50 mg QHS PO Last administered on 02/28/18at 22:54; Start 02/27/18 at 21:00 Acetaminophen/ Hydrocodone Bitart (Lortab 10/325) 1 tab PRN Q6HRS PRN PO PAIN; Start 02/27/18 at 09:30; Stop 02/27/18 at 09:30; Status DC Vancomycin HCl 2 gm/Sodium Chloride 500 ml @ 250 mls/hr 1X ONCE IV ; Start at 09:15; Stop 02/27/18 at 11:14; Status UNV Vancomycin HCl (Vanco Per Pharmacy) 1 each PRN DAILY PRN MC SEE COMMENTS Last administered on 02/28/18at 15:13; Start 02/27/18 at 09:15 Acetaminophen (Tylenol) 650 mg PRN Q6HRS PRN PO FEVER; Start 02/27/18 at 09:15 Ondansetron HCl (Zofran) 4 mg PRN Q6HRS PRN IV NAUSEA/VOMITING Last administered on 03/01/18at 11:57; Start 02/27/18 at 09:15 Docusate Sodium (Colace) 100 mg PRN DAILY PRN PO CONSTIPATION; Start 02/27/18 at 09:15 Heparin Sodium (Porcine) (Heparin Sodium) 5,000 unit Q8HRS SQ ; Start 02/27/18 at 14:00 Acetaminophen/ Hydrocodone Bitart (Lortab 10/325) 1 tab PRN Q6HRS PRN PO PAIN Last administered on 03/01/18at 06:18; Start 02/27/18 at 09:30 Vancomycin HCl 1.75 gm/Sodium Chloride 500 ml @ 250 mls/hr 1X ONCE IV Last administered on 02/27/18at 18:40; Start 02/27/18 at 12:00; Stop 02/27/18 at 13:59 ; Status DC Piperacillin Sod/ Tazobactam Sod 2.25 gm/Sodium Chloride 50 ml @ 100 mls/hr Q8HRS IV Last administered on 03/01/18at 05:15; Start 02/27/18 at 15:00 Lactobacillus Rhamnosus (Culturelle) 1 cap BID PO Last administered on at 22:54; Start 02/28/18 at 09:00 Levothyroxine Sodium (Synthroid) 88 mcg DAILY06 PO Last administered on at 15:31; Start 02/28/18 at 14:30 Vancomycin HCl (Vancomycin Random Level) 1 each 1X ONCE MC ; Start 03/01/18 at 05:00; Stop 03/01/18 at 05:01; Status DC Active Scripts Active FENTANYL 25mcg/hr (Fentanyl) 1 Each Patch.td72 1 Patch TD Q3DAYS 30 Days Atorvastatin Calcium 10 Mg Tablet 10 Mg PO QHS 30 Days Carvedilol (Carvedilol) 3.125 Mg Tablet 3.125 Mg PO BIDWMEALS Reported [place] 10-325 Tablet (Acetaminophen/Hydrocodone Bitart) 1 Each Tablet 1 Tab PO Q4 -6HRS Polyethylene Glycol 3350 17 Gm Powd.pack 17 Gm PO PRN DAILY PRN Sertraline Hcl 50 Mg Tablet 50 Mg PO QHS Sensipar (Cinacalcet Hcl) 30 Mg Tablet 1 Tab PO QHS Alayna-Oneil Rx Tablet (Vit B Cmplx 3/Fa/Vit C/Biotin) 1 Each Tablet 1 Each PO DAILY Cranberry Plus Vitamin C Sftgl (Cranberry Conc/Ascorbic Acid) 1 Each Capsule 1 Each PO QHS Alprazolam 0.25 Mg Tablet 1 Tab PO DAILY PRN Plavix (Clopidogrel Bisulfate) 75 Mg Tablet 75 Mg PO QHS Calcium Acetate 667 Mg Tablet 2 Tab PO TIDWMEALS Tylenol Extra Strength (Acetaminophen) 500 Mg Tablet 500 Mg PO PRN Q12HRS PRN Gabapentin (Gabapentin) 300 Mg Capsule 300 Mg PO QHS Benadryl Allergy (Diphenhydramine Hcl) 25 Mg Tablet 25 Mg PO PRN not given in the hospital Aspir 81 (Aspirin) 81 Mg Tablet. 81 Mg PO QHS Vitals/I & O Vital Sign - Last 24 Hours 02/28/18 02/28/18 02/28/18 02/28/18 15:00 18:11 19:45 19:47 Temp 98.4 97.8 98.4 97.8 Pulse 61 61 Resp 18 18 B/P (MAP) 108/48 (68) 84/33 (50) Pulse Ox 100 97 O2 Delivery Room Air Room Air Room Air Room Air 02/28/18 02/28/18 02/28/18 03/01/18 20:34 22:55 23:32 00:12 Temp 97.7 97.7 Pulse 61 68 Resp 18 B/P (MAP) 104/49 (67) 111/57 (75) Pulse Ox 97 100 100 O2 Delivery Room Air Room Air Room Air 12/1003/01/18 03/01/18 03/01/18 03:31 05:16 06:18 06:18 Temp 97.4 97.4 Pulse 69 Resp 19 B/P (MAP) 103/39 (60) Pulse Ox 97 97 97 97 O2 Delivery Room Air Room Air Room Air Room Air 03/01/18 03/01/18 03/01/18 03/01/18 07:00 07:25 09:51 11:00 Temp 97.5 97.5 97.5 97.5 Pulse 63 63 61 Resp 16 14 B/P (MAP) 114/50 (71) 114/50 99/43 (61) Pulse Ox 100 97 O2 Delivery Room Air Room Air Room Air 03/01/18 11:56 O2 Delivery Room Air Intake and Output 02/28/18 02/28/18 03/01/18 15:00 23:00 07:00 Intake Total 60 ml 120 ml 240 ml Output Total 250 ml Balance 60 ml 120 ml -10 ml JENNIFER CANAS MD Mar 01, 2018 12:35
[2018-03-01] MEDS: VANCOMYCIN PER PHARMACY MC PRN ×3 (13:38→13:42)
--- NOTE | 2018-03-01 13:59 | PDOC ---
PROGRESS NOTES Subjective Subjective Pt is sitting on side of bed. Only complaint today is right lower leg pain. She was to go for arteriogram today, however was cancelled. WBC stable at 6.9. Pt wondering why we cant put the vac back on the wound as she reports it was doing good then. Objective Objective Vital Signs Date Time Temp Pulse Resp B/P (MAP) Pulse Ox O2 Delivery O2 Flow Rate FiO2 03/01/18 13:04 Room Air 03/01/18 11:00 97.5 61 14 99/43 (61) 97 97.5 02/26/18 20:55 2.0 Intake and Output 03/01/18 07:00 Intake Total 420 ml Output Total 250 ml Balance 170 ml Intake Oral 420 ml Output Urine Total 250 ml # Voids 1 Physical Exam Physical Exam VSS, afebrile Awake, alert, in no apparent distress. Respirations non labored Right lower leg with erythema surrounding medial wound and shiny, taught skin to about 6 cm below knee. Medial wound above malleolus with odor, minimal pus present with attached fibrinous tissue/debris, little granulation tissue present. Lateral wound with soft dark covering, about 2 cm diameter. Unable to appreciate right pedal pulses, unable to doppler. 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 Darling and Dr. Riddle it was determined the risks outweigh the benefits associated with moving forward with the procedure. 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 Dr. Darling is not recommending a bypass at this point. Today the wound still appears actively infected. I discussed with her why we cannot vac an infected wound. With active infection and poor wound healing I discussed our recommendation and possible future requirement of a BKA. She is not willing to move forward with this at this point and reluctantly exhibited understanding. We recommend to continue wound care at this point and IV antibiotics per ID. Continue dual antiplatelet therapy. I plan to have vascular surgeon see patient and further discuss our recommendations. Comment Review of Relevant I have reviewed the following items ashley (where applicable) has been applied. Labs Laboratory Tests Test 02/27/18 16:38 02/28/18 09:23 03/01/18 07:42 Glucose (Fingerstick) 74 mg/dL (70-99) White Blood Count 8.4 x10^3/uL (4.0-11.0) 6.9 x10^3/uL (4.0-11.0) Red Blood Count 2.40 x10^6/uL (3.50-5.40) 2.62 x10^6/uL (3.50-5.40) Hemoglobin 7.5 g/dL (12.0-15.5) 8.2 g/dL (12.0-15.5) Hematocrit 22.5 % (36.0-47.0) 24.7 % (36.0-47.0) Mean Corpuscular Volume 94 fL (79-100) 94 fL (79-100) Mean Corpuscular Hemoglobin 31 pg (25-35) 31 pg (25-35) Mean Corpuscular Hemoglobin Concent 33 g/dL (31-37) 33 g/dL (31-37) Red Cell Distribution Width 22.1 % (11.5-14.5) 21.4 % (11.5-14.5) Platelet Count 205 x10^3/uL (140-400) 217 x10^3/uL (140-400) Neutrophils (%) (Auto) 77 % (31-73) 61 % (31-73) Lymphocytes (%) (Auto) 13 % (24-48) 25 % (24-48) Monocytes (%) (Auto) 9 % (0-9) 11 % (0-9) Eosinophils (%) (Auto) 1 % (0-3) 2 % (0-3) Basophils (%) (Auto) 1 % (0-3) 1 % (0-3) Neutrophils # (Auto) 6.4 x10^3uL (1.8-7.7) 4.2 x10^3uL (1.8-7.7) Lymphocytes # (Auto) 1.1 x10^3/uL (1.0-4.8) 1.7 x10^3/uL (1.0-4.8) Monocytes # (Auto) 0.7 x10^3/uL (0.0-1.1) 0.7 x10^3/uL (0.0-1.1) Eosinophils # (Auto) 0.1 x10^3/uL (0.0-0.7) 0.1 x10^3/uL (0.0-0.7) Basophils # (Auto) 0.1 x10^3/uL (0.0-0.2) 0.1 x10^3/uL (0.0-0.2) Sodium Level 141 mmol/L (136-145) 140 mmol/L (136-145) Potassium Level 4.2 mmol/L (3.5-5.1) 4.2 mmol/L (3.5-5.1) Chloride Level 102 mmol/L (98-107) 102 mmol/L (98-107) Carbon Dioxide Level 30 mmol/L (21-32) 29 mmol/L (21-32) Anion Gap 9 (6-14) 9 (6-14) Blood Urea Nitrogen 19 mg/dL (7-20) 22 mg/dL (7-20) Creatinine 4.2 mg/dL (0.6-1.0) 4.9 mg/dL (0.6-1.0) Estimated GFR (Cockcroft-Gault) 10.6 8.8 Glucose Level 122 mg/dL (70-99) 81 mg/dL (70-99) Calcium Level 7.6 mg/dL (8.5-10.1) 7.6 mg/dL (8.5-10.1) Free Thyroxine 0.54 ng/dL (0.76-1.46) Free Triiodothyronine (T3) pg/mL 0.99 pg/mL (2.18-3.98) Prothrombin Time 14.1 SEC (11.7-14.0) Prothromb Time International Ratio 1.1 (0.8-1.1) Activated Partial Thromboplast Time 38 SEC (24-38) Random Vancomycin Level 18.3 mcg/mL Laboratory Tests Test 03/01/18 07:42 White Blood Count 6.9 x10^3/uL (4.0-11.0) Red Blood Count 2.62 x10^6/uL (3.50-5.40) Hemoglobin 8.2 g/dL (12.0-15.5) Hematocrit 24.7 % (36.0-47.0) Mean Corpuscular Volume 94 fL (79-100) Mean Corpuscular Hemoglobin 31 pg (25-35) Mean Corpuscular Hemoglobin Concent 33 g/dL (31-37) Red Cell Distribution Width 21.4 % (11.5-14.5) Platelet Count 217 x10^3/uL (140-400) Neutrophils (%) (Auto) 61 % (31-73) Lymphocytes (%) (Auto) 25 % (24-48) Monocytes (%) (Auto) 11 % (0-9) Eosinophils (%) (Auto) 2 % (0-3) Basophils (%) (Auto) 1 % (0-3) Neutrophils # (Auto) 4.2 x10^3uL (1.8-7.7) Lymphocytes # (Auto) 1.7 x10^3/uL (1.0-4.8) Monocytes # (Auto) 0.7 x10^3/uL (0.0-1.1) Eosinophils # (Auto) 0.1 x10^3/uL (0.0-0.7) Basophils # (Auto) 0.1 x10^3/uL (0.0-0.2) Prothrombin Time 14.1 SEC (11.7-14.0) Prothromb Time International Ratio 1.1 (0.8-1.1) Activated Partial Thromboplast Time 38 SEC (24-38) Sodium Level 140 mmol/L (136-145) Potassium Level 4.2 mmol/L (3.5-5.1) Chloride Level 102 mmol/L (98-107) Carbon Dioxide Level 29 mmol/L (21-32) Anion Gap 9 (6-14) Blood Urea Nitrogen 22 mg/dL (7-20) Creatinine 4.9 mg/dL (0.6-1.0) Estimated GFR (Cockcroft-Gault) 8.8 Glucose Level 81 mg/dL (70-99) Calcium Level 7.6 mg/dL (8.5-10.1) Random Vancomycin Level 18.3 mcg/mL Microbiology 02/26/18 Anaerobic/Aerobic Culture, Resulted Pending 02/26/18 Anaerobic Culture Result 1 (LUZ), Resulted Pending 02/26/18 Aerobic Culture - Preliminary, Resulted 02/26/18 Aerobic Culture Result 1 (LUZ) - Preliminary, Resulted 02/26/18 Aerobic Culture Result 2 (LUZ) - Preliminary, Resulted 02/26/18 Aerobic Culture Result 3 (LUZ) - Preliminary, Resulted 02/26/18 Gram Stain - Final, Resulted 02/26/18 Gram Stain Result 1 (LUZ) - Final, Resulted 02/26/18 Gram Stain Result 2 (LUZ) - Final, Resulted Medications Current Medications Sodium Bicarbonate (Sodium Bicarb Adult 8.4% Syr) 50 meq 1X ONCE IV Last administered on 02/25/18at 19:16; Start 02/25/18 at 19:00; Stop 02/25/18 at 19:01 ; Status DC Calcium Gluconate (Calcium Gluconate) 1,000 mg 1X ONCE IVP Last administered on 02/25/18at 19:07; Start 02/25/18 at 19:00; Stop 02/25/18 at 19:01; Status DC Dextrose (Dextrose 50%-Water Syringe) 25 gm 1X ONCE IV Last administered on at 19:14; Start 02/25/18 at 19:00; Stop 02/25/18 at 19:01; Status DC Insulin Human Regular (HumuLIN R VIAL) 10 unit 1X ONCE IV Last administered on 02/25/18at 19:13; Start 02/25/18 at 19:00; Stop 02/25/18 at 19:01; Status DC Albuterol Sulfate (Ventolin Neb Soln) 10 mg 1X ONCE CONT NEB ; Start 02/25/18 at 19:00; Stop 02/25/18 at 19:01; Status DC Ondansetron HCl (Zofran) 4 mg PRN Q8HRS PRN IV NAUSEA/VOMITING; Start 02/25/18 at 21:00; Stop 02/26/18 at 20:59; Status DC Aspirin (Ecotrin) 81 mg QHS PO Last administered on 02/28/18at 22:54; Start 02/26/18 at 21:00 Carvedilol (Coreg) 3.125 mg BIDWMEALS PO Last administered on 03/01/18at 09:51 ; Start 02/26/18 at 08:00 Cinacalcet (Sensipar) 30 mg QHS PO Last administered on 02/28/18at 22:54; Start 02/26/18 at 21:00 Clopidogrel Bisulfate (Plavix) 75 mg QHS PO Last administered on 02/28/18at 22: 54; Start 02/26/18 at 21:00 Polyethylene Glycol (miraLAX PACKET) 17 gm PRN DAILY PRN PO CONSTIPATION 1ST CHOICE; Start 02/26/18 at 09:00 Vitamin B Complex/ Vitamin C (Alayna-Oneil) 1 tab DAILY PO Last administered on at 09:04; Start 02/26/18 at 09:00 Sodium Chloride 1,000 ml @ 1,000 mls/hr Q1H PRN IV hypotension; Start 02/26/18 at 13:42; Stop 02/26/18 at 19:41; Status DC Sodium Chloride 1,000 ml @ 400 mls/hr Q2H30M PRN IV PATENCY; Start 02/26/18 at 13:42; Stop 02/27/18 at 01:42; Status DC Info (PHARMACY MONITORING -- do not chart) 1 each PRN DAILY PRN MC SEE COMMENTS ; Start 02/26/18 at 13:45; Stop 02/27/18 at 15:54; Status DC Lidocaine HCl (Xylocaine-Mpf 2% Vial) 0.5 ml 1X STAT ID Last administered on 02/26/18at 14:58; Start 02/26/18 at 14:46; Stop 02/26/18 at 14:50; Status DC Tramadol HCl (Ultram) 50 mg PRN Q6HRS PRN PO PAIN Last administered on at 11:56; Start 02/26/18 at 20:00 Sodium Chloride 1,000 ml @ 1,000 mls/hr Q1H PRN IV hypotension; Start 02/27/18 at 08:41; Stop 02/27/18 at 14:40; Status DC Sodium Chloride 1,000 ml @ 400 mls/hr Q2H30M PRN IV PATENCY; Start 02/27/18 at 08:41; Stop 02/27/18 at 20:40; Status DC Info (PHARMACY MONITORING -- do not chart) 1 each PRN DAILY PRN MC SEE COMMENTS ; Start 02/27/18 at 08:45; Status UNV Info (PHARMACY MONITORING -- do not chart) 1 each PRN DAILY PRN MC SEE COMMENTS ; Start 02/27/18 at 08:45 Lidocaine HCl (Xylocaine-Mpf 2% Vial) 2 ml 1X ONCE INJ ; Start 02/27/18 at 09: 00; Stop 02/27/18 at 09:01; Status DC Lidocaine HCl (Lidocaine Pf 2% Vial) 5 ml 1X ONCE IJ Last administered on 02/27at 09:00; Start 02/27/18 at 09:00; Stop 02/27/18 at 09:01; Status DC Alprazolam (Xanax) 0.25 mg PRN DAILY PRN PO ANXIETY / AGITATION; Start at 09:15 Atorvastatin Calcium (Lipitor) 10 mg QHS PO Last administered on 02/28/18at 22: 54; Start 02/27/18 at 21:00 Gabapentin (Neurontin) 300 mg QHS PO Last administered on 02/28/18at 22:54; Start 02/27/18 at 21:00 Sertraline HCl (Zoloft) 50 mg QHS PO Last administered on 02/28/18at 22:54; Start 02/27/18 at 21:00 Acetaminophen/ Hydrocodone Bitart (Lortab 10/325) 1 tab PRN Q6HRS PRN PO PAIN; Start 02/27/18 at 09:30; Stop 02/27/18 at 09:30; Status DC Vancomycin HCl 2 gm/Sodium Chloride 500 ml @ 250 mls/hr 1X ONCE IV ; Start at 09:15; Stop 02/27/18 at 11:14; Status UNV Vancomycin HCl (Vanco Per Pharmacy) 1 each PRN DAILY PRN MC SEE COMMENTS Last administered on 02/28/18at 15:13; Start 02/27/18 at 09:15 Acetaminophen (Tylenol) 650 mg PRN Q6HRS PRN PO FEVER; Start 02/27/18 at 09:15 Ondansetron HCl (Zofran) 4 mg PRN Q6HRS PRN IV NAUSEA/VOMITING Last administered on 03/01/18at 11:57; Start 02/27/18 at 09:15 Docusate Sodium (Colace) 100 mg PRN DAILY PRN PO CONSTIPATION; Start 02/27/18 at 09:15 Heparin Sodium (Porcine) (Heparin Sodium) 5,000 unit Q8HRS SQ ; Start 02/27/18 at 14:00 Acetaminophen/ Hydrocodone Bitart (Lortab 10/325) 1 tab PRN Q6HRS PRN PO PAIN Last administered on 03/01/18at 06:18; Start 02/27/18 at 09:30 Vancomycin HCl 1.75 gm/Sodium Chloride 500 ml @ 250 mls/hr 1X ONCE IV Last administered on 02/27/18at 18:40; Start 02/27/18 at 12:00; Stop 02/27/18 at 13:59 ; Status DC Piperacillin Sod/ Tazobactam Sod 2.25 gm/Sodium Chloride 50 ml @ 100 mls/hr Q8HRS IV Last administered on 03/01/18at 05:15; Start 02/27/18 at 15:00 Lactobacillus Rhamnosus (Culturelle) 1 cap BID PO Last administered on at 22:54; Start 02/28/18 at 09:00 Levothyroxine Sodium (Synthroid) 88 mcg DAILY06 PO Last administered on at 15:31; Start 02/28/18 at 14:30 Vancomycin HCl (Vancomycin Random Level) 1 each 1X ONCE MC ; Start 03/01/18 at 05:00; Stop 03/01/18 at 05:01; Status DC Vancomycin HCl 500 mg/Sodium Chloride 100 ml @ 100 mls/hr QTUTHSA IV ; Start 03/02/18 at 16:00 Active Scripts Active FENTANYL 25mcg/hr (Fentanyl) 1 Each Patch.td72 1 Patch TD Q3DAYS 30 Days Atorvastatin Calcium 10 Mg Tablet 10 Mg PO QHS 30 Days Carvedilol (Carvedilol) 3.125 Mg Tablet 3.125 Mg PO BIDWMEALS Reported Byron 10-325 Tablet (Acetaminophen/Hydrocodone Bitart) 1 Each Tablet 1 Tab PO Q4 -6HRS Polyethylene Glycol 3350 17 Gm Powd.pack 17 Gm PO PRN DAILY PRN Sertraline Hcl 50 Mg Tablet 50 Mg PO QHS Sensipar (Cinacalcet Hcl) 30 Mg Tablet 1 Tab PO QHS Alayna-Oneil Rx Tablet (Vit B Cmplx 3/Fa/Vit C/Biotin) 1 Each Tablet 1 Each PO DAILY Cranberry Plus Vitamin C Sftgl (Cranberry Conc/Ascorbic Acid) 1 Each Capsule 1 Each PO QHS Alprazolam 0.25 Mg Tablet 1 Tab PO DAILY PRN Plavix (Clopidogrel Bisulfate) 75 Mg Tablet 75 Mg PO QHS Calcium Acetate 667 Mg Tablet 2 Tab PO TIDWMEALS Tylenol Extra Strength (Acetaminophen) 500 Mg Tablet 500 Mg PO PRN Q12HRS PRN Gabapentin (Gabapentin) 300 Mg Capsule 300 Mg PO QHS Benadryl Allergy (Diphenhydramine Hcl) 25 Mg Tablet 25 Mg PO PRN not given in the hospital Aspir 81 (Aspirin) 81 Mg Tablet.dr 81 Mg PO QHS Vitals/I & O Vital Sign - Last 24 Hours 02/28/18 02/28/18 02/28/18 02/28/18 15:00 18:11 19:45 19:47 Temp 98.4 97.8 98.4 97.8 Pulse 61 61 Resp 18 18 B/P (MAP) 108/48 (68) 84/33 (50) Pulse Ox 100 97 O2 Delivery Room Air Room Air Room Air Room Air 02/28/18 02/28/18 02/28/18 03/01/18 20:34 22:55 23:32 00:12 Temp 97.7 97.7 Pulse 61 68 Resp 18 B/P (MAP) 104/49 (67) 111/57 (75) Pulse Ox 97 100 100 O2 Delivery Room Air Room Air Room Air 03/01/18 03/01/18 03/01/18 03/01/18 03:31 05:16 06:18 06:18 Temp 97.4 97.4 Pulse 69 Resp 19 B/P (MAP) 103/39 (60) Pulse Ox 97 97 97 97 O2 Delivery Room Air Room Air Room Air 03/01/18 03/01/18 03/01/18 03/01/18 07:00 07:25 09:51 11:00 Temp 97.5 97.5 97.5 97.5 Pulse 63 63 61 Resp 16 14 B/P (MAP) 114/50 (71) 114/50 99/43 (61) Pulse Ox 100 97 O2 Delivery Room Air Room Air Room Air 03/01/18 03/01/18 11:56 13:04 O2 Delivery Room Air Room Air Intake and Output 02/28/18 02/28/18 03/01/18 15:00 23:00 07:00 Intake Total 60 ml 120 ml 240 ml Output Total 250 ml Balance 60 ml 120 ml -10 ml KYLER RODRIGUEZ Mar 01, 2018 13:59
[2018-03-01 15:00] VITALS: BP 98/46
--- NOTE | 2018-03-01 15:23 | PDOC ---
Renal-Progress Notes Subjective Notes Notes NOTHING NEW History of Present Illness Hx of present illness STABLE Vitals Vitals Vital Signs Date Time Temp Pulse Resp B/P (MAP) Pulse Ox O2 Delivery O2 Flow Rate FiO2 03/01/18 15:04 Room Air 03/01/18 11:00 97.5 61 14 99/43 (61) 97 97.5 Weight Weight [ ] I.O. Intake and Output Intake and Output 03/01/18 07:00 Intake Total 420 ml Output Total 250 ml Balance 170 ml Intake Oral 420 ml Output Urine Total 250 ml # Voids 1 Labs Labs Laboratory Tests Test 03/01/18 07:42 White Blood Count 6.9 x10^3/uL (4.0-11.0) Red Blood Count 2.62 x10^6/uL (3.50-5.40) Hemoglobin 8.2 g/dL (12.0-15.5) Hematocrit 24.7 % (36.0-47.0) Mean Corpuscular Volume 94 fL (79-100) Mean Corpuscular Hemoglobin 31 pg (25-35) Mean Corpuscular Hemoglobin Concent 33 g/dL (31-37) Red Cell Distribution Width 21.4 % (11.5-14.5) Platelet Count 217 x10^3/uL (140-400) Neutrophils (%) (Auto) 61 % (31-73) Lymphocytes (%) (Auto) 25 % (24-48) Monocytes (%) (Auto) 11 % (0-9) Eosinophils (%) (Auto) 2 % (0-3) Basophils (%) (Auto) 1 % (0-3) Neutrophils # (Auto) 4.2 x10^3uL (1.8-7.7) Lymphocytes # (Auto) 1.7 x10^3/uL (1.0-4.8) Monocytes # (Auto) 0.7 x10^3/uL (0.0-1.1) Eosinophils # (Auto) 0.1 x10^3/uL (0.0-0.7) Basophils # (Auto) 0.1 x10^3/uL (0.0-0.2) Prothrombin Time 14.1 SEC (11.7-14.0) Prothromb Time International Ratio 1.1 (0.8-1.1) Activated Partial Thromboplast Time 38 SEC (24-38) Sodium Level 140 mmol/L (136-145) Potassium Level 4.2 mmol/L (3.5-5.1) Chloride Level 102 mmol/L (98-107) Carbon Dioxide Level 29 mmol/L (21-32) Anion Gap 9 (6-14) Blood Urea Nitrogen 22 mg/dL (7-20) Creatinine 4.9 mg/dL (0.6-1.0) Estimated GFR (Cockcroft-Gault) 8.8 Glucose Level 81 mg/dL (70-99) Calcium Level 7.6 mg/dL (8.5-10.1) Random Vancomycin Level 18.3 mcg/mL Micro Micro Microbiology 02/26/18 Anaerobic/Aerobic Culture, Resulted Pending 02/26/18 Anaerobic Culture Result 1 (LUZ), Resulted Pending 02/26/18 Aerobic Culture - Final, Resulted 02/26/18 Aerobic Culture Result 1 (LUZ) - Final, Resulted 02/26/18 Aerobic Culture Result 2 (LUZ) - Final, Resulted 02/26/18 Aerobic Culture Result 3 (LUZ) - Final, Resulted 02/26/18 Antimicrobic Susceptibility - Final, Resulted 02/26/18 Gram Stain - Final, Resulted 02/26/18 Gram Stain Result 1 (LUZ) - Final, Resulted 02/26/18 Gram Stain Result 2 (LUZ) - Final, Resulted Review of Systems Constitutional: yes: weakness, alert Ears/Nose/Throat: Yes: no symptom reported Eyes: Yes: no symptom reported Pulmonary: Yes no symptom reported Cardiovascular: Yes no symptom reported Gastrointestional: Yes: no symptom reported Genitourinary: Yes: no symptom reported Musculoskeletal: Yes: no symptom reported Skin: Yes no symptom reported Psychiatric/Neurological: Yes: no symptom reported Physical Exam General Appearance: no apparent distress Skin: warm Respiratory: bilateral CTA Heart: S1S2, RRR Abdomen: soft, bowel sounds present Genitourinary: bladder flat Extremities: pulses present Neurology: alert, oriented Musculoskeletal: Other Assessment Assessment IMP ESRD ANEMIA HTN UREMIA PAD LE WOUND NON COMPLIANCE PLAN PLAN FOR HD TOMORROW IF SHE AGREES CONT TO BE SUPPORTIVE NOTHING WILL HEAL WELL UNLESS SHE DIALYZES REGULARLY SUZY HOWARD MD Mar 01, 2018 15:23
[2018-03-01 19:00] VITALS: BP 115/51
[2018-03-01] MEDS: SERTRALINE 50 MG TABLET. PO SCH (21:59)
[2018-03-01] MEDS: ATORVASTATIN CALCIUM 10 MG TABLET. PO SCH (21:59)
[2018-03-01] MEDS: GABAPENTIN 300 MG CAPSULE. PO SCH (21:59)
[2018-03-01] MEDS: ALPRAZolam 0.25 MG TABLET PO PRN (21:59)
[2018-03-01] MEDS: CINACALCET HCL 30 MG TABLET PO SCH (21:59)
[2018-03-01] MEDS: CLOPIDOGREL BISULFATE 75 MG TABLET PO SCH (21:59)
[2018-03-01] MEDS: ASPIRIN ENTERIC COATED 81 MG TABLET.DR. PO SCH (22:00)
[2018-03-01 23:00] VITALS: BP 118/51
[2018-03-02] MEDS: PIPERACILLIN/TAZOBACTAM 2.25 GM in IV NORMAL SALINE 50ML 50 ML IV SCH ×4 (01:24→21:18)
[2018-03-02] MEDS: traMADol 50 MG TABLET PO PRN ×4 (01:58→23:30)
[2018-03-02 03:00] VITALS: BP 101/43
[2018-03-02 04:11] LABS: BASO # 0.1 x10^3/uL (0.0-0.2); BASO % 1 % (0-3); EOS # 0.2 x10^3/uL (0.0-0.7); EOS % 3 % (0-3); HEMATOCRIT 22.1 % (36.0-47.0); HEMOGLOBIN 7.2 g/dL (12.0-15.5); LYMPH # 1.6 x10^3/uL (1.0-4.8); LYMPH % 21 % (24-48); MEAN CORPUSCULAR HEMOGLOBIN 31 pg (25-35); MEAN CORPUSCULAR HGB CONC 33 g/dL (31-37); MEAN CORPUSCULAR VOLUME 94 fL (79-100); MONO # 0.7 x10^3/uL (0.0-1.1); MONO % 10 % (0-9); NEUT # 4.7 x10^3uL (1.8-7.7); NEUT % 65 % (31-73); PLATELET COUNT 194 x10^3/uL (140-400); RED BLOOD COUNT 2.35 x10^6/uL (3.50-5.40); RED CELL DISTRIBUTION WIDTH 21.8 % (11.5-14.5); WHITE BLOOD COUNT 7.3 x10^3/uL (4.0-11.0)
[2018-03-02 04:37] LABS: CREATININE 5.1 mg/dL (0.6-1.0); GFR 8.4; POTASSIUM 4.4 mmol/L (3.5-5.1)
[2018-03-02] MEDS: HEPARIN for SUB-Q USE 5,000 UNIT/ML VIAL. SQ SCH ×3 (04:51→21:19)
[2018-03-02] MEDS: LEVOTHYROXINE 88 MCG TABLET PO SCH (05:08)
[2018-03-02] MEDS: HYDROcodone/APAP 10/325 1 TAB TABLET PO PRN ×3 (05:08→21:19)
--- NOTE | 2018-03-02 07:49 | PDOC ---
PROGRESS NOTES Chief Complaint Chief Complaint ESRD on HD TuThSa rt leg unhealing wound s/p wound vac Hyperkalemia rt hand weakness, need to rule out stroke Generalized weakness Anemia chronic, with ESRD NONCOMPLIANCE, REFUSES HD SOMETIMES Tobacco abuse disorder fluid overload severe protein-caloric malnutrition DIABETES HTN PPMICD PAD Atherosclerosis with ulceration of the right lower extremity--the patient would like to proceed with medical therapy and attempted limb salvage. pain medication overuse, leading to excess sedation and memory loss plan: vascular , good candidate for sx months ago.angiogram, defer to vascular id consult added vanco for now, wound c+ gram + cocci cont some home meds, bp lower side, on coreg low dose on asa, lipitor., will get MRI To rule out stroke, neuro consult resume pain meds, add lortab 10mg q6h prn, cont tramadol. hold fentanyl patch fu with renal, need HD, agrees wit dialysis plan for now PTOT dvt ppx History of Present Illness History of Present Illness ROS: no fever, chills, sob or chest pain c/o rt hand weakness, cannot hold glass, strength 4/5, left side 5/5 RLE Ulcer looks bad, with erythema around, and yellow ,foul smell discharge at ulcer, obviously infected. agree HD for now takes lortab 10mg q4h at home , c/o rt leg pain - agrees she takes too much lortab, wants to taper and try other means of pain relief She wants to eat, refused supplements in the past. T3 and T4 returned low, stated on 88mcg synthroid. Wound culture back positive, however wound vac has been placed back on wound. The culture is MRSA - resistant to clindamycin and tetracycline. Seen by ID plan: wound vac removal and ?replacement Antibiotics per ID - vanco ok for now Discharge planning, will need care for wound, etc Vitals Vitals Vital Signs Date Time Temp Pulse Resp B/P (MAP) Pulse Ox O2 Delivery O2 Flow Rate FiO2 03/02/18 06:08 18 100 Room Air 2.0 03/02/18 03:00 97.5 60 101/43 (62) 97.5 Physical Exam Physical Exam GENERAL: Sitting in the chair, tired appearance, NAD HEENT: Pupils equally round. Normal conjunctivae. Oral cavity pink and moist. NECK: Supple. LUNGS: Clear to auscultation. HEART: S1 and S2. AICD. ABDOMEN: Soft and nontender. Bowel sounds present. EXTREMITIES: Unremarkable except right lower extremity 1+ edema. Large deep ulcer, medial right lower extremity with foul odor and necrotic tissue. Also has a smaller necrotic ulcer lateral ankle as well. DP pulse difficult to palpate. SKIN: Warm without rash. LUE-AV fistula NEUROLOGICAL: Alert and oriented x 3. General: Alert, Oriented X3, Cooperative, mild distress Heart: Regular rate, Normal S1, Normal S2 Lungs: Clear, Other Abdomen: Normal bowel sounds, Soft, No tenderness Extremities: No cyanosis, Other (right ankle wound bandaged deep soft tissue infection) Labs LABS Laboratory Tests Test 03/02/18 03:20 White Blood Count 7.3 x10^3/uL (4.0-11.0) Red Blood Count 2.35 x10^6/uL (3.50-5.40) Hemoglobin 7.2 g/dL (12.0-15.5) Hematocrit 22.1 % (36.0-47.0) Mean Corpuscular Volume 94 fL (79-100) Mean Corpuscular Hemoglobin 31 pg (25-35) Mean Corpuscular Hemoglobin Concent 33 g/dL (31-37) Red Cell Distribution Width 21.8 % (11.5-14.5) Platelet Count 194 x10^3/uL (140-400) Neutrophils (%) (Auto) 65 % (31-73) Lymphocytes (%) (Auto) 21 % (24-48) Monocytes (%) (Auto) 10 % (0-9) Eosinophils (%) (Auto) 3 % (0-3) Basophils (%) (Auto) 1 % (0-3) Neutrophils # (Auto) 4.7 x10^3uL (1.8-7.7) Lymphocytes # (Auto) 1.6 x10^3/uL (1.0-4.8) Monocytes # (Auto) 0.7 x10^3/uL (0.0-1.1) Eosinophils # (Auto) 0.2 x10^3/uL (0.0-0.7) Basophils # (Auto) 0.1 x10^3/uL (0.0-0.2) Sodium Level 141 mmol/L (136-145) Potassium Level 4.4 mmol/L (3.5-5.1) Chloride Level 103 mmol/L (98-107) Carbon Dioxide Level 26 mmol/L (21-32) Anion Gap 12 (6-14) Blood Urea Nitrogen 24 mg/dL (7-20) Creatinine 5.1 mg/dL (0.6-1.0) Estimated GFR (Cockcroft-Gault) 8.4 Glucose Level 113 mg/dL (70-99) Calcium Level 7.0 mg/dL (8.5-10.1) Assessment and Plan Assessmemt and Plan Problems Medical Problems: (1) Anemia Status: Acute (2) Generalized weakness Status: Acute (3) Hyperkalemia Status: Acute Comment Review of Relevant I have reviewed the following items ashley (where applicable) has been applied. Labs Laboratory Tests Test 02/28/18 09:23 03/01/18 07:42 03/02/18 03:20 White Blood Count 8.4 x10^3/uL (4.0-11.0) 6.9 x10^3/uL (4.0-11.0) 7.3 x10^3/uL (4.0-11.0) Red Blood Count 2.40 x10^6/uL (3.50-5.40) 2.62 x10^6/uL (3.50-5.40) 2.35 x10^6/uL (3.50-5.40) Hemoglobin 7.5 g/dL (12.0-15.5) 8.2 g/dL (12.0-15.5) 7.2 g/dL (12.0-15.5) Hematocrit 22.5 % (36.0-47.0) 24.7 % (36.0-47.0) 22.1 % (36.0-47.0) Mean Corpuscular Volume 94 fL (79-100) 94 fL (79-100) 94 fL (79-100) Mean Corpuscular Hemoglobin 31 pg (25-35) 31 pg (25-35) 31 pg (25-35) Mean Corpuscular Hemoglobin Concent 33 g/dL (31-37) 33 g/dL (31-37) 33 g/dL (31-37) Red Cell Distribution Width 22.1 % (11.5-14.5) 21.4 % (11.5-14.5) 21.8 % (11.5-14.5) Platelet Count 205 x10^3/uL (140-400) 217 x10^3/uL (140-400) 194 x10^3/uL (140-400) Neutrophils (%) (Auto) 77 % (31-73) 61 % (31-73) 65 % (31-73) Lymphocytes (%) (Auto) 13 % (24-48) 25 % (24-48) 21 % (24-48) Monocytes (%) (Auto) 9 % (0-9) 11 % (0-9) 10 % (0-9) Eosinophils (%) (Auto) 1 % (0-3) 2 % (0-3) 3 % (0-3) Basophils (%) (Auto) 1 % (0-3) 1 % (0-3) 1 % (0-3) Neutrophils # (Auto) 6.4 x10^3uL (1.8-7.7) 4.2 x10^3uL (1.8-7.7) 4.7 x10^3uL (1.8-7.7) Lymphocytes # (Auto) 1.1 x10^3/uL (1.0-4.8) 1.7 x10^3/uL (1.0-4.8) 1.6 x10^3/uL (1.0-4.8) Monocytes # (Auto) 0.7 x10^3/uL (0.0-1.1) 0.7 x10^3/uL (0.0-1.1) 0.7 x10^3/uL (0.0-1.1) Eosinophils # (Auto) 0.1 x10^3/uL (0.0-0.7) 0.1 x10^3/uL (0.0-0.7) 0.2 x10^3/uL (0.0-0.7) Basophils # (Auto) 0.1 x10^3/uL (0.0-0.2) 0.1 x10^3/uL (0.0-0.2) 0.1 x10^3/uL (0.0-0.2) Sodium Level 141 mmol/L (136-145) 140 mmol/L (136-145) 141 mmol/L (136-145) Potassium Level 4.2 mmol/L (3.5-5.1) 4.2 mmol/L (3.5-5.1) 4.4 mmol/L (3.5-5.1) Chloride Level 102 mmol/L (98-107) 102 mmol/L (98-107) 103 mmol/L (98-107) Carbon Dioxide Level 30 mmol/L (21-32) 29 mmol/L (21-32) 26 mmol/L (21-32) Anion Gap 9 (6-14) 9 (6-14) 12 (6-14) Blood Urea Nitrogen 19 mg/dL (7-20) 22 mg/dL (7-20) 24 mg/dL (7-20) Creatinine 4.2 mg/dL (0.6-1.0) 4.9 mg/dL (0.6-1.0) 5.1 mg/dL (0.6-1.0) Estimated GFR (Cockcroft-Gault) 10.6 8.8 8.4 Glucose Level 122 mg/dL (70-99) 81 mg/dL (70-99) 113 mg/dL (70-99) Calcium Level 7.6 mg/dL (8.5-10.1) 7.6 mg/dL (8.5-10.1) 7.0 mg/dL (8.5-10.1) Free Thyroxine 0.54 ng/dL (0.76-1.46) Free Triiodothyronine (T3) pg/mL 0.99 pg/mL (2.18-3.98) Prothrombin Time 14.1 SEC (11.7-14.0) Prothromb Time International Ratio 1.1 (0.8-1.1) Activated Partial Thromboplast Time 38 SEC (24-38) Creatine Kinase 56 U/L (26-192) Random Vancomycin Level 18.3 mcg/mL Laboratory Tests Test 03/02/18 03:20 White Blood Count 7.3 x10^3/uL (4.0-11.0) Red Blood Count 2.35 x10^6/uL (3.50-5.40) Hemoglobin 7.2 g/dL (12.0-15.5) Hematocrit 22.1 % (36.0-47.0) Mean Corpuscular Volume 94 fL (79-100) Mean Corpuscular Hemoglobin 31 pg (25-35) Mean Corpuscular Hemoglobin Concent 33 g/dL (31-37) Red Cell Distribution Width 21.8 % (11.5-14.5) Platelet Count 194 x10^3/uL (140-400) Neutrophils (%) (Auto) 65 % (31-73) Lymphocytes (%) (Auto) 21 % (24-48) Monocytes (%) (Auto) 10 % (0-9) Eosinophils (%) (Auto) 3 % (0-3) Basophils (%) (Auto) 1 % (0-3) Neutrophils # (Auto) 4.7 x10^3uL (1.8-7.7) Lymphocytes # (Auto) 1.6 x10^3/uL (1.0-4.8) Monocytes # (Auto) 0.7 x10^3/uL (0.0-1.1) Eosinophils # (Auto) 0.2 x10^3/uL (0.0-0.7) Basophils # (Auto) 0.1 x10^3/uL (0.0-0.2) Sodium Level 141 mmol/L (136-145) Potassium Level 4.4 mmol/L (3.5-5.1) Chloride Level 103 mmol/L (98-107) Carbon Dioxide Level 26 mmol/L (21-32) Anion Gap 12 (6-14) Blood Urea Nitrogen 24 mg/dL (7-20) Creatinine 5.1 mg/dL (0.6-1.0) Estimated GFR (Cockcroft-Gault) 8.4 Glucose Level 113 mg/dL (70-99) Calcium Level 7.0 mg/dL (8.5-10.1) Microbiology 02/26/18 Anaerobic/Aerobic Culture, Resulted Pending 02/26/18 Anaerobic Culture Result 1 (LUZ), Resulted Pending 02/26/18 Aerobic Culture - Final, Resulted 02/26/18 Aerobic Culture Result 1 (LUZ) - Final, Resulted 02/26/18 Aerobic Culture Result 2 (LUZ) - Final, Resulted 02/26/18 Aerobic Culture Result 3 (LUZ) - Final, Resulted 02/26/18 Antimicrobic Susceptibility - Final, Resulted 02/26/18 Gram Stain - Final, Resulted 02/26/18 Gram Stain Result 1 (LUZ) - Final, Resulted 02/26/18 Gram Stain Result 2 (LUZ) - Final, Resulted Medications Current Medications Sodium Bicarbonate (Sodium Bicarb Adult 8.4% Syr) 50 meq 1X ONCE IV Last administered on 02/25/18at 19:16; Start 02/25/18 at 19:00; Stop 02/25/18 at 19:01 ; Status DC Calcium Gluconate (Calcium Gluconate) 1,000 mg 1X ONCE IVP Last administered on 02/25/18at 19:07; Start 02/25/18 at 19:00; Stop 02/25/18 at 19:01; Status DC Dextrose (Dextrose 50%-Water Syringe) 25 gm 1X ONCE IV Last administered on at 19:14; Start 02/25/18 at 19:00; Stop 02/25/18 at 19:01; Status DC Insulin Human Regular (HumuLIN R VIAL) 10 unit 1X ONCE IV Last administered on 02/25/18at 19:13; Start 02/25/18 at 19:00; Stop 02/25/18 at 19:01; Status DC Albuterol Sulfate (Ventolin Neb Soln) 10 mg 1X ONCE CONT NEB ; Start 02/25/18 at 19:00; Stop 02/25/18 at 19:01; Status DC Ondansetron HCl (Zofran) 4 mg PRN Q8HRS PRN IV NAUSEA/VOMITING; Start 02/25/18 at 21:00; Stop 02/26/18 at 20:59; Status DC Aspirin (Ecotrin) 81 mg QHS PO Last administered on 03/01/18at 22:00; Start at 21:00 Carvedilol (Coreg) 3.125 mg BIDWMEALS PO Last administered on 03/01/18at 17:47 ; Start 02/26/18 at 08:00 Cinacalcet (Sensipar) 30 mg QHS PO Last administered on 03/01/18at 21:59; Start 02/26/18 at 21:00 Clopidogrel Bisulfate (Plavix) 75 mg QHS PO Last administered on 03/01/18at 21: 59; Start 02/26/18 at 21:00 Polyethylene Glycol (miraLAX PACKET) 17 gm PRN DAILY PRN PO CONSTIPATION 1ST CHOICE; Start 02/26/18 at 09:00 Vitamin B Complex/ Vitamin C (Alayna-Oneil) 1 tab DAILY PO Last administered on at 09:04; Start 02/26/18 at 09:00 Sodium Chloride 1,000 ml @ 1,000 mls/hr Q1H PRN IV hypotension; Start 02/26/18 at 13:42; Stop 02/26/18 at 19:41; Status DC Sodium Chloride 1,000 ml @ 400 mls/hr Q2H30M PRN IV PATENCY; Start 02/26/18 at 13:42; Stop 02/27/18 at 01:42; Status DC Info (PHARMACY MONITORING -- do not chart) 1 each PRN DAILY PRN MC SEE COMMENTS ; Start 02/26/18 at 13:45; Stop 02/27/18 at 15:54; Status DC Lidocaine HCl (Xylocaine-Mpf 2% Vial) 0.5 ml 1X STAT ID Last administered on 02/26/18at 14:58; Start 02/26/18 at 14:46; Stop 02/26/18 at 14:50; Status DC Tramadol HCl (Ultram) 50 mg PRN Q6HRS PRN PO MILD PAIN Last administered on 02/07at 01:58; Start 02/26/18 at 20:00 Sodium Chloride 1,000 ml @ 1,000 mls/hr Q1H PRN IV hypotension; Start 02/27/18 at 08:41; Stop 02/27/18 at 14:40; Status DC Sodium Chloride 1,000 ml @ 400 mls/hr Q2H30M PRN IV PATENCY; Start 02/27/18 at 08:41; Stop 02/27/18 at 20:40; Status DC Info (PHARMACY MONITORING -- do not chart) 1 each PRN DAILY PRN MC SEE COMMENTS ; Start 02/27/18 at 08:45; Status UNV Info (PHARMACY MONITORING -- do not chart) 1 each PRN DAILY PRN MC SEE COMMENTS ; Start 02/27/18 at 08:45 Lidocaine HCl (Xylocaine-Mpf 2% Vial) 2 ml 1X ONCE INJ ; Start 02/27/18 at 09: 00; Stop 02/27/18 at 09:01; Status DC Lidocaine HCl (Lidocaine Pf 2% Vial) 5 ml 1X ONCE IJ Last administered on 02/27at 09:00; Start 02/27/18 at 09:00; Stop 02/27/18 at 09:01; Status DC Alprazolam (Xanax) 0.25 mg PRN DAILY PRN PO ANXIETY / AGITATION Last administered on 03/01/18at 21:59; Start 02/27/18 at 09:15 Atorvastatin Calcium (Lipitor) 10 mg QHS PO Last administered on 03/01/18at 21: 59; Start 02/27/18 at 21:00 Gabapentin (Neurontin) 300 mg QHS PO Last administered on 03/01/18at 21:59; Start 02/27/18 at 21:00 Sertraline HCl (Zoloft) 50 mg QHS PO Last administered on 03/01/18at 21:59; Start 02/27/18 at 21:00 Acetaminophen/ Hydrocodone Bitart (Lortab 10/325) 1 tab PRN Q6HRS PRN PO PAIN; Start 02/27/18 at 09:30; Stop 02/27/18 at 09:30; Status DC Vancomycin HCl 2 gm/Sodium Chloride 500 ml @ 250 mls/hr 1X ONCE IV ; Start at 09:15; Stop 02/27/18 at 11:14; Status UNV Vancomycin HCl (Vanco Per Pharmacy) 1 each PRN DAILY PRN MC SEE COMMENTS Last administered on 03/01/18at 13:42; Start 02/27/18 at 09:15 Acetaminophen (Tylenol) 650 mg PRN Q6HRS PRN PO FEVER; Start 02/27/18 at 09:15 Ondansetron HCl (Zofran) 4 mg PRN Q6HRS PRN IV NAUSEA/VOMITING Last administered on 03/01/18at 11:57; Start 02/27/18 at 09:15 Docusate Sodium (Colace) 100 mg PRN DAILY PRN PO hard stools; Start 02/27/18 at 09:15 Heparin Sodium (Porcine) (Heparin Sodium) 5,000 unit Q8HRS SQ ; Start 02/27/18 at 14:00 Acetaminophen/ Hydrocodone Bitart (Lortab 10/325) 1 tab PRN Q6HRS PRN PO MODERATE PAIN Last administered on 03/02/18at 05:08; Start 02/27/18 at 09:30 Vancomycin HCl 1.75 gm/Sodium Chloride 500 ml @ 250 mls/hr 1X ONCE IV Last administered on 02/27/18at 18:40; Start 02/27/18 at 12:00; Stop 02/27/18 at 13:59 ; Status DC Piperacillin Sod/ Tazobactam Sod 2.25 gm/Sodium Chloride 50 ml @ 100 mls/hr Q8HRS IV Last administered on 03/02/18at 05:08; Start 02/27/18 at 15:00 Lactobacillus Rhamnosus (Culturelle) 1 cap BID PO Last administered on at 21:59; Start 02/28/18 at 09:00 Levothyroxine Sodium (Synthroid) 88 mcg DAILY06 PO Last administered on at 05:08; Start 02/28/18 at 14:30 Vancomycin HCl (Vancomycin Random Level) 1 each 1X ONCE MC ; Start 03/01/18 at 05:00; Stop 03/01/18 at 05:01; Status DC Vancomycin HCl 500 mg/Sodium Chloride 100 ml @ 100 mls/hr QTUTHSA IV ; Start 03/02/18 at 16:00 Active Scripts Active FENTANYL 25mcg/hr (Fentanyl) 1 Each Patch.td72 1 Patch TD Q3DAYS 30 Days Atorvastatin Calcium 10 Mg Tablet 10 Mg PO QHS 30 Days Carvedilol (Carvedilol) 3.125 Mg Tablet 3.125 Mg PO BIDWMEALS Reported [place] 10-325 Tablet (Acetaminophen/Hydrocodone Bitart) 1 Each Tablet 1 Tab PO Q4 -6HRS Polyethylene Glycol 3350 17 Gm Powd.pack 17 Gm PO PRN DAILY PRN Sertraline Hcl 50 Mg Tablet 50 Mg PO QHS Sensipar (Cinacalcet Hcl) 30 Mg Tablet 1 Tab PO QHS Alayna-Oneil Rx Tablet (Vit B Cmplx 3/Fa/Vit C/Biotin) 1 Each Tablet 1 Each PO DAILY Cranberry Plus Vitamin C Sftgl (Cranberry Conc/Ascorbic Acid) 1 Each Capsule 1 Each PO QHS Alprazolam 0.25 Mg Tablet 1 Tab PO DAILY PRN Plavix (Clopidogrel Bisulfate) 75 Mg Tablet 75 Mg PO QHS Calcium Acetate 667 Mg Tablet 2 Tab PO TIDWMEALS Tylenol Extra Strength (Acetaminophen) 500 Mg Tablet 500 Mg PO PRN Q12HRS PRN Gabapentin (Gabapentin) 300 Mg Capsule 300 Mg PO QHS Benadryl Allergy (Diphenhydramine Hcl) 25 Mg Tablet 25 Mg PO PRN not given in the hospital Aspir 81 (Aspirin) 81 Mg Tablet.dr 81 Mg PO QHS Vitals/I & O Vital Sign - Last 24 Hours 03/01/18 03/01/18 03/01/18 03/01/18 08:00 09:51 11:00 11:56 Temp 97.5 97.5 Pulse 63 61 Resp 14 B/P (MAP) 114/50 99/43 (61) Pulse Ox 97 O2 Delivery Room Air Room Air Room Air 03/01/18 03/01/18 03/01/18 03/01/18 15:00 15:04 17:47 17:50 Temp 98.0 98.0 Pulse 78 78 Resp 16 B/P (MAP) 98/46 (63) 98/46 Pulse Ox 99 O2 Delivery Room Air Room Air Room Air 03/01/18 03/01/18 03/01/18 03/01/18 18:57 19:00 20:00 21:59 Temp 97.3 97.3 Pulse 63 Resp 18 18 B/P (MAP) 115/51 (72) Pulse Ox 100 100 O2 Delivery Room Air Room Air Room Air Room Air 03/01/18 03/02/18 03/02/18 03/02/18 23:00 01:58 03:00 05:08 Temp 97.6 97.5 97.6 97.5 Pulse 64 60 Resp 18 18 18 18 B/P (MAP) 118/51 (73) 101/43 (62) Pulse Ox 100 100 100 100 O2 Delivery Room Air Room Air Room Air Room Air 03/02/18 06:08 Resp 18 Pulse Ox 100 O2 Delivery Room Air O2 Flow Rate 2.0 Intake and Output 03/01/18 03/01/18 03/02/18 15:00 23:00 07:00 Intake Total 120 ml 0 ml 530 ml Output Total 250 ml Balance 120 ml -250 ml 530 ml SHARRON SMITH MD Mar 02, 2018 07:49
[2018-03-02 07:58] VITALS: BP 104/46
[2018-03-02] MEDS: CARVEDILOL 3.125 MG TABLET. PO SCH ×2 (08:00→21:19)
[2018-03-02] MEDS ORDERED: IV NORMAL SALINE 1000ML BAG 1,000 ML IV PRN ×4 (08:28→16:15)
--- NOTE | 2018-03-02 08:28 | RAD ---
CHEST AP ONLY 12:31 AM Clinical indications: 2nd attempt; picc line placement Impression: Right upper extremity PICC line tip is seen coiled within the right brachiocephalic vein with the tip directed up towards the right internal jugular or external jugular vein. Small bilateral pleural effusions are seen. Bilateral nodular lung infiltrates are seen within the midlung zones. Electronically signed by: Silvestre Mcgill MD (03/02/2018 8:24 AM) [facility]
[2018-03-02] MEDS ORDERED: ALBUMIN HUMAN 25% 200 ML IV PRN (08:30)
[2018-03-02] MEDS ORDERED: diphenhydrAMINE 50 MG/ML VIAL IV PRN ×2 (08:30)
[2018-03-02] MEDS ORDERED: DIALYSIS PATIENT. MC PRN ×4 (08:30→16:15)
[2018-03-02] MEDS: FOLIC/VIT B COMP W-C (RENAL) TABLET. PO SCH (08:36)
[2018-03-02] MEDS: LACTOBACILLUS RHAMNOSUS GG 1 CAPSULE. PO SCH ×2 (08:36→21:19)
--- NOTE | 2018-03-02 08:37 | RAD ---
CHEST AP ONLY Clinical indications: 1st attempt; picc line placement COMPARISON: February 25, 2018. FINDINGS/ IMPRESSION: Right upper extremity PICC line has been placed and the tip is seen reflected upon the catheter itself within the right subclavian vein and axillary vein. The tip is seen within the medial right axillary region. Small bilateral pleural effusions are evident. This is new on the left side with an increase in left lung base infiltrate or atelectasis. Small nodular lung infiltrate is seen within the lateral left midlung zone. There is a small right-sided pleural effusion which has improved slightly from the previous study. There has been improved aeration of the right lung base with improvement of right lung base atelectasis or infiltrate. Skin fold projects over the right lateral chest. No pneumothorax is seen. The heart size is prominent but stable. Pacemaker is again evident. A left axillary and left upper extremity vascular stent is present. Electronically signed by: Silvestre Mcgill MD (03/02/2018 8:33 AM) [facility]
--- NOTE | 2018-03-02 10:48 | PDOC ---
Infectious Disease Note Subjective: Subjective Feeling alright No F/C/S/pain/N/V/D/SOA ROS: ROS Negative except for above. Vital Signs: Vital Signs Vital Signs Date Time Temp Pulse Resp B/P (MAP) Pulse Ox O2 Delivery O2 Flow Rate FiO2 03/02/18 08:44 95 Room Air 2.0 03/02/18 07:58 98.4 61 18 104/46 (65) 98.4 Physical Exam: PHYSICAL EXAM GENERAL: Sitting in the chair, tired appearance, NAD HEENT: Pupils equally round. Normal conjunctivae. Oral cavity pink and moist. NECK: Supple. LUNGS: Clear to auscultation. HEART: S1 and S2. AICD. ABDOMEN: Soft and nontender. Bowel sounds present. EXTREMITIES: Unremarkable except right lower extremity 1+ edema. Large deep ulcer, medial right lower extremity with foul odor and necrotic tissue. Also has a smaller necrotic ulcer lateral ankle as well. DP pulse difficult to palpate. SKIN: Warm without rash. LUE-AV fistula NEUROLOGICAL: Alert and oriented x 3. Medications: Inpatient Meds: Current Medications Medications (Trade) Dose Ordered Sig/Liza Start Time Stop Time Status Last Admin Dose Admin Acetaminophen (Tylenol) 650 mg PRN Q6HRS PRN 02/27/18 09:15 Acetaminophen/ Hydrocodone Bitart (Lortab 10/325) 1 tab PRN Q6HRS PRN 02/27/18 09:30 03/02/18 05:08 1 TAB Albumin Human 200 ml @ 200 mls/hr 1X PRN PRN 03/02/18 08:30 03/02/18 14:29 Albuterol Sulfate (Ventolin Neb Soln) 10 mg 1X ONCE 02/25/18 19:00 02/25/18 19:01 DC Alprazolam (Xanax) 0.25 mg PRN DAILY PRN 02/27/18 09:15 03/01/18 21:59 0.25 MG Aspirin (Ecotrin) 81 mg QHS 02/26/18 21:00 03/01/18 22:00 81 MG Atorvastatin Calcium (Lipitor) 10 mg QHS 02/27/18 21:00 03/01/18 21:59 10 MG Calcium Gluconate (Calcium Gluconate) 1,000 mg 1X ONCE 02/25/18 19:00 02/25/18 19:01 DC 02/25/18 19:07 1,000 MG Carvedilol (Coreg) 3.125 mg BIDWMEALS 02/26/18 08:00 03/01/18 17:47 3.125 MG Cinacalcet (Sensipar) 30 mg QHS 02/26/18 21:00 03/01/18 21:59 30 MG Clopidogrel Bisulfate (Plavix) 75 mg QHS 02/26/18 21:00 03/01/18 21:59 75 MG Dextrose (Dextrose 50%-Water Syringe) 25 gm 1X ONCE 02/25/18 19:00 02/25/18 19:01 DC 02/25/18 19:14 25 GM Diphenhydramine HCl (Benadryl) 25 mg 1X PRN PRN 03/02/18 08:30 03/03/18 08:29 Docusate Sodium (Colace) 100 mg PRN DAILY PRN 02/27/18 09:15 Gabapentin (Neurontin) 300 mg QHS 02/27/18 21:00 03/01/18 21:59 300 MG Heparin Sodium (Porcine) (Heparin Sodium) 5,000 unit Q8HRS 02/27/18 14:00 Info (PHARMACY MONITORING -- do not chart) 1 each PRN DAILY PRN 03/02/18 08:30 Insulin Human Regular (HumuLIN R VIAL) 10 unit 1X ONCE 02/25/18 19:00 02/25/18 19:01 DC 02/25/18 19:13 10 UNIT Lactobacillus Rhamnosus (Culturelle) 1 cap BID 02/28/18 09:00 03/02/18 08:36 1 CAP Levothyroxine Sodium (Synthroid) 88 mcg DAILY06 02/28/18 14:30 03/02/18 05:08 88 MCG Lidocaine HCl (Lidocaine Pf 2% Vial) 5 ml 1X ONCE 02/27/18 09:00 02/27/18 09:01 DC 02/27/18 09:00 5 ML Lidocaine HCl (Xylocaine-Mpf 2% Vial) 2 ml 1X ONCE 02/27/18 09:00 02/27/18 09:01 DC Ondansetron HCl (Zofran) 4 mg PRN Q6HRS PRN 02/27/18 09:15 03/01/18 11:57 4 MG Piperacillin Sod/ Tazobactam Sod 2.25 gm/Sodium Chloride 50 ml @ 100 mls/hr Q8HRS 02/27/18 15:00 03/02/18 05:08 100 MLS/HR Polyethylene Glycol (miraLAX PACKET) 17 gm PRN DAILY PRN 02/26/18 09:00 Sertraline HCl (Zoloft) 50 mg QHS 02/27/18 21:00 03/01/18 21:59 50 MG Sodium Bicarbonate (Sodium Bicarb Adult 8.4% Syr) 50 meq 1X ONCE 02/25/18 19:00 02/25/18 19:01 DC 02/25/18 19:16 50 MEQ Sodium Chloride 1,000 ml @ 400 mls/hr Q2H30M PRN 03/02/18 08:28 03/02/18 20:27 Tramadol HCl (Ultram) 50 mg PRN Q6HRS PRN 02/26/18 20:00 03/02/18 08:44 50 MG Vancomycin HCl (Vanco Per Pharmacy) 1 each PRN DAILY PRN 02/27/18 09:15 03/01/18 13:42 1 EACH Vancomycin HCl (Vancomycin Random Level) 1 each 1X ONCE 03/01/18 05:00 03/01/18 05:01 DC Vancomycin HCl 1.75 gm/Sodium Chloride 500 ml @ 250 mls/hr 1X ONCE 02/27/18 12:00 02/27/18 13:59 DC 02/27/18 18:40 250 MLS/HR Vancomycin HCl 500 mg/Sodium Chloride 100 ml @ 100 mls/hr QTUTHSA 03/02/18 16:00 Vancomycin HCl 2 gm/Sodium Chloride 500 ml @ 250 mls/hr 1X ONCE 02/27/18 09:15 02/27/18 11:14 UNV Vitamin B Complex/ Vitamin C (Alayna-Oneil) 1 tab DAILY 02/26/18 09:00 03/02/18 08:36 1 TAB Labs: Lab Laboratory Tests Test 03/02/18 03:20 White Blood Count 7.3 x10^3/uL (4.0-11.0) Red Blood Count 2.35 x10^6/uL (3.50-5.40) Hemoglobin 7.2 g/dL (12.0-15.5) Hematocrit 22.1 % (36.0-47.0) Mean Corpuscular Volume 94 fL (79-100) Mean Corpuscular Hemoglobin 31 pg (25-35) Mean Corpuscular Hemoglobin Concent 33 g/dL (31-37) Red Cell Distribution Width 21.8 % (11.5-14.5) Platelet Count 194 x10^3/uL (140-400) Neutrophils (%) (Auto) 65 % (31-73) Lymphocytes (%) (Auto) 21 % (24-48) Monocytes (%) (Auto) 10 % (0-9) Eosinophils (%) (Auto) 3 % (0-3) Basophils (%) (Auto) 1 % (0-3) Neutrophils # (Auto) 4.7 x10^3uL (1.8-7.7) Lymphocytes # (Auto) 1.6 x10^3/uL (1.0-4.8) Monocytes # (Auto) 0.7 x10^3/uL (0.0-1.1) Eosinophils # (Auto) 0.2 x10^3/uL (0.0-0.7) Basophils # (Auto) 0.1 x10^3/uL (0.0-0.2) Sodium Level 141 mmol/L (136-145) Potassium Level 4.4 mmol/L (3.5-5.1) Chloride Level 103 mmol/L (98-107) Carbon Dioxide Level 26 mmol/L (21-32) Anion Gap 12 (6-14) Blood Urea Nitrogen 24 mg/dL (7-20) Creatinine 5.1 mg/dL (0.6-1.0) Estimated GFR (Cockcroft-Gault) 8.4 Glucose Level 113 mg/dL (70-99) Calcium Level 7.0 mg/dL (8.5-10.1) Hepatitis B Surface Antigen Nonreactive (Nonreactive) Hepatitis B Surface Antibody Reactive Micro RUN DATE: 03/01/18 PAGE 1 RUN TIME: 1420 [facility] [address] [place] [address] Saleem Walsh M.D., [employer] Supervisor PATIENT: DIANE CARLSON ACCT: [id number] LOC: [address] [place] [address] U : [id number] AGE/SX: 68/F ROOM: [facility] REG : 02/25/[address]: ROLAND ELLIOTT MD : 1950 BED: 1 DIS : STATUS: ADM IN TLOC: SPEC #: [id number] AMADO: 02/26/18 STATUS: RES REQ #: [id number] RECD: 02/26/[address]: ROLAND ELLIOTT MD SOURCE: LEG ENTR: 02/26/[address]: JULIET DAVEY MD [facility]: WOUND UNKNOWN PCP NAME ORDERED: ANAER/AEROB/GS Procedure Result ANAEROBIC-AEROBIC CULTURE PENDING ANAEROBIC RES 1 PENDING AEROBIC CULT Final Final report AEROBIC RES 1 Final Comment Methicillin - resistant Staphylococcus aureus 4+ Based on resistance to oxacillin this isolate would be resistant to all currently available beta-lactam antimicrobial agents, with the exception of the newer cephalosporins with anti-MRSA activity, such as Ceftaroline AEROBIC RES 2 Final Enterococcus faecalis 4+ AEROBIC RES 3 Final Comment Beta hemolytic Streptococcus, group B 4+ Penicillin and ampicillin are drugs of choice for treatment of beta-hemolytic streptococcal infections. Susceptibility testing of penicillins and other beta-lactam agents approved by the FDA for treatment of beta-hemolytic streptococcal infections need not be performed routinely because nonsusceptible isolates are extremely rare in any beta-hemolytic streptococcus and have not been reported for Streptococcus pyogenes (group A). (CLSI) CONTINUED ON NEXT PAGE RUN DATE: 03/01/18 PAGE 2 RUN TIME: 1420 [facility] [address] [place] [address] Saleem Walsh M.D., [employer] Supervisor SPEC: [id number] PATIENT: DIANE CARLSON [id number] ( Continued) Procedure Result ANTIMICROBIAL SUSCEPTIBILITY Final Comment S = Susceptible; I = Intermediate; R = Resistant P = Positive; N = Negative MICS are expressed in micrograms per mL Antibiotic RSLT#1 RSLT#2 RSLT#3 RSLT#4 Ciprofloxacin S<=0.5 Clindamycin R>=8 Erythromycin R>=8 Gentamicin S =4 Levofloxacin S<=0.12 Linezolid S =2 Oxacillin R =R Penicillin R>=0.5 S =8 Rifampin S<=0.5 Tetracycline R>=16 Trimethoprim/Sulfa S<=10 Vancomycin S<=0.5 S =1 GRAM STAIN Final Final report GRAM STAIN RES 1 Final Comment No white blood cells seen. GRAM STAIN RES 2 Final Comment Many gram positive cocci. Performed at: [facility], [place], [place] [id number] Director Style: MANUEL Stark MD, Phone: [phone] Objective: Assessment: Nonhealing right ankle wound with cellulitis.MRSA, Grp B strep, enterococcus fecalis amp sensitive Necrotic ulcer right lateral ankle DM PVD not a candidate for arteriogram CKD on HD AICD in place Run V-tach Tobaccoism allergy to cipro Plan: Plan of Care Continue vancomycin and zosyn for now Monitor renal functions closely Monitor labs/temp f/u cultures Local wound care Smoking cessation Not a candidate for wound vac due to infected wound. With active infection and poor wound healing vascular recommendations are for possible future requirement of a BKA. Pt is agreeing with the above Pt continues to remain on antibiotic trial Usually in these situations, antibiotics alone can fail d/w pt at length Vascular surgery following JUNIOR QUARLES MD Mar 02, 2018 10:48
[2018-03-02 11:11] VITALS: BP 155/53
--- NOTE | 2018-03-02 11:23 | PDOC ---
PROGRESS NOTES Assessment Problems Medical Problems: (1) Anemia Status: Acute (2) Generalized weakness Status: Acute (3) Hyperkalemia Status: Acute Generalized weakness, multi-factorial. Renal failure on dialysis. DM Right LE wound. Obesity. Plan Treat medical diseases. Treat hypothyroidism per internal medicine. Wound care. Subjective no complaints Objective Vital Signs Date Time Temp Pulse Resp B/P (MAP) Pulse Ox O2 Delivery O2 Flow Rate FiO2 03/02/18 11:11 97.9 63 16 155/53 (87) 96 Room Air 97.9 03/02/18 08:44 2.0 Intake and Output 03/02/18 07:00 Intake Total 650 ml Output Total 250 ml Balance 400 ml Intake Oral 600 ml IV Total 50 ml Output Urine Total 250 ml PHYSICAL EXAM Alert. Oriented to time, place and person. PERRL. EOMI. CN: no focal findings. Muscle tone: normal. Muscle strength: 4+/5 DTR: 1+ Plantar reflex: flexor Gait: not examined in bed. Sensory exam: no abnormal findings. No cerebellar signs elicited. Review of Relevant I have reviewed the following items ashley (where applicable) has been applied. Labs Laboratory Tests Test 03/01/18 07:42 03/02/18 03:20 White Blood Count 6.9 x10^3/uL (4.0-11.0) 7.3 x10^3/uL (4.0-11.0) Red Blood Count 2.62 x10^6/uL (3.50-5.40) 2.35 x10^6/uL (3.50-5.40) Hemoglobin 8.2 g/dL (12.0-15.5) 7.2 g/dL (12.0-15.5) Hematocrit 24.7 % (36.0-47.0) 22.1 % (36.0-47.0) Mean Corpuscular Volume 94 fL (79-100) 94 fL (79-100) Mean Corpuscular Hemoglobin 31 pg (25-35) 31 pg (25-35) Mean Corpuscular Hemoglobin Concent 33 g/dL (31-37) 33 g/dL (31-37) Red Cell Distribution Width 21.4 % (11.5-14.5) 21.8 % (11.5-14.5) Platelet Count 217 x10^3/uL (140-400) 194 x10^3/uL (140-400) Neutrophils (%) (Auto) 61 % (31-73) 65 % (31-73) Lymphocytes (%) (Auto) 25 % (24-48) 21 % (24-48) Monocytes (%) (Auto) 11 % (0-9) 10 % (0-9) Eosinophils (%) (Auto) 2 % (0-3) 3 % (0-3) Basophils (%) (Auto) 1 % (0-3) 1 % (0-3) Neutrophils # (Auto) 4.2 x10^3uL (1.8-7.7) 4.7 x10^3uL (1.8-7.7) Lymphocytes # (Auto) 1.7 x10^3/uL (1.0-4.8) 1.6 x10^3/uL (1.0-4.8) Monocytes # (Auto) 0.7 x10^3/uL (0.0-1.1) 0.7 x10^3/uL (0.0-1.1) Eosinophils # (Auto) 0.1 x10^3/uL (0.0-0.7) 0.2 x10^3/uL (0.0-0.7) Basophils # (Auto) 0.1 x10^3/uL (0.0-0.2) 0.1 x10^3/uL (0.0-0.2) Prothrombin Time 14.1 SEC (11.7-14.0) Prothromb Time International Ratio 1.1 (0.8-1.1) Activated Partial Thromboplast Time 38 SEC (24-38) Sodium Level 140 mmol/L (136-145) 141 mmol/L (136-145) Potassium Level 4.2 mmol/L (3.5-5.1) 4.4 mmol/L (3.5-5.1) Chloride Level 102 mmol/L (98-107) 103 mmol/L (98-107) Carbon Dioxide Level 29 mmol/L (21-32) 26 mmol/L (21-32) Anion Gap 9 (6-14) 12 (6-14) Blood Urea Nitrogen 22 mg/dL (7-20) 24 mg/dL (7-20) Creatinine 4.9 mg/dL (0.6-1.0) 5.1 mg/dL (0.6-1.0) Estimated GFR (Cockcroft-Gault) 8.8 8.4 Glucose Level 81 mg/dL (70-99) 113 mg/dL (70-99) Calcium Level 7.6 mg/dL (8.5-10.1) 7.0 mg/dL (8.5-10.1) Creatine Kinase 56 U/L (26-192) Random Vancomycin Level 18.3 mcg/mL Hepatitis B Surface Antigen Nonreactive (Nonreactive) Hepatitis B Surface Antibody Reactive Laboratory Tests Test 03/02/18 03:20 White Blood Count 7.3 x10^3/uL (4.0-11.0) Red Blood Count 2.35 x10^6/uL (3.50-5.40) Hemoglobin 7.2 g/dL (12.0-15.5) Hematocrit 22.1 % (36.0-47.0) Mean Corpuscular Volume 94 fL (79-100) Mean Corpuscular Hemoglobin 31 pg (25-35) Mean Corpuscular Hemoglobin Concent 33 g/dL (31-37) Red Cell Distribution Width 21.8 % (11.5-14.5) Platelet Count 194 x10^3/uL (140-400) Neutrophils (%) (Auto) 65 % (31-73) Lymphocytes (%) (Auto) 21 % (24-48) Monocytes (%) (Auto) 10 % (0-9) Eosinophils (%) (Auto) 3 % (0-3) Basophils (%) (Auto) 1 % (0-3) Neutrophils # (Auto) 4.7 x10^3uL (1.8-7.7) Lymphocytes # (Auto) 1.6 x10^3/uL (1.0-4.8) Monocytes # (Auto) 0.7 x10^3/uL (0.0-1.1) Eosinophils # (Auto) 0.2 x10^3/uL (0.0-0.7) Basophils # (Auto) 0.1 x10^3/uL (0.0-0.2) Sodium Level 141 mmol/L (136-145) Potassium Level 4.4 mmol/L (3.5-5.1) Chloride Level 103 mmol/L (98-107) Carbon Dioxide Level 26 mmol/L (21-32) Anion Gap 12 (6-14) Blood Urea Nitrogen 24 mg/dL (7-20) Creatinine 5.1 mg/dL (0.6-1.0) Estimated GFR (Cockcroft-Gault) 8.4 Glucose Level 113 mg/dL (70-99) Calcium Level 7.0 mg/dL (8.5-10.1) Hepatitis B Surface Antigen Nonreactive (Nonreactive) Hepatitis B Surface Antibody Reactive Microbiology 02/26/18 Anaerobic/Aerobic Culture, Resulted Pending 02/26/18 Anaerobic Culture Result 1 (LUZ), Resulted Pending 02/26/18 Aerobic Culture - Final, Resulted 02/26/18 Aerobic Culture Result 1 (LUZ) - Final, Resulted 02/26/18 Aerobic Culture Result 2 (LUZ) - Final, Resulted 02/26/18 Aerobic Culture Result 3 (LUZ) - Final, Resulted 02/26/18 Antimicrobic Susceptibility - Final, Resulted 02/26/18 Gram Stain - Final, Resulted 02/26/18 Gram Stain Result 1 (LUZ) - Final, Resulted 02/26/18 Gram Stain Result 2 (LUZ) - Final, Resulted Medications Current Medications Sodium Bicarbonate (Sodium Bicarb Adult 8.4% Syr) 50 meq 1X ONCE IV Last administered on 02/25/18at 19:16; Start 02/25/18 at 19:00; Stop 02/25/18 at 19:01 ; Status DC Calcium Gluconate (Calcium Gluconate) 1,000 mg 1X ONCE IVP Last administered on 02/25/18at 19:07; Start 02/25/18 at 19:00; Stop 02/25/18 at 19:01; Status DC Dextrose (Dextrose 50%-Water Syringe) 25 gm 1X ONCE IV Last administered on at 19:14; Start 02/25/18 at 19:00; Stop 02/25/18 at 19:01; Status DC Insulin Human Regular (HumuLIN R VIAL) 10 unit 1X ONCE IV Last administered on 02/25/18at 19:13; Start 02/25/18 at 19:00; Stop 02/25/18 at 19:01; Status DC Albuterol Sulfate (Ventolin Neb Soln) 10 mg 1X ONCE CONT NEB ; Start 02/25/18 at 19:00; Stop 02/25/18 at 19:01; Status DC Ondansetron HCl (Zofran) 4 mg PRN Q8HRS PRN IV NAUSEA/VOMITING; Start 02/25/18 at 21:00; Stop 02/26/18 at 20:59; Status DC Aspirin (Ecotrin) 81 mg QHS PO Last administered on 03/01/18at 22:00; Start at 21:00 Carvedilol (Coreg) 3.125 mg BIDWMEALS PO Last administered on 03/01/18at 17:47 ; Start 02/26/18 at 08:00 Cinacalcet (Sensipar) 30 mg QHS PO Last administered on 03/01/18at 21:59; Start 02/26/18 at 21:00 Clopidogrel Bisulfate (Plavix) 75 mg QHS PO Last administered on 03/01/18at 21: 59; Start 02/26/18 at 21:00 Polyethylene Glycol (miraLAX PACKET) 17 gm PRN DAILY PRN PO CONSTIPATION 1ST CHOICE; Start 02/26/18 at 09:00 Vitamin B Complex/ Vitamin C (Alayna-Oneil) 1 tab DAILY PO Last administered on at 08:36; Start 02/26/18 at 09:00 Sodium Chloride 1,000 ml @ 1,000 mls/hr Q1H PRN IV hypotension; Start 02/26/18 at 13:42; Stop 02/26/18 at 19:41; Status DC Sodium Chloride 1,000 ml @ 400 mls/hr Q2H30M PRN IV PATENCY; Start 02/26/18 at 13:42; Stop 02/27/18 at 01:42; Status DC Info (PHARMACY MONITORING -- do not chart) 1 each PRN DAILY PRN MC SEE COMMENTS ; Start 02/26/18 at 13:45; Stop 02/27/18 at 15:54; Status DC Lidocaine HCl (Xylocaine-Mpf 2% Vial) 0.5 ml 1X STAT ID Last administered on 02/26/18at 14:58; Start 02/26/18 at 14:46; Stop 02/26/18 at 14:50; Status DC Tramadol HCl (Ultram) 50 mg PRN Q6HRS PRN PO MILD PAIN Last administered on 02/07at 08:44; Start 02/26/18 at 20:00 Sodium Chloride 1,000 ml @ 1,000 mls/hr Q1H PRN IV hypotension; Start 02/27/18 at 08:41; Stop 02/27/18 at 14:40; Status DC Sodium Chloride 1,000 ml @ 400 mls/hr Q2H30M PRN IV PATENCY; Start 02/27/18 at 08:41; Stop 02/27/18 at 20:40; Status DC Info (PHARMACY MONITORING -- do not chart) 1 each PRN DAILY PRN MC SEE COMMENTS ; Start 02/27/18 at 08:45; Status UNV Info (PHARMACY MONITORING -- do not chart) 1 each PRN DAILY PRN MC SEE COMMENTS ; Start 02/27/18 at 08:45 Lidocaine HCl (Xylocaine-Mpf 2% Vial) 2 ml 1X ONCE INJ ; Start 02/27/18 at 09: 00; Stop 02/27/18 at 09:01; Status DC Lidocaine HCl (Lidocaine Pf 2% Vial) 5 ml 1X ONCE IJ Last administered on 02/27at 09:00; Start 02/27/18 at 09:00; Stop 02/27/18 at 09:01; Status DC Alprazolam (Xanax) 0.25 mg PRN DAILY PRN PO ANXIETY / AGITATION Last administered on 03/01/18at 21:59; Start 02/27/18 at 09:15 Atorvastatin Calcium (Lipitor) 10 mg QHS PO Last administered on 03/01/18at 21: 59; Start 02/27/18 at 21:00 Gabapentin (Neurontin) 300 mg QHS PO Last administered on 03/01/18at 21:59; Start 02/27/18 at 21:00 Sertraline HCl (Zoloft) 50 mg QHS PO Last administered on 03/01/18at 21:59; Start 02/27/18 at 21:00 Acetaminophen/ Hydrocodone Bitart (Lortab 10/325) 1 tab PRN Q6HRS PRN PO PAIN; Start 02/27/18 at 09:30; Stop 02/27/18 at 09:30; Status DC Vancomycin HCl 2 gm/Sodium Chloride 500 ml @ 250 mls/hr 1X ONCE IV ; Start at 09:15; Stop 02/27/18 at 11:14; Status UNV Vancomycin HCl (Vanco Per Pharmacy) 1 each PRN DAILY PRN MC SEE COMMENTS Last administered on 03/01/18at 13:42; Start 02/27/18 at 09:15 Acetaminophen (Tylenol) 650 mg PRN Q6HRS PRN PO FEVER; Start 02/27/18 at 09:15 Ondansetron HCl (Zofran) 4 mg PRN Q6HRS PRN IV NAUSEA/VOMITING Last administered on 03/01/18at 11:57; Start 02/27/18 at 09:15 Docusate Sodium (Colace) 100 mg PRN DAILY PRN PO hard stools; Start 02/27/18 at 09:15 Heparin Sodium (Porcine) (Heparin Sodium) 5,000 unit Q8HRS SQ ; Start 02/27/18 at 14:00 Acetaminophen/ Hydrocodone Bitart (Lortab 10/325) 1 tab PRN Q6HRS PRN PO MODERATE PAIN Last administered on 03/02/18at 05:08; Start 02/27/18 at 09:30 Vancomycin HCl 1.75 gm/Sodium Chloride 500 ml @ 250 mls/hr 1X ONCE IV Last administered on 02/27/18at 18:40; Start 02/27/18 at 12:00; Stop 02/27/18 at 13:59 ; Status DC Piperacillin Sod/ Tazobactam Sod 2.25 gm/Sodium Chloride 50 ml @ 100 mls/hr Q8HRS IV Last administered on 03/02/18at 05:08; Start 02/27/18 at 15:00 Lactobacillus Rhamnosus (Culturelle) 1 cap BID PO Last administered on at 08:36; Start 02/28/18 at 09:00 Levothyroxine Sodium (Synthroid) 88 mcg DAILY06 PO Last administered on at 05:08; Start 02/28/18 at 14:30 Vancomycin HCl (Vancomycin Random Level) 1 each 1X ONCE MC ; Start 03/01/18 at 05:00; Stop 03/01/18 at 05:01; Status DC Vancomycin HCl 500 mg/Sodium Chloride 100 ml @ 100 mls/hr QTUTHSA IV ; Start 03/02/18 at 16:00 Sodium Chloride 1,000 ml @ 1,000 mls/hr Q1H PRN IV hypotension; Start at 08:28; Stop 03/02/18 at 14:27 Albumin Human 200 ml @ 200 mls/hr 1X PRN PRN IV Hypotension; Start 03/02/18 at 08:30; Stop 03/02/18 at 14:29 Diphenhydramine HCl (Benadryl) 25 mg 1X PRN PRN IV ITCHING; Start 03/02/18 at 08:30; Stop 03/03/18 at 08:29 Diphenhydramine HCl (Benadryl) 25 mg 1X PRN PRN IV ITCHING; Start 03/02/18 at 08:30; Stop 03/03/18 at 08:29 Sodium Chloride 1,000 ml @ 400 mls/hr Q2H30M PRN IV PATENCY; Start 03/02/18 at 08:28; Stop 03/02/18 at 20:27 Info (PHARMACY MONITORING -- do not chart) 1 each PRN DAILY PRN MC SEE COMMENTS ; Start 03/02/18 at 08:30; Status UNV Info (PHARMACY MONITORING -- do not chart) 1 each PRN DAILY PRN MC SEE COMMENTS ; Start 03/02/18 at 08:30 Active Scripts Active FENTANYL 25mcg/hr (Fentanyl) 1 Each Patch.td72 1 Patch TD Q3DAYS 30 Days Atorvastatin Calcium 10 Mg Tablet 10 Mg PO QHS 30 Days Carvedilol (Carvedilol) 3.125 Mg Tablet 3.125 Mg PO BIDWMEALS Reported [place] 10-325 Tablet (Acetaminophen/Hydrocodone Bitart) 1 Each Tablet 1 Tab PO Q4 -6HRS Polyethylene Glycol 3350 17 Gm Powd.pack 17 Gm PO PRN DAILY PRN Sertraline Hcl 50 Mg Tablet 50 Mg PO QHS Sensipar (Cinacalcet Hcl) 30 Mg Tablet 1 Tab PO QHS Alayna-Oneil Rx Tablet (Vit B Cmplx 3/Fa/Vit C/Biotin) 1 Each Tablet 1 Each PO DAILY Cranberry Plus Vitamin C Sftgl (Cranberry Conc/Ascorbic Acid) 1 Each Capsule 1 Each PO QHS Alprazolam 0.25 Mg Tablet 1 Tab PO DAILY PRN Plavix (Clopidogrel Bisulfate) 75 Mg Tablet 75 Mg PO QHS Calcium Acetate 667 Mg Tablet 2 Tab PO TIDWMEALS Tylenol Extra Strength (Acetaminophen) 500 Mg Tablet 500 Mg PO PRN Q12HRS PRN Gabapentin (Gabapentin) 300 Mg Capsule 300 Mg PO QHS Benadryl Allergy (Diphenhydramine Hcl) 25 Mg Tablet 25 Mg PO PRN not given in the hospital Aspir 81 (Aspirin) 81 Mg Tablet.dr 81 Mg PO QHS Vitals/I & O Vital Sign - Last 24 Hours 03/01/18 03/01/18 03/01/18 03/01/18 11:56 15:00 15:04 17:47 Temp 98.0 98.0 Pulse 78 78 Resp 16 B/P (MAP) 98/46 (63) 98/46 Pulse Ox 99 O2 Delivery Room Air Room Air Room Air 03/01/18 03/01/18 03/01/18 03/01/18 17:50 18:57 19:00 20:00 Temp 97.3 97.3 Pulse 63 Resp 18 B/P (MAP) 115/51 (72) Pulse Ox 100 O2 Delivery Room Air Room Air Room Air Room Air 03/01/18 03/01/18 03/02/18 03/02/18 21:59 23:00 01:58 03:00 Temp 97.6 97.5 97.6 97.5 Pulse 64 60 Resp 18 18 18 18 B/P (MAP) 118/51 (73) 101/43 (62) Pulse Ox 100 100 100 100 O2 Delivery Room Air Room Air Room Air Room Air 03/02/18 03/02/18 03/02/18 03/02/18 05:08 06:08 07:58 08:00 Temp 98.4 98.4 Pulse 61 Resp 18 18 18 B/P (MAP) 104/46 (65) Pulse Ox 100 100 95 O2 Delivery Room Air Room Air Room Air Room Air O2 Flow Rate 2.0 03/02/18 03/02/18 08:44 11:11 Temp 97.9 97.9 Pulse 63 Resp 16 B/P (MAP) 155/53 (87) Pulse Ox 95 96 O2 Delivery Room Air Room Air O2 Flow Rate 2.0 Intake and Output 03/01/18 03/01/18 03/02/18 15:00 23:00 07:00 Intake Total 120 ml 0 ml 530 ml Output Total 250 ml Balance 120 ml -250 ml 530 ml JENNIFER CANAS MD Mar 02, 2018 11:22
[2018-03-02] MEDS: VANCOMYCIN PER PHARMACY MC PRN (13:38)
[2018-03-02] MEDS: ONDANSETRON PF 4 MG/2 ML VIAL. IV PRN ×2 (15:02→23:30)
--- NOTE | 2018-03-02 16:01 | PDOC ---
Renal-Progress Notes Subjective Notes Notes NO NEW COMPLAINTS History of Present Illness Hx of present illness STABLE Vitals Vitals Vital Signs Date Time Temp Pulse Resp B/P (MAP) Pulse Ox O2 Delivery O2 Flow Rate FiO2 03/02/18 15:35 80 17 97 Room Air 03/02/18 11:11 97.9 155/53 (87) 97.9 03/02/18 08:44 2.0 Weight Weight [ ] I.O. Intake and Output Intake and Output 03/02/18 07:00 Intake Total 650 ml Output Total 250 ml Balance 400 ml Intake Oral 600 ml IV Total 50 ml Output Urine Total 250 ml Labs Labs Laboratory Tests Test 03/01/18 18:00 03/02/18 03:20 Clostridium difficile Toxin B Gene Negative (Negative) White Blood Count 7.3 x10^3/uL (4.0-11.0) Red Blood Count 2.35 x10^6/uL (3.50-5.40) Hemoglobin 7.2 g/dL (12.0-15.5) Hematocrit 22.1 % (36.0-47.0) Mean Corpuscular Volume 94 fL (79-100) Mean Corpuscular Hemoglobin 31 pg (25-35) Mean Corpuscular Hemoglobin Concent 33 g/dL (31-37) Red Cell Distribution Width 21.8 % (11.5-14.5) Platelet Count 194 x10^3/uL (140-400) Neutrophils (%) (Auto) 65 % (31-73) Lymphocytes (%) (Auto) 21 % (24-48) Monocytes (%) (Auto) 10 % (0-9) Eosinophils (%) (Auto) 3 % (0-3) Basophils (%) (Auto) 1 % (0-3) Neutrophils # (Auto) 4.7 x10^3uL (1.8-7.7) Lymphocytes # (Auto) 1.6 x10^3/uL (1.0-4.8) Monocytes # (Auto) 0.7 x10^3/uL (0.0-1.1) Eosinophils # (Auto) 0.2 x10^3/uL (0.0-0.7) Basophils # (Auto) 0.1 x10^3/uL (0.0-0.2) Sodium Level 141 mmol/L (136-145) Potassium Level 4.4 mmol/L (3.5-5.1) Chloride Level 103 mmol/L (98-107) Carbon Dioxide Level 26 mmol/L (21-32) Anion Gap 12 (6-14) Blood Urea Nitrogen 24 mg/dL (7-20) Creatinine 5.1 mg/dL (0.6-1.0) Estimated GFR (Cockcroft-Gault) 8.4 Glucose Level 113 mg/dL (70-99) Calcium Level 7.0 mg/dL (8.5-10.1) Hepatitis B Surface Antigen Nonreactive (Nonreactive) Hepatitis B Surface Antibody Reactive Micro Micro Microbiology 02/26/18 Anaerobic/Aerobic Culture - Final, Complete 02/26/18 Anaerobic Culture Result 1 (LUZ) - Final, Complete 02/26/18 Aerobic Culture - Final, Complete 02/26/18 Aerobic Culture Result 1 (LUZ) - Final, Complete 02/26/18 Aerobic Culture Result 2 (LUZ) - Final, Complete 02/26/18 Aerobic Culture Result 3 (LUZ) - Final, Complete 02/26/18 Antimicrobic Susceptibility - Final, Complete 02/26/18 Gram Stain - Final, Complete 02/26/18 Gram Stain Result 1 (LUZ) - Final, Complete 02/26/18 Gram Stain Result 2 (LUZ) - Final, Complete Review of Systems Constitutional: yes: weakness, alert Ears/Nose/Throat: Yes: no symptom reported Eyes: Yes: no symptom reported Pulmonary: Yes no symptom reported Cardiovascular: Yes no symptom reported Gastrointestional: Yes: no symptom reported Genitourinary: Yes: no symptom reported Musculoskeletal: Yes: no symptom reported Skin: Yes no symptom reported Psychiatric/Neurological: Yes: no symptom reported Physical Exam General Appearance: no apparent distress Skin: warm Respiratory: bilateral CTA Heart: S1S2, RRR Abdomen: soft, bowel sounds present Genitourinary: bladder flat Extremities: pulses present Neurology: alert, oriented Musculoskeletal: Other Assessment Assessment IMP ESRD ANEMIA HTN UREMIA PAD LE WOUND NON COMPLIANCE PLAN HD TODAY UF TO DW CONT TO BE SUPPORTIVE NOTHING WILL HEAL WELL UNLESS SHE DIALYZES REGULARLY SUZY HOWARD MD Mar 02, 2018 16:01
--- NOTE | 2018-03-02 16:25 | RAD ---
MRI of the brain without contrast 03/02/2018 Clinical History: Weakness with right hand numbness. Technique: Unenhanced T1-weighted sagittal and axial, T2-weighted axial and coronal and FLAIR, gradient echo and diffusion-weighted axial images of the brain were obtained. Findings: Comparison is made to patient's CT scan of the head dated 02/28/2018. There is generalized parenchymal atrophy. Patchy and a few small scattered areas of increased signal intensity are seen within the periventricular and subcortical white matter of both cerebral hemispheres on the FLAIR and T2-weighted images consistent with areas of mild small vessel ischemic disease. An area of encephalomalacia seen involving the posterior temporal/occipital lobe. No acute parenchymal abnormality is seen. No extra-axial fluid collection is seen. There is no MRI evidence of acute ischemia/infarction. Mild mucosal thickening in seen scattered throughout the paranasal sinuses. There is a minimal right mastoid effusion. Normal flow voids are seen within the major vascular structures surrounding the brain parenchyma. Impression: No acute parenchymal abnormality is seen. Electronically signed by: Marshall Ngo MD (03/02/2018 4:21 PM) [id number]
[2018-03-02 19:00] VITALS: BP 132/49
[2018-03-02] MEDS: ATORVASTATIN CALCIUM 10 MG TABLET. PO SCH (21:18)
[2018-03-02] MEDS: VANCOMYCIN 500 MG in IV NORMAL SALINE 100ML 100 ML IV SCH (21:18)
[2018-03-02] MEDS: ASPIRIN ENTERIC COATED 81 MG TABLET.DR. PO SCH (21:18)
[2018-03-02] MEDS: CLOPIDOGREL BISULFATE 75 MG TABLET PO SCH (21:18)
[2018-03-02] MEDS: GABAPENTIN 300 MG CAPSULE. PO SCH (21:19)
[2018-03-02] MEDS: SERTRALINE 50 MG TABLET. PO SCH (21:19)
[2018-03-02] MEDS: CINACALCET HCL 30 MG TABLET PO SCH (21:19)
[2018-03-02 22:53] VITALS: BP 136/59
[2018-03-02] MEDS: ALPRAZolam 0.25 MG TABLET PO PRN (23:30)
[2018-03-03 03:00] VITALS: BP 112/49
[2018-03-03] MEDS: HYDROcodone/APAP 10/325 1 TAB TABLET PO PRN ×3 (05:19→20:39)
[2018-03-03] MEDS: LEVOTHYROXINE 88 MCG TABLET PO SCH (05:19)
[2018-03-03] MEDS: HEPARIN for SUB-Q USE 5,000 UNIT/ML VIAL. SQ SCH ×3 (05:19→20:41)
[2018-03-03] MEDS: PIPERACILLIN/TAZOBACTAM 2.25 GM in IV NORMAL SALINE 50ML 50 ML IV SCH (05:19)
[2018-03-03 07:00] VITALS: BP 136/108
[2018-03-03 08:52] LABS: BASO # 0.1 x10^3/uL (0.0-0.2); BASO % 1 % (0-3); EOS # 0.2 x10^3/uL (0.0-0.7); EOS % 3 % (0-3); HEMATOCRIT 23.5 % (36.0-47.0); HEMOGLOBIN 7.6 g/dL (12.0-15.5); LYMPH # 1.6 x10^3/uL (1.0-4.8); LYMPH % 21 % (24-48); MEAN CORPUSCULAR HEMOGLOBIN 30 pg (25-35); MEAN CORPUSCULAR HGB CONC 32 g/dL (31-37); MEAN CORPUSCULAR VOLUME 94 fL (79-100); MONO # 0.7 x10^3/uL (0.0-1.1); MONO % 10 % (0-9); NEUT # 4.9 x10^3uL (1.8-7.7); NEUT % 66 % (31-73); PLATELET COUNT 173 x10^3/uL (140-400); RED BLOOD COUNT 2.51 x10^6/uL (3.50-5.40); RED CELL DISTRIBUTION WIDTH 22.1 % (11.5-14.5); WHITE BLOOD COUNT 7.4 x10^3/uL (4.0-11.0)
[2018-03-03 09:22] LABS: CALCIUM 7.2 mg/dL (8.5-10.1); CREATININE 3.4 mg/dL (0.6-1.0); GFR 13.5; POTASSIUM 4.2 mmol/L (3.5-5.1)
[2018-03-03 11:00] VITALS: BP 109/38
--- NOTE | 2018-03-03 11:11 | PDOC ---
Provider Note Provider Note S: Pt seen while in recliner. I spoke to wound care on Thursday and Dr. Darling and we agreed to try Veraflow vac on right leg medial wound. WBC at 7.4 today. O: VSS, afebrile Awake, alert, in no apparent distress. Respirations non labored PM left chest, PICC right arm Vac removed from right medial leg wound. Wound edges and surrounding tissue erythematous and tender to touch. Central wound base with granulation tissue, medial and lateral wound base with sloughed tissue. Non odorous. Right leg Lateral necrotic wound with no changes since thursday. A/P: Atherosclerosis with ulceration of the right lower extremity with nonhealing right ankle wound with cellulitis, cultures showed MRSA, Grp B Strep , enterococcus fecalis and necrotic ulcer right lateral ankle. - We have recommended BKA for patient, she is not agreeing to this at this time. I discussed with her the risks associated with PAD, her non healing wound and active infection, she exhibited understanding and continues to elect wound vac therapy. I did discuss with her some of the indications for us to be more aggressive. There does appear to be minimal wound improvement since vac placement on Thursday. We will continue with veraflow vac and wound care to right lateral ankle wound for now. - Continue IV abx per ID. - Pt can be full weight bearing, no ambulatory restrictions from our standpoint. KYLER RODRIGUEZ Mar 03, 2018 11:11
[2018-03-03] MEDS: FOLIC/VIT B COMP W-C (RENAL) TABLET. PO SCH (11:13)
[2018-03-03] MEDS: CARVEDILOL 3.125 MG TABLET. PO SCH ×2 (11:13→18:10)
[2018-03-03] MEDS: traMADol 50 MG TABLET PO PRN ×2 (11:14→18:03)
--- NOTE | 2018-03-03 11:43 | PDOC ---
PROGRESS NOTES Chief Complaint Chief Complaint ESRD on HD TuThSa rt leg unhealing wound s/p wound vac Hyperkalemia rt hand weakness, need to rule out stroke Generalized weakness Anemia chronic, with ESRD NONCOMPLIANCE, REFUSES HD SOMETIMES Tobacco abuse disorder fluid overload severe protein-caloric malnutrition DIABETES HTN PPMICD PAD Atherosclerosis with ulceration of the right lower extremity--the patient would like to proceed with medical therapy and attempted limb salvage. pain medication overuse, leading to excess sedation and memory loss plan: vascular , good candidate for sx months ago.angiogram, defer to vascular id consult added vanco for now, wound c+ gram + cocci cont some home meds, bp lower side, on coreg low dose on asa, lipitor., will get MRI To rule out stroke, neuro consult resume pain meds, add lortab 10mg q6h prn, cont tramadol. hold fentanyl patch fu with renal, need HD, agrees wit dialysis plan for now PTOT dvt ppx History of Present Illness History of Present Illness Admitted with poorly healing anterior tibial wound of RLE. ROS: no fever, chills, sob or chest pain c/o rt hand weakness, cannot hold glass, strength 4/5, left side 5/5 - seen by neuro, MRI 03/02/18 no acute CVA She wants to eat, refused supplements in the past. T3 and T4 returned low, stated on 88mcg synthroid. Wound culture back positive, however wound vac has been placed back on wound. The culture is MRSA - resistant to clindamycin and tetracycline. Seen by ID plan: wound vac removal and ?replacement - with MRSA this would not be advisable to replace the wound vac, will d/w ID Antibiotics per ID - vanco ok for now Discharge planning, will need care for wound, etc Vitals Vitals Vital Signs Date Time Temp Pulse Resp B/P (MAP) Pulse Ox O2 Delivery O2 Flow Rate FiO2 03/03/18 07:00 98.4 65 17 136/108 (117) 92 Room Air 2.0 98.4 Physical Exam Physical Exam GENERAL: Sitting in the chair, tired appearance, NAD HEENT: Pupils equally round. Normal conjunctivae. Oral cavity pink and moist. NECK: Supple. LUNGS: Clear to auscultation. HEART: S1 and S2. AICD. ABDOMEN: Soft and nontender. Bowel sounds present. EXTREMITIES: Unremarkable except right lower extremity 1+ edema. Large deep ulcer, medial right lower extremity with foul odor and necrotic tissue. Also has a smaller necrotic ulcer lateral ankle as well. DP pulse difficult to palpate. SKIN: Warm without rash. LUE-AV fistula NEUROLOGICAL: Alert and oriented x 3. General: Alert, Oriented X3, Cooperative, mild distress Heart: Regular rate, Normal S1, Normal S2 Lungs: Clear, Other Abdomen: Normal bowel sounds, Soft, No tenderness Extremities: No cyanosis, Other (right ankle wound bandaged deep soft tissue infection) Labs LABS Laboratory Tests Test 03/03/18 08:30 White Blood Count 7.4 x10^3/uL (4.0-11.0) Red Blood Count 2.51 x10^6/uL (3.50-5.40) Hemoglobin 7.6 g/dL (12.0-15.5) Hematocrit 23.5 % (36.0-47.0) Mean Corpuscular Volume 94 fL (79-100) Mean Corpuscular Hemoglobin 30 pg (25-35) Mean Corpuscular Hemoglobin Concent 32 g/dL (31-37) Red Cell Distribution Width 22.1 % (11.5-14.5) Platelet Count 173 x10^3/uL (140-400) Neutrophils (%) (Auto) 66 % (31-73) Lymphocytes (%) (Auto) 21 % (24-48) Monocytes (%) (Auto) 10 % (0-9) Eosinophils (%) (Auto) 3 % (0-3) Basophils (%) (Auto) 1 % (0-3) Neutrophils # (Auto) 4.9 x10^3uL (1.8-7.7) Lymphocytes # (Auto) 1.6 x10^3/uL (1.0-4.8) Monocytes # (Auto) 0.7 x10^3/uL (0.0-1.1) Eosinophils # (Auto) 0.2 x10^3/uL (0.0-0.7) Basophils # (Auto) 0.1 x10^3/uL (0.0-0.2) Sodium Level 143 mmol/L (136-145) Potassium Level 4.2 mmol/L (3.5-5.1) Chloride Level 104 mmol/L (98-107) Carbon Dioxide Level 28 mmol/L (21-32) Anion Gap 11 (6-14) Blood Urea Nitrogen 14 mg/dL (7-20) Creatinine 3.4 mg/dL (0.6-1.0) Estimated GFR (Cockcroft-Gault) 13.5 Glucose Level 68 mg/dL (70-99) Calcium Level 7.2 mg/dL (8.5-10.1) Assessment and Plan Assessmemt and Plan Problems Medical Problems: (1) Anemia Status: Acute (2) Generalized weakness Status: Acute (3) Hyperkalemia Status: Acute Comment Review of Relevant I have reviewed the following items ashley (where applicable) has been applied. Labs Laboratory Tests Test 03/01/18 18:00 03/02/18 03:20 03/03/18 08:30 Clostridium difficile Toxin B Gene Negative (Negative) White Blood Count 7.3 x10^3/uL (4.0-11.0) 7.4 x10^3/uL (4.0-11.0) Red Blood Count 2.35 x10^6/uL (3.50-5.40) 2.51 x10^6/uL (3.50-5.40) Hemoglobin 7.2 g/dL (12.0-15.5) 7.6 g/dL (12.0-15.5) Hematocrit 22.1 % (36.0-47.0) 23.5 % (36.0-47.0) Mean Corpuscular Volume 94 fL (79-100) 94 fL (79-100) Mean Corpuscular Hemoglobin 31 pg (25-35) 30 pg (25-35) Mean Corpuscular Hemoglobin Concent 33 g/dL (31-37) 32 g/dL (31-37) Red Cell Distribution Width 21.8 % (11.5-14.5) 22.1 % (11.5-14.5) Platelet Count 194 x10^3/uL (140-400) 173 x10^3/uL (140-400) Neutrophils (%) (Auto) 65 % (31-73) 66 % (31-73) Lymphocytes (%) (Auto) 21 % (24-48) 21 % (24-48) Monocytes (%) (Auto) 10 % (0-9) 10 % (0-9) Eosinophils (%) (Auto) 3 % (0-3) 3 % (0-3) Basophils (%) (Auto) 1 % (0-3) 1 % (0-3) Neutrophils # (Auto) 4.7 x10^3uL (1.8-7.7) 4.9 x10^3uL (1.8-7.7) Lymphocytes # (Auto) 1.6 x10^3/uL (1.0-4.8) 1.6 x10^3/uL (1.0-4.8) Monocytes # (Auto) 0.7 x10^3/uL (0.0-1.1) 0.7 x10^3/uL (0.0-1.1) Eosinophils # (Auto) 0.2 x10^3/uL (0.0-0.7) 0.2 x10^3/uL (0.0-0.7) Basophils # (Auto) 0.1 x10^3/uL (0.0-0.2) 0.1 x10^3/uL (0.0-0.2) Sodium Level 141 mmol/L (136-145) 143 mmol/L (136-145) Potassium Level 4.4 mmol/L (3.5-5.1) 4.2 mmol/L (3.5-5.1) Chloride Level 103 mmol/L (98-107) 104 mmol/L (98-107) Carbon Dioxide Level 26 mmol/L (21-32) 28 mmol/L (21-32) Anion Gap 12 (6-14) 11 (6-14) Blood Urea Nitrogen 24 mg/dL (7-20) 14 mg/dL (7-20) Creatinine 5.1 mg/dL (0.6-1.0) 3.4 mg/dL (0.6-1.0) Estimated GFR (Cockcroft-Gault) 8.4 13.5 Glucose Level 113 mg/dL (70-99) 68 mg/dL (70-99) Calcium Level 7.0 mg/dL (8.5-10.1) 7.2 mg/dL (8.5-10.1) Hepatitis B Surface Antigen Nonreactive (Nonreactive) Hepatitis B Surface Antibody Reactive Laboratory Tests Test 03/03/18 08:30 White Blood Count 7.4 x10^3/uL (4.0-11.0) Red Blood Count 2.51 x10^6/uL (3.50-5.40) Hemoglobin 7.6 g/dL (12.0-15.5) Hematocrit 23.5 % (36.0-47.0) Mean Corpuscular Volume 94 fL (79-100) Mean Corpuscular Hemoglobin 30 pg (25-35) Mean Corpuscular Hemoglobin Concent 32 g/dL (31-37) Red Cell Distribution Width 22.1 % (11.5-14.5) Platelet Count 173 x10^3/uL (140-400) Neutrophils (%) (Auto) 66 % (31-73) Lymphocytes (%) (Auto) 21 % (24-48) Monocytes (%) (Auto) 10 % (0-9) Eosinophils (%) (Auto) 3 % (0-3) Basophils (%) (Auto) 1 % (0-3) Neutrophils # (Auto) 4.9 x10^3uL (1.8-7.7) Lymphocytes # (Auto) 1.6 x10^3/uL (1.0-4.8) Monocytes # (Auto) 0.7 x10^3/uL (0.0-1.1) Eosinophils # (Auto) 0.2 x10^3/uL (0.0-0.7) Basophils # (Auto) 0.1 x10^3/uL (0.0-0.2) Sodium Level 143 mmol/L (136-145) Potassium Level 4.2 mmol/L (3.5-5.1) Chloride Level 104 mmol/L (98-107) Carbon Dioxide Level 28 mmol/L (21-32) Anion Gap 11 (6-14) Blood Urea Nitrogen 14 mg/dL (7-20) Creatinine 3.4 mg/dL (0.6-1.0) Estimated GFR (Cockcroft-Gault) 13.5 Glucose Level 68 mg/dL (70-99) Calcium Level 7.2 mg/dL (8.5-10.1) Microbiology 02/26/18 Anaerobic/Aerobic Culture - Final, Complete 02/26/18 Anaerobic Culture Result 1 (LUZ) - Final, Complete 02/26/18 Aerobic Culture - Final, Complete 02/26/18 Aerobic Culture Result 1 (LUZ) - Final, Complete 02/26/18 Aerobic Culture Result 2 (LZU) - Final, Complete 02/26/18 Aerobic Culture Result 3 (LUZ) - Final, Complete 02/26/18 Antimicrobic Susceptibility - Final, Complete 02/26/18 Gram Stain - Final, Complete 02/26/18 Gram Stain Result 1 (LUZ) - Final, Complete 02/26/18 Gram Stain Result 2 (LUZ) - Final, Complete Medications Current Medications Sodium Bicarbonate (Sodium Bicarb Adult 8.4% Syr) 50 meq 1X ONCE IV Last administered on 02/25/18at 19:16; Start 02/25/18 at 19:00; Stop 02/25/18 at 19:01 ; Status DC Calcium Gluconate (Calcium Gluconate) 1,000 mg 1X ONCE IVP Last administered on 02/25/18at 19:07; Start 02/25/18 at 19:00; Stop 02/25/18 at 19:01; Status DC Dextrose (Dextrose 50%-Water Syringe) 25 gm 1X ONCE IV Last administered on at 19:14; Start 02/25/18 at 19:00; Stop 02/25/18 at 19:01; Status DC Insulin Human Regular (HumuLIN R VIAL) 10 unit 1X ONCE IV Last administered on 02/25/18at 19:13; Start 02/25/18 at 19:00; Stop 02/25/18 at 19:01; Status DC Albuterol Sulfate (Ventolin Neb Soln) 10 mg 1X ONCE CONT NEB ; Start 02/25/18 at 19:00; Stop 02/25/18 at 19:01; Status DC Ondansetron HCl (Zofran) 4 mg PRN Q8HRS PRN IV NAUSEA/VOMITING; Start 02/25/18 at 21:00; Stop 02/26/18 at 20:59; Status DC Aspirin (Ecotrin) 81 mg QHS PO Last administered on 03/02/18at 21:18; Start at 21:00 Carvedilol (Coreg) 3.125 mg BIDWMEALS PO Last administered on 03/02/18at 21:19 ; Start 02/26/18 at 08:00 Cinacalcet (Sensipar) 30 mg QHS PO Last administered on 03/02/18at 21:19; Start 02/26/18 at 21:00 Clopidogrel Bisulfate (Plavix) 75 mg QHS PO Last administered on 03/02/18at 21: 18; Start 02/26/18 at 21:00 Polyethylene Glycol (miraLAX PACKET) 17 gm PRN DAILY PRN PO CONSTIPATION 1ST CHOICE; Start 02/26/18 at 09:00 Vitamin B Complex/ Vitamin C (Alayna-Oneil) 1 tab DAILY PO Last administered on at 08:36; Start 02/26/18 at 09:00 Sodium Chloride 1,000 ml @ 1,000 mls/hr Q1H PRN IV hypotension; Start 02/26/18 at 13:42; Stop 02/26/18 at 19:41; Status DC Sodium Chloride 1,000 ml @ 400 mls/hr Q2H30M PRN IV PATENCY; Start 02/26/18 at 13:42; Stop 02/27/18 at 01:42; Status DC Info (PHARMACY MONITORING -- do not chart) 1 each PRN DAILY PRN MC SEE COMMENTS ; Start 02/26/18 at 13:45; Stop 02/27/18 at 15:54; Status DC Lidocaine HCl (Xylocaine-Mpf 2% Vial) 0.5 ml 1X STAT ID Last administered on 02/26/18at 14:58; Start 02/26/18 at 14:46; Stop 02/26/18 at 14:50; Status DC Tramadol HCl (Ultram) 50 mg PRN Q6HRS PRN PO MILD PAIN Last administered on 02/07at 23:30; Start 02/26/18 at 20:00 Sodium Chloride 1,000 ml @ 1,000 mls/hr Q1H PRN IV hypotension; Start 02/27/18 at 08:41; Stop 02/27/18 at 14:40; Status DC Sodium Chloride 1,000 ml @ 400 mls/hr Q2H30M PRN IV PATENCY; Start 02/27/18 at 08:41; Stop 02/27/18 at 20:40; Status DC Info (PHARMACY MONITORING -- do not chart) 1 each PRN DAILY PRN MC SEE COMMENTS ; Start 02/27/18 at 08:45; Status UNV Info (PHARMACY MONITORING -- do not chart) 1 each PRN DAILY PRN MC SEE COMMENTS ; Start 02/27/18 at 08:45; Stop 03/02/18 at 13:36; Status DC Lidocaine HCl (Xylocaine-Mpf 2% Vial) 2 ml 1X ONCE INJ ; Start 02/27/18 at 09: 00; Stop 02/27/18 at 09:01; Status DC Lidocaine HCl (Lidocaine Pf 2% Vial) 5 ml 1X ONCE IJ Last administered on 02/27at 09:00; Start 02/27/18 at 09:00; Stop 02/27/18 at 09:01; Status DC Alprazolam (Xanax) 0.25 mg PRN DAILY PRN PO ANXIETY / AGITATION Last administered on 03/02/18at 23:30; Start 02/27/18 at 09:15 Atorvastatin Calcium (Lipitor) 10 mg QHS PO Last administered on 03/02/18at 21: 18; Start 02/27/18 at 21:00 Gabapentin (Neurontin) 300 mg QHS PO Last administered on 03/02/18at 21:19; Start 02/27/18 at 21:00 Sertraline HCl (Zoloft) 50 mg QHS PO Last administered on 03/02/18at 21:19; Start 02/27/18 at 21:00 Acetaminophen/ Hydrocodone Bitart (Lortab 10/325) 1 tab PRN Q6HRS PRN PO PAIN; Start 02/27/18 at 09:30; Stop 02/27/18 at 09:30; Status DC Vancomycin HCl 2 gm/Sodium Chloride 500 ml @ 250 mls/hr 1X ONCE IV ; Start at 09:15; Stop 02/27/18 at 11:14; Status UNV Vancomycin HCl (Vanco Per Pharmacy) 1 each PRN DAILY PRN MC SEE COMMENTS Last administered on 03/02/18at 13:38; Start 02/27/18 at 09:15 Acetaminophen (Tylenol) 650 mg PRN Q6HRS PRN PO FEVER; Start 02/27/18 at 09:15 Ondansetron HCl (Zofran) 4 mg PRN Q6HRS PRN IV NAUSEA/VOMITING Last administered on 03/02/18at 23:30; Start 02/27/18 at 09:15 Docusate Sodium (Colace) 100 mg PRN DAILY PRN PO hard stools; Start 02/27/18 at 09:15 Heparin Sodium (Porcine) (Heparin Sodium) 5,000 unit Q8HRS SQ ; Start 02/27/18 at 14:00 Acetaminophen/ Hydrocodone Bitart (Lortab 10/325) 1 tab PRN Q6HRS PRN PO MODERATE PAIN Last administered on 03/03/18at 05:19; Start 02/27/18 at 09:30 Vancomycin HCl 1.75 gm/Sodium Chloride 500 ml @ 250 mls/hr 1X ONCE IV Last administered on 02/27/18at 18:40; Start 02/27/18 at 12:00; Stop 02/27/18 at 13:59 ; Status DC Piperacillin Sod/ Tazobactam Sod 2.25 gm/Sodium Chloride 50 ml @ 100 mls/hr Q8HRS IV Last administered on 03/03/18at 05:19; Start 02/27/18 at 15:00 Lactobacillus Rhamnosus (Culturelle) 1 cap BID PO Last administered on at 21:19; Start 02/28/18 at 09:00 Levothyroxine Sodium (Synthroid) 88 mcg DAILY06 PO Last administered on at 05:19; Start 02/28/18 at 14:30 Vancomycin HCl (Vancomycin Random Level) 1 each 1X ONCE MC ; Start 03/01/18 at 05:00; Stop 03/01/18 at 05:01; Status DC Vancomycin HCl 500 mg/Sodium Chloride 100 ml @ 100 mls/hr QTUTHSA IV Last administered on 03/02/18at 21:18; Start 03/02/18 at 16:00 Sodium Chloride 1,000 ml @ 1,000 mls/hr Q1H PRN IV hypotension; Start at 08:28; Stop 03/02/18 at 14:27; Status DC Albumin Human 200 ml @ 200 mls/hr 1X PRN PRN IV Hypotension; Start 03/02/18 at 08:30; Stop 03/02/18 at 14:29; Status DC Diphenhydramine HCl (Benadryl) 25 mg 1X PRN PRN IV ITCHING; Start 03/02/18 at 08:30; Stop 03/03/18 at 08:29; Status DC Diphenhydramine HCl (Benadryl) 25 mg 1X PRN PRN IV ITCHING; Start 03/02/18 at 08:30; Stop 03/03/18 at 08:29; Status DC Sodium Chloride 1,000 ml @ 400 mls/hr Q2H30M PRN IV PATENCY; Start 03/02/18 at 08:28; Stop 03/02/18 at 20:27; Status DC Info (PHARMACY MONITORING -- do not chart) 1 each PRN DAILY PRN MC SEE COMMENTS ; Start 03/02/18 at 08:30; Status UNV Info (PHARMACY MONITORING -- do not chart) 1 each PRN DAILY PRN MC SEE COMMENTS ; Start 03/02/18 at 08:30 Sodium Chloride 1,000 ml @ 1,000 mls/hr Q1H PRN IV hypotension; Start at 16:15; Stop 03/02/18 at 22:14; Status DC Sodium Chloride 1,000 ml @ 400 mls/hr Q2H30M PRN IV PATENCY; Start 03/02/18 at 16:15; Stop 03/03/18 at 04:14; Status DC Info (PHARMACY MONITORING -- do not chart) 1 each PRN DAILY PRN MC SEE COMMENTS ; Start 03/02/18 at 16:15; Status UNV Info (PHARMACY MONITORING -- do not chart) 1 each PRN DAILY PRN MC SEE COMMENTS ; Start 03/02/18 at 16:15; Status UNV Active Scripts Active FENTANYL 25mcg/hr (Fentanyl) 1 Each Patch.td72 1 Patch TD Q3DAYS 30 Days Atorvastatin Calcium 10 Mg Tablet 10 Mg PO QHS 30 Days Carvedilol (Carvedilol) 3.125 Mg Tablet 3.125 Mg PO BIDWMEALS Reported Springer 10-325 Tablet (Acetaminophen/Hydrocodone Bitart) 1 Each Tablet 1 Tab PO Q4 -6HRS Polyethylene Glycol 3350 17 Gm Powd.pack 17 Gm PO PRN DAILY PRN Sertraline Hcl 50 Mg Tablet 50 Mg PO QHS Sensipar (Cinacalcet Hcl) 30 Mg Tablet 1 Tab PO QHS Alayna-Oneil Rx Tablet (Vit B Cmplx 3/Fa/Vit C/Biotin) 1 Each Tablet 1 Each PO DAILY Cranberry Plus Vitamin C Sftgl (Cranberry Conc/Ascorbic Acid) 1 Each Capsule 1 Each PO QHS Alprazolam 0.25 Mg Tablet 1 Tab PO DAILY PRN Plavix (Clopidogrel Bisulfate) 75 Mg Tablet 75 Mg PO QHS Calcium Acetate 667 Mg Tablet 2 Tab PO TIDWMEALS Tylenol Extra Strength (Acetaminophen) 500 Mg Tablet 500 Mg PO PRN Q12HRS PRN Gabapentin (Gabapentin) 300 Mg Capsule 300 Mg PO QHS Benadryl Allergy (Diphenhydramine Hcl) 25 Mg Tablet 25 Mg PO PRN not given in the hospital Aspir 81 (Aspirin) 81 Mg Tablet.dr 81 Mg PO QHS Vitals/I & O Vital Sign - Last 24 Hours 03/02/18 03/02/18 03/02/18 03/02/18 15:02 15:25 15:30 15:35 Pulse 88 75 80 Resp 16 18 17 Pulse Ox 96 95 96 97 O2 Delivery Room Air Room Air Room Air Room Air 03/02/18 03/02/18 03/02/18 03/02/18 17:11 19:00 19:58 21:19 Temp 98.3 98.3 Pulse 89 89 Resp 20 18 B/P (MAP) 132/49 (76) 132/49 Pulse Ox 97 97 O2 Delivery Room Air Room Air Room Air O2 Flow Rate 2.0 03/02/18 03/02/18 03/02/18 03/03/18 21:19 22:53 23:30 00:31 Temp 98.6 98.6 Pulse 85 Resp 18 18 18 18 B/P (MAP) 136/59 (84) Pulse Ox 97 97 97 97 O2 Delivery Room Air Room Air Room Air Room Air O2 Flow Rate 2.0 03/03/18 03/03/18 03/03/18 03/03/18 03:00 05:19 06:19 07:00 Temp 98.3 98.4 98.3 98.4 Pulse 62 65 Resp 18 18 18 17 B/P (MAP) 112/49 (70) 136/108 (117) Pulse Ox 97 97 97 92 O2 Delivery Room Air Room Air Room Air Room Air O2 Flow Rate 2.0 2.0 Intake and Output 03/02/18 03/02/18 03/03/18 15:00 23:00 07:00 Intake Total 180 ml 240 ml 1025 ml Output Total 0 ml Balance 180 ml 240 ml 1025 ml SHARRON SMITH MD Mar 03, 2018 11:43
[2018-03-03] MEDS: LACTOBACILLUS RHAMNOSUS GG 1 CAPSULE. PO SCH ×2 (12:22→20:39)
--- NOTE | 2018-03-03 12:36 | PDOC ---
PROGRESS NOTES Assessment Problems Medical Problems: (1) Anemia Status: Acute (2) Generalized weakness Status: Acute (3) Hyperkalemia Status: Acute Generalized weakness, multi-factorial. Renal failure on dialysis. DM Right LE wound, had wound VAC revision yesterday. Obesity. Plan Treat medical diseases. Treat hypothyroidism per internal medicine. Wound care. Subjective no complaints Objective Vital Signs Date Time Temp Pulse Resp B/P (MAP) Pulse Ox O2 Delivery O2 Flow Rate FiO2 03/03/18 12:14 20 92 Room Air 03/03/18 11:14 2.0 03/03/18 11:13 65 136/108 03/03/18 11:00 98.4 98.4 Intake and Output 03/03/18 07:00 Intake Total 1445 ml Output Total 0 ml Balance 1445 ml Intake Oral 1445 ml Output Urine Total 0 ml # Voids 2 PHYSICAL EXAM Alert. Oriented to time, place and person. PERRL. EOMI. CN: no focal findings. Muscle tone: normal. Muscle strength: 4+/5 DTR: 1+ Plantar reflex: flexor Gait: not examined in bed. Sensory exam: no abnormal findings. No cerebellar signs elicited. Review of Relevant I have reviewed the following items ashley (where applicable) has been applied. Labs Laboratory Tests Test 03/01/18 18:00 03/02/18 03:20 03/03/18 08:30 Clostridium difficile Toxin B Gene Negative (Negative) White Blood Count 7.3 x10^3/uL (4.0-11.0) 7.4 x10^3/uL (4.0-11.0) Red Blood Count 2.35 x10^6/uL (3.50-5.40) 2.51 x10^6/uL (3.50-5.40) Hemoglobin 7.2 g/dL (12.0-15.5) 7.6 g/dL (12.0-15.5) Hematocrit 22.1 % (36.0-47.0) 23.5 % (36.0-47.0) Mean Corpuscular Volume 94 fL (79-100) 94 fL (79-100) Mean Corpuscular Hemoglobin 31 pg (25-35) 30 pg (25-35) Mean Corpuscular Hemoglobin Concent 33 g/dL (31-37) 32 g/dL (31-37) Red Cell Distribution Width 21.8 % (11.5-14.5) 22.1 % (11.5-14.5) Platelet Count 194 x10^3/uL (140-400) 173 x10^3/uL (140-400) Neutrophils (%) (Auto) 65 % (31-73) 66 % (31-73) Lymphocytes (%) (Auto) 21 % (24-48) 21 % (24-48) Monocytes (%) (Auto) 10 % (0-9) 10 % (0-9) Eosinophils (%) (Auto) 3 % (0-3) 3 % (0-3) Basophils (%) (Auto) 1 % (0-3) 1 % (0-3) Neutrophils # (Auto) 4.7 x10^3uL (1.8-7.7) 4.9 x10^3uL (1.8-7.7) Lymphocytes # (Auto) 1.6 x10^3/uL (1.0-4.8) 1.6 x10^3/uL (1.0-4.8) Monocytes # (Auto) 0.7 x10^3/uL (0.0-1.1) 0.7 x10^3/uL (0.0-1.1) Eosinophils # (Auto) 0.2 x10^3/uL (0.0-0.7) 0.2 x10^3/uL (0.0-0.7) Basophils # (Auto) 0.1 x10^3/uL (0.0-0.2) 0.1 x10^3/uL (0.0-0.2) Sodium Level 141 mmol/L (136-145) 143 mmol/L (136-145) Potassium Level 4.4 mmol/L (3.5-5.1) 4.2 mmol/L (3.5-5.1) Chloride Level 103 mmol/L (98-107) 104 mmol/L (98-107) Carbon Dioxide Level 26 mmol/L (21-32) 28 mmol/L (21-32) Anion Gap 12 (6-14) 11 (6-14) Blood Urea Nitrogen 24 mg/dL (7-20) 14 mg/dL (7-20) Creatinine 5.1 mg/dL (0.6-1.0) 3.4 mg/dL (0.6-1.0) Estimated GFR (Cockcroft-Gault) 8.4 13.5 Glucose Level 113 mg/dL (70-99) 68 mg/dL (70-99) Calcium Level 7.0 mg/dL (8.5-10.1) 7.2 mg/dL (8.5-10.1) Hepatitis B Surface Antigen Nonreactive (Nonreactive) Hepatitis B Surface Antibody Reactive Laboratory Tests Test 03/03/18 08:30 White Blood Count 7.4 x10^3/uL (4.0-11.0) Red Blood Count 2.51 x10^6/uL (3.50-5.40) Hemoglobin 7.6 g/dL (12.0-15.5) Hematocrit 23.5 % (36.0-47.0) Mean Corpuscular Volume 94 fL (79-100) Mean Corpuscular Hemoglobin 30 pg (25-35) Mean Corpuscular Hemoglobin Concent 32 g/dL (31-37) Red Cell Distribution Width 22.1 % (11.5-14.5) Platelet Count 173 x10^3/uL (140-400) Neutrophils (%) (Auto) 66 % (31-73) Lymphocytes (%) (Auto) 21 % (24-48) Monocytes (%) (Auto) 10 % (0-9) Eosinophils (%) (Auto) 3 % (0-3) Basophils (%) (Auto) 1 % (0-3) Neutrophils # (Auto) 4.9 x10^3uL (1.8-7.7) Lymphocytes # (Auto) 1.6 x10^3/uL (1.0-4.8) Monocytes # (Auto) 0.7 x10^3/uL (0.0-1.1) Eosinophils # (Auto) 0.2 x10^3/uL (0.0-0.7) Basophils # (Auto) 0.1 x10^3/uL (0.0-0.2) Sodium Level 143 mmol/L (136-145) Potassium Level 4.2 mmol/L (3.5-5.1) Chloride Level 104 mmol/L (98-107) Carbon Dioxide Level 28 mmol/L (21-32) Anion Gap 11 (6-14) Blood Urea Nitrogen 14 mg/dL (7-20) Creatinine 3.4 mg/dL (0.6-1.0) Estimated GFR (Cockcroft-Gault) 13.5 Glucose Level 68 mg/dL (70-99) Calcium Level 7.2 mg/dL (8.5-10.1) Microbiology 02/26/18 Anaerobic/Aerobic Culture - Final, Complete 02/26/18 Anaerobic Culture Result 1 (LUZ) - Final, Complete 02/26/18 Aerobic Culture - Final, Complete 02/26/18 Aerobic Culture Result 1 (LUZ) - Final, Complete 02/26/18 Aerobic Culture Result 2 (LUZ) - Final, Complete 02/26/18 Aerobic Culture Result 3 (LUZ) - Final, Complete 02/26/18 Antimicrobic Susceptibility - Final, Complete 02/26/18 Gram Stain - Final, Complete 02/26/18 Gram Stain Result 1 (LUZ) - Final, Complete 02/26/18 Gram Stain Result 2 (LUZ) - Final, Complete Medications Current Medications Sodium Bicarbonate (Sodium Bicarb Adult 8.4% Syr) 50 meq 1X ONCE IV Last administered on 02/25/18at 19:16; Start 02/25/18 at 19:00; Stop 02/25/18 at 19:01 ; Status DC Calcium Gluconate (Calcium Gluconate) 1,000 mg 1X ONCE IVP Last administered on 02/25/18at 19:07; Start 02/25/18 at 19:00; Stop 02/25/18 at 19:01; Status DC Dextrose (Dextrose 50%-Water Syringe) 25 gm 1X ONCE IV Last administered on at 19:14; Start 02/25/18 at 19:00; Stop 02/25/18 at 19:01; Status DC Insulin Human Regular (HumuLIN R VIAL) 10 unit 1X ONCE IV Last administered on 02/25/18at 19:13; Start 02/25/18 at 19:00; Stop 02/25/18 at 19:01; Status DC Albuterol Sulfate (Ventolin Neb Soln) 10 mg 1X ONCE CONT NEB ; Start 02/25/18 at 19:00; Stop 02/25/18 at 19:01; Status DC Ondansetron HCl (Zofran) 4 mg PRN Q8HRS PRN IV NAUSEA/VOMITING; Start 02/25/18 at 21:00; Stop 02/26/18 at 20:59; Status DC Aspirin (Ecotrin) 81 mg QHS PO Last administered on 03/02/18at 21:18; Start at 21:00 Carvedilol (Coreg) 3.125 mg BIDWMEALS PO Last administered on 03/03/18at 11:13 ; Start 02/26/18 at 08:00 Cinacalcet (Sensipar) 30 mg QHS PO Last administered on 03/02/18at 21:19; Start 02/26/18 at 21:00 Clopidogrel Bisulfate (Plavix) 75 mg QHS PO Last administered on 03/02/18at 21: 18; Start 02/26/18 at 21:00 Polyethylene Glycol (miraLAX PACKET) 17 gm PRN DAILY PRN PO CONSTIPATION 1ST CHOICE; Start 02/26/18 at 09:00 Vitamin B Complex/ Vitamin C (Alayna-Oneil) 1 tab DAILY PO Last administered on at 11:13; Start 02/26/18 at 09:00 Sodium Chloride 1,000 ml @ 1,000 mls/hr Q1H PRN IV hypotension; Start 02/26/18 at 13:42; Stop 02/26/18 at 19:41; Status DC Sodium Chloride 1,000 ml @ 400 mls/hr Q2H30M PRN IV PATENCY; Start 02/26/18 at 13:42; Stop 02/27/18 at 01:42; Status DC Info (PHARMACY MONITORING -- do not chart) 1 each PRN DAILY PRN MC SEE COMMENTS ; Start 02/26/18 at 13:45; Stop 02/27/18 at 15:54; Status DC Lidocaine HCl (Xylocaine-Mpf 2% Vial) 0.5 ml 1X STAT ID Last administered on 02/26/18at 14:58; Start 02/26/18 at 14:46; Stop 02/26/18 at 14:50; Status DC Tramadol HCl (Ultram) 50 mg PRN Q6HRS PRN PO MILD PAIN Last administered on 03/09at 11:14; Start 02/26/18 at 20:00 Sodium Chloride 1,000 ml @ 1,000 mls/hr Q1H PRN IV hypotension; Start 02/27/18 at 08:41; Stop 02/27/18 at 14:40; Status DC Sodium Chloride 1,000 ml @ 400 mls/hr Q2H30M PRN IV PATENCY; Start 02/27/18 at 08:41; Stop 02/27/18 at 20:40; Status DC Info (PHARMACY MONITORING -- do not chart) 1 each PRN DAILY PRN MC SEE COMMENTS ; Start 02/27/18 at 08:45; Status UNV Info (PHARMACY MONITORING -- do not chart) 1 each PRN DAILY PRN MC SEE COMMENTS ; Start 02/27/18 at 08:45; Stop 03/02/18 at 13:36; Status DC Lidocaine HCl (Xylocaine-Mpf 2% Vial) 2 ml 1X ONCE INJ ; Start 02/27/18 at 09: 00; Stop 02/27/18 at 09:01; Status DC Lidocaine HCl (Lidocaine Pf 2% Vial) 5 ml 1X ONCE IJ Last administered on 02/27at 09:00; Start 02/27/18 at 09:00; Stop 02/27/18 at 09:01; Status DC Alprazolam (Xanax) 0.25 mg PRN DAILY PRN PO ANXIETY / AGITATION Last administered on 03/02/18at 23:30; Start 02/27/18 at 09:15 Atorvastatin Calcium (Lipitor) 10 mg QHS PO Last administered on 03/02/18at 21: 18; Start 02/27/18 at 21:00 Gabapentin (Neurontin) 300 mg QHS PO Last administered on 03/02/18at 21:19; Start 02/27/18 at 21:00 Sertraline HCl (Zoloft) 50 mg QHS PO Last administered on 03/02/18at 21:19; Start 02/27/18 at 21:00 Acetaminophen/ Hydrocodone Bitart (Lortab 10/325) 1 tab PRN Q6HRS PRN PO PAIN; Start 02/27/18 at 09:30; Stop 02/27/18 at 09:30; Status DC Vancomycin HCl 2 gm/Sodium Chloride 500 ml @ 250 mls/hr 1X ONCE IV ; Start at 09:15; Stop 02/27/18 at 11:14; Status UNV Vancomycin HCl (Vanco Per Pharmacy) 1 each PRN DAILY PRN MC SEE COMMENTS Last administered on 03/02/18at 13:38; Start 02/27/18 at 09:15 Acetaminophen (Tylenol) 650 mg PRN Q6HRS PRN PO FEVER; Start 02/27/18 at 09:15 Ondansetron HCl (Zofran) 4 mg PRN Q6HRS PRN IV NAUSEA/VOMITING Last administered on 03/02/18at 23:30; Start 02/27/18 at 09:15 Docusate Sodium (Colace) 100 mg PRN DAILY PRN PO hard stools; Start 02/27/18 at 09:15 Heparin Sodium (Porcine) (Heparin Sodium) 5,000 unit Q8HRS SQ ; Start 02/27/18 at 14:00 Acetaminophen/ Hydrocodone Bitart (Lortab 10/325) 1 tab PRN Q6HRS PRN PO MODERATE PAIN Last administered on 03/03/18at 05:19; Start 02/27/18 at 09:30 Vancomycin HCl 1.75 gm/Sodium Chloride 500 ml @ 250 mls/hr 1X ONCE IV Last administered on 02/27/18at 18:40; Start 02/27/18 at 12:00; Stop 02/27/18 at 13:59 ; Status DC Piperacillin Sod/ Tazobactam Sod 2.25 gm/Sodium Chloride 50 ml @ 100 mls/hr Q8HRS IV Last administered on 03/03/18at 05:19; Start 02/27/18 at 15:00 Lactobacillus Rhamnosus (Culturelle) 1 cap BID PO Last administered on at 12:22; Start 02/28/18 at 09:00 Levothyroxine Sodium (Synthroid) 88 mcg DAILY06 PO Last administered on at 05:19; Start 02/28/18 at 14:30 Vancomycin HCl (Vancomycin Random Level) 1 each 1X ONCE MC ; Start 03/01/18 at 05:00; Stop 03/01/18 at 05:01; Status DC Vancomycin HCl 500 mg/Sodium Chloride 100 ml @ 100 mls/hr QTUTHSA IV Last administered on 03/02/18at 21:18; Start 03/02/18 at 16:00 Sodium Chloride 1,000 ml @ 1,000 mls/hr Q1H PRN IV hypotension; Start at 08:28; Stop 03/02/18 at 14:27; Status DC Albumin Human 200 ml @ 200 mls/hr 1X PRN PRN IV Hypotension; Start 03/02/18 at 08:30; Stop 03/02/18 at 14:29; Status DC Diphenhydramine HCl (Benadryl) 25 mg 1X PRN PRN IV ITCHING; Start 03/02/18 at 08:30; Stop 03/03/18 at 08:29; Status DC Diphenhydramine HCl (Benadryl) 25 mg 1X PRN PRN IV ITCHING; Start 03/02/18 at 08:30; Stop 03/03/18 at 08:29; Status DC Sodium Chloride 1,000 ml @ 400 mls/hr Q2H30M PRN IV PATENCY; Start 03/02/18 at 08:28; Stop 03/02/18 at 20:27; Status DC Info (PHARMACY MONITORING -- do not chart) 1 each PRN DAILY PRN MC SEE COMMENTS ; Start 03/02/18 at 08:30; Status UNV Info (PHARMACY MONITORING -- do not chart) 1 each PRN DAILY PRN MC SEE COMMENTS ; Start 03/02/18 at 08:30 Sodium Chloride 1,000 ml @ 1,000 mls/hr Q1H PRN IV hypotension; Start at 16:15; Stop 03/02/18 at 22:14; Status DC Sodium Chloride 1,000 ml @ 400 mls/hr Q2H30M PRN IV PATENCY; Start 03/02/18 at 16:15; Stop 03/03/18 at 04:14; Status DC Info (PHARMACY MONITORING -- do not chart) 1 each PRN DAILY PRN MC SEE COMMENTS ; Start 03/02/18 at 16:15; Status UNV Info (PHARMACY MONITORING -- do not chart) 1 each PRN DAILY PRN MC SEE COMMENTS ; Start 03/02/18 at 16:15; Status UNV Active Scripts Active FENTANYL 25mcg/hr (Fentanyl) 1 Each Patch.td72 1 Patch TD Q3DAYS 30 Days Atorvastatin Calcium 10 Mg Tablet 10 Mg PO QHS 30 Days Carvedilol (Carvedilol) 3.125 Mg Tablet 3.125 Mg PO BIDWMEALS Reported [place] 10-325 Tablet (Acetaminophen/Hydrocodone Bitart) 1 Each Tablet 1 Tab PO Q4 -6HRS Polyethylene Glycol 3350 17 Gm Powd.pack 17 Gm PO PRN DAILY PRN Sertraline Hcl 50 Mg Tablet 50 Mg PO QHS Sensipar (Cinacalcet Hcl) 30 Mg Tablet 1 Tab PO QHS Alayna-Oneil Rx Tablet (Vit B Cmplx 3/Fa/Vit C/Biotin) 1 Each Tablet 1 Each PO DAILY Cranberry Plus Vitamin C Sftgl (Cranberry Conc/Ascorbic Acid) 1 Each Capsule 1 Each PO QHS Alprazolam 0.25 Mg Tablet 1 Tab PO DAILY PRN Plavix (Clopidogrel Bisulfate) 75 Mg Tablet 75 Mg PO QHS Calcium Acetate 667 Mg Tablet 2 Tab PO TIDWMEALS Tylenol Extra Strength (Acetaminophen) 500 Mg Tablet 500 Mg PO PRN Q12HRS PRN Gabapentin (Gabapentin) 300 Mg Capsule 300 Mg PO QHS Benadryl Allergy (Diphenhydramine Hcl) 25 Mg Tablet 25 Mg PO PRN not given in the hospital Aspir 81 (Aspirin) 81 Mg Tablet.dr 81 Mg PO QHS Vitals/I & O Vital Sign - Last 24 Hours 03/02/18 03/02/18 03/02/18 03/02/18 15:02 15:25 15:30 15:35 Pulse 88 75 80 Resp 16 18 17 Pulse Ox 96 95 96 97 O2 Delivery Room Air Room Air Room Air Room Air 03/02/18 03/02/18 03/02/18 03/02/18 17:11 19:00 19:58 21:19 Temp 98.3 98.3 Pulse 89 89 Resp 20 18 B/P (MAP) 132/49 (76) 132/49 Pulse Ox 97 97 O2 Delivery Room Air Room Air Room Air O2 Flow Rate 2.0 03/02/18 03/02/18 03/02/18 03/03/18 21:19 22:53 23:30 03:00 Temp 98.6 98.3 98.6 98.3 Pulse 85 62 Resp 18 18 18 18 B/P (MAP) 136/59 (84) 112/49 (70) Pulse Ox 97 97 97 97 O2 Delivery Room Air Room Air Room Air Room Air O2 Flow Rate 2.0 2.0 03/03/18 03/03/18 03/03/18 03/03/18 05:19 06:19 07:00 11:00 Temp 98.4 98.4 98.4 98.4 Pulse 65 66 Resp 18 18 17 20 B/P (MAP) 136/108 (117) 109/38 (61) Pulse Ox 97 97 92 100 O2 Delivery Room Air Room Air Room Air Room Air O2 Flow Rate 2.0 2.0 03/03/18 03/03/18 03/03/18 11:13 11:14 12:14 Pulse 65 Resp 20 B/P (MAP) 136/108 Pulse Ox 92 92 O2 Delivery Room Air Room Air O2 Flow Rate 2.0 Intake and Output 03/02/18 03/02/18 03/03/18 15:00 23:00 07:00 Intake Total 180 ml 240 ml 1025 ml Output Total 0 ml Balance 180 ml 240 ml 1025 ml JENNIFER CANAS MD Mar 03, 2018 12:36
--- NOTE | 2018-03-03 14:09 | PDOC ---
Renal-Progress Notes Subjective Notes Notes NO NEW COMPLAINTS History of Present Illness Hx of present illness STABLE Vitals Vitals Vital Signs Date Time Temp Pulse Resp B/P (MAP) Pulse Ox O2 Delivery O2 Flow Rate FiO2 03/03/18 12:14 20 92 Room Air 03/03/18 11:14 2.0 03/03/18 11:13 65 136/108 03/03/18 11:00 98.4 98.4 Weight Weight [ ] I.O. Intake and Output Intake and Output 03/03/18 07:00 Intake Total 1445 ml Output Total 0 ml Balance 1445 ml Intake Oral 1445 ml Output Urine Total 0 ml # Voids 2 Labs Labs Laboratory Tests Test 03/03/18 08:30 White Blood Count 7.4 x10^3/uL (4.0-11.0) Red Blood Count 2.51 x10^6/uL (3.50-5.40) Hemoglobin 7.6 g/dL (12.0-15.5) Hematocrit 23.5 % (36.0-47.0) Mean Corpuscular Volume 94 fL (79-100) Mean Corpuscular Hemoglobin 30 pg (25-35) Mean Corpuscular Hemoglobin Concent 32 g/dL (31-37) Red Cell Distribution Width 22.1 % (11.5-14.5) Platelet Count 173 x10^3/uL (140-400) Neutrophils (%) (Auto) 66 % (31-73) Lymphocytes (%) (Auto) 21 % (24-48) Monocytes (%) (Auto) 10 % (0-9) Eosinophils (%) (Auto) 3 % (0-3) Basophils (%) (Auto) 1 % (0-3) Neutrophils # (Auto) 4.9 x10^3uL (1.8-7.7) Lymphocytes # (Auto) 1.6 x10^3/uL (1.0-4.8) Monocytes # (Auto) 0.7 x10^3/uL (0.0-1.1) Eosinophils # (Auto) 0.2 x10^3/uL (0.0-0.7) Basophils # (Auto) 0.1 x10^3/uL (0.0-0.2) Sodium Level 143 mmol/L (136-145) Potassium Level 4.2 mmol/L (3.5-5.1) Chloride Level 104 mmol/L (98-107) Carbon Dioxide Level 28 mmol/L (21-32) Anion Gap 11 (6-14) Blood Urea Nitrogen 14 mg/dL (7-20) Creatinine 3.4 mg/dL (0.6-1.0) Estimated GFR (Cockcroft-Gault) 13.5 Glucose Level 68 mg/dL (70-99) Calcium Level 7.2 mg/dL (8.5-10.1) Micro Micro Microbiology 02/26/18 Anaerobic/Aerobic Culture - Final, Complete 02/26/18 Anaerobic Culture Result 1 (LUZ) - Final, Complete 02/26/18 Aerobic Culture - Final, Complete 02/26/18 Aerobic Culture Result 1 (LUZ) - Final, Complete 02/26/18 Aerobic Culture Result 2 (LUZ) - Final, Complete 02/26/18 Aerobic Culture Result 3 (LUZ) - Final, Complete 02/26/18 Antimicrobic Susceptibility - Final, Complete 02/26/18 Gram Stain - Final, Complete 02/26/18 Gram Stain Result 1 (LUZ) - Final, Complete 02/26/18 Gram Stain Result 2 (LUZ) - Final, Complete Review of Systems Constitutional: yes: weakness, alert Ears/Nose/Throat: Yes: no symptom reported Eyes: Yes: no symptom reported Pulmonary: Yes no symptom reported Cardiovascular: Yes no symptom reported Gastrointestional: Yes: no symptom reported Genitourinary: Yes: no symptom reported Musculoskeletal: Yes: no symptom reported Skin: Yes no symptom reported Psychiatric/Neurological: Yes: no symptom reported Physical Exam General Appearance: no apparent distress Skin: warm Respiratory: bilateral CTA Heart: S1S2, RRR Abdomen: soft, bowel sounds present Genitourinary: bladder flat Extremities: pulses present Neurology: alert, oriented Musculoskeletal: Other Assessment Assessment IMP ESRD ANEMIA HTN UREMIA PAD LE WOUND NON COMPLIANCE PLAN HD TOMORROW CONT TO BE SUPPORTIVE NOTHING WILL HEAL WELL UNLESS SHE DIALYZES REGULARLY SUZY HOWARD MD Mar 03, 2018 14:09
[2018-03-03 15:00] VITALS: BP 112/44
--- NOTE | 2018-03-03 15:00 | PDOC ---
Infectious Disease Note Subjective Subjective Feeling weak, not strong enough to go home yet + leg pain, right No F/C/S Vital Sign Vital Signs Vital Signs Date Time Temp Pulse Resp B/P (MAP) Pulse Ox O2 Delivery O2 Flow Rate FiO2 03/03/18 12:14 20 92 Room Air 03/03/18 11:14 2.0 03/03/18 11:13 65 136/108 03/03/18 11:00 98.4 98.4 Physical Exam PHYSICAL EXAM GENERAL: Sitting in the chair, alert, social, eating a large plate of take out [place] food LUNGS: Clear to auscultation. HEART: S1 and S2. AICD. ABDOMEN: Soft and nontender. Bowel sounds present. EXTREMITIES: Right lower extremity 1+ edema. leg wounds bandaged SKIN: Warm without rash. LUE-AV fistula NEUROLOGICAL: Alert and oriented x 3. RUE-midline, clean Labs Lab Laboratory Tests Test 03/03/18 08:30 White Blood Count 7.4 x10^3/uL (4.0-11.0) Red Blood Count 2.51 x10^6/uL (3.50-5.40) Hemoglobin 7.6 g/dL (12.0-15.5) Hematocrit 23.5 % (36.0-47.0) Mean Corpuscular Volume 94 fL (79-100) Mean Corpuscular Hemoglobin 30 pg (25-35) Mean Corpuscular Hemoglobin Concent 32 g/dL (31-37) Red Cell Distribution Width 22.1 % (11.5-14.5) Platelet Count 173 x10^3/uL (140-400) Neutrophils (%) (Auto) 66 % (31-73) Lymphocytes (%) (Auto) 21 % (24-48) Monocytes (%) (Auto) 10 % (0-9) Eosinophils (%) (Auto) 3 % (0-3) Basophils (%) (Auto) 1 % (0-3) Neutrophils # (Auto) 4.9 x10^3uL (1.8-7.7) Lymphocytes # (Auto) 1.6 x10^3/uL (1.0-4.8) Monocytes # (Auto) 0.7 x10^3/uL (0.0-1.1) Eosinophils # (Auto) 0.2 x10^3/uL (0.0-0.7) Basophils # (Auto) 0.1 x10^3/uL (0.0-0.2) Sodium Level 143 mmol/L (136-145) Potassium Level 4.2 mmol/L (3.5-5.1) Chloride Level 104 mmol/L (98-107) Carbon Dioxide Level 28 mmol/L (21-32) Anion Gap 11 (6-14) Blood Urea Nitrogen 14 mg/dL (7-20) Creatinine 3.4 mg/dL (0.6-1.0) Estimated GFR (Cockcroft-Gault) 13.5 Glucose Level 68 mg/dL (70-99) Calcium Level 7.2 mg/dL (8.5-10.1) Micro GRAM STAIN RES 2 Final Comment Many gram positive cocci. Objective Assessment Nonhealing right ankle wound with cellulitis. MRSA, Grp B strep, enterococcus fecalis amp sensitive Necrotic ulcer right lateral ankle DM PVD not a candidate for arteriogram CKD on HD AICD in place Run V-tach Tobaccoism Allergy to cipro Plan Plan of Care Continue vancomycin and switch Zosyn to ceftriaxone Monitor renal functions closely Monitor labs/temp Local wound care Smoking cessation Not a candidate for wound vac due to infected wound. With active infection and poor wound healing vascular recommendations are for possible future requirement of a BKA. Pt continues to remain on antibiotic trial Usually in these situations, antibiotics alone can fail Midline in place per primary d/w pt at length Vascular surgery following Patient seen, examined, I agree with above. 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 TAMMY GAYTAN APRN Mar 03, 2018 15:00 JUNIOR QUARLES MD Mar 04, 2018 07:18
[2018-03-03] MEDS: VANCOMYCIN PER PHARMACY MC PRN (17:16)
[2018-03-03] MEDS: LOPERAMIDE 2 MG CAPSULE PO PRN (18:02)
[2018-03-03] MEDS: cefTRIAXone IV Push 1 GM VIAL. IVP SCH (18:09)
[2018-03-03 19:00] VITALS: BP 106/32
[2018-03-03] MEDS: ATORVASTATIN CALCIUM 10 MG TABLET. PO SCH (20:39)
[2018-03-03] MEDS: GABAPENTIN 300 MG CAPSULE. PO SCH (20:39)
[2018-03-03] MEDS: ALPRAZolam 0.25 MG TABLET PO PRN (20:39)
[2018-03-03] MEDS: CINACALCET HCL 30 MG TABLET PO SCH (20:39)
[2018-03-03] MEDS: SERTRALINE 50 MG TABLET. PO SCH (20:40)
[2018-03-03] MEDS: CLOPIDOGREL BISULFATE 75 MG TABLET PO SCH (20:40)
[2018-03-03] MEDS: ASPIRIN ENTERIC COATED 81 MG TABLET.DR. PO SCH (20:40)
[2018-03-03 23:00] VITALS: BP 110/36
[2018-03-04 03:00] VITALS: BP 103/42
[2018-03-04] MEDS: HYDROcodone/APAP 10/325 1 TAB TABLET PO PRN ×3 (03:52→21:14)
[2018-03-04] MEDS: LEVOTHYROXINE 88 MCG TABLET PO SCH (05:32)
[2018-03-04] MEDS: HEPARIN for SUB-Q USE 5,000 UNIT/ML VIAL. SQ SCH ×3 (05:33→21:15)
[2018-03-04 07:00] VITALS: BP 101/45
[2018-03-04] MEDS ORDERED: IV NORMAL SALINE 1000ML BAG 1,000 ML IV PRN ×2 (07:27)
[2018-03-04] MEDS ORDERED: ACETAMINOPHEN 500 MG TABLET PO PRN (07:30)
[2018-03-04] MEDS ORDERED: diphenhydrAMINE 50 MG/ML VIAL IV PRN ×2 (07:30)
[2018-03-04] MEDS ORDERED: DIALYSIS PATIENT. MC PRN (07:30)
[2018-03-04] MEDS ORDERED: ALBUMIN HUMAN 25% 200 ML IV PRN (07:30)
[2018-03-04] MEDS: CARVEDILOL 3.125 MG TABLET. PO SCH ×2 (08:00→17:06)
[2018-03-04] MEDS: LOPERAMIDE 2 MG CAPSULE PO PRN (08:48)
[2018-03-04] MEDS: FOLIC/VIT B COMP W-C (RENAL) TABLET. PO SCH (08:49)
[2018-03-04] MEDS: LACTOBACILLUS RHAMNOSUS GG 1 CAPSULE. PO SCH ×2 (08:49→21:14)
--- NOTE | 2018-03-04 09:40 | PDOC ---
Infectious Disease Note Subjective: Subjective Feeling weak, not strong enough to go home yet + leg pain, right No F/C/S ROS: ROS Negative except for above. Vital Signs: Vital Signs Vital Signs Date Time Temp Pulse Resp B/P (MAP) Pulse Ox O2 Delivery O2 Flow Rate FiO2 03/04/18 08:00 60 101/45 03/04/18 04:52 18 98 Room Air 03/04/18 03:00 97.7 97.7 03/03/18 15:55 2.0 Physical Exam: PHYSICAL EXAM GENERAL: Sitting in the chair, alert, social, eating a large plate of take out [place]ian food LUNGS: Clear to auscultation. HEART: S1 and S2. AICD. ABDOMEN: Soft and nontender. Bowel sounds present. EXTREMITIES: Right lower extremity 1+ edema. leg wounds bandaged SKIN: Warm without rash. LUE-AV fistula NEUROLOGICAL: Alert and oriented x 3. RUE-midline, clean Medications: Inpatient Meds: Current Medications Medications (Trade) Dose Ordered Sig/Liza Start Time Stop Time Status Last Admin Dose Admin Acetaminophen (Tylenol) 500 mg 1X PRN PRN 03/04/18 07:30 03/05/18 07:29 Acetaminophen/ Hydrocodone Bitart (Lortab 10/325) 1 tab PRN Q6HRS PRN 02/27/18 09:30 03/04/18 03:52 1 TAB Albumin Human 200 ml @ 200 mls/hr 1X PRN PRN 03/04/18 07:30 03/04/18 13:29 Albuterol Sulfate (Ventolin Neb Soln) 10 mg 1X ONCE 02/25/18 19:00 02/25/18 19:01 DC Alprazolam (Xanax) 0.25 mg PRN DAILY PRN 02/27/18 09:15 03/03/18 20:39 0.25 MG Aspirin (Ecotrin) 81 mg QHS 02/26/18 21:00 03/03/18 20:40 81 MG Atorvastatin Calcium (Lipitor) 10 mg QHS 02/27/18 21:00 03/03/18 20:39 10 MG Calcium Gluconate (Calcium Gluconate) 1,000 mg 1X ONCE 02/25/18 19:00 02/25/18 19:01 DC 02/25/18 19:07 1,000 MG Carvedilol (Coreg) 3.125 mg BIDWMEALS 02/26/18 08:00 03/03/18 18:10 3.125 MG Ceftriaxone Sodium (Rocephin) 1 gm Q24H 03/03/18 16:00 03/03/18 18:09 1 GM Cinacalcet (Sensipar) 30 mg QHS 02/26/18 21:00 03/03/18 20:39 30 MG Clopidogrel Bisulfate (Plavix) 75 mg QHS 02/26/18 21:00 03/03/18 20:40 75 MG Dextrose (Dextrose 50%-Water Syringe) 25 gm 1X ONCE 02/25/18 19:00 02/25/18 19:01 DC 02/25/18 19:14 25 GM Diphenhydramine HCl (Benadryl) 25 mg 1X PRN PRN 03/04/18 07:30 03/05/18 07:29 Docusate Sodium (Colace) 100 mg PRN DAILY PRN 02/27/18 09:15 Gabapentin (Neurontin) 300 mg QHS 02/27/18 21:00 03/03/18 20:39 300 MG Heparin Sodium (Porcine) (Heparin Sodium) 5,000 unit Q8HRS 02/27/18 14:00 Info (PHARMACY MONITORING -- do not chart) 1 each PRN DAILY PRN 03/04/18 07:30 Insulin Human Regular (HumuLIN R VIAL) 10 unit 1X ONCE 02/25/18 19:00 02/25/18 19:01 DC 02/25/18 19:13 10 UNIT Lactobacillus Rhamnosus (Culturelle) 1 cap BID 02/28/18 09:00 03/04/18 08:49 1 CAP Levothyroxine Sodium (Synthroid) 88 mcg DAILY06 02/28/18 14:30 03/04/18 05:32 88 MCG Lidocaine HCl (Lidocaine Pf 2% Vial) 5 ml 1X ONCE 02/27/18 09:00 02/27/18 09:01 DC 02/27/18 09:00 5 ML Lidocaine HCl (Xylocaine-Mpf 2% Vial) 2 ml 1X ONCE 02/27/18 09:00 02/27/18 09:01 DC Loperamide HCl (Imodium) 2 mg PRN Q4HRS PRN 03/03/18 15:15 03/04/18 08:48 2 MG Ondansetron HCl (Zofran) 4 mg PRN Q6HRS PRN 02/27/18 09:15 03/02/18 23:30 4 MG Piperacillin Sod/ Tazobactam Sod 2.25 gm/Sodium Chloride 50 ml @ 100 mls/hr Q8HRS 02/27/18 15:00 03/03/18 15:00 DC 03/03/18 05:19 100 MLS/HR Polyethylene Glycol (miraLAX PACKET) 17 gm PRN DAILY PRN 02/26/18 09:00 Sertraline HCl (Zoloft) 50 mg QHS 02/27/18 21:00 03/03/18 20:40 50 MG Sodium Bicarbonate (Sodium Bicarb Adult 8.4% Syr) 50 meq 1X ONCE 02/25/18 19:00 02/25/18 19:01 DC 02/25/18 19:16 50 MEQ Sodium Chloride 1,000 ml @ 400 mls/hr Q2H30M PRN 03/04/18 07:27 03/04/18 19:26 Tramadol HCl (Ultram) 50 mg PRN Q6HRS PRN 02/26/18 20:00 03/03/18 18:03 50 MG Vancomycin HCl (Vanco Per Pharmacy) 1 each PRN DAILY PRN 02/27/18 09:15 03/03/18 17:16 1 EACH Vancomycin HCl (Vancomycin Random Level) 1 each 1X ONCE 03/01/18 05:00 03/01/18 05:01 DC Vancomycin HCl 1.75 gm/Sodium Chloride 500 ml @ 250 mls/hr 1X ONCE 02/27/18 12:00 02/27/18 13:59 DC 02/27/18 18:40 250 MLS/HR Vancomycin HCl 500 mg/Sodium Chloride 100 ml @ 100 mls/hr QTUTHSA 03/02/18 16:00 03/02/18 21:18 100 MLS/HR Vancomycin HCl 2 gm/Sodium Chloride 500 ml @ 250 mls/hr 1X ONCE 02/27/18 09:15 02/27/18 11:14 UNV Vitamin B Complex/ Vitamin C (Alayna-Oneil) 1 tab DAILY 02/26/18 09:00 03/04/18 08:49 1 TAB Labs: Micro RUN DATE: 03/01/18 PAGE 1 RUN TIME: 1420 [facility] [address] [place] [address] Saleem Walsh M.D., Manufacturing Engineer Assembly PATIENT: DIANE CARLSON ACCT: [id number] LOC: [address] [place] [address] U : [id number] AGE/SX: 68/F ROOM: [facility] REG : 02/25/[address]: ROLAND ELLIOTT MD : 1950 BED: 1 DIS : STATUS: ADM IN TLOC: SPEC #: [id number] AMADO: 02/26/18 STATUS: RES REQ #: [id number] RECD: 02/26/18 [facility] DR: ROLAND ELLIOTT MD SOURCE: LEG ENTR: 02/26/[address]: JULIET DAVEY MD [facility]: WOUND UNKNOWN PCP NAME ORDERED: PETER/JELENA/STACIE Procedure Result ANAEROBIC-AEROBIC CULTURE PENDING ANAEROBIC RES 1 PENDING AEROBIC CULT Final Final report AEROBIC RES 1 Final Comment Methicillin - resistant Staphylococcus aureus 4+ Based on resistance to oxacillin this isolate would be resistant to all currently available beta-lactam antimicrobial agents, with the exception of the newer cephalosporins with anti-MRSA activity, such as Ceftaroline AEROBIC RES 2 Final Enterococcus faecalis 4+ AEROBIC RES 3 Final Comment Beta hemolytic Streptococcus, group B 4+ Penicillin and ampicillin are drugs of choice for treatment of beta-hemolytic streptococcal infections. Susceptibility testing of penicillins and other beta-lactam agents approved by the FDA for treatment of beta-hemolytic streptococcal infections need not be performed routinely because nonsusceptible isolates are extremely rare in any beta-hemolytic streptococcus and have not been reported for Streptococcus pyogenes (group A). (CLSI) CONTINUED ON NEXT PAGE RUN DATE: 03/01/18 PAGE 2 RUN TIME: 1420 [facility] [address] [place] [address] Saleem Walsh M.D., Manufacturing Engineer Assembly SPEC: [id number] PATIENT: DIANE CARLSON [id number] ( Continued) Procedure Result ANTIMICROBIAL SUSCEPTIBILITY Final Comment S = Susceptible; I = Intermediate; R = Resistant P = Positive; N = Negative MICS are expressed in micrograms per mL Antibiotic RSLT#1 RSLT#2 RSLT#3 RSLT#4 Ciprofloxacin S<=0.5 Clindamycin R>=8 Erythromycin R>=8 Gentamicin S =4 Levofloxacin S<=0.12 Linezolid S =2 Oxacillin R =R Penicillin R>=0.5 S =8 Rifampin S<=0.5 Tetracycline R>=16 Trimethoprim/Sulfa S<=10 Vancomycin S<=0.5 S =1 GRAM STAIN Final Final report GRAM STAIN RES 1 Final Comment No white blood cells seen. GRAM STAIN RES 2 Final Comment Many gram positive cocci. Performed at: - [address], [place], [place] [id number] Beverage Manager: MANUEL Stark MD, Phone: [phone] Objective: Assessment: Nonhealing right ankle wound with cellulitis.MRSA, Grp B strep, enterococcus fecalis amp sensitive Necrotic ulcer right lateral ankle DM PVD not a candidate for arteriogram CKD on HD AICD in place Run V-tach Tobaccoism allergy to cipro Plan: Plan of Care Continue vancomycin and ceftriaxone ,was on zosyn Monitor renal functions closely Monitor labs/temp Local wound care Smoking cessation With active infection and poor wound healing vascular recommendations are for possible future requirement of a BKA. Pt continues to remain on antibiotic trial Usually in these situations, antibiotics alone can fail Midline in place per primary d/w pt at length Duration of treatment 4-6 weeks weekly labs Q mon cbc,lft ,fax results to [id number] FU with us in 2-3 weeks Midline care wound care per vascular JUNIOR QUARLES MD Mar 04, 2018 09:39
[2018-03-04 11:00] VITALS: BP 125/42
--- NOTE | 2018-03-04 11:17 | PDOC ---
Renal-Progress Notes Subjective Notes Notes HAS DIARRHEA History of Present Illness Hx of present illness NO CHANGE Vitals Vitals Vital Signs Date Time Temp Pulse Resp B/P (MAP) Pulse Ox O2 Delivery O2 Flow Rate FiO2 03/04/18 08:00 60 101/45 03/04/18 07:00 97.5 18 99 Room Air 97.5 03/03/18 15:55 2.0 Weight Weight [ ] I.O. Intake and Output Intake and Output 03/04/18 07:00 Intake Total 1080 ml Output Total 2 ml Balance 1078 ml Intake Oral 1080 ml Stool Total 2 ml # Voids 5 # Bowel Movements 1 Micro Micro Microbiology 02/26/18 Anaerobic/Aerobic Culture - Final, Complete 02/26/18 Anaerobic Culture Result 1 (LUZ) - Final, Complete 02/26/18 Aerobic Culture - Final, Complete 02/26/18 Aerobic Culture Result 1 (LUZ) - Final, Complete 02/26/18 Aerobic Culture Result 2 (LUZ) - Final, Complete 02/26/18 Aerobic Culture Result 3 (LUZ) - Final, Complete 02/26/18 Antimicrobic Susceptibility - Final, Complete 02/26/18 Gram Stain - Final, Complete 02/26/18 Gram Stain Result 1 (LUZ) - Final, Complete 02/26/18 Gram Stain Result 2 (LUZ) - Final, Complete Review of Systems Constitutional: yes: weakness, alert Ears/Nose/Throat: Yes: no symptom reported Eyes: Yes: no symptom reported Pulmonary: Yes no symptom reported Cardiovascular: Yes no symptom reported Gastrointestional: Yes: no symptom reported Genitourinary: Yes: no symptom reported Musculoskeletal: Yes: no symptom reported Skin: Yes no symptom reported Psychiatric/Neurological: Yes: no symptom reported Physical Exam General Appearance: no apparent distress Skin: warm Respiratory: bilateral CTA Heart: S1S2, RRR Abdomen: soft, bowel sounds present Genitourinary: bladder flat Extremities: pulses present Neurology: alert, oriented Musculoskeletal: Other Assessment Assessment IMP ESRD ANEMIA HTN UREMIA PAD LE WOUND NON COMPLIANCE DIARRHEA PLAN WOUND CARE HD TODAY FOR CLEARANCE IF PT AGREES UF MINIMAL CONT TO BE SUPPORTIVE SUZY HOWARD MD Mar 04, 2018 11:17
[2018-03-04] MEDS: VANCOMYCIN PER PHARMACY MC PRN (14:13)
[2018-03-04 15:00] VITALS: BP 137/39
--- NOTE | 2018-03-04 16:46 | PDOC ---
PROGRESS NOTES Assessment Problems Medical Problems: (1) Anemia Status: Acute (2) Generalized weakness Status: Acute (3) Hyperkalemia Status: Acute Generalized weakness, multi-factorial. Renal failure on dialysis. DM Right leg wound Plan Treat medical diseases. Treat hypothyroidism per internal medicine. Wound care. Subjective no complaints Objective Vital Signs Date Time Temp Pulse Resp B/P (MAP) Pulse Ox O2 Delivery O2 Flow Rate FiO2 03/04/18 15:00 98.3 73 18 137/39 (71) 99 Room Air 98.3 03/03/18 15:55 2.0 Intake and Output 03/04/18 07:00 Intake Total 1080 ml Output Total 2 ml Balance 1078 ml Intake Oral 1080 ml Stool Total 2 ml # Voids 5 # Bowel Movements 1 PHYSICAL EXAM Alert. Oriented to time, place and person. PERRL. EOMI. CN: no focal findings. Muscle tone: normal. Muscle strength: 4+/5 DTR: 1+ Plantar reflex: flexor Gait: not examined in bed. Sensory exam: no abnormal findings. No cerebellar signs elicited. Review of Relevant I have reviewed the following items ashley (where applicable) has been applied. Labs Laboratory Tests Test 03/03/18 08:30 White Blood Count 7.4 x10^3/uL (4.0-11.0) Red Blood Count 2.51 x10^6/uL (3.50-5.40) Hemoglobin 7.6 g/dL (12.0-15.5) Hematocrit 23.5 % (36.0-47.0) Mean Corpuscular Volume 94 fL (79-100) Mean Corpuscular Hemoglobin 30 pg (25-35) Mean Corpuscular Hemoglobin Concent 32 g/dL (31-37) Red Cell Distribution Width 22.1 % (11.5-14.5) Platelet Count 173 x10^3/uL (140-400) Neutrophils (%) (Auto) 66 % (31-73) Lymphocytes (%) (Auto) 21 % (24-48) Monocytes (%) (Auto) 10 % (0-9) Eosinophils (%) (Auto) 3 % (0-3) Basophils (%) (Auto) 1 % (0-3) Neutrophils # (Auto) 4.9 x10^3uL (1.8-7.7) Lymphocytes # (Auto) 1.6 x10^3/uL (1.0-4.8) Monocytes # (Auto) 0.7 x10^3/uL (0.0-1.1) Eosinophils # (Auto) 0.2 x10^3/uL (0.0-0.7) Basophils # (Auto) 0.1 x10^3/uL (0.0-0.2) Sodium Level 143 mmol/L (136-145) Potassium Level 4.2 mmol/L (3.5-5.1) Chloride Level 104 mmol/L (98-107) Carbon Dioxide Level 28 mmol/L (21-32) Anion Gap 11 (6-14) Blood Urea Nitrogen 14 mg/dL (7-20) Creatinine 3.4 mg/dL (0.6-1.0) Estimated GFR (Cockcroft-Gault) 13.5 Glucose Level 68 mg/dL (70-99) Calcium Level 7.2 mg/dL (8.5-10.1) Microbiology 02/26/18 Anaerobic/Aerobic Culture - Final, Complete 02/26/18 Anaerobic Culture Result 1 (LUZ) - Final, Complete 02/26/18 Aerobic Culture - Final, Complete 02/26/18 Aerobic Culture Result 1 (LUZ) - Final, Complete 02/26/18 Aerobic Culture Result 2 (LUZ) - Final, Complete 02/26/18 Aerobic Culture Result 3 (LUZ) - Final, Complete 02/26/18 Antimicrobic Susceptibility - Final, Complete 02/26/18 Gram Stain - Final, Complete 02/26/18 Gram Stain Result 1 (LUZ) - Final, Complete 02/26/18 Gram Stain Result 2 (LUZ) - Final, Complete Medications Current Medications Sodium Bicarbonate (Sodium Bicarb Adult 8.4% Syr) 50 meq 1X ONCE IV Last administered on 02/25/18at 19:16; Start 02/25/18 at 19:00; Stop 02/25/18 at 19:01 ; Status DC Calcium Gluconate (Calcium Gluconate) 1,000 mg 1X ONCE IVP Last administered on 02/25/18at 19:07; Start 02/25/18 at 19:00; Stop 02/25/18 at 19:01; Status DC Dextrose (Dextrose 50%-Water Syringe) 25 gm 1X ONCE IV Last administered on at 19:14; Start 02/25/18 at 19:00; Stop 02/25/18 at 19:01; Status DC Insulin Human Regular (HumuLIN R VIAL) 10 unit 1X ONCE IV Last administered on 02/25/18at 19:13; Start 02/25/18 at 19:00; Stop 02/25/18 at 19:01; Status DC Albuterol Sulfate (Ventolin Neb Soln) 10 mg 1X ONCE CONT NEB ; Start 02/25/18 at 19:00; Stop 02/25/18 at 19:01; Status DC Ondansetron HCl (Zofran) 4 mg PRN Q8HRS PRN IV NAUSEA/VOMITING; Start 02/25/18 at 21:00; Stop 02/26/18 at 20:59; Status DC Aspirin (Ecotrin) 81 mg QHS PO Last administered on 03/03/18at 20:40; Start at 21:00 Carvedilol (Coreg) 3.125 mg BIDWMEALS PO Last administered on 03/03/18at 18:10 ; Start 02/26/18 at 08:00 Cinacalcet (Sensipar) 30 mg QHS PO Last administered on 03/03/18at 20:39; Start 02/26/18 at 21:00 Clopidogrel Bisulfate (Plavix) 75 mg QHS PO Last administered on 03/03/18at 20: 40; Start 02/26/18 at 21:00 Polyethylene Glycol (miraLAX PACKET) 17 gm PRN DAILY PRN PO CONSTIPATION 1ST CHOICE; Start 02/26/18 at 09:00 Vitamin B Complex/ Vitamin C (Alayna-Oneil) 1 tab DAILY PO Last administered on at 08:49; Start 02/26/18 at 09:00 Sodium Chloride 1,000 ml @ 1,000 mls/hr Q1H PRN IV hypotension; Start 02/26/18 at 13:42; Stop 02/26/18 at 19:41; Status DC Sodium Chloride 1,000 ml @ 400 mls/hr Q2H30M PRN IV PATENCY; Start 02/26/18 at 13:42; Stop 02/27/18 at 01:42; Status DC Info (PHARMACY MONITORING -- do not chart) 1 each PRN DAILY PRN MC SEE COMMENTS ; Start 02/26/18 at 13:45; Stop 02/27/18 at 15:54; Status DC Lidocaine HCl (Xylocaine-Mpf 2% Vial) 0.5 ml 1X STAT ID Last administered on 02/26/18at 14:58; Start 02/26/18 at 14:46; Stop 02/26/18 at 14:50; Status DC Tramadol HCl (Ultram) 50 mg PRN Q6HRS PRN PO MILD PAIN Last administered on 03/09at 18:03; Start 02/26/18 at 20:00 Sodium Chloride 1,000 ml @ 1,000 mls/hr Q1H PRN IV hypotension; Start 02/27/18 at 08:41; Stop 02/27/18 at 14:40; Status DC Sodium Chloride 1,000 ml @ 400 mls/hr Q2H30M PRN IV PATENCY; Start 02/27/18 at 08:41; Stop 02/27/18 at 20:40; Status DC Info (PHARMACY MONITORING -- do not chart) 1 each PRN DAILY PRN MC SEE COMMENTS ; Start 02/27/18 at 08:45; Status UNV Info (PHARMACY MONITORING -- do not chart) 1 each PRN DAILY PRN MC SEE COMMENTS ; Start 02/27/18 at 08:45; Stop 03/02/18 at 13:36; Status DC Lidocaine HCl (Xylocaine-Mpf 2% Vial) 2 ml 1X ONCE INJ ; Start 02/27/18 at 09: 00; Stop 02/27/18 at 09:01; Status DC Lidocaine HCl (Lidocaine Pf 2% Vial) 5 ml 1X ONCE IJ Last administered on 02/27at 09:00; Start 02/27/18 at 09:00; Stop 02/27/18 at 09:01; Status DC Alprazolam (Xanax) 0.25 mg PRN DAILY PRN PO ANXIETY / AGITATION Last administered on 03/03/18at 20:39; Start 02/27/18 at 09:15 Atorvastatin Calcium (Lipitor) 10 mg QHS PO Last administered on 03/03/18at 20: 39; Start 02/27/18 at 21:00 Gabapentin (Neurontin) 300 mg QHS PO Last administered on 03/03/18at 20:39; Start 02/27/18 at 21:00 Sertraline HCl (Zoloft) 50 mg QHS PO Last administered on 03/03/18at 20:40; Start 02/27/18 at 21:00 Acetaminophen/ Hydrocodone Bitart (Lortab 10/325) 1 tab PRN Q6HRS PRN PO PAIN; Start 02/27/18 at 09:30; Stop 02/27/18 at 09:30; Status DC Vancomycin HCl 2 gm/Sodium Chloride 500 ml @ 250 mls/hr 1X ONCE IV ; Start at 09:15; Stop 02/27/18 at 11:14; Status UNV Vancomycin HCl (Vanco Per Pharmacy) 1 each PRN DAILY PRN MC SEE COMMENTS Last administered on 03/04/18at 14:13; Start 02/27/18 at 09:15 Acetaminophen (Tylenol) 650 mg PRN Q6HRS PRN PO FEVER; Start 02/27/18 at 09:15 Ondansetron HCl (Zofran) 4 mg PRN Q6HRS PRN IV NAUSEA/VOMITING Last administered on 03/02/18at 23:30; Start 02/27/18 at 09:15 Docusate Sodium (Colace) 100 mg PRN DAILY PRN PO hard stools; Start 02/27/18 at 09:15 Heparin Sodium (Porcine) (Heparin Sodium) 5,000 unit Q8HRS SQ ; Start 02/27/18 at 14:00 Acetaminophen/ Hydrocodone Bitart (Lortab 10/325) 1 tab PRN Q6HRS PRN PO MODERATE PAIN Last administered on 03/04/18at 14:27; Start 02/27/18 at 09:30 Vancomycin HCl 1.75 gm/Sodium Chloride 500 ml @ 250 mls/hr 1X ONCE IV Last administered on 02/27/18at 18:40; Start 02/27/18 at 12:00; Stop 02/27/18 at 13:59 ; Status DC Piperacillin Sod/ Tazobactam Sod 2.25 gm/Sodium Chloride 50 ml @ 100 mls/hr Q8HRS IV Last administered on 03/03/18at 05:19; Start 02/27/18 at 15:00; Stop 03/03/18 at 15:00; Status DC Lactobacillus Rhamnosus (Culturelle) 1 cap BID PO Last administered on at 08:49; Start 02/28/18 at 09:00 Levothyroxine Sodium (Synthroid) 88 mcg DAILY06 PO Last administered on at 05:32; Start 02/28/18 at 14:30 Vancomycin HCl (Vancomycin Random Level) 1 each 1X ONCE MC ; Start 03/01/18 at 05:00; Stop 03/01/18 at 05:01; Status DC Vancomycin HCl 500 mg/Sodium Chloride 100 ml @ 100 mls/hr QTUTHSA IV Last administered on 03/02/18at 21:18; Start 03/02/18 at 16:00 Sodium Chloride 1,000 ml @ 1,000 mls/hr Q1H PRN IV hypotension; Start at 08:28; Stop 03/02/18 at 14:27; Status DC Albumin Human 200 ml @ 200 mls/hr 1X PRN PRN IV Hypotension; Start 03/02/18 at 08:30; Stop 03/02/18 at 14:29; Status DC Diphenhydramine HCl (Benadryl) 25 mg 1X PRN PRN IV ITCHING; Start 03/02/18 at 08:30; Stop 03/03/18 at 08:29; Status DC Diphenhydramine HCl (Benadryl) 25 mg 1X PRN PRN IV ITCHING; Start 03/02/18 at 08:30; Stop 03/03/18 at 08:29; Status DC Sodium Chloride 1,000 ml @ 400 mls/hr Q2H30M PRN IV PATENCY; Start 03/02/18 at 08:28; Stop 03/02/18 at 20:27; Status DC Info (PHARMACY MONITORING -- do not chart) 1 each PRN DAILY PRN MC SEE COMMENTS ; Start 03/02/18 at 08:30; Status UNV Info (PHARMACY MONITORING -- do not chart) 1 each PRN DAILY PRN MC SEE COMMENTS ; Start 03/02/18 at 08:30; Stop 03/04/18 at 14:03; Status DC Sodium Chloride 1,000 ml @ 1,000 mls/hr Q1H PRN IV hypotension; Start at 16:15; Stop 03/02/18 at 22:14; Status DC Sodium Chloride 1,000 ml @ 400 mls/hr Q2H30M PRN IV PATENCY; Start 03/02/18 at 16:15; Stop 03/03/18 at 04:14; Status DC Info (PHARMACY MONITORING -- do not chart) 1 each PRN DAILY PRN MC SEE COMMENTS ; Start 03/02/18 at 16:15; Status UNV Info (PHARMACY MONITORING -- do not chart) 1 each PRN DAILY PRN MC SEE COMMENTS ; Start 03/02/18 at 16:15; Status UNV Ceftriaxone Sodium (Rocephin) 1 gm Q24H IVP Last administered on 03/03/18at 18: 09; Start 03/03/18 at 16:00 Loperamide HCl (Imodium) 2 mg PRN Q4HRS PRN PO DIARRHEA Last administered on at 08:48; Start 03/03/18 at 15:15 Sodium Chloride 1,000 ml @ 1,000 mls/hr Q1H PRN IV hypotension; Start at 07:27; Stop 03/04/18 at 13:27; Status DC Albumin Human 200 ml @ 200 mls/hr 1X PRN PRN IV Hypotension; Start 03/04/18 at 07:30; Stop 03/04/18 at 13:29; Status DC Acetaminophen (Tylenol) 500 mg 1X PRN PRN PO MILD PAIN / TEMP; Start 03/04/18 at 07:30; Stop 03/05/18 at 07:29 Diphenhydramine HCl (Benadryl) 25 mg 1X PRN PRN IV ITCHING; Start 03/04/18 at 07:30; Stop 03/05/18 at 07:29 Diphenhydramine HCl (Benadryl) 25 mg 1X PRN PRN IV ITCHING; Start 03/04/18 at 07:30; Stop 03/05/18 at 07:29 Sodium Chloride 1,000 ml @ 400 mls/hr Q2H30M PRN IV PATENCY; Start 03/04/18 at 07:27; Stop 03/04/18 at 19:26 Info (PHARMACY MONITORING -- do not chart) 1 each PRN DAILY PRN MC SEE COMMENTS ; Start 03/04/18 at 07:30 Active Scripts Active FENTANYL 25mcg/hr (Fentanyl) 1 Each Patch.td72 1 Patch TD Q3DAYS 30 Days Atorvastatin Calcium 10 Mg Tablet 10 Mg PO QHS 30 Days Carvedilol (Carvedilol) 3.125 Mg Tablet 3.125 Mg PO BIDWMEALS Reported [place] 10-325 Tablet (Acetaminophen/Hydrocodone Bitart) 1 Each Tablet 1 Tab PO Q4 -6HRS Polyethylene Glycol 3350 17 Gm Powd.pack 17 Gm PO PRN DAILY PRN Sertraline Hcl 50 Mg Tablet 50 Mg PO QHS Sensipar (Cinacalcet Hcl) 30 Mg Tablet 1 Tab PO QHS Alayna-Oneil Rx Tablet (Vit B Cmplx 3/Fa/Vit C/Biotin) 1 Each Tablet 1 Each PO DAILY Cranberry Plus Vitamin C Sftgl (Cranberry Conc/Ascorbic Acid) 1 Each Capsule 1 Each PO QHS Alprazolam 0.25 Mg Tablet 1 Tab PO DAILY PRN Plavix (Clopidogrel Bisulfate) 75 Mg Tablet 75 Mg PO QHS Calcium Acetate 667 Mg Tablet 2 Tab PO TIDWMEALS Tylenol Extra Strength (Acetaminophen) 500 Mg Tablet 500 Mg PO PRN Q12HRS PRN Gabapentin (Gabapentin) 300 Mg Capsule 300 Mg PO QHS Benadryl Allergy (Diphenhydramine Hcl) 25 Mg Tablet 25 Mg PO PRN not given in the hospital Aspir 81 (Aspirin) 81 Mg Tablet.dr 81 Mg PO QHS Vitals/I & O Vital Sign - Last 24 Hours 03/03/18 03/03/18 03/03/18 03/03/18 18:03 18:10 19:00 19:03 Temp 97.8 97.8 Pulse 62 63 Resp 20 17 18 B/P (MAP) 104/42 106/32 (56) Pulse Ox 100 98 100 O2 Delivery Room Air Room Air Room Air 03/03/18 03/03/18 03/03/18 03/04/18 20:00 20:39 23:00 03:00 Temp 97.7 97.7 97.7 97.7 Pulse 60 62 Resp 18 17 17 B/P (MAP) 110/36 (60) 103/42 (62) Pulse Ox 100 98 97 O2 Delivery Room Air Room Air Room Air Room Air 03/04/18 03/04/18 03/04/18 03/04/18 03:52 04:52 07:00 08:00 Temp 97.5 97.5 Pulse 60 60 Resp 18 18 18 B/P (MAP) 101/45 (63) 101/45 Pulse Ox 98 98 99 O2 Delivery Room Air Room Air Room Air 03/04/18 03/04/18 03/04/18 11:00 14:27 15:00 Temp 98.2 98.3 98.2 98.3 Pulse 61 73 Resp 18 18 B/P (MAP) 125/42 (69) 137/39 (71) Pulse Ox 100 99 O2 Delivery Room Air Room Air Room Air Intake and Output 03/03/18 03/03/18 03/04/18 15:00 23:00 07:00 Intake Total 200 ml 640 ml 240 ml Output Total 2 ml Balance 198 ml 640 ml 240 ml JENNIFER CANSA MD Mar 04, 2018 16:46
[2018-03-04] MEDS: cefTRIAXone IV Push 1 GM VIAL. IVP SCH (17:02)
[2018-03-04] MEDS: VANCOMYCIN 500 MG in IV NORMAL SALINE 100ML 100 ML IV SCH (17:07)
[2018-03-04 17:18] LABS: BASO # 0.1 x10^3/uL (0.0-0.2); BASO % 1 % (0-3); EOS # 0.1 x10^3/uL (0.0-0.7); EOS % 3 % (0-3); LYMPH # 1.2 x10^3/uL (1.0-4.8); LYMPH % 21 % (24-48); MEAN CORPUSCULAR HEMOGLOBIN 31 pg (25-35); MEAN CORPUSCULAR HGB CONC 33 g/dL (31-37); MEAN CORPUSCULAR VOLUME 95 fL (79-100); MONO # 0.5 x10^3/uL (0.0-1.1); MONO % 9 % (0-9); NEUT # 3.9 x10^3uL (1.8-7.7); NEUT % 67 % (31-73); PLATELET COUNT 142 x10^3/uL (140-400); RED BLOOD COUNT 2.16 x10^6/uL (3.50-5.40); WHITE BLOOD COUNT 5.8 x10^3/uL (4.0-11.0)
[2018-03-04 17:23] LABS: HEMATOCRIT 20.4 % (36.0-47.0); HEMOGLOBIN 6.7 g/dL (12.0-15.5)
[2018-03-04 17:24] LABS: CALCIUM 6.2 mg/dL (8.5-10.1); CREATININE 4.2 mg/dL (0.6-1.0); GFR 10.6; POTASSIUM 4.2 mmol/L (3.5-5.1)
[2018-03-04 19:00] VITALS: BP 110/53
--- NOTE | 2018-03-04 20:53 | PDOC ---
PROGRESS NOTES Chief Complaint Chief Complaint ESRD on HD TuThSa rt leg unhealing wound s/p wound vac Hyperkalemia rt hand weakness, need to rule out stroke Generalized weakness Anemia chronic, with ESRD NONCOMPLIANCE, REFUSES HD SOMETIMES Tobacco abuse disorder fluid overload severe protein-caloric malnutrition DIABETES HTN PPMICD PAD Atherosclerosis with ulceration of the right lower extremity--the patient would like to proceed with medical therapy and attempted limb salvage. pain medication overuse, leading to excess sedation and memory loss plan: vascular , good candidate for sx months ago.angiogram, defer to vascular id consult added vanco for now, wound c+ gram + cocci cont some home meds, bp lower side, on coreg low dose on asa, lipitor., will get MRI To rule out stroke, neuro consult resume pain meds, add lortab 10mg q6h prn, cont tramadol. hold fentanyl patch fu with renal, need HD, agrees wit dialysis plan for now PTOT dvt ppx History of Present Illness History of Present Illness Admitted with poorly healing anterior tibial wound of RLE. ROS: no fever, chills, sob or chest pain c/o rt hand weakness, cannot hold glass, strength 4/5, left side 5/5 - seen by neuro, MRI 03/02/18 no acute CVA She wants to eat, refused supplements in the past. T3 and T4 returned low, stated on 88mcg synthroid. Wound culture back positive, however wound vac has been placed back on wound. The culture is MRSA, GBS and enterococcus - resistant to clindamycin and tetracycline. Seen by ID. She c/o diarrhea today and is refusing multiple treatments including dialysis due to her discomfort with her BM. plan: wound vac removal and ?replacement - with MRSA this would not be advisable to replace the wound vac, will d/w ID Antibiotics per ID - vanco + rocephin ok for now for 4-6 weeks Discharge planning, will need care for wound, etc. Needs to go to LT[facility] Vitals Vitals Vital Signs Date Time Temp Pulse Resp B/P (MAP) Pulse Ox O2 Delivery O2 Flow Rate FiO2 03/04/18 20:00 Room Air 03/04/18 19:00 98.4 69 20 110/53 (72) 100 98.4 03/04/18 08:00 2.0 Physical Exam Physical Exam GENERAL: Sitting in the chair, alert, social, eating a large plate of take out telugu food LUNGS: Clear to auscultation. HEART: S1 and S2. AICD. ABDOMEN: Soft and nontender. Bowel sounds present. EXTREMITIES: Right lower extremity 1+ edema. leg wounds bandaged SKIN: Warm without rash. LUE-AV fistula NEUROLOGICAL: Alert and oriented x 3. RUE-midline, clean General: Alert, Oriented X3, Cooperative, mild distress Heart: Regular rate, Normal S1, Normal S2 Lungs: Clear, Other Abdomen: Normal bowel sounds, Soft, No tenderness Extremities: No cyanosis, Other (right ankle wound bandaged deep soft tissue infection) Labs LABS Laboratory Tests Test 03/04/18 17:00 White Blood Count 5.8 x10^3/uL (4.0-11.0) Red Blood Count 2.16 x10^6/uL (3.50-5.40) Hemoglobin 6.7 g/dL (12.0-15.5) Hematocrit 20.4 % (36.0-47.0) Mean Corpuscular Volume 95 fL (79-100) Mean Corpuscular Hemoglobin 31 pg (25-35) Mean Corpuscular Hemoglobin Concent 33 g/dL (31-37) Red Cell Distribution Width 21.0 % (11.5-14.5) Platelet Count 142 x10^3/uL (140-400) Neutrophils (%) (Auto) 67 % (31-73) Lymphocytes (%) (Auto) 21 % (24-48) Monocytes (%) (Auto) 9 % (0-9) Eosinophils (%) (Auto) 3 % (0-3) Basophils (%) (Auto) 1 % (0-3) Neutrophils # (Auto) 3.9 x10^3uL (1.8-7.7) Lymphocytes # (Auto) 1.2 x10^3/uL (1.0-4.8) Monocytes # (Auto) 0.5 x10^3/uL (0.0-1.1) Eosinophils # (Auto) 0.1 x10^3/uL (0.0-0.7) Basophils # (Auto) 0.1 x10^3/uL (0.0-0.2) Sodium Level 142 mmol/L (136-145) Potassium Level 4.2 mmol/L (3.5-5.1) Chloride Level 106 mmol/L (98-107) Carbon Dioxide Level 30 mmol/L (21-32) Anion Gap 6 (6-14) Blood Urea Nitrogen 17 mg/dL (7-20) Creatinine 4.2 mg/dL (0.6-1.0) Estimated GFR (Cockcroft-Gault) 10.6 Glucose Level 148 mg/dL (70-99) Calcium Level 6.2 mg/dL (8.5-10.1) Assessment and Plan Assessmemt and Plan Problems Medical Problems: (1) Anemia Status: Acute (2) Generalized weakness Status: Acute (3) Hyperkalemia Status: Acute Comment Review of Relevant I have reviewed the following items ashley (where applicable) has been applied. Labs Laboratory Tests Test 03/03/18 08:30 03/04/18 17:00 White Blood Count 7.4 x10^3/uL (4.0-11.0) 5.8 x10^3/uL (4.0-11.0) Red Blood Count 2.51 x10^6/uL (3.50-5.40) 2.16 x10^6/uL (3.50-5.40) Hemoglobin 7.6 g/dL (12.0-15.5) 6.7 g/dL (12.0-15.5) Hematocrit 23.5 % (36.0-47.0) 20.4 % (36.0-47.0) Mean Corpuscular Volume 94 fL (79-100) 95 fL (79-100) Mean Corpuscular Hemoglobin 30 pg (25-35) 31 pg (25-35) Mean Corpuscular Hemoglobin Concent 32 g/dL (31-37) 33 g/dL (31-37) Red Cell Distribution Width 22.1 % (11.5-14.5) 21.0 % (11.5-14.5) Platelet Count 173 x10^3/uL (140-400) 142 x10^3/uL (140-400) Neutrophils (%) (Auto) 66 % (31-73) 67 % (31-73) Lymphocytes (%) (Auto) 21 % (24-48) 21 % (24-48) Monocytes (%) (Auto) 10 % (0-9) 9 % (0-9) Eosinophils (%) (Auto) 3 % (0-3) 3 % (0-3) Basophils (%) (Auto) 1 % (0-3) 1 % (0-3) Neutrophils # (Auto) 4.9 x10^3uL (1.8-7.7) 3.9 x10^3uL (1.8-7.7) Lymphocytes # (Auto) 1.6 x10^3/uL (1.0-4.8) 1.2 x10^3/uL (1.0-4.8) Monocytes # (Auto) 0.7 x10^3/uL (0.0-1.1) 0.5 x10^3/uL (0.0-1.1) Eosinophils # (Auto) 0.2 x10^3/uL (0.0-0.7) 0.1 x10^3/uL (0.0-0.7) Basophils # (Auto) 0.1 x10^3/uL (0.0-0.2) 0.1 x10^3/uL (0.0-0.2) Sodium Level 143 mmol/L (136-145) 142 mmol/L (136-145) Potassium Level 4.2 mmol/L (3.5-5.1) 4.2 mmol/L (3.5-5.1) Chloride Level 104 mmol/L (98-107) 106 mmol/L (98-107) Carbon Dioxide Level 28 mmol/L (21-32) 30 mmol/L (21-32) Anion Gap 11 (6-14) 6 (6-14) Blood Urea Nitrogen 14 mg/dL (7-20) 17 mg/dL (7-20) Creatinine 3.4 mg/dL (0.6-1.0) 4.2 mg/dL (0.6-1.0) Estimated GFR (Cockcroft-Gault) 13.5 10.6 Glucose Level 68 mg/dL (70-99) 148 mg/dL (70-99) Calcium Level 7.2 mg/dL (8.5-10.1) 6.2 mg/dL (8.5-10.1) Laboratory Tests Test 03/04/18 17:00 White Blood Count 5.8 x10^3/uL (4.0-11.0) Red Blood Count 2.16 x10^6/uL (3.50-5.40) Hemoglobin 6.7 g/dL (12.0-15.5) Hematocrit 20.4 % (36.0-47.0) Mean Corpuscular Volume 95 fL (79-100) Mean Corpuscular Hemoglobin 31 pg (25-35) Mean Corpuscular Hemoglobin Concent 33 g/dL (31-37) Red Cell Distribution Width 21.0 % (11.5-14.5) Platelet Count 142 x10^3/uL (140-400) Neutrophils (%) (Auto) 67 % (31-73) Lymphocytes (%) (Auto) 21 % (24-48) Monocytes (%) (Auto) 9 % (0-9) Eosinophils (%) (Auto) 3 % (0-3) Basophils (%) (Auto) 1 % (0-3) Neutrophils # (Auto) 3.9 x10^3uL (1.8-7.7) Lymphocytes # (Auto) 1.2 x10^3/uL (1.0-4.8) Monocytes # (Auto) 0.5 x10^3/uL (0.0-1.1) Eosinophils # (Auto) 0.1 x10^3/uL (0.0-0.7) Basophils # (Auto) 0.1 x10^3/uL (0.0-0.2) Sodium Level 142 mmol/L (136-145) Potassium Level 4.2 mmol/L (3.5-5.1) Chloride Level 106 mmol/L (98-107) Carbon Dioxide Level 30 mmol/L (21-32) Anion Gap 6 (6-14) Blood Urea Nitrogen 17 mg/dL (7-20) Creatinine 4.2 mg/dL (0.6-1.0) Estimated GFR (Cockcroft-Gault) 10.6 Glucose Level 148 mg/dL (70-99) Calcium Level 6.2 mg/dL (8.5-10.1) Microbiology 02/26/18 Anaerobic/Aerobic Culture - Final, Complete 02/26/18 Anaerobic Culture Result 1 (LUZ) - Final, Complete 02/26/18 Aerobic Culture - Final, Complete 02/26/18 Aerobic Culture Result 1 (LUZ) - Final, Complete 02/26/18 Aerobic Culture Result 2 (LUZ) - Final, Complete 02/26/18 Aerobic Culture Result 3 (LUZ) - Final, Complete 02/26/18 Antimicrobic Susceptibility - Final, Complete 02/26/18 Gram Stain - Final, Complete 02/26/18 Gram Stain Result 1 (LZU) - Final, Complete 02/26/18 Gram Stain Result 2 (LUZ) - Final, Complete Medications Current Medications Sodium Bicarbonate (Sodium Bicarb Adult 8.4% Syr) 50 meq 1X ONCE IV Last administered on 02/25/18at 19:16; Start 02/25/18 at 19:00; Stop 02/25/18 at 19:01 ; Status DC Calcium Gluconate (Calcium Gluconate) 1,000 mg 1X ONCE IVP Last administered on 02/25/18at 19:07; Start 02/25/18 at 19:00; Stop 02/25/18 at 19:01; Status DC Dextrose (Dextrose 50%-Water Syringe) 25 gm 1X ONCE IV Last administered on at 19:14; Start 02/25/18 at 19:00; Stop 02/25/18 at 19:01; Status DC Insulin Human Regular (HumuLIN R VIAL) 10 unit 1X ONCE IV Last administered on 02/25/18at 19:13; Start 02/25/18 at 19:00; Stop 02/25/18 at 19:01; Status DC Albuterol Sulfate (Ventolin Neb Soln) 10 mg 1X ONCE CONT NEB ; Start 02/25/18 at 19:00; Stop 02/25/18 at 19:01; Status DC Ondansetron HCl (Zofran) 4 mg PRN Q8HRS PRN IV NAUSEA/VOMITING; Start 02/25/18 at 21:00; Stop 02/26/18 at 20:59; Status DC Aspirin (Ecotrin) 81 mg QHS PO Last administered on 03/03/18at 20:40; Start at 21:00 Carvedilol (Coreg) 3.125 mg BIDWMEALS PO Last administered on 03/04/18 17:06 ; Start 02/26/18 at 08:00 Cinacalcet (Sensipar) 30 mg QHS PO Last administered on 03/03/18at 20:39; Start 02/26/18 at 21:00 Clopidogrel Bisulfate (Plavix) 75 mg QHS PO Last administered on 03/03/18at 20: 40; Start 02/26/18 at 21:00 Polyethylene Glycol (miraLAX PACKET) 17 gm PRN DAILY PRN PO CONSTIPATION 1ST CHOICE; Start 02/26/18 at 09:00 Vitamin B Complex/ Vitamin C (Alayna-Oneil) 1 tab DAILY PO Last administered on at 08:49; Start 02/26/18 at 09:00 Sodium Chloride 1,000 ml @ 1,000 mls/hr Q1H PRN IV hypotension; Start 02/26/18 at 13:42; Stop 02/26/18 at 19:41; Status DC Sodium Chloride 1,000 ml @ 400 mls/hr Q2H30M PRN IV PATENCY; Start 02/26/18 at 13:42; Stop 02/27/18 at 01:42; Status DC Info (PHARMACY MONITORING -- do not chart) 1 each PRN DAILY PRN MC SEE COMMENTS ; Start 02/26/18 at 13:45; Stop 02/27/18 at 15:54; Status DC Lidocaine HCl (Xylocaine-Mpf 2% Vial) 0.5 ml 1X STAT ID Last administered on 02/26/18at 14:58; Start 02/26/18 at 14:46; Stop 02/26/18 at 14:50; Status DC Tramadol HCl (Ultram) 50 mg PRN Q6HRS PRN PO MILD PAIN Last administered on 03/09at 18:03; Start 02/26/18 at 20:00 Sodium Chloride 1,000 ml @ 1,000 mls/hr Q1H PRN IV hypotension; Start 02/27/18 at 08:41; Stop 02/27/18 at 14:40; Status DC Sodium Chloride 1,000 ml @ 400 mls/hr Q2H30M PRN IV PATENCY; Start 02/27/18 at 08:41; Stop 02/27/18 at 20:40; Status DC Info (PHARMACY MONITORING -- do not chart) 1 each PRN DAILY PRN MC SEE COMMENTS ; Start 02/27/18 at 08:45; Status UNV Info (PHARMACY MONITORING -- do not chart) 1 each PRN DAILY PRN MC SEE COMMENTS ; Start 02/27/18 at 08:45; Stop 03/02/18 at 13:36; Status DC Lidocaine HCl (Xylocaine-Mpf 2% Vial) 2 ml 1X ONCE INJ ; Start 02/27/18 at 09: 00; Stop 02/27/18 at 09:01; Status DC Lidocaine HCl (Lidocaine Pf 2% Vial) 5 ml 1X ONCE IJ Last administered on 02/27at 09:00; Start 02/27/18 at 09:00; Stop 02/27/18 at 09:01; Status DC Alprazolam (Xanax) 0.25 mg PRN DAILY PRN PO ANXIETY / AGITATION Last administered on 03/03/18at 20:39; Start 02/27/18 at 09:15 Atorvastatin Calcium (Lipitor) 10 mg QHS PO Last administered on 03/03/18at 20: 39; Start 02/27/18 at 21:00 Gabapentin (Neurontin) 300 mg QHS PO Last administered on 03/03/18at 20:39; Start 02/27/18 at 21:00 Sertraline HCl (Zoloft) 50 mg QHS PO Last administered on 03/03/18at 20:40; Start 02/27/18 at 21:00 Acetaminophen/ Hydrocodone Bitart (Lortab 10/325) 1 tab PRN Q6HRS PRN PO PAIN; Start 02/27/18 at 09:30; Stop 02/27/18 at 09:30; Status DC Vancomycin HCl 2 gm/Sodium Chloride 500 ml @ 250 mls/hr 1X ONCE IV ; Start at 09:15; Stop 02/27/18 at 11:14; Status UNV Vancomycin HCl (Vanco Per Pharmacy) 1 each PRN DAILY PRN MC SEE COMMENTS Last administered on 03/04/18at 14:13; Start 02/27/18 at 09:15 Acetaminophen (Tylenol) 650 mg PRN Q6HRS PRN PO FEVER; Start 02/27/18 at 09:15 Ondansetron HCl (Zofran) 4 mg PRN Q6HRS PRN IV NAUSEA/VOMITING Last administered on 03/02/18at 23:30; Start 02/27/18 at 09:15 Docusate Sodium (Colace) 100 mg PRN DAILY PRN PO hard stools; Start 02/27/18 at 09:15 Heparin Sodium (Porcine) (Heparin Sodium) 5,000 unit Q8HRS SQ ; Start 02/27/18 at 14:00 Acetaminophen/ Hydrocodone Bitart (Lortab 10/325) 1 tab PRN Q6HRS PRN PO MODERATE PAIN Last administered on 03/04/18at 14:27; Start 02/27/18 at 09:30 Vancomycin HCl 1.75 gm/Sodium Chloride 500 ml @ 250 mls/hr 1X ONCE IV Last administered on 02/27/18at 18:40; Start 02/27/18 at 12:00; Stop 02/27/18 at 13:59 ; Status DC Piperacillin Sod/ Tazobactam Sod 2.25 gm/Sodium Chloride 50 ml @ 100 mls/hr Q8HRS IV Last administered on 03/03/18at 05:19; Start 02/27/18 at 15:00; Stop 03/03/18 at 15:00; Status DC Lactobacillus Rhamnosus (Culturelle) 1 cap BID PO Last administered on at 08:49; Start 02/28/18 at 09:00 Levothyroxine Sodium (Synthroid) 88 mcg DAILY06 PO Last administered on at 05:32; Start 02/28/18 at 14:30 Vancomycin HCl (Vancomycin Random Level) 1 each 1X ONCE MC ; Start 03/01/18 at 05:00; Stop 03/01/18 at 05:01; Status DC Vancomycin HCl 500 mg/Sodium Chloride 100 ml @ 100 mls/hr QTUTHSA IV Last administered on 03/04/18at 17:07; Start 03/02/18 at 16:00 Sodium Chloride 1,000 ml @ 1,000 mls/hr Q1H PRN IV hypotension; Start at 08:28; Stop 03/02/18 at 14:27; Status DC Albumin Human 200 ml @ 200 mls/hr 1X PRN PRN IV Hypotension; Start 03/02/18 at 08:30; Stop 03/02/18 at 14:29; Status DC Diphenhydramine HCl (Benadryl) 25 mg 1X PRN PRN IV ITCHING; Start 03/02/18 at 08:30; Stop 03/03/18 at 08:29; Status DC Diphenhydramine HCl (Benadryl) 25 mg 1X PRN PRN IV ITCHING; Start 03/02/18 at 08:30; Stop 03/03/18 at 08:29; Status DC Sodium Chloride 1,000 ml @ 400 mls/hr Q2H30M PRN IV PATENCY; Start 03/02/18 at 08:28; Stop 03/02/18 at 20:27; Status DC Info (PHARMACY MONITORING -- do not chart) 1 each PRN DAILY PRN MC SEE COMMENTS ; Start 03/02/18 at 08:30; Status UNV Info (PHARMACY MONITORING -- do not chart) 1 each PRN DAILY PRN MC SEE COMMENTS ; Start 03/02/18 at 08:30; Stop 03/04/18 at 14:03; Status DC Sodium Chloride 1,000 ml @ 1,000 mls/hr Q1H PRN IV hypotension; Start at 16:15; Stop 03/02/18 at 22:14; Status DC Sodium Chloride 1,000 ml @ 400 mls/hr Q2H30M PRN IV PATENCY; Start 03/02/18 at 16:15; Stop 03/03/18 at 04:14; Status DC Info (PHARMACY MONITORING -- do not chart) 1 each PRN DAILY PRN MC SEE COMMENTS ; Start 03/02/18 at 16:15; Status UNV Info (PHARMACY MONITORING -- do not chart) 1 each PRN DAILY PRN MC SEE COMMENTS ; Start 03/02/18 at 16:15; Status UNV Ceftriaxone Sodium (Rocephin) 1 gm Q24H IVP Last administered on 03/04/18at 17: 02; Start 03/03/18 at 16:00 Loperamide HCl (Imodium) 2 mg PRN Q4HRS PRN PO DIARRHEA Last administered on at 08:48; Start 03/03/18 at 15:15 Sodium Chloride 1,000 ml @ 1,000 mls/hr Q1H PRN IV hypotension; Start at 07:27; Stop 03/04/18 at 13:27; Status DC Albumin Human 200 ml @ 200 mls/hr 1X PRN PRN IV Hypotension; Start 03/04/18 at 07:30; Stop 03/04/18 at 13:29; Status DC Acetaminophen (Tylenol) 500 mg 1X PRN PRN PO MILD PAIN / TEMP; Start 03/04/18 at 07:30; Stop 03/05/18 at 07:29 Diphenhydramine HCl (Benadryl) 25 mg 1X PRN PRN IV ITCHING; Start 03/04/18 at 07:30; Stop 03/05/18 at 07:29 Diphenhydramine HCl (Benadryl) 25 mg 1X PRN PRN IV ITCHING; Start 03/04/18 at 07:30; Stop 03/05/18 at 07:29 Sodium Chloride 1,000 ml @ 400 mls/hr Q2H30M PRN IV PATENCY; Start 03/04/18 at 07:27; Stop 03/04/18 at 19:26; Status DC Info (PHARMACY MONITORING -- do not chart) 1 each PRN DAILY PRN MC SEE COMMENTS ; Start 03/04/18 at 07:30 Active Scripts Active FENTANYL 25mcg/hr (Fentanyl) 1 Each Patch.td72 1 Patch TD Q3DAYS 30 Days Atorvastatin Calcium 10 Mg Tablet 10 Mg PO QHS 30 Days Carvedilol (Carvedilol) 3.125 Mg Tablet 3.125 Mg PO BIDWMEALS Reported [place] 10-325 Tablet (Acetaminophen/Hydrocodone Bitart) 1 Each Tablet 1 Tab PO Q4 -6HRS Polyethylene Glycol 3350 17 Gm Powd.pack 17 Gm PO PRN DAILY PRN Sertraline Hcl 50 Mg Tablet 50 Mg PO QHS Sensipar (Cinacalcet Hcl) 30 Mg Tablet 1 Tab PO QHS Alayna-Oneil Rx Tablet (Vit B Cmplx 3/Fa/Vit C/Biotin) 1 Each Tablet 1 Each PO DAILY Cranberry Plus Vitamin C Sftgl (Cranberry Conc/Ascorbic Acid) 1 Each Capsule 1 Each PO QHS Alprazolam 0.25 Mg Tablet 1 Tab PO DAILY PRN Plavix (Clopidogrel Bisulfate) 75 Mg Tablet 75 Mg PO QHS Calcium Acetate 667 Mg Tablet 2 Tab PO TIDWMEALS Tylenol Extra Strength (Acetaminophen) 500 Mg Tablet 500 Mg PO PRN Q12HRS PRN Gabapentin (Gabapentin) 300 Mg Capsule 300 Mg PO QHS Benadryl Allergy (Diphenhydramine Hcl) 25 Mg Tablet 25 Mg PO PRN not given in the hospital Aspir 81 (Aspirin) 81 Mg Tablet.dr 81 Mg PO QHS Vitals/I & O Vital Sign - Last 24 Hours 03/03/18 03/04/18 03/04/18 03/04/18 23:00 03:00 03:52 04:52 Temp 97.7 97.7 97.7 97.7 Pulse 60 62 Resp 17 17 18 18 B/P (MAP) 110/36 (60) 103/42 (62) Pulse Ox 98 97 98 98 O2 Delivery Room Air Room Air Room Air 03/04/18 03/04/18 03/04/18 03/04/18 07:00 08:00 08:00 11:00 Temp 97.5 98.2 97.5 98.2 Pulse 60 60 61 Resp 18 18 B/P (MAP) 101/45 (63) 101/45 125/42 (69) Pulse Ox 99 100 O2 Delivery Room Air Room Air Room Air O2 Flow Rate 2.0 03/04/18 03/04/18 03/04/18 03/04/18 14:27 15:00 17:06 17:07 Temp 98.3 98.3 Pulse 73 73 Resp 18 B/P (MAP) 137/39 (71) 169/76 Pulse Ox 99 O2 Delivery Room Air Room Air Room Air 03/04/18 03/04/18 19:00 20:00 Temp 98.4 98.4 Pulse 69 Resp 20 B/P (MAP) 110/53 (72) Pulse Ox 100 O2 Delivery Room Air Room Air Intake and Output 03/03/18 03/03/18 03/04/18 15:00 23:00 07:00 Intake Total 200 ml 640 ml 240 ml Output Total 2 ml Balance 198 ml 640 ml 240 ml SHARRON SMITH MD Mar 04, 2018 20:52
[2018-03-04] MEDS: CLOPIDOGREL BISULFATE 75 MG TABLET PO SCH (21:14)
[2018-03-04] MEDS: CINACALCET HCL 30 MG TABLET PO SCH (21:14)
[2018-03-04] MEDS: ATORVASTATIN CALCIUM 10 MG TABLET. PO SCH (21:14)
[2018-03-04] MEDS: SERTRALINE 50 MG TABLET. PO SCH (21:14)
[2018-03-04] MEDS: ASPIRIN ENTERIC COATED 81 MG TABLET.DR. PO SCH (21:14)
[2018-03-04] MEDS: GABAPENTIN 300 MG CAPSULE. PO SCH (21:15)
[2018-03-04 23:02] VITALS: BP 111/38
[2018-03-05 03:02] VITALS: BP 126/49
[2018-03-05] MEDS: HYDROcodone/APAP 10/325 1 TAB TABLET PO PRN ×2 (04:08→11:48)
[2018-03-05] MEDS: HEPARIN for SUB-Q USE 5,000 UNIT/ML VIAL. SQ SCH (05:46)
[2018-03-05] MEDS: LEVOTHYROXINE 88 MCG TABLET PO SCH (05:52)
[2018-03-05 06:50] LABS: BASO # 0.1 x10^3/uL (0.0-0.2); BASO % 1 % (0-3); EOS # 0.3 x10^3/uL (0.0-0.7); EOS % 3 % (0-3); HEMATOCRIT 22.9 % (36.0-47.0); HEMOGLOBIN 7.3 g/dL (12.0-15.5); LYMPH # 1.7 x10^3/uL (1.0-4.8); LYMPH % 22 % (24-48); MEAN CORPUSCULAR HEMOGLOBIN 30 pg (25-35); MEAN CORPUSCULAR HGB CONC 32 g/dL (31-37); MEAN CORPUSCULAR VOLUME 94 fL (79-100); MONO # 0.6 x10^3/uL (0.0-1.1); MONO % 8 % (0-9); NEUT % 65 % (31-73); PLATELET COUNT 169 x10^3/uL (140-400); RED BLOOD COUNT 2.45 x10^6/uL (3.50-5.40); WHITE BLOOD COUNT 7.7 x10^3/uL (4.0-11.0)
[2018-03-05 07:00] VITALS: BP 121/47
[2018-03-05 07:04] LABS: CALCIUM 6.8 mg/dL (8.5-10.1); CREATININE 4.9 mg/dL (0.6-1.0); GFR 8.8; POTASSIUM 4.5 mmol/L (3.5-5.1)
[2018-03-05] MEDS: LOPERAMIDE 2 MG CAPSULE PO PRN (09:30)
[2018-03-05] MEDS: FOLIC/VIT B COMP W-C (RENAL) TABLET. PO SCH (09:30)
[2018-03-05] MEDS: LACTOBACILLUS RHAMNOSUS GG 1 CAPSULE. PO SCH (09:30)
[2018-03-05] MEDS: CARVEDILOL 3.125 MG TABLET. PO SCH (09:30)
[2018-03-05 11:00] VITALS: BP 118/35
--- NOTE | 2018-03-05 11:51 | PDOC ---
Renal-Progress Notes Subjective Notes Notes DIARRHEA History of Present Illness Hx of present illness STABLE Vitals Vitals Vital Signs Date Time Temp Pulse Resp B/P (MAP) Pulse Ox O2 Delivery O2 Flow Rate FiO2 03/05/18 11:48 100 Room Air 2.0 03/05/18 11:00 98.4 63 18 118/35 (62) 98.4 Weight Weight [ ] I.O. Intake and Output Intake and Output 03/05/18 07:00 Intake Total 980 ml Balance 980 ml Intake Oral 880 ml IV Total 100 ml # Voids 1 Labs Labs Laboratory Tests Test 03/04/18 17:00 03/05/18 06:30 White Blood Count 5.8 x10^3/uL (4.0-11.0) 7.7 x10^3/uL (4.0-11.0) Red Blood Count 2.16 x10^6/uL (3.50-5.40) 2.45 x10^6/uL (3.50-5.40) Hemoglobin 6.7 g/dL (12.0-15.5) 7.3 g/dL (12.0-15.5) Hematocrit 20.4 % (36.0-47.0) 22.9 % (36.0-47.0) Mean Corpuscular Volume 95 fL (79-100) 94 fL (79-100) Mean Corpuscular Hemoglobin 31 pg (25-35) 30 pg (25-35) Mean Corpuscular Hemoglobin Concent 33 g/dL (31-37) 32 g/dL (31-37) Red Cell Distribution Width 21.0 % (11.5-14.5) 21.0 % (11.5-14.5) Platelet Count 142 x10^3/uL (140-400) 169 x10^3/uL (140-400) Neutrophils (%) (Auto) 67 % (31-73) 65 % (31-73) Lymphocytes (%) (Auto) 21 % (24-48) 22 % (24-48) Monocytes (%) (Auto) 9 % (0-9) 8 % (0-9) Eosinophils (%) (Auto) 3 % (0-3) 3 % (0-3) Basophils (%) (Auto) 1 % (0-3) 1 % (0-3) Neutrophils # (Auto) 3.9 x10^3uL (1.8-7.7) 5.0 x10^3uL (1.8-7.7) Lymphocytes # (Auto) 1.2 x10^3/uL (1.0-4.8) 1.7 x10^3/uL (1.0-4.8) Monocytes # (Auto) 0.5 x10^3/uL (0.0-1.1) 0.6 x10^3/uL (0.0-1.1) Eosinophils # (Auto) 0.1 x10^3/uL (0.0-0.7) 0.3 x10^3/uL (0.0-0.7) Basophils # (Auto) 0.1 x10^3/uL (0.0-0.2) 0.1 x10^3/uL (0.0-0.2) Sodium Level 142 mmol/L (136-145) 142 mmol/L (136-145) Potassium Level 4.2 mmol/L (3.5-5.1) 4.5 mmol/L (3.5-5.1) Chloride Level 106 mmol/L (98-107) 104 mmol/L (98-107) Carbon Dioxide Level 30 mmol/L (21-32) 31 mmol/L (21-32) Anion Gap 6 (6-14) 7 (6-14) Blood Urea Nitrogen 17 mg/dL (7-20) 19 mg/dL (7-20) Creatinine 4.2 mg/dL (0.6-1.0) 4.9 mg/dL (0.6-1.0) Estimated GFR (Cockcroft-Gault) 10.6 8.8 Glucose Level 148 mg/dL (70-99) 83 mg/dL (70-99) Calcium Level 6.2 mg/dL (8.5-10.1) 6.8 mg/dL (8.5-10.1) Micro Micro Microbiology 02/26/18 Anaerobic/Aerobic Culture - Final, Complete 02/26/18 Anaerobic Culture Result 1 (LUZ) - Final, Complete 02/26/18 Aerobic Culture - Final, Complete 02/26/18 Aerobic Culture Result 1 (LUZ) - Final, Complete 02/26/18 Aerobic Culture Result 2 (LUZ) - Final, Complete 02/26/18 Aerobic Culture Result 3 (LUZ) - Final, Complete 02/26/18 Antimicrobic Susceptibility - Final, Complete 02/26/18 Gram Stain - Final, Complete 02/26/18 Gram Stain Result 1 (LUZ) - Final, Complete 02/26/18 Gram Stain Result 2 (LUZ) - Final, Complete Review of Systems Constitutional: yes: weakness, alert Ears/Nose/Throat: Yes: no symptom reported Eyes: Yes: no symptom reported Pulmonary: Yes no symptom reported Cardiovascular: Yes no symptom reported Gastrointestional: Yes: no symptom reported Genitourinary: Yes: no symptom reported Musculoskeletal: Yes: no symptom reported Skin: Yes no symptom reported Psychiatric/Neurological: Yes: no symptom reported Physical Exam General Appearance: no apparent distress Skin: warm Respiratory: bilateral CTA Heart: S1S2, RRR Abdomen: soft, bowel sounds present Genitourinary: bladder flat Extremities: pulses present Neurology: alert, oriented Musculoskeletal: Other Assessment Assessment IMP ESRD ANEMIA HTN UREMIA PAD LE WOUND NON COMPLIANCE DIARRHEA PLAN WOUND CARE HD TOMORROW CONT TO BE SUPPORTIVE SUZY HOWARD MD Mar 05, 2018 11:51
--- NOTE | 2018-03-05 12:21 | PDOC ---
PROGRESS NOTES Subjective Subjective "STOP IT!!! Unless you plan to knock me out completely, you will not clean up or touch my ulcer. And you are not chopping off my foot either." Objective Objective Vascular Surgery Follow Up: General: VSS, afebrile. Patient seen with wound care present. Very distressed with removal of vac dressing to RLE. Requested us to stop and not touch it anymore. RLE: Wound edges and surrounding tissue to entire lower leg below the knee erythematous, pitting edema and tender to touch. Central wound base with mild granulation tissue, medial and lateral wound base with significant sloughed tissue and exposed tendon now present ot medial aspect. Non odorous. Remaining wounds covered with dressing. I attempted to remove some of the loose slough tissue and patient declared that I am to stop. Assessment/Plan: Atherosclerosis with ulceration of the right lower extremity with nonhealing right ankle wound with cellulitis, cultures showed MRSA, Grp B Strep, enterococcus fecalis and necrotic ulcer right lateral ankle. * Recommendation has been for BKA and she adamantly refuses this as an option. She requests an operative wound debridement under sedation. I explained that this will only temporarily clean up slough and not create new, healthy granulation tissue due to poor blood flow. Additionally, she now has exposed tendon. We explained that at some point, either her wound healing will improve with vac dressing or it will decline further. The patient understands this. * Continue IV abx per ID. * Patient will be transferred to [facility] later today. Continue wound vac therapy. * Vascular Surgery will sign off. Vital Signs Date Time Temp Pulse Resp B/P (MAP) Pulse Ox O2 Delivery O2 Flow Rate FiO2 03/05/18 11:48 100 Room Air 2.0 03/05/18 11:00 98.4 63 18 118/35 (62) 98.4 Intake and Output 03/05/18 07:00 Intake Total 980 ml Balance 980 ml Intake Oral 880 ml IV Total 100 ml # Voids 1 Assessment Assessment Problems Medical Problems: (1) Anemia Status: Acute (2) Generalized weakness Status: Acute (3) Hyperkalemia Status: Acute Comment Review of Relevant I have reviewed the following items ashley (where applicable) has been applied. Labs Laboratory Tests Test 03/04/18 17:00 03/05/18 06:30 White Blood Count 5.8 x10^3/uL (4.0-11.0) 7.7 x10^3/uL (4.0-11.0) Red Blood Count 2.16 x10^6/uL (3.50-5.40) 2.45 x10^6/uL (3.50-5.40) Hemoglobin 6.7 g/dL (12.0-15.5) 7.3 g/dL (12.0-15.5) Hematocrit 20.4 % (36.0-47.0) 22.9 % (36.0-47.0) Mean Corpuscular Volume 95 fL (79-100) 94 fL (79-100) Mean Corpuscular Hemoglobin 31 pg (25-35) 30 pg (25-35) Mean Corpuscular Hemoglobin Concent 33 g/dL (31-37) 32 g/dL (31-37) Red Cell Distribution Width 21.0 % (11.5-14.5) 21.0 % (11.5-14.5) Platelet Count 142 x10^3/uL (140-400) 169 x10^3/uL (140-400) Neutrophils (%) (Auto) 67 % (31-73) 65 % (31-73) Lymphocytes (%) (Auto) 21 % (24-48) 22 % (24-48) Monocytes (%) (Auto) 9 % (0-9) 8 % (0-9) Eosinophils (%) (Auto) 3 % (0-3) 3 % (0-3) Basophils (%) (Auto) 1 % (0-3) 1 % (0-3) Neutrophils # (Auto) 3.9 x10^3uL (1.8-7.7) 5.0 x10^3uL (1.8-7.7) Lymphocytes # (Auto) 1.2 x10^3/uL (1.0-4.8) 1.7 x10^3/uL (1.0-4.8) Monocytes # (Auto) 0.5 x10^3/uL (0.0-1.1) 0.6 x10^3/uL (0.0-1.1) Eosinophils # (Auto) 0.1 x10^3/uL (0.0-0.7) 0.3 x10^3/uL (0.0-0.7) Basophils # (Auto) 0.1 x10^3/uL (0.0-0.2) 0.1 x10^3/uL (0.0-0.2) Sodium Level 142 mmol/L (136-145) 142 mmol/L (136-145) Potassium Level 4.2 mmol/L (3.5-5.1) 4.5 mmol/L (3.5-5.1) Chloride Level 106 mmol/L (98-107) 104 mmol/L (98-107) Carbon Dioxide Level 30 mmol/L (21-32) 31 mmol/L (21-32) Anion Gap 6 (6-14) 7 (6-14) Blood Urea Nitrogen 17 mg/dL (7-20) 19 mg/dL (7-20) Creatinine 4.2 mg/dL (0.6-1.0) 4.9 mg/dL (0.6-1.0) Estimated GFR (Cockcroft-Gault) 10.6 8.8 Glucose Level 148 mg/dL (70-99) 83 mg/dL (70-99) Calcium Level 6.2 mg/dL (8.5-10.1) 6.8 mg/dL (8.5-10.1) Laboratory Tests Test 03/04/18 17:00 03/05/18 06:30 White Blood Count 5.8 x10^3/uL (4.0-11.0) 7.7 x10^3/uL (4.0-11.0) Red Blood Count 2.16 x10^6/uL (3.50-5.40) 2.45 x10^6/uL (3.50-5.40) Hemoglobin 6.7 g/dL (12.0-15.5) 7.3 g/dL (12.0-15.5) Hematocrit 20.4 % (36.0-47.0) 22.9 % (36.0-47.0) Mean Corpuscular Volume 95 fL (79-100) 94 fL (79-100) Mean Corpuscular Hemoglobin 31 pg (25-35) 30 pg (25-35) Mean Corpuscular Hemoglobin Concent 33 g/dL (31-37) 32 g/dL (31-37) Red Cell Distribution Width 21.0 % (11.5-14.5) 21.0 % (11.5-14.5) Platelet Count 142 x10^3/uL (140-400) 169 x10^3/uL (140-400) Neutrophils (%) (Auto) 67 % (31-73) 65 % (31-73) Lymphocytes (%) (Auto) 21 % (24-48) 22 % (24-48) Monocytes (%) (Auto) 9 % (0-9) 8 % (0-9) Eosinophils (%) (Auto) 3 % (0-3) 3 % (0-3) Basophils (%) (Auto) 1 % (0-3) 1 % (0-3) Neutrophils # (Auto) 3.9 x10^3uL (1.8-7.7) 5.0 x10^3uL (1.8-7.7) Lymphocytes # (Auto) 1.2 x10^3/uL (1.0-4.8) 1.7 x10^3/uL (1.0-4.8) Monocytes # (Auto) 0.5 x10^3/uL (0.0-1.1) 0.6 x10^3/uL (0.0-1.1) Eosinophils # (Auto) 0.1 x10^3/uL (0.0-0.7) 0.3 x10^3/uL (0.0-0.7) Basophils # (Auto) 0.1 x10^3/uL (0.0-0.2) 0.1 x10^3/uL (0.0-0.2) Sodium Level 142 mmol/L (136-145) 142 mmol/L (136-145) Potassium Level 4.2 mmol/L (3.5-5.1) 4.5 mmol/L (3.5-5.1) Chloride Level 106 mmol/L (98-107) 104 mmol/L (98-107) Carbon Dioxide Level 30 mmol/L (21-32) 31 mmol/L (21-32) Anion Gap 6 (6-14) 7 (6-14) Blood Urea Nitrogen 17 mg/dL (7-20) 19 mg/dL (7-20) Creatinine 4.2 mg/dL (0.6-1.0) 4.9 mg/dL (0.6-1.0) Estimated GFR (Cockcroft-Gault) 10.6 8.8 Glucose Level 148 mg/dL (70-99) 83 mg/dL (70-99) Calcium Level 6.2 mg/dL (8.5-10.1) 6.8 mg/dL (8.5-10.1) Microbiology 02/26/18 Anaerobic/Aerobic Culture - Final, Complete 02/26/18 Anaerobic Culture Result 1 (LUZ) - Final, Complete 02/26/18 Aerobic Culture - Final, Complete 02/26/18 Aerobic Culture Result 1 (LUZ) - Final, Complete 02/26/18 Aerobic Culture Result 2 (LUZ) - Final, Complete 02/26/18 Aerobic Culture Result 3 (LUZ) - Final, Complete 02/26/18 Antimicrobic Susceptibility - Final, Complete 02/26/18 Gram Stain - Final, Complete 02/26/18 Gram Stain Result 1 (LUZ) - Final, Complete 02/26/18 Gram Stain Result 2 (LUZ) - Final, Complete Medications Current Medications Sodium Bicarbonate (Sodium Bicarb Adult 8.4% Syr) 50 meq 1X ONCE IV Last administered on 02/25/18at 19:16; Start 02/25/18 at 19:00; Stop 02/25/18 at 19:01 ; Status DC Calcium Gluconate (Calcium Gluconate) 1,000 mg 1X ONCE IVP Last administered on 02/25/18at 19:07; Start 02/25/18 at 19:00; Stop 02/25/18 at 19:01; Status DC Dextrose (Dextrose 50%-Water Syringe) 25 gm 1X ONCE IV Last administered on at 19:14; Start 02/25/18 at 19:00; Stop 02/25/18 at 19:01; Status DC Insulin Human Regular (HumuLIN R VIAL) 10 unit 1X ONCE IV Last administered on 02/25/18at 19:13; Start 02/25/18 at 19:00; Stop 02/25/18 at 19:01; Status DC Albuterol Sulfate (Ventolin Neb Soln) 10 mg 1X ONCE CONT NEB ; Start 02/25/18 at 19:00; Stop 02/25/18 at 19:01; Status DC Ondansetron HCl (Zofran) 4 mg PRN Q8HRS PRN IV NAUSEA/VOMITING; Start 02/25/18 at 21:00; Stop 02/26/18 at 20:59; Status DC Aspirin (Ecotrin) 81 mg QHS PO Last administered on 03/04/18at 21:14; Start at 21:00 Carvedilol (Coreg) 3.125 mg BIDWMEALS PO Last administered on 03/05/18at 09:30 ; Start 02/26/18 at 08:00 Cinacalcet (Sensipar) 30 mg QHS PO Last administered on 03/04/18 21:14; Start 02/26/18 at 21:00 Clopidogrel Bisulfate (Plavix) 75 mg QHS PO Last administered on 03/04/18 21: 14; Start 02/26/18 at 21:00 Polyethylene Glycol (miraLAX PACKET) 17 gm PRN DAILY PRN PO CONSTIPATION 1ST CHOICE; Start 02/26/18 at 09:00 Vitamin B Complex/ Vitamin C (Alayna-Oneil) 1 tab DAILY PO Last administered on at 09:30; Start 02/26/18 at 09:00 Sodium Chloride 1,000 ml @ 1,000 mls/hr Q1H PRN IV hypotension; Start 02/26/18 at 13:42; Stop 02/26/18 at 19:41; Status DC Sodium Chloride 1,000 ml @ 400 mls/hr Q2H30M PRN IV PATENCY; Start 02/26/18 at 13:42; Stop 02/27/18 at 01:42; Status DC Info (PHARMACY MONITORING -- do not chart) 1 each PRN DAILY PRN MC SEE COMMENTS ; Start 02/26/18 at 13:45; Stop 02/27/18 at 15:54; Status DC Lidocaine HCl (Xylocaine-Mpf 2% Vial) 0.5 ml 1X STAT ID Last administered on 02/26/18at 14:58; Start 02/26/18 at 14:46; Stop 02/26/18 at 14:50; Status DC Tramadol HCl (Ultram) 50 mg PRN Q6HRS PRN PO MILD PAIN Last administered on 03/09at 18:03; Start 02/26/18 at 20:00 Sodium Chloride 1,000 ml @ 1,000 mls/hr Q1H PRN IV hypotension; Start 02/27/18 at 08:41; Stop 02/27/18 at 14:40; Status DC Sodium Chloride 1,000 ml @ 400 mls/hr Q2H30M PRN IV PATENCY; Start 02/27/18 at 08:41; Stop 02/27/18 at 20:40; Status DC Info (PHARMACY MONITORING -- do not chart) 1 each PRN DAILY PRN MC SEE COMMENTS ; Start 02/27/18 at 08:45; Status UNV Info (PHARMACY MONITORING -- do not chart) 1 each PRN DAILY PRN MC SEE COMMENTS ; Start 02/27/18 at 08:45; Stop 03/02/18 at 13:36; Status DC Lidocaine HCl (Xylocaine-Mpf 2% Vial) 2 ml 1X ONCE INJ ; Start 02/27/18 at 09: 00; Stop 02/27/18 at 09:01; Status DC Lidocaine HCl (Lidocaine Pf 2% Vial) 5 ml 1X ONCE IJ Last administered on 02/27at 09:00; Start 02/27/18 at 09:00; Stop 02/27/18 at 09:01; Status DC Alprazolam (Xanax) 0.25 mg PRN DAILY PRN PO ANXIETY / AGITATION Last administered on 03/03/18at 20:39; Start 02/27/18 at 09:15 Atorvastatin Calcium (Lipitor) 10 mg QHS PO Last administered on 03/04/18at 21: 14; Start 02/27/18 at 21:00 Gabapentin (Neurontin) 300 mg QHS PO Last administered on 03/04/18at 21:15; Start 02/27/18 at 21:00 Sertraline HCl (Zoloft) 50 mg QHS PO Last administered on 03/04/18at 21:14; Start 02/27/18 at 21:00 Acetaminophen/ Hydrocodone Bitart (Lortab 10/325) 1 tab PRN Q6HRS PRN PO PAIN; Start 02/27/18 at 09:30; Stop 02/27/18 at 09:30; Status DC Vancomycin HCl 2 gm/Sodium Chloride 500 ml @ 250 mls/hr 1X ONCE IV ; Start at 09:15; Stop 02/27/18 at 11:14; Status UNV Vancomycin HCl (Vanco Per Pharmacy) 1 each PRN DAILY PRN MC SEE COMMENTS Last administered on 03/04/18at 14:13; Start 02/27/18 at 09:15 Acetaminophen (Tylenol) 650 mg PRN Q6HRS PRN PO FEVER; Start 02/27/18 at 09:15 Ondansetron HCl (Zofran) 4 mg PRN Q6HRS PRN IV NAUSEA/VOMITING Last administered on 03/02/18at 23:30; Start 02/27/18 at 09:15 Docusate Sodium (Colace) 100 mg PRN DAILY PRN PO hard stools; Start 02/27/18 at 09:15 Heparin Sodium (Porcine) (Heparin Sodium) 5,000 unit Q8HRS SQ ; Start 02/27/18 at 14:00 Acetaminophen/ Hydrocodone Bitart (Lortab 10/325) 1 tab PRN Q6HRS PRN PO MODERATE PAIN Last administered on 03/05/18at 11:48; Start 02/27/18 at 09:30 Vancomycin HCl 1.75 gm/Sodium Chloride 500 ml @ 250 mls/hr 1X ONCE IV Last administered on 02/27/18at 18:40; Start 02/27/18 at 12:00; Stop 02/27/18 at 13:59 ; Status DC Piperacillin Sod/ Tazobactam Sod 2.25 gm/Sodium Chloride 50 ml @ 100 mls/hr Q8HRS IV Last administered on 03/03/18at 05:19; Start 02/27/18 at 15:00; Stop 03/03/18 at 15:00; Status DC Lactobacillus Rhamnosus (Culturelle) 1 cap BID PO Last administered on at 09:30; Start 02/28/18 at 09:00 Levothyroxine Sodium (Synthroid) 88 mcg DAILY06 PO Last administered on at 05:52; Start 02/28/18 at 14:30 Vancomycin HCl (Vancomycin Random Level) 1 each 1X ONCE MC ; Start 03/01/18 at 05:00; Stop 03/01/18 at 05:01; Status DC Vancomycin HCl 500 mg/Sodium Chloride 100 ml @ 100 mls/hr QTUTHSA IV Last administered on 03/04/18at 17:07; Start 03/02/18 at 16:00 Sodium Chloride 1,000 ml @ 1,000 mls/hr Q1H PRN IV hypotension; Start at 08:28; Stop 03/02/18 at 14:27; Status DC Albumin Human 200 ml @ 200 mls/hr 1X PRN PRN IV Hypotension; Start 03/02/18 at 08:30; Stop 03/02/18 at 14:29; Status DC Diphenhydramine HCl (Benadryl) 25 mg 1X PRN PRN IV ITCHING; Start 03/02/18 at 08:30; Stop 03/03/18 at 08:29; Status DC Diphenhydramine HCl (Benadryl) 25 mg 1X PRN PRN IV ITCHING; Start 03/02/18 at 08:30; Stop 03/03/18 at 08:29; Status DC Sodium Chloride 1,000 ml @ 400 mls/hr Q2H30M PRN IV PATENCY; Start 03/02/18 at 08:28; Stop 03/02/18 at 20:27; Status DC Info (PHARMACY MONITORING -- do not chart) 1 each PRN DAILY PRN MC SEE COMMENTS ; Start 03/02/18 at 08:30; Status UNV Info (PHARMACY MONITORING -- do not chart) 1 each PRN DAILY PRN MC SEE COMMENTS ; Start 03/02/18 at 08:30; Stop 03/04/18 at 14:03; Status DC Sodium Chloride 1,000 ml @ 1,000 mls/hr Q1H PRN IV hypotension; Start at 16:15; Stop 03/02/18 at 22:14; Status DC Sodium Chloride 1,000 ml @ 400 mls/hr Q2H30M PRN IV PATENCY; Start 03/02/18 at 16:15; Stop 03/03/18 at 04:14; Status DC Info (PHARMACY MONITORING -- do not chart) 1 each PRN DAILY PRN MC SEE COMMENTS ; Start 03/02/18 at 16:15; Status UNV Info (PHARMACY MONITORING -- do not chart) 1 each PRN DAILY PRN MC SEE COMMENTS ; Start 03/02/18 at 16:15; Status UNV Ceftriaxone Sodium (Rocephin) 1 gm Q24H IVP Last administered on 03/04/18at 17: 02; Start 03/03/18 at 16:00 Loperamide HCl (Imodium) 2 mg PRN Q4HRS PRN PO DIARRHEA Last administered on at 09:30; Start 03/03/18 at 15:15 Sodium Chloride 1,000 ml @ 1,000 mls/hr Q1H PRN IV hypotension; Start at 07:27; Stop 03/04/18 at 13:27; Status DC Albumin Human 200 ml @ 200 mls/hr 1X PRN PRN IV Hypotension; Start 03/04/18 at 07:30; Stop 03/04/18 at 13:29; Status DC Acetaminophen (Tylenol) 500 mg 1X PRN PRN PO MILD PAIN / TEMP; Start 03/04/18 at 07:30; Stop 03/05/18 at 07:29; Status DC Diphenhydramine HCl (Benadryl) 25 mg 1X PRN PRN IV ITCHING; Start 03/04/18 at 07:30; Stop 03/05/18 at 07:29; Status DC Diphenhydramine HCl (Benadryl) 25 mg 1X PRN PRN IV ITCHING; Start 03/04/18 at 07:30; Stop 03/05/18 at 07:29; Status DC Sodium Chloride 1,000 ml @ 400 mls/hr Q2H30M PRN IV PATENCY; Start 03/04/18 at 07:27; Stop 03/04/18 at 19:26; Status DC Info (PHARMACY MONITORING -- do not chart) 1 each PRN DAILY PRN MC SEE COMMENTS ; Start 03/04/18 at 07:30 Active Scripts Active FENTANYL 25mcg/hr (Fentanyl) 1 Each Patch.td72 1 Patch TD Q3DAYS 30 Days Atorvastatin Calcium 10 Mg Tablet 10 Mg PO QHS 30 Days Carvedilol (Carvedilol) 3.125 Mg Tablet 3.125 Mg PO BIDWMEALS Reported [place] 10-325 Tablet (Acetaminophen/Hydrocodone Bitart) 1 Each Tablet 1 Tab PO Q4 -6HRS Polyethylene Glycol 3350 17 Gm Powd.pack 17 Gm PO PRN DAILY PRN Sertraline Hcl 50 Mg Tablet 50 Mg PO QHS Sensipar (Cinacalcet Hcl) 30 Mg Tablet 1 Tab PO QHS Alayna-Oneil Rx Tablet (Vit B Cmplx 3/Fa/Vit C/Biotin) 1 Each Tablet 1 Each PO DAILY Cranberry Plus Vitamin C Sftgl (Cranberry Conc/Ascorbic Acid) 1 Each Capsule 1 Each PO QHS Alprazolam 0.25 Mg Tablet 1 Tab PO DAILY PRN Plavix (Clopidogrel Bisulfate) 75 Mg Tablet 75 Mg PO QHS Calcium Acetate 667 Mg Tablet 2 Tab PO TIDWMEALS Tylenol Extra Strength (Acetaminophen) 500 Mg Tablet 500 Mg PO PRN Q12HRS PRN Gabapentin (Gabapentin) 300 Mg Capsule 300 Mg PO QHS Benadryl Allergy (Diphenhydramine Hcl) 25 Mg Tablet 25 Mg PO PRN not given in the hospital Aspir 81 (Aspirin) 81 Mg Tablet.dr 81 Mg PO QHS Vitals/I & O Vital Sign - Last 24 Hours 03/04/18 03/04/18 03/04/18 03/04/18 14:27 15:00 17:06 19:00 Temp 98.3 98.4 98.3 98.4 Pulse 73 73 69 Resp 18 20 B/P (MAP) 137/39 (71) 169/76 110/53 (72) Pulse Ox 99 100 O2 Delivery Room Air Room Air Room Air 03/04/18 03/04/18 03/04/18 03/04/18 20:00 21:14 22:14 23:02 Temp 98.6 98.6 Pulse 65 Resp 18 18 20 B/P (MAP) 111/38 (62) Pulse Ox 100 96 96 O2 Delivery Room Air Room Air Room Air Room Air 03/05/18 03/05/18 03/05/18 03/05/18 03:02 04:08 07:00 08:00 Temp 98.4 98.4 98.4 98.4 Pulse 68 60 Resp 20 18 18 B/P (MAP) 126/49 (74) 121/47 (71) Pulse Ox 97 97 100 O2 Delivery Room Air Room Air Room Air Room Air O2 Flow Rate 2.0 03/05/18 03/05/18 03/05/18 09:30 11:00 11:48 Temp 98.4 98.4 Pulse 60 63 Resp 18 B/P (MAP) 121/47 118/35 (62) Pulse Ox 100 100 O2 Delivery Room Air Room Air O2 Flow Rate 2.0 Intake and Output 03/04/18 03/04/18 03/05/18 15:00 23:00 07:00 Intake Total 400 ml 340 ml 240 ml Balance 400 ml 340 ml 240 ml NAYAN DUKES APRN Mar 05, 2018 12:21
--- NOTE | 2018-03-05 12:56 | PDOC ---
Infectious Disease Note Subjective: Subjective Pt says feels ok No F/C/S/V/D been tx to select today ROS: ROS Negative except for above. Vital Signs: Vital Signs Vital Signs Date Time Temp Pulse Resp B/P (MAP) Pulse Ox O2 Delivery O2 Flow Rate FiO2 03/05/18 11:48 100 Room Air 2.0 03/05/18 11:00 98.4 63 18 118/35 (62) 98.4 Physical Exam: PHYSICAL EXAM GENERAL: Sitting in the chair, alert, social, eating a large plate of take out moroccan food LUNGS: Clear to auscultation. HEART: S1 and S2. AICD. ABDOMEN: Soft and nontender. Bowel sounds present. EXTREMITIES: Right lower extremity 1+ edema. leg wounds bandaged SKIN: Warm without rash. LUE-AV fistula NEUROLOGICAL: Alert and oriented x 3. RUE-midline, clean Medications: Inpatient Meds: Current Medications Medications (Trade) Dose Ordered Sig/Liza Start Time Stop Time Status Last Admin Dose Admin Acetaminophen (Tylenol) 500 mg 1X PRN PRN 03/04/18 07:30 03/05/18 07:29 DC Acetaminophen/ Hydrocodone Bitart (Lortab 10/325) 1 tab PRN Q6HRS PRN 02/27/18 09:30 03/05/18 11:48 1 TAB Albumin Human 200 ml @ 200 mls/hr 1X PRN PRN 03/04/18 07:30 03/04/18 13:29 DC Albuterol Sulfate (Ventolin Neb Soln) 10 mg 1X ONCE 02/25/18 19:00 02/25/18 19:01 DC Alprazolam (Xanax) 0.25 mg PRN DAILY PRN 02/27/18 09:15 03/03/18 20:39 0.25 MG Aspirin (Ecotrin) 81 mg QHS 02/26/18 21:00 03/04/18 21:14 81 MG Atorvastatin Calcium (Lipitor) 10 mg QHS 02/27/18 21:00 03/04/18 21:14 10 MG Calcium Gluconate (Calcium Gluconate) 1,000 mg 1X ONCE 02/25/18 19:00 02/25/18 19:01 DC 02/25/18 19:07 1,000 MG Carvedilol (Coreg) 3.125 mg BIDWMEALS 02/26/18 08:00 03/05/18 09:30 3.125 MG Ceftriaxone Sodium (Rocephin) 1 gm Q24H 03/03/18 16:00 03/04/18 17:02 1 GM Cinacalcet (Sensipar) 30 mg QHS 02/26/18 21:00 03/04/18 21:14 30 MG Clopidogrel Bisulfate (Plavix) 75 mg QHS 02/26/18 21:00 03/04/18 21:14 75 MG Dextrose (Dextrose 50%-Water Syringe) 25 gm 1X ONCE 02/25/18 19:00 02/25/18 19:01 DC 02/25/18 19:14 25 GM Diphenhydramine HCl (Benadryl) 25 mg 1X PRN PRN 03/04/18 07:30 03/05/18 07:29 DC Docusate Sodium (Colace) 100 mg PRN DAILY PRN 02/27/18 09:15 Gabapentin (Neurontin) 300 mg QHS 02/27/18 21:00 03/04/18 21:15 300 MG Heparin Sodium (Porcine) (Heparin Sodium) 5,000 unit Q8HRS 02/27/18 14:00 Info (PHARMACY MONITORING -- do not chart) 1 each PRN DAILY PRN 03/04/18 07:30 Insulin Human Regular (HumuLIN R VIAL) 10 unit 1X ONCE 02/25/18 19:00 02/25/18 19:01 DC 02/25/18 19:13 10 UNIT Lactobacillus Rhamnosus (Culturelle) 1 cap BID 02/28/18 09:00 03/05/18 09:30 1 CAP Levothyroxine Sodium (Synthroid) 88 mcg DAILY06 02/28/18 14:30 03/05/18 05:52 88 MCG Lidocaine HCl (Lidocaine Pf 2% Vial) 5 ml 1X ONCE 02/27/18 09:00 02/27/18 09:01 DC 02/27/18 09:00 5 ML Lidocaine HCl (Xylocaine-Mpf 2% Vial) 2 ml 1X ONCE 02/27/18 09:00 02/27/18 09:01 DC Loperamide HCl (Imodium) 2 mg PRN Q4HRS PRN 03/03/18 15:15 03/05/18 09:30 2 MG Ondansetron HCl (Zofran) 4 mg PRN Q6HRS PRN 02/27/18 09:15 03/02/18 23:30 4 MG Piperacillin Sod/ Tazobactam Sod 2.25 gm/Sodium Chloride 50 ml @ 100 mls/hr Q8HRS 02/27/18 15:00 03/03/18 15:00 DC 03/03/18 05:19 100 MLS/HR Polyethylene Glycol (miraLAX PACKET) 17 gm PRN DAILY PRN 02/26/18 09:00 Sertraline HCl (Zoloft) 50 mg QHS 02/27/18 21:00 03/04/18 21:14 50 MG Sodium Bicarbonate (Sodium Bicarb Adult 8.4% Syr) 50 meq 1X ONCE 02/25/18 19:00 02/25/18 19:01 DC 02/25/18 19:16 50 MEQ Sodium Chloride 1,000 ml @ 400 mls/hr Q2H30M PRN 03/04/18 07:27 03/04/18 19:26 DC Tramadol HCl (Ultram) 50 mg PRN Q6HRS PRN 02/26/18 20:00 03/03/18 18:03 50 MG Vancomycin HCl (Vanco Per Pharmacy) 1 each PRN DAILY PRN 02/27/18 09:15 03/04/18 14:13 1 EACH Vancomycin HCl (Vancomycin Random Level) 1 each 1X ONCE 03/01/18 05:00 03/01/18 05:01 DC Vancomycin HCl 1.75 gm/Sodium Chloride 500 ml @ 250 mls/hr 1X ONCE 02/27/18 12:00 02/27/18 13:59 DC 02/27/18 18:40 250 MLS/HR Vancomycin HCl 500 mg/Sodium Chloride 100 ml @ 100 mls/hr QTUTHSA 03/02/18 16:00 03/04/18 17:07 100 MLS/HR Vancomycin HCl 2 gm/Sodium Chloride 500 ml @ 250 mls/hr 1X ONCE 02/27/18 09:15 02/27/18 11:14 UNV Vitamin B Complex/ Vitamin C (Alayna-Oneil) 1 tab DAILY 02/26/18 09:00 03/05/18 09:30 1 TAB Labs: Lab Laboratory Tests Test 03/04/18 17:00 03/05/18 06:30 White Blood Count 5.8 x10^3/uL (4.0-11.0) 7.7 x10^3/uL (4.0-11.0) Red Blood Count 2.16 x10^6/uL (3.50-5.40) 2.45 x10^6/uL (3.50-5.40) Hemoglobin 6.7 g/dL (12.0-15.5) 7.3 g/dL (12.0-15.5) Hematocrit 20.4 % (36.0-47.0) 22.9 % (36.0-47.0) Mean Corpuscular Volume 95 fL (79-100) 94 fL (79-100) Mean Corpuscular Hemoglobin 31 pg (25-35) 30 pg (25-35) Mean Corpuscular Hemoglobin Concent 33 g/dL (31-37) 32 g/dL (31-37) Red Cell Distribution Width 21.0 % (11.5-14.5) 21.0 % (11.5-14.5) Platelet Count 142 x10^3/uL (140-400) 169 x10^3/uL (140-400) Neutrophils (%) (Auto) 67 % (31-73) 65 % (31-73) Lymphocytes (%) (Auto) 21 % (24-48) 22 % (24-48) Monocytes (%) (Auto) 9 % (0-9) 8 % (0-9) Eosinophils (%) (Auto) 3 % (0-3) 3 % (0-3) Basophils (%) (Auto) 1 % (0-3) 1 % (0-3) Neutrophils # (Auto) 3.9 x10^3uL (1.8-7.7) 5.0 x10^3uL (1.8-7.7) Lymphocytes # (Auto) 1.2 x10^3/uL (1.0-4.8) 1.7 x10^3/uL (1.0-4.8) Monocytes # (Auto) 0.5 x10^3/uL (0.0-1.1) 0.6 x10^3/uL (0.0-1.1) Eosinophils # (Auto) 0.1 x10^3/uL (0.0-0.7) 0.3 x10^3/uL (0.0-0.7) Basophils # (Auto) 0.1 x10^3/uL (0.0-0.2) 0.1 x10^3/uL (0.0-0.2) Sodium Level 142 mmol/L (136-145) 142 mmol/L (136-145) Potassium Level 4.2 mmol/L (3.5-5.1) 4.5 mmol/L (3.5-5.1) Chloride Level 106 mmol/L (98-107) 104 mmol/L (98-107) Carbon Dioxide Level 30 mmol/L (21-32) 31 mmol/L (21-32) Anion Gap 6 (6-14) 7 (6-14) Blood Urea Nitrogen 17 mg/dL (7-20) 19 mg/dL (7-20) Creatinine 4.2 mg/dL (0.6-1.0) 4.9 mg/dL (0.6-1.0) Estimated GFR (Cockcroft-Gault) 10.6 8.8 Glucose Level 148 mg/dL (70-99) 83 mg/dL (70-99) Calcium Level 6.2 mg/dL (8.5-10.1) 6.8 mg/dL (8.5-10.1) Micro RUN DATE: 03/01/18 PAGE 1 RUN TIME: 1420 [facility] [address] [place] [address] Saleem Walsh M.D., Procurement Consultant PATIENT: DIANE CARLSON ACCT: [id number] LOC: [address] [place] [address] U : [id number] AGE/SX: 68/F ROOM: [facility] REG : 02/25/[address]: ROLAND ELLIOTT MD : 1950 BED: 1 DIS : STATUS: ADM IN TLOC: SPEC #: [id number] AMADO: 02/26/18 STATUS: RES REQ #: [id number] RECD: 02/26/[address]: ROLAND ELLIOTT MD SOURCE: LEG ENTR: 02/26/[address]: JULIET DAVEY MD [facility]: WOUND UNKNOWN PCP NAME ORDERED: ANAER/AEROB/GS Procedure Result ANAEROBIC-AEROBIC CULTURE PENDING ANAEROBIC RES 1 PENDING AEROBIC CULT Final Final report AEROBIC RES 1 Final Comment Methicillin - resistant Staphylococcus aureus 4+ Based on resistance to oxacillin this isolate would be resistant to all currently available beta-lactam antimicrobial agents, with the exception of the newer cephalosporins with anti-MRSA activity, such as Ceftaroline AEROBIC RES 2 Final Enterococcus faecalis 4+ AEROBIC RES 3 Final Comment Beta hemolytic Streptococcus, group B 4+ Penicillin and ampicillin are drugs of choice for treatment of beta-hemolytic streptococcal infections. Susceptibility testing of penicillins and other beta-lactam agents approved by the FDA for treatment of beta-hemolytic streptococcal infections need not be performed routinely because nonsusceptible isolates are extremely rare in any beta-hemolytic streptococcus and have not been reported for Streptococcus pyogenes (group A). (CLSI) CONTINUED ON NEXT PAGE RUN DATE: 03/01/18 PAGE 2 RUN TIME: 7205 [facility] [address] [place] [address] Saleem Walsh M.D., Procurement Consultant SPEC: [id number] PATIENT: DIANE CARLSON [id number] ( Continued) Procedure Result ANTIMICROBIAL SUSCEPTIBILITY Final Comment S = Susceptible; I = Intermediate; R = Resistant P = Positive; N = Negative MICS are expressed in micrograms per mL Antibiotic RSLT#1 RSLT#2 RSLT#3 RSLT#4 Ciprofloxacin S<=0.5 Clindamycin R>=8 Erythromycin R>=8 Gentamicin S =4 Levofloxacin S<=0.12 Linezolid S =2 Oxacillin R =R Penicillin R>=0.5 S =8 Rifampin S<=0.5 Tetracycline R>=16 Trimethoprim/Sulfa S<=10 Vancomycin S<=0.5 S =1 GRAM STAIN Final Final report GRAM STAIN RES 1 Final Comment No white blood cells seen. GRAM STAIN RES 2 Final Comment Many gram positive cocci. Performed at: [facility] [address], [place], [place] [id number] C Iron Worker: MANUEL Stark MD, Phone: [phone] Objective: Assessment: Nonhealing right ankle wound with cellulitis.MRSA, Grp B strep, enterococcus fecalis amp sensitive Necrotic ulcer right lateral ankle DM PVD not a candidate for arteriogram CKD on HD AICD in place Run V-tach Tobaccoism allergy to cipro Plan: Plan of Care Continue vancomycin and ceftriaxone Monitor renal functions closely Monitor labs/temp Local wound care Smoking cessation With active infection and poor wound healing vascular recommendations are for possible future requirement of a BKA. Pt continues to remain on antibiotic trial Usually in these situations, antibiotics alone can fail Midline in place per primary d/w pt at length Duration of treatment 4-6 weeks Midline care wound care per vascular pt is getting [facility] later today JUNIOR QUARLES MD Mar 05, 2018 12:56
[2018-03-05] MEDS: VANCOMYCIN PER PHARMACY MC PRN (13:10)
[2018-03-05] MEDS ORDERED: CEFTRIAXONE SODIUM IVP (14:36)
[2018-03-05] MEDS ORDERED: DOCU-109 PO (14:36)
[2018-03-05] MEDS ORDERED: LEVO88TA2 PO (14:36)
[2018-03-05] MEDS ORDERED: VANC1VIA3 MC (14:36)
[2018-03-05] MEDS ORDERED: LACT1CAP19 PO (14:36)
[2018-03-05] MEDS ORDERED: HEPA50003 SQ (14:36)
[2018-03-05] MEDS ORDERED: LOPE2CAP PO (14:36)
[2018-03-05] MEDS ORDERED: ONDA4VIA7 IV (14:36)
--- NOTE | 2018-03-05 14:40 | DISCH ---
DISCHARGE DISCHARGE INFORMATION: DISCHARGE DATE: Mar 05, 2018 FINAL DIAGNOSIS Problems Medical Problems: (1) Anemia Status: Acute (2) Generalized weakness Status: Acute (3) Hyperkalemia Status: Acute CONDITION ON DISCHARGE: Stable CODE STATUS: Code Status: DNR/DNI GROUP HOME: SNF STAY <30 DAYS: No HOSPICE: HOSPICE: No HOSPICE EVAL & TREAT: No LTAC: ADMIT TO LTAC: Yes POST DISCHARGE ORDERS: ACTIVITY ORDERS: Resume previous activity, Activity as tolerated WEIGHT BEARING STATUS: As tolerated BATHING ORDERS: Shower-keep dressing dry WOUND/INCISION CARE: Ice to area for comfort, Keep wound elevated, Reinforce dressing PRN CHECKS AFTER DISCHARGE: CHECKS AFTER DISCHARGE: Check blood press - daily, Check your Temp as needed FOLLOW-UP: PHYSICIAN FOLLOW-UP: Dr. Darling March 25 - vascular surgery TREATMENT/EQUIPMENT ORDERS: ADAPTIVE EQUIPMENT NEEDED: None INFUSION EQUIPMENT NEEDED: PICC Line Physical Therapy For: Evalulation/Treatment Occupational Therapy For: Evaluation/Treatment DISCHARGE MEDICATIONS: Home Meds Active Scripts Levothyroxine Sodium (SYNTHROID) 88 Mcg Tablet, 88 MCG PO DAILY06 for hypothyroidism for 30 Days, #30 TAB Prov:SHARRON SMITH MD 03/05/18 Lactobacillus Rhamnosus Gg (CULTURELLE) 1 Each Cap.sprink, 1 CAP PO BID for Diarrhea for 30 Days, #60 CAP Prov:SHARRON SMITH MD 03/05/18 Docusate Sodium (COLACE) 100 Mg Capsule, 100 MG PO PRN DAILY PRN for hard stools for 30 Days, #30 CAP Prov:SHARRON SMITH MD 03/05/18 Loperamide Hcl (LOPERAMIDE) 2 Mg Capsule, 2 MG PO PRN Q4HRS PRN for DIARRHEA for 30 Days, #30 CAP Prov:SHARRON SMITH MD 03/05/18 Ondansetron Hcl/Pf (ONDANSETRON HCL 4 MG/2 ML VIAL) 4 Mg/2 Ml Vial, 4 MG IV PRN Q6HRS PRN for NAUSEA/VOMITING for 30 Days, #30 EACH Prov:SHARRON SMITH MD 03/05/18 Heparin Sodium,Porcine (HEPARIN SODIUM) 5,000 Unit/1 Ml Vial, 5000 UNIT SQ Q8HRS for DVT PPX for 30 Days, #90 EACH Prov:SHARRON SMITH MD 03/05/18 Vancomycin Hcl (VANCOMYCIN HCL) 1 Gm Vial, 1 EACH MC PRN DAILY PRN for SEE COMMENTS for 14 Days, #14 EACH Prov:SHARRON SIMTH MD 03/05/18 [cefTRIAXone IV Push] 1 GM VIAL No Conflict Check, 1 GM IVP Q24H for 14 Days, # 14 EACH Prov:SHARRON SMITH MD 03/05/18 Fentanyl (FENTANYL 25mcg/hr) 1 Each Patch.td72, 1 PATCH TD Q3DAYS for 30 Days, # 4 PATCH Prov:TURNER ELISE MD 08/23/17 Atorvastatin Calcium (ATORVASTATIN CALCIUM) 10 Mg Tablet, 10 MG PO QHS for 30 Days, #30 TAB Prov:SAVANNAH LOPEZ MD 12/12/16 Carvedilol (CARVEDILOL ) 3.125 Mg Tablet, 3.125 MG PO BIDWMEALS, #60 TAB 2 Refills Prov:JARED BYRNES MD 10/25/16 Reported Medications Hydrocodone/Apap 10-325 (NORCO 10-325 TABLET) 1 Each Tablet, 1 TAB PO Q4-6HRS for pain, #40 TAB 02/11/18 Polyethylene Glycol 3350 (POLYETHYLENE GLYCOL 3350) 17 Gm Powd.pack, 17 GM PO PRN DAILY PRN for CONSTIPATION, PKT 02/11/18 Sertraline Hcl (SERTRALINE HCL) 50 Mg Tablet, 50 MG PO QHS for ANTI-DEPRESSANT, TAB 0 Refills 11/11/16 Cinacalcet Hcl (SENSIPAR) 30 Mg Tablet, 1 TAB PO QHS, #30 TAB 11 Refills 11/11/16 Vit B Cmplx 3/Fa/Vit C/Biotin (YOJANA-MARKO RX TABLET) 1 Each Tablet, 1 EACH PO DAILY, TAB 11/11/16 Cranberry Conc/Ascorbic Acid (CRANBERRY PLUS VITAMIN C SFTGL) 1 Each Capsule, 1 EACH PO QHS, CAP 11/11/16 Alprazolam (ALPRAZOLAM) 0.25 Mg Tablet, 1 TAB PO DAILY PRN for ANXIETY / AGITATION, #30 TAB 11/11/16 Clopidogrel Bisulfate (PLAVIX) 75 Mg Tablet, 75 MG PO QHS for TO PREVENT BLOOD CLOTS, #30 TAB 0 Refills 10/21/16 Calcium Acetate (CALCIUM ACETATE) 667 Mg Tablet, 2 TAB PO TIDWMEALS for digestive 02/22/15 Acetaminophen (TYLENOL EXTRA STRENGTH) 500 Mg Tablet, 500 MG PO PRN Q12HRS PRN for PAIN 02/22/15 Gabapentin (GABAPENTIN ) 300 Mg Capsule, 300 MG PO QHS, CAP 10/02/14 Diphenhydramine Hcl (BENADRYL ALLERGY) 25 Mg Tablet, 25 MG PO PRN for ALLERGIES not given in the hospital 05/31/13 Aspirin (ASPIR 81) 81 Mg Tablet.dr, 81 MG PO QHS for blood thinner 05/31/13 SHARRON SMITH MD Mar 05, 2018 14:40
--- NOTE | 2018-03-05 14:41 | PDOC ---
PROGRESS NOTES Chief Complaint Chief Complaint ESRD on HD TuThSa rt leg unhealing wound s/p wound vac Hyperkalemia rt hand weakness, need to rule out stroke Generalized weakness Anemia chronic, with ESRD NONCOMPLIANCE, REFUSES HD SOMETIMES Tobacco abuse disorder fluid overload severe protein-caloric malnutrition DIABETES HTN PPMICD PAD Atherosclerosis with ulceration of the right lower extremity--the patient would like to proceed with medical therapy and attempted limb salvage. pain medication overuse, leading to excess sedation and memory loss plan: vascular , good candidate for sx months ago.angiogram, defer to vascular id consult added vanco for now, wound c+ gram + cocci cont some home meds, bp lower side, on coreg low dose on asa, lipitor., will get MRI To rule out stroke, neuro consult resume pain meds, add lortab 10mg q6h prn, cont tramadol. hold fentanyl patch fu with renal, need HD, agrees wit dialysis plan for now PTOT dvt ppx History of Present Illness History of Present Illness Admitted with poorly healing anterior tibial wound of RLE. ROS: no fever, chills, sob or chest pain c/o rt hand weakness, cannot hold glass, strength 4/5, left side 5/5 - seen by neuro, MRI 03/02/18 no acute CVA She wants to eat, refused supplements in the past. T3 and T4 returned low, stated on 88mcg synthroid. Wound culture back positive, however wound vac has been placed back on wound. The culture is MRSA, GBS and enterococcus - resistant to clindamycin and tetracycline. Seen by ID. She c/o diarrhea today and is refusing multiple treatments including dialysis due to her discomfort with her BM. She continues to refuse dialysis today due to weakness A/P: Severe sepsis - with RLE wound - rocephin + vancomycin per ID, will cont at [facility] today wound vac removal and ?replacement - with MRSA this would not be advisable to replace the wound vac, will d/w ID Antibiotics per ID - vanco + rocephin ok for now for 4-6 weeks Discharge planning, will need care for wound, etc. Needs to go to LTAC Vitals Vitals Vital Signs Date Time Temp Pulse Resp B/P (MAP) Pulse Ox O2 Delivery O2 Flow Rate FiO2 03/05/18 11:48 100 Room Air 2.0 03/05/18 11:00 98.4 63 18 118/35 (62) 98.4 Physical Exam Physical Exam GENERAL: Sitting in the chair, alert, social, eating a large plate of take out green[place]ic food LUNGS: Clear to auscultation. HEART: S1 and S2. AICD. ABDOMEN: Soft and nontender. Bowel sounds present. EXTREMITIES: Right lower extremity 1+ edema. leg wounds bandaged SKIN: Warm without rash. LUE-AV fistula NEUROLOGICAL: Alert and oriented x 3. RUE-midline, clean General: Alert, Oriented X3, Cooperative, mild distress Heart: Regular rate, Normal S1, Normal S2 Lungs: Clear, Other Abdomen: Normal bowel sounds, Soft, No tenderness Extremities: No cyanosis, Other (right ankle wound bandaged deep soft tissue infection) Labs LABS Laboratory Tests Test 03/04/18 17:00 03/05/18 06:30 White Blood Count 5.8 x10^3/uL (4.0-11.0) 7.7 x10^3/uL (4.0-11.0) Red Blood Count 2.16 x10^6/uL (3.50-5.40) 2.45 x10^6/uL (3.50-5.40) Hemoglobin 6.7 g/dL (12.0-15.5) 7.3 g/dL (12.0-15.5) Hematocrit 20.4 % (36.0-47.0) 22.9 % (36.0-47.0) Mean Corpuscular Volume 95 fL (79-100) 94 fL (79-100) Mean Corpuscular Hemoglobin 31 pg (25-35) 30 pg (25-35) Mean Corpuscular Hemoglobin Concent 33 g/dL (31-37) 32 g/dL (31-37) Red Cell Distribution Width 21.0 % (11.5-14.5) 21.0 % (11.5-14.5) Platelet Count 142 x10^3/uL (140-400) 169 x10^3/uL (140-400) Neutrophils (%) (Auto) 67 % (31-73) 65 % (31-73) Lymphocytes (%) (Auto) 21 % (24-48) 22 % (24-48) Monocytes (%) (Auto) 9 % (0-9) 8 % (0-9) Eosinophils (%) (Auto) 3 % (0-3) 3 % (0-3) Basophils (%) (Auto) 1 % (0-3) 1 % (0-3) Neutrophils # (Auto) 3.9 x10^3uL (1.8-7.7) 5.0 x10^3uL (1.8-7.7) Lymphocytes # (Auto) 1.2 x10^3/uL (1.0-4.8) 1.7 x10^3/uL (1.0-4.8) Monocytes # (Auto) 0.5 x10^3/uL (0.0-1.1) 0.6 x10^3/uL (0.0-1.1) Eosinophils # (Auto) 0.1 x10^3/uL (0.0-0.7) 0.3 x10^3/uL (0.0-0.7) Basophils # (Auto) 0.1 x10^3/uL (0.0-0.2) 0.1 x10^3/uL (0.0-0.2) Sodium Level 142 mmol/L (136-145) 142 mmol/L (136-145) Potassium Level 4.2 mmol/L (3.5-5.1) 4.5 mmol/L (3.5-5.1) Chloride Level 106 mmol/L (98-107) 104 mmol/L (98-107) Carbon Dioxide Level 30 mmol/L (21-32) 31 mmol/L (21-32) Anion Gap 6 (6-14) 7 (6-14) Blood Urea Nitrogen 17 mg/dL (7-20) 19 mg/dL (7-20) Creatinine 4.2 mg/dL (0.6-1.0) 4.9 mg/dL (0.6-1.0) Estimated GFR (Cockcroft-Gault) 10.6 8.8 Glucose Level 148 mg/dL (70-99) 83 mg/dL (70-99) Calcium Level 6.2 mg/dL (8.5-10.1) 6.8 mg/dL (8.5-10.1) Assessment and Plan Assessmemt and Plan Problems Medical Problems: (1) Anemia Status: Acute (2) Generalized weakness Status: Acute (3) Hyperkalemia Status: Acute Comment Review of Relevant I have reviewed the following items ashley (where applicable) has been applied. Labs Laboratory Tests Test 03/04/18 17:00 03/05/18 06:30 White Blood Count 5.8 x10^3/uL (4.0-11.0) 7.7 x10^3/uL (4.0-11.0) Red Blood Count 2.16 x10^6/uL (3.50-5.40) 2.45 x10^6/uL (3.50-5.40) Hemoglobin 6.7 g/dL (12.0-15.5) 7.3 g/dL (12.0-15.5) Hematocrit 20.4 % (36.0-47.0) 22.9 % (36.0-47.0) Mean Corpuscular Volume 95 fL (79-100) 94 fL (79-100) Mean Corpuscular Hemoglobin 31 pg (25-35) 30 pg (25-35) Mean Corpuscular Hemoglobin Concent 33 g/dL (31-37) 32 g/dL (31-37) Red Cell Distribution Width 21.0 % (11.5-14.5) 21.0 % (11.5-14.5) Platelet Count 142 x10^3/uL (140-400) 169 x10^3/uL (140-400) Neutrophils (%) (Auto) 67 % (31-73) 65 % (31-73) Lymphocytes (%) (Auto) 21 % (24-48) 22 % (24-48) Monocytes (%) (Auto) 9 % (0-9) 8 % (0-9) Eosinophils (%) (Auto) 3 % (0-3) 3 % (0-3) Basophils (%) (Auto) 1 % (0-3) 1 % (0-3) Neutrophils # (Auto) 3.9 x10^3uL (1.8-7.7) 5.0 x10^3uL (1.8-7.7) Lymphocytes # (Auto) 1.2 x10^3/uL (1.0-4.8) 1.7 x10^3/uL (1.0-4.8) Monocytes # (Auto) 0.5 x10^3/uL (0.0-1.1) 0.6 x10^3/uL (0.0-1.1) Eosinophils # (Auto) 0.1 x10^3/uL (0.0-0.7) 0.3 x10^3/uL (0.0-0.7) Basophils # (Auto) 0.1 x10^3/uL (0.0-0.2) 0.1 x10^3/uL (0.0-0.2) Sodium Level 142 mmol/L (136-145) 142 mmol/L (136-145) Potassium Level 4.2 mmol/L (3.5-5.1) 4.5 mmol/L (3.5-5.1) Chloride Level 106 mmol/L (98-107) 104 mmol/L (98-107) Carbon Dioxide Level 30 mmol/L (21-32) 31 mmol/L (21-32) Anion Gap 6 (6-14) 7 (6-14) Blood Urea Nitrogen 17 mg/dL (7-20) 19 mg/dL (7-20) Creatinine 4.2 mg/dL (0.6-1.0) 4.9 mg/dL (0.6-1.0) Estimated GFR (Cockcroft-Gault) 10.6 8.8 Glucose Level 148 mg/dL (70-99) 83 mg/dL (70-99) Calcium Level 6.2 mg/dL (8.5-10.1) 6.8 mg/dL (8.5-10.1) Laboratory Tests Test 03/04/18 17:00 03/05/18 06:30 White Blood Count 5.8 x10^3/uL (4.0-11.0) 7.7 x10^3/uL (4.0-11.0) Red Blood Count 2.16 x10^6/uL (3.50-5.40) 2.45 x10^6/uL (3.50-5.40) Hemoglobin 6.7 g/dL (12.0-15.5) 7.3 g/dL (12.0-15.5) Hematocrit 20.4 % (36.0-47.0) 22.9 % (36.0-47.0) Mean Corpuscular Volume 95 fL (79-100) 94 fL (79-100) Mean Corpuscular Hemoglobin 31 pg (25-35) 30 pg (25-35) Mean Corpuscular Hemoglobin Concent 33 g/dL (31-37) 32 g/dL (31-37) Red Cell Distribution Width 21.0 % (11.5-14.5) 21.0 % (11.5-14.5) Platelet Count 142 x10^3/uL (140-400) 169 x10^3/uL (140-400) Neutrophils (%) (Auto) 67 % (31-73) 65 % (31-73) Lymphocytes (%) (Auto) 21 % (24-48) 22 % (24-48) Monocytes (%) (Auto) 9 % (0-9) 8 % (0-9) Eosinophils (%) (Auto) 3 % (0-3) 3 % (0-3) Basophils (%) (Auto) 1 % (0-3) 1 % (0-3) Neutrophils # (Auto) 3.9 x10^3uL (1.8-7.7) 5.0 x10^3uL (1.8-7.7) Lymphocytes # (Auto) 1.2 x10^3/uL (1.0-4.8) 1.7 x10^3/uL (1.0-4.8) Monocytes # (Auto) 0.5 x10^3/uL (0.0-1.1) 0.6 x10^3/uL (0.0-1.1) Eosinophils # (Auto) 0.1 x10^3/uL (0.0-0.7) 0.3 x10^3/uL (0.0-0.7) Basophils # (Auto) 0.1 x10^3/uL (0.0-0.2) 0.1 x10^3/uL (0.0-0.2) Sodium Level 142 mmol/L (136-145) 142 mmol/L (136-145) Potassium Level 4.2 mmol/L (3.5-5.1) 4.5 mmol/L (3.5-5.1) Chloride Level 106 mmol/L (98-107) 104 mmol/L (98-107) Carbon Dioxide Level 30 mmol/L (21-32) 31 mmol/L (21-32) Anion Gap 6 (6-14) 7 (6-14) Blood Urea Nitrogen 17 mg/dL (7-20) 19 mg/dL (7-20) Creatinine 4.2 mg/dL (0.6-1.0) 4.9 mg/dL (0.6-1.0) Estimated GFR (Cockcroft-Gault) 10.6 8.8 Glucose Level 148 mg/dL (70-99) 83 mg/dL (70-99) Calcium Level 6.2 mg/dL (8.5-10.1) 6.8 mg/dL (8.5-10.1) Microbiology 02/26/18 Anaerobic/Aerobic Culture - Final, Complete 02/26/18 Anaerobic Culture Result 1 (LUZ) - Final, Complete 02/26/18 Aerobic Culture - Final, Complete 02/26/18 Aerobic Culture Result 1 (LUZ) - Final, Complete 02/26/18 Aerobic Culture Result 2 (LUZ) - Final, Complete 02/26/18 Aerobic Culture Result 3 (LUZ) - Final, Complete 02/26/18 Antimicrobic Susceptibility - Final, Complete 02/26/18 Gram Stain - Final, Complete 02/26/18 Gram Stain Result 1 (LUZ) - Final, Complete 02/26/18 Gram Stain Result 2 (LUZ) - Final, Complete Medications Current Medications Sodium Bicarbonate (Sodium Bicarb Adult 8.4% Syr) 50 meq 1X ONCE IV Last administered on 02/25/18at 19:16; Start 02/25/18 at 19:00; Stop 02/25/18 at 19:01 ; Status DC Calcium Gluconate (Calcium Gluconate) 1,000 mg 1X ONCE IVP Last administered on 02/25/18at 19:07; Start 02/25/18 at 19:00; Stop 02/25/18 at 19:01; Status DC Dextrose (Dextrose 50%-Water Syringe) 25 gm 1X ONCE IV Last administered on at 19:14; Start 02/25/18 at 19:00; Stop 02/25/18 at 19:01; Status DC Insulin Human Regular (HumuLIN R VIAL) 10 unit 1X ONCE IV Last administered on 02/25/18at 19:13; Start 02/25/18 at 19:00; Stop 02/25/18 at 19:01; Status DC Albuterol Sulfate (Ventolin Neb Soln) 10 mg 1X ONCE CONT NEB ; Start 02/25/18 at 19:00; Stop 02/25/18 at 19:01; Status DC Ondansetron HCl (Zofran) 4 mg PRN Q8HRS PRN IV NAUSEA/VOMITING; Start 02/25/18 at 21:00; Stop 02/26/18 at 20:59; Status DC Aspirin (Ecotrin) 81 mg QHS PO Last administered on 03/04/18at 21:14; Start at 21:00 Carvedilol (Coreg) 3.125 mg BIDWMEALS PO Last administered on 03/05/18at 09:30 ; Start 02/26/18 at 08:00 Cinacalcet (Sensipar) 30 mg QHS PO Last administered on 03/04/18at 21:14; Start 02/26/18 at 21:00 Clopidogrel Bisulfate (Plavix) 75 mg QHS PO Last administered on 03/04/18at 21: 14; Start 02/26/18 at 21:00 Polyethylene Glycol (miraLAX PACKET) 17 gm PRN DAILY PRN PO CONSTIPATION 1ST CHOICE; Start 02/26/18 at 09:00 Vitamin B Complex/ Vitamin C (Alayna-Oneil) 1 tab DAILY PO Last administered on at 09:30; Start 02/26/18 at 09:00 Sodium Chloride 1,000 ml @ 1,000 mls/hr Q1H PRN IV hypotension; Start 02/26/18 at 13:42; Stop 02/26/18 at 19:41; Status DC Sodium Chloride 1,000 ml @ 400 mls/hr Q2H30M PRN IV PATENCY; Start 02/26/18 at 13:42; Stop 02/27/18 at 01:42; Status DC Info (PHARMACY MONITORING -- do not chart) 1 each PRN DAILY PRN MC SEE COMMENTS ; Start 02/26/18 at 13:45; Stop 02/27/18 at 15:54; Status DC Lidocaine HCl (Xylocaine-Mpf 2% Vial) 0.5 ml 1X STAT ID Last administered on 02/26/18at 14:58; Start 02/26/18 at 14:46; Stop 02/26/18 at 14:50; Status DC Tramadol HCl (Ultram) 50 mg PRN Q6HRS PRN PO MILD PAIN Last administered on 03/09at 18:03; Start 02/26/18 at 20:00 Sodium Chloride 1,000 ml @ 1,000 mls/hr Q1H PRN IV hypotension; Start 02/27/18 at 08:41; Stop 02/27/18 at 14:40; Status DC Sodium Chloride 1,000 ml @ 400 mls/hr Q2H30M PRN IV PATENCY; Start 02/27/18 at 08:41; Stop 02/27/18 at 20:40; Status DC Info (PHARMACY MONITORING -- do not chart) 1 each PRN DAILY PRN MC SEE COMMENTS ; Start 02/27/18 at 08:45; Status UNV Info (PHARMACY MONITORING -- do not chart) 1 each PRN DAILY PRN MC SEE COMMENTS ; Start 02/27/18 at 08:45; Stop 03/02/18 at 13:36; Status DC Lidocaine HCl (Xylocaine-Mpf 2% Vial) 2 ml 1X ONCE INJ ; Start 02/27/18 at 09: 00; Stop 02/27/18 at 09:01; Status DC Lidocaine HCl (Lidocaine Pf 2% Vial) 5 ml 1X ONCE IJ Last administered on 02/27at 09:00; Start 02/27/18 at 09:00; Stop 02/27/18 at 09:01; Status DC Alprazolam (Xanax) 0.25 mg PRN DAILY PRN PO ANXIETY / AGITATION Last administered on 03/03/18at 20:39; Start 02/27/18 at 09:15 Atorvastatin Calcium (Lipitor) 10 mg QHS PO Last administered on 03/04/18at 21: 14; Start 02/27/18 at 21:00 Gabapentin (Neurontin) 300 mg QHS PO Last administered on 03/04/18at 21:15; Start 02/27/18 at 21:00 Sertraline HCl (Zoloft) 50 mg QHS PO Last administered on 03/04/18at 21:14; Start 02/27/18 at 21:00 Acetaminophen/ Hydrocodone Bitart (Lortab 10/325) 1 tab PRN Q6HRS PRN PO PAIN; Start 02/27/18 at 09:30; Stop 02/27/18 at 09:30; Status DC Vancomycin HCl 2 gm/Sodium Chloride 500 ml @ 250 mls/hr 1X ONCE IV ; Start at 09:15; Stop 02/27/18 at 11:14; Status UNV Vancomycin HCl (Vanco Per Pharmacy) 1 each PRN DAILY PRN MC SEE COMMENTS Last administered on 03/05/18at 13:10; Start 02/27/18 at 09:15 Acetaminophen (Tylenol) 650 mg PRN Q6HRS PRN PO FEVER; Start 02/27/18 at 09:15 Ondansetron HCl (Zofran) 4 mg PRN Q6HRS PRN IV NAUSEA/VOMITING Last administered on 03/02/18at 23:30; Start 02/27/18 at 09:15 Docusate Sodium (Colace) 100 mg PRN DAILY PRN PO hard stools; Start 02/27/18 at 09:15 Heparin Sodium (Porcine) (Heparin Sodium) 5,000 unit Q8HRS SQ ; Start 02/27/18 at 14:00 Acetaminophen/ Hydrocodone Bitart (Lortab 10/325) 1 tab PRN Q6HRS PRN PO MODERATE PAIN Last administered on 03/05/18at 11:48; Start 02/27/18 at 09:30 Vancomycin HCl 1.75 gm/Sodium Chloride 500 ml @ 250 mls/hr 1X ONCE IV Last administered on 02/27/18at 18:40; Start 02/27/18 at 12:00; Stop 02/27/18 at 13:59 ; Status DC Piperacillin Sod/ Tazobactam Sod 2.25 gm/Sodium Chloride 50 ml @ 100 mls/hr Q8HRS IV Last administered on 03/03/18at 05:19; Start 02/27/18 at 15:00; Stop 03/03/18 at 15:00; Status DC Lactobacillus Rhamnosus (Culturelle) 1 cap BID PO Last administered on at 09:30; Start 02/28/18 at 09:00 Levothyroxine Sodium (Synthroid) 88 mcg DAILY06 PO Last administered on at 05:52; Start 02/28/18 at 14:30 Vancomycin HCl (Vancomycin Random Level) 1 each 1X ONCE MC ; Start 03/01/18 at 05:00; Stop 03/01/18 at 05:01; Status DC Vancomycin HCl 500 mg/Sodium Chloride 100 ml @ 100 mls/hr QTUTHSA IV Last administered on 03/04/18at 17:07; Start 03/02/18 at 16:00 Sodium Chloride 1,000 ml @ 1,000 mls/hr Q1H PRN IV hypotension; Start at 08:28; Stop 03/02/18 at 14:27; Status DC Albumin Human 200 ml @ 200 mls/hr 1X PRN PRN IV Hypotension; Start 03/02/18 at 08:30; Stop 03/02/18 at 14:29; Status DC Diphenhydramine HCl (Benadryl) 25 mg 1X PRN PRN IV ITCHING; Start 03/02/18 at 08:30; Stop 03/03/18 at 08:29; Status DC Diphenhydramine HCl (Benadryl) 25 mg 1X PRN PRN IV ITCHING; Start 03/02/18 at 08:30; Stop 03/03/18 at 08:29; Status DC Sodium Chloride 1,000 ml @ 400 mls/hr Q2H30M PRN IV PATENCY; Start 03/02/18 at 08:28; Stop 03/02/18 at 20:27; Status DC Info (PHARMACY MONITORING -- do not chart) 1 each PRN DAILY PRN MC SEE COMMENTS ; Start 03/02/18 at 08:30; Status UNV Info (PHARMACY MONITORING -- do not chart) 1 each PRN DAILY PRN MC SEE COMMENTS ; Start 03/02/18 at 08:30; Stop 03/04/18 at 14:03; Status DC Sodium Chloride 1,000 ml @ 1,000 mls/hr Q1H PRN IV hypotension; Start at 16:15; Stop 03/02/18 at 22:14; Status DC Sodium Chloride 1,000 ml @ 400 mls/hr Q2H30M PRN IV PATENCY; Start 03/02/18 at 16:15; Stop 03/03/18 at 04:14; Status DC Info (PHARMACY MONITORING -- do not chart) 1 each PRN DAILY PRN MC SEE COMMENTS ; Start 03/02/18 at 16:15; Status UNV Info (PHARMACY MONITORING -- do not chart) 1 each PRN DAILY PRN MC SEE COMMENTS ; Start 03/02/18 at 16:15; Status UNV Ceftriaxone Sodium (Rocephin) 1 gm Q24H IVP Last administered on 03/04/18at 17: 02; Start 03/03/18 at 16:00 Loperamide HCl (Imodium) 2 mg PRN Q4HRS PRN PO DIARRHEA Last administered on at 09:30; Start 03/03/18 at 15:15 Sodium Chloride 1,000 ml @ 1,000 mls/hr Q1H PRN IV hypotension; Start at 07:27; Stop 03/04/18 at 13:27; Status DC Albumin Human 200 ml @ 200 mls/hr 1X PRN PRN IV Hypotension; Start 03/04/18 at 07:30; Stop 03/04/18 at 13:29; Status DC Acetaminophen (Tylenol) 500 mg 1X PRN PRN PO MILD PAIN / TEMP; Start 03/04/18 at 07:30; Stop 03/05/18 at 07:29; Status DC Diphenhydramine HCl (Benadryl) 25 mg 1X PRN PRN IV ITCHING; Start 03/04/18 at 07:30; Stop 03/05/18 at 07:29; Status DC Diphenhydramine HCl (Benadryl) 25 mg 1X PRN PRN IV ITCHING; Start 03/04/18 at 07:30; Stop 03/05/18 at 07:29; Status DC Sodium Chloride 1,000 ml @ 400 mls/hr Q2H30M PRN IV PATENCY; Start 03/04/18 at 07:27; Stop 03/04/18 at 19:26; Status DC Info (PHARMACY MONITORING -- do not chart) 1 each PRN DAILY PRN MC SEE COMMENTS ; Start 03/04/18 at 07:30 Active Scripts Active Culturelle (Lactobacillus Rhamnosus Gg) 1 Each Cap.sprink 1 Cap PO BID 30 Days Colace (Docusate Sodium) 100 Mg Capsule 100 Mg PO PRN DAILY PRN 30 Days Loperamide (Loperamide Hcl) 2 Mg Capsule 2 Mg PO PRN Q4HRS PRN 30 Days Ondansetron Hcl 4 Mg/2 Ml Vial (Ondansetron Hcl/Pf) 4 Mg/2 Ml Vial 4 Mg IV PRN Q6HRS PRN 30 Days Heparin Sodium (Heparin Sodium,Porcine) 5,000 Unit/1 Ml Vial 5,000 Unit SQ Q8HRS 30 Days Vancomycin Hcl 1 Gm Vial 1 Each MC PRN DAILY PRN 14 Days [Ceftriaxone Sodium] 1 GM Vial 1 Gm IVP Q24H 14 Days FENTANYL 25mcg/hr (Fentanyl) 1 Each Patch.td72 1 Patch TD Q3DAYS 30 Days Atorvastatin Calcium 10 Mg Tablet 10 Mg PO QHS 30 Days Carvedilol (Carvedilol) 3.125 Mg Tablet 3.125 Mg PO BIDWMEALS Synthroid (Levothyroxine Sodium) 88 Mcg Tablet 88 Mcg PO DAILY06 30 Days Reported [place] 10-325 Tablet (Acetaminophen/Hydrocodone Bitart) 1 Each Tablet 1 Tab PO Q4 -6HRS Polyethylene Glycol 3350 17 Gm Powd.pack 17 Gm PO PRN DAILY PRN Sertraline Hcl 50 Mg Tablet 50 Mg PO QHS Sensipar (Cinacalcet Hcl) 30 Mg Tablet 1 Tab PO QHS Alayna-Oneil Rx Tablet (Vit B Cmplx 3/Fa/Vit C/Biotin) 1 Each Tablet 1 Each PO DAILY Cranberry Plus Vitamin C Sftgl (Cranberry Conc/Ascorbic Acid) 1 Each Capsule 1 Each PO QHS Alprazolam 0.25 Mg Tablet 1 Tab PO DAILY PRN Plavix (Clopidogrel Bisulfate) 75 Mg Tablet 75 Mg PO QHS Calcium Acetate 667 Mg Tablet 2 Tab PO TIDWMEALS Tylenol Extra Strength (Acetaminophen) 500 Mg Tablet 500 Mg PO PRN Q12HRS PRN Gabapentin (Gabapentin) 300 Mg Capsule 300 Mg PO QHS Benadryl Allergy (Diphenhydramine Hcl) 25 Mg Tablet 25 Mg PO PRN not given in the hospital Aspir 81 (Aspirin) 81 Mg Tablet.dr 81 Mg PO QHS Vitals/I & O Vital Sign - Last 24 Hours 03/04/18 03/04/18 03/04/18 03/04/18 15:00 17:06 19:00 20:00 Temp 98.3 98.4 98.3 98.4 Pulse 73 73 69 Resp 18 20 B/P (MAP) 137/39 (71) 169/76 110/53 (72) Pulse Ox 99 100 O2 Delivery Room Air Room Air Room Air 03/04/18 03/04/18 03/04/18 03/05/18 21:14 22:14 23:02 03:02 Temp 98.6 98.4 98.6 98.4 Pulse 65 68 Resp 18 18 20 20 B/P (MAP) 111/38 (62) 126/49 (74) Pulse Ox 100 96 96 97 O2 Delivery Room Air Room Air Room Air Room Air 03/05/18 03/05/18 03/05/18 03/05/18 04:08 07:00 08:00 09:30 Temp 98.4 98.4 Pulse 60 60 Resp 18 18 B/P (MAP) 121/47 (71) 121/47 Pulse Ox 97 100 O2 Delivery Room Air Room Air Room Air O2 Flow Rate 2.0 03/05/18 03/05/18 11:00 11:48 Temp 98.4 98.4 Pulse 63 Resp 18 B/P (MAP) 118/35 (62) Pulse Ox 100 100 O2 Delivery Room Air Room Air O2 Flow Rate 2.0 Intake and Output 03/04/18 03/04/18 03/05/18 15:00 23:00 07:00 Intake Total 400 ml 340 ml 240 ml Balance 400 ml 340 ml 240 ml SHARRON SMITH MD Mar 05, 2018 14:41
--- NOTE | 2018-03-05 14:42 | PDOC3 ---
Discharge Summary Visit Information Date of Admission: Feb 25, 2018 Date of Discharge: Mar 05, 2018 Admitting Diagnosis: Sepsis Final Diagnosis Problems Medical Problems: (1) Anemia Status: Acute (2) Generalized weakness Status: Acute (3) Hyperkalemia Status: Acute Brief Hospital Course Allergies Allergies Coded Allergies Type Severity Reaction Last Updated Verified ciprofloxacin Allergy Intermediate Rash 05/08/17 Yes I S O L A T I O N *CONTACT* Allergy Unknown 03/03/18 Yes morphine Adverse Reaction Severe makes her skin crawl 05/08/17 Yes oxycodone Adverse Reaction Severe makes her skin crawl 05/08/17 Yes adhesive Adverse Reaction Intermediate blisters 05/08/17 Yes Vital Signs Vital Signs Date Time Temp Pulse Resp B/P (MAP) Pulse Ox O2 Delivery O2 Flow Rate FiO2 03/05/18 11:48 100 Room Air 2.0 03/05/18 11:00 98.4 63 18 118/35 (62) 98.4 Lab Results Laboratory Tests Test 03/04/18 17:00 03/05/18 06:30 White Blood Count 5.8 x10^3/uL (4.0-11.0) 7.7 x10^3/uL (4.0-11.0) Red Blood Count 2.16 x10^6/uL (3.50-5.40) 2.45 x10^6/uL (3.50-5.40) Hemoglobin 6.7 g/dL (12.0-15.5) 7.3 g/dL (12.0-15.5) Hematocrit 20.4 % (36.0-47.0) 22.9 % (36.0-47.0) Mean Corpuscular Volume 95 fL (79-100) 94 fL (79-100) Mean Corpuscular Hemoglobin 31 pg (25-35) 30 pg (25-35) Mean Corpuscular Hemoglobin Concent 33 g/dL (31-37) 32 g/dL (31-37) Red Cell Distribution Width 21.0 % (11.5-14.5) 21.0 % (11.5-14.5) Platelet Count 142 x10^3/uL (140-400) 169 x10^3/uL (140-400) Neutrophils (%) (Auto) 67 % (31-73) 65 % (31-73) Lymphocytes (%) (Auto) 21 % (24-48) 22 % (24-48) Monocytes (%) (Auto) 9 % (0-9) 8 % (0-9) Eosinophils (%) (Auto) 3 % (0-3) 3 % (0-3) Basophils (%) (Auto) 1 % (0-3) 1 % (0-3) Neutrophils # (Auto) 3.9 x10^3uL (1.8-7.7) 5.0 x10^3uL (1.8-7.7) Lymphocytes # (Auto) 1.2 x10^3/uL (1.0-4.8) 1.7 x10^3/uL (1.0-4.8) Monocytes # (Auto) 0.5 x10^3/uL (0.0-1.1) 0.6 x10^3/uL (0.0-1.1) Eosinophils # (Auto) 0.1 x10^3/uL (0.0-0.7) 0.3 x10^3/uL (0.0-0.7) Basophils # (Auto) 0.1 x10^3/uL (0.0-0.2) 0.1 x10^3/uL (0.0-0.2) Sodium Level 142 mmol/L (136-145) 142 mmol/L (136-145) Potassium Level 4.2 mmol/L (3.5-5.1) 4.5 mmol/L (3.5-5.1) Chloride Level 106 mmol/L (98-107) 104 mmol/L (98-107) Carbon Dioxide Level 30 mmol/L (21-32) 31 mmol/L (21-32) Anion Gap 6 (6-14) 7 (6-14) Blood Urea Nitrogen 17 mg/dL (7-20) 19 mg/dL (7-20) Creatinine 4.2 mg/dL (0.6-1.0) 4.9 mg/dL (0.6-1.0) Estimated GFR (Cockcroft-Gault) 10.6 8.8 Glucose Level 148 mg/dL (70-99) 83 mg/dL (70-99) Calcium Level 6.2 mg/dL (8.5-10.1) 6.8 mg/dL (8.5-10.1) Laboratory Tests Test 03/04/18 17:00 03/05/18 06:30 White Blood Count 5.8 x10^3/uL (4.0-11.0) 7.7 x10^3/uL (4.0-11.0) Red Blood Count 2.16 x10^6/uL (3.50-5.40) 2.45 x10^6/uL (3.50-5.40) Hemoglobin 6.7 g/dL (12.0-15.5) 7.3 g/dL (12.0-15.5) Hematocrit 20.4 % (36.0-47.0) 22.9 % (36.0-47.0) Mean Corpuscular Volume 95 fL (79-100) 94 fL (79-100) Mean Corpuscular Hemoglobin 31 pg (25-35) 30 pg (25-35) Mean Corpuscular Hemoglobin Concent 33 g/dL (31-37) 32 g/dL (31-37) Red Cell Distribution Width 21.0 % (11.5-14.5) 21.0 % (11.5-14.5) Platelet Count 142 x10^3/uL (140-400) 169 x10^3/uL (140-400) Neutrophils (%) (Auto) 67 % (31-73) 65 % (31-73) Lymphocytes (%) (Auto) 21 % (24-48) 22 % (24-48) Monocytes (%) (Auto) 9 % (0-9) 8 % (0-9) Eosinophils (%) (Auto) 3 % (0-3) 3 % (0-3) Basophils (%) (Auto) 1 % (0-3) 1 % (0-3) Neutrophils # (Auto) 3.9 x10^3uL (1.8-7.7) 5.0 x10^3uL (1.8-7.7) Lymphocytes # (Auto) 1.2 x10^3/uL (1.0-4.8) 1.7 x10^3/uL (1.0-4.8) Monocytes # (Auto) 0.5 x10^3/uL (0.0-1.1) 0.6 x10^3/uL (0.0-1.1) Eosinophils # (Auto) 0.1 x10^3/uL (0.0-0.7) 0.3 x10^3/uL (0.0-0.7) Basophils # (Auto) 0.1 x10^3/uL (0.0-0.2) 0.1 x10^3/uL (0.0-0.2) Sodium Level 142 mmol/L (136-145) 142 mmol/L (136-145) Potassium Level 4.2 mmol/L (3.5-5.1) 4.5 mmol/L (3.5-5.1) Chloride Level 106 mmol/L (98-107) 104 mmol/L (98-107) Carbon Dioxide Level 30 mmol/L (21-32) 31 mmol/L (21-32) Anion Gap 6 (6-14) 7 (6-14) Blood Urea Nitrogen 17 mg/dL (7-20) 19 mg/dL (7-20) Creatinine 4.2 mg/dL (0.6-1.0) 4.9 mg/dL (0.6-1.0) Estimated GFR (Cockcroft-Gault) 10.6 8.8 Glucose Level 148 mg/dL (70-99) 83 mg/dL (70-99) Calcium Level 6.2 mg/dL (8.5-10.1) 6.8 mg/dL (8.5-10.1) Brief Hospital Course Ms. Glover is a 68 old [sex] who presented with [ ] Discharge Information Condition at Discharge: Stable Follow Up: Weeks (4) Disposition/Orders: D/C to Another Facility ([facility]) Scheduled Aspirin (Aspir 81) 81 Mg Tablet., 81 MG PO QHS for blood thinner, (Reported) Entered as Reported by: JOHN BROWN on 05/31/13 1353 Last Action: Continued on 02/25/182116 by ROLAND ELLIOTT MD Atorvastatin Calcium (Atorvastatin Calcium) 10 Mg Tablet, 10 MG PO QHS for 30 Days, #30 Prescribed by: SAVANNAH LOPEZ MD on 12/12/16 1213 Last Action: Continued on 02/27/18916 by SAVANNAH LOPEZ MD Calcium Acetate (Calcium Acetate) 667 Mg Tablet, 2 TAB PO TIDWMEALS for digestive, (Reported) Entered as Reported by: SHAQUILLE DA SILVA on 02/22/15 1743 Last Action: HELD on 02/27/18915 by SAVANNAH LOPEZ MD Carvedilol (Carvedilol ) 3.125 Mg Tablet, 3.125 MG PO BIDWMEALS, #60 Ref 2 Prescribed by: JARED BYRNES on 10/25/16 1448 Last Action: Continued on 02/25/182116 by ROLAND ELLIOTT MD Cinacalcet Hcl (Sensipar) 30 Mg Tablet, 1 TAB PO QHS, #30 Ref 11 (Reported) Entered as Reported by: TIFFANIE MACK on 11/11/161229 Last Action: Continued on 02/25/182116 by ROLAND ELLIOTT MD Clopidogrel Bisulfate (Plavix) 75 Mg Tablet, 75 MG PO QHS for TO PREVENT BLOOD CLOTS, #30 Ref 0 (Reported) Entered as Reported by: Red Painting on 10/21/16 1524 Last Action: Continued on 02/25/182116 by ROLAND ELLIOTT MD Cranberry Conc/Ascorbic Acid (Cranberry Plus Vitamin C Sftgl) 1 Each Capsule, 1 EACH PO QHS, (Reported) Entered as Reported by: TIFFANIE MACK on 11/11/161229 Last Action: HELD on 02/27/18915 by SAVANNAH LOPEZ MD Fentanyl (FENTANYL 25mcg/hr) 1 Each Patch.td72, 1 PATCH TD Q3DAYS for 30 Days, # 4 Prescribed by: TURNER ELISE on 08/23/17 1118 Last Action: HELD on 02/27/18915 by SAVANNAH LOPEZ MD Gabapentin (Gabapentin ) 300 Mg Capsule, 300 MG PO QHS, (Reported) Entered as Reported by: JOLENE YE on 10/02/14 0902 Last Action: Continued on 02/27/18916 by SAVANNAH LOPEZ MD Heparin Sodium,Porcine (Heparin Sodium) 5,000 Unit/1 Ml Vial, 5,000 UNIT SQ Q8HRS for DVT PPX for 30 Days, #90 Prescribed by: SHARRON SMITH MD on 03/05/18 1436 Hydrocodone/Apap 10-325 ([place] 10-325 Tablet) 1 Each Tablet, 1 TAB PO Q4-6HRS for pain, #40 (Reported) Entered as Reported by: CY REILLY on 02/11/181126 Last Action: Converted on 02/27/18916 by SAVANNAH LOPEZ MD Lactobacillus Rhamnosus Gg (Culturelle) 1 Each Cap.sprink, 1 CAP PO BID for Diarrhea for 30 Days, #60 Prescribed by: SHARRON SMITH MD on 03/05/18 1436 Levothyroxine Sodium (Synthroid) 88 Mcg Tablet, 88 MCG PO DAILY06 for hypothyroidism for 30 Days, #30 Prescribed by: SHARRON SMITH MD on 03/05/18 1436 Sertraline Hcl (Sertraline Hcl) 50 Mg Tablet, 50 MG PO QHS for ANTI-DEPRESSANT, Ref 0 (Reported) Entered as Reported by: TIFFANIE MACK on 11/11/16 123 Last Action: Continued on 02/27/18916 by SAVANNAH LOPEZ MD Vit B Cmplx 3/Fa/Vit C/Biotin (Alayna-Oneil Rx Tablet) 1 Each Tablet, 1 EACH PO DAILY, (Reported) Entered as Reported by: TIFFANIE MACK on 11/11/16 123 Last Action: Converted on 02/25/182116 by ROLAND ELLIOTT MD [Ceftriaxone Sodium] 1 GM VIAL, 1 GM IVP Q24H for 14 Days, #14 Prescribed by: SHARRON SMITH MD on 03/05/18 1436 Scheduled PRN Acetaminophen (Tylenol Extra Strength) 500 Mg Tablet, 500 MG PO PRN Q12HRS PRN for PAIN, (Reported) Entered as Reported by: SHAQUILLE DA SILVA on 02/22/15 1743 Last Action: HELD on 02/27/18915 by SAVANNAH LOPEZ MD Alprazolam (Alprazolam) 0.25 Mg Tablet, 1 TAB PO DAILY PRN for ANXIETY / AGITATION, #30 (Reported) Entered as Reported by: TIFFANIE MACK on 11/11/16 1230 Last Action: Continued on 02/27/18916 by SAVANNAH LOPEZ MD Diphenhydramine Hcl (Benadryl Allergy) 25 Mg Tablet, 25 MG PO for ALLERGIES, ( Reported) not given in the hospital Entered as Reported by: JOHNIvelisse BROWN on 05/31/13 1353 Last Action: HELD on 02/27/18915 by SAVANNAH LOPEZ MD Docusate Sodium (Colace) 100 Mg Capsule, 100 MG PO PRN DAILY PRN for hard stools for 30 Days, #30 Prescribed by: SHARRON SMITH MD on 03/05/18 1436 Loperamide Hcl (Loperamide) 2 Mg Capsule, 2 MG PO PRN Q4HRS PRN for DIARRHEA for 30 Days, #30 Prescribed by: SHARRON SMITH MD on 03/05/18 1436 Ondansetron Hcl/Pf (Ondansetron Hcl 4 Mg/2 Ml Vial) 4 Mg/2 Ml Vial, 4 MG IV PRN Q6HRS PRN for NAUSEA/VOMITING for 30 Days, #30 Prescribed by: SHARRON SMITH MD on 03/05/18 1436 Polyethylene Glycol 3350 (Polyethylene Glycol 3350) 17 Gm Powd.pack, 17 GM PO PRN DAILY PRN for CONSTIPATION, (Reported) Entered as Reported by: CY REILLY on 02/11/18 1003 Last Action: Converted on 02/25/182116 by ROLAND ELLIOTT MD Vancomycin Hcl (Vancomycin Hcl) 1 Gm Vial, 1 EACH MC PRN DAILY PRN for SEE COMMENTS for 14 Days, #14 Prescribed by: SHARRON SMITH MD on 03/05/18 Blake6 SHARRON SMITH MD Mar 05, 2018 14:42
[2018-03-05 15:00] VITALS: BP 104/55
== END 2018-03-05 16:30 | DRG 871 ==
LOC: ER 17:54 → 1 WEST ICU 21:30 → 5 NORTH 02-26 09:58
PROVIDERS: ADMIT Family Medicine; ATTEND Family Medicine
PROC: 5A1D70Z Performance of Urinary Filtration, Intermittent, Less than 6 Hours Per Day (ICD-10-PCS; 2018-02-26)
PROC: 5A1D70Z Performance of Urinary Filtration, Intermittent, Less than 6 Hours Per Day (ICD-10-PCS; 2018-02-27)
PROC: 05H533Z Insertion of Infusion Device into Right Subclavian Vein, Percutaneous Approach (ICD-10-PCS; principal; 2018-03-01)
PROC: 5A1D70Z Performance of Urinary Filtration, Intermittent, Less than 6 Hours Per Day (ICD-10-PCS; 2018-03-02)
PROC: 5A1D70Z Performance of Urinary Filtration, Intermittent, Less than 6 Hours Per Day (ICD-10-PCS; 2018-03-04)
DX: A41.9 Sepsis, unspecified organism (principal); N18.6 End stage renal disease; I50.33 Acute on chronic diastolic (congestive) heart failure; E43 Unspecified severe protein-calorie malnutrition; I21.A1 Myocardial infarction type 2; L03.115 Cellulitis of right lower limb; I13.2 Hypertensive heart and chronic kidney disease with heart failure and with stage 5 chronic kidney disease, or end stage renal disease; I47.2 Ventricular tachycardia; L97.319 Non-pressure chronic ulcer of right ankle with unspecified severity; I96 Gangrene, not elsewhere classified; Z66 Do not resuscitate; E11.22 Type 2 diabetes mellitus with diabetic chronic kidney disease; E11.51 Type 2 diabetes mellitus with diabetic peripheral angiopathy without gangrene; E11.42 Type 2 diabetes mellitus with diabetic polyneuropathy; E11.622 Type 2 diabetes mellitus with other skin ulcer; E87.5 Hyperkalemia; J44.9 Chronic obstructive pulmonary disease, unspecified; R65.20 Severe sepsis without septic shock; I25.10 Atherosclerotic heart disease of native coronary artery without angina pectoris; D64.9 Anemia, unspecified; E78.5 Hyperlipidemia, unspecified; F32.9 Major depressive disorder, single episode, unspecified; F17.210 Nicotine dependence, cigarettes, uncomplicated; Z51.5 Encounter for palliative care; E21.3 Hyperparathyroidism, unspecified; E66.9 Obesity, unspecified; E78.00 Pure hypercholesterolemia, unspecified; Z16.29 Resistance to other single specified antibiotic; Z90.49 Acquired absence of other specified parts of digestive tract; Z90.710 Acquired absence of both cervix and uterus; Z95.810 Presence of automatic (implantable) cardiac defibrillator; Z99.2 Dependence on renal dialysis; Z91.15 Patient's noncompliance with renal dialysis; Z91.19 Patient's noncompliance with other medical treatment and regimen; Z88.6 Allergy status to analgesic agent; Z88.1 Allergy status to other antibiotic agents; Z88.5 Allergy status to narcotic agent; Z82.49 Family history of ischemic heart disease and other diseases of the circulatory system; Z83.3 Family history of diabetes mellitus; Z95.5 Presence of coronary angioplasty implant and graft; Z68.28 Body mass index [BMI] 28.0-28.9, adult; Z91.048 Other nonmedicinal substance allergy status; Z87.440 Personal history of urinary (tract) infections; Z89.519 Acquired absence of unspecified leg below knee
CPT/HCPCS: 36415; 36569; 70450; 70551; 71045; 80048; 80053; 80202; 82550; 82607; 82962; 83735; 83880; 84100; 84439; 84443; 84481; 85007; 85025; 85610; 85730; 86706; 86850; 86900; 86901; 87071; 87075; 87186; 87340; 87493; 87641; 93005; 96374; 96375; J0610; J0696; J1815; J2001; J2405; J2543; J3370; J7040; J7042; 99291-25